=== PATIENT | male | born 1955 | race Caucasian/White ===

== ENCOUNTER 2017-05-25 21:43 | Emergency (ER) | payer OTHER ==
[~2017-05-25] VITALS: Ht 180.3 cm; Wt 84.0 kg
[2017-05-25 22:28] LABS: BASO % 0.4 % (0.0-1.0); EOS # 0.2 10^3/uL (0.0-0.50); EOS % 2.6 % (0.0-3.0); IMMATURE GRANULOCYTE % 0.3 % (0-0); LYMPH # 2.7 10^3/uL (1.5-4.5); LYMPH % 29.9 % (24.0-44.0); MEAN CORPUSCULAR HEMOGLOBIN 31.1 pg (27.0-33.0); MEAN CORPUSCULAR HGB CONC 34.1 g/dl (32.0-36.5); MEAN CORPUSCULAR VOLUME 91.3 fl (80.0-96.0); MONO # 0.8 10^3/uL (0.0-0.8); MONO % 8.9 % (0.0-5.0); NEUTROPHILS # 5.2 10^3/uL (1.8-7.7); NEUTROPHILS % 57.9 % (36.0-66.0); PLATELET COUNT, AUTOMATED 225 10^3/uL (150-450); RED CELL DISTRIBUTION WIDTH 13.4 % (11.5-14.5); WHITE BLOOD COUNT 8.9 10^3/uL (4.0-10.0)
[2017-05-25] MEDS ORDERED: NS 1,000 ML IV ONE (22:30)
[2017-05-25] MEDS ORDERED: ASPIRIN 325 MG TAB PO ONE (22:30)
[2017-05-25 22:31] LABS: INR 0.91
[2017-05-25 22:38] LABS: ANION GAP 11 MEQ/L (8-16); BLOOD UREA NITROGEN 10 MG/DL (7-18); CALCIUM LEVEL 8.4 MG/DL (8.5-10.1); CARBON DIOXIDE LEVEL 21 MEQ/L (21-32); CHLORIDE LEVEL 109 MEQ/L (98-107); CREATININE FOR GFR 0.71 MG/DL (0.70-1.30); GLOMERULAR FILTRATION RATE > 60.0 (>56); GLUCOSE, FASTING 183 MG/DL (70-105); POTASSIUM SERUM 4.1 MEQ/L (3.5-5.1); SODIUM LEVEL 141 MEQ/L (136-145)
[2017-05-26] MEDS ORDERED: METOPROLOL TART 25 MG TABLET PO ONE (02:00)
[2017-05-26 02:09] VITALS: BP 118/71
[2017-05-26 02:52] VITALS: BP 125/65
--- NOTE | 2017-05-26 07:08 | ECGEPIP ---
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
--- NOTE | 2017-05-26 07:09 | ECGEPIP ---
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
== END 2017-05-26 02:54 | disposition home or self-care (01) ==
LOC: M ED 21:43
DX: I48.2 Chronic atrial fibrillation (principal); F10.10 Alcohol abuse, uncomplicated; F17.200 Nicotine dependence, unspecified, uncomplicated; Z91.013 Allergy to seafood

== ENCOUNTER 2020-06-08 03:56 | Inpatient (IN) | payer OTHER ==
[~2020-06-08] VITALS: Ht 180.3 cm; Wt 82.5 kg
[2020-06-08] VITALS (16 sets, daily range): BP systolic 132–193; BP diastolic 65–90
[2020-06-08] MEDS ORDERED: ACET-683 PO (04:15)
[2020-06-08] MEDS ORDERED: VITMTA PO (04:35)
[2020-06-08] MEDS ORDERED: METF-839 PO (04:35)
[2020-06-08] MEDS ORDERED: IPRA0.00 NEB (04:35)
[2020-06-08] MEDS ORDERED: PROAAER10 INH (04:35)
[2020-06-08] MEDS ORDERED: PRED20TA PO (04:35)
[2020-06-08] MEDS ORDERED: ASPI-531 PO (04:35)
[2020-06-08] MEDS ORDERED: ATOR1TAB21 PO (04:35)
[2020-06-08] MEDS ORDERED: INCR1INH INH (04:35)
[2020-06-08] MEDS ORDERED: SYMB80INH INH (04:35)
[2020-06-08 04:45] LABS: BASO % 0.2 % (0.0-1.0); EOS # 0.1 10^3/uL (0.0-0.5); HEMATOCRIT 39.2 % (42.0-52.0); HEMOGLOBIN 12.5 g/dl (13.5-17.5); LYMPH # 2.6 10^3/uL (1.5-5.0); LYMPH % 19.2 % (24.0-44.0); MEAN CORPUSCULAR HEMOGLOBIN 28.6 pg (27.0-33.0); MEAN CORPUSCULAR HGB CONC 31.9 g/dl (32.0-36.5); MEAN CORPUSCULAR VOLUME 89.7 fl (80.0-96.0); MONO # 1.1 10^3/uL (0.0-0.8); NEUTROPHILS # 9.5 10^3/uL (1.5-8.5); NEUTROPHILS % 70.9 % (36.0-66.0); PLATELET COUNT, AUTOMATED 320 10^3/uL (150-450); RED BLOOD COUNT 4.37 10^6/uL (4.30-6.10); WHITE BLOOD COUNT 13.5 10^3/uL (4.0-10.0)
[2020-06-08] MEDS ORDERED: methylPREDNISolone 125MG 2ML VIAL IV ONE (04:45)
[2020-06-08 05:00] LABS: INR 0.96; PARTIAL THROMBOPLASTIN TIME 26.6 SECONDS (24.2-38.5)
[2020-06-08 05:20] LABS: BLOOD UREA NITROGEN 17 MG/DL (7-18); CALCIUM LEVEL 9.3 MG/DL (8.8-10.2); CARBON DIOXIDE LEVEL 26 MEQ/L (21-32); CHLORIDE LEVEL 104 MEQ/L (98-107); CK-MB VALUE MASS 3.2 NG/ML (<3.6); CPK CREATINE PHOSPHOKINASE 51 U/L (39-308); FREE T4 1.34 NG/DL (0.76-1.46); GLOMERULAR FILTRATION RATE > 60.0 (>49); GLUCOSE, FASTING 111 MG/DL (70-100); MAGNESIUM LEVEL 2.2 MG/DL (1.8-2.4); MB/CK RELATIVE INDEX 6.27 (< OR =4); NT-PRO BNP 327 PG/ML (<125); POTASSIUM SERUM 4.1 MEQ/L (3.5-5.1); SODIUM LEVEL 139 MEQ/L (136-145); TROPONIN I < 0.02 NG/ML (< 0.10)
[2020-06-08 05:25] LABS: RSV AMPLIFICATION NEGATIVE (NEGATIVE)
--- NOTE | 2020-06-08 05:44 | ECGEPIP ---
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
[2020-06-08] MEDS: COMBIVENT RESPIMAT 100-20MCG INHALER 4GM INH SCH ×3 (05:55→07:18)
--- NOTE | 2020-06-08 07:03 | REPVR ---
PROCEDURE INFORMATION: Exam: XR Chest, 1 View Exam date and time: 06/08/2020 6:00 AM Age: 64 years old Clinical indication: Chest pain; Type not specified TECHNIQUE: Imaging protocol: XR of the chest Views: 1 view. COMPARISON: CR CHEST 2 VIEW 04/20/2017 11:53 AM FINDINGS: Lungs: Extensive right-sided airspace disease and pleural effusion obscuring the right heart border and right hemidiaphragm. COPD and interstitial prominence. Heart/Mediastinum: No cardiomegaly. Bones/joints: Cervical spine fusion. Degenerative change. IMPRESSION: Extensive right-sided airspace disease and pleural effusion obscuring the right heart border and right hemidiaphragm. Electronically signed by: Sergey So On 06/08/2020 07:03:42 AM
[2020-06-08] MEDS ORDERED: ISOVUE-370 76% 100ML VIAL As Ordered ONE (07:30)
--- NOTE | 2020-06-08 08:10 | REPVR ---
PROCEDURE INFORMATION: Exam: CT Angiography Chest With Contrast Exam date and time: 06/08/2020 6:52 AM Age: 64 years old Clinical indication: Shortness of breath; Chest pain; Additional info: Chest pain, SOB TECHNIQUE: Imaging protocol: Computed tomographic angiography of the chest with intravenous contrast. 3D rendering (Not supervised by radiologist): MIP and/or 3D reconstructed images were created by the technologist. Radiation optimization: All CT scans at this facility use at least one of these dose optimization techniques: automated exposure control; mA and/or kV adjustment per patient size (includes targeted exams where dose is matched to clinical indication); or iterative reconstruction. Contrast material: ISOVUE 370; Contrast volume: 75 ml; Contrast route: INTRAVENOUS (IV); COMPARISON: CR PORTABLE CHEST X-RAY 06/08/2020 6:04 AM FINDINGS: The examination performed is mildly degraded by motion artifact. Pulmonary arteries: Multiple left-sided pulmonary emboli, most conspicuously visualized in the proximal left lower lobe pulmonary artery. Aorta: Normal caliber of the thoracic aorta. Lungs: COPD, interstitial prominence, chronic granulomatous disease, and parenchymal stranding. Asymmetric right-sided airspace disease, disproportionately lower lobe in distribution. Pleural space: Large right pleural effusion. Heart: No cardiomegaly or right ventricular strain at this time. Lymph nodes: Subcentimeter lymph nodes. Upper abdomen: Questionable wall thickening in the nondistended stomach. Diverticula. Bones/joints: Cervical spine fusion. Degenerative change. IMPRESSION: 1. Multiple left-sided pulmonary emboli, most conspicuously visualized in the proximal left lower lobe pulmonary artery. 2. COPD and asymmetric right-sided airspace disease, disproportionately lower lobe in distribution. 3. Large right pleural effusion. 4. Additional findings as described above. The aforementioned findings initiated a critical results communication pathway. An addendum will be issued at the time of clincian notification. Electronically signed by: Sergey So On 06/08/2020 08:10:34 AM
[2020-06-08] MEDS ORDERED: HEPARIN DRIP 25,000 UNITS in IV 1 EA IV SCH (08:20)
[2020-06-08] MEDS ORDERED: HEPARIN SOD (PORCINE) 5000UNITS/ML 1ML VIAL/SYRINGE IV ONE (08:30)
[2020-06-08] MEDS ORDERED: LISI-542 PO (08:33)
[2020-06-08] MEDS ORDERED: SYMB16INH INH (08:33)
[2020-06-08] MEDS ORDERED: PRED10TA2 PO (08:33)
[2020-06-08] MEDS ORDERED: KCL 20MEQ IN D5/NS 1000ML 1,000 ML IV SCH (08:59)
[2020-06-08] MEDS: SYMBICORT 160/4.5MCG INHALER 6GM INH SCH ×2 (09:00→19:42)
[2020-06-08] MEDS ORDERED: PERCOCET 5MG/325MG TAB PO PRN (09:00)
[2020-06-08] MEDS ORDERED: NORCO, ANEXSIA 5/325MG TABLET (HYDROcodone/ACETAMINOPHEN) PO PRN (09:00)
[2020-06-08] MEDS: DOCUSATE SODIUM 100MG CAPSULE PO SCH ×2 (09:00→21:25)
[2020-06-08] MEDS ORDERED: LEVALBUTEROL 1.25 MG/0.5 ML CONCENTRATE NEB NEB PRN (09:00)
[2020-06-08] MEDS: MOM 30ML SUSPENSION UDC PO SCH (09:00)
[2020-06-08] MEDS ORDERED: ACETAMINOPHEN TAB 650MG DOSE (2X325MG) PO PRN (09:00)
[2020-06-08] MEDS ORDERED: BISACODYL 10 MG SUPP PR PRN (09:00)
[2020-06-08] MEDS ORDERED: ONDANSETRON 4MG/2ML VIAL IV PRN (09:00)
[2020-06-08] MEDS ORDERED: IPRATROPIUM 0.5MG/ALBUTEROL 2.5MG INH SOL UD 3ML (DUONEB) NEB PRN (09:15)
[2020-06-08] MEDS ORDERED: DEXTROSE 50% 50 ML SYRINGE IV PRN (09:15)
[2020-06-08] MEDS ORDERED: GLUCAGON INJ 1MG VIAL SC PRN (09:15)
[2020-06-08] MEDS ORDERED: GLUCOSE 4GM CHEW TABLET PO PRN (09:15)
[2020-06-08] MEDS ORDERED: ALBUTEROL 90 MCG/ACT 8GM HFA INHALER INH PRN (09:15)
[2020-06-08] MEDS ORDERED: ACETAMINOPHEN TAB 650MG DOSE (2X325MG) PO SCH (09:15)
[2020-06-08 09:45] LABS: ALBUMIN 3.2 GM/DL (3.2-5.2); ALT/SGPT 32 U/L (12-78); BILIRUBIN,TOTAL 0.6 MG/DL (0.2-1.0); CHOLESTEROL LEVEL 186 MG/DL (< 200); LDH LACTATE DEHYDROGENASE 165 U/L (87-241); PHOSPHORUS LEVEL 3.6 MG/DL (2.5-4.9); TOTAL PROTEIN 6.9 GM/DL (6.4-8.2); TRIGLYCERIDES LEVEL 173 MG/DL (<150)
[2020-06-08] MEDS ORDERED: flumazeniL 0.5 MG/5 ML VIAL As Ordered ONE (10:15)
[2020-06-08] MEDS ORDERED: MIDAZOLAM INJ 2MG/2ML VIAL (J2250 PER 1MG) As Ordered ONE (10:15)
[2020-06-08] MEDS ORDERED: LIDOCAINE 1% MDV 20ML VIAL As Ordered ONE (10:16)
[2020-06-08 10:44] LABS: ABG BASE EXCESS 0.9 (-2.0-2.0); ABG HCO3 23.7 MEQ/L (22.0-26.0); ABG O2 SATURATION 92.3 % (95.0-99.0); ABG PARTIAL PRESSURE CO2 32.6 mmHg (35.0-45.0); ABG PARTIAL PRESSURE O2 60.4 mmHg (75.0-100.0); ABG STANDARD HCO3 25.1 MEQ/L (22.0-26.0); ABG TOTAL CO2 24.7 MEQ/L (23.0-31.0); ABG pH (ARTERIAL) 7.479 UNITS (7.350-7.450)
[2020-06-08] MEDS: HumaLOG INSULIN (NovoLOG) PER UNIT SC SCH ×3 (11:37→21:00)
[2020-06-08] MEDS: ASPIRIN 81 MG ENTERIC TAB PO SCH (11:57)
[2020-06-08] MEDS: lisinopriL 5 MG TAB PO SCH (11:58)
[2020-06-08] MEDS: MULTIVITAMINS/MINERALS THERAP 1 TAB PO SCH (11:58)
[2020-06-08] MEDS: ATORVASTATIN 20 MG TAB PO SCH (11:58)
[2020-06-08] MEDS: PANTOPRAZOLE 40MG TAB (PROTONIX) PO SCH (11:58)
--- NOTE | 2020-06-08 12:49 | HPEPDOC ---
General Date of Admission Jun 08, 2020 at 09:17 Date of Service: Jun 08, 2020 Attending Physician: DESTINEY LAUGHLIN DO Chief Complaint The patient is a 64-year-old male admitted with a reason for visit of Pleural Effusion,Rt,Pulmonary Embolism. Source: Patient, RN/MD History of Present Illness Mr. Ratliff is a 64 year old male with COPD and right lung nodule who is here for dyspnea 2/2 large right pleural effusion and multiple left sided pulmonary embol i. He tells me that about six weeks ago, he started to have dyspnea which progressively worsened. He saw his account manager sales representative last Monday and were planning to do a biopsy of his right lung nodule. Prior to doing this procedure, he wanted the patient's respiratory status to be better per patient report. Patient was on Budesonide/Formoterol, Umeclidinium, and a prednisone taper (40mg qD and taper by 10mg every 4 days starting on 06/01/2020. He will start 20mg qD tomorrow). His breathing did not improve and he came into the ED. While in the ED, he required 4L of NC to maintain saturation of 89. He was given solumedrol and duonebs. CTA demonstrated a large right pleural effusion and left pulmonary embolus. Dr. Bethea, CT surgery, was contacted. The plan is to start the heparin drip now. Then when ready for right chest tube to hold the heparin drip for the procedure. Otherwise, when I saw the patient, he was feeling dyspneic. He had a dry cough, but suspects it was from the NC. He reported right chest, neck, and side pain which is suspected to be from the pleural effusion. Patient will be admitted for acute hypoxic respiratory failure secondary to an acute large right pleural effusion and acute left pulmonary embolism Home Medications Scheduled Aspirin (Aspirin EC) 81 Mg Tablet.dr, 81 MG PO DAILY, (Reported) Atorvastatin Calcium (Atorvastatin Calcium) 20 Mg Tablet, 20 MG PO DAILY, (Reported) Budesonide/Formoterol (Symbicort 160-4.5 Mcg Inhaler) 6 Gm Hfa.aer.ad, 2 PUFF INH BID, (Reported) Lisinopril (Lisinopril) 5 Mg Tablet, 5 MG PO DAILY, (Reported) Metformin HCl (Metformin HCl) 500 Mg Tablet, 500 MG PO DAILY, (Reported) Multivitamins (Thera M Plus Tablet) 1 Each Tablet, 1 TAB PO DAILY, (Reported) Prednisone (Prednisone) 10 Mg Tablet, 30 MG PO DAILY, (Reported) TAPER DOSE STARTED 06/01/20 - 40MG DAILY x 4 DAYS, 30MG DAILY X 4 DAYS, 20MG DAILY X 4 DAYS, 10MG DAILY X 4 DAYS - DUE TO BEGIN 20MG ON 06/09/20 Umeclidinium [place] (Incruse Ellipta) 62.5 Mcg Blst.w.dev, 1 PUFF INH DAILY, (Reported) Scheduled PRN Acetaminophen (Acetaminophen) 500 Mg Tablet, 1,000 MG PO Q6H PRN for PAIN, (Reported) Albuterol Sulfate (Proair Hfa) 8.5 Gm Hfa.aer.ad, 2 PUFF INH Q6H PRN for SHORTNESS OF BREATH, (Reported) Ipratropium/Albuterol Sulfate (Iprat-Albut 0.5-3(2.5) mg/3 ml) 3 Ml Ampul.neb, 1 VIAL NEB QID PRN for SHORTNESS OF BREATH, (Reported) Allergies Coded Allergies: shellfish derived (Verified Allergy, Intermediate, hives, 06/08/20) Past Medical History Medical History 1. Diabetes mellitus type 2 2. COPD 3. Atrial fibrillation Surgical History 1. Neck surgery (cage) 2. Left shoulder surgery 3. Left carpal tunnel 4. Cataracts Family History Father: at 78 from [place] Mother: at 84 from brain aneurysm Social History * Smoker: former Smoker (Quit smoking 1.5 years ago. <1 PPD, Smoked for about 17 years) Alcohol: occationally (About 12 beers a week, last drink was 4 days ago) Drugs: denies A-FIB/CHADSVASC A-FIB History Current/History of A-Fib/PAF?: Yes Current PO Anticoag Therapy: No (On aspirin) Age/Risk Factor Scoring CHADSVASC: CHADSVASC Response (Comments) Value Age Risk Factor Age < 65 years old 0 Gender Risk Factor Male 0 Hx of CHF No 0 Hx of HTN No 0 Hx of Stroke/TIA/or VTE No 0 Hx of Diabetes Yes 1 Hx of Vascular Disease No 0 Total 1 Treatment Treatment ordered: Other (Heparin for PE) Other anticoagulant ordered: IV Heparin for PE Review of Systems Constitutional: Denies: Chills, Fever Eyes: Denies: Pain ENT: Denies: Sore Throat Skin: Denies: Rash Pulmonary: Reports: Dyspnea, Cough (dry) Cardiovascular: Reports: Chest Pain (right sided) Gastrointestinal: Reports: Constipation (Last BM yesterday); Denies: Nausea, Abdominal Pain Genitourinary: Denies: Dysuria Hematologic: Denies: Bruising Endocrine: Denies: Polydipsia, Polyphagia (eating less) Neurological: Denies: Weakness Physical Examination General Exam: Positive: Alert, Cooperative Eye Exam: Positive: EOMI; Negative: Sclera icteric ENT Exam: Positive: Tongue Midline Neck Exam: Positive: Supple Chest Exam: Positive: Other (Absent in the right lower lung, otherwise clear on the left lung) Heart Exam: Positive: Rate Normal, Regular Rhythm Abdomen Exam: Positive: Normal bowel sounds, Soft; Negative: Tenderness Extremity Exam: Negative: Edema Skin Exam: Positive: Nl turgor and temperature Neuro Exam: Positive: Cranial Nerves 3-12 NL Psych Exam: Positive: Mental status NL, Mood NL Vital Signs Vital Signs Date Time Temp Pulse Resp B/P (MAP) Pulse Ox O2 Delivery O2 Flow Rate FiO2 06/08/20 10:30 97.7 148/78 (101) 06/08/20 10:24 84 91 06/08/20 09:09 22 Nasal Cannula 4.0 Laboratory Data Labs 24H Laboratory Tests 2 06/08/20 04:28: Coronavirus (COVID-19)(PCR) NEGATIVE, Influenza Type A (RT-PCR) NEGATIVE, Influenza Type B (RT-PCR) NEGATIVE, Respiratory Syncytial Virus (PCR) NEGATIVE 06/08/20 04:29: Immature Granulocyte % (Auto) 0.7, Neutrophils (%) (Auto) 70.9H, Lymphocytes (%) (Auto) 19.2L, Monocytes (%) (Auto) 8.0H, Eosinophils (%) (Auto) 1.0, Basophils (%) (Auto) 0.2, Neutrophils # (Auto) 9.5H, Lymphocytes # (Auto) 2.6, Monocytes # (Auto) 1.1H, Eosinophils # (Auto) 0.1, Basophils # (Auto) 0.0, Nucleated Red B lood Cells % (auto) 0.0, Prothrombin Time 13.0, Prothromb Time International Ratio 0.96, Activated Partial Thromboplast Time 26.6, Anion Gap 9, Glomerular Filtration Rate > 60.0, Calcium Level 9.3, Phosphorus Level 3.6, Magnesium Level 2.2, Total Bilirubin 0.6, Aspartate Amino Transf (AST/SGOT) 9, Alanine Aminotransferase (ALT/SGPT) 32, Alkaline Phosphatase 76, Lactate Dehydrogenase 165, Total Creatine Kinase 51, Creatine Kinase MB 3.2, Creatine Kinase MB Relative Index 6.27H, Troponin I < 0.02, QU-Ign-E-Type Natriuretic Peptide 327H, Total Protein 6.9, Albumin 3.2, Albumin/Globulin Ratio 0.9, Triglycerides Level 173H, Cholesterol Level 186, Thyroid Stimulating Hormone (TSH) 2.700, Free Thyr oxine 1.34 06/08/20 10:23: Blood Gas Bicarbonate Standard 25.1, Arterial Blood pH 7.479H, Arterial Blood Partial Pressure CO2 32.6L, Arterial Blood Partial Pressure O2 60.4L, Arterial Blood Total CO2 24.7, Arterial Blood HCO3 23.7, Arterial Blood Base Excess 0.9, Arterial Blood Oxygen Saturation 92.3L CBC/BMP Laboratory Tests 06/08/20 04:29 Assessment/Plan Mr. Ratliff is a 64 year old male with COPD and right lung nodule who is here for dyspnea 2/2 large right pleural effusion and multiple left sided pulmonary emboli. Dr. Bethea, CT surgery has been contacted and consulted. We will treat the left sided pulmonary emboli with IV heparin drip as he will be having a procedure. Planning for right thoracentesis for large pleural effusion today. Plan / VTE VTE Prophylaxis Ordered?: Yes Plan Plan 1. Acute hypoxic respiratory failure -Requiring 4L of NC -Difficulty completing sentences -Secondary to large right pleural effusion and left pulmonary embolus 2. Large right pleural effusion -History of smoking with right lung nodule -CT surgery following, recommendations appreciated -Planing for thoracentesis today -Suspecting malignant related with history of smoking and right lung nodule 3. Multiple left-sided pulmonary emboli -Suspecting malignancy as the cause -IV heparin at this time due to planned procedure 4. COPD -Stable, no wheezing at this time -He was placed on a steroid taper on 06/01/2020. Start at 40mg qD and taper by 10mg every 4 days. Tomorrow, he will start on 20mg qD. -Continue to taper prednisone off -Continue inhalers and rescue inhaler 5. Right lung nodule -Followed by Dr. Walker outpatient 6. Diabetes mellitus -Hold metformin -Insulin sliding scale 7. Hypertension -Continue Lisinopril 8. Paroxysmal atrial fibrillation -[id number] score of 1 -He follows with cardiology outpatient. Patient reports that he did have discussion about anticoagulation and decided to do aspirin since he has a [id number] score of 1. He is aware that the risk of atrial fibrillation is an embolic stoke. -Not in atrial fibrillation at this time. He says he has been cardioverted out of atrial fibrillation 9. DVT ppx -On IV heparin per PE protocol DESTINEY LAUGHLIN DO Jun 08, 2020 11:56
[2020-06-08] MEDS ORDERED: LIDOCAINE 1% MDV 20ML VIAL SC ONE (13:15)
[2020-06-08] MEDS ORDERED: MIDAZOLAM INJ 2MG/2ML VIAL (J2250 PER 1MG) IV ONE ×3 (13:20→14:00)
[2020-06-08] MEDS: KETOROLAC 30 MG/ML 1ML VIAL IV SCH ×2 (13:40→21:25)
--- NOTE | 2020-06-08 14:00 | REP ---
INDICATION: s/p chest tube. COMPARISON: 06/08/2020, 6:05 a.m.. TECHNIQUE: Single frontal portable view of the chest is performed. FINDINGS: A right chest tube is noted inferiorly. The right pleural effusion has essentially resolved. Patchy parenchymal opacities are seen in the right lung base, improved and likely representing mild residual atelectasis/infiltrate. Left lung is unchanged in appearance. Heart appears to be upper limits of normal in size. IMPRESSION: Placement of right chest tube with previously noted right pleural effusion is centrally resolved. Mild residual right base atelectasis/infiltrate. No pneumothorax. <Electronically signed by Jhoan Reed > 06/08/20 [id number]
[2020-06-08] MEDS: PERCOCET 5MG/325MG TAB PO PRN ×2 (14:14→21:28)
[2020-06-08 14:18] LABS: PH BODY FLUID 7.599 UNITS (NOT ESTABLISHED); SOURCE, BODY FLUID pH PLEURAL
[2020-06-08 14:25] LABS: APPEARANCE, BODY FLUID HAZY (CLEAR); PLEURAL FL COLOR YELLOW (COLORLESS); SOURCE, BODY FLUID PLEURAL
[2020-06-08] MEDS ORDERED: SLF 3 ML SYR IV PRN (14:30)
[2020-06-08 14:58] LABS: AMYLASE, BODY FLUID 52 U/L (NOT ESTABLISHED); CHOLESTEROL, BODY FLUID 92 MG/DL (NOT ESTABLISHED); LDH, BODY FLUID 399 U/L (NOT ESTABLISHED); SOURCE, BODY FLUID ALBUMIN PLEURAL; SOURCE, BODY FLUID AMYLASE PLEURAL; SOURCE, BODY FLUID CHOL PLEURAL; SOURCE, BODY FLUID GLUCOSE PLEURAL; SOURCE, BODY FLUID LDH PLEURAL; SOURCE, BODY FLUID TOT PROTEIN PLEURAL; SOURCE, BODY FLUID TRIG PLEURAL; TOTAL PROTEIN, BODY FLUID 4.9 G/DL (NOT ESTABLISHED); TRIGLYCERIDE, BODY FLUID 46 MG/DL (NOT ESTABLISHED)
[2020-06-08] MEDS: LEVALBUTEROL 1.25 MG/0.5 ML CONCENTRATE NEB NEB SCH ×2 (15:39→19:42)
--- NOTE | 2020-06-08 16:02 | CR ---
CONSULTATION DATE: 06/08/2020 REASON FOR CONSULTATION: The patient is seen at the request of Dr. George in the emergency room from the hospital service for shortness of breath and a large pleural effusion. HISTORY OF PRESENT ILLNESS: The patient is a 64-year-old white male whose acute story starts yesterday when he was shoveling some snow and all of a sudden became short of breath, gasping for air with accompanying chest pain on the right side. He felt his heart racing. His story actually starts about four weeks ago when he noticed right-sided chest pain, which was dull and nagging, proceeding to a more intense type ache. He does state that he fell and thought that he had broken some ribs and therefore, attributed his pain to that. That was, however, about four months ago. He has also complained of increasing shortness of breath slowly coming on over the past four weeks with orthopnea. He denies cough or sputum production. There has been no hemoptysis. There is no fever, chills, or sweats. There are no night sweats. He has had a decrease in appetite and has lost about 20 pounds in the last four weeks. There is no actual dysphagia, however. He denies peripheral edema. He was put on oxygen about four weeks ago by his primary care physician, Dr. Beard. He was seen by Dr. Amaro of pulmonology on 06/01/2020, where he was noted to have a spiculated right upper lobe mass. PAST MEDICAL HISTORY: 1. Diabetes. 2. Hypertension. 3. COPD. 4. Remote history of atrial fibrillation not on anticoagulants. PAST SURGICAL HISTORY: 1. Neck surgery with a cage. 2. Cataract repair. TRAVEL HISTORY: He has traveled to [place] and all over the 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 EXPOSURES: He has a mixed breed dog with chickens and goats. He has had chickens for about four years. Occasionally he needs to clear the chicken coops. There is no exposure to tuberculosis that he knows of. 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 HABITS: He is now a reformed smoker having stopped in 2019. He used to, however, smoke one pack per day of [employer]. He drinks about 12 beers a week and denies illicit drugs. FAMILY HISTORY: Not pertinent to the acute situation. He does have multiple family members with diabetes and asthma. REVIEW OF SYSTEMS: Constitutional: See HPI. Without fever, chills, sweats, or night sweats. He does have a 20 pound weight loss. Eyes: Without diplopia, without amaurosis fugax, and without prior jaundice. Nose: Has had epistaxis occasionally with his oxygen. Mouth: Has upper and lower dentures. Respiratory: See HPI. Cardiac: See HPI. Denies prior myocardial infarction or intermittent claudication. Has the above history of atrial fibrillation about five years ago. GI: Without nausea, vomiting, diarrhea, constipation, melena, hematochezia, abdominal pain, or hematemesis. : Without dysuria, hematuria, or prior renal stones. Neurologic: Without paresthesias, paralysis, or prior seizures. Psychiatric: Without pathological anxieties, depressions, or psychosis. Endocrine: With diabetes. Without thyroid disease. Hematologic: Without prolonged bleeding times. PHYSICAL EXAMINATION: GENERAL: Well-developed and well-nourished white male in mild distress with shortness of breath and pain. VITAL SIGNS: Temperature 98.9, pulse 88 with a regular rate and rhythm in sinus rhythm. Respiratory rate of 24 without the use of accessory muscles. He was 91% saturated on 4 liters nasal cannula and his blood pressure is ranging between 135/66. HEENT: Eyes with pupils equal, round, reactive to light. Extraocular movements intact. Sclerae nonicteric. Head is normocephalic. Nose without deformity. Mouth shows the mucous membranes to be pink and moist. Lips and gums without lesions. There is no thrush. Dentures are in place. NECK: Supple. There is no jugular venous distention (JVD). No subcutaneous emphysema. Trachea is midline. There is no thyromegaly or lymphadenopathy. He has 2+ carotid upstrokes without bruits. LUNGS: Show markedly decreased breath sounds with a dull percussion note on the right side. He has E:A egophony on the right side. The left lung shows normal vesicular sounds. Percussion note is full the diaphragm on the left. CARDIAC: Without murmurs, clicks, gallops, or rubs. I cannot feel his PMI. S1 and S2 are normal. ABDOMEN: Soft and nontender. Bowel sounds are positive. There is no hepatomegaly. No CVA tenderness. EXTREMITIES: Show no pretibial edema. No calf tenderness. No differential swelling of the upper extremities. SKIN: Warm, dry, and perfused without cyanosis or mottling, including that of the nail beds and knees. NEUROLOGIC: Shows II through XII intact. Normal gross motor, gross sensation intact. Gait is not tested. PSYCHIATRIC: Shows him to be awake, alert, and oriented x3 with appropriate mood and affect and conversational. DIAGNOSTIC STUDIES: His white count is 13.5 with a hemoglobin and hematocrit of 12.5 and 39.2 respectively with a platelet count of 320,000. Differential shows 70% neutrophils, 19% lymphocytes, and 8% monocytes. There are no immature forms or toxic granulations. Chemistries show normal electrolytes with a BUN and creatinine of 17 and 0.8. Glucose is 11 with a calcium of 9.3. Magnesium is 2.2. Albumin is 3.2 with a normal AST and ALT of 9 and 32 respectively. Troponin is less than 0.02 and his TSH is 2.7. His PT/INR is 13.0 and 0.96 respectively with a PTT of 26.6 seconds. He is COVID negative. His chest x-ray shows an opacity in the right lower hemithorax consistent with fluid. This was done portably. His CT scan done under angiographic protocol confirms a large right pleural effusion. There also is a spiculated lung mass in the right upper lobe, which measures 3 x 1.5 cm. The remainder of the lung is compressed, but the mass is quite distinct from the compression. There are air bronchograms. Most significantly, however, he has multiple left-sided pulmonary emboli. It was seen in both the upper and lower lobes and scattered throughout the lower lobe. I do not see anything on the right; however, most of the arteries are compressed. There is a slight shift to the left in the mediastinum. There is no pericardial effusion. The liver looks to be normal with smooth edges. Adrenals have a normal configuration as does his pancreas. I see no other masses in his liver. I see no rib fractures new or old on the CT scan on the right side. Neither are there rib fractures on the left side new or old. IMPRESSION: 1. Pleural effusion of unknown origin possibly malignant. 2. Multiple pulmonary emboli. 3. Diabetes. 4. Hypertension. 5. Chronic obstructive pulmonary disease (COPD). PLAN AND DISCUSSION: It should also be noted I do not see mediastinal lymphadenopathy on the CT. His lung blackmon show extensive emphysematous changes. I will immediately drain him. He has already been started on anticoagulation of a heparin drip per my request. I will stop the heparin drip, then place a chest tube, and then restart the heparin drip. I suspect there is at least 2 to 2.5 liters in his chest. This will be sent for all the requisite studies to include cytologies, hematologies, bacteriologies, and chemistries. We will need to be aware of the possibility of ensuing post expansion pulmonary edema and he may get worse before he gets better. I have explained to him that he could even need intubating temporarily. According to Dr. Amaro's note he was due to undertake a PET scan, which has not yet been done.
[2020-06-08] MEDS ORDERED: HEPARIN SOD (PORCINE) 5000UNITS/ML 1ML VIAL/SYRINGE IV PRN (16:15)
--- NOTE | 2020-06-08 16:16 | RO ---
OPERATIVE NOTE DATE OF OPERATION: 06/08/2020 PREPROCEDURE DIAGNOSIS: Right pleural effusion. PREPROCEDURE DIAGNOSIS: Right pleural effusion. SURGEON: Ousmane Bethea M.D. PROCEDURE: Insertion of right lateral chest tube under moderate sedation. FINDINGS: Chest tube eluded over 3 liters of serous fluid. This was sent for the requisite studies of chemistries, cytologies, hematologies, and bacteriologies. DESCRIPTION OF PROCEDURE: Under satisfactory moderate sedation eventually achieved with 6 mg of Versed, the patient was prepped and draped in the usual sterile fashion. An incision was made in the mix axillary line in and around the sixth intercostal space. A tunnel was created in the chest without after infiltrating the skin subcutaneous tissue, muscles, and pleura with 1% Lidocaine. A #24 chest tube was placed without difficulty and secured to the chest wall with a #2 Tyvek suture. The patient tolerated the procedure well and a chest x-ray is pending. INCOMPLETE /verified/ml MTDD
[2020-06-08] MEDS: SLF 3 ML SYR IV SCH (21:26)
[2020-06-09] VITALS: BP 129/67
[2020-06-09] MEDS: LEVALBUTEROL 1.25 MG/0.5 ML CONCENTRATE NEB NEB SCH ×4 (02:01→20:00)
[2020-06-09] MEDS: KETOROLAC 30 MG/ML 1ML VIAL IV SCH ×4 (03:13→20:57)
[2020-06-09 04:00] VITALS: BP 134/73
[2020-06-09 04:58] LABS: BASO % 0.2 % (0.0-1.0); EOS % 0.1 % (0.0-3.0); HEMATOCRIT 40.7 % (42.0-52.0); HEMOGLOBIN 13.5 g/dl (13.5-17.5); LYMPH # 1.6 10^3/uL (1.5-5.0); LYMPH % 9.1 % (24.0-44.0); MEAN CORPUSCULAR HEMOGLOBIN 29.7 pg (27.0-33.0); MEAN CORPUSCULAR HGB CONC 33.2 g/dl (32.0-36.5); MEAN CORPUSCULAR VOLUME 89.5 fl (80.0-96.0); MONO # 1.4 10^3/uL (0.0-0.8); MONO % 7.5 % (0.0-5.0); NEUTROPHILS # 14.8 10^3/uL (1.5-8.5); NEUTROPHILS % 82.5 % (36.0-66.0); PLATELET COUNT, AUTOMATED 313 10^3/uL (150-450); RED BLOOD COUNT 4.55 10^6/uL (4.30-6.10); WHITE BLOOD COUNT 17.9 10^3/uL (4.0-10.0)
[2020-06-09 05:19] LABS: BLOOD UREA NITROGEN 17 MG/DL (7-18); CALCIUM LEVEL 8.7 MG/DL (8.8-10.2); CARBON DIOXIDE LEVEL 28 MEQ/L (21-32); CHLORIDE LEVEL 101 MEQ/L (98-107); CREATININE FOR GFR 0.78 MG/DL (0.70-1.30); GLOMERULAR FILTRATION RATE > 60.0 (>49); GLUCOSE, FASTING 148 MG/DL (70-100); POTASSIUM SERUM 4.5 MEQ/L (3.5-5.1); SODIUM LEVEL 137 MEQ/L (136-145)
[2020-06-09 05:37] LABS: ABG BASE EXCESS 1.1 (-2.0-2.0); ABG HCO3 24.7 MEQ/L (22.0-26.0); ABG O2 SATURATION 97.1 % (95.0-99.0); ABG PARTIAL PRESSURE CO2 36.3 mmHg (35.0-45.0); ABG STANDARD HCO3 25.4 MEQ/L (22.0-26.0); ABG TOTAL CO2 25.8 MEQ/L (23.0-31.0); ABG pH (ARTERIAL) 7.451 UNITS (7.350-7.450)
[2020-06-09] MEDS: SLF 3 ML SYR IV SCH ×3 (05:56→20:58)
--- NOTE | 2020-06-09 07:28 | ECHO ---
DATE OF PROCEDURE: 06/08/2020 Age: 64 Gender: Male REFERRING PHYSICIAN: John Arrington DO REASON FOR STUDY: Shortness of breath. 2D MEASUREMENTS: IVS 0.9 cm LV 5.5 cm LVPW 1.0 cm LA 3.7 cm Aorta 3.2 cm RV 4.2 IVC 1.1 cm DOPPLER MEASUREMENT Peak velocity across the aortic valve 1.1 msec Mitral E 0.82 Mitral A 0.7 with a ratio of 1.3 Maximum tricuspid valve velocity 3.2 msec 2D COMMENTS: 1. Technically limited study due to poor acoustic window. 2. Normal left ventricular size, wall thickness, and normal global left ventricular systolic function. The estimated left ventricular systolic ejection fraction is 55% to 60%. 3. Normal left atrium. The right atrium and the right ventricle appear to be mildly enlarged in limited views. 4. The atrial septum appeared to be normal without evidence of defect or shunt. 5. Normal aortic root. 6. Trace pericardial effusion noted, no evidence of cardiac tamponade. 7. The aortic valve, mitral valve, and tricuspid valve appear to be normal. The pulmonic valve and proximal pulmonary artery branches were not well visualized. 8. The inferior vena cava was normal in size, central venous pressure is most likely normal. DOPPLER: It detects trace mitral regurgitation and mild tricuspid regurgitation. The calculated pulmonary artery systolic pressure varies between 40 to 50 mmHg. Assessment of the left ventricular diastolic function appeared to be normal. IMPRESSION: 1. Low-normal global left ventricular systolic function. Assessment of the left ventricular diastolic function appeared to be normal. 2. Trace mitral regurgitation. 3. Mild tricuspid regurgitation with moderate pulmonary hypertension. In limited views, the right heart chambers appeared to be enlarged. Right ventricular free wall seems to be moving well. 4. Trace pericardial effusion, no evidence of cardiac tamponade. [facility]
--- NOTE | 2020-06-09 08:03 | REP ---
INDICATION: pleural effusion COMPARISON: 06/08/2020 TECHNIQUE: PA and lateral. FINDINGS: Right-sided chest tube is stable. Right basilar opacities suggesting airspace disease and small residual pleural effusion again identified and possibly increased from prior examination. The mediastinum and cardiac silhouette are stable and within normal limits. Underlying diffuse chronic COPD/emphysematous changes again noted. The skeletal structures are intact and normal. IMPRESSION: Right basilar opacities suggesting infiltrates and small residual pleural effusion possibly minimally increased. <Electronically signed by Ashok Mills > 06/09/20 0800
[2020-06-09] MEDS: SYMBICORT 160/4.5MCG INHALER 6GM INH SCH ×2 (08:17→21:00)
[2020-06-09] MEDS: predniSONE 10 MG TAB PO SCH (08:49)
[2020-06-09] MEDS: MULTIVITAMINS/MINERALS THERAP 1 TAB PO SCH (08:49)
[2020-06-09] MEDS: ASPIRIN 81 MG ENTERIC TAB PO SCH (08:49)
[2020-06-09] MEDS: MOM 30ML SUSPENSION UDC PO SCH (08:49)
[2020-06-09] MEDS: PANTOPRAZOLE 40MG TAB (PROTONIX) PO SCH (08:49)
[2020-06-09] MEDS: HumaLOG INSULIN (NovoLOG) PER UNIT SC SCH ×4 (08:49→20:57)
[2020-06-09] MEDS: lisinopriL 5 MG TAB PO SCH (08:50)
[2020-06-09] MEDS: ATORVASTATIN 20 MG TAB PO SCH (08:50)
[2020-06-09] MEDS: DOCUSATE SODIUM 100MG CAPSULE PO SCH ×2 (08:50→20:57)
[2020-06-09] MEDS ORDERED: predniSONE 10 MG TAB PO SCH (09:00)
[2020-06-09] MEDS: HEPARIN DRIP 25,000 UNITS in IV 1 EA IV SCH (10:05)
[2020-06-09] MEDS: PERCOCET 5MG/325MG TAB PO PRN (12:39)
--- NOTE | 2020-06-09 12:44 | IPNPDOC ---
Text Note Date of Service The patient was seen on 06/09/20. NOTE SUBJECTIVE: -No acute events overnight -s/p chest tube placement, remains on heparin gtt, on 4L NC throughout the night OBJECTIVE: General: NAD Eye: EOMI, anicteric ENT: MMM Neck: Supple Chest: Moving air well bilaterally with clear breath sounds and no crackles at this time. Heart: Rate Normal, Regular Rhythm Abdomen: Normal bowel sounds, soft, NTND Extremities: No LE edema, WWP Skin: Nl turgor and temperature Neuro: Cranial Nerves 3-12 NL, moving all extremities Psych: AOx3, normal affect Laboratory Data WBC 17.9 Hgb 13.5 platelets 313 Na 137 K 4.5 Cr 0.78 Assessment: 64 year old M with COPD and right lung nodule who presented with dyspnea and found to have large right pleural effusion and multiple left sided pulmonary emboli. s/p chest tube placement and drainage and also on a heparin gtt. Plan 1. Acute hypoxemic respiratory failure 2/2 PE and large R pleural effusion -Requiring 4L of NC -s/p pleural effusion drainage -On heparin gtt for left pulmonary embolus 2. Large right pleural effusion -History of smoking with right lung nodule -CT surgery following, s/p thoracentesis with chest tube placement -Suspecting malignancy related with history of smoking and right lung nodule, cytology sent 3. Multiple left-sided pulmonary emboli -Suspecting malignancy as the precipitant -heparin gtt at this time kami-procedure. To start eliquis tomorrow AM 4. COPD -Stable, no wheezing at this time -He was placed on a steroid taper on 06/01/2020. Start at 40mg qD and taper by 10mg every 4 days. This AM will start on 20mg qD. -Continue to taper prednisone off -Continue inhalers and rescue inhaler 5. Right lung nodule -Followed by Dr. Walker outpatient 6. Diabetes mellitus -Hold metformin -Insulin sliding scale 7. Hypertension -Continue Lisinopril 8. Paroxysmal atrial fibrillation -[id number] score of 1 -He follows with cardiology outpatient. Patient reports that he did have discussion about anticoagulation and decided to do aspirin since he has a [id number] score of 1. He is aware that the risk of atrial fibrillation is an embolic stoke. -Not in atrial fibrillation at this time. He says he has been cardioverted out of atrial fibrillation -currently anticoagulated for acute PEs 9. DVT ppx -On IV heparin per PE protocol VS,Fishbone, I+O VS, Fishbone, I+O Laboratory Tests 06/09/20 04:35 Vital Signs Date Time Temp Pulse Resp B/P (MAP) Pulse Ox O2 Delivery O2 Flow Rate FiO2 06/09/20 04:00 4.0 06/09/20 04:00 97.8 73 16 134/73 (93) 96 Nasal Cannula I&O- Last 24 Hours up to 6 AM 06/09/20 06:00 Intake Total 1100 ml Output Total 5045 ml Balance -3945 ml LORENA MOON MD Jun 09, 2020 09:02
[2020-06-09 14:26] VITALS: BP 109/57
--- NOTE | 2020-06-09 15:23 | IPN ---
PROGRESS NOTE DATE: 06/09/2020 Mr. Ratliff has done well overnight after draining over 3 liters of pleural fluid. He is sitting up comfortably and breathing well. His vital signs show a maximum temperature of 98.0 with a heart rate that ranges between 71-75 in a sinus rhythm, respiratory rate 16-20 without the use of accessory muscles who is 96%-97% saturated on 4 liters nasal cannula. His blood pressure is ranging from 129/67 to 134/73. His intake and output for the past 24 hours has been recorded as 860 in and 4150 out for a negative of nearly 400 mL. Most of that output was from the chest tube insertion. He has put out 900 mL in urine output. In the past 8 hours, he has put out 95 mL. His weight today is 80.6 kg compared to 84.8 kg yesterday. PHYSICAL EXAMINATION: He has coarse rhonchi and rales on the right side. He also has decreased breath sounds on the right side. Percussion note is full to the diaphragm, however. His left side shows normal vesicular sounds without wheezes, rhonchi, or rales. Percussion note is full to the diaphragm on the left. Cardiac exam is without murmurs, clicks, gallops, or rubs. I cannot feel his point of maximal impulse (PMI). S1 and S2 are normal. Abdomen is soft and nontender. Bowel sounds are positive. He is slightly distended, but he has had a bowel movement. There is no hepatomegaly. No costovertebral angle (CVA) tenderness. Extremities show no pretibial edema, no calf tenderness, no differential swelling of the upper extremities. Skin is warm, dry, and perfused without cyanosis or mottling, including that of the nailbeds and knees. Neck is supple. There is no jugular venous distention. No subcutaneous emphysema. Trachea is midline. Mouth shows his mucous membranes to be pink and moist. Lips and commissures without lesions. No thrush. Eyes show his pupils to be equal and reactive. Extraocular muscles intact. Sclerae anicteric. Neurologic shows II-XII intact. Normal gross motor, gross sensation intact. Gait is not tested. Psychiatric shows him to awake, alert, and oriented times three with appropriate mood and affect and conversational. His chest tube has developed an air leak. His white count today is 17.9 with a hemoglobin and hematocrit of 13.5 and 40.7, respectively, with a platelet count of 313. Differential shows 82% neutrophils, 9% lymphocytes, 7% monocytes. There are no immature forms or toxic granulations. Electrolytes are normal with a BUN and creatinine of 17 and 0.78, a glucose of 148, and a calcium of 8.7. Blood gases this morning show a pH of 7.45, pCO2 of 36, a pO2 of 86 on 2 liters nasal cannula with a base excess of 1.1. His PTT today is 68.9 seconds. His pleural fluid has been returned with a pH of 7.59 with a glucose of 138 and an LDH of 399 with a corresponding LDH of 165. Fluid protein is 4.9 with a corresponding serum protein of 6.9. All this is exudative. He has 1100 white cells, of which 96% are mononuclears and/or lymphocytes, and only 3% are PMNs. His chest x-ray today shows his lung fully expanded to the chest wall. There is some minor blunting of the costophrenic angle, and it looks as though he has post expansion pulmonary edema. I do not see the upper lobe mass per se effects, although there is a vague density near the midclavicular line in the upper hemithorax on the right side. Pathology has called me, and I will review the slides with them. 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 He will be sent out for all the requisite studies. Microbiology is negative for organisms. IMPRESSION: 1. Malignant pleural effusion. 2. Adenocarcinoma, probably with right upper lobe lesion. 3. Chronic obstructive pulmonary disease. 4. Remote history of atrial fibrillation. 5. Multiple pulmonary emboli, probable underlying hypercoagulable state secondary to metastatic disease. 6. Hypertension. 7. Diabetes. PLAN AND DISCUSSION: I have informed the patient of the diagnosis. We are at the very first steps in working this malignancy up. He will be sent off for all the appropriate genetic markers. He certainly has put out too much out of the chest tube to remove it at this point in time. He may need a PleurX catheter. I have contacted the hospitalist service, and they will contact oncology. He will need an outpatient PET scan. His most acute problem in addition to his pleural effusion is his pulmonary emboli, and he is currently anticoagulated with heparin. He will need to be transitioned to an oral anticoagulant. He is going to be in here for, I suspect, the next 4-7 days.
[2020-06-09 16:57] VITALS: BP 135/68
--- NOTE | 2020-06-09 18:08 | CR.PDOC ---
General Date of Consultation: Jun 09, 2020 Consultation REASON FOR CONSULTATION/CHIEF COMPLAINT: [malignat pleural effusion HISTORY OF PRESENT ILLNESS: This is a 64 year old man. He is a former smoker He had COPD and lung nodules. He was admitted with worsening shortness of breath. He had a a large pleural effusion. He also had a pulmonary embolism . He had placement of a right side chest tube, He is breathing better. pathology is reporting that he has malignant cells in the pleural fluid. ALLERGIES: Please see below. HOME MEDICATIONS: Please see below. PAST MEDICAL HISTORY: 1. [COPD 2. .Atrial fibrillation 3. diabetes PAST SURGICAL HISTORY: 1. [cataract surgery 2. [neck surgery FAMILY HISTORY: Father: Mother: Siblings: Children: Hereditary Diseases: Unexpected deaths due to medical reasons: SOCIAL HISTORY: Marital status and/or living arrangements: Children: Employment: Tobacco use:smoker on and off for about forty years ETOH: Illicit drug use: IV drug use: Other relevant social factors: REVIEW OF SYSTEMS: CONSTITUTIONAL: [shortness of breath better after chest tube ]. HEENT: [ vision problem right eye ]. CARDIOVASCULAR: [history atrial fibrillation . RESPIRATORY: [shortness of breath better after chest tube ]. GENITOURINARY: . MUSCULOSKELETAL: [denies ]. GASTROINTESTINAL: [constipation SKIN: . NEUROLOGICAL: . PSYCHIATRIC: . ENDOCRINE: [known diabetes HEMATOLOGIC/LYMPHATIC: . ALLERGIC/IMMUNOLOGIC: . PHYSICAL EXAMINATION: VITAL SIGNS: Please see below. GENERAL APPEARANCE: [awake and alert ]. HEENT: normal]. RESPIRATORY: bilateral breath sounds, chest tube right chest CARDIOVASCULAR: [regular rhythm at the time of my exam ]. ABDOMEN: soft . EXTREMITIES: [no pedal edema NEUROLOGICAL: . speech fluent , oriented to person place, cranial nerves grossly intact PSYCHIATRIC: .normal mood LABORATORY DATA: Please see below. ASSESSMENT/PLAN: 1. [ pulmonary embolism 2. malignant pleural effusion Plan : when stable he needs to follow up in the cancer center for systemic therapy, follow up on pathology . Vital Signs/I&O Vital Signs Date Time Temp Pulse Resp B/P (MAP) Pulse Ox O2 Delivery O2 Flow Rate FiO2 06/09/20 16:57 98.1 79 18 135/68 (90) 95 Nasal Cannula 4.0 I&O- Last 24 Hours up to 6 AM 06/09/20 05:59 Intake Total 980 ml Output Total 4550 ml Balance -3570 ml Laboratory Data Labs 24H Laboratory Tests 2 06/08/20 20:13: Bedside Glucose (Misc Panel) 214H 06/08/20 22:21: Activated Partial Thromboplast Time 92.7H 06/09/20 04:35: Immature Granulocyte % (Auto) 0.6, Neutrophils (%) (Auto) 82.5H, Lymphocytes (%) (Auto) 9.1L, Monocytes (%) (Auto) 7.5H, Eosinophils (%) (Auto) 0.1, Basophils (%) (Auto) 0.2, Neutrophils # (Auto) 14.8H, Lymphocytes # (Auto) 1.6, Monocytes # (Auto) 1.4H, Eosinophils # (Auto) 0.0, Basophils # (Auto) 0.0, Nucleated Red Blood Cells % (auto) 0.0, Anion Gap 8, Glomerular Filtration Rate > 60.0, Calcium Level 8.7L 06/09/20 05:01: Activated Partial Thromboplast Time 68.9H 06/09/20 05:28: Blood Gas Bicarbonate Standard 25.4, Arterial Blood pH 7.451H, Arterial Blood Partial Pressure CO2 36.3, Arterial Blood Partial Pressure O2 86.0, Arterial Blood Total CO2 25.8, Arterial Blood HCO3 24.7, Arterial Blood Base Excess 1.1, Arterial Blood Oxygen Saturation 97.1 06/09/20 07:58: Bedside Glucose (Misc Panel) 136H 06/09/20 12:35: Bedside Glucose (Misc Panel) 183H CBC/BMP Laboratory Tests 06/09/20 04:35 Microbiology Microbiology 06/08/20 Gram Stain - Final, Resulted 06/08/20 Anaerobic Culture, Resulted Pending 06/08/20 Body Fluid Culture, Received Pending Allergies Coded Allergies: shellfish derived (Verified Allergy, Intermediate, hives, 06/08/20) Home Medications Scheduled Aspirin (Aspirin EC) 81 Mg Tablet.dr, 81 MG PO DAILY, (Reported) Atorvastatin Calcium (Atorvastatin Calcium) 20 Mg Tablet, 20 MG PO DAILY, (Reported) Budesonide/Formoterol (Symbicort 160-4.5 Mcg Inhaler) 6 Gm Hfa.aer.ad, 2 PUFF INH BID, (Reported) Lisinopril (Lisinopril) 5 Mg Tablet, 5 MG PO DAILY, (Reported) Metformin HCl (Metformin HCl) 500 Mg Tablet, 500 MG PO DAILY, (Reported) Multivitamins (Thera M Plus Tablet) 1 Each Tablet, 1 TAB PO DAILY, (Reported) Prednisone (Prednisone) 10 Mg Tablet, 30 MG PO DAILY, (Reported) TAPER DOSE STARTED 06/01/20 - 40MG DAILY x 4 DAYS, 30MG DAILY X 4 DAYS, 20MG DAILY X 4 DAYS, 10MG DAILY X 4 DAYS - DUE TO BEGIN 20MG ON 06/09/20 Umeclidinium [place] (Incruse Ellipta) 62.5 Mcg Blst.w.dev, 1 PUFF INH DAILY, (Reported) Scheduled PRN Acetaminophen (Acetaminophen) 500 Mg Tablet, 1,000 MG PO Q6H PRN for PAIN, (Reported) Albuterol Sulfate (Proair Hfa) 8.5 Gm Hfa.aer.ad, 2 PUFF INH Q6H PRN for SHORTNESS OF BREATH, (Reported) Ipratropium/Albuterol Sulfate (Iprat-Albut 0.5-3(2.5) mg/3 ml) 3 Ml Ampul.neb, 1 VIAL NEB QID PRN for SHORTNESS OF BREATH, (Reported) SATURNINO IRIZARRY MD Jun 09, 2020 18:08
[2020-06-09 20:00] VITALS: BP 144/78
[2020-06-10] VITALS: BP 155/70
[2020-06-10] MEDS: LEVALBUTEROL 1.25 MG/0.5 ML CONCENTRATE NEB NEB SCH ×3 (02:00→19:42)
[2020-06-10] MEDS: KETOROLAC 30 MG/ML 1ML VIAL IV SCH ×4 (02:10→20:42)
[2020-06-10] MEDS: HEPARIN DRIP 25,000 UNITS in IV 1 EA IV SCH ×2 (03:46→20:48)
[2020-06-10 04:00] VITALS: BP 152/86
[2020-06-10] MEDS: SLF 3 ML SYR IV SCH ×3 (05:22→21:50)
[2020-06-10 05:53] LABS: BASO % 0.2 % (0.0-1.0); EOS # 0.1 10^3/uL (0.0-0.5); HEMATOCRIT 39.9 % (42.0-52.0); HEMOGLOBIN 12.6 g/dl (13.5-17.5); LYMPH # 1.9 10^3/uL (1.5-5.0); LYMPH % 14.7 % (24.0-44.0); MEAN CORPUSCULAR HEMOGLOBIN 28.3 pg (27.0-33.0); MEAN CORPUSCULAR HGB CONC 31.6 g/dl (32.0-36.5); MEAN CORPUSCULAR VOLUME 89.5 fl (80.0-96.0); NEUTROPHILS # 9.5 10^3/uL (1.5-8.5); NEUTROPHILS % 75.4 % (36.0-66.0); PLATELET COUNT, AUTOMATED 290 10^3/uL (150-450); RED BLOOD COUNT 4.46 10^6/uL (4.30-6.10); WHITE BLOOD COUNT 12.7 10^3/uL (4.0-10.0)
[2020-06-10 06:11] LABS: BLOOD UREA NITROGEN 16 MG/DL (7-18); CALCIUM LEVEL 8.4 MG/DL (8.8-10.2); CARBON DIOXIDE LEVEL 30 MEQ/L (21-32); CHLORIDE LEVEL 104 MEQ/L (98-107); CREATININE FOR GFR 0.77 MG/DL (0.70-1.30); GLOMERULAR FILTRATION RATE > 60.0 (>49); GLUCOSE, FASTING 125 MG/DL (70-100); POTASSIUM SERUM 4.4 MEQ/L (3.5-5.1); SODIUM LEVEL 139 MEQ/L (136-145)
[2020-06-10] MEDS ORDERED: APIXABAN 5 MG TAB (ELIQUIS) PO SCH (08:00)
--- NOTE | 2020-06-10 08:19 | REP ---
INDICATION: pleural effusion COMPARISON: 06/09/2020 TECHNIQUE: PA and lateral. FINDINGS: Right-sided chest tube in stable position. Moderate but increased subcutaneous emphysema noted along with right hydropneumothorax and right lower lobe airspace disease. The mediastinum and cardiac silhouette are normal/stable. Aerated lung blackmon demonstrate stable chronic interstitial changes. Skeletal structures appear intact. IMPRESSION: 1. Chest tube in stable position. 2. Right-sided subcutaneous emphysema and small to moderate right hydropneumothorax appears slightly increased from prior examination. 3. Right basilar airspace disease unchanged. <Electronically signed by Ashok Mills > 06/10/20 0824
[2020-06-10] MEDS: ATORVASTATIN 20 MG TAB PO SCH (08:51)
[2020-06-10] MEDS: PANTOPRAZOLE 40MG TAB (PROTONIX) PO SCH (08:51)
[2020-06-10] MEDS: HumaLOG INSULIN (NovoLOG) PER UNIT SC SCH ×4 (08:52→21:50)
[2020-06-10] MEDS: predniSONE 10 MG TAB PO SCH (08:53)
[2020-06-10] MEDS: lisinopriL 5 MG TAB PO SCH (08:54)
[2020-06-10] MEDS: ASPIRIN 81 MG ENTERIC TAB PO SCH (08:54)
[2020-06-10] MEDS: DOCUSATE SODIUM 100MG CAPSULE PO SCH ×2 (08:54→20:42)
[2020-06-10] MEDS: MOM 30ML SUSPENSION UDC PO SCH (09:00)
[2020-06-10] MEDS: MULTIVITAMINS/MINERALS THERAP 1 TAB PO SCH (09:00)
[2020-06-10] MEDS: SYMBICORT 160/4.5MCG INHALER 6GM INH SCH ×2 (09:33→19:42)
[2020-06-10 09:39] VITALS: BP 170/80
--- NOTE | 2020-06-10 11:21 | REP ---
INDICATION: underlying mass? COMPARISON: 06/08/2020 TECHNIQUE: Axial noncontrast images from the thoracic inlet to the upper abdomen with coronal and sagittal reformations. This CT examination was performed using the following dose reduction techniques: Automated exposure control, adjustment of mA and/or kv according to the patient's size, and use of iterative reconstruction technique. FINDINGS: A chest tube is identified extending along the posterior right hemithorax and there is a moderate residual pneumothorax of approximately 15% as well as moderate subcutaneous emphysema and mild right basilar areas of opacity suggesting residual atelectasis/small consolidations. Previously noted pleural effusion has resolved. The lung blackmon demonstrate advanced diffuse emphysematous disease along with scattered scarring. There appears to be a 3.2 cm spiculated mass along the posterior aspect of the right upper lobe. Mediastinum demonstrates few reactive lymph nodes measuring up to 9 mm short axis diameter. Atherosclerotic changes to the thoracic aorta and coronary arteries noted without aortic aneurysm or cardiomegaly. No pericardial effusion. Tracheobronchial tree is relatively patent. IMPRESSION: 1. Small/moderate residual right pneumothorax with minimal small presumed areas of atelectasis/consolidation primarily noted at the right base. Small scattered nodular densities in the right mid to lower lung zone cannot be excluded. Previous pleural effusion has resolved. 2. 3.2 cm spiculated mass along the posterior right upper lobe. 3. Underlying advanced COPD/emphysematous changes with scattered scarring. <Electronically signed by Ashok Mills > 06/10/20 1114
[2020-06-10 12:16] VITALS: BP 138/65
--- NOTE | 2020-06-10 13:22 | IPNPDOC ---
Text Note Date of Service The patient was seen on 06/10/20. NOTE SUBJECTIVE: -No acute events overnight -Now on 2L NC, clinically feels better -Pleural fluid cytology came back positive for adenoCA --> Dr. Bethea discussed it with the patient and will be repeating imaging now that the effusion has been drained and oncology was consulted (Dr. Santamaria) OBJECTIVE: General: NAD Eye: EOMI, anicteric ENT: MMM Neck: Supple Chest: Moving air well bilaterally scattered basilar crackles on R posterior field, L clear. Heart: Rate Normal, Regular Rhythm Abdomen: Normal bowel sounds, soft, NTND Extremities: No LE edema, WWP Skin: Nl turgor and temperature Neuro: Cranial Nerves 3-12 NL, moving all extremities Psych: AOx3, normal affect Laboratory Data WBC 12.7 Hgb 12.6 platelets 290 Na 139 K 4.4 Cr 0.77 Assessment: 64 year old M with COPD and right lung nodule who presented with dyspnea and found to have large right pleural effusion and multiple left sided pulmonary emboli s/p chest tube placement and drainage with clinical improvement with pleural fluid analysis showing newly identified adenocarcinoma. Plan 1. Acute hypoxemic respiratory failure 2/2 PE and large R pleural effusion 2/2 adenocarcinoma -Requiring 2L of NC -s/p pleural effusion drainage -On heparin gtt for left pulmonary embolus 2. Large right pleural effusion, malignant with cytology positive for adenocarcinoma -History of smoking with right lung nodule -CT surgery following, s/p thoracentesis with chest tube placement -Now confirmed to be most likely malignancy related with cytology positive for adenocarcinoma -CT surgery planning for repeat imaging now that the effusion is out of the way --> repeat CT chest show RUL mass -Oncology consulted for newly noted stage 4 adenocarcinoma given +pleural fluid 3. Multiple left-sided pulmonary emboli -Suspecting malignancy as the precipitant -Continue heparin gtt for now 4. COPD -Stable, no wheezing at this time -He was placed on a steroid taper on 06/01/2020. Start at 40mg qD and taper by 10mg every 4 days. Currently down to 20mg qD. -Continue to taper prednisone off -Continue inhalers and rescue inhaler 5. Right lung nodule with now confirmed adenocarcinoma by cytology -Followed by Dr. Walker outpatient -Oncology consulted 6. Diabetes mellitus -Holding metformin -Insulin sliding scale -FSBG AC/HS -hypoglycemia protocol 7. Hypertension -Continue Lisinopril 8. Paroxysmal atrial fibrillation -[id number] score of 1 -He follows with cardiology outpatient. Patient reports that he did have di scussion about anticoagulation and decided to do aspirin since he has a [id number] score of 1. He is aware that the risk of atrial fibrillation is an embolic stoke. -Not in atrial fibrillation at this time. He says he has been cardioverted out of atrial fibrillation -currently anticoagulated for acute PEs 9. DVT ppx -continue heparin gtt VS,Fishbone, I+O VS, Fishbone, I+O Laboratory Tests 06/10/20 05:28 Vital Signs Date Time Temp Pulse Resp B/P (MAP) Pulse Ox O2 Delivery O2 Flow Rate FiO2 06/10/20 04:00 2.0 06/10/20 04:00 97.6 64 18 152/86 (108) 97 Nasal Cannula I&O- Last 24 Hours up to 6 AM 06/10/20 06:00 Intake Total 1308 ml Output Total 1320 ml Balance -12 ml LORENA MOON MD Jun 10, 2020 07:35
[2020-06-10] MEDS ORDERED: HEPARIN SOD (PORCINE) 5000UNITS/ML 1ML VIAL/SYRINGE IV PRN ×2 (13:30→21:00)
--- NOTE | 2020-06-10 13:45 | IPN ---
PROGRESS NOTE DATE: 06/10/2020 Mr. Ratliff is doing fairly well. His understands his diagnosis. Pain at his chest tube site is being well controlled with oral analgesics. His vital signs show a maximum temperature of 97.9 with a heart rate that ranges between 64-71 in sinus rhythm, respiratory rate that is constant at 18 who is 96%-97% saturated on 2 liters nasal cannula, and blood pressure is ranging between 138/65 to 170/80. His weight today is 82 kg compared to 80.6 kg yesterday and 84 kg the day before. PHYSICAL EXAMINATION: He has equal breath sounds on either side. He has some scattered rhonchi, most of which clear with coughing. Percussion note is full to the diaphragm. I feel no subcutaneous emphysema over the anterior chest wall. Cardiac exam is without murmurs, clicks, gallops, or rubs. I cannot feel his point of maximal impulse (PMI). S1 and S2 are normal. Abdomen is soft and nontender. Bowel sounds are positive. There is no hepatomegaly. No costovertebral angle (CVA) tenderness. Extremities show no pretibial edema, no calf tenderness, no differential swelling of the upper extremities. Skin is warm, dry, and perfused without cyanosis or mottling, including that of the nailbeds and knee. Neck is supple. There is no jugular venous distention. No subcutaneous emphysema. Trachea is midline. Mouth shows the mucous membranes to be pink and moist. Lips and commissures without lesions. No thrush. Eyes show his pupils to be equal and reactive. Extraocular muscles intact. Sclerae anicteric. Neurologic shows II-XII intact. Normal gross motor, gross sensation intact. Gait is not tested. Psychiatric shows him to be awake, alert, and oriented times three with appropriate mood and affect and conversational. His white count today is down to 12.7 from 17.9 yesterday. His hemoglobin and hematocrit are 12.6 and 39.9, essentially no change from yesterday, with a platelet count of 290. Differential shows 35% neutrophils, 14% lymphocytes, 8% monocytes. There are no immature forms or toxic granulations. Electrolytes are normal with a BUN and creatinine of 16 and 0.77, a glucose of 125, and a calcium of 8.4. His chest x-ray today shows some subcutaneous emphysema around the chest tube insertion site. He still has an air leak from the chest tube. He has put out 235 mL from the chest tube. His chest x-ray today, as noted above, shows some subcutaneous emphysema. Otherwise, the lung is fully expanded to the chest wall. On the lateral view I see what I think is the lung mass centrally. It is difficult to tell on the PA view, but there is a big opacity looking more infiltrative in the right upper hemithorax. Because of the air leak I did obtain a CT scan. CT scan shows a definite right upper lobe mass, which measures 3.2 cm in its greatest dementia. There are multiple emphysematous changes and bullae, particularly in the upper lobes. The lung is from the chest wall inferiorly. IMPRESSION: 1. 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 2. Right upper lobe lesion, noted of the primary lesion. 3. Chronic obstructive pulmonary disease. 4. Remote history of atrial fibrillation. 5. Multiple pulmonary emboli, probably underlying hypercoagulable state from metastatic disease. 6. Hypertension. 7. Diabetes. PLAN AND DISCUSSION: Because of the air leak I may be forced to take him to the operating room to undertake a talc pleurodesis and bulla resection. I am going to give it a few more days to stop leaking on its own. I will increase the chest tube suction. He got one dose of Eliquis today. I have asked the hospitalist service to discontinue that and place him back on a heparin drip so that if I have to take him to the operating room I can easily control the anticoagulation. Pathology has been sent out for tumor markers. TTF-1 is positive. He has been seen by oncology and will followup as an outpatient at the cancer center.
[2020-06-10] MEDS ORDERED: HEPARIN DRIP 25,000 UNITS in IV 1 EA IV SCH (14:00)
[2020-06-10 18:09] VITALS: BP 118/62
[2020-06-10 20:00] VITALS: BP 137/71
[2020-06-10] MEDS: PERCOCET 5MG/325MG TAB PO PRN (21:45)
[2020-06-11] VITALS (7 sets, daily range): BP systolic 119–157; BP diastolic 59–74
[2020-06-11] MEDS: LEVALBUTEROL 1.25 MG/0.5 ML CONCENTRATE NEB NEB SCH ×4 (02:00→17:49)
[2020-06-11] MEDS: KETOROLAC 30 MG/ML 1ML VIAL IV SCH ×4 (02:09→20:30)
[2020-06-11] MEDS: SLF 3 ML SYR IV SCH ×3 (06:15→22:00)
[2020-06-11 07:23] LABS: BASO # 0.1 10^3/uL (0.0-0.2); BASO % 0.4 % (0.0-1.0); EOS # 0.3 10^3/uL (0.0-0.5); EOS % 2.3 % (0.0-3.0); HEMATOCRIT 38.3 % (42.0-52.0); HEMOGLOBIN 12.2 g/dl (13.5-17.5); LYMPH # 2.7 10^3/uL (1.5-5.0); LYMPH % 19.7 % (24.0-44.0); MEAN CORPUSCULAR HEMOGLOBIN 28.6 pg (27.0-33.0); MEAN CORPUSCULAR HGB CONC 31.9 g/dl (32.0-36.5); MEAN CORPUSCULAR VOLUME 89.7 fl (80.0-96.0); MONO # 1.1 10^3/uL (0.0-0.8); MONO % 7.7 % (0.0-5.0); NEUTROPHILS # 9.4 10^3/uL (1.5-8.5); NEUTROPHILS % 68.6 % (36.0-66.0); PLATELET COUNT, AUTOMATED 281 10^3/uL (150-450); RED BLOOD COUNT 4.27 10^6/uL (4.30-6.10); WHITE BLOOD COUNT 13.8 10^3/uL (4.0-10.0)
[2020-06-11 07:44] LABS: BLOOD UREA NITROGEN 15 MG/DL (7-18); CALCIUM LEVEL 8.2 MG/DL (8.8-10.2); CARBON DIOXIDE LEVEL 30 MEQ/L (21-32); CHLORIDE LEVEL 104 MEQ/L (98-107); CREATININE FOR GFR 0.69 MG/DL (0.70-1.30); GLOMERULAR FILTRATION RATE > 60.0 (>49); GLUCOSE, FASTING 136 MG/DL (70-100); SODIUM LEVEL 139 MEQ/L (136-145)
[2020-06-11] MEDS: SYMBICORT 160/4.5MCG INHALER 6GM INH SCH ×2 (07:54→17:49)
[2020-06-11] MEDS: MOM 30ML SUSPENSION UDC PO SCH (08:23)
[2020-06-11] MEDS: HumaLOG INSULIN (NovoLOG) PER UNIT SC SCH ×4 (08:23→20:51)
[2020-06-11] MEDS: ASPIRIN 81 MG ENTERIC TAB PO SCH (08:24)
[2020-06-11] MEDS: ATORVASTATIN 20 MG TAB PO SCH (08:24)
[2020-06-11] MEDS: MULTIVITAMINS/MINERALS THERAP 1 TAB PO SCH (08:24)
[2020-06-11] MEDS: predniSONE 10 MG TAB PO SCH (08:24)
[2020-06-11] MEDS: lisinopriL 5 MG TAB PO SCH (08:24)
[2020-06-11] MEDS: DOCUSATE SODIUM 100MG CAPSULE PO SCH ×2 (08:25→20:33)
[2020-06-11] MEDS: PANTOPRAZOLE 40MG TAB (PROTONIX) PO SCH (08:25)
--- NOTE | 2020-06-11 08:36 | REP ---
INDICATION: pleural effusion COMPARISON: 06/10/2020 TECHNIQUE: PA and lateral. FINDINGS: Right-sided chest tube in stable position. Right-sided subcutaneous emphysema and pleuroparenchymal changes including small residual pneumothorax and right basilar airspace disease appear relatively unchanged. Remainder of lung blackmon are stable. No new acute process identified. Mediastinum and cardiac silhouette are within normal limits and stable. Skeletal structures are intact. IMPRESSION: 1. No significant change to the right-sided pleuroparenchymal changes with chest tube in stable position. Continued small residual right apical pneumothorax noted. 2. No new acute process identified. <Electronically signed by Ashok Mills > 06/11/20 0899
--- NOTE | 2020-06-11 12:06 | IPNPDOC ---
Text Note Date of Service The patient was seen on 06/11/20. NOTE SUBJECTIVE: -No acute events overnight -Continues on 2L NCr OBJECTIVE: General: NAD Eye: EOMI, anicteric ENT: MMM Neck: Supple Chest: Moving air well throughout Heart: Rate Normal, Regular Rhythm Abdomen: Normal bowel sounds, soft, NTND Extremities: No LE edema, WWP Skin: Nl turgor and temperature Neuro: Cranial Nerves 3-12 NL, moving all extremities Psych: AOx3, normal affect Laboratory Data: Reviewed, stable. PTT was supratherapeutic this AM, nursing managing per protocol Assessment: 64 year old M with COPD and right lung nodule who presented with dyspnea and found to have large right pleural effusion and multiple left sided pulmonary emboli s/p chest tube placement and drainage with clinical improvement with pleural fluid analysis showing newly identified adenocarcinoma. Plan 1. Acute hypoxemic respiratory failure 2/2 PE and large R pleural effusion 2/2 adenocarcinoma -Requiring 2L of NC -s/p pleural effusion drainage -On heparin gtt for left pulmonary embolus -Has an air leak that is being monitored by Dr. Bethea with potential to return to the operating room for a talc pleurodesis and bulla resection 2. Large right pleural effusion, malignant with cytology positive for adenocarcinoma -History of smoking with right lung nodule -CT surgery following, s/p thoracentesis with chest tube placement -Now confirmed to be most likely malignancy related with cytology positive for adenocarcinoma -CT surgery planning for repeat imaging now that the effusion is out of the way --> repeat CT chest show RUL mass -Oncology consulted for newly noted stage 4 adenocarcinoma given +pleural fluid 3. Multiple left-sided pulmonary emboli -Suspecting malignancy as the precipitant -Continue heparin gtt for now 4. COPD -Stable, no wheezing at this time -He was placed on a steroid taper on 06/01/2020. Start at 40mg qD and taper by 10mg every 4 days. Currently down to 20mg qD. -Continue to taper prednisone off -Continue inhalers and rescue inhaler -Has air leak with c/f 5. Right lung nodule with now confirmed adenocarcinoma by cytology -Followed by Dr. Walker outpatient -Oncology consulted, to f/u path and establish outpatient for treatment 6. Diabetes mellitus -Holding metformin -Insulin sliding scale -FSBG AC/HS -hypoglycemia protocol 7. Hypertension -Continue Lisinopril 8. Paroxysmal atrial fibrillation -[id number] score of 1 -He follows with cardiology outpatient. Patient reports that he did have discussion about anticoagulation and decided to do aspirin since he has a [id number] score of 1. He is aware that the risk of atrial fibrillation is an embolic stoke. -Not in atrial fibrillation at this time. He says he has been cardioverted out of atrial fibrillation -currently anticoagulated for acute PEs 9. DVT ppx -continue heparin gtt VS,Fishbone, I+O VS, Fishbone, I+O Laboratory Tests 06/11/20 07:14 Vital Signs Date Time Temp Pulse Resp B/P (MAP) Pulse Ox O2 Delivery O2 Flow Rate FiO2 06/11/20 08:00 2.0 06/11/20 07:59 98.0 61 18 148/71 (96) 95 Nasal Cannula I&O- Last 24 Hours up to 6 AM 06/11/20 06:00 Intake Total 1030 ml Output Total 2166 ml Balance -1136 ml LORENA MOON MD Jun 11, 2020 09:17
--- NOTE | 2020-06-11 13:26 | IPNPDOC ---
Date Seen The patient was seen on 06/11/20. Progress Note SUBJECTIVE: Patient is a 64 year old man with malignant pleural effusion OBJECTIVE PHYSICAL EXAMINATION: VITAL SIGNS: Please see below. GENERAL: [awake alert ] HEENT: CARDIOVASCULAR: . RESPIRATORY: [bilateral breath sounds chest tube still in place ]. ABDOMINAL: EXTREMITIES: NEUROLOGICAL: PSYCHOLOGICAL: LABORATORY DATA, IMAGING STUDIES, MICROBIOLOGY: Please see below. Echocardiogram: . DVT prophylaxis ordered?: ASSESSMENT AND PLAN: This is a 64 year odl man with malignant pleural effusion PROBLEMS: 1. malignat pleural effusion DISPOSITION: follow up on final path report , lung markers follow up in the office after discharge VS, I&O, 24H, Fishbone Vital Signs/I&O Vital Signs Date Time Temp Pulse Resp B/P (MAP) Pulse Ox O2 Delivery O2 Flow Rate FiO2 06/11/20 12:00 97.1 72 18 119/59 (79) 96 Nasal Cannula 2.0 I&O- Last 24 Hours up to 6 AM 06/11/20 06:00 Intake Total 1030 ml Output Total 2166 ml Balance -1136 ml Laboratory Data 24H LABS Laboratory Tests 2 06/10/20 13:54: Activated Partial Thromboplast Time 29.7 06/10/20 18:03: Bedside Glucose (Misc Panel) 230H 06/10/20 19:18: Activated Partial Thromboplast Time 27.8 06/10/20 21:46: Bedside Glucose (Misc Panel) 263H 06/11/20 00:58: Activated Partial Thromboplast Time 62.6H 06/11/20 06:18: Bedside Glucose (Misc Panel) 173H 06/11/20 07:14: Activated Partial Thromboplast Time 170.9*H, Immature Granulocyte % (Auto) 1.3, Neutrophils (%) (Auto) 68.6H, Lymphocytes (%) (Auto) 19.7L, Monocytes (%) (Auto) 7.7H, Eosinophils (%) (Auto) 2.3, Basophils (%) (Auto) 0.4, Neutrophils # (Auto) 9.4H, Lymphocytes # (Auto) 2.7, Monocytes # (Auto) 1.1H, Eosinophils # (Auto) 0.3, Basophils # (Auto) 0.1, Nucleated Red Blood Cells % (auto) 0.0, Anion Gap 5L, Glomerular Filtration Rate > 60.0, Calcium Level 8.2L 12/24/20 12:17: Bedside Glucose (Misc Panel) 239H CBC/BMP Laboratory Tests 06/11/20 07:14 Microbiology Microbiology 06/08/20 Acid Fast Stain, Received Pending 06/08/20 Mycobacterial Culture, Received Pending 06/08/20 Fungal Smear, Received Pending 06/08/20 Fungal Culture, Received Pending 06/08/20 Gram Stain - Final, Complete 06/08/20 Anaerobic Culture - Final, Complete 06/08/20 Body Fluid Culture - Final, Complete SATURNINO IRIZARRY MD Jun 11, 2020 13:26
[2020-06-11] MEDS: HEPARIN DRIP 25,000 UNITS in IV 1 EA IV SCH (13:28)
[2020-06-11] MEDS: PERCOCET 5MG/325MG TAB PO PRN (20:34)
[2020-06-12] VITALS: BP 129/61
[2020-06-12] MEDS: KETOROLAC 30 MG/ML 1ML VIAL IV SCH ×4 (02:41→20:43)
[2020-06-12] MEDS: LEVALBUTEROL 1.25 MG/0.5 ML CONCENTRATE NEB NEB SCH ×4 (02:45→19:40)
[2020-06-12 04:00] VITALS: BP 152/73
[2020-06-12] MEDS: SLF 3 ML SYR IV SCH ×3 (06:00→22:00)
[2020-06-12 07:11] LABS: BASO # 0.1 10^3/uL (0.0-0.2); BASO % 0.5 % (0.0-1.0); EOS # 0.3 10^3/uL (0.0-0.5); EOS % 2.2 % (0.0-3.0); HEMATOCRIT 41.5 % (42.0-52.0); HEMOGLOBIN 12.9 g/dl (13.5-17.5); LYMPH # 3.1 10^3/uL (1.5-5.0); LYMPH % 21.5 % (24.0-44.0); MEAN CORPUSCULAR HEMOGLOBIN 28.7 pg (27.0-33.0); MEAN CORPUSCULAR HGB CONC 31.1 g/dl (32.0-36.5); MEAN CORPUSCULAR VOLUME 92.2 fl (80.0-96.0); NEUTROPHILS # 9.6 10^3/uL (1.5-8.5); PLATELET COUNT, AUTOMATED 303 10^3/uL (150-450); WHITE BLOOD COUNT 14.4 10^3/uL (4.0-10.0)
[2020-06-12 07:41] VITALS: BP 131/60
[2020-06-12 07:47] LABS: BLOOD UREA NITROGEN 17 MG/DL (7-18); CALCIUM LEVEL 8.9 MG/DL (8.8-10.2); CARBON DIOXIDE LEVEL 31 MEQ/L (21-32); CHLORIDE LEVEL 105 MEQ/L (98-107); CREATININE FOR GFR 0.83 MG/DL (0.70-1.30); GLOMERULAR FILTRATION RATE > 60.0 (>49); GLUCOSE, FASTING 132 MG/DL (70-100); POTASSIUM SERUM 4.1 MEQ/L (3.5-5.1); SODIUM LEVEL 141 MEQ/L (136-145)
[2020-06-12] MEDS: SYMBICORT 160/4.5MCG INHALER 6GM INH SCH ×2 (07:54→21:00)
[2020-06-12] MEDS: lisinopriL 5 MG TAB PO SCH (09:00)
[2020-06-12] MEDS: ASPIRIN 81 MG ENTERIC TAB PO SCH (09:00)
--- NOTE | 2020-06-12 09:20 | REP ---
INDICATION: pleural effusion COMPARISON: 06/11/2020 TECHNIQUE: PA and lateral. FINDINGS: Right chest tube in stable position. Right pneumothorax and pleuroparenchymal changes appear mildly improved. Left hemithorax is stable and without acute consolidation, effusion, or pneumothorax. Mediastinum and cardiac silhouette stable/normal. IMPRESSION: Right-sided pneumothorax and pleuroparenchymal changes appear mildly improved. <Electronically signed by Ashok Mills > 06/12/20 0941
[2020-06-12] MEDS: MOM 30ML SUSPENSION UDC PO SCH (09:28)
[2020-06-12] MEDS: HumaLOG INSULIN (NovoLOG) PER UNIT SC SCH ×4 (09:28→20:42)
[2020-06-12] MEDS: predniSONE 10 MG TAB PO SCH (09:29)
[2020-06-12] MEDS: DOCUSATE SODIUM 100MG CAPSULE PO SCH ×2 (09:30→20:43)
[2020-06-12] MEDS: ATORVASTATIN 20 MG TAB PO SCH (09:30)
[2020-06-12] MEDS: PANTOPRAZOLE 40MG TAB (PROTONIX) PO SCH (09:30)
[2020-06-12] MEDS: MULTIVITAMINS/MINERALS THERAP 1 TAB PO SCH (09:30)
[2020-06-12] MEDS: HEPARIN DRIP 25,000 UNITS in IV 1 EA IV SCH (09:31)
[2020-06-12] MEDS ORDERED: FUROSEMIDE 40MG/4ML VIAL (J1940) IV ONE (10:00)
--- NOTE | 2020-06-12 11:10 | IPNPDOC ---
Text Note Date of Service The patient was seen on 06/12/20. NOTE SUBJECTIVE: -No acute events overnight OBJECTIVE: General: NAD Eye: EOMI, anicteric ENT: MMM Neck: Supple Chest: Moving air well throughout, chest tube to suction Heart: Rate Normal, Regular Rhythm Abdomen: Normal bowel sounds, soft, NTND Extremities: No LE edema, WWP Skin: Nl turgor and temperature Neuro: Cranial Nerves 3-12 NL, moving all extremities Psych: AOx3, normal affect Laboratory Data: Reviewed, stable. WBC 14.4 Hgb 12.9 platelets 303 Na 141 K 4.1 Cr 0.83 Assessment: 64 year old M with COPD and right lung nodule who presented with dyspnea and found to have large right pleural effusion and multiple left sided pulmonary emboli s/p chest tube placement and drainage with clinical improvement with pleural fluid analysis showing newly identified adenocarcinoma. Plan 1. Acute hypoxemic respiratory failure 2/2 PE and large R pleural effusion 2/2 adenocarcinoma -Requiring 2L of NC -s/p pleural effusion drainage -On heparin gtt for left pulmonary embolus -Has an air leak that is being monitored by Dr. Bethea with potential to return to the operating room for a talc pleurodesis and bulla resection 2. Large right pleural effusion, malignant with cytology positive for adenocarcinoma -History of smoking with right lung nodule -CT surgery following, s/p thoracentesis with chest tube placement -Now confirmed to be most likely malignancy related with cytology positive for adenocarcinoma -CT surgery planning for repeat imaging now that the effusion is out of the way --> repeat CT chest show RUL mass -Oncology consulted for newly noted stage 4 adenocarcinoma given +pleural fluid, to follow in outpatient onc 3. Multiple left-sided pulmonary emboli -Suspecting malignancy as the precipitant -Continue heparin gtt for now given potential for more procedures with Dr. Bethea, with plan for eventual NoAC 4. COPD -Stable, no wheezing at this time -He was placed on a steroid taper on 06/01/2020. Start at 40mg qD and taper by 10mg every 4 days. Currently down to 20mg qD. -Continue to taper prednisone off -Continue inhalers and rescue inhaler 5. Right lung nodule with now confirmed adenocarcinoma by cytology -Followed by Dr. Walker outpatient -Oncology consulted, to f/u path and establish outpatient for treatment 6. Diabetes mellitus -Holding metformin -Insulin sliding scale -FSBG AC/HS -hypoglycemia protocol 7. Hypertension -Continue Lisinopril 8. Paroxysmal atrial fibrillation -[id number] score of 1 -He follows with cardiology outpatient. Patient reports that he did have discussion about anticoagulation and decided to do aspirin since he has a [id number] score of 1. He is aware that the risk of atrial fibrillation is an embolic stoke. -Not in atrial fibrillation at this time. He says he has been cardioverted out of atrial fibrillation -currently anticoagulated for acute PEs 9. DVT ppx -continue heparin gtt VS,Fishbone, I+O VS, Fishbone, I+O Laboratory Tests 06/12/20 06:59 Vital Signs Date Time Temp Pulse Resp B/P (MAP) Pulse Ox O2 Delivery O2 Flow Rate FiO2 06/12/20 07:41 98.2 72 18 131/60 (83) 96 Nasal Cannula 2.0 I&O- Last 24 Hours up to 6 AM 06/12/20 05:59 Intake Total 2277 ml Output Total 1056 ml Balance 1221 ml LORENA MOON MD Jun 12, 2020 09:01
[2020-06-12 11:40] VITALS: BP 115/68
[2020-06-12 15:45] VITALS: BP 129/61
[2020-06-12 20:00] VITALS: BP 128/60
[2020-06-12] MEDS: PERCOCET 5MG/325MG TAB PO PRN (20:44)
[2020-06-13] VITALS (7 sets, daily range): BP systolic 112–163; BP diastolic 53–88
[2020-06-13] MEDS: LEVALBUTEROL 1.25 MG/0.5 ML CONCENTRATE NEB NEB SCH ×4 (02:00→20:00)
[2020-06-13] MEDS: KETOROLAC 30 MG/ML 1ML VIAL IV SCH ×2 (02:39→09:10)
[2020-06-13] MEDS: HEPARIN DRIP 25,000 UNITS in IV 1 EA IV SCH (04:36)
[2020-06-13] MEDS: SLF 3 ML SYR IV SCH ×3 (06:04→20:36)
[2020-06-13 06:46] LABS: BASO # 0.1 10^3/uL (0.0-0.2); BASO % 0.4 % (0.0-1.0); EOS # 0.3 10^3/uL (0.0-0.5); EOS % 1.8 % (0.0-3.0); HEMATOCRIT 38.6 % (42.0-52.0); HEMOGLOBIN 12.4 g/dl (13.5-17.5); LYMPH # 3.1 10^3/uL (1.5-5.0); LYMPH % 19.1 % (24.0-44.0); MEAN CORPUSCULAR HEMOGLOBIN 29.5 pg (27.0-33.0); MEAN CORPUSCULAR HGB CONC 32.1 g/dl (32.0-36.5); MEAN CORPUSCULAR VOLUME 91.7 fl (80.0-96.0); MONO % 6.3 % (0.0-5.0); NEUTROPHILS # 11.6 10^3/uL (1.5-8.5); NEUTROPHILS % 70.5 % (36.0-66.0); PLATELET COUNT, AUTOMATED 261 10^3/uL (150-450); RED BLOOD COUNT 4.21 10^6/uL (4.30-6.10); WHITE BLOOD COUNT 16.4 10^3/uL (4.0-10.0)
[2020-06-13 06:59] LABS: BLOOD UREA NITROGEN 17 MG/DL (7-18); CALCIUM LEVEL 8.8 MG/DL (8.8-10.2); CARBON DIOXIDE LEVEL 31 MEQ/L (21-32); CHLORIDE LEVEL 101 MEQ/L (98-107); CREATININE FOR GFR 0.76 MG/DL (0.70-1.30); GLOMERULAR FILTRATION RATE > 60.0 (>49); GLUCOSE, FASTING 145 MG/DL (70-100); POTASSIUM SERUM 4.1 MEQ/L (3.5-5.1); SODIUM LEVEL 137 MEQ/L (136-145)
[2020-06-13] MEDS: SYMBICORT 160/4.5MCG INHALER 6GM INH SCH ×2 (08:21→20:37)
--- NOTE | 2020-06-13 08:22 | REP ---
INDICATION: pleural effusion COMPARISON: 06/12/2020 TECHNIQUE: PA and lateral. FINDINGS: Right-sided chest tube in stable position. Right pleuroparenchymal changes are relatively stable. A miniscule residual pneumothorax along with small amount of subcutaneous emphysema is again noted and essentially unchanged. Subtle bilateral perihilar and right lower lobe airspace disease cannot be excluded. Mediastinum and cardiac silhouette are stable and within normal limits. Skeletal structures are intact. IMPRESSION: 1. Right chest tube and associated pleuroparenchymal changes including miniscule pneumothorax again noted and relatively stable. 2. Subtle perihilar and basilar airspace disease cannot be excluded. <Electronically signed by Ashok Mills > 06/13/20 0818
[2020-06-13] MEDS: MULTIVITAMINS/MINERALS THERAP 1 TAB PO SCH (09:08)
[2020-06-13] MEDS: PANTOPRAZOLE 40MG TAB (PROTONIX) PO SCH (09:08)
[2020-06-13] MEDS: ATORVASTATIN 20 MG TAB PO SCH (09:09)
[2020-06-13] MEDS: DOCUSATE SODIUM 100MG CAPSULE PO SCH ×2 (09:09→20:36)
[2020-06-13] MEDS: MOM 30ML SUSPENSION UDC PO SCH (09:09)
[2020-06-13] MEDS: HumaLOG INSULIN (NovoLOG) PER UNIT SC SCH ×4 (09:11→20:30)
[2020-06-13] MEDS: predniSONE 10 MG TAB PO SCH (09:12)
[2020-06-13] MEDS: ASPIRIN 81 MG ENTERIC TAB PO SCH (09:34)
[2020-06-13] MEDS: lisinopriL 5 MG TAB PO SCH (09:34)
--- NOTE | 2020-06-13 09:35 | IPN ---
PROGRESS NOTE DATE: 06/12/2020 SUBJECTIVE: Mr. Ratliff is doing quite well today. There is no longer an air leak and he is putting less out the chest tube than he was. It is still not enough to remove it. OBJECTIVE: VITAL SIGNS: Show a T-max of 98.2, heart rate that ranges between 65 and 80 in a sinus rhythm, respiratory rate of 18-19 without the use of accessory muscle who is 96% to 97% saturated, and his blood pressure is ranging between 152/73 to 115/68. He is still on 2 liters nasal cannula. We will wean that today. INTAKE AND OUTPUT: Over the past 24 hours has been recorded as 360 in and 350 out. For near equality. He has put 150 mL out the chest tube. His weight is pending today. RESPIRATORY: He has equal breath sounds on either side. There are some coarse rhonchi on the right lower base. Percussion note is full to the diaphragm. CARDIAC: Without murmurs, clicks, gallops, or rubs. I cannot feel his PMI. S1 and S2 are normal. ABDOMEN: Soft and nontender. Bowel sounds are positive. There is no hepatomegaly. No costovertebral angle (CVA) tenderness. EXTREMITIES: Show no pretibial edema. No calf tenderness. No differential swelling of the upper extremities. SKIN: Warm, dry, and perfused without cyanosis or mottling, including that of the nail beds and knees. NECK: Supple. There is no jugular venous distention. No subcutaneous emphysema. Trachea is midline. MOUTH: Shows the mucous membranes to be pink and moist. Lips and gums without lesions and no thrush. EYES: Show his pupils equal and reactive. Extraocular movements are intact. Sclerae nonicteric. NEUROLOGIC: Shows II through XII intact. Normal gross motor, gross sensation intact. Gait is not tested. PSYCHIATRIC: Shows his to be awake, alert, and oriented x3 with appropriate mood and affect and conversational. LABORATORY DATA: His white count today is 14.4 essentially slightly increased from 13.8 yesterday. Hemoglobin and hematocrit are 12.9 and 31.5 increased from yesterday with a platelet count of 303,000 and stable. Differential shows 69% neutrophils, 21% lymphocytes, and 7% monocytes. There are no immature forms and toxic granulations. Chemistries today show normal electrolytes with a BUN and creatinine of 17 and 0.83, glucose of 132, and a calcium of 8.9. IMAGING: His chest x-ray today show his lungs fully expand to the chest wall. There is less subcutaneous emphysema at the chest tube insertion site. Chest tube is in good place. Latter film does not show any posterior infiltrates or opacities. IMPRESSION: 1. Metastatic adenocarcinoma stage IV of the pleura. 2. Right upper lobe lesion most likely the primary lesion. 3. Chronic obstructive pulmonary disease (COPD). 4. Remote history of atrial fibrillation. 5. Multiple pulmonary emboli; probably underlying hypercoagulable state from metastatic disease. 6. Hypertension. 7. Diabetes. PLAN AND DISCUSSION: I do note that his PTT his 79 seconds. I have asked that he be placed back on heparin just in case I had to take him to the operating room. Hopefully that will not happen. We can always discontinue the heparin if I decide to remove the chest tube and place him back on Xa inhibitor. Today, I will discontinue his chest tube suction. We will continue to follow his x-rays and I will also diurese him.
[2020-06-13] MEDS ORDERED: FUROSEMIDE 40MG/4ML VIAL (J1940) IV ONE (10:00)
--- NOTE | 2020-06-13 10:12 | IPN ---
PROGRESS NOTE DATE: 06/13/2020 SUBJECTIVE: Mr. Yepez air leak has now stopped x2 days and I will therefore remove his chest tube. He has put more out the chest tube than I would want; however, considering the size of his pleural effusion and the fact that he has underlying metastatic disease, I am very sure that the effusion is going to re-accumulate, and I will have to place a PleurX catheter when there is a target. OBJECTIVE: VITAL SIGNS: Show a T-max of 97.9 with a heart rate that ranges between 64-74 in sinus rhythm. Respiratory rate that is a constant 18 who is 91% to 96% saturated on 2 liters nasal cannula and his blood pressure is ranging between 152/86 to 163/88. INTAKE AND OUTPUT: Over the past 24 hours has been recorded as 1356 in and 1160 out. For a negativity of 304 mL. His chest tube has put out 310 mL and there is no air leak. Weight today is 83 kg compared to 82.6 kg yesterday. RESPIRATORY: He has equal breath sounds on either side. There are occasional rhonchi, which clear with coughing. Percussion notes are full to the diaphragm. CARDIAC: Without murmurs, clicks, gallops, or rubs. I cannot feel his PMI. S1 and S2 are normal. ABDOMEN: Soft and nontender. Bowel sounds are positive. There is no hepatomegaly. No CVA tenderness. EXTREMITIES: Show no pretibial edema. No calf tenderness. No differential swelling of the upper extremities. SKIN: Warm, dry, and perfused without cyanosis or mottling, including that of the nail beds and knees. NECK: Supple. There is no jugular venous distention. No subcutaneous emphysema. Trachea is midline. MOUTH: Shows the mucous membranes to be pink and moist. Lips and gums without lesions and no thrush. EYES: Show his pupils equal and reactive. Extraocular movements are intact. Sclerae nonicteric. NEUROLOGIC: Shows II through XII intact. Normal gross motor, gross sensation intact. Gait is not tested. PSYCHIATRIC: Shows him to be awake, alert, and oriented x3 with appropriate mood and affect and conversational. LABORATORY DATA: His white count if back up to 16.4 with a hemoglobin and hematocrit of 12.4 and 38.6 respectively. Differential shows 70% neutrophils, 19% lymphocytes, 6% monocytes. There are no immature forms and no toxic granulations. His platelet count is 261,000 and stable. Electrolytes are normal with a BUN and creatinine of 17 and 0.76 with a glucose of 145 and a calcium of 8.8. His PTT today is 79 seconds. IMAGING: His chest x-ray shows his lungs fully expand to the chest wall. There is some minor blunting of the right costophrenic angle. Chest tube is in good place. A vague opacity on the right side indicates his known right upper lobe lesion. IMPRESSION: 1. Metastatic adenocarcinoma stage IV to the pleura. 2. Right upper lobe lesion most likely the primary site. 3. Chronic obstructive pulmonary disease (COPD). 4. Remote history of atrial fibrillation. 5. Multiple pulmonary emboli probably underlying hypercoagulable state from metastatic disease. 6. Hypertension. 7. Diabetes. PLAN AND DISCUSSION: I will remove the chest tubes today. As noted above, I am very sure that the effusion will start to recur and at that point in time, I will put a PleurX catheter in him. I will see him back in the office in a week. I will discontinue the heparin and start him on Eliquis. I will also diurese him one more time today and wean his O2.
[2020-06-13] MEDS: APIXABAN 5 MG TAB (ELIQUIS) PO SCH ×2 (10:24→20:36)
[2020-06-13] MEDS: PERCOCET 5MG/325MG TAB PO PRN ×2 (10:28→16:44)
[2020-06-13] MEDS ORDERED: ELIQ5TAB PO (15:04)
--- NOTE | 2020-06-13 15:06 | IPNPDOC ---
Text Note Date of Service The patient was seen on 06/13/20. NOTE SUBJECTIVE: -No acute events overnight -chest tube out this morning and now on room air OBJECTIVE: General: NAD Eye: EOMI, anicteric ENT: MMM Neck: Supple Chest: Moving air well throughout Heart: Rate Normal, Regular Rhythm Abdomen: Normal bowel sounds, soft, NTND Extremities: No LE edema, WWP Skin: Nl turgor and temperature Neuro: Cranial Nerves 3-12 NL, moving all extremities Psych: AOx3, normal affect Laboratory Data: Reviewed, stable. CXR: lungs fully expanded, RUL consolidation from known mass, otherwise without noted effusions except basilar blunting Assessment: 64 year old M with COPD and right lung nodule who presented with dyspnea and found to have large right pleural effusion and multiple left sided pulmonary emboli s/p chest tube placement and drainage with clinical improvement with pleural fluid analysis showing newly identified adenocarcinoma. Plan 1. Acute hypoxemic respiratory failure 2/2 PE and large R pleural effusion 2/2 adenocarcinoma. Hypoxia has resolved at this time, now on room air. -now on room ait -s/p pleural effusion drainage -Switched from heparin gtt for left pulmonary embolus to eliquis this morning by Dr. Bethea -No air leak note by Dr. Bethea, so started on NoAC 2. Large right pleural effusion, malignant with cytology positive for adenocarcinoma -History of smoking with right lung nodule -CT surgery following, s/p thoracentesis with chest tube placement -Now confirmed to be most likely malignancy related with cytology positive for adenocarcinoma -CT surgery planning for repeat imaging now that the effusion is out of the way --> repeat CT chest show RUL mass -Oncology consulted for newly noted stage 4 adenocarcinoma given +pleural fluid, to follow in outpatient onc 3. Multiple left-sided pulmonary emboli -Suspecting malignancy as the precipitant -Was switchedr from heparin gtt to eliquis by Dr. Bethea this AM 4. COPD -Stable, no wheezing at this time -He was placed on a steroid taper on 06/01/2020. Start at 40mg qD and taper by 10mg every 4 days. Currently down to 20mg qD. -Continue to taper prednisone off -Continue inhalers and rescue inhaler 5. Right lung nodule with now confirmed adenocarcinoma by cytology -Followed by Dr. Walker outpatient -Oncology consulted, to f/u path and establish outpatient for treatment 6. Diabetes mellitus -Holding metformin -Insulin sliding scale -FSBG AC/HS -hypoglycemia protocol 7. Hypertension -Continue Lisinopril 8. Paroxysmal atrial fibrillation -[id number] score of 1 -He follows with cardiology outpatient. Patient reports that he did have discuss ion about anticoagulation and decided to do aspirin since he has a [id number] score of 1. He is aware that the risk of atrial fibrillation is an embolic stoke. -Not in atrial fibrillation at this time. He says he has been cardioverted out of atrial fibrillation -currently anticoagulated for acute PEs 9. DVT ppx: Eliquis 10 BID, day 1 of 7, with plan for 5mg BID thereafter VS,Fishbone, I+O VS, Fishbone, I+O Laboratory Tests 06/13/20 06:15 Vital Signs Date Time Temp Pulse Resp B/P (MAP) Pulse Ox O2 Delivery O2 Flow Rate FiO2 06/13/20 10:28 18 Room Air 06/13/20 09:34 163/88 06/13/20 08:00 97.9 67 96 2.0 I&O- Last 24 Hours up to 6 AM 06/13/20 06:00 Intake Total 996 ml Output Total 1910 ml Balance -914 ml LORENA MOON MD Jun 13, 2020 10:44
[2020-06-14] VITALS: BP 125/59
[2020-06-14] MEDS: LEVALBUTEROL 1.25 MG/0.5 ML CONCENTRATE NEB NEB SCH ×3 (02:00→13:27)
[2020-06-14 04:00] VITALS: BP 136/66
[2020-06-14 06:11] LABS: BASO # 0.1 10^3/uL (0.0-0.2); BASO % 0.4 % (0.0-1.0); EOS # 0.3 10^3/uL (0.0-0.5); EOS % 1.4 % (0.0-3.0); HEMATOCRIT 40.7 % (42.0-52.0); LYMPH # 2.5 10^3/uL (1.5-5.0); MEAN CORPUSCULAR HEMOGLOBIN 29.5 pg (27.0-33.0); MEAN CORPUSCULAR HGB CONC 31.9 g/dl (32.0-36.5); MEAN CORPUSCULAR VOLUME 92.5 fl (80.0-96.0); MONO # 1.1 10^3/uL (0.0-0.8); MONO % 5.8 % (0.0-5.0); NEUTROPHILS # 14.7 10^3/uL (1.5-8.5); PLATELET COUNT, AUTOMATED 293 10^3/uL (150-450); WHITE BLOOD COUNT 18.8 10^3/uL (4.0-10.0)
[2020-06-14] MEDS: SLF 3 ML SYR IV SCH (06:14)
[2020-06-14 06:36] LABS: BLOOD UREA NITROGEN 19 MG/DL (7-18); CALCIUM LEVEL 9.1 MG/DL (8.8-10.2); CARBON DIOXIDE LEVEL 31 MEQ/L (21-32); CHLORIDE LEVEL 102 MEQ/L (98-107); CREATININE FOR GFR 0.85 MG/DL (0.70-1.30); GLOMERULAR FILTRATION RATE > 60.0 (>49); GLUCOSE, FASTING 139 MG/DL (70-100); POTASSIUM SERUM 4.4 MEQ/L (3.5-5.1); SODIUM LEVEL 140 MEQ/L (136-145)
[2020-06-14] MEDS: SYMBICORT 160/4.5MCG INHALER 6GM INH SCH (07:41)
[2020-06-14 08:00] VITALS: BP 143/65
[2020-06-14] MEDS: MOM 30ML SUSPENSION UDC PO SCH (08:19)
[2020-06-14] MEDS: ASPIRIN 81 MG ENTERIC TAB PO SCH (08:20)
[2020-06-14] MEDS: APIXABAN 5 MG TAB (ELIQUIS) PO SCH (08:20)
[2020-06-14] MEDS: HumaLOG INSULIN (NovoLOG) PER UNIT SC SCH ×2 (08:20→12:48)
[2020-06-14 08:22] VITALS: BP 143/65
[2020-06-14] MEDS: predniSONE 10 MG TAB PO SCH (08:22)
[2020-06-14] MEDS: lisinopriL 5 MG TAB PO SCH (08:22)
[2020-06-14] MEDS: ATORVASTATIN 20 MG TAB PO SCH (08:23)
[2020-06-14] MEDS: DOCUSATE SODIUM 100MG CAPSULE PO SCH (08:23)
[2020-06-14] MEDS: MULTIVITAMINS/MINERALS THERAP 1 TAB PO SCH (08:23)
[2020-06-14] MEDS: PANTOPRAZOLE 40MG TAB (PROTONIX) PO SCH (08:23)
--- NOTE | 2020-06-14 09:51 | REP ---
INDICATION: pleural effusion COMPARISON: 06/13/2020 TECHNIQUE: PA and lateral. FINDINGS: The mediastinum and cardiac silhouette are stable and grossly within normal limits. Previous right chest tube has been removed. Right-sided pleuroparenchymal changes, small amount of subcutaneous emphysema, and miniscule residual pneumothorax again noted and essentially unchanged. Left hemithorax demonstrates chronic stable changes. Skeletal structures are intact. IMPRESSION: Right chest tube removed. Right-sided pleuroparenchymal changes without significant change from prior examination. <Electronically signed by Ashok Mills > 06/14/20 0919
[2020-06-14 12:00] VITALS: BP 131/63
[2020-06-14] MEDS ORDERED: BISACODYL 10 MG SUPP PR ONE (12:00)
[2020-06-14] MEDS ORDERED: DOK1CAP7 PO (12:10)
[2020-06-14] MEDS ORDERED: PANT40TA29 PO (12:10)
[2020-06-14] MEDS ORDERED: PERCOCET PO (12:16)
--- NOTE | 2020-06-14 12:49 | DS.PDOC ---
Discharge Summary General Date of Admission Jun 08, 2020 at 09:17 Date of Discharge 06/14/2020 Attending Physician: LORENA MOON MD Discharge Summary PROCEDURES PERFORMED DURING STAY: Chest tube placement and fluid drainage by Dr. Bethea ADMITTING DIAGNOSES: 1. SOB DISCHARGE DIAGNOSES: Hypoxemic respiratory failure Pulmonary embolism New diagnosis of stage 4 adenocarcinoma with noted RUL lung mass and adenocarcinoma in pleural fluid R sided pleural effusion Diabetes mellitus type 2 COPD without exacerbation, with ongoing prednisone taper that was continued while inpatient Chronic atrial fibrillation COMPLICATIONS/CHIEF COMPLAINT: Pleural Effusion,Rt,Pulmonary Embolism. HISTORY OF PRESENT ILLNESS: 64 year old man, former smoker, with a history of COPD and lung nodules who was admitted with worsening shortness of breath and found to have a large right ple ural effusion as well as left sided pulmonary embolism. Of note, the outpatient flight engineer instructor had been planning to do a biopsy of his right lung nodule. Prior to doing this procedure, he wanted the patient's respiratory status to be better per patient report. Patient was on Budesonide/Formoterol, Umeclidinium, and a prednisone taper (40mg qD and taper by 10mg every 4 days starting on 06/01/2020. He will start 20mg qD tomorrow). His breathing did not improve and he came into the ED. HOSPITAL COURSE: While in the ED, he required 4L of NC to maintain saturation of 89. He was given solumedrol and duonebs. CTA demonstrated a large right pleural effusion and left pulmonary embolus. Dr. Bethea, CT surgery, was consulted and he was started on a heparin drip. Dr. Bethea placed a R sided chest tube and sent off studies with improvement in his respiratory status. His pleural fluid cytology came back positive for adenocarcinoma. I consulted heme/onc given the diagnosis of stage for adenoCA of likely lung and they recommended follow up outpatient for path results and treatment plan. He also had a post drainage CT chest that revealed a RUL mass, the likely primary site. His hypoxemia resolved, chest tube was removed and is now being discharged home on eliquis with plan for PCP, thoracic surgery and onc follow up. DISCHARGE MEDICATIONS: Please see below. ALLERGIES: Please see below. PHYSICAL EXAMINATION ON DISCHARGE: VITAL SIGNS: Please see below. General: NAD Eye: EOMI, anicteric ENT: MMM Neck: Supple Chest: Moving air well throughout, on room air, clear. Heart: Rate Normal, Regular Rhythm Abdomen: Normal bowel sounds, soft, NTND Extremities: No LE edema, WWP Skin: Nl turgor and temperature Neuro: Cranial Nerves 3-12 NL, moving all extremities Psych: AOx3, normal affect LABORATORY DATA: Please see below. IMAGING: CTA chest: 1. Multiple left-sided pulmonary emboli, most conspicuously visualized in the proximal left lower lobe pulmonary artery. 2. COPD and asymmetric right-sided airspace disease, disproportionately lower lobe in distribution. 3. Large right pleural effusion. 4. Additional findings as described above. Admission CXR: Extensive right-sided airspace disease and pleural effusion obscuring the right heart border and right hemidiaphragm. Post drainage CT chest: 1. Small/moderate residual right pneumothorax with minimal small presumed areas of atelectasis/consolidation primarily noted at the right base. Small scattered nodular densities in the right mid to lower lung zone cannot be excluded. Previous pleural effusion has resolved. 2. 3.2 cm spiculated mass along the posterior right upper lobe. 3. Underlying advanced COPD/emphysematous changes with scattered scarring. Discharge CXR: Previous right chest tube has been removed. Right-sided pleuroparenchymal changes, small amount of subcutaneous emphysema, and miniscule residual pneumothorax again noted and essentially unchanged. Left hemithorax demonstrates chronic stable changes. Skeletal structures are intact. PROGNOSIS: Good, long term care administrator prognosis pending pathology and onc evaluation ACTIVITY: As tolerated DIET: consistent carb DISCHARGE PLAN: Home with PCP, onc and thoracic surgery follow up DISPOSITION: Home DISCHARGE INSTRUCTIONS: 1. Home with PCP, onc and thoracic surgery follow up ITEMS TO FOLLOWUP ON ON OUTPATIENT: 1. PEs, newly on eliquis 2. Metastatic adenocarcinoma DISCHARGE CONDITION: Stable. TIME SPENT ON DISCHARGE:47 minutes. Vital Signs/I&Os Vital Signs Date Time Temp Pulse Resp B/P (MAP) Pulse Ox O2 Delivery O2 Flow Rate FiO2 06/14/20 08:22 143/65 06/14/20 08:00 97.4 74 20 95 Room Air 06/13/20 15:43 I&O- Last 24 Hours up to 6 AM 06/14/20 06:00 Intake Total 640 ml Output Total 2150 ml Balance -1510 ml Laboratory Data Labs 24H Laboratory Tests 2 06/13/20 16:50: Bedside Glucose (Misc Panel) 286H 06/13/20 18:59: Bedside Glucose (Misc Panel) 216H 06/14/20 05:41: Immature Granulocyte % (Auto) 1.4, Neutrophils (%) (Auto) 78.0H, Lymphocytes (%) (Auto) 13.0L, Monocytes (%) (Auto) 5.8H, Eosinophils (%) (Auto) 1.4, Basophils (%) (Auto) 0.4, Neutrophils # (Auto) 14.7H, Lymphocytes # (Auto) 2.5, Monocytes # (Auto) 1.1H, Eosinophils # (Auto) 0.3, Basophils # (Auto) 0.1, Nucleated Red Blood Cells % (auto) 0.0, Anion Gap 7L, Glomerular Filtration Rate > 60.0, Calcium Level 9.1 06/14/20 07:43: Bedside Glucose (Misc Panel) 148H 06/14/20 11:58: Bedside Glucose (Misc Panel) 231H CBC/BMP Laboratory Tests 06/14/20 05:41 FSBS Laboratory Tests Test 06/13/20 16:50 06/13/20 18:59 06/14/20 07:43 06/14/20 11:58 Range/Units Bedside Glucose (Misc Panel) 286 216 148 231 80-115 MG/DL Microbiology Microbiology 06/08/20 Acid Fast Stain, Received Pending 06/08/20 Mycobacterial Culture, Received Pending 06/08/20 Fungal Smear, Received Pending 06/08/20 Fungal Culture, Received Pending 06/08/20 Gram Stain - Final, Complete 06/08/20 Anaerobic Culture - Final, Complete 06/08/20 Body Fluid Culture - Final, Complete Discharge Medications Scheduled Apixaban (Eliquis) 5 Mg Tablet, 5 MG PO BID 10mg (2 tabs) twice daily for 6 days, then 5mg (1 tab) twice daily thereafter. Aspirin (Aspirin EC) 81 Mg Tablet.dr, 81 MG PO DAILY, (Reported) Atorvastatin Calcium (Atorvastatin Calcium) 20 Mg Tablet, 20 MG PO DAILY, (Reported) Budesonide/Formoterol (Symbicort 160-4.5 Mcg Inhaler) 6 Gm Hfa.aer.ad, 2 PUFF INH BID, (Reported) Docusate Sodium (Dok) 100 Mg Capsule, 100 MG PO BID Lisinopril (Lisinopril) 5 Mg Tablet, 5 MG PO DAILY, (Reported) Metformin HCl (Metformin HCl) 500 Mg Tablet, 500 MG PO DAILY, (Reported) Multivitamins (Thera M Plus Tablet) 1 Each Tablet, 1 TAB PO DAILY, (Reported) Pantoprazole Sodium (Pantoprazole Sodium) 40 Mg Tablet.dr, 40 MG PO DAILY Prednisone (Prednisone) 10 Mg Tablet, 30 MG PO DAILY, (Reported) TAPER DOSE STARTED 06/01/20 - 40MG DAILY x 4 DAYS, 30MG DAILY X 4 DAYS, 20MG DAILY X 4 DAYS, 10MG DAILY X 4 DAYS - DUE TO BEGIN 20MG ON 06/09/20 Umeclidinium [place] (Incruse Ellipta) 62.5 Mcg Blst.w.dev, 1 PUFF INH DAILY, (Reported) Scheduled PRN Acetaminophen (Acetaminophen) 500 Mg Tablet, 1,000 MG PO Q6H PRN for PAIN, (Reported) Albuterol Sulfate (Proair Hfa) 8.5 Gm Hfa.aer.ad, 2 PUFF INH Q6H PRN for SHORTNESS OF BREATH, (Reported) Ipratropium/Albuterol Sulfate (Iprat-Albut 0.5-3(2.5) mg/3 ml) 3 Ml Ampul.neb, 1 VIAL NEB QID PRN for SHORTNESS OF BREATH, (Reported) Allergies Coded Allergies: shellfish derived (Verified Allergy, Intermediate, hives, 06/08/20) LORENA MOON MD Jun 14, 2020 12:49
--- NOTE | 2020-06-15 10:50 | IPN ---
PROGRESS NOTE DATE: 06/14/2020 SUBJECTIVE: Mr. Ratliff is breathing well today. His chest tube was removed yesterday, and his chest x-ray shows his lungs fully expanded. Chest wall with just the most minor blunting of the right costophrenic angle. PHYSICAL EXAMINATION: Vital signs: His vital signs show a T-max of 98.2 with a heart rate that ranges between 74 and 86 and a sinus rhythm, respiratory rate of 18-20 without the use of accessory muscles, and he is 91 to 97% saturated on room air, and his blood pressure is ranging between 143/65 to 125/59. His intake and output for the past 24 hours has been recorded as 640 in and 1950 out for a negativity of 1310 cc. His weight today is 82.5 kg compared to 83 kg yesterday. Lungs: On physical examination, he has equal breath sounds on either side. I hear no wheezes, rhonchi or rales today. Percussion notes are full to the diaphragm. Cardiac: Without murmurs, clicks, gallops, or rubs. I cannot feel his PMI. S1 and S2 are normal. Abdomen: Soft, nontender. Bowel sounds are positive. There is no hepatomegaly. No CVA tenderness. Extremities: No pretibial edema. No calf tenderness. No differential swelling of the upper extremities. Skin: Warm, dry, and perfused without cyanosis or mottling including that of the nail beds and knees. Neck: Supple. There is no jugular venous distention. No subcutaneous emphysema. Trachea is midline. Mouth: Shows the mucous membranes to be pink and moist. Lips and gums without lesions and no thrush. Eyes: Show the pupils equal and reactive. Extraocular movements are intact. Sclerae are nonicteric. Neurologic: Shows II through XII intact. Normal gross motor and normal gross sensation intact. Gait is not tested. Psychiatric: Shows him to be awake, alert, and oriented x3 with appropriate mood and affect and conversational. LABORATORY DATA: His white count today is 18.8 with a hemoglobin and hematocrit of 13.0 and 40.7. Platelet count is 293 and stable. Differential shows 78% neutrophils, 13% lymphocytes, 5% monocytes. There were no immature forms or toxic granulations. Chemistries today show normal electrolytes with a BUN and creatinine of 19 and 0.85, calcium 9.1, and a glucose of 139. His chest x-ray again shows the lungs fully expanded to the chest wall with the most minimal blunting of the right costophrenic angle. I see no infiltrates. IMPRESSION: 1. Malignant pleural effusion, adenocarcinoma stage 4 to the pleura. 2. Right upper lobe lesion most likely the primary site. 3. COPD. 4. Remote history of atrial fibrillation. 5. Multiple pulmonary emboli secondary to underlying hypercoagulable state from metastatic disease. 6. Hypertension. 7. Diabetes. PLAN AND DISCUSSION: He will come back to see me in one week with a follow up chest x-ray. He has been started on Eliquis for his pulmonary emboli. I removed his bandage, and his wound is nicely closed. He may take showers now and get the wound wet but not immersed. He is not complaining of much pain, and, therefore, I suggested Aleve over the counter for pain control.
== END 2020-06-14 14:50 | disposition home or self-care (01) | DRG 136 ==
LOC: M ED 03:56 → M ED INP 09:17 → ENRESERV 09:47 → M PCU 10:36
PROVIDERS: ADMIT Internal Medicine; ATTEND Internal Medicine
PROC: 0W9930Z Drainage of Right Pleural Cavity with Drainage Device, Percutaneous Approach (ICD-10-PCS; principal; 2020-06-08)
DX: C34.11 Malignant neoplasm of upper lobe, right bronchus or lung (principal); I26.99 Other pulmonary embolism without acute cor pulmonale; J96.01 Acute respiratory failure with hypoxia; J91.0 Malignant pleural effusion; I48.0 Paroxysmal atrial fibrillation; I48.20 Chronic atrial fibrillation, unspecified; J44.9 Chronic obstructive pulmonary disease, unspecified; E11.9 Type 2 diabetes mellitus without complications; Z87.891 Personal history of nicotine dependence; Z79.82 Long term (current) use of aspirin; Z79.899 Other long term (current) drug therapy; Z91.013 Allergy to seafood; I10 Essential (primary) hypertension

== ENCOUNTER → 2020-06-24 | Outpatient (CLI) | payer OTHER ==
[~2020-06-24] MED LIST: ACET-683 PO; ACET1TAB16 PO; ASPI-531 PO; ATOR1TAB21 PO; DECA4TAB PO; DOK1CAP7 PO; ELIQ5TAB PO; FOLI1TAB11 PO; GASTROGRAFIN SOLUTION 30ML (Q9963) As Ordered ONE; INCR1INH INH; IPRA0.00 NEB; ISOVUE-370 76% 100ML VIAL As Ordered ONE; LISI-542 PO; METF-839 PO; OLAN10TA2 PO; ONDA8TAB10 PO; ONDA8TAB8 PO; PANT40TA29 PO; PERCOCET PO; PRED10TA2 PO; PRED20TA PO; PROAAER10 INH; SYMB16INH INH; SYMB80INH INH; VITMTA PO
--- NOTE | 2020-06-24 17:27 | REP ---
INDICATION: LUNG CA, STAGING COMPARISON: CT chest 06/10/2020. TECHNIQUE: CT Scan of the abdomen was performed with intravenous administration of 100 cc of Isovue 370, and oral contrast. FINDINGS: Lung bases: Moderate amount of loculated pleural fluid is seen on the right. There is mild patchy parenchymal opacity in the inferior right lung. There is a noncalcified subcentimeter nodular density as well as a calcified granuloma in the right lung base. Liver: Normal Gallbladder: Unremarkable. Spleen: There are couple of calcified granulomas in the spleen. Adrenals: Normal. Pancreas: Normal. Kidneys: Normal. Small and large bowel: Unremarkable. Free fluid: None. Abdominal aorta: No aneurysm or dissection. Adenopathy: None. Osseous structures: There are degenerative changes of the spine without compression deformity. IMPRESSION: Moderate amount of loculated right pleural fluid, with mild patchy parenchymal opacity in the right lung base. Also seen in the right lung bases a calcified granuloma and a subcentimeter noncalcified nodular density. No mass or adenopathy in the abdomen. <Electronically signed by Jhoan Reed > 06/24/20 [id number]
== END ==
LOC: M RAD 15:33
PROVIDERS: ATTEND Internal Medicine Hematology & Oncology
DX: C34.90 Malignant neoplasm of unspecified part of unspecified bronchus or lung (principal)
CPT/HCPCS: 74177; Q9963; Q9967

== ENCOUNTER → 2020-06-29 | Outpatient (CLI) | payer OTHER ==
[~2020-06-29] MED LIST changes: +ALEV220T22 PO; +DOCU100C17 PO; -GASTROGRAFIN SOLUTION 30ML (Q9963) As Ordered ONE; +HYDR-3715 PO; -ISOVUE-370 76% 100ML VIAL As Ordered ONE; +LIDOCAINE 1% MDV 20ML VIAL As Ordered ONE; -LISI-542 PO; +LISI-898 PO; +MIDAZOLAM INJ 2MG/2ML VIAL (J2250 PER 1MG) As Ordered ONE; +NYST50SS PO; +ceFAZolin 1GM VIAL (J0690 PER 500MG) As Ordered ONE; +diphenhydrAMINE 50MG/ML VIAL (J1200) As Ordered ONE; +fentaNYL 100 MCG/2 ML INJECTION (J3010) As Ordered ONE
--- NOTE | 2020-06-29 09:32 | IRHP ---
[facility] IR Pre-Procedure H & P General Date of Service: Jun 29, 2020 Procedure: Same Day Surgery Interval History and Physical I have seen the patient and reviewed last H & P performed within 30 days. There is no significant interval change. History of Present Illness Chief Complaint The patient is a 64-year-old male admitted with a reason for visit of Malignant Pleural Effusion. PRE-PROCEDURE DIAGNOSIS:lung cancer HEART: normal rate. LUNGS: normal breathing at rest. ASA Classification ASA Classification: III-Severe systemic dis. Mallampati Score: II NPO: Yes Problems with prior sedation: No Obstructive Sleep Apnea: No Plan moderate sedation Allergies Coded Allergies: shellfish derived (Verified Allergy, Intermediate, hives, 06/08/20) Home Medications Scheduled Apixaban (Eliquis), 5 MG PO BID Aspirin (Aspirin EC), 81 MG PO DAILY, (Reported) Atorvastatin Calcium (Atorvastatin Calcium), 20 MG PO DAILY, (Reported) Budesonide/Formoterol (Symbicort 160-4.5 Mcg Inhaler), 2 PUFF INH BID, (Reported) Dexamethasone (Decadron), 4 MG PO BID Docusate Sodium (Dok), 100 MG PO BID Folic Acid (Folic Acid), 1 TAB PO DAILY Lisinopril (Lisinopril), 5 MG PO DAILY, (Reported) Metformin HCl (Metformin HCl), 500 MG PO DAILY, (Reported) Multivitamins (Thera M Plus Tablet), 1 TAB PO DAILY, (Reported) Ondansetron (Ondansetron Odt), 8 MG PO Q6H Pantoprazole Sodium (Pantoprazole Sodium), 40 MG PO DAILY Umeclidinium [place] (Incruse Ellipta), 1 PUFF INH DAILY, (Reported) Scheduled PRN Acetaminophen (Acetaminophen), 1,000 MG PO Q6H PRN for PAIN, (Reported) Acetaminophen with Codeine (Acetaminophen-Cod #3 Tablet), 1 TAB PO TIDP PRN for pain Albuterol Sulfate (Proair Hfa), 2 PUFF INH Q6H PRN for SHORTNESS OF BREATH, (Reported) Ipratropium/Albuterol Sulfate (Iprat-Albut 0.5-3(2.5) mg/3 ml), 1 VIAL NEB QID PRN for SHORTNESS OF BREATH, (Reported) Olanzapine (Olanzapine), 10 MG PO DAILY PRN for SEVERE NAUSEA Discontinued Medications Prednisone (Prednisone), 30 MG PO DAILY, (Reported) Discontinued Reason: Pt states not taking VS, I&O, 24H, Fishbone Vital Signs/I&O Vital Signs Date Time Temp Pulse Resp B/P (MAP) Pulse Ox O2 Delivery O2 Flow Rate FiO2 06/29/20 08:49 98.8 88 20 95 Room Air Laboratory Data 24H LABS Laboratory Tests 2 06/29/20 09:01: Bedside Glucose (Misc Panel) 146H YAZAN HERNANDEZ MD Jun 29, 2020 09:31
--- NOTE | 2020-06-29 11:44 | POST-OPPD ---
Postoperative Procedure Note Date Of Procedure: Jun 29, 2020 Time Of Procedure: 11:42 IR Ultrasound and fluoroscopy guided port placement. IR Ultrasound of the neck. IR Moderate sedation. Clinical indication: Lung cancer. Physician: Dr. Maurice. Procedure: The patient was advised of the benefits, risks, and alternatives of the procedure and informed consent was obtained. A time-out was performed with verification of the patient's name, MRN, site of procedure and type of procedure to be performed. The patient was positioned in the supine position on the angiographic table. The site was prepped and draped in the usual sterile fashion. Moderate sedation was performed by the physician including the presence of an independent trained RN who assisted and monitored the patient's level of consciousness and physiologic status. Following the administration of fentanyl and Versed , the physician spent 45 minutes of continuous face to face time with the patient. Ultrasound of the neck reveals a patent and compressible right internal jugular vein. A administrative coordinator radiograph reveals right pleural effusion and pleural thickening. The neck and anterior chest wall were anesthetized with lidocaine. The right internal jugular vein was accessed using a microintroducer needle under ultrasound guidance, via a lateral approach. An 018 wire was advanced into the superior vena cava, the needle was removed and a microsheath was placed. An Amplatz wire was then passed into the inferior vena cava. An incision at the internal jugular vein access site and anterior chest wall were made using a scalpel. An incision was made at the anterior chest wall. A small pocket was created using a combination of blunt and sharp dissection. A tunneling device was then used to pass the catheter from the pocket to the neck puncture site. An 8- [place] [employer] Smart power port was then positioned in the pocket. The catheter was then measured and cut. The introducer sheath was exchanged for a peel-away sheath. The catheter was passed through the peel-away sheath into the internal jugular vein and the peel-away sheath was removed. The port tip was positioned at the cavoatrial junction. The port was then accessed with a Hernandez needle. The port flushes and aspirates well. The puncture site in the neck was closed. The chest wall incision was then closed with 2-0 Vicryl and 4-0 Monocryl. Glue and Steri- Strips were applied. A sterile dressing was then applied. The patient tolerated the procedure well and was returned to the PRU in stable condition. Estimated blood loss: <5 ml. Complications: None. Conclusion: 1. Successful placement of an 8-[place] Ang[employer] Smart power port via the right internal jugular vein. The port is ready for immediate use. 2. Patient to follow up in IR clinic in 2 weeks. Thank you for this referral. YAZAN MAURICE MD Jun 29, 2020 11:44
[2020-06-29 12:15] VITALS: BP 132/71
== END ==
LOC: M IRPRO 08:36
PROVIDERS: ATTEND Radiology Diagnostic Radiology
DX: C34.90 Malignant neoplasm of unspecified part of unspecified bronchus or lung (principal); J91.0 Malignant pleural effusion; Z79.82 Long term (current) use of aspirin; Z79.899 Other long term (current) drug therapy; Z91.013 Allergy to seafood
CPT/HCPCS: 36561; 99152; 99153; C1769; C1788; C1894; J0690; J1200; J1642; J1644; J2250; J3010

== ENCOUNTER → 2020-07-02 | Outpatient (CLI) | payer OTHER ==
[~2020-07-02] MED LIST changes: -LIDOCAINE 1% MDV 20ML VIAL As Ordered ONE; +LISI-542 PO; -LISI-898 PO; -MIDAZOLAM INJ 2MG/2ML VIAL (J2250 PER 1MG) As Ordered ONE; -NYST50SS PO; -ceFAZolin 1GM VIAL (J0690 PER 500MG) As Ordered ONE; -diphenhydrAMINE 50MG/ML VIAL (J1200) As Ordered ONE; -fentaNYL 100 MCG/2 ML INJECTION (J3010) As Ordered ONE
--- NOTE | 2020-07-02 16:39 | REPPI ---
INDICATION: MALIGNANT PLEURAL EFFUSION, MALIGNANT NEOPLASM R UPPER LOBE COMPARISON: 06/22/2020 TECHNIQUE: PA and lateral. FINDINGS: Ovoid pleural-based opacity along the right lateral mid to lower chest wall consistent with effusion may be slightly increased from prior examination underlying opacities in the right lower lung zone are also slightly increased from prior examination and concerning for active disease. Chronic changes noted bilaterally and similar to prior examination. [id number] identified with tip in the SVC. Cardiac silhouette is grossly normal. IMPRESSION: Increasing moderate partially loculated right pleural effusion and right lower lobe opacity as compared with prior examination. <Electronically signed by Ashok Mills > 07/02/20 [id number]
== END ==
LOC: M PLAIMG 08:37
PROVIDERS: ATTEND Thoracic Surgery (Cardiothoracic Vascular Surgery)
DX: C34.11 Malignant neoplasm of upper lobe, right bronchus or lung (principal); J91.0 Malignant pleural effusion

== ENCOUNTER 2020-07-03 09:04 | Inpatient (IN) | payer OTHER ==
[2020-07-03] VITALS (15 sets, daily range): BP systolic 112–164; BP diastolic 62–89
[~2020-07-03] VITALS: Ht 180.3 cm; Wt 82.6 kg
[2020-07-03] MEDS: MOM 30ML SUSPENSION UDC PO SCH (09:00)
[~2020-07-03 09:04] MED LIST changes: -ALEV220T22 PO; -DOCU100C17 PO; -HYDR-3715 PO
--- OUTSIDE RECORDS SUMMARY | 2020-07-03 09:10 | CCD | Continuity of Care Document ---
Author Jamil Bermudez M.D. Organization Unknown Address [address] [place] [address] Phone [phone] Care Team Providers Care Wire Mesh Gate Assembler Name Role Phone Arelis Nelson M.D. AUTM [phone] AUTM Unavailable Problems Active Problems Provider Date Type 1 diabetes mellitus Ousmane Bethea M.D. Onset: 021 Social History Type Date Description Comments Sex Unknown Tobacco Use Start: Unknown End: Patient is a former smoker hx 10 cigarettes daily x 15 years; quit 2019 Smoking Status Reviewed: 06/22/20 Patient is a former smoker hx 10 cigarettes daily x 15 years; quit 2019 Allergies, Adverse Reactions, Alerts Active Allergies Reaction Severity Comments Date Shellfish-Derived Products 1 08/02/2019 Medications Active Medications SIG Qnty Indications Ordering Provide r Date Incruse Ellipta 62.5mcg/Inh Aeroso l 1 puff every day 30units Kike Amaro MD 06/01/2020 Symbicort 160-4.5mcg/Act Aerosol Inl 2 PFS PO bid Unknown Metformin HCL 500mg Tablets TK 1 T PO bid qd Unknown Atorvastatin Calcium 20mg Tablets TK 1 T qd Unknown Albuterol Sulfate HFA 108(90Base) mcg/Act Aerosol Inl 2 PFS PO qid prn Unknown 000 Lisinopril 5mg Tablets 1 by mouth every day Unknown Oxygen Device 2 L as needed managed through PCP Unknown Eliquis 5mg Tablets 1 tab by mouth twice a day Dr Bethea Pe Unknown Docusate Sodium 100mg Capsules 1 tab by mouth twice a day Unknown Pantoprazole Sodium 40mg Tablets D R 1 tab by mouth every day Unknown Acetaminophen 500mg Tablets 2 tab by mouth as needed Unknown Aspirin [address] 1 tab by mouth every day Unknown Multivitamin Adult Tablets 1 tab by mouth every day Unknown Prednisone 10mg Tablets taper with 2 days left Unknown History Medications Prednisone 10mg Tablets 40mg po qd x 4 days then 30mg qd x 4 days then 20mg qd x 4 days then 10mg qd x 4 days and stop 40tabs Kike Amaro MD 06/01/2020 - 020 Immunizations Description No Information Available Vital Signs Date Vital Result Comment 06/22/2020 10:27am BP Systolic 130 mmHg BP Diastolic 70 mmHg Heart Rate 86 /min O2 % BldC Oximetry 93 % Room Air Height 71 inches 5'11" Weight 182.00 lb BMI (Body Mass Index) 25.4 kg/m2 [place] Body Weight 172 lb Weight 82.555 kg BSA (Body Surface Area) 2.03 m2 06/01/2020 10:08am BP Systolic 130 mmHg BP Diastolic 78 mmHg Heart Rate 71 /min O2 % BldC Oximetry 85 % 88 ra Weight 195.00 lb Weight 88.452 kg Results Description No Information Available Procedures Date Code Description Status 06/01/2020 59099 Aerosol Or Vapor Inhalations Com pleted Medical Devices Description No Information Available Encounters Type Date Location Provider Dx Diagnosis Office Visit 06/01/2020 10:00a [facility]monary/Thoracic Lawrenc isaak Amaro MD R91.1 Solitary pulmonary nodule J43.9 Emphysema, unspecified J96.11 Chronic respiratory failure with hypoxia Z99.81 Dependence on supplemental o xygen Z87.891 Personal history of nicotine dependence Assessments Date Code Description Provider 06/01/2020 R91.1 Solitary pulmonary nodule Ria Amaro MD 06/01/2020 J43.9 Emphysema, unspecified Kike Amaro MD 06/01/2020 J96.11 Chronic respiratory failure with hypoxia Kike Amaro MD 06/01/2020 Z99.81 Dependence on supplemental oxyge n Kike Amaro MD 06/01/2020 Z87.891 Personal history of nicotine dep endence Kike Amaro MD Plan of Treatment Future Appointment(s):* 06/29/2020 9:15 am - Ousmane Bethea M.D. at [facility] Pulmonary/Thoracic Functional Status Description No Information Available Mental Status Description No Information Available Referrals Refer to Reason for Referral Status Appt Date Kike Amaro M.D. [id number] PET SCAN @[facility] Created [facility] [address] [place], [place] [id number] [phone]
--- OUTSIDE RECORDS SUMMARY | 2020-07-03 09:10 | CCD | Summary of Care ---
Author Author [facility] Address Unknown Phone Unavailable Care Team Providers Care Branch Assistant Name Role Phone Izzy Escobar MD PCP Encounter Details Care Team Description Date Type Department 06/08/2020 [facility] Anatomical Encounter Pathology at [place] [address] [place] [address] Allergies Comments Active Allergy Reactions Severity Noted Date Shellfish-Derived 07/25/2013 Products documented as of this encounter (statuses as of 06/17/2020) Medications End Date Status Medication Sig Dispensed Refills Start Date Active Cholecalciferol (VITAMIN Take by 0 D PO)Indications: mouth. Brachial neuritis or radiculitis NOS Active metoprolol (TOPROL-XL) 25 Take 25 mg by 0 MG 24 hr tablet mouth daily. Active aspirin 81 MG tablet Take 81 mg by 0 mouth daily. Active SYMBICORT 160-4.5 MCG/ACT 0 inhaler 5 Active atorvastatin (LIPITOR) 40 0 MG tablet 6 Active Misc. Devices (DURABLE Use as 1 each 0 MEDICAL EQUIPMENT SEE directed. 7 SIG) MISC Continuum Tens Unit Dx: pain Active metformin (GLUCOPHAGE-XR) take 2 0 2 750 MG 24 hr tablet tablets by 7 mouth once daily Active clotrimazole (MYCELEX) 10 0 MG elaine 7 Active doxycycline (VIBRAMYCIN) 0 100 MG capsule 7 Active predniSONE (DELTASONE) 20 0 MG tablet 7 documented as of this encounter (statuses as of 06/17/2020) Active Problems Problem Noted Date Left shoulder pain 06/09/2016 CTS (carpal tunnel syndrome) 06/13/2014 Shoulder weakness 04/09/2014 Shoulder impingement 02/04/2014 Arthritis of left shoulder region 02/04/2014 Brachial neuritis or radiculitis NOS 06/27/2013 Degeneration of cervical intervertebral disc 013 Cervicalgia 12/26/2012 documented as of this encounter (statuses as of 06/17/2020) Social History Date Tobacco Use Types Packs/Day Years Used Quit: 04/22/2013 Current Every Day Smoker 1 20 Smokeless Tobacco: Never Used Comments: quit 04/22/13 Drinks/Week oz/Week Comments Alcohol Use 12 Cans of beer 12.0 Yes Sex Assigned at Date Recorded Not on file documented as of this encounter Last Filed Vital Signs Not on filedocumented in this encounter Plan of Treatment Date/Time Name Type Priority Associated Diag noses 06/16/2020 9:02 AM EST Molecular Diagnostics, Pathology and Routine Anatomic Cytology 06/16/2020 9:03 AM EST [facility] Diagn[facility], Pathology and Routine Anatomic Cytology 06/16/2020 9:04 AM EST [facility], Pathology and Routine Anatomic Cytology 06/16/2020 9:05 AM EST [facility], Pathology and Routine Anatomic Cytology 06/16/2020 9:06 AM EST [facility] Diagnostics, Pathology and Routine Anatomic Cytology Order Schedule Name Type Priority Associated Diag noses Once for 1 Occurrences starting 06/08/20 20 until 06/08/2020 [facility], Pathology and Routine Anatomic Cytology Once for 1 Occurrences starting 06/08/20 20 until 06/08/2020 [facility], Pathology and Routine Anatomic Cytology Once for 1 Occurrences starting 06/08/20 20 until 06/08/2020 [facility], Pathology and Routine Anatomic Cytology Once for 1 Occurrences starting 06/08/20 20 until 06/08/2020 [facility], Pathology and Routine Anatomic Cytology Once for 1 Occurrences starting 06/08/20 20 until 06/08/2020 [facility], Pathology and Routine Anatomic Cytology Health Maintenance Due Date Last Done Comments Hepatitis C Screening (B. 1955 [id number]) MMR Vaccines (1 of 1 - 1958 Standard series) Varicella Vaccines (1 of 1956 2 - 2-dose childhood series) DTaP,Tdap,and Td Vaccines 1964 (1 - Tdap) HIV Screening 1970 Colon Cancer Screening 10 2007 yrs Zoster Vaccines (1 of 2) 2007 Influenza Vaccine 03/19/2020 05/17/2016, 03/24/2015 Pneumococcal Vaccine: 65+ 2022 Years (1 of 1 - PPSV23) HIB Vaccines Aged Out No longer eligible based on patient's age to complete this topic Hepatitis A Vaccines Aged Out No longer eligibl e based on patient's age to complete this topic Hepatitis B Vaccines Aged Out No longer eligibl e based on patient's age to complete this topic IPV Vaccines Aged Out No longer eligible based on patient's age to complete this topic Pneumococcal Vaccine: Aged Out No longer eligib le based on patient's age to Pediatrics (0 to 5 Years) complete this topic and At-Risk Patients (6 to 64 Years) documented as of this encounter Results Not on filedocumented in this encounter
--- OUTSIDE RECORDS SUMMARY | 2020-07-03 09:10 | CCD | Summary of Care ---
Author Author [facility] Address Unknown Phone Unavailable Care Team Providers Care Supervisor Assembling Name Role Phone Arelis Nelson MD PCP Encounter Details Care Team Description Date Type Department 06/11/2020 [facility] Anatomical Encounter Pathology at [place] [address] [place] [address] Allergies Comments Active Allergy Reactions Severity Noted Date Shellfish-Derived 07/25/2013 Products documented as of this encounter (statuses as of 06/12/2020) Medications End Date Status Medication Sig Dispensed [...] pain Active metformin (GLUCOPHAGE-XR) take 2 0 12/18 750 MG 24 hr tablet tablets by 7 mouth once daily Active clotrimazole (MYCELEX) 10 0 MG elaine 7 Active doxycycline (VIBRAMYCIN) 0 100 MG capsule 7 Active predniSONE (DELTASONE) 20 0 MG tablet 7 documented as of this encounter (statuses as of 06/12/2020) Active Problems Problem Noted Date Left shoulder pain 06/09/2016 CTS (carpal tunnel syndrome) 06/13/2014 Shoulder weakness 04/09/2014 Shoulder impingement 02/04/2014 Arthritis of left shoulder region 02/04/2014 Brachial neuritis or radiculitis NOS 06/27/2013 Degeneration of cervical intervertebral disc 013 Cervicalgia 12/26/2012 documented as of this encounter (statuses as of 06/12/2020) Social History Date Tobacco Use Types Packs/Day Years Used Quit: 04/22/2013 Current Every Day Smoker 1 20 Smokeless Tobacco: Never Used Comments: quit 04/22/13 Drinks/Week oz/Week Comments Alcohol Use 12 Cans of beer 12.0 Yes Sex Assigned at Date Recorded Not on file documented as of this encounter Last Filed Vital Signs Not on filedocumented in this encounter Plan of Treatment Health Maintenance Due Date Last Done Comments Hepatitis C Screening (B. 1955 [id number]) MMR Vaccines (1 of 1 - 1956 [...]
--- OUTSIDE RECORDS SUMMARY | 2020-07-03 09:10 | CCD | Continuity of Care Document ---
Author Jamil Bermudez M.D. Organization Unknown Address [address] [place] [address] Phone [phone] Care Team Providers Care Survey Technologist Name Role Phone Arelis Nelson M.D. AUTM [phone] AUTM Unavailable Problems Active Problems Provider Date Type 1 diabetes mellitus Ousmane Bethea M.D. Onset: 021 Social History Type Date Description Comments Sex Unknown Tobacco Use Start: Unknown End: Patient is a former smoker hx 10 cigarettes daily x 15 years; quit 2019 Smoking Status Reviewed: 07/02/20 Patient is a former smoker hx 10 cigarettes daily x 15 years; quit 2019 Allergies, Adverse Reactions, Alerts Active Allergies Reaction Severity Comments Date Shellfish-Derived Products 1 08/02/2019 Medications Active Medications SIG Qnty Indications Ordering Provide r Date Incruse Ellipta 62.5mcg/Inh Aeroso l 1 puff every day 30units Kike Amaro MD 06/01/2020 Symbicort 160-4.5mcg/Act Aerosol 2 puff twice a day 10.200gm Unknown Metformin HCL 500mg Tablets 1 tab by mouth twice a day Unknown Atorvastatin Calcium 20mg Tablets 1 tab by mouth every day Unknown Albuterol Sulfate HFA 108(90Base) mcg/Act Aerosol inhale two puffs by mouth four times a day as needed 17gm Unknown Lisinopril 5mg Tablets 1 by mouth every [...] 1 tab by mouth every day Unknown Albuterol Sulfate (2 .5mg/3ML) 0.083% Nebulizer 1 vial via nebulizer every 4 hours as needed Unknown History Medications Prednisone 10mg Tablets 40mg po qd x 4 days then 30mg qd x 4 days then 20mg qd x 4 days then 10mg qd x 4 days and stop 40tabs Kike Amaro MD 06/01/2020 - 020 Immunizations Description No Information Available Vital Signs Date Vital Result Comment 07/02/2020 9:40am BP Systolic 140 mmHg BP Diastolic 72 mmHg Heart Rate 90 /min O2 % BldC Oximetry 94 % Room Air Height 71 inches 5'11" Weight 190.00 lb BMI (Body Mass Index) 26.5 kg/m2 [place] Body Weight 172 lb Weight 86.184 kg BSA (Body Surface Area) 2.06 m2 06/22/2020 10:27am BP Systolic 130 mmHg BP Diastolic 70 mmHg Heart Rate 86 /min O2 % BldC Oximetry 93 % Room Air Height 71 inches 5'11" Weight 182.00 lb BMI (Body Mass Index) 25.4 kg/m2 [place] Body Weight 172 lb Weight 82.555 kg BSA (Body Surface Area) 2.03 m2 Results Description No Information Available Procedures Date Code Description Status 06/08/2020 79461 Insertion Of Indwelling Tunneled Pleural Catheter W/Cuff Completed 06/01/2020 08538 Inhaler Teaching Completed Medical Devices Description No Information Available Encounters Type Date Location Provider Dx Diagnosis Office Visit 06/22/2020 10:15a [facility] Zena Bethea M.D. 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/Th[facility]acic Zena Bethea M.D. 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Th[facility] Zena Bethea M.D. 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Th[facility] Zena Bethea M.D. 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Th[facility] Zena Bethea M.D. 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Th[facility] Zena Bethea M.D. J90 Pleural effusion, not elsewh ere classified I26.94 Mult subsegmental pulmon emb aj without acute cor pulmonale J44.9 Chronic obstructive pulmonar y disease, unspecified E11.9 Type 2 diabetes mellitus wit hout complications Office Visit 06/01/2020 10:00a 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 07/02/2020 C34.11 Neoplasm of bronchus of right up per lobe Ousmane Bethea M.D. 07/02/2020 I26.94 Pulmonary embolism Ousmane abbott M.D. 07/02/2020 E11.9 Type 2 diabetes mellitus Ousmane Bethea M.D. 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 06/22/2020 C34.11 Neoplasm of bronchus of right up per lobe Ousmane Bethea M.D. 06/22/2020 I26.94 Pulmonary embolism Ousmane abbott M.D. 06/22/2020 E11.9 Type 2 diabetes mellitus Ousmane Bethea M.D. 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 06/14/2020 C34.11 Malignant neoplasm of upper lobe , right bronchus or lung Ousmane Bethea M.D. 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 06/14/2020 J44.9 Chronic obstructive pulmonary di sease, unspecified Ousmane Bethea M.D. 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 06/13/2020 C34.11 Malignant neoplasm of upper lobe , right bronchus or lung Ousmane Bethea M.D. 06/13/2020 J44.9 Chronic obstructive pulmonary di sease, unspecified Ousmane Bethea M.D. 06/13/2020 I26.94 Multiple subsegmenta l pulmonary emboli without acute cor pulmonale Ousmane Bethea M.D. 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 06/12/2020 C34.11 Malignant neoplasm of upper lobe , right bronchus or lung Ousmane Bethea M.D. 06/12/2020 J44.9 Chronic obstructive pulmonary di sease, unspecified Ousmane Bethea M.D. 06/12/2020 I26.94 Multiple subsegmenta l pulmonary emboli without acute cor pulmonale Ousmane Bethea M.D. 06/10/2020 C34.11 Malignant neoplasm of upper lobe , right bronchus or lung Ousmane Bethea M.D. 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 06/10/2020 J44.9 Chronic obstructive pulmonary di sease, unspecified Ousmane Bethea M.D. 06/10/2020 I10 Essential (primary) hypertension Ousmane Bethea M.D. 06/09/2020 C34.11 Malignant neoplasm of upper lobe , right bronchus or lung Ousmane Bethea M.D. 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 06/09/2020 J44.9 Chronic obstructive pulmonary di sease, unspecified Ousmane Bethea M.D. 06/09/2020 I10 Essential (primary) hypertension Ousmane Bethea M.D. 06/08/2020 J90 Pleural effusion, not elsewhere classified Ousmane Bethea M.D. 06/08/2020 I26.94 Multiple subsegmenta l pulmonary emboli without acute cor pulmonale Ousmane Bethea M.D. 06/08/2020 J44.9 Chronic obstructive pulmonary di sease, unspecified Ousmane Bethea M.D. 06/08/2020 E11.9 Type 2 diabetes mellitus without complications Ousmane Bethea M.D. 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 Follow up in the office after procedure. 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 [id number] PET SCAN @[facility] Created [facility] [address] [place], [place] [address] [phone]
--- OUTSIDE RECORDS SUMMARY | 2020-07-03 09:11 | CCD ---
Author Author [facility] Organization [facility] Address [address] [place] [address] Phone Care Team Providers Care Sheet Turner Name Role Phone Vinita GONCALVES, Esha Ruvalcaba Unavailable [phone] Xu ANAESTHESIOLOGIST, Brandie Cabralisaak Unavailable [phone] Reason for Referral No Reason for Referral Recorded Problems Includes: Active, inactive, and resolved Problems All Visits Onset Date - Time Resolved Date - Time Provider Co ndition Status Alcohol Disorders 07/12/2018 - 12:00AM Esha Nelson MD Active Note: Unchanged Chronic Obstructive Pulmonary Disease 07/12/2018 - 12:00AM Esha Nelson MD Active Note: Unchanged Cough 07/12/2018 - 12:00AM Esha Nelson MD A ctive Note: Unchanged - OCCA COUGH Nosebleeds (Epistaxis) 07/12/2018 - 12:00AM Esha Nelson MD Active Note: Unchanged Heartburn Related To Certain Foods Tomatoes 07/12/2018 - 12:00AM Esha Nelson MD Active Note: Unchanged - SXS 1/ MO Impaired Fasting Glucose 07/12/2018 - 12:00AM Esha Nelson MD Active Note: Unchanged Hyperlipidemia 07/12/2018 - 12:00AM Esha Nelson MD Active Note: Unchanged Palpitations 07/12/2018 - 12:00AM Esha Nelson MD A ctive Note: Unchanged - LAST FELT A FIB 1 YR AGO . WENT TO [facility], 2 PILLS GIVEN. FINE 2 HRS LATER, SENT HOME. SAW CARDIO AFTER Plan of Treatment Pending Tests Order Diagnosis Results Due Ordering Provi kylah *Labs (Manual) *FASTING Mixed hyperlipidemia 07/26/18 Justus Nelson MD *Labs (Manual) LIPID Mixed hyperlipidemia 07/26/18 Justus Nelson MD *Labs (Manual) CK Mixed hyperlipidemia 11/08/18 Justus Nelson MD *Labs (Manual) LFT Mixed hyperlipidemia 11/08/18 Justus Nelson MD *Labs (Manual) LIPID Mixed hyperlipidemia 11/08/18 Justus Nelson MD *Labs (Manual) MICROALBUMIN HCC-Type 2 diabetes mellitus wit hout complications 02/07/19 Esha Nelson MD *Labs (Manual) LIPID Mixed hyperlipidemia 02/07/19 Justus Nelson MD *Labs (Manual) LFT Mixed hyperlipidemia 02/07/19 Justus Nelson MD *Labs (Manual) CK Mixed hyperlipidemia 02/07/19 Justus Nelson MD *Labs (Manual) BMP HCC-Type 2 diabetes mellitus without co mplications 02/07/19 Esha Nelson MD *Labs (Manual) TSH HCC-Type 2 diabetes mellitus without co mplications 07/09/19 Esha Nelson MD *Labs (Manual) MICROALBUMIN HCC-Type 2 diabetes mellitus wit hout complications 07/09/19 Esha Nelson MD *Labs (Manual) CK Mixed hyperlipidemia 07/09/19 Justus Nelson MD *Labs (Manual) LIPID Mixed hyperlipidemia 07/09/19 Justus Nelson MD *Labs (Manual) CBC Mixed hyperlipidemia 07/09/19 Justus Nelson MD *Labs (Manual) CMP Mixed hyperlipidemia 07/09/19 Justus Nelson MD *Labs (Manual) MICROALBUMIN HCC-Type 2 diabetes mellitus with other specified complicati 07/09/19 Esha Nelson MD *Labs (Manual) TESTOSTERONE Testicular hypofunction 07/09/19 Arminda Nelson MD *Labs (Manual) PSA Encounter for screening for monico gnant neoplasm of prostate 07/09/19 Esha Nelson MD *Labs (Manual) TESTOSTERONE Testicular hypofunction 08/21/19 Arminda Nelson MD *Labs (Manual) CK Mixed hyperlipidemia 08/21/19 Jutsus Nelson MD *Labs (Manual) LIPID Mixed hyperlipidemia 08/21/19 Justus Nelson MD *Labs (Manual) ALBUMIN Hypercalcemia 08/21/19 sEha branch MD *Labs (Manual) CMP Hypercalcemia 08/21/19 Esha branch MD *Labs (Manual) CK Mixed hyperlipidemia 05/06/20 Justus Nelson MD *Labs (Manual) LIPID Mixed hyperlipidemia 05/06/20 Justus Nelson MD *Labs (Manual) C REACTIVE PROTEIN Chest pain, unspecified 05/21/20 Esha Nelson MD *Labs (Manual) CBC W/ MANUAL DIFF Chest pain, unspecified 05/21/20 Esha Nelson MD *Labs (Manual) ESR Chest pain, unspecified 05/21/20 Arminda Nelson MD *Labs (Manual) TROPONIN Chest pain, unspecified 05/21/20 Arminda Nelson MD *Labs (Manual) proBNP Chest pain, unspecified 05/21/20 Arminda Nelson MD *Labs (Manual) PROCALCITONIN Chest pain, unspecified 05/21/20 Toi Nelson MD Future Appointments Date Time Location Provider EXTENDED VISIT 05/26/2020 9:30AM Family Medicine Willie ALBERT mulligan MD Findings Encounter Date Ordered follow-up visit STANDARD OV with Esha Nelson MD 05/07/2020 Ordered return to the clinic if condition worsens or n ew symptoms arise STANDARD OV with Esha Nelson MD 05/07/2020 Ordered follow-up visit HOSP I/P F/U with Esha Nelson MD 04/22/2020 Ordered follow-up visit STANDARD OV with Esha Nelson MD 01/24/2019 Ordered follow-up visit STANDARD OV with Esha Nelson MD 10/25/2018 Ordered follow-up visit 2 WKS ANNUAL PHYSICAL EXAM with Stevan Nelson MD 08/14/2018 Assessments Includes: Assessments for all patient encounters Findings Encounter Date Acute infective exacerbation of chronic obstructive ai rways disease STANDARD OV with Esha Nelson MD 05/07/2020 Atypical chest pain STANDARD OV with Esha Nelson MD 04/19 Nicotine dependence uncomplicated STANDARD OV with Esha Nelson MD 05/07/2020 Benign essential hypertension HOSP I/P F/U with Esha branch MD 04/22/2020 Chronic obstructive pulmonary disease HOSP I/P F/U with Jayant Nelson MD 04/22/2020 Fatigue HOSP I/P F/U with Esha Nelson MD 09/2019 Hyperlipidemia HOSP I/P F/U with Esha Nelson MD 09/2019 Lung mass HOSP I/P F/U with Esha Nelosn MD 09/2019 Type 2 diabetes mellitus in obese HOSP I/P F/U with Esha Nelson MD 04/22/2020 Vitreous floaters of right eye HOSP I/P F/U with Esha gilman MD 04/22/2020 Benign prostatic hypertrophy ANNUAL PHYSICAL EXAM with Justus Nelson MD 08/20/2019 Fatigue ANNUAL PHYSICAL EXAM with Esha mulligan MD 08/20/2019 Hyperlipidemia ANNUAL PHYSICAL EXAM with Esha mulligan MD 08/20/2019 Hypogonadism ANNUAL PHYSICAL EXAM with Esha mulligan MD 08/20/2019 Routine senior citizen history and physical (65-80 yrs ) with abnormal findin gs ANNUAL PHYSICAL EXAM with Esha Nelson MD 08/20/2019 Type 2 diabetes mellitus in nonobese ANNUAL PHYSICAL E XAM with Esha Nelson MD 08/20/2019 Cervicalgia STANDARD OV with Esha Nelson MD 07/20 Chronic obstructive pulmonary disease STANDARD OV with Justus Nelson MD 08/07/2019 Hypercalcemia STANDARD OV with Esha Nelson MD 07/20 Left olecranon bursitis STANDARD OV with Esha Nelson MD 08/07/2019 Psoriasis STANDARD OV with Esha Nelson MD 07/20 Secondary diabetes mellitus with peripheral neuropathy STANDARD OV with Esha Nelson MD 08/07/2019 Chronic obstructive pulmonary disease STANDARD OV with Justus Nelson MD 06/25/2019 Hyperlipidemia STANDARD OV with Esha Nelson MD 12/2019 Hypogonadism STANDARD OV with Esha Nelson MD 12/2019 Obesity STANDARD OV with Esha Nelson MD 12/2019 Type 2 diabetes mellitus 2 HRS PP 1 WK AGO [address] OV with Esha Nelson MD 06/25/2019 Type 2 diabetes mellitus with coma STANDARD OV with Esha Nelson MD 06/25/2019 Cervicalgia ON OFF. H/O SURGERY STANDARD OV with Esha Nelson MD 01/24/2019 Chronic obstructive pulmonary disease PROAIR USED QD TO BID , RELIEVES SX STANDARD OV with Esha Nelson MD 01/24/2019 Dermatitis USES STEROID W/ RELIEF ON OFF STANDARD OV with Toi Nelson MD 01/24/2019 Hyperlipidemia STANDARD OV with Esha Nelson MD 01/2019 Right carpal tunnel syndrome STANDARD OV with Esha mulligan MD 01/24/2019 Type 2 diabetes mellitus in nonobese STANDARD OV with Brittany Nelson MD 01/24/2019 Alcohol disorders STANDARD OV with Esha Nelson MD 02/2019 Chronic obstructive pulmonary disease STANDARD OV with Justus Nelson MD 10/25/2018 Hyperlipidemia STANDARD OV with Esha Nelson MD 02/2019 Nicotine related disorders STANDARD OV with Esha Nelson MD 10/25/2018 Type 2 diabetes mellitus STANDARD OV with Esha Nelson MD 10/25/2018 Chronic obstructive pulmonary disease EXTENDED VISIT with Yasmin Mera MD 09/18/2018 Chronic obstructive pulmonary disease BETTER ON SYMBI DOT STANDARD OV with Esha Nelson MD 08/29/2018 Dermatitis STANDARD OV with Esha Nelson MD 08/17 Overweight STANDARD OV with Esha Nelson MD 08/17 Right carpal tunnel syndrome STANDARD OV with Esha mulligan MD 08/29/2018 Chronic obstructive pulmonary disease ANNUAL PHYSICAL EXAM with Esha Nelson MD 08/14/2018 Eczema ANNUAL PHYSICAL EXAM with Esha mulligan MD 08/14/2018 Pruritus ANNUAL PHYSICAL EXAM with Esha mulligan MD 08/14/2018 Routine adult history and physical (18-64 yrs) with ab normal findings ANNUAL PHYSICAL EXAM with Esha Nelson MD 08/14/2018 Type 2 diabetes mellitus in obese ANNUAL PHYSICAL EXAM with Esha Nelson MD 08/14/2018 Visual impairment in the right eye ANNUAL PHYSICAL EXAM with Esha Nelson MD 08/14/2018 Alcohol disorders NEW PATIENT EVALUATION with Esha branch MD 07/12/2018 Benign essential hypertension NEW PATIENT EVALUATION with Arminda Nelson MD 07/12/2018 Chronic obstructive pulmonary disease NEW PATIENT EVAL UATION with Esha Nelson MD 07/12/2018 Hyperlipidemia NEW PATIENT EVALUATION with Esha branch MD 07/12/2018 Impaired fasting glucose NEW PATIENT EVALUATION with Esha Nelson MD 07/12/2018 Overweight NEW PATIENT EVALUATION with Esha branch MD 07/12/2018 Type 2 diabetes mellitus in nonobese NEW PATIENT EVALU ATION with Esha Nelson MD 07/12/2018 Instructions Instructions not supported for this document typeNo Instructions Recorded Medical Equipment - Implanted Devices Includes: Current and historical DevicesNo Medical Equipment Recorded Medications Includes: Current and historical Medications Current Medications (continue as prescribed) predniSONE 10 MG Oral Tablet 05/07/2020 - 05/19/2020 Provide r: Esha Nelson MD Diagnosis: HCC-Chronic obstruct marjorie pulmon disease w acute lower resp in 60 MG QD X 2 DAYS 40 MG QD X 2 DAYS 30 M G QD X 2 DAYS 20 MG QD X 2 DAYS 10 MG QD X 2 DAYS 5 MG QD X 2 DAYS Doxycycline Hyclate 100 MG Oral Capsule 05/06/2020 Provider: Esha Nelson MD Diagnosis: Cough 1 tab twice a day po Lisinopril 5 MG Oral Tablet 04/22/2020 - 05/22/2020 Provider : Esha Nelson MD Diagnosis: Essential (primary) hypertension 1 Every bedtime metFORMIN HCl 500 MG Oral Tablet 04/22/2020 - 05/22/2020 Pro vider: Esha Nelson MD Diagnosis: HCC-Type 2 diabetes mellitus without complications 1 tab twice a day FROM QD Atorvastatin Calcium 20 MG Oral Tablet 04/22/2020 - 05/22/20 20 Provider: Esha Nelson MD Diagnosis: Mixed hyperlipidemia 1 every day HAS 34 DAYS LEFT ProAir HFA 108 (90 Base) MCG/ACT Inhalation Aerosol So lution 04/22/2020 - 05/22/2020 Provider: Esha Nelson MD Diagnosis: HCC-Chronic obstruct marjorie pulmonary disease, unspecified 2 puffs,4 times a day as needed Symbicort 160-4.5 MCG/ACT Inhalation Aerosol 04/22/2020 - Provider: Esha Nelson MD Diagnosis: HCC-Chronic obstruct marjorie pulmonary disease, unspecified 2 PUFFS PO BID Aspirin 325MG Oral Tablet 08/14/2018 Provider: Diagnosis: Past Medications on file Lisinopril 5 MG Oral Tablet 11/20/2019 - 04/22/2020 Provider : Esha Nelson MD Diagnosis: Essential (primary) hypertension 1 Every bedtime Symbicort 160-4.5 MCG/ACT Inhalation Aerosol 11/20/2019 - Provider: Esha Nelson MD Diagnosis: HCC-Chronic obstruct marjorie pulmonary disease, unspecified 2 PUFFS PO BID ProAir HFA 108 (90 Base) MCG/ACT Inhalation Aerosol So lution 10/24/2019 - 04/22/2020 Provider: Esha Nelson MD Diagnosis: HCC-Chronic obstruct marjorie pulmonary disease, unspecified 2 puffs,4 times a day as needed Lisinopril 5 MG Oral Tablet 08/20/2019 - 11/20/2019 Provider : Esha Nelson MD Diagnosis: Essential (primary) hypertension 1 Every bedtime ProAir HFA 108 (90 Base) MCG/ACT Inhalation Aerosol So lution 08/20/2019 - 10/24/2019 Provider: Esha Nelson MD Diagnosis: HCC-Chronic obstruct marjorie pulmonary disease, unspecified 2 puffs,4 times a day as needed LAST USED 3 WKS AGO Symbicort 160-4.5 MCG/ACT Inhalation Aerosol 08/20/2019 - Provider: Esha Nelson MD Diagnosis: HCC-Chronic obstruct marjorie pulmonary disease, unspecified 2 PUFFS PO BID STOP BREO PER HIS REQUEST metFORMIN HCl 500 MG Oral Tablet 08/20/2019 - 04/22/2020 Pro vider: Esha Nelson MD Diagnosis: HCC-Type 2 diabetes mellitus without complications 1 tab twice a day FROM QD Atorvastatin Calcium 20 MG Oral Tablet 08/20/2019 - 04/22/20 20 Provider: Esha Nelson MD Diagnosis: Mixed hyperlipidemia 1 every day HAS 34 DAYS LEFT AndroGel 50 MG/5GM (1%) Transdermal 08/20/2019 - 11/18/2019 Provider: Esha Nelson MD Diagnosis: Testicular hypofunct ion APPLY TOPICALLY QAM Triamcinolone Acetonide 0.1% External Lotion 08/20/2019 - Provider: Esha Nelson MD Diagnosis: Dermatitis, unspecif ied APPLY TOPICALLY BID SPARINGLY TO ARMS NO >2 WEEKSUSED MOS AG O. HAS ENOUGH Lancets Ultra Fine Miscellaneous 08/20/2019 - 11/18/2019 Pro vider: Esha Nelson MD Diagnosis: HCC-Type 2 diabetes mellitus without complications to test 3 x weekly random give what insurance will cover IGlucose Test Strips In Vitro 08/20/2019 - 11/18/2019 Provid er: Esha Nelson MD Diagnosis: HCC-Type 2 diabetes mellitus without complications test random 3 x weekly please given what is needed for mete r and insurance Symbicort 160-4.5 MCG/ACT Inhalation Aerosol 06/25/2019 - Provider: Esha Nelson MD Diagnosis: HCC-Chronic obstruct marjorie pulmonary disease, unspecified 2 PUFFS PO BID STOP BREO PER HIS REQUEST Lancets Ultra Fine Miscellaneous 06/25/2019 - 08/20/2019 Pro vider: Esha Nelson MD Diagnosis: HCC-Type 2 diabetes mellitus without complications to test 3 x weekly random give what insurance will cover IGlucose Test Strips In Vitro 06/25/2019 - 08/20/2019 Provid er: Esha Nelson MD Diagnosis: HCC-Type 2 diabetes mellitus without complications test random 3 x weekly please given what is needed for mete r and insurance metFORMIN HCl 500 MG Oral Tablet 06/25/2019 - 08/20/2019 Pro vider: Esha Nelson MD Diagnosis: HCC-Type 2 diabetes mellitus without complications 1 tab twice a day FROM QD Atorvastatin Calcium 20 MG Oral Tablet 06/25/2019 - 08/20/19 20 Provider: Esha Nelson MD Diagnosis: Mixed hyperlipidemia 1 every day metFORMIN HCl 500 MG Oral Tablet 05/30/2019 - 06/25/2019 Pro vider: Esha Nelson MD Diagnosis: HCC-Type 2 diabetes mellitus without complications 1 tab twice a day FROM QD ProAir HFA 108 (90 Base)MCG/ACT Inhalation Aerosol Joy ution 01/24/2019 - 08/20/2019 Provider: Esha Nelson MD Diagnosis: HCC-Chronic obstruct marjorie pulmonary disease, unspecified 2 puffs,4 times a day as needed IGlucose Test Strips In Vitro 01/24/2019 - 06/25/2019 Provid er: Esha Nelson MD Diagnosis: HCC-Type 2 diabetes mellitus without complications test random 3 x weekly please given what is needed for mete r and insurance Lancets Ultra Fine Miscellaneous 01/24/2019 - 06/25/2019 Pro vider: Esha Nelson MD Diagnosis: HCC-Type 2 diabetes mellitus without complications to test 3 x weekly random give what insurance will cover Triamcinolone Acetonide 0.1% External Lotion 01/24/2019 - Provider: Esha Nelson MD Diagnosis: Dermatitis, unspecif ied APPLY TOPICALLY BID SPARINGLY TO ARMS NO >2 WEEKS metFORMIN HCl 500MG Oral Tablet 01/24/2019 - 05/30/2019 Prov ider: Esha Nelson MD Diagnosis: HCC-Type 2 diabetes mellitus without complications 1 tab twice a day FROM QD Atorvastatin Calcium 20MG Oral Tablet 01/24/2019 - 0 Provider: Esha Nelson MD Diagnosis: Mixed hyperlipidemia 1 every day Breo Ellipta 100-25MCG/INH Inhalation Aerosol Powder B reath Activated 01/24/2019 - 06/25/2019 Provider: Esha Nelson MD Diagnosis: HCC-Chronic obstruct marjorie pulmonary disease, unspecified 1 PUFF PO QD. STOP SYMBICORT ProAir HFA 108 (90 Base)MCG/ACT Inhalation Aerosol Joy ution 12/13/2018 - 01/24/2019 Provider: Esha Nelson MD Diagnosis: HCC-Chronic obstruct marjorie pulmonary disease, unspecified 2 puffs,4 times a day as needed Ramipril 2.5MG Oral Capsule 10/25/2018 - 01/24/2019 Provider : Esha Nelson MD Diagnosis: HCC-Type 2 diabetes mellitus with other specified complicati 1 every day ProAir HFA 108 (90 Base)MCG/ACT Inhalation Aerosol Joy ution 10/25/2018 - 12/13/2018 Provider: Esha Nelson MD Diagnosis: HCC-Chronic obstruct marjorie pulmonary disease, unspecified 2 puffs,4 times a day as needed metFORMIN HCl 500MG Oral Tablet 10/25/2018 - 01/24/2019 Prov ider: Esha Nelson MD Diagnosis: HCC-Type 2 diabetes mellitus without complications 1 every day HAS BEEN ON QD, NOT BID metFORMIN HCl 500MG Oral Tablet 10/25/2018 - 10/25/2018 Prov ider: Esha Nelson MD Diagnosis: HCC-Type 2 diabetes mellitus without complications 1 tab twice a day Atorvastatin Calcium 20MG Oral Tablet 10/25/2018 - 9 Provider: Esha Nelson MD Diagnosis: Mixed hyperlipidemia 1 every day Breo Ellipta 100-25MCG/INH Inhalation Aerosol Powder B reath Activated 10/25/2018 - 01/24/2019 Provider: Esha Nelson MD Diagnosis: HCC-Chronic obstruct marjorie pulmonary disease, unspecified 1 PUFF PO QD. STOP SYMBICORT Zithromax 250MG Oral Tablet 09/18/2018 - 10/25/2018 Provider : Kike Mera MD Diagnosis: HCC-Chronic obstruct marjorie pulmonary disease, unspecified 2 tabs day 1, then 1 tab days 2-5 Breo Ellipta 100-25MCG/INH Inhalation Aerosol Powder B reath Activated 08/29/2018 - 10/25/2018 Provider: Esha Nelson MD Diagnosis: HCC-Chronic obstruct marjorie pulmonary disease, unspecified 1 PUFF PO QD. STOP SYMBICORT metFORMIN HCl 500MG Oral Tablet 08/14/2018 - 10/25/2018 Prov ider: Esha Nelson MD Diagnosis: HCC-Type 2 diabetes mellitus without complications 500mg po two times per day freq. increased Symbicort 160-4.5MCG/ACT Inhalation Aerosol 08/14/2018 - Provider: Esha Nelson MD Diagnosis: HCC-Chronic obstruct marjorie pulmonary disease, unspecified 2 puffs two times a day Atorvastatin Calcium 20MG Oral Tablet 08/14/2018 - 9 Provider: Esha Nelson MD Diagnosis: Mixed hyperlipidemia 1 every day Lancets Ultra Fine Miscellaneous 08/14/2018 - 01/24/2019 Pro vider: Esha Nelson MD Diagnosis: HCC-Type 2 diabetes mellitus without complications to test 3 x weekly random give what insurance will cover Triamcinolone Acetonide 0.1% External Lotion 08/14/2018 - Provider: Esha Nelson MD Diagnosis: Dermatitis, unspecif ied APPLY TOPICALLY BID SPARINGLY TO ARMS NO >2 WEEKS Blood Glucose Monitor System w/Device Kit 08/14/2018 - 01/24 Provider: Esha Nelson MD Diagnosis: HCC-Type 2 diabetes mellitus without complications Take as directed give what insurance will cover iGlucose Test Strips In Vitro 08/14/2018 - 01/24/2019 Provid er: Esha Nelson MD Diagnosis: HCC-Type 2 diabetes mellitus without complications test random 3 x weekly please given what is needed for mete r and insurance MetFORMIN HCl 500MG Oral Tablet 07/18/2018 - 08/14/2018 Prov ider: Esha Nelson MD Diagnosis: HCC-Type 2 diabetes mellitus without complications 500mg po every day Januvia 50MG Oral Tablet 07/12/2018 - 07/18/2018 Provider: Esha Nelson MD Diagnosis: HCC-Type 2 diabetes mellitus without complications 1 Every morning Symbicort 160-4.5MCG/ACT Inhalation Aerosol 07/12/2018 - Provider: Esha Nelson MD Diagnosis: HCC-Chronic obstruct marjorie pulmonary disease, unspecified 2 puffs two times a day Atorvastatin Calcium 20MG Oral Tablet 07/12/2018 - 9 Provider: Diagnosis: Symbicort 80-4.5MCG/ACT Inhalation Aerosol 07/12/2018 - 06/20 Provider: Diagnosis: Medications Administered Includes: Administered Medications in patient's chartNo Administered Medications Recorded Vital Signs Includes: Vital Signs from 05/07/2019 through 05/07/2020 Vital Name 05/07/2020 08:08A 04/22/2020 10:08A 08/20/2019 08:17A 08/07/2019 01:54P 06/25/2019 11:06A Blood Pressure Sitting R 132/82 134/86 134/78 132/76 124/72 BP Cuff Size Regular Regular Large Regular Regular Pulse Rate-Sitting (bpm) 91 84 90 97 86 Respiration Rate (breaths/min) 24 24 24 24 24 Temp-Temporal 97.6 97.1 97.8 97.8 Height (in) 71 71 71 71 71 Weight (lb) 191 191 199 203 191 Body Mass Index (kg/m2) 26.6 26.6 27.8 28.3 2 6.6 Body Surface Area (m2) 2.07 2.07 2.10 2.12 2. 07 Oxygen Saturation (%) 95 94 97 97 98 Flow Rate (l/min) (None (Room Air)) (None (Room Air)) ( None (Room Air)) (None (Room Air)) FiO2 (%) 21 21 21 21 Temp-Oral (F) 97.8 Note: O2 with mask 84% with our mask went to 95% Results Includes: Results from 05/07/2019 through 05/07/2020 CPK [facility] Ordered by Esha Nelson MD on 04/30/[address] [place] [address], [id number] Collected: 04/30/2020 Reported: 04/30/2020 09:27 tel :[phone] CPK 59 U/L (30 - 170) None Note: Responsible Observer: (TAD) Reviewed by Esha Nelson MD on 2019; All test results are final unless otherwise noted. Reported Physicians [facility] Ordered by Esha Nelson MD on 04/30/[address] [place] [address], [id number] Collected: 04/30/2020 Reported: 04/30/2020 09:27 tel :[phone] Reported Physicians See Note None Note: Reported Physicians:Ordering: Esha De La Garza AAttending: VINITA, JOCELYNConsulting: VINITA, JOCELYNCopy To: Esha Nelson Reviewed by Esha Nelson MD on 2019; All test results are final unless otherwise noted. TSH HIGHLY SENSITIVE [facility] Ordered by Esha Nelson MD on 04/30/[address] [place] [address], [id number] Collected: 04/30/2020 Reported: 04/30/2020 09:31 tel :[phone] TSH 2.19 uIU/mL (0.47 - 5.01) None Note: Responsible Observer: (TAD) Reviewed by Esha Nelson MD on 2019; All test results are final unless otherwise noted. Reported Physicians [facility] Ordered by Esha Nelson MD on 04/30/[address] [place] [address], [id number] Collected: 04/30/2020 Reported: 04/30/2020 09:31 tel :[phone] Reported Physicians See Note None Note: Reported Physicians:Ordering: Beard e Esha AAttending: VINITA, JOCELYNConsulting: VINITA, JOCELYNCopy To: Esha Nelson Reviewed by Esha Nelson MD on 2019; All test results are final unless otherwise noted. URIC ACID [facility] Ordered by Esha Nelson MD on 04/30/[address] [place] [address], [id number] Collected: 04/30/2020 Reported: 04/30/2020 09:27 tel :[phone] URIC ACID 5.1 MG/DL (2.5 - 8.5) None Note: Responsible Observer: (TAD) Reviewed by Esha Nelson MD on 2019; All test results are final unless otherwise noted. Reported Physicians [facility] Ordered by Esha Nelson MD on 04/30/[address] [place] [address], [id number] Collected: 04/30/2020 Reported: 04/30/2020 09:27 tel :[phone] Reported Physicians See Note None Note: Reported Physicians:Ordering: Esha De La Garza AAttending: ESHA NELSONConsulting: ESHA NELSONCopninfa To: Esha Nelson Reviewed by Esha Nelson MD on 2019; All test results are final unless otherwise noted. CBC W AUTO DIFF [facility] Ordered by Esha Nelson MD on 04/12/2020 Collected: 04/12/2020 Reported: 04/12/2020 07:[address] [place] [address], [id number] MCV BldCo Auto 91.5 FemtoLiter_[SI_Volume_Units] (80-96) N (Normal) Note: Responsible Observer: MCV MCV 100 .0600 (B) RDW RBC Auto 13 percent (11-15) N (Normal) Note: Responsible Observer: RDW RDW 100 .0900 (B) Manual diff Bld Manual Diff Added None Note: Responsible Observer: CBC Manual D ifferential Added 100.1990 (B) PMV Bld 9.5 FemtoLiter_[SI_Volume_Units] (9.1-13.1) N (Normal) Note: Responsible Observer: MPV MPV 100 .1100 (B) Imm Granulocytes Bld Ql Auto See Note (0-2) N (Normal) Note: [id number] Ob sql server developer: IG% IG% 100.1375 (B) Hct VFr Bld Auto 44.4 percent (42-52) N (Normal) Note: Responsible Observer: HEMATOCRIT H EMATOCRIT 100.0500 (B) MCHC BldCo-mCnc 33.1 GramsPerDeciLiter_[Mass_Concentration_Units] (33-37) N (Normal) Note: Responsible Observer: MCHC MCHC 1 00.0800 (B) Imm Granulocytes # Bld Auto 0.1 Unit (0-0.1) None Note: Responsible Observer: IG# IG# 100 .1400 (B) Monocytes/leuk NFr Bld Auto 1.2 percent (4-12) L (Low) Note: Responsible Observer: MONO % MONO % 100.1225 (B) Hgb Bld-sCnc 14.7 GramsPerDeciLiter_[Mass_Concentration_Units] (13-18) N (Normal) Note: Responsible Observer: HGB HEMOGLOB IN 100.0400 (B) WBC # Bld Auto 14.6 ThousandsPerMicroLiter_[Number_Concentration_Units] (4.45-10 .71) H (High) Note: Responsible Observer: WBC WHITE BL OOD COUNT 100.0100 (E) Basophils # Bld Auto 0.0 Unit (0.0-0.2) N (Normal) Note: Responsible Observer: BASO # BASO# 100.1350 (B) Basophils/leuk NFr Bld Auto 0.1 percent (0.4-1.3) L (Low) Note: Responsible Observer: BASO % BASO % 100.1325 (B) Eosinophil # Bld Auto 0.0 Unit (0.0-0.5) N (Normal) Note: Responsible Observer: EOS # EOS# 100.1300 (D) Eosinophil/leuk NFr Bld Auto 0.0 percent (0-7) N (Normal) Note: Responsible Observer: EOS % EOS % 100.1275 (B) Lymphocytes # Bld Auto 0.6 Unit (0.6-4.6) N (Normal) Note: Responsible Observer: LYMPH # LYMP H# 100.1200 (B) Lymphocytes/leuk NFr Bld Auto 4.2 percent (14-46) L (Low) Note: Responsible Observer: LYMPH % LYMP H % 100.1175 (B) Monocytes # Bld Auto 0.2 Unit (0.2-1.2) N (Normal) Note: Responsible Observer: MONO # MONO# 100.1250 (C) Neutrophils # Bld Auto 13.8 Unit (1.7-7.6) H (High) Note: Responsible Observer: NEUT# NEUT# 100.1150 (B) Neutrophils/leuk NFr Bld Auto 94.0 percent (41-77) H (High) Note: @PERFORM SLIDE SCAN IF NOT AGREE M AN DIFF@DOCUMENT SLIDE SCAN COMMENTResponsible Observer: NEUT% NEUT% 100.1125 (B) Platelet # Bld Auto 235 ThousandsPerMicroLiter_[Number_Concentration_Units] (130-472 ) N (Normal) Note: Responsible Observer: PLATELET COU NT PLATELET COUNT 100.1000 (D) MCH RBC Qn Auto 30.3 PicoGram_[SI_Mass_Units] (27-31) N (Normal) Note: Responsible Observer: MCH MCH 100 .0700 (B) RBC # Bld Auto 4.85 MillionsPerMicroLiter_[Number_Concentration_Units] (4.3-6.1) N (Normal) Note: Responsible Observer: RBC Red Bloo d Count 100.0300 (B) NUCLEATED RED BLOOD CELL# 0 Unit None Note: Responsible Observer: NRBC# NUCLEA SABRINA RBC 100.1362 (A) NUCLEATED RED BLOOD CELL 0 percent None Note: Responsible Observer: NRBC% NRBC% 100.1360 (B) NOTES See Note None Note: @04/12/20 0729: MANUAL DIFF added. RFLXG = DIFF. Reviewed by Esha Nelson MD on 2019; All test results are final unless otherwise noted. [facility] Ordered by Esha Nelson MD on 04/12/2020 Collected: 04/12/2020 Reported: 04/12/2020 07:[address] [place] [address], [place], [address] ALT SerPl w P-5'-P-cCnc 30 enzyme_unit_per_liter (10-49) N (Normal) Note: Responsible Observer: SGPT/ALT SGP T/ALT 400.1750 (G) Calcium SerPl-mCnc 9.2 MilliGramsPerDeciLiter_[Mass_Concentration_Units] (8.5-10.1) N (Normal) Note: Responsible Observer: Calcium Calc ium 400.2500 (G) Bilirub SerPl-mCnc 0.5 MilliGramsPerDeciLiter_[Mass_Concentration_Units] (0.3-1.2) N (Normal) Note: Responsible Observer: T ABDIRAHMAN Total Bilirubin 400.2600 (G) CO2 SerPl-sCnc 25 MilliMolesPerLiter_[Substance_Concentration_Units] (20-31) N (Normal) Note: Responsible Observer: CO2 Carbon D ioxide 400.1400 (G) Chloride SerPl-sCnc 105 MilliMolesPerLiter_[Substance_Concentration_Units] (99-109) N (Normal) Note: Responsible Observer: Chloride Chl oride 400.1250 (G) Glucose SerPl-mCnc 212 MilliGramsPerDeciLiter_[Mass_Concentration_Units] (74-106) H (High) Note: Responsible Observer: Glucose Gluc ose 400.1500 (G) Potassium SerPl-sCnc 4.6 MilliMolesPerLiter_[Substance_Concentration_Units] (3.5-5.5) N (Normal) Note: Responsible Observer: K Potassium 400.1210 (G) Prot SerPl-mCnc 7.1 GramsPerDeciLiter_[Mass_Concentration_Units] (5.7-8.2) N (Normal) Note: Responsible Observer: TP Total Pro tein 400.2800 (G) Sodium SerPl-sCnc 138 MilliMolesPerLiter_[Substance_Concentration_Units] (132-146) N (Normal) Note: Responsible Observer: Sodium Sodiu m 400.1100 (G) AST SerPl w P-5'-P-cCnc 11 enzyme_unit_per_liter (0-33) N (Normal) Note: Responsible Observer: SGOT / AST S GOT / AST 400.1900 (G) BUN SerPl-mCnc 19 MilliGramsPerDeciLiter_[Mass_Concentration_Units] (9-23) N (Normal) Note: Responsible Observer: BUN Blood Ur ea Nitrogen 400.1000 (G) Anion Gap SerPl-sCnc 13 MilliMolesPerLiter_[Substance_Concentration_Units] (8-16) N (Normal) Note: Responsible Observer: ANION GAP AN ION GAP 400.1402 (E) Albumin SerPl BCP-mCnc 3.4 GramsPerDeciLiter_[Mass_Concentration_Units] (3.2-4.8) N (Normal) Note: Responsible Observer: Albumin Albu min 400.2700 (G) ALP SerPl-cCnc 58 enzyme_unit_per_liter (45-129) N (Normal) Note: Responsible Observer: ALP Alkaline Phosphatase 400.2000 (G) GFR/BSA.pred SerPlBld-ArVRat Greater Than 60 (ABOVE 60) None Note: Responsible Observer: GFR Glomerul ar Filt Rate Calc 400.1605 (D) Creatinine 1.1 MilliGramsPerDeciLiter_[Mass_Concentration_Units] (0.5-1.1) N (Normal) Note: Responsible Observer: Creatinine C reatinine 400.1600 (G) Reviewed by Esha Nelson MD on 2019; All test results are final unless otherwise noted. Reported Physicians [facility] Ordered by Esha Nelson MD on 04/12/2020 Collected: 04/12/2020 Reported: 04/12/2020 07:[address] [place] [address], [address] Reported Physicians See Note None Note: Reported Physicians:Ordering: Pradeep Ferraraending: John Danielsitting: Pete Daniels To: Pete Daniels To: Esha Nelson Reviewed by Esha Nelson MD on 2019; All test results are final unless otherwise noted. MANUAL DIFF [facility] Ordered by Esha Nelson MD on 04/12/2020 Collected: 04/12/2020 Reported: 04/12/2020 07:[address] [place] [address], [address] MANUAL DIFF See Note None Note: NOTES OTHER/NOT INTERPRETED Cells counted 100 Lymphocytes # Bld Manual 3 %Morphology Bld-Imp APPEARS NORMAL Neutrophils # Bld Manual 97 %Platelet # Bld Est APPEARS NORMAL @Are you sure? Please be sure this value is correct YES@04/12/20 0729: MANUAL DIFF added. RFLXG = DIFF.Responsible Observer: TOTAL CELLS TOTAL CELLS COUNTED 100.2105 (A) Reviewed by Esha Nelson MD on 2019; All test results are final unless otherwise noted. [facility] Ordered by Esha Nelson MD on 04/12/2020 Collected: 04/12/2020 Reported: 04/12/2020 07:53 [address] [place], [address] Troponin I SerPl-mCnc Less Than 0.015 (0.00-0.09) N (Normal) Note: Less than 0.09 NG/ML Negative 0.10 - 0.77 NG/ML High Risk0.78 NG/ML or Greater PositiveThe WHO defined the cutoff (definition for diagnosis of MD)for this method as 0.78 ng/ml.Responsible Observer: Troponin I Troponin I 600.1101 (G) Reviewed by Esha Nelson MD on 2019; All test results are final unless otherwise noted. [facility] Or[facility] by Esha [facility] MD on 04/12/2020 Collected: 04/12/2020 Reported: 04/12/2020 07:53 [address] [place], [address] Reported Physicians See Note None Note: Reported Physicians:Ordering: Pradeep Ferraraending: John Danielsitting: Ancelmo DanielsamCopninfa To: Shruthi DanielskramCopninfa To: Esha Nelson Reviewed by Esha Nelson MD on 2019; All test results are final unless otherwise noted. [facility] Or[facility] by Esha Nelson MD on 04/11/2020 Collected: 04/11/2020 Reported: 04/12/2020 00:34 [address] [place], [address] Troponin I SerPl-mCnc Less Than 0.015 (0.00-0.09) N (Normal) Note: Less than 0.09 NG/ML Negative 0.10 - 0.77 NG/ML High Risk0.78 NG/ML or Greater PositiveThe WHO defined the cutoff (definition for diagnosis of MD)for this method as 0.78 ng/ml.Responsible Observer: Troponin I Troponin I 600.1101 (G) NOTES See Note None Note: @ RYAN DATE was changed from 04/12 to 04/11/20@ by SHEEBA. Old specimen was [id number]. Reviewed by Esha Nelson MD on 2019; All test results are final unless otherwise noted. Reported Physicians [facility] Ordered by Esha Nelson MD on 04/11/2020 Collected: 04/11/2020 Reported: 04/12/2020 00:34 [address] [place], [address] Reported Physicians See Note None Note: Reported Physicians:Ordering: Pradeep Ferraraending: John Danielsitting: Pete Daniels To: Pete Daniels To: Esha Nelson Reviewed by Esha Nelson MD on 2019; All test results are final unless otherwise noted. 4hr repeat Lactic (no rfx) [facility] Ordered by Esha Nelson MD on 04/11/2020 Collected: 04/11/2020 Reported: 04/11/2020 22:42 [address] [place], [address] Lactate SerPl-mCnc 1.7 MilliMolesPerLiter_[Substance_Concentration_Units] (0.5-2.2) N (Normal) Note: A HIGH RESULT ON THIS 4HR LACTIC A PIPO WILL NOT REFLEXANOTHER - YOU MUST ORDER ONE IF YOU WANT IT REPEATEDResponsible Observer: 4HR LACTIC RPT 4HR LACTIC ACID 400.2840 (G) NOTES See Note None Note: @04/11/20 1840: 4hr Lactic Acid ad ded. RFLXG = RFX LACTIC. Reviewed by Esha Nelson MD on 2019; All test results are final unless otherwise noted. Reported Physicians [facility] Ordered by Esha Nelson MD on 04/11/2020 Collected: 04/11/2020 Reported: 04/11/2020 22:42 [address] [place], [address] Reported Physicians See Note None Note: Reported Physicians:Ordering: Kian ArguelloAttending: Shruthi DanielskrAzuldmitting: Honorio DanielsCopninfa To: Esha Nelson Reviewed by Esha Nelson MD on 2019; All test results are final unless otherwise noted. TOBAR COVID-19 [facility] Ordered by Esha Nelson MD on 04/11/2020 Collected: 04/11/2020 Reported: 04/11/2020 22:05 [address] [place], [address] TOABR COVID-19 SCHOOL See Note None Note: TOBAR COVID-19 IS AN ISOTHER MAL KRISTEN TECHNOLOGYNORMAL VALUE IS "SARS-COV-2 COVID 19 NOT DETECTED"False negative results may occur if a specimen is improperlycollected,transported or handled.False negative results may also occur if amplicationinhibitors are present in the specimen or if inadequatelevels of viruses are present in the specimen.As with any molecular test, if the virus mutates in [facility], Covid-19 may not be detected or may bedetected less predictably.ID NOW COVID-19 is intended for testing a swab directlywithout elution in viral transport media as dilution willresult in decreased detection of low positive samples thatare near the limit of detection of the test.SWAB SAMPLES ELUTED IN VTM ARE NOT APPROPRIATE FOR USE INTHIS TEST.NOSNo Organisms [id number] Organisms Detected Reviewed by Esha Nelson MD on 2019; All test results are final unless otherwise noted. Reported Physicians [facility] Ordered by Esha Nelson MD on 04/11/2020 Collected: 04/11/2020 Reported: 04/11/2020 22:05 [address] [place], [address] Reported Physicians See Note None Note: Reported Physicians:Ordering: Kian ArguelloAttending: Leia Danielsdmitting: Honorio DanielsCopninfa To: Esha Nelson Reviewed by Esha Nelson MD on 2019; All test results are final unless otherwise noted. UA W/ CULTURE IF ABNORMAL [facility] Ordered by Esha Nelson MD on 04/11/2020 Collected: 04/11/2020 Reported: 04/11/2020 20:08 [address] [place], [address] Urobilinogen Ur Ql See Note (0.2-1 EU/dl) None Note: 0.2 EU/dl0.2 EU/[id number] E U/dlResponsible Observer: UROBILINOGEN UROBILINOGEN 300.4500 (C) RBC # Ur Strip NEGATIVE (NEGATIVE) None Note: Responsible Observer: BLOOD BLOOD 300.4652 (C) Prot Ur Ql Strip See Note (NEGATIVE) None Note: [id number] EResponsible Observer: PROTEIN PROTEIN 300.3750 (C) Ketones Ur Ql Strip See Note (NEGATIVE) None Note: [id number] EResponsible Observer: KETONE KETONE 300.3900 (C) Bilirub Ur Ql Strip.auto See Note (NEGATIVE) None Note: [id number] EResponsible Observer: BILIRUBIN BILIRUBIN 300.4550 (C) Glucose Ur Strip.auto-mCnc NEGATIVE (NEGATIVE) None Note: Responsible Observer: GLUCOSE GLUC OSE 300.3850 (C) Appearance Ur See Note (CLEAR) None Note: CLEARCLEARLCLEARResponsible Observ er: APPEARANCE APPEARANCE 300.3400 (A) Color Ur See Note None Note: YELLOWYELLOWLYELLOWResponsible Obs erver: COLOR COLOR 300.3330 (A) Leukocyte esterase Ur Ql Strip See Note (NEGATIVE) None Note: [id number] EResponsible Observer: LEUKOCYTES LEUKOCYTES 300.3576 (C) Nitrite Ur Ql Strip See Note (NEGATIVE) None Note: [id number] EResponsible Observer: NITRITE NITRITE 300.3652 (B) pH Ur Strip 5.0 (5-8) None Note: Responsible Observer: PH PH 300.3 450 (C) Sp Gr Ur Refractometry 1.010 (1.005-1.030) None Note: Responsible Observer: SP GRAVITY U RINE SPECIFIC GRAVITY-MAN 300.3475 (C) URINE MICROSCOPIC? (CIF) NO None Note: Responsible Observer: UA URINE KEENAN ROSCOPIC PENDING 300.4665 (D) NOTES See Note None Note: Reason for ordering culture: Abnor mal findings UAMethod of Collection:: Voided Reviewed by Esha Nelson MD on 2019; All test results are final unless otherwise noted. Reported Physicians [facility] Ordered by Esha Nelson MD on 04/11/2020 Collected: 04/11/2020 Reported: 04/11/2020 20:[address] [place] [address], [address] Reported Physicians See Note None Note: Reported Physicians:Ordering: Kian ArguelloAttending: KassandraKian zapataCopy To: Esha Nelsno Reviewed by Esha Nelson MD on 2019; All test results are final unless otherwise noted. [facility] Ordered by Esha Nelson MD on 04/11/2020 Collected: 04/11/2020 Reported: 04/11/2020 18:[address] [place] [address], [address] Troponin I SerPl-mCnc Less Than 0.015 (0.00-0.09) N (Normal) Note: Less than 0.09 NG/ML Negative 0.10 - 0.77 NG/ML High Risk0.78 NG/ML or Greater PositiveThe WHO defined the cutoff (definition for diagnosis of MD)for this method as 0.78 ng/ml.Responsible Observer: Troponin I Troponin I 600.1101 (G) Reviewed by Esha Nelson MD on 2019; All test results are final unless otherwise noted. Rep[facility] Phys[facility] Ordered by Esha Nelson MD on 04/11/2020 Collected: 04/11/2020 Reported: 04/11/2020 18:[address] [place] [address], [address] Reported Physicians See Note None Note: Reported Physicians:Ordering: Kian ArguelloAttending: Kian CannonCopninfa To: Esha Nelson Reviewed by Esha Nelson MD on 2019; All test results are final unless otherwise noted. CBC W AUTO DIFF [facility] Ordered by Esha Nelson MD on 04/11/2020 Collected: 04/11/2020 Reported: 04/11/2020 18:[address] [place] [address], [address] MCV BldCo Auto 91.8 FemtoLiter_[SI_Volume_Units] (80-96) N (Normal) Note: Responsible Observer: MCV MCV 100 .0600 (B) RDW RBC Auto 12 percent (11-15) N (Normal) Note: Responsible Observer: RDW RDW 100 .0900 (B) Manual diff Bld NO None Note: Responsible Observer: CBC Manual D ifferential Added 100.1990 (B) PMV Bld 9.3 FemtoLiter_[SI_Volume_Units] (9.1-13.1) N (Normal) Note: Responsible Observer: MPV MPV 100 .1100 (B) Imm Granulocytes Bld Ql Auto See Note (0-2) N (Normal) Note: [id number] Ob sql server developer: IG% IG% 100.1375 (B) Hct VFr Bld Auto 46.2 percent (42-52) N (Normal) Note: Responsible Observer: HEMATOCRIT H EMATOCRIT 100.0500 (B) MCHC BldCo-mCnc 33.5 GramsPerDeciLiter_[Mass_Concentration_Units] (33-37) N (Normal) Note: Responsible Observer: MCHC MCHC 1 00.0800 (B) Imm Granulocytes # Bld Auto 0.0 Unit (0-0.1) None Note: Responsible Observer: IG# IG# 100 .1400 (B) Monocytes/leuk NFr Bld Auto 8.4 percent (4-12) N (Normal) Note: Responsible Observer: MONO % MONO % 100.1225 (B) Hgb Bld-sCnc 15.5 GramsPerDeciLiter_[Mass_Concentration_Units] (13-18) N (Normal) Note: Responsible Observer: HGB HEMOGLOB IN 100.0400 (B) WBC # Bld Auto 10.4 ThousandsPerMicroLiter_[Number_Concentration_Units] (4.45-10 .71) N (Normal) Note: Responsible Observer: WBC WHITE BL OOD COUNT 100.0100 (E) Basophils # Bld Auto 0.1 Unit (0.0-0.2) N (Normal) Note: Responsible Observer: BASO # BASO# 100.1350 (B) Basophils/leuk NFr Bld Auto 0.5 percent (0.4-1.3) N (Normal) Note: Responsible Observer: BASO % BASO % 100.1325 (B) Eosinophil # Bld Auto 0.1 Unit (0.0-0.5) N (Normal) Note: Responsible Observer: EOS # EOS# 100.1300 (D) Eosinophil/leuk NFr Bld Auto 1.2 percent (0-7) N (Normal) Note: Responsible Observer: EOS % EOS % 100.1275 (B) Lymphocytes # Bld Auto 2.2 Unit (0.6-4.6) N (Normal) Note: Responsible Observer: LYMPH # LYMP H# 100.1200 (B) Lymphocytes/leuk NFr Bld Auto 20.9 percent (14-46) N (Normal) Note: Responsible Observer: LYMPH % LYMP H % 100.1175 (B) Monocytes # Bld Auto 0.9 Unit (0.2-1.2) N (Normal) Note: Responsible Observer: MONO # MONO# 100.1250 (C) Neutrophils # Bld Auto 7.2 Unit (1.7-7.6) N (Normal) Note: Responsible Observer: NEUT# NEUT# 100.1150 (B) Neutrophils/leuk NFr Bld Auto 68.7 percent (41-77) N (Normal) Note: Responsible Observer: NEUT% NEUT% 100.1125 (B) Platelet # Bld Auto 243 ThousandsPerMicroLiter_[Number_Concentration_Units] (130-472 ) N (Normal) Note: Responsible Observer: PLATELET COU NT PLATELET COUNT 100.1000 (D) MCH RBC Qn Auto 30.8 PicoGram_[SI_Mass_Units] (27-31) N (Normal) Note: Responsible Observer: MCH MCH 100 .0700 (B) RBC # Bld Auto 5.03 MillionsPerMicroLiter_[Number_Concentration_Units] (4.3-6.1) N (Normal) Note: Responsible Observer: RBC Red Bloo d Count 100.0300 (B) NUCLEATED RED BLOOD CELL# 0 Unit None Note: Responsible Observer: NRBC# NUCLEA SABRINA RBC 100.1362 (A) NUCLEATED RED BLOOD CELL 0 percent None Note: Responsible Observer: NRBC% NRBC% 100.1360 (B) Reviewed by Esha Nelson MD on 2019; All test results are final unless otherwise noted. [facility] Ordered by Esha Nelson MD on 04/11/2020 Collected: 04/11/2020 Reported: 04/11/2020 18:[address] [place] [address], [address] ALT SerPl w P-5'-P-cCnc 33 enzyme_unit_per_liter (10-49) N (Normal) Note: Responsible Observer: SGPT/ALT SGP T/ALT 400.1750 (G) Calcium SerPl-mCnc 9.4 MilliGramsPerDeciLiter_[Mass_Concentration_Units] (8.5-10.1) N (Normal) Note: Responsible Observer: Calcium Calc ium 400.2500 (G) Bilirub SerPl-mCnc 0.8 MilliGramsPerDeciLiter_[Mass_Concentration_Units] (0.3-1.2) N (Normal) Note: Responsible Observer: T ABDIRAHMAN Total Bilirubin 400.2600 (G) CO2 SerPl-sCnc 26 MilliMolesPerLiter_[Substance_Concentration_Units] (20-31) N (Normal) Note: Responsible Observer: CO2 Carbon D ioxide 400.1400 (G) Chloride SerPl-sCnc 103 MilliMolesPerLiter_[Substance_Concentration_Units] (99-109) N (Normal) Note: Responsible Observer: Chloride Chl oride 400.1250 (G) Glucose SerPl-mCnc 150 MilliGramsPerDeciLiter_[Mass_Concentration_Units] (74-106) H (High) Note: Responsible Observer: Glucose Gluc ose 400.1500 (G) Potassium SerPl-sCnc 3.9 MilliMolesPerLiter_[Substance_Concentration_Units] (3.5-5.5) N (Normal) Note: Responsible Observer: K Potassium 400.1210 (G) Prot SerPl-mCnc 8.0 GramsPerDeciLiter_[Mass_Concentration_Units] (5.7-8.2) N (Normal) Note: Responsible Observer: TP Total Pro tein 400.2800 (G) Sodium SerPl-sCnc 138 MilliMolesPerLiter_[Substance_Concentration_Units] (132-146) N (Normal) Note: Responsible Observer: Sodium Sodiu m 400.1100 (G) AST SerPl w P-5'-P-cCnc 15 enzyme_unit_per_liter (0-33) N (Normal) Note: Responsible Observer: SGOT / AST S GOT / AST 400.1900 (G) BUN SerPl-mCnc 17 MilliGramsPerDeciLiter_[Mass_Concentration_Units] (9-23) N (Normal) Note: Responsible Observer: BUN Blood Ur ea Nitrogen 400.1000 (G) Anion Gap SerPl-sCnc 13 MilliMolesPerLiter_[Substance_Concentration_Units] (8-16) N (Normal) Note: Responsible Observer: ANION GAP AN ION GAP 400.1402 (E) Albumin SerPl BCP-mCnc 3.8 GramsPerDeciLiter_[Mass_Concentration_Units] (3.2-4.8) N (Normal) Note: Responsible Observer: Albumin Albu min 400.2700 (G) ALP SerPl-cCnc 60 enzyme_unit_per_liter (45-129) N (Normal) Note: Responsible Observer: ALP Alkaline Phosphatase 400.2000 (G) GFR/BSA.pred SerPlBld-ArVRat Greater Than 60 (ABOVE 60) None Note: Responsible Observer: GFR Glomerul ar Filt Rate Calc 400.1605 (D) Creatinine 1.0 MilliGramsPerDeciLiter_[Mass_Concentration_Units] (0.5-1.1) N (Normal) Note: Responsible Observer: Creatinine C reatinine 400.1600 (G) Reviewed by Esha Nelson MD on 2019; All test results are final unless otherwise noted. Reported Physicians [facility] Ordered by Esha Nelson MD on 04/11/2020 Collected: 04/11/2020 Reported: 04/11/2020 18:[address] [place] [address], [address] Reported Physicians See Note None Note: Reported Physicians:Ordering: Kian ArguelloAttending: Talita Cannon To: Esha Nelson Reviewed by Esha Nelson MD on 2019; All test results are final unless otherwise noted. SED RATE [facility] Ordered by Esha Nelson MD on 04/11/2020 Collected: 04/11/2020 Reported: 04/11/2020 23:[address] [place] [address], [address] ESR Bld Qn Westrgrn 13 (0-20) N (Normal) Note: @Reenter manual test result: 13@by Tori Child at 04/11/20 2328.Responsible Observer: SED RATE SED RATE 100.6400 (B) NOTES See Note None Note: Special Instructions: from the las t lab sample, otherwise, from the next Reviewed by Esha Nelson MD on 2019; All test results are final unless otherwise noted. Reported Physicians [facility] Ordered by Esha Nelson MD on 04/11/2020 Collected: 04/11/2020 Reported: 04/11/2020 23:[address] [place] [address], [address] Reported Physicians See Note None Note: Reported Physicians:Ordering: Pradeep Ferraraending: John Danielsitting: Pete Daniels To: Ancelmo DanielsamVlad To: Esha Nelson Reviewed by Esha Nelson MD on 2019; All test results are final unless otherwise noted. % CKMB Prof (CPK,CKMB & %Calc) [facility] Ordered by Esha Nelson MD on 04/11/2020 Collected: 04/11/2020 Reported: 04/11/2020 18:[address] [place] [address], [address] Chemistry studies 2.4 percent None Note: Responsible Observer: CK RELATIVE % CK RELATIVE % 600.0055 (A) CK SerPl-cCnc 158 enzyme_unit_per_liter (33-211) N (Normal) Note: Responsible Observer: CK Creatine Kinase 400.9115 (G) CK MB SerPl-cCnc 3.8 NanoGramsPerMilliLiter_[Mass_Concentration_Units] (0.0-5.0) N (Normal) Note: Responsible Observer: CKMB Creatin e Kinase MB 600.0050 (G) Reviewed by Esha Nelson MD on 2019; All test results are final unless otherwise noted. [facility] Ordered by Esha Nelson MD on 04/11/2020 Collected: 04/11/2020 Reported: 04/11/2020 18:[address] [place] [address], [address] Reported Physicians See Note None Note: Reported Physicians:Ordering: Kian ArguelloAttending: Talita Cannon To: Esha Nelson Reviewed by Esha Nelson MD on 2019; All test results are final unless otherwise noted. MAGNESIUM [facility] Ordered by Esha Nelson MD on 04/11/2020 Collected: 04/11/2020 Reported: 04/11/2020 18:24 [address] [place], [address] Magnesium SerPl-mCnc 2.3 MilliGramsPerDeciLiter_[Mass_Concentration_Units] (1.3-2.7) N (Normal) Note: Responsible Observer: Magnesium Ma gnesium 400.3300 (G) Reviewed by Esha Nelson MD on 2019; All test results are final unless otherwise noted. Reported Physicians [facility] Ordered by Esha Nelson MD on 04/11/2020 Collected: 04/11/2020 Reported: 04/11/2020 18:24 [address] [place], [address] Reported Physicians See Note None Note: Reported Physicians:Ordering: Kian ArguelloAttending: Talita Cannon To: Esha Nelson Reviewed by Esha Nelson MD on 2019; All test results are final unless otherwise noted. LAC [facility] Ordered by Esha Nelson MD on 04/11/2020 Collected: 04/11/2020 Reported: 04/11/2020 18:40 [address] [place], [address] Lactic w Rfx (if elevated) 2.1 MilliMolesPerLiter_[Substance_Concentration_Units] (0.5-2.2) N (Normal) Note: Called to RYAN @ 4505 by Tori Kenny. Results readback.Responsible Observer: Lactic Acid Lactic Acid 400.2831 (G) NOTES See Note None Note: Special Instructions: Lab may orde r repeat test if initial test elevatedPhysician If elevated, reflex second test in 4-6 hrs Reviewed by Esha Nelson MD on 2019; All test results are final unless otherwise noted. Blood Culture (Incl Anaerobic)-1 [facility] Ordered by Esha Nelson MD on 04/11/2020 Collected: 04/11/2020 Reported: 04/16/2020 17:57 [address] [place], [address] Bacteria Bld Cult See Note None Note: NG5DNo growth.[id number] GROWTH AFTE R 5 DAYS Reviewed by Esha Nelson MD on 2019; All test results are final unless otherwise noted. Blood Culture (Incl Anaerobic)-2 [facility] Ordered by Esha Nelson MD on 04/11/2020 Collected: 04/11/2020 Reported: 04/16/2020 17:57 [address] [place], [address] Bacteria Bld Cult See Note None Note: NG5DNo growth.[id number] GROWTH AFTE R 5 DAYS Reviewed by Esha Nelson MD on 2019; All test results are final unless otherwise noted. Reported Physicians [facility] Ordered by Esha Nelson MD on 04/11/2020 Collected: 04/11/2020 Reported: 04/16/2020 17:57 [address] [place], [address] Reported Physicians See Note None Note: Reported Physicians:Ordering: Ember Arguelloending: John Danielsitting: Pete Daniels To: Esha Nelson Reviewed by Esha Nelson MD on 2019; All test results are final unless otherwise noted. TESTOSTERONE TOTAL SERUM [facility] Ordered by Esha Nelson MD on 08/12/[address] [place] [address], [address] Collected: 08/12/2019 Reported: 08/13/2019 08:10 tel :[phone] Testosterone, Serum 137 ng/dL (264-916) L (Low) Note: Adult male reference interval is b ased on a population ofhealthy nonobese males (BMI <30) between 19 and 41 years old.rhea Rosen.al. JCEM 2017,102;1161- 1173. PMID: [id number].Responsible Observer: (rfl) Reviewed on 08/21/2019; All test result s are final unless otherwise noted. Reported Physicians [facility] Ordered by Esha Nelson MD on 08/12/[address] [place] [address], [id number] Collected: 08/12/2019 Reported: 08/13/2019 08:10 tel :[phone] Reported Physicians See Note None Note: Reported Physicians:Ordering: Esha De La Garza AAttending: ESHA NELSONConsulting: Alex NELSON To: Esha Nelson Reviewed on 08/21/2019; All test result s are final unless otherwise noted. CVE PANEL [facility] Ordered by Esha Nelson MD on 08/12/[address] [place] [address], [id number] Collected: 08/12/2019 Reported: 08/12/2019 13:01 tel :[phone] CHOLESTEROL 177 MG/DL (131 - 200) None Note: Responsible Observer: (BLD) CVE PANEL See Note None Note: LIPID PANELResponsible Observe r: (BLD) HDL 48 MG/DL (29 - 86) None Note: Responsible Observer: (BLD) LDL 91 mg/dL (65 - 175) None Note: Responsible Observer: (BLD) LDL/HDL 1.90 (1.00 - 3.55) None Note: CVE RISK CHOL/HD L LDL/HDLMEN: 1/2 AVERAGE 3.43 1.00 AVERAGE 4.97 3.55 2X AVERAGE 9.55 6.25 3X AVERAGE 23.99 7.99WOMEN: 1/2 AVERAGE 3.27 1.47 AVERAGE 4.44 3.22 2X AVERAGE 7.05 5.03 3X AVERAGE 11.04 6.14Responsible Observer: (BLD) RISK FACTOR 3.7 (3.4 - 4.9) None Note: Responsible Observer: (BLD) TRIGLYCERIDES 272 MG/DL (35 - 160) H (High) Note: Responsible Observer: (BLD) Reviewed by Esha Nelson MD on 2019; All test results are final unless otherwise noted. Reported Physicians [facility] Ordered by Esha Nelson MD on 08/12/[address] [place] [address], [address] Collected: 08/12/2019 Reported: 08/12/2019 13:01 tel :[phone] Reported Physicians See Note None Note: Reported Physicians:Ordering: Esha De La Garza AAttending: ESHA NELSONConsulting: JUSTUS NELSONYNCopy To: Esha Nelson Reviewed by Esha Nelson MD on 2019; All test results are final unless otherwise noted. PSA - DIAGNOSTIC [facility] Ordered by Esha Nelson MD on 08/12/[address] [place] [address], [address] Collected: 08/12/2019 Reported: 08/12/2019 12:41 tel :[phone] PSA 0.95 ng/mL (0.00 - 4.00) None Note: BLDoPSA INTERP RETATIONBLDx The PSA assay should not be used alone for a screening test or diagnosis for presence or absence of malignant disease. Predictions of disease recurrence should not be based solely on values obtained from serial patient serum values. The PSA result was determined by "[employer]", on the [employer] SINA 6000. Values obtained with different assay methods or kits cannot be used interchangeably.Responsible Observer: () Reviewed by Esha Nelson MD on 2019; All test results are final unless otherwise noted. Reported Physicians [facility] Ordered by Esha Nelson MD on 08/12/[address] [place] [address], [address] Collected: 08/12/2019 Reported: 08/12/2019 12:41 tel :[phone] Reported Physicians See Note None Note: Reported Physicians:Ordering: Esha De La Garza AAttending: ESHA NELSONConsulting: Alex NELSON To: Esha Nelson Reviewed by Esha Nelson MD on 2019; All test results are final unless otherwise noted. CPK [facility] Ordered by Esha Nelson MD on 08/12/[address] [place] [address], [address] Collected: 08/12/2019 Reported: 08/12/2019 12:03 tel :[phone] CPK 102 U/L (30 - 170) None Note: Responsible Observer: () Reviewed by Esha Nelson MD on 2019; All test results are final unless otherwise noted. Reported Physicians [facility] Ordered by Esha Nelson MD on 08/12/[address] [place] [address], [address] Collected: 08/12/2019 Reported: 08/12/2019 12:03 tel : Reported Physicians See Note None Note: Reported Physicians:Ordering: Esha De La Garza AAttending: ESHA NELSONConsulting: ESHA NELSONCopninfa To: Esha Nelson Reviewed by Esha Nelson MD on 2019; All test results are final unless otherwise noted. COMPREHENSIVE METABOLIC PANEL [facility] Ordered by Esha Nelson MD on 08/12/[address] [place] [address], [address] Collected: 08/12/2019 Reported: 08/12/2019 12:10 tel : A/G RATIO 1.7 (0.8 - 2.0) None Note: Responsible Observer: SUSAN) AFR AMER GFR >60 mL/min None Note: Male GFR Interprentation 20- 49 yrs >60 mL/min Normal 50-59 yrs >56 mL/min Normal 60-69 yrs >49 mL/min Normal 70-79yrs >42 mL/min Normal 80 and above >35 mL/min Normal Female GFR Interpretation 20-39 yrs >60 mL/min Normal 40-49 yrs >58 mL/min Normal 50-59 yrs >51 mL/min Normal 60-69 yrs >45 mL/min Normal 70-79 yrs >39 mL/min Normal 80 and above >32 mL/min NormalResponsible Observer: SUSAN) AGE 64 yrs None Note: Responsible Observer: SUSAN) ALBUMIN 4.3 G/DL (3.9 - 5.0) None Note: Responsible Observer: () ALKALINE PHOS 48 U/L (38 - 126) None Note: Responsible Observer: SUSAN) ANION GAP 12.0 mmol/L (8.0 - 16.0) None Note: Responsible Observer: SUSAN) BUN 15 MG/DL (7 - 21) None Note: Responsible Observer: SUSAN) BUN/CREAT 19 (8 - 27) None Note: Responsible Observer: SUSAN) CALCIUM 9.5 MG/DL (8.4 - 10.2) None Note: Responsible Observer: SUSAN) CHLORIDE 103 mEq/L (98 - 107) None Note: Responsible Observer: () CO2 24 MEQ/L (22 - 30) None Note: Responsible Observer: () COMPREHENSIVE METABOLIC PANEL See Note None Note: COMPREHENSIVE METABOLIC PANELR esponsible Observer: () CREATININE 0.8 MG/DL (0.7 - 1.5) None Note: Responsible Observer: () GLOBULIN 2.5 GM/DL (2.4 - 3.2) None Note: Responsible Observer: () GLUCOSE 184 MG/DL (65 - 110) H (High) Note: Responsible Observer: () NON-AA GFR >60 mL/min None Note: Responsible Observer: () POTASSIUM 4.7 mEq/L (3.6 - 5.0) None Note: Responsible Observer: () SGOT/AST 21 U/L (5 - 40) None Note: Responsible Observer: () SGPT/ALT 30 U/L (7 - 56) None Note: Responsible Observer: SUSAN) SODIUM 139 mEq/L (134 - 153) None Note: Responsible Observer: () TOTAL BILI <0.7 MG/DL (0.2 - 1.3) None Note: Responsible Observer: () TOTAL PROTEIN 6.8 G/DL (6.3 - 8.2) None Note: Responsible Observer: SUSAN) Reviewed by Esha Nelson MD on 2019; All test results are final unless otherwise noted. Reported Physicians [facility] Ordered by Esha Nelson MD on 08/12/[address] [place] [address], [address] Collected: 08/12/2019 Reported: 08/12/2019 12:11 tel : Reported Physicians See Note None Note: Reported Physicians:Ordering: Esha De La Garza AAttending: ESHA NELSONConsulting: Alex NELSON To: Esha Nelson Reviewed by Esha Nelson MD on 2019; All test results are final unless otherwise noted. MICROALBUMIN URINE [facility] Ordered by Esha Nelson MD on 08/12/[address] [place] [address], [address] Collected: 08/12/2019 Reported: 08/12/2019 12:10 tel : CREAT UR 137.6 MG/DL (0.0 - 30.0) H (High) Note: Responsible Observer: (BLD) MA/CREAT RATIO 2.76 MCG/MG (0.01 - 30.00) None Note: The [place] [employer] ion states that Microalbuminemia is present if the Microalbumin/Creatinine ratio exceeds 30 mcg/mg. The threshold for Clinical Albuminuria is reached at 300 mcg/mg. The classification of a patient should be based upon at least 2 or 3 abnormal results on specimens collected within a 3 to 6 month timeframe.Responsible Observer: (BLD) MICROALBUMIN <12.00 MG/L (0.00 - 0.00) H (High) Note: Responsible Observer: (BLD) Reviewed by Esha Nelson MD on 2019; All test results are final unless otherwise noted. Reported Physicians [facility] Ordered by Esha Nelson MD on 08/12/[address] [place] [address], [id number] Collected: 08/12/2019 Reported: 08/12/2019 12:10 tel : Reported Physicians See Note None Note: Reported Physicians:Ordering: Esha De La Garza AAttending: ESHA NELSONConsulting: ESHA NELSONCopninfa To: Esha Nelson Reviewed by Esha Nelsno MD on 2019; All test results are final unless otherwise noted. URINALYSIS [facility] Ordered by Esha Nelson MD on 07/07/[address] [place] [address], [address] Collected: 07/07/2019 Reported: 07/07/2019 15:53 tel : BILIRUBIN NEG (NORMAL: Negative) None Note: Responsible Observer: SUSAN) BLOOD NEG (NORMAL: Negative) None Note: Responsible Observer: SUSAN) CLARITY clear (NORMAL: Clear) None Note: Responsible Observer: SUSAN) COLOR yellow (NORMAL: Yellow) None Note: Responsible Observer: SUSAN) GLUCOSE NORM (NORMAL: Negative) None Note: Responsible Observer: SUSAN) KETONE NEG (NORMAL: Negative) None Note: Responsible Observer: () LEUK EST NEG (NORMAL: Negative) None Note: Responsible Observer: SUSAN) MICROSCOPIC Not Indicate None Note: Responsible Observer: SSUAN) NITRITE NEG (NORMAL: Negative) None Note: Responsible Observer: SUSAN) pH 5 (5 - 9) None Note: Responsible Observer: SUSAN) PROTEIN NEG (NORMAL: Negative) None Note: Responsible Observer: SUSAN) SPEC GRAVITY 1.030 (1.001 - 1.030) None Note: Responsible Observer: SUSAN) UROBILINOGEN NOR (less than 1.0 mg/dL) None Note: Responsible Observer: SUSAN) SOURCE R None Note: Responsible Observer: SUSAN) URINALYSIS See Note None Note: URINALYSISResponsible Observer : SUSAN) Reviewed by Esha Nelson MD on 2019; All test results are final unless otherwise noted. Reported Physicians [facility] Ordered by Esha Nelson MD on 07/07/[address] [place] [address], [address] Collected: 07/07/2019 Reported: 07/07/2019 15:54 tel : Reported Physicians See Note None Note: Reported Physicians:Ordering: Sandy UMANAending: Liyah PANIAGUAulting: Alex NELSON To: Azeb Young To: Trina PANIAGUA To: Esha Nelson Reviewed by Esha Nelson MD on 2019; All test results are final unless otherwise noted. CULTURE WOUND [facility] Ordered by Esha Nelson MD on 07/07/[address] [place] [address], [address] Collected: 07/07/2019 Reported: 07/12/2019 14:08 tel :[phone] CULTURE WOUND See Note None Note: .WOUND CULTURE_{ SPECIM EN SOURCE : Result: TEST PERFORMED AT [address] [address] CLIA# [id number] SEE SCANNED REPORT Responsible Observer: (DEBRA) Reviewed by Esha Nelson MD on 2019; All test results are final unless otherwise noted. Reported Physicians [facility] Ordered by Esha Nelson MD on 07/07/[address] [place] [address], [id number] Collected: 07/07/2019 Reported: 07/12/2019 14:08 tel :[phone] Reported Physicians See Note None Note: Reported Physicians:Ordering: Sandy UMANAending: Liyah PANIAGUAulting: Alex NELSON To: Azeb Young To: Trina PANIAGUA To: Esha Nelson Reviewed by Esha Nelson MD on 2019; All test results are final unless otherwise noted. GRAM STAIN [facility] Ordered by Esha Nelson MD on 07/07/[address] [place] [address], [address] Collected: 07/07/2019 Reported: 07/09/2019 13:14 tel :[phone] GRAM STAIN See Note None Note: GRAM STAIN: TEST PERFORMED AT [address] [id number] CLIA# [id number] SEE SCANNED REPORT COMMENT: Respo nsible Observer: () Reviewed by Esha Nelson MD on 2019; All test results are final unless otherwise noted. Reported Physicians [facility] Ordered by Esha Nelson MD on 07/07/[address] [place] [address], [address] Collected: 07/07/2019 Reported: 07/09/2019 13:14 tel :[phone] Reported Physicians See Note None Note: Reported Physicians:Ordering: Sandy UMANAending: Liyah PANIAGUAulting: Alex NELSON To: Azeb Young To: Trina PANIAGUA To: Esha Nelson Reviewed by Esha Nelson MD on 2019; All test results are final unless otherwise noted. CULTURE BLOOD [facility] Ordered by Esha Nelson MD on 07/07/[address] [place] [address], [address] Collected: 07/07/2019 Reported: 07/14/2019 03:41 tel :[phone] CULTURE BLOOD See Note None Note: _CULTURE BLOOD_ TEST P ERFORMED AT [address] [address] CLIA# [id number] SEE SCANNED REPORT{ PRELIMResponsible Observer: (GBT) Reviewed by Esha Nelson MD on 2019; All test results are final unless otherwise noted. Reported Physicians [facility] Ordered by Esha Nelson MD on 07/07/[address] [place] [address], [address] Collected: 07/07/2019 Reported: 07/14/2019 03:41 tel :[phone] Reported Physicians See Note None Note: Reported Physicians:Ordering: CHRISTIANE UMANADEAttending: VENERUS, BRYANConsulting: ESHA NELSONCopninfa To: Faustino YoungCopy To: VENERUS, BRYANCopy To: Esha Nelson Reviewed by Esha Nelson MD on 2019; All test results are final unless otherwise noted. CULTURE BLOOD [facility] Ordered by Esha Nelson MD on 07/07/[address] [place] [address], [facility] Collected: 07/07/2019 Reported: 07/14/2019 03:40 tel :[phone] CULTURE BLOOD See Note None Note: _CULTURE BLOOD_ TEST P ERFORMED AT [address] [address] CLIA# [id number] SEE SCANNED REPORT{ PRELIMResponsible Observer: (GBT) Reviewed by Esha Nelson MD on 2019; All test results are final unless otherwise noted. Reported Physicians [facility] Ordered by Esha Nelson MD on 07/07/[address] [place] [address], [address] Collected: 07/07/2019 Reported: 07/14/2019 03:41 tel :[phone] Reported Physicians See Note None Note: Reported Physicians:Ordering: CHRISTIANE UMANADEAttending: VENERUS, BRYANConsulting: ESHA NELSONCopninfa To: Faustino YoungCopninfa To: VENERUS, BRYANCopy To: Esha Nelson Reviewed by Esha Nelson MD on 2019; All test results are final unless otherwise noted. CRP (HIGH SENSITIVITY) [facility] Ordered by Esha Nelson MD on 07/07/[address] [place] [address], [address] Collected: 07/07/2019 Reported: 07/07/2019 14:40 tel :[phone] CRP-HS 1.00 MG/L (1.00 - 3.00) None Note: CDC/S HS-CRP CUT-OFF : RELATIVE RISK: <1.0 mg/L Low 1.0 - 3.0 mg/L Average >3.0 mg/L High Optimally, the average of HS-CRP results repeated two weeks apart should be used for risk assessment.Responsible Observer: () Reviewed by Esha Nelson MD on 2019; All test results are final unless otherwise noted. Reported Physicians [facility] Ordered by Esha Nelson MD on 07/07/[address] [place] [address], [address] Collected: 07/07/2019 Reported: 07/07/2019 14:40 tel : Reported Physicians See Note None Note: Reported Physicians:Ordering: Sandy UMANAending: Liyah PANIAGUAulting: ESHA NELSONCopninfa To: Azeb Young To: RACHEL PANIAGUAopy To: Esha Nelson Reviewed by Esha Nelson MD on 2019; All test results are final unless otherwise noted. COMPREHENSIVE METABOLIC PANEL [facility] Ordered by Esha Nelson MD on 07/07/[address] [place] [address], [address] Collected: 07/07/2019 Reported: 07/07/2019 14:42 tel : A/G RATIO 1.8 (0.8 - 2.0) None Note: Responsible Observer: () AFR AMER GFR >60 mL/min None Note: Male GFR Interprentation 20- 49 yrs >60 mL/min Normal 50-59 yrs >56 mL/min Normal 60-69 yrs >49 mL/min Normal 70-79yrs >42 mL/min Normal 80 and above >35 mL/min Normal Female GFR Interpretation 20-39 yrs >60 mL/min Normal 40-49 yrs >58 mL/min Normal 50-59 yrs >51 mL/min Normal 60-69 yrs >45 mL/min Normal 70-79 yrs >39 mL/min Normal 80 and above >32 mL/min NormalResponsible Observer: () AGE 63 yrs None Note: Responsible Observer: (MD) ALBUMIN 4.8 G/DL (3.9 - 5.0) None Note: Responsible Observer: (MD) ALKALINE PHOS 55 U/L (38 - 126) None Note: Responsible Observer: (MD) ANION GAP 15.0 mmol/L (8.0 - 16.0) None Note: Responsible Observer: (MD) BUN 15 MG/DL (7 - 21) None Note: Responsible Observer: (MD) BUN/CREAT 19 (8 - 27) None Note: Responsible Observer: (MD) CALCIUM 10.6 MG/DL (8.4 - 10.2) H (High) Note: Responsible Observer: (MD) CHLORIDE 102 mEq/L (98 - 107) None Note: Responsible Observer: (MD) CO2 24 MEQ/L (22 - 30) None Note: Responsible Observer: () COMPREHENSIVE METABOLIC PANEL See Note None Note: COMPREHENSIVE METABOLIC PANELR esponsible Observer: () CREATININE 0.8 MG/DL (0.7 - 1.5) None Note: Responsible Observer: () GLOBULIN 2.7 GM/DL (2.4 - 3.2) None Note: Responsible Observer: (MD) GLUCOSE 120 MG/DL (65 - 110) H (High) Note: Responsible Observer: () NON-AA GFR >60 mL/min None Note: Responsible Observer: () POTASSIUM 4.3 mEq/L (3.6 - 5.0) None Note: Responsible Observer: () SGOT/AST 26 U/L (5 - 40) None Note: Responsible Observer: () SGPT/ALT 45 U/L (7 - 56) None Note: Responsible Observer: () SODIUM 141 mEq/L (134 - 153) None Note: Responsible Observer: () TOTAL BILI 0.7 MG/DL (0.2 - 1.3) None Note: Responsible Observer: () TOTAL PROTEIN 7.5 G/DL (6.3 - 8.2) None Note: Responsible Observer: SUSAN) Reviewed by Esha Nelson MD on 2019; All test results are final unless otherwise noted. Reported Physicians [facility] Ordered by Esha Nelson MD on 07/07/[address] [place] [address], [address] Collected: 07/07/2019 Reported: 07/07/2019 14:42 tel :[phone] Reported Physicians See Note None Note: Reported Physicians:Ordering: CHRISTIANE UMANADEAttending: MACARIOS, BRYANConsulting: ESHA NELSONCopninfa To: Christiane YoungdeCopy To: VENERUS, BRYANCopy To: Esha Nelson Reviewed by Esha Nelson MD on 2019; All test results are final unless otherwise noted. TROPONIN T [facility] Ordered by Esha Nelson MD on 07/07/[address] [place] [address], [id number] Collected: 07/07/2019 Reported: 07/07/2019 14:40 tel :[phone] TROPONIN T 0.01 NG/ML (0.00 - 0.10) None Note: TROPONIN T0.1 ng/ml Recommended as the clinical threshold value forTroponin T.Responsible Observer: () Reviewed by Esha Nelson MD on 2019; All test results are final unless otherwise noted. Reported Physicians [facility] Ordered by Esha Nelson MD on 07/07/[address] [place] [address], [address] Collected: 07/07/2019 Reported: 07/07/2019 14:40 tel :[phone] Reported Physicians See Note None Note: Reported Physicians:Ordering: CHRISTIANE UMANADEAttending: VENEHANKS, BRYANConsulting: Alex NELSON To: Faustino YoungCopninfa To: SRAVANTHIRUS, BRYANCopy To: Esha Nelson Reviewed by Esha Nelson MD on 2019; All test results are final unless otherwise noted. CBC W/AUTOMATED DIFF [facility] Ordered by Esha Nelson MD on 07/07/[address] [place] [address], [address] Collected: 07/07/2019 Reported: 07/07/2019 14:41 tel :[phone] #BASO 0.04 10\\^3/uL (0.00 - 0.20) None Note: Responsible Observer: (MD) #EOS 0.18 10\\^3/uL (0.00 - 0.70) None Note: Responsible Observer: (MD) #IG 0.04 10\\^3/uL (0.00 - 0.10) None Note: Responsible Observer: (MD) #LYMPH 2.04 10\\^3/uL (0.60 - 3.40) None Note: Responsible Observer: (MD) #MONO 0.87 10\\^3/uL (0.00 - 0.90) None Note: Responsible Observer: (MD) #NEUT 8.34 10\\^3/uL (2.00 - 6.90) H (High) Note: Responsible Observer: (MD) #NRBC 0.00 10\\^3/uL (0.00 - 0.00) None Note: Responsible Observer: (MD) %IG 0.3 % (0.0 - 0.0) H (High) Note: Responsible Observer: (MD) %NRBC 0.0 % (0.0 - 0.0) None Note: Responsible Observer: (MD) BASO 0.3 % (0.0 - 2.0) None Note: Responsible Observer: (MD) CBC W/AUTOMATED DIFF See Note None Note: COMPLETE BLOOD COUNTResponsibl e Observer: (MD) EOS 1.6 % (0.0 - 7.0) None Note: Responsible Observer: (MD) HEMATOCRIT 47.4 % (41.0 - 51.0) None Note: Responsible Observer: (MD) HEMOGLOBIN 15.9 g/dL (14.0 - 16.0) None Note: Responsible Observer: (MD) LYMPH 17.7 % (25.0 - 40.0) L (Low) Note: Responsible Observer: (MD) MANUAL DIFF NOT INDICATED None Note: Responsible Observer: (MD) MCH 30.4 pg (27.0 - 34.0) None Note: Responsible Observer: (MD) MCHC 33.5 g/dL (31.0 - 36.0) None Note: Responsible Observer: (MD) MCV 90.6 fL (80.0 - 94.0) None Note: Responsible Observer: (MD) MONO 7.6 % (3.0 - 8.0) None Note: Responsible Observer: (MD) MPV 9.2 fL (7.4 - 10.4) None Note: Responsible Observer: () NEUT 72.5 % (37.0 - 80.0) None Note: Responsible Observer: () PLATELETS 217 10\\^3/uL (150 - 450) None Note: Responsible Observer: () RBC 5.23 10\\^6/uL (4.50 - 6.30) None Note: Responsible Observer: () RBC MORPH NOT INDICATED None Note: Responsible Observer: () RDW 12.8 % (11.5 - 14.8) None Note: Responsible Observer: () WBC 11.5 10\\^3/uL (4.2 - 11.0) H (High) Note: Responsible Observer: SUSAN) Reviewed by Esha Nelson MD on 2019; All test results are final unless otherwise noted. Reported Physicians [facility] Ordered by Esha Nelson MD on 07/07/[address] [place] [address], [id number] Collected: 07/07/2019 Reported: 07/07/2019 14:42 tel :[phone] Reported Physicians See Note None Note: Reported Physicians:Ordering: Sandy UMANAending: Liyah PANIAGUAulting: Alex NELSON To: Azeb Young To: Trina PANIAGUA To: Esha Nelson Reviewed by Esha Nelson MD on 2019; All test results are final unless otherwise noted. PT/PTT [facility] Ordered by Esha Nelson MD on 07/07/[address] [place] [address], [id number] Collected: 07/07/2019 Reported: 07/07/2019 14:40 tel : INR 0.92 (0.93 - 1.23) L (Low) Note: Responsible Observer: () PROTIME 12.5 SECONDS (11.0 - 15.5) None Note: Responsible Observer: () PTT 27.1 SECONDS (24.8 - 36.7) None Note: \\BLD o\\INR INTERPRETATION\\BLDx Therapeutic range for Coumadin and related oral anticoagulants. - International Normalized Ratio (INR): 2.0 - 3.0 for Venous Thrombosis, Pulmonary Embolus, Tissue heart valves, Acute MD Atrial Fibrillation, Valvular heart disease and recurrent Systemic Embolism. - International Normalized Ratio (INR): 2.5 - 3.5 for Mechanical Prosthetic valve. \\BLDo\\PTT INTERPRETATION\\BLDx Critical results for patients not on therapy: >50 seconds Critical results for patients on therapy: >119 seconds Therapeutic range for patients on therapy: 58 - 90 seconds Coag studies from line draws may not be accurate due to Heparin and other interferences.Responsible Observer: () Reviewed by Esha Nelson MD on 2019; All test results are final unless otherwise noted. Reported Physicians [facility] Ordered by Esha Nelson MD on 07/07/[address] [place] [address], [facility] Collected: 07/07/2019 Reported: 07/07/2019 14:40 tel : Reported Physicians See Note None Note: Reported Physicians:Ordering: Sandy UMANAending: Liyah PANIAGUAulting: Alex NELSON To: Azeb Young To: Trina PANIAGUA To: Esha Nelson Reviewed by Esha Nelson MD on 2019; All test results are final unless otherwise noted. LACTIC ACID (LACTATE) [facility] Ordered by Esha Nelson MD on 07/07/[address] [place] [address], [facility] Collected: 07/07/2019 Reported: 07/07/2019 14:39 tel :[phone] LACTIC ACID 3.0 MMOL/L (0.2 - 2.2) H (High) Note: Responsible Observer: () Reviewed by Esha Nelson MD on 2019; All test results are final unless otherwise noted. Reported Physicians [facility] Ordered by Esha Nelson MD on 07/07/[address] [place] [address], [id number] Collected: 07/07/2019 Reported: 07/07/2019 14:39 tel : Reported Physicians See Note None Note: Reported Physicians:Ordering: CHRISTIANE UMANADEAttending: VENERUS, BRYANConsulting: Alex NELSON To: Azeb Young To: RACHEL PANIAGUAopy To: Esha Nelson Reviewed by Esha Nelson MD on 2019; All test results are final unless otherwise noted. SEDIMENTATION RATE [facility] Ordered by Esha Nelson MD on 07/07/[address] [place] [address], [id number] Collected: 07/07/2019 Reported: 07/07/2019 16:00 tel :[phone] SED RATE 1 mm/hr (0 - 20) None Note: Responsible Observer: () SED RATE REENTER 1 None Note: Responsible Observer: () Reviewed by Esha Nelson MD on 2019; All test results are final unless otherwise noted. Reported Physicians [facility] Ordered by Esha Nelson MD on 07/07/[address] [place] [address], [address] Collected: 07/07/2019 Reported: 07/07/2019 16:00 tel :[phone] Reported Physicians See Note None Note: Reported Physicians:Ordering: FAUSTINO UMANAAttending: RACHEL PANIAGUAonsulting: Alex NELSON To: Azeb Young To: RACHEL PANIAGUAopy To: Esha Nelson Reviewed by Esha Nelson MD on 2019; All test results are final unless otherwise noted. GLUCOSE (POSTPRANDIAL) [facility] Ordered by Esha Nelson MD on [address] [place] [address], [id number] Collected: 06/25/2019 Reported: 06/25/2019 11:24 tel :[phone] Glucose 116 N (Normal) Reviewed by Esha Nelson MD on 2019; All test results are final unless otherwise noted. HbA1C [facility] Ordered by Esha Nelson MD on [address] [place] [address], [id number] Collected: 06/25/2019 Reported: 06/25/2019 11:24 tel :[phone] HbA1C 6.5 (<6.0) A (Abnormal) Reviewed by Esha Nelson MD on 2019; All test results are final unless otherwise noted. History of Present Illness History of Present Illness not supported for this document typeNo History of Present Illness Recorded Social History Description Last Updated Alcohol use 18 PACK BEER/WEEK 05/07/2020 No caffeine use 05/07/2020 Not a current smoker QUIT 1 MO AGO <1PACK/WEEK X 6 MO S. 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 NO LIQUOR 08/20/2019 Life circumstance event QUIT JOB ON OWN 01/2019. 65 % DISABLED 08/20/2019 Poor exercise habits SPLITS WOOD X 2 HRS ON OFF 08/2019 Severe visual impairment R EYE ISSUES W /O CHANGE. SUPPOSED TO BE REFERRED TO A "SPECIALIST" IN SEPTEMBER . HARD TO GET HERE TODAY D/T UNPLOWED ROADS 08/20/2019 No hard liquor consumption 01/24/2019 Not using drugs 01/24/2019 Not wishing to stop smoking 01/24/2019 No coffee consumption 10/25/2018 No cola consumption OCCA CHOCOLATE 10/25/2018 No tea consumption 10/25/[address] more than X HRS 08/14/2018 Able to lift more than UP TO 30 # 08/14/2018 Able to sit X HRS 08/14/2018 Able to stand X HRS 08/14/2018 Able to walk UP TO 2 MILES 08/14/2018 Activities of daily living 08/14/2018 No severe breathing difficulty 08/14/2018 No severe cardiovascular impairment 08/14/2018 No severe hearing impairment 08/14/2018 No severe speech impairment 08/14/2018 Physical disability but able to perform usual physical activities for age EXCEPT L SHOULDER LIMITATION 08/14/2018 Self-reliant in usual daily activities ABLE TO DO HOUSEWORK, LAUNDRY, COOK,BALANCES CHECK BOOK. SNOW PLOWS 08/14/2018 Using marijuana ONCE A MONTH 07/12/2018 Smoking Status Unknown Procedures and Surgical History Includes: Procedures from 05/07/2019 through 05/07/2020 Procedures Code Diagnosis Performing Provider Service Location Service Date ELECTROCARDIOGRAM, COMPLETE (EKG) 33652 Chest pain, un specified Esha Nelson MD 05/07/2020 FECAL BLOOD ASSAY TEST (waived laboratory) 59396 Encounter for screening for malignant neoplasm of colon Esha Nelson MD [facility], 08/20/2019 ELECTROCARDIOGRAM, COMPLETE (EKG) 75958 Essential (franchesca hoang) hypertension Esha Nelson MD [facility], 08/20/2019 HbA1c (Glycosolated) (waived laboratory) 83713 HCC-Type 2 diabetes mellitus without complications Esha Nelson MD [facility], 06/25/2019 CAPILLARY BLOOD DRAW 51304 HCC-Type 2 diabetes mellitu s without complications Esha Nelson MD [facility], 06/25/2019 GLUCOSE (waived laboratory) 81206 HCC-Type 2 d iabetes mellitus without complications Esha Nelson MD [facility], 0 Medical History Includes: Medical History in patient's chart Description Last Updated History of essential hypertension 05/07/2020 History of hyperlipidemia 05/07/2020 History of type 2 diabetes mellitus 05/07/2020 No diagnosis of history of coronary artery disease No history of condyloma acuminatum 10/25/2018 No history of HIV infection 10/25/2018 No history of prostatitis 10/25/2018 ATRIAL FIBRILLATION 1ST DX 20 YRS AGO. ELECTRICAL CARDIOVERSION 5X. MOST RECENT 4 YRS AGO. LAST YR HAD ATRIAL FIB W/C SPONT CONVERTED AT HOME ~NEVER BEEN ON COUMADIN ~WAS ON TAMBOCOR X 10 YRS 20 YRS AGO. CARDIO STOPPED IT OVEREXERTION WAS CAUSE ~NEVER HAD A HOLTER ~ECHO 2016 "GOOD" ~HOSP : CS SURGERY 4 YRS FOR DISC . INJURY AFTER PICKED CART AT WORK, SUCCESS ~L SHOULDER SURGERY ROTATOR CUFF REPAIR 4 YRS AGO, NOT SUCCESSFUL. L SHOULDER HIGHER THAN R "EASES THE PAIN ~CATARACT SURG IOL. R EYE 'FOGGY" LAST 2 WEEKS ~ ~ALLERGY SHELL FISH ~ ~ORTHO F/U Q 6 MOS ~USED TO GO TO PAIN CLINIC , LAST SEEN 1 YR AGO INEFFECTIVE 08/14/2018 Blood pressure was checked 07/12/2018 Blood pressure was normal 07/12/2018 Family History Includes: Family History in patient's chart Description Last Updated MA (D) 88 YO BRAIN ANEURYSM RUPTURE. ? T2DM, COPD ~FA (D) 72 YO PROSTATE CA, T2DM , HTN, LIPID ABN ~BRO (2) 66 YO ENA WELL ~61 YO DAT ATRIAL FIB ~SIS LEOBARDO 71 YO COPD ~SIS ISMA 70 YO ATRIAL FIB ~SIS POPEYE 69 YO WELL ~SIS MORIAH 60 YO WELL ~SIS JOSÉ 58 YO PHOTOSENSITIVITY ~DAUGHTER 25 YO MALI WELL 08/20/2019 Review of Systems Review of Systems not supported for this document typeNo Review of Systems Recorded Mental Status Mental Status not supported for this document type Description Oriented to time, place, and person No anxiety Functional Status Functional Status not supported for this document typeNo Functional Status Recorded Physical Exam Physical Exam not supported for this document typeNo Physical Exam Recorded Immunizations Includes: Immunizations in patient's chart Vaccine Dose # Date Site Reaction(s) Status Source Influenza,NOS 1 08/14/2018 Complete (Refus ed - Patient objection) [facility] PCV (Pneumovax 23) ages 2+ 1 08/07/2019 Complete (Refused - Patient objection) [facility] SHINGRIX 1 08/14/2018 Complete (Refused - Patient objection) [facility] Td 1 Complete (Reported) Patient Allergies Includes: Active, inactive, and resolved Allergies Substance Type Reaction Onset Date - Time Resolved Date - Ti me Status Shellfish Allergy Hives 07/12/2018 - 12:00AM Acti ve Encounters Includes: Encounters from 05/07/2019 through 05/07/2020 Encounter Provider Location Date Check-In Time Check-Out Time D iagnosis STANDARD OV Esha Nelson MD [facility] 020 8:07AM 04/22/2020 11:59PM Acute Infective Exacerbation of Chronic Obstructive Airways Disease, Nicotine Dependence Uncomplicated, Atypical Chest Pain HOSP I/P F/U Esha Nelson MD Family [facility] 09/2019 10:05AM 11:03AM Vitreous Floaters Right Eye, Chronic Obstructive Pulmonary Disease, Essential Hypertension Benign, Hyperlipidemia, Diabetes Mellitus Type 2 in Obese, Lung Mass, Fatigue RX UPDATE Esha Nelson MD [facility] 08/201908/20/2019 11:10AM 08/20/2019 11:59PM ANNUAL PHYSICAL EXAM Esha Nelson MD Family [facility] 08/20/2019 8:13AM 9:35AM Fatigue, Hypogonadis m, Hyperlipidemia, Benign Prostatic Hypertrophy, Diabetes Mellitus Type 2 in Nonobese, Routine History & Physical Senior Citizen with Abnormal Findings STANDARD OV Esha Neslon MD [facility], 020 1:54PM 3:09PM Cervicalgia, Chronic Obstructive Pulmona ry Disease, Hypercalcemia, Bursitis Olecranon Left, Psoriasis, Diabetes Mellitus Secondary with Peripheral Neuropathy STANDARD OV Esha Nelson MD [facility], 12/2019 10:55AM 11:58AM Chronic Obstructive Pulmonar y Disease, Hyperlipidemia, Diabetes Mellitus Type 2, Obesity, Diabetes Mellitus Type 2 with Coma, Hypogonadism Prescription Refill (Telephone, [phone] Esha Nelson MD 05/30/2019 02/04/2019 2:09PM 02/04/2019 11:59PM Insurance Includes: Active Insurance Policies Plan Name Member ID Group # Subscriber Relationship Effective Da veronika 1 - [facility] ESSENTIAL PLAN 2 [id number] Jamil Roman on Self Advance Directives Includes: Current Advance DirectivesNo Advance Directives Recorded Health Concerns Includes: Active Health ConcernsNo Active Health Concerns Recorded Goals Includes: Active GoalsNo Active Goals Recorded Interventions Includes: Interventions for active GoalsNo Interventions Recorded Evaluations & Outcomes Includes: Evaluations & Outcomes for active GoalsNo Outcomes Recorded
--- OUTSIDE RECORDS SUMMARY | 2020-07-03 09:12 | CCD | Continuity of Care Document ---
Author Author [facility] Organization [facility] Address [address] [place] [address] Phone Support Name Relationship Address Phone Hospital Lab, [facility] [address] [place] [address] Maura Nelson [facility] [place] [address] Kian Cannon [employer] [address] [place] [address] Honorio Daniels [employer] [address] [place] [address] Allergies, Adverse Reactions, Alerts Allergen Type Severity Reaction Last Updated Verified Status shellfish derived Allergy April 11, 2020 5:47pm Yes Active Medications Medication Status Dose Units Route Directions Qty Days Start Date End Date Instructions Metformin Active 500 MG PO Once Per Day April 11, 2020 9:16pm Atorvastatin Active 20 MG PO Once Per Day April 11, 2020 9:16pm Aspirin Active 81 MG PO Once Per Day April 11, 2020 9:16pm Albuterol Sulfate (Proair Hfa) 90 mcg/ac tuation HFA aerosol inhaler Active 2 PUFFS IH NEEDED April 11, 2020 9:16pm Sbtynupnqoxd-Etwehyng-Nbnaqv (Centrum Silver) Tablet Active 1 TAB PO Once Per Day April 11, 2020 9:16pm Budesonide-Formoterol (Symbicort) 160-4. 5 mcg/actuation HFA aerosol inhaler Active 2 PUFFS IH 2 Times Per Day April 11, 2020 9:16pm Problems No problem information available. Procedures Procedure Date Performed Status CT Head without contrast March 5:34pm completed Xray Chest 2 view PA/LAT March 5:34pm completed CTA Chest non-card W/ & or w/o Octob er 2019 8:44pm completed SARS-CoV-2 (PCR) Interpretation Octo rafael 2019 completed Blood Culture April 11, 2020 active Wound Culture July 07, 2019 completed Gram Stain July 07, 2019 completed Blood Culture July 07, 2019 completed Relevant Diagnostic Tests and/or Laboratory Data Laboratory Results Test Date/Time Result Interpretation Reference Range Result Comment Performing Site White Blood Count April 11, 2020 5:55p m 10.4 10e3/uL 4.45-10.71 [facility], [address] [place] [address] Red Blood Count April 11, 2020 5:55pm 5.03 10e6/uL 4.3-6.1 [facility], [address] [place] [address] 11052 Hemoglobin April 11, 2020 5:55pm 15.5 g/dL 13-18 [facility], [address] [place] [address]268 Hematocrit April 11, 2020 5:55pm 46.2 % 42-52 [facility], [address] [place] [address] 50729 Mean Corpuscular Volume March 5:55pm 91.8 fl 80-96 [facility], [address] [place] [address] 66707 Mean Corpuscular Hemoglobin April 11, 2020 5:55pm 30.8 pg 27-31 [facility], [address] [place] [address] 96465 Mean Corpuscular Hemoglobin Concent April 11, 2020 5:55pm 33.5 g/dl 33-37 [facility], [address] [place] [address] 28040 Red Cell Distribution Width April 11, 2020 5:55pm 12 % 11-15 [facility], [address] [place] [address] 08794 Platelet Count April 11, 2020 5:55pm 243 10e3/ul 130-472 [facility], [address] [place] [address] 55612 Mean Platelet Volume April 11 020 5:55pm 9.3 fl 9.1-13.1 [facility], [address] [place] [address] 96749 Neutrophils (%) (Auto) April 11, 2020 5:55pm 68.7 % 41-77 [facility], [address] [place] [address] 69675 Absolute Neutrophil October 24th, 20 20 5:55pm 7.2 # 1.7-7.6 [facility], [address] [place] [address] 69964 Lymphocytes (%) (Auto) April 11, 2020 5:55pm 20.9 % 14-46 [facility], [address] [place] [address] 43290 Lymphocytes # (Auto) April 11 5:55pm 2.2 # 0.6-4.6 [facility], [address] [place] [address] Monocytes (%) (Auto) April 11 5:55pm 8.4 % 4-12 [facility], [address] [place] [address] 46129 Monocytes # April 11, 2020 5:55pm 0.9 # 0.2-1.2 [facility], [address] [place] [address] 26858 Eosinophils (%) (Auto) April 11, 2020 5:55pm 1.2 % 0-7 [facility], [address] [place] [address] Absolute Eosinophils (CBC) March 202019 5:55pm 0.1 # 0.0-0.5 [facility], [address] [place] [address] 62281 Basophils (%) (Auto) April 11 5:55pm 0.5 % 0.4-1.3 [facility], [address] [place] [address] Absolute Basophils (CBC) March 5:55pm 0.1 # 0.0-0.2 [facility], [address] [place] [address] 14747 Immature Granulocyte % (Auto) Octobe r 2019 5:55pm 0.3 % 0-2 [facility], [address] [place] [address] Absolute Immature Granulocyte (auto April 11, 2020 5:55pm 0.0 # 0-0.1 [facility], [address] [place] [address] 96305 Add Manual Differential March 5:55pm No [facility], [address] [place] [address] Urine Color April 11, 2020 7:59pm Yellow [facility], [address] [place] [address] 62810 Urine Appearance April 11, 2020 7:59pm Clear CLEAR [facility], [address] [place], [place] [id number] Urine pH April 11, 2020 7:59pm 5.0 [facility], [address] [place] [address] 57923 Urine Specific Kunia April 11, 2020 7:59pm 1.010 [facility], [address] [place] [address] 58676 Urine Leukocyte Esterase March 7:59pm Negative NEGATIVE [facility], [address] [place] [address] 88814 Urine Nitrate April 11, 2020 7:59pm Negative NEGATIVE [facility], [address] [place] [address] 33348 Urine Protein April 11, 2020 7:59pm Negative NEGATIVE [facility], [address] [place] [address] 80561 Urine Glucose April 11, 2020 7:59pm Negative NEGATIVE [facility], [address] [place] [address] 97568 Urine Ketones April 11, 2020 7:59pm Negative NEGATIVE [facility], [address] [place] [address] 20617 Urine Urobilinogen April 11 0 7:59pm 0.2 eu/dl [facility], [address] [place] [address] 60662 Urine Bilirubin April 11, 2020 7:59pm Negative NEGATIVE [facility], [address] [place] [address] 56784 Urine Blood April 11, 2020 7:59pm Negative NEGATIVE [facility], [address] [place] [address] 58222 Add Urine Microanalysis March 7:59pm No [facility], [address] [place] [address] 83268 Blood Urea Nitrogen April 11 5:55pm 17 mg/dL 9- [facility], [address] [place] [address] 14059 Sodium Level April 11, 2020 5:55pm 138 mmol/L 132-146 [facility], [address] [place] [address] 50488 Potassium Level April 11, 2020 5:55pm 3.9 mmol/L 3.5-5.5 [facility], [address] [place] [address] 88320 Chloride Level April 11, 2020 5:55pm 103 mmol/l 99-109 [facility], [address] [place] [address] 64392 Carbon Dioxide Level April 11 5:55pm 26 mmol/l 20-31 [facility], [address] [place] [address] 52848 Anion Gap April 11, 2020 5:55pm 13 mmol/l 8-16 [facility], [address] [place] [address] 78363 Glucose Level April 11, 2020 5:55pm 150 mg/dL 74-106 [facility], [address] [place] [address] 22108 Creatinine April 11, 2020 5:55pm 1.0 mg/dL 0.5-1.1 [facility], [address] [place] [address] 38747 Glomerular Filtration Rate Calc Octo rafael 2019 5:55pm Greater than 60 ml/min ABOVE 60 [facility], [address] [place] [address] 87817 Alanine Aminotransferase (ALT/SGPT) April 11, 2020 5:55pm 33 U/L 10-49 [facility], [address] [place] [address] 86951 Aspartate Amino Transf (AST/SGOT) Oc tober 2019 5:55pm 15 U/L 0-33 [facility], [address] [place] [address] 17403 Alkaline Phosphatase April 11 020 5:55pm 60 U/L 45-129 [facility], [address] [place] [address] 18599 Calcium Level April 11, 2020 5:55pm 9.4 mg/dL 8.5-10.1 [facility], [address] [place] [address] 55401 Total Bilirubin April 11, 2020 5:55pm 0.8 mg/dL 0.3-1.2 [facility], [address] [place] [address] 05442 Albumin April 11, 2020 5:55pm 3.8 g/dL 3.2-4.8 [facility], [address] [place] [address] 61197 Serum Total Protein April 11 5:55pm 8.0 g/dL 5.7-8.2 [facility], [address] [place] [address] 04199 Lactic Acid Level April 11, 2020 10:10pm 1.7 mmol/L 0.5-2.2 A HIGH RESULT ON THIS 4HR LACTIC ACID WILL NOT REFLEX ANOTHER - YOU MUST ORDER ONE IF YOU WANT IT REPEATED [facility], [address] [place] [address] 34591 Magnesium Level April 11, 2020 5:55pm 2.3 mg/dL 1.3-2.7 [facility], [address] [place] [address] Creatine Kinase April 11, 2020 5:55pm 158 U/L 33-211 [facility], [address] [place] [address] Creatine Kinase MB April 11 0 5:55pm 3.8 ng/mL 0.0-5.0 [facility], [address] [place] [address] Creatine Kinase MB % April 11 020 5:55pm 2.4 % [facility], [address] [place] [address] Troponin I April 11, 2020 5:55pm Less than 0.015 ng/mL 0.00-0.09 Less than 0.09 NG/ML Negative0.10 - 0.77 NG/ML High Risk0.78 NG/ML or Greater Positive The WHO defined the cutoff (definition for diagnosis of MA)for this method as 0.78 ng/ml. [facility], [address] [place] [address] Cancelled Test July 07, 2019 4:17pm Anaerobic culture [facility], [address] [place] [address] Specimen Rejected July 07, 2019 4:17p m Wrong swab collected One or more of the tests that you ordered cannot be performed. Please recollect, reorder and resubmit. [facility], [address] [place] [address] Microbiology Results Procedure Source Result Collection Date/Time Result Date/Time Result Comment Performing Site Gram Stain Joint fluid July 07, 2019 3:17pm July 09, 2019 7:21am [facility], [address] [place] [address] Wound Culture Skin, Deep wound July 07, 2019 3:17pm July 122019 10:33am [facility], [address] [place] [address] Blood Culture Venous blood No growth. July 07, 2019 2:56pm July [id number] 10:38am [facility], [address] [place] [address] SARS-CoV-2 (PCR) Interpretation Naso pharyngeal No Organisms Detected April 11, 2020 9:30pm April 11, 2020 10:05pm [place] [id number] Health Concerns Health Concerns may be documented in an alternate section. Advance Directives Advance Directive Response Recorded Date/Time Advanced Directive No Oc tober 2019 5:52pm Does Patient have a DNR? Yes April 11, 2020 7:20pm Healthcare Proxy Yes Oct hardik 2019 7:20pm Living Will Yes April 11, 2020 7:20pm Chief Complaint and Reason for Visit Chief Complaint CHEST PAIN,COPD EXAC ERBATION Encounters Encounter Location(s) Ar rival/Admit Date Discharge/Depart Date Provider(s) Registered Referred [facility] July 07, 2019 4:17pm [facility] Admitted Inpatient [facility] April 11, 2020 9:58pm Honorio Daniels MD Assessments No Assessments Information Available Functional Status No Functional Status information available Goals Goals may be documented in an alternate section. Immunizations No Immunization Information Available Mental Status Observation Response Anand e Recorded Impairments No impairments or barriers April 11, 2020 5:32pm Medical Equipment No Medical Equipment Information available Insurance Providers Guarantor [employer] Address [address] [place] [address] Contact Info. Home Phone: Payer Policy Id Coverage Id Subscriber's Name Subscriber Id Effective Date Expiration Date [facility] [id number] [employer] [id number] Self Pay Self N/A Social History Smoking Status Status Date of Observation Current every day smoker March 5:52pm Observation Status Observation Response Anand e of Response Smoking Status Current every day smoker April 11, 2020 5:52pm Assigned Sex Male Vital Signs Vital Reading Result Ref erence Range Collection Date/Time Height 71 [in_i] April 11, 2020 5:52pm Weight 195.00 [lb_av] April 11, 2020 5:52pm Body Temperature 98.4 [degF] 97.6-99.5 April 11, 2020 10:32pm Heart Rate 89 /min 60-100 April 11, 2020 10:32pm Respiratory rate 16 /min 12-24 April 11, 2020 10:32pm Oxygen saturation by Pulse oximetry 96 % 95- 100 April 11, 2020 10:32pm BP Systolic 147 mm[Hg] April 11, 2020 10:32pm BP Diastolic 84 mm[Hg] April 11, 2020 10:32pm
--- OUTSIDE RECORDS SUMMARY | 2020-07-03 09:12 | CCD | Continuity of Care Document ---
Author Author [facility] Organization [facility] Address [address] [place] [address] Phone Support Name Relationship Address Phone Hospital Lab, [facility] [address] [place] [address] Maura Nelson [place] [address] Kian Cannon [facility] [address] [place] [address] Honorio Daniels [facility] [address] [place] [address] Allergies, Adverse Reactions, Alerts Allergen Type Severity Reaction Last Updated Verified Status shellfish derived Allergy April 11, 2020 11:14pm Yes Active Medications Medication Status Dose Units [...] PUFFS IH NEEDED April 11, 2020 9:16pm Kxavolkvoynu-Tgbernyg-Fudvir Active 1 TAB PO Once Per Day April 11, 2020 9 :16pm Budesonide-Formoterol (Symbicort) 160-4. 5 mcg/actuation HFA aerosol inhaler Active 2 PUFFS IH 2 Times Per Day April 11, 2020 9:16pm Azithromycin Active 500 MG PO Once Per Day 2 2 April 12, 2020 10:00am start at 9 pm on 04-12-20 to complete course of antibiotics Prednisone Active 40 MG PO Once Per Day April 12, 2020 10:01am 40 mg once daily, start at 9 am on 04-13 Ipratropium-Albuterol Active 3 ML NEB Q6H 180 April 12, 2020 10:02am Dextromethorphan-Guaifenesin Active 10 ML PO Q4H 237 April 12, 2020 10:03am Problems Active Problems Medical Problem Onset Date Status COPD (chronic obstructive pulmonary disease) Active Procedures Procedure Date Performed Status CT Head [...] Comment Performing Site White Blood Count April 12, 2020 6:40a m 14.6 10e3/uL 4.45-10.71 [facility], [address] [place] [address] 91177 Red Blood Count April 12, 2020 6:40am 4.85 10e6/uL 4.3-6.1 [facility], [address] [place] [address] 54760 Hemoglobin April 12, 2020 6:40am 14.7 g/dL 13-18 [facility], [address] [place] [address] 12821 Hematocrit April 12, 2020 6:40am 44.4 % 42-52 [facility], [address] [place] [address] 55543 Mean Corpuscular Volume March 6:40am 91.5 fl 80-96 [facility], [address] [place] [address] 31573 Mean Corpuscular Hemoglobin April 12, 2020 6:40am 30.3 pg 27-31 [facility], [address] [place] [address] 53543 Mean Corpuscular Hemoglobin Concent April 12, 2020 6:40am 33.1 g/dl 33-37 [facility], [address] [place] [address] 85230 Red Cell Distribution Width April 12, 2020 6:40am 13 % 11-15 [facility], [address] [place] [address] 49335 Platelet Count April 12, 2020 6:40am 235 10e3/ul 130-472 [facility], [address] [place] [address] 75300 Mean Platelet Volume April 12 6:40am 9.5 fl 9.1-13.1 [facility], [address] [place] [address] 41108 Neutrophils (%) (Auto) April 12, 2020 6:40am 94.0 % 41-77 [facility], [address] [place], [place] [phone] Absolute Neutrophil April 12 6:40am 13.8 # 1.7-7.6 [facility], [address] [place] [address] Lymphocytes (%) (Auto) April 12, 2020 6:40am 4.2 % 14-46 [facility], [address] [place] [address] Lymphocytes # (Auto) April 12 6:40am 0.6 # 0.6-4.6 [facility], [address] [place] [address] 75448 Monocytes (%) (Auto) April 12 6:40am 1.2 % 4-12 [facility], [address] [place] [address] 01788 Monocytes # April 12, 2020 6:40am 0.2 # 0.2-1.2 [facility], [address] [place] [address] 20528 Eosinophils (%) (Auto) April 12, 2020 6:40am 0.0 % 0-7 [facility], [address] [place] [address] Absolute Eosinophils (CBC) March 202019 6:40am 0.0 # 0.0-0.5 [facility], [address] [place], [place] [phone] Basophils (%) (Auto) April 12 6:40am 0.1 % 0.4-1.3 [facility], [address] [place] [address] 68035 Absolute Basophils (CBC) March 6:40am 0.0 # 0.0-0.2 [facility], [address] [place] [address] Immature Granulocyte % (Auto) Octobe r 2019 6:40am 0.5 % 0-2 [facility], [address] [place] [address] Absolute Immature Granulocyte (auto April 12, 2020 6:40am 0.1 # 0-0.1 [facility], [address] [place] [address] 47257 Add Manual Differential March 6:40am Manual diff added [facility], [address] [place] [address] 33730 Differential Total Cells Counted Oct hardik2019 6:40am 100 [facility], [address] [place] [address] 99349 Neutrophils (Manual) April 12 6:40am 97 % 41-77 [facility], [address] [place] [address] 83757 Lymphocytes (Manual) April 12 020 6:40am 3 % 14-46 [facility], [address] [place] [address] 79298 Platelet Estimate April 12, 2020 6:40a m Appears normal NORMAL [facility], [address] [place] [address] 98261 RBC Morphology 2 April 12, 2020 6:40am Appears normal NORMAL [facility], [address] [place] [address] 68537 Sedimentation Rate, [place] Octob 2019 5:55pm 13 mm/hr 0-20 [facility], [address] [place] [address] 81636 Urine Color April 11, 2020 7:59pm Yellow [facility], [address] [place] [address] 29749 Urine Appearance April 11, 2020 7:59pm Clear CLEAR [facility], [address] [place] [address] 89671 Urine pH April 11, 2020 7:59pm 5.0 [facility], [address] [place] [address] 36743 Urine Specific [place] April 11, 2020 7:59pm 1.010 [facility], [address] [place] [address] 40922 Urine Leukocyte Esterase March 7:59pm Negative NEGATIVE [facility], [address] [place] [address] 97328 Urine Nitrate April 11, 2020 7:59pm Negative NEGATIVE [facility], [address] [place] [address] 48518 Urine Protein April 11, 2020 7:59pm Negative NEGATIVE [facility], [address] [place] [address] 01231 Urine Glucose April 11, 2020 7:59pm Negative NEGATIVE [facility], [address] [place] [address] 06050 Urine Ketones April 11, 2020 7:59pm Negative NEGATIVE [facility], [address] [place] [address] 07908 Urine Urobilinogen April 11 0 7:59pm 0.2 eu/dl [facility], [address] [place] [address] 13885 Urine Bilirubin April 11, 2020 7:59pm Negative NEGATIVE [facility], [address] [place] [address] 21017 Urine Blood April 11, 2020 7:59pm Negative NEGATIVE [facility], [address] [place] [address] 43862 Add Urine Microanalysis March 7:59pm No [facility], [address] [place] [address] 97873 Blood Urea Nitrogen April 12 6:40am 19 mg/dL 9-23 [facility], [address] [place] [address] 42073 Sodium Level April 12, 2020 6:40am 138 mmol/L 132-146 [facility], [address] [place] [address] 87598 Potassium Level April 12, 2020 6:40am 4.6 mmol/L 3.5-5.5 [facility], [address] [place] [address] 78576 Chloride Level April 12, 2020 6:40am 105 mmol/l 99-109 [facility], [address] [place] [address] 44540 Carbon Dioxide Level April 12 020 6:40am 25 mmol/l 20-31 [facility], [address] [place] [address] 81628 Anion Gap April 12, 2020 6:40am 13 mmol/l 8-16 [facility], [address] [place] [address] 79453 Glucose Level April 12, 2020 6:40am 212 mg/dL 74-106 [facility], [address] [place] [address] 60050 Bedside Glucose April 12, 2020 7:19am 197 70-110 TOBAR PCX (POC GLUCOSE) Creatinine April 12, 2020 6:40am 1.1 mg/dL 0.5-1.1 [facility], [address] [place] [address] 82616 Glomerular Filtration Rate Calc Octo 2019 6:40am Greater than 60 ml/min ABOVE 60 [facility], [address] [place] [address] 07831 Alanine Aminotransferase (ALT/SGPT) April 12, 2020 6:40am 30 U/L 10-49 [facility], [address] [place] [address] 54275 Aspartate Amino Transf (AST/SGOT) Oc tober 2019 6:40am 11 U/L 0-33 [facility], [address] [place] [address] 59094 Alkaline Phosphatase April 12 6:40am 58 U/L 45-129 [facility], [address] [place] [address] 77840 Calcium Level April 12, 2020 6:40am 9.2 mg/dL 8.5-10.1 [facility], [address] [place] [address] 08787 Total Bilirubin April 12, 2020 6:40am 0.5 mg/dL 0.3-1.2 [facility], [address] [place] [address] 74475 Albumin April 12, 2020 6:40am 3.4 g/dL 3.2-4.8 [facility], [address] [place] [address] 40895 Serum Total Protein April 12 6:40am 7.1 g/dL 5.7-8.2 [facility], [address] [place] [address] 73275 Lactic Acid Level April 11, 2020 10:10pm 1.7 mmol/L 0.5-2.2 A HIGH RESULT ON THIS 4HR LACTIC ACID WILL NOT REFLEX ANOTHER - YOU MUST ORDER ONE IF YOU WANT IT REPEATED [facility], [address] [place] [address] 98235 Magnesium Level April 11, 2020 5:55pm 2.3 mg/dL 1.3-2.7 [facility], [address] [place] [address] 05603 Creatine Kinase April 11, 2020 5:55pm 158 U/L 33-211 [facility], [address] [place] [address] 84333 Creatine Kinase MB April 11 0 5:55pm 3.8 ng/mL 0.0-5.0 [facility], [address] [place] [address] 91549 Creatine Kinase MB % April 11 5:55pm 2.4 % [facility], [address] [place] [address] 74464 Troponin I April 12, 2020 6:40am Less than 0.015 ng/mL 0.00-0.09 Less than 0.09 NG/ML Negative0.10 - 0.77 NG/ML High Risk0.78 NG/ML or Greater Positive The WHO defined the cutoff (definition for diagnosis of [place])for this method as 0.78 ng/ml. [facility], [address] [place] [address] 68791 Cancelled Test July 07, 2019 4:17pm Anaerobic culture [facility], [address] [place] [address] 15882 Specimen Rejected July 07, 2019 4:17p m Wrong swab collected One or more of the tests that you ordered cannot be performed. Please recollect, reorder and resubmit. [facility], [address] [place] [address] 72662 Microbiology Results Procedure Source Result Collection Date/Time Result Date/Time Result Comment Performing Site Gram Stain Joint fluid July 07, 2019 3:17pm July 09, 2019 7:21am [facility], [address] [place] [address] 65794 Wound Culture Skin, Deep wound July 07, 2019 3:17pm July 122019 10:33am [facility], [address] [place] [address] 81114 Blood Culture Venous blood No growth. July 07, 2019 2:56pm July 132019 10:38am [facility], [address] [place] [address] 86286 SARS-CoV-2 (PCR) Interpretation Naso pharyngeal No Organisms Detected April 11, 2020 9:30pm April 11, 2020 10:05pm [facility], [address] [place] [address] 66269 Health Concerns Health Concerns may be documented in an alternate section. Advance Directives Advance Directive Response Recorded Date/Time Advanced Directive No Oc tob2019 11:17pm Does Patient have a DNR? No April 11, 2020 11:17pm Healthcare Proxy Yes Oct hardik 2019 11:17pm Health Care Proxy Name Cherelle Reis April 11, 2020 11:17pm Health Care Proxy Phone Number [phone] April 11, 2020 11:17pm Living Will Yes April 11, 2020 7:20pm Chief Complaint and Reason for Visit Chief Complaint CHEST PAIN,COPD EXAC ERBATION Encounters Encounter Location(s) Ar rival/Admit Date Discharge/Depart Date Provider(s) Registered Referred [facility] July 07, 2019 4:17pm [facility] Discharged Inpatient [facility] April 11, 2020 9:58pm April 122019 11:42am Honorio Daniels MD Assessments No Assessments Information Available Functional Status Observation Response Anand e Recorded Functional Status Complete [place] April 11, 2020 11:17pm Goals Goals may be documented in an alternate section. Immunizations No Immunization Information Available Mental Status Observation Response Anand e Recorded Impairments No impairments or barriers April 11, 2020 5:32pm Medical Equipment No Medical Equipment Information available Insurance Providers Guarantor TOLU PINK Address [address], [place] [address] Contact Info. Home Phone: Payer Policy Id Coverage Id Subscriber's Name Subscriber Id Effective Date Expiration Date [facility] [id number] TOLU PINK [id number] Self Pay Self N/A Plan of Treatment Future Tests Future scheduled test information is unavailable Pending Tests Pending diagnostic test information is unavailable Future Visits Future appointment information is unavailable Referrals to Other Providers Reason for Referral Referral Start Date Provider Provider Conta ct Information Provider Address We will call you on Monday with a follow up appointment. Arelis Nelson Work Phone: [facility] [place] [phone] Future Procedures Future procedure information is unavailable Future Medications Future medication information is unavailable Patient Instructions Chest Pain (DC) COPD (Chronic Obstructive Pulmonary Disease) (DC) Social History Smoking Status Status Date of Observation Current some day smoker March 9:42am Observation Status Observation Response Anand e of Response Smoking Status Current some day smoker April 12, 2020 9:42am Assigned Sex Male Vital Signs Vital Reading Result Ref erence Range Collection Date/Time Height 71 [in_i] April 12, 2020 9:42am Weight 195.00 [lb_av] April 12, 2020 9:42am Body Temperature 98.2 [degF] 97.6-99.5 April 12, 2020 8:00am Heart Rate 78 /min 60-100 April 12, 2020 8:00am Respiratory rate 16 /min 12-24 April 12, 2020 8:00am Oxygen saturation by Pulse oximetry 95 % 95- 100 April 12, 2020 8:00am BP Systolic 129 mm[Hg] April 12, 2020 8:00am BP Diastolic 70 mm[Hg] April 12, 2020 8:00am BMI (Body Mass Index) 27.1 kg/m2 April 12, 2020 9:42am
--- OUTSIDE RECORDS SUMMARY | 2020-07-03 09:14 | CCD ---
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 Name Role Phone Susan Talamantes MD Unavailable Unavailable Vinita, Susan Balbuena MD Unavailable Unavailable Vinita, Susan Balbuena MD Unavailable Unavailable [place]a, Susan Balbuena MD Unavailable Unavailable [place]a, Susan Balbuena MD Unavailable Unavailable [place]a, Susan Balbuena MD Unavailable Unavailable [place]a, Susan Balbuena MD Unavailable Unavailable [place]a, Susan Balbuena MD Unavailable Unavailable [place]a, Susan Balbuena MD Unavailable Unavailable [place]a, Susan Balbuena MD Unavailable Unavailable Vinita, Susan Balbuena MD Unavailable Unavailable [place]inita, Susan Balbuena MD Unavailable Unavailable Vinita, Susan Balbuena MD Unavailable Unavailable Vinita, Susan Balbuena MD Unavailable Unavailable Vinita, Susan Balbuena MD Unavailable Unavailable Vinita, Susan Balbuena MD Unavailable Unavailable Vinita, Susan Balbuena MD Unavailable Unavailable [place]a, Susan Balbuena MD Unavailable Unavailable [place]a, Susan Balbuena MD Unavailable Unavailable [place]a, Susan Balbuena MD Unavailable Unavailable [place]a, Susan Balbuena MD Unavailable Unavailable [place]a, Susan Balbuena MD Unavailable Unavailable [place]a, Susan Balbuena MD Unavailable Unavailable [place]a, Susan Balbuena MD Unavailable Unavailable [place]a, Susan Balbuena MD Unavailable Unavailable [place]a, Susan Balbuena MD Unavailable Unavailable [place], Susan Balbuena MD Unavailable Unavailable [place], Susan Balbuena MD Unavailable Unavailable [place]a, Susan Balbuena MD Unavailable Unavailable [place]a, Susan Balbuena MD Unavailable Unavailable [place]a, Susan Balbuena MD Unavailable Unavailable [place]a, Susan Blabuena MD Unavailable Unavailable [place], Susan Balbuena MD Unavailable Unavailable [place], Susan Balbuena MD Unavailable Unavailable [place], Susan Balbuena MD Unavailable Unavailable [place], Susan Balbuena MD Unavailable Unavailable [place], Susan Balbuena MD Unavailable Unavailable [place], Susan Balbuena MD Unavailable Unavailable [place], Susan Balbuena MD Unavailable Unavailable [place], Susan Balbuena MD Unavailable Unavailable [place]a, Susan Balbuena MD Unavailable Unavailable [place]inita, Susan Balbuena MD Unavailable Unavailable Vinita, Susan Balbuena MD Unavailable Unavailable [place]a, Susan Balbuena MD Unavailable Unavailable [place]inita, Susan Balbuena MD Unavailable Unavailable [place]a, Susan Balbuena MD Unavailable Unavailable [place]a, Susan Balbuena MD Unavailable Unavailable [place]a, Susan Balbuena MD Unavailable Unavailable [place]a, Susan Balbuena MD Unavailable Unavailable [place]a, Susan Balbuena MD Unavailable Unavailable [place]a, Susan Balbuena MD Unavailable Unavailable [place]a, Susan Balbuena MD Unavailable Unavailable [place]a, Susan Balbuena MD Unavailable Unavailable [place]a, Susan Balbuena MD Unavailable Unavailable [place]a, Susan Balbuena MD Unavailable Unavailable [place]inita, Susan Balbuena MD Unavailable Unavailable [place]inita, Susan Balbuena MD Unavailable Unavailable [place]inita, Susan Balbuena MD Unavailable Unavailable [place]a, Susan Balbuena MD Unavailable Unavailable Vinita, Susan Balbuena MD Unavailable Unavailable Vinita, Susan Balbuena MD Unavailable Unavailable Vinita, Susan Balbuena MD Unavailable Unavailable [place]a, Susan Balbuena MD Unavailable Unavailable [place]inita, Susan Balbuena MD Unavailable Unavailable [place]a, Susan Balbuena MD Unavailable Unavailable [place]inita, Susan Balbuena MD Unavailable Unavailable [place]a, Susan Balbuena MD Unavailable Unavailable [place]a, Susan Balbuena MD Unavailable Unavailable [place]inita, Susan Balbuena MD Unavailable Unavailable Vinita, Susan Balbuena MD Unavailable Unavailable [place]inita, Susan Balbuena MD Unavailable Unavailable [place]a, Susan Balbuena MD Unavailable Unavailable Susan Talamantes MD Unavailable Unavailable Susan Talamantes MD Unavailable Unavailable Susan Talamantes MD Unavailable Unavailable Susan Talamantes MD Unavailable Unavailable [place], John Romeo MD Unavailable Unavailable [place], John Romeo MD Unavailable Unavailable [place], John Romeo MD Unavailable Unavailable [place], John Romeo MD Unavailable Unavailable [place], John Lizett GONCALVES Unavailable Unavailable [place], John Lizett [place] Unavailable Unavailable [place], John Romeo MD Unavailable Unavailable [place], John Romeo MD Unavailable Unavailable [place], John Lizett [place] Unavailable Unavailable [place], John Lizett [place] Unavailable Unavailable [place], John Lizett [place] Unavailable Unavailable [place], John Lizett [place] Unavailable Unavailable [place], John Romeo MD Unavailable Unavailable [place], John Lizett [place] Unavailable Unavailable [place], John Lizett [place] Unavailable Unavailable [place], John Lizett [place] Unavailable Unavailable [place], John Lizett [place] Unavailable Unavailable [place], John Lizett [place] Unavailable Unavailable [place], John Lizett [place] Unavailable Unavailable [place], John Lizett [place] Unavailable Unavailable [place], John Lizett [place] Unavailable Unavailable [place], John Lizett [place] Unavailable Unavailable [place], John Lizett [place] Unavailable Unavailable [place], John Lizett [place] Unavailable Unavailable [place], John Lizett [place] Unavailable Unavailable [place], John Lizett [place] Unavailable Unavailable [place], John Lizett [place] Unavailable Unavailable [place], John Lizett [place] Unavailable Unavailable [place], John Lizett [place] Unavailable Unavailable [place], John Lizett [place] Unavailable Unavailable [place], John Lizett [place] Unavailable Unavailable [place], John Lizett [place] Unavailable Unavailable [place], John Lizett [place] Unavailable Unavailable [place], John Lizett [place] Unavailable Unavailable [place], John Lizett [place] Unavailable Unavailable [place], John Lizett [place] Unavailable Unavailable [place], John Romeo MD Unavailable Unavailable [place], John Romeo MD Unavailable Unavailable SleJulio wood MD Unavailable Unavailable SlezkaToniojcristiana [place] Unavailable Unavailable SlezkaToniojtech Unavailable Unavailable SleheatherkaJulio MD Unavailable Unavailable SlezkaJulio MD Unavailable Unavailable SlezkaToniojtech Unavailable Unavailable SlezkaToniojtech Unavailable Unavailable SlezkaToniojtech Unavailable Unavailable Slezka Vojtech MD Unavailable Unavailable SlezkaToniojtech Unavailable Unavailable SlezkaToniojtech Unavailable Unavailable SlezkaToniojtech Unavailable Unavailable Slezka Vojtech Unavailable Unavailable Slezka Vojtech Unavailable Unavailable Slezka Vojtech Unavailable Unavailable Slezka, Vojtech Unavailable Unavailable Slezka Vojtech Unavailable Unavailable Slezka Vojtech Unavailable Unavailable Slezka Julio G[place] Unavailable Unavailable Slezka Vojtech MD Unavailable Unavailable Julio Reyes MD Unavailable Unavailable Julio Reyes MD Unavailable Unavailable Julio Reyes MD Unavailable Unavailable Julio Reyes MD Unavailable Unavailable Julio Reyes MD Unavailable Unavailable Julio Reyes MD Unavailable Unavailable Julio Reyes MD Unavailable Unavailable Julio Reyes MD Unavailable Unavailable Julio Reyes MD Unavailable Unavailable Julio Reyes MD Unavailable Unavailable Julio Reyes MD Unavailable Unavailable Julio Reyes MD Unavailable Unavailable Julio Reyes MD Unavailable Unavailable Julio Reyes MD Unavailable Unavailable Julio Reyes MD Unavailable Unavailable Julio Reyes MD Unavailable Unavailable Julio Reyes MD Unavailable Unavailable Julio Reyes MD Unavailable Unavailable Julio Reyes MD Unavailable Unavailable Julio Reyes MD Unavailable Unavailable Julio Reyes MD Unavailable Unavailable Julio Reyes MD Unavailable Unavailable Julio Reyes MD Unavailable Unavailable Julio Reyes MD Unavailable Unavailable Julio Reyes MD Unavailable Unavailable Julio Reyes MD Unavailable Unavailable Julio Reyes MD Unavailable Unavailable Julio Reyes MD Unavailable Unavailable Julio Reyes MD Unavailable Unavailable Julio Reyes MD Unavailable Unavailable Julio Reyes MD Unavailable Unavailable Julio Reyes MD Unavailable Unavailable Julio Reyes MD Unavailable Unavailable Julio Reyes MD Unavailable Unavailable Julio Reyes MD Unavailable Unavailable Julio Reyes MD Unavailable Unavailable Julio Reyes MD Unavailable Unavailable Bethany Felix MD Unavailable Unavailable Bethany Felix MD Unavailable Unavailable Bethany Felix MD Unavailable Unavailable Bethany Felix MD Unavailable Unavailable Bethany Felix MD Unavailable Unavailable Bethany Felix MD Unavailable Unavailable Kian Cannon MD Unavailable Unavailable Susan Talamantes MD Unavailable Unavailable Susan Talamantes MD Unavailable Unavailable Susan Talamantes MD Unavailable Unavailable Susan Talamantes MD Unavailable Unavailable Susan Talamantes MD Unavailable Unavailable [place]a, Susan Balbuena MD Unavailable Unavailable [place], Susan Balbuena MD Unavailable Unavailable [place], Susan Balbuena MD Unavailable Unavailable [place], Susan Balbuena MD Unavailable Unavailable [place], Susan Balbuena MD Unavailable Unavailable [place]a, Susan Balbuena MD Unavailable Unavailable [place], Susan Balbuena MD Unavailable Unavailable [place], Susan Balbuena MD Unavailable Unavailable [place], Susan Balbuena MD Unavailable Unavailable [place], Susan Balbuena MD Unavailable Unavailable [place]a, Susan Balbuena MD Unavailable Unavailable [place], Susan Balbuena MD Unavailable Unavailable [place]a, Susan Balbuena MD Unavailable Unavailable [place]a, Susan Balbuena MD Unavailable Unavailable [place], Susan Balbuena MD Unavailable Unavailable [place], Susan Balbuena MD Unavailable Unavailable [place], Susan Balbuena MD Unavailable Unavailable Vinita, Susan Balbuena MD Unavailable Unavailable [place]a, Susan Balbuena MD Unavailable Unavailable [place]a, Susan Balbuena MD Unavailable Unavailable Vinita, Susan Balbuena MD Unavailable Unavailable Vinita, Susan Balbuena MD Unavailable Unavailable Vinita, Susan Balbuena MD Unavailable Unavailable Vinita, Susan Balbuena MD Unavailable Unavailable Vinita, Susan Balbuena MD Unavailable Unavailable Vinita, Susan Balbuena MD Unavailable Unavailable Vinita, Susan Balbuena MD Unavailable Unavailable Vinita, Susan Balbuena MD Unavailable Unavailable Vinita, Susan Balbuena MD Unavailable Unavailable Vinita, Susan Balbuena MD Unavailable Unavailable Vinita, Susan Balbuena MD Unavailable Unavailable Vinita, Susan Balbuena MD Unavailable Unavailable Vinita, Susan Balbuena MD Unavailable Unavailable Vinita, Susan Balbuena MD Unavailable Unavailable Vinita, Susan Balbuena MD Unavailable Unavailable V[place]a, Susan Balbuena MD Unavailable Unavailable [place]inita, Susan Balbuena MD Unavailable Unavailable [place]a, Susan Balbuena MD Unavailable Unavailable [place]a, Susan Balbuena MD Unavailable Unavailable [place]a, Susan Balbuena MD Unavailable Unavailable [place]a, Susan Balbuena MD Unavailable Unavailable [place]a, Susan Balbuena MD Unavailable Unavailable [place]a, Susan Balbuena MD Unavailable Unavailable [place]inita, Susan Balbuena MD Unavailable Unavailable Vinita, Susan Balbuena MD Unavailable Unavailable Vinita, Susan Balbuena MD Unavailable Unavailable Vinita, Susan Balbuena MD Unavailable Unavailable Vinita, Susan Balbuena MD Unavailable Unavailable Vinita, Susan Balbuena MD Unavailable Unavailable Vinita, Susan Balbuena MD Unavailable Unavailable Vinita, Susan Balbuena MD Unavailable Unavailable Vinita, Susan Balbuena MD Unavailable Unavailable Vinita, Susan Balbuena MD Unavailable Unavailable Vinita, Susan Balbuena MD Unavailable Unavailable Vinita, Susan Balbuena MD Unavailable Unavailable Vinita, Susan Balbuena MD Unavailable Unavailable Vinita, Susan Balbuena MD Unavailable Unavailable Vinita, Susan Balbuena MD Unavailable Unavailable Vinita, Susan Balbuena MD Unavailable Unavailable Vinita, Susan Balbuena MD Unavailable Unavailable Vinita, Susan Balbuena MD Unavailable Unavailable Vinita, Susan Balbunea MD Unavailable Unavailable Vinita, Susan Balbuena MD Unavailable Unavailable Vinita, Susan Balbuena MD Unavailable Unavailable Vinita, Susan Balbuena MD Unavailable Unavailable V[place]a, Susan Balbuena MD Unavailable Unavailable [place]a, Susan Balbuena MD Unavailable Unavailable [place]a, Susan Balbuena MD Unavailable Unavailable [place]a, Susan Balbuena MD Unavailable Unavailable Vinita, uSsan Balbuena MD Unavailable Unavailable Vinita, Susan Balbuena MD Unavailable Unavailable HONORIO DE SOUZA MD Unavailable Unavailable HONORIO DE SOUZA MD Unavailable Unavailable HONORIO DE SOUZA MD Unavailable Unavailable HONORIO DE SOUZA MD Unavailable Unavailable HONORIO DE SOUZA MD Unavailable Unavailable HONORIO DE SOUZA MD Unavailable Unavailable HONORIO DE SOUZA MD Unavailable Unavailable Isaisa Amaro MD Unavailable Unavailable Isaias Amaro MD Unavailable Unavailable Isaias Amaro MD Unavailable Unavailable Isaias Amaro MD Unavailable Unavailable Isaias Amaro MD Unavailable Unavailable Isaias Amaro MD Unavailable Unavailable Isaias Amaro MD Unavailable Unavailable Isaias Amaro MD Unavailable Unavailable Isaias Amaro MD Unavailable Unavailable Isaias Amaro MD Unavailable Unavailable Isaias Amaro MD Unavailable Unavailable Isaias Amaro MD Unavailable Unavailable Isaias Amaro MD Unavailable Unavailable Isaias Amaro MD Unavailable Unavailable Isaias Amaro MD Unavailable Unavailable Isaias Amaro MD Unavailable Unavailable Isaias Amaro MD Unavailable Unavailable Isaias Amaro MD Unavailable Unavailable Isaias Amaro MD Unavailable Unavailable Isaias Amaro MD Unavailable Unavailable Isaias Amaro MD Unavailable Unavailable Isaias Amaro MD Unavailable Unavailable Isaias Amaro MD Unavailable Unavailable Isaias Amaro MD Unavailable Unavailable Isaias Amaro MD Unavailable Unavailable Isaias Amaro MD Unavailable Unavailable Isaias Amaro MD Unavailable Unavailable Isaias Amaro MD Unavailable Unavailable Isaias Amaro MD Unavailable Unavailable Isaias Amaro MD Unavailable Unavailable Isaias Amaro MD Unavailable Unavailable Isaias Amaro MD Unavailable Unavailable Isaias Amaro MD Unavailable Unavailable Amaro, Isaias Stokes MD Unavailable Unavailable Amaro, Isaias Stokes MD Unavailable Unavailable Amaro, Isaias Stokes MD Unavailable Unavailable Amaro, Isaias Stokes MD Unavailable Unavailable Amaro, Isaias Stokes MD Unavailable Unavailable Amaro, Isaias Stokes MD Unavailable Unavailable Amaro, Isaias Stokes MD Unavailable Unavailable Amaro, Isaias Stokes MD Unavailable Unavailable Amaro, Isaias Stokes MD Unavailable Unavailable Amaro, Isaias Stokes MD Unavailable Unavailable Amaro, Isaias Stokes MD Unavailable Unavailable Amaro, Isaias Stokes MD Unavailable Unavailable Amaro, Isaias Stokes MD Unavailable Unavailable Amaro, Isaias Stokes MD Unavailable Unavailable Amaro, Isaias Stokes MD Unavailable Unavailable Amaro, Isaias Stokes MD Unavailable Unavailable Amaro, Isaias Stokes MD Unavailable Unavailable VENERUS, Toi MEDEIROS MD Unavailable Unavailable VENERUS, Toi MEDEIROS MD Unavailable Unavailable VENERUS, Toi MEDEIROS MD Unavailable Unavailable VENERUS, Toi MEDEIROS MD Unavailable Unavailable VENERUS, Toi MEDEIROS MD Unavailable Unavailable VENERUS, Toi MEDEIROS MD Unavailable Unavailable VENERUS, Toi MEDEIROS MD Unavailable Unavailable VENERUS, Toi MEDEIROS MD Unavailable Unavailable VENERUS, Toi MEDEIROS MD Unavailable Unavailable Vinita, Susan Balbuena MD Unavailable Unavailable [place]a, Susan Balbuena MD Unavailable Unavailable [place]a, Susan Balbuena MD Unavailable Unavailable [place]a, Susan Balbuena MD Unavailable Unavailable [place]a, Susan Balbuena MD Unavailable Unavailable [place]a, Susan Balbuena MD Unavailable Unavailable [place]a, Susan Balbuena MD Unavailable Unavailable [place]a, Susan Balbuena MD Unavailable Unavailable Vinita, Susan Blabuena MD Unavailable Unavailable [place]a, Susan Balbuena MD Unavailable Unavailable [place]a, Susan Balbuena MD Unavailable Unavailable Vinita, Susan Balbuena MD Unavailable Unavailable [place], Susan Balbuena MD Unavailable Unavailable Vinita, Susan Balbeuna MD Unavailable Unavailable [place]inita, Susan Balbuena MD Unavailable Unavailable [place]a, Susan Balbuena MD Unavailable Unavailable Vinita, Susan Balbuena MD Unavailable Unavailable Vinita, Susan Balbuena MD Unavailable Unavailable Vinita, Susan Balbuena MD Unavailable Unavailable Vinita, Susan Balbuena MD Unavailable Unavailable Vinita, Susan Balbuena MD Unavailable Unavailable Vinita, Susan Balbuena MD Unavailable Unavailable Vinita, Susan Balbuena MD Unavailable Unavailable [place]inita, Susan Balbuena MD Unavailable Unavailable [place]a, Susan Balbuena MD Unavailable Unavailable [place]a, Susan Balbuena MD Unavailable Unavailable [place]a, Susan Balbuena MD Unavailable Unavailable Vinita, Susan Balbuena MD Unavailable Unavailable Vinita, Susan Balbuena MD Unavailable Unavailable V[place]a, Susan Balbuena MD Unavailable Unavailable Vinita, Susan Balbuena MD Unavailable Unavailable [place]a, Susan Balbuena MD Unavailable Unavailable V[place]a, Susan Balbuena MD Unavailable Unavailable [place]a, Susan Balbuena MD Unavailable Unavailable [place]a, Susan Balbuena MD Unavailable Unavailable [place]inita, Susan Balbuena MD Unavailable Unavailable [place]inita, Susan Balbuena MD Unavailable Unavailable [place]inita, Susan Balbuena MD Unavailable Unavailable [place]a, Susan Balbuena MD Unavailable Unavailable [place]a, Susan Balbuena MD Unavailable Unavailable [place]inita, Susan Balbuena MD Unavailable Unavailable Vinita, Susan Balbuena MD Unavailable Unavailable V[place]a, Susan Balbuena MD Unavailable Unavailable [place]a, Susan Balbuena MD Unavailable Unavailable [place]a, Susan Balbuena MD Unavailable Unavailable [place]a, Susan Balbuena MD Unavailable Unavailable [place]a, Susan Balbuena MD Unavailable Unavailable [place], Susan Balbuena MD Unavailable Unavailable Vinita, Susna Balbuena MD Unavailable Unavailable [place]a, Susan Balbuena MD Unavailable Unavailable [place], Susan Balbuena MD Unavailable Unavailable [place]a, Susan Balbuena MD Unavailable Unavailable [place], Susan Balbuena MD Unavailable Unavailable [place], Susan Balbuena MD Unavailable Unavailable Vinita, Susan Balbuena MD Unavailable Unavailable [place]a, Susan Balbuena MD Unavailable Unavailable V[place]a, Susan Balbuena MD Unavailable Unavailable V[place]a, Susan Balbuena MD Unavailable Unavailable V[place]a, Susan Balbuena MD Unavailable Unavailable [place]a, Susan Balbuena MD Unavailable Unavailable Vinita, Susan Balbuena MD Unavailable Unavailable [place]a, Susan Balbuena MD Unavailable Unavailable [place]a, Susan Balbuena MD Unavailable Unavailable [place]a, Susan Balbuena MD Unavailable Unavailable [place]a, Susan Balbuena MD Unavailable Unavailable [place]a, Susan Balbuena MD Unavailable Unavailable [place]a, Susan Balbuena MD Unavailable Unavailable V[place]a, Susan Balbuena MD Unavailable Unavailable [place]a, Susan Balbuena MD Unavailable Unavailable [place]a, Susan Balbuena MD Unavailable Unavailable [place]a, Susan Balbuena MD Unavailable Unavailable [place]a, Susan Balbuena MD Unavailable Unavailable Vinita, Susan Balbuena MD Unavailable Unavailable Vinita, Susan Balbuena MD Unavailable Unavailable [place], Susan Balbuena MD Unavailable Unavailable [place]a, Susan Balbuena MD Unavailable Unavailable Re-disclosure Warning The records that you are about to access may contain information from federally-assisted alcohol or drug abuse programs. If such information is present, then the following federally mandated warning applies: This information has been disclosed to you from records protected by federal confidentiality rules (42 CFR part 2). The federal rules prohibit you from making any further disclosure of this information unless further disclosure is expressly permitted by the written consent of the person to whom it pertains or as otherwise permitted by 42 CFR part 2. A general authorization for the release of medical or other information is NOT sufficient for this purpose. The Federal rules restrict any use of the information to criminally investigate or prosecute any alcohol or drug abuse patient.The records that you are about to access may contain highly sensitive health information, the redisclosure of which is protected by Article 27-F of the [facility] Public Health law. If you continue you may have access to information: Regarding HIV / AIDS; Provided by facilities licensed or operated by the [facility] Office of Mental Health; or Provided by the [facility] Office for People With Developmental Disabilities. If such information is present, then the following [facility] mandated warning applies: This information has been disclosed to you from confidential records which are protected by state law. State law prohibits you from making any further disclosure of this information without the specific written consent of the person to whom it pertains, or as otherwise permitted by law. Any unauthorized further disclosure in violation of state law may result in a fine or skilled nursing sentence or both. A general authorization for the release of medical or other information is NOT sufficient authorization for further disc losure. Allergies and Adverse Reactions Type Description Substance Reaction Status Data Source(s ) Food allergy shellfish derived shellfish derived [facility] Family History Family Member Name Family Member Gender Family Member Status Date o f Status Description Data Source(s) Unknown Male Problem [facility] ([facility]) Unknown Male Problem [facility] ([facility]) Encounters Encounter Providers Location Date Indications Data Source(s ) Outpatient Attender: Lizett Nixon/[place] 06/22/2020 09:15:00 AM EST [facility] ([facility] Outpatient Attender: Lizett Nixon/[place] 06/14/2020 12:23:00 AM EST [facility] ([facility]) Outpatient Attender: Lizett Ortiz/[place] 06/13/2020 12:23:00 AM EST [facility] ([facility]) Outpatient Attender: Lizett Nixon/[place] 06/12/2020 12:23:00 AM EST [facility] ([facility]) Outpatient Referrer: Bethany Felix MD 06/11/2020 09:36:00 AM EST Pleural effusion, not elsewhere classified [facility] Pleural effusion, not elsewhere classifi ed Outpatient Attender: Lizett Nixon/[place] 06/10/2020 12:23:00 AM EST [facility] ([facility]) Outpatient Attender: Lizett Nixon/[place] 06/09/2020 12:23:00 AM EST [facility] ([facility]) Outpatient Attender: Lizett Nixon/[place] 06/08/2020 12:23:00 AM EST [facility] ([facility] Outpatient Admitter: Bethany Felix MDReferrer: Bethany Felix MD 06/08/2020 12:00:00 AM EST Secondary malignant neoplasm of unspecified site [facility] Secondary malignant neoplasm of unspecif ied site Outpatient Attender: Kike Nixon/[place]/[facility] 06/01/2020 09:00:00 AM EST [facility] ([facility]) Outpatient Attender: Julio Reyes MDReferrer: [email or web address] [email or web address] 05/28/2020 12:00:00 AM EST - 05/28/2020 10:45:33 AM EST [facility] Outpatient<td ID="encounterTypeDescripti [email or web address]">STANDARD OV</td><td>Esha Talamantes MD</td><td>Family Medicine [facility]</td><td>05/20/2020</td><td>8:34AM</td><td>05/07/2020 11:59PM</td><td><content ID="encounterDiagnosisID0-0">Working Diagnosis of Abdominal Pain</content>, <content ID="encounterDiagnosisID0-1">Working Diagnosis of Abdominal Pain in the [place] (Epigastric)</content>, <content ID="encounterDiagnosisID0-2">Chest Pain</content>, <content ID="encounterDiagnosisID0-3">Hypoxia</content></td> Attender: Esha Talamantes MD [facility] 05/20/2020 08:34:00 AM EST - 05/07/2020 11:59:00 PM EST HypoxiaChest PainWorking Diagnosis of Ab dominal Pain in the [place] (Epigastric)Working Diagnosis of Abdominal Pain ELIZABETH ([facility]) Hypoxia Chest Pain Working Diagnosis of Abdominal Pain in t he [place] (Epigastric) Working Diagnosis of Abdominal Pain Outpatient Attender: Esha Talamantes MDConsultant: Esha branch MD 05/07/2020 09:30:00 AM EST - 05/07/2020 10:30:00 AM [facility] Outpatient<td ID="encounterTypeDescripti onID1">STANDARD OV</td><td>Esha Talamantes MD</td><td>[facility]</td><td>05/07/2020</td><td>8:07AM</td><td>9:08AM</td><td><content ID="encounterDiagnosisID1-0">Acute Infective Exacerbation of Chronic Obstructive Airways Disease</content>, <content ID="encounterDiagnosisID1-1">Nicotine Dependence Uncomplicated</content>, <content ID="encounterDiagnosisID1- 2">Atypical Chest Pain</content></td> Attender: Esha Talamantes MD [facility] 05/07/2020 08:07:00 AM EST - 05/07/2020 09:08:00 AM ES T Atypical Chest PainNicotine Dependence UncomplicatedAcute Infective Exacerbation of Chronic Obstructive Airways DiseaseAtypical Chest PainNicotine Dependence UncomplicatedAcute Infective Exacerbation of Chronic Obstructive Airways Disease Atypical Chest PainNicotine Dependence UncomplicatedAcute Infective Exacerbation of Chronic Obstructive Airways Disease MODE ([facility]) Atypical Chest Pain Nicotine Dependence Uncomplicated Acute Infective Exacerbation of Chronic Obstructive Airways Disease Atypical Chest Pain Nicotine Dependence Uncomplicated Acute Infective Exacerbation of Chronic Obstructive Airways Disease Atypical Chest Pain Nicotine Dependence Uncomplicated Acute Infective Exacerbation of Chronic Obstructive Airways Disease Outpatient Attender: Esha Talamantes MDConsultant: Esha branch MD 04/30/2020 08:24:00 AM EST - 04/30/2020 09:24:00 AM EST [facility] Outpatient<td ID="encounterTypeDescripti onID2">HOSP I/P F/U</td><td>Esha Talamantes MD</td><td>[facility],</td><td>04/22/2020</td><td>10:05AM</td><td>11:03AM</td><td><content ID="encounterDiagnosisID2-0">Vitreous Floaters Right Eye</content>, <content ID="encounterDiagnosisID2-1">Chronic Obstructive Pulmonary Disease</content>, <content ID="encounterDiagnosisID2-2">Essential Hypertension Benign</content>, <content ID="encounterDiagnosisID2-3">Hyperlipidemia</content>, <content ID="encounterDiagnosisID2-4">Diabetes Mellitus Type 2 in Obese</content>, <content ID="encounterDiagnosisID2-5">Lung Mass</content>, <content ID="encounterDiagnosisID2-6">Fatigue</content></td> Attender: Esha Talamantes MD [facility], 04/22/2020 10:05:00 AM EST - 04/22/2020 11:03:00 AM EST FatigueLung MassDiabetes Mellitus Type 2 in ObeseEssential Hypertension BenignVitreous Floaters Right EyeFatigueLung MassDiabetes Mellitus Type 2 in ObeseEssential Hypertension BenignVitreous Floaters Right EyeFatigueLung Mass Diabetes Mellitus Type 2 in ObeseEssential Hypertension BenignVitreous Floaters Right EyeFatigueLung MassDiabetes Mellitus Type 2 in ObeseEssential Hypertension BenignVitreous Floaters Right EyeHyperlipidemiaChronic Obstructive Pulmonary DiseaseHyperlipidemiaChronic Obstructive Pulmonary DiseaseHyperlipidemiaChronic Obstructive Pulmonary DiseaseHyperlipidemiaChronic Obstructive Pulmonary Disease MODE ([facility]) Fatigue Lung Mass Diabetes Mellitus Type 2 in Obese Essential Hypertension Benign Vitreous Floaters Right Eye Fatigue Lung Mass Diabetes Mellitus Type 2 in Obese Essential Hypertension Benign Vitreous Floaters Right Eye Fatigue Lung Mass Diabetes Mellitus Type 2 in Obese Essential Hypertension Benign Vitreous Floaters Right Eye Fatigue Lung Mass Diabetes Mellitus Type 2 in Obese Essential Hypertension Benign Vitreous Floaters Right Eye Hyperlipidemia Chronic Obstructive Pulmonary Disease Hyperlipidemia Chronic Obstructive Pulmonary Disease Hyperlipidemia Chronic Obstructive Pulmonary Disease Hyperlipidemia Chronic Obstructive Pulmonary Disease Inpatient Attender: HONORIO Castorena nder: Kian Cannon MDAdmitter: HONORIO DE SOUZA MD 04/11/2020 09:58:00 PM EDT - 04/12/2020 11:42:00 AM EDT CHEST PAIN,COPD EXACERBATION [facility] CHEST PAIN,COPD EXACERBATION Patient discharged. Outpatient<td ID="encounterTypeDescripti onID3">RX UPDATE</td><td>Esha Talamantes MD</td><td>[facility]</td><td>11/20/2019</td><td>08/20/2019 11:10AM</td><td>08/20/2019 11:59PM</td><td></td> Attender: Esha Talamantes MD [facility] 08/20/2019 11:10:00 AM EST - 08/20/2019 11:59:00 PM [facility] ([facility]) Outpatient<td ID="encounterTypeDescripti onID4">ANNUAL PHYSICAL EXAM</td><td>Esha Talamantes MD</td><td>[facility]</td><td>08/20/2019</td><td>8:13AM</td><td>9:35AM</td><td><content ID="encounterDiagnosisID4-0">Fatigue</content>, <content ID="encounterDiagnosisID4-1">Hypogonadism</content>, <content ID="encounterDiagnosisID4-2">Hyperlipidemia</content>, <content ID="encounterDiagnosisID4-3">Benign Prostatic Hypertrophy</content>, <content ID="encounterDiagnosisID4-4">Diabetes Mellitus Type 2 in Nonobese</content>, <content ID="encounterDiagnosisID4-5">Routine History & Physical Senior Citizen with Abnormal Findings</content></td> Attender: Esha Talamantes MD [facility], 08/20/2019 08:13:00 AM EST - 08/20/2019 09:35:00 AM ES T Routine History & Physical Senior Citizen with Abnormal FindingsDiabetes Mellitus Type 2 in NonobeseBenign Prostatic HypertrophyHypogonadismFatigueRoutine History & Physical Senior Citizen with Abnormal FindingsDiabetes Mellitus Type 2 in NonobeseBenign Prostatic HypertrophyHypogonadismFatigueRoutine History & Physical Senior Citizen with Abnormal FindingsDiabetes Mellitus Type 2 in NonobeseBenign Prostatic HypertrophyHypogonadismFatigueRoutine History & Physical Senior Citizen with Abnormal FindingsDiabetes Mellitus Type 2 in NonobeseBenign Prostatic HypertrophyHypogonadismFatigueRoutine History & Physical Senior Citizen with Abnormal FindingsDiabetes Mellitus Type 2 in NonobeseBenign Prostatic HypertrophyHypogonadismFatigueRoutine History & Physical Senior Citizen with Abnormal FindingsDiabetes Mellitus Type 2 in NonobeseBenign Prostatic HypertrophyHypogonadismFatigue HyperlipidemiaHyperlipidemiaHyperlipidemiaHyperlipidemiaHyperlipidemiaHyperlipid noe JOHNSON ([facility]) Routine History & Physical Senior Citize n with Abnormal Findings Diabetes Mellitus Type 2 in Nonobese Benign Prostatic Hypertrophy Hypogonadism Fatigue Routine History & Physical Senior Citize n with Abnormal Findings Diabetes Mellitus Type 2 in Nonobese Benign Prostatic Hypertrophy Hypogonadism Fatigue Routine History & Physical Senior Citize n with Abnormal Findings Diabetes Mellitus Type 2 in Nonobese Benign Prostatic Hypertrophy Hypogonadism Fatigue Routine History & Physical Senior Citize n with Abnormal Findings Diabetes Mellitus Type 2 in Nonobese Benign Prostatic Hypertrophy Hypogonadism Fatigue Routine History & Physical Senior Citize n with Abnormal Findings Diabetes Mellitus Type 2 in Nonobese Benign Prostatic Hypertrophy Hypogonadism Fatigue Routine History & Physical Senior Citize n with Abnormal Findings Diabetes Mellitus Type 2 in Nonobese Benign Prostatic Hypertrophy Hypogonadism Fatigue Hyperlipidemia Hyperlipidemia Hyperlipidemia Hyperlipidemia Hyperlipidemia Hyperlipidemia Outpatient Attender: Esha Talamantes MDConsultant: Esha branch MD 08/12/2019 07:43:00 AM EST - 08/12/2019 08:43:00 AM [facility] Outpatient<td ID="encounterTypeDescripti onID5">STANDARD OV</td><td>Esha Talamantes MD</td><td>[facility]</td><td>08/07/2019</td><td>1:54PM</td><td>3:09PM</td><td><content ID="encounterDiagnosisID5-0">Cervicalgia</content>, <content ID="encounterDiagnosisID5-1">Chronic Obstructive Pulmonary Disease</content>, <content ID="encounterDiagnosisID5-2">Hypercalcemia</content>, <content ID="encounterDiagnosisID5-3">Bursitis Olecranon Left</content>, <content ID="encounterDiagnosisID5-4">Psoriasis</content>, <content ID="encounterDiagnosisID5-5">Diabetes Mellitus Secondary with Peripheral Neuropathy</content></td> Attender: Esha Talamantes MD [facility] 08/07/2019 01:54:00 PM EST - 08/07/2019 03:09:00 PM ES T Diabetes Mellitus Secondary with Peripheral NeuropathyPsoriasisBursitis Olecranon LeftHypercalcemiaCervicalgiaDiabetes Mellitus Secondary with Peripheral NeuropathyPsoriasisBursitis Olecranon LeftHypercalcemiaCervicalgiaDiabetes Mellitus Secondary with Peripheral NeuropathyPsoriasisBursitis Olecranon LeftHypercalcemiaCervicalgiaDiabetes Mellitus Secondary with Peripheral NeuropathyPsoriasisBursitis Olecranon LeftHypercalcemiaCervicalgiaDiabetes Mellitus Secondary with Peripheral NeuropathyPsoriasisBursitis Olecranon LeftHypercalcemiaCervicalgiaDiabetes Mellitus Secondary with Peripheral NeuropathyPsoriasisBursitis Olecranon LeftHypercalcemiaCervicalgiaPsoriasis Bursitis Olecranon LeftHypercalcemiaCervicalgiaDiabetes Mellitus Secondary with Peripheral NeuropathyPsoriasisBursitis Olecranon LeftHypercalcemiaCervicalgiaChronic Obstructive Pulmonary DiseaseChronic Obstructive Pulmonary DiseaseChronic Obstructive Pulmonary DiseaseChronic Obstructive Pulmonary DiseaseChronic Obstructive Pulmonary DiseaseChronic Obstructive Pulmonary DiseaseChronic Obstructive Pulmonary DiseaseChronic Obstructive Pulmonary Disease MODE ([facility]) Diabetes Mellitus Secondary with Periphe ral Neuropathy Psoriasis Bursitis Olecranon Left Hypercalcemia Cervicalgia Diabetes Mellitus Secondary with Periphe ral Neuropathy Psoriasis Bursitis Olecranon Left Hypercalcemia Cervicalgia Diabetes Mellitus Secondary with Periphe ral Neuropathy Psoriasis Bursitis Olecranon Left Hypercalcemia Cervicalgia Diabetes Mellitus Secondary with Periphe ral Neuropathy Psoriasis Bursitis Olecranon Left Hypercalcemia Cervicalgia Diabetes Mellitus Secondary with Periphe ral Neuropathy Psoriasis Bursitis Olecranon Left Hypercalcemia Cervicalgia Diabetes Mellitus Secondary with Periphe ral Neuropathy Psoriasis Bursitis Olecranon Left Hypercalcemia Cervicalgia Psoriasis Bursitis Olecranon Left Hypercalcemia Cervicalgia Diabetes Mellitus Secondary with Periphe ral Neuropathy Psoriasis Bursitis Olecranon Left Hypercalcemia Cervicalgia Chronic Obstructive Pulmonary Disease Chronic Obstructive Pulmonary Disease Chronic Obstructive Pulmonary Disease Chronic Obstructive Pulmonary Disease Chronic Obstructive Pulmonary Disease Chronic Obstructive Pulmonary Disease Chronic Obstructive Pulmonary Disease Chronic Obstructive Pulmonary Disease Outpatient 07/07/2019 03:17:00 PM [facility] Emergency Attender: MALA PANIAGUA MDConsultant: Esha branch MD 07/07/2019 01:18:00 PM [facility] - 07/07/2019 03:37:00 PM [facility] Patient discharged. Outpatient<td ID="encounterTypeDescripti onID6">STANDARD OV</td><td>Esha Talamantes MD</td><td>[facility],</td><td>06/25/2019</td><td>10:55AM</td><td>11:58AM</td><td><content ID="encounterDiagnosisID6-0">Chronic Obstructive Pulmonary Disease</content>, <content ID="encounterDiagnosisID6-1">Hyperlipidemia</content>, <content ID="encounterDiagnosisID6-2">Diabetes Mellitus Type 2</content>, <content ID="encounterDiagnosisID6-3">Obesity</content>, <content ID="encounterDiagnosisID6-4">Diabetes Mellitus Type 2 with Coma</content>, <content ID="encounterDiagnosisID6-5">Hypogonadism</content></td> Attender: Esha Talamantes MD [facility], 06/25/2019 10:55:00 AM EST - 06/25/2019 11:58:00 AM EST HypogonadismDiabetes Mellitus Type 2 wit h ComaObesityDiabetes Mellitus Type 2HypogonadismDiabetes Mellitus Type 2 with ComaObesityDiabetes Mellitus Type 2HypogonadismDiabetes Mellitus Type 2 with Com aObesityDiabetes Mellitus Type 2HypogonadismDiabetes Mellitus Type 2 with ComaObesityDiabetes Mellitus Type 2HypogonadismDiabetes Mellitus Type 2 with ComaObesityDiabetes Mellitus Type 2HypogonadismDiabetes Mellitus Type 2 with ComaObesityDiabetes Mellitus Type 2HypogonadismDiabetes Mellitus Type 2 with ComaObesityDiabetes Mellitus Type 2HypogonadismDiabetes Mellitus Type 2 with ComaObesityDiabetes Mellitus Type 2HypogonadismDiabetes Mellitus Type 2 with ComaObesityDiabetes Mellitus Type 2HyperlipidemiaChronic Obstructive Pulmonary DiseaseHyperlipidemiaChronic Obstructive Pulmonary DiseaseHyperlipidemiaChronic Obstructive Pulmonary DiseaseHyperlipidemiaChronic Obstructive Pulmonary DiseaseHyperlipidemiaChronic Obstructive Pulmonary DiseaseHyperlipidemiaChronic Obstructive Pulmonary DiseaseHyperlipidemiaChronic Obstructive Pulmonary DiseaseHyperlipidemiaChronic Obstructive Pulmonary DiseaseHyperlipidemiaChronic Obstructive Pulmonary Disease MODE ([facility]) Hypogonadism Diabetes Mellitus Type 2 with Coma Obesity Diabetes Mellitus Type 2 Hypogonadism Diabetes Mellitus Type 2 with Coma Obesity Diabetes Mellitus Type 2 Hypogonadism Diabetes Mellitus Type 2 with Coma Obesity Diabetes Mellitus Type 2 Hypogonadism Diabetes Mellitus Type 2 with Coma Obesity Diabetes Mellitus Type 2 Hypogonadism Diabetes Mellitus Type 2 with Coma Obesity Diabetes Mellitus Type 2 Hypogonadism Diabetes Mellitus Type 2 with Coma Obesity Diabetes Mellitus Type 2 Hypogonadism Diabetes Mellitus Type 2 with Coma Obesity Diabetes Mellitus Type 2 Hypogonadism Diabetes Mellitus Type 2 with Coma Obesity Diabetes Mellitus Type 2 Hypogonadism Diabetes Mellitus Type 2 with Coma Obesity Diabetes Mellitus Type 2 Hyperlipidemia Chronic Obstructive Pulmonary Disease Hyperlipidemia Chronic Obstructive Pulmonary Disease Hyperlipidemia Chronic Obstructive Pulmonary Disease Hyperlipidemia Chronic Obstructive Pulmonary Disease Hyperlipidemia Chronic Obstructive Pulmonary Disease Hyperlipidemia Chronic Obstructive Pulmonary Disease Hyperlipidemia Chronic Obstructive Pulmonary Disease Hyperlipidemia Chronic Obstructive Pulmonary Disease Hyperlipidemia Chronic Obstructive Pulmonary Disease Outpatient<td ID="encounterTypeDescripti onID7">Prescription Refill (Telephone, [id number]</td><td>Esha Talamantes MD</td><td></td><td>05/30/2019</td><td>02/04/2019 2:09PM</td><td>02/04/2019 11:59PM</td><td></td> Attender: Esha Talamantes MD 05/30/2019 02:09:00 PM EST - 02/04/2019 11:59:00 PM EDT ELIZABETH ([facility]) Functional Status Immunizations Vaccine Date Status Description Data Source(s) pneumococcal polysaccharide PPV23 08/07/2019 03:08:00 PM EST com pleted PCV (Pneumovax 23) ages 2+ 1 08/07/2019 Complete (Ref used - Patient objection) [facility] ([facility]) Medications Medication Brand Name Start Date Product Form Dose Route Admi nistrative Instructions Pharmacy Instructions Status Indications Reaction Description Data Source(s) 5 mg 06/14/2020 12:00:00 AM EST tablet 72 TAKE TWO TABLETS BY MOUTH TWICE A DAY FOR 6 DAYS THEN 1 TWICE A DAY THEREAFTER TAKE TWO TABLETS BY MOUTH TWICE A DAY FOR 6 DAYS THEN 1 TWICE A DAY THEREAFTER SOLD: 06/14/2020 [facility] pantoprazole 40 MG Delayed Release Oral Tablet PANTOPRAZOLE SODIUM 06/14/2020 12:00:00 AM EST tablet,delayed release (DR/EC) 30 T CARY ONE TABLET BY MOUTH EVERY DAY TAKE ONE TABLET BY MOUTH EVERY DAY SOLD: 06/14/2020 [facility] 100 mg 06/14/2020 12:00:00 AM EST capsule 60 TAKE ONE CAPSULE BY MOUTH TWICE A DAY TAKE ONE CAPSULE BY MOUTH TWICE A DAY SOLD: 06/14/2020 [facility] 7 ACTUAT umeclidinium 0.0625 MG/ACTUAT Dry Powder Inha ler [Incruse] Incruse Ellipta 06/01/2020 12:00:00 AM EST RESPIRATORY active [facility] ([facility], ) Prednisone 10 MG Oral Tablet Prednisone 06/01/2020 12:00:00 AM EST ORAL completed [facility] ([facility], ) Metformin hydrochloride 500 MG Oral Tablet metFORMIN ( GLUCOPHAGE) 500 MG tablet metFORMIN (GLUCOPHAGE) 500 MG tablet 05/20/2020 12:00:00 AM EST 1 { tbl} Oral active Take 1 tablet by mouth 2 (two) times a day [facility] Lancets Ultra Fine Miscellaneous Lancets Ultra Fine Miscella neous 05/20/2020 12:00:00 AM EST active Lancets Ultra Fine ELIZABETH ([facility]) IGlucose Test Strips In Vitro IGlucose Test Strips In Vitro 05/20/2020 12:00:00 AM EST active IGlucose Test Str ips MODE ([facility]) Albuterol 0.833 MG/ML / Ipratropium Brom delmer 0.167 MG/ML Inhalant Solution ipratropium-albuterol (DUO-NEB) 0.5-2.5 mg/mL nebulizer ipratropium-albuterol (DUO-NEB) 0.5-2.5 mg/mL nebulizer 05/20/2020 12:00:00 AM EST active INHALE 1 VIAL VIA NEB QID PRN [facility] Triamcinolone Acetonide 1 MG/ML Topical Lotion Triamcinolone Acetonide 0.1% External Lotion Triamcinolone Acetonide 0.1% External Lotion 0 12:00:00 AM EST active triamcinolone ac etonide 1 MG/ML Topical Lotion MODE ([facility]) atorvastatin 20 MG Oral Tablet Atorvastatin Calcium 20 MG Oral Tablet Atorvastatin Calcium 20 MG Oral Tablet 05/20/2020 12:00:00 AM EST 1 active [facility]vastatin 20 MG [facility] Metformin hydrochloride 500 MG Oral Tablet metFORMIN H Cl 500 MG Oral Tablet metFORMIN HCl 500 MG Oral Tablet 05/20/2020 12:00:00 AM EST active metformin hydrochloride 500 MG Oral Tablet MODE ([facility]) 60 ACTUAT Budesonide 0.16 MG/ACTUAT / fo rmoterol fumarate 0.0045 MG/ACTUAT Metered Dose Inhaler [Symbicort] Symbicort 160-4.5 MCG/ACT Inhalation Aerosol Symbicort 160-4.5 MCG/ACT Inhalation Aerosol 05/20/2020 12:00:00 AM EST active 60 ACTUAT budeso nide 0.16 MG/ACTUAT / formoterol fumarate 0.0045 MG/ACTUAT Metered Dose Inhaler [Symbicort] [facility]) 200 ACTUAT Albuterol 0.09 MG/ACTUAT Mete red Dose Inhaler [ProAir] ProAir HFA 108 (90 Base) MCG/ACT Inhalation Aerosol Solution ProAir HFA 108 (90 Base) MCG/ACT Inhalation Aerosol Solution 05/20/2020 12:00:00 AM EST 18 active [id number] 200 ACTUAT albuterol 0.09 MG/ACTUAT Metered Dose Inhaler [ProAir] [facility]) Lisinopril 5 MG Oral Tablet Lisinopril 5 MG Oral Tablet 07/2019 12:00:00 AM EST active lisinopril 5 MG O ral Tablet MODE ([facility]) Lisinopril 5 MG Oral Tablet lisinopril (PRINIVIL,ZESTR IL) 5 MG tablet lisinopril (PRINIVIL,ZESTRIL) 5 MG tablet 05/19/2020 12:00:00 AM EST 1 {tbl} O ral active Take 1 tablet by mouth daily [facility] Lisinopril 5 MG Oral Tablet Lisinopril 5 MG Oral Tablet 04/20 12:00:00 AM EST aborted lisinopril 5 MG Oral Tablet MODE ([facility]) Prednisone 10 MG Oral Tablet predniSONE 10 MG Oral Tab let predniSONE 10 MG Oral Tablet 05/07/2020 12:00:00 AM EST aborted prednisone 10 MG Oral Tablet [facility]) doxycycline hyclate 100 MG Oral Capsule Doxycycline Hy clate 100 MG Oral Capsule Doxycycline Hyclate 100 MG Oral Capsule 05/06/2020 12:00:00 AM EST active doxycycline hyclate 100 MG Oral Capsule [facility]) 60 ACTUAT Budesonide 0.16 MG/ACTUAT / fo rmoterol fumarate 0.0045 MG/ACTUAT Metered Dose Inhaler [Symbicort] Symbicort 160-4.5 MCG/ACT Inhalation Aerosol Symbicort 160-4.5 MCG/ACT Inhalation Aerosol 04/22/2020 12:00:00 AM EST aborted 60 ACTUAT budeso nide 0.16 MG/ACTUAT / formoterol fumarate 0.0045 MG/ACTUAT Metered Dose Inhaler [Symbicort] MODE ([facility]) 200 ACTUAT Albuterol 0.09 MG/ACTUAT Mete red Dose Inhaler [ProAir] ProAir HFA 108 (90 Base) MCG/ACT Inhalation Aerosol Solution ProAir HFA 108 (90 Base) MCG/ACT Inhalation Aerosol Solution 04/22/2020 12:00:00 AM EST 18 aborted [id number] 200 ACTUAT albuterol 0.09 MG/ACTUAT Metered Dose Inhaler [ProAir] MODE ([facility]) Metformin hydrochloride 500 MG Oral Tablet metFORMIN H Cl 500 MG Oral Tablet metFORMIN HCl 500 MG Oral Tablet 04/22/2020 12:00:00 AM EST aborted metformin hydrochloride 500 MG Oral Tablet MODE ([facility]) atorvastatin 20 MG Oral Tablet Atorvastatin Calcium 20 MG Oral Tablet Atorvastatin Calcium 20 MG Oral Tablet 04/22/2020 12:00:00 AM EST 1 aborted atorvastatin 20 MG Oral Tablet [facility]) Lisinopril 5 MG Oral Tablet Lisinopril 5 MG Oral Tablet 09/2019 12:00:00 AM EST 1 aborted lisinopril 5 MG Oral Tablet [facility]) Dextromethorphan Hydrobromide 2 MG/ML / Guaifenesin 20 MG/ML Oral Solution Dextromethorphan-Guaifenesin Dextromethorphan-Guaifenesin 04/12/2020 10:03:10 AM EDT 10 ML active [facility] Albuterol 0.833 MG/ML / Ipratropium Brom delmer 0.167 MG/ML Inhalant Solution Ipratropium-Albuterol Ipratropium-Albuterol 04/12/2020 10:02:36 AM EDT 3 ML active [facility] Prednisone 20 MG Oral Tablet Prednisone 04/12/2020 10:01:33 AM EDT 40 MG active [facility] Azithromycin 500 MG Oral Tablet Azithromycin 04/12/2020 10:00:43 AM EDT [address] [facility] atorvastatin 20 MG Oral Tablet Atorvastatin Atorvastatin 04/11/2020 09:16:15 PM EDT 20 MG active [facility] Fwflvltctptr-Xfeeetep-Ehhwwm (Centrum Silver) Tablet 04/11/2020 09:16:15 PM EDT 1 TAB active [facility] atorvastatin 20 MG Oral Tablet Atorvastatin Atorvastatin 04/11/2020 09:16:15 PM EDT 20 MG active [facility] Metformin hydrochloride 500 MG Oral Tablet Metformin 04/11 09:16:15 PM EDT 500 MG active [facility] Aspirin 04/11/2020 09:16:15 PM EDT 81 MG active [facility] Aspirin 04/11/2020 09:16:15 PM EDT 81 MG active [facility] 120 ACTUAT Budesonide 0.16 MG/ACTUAT / f ormoterol fumarate 0.0045 MG/ACTUAT Metered Dose Inhaler Budesonide-Formoterol (Symbicort) 160-4.5 mcg/actuation HFA aerosol inhaler Budesonide-Formoterol (Symbicort) 160-4. 5 mcg/actuation HFA aerosol inhaler 04/11/2020 09:16:15 PM EDT 2 PUFFS activ e [facility] Metformin hydrochloride 500 MG Oral Tablet Metformin 04/11 09:16:15 PM EDT 500 MG active [facility] 120 ACTUAT Budesonide 0.16 MG/ACTUAT / f ormoterol fumarate 0.0045 MG/ACTUAT Metered Dose Inhaler Budesonide-Formoterol (Symbicort) 160-4.5 mcg/actuation HFA aerosol inhaler Budesonide-Formoterol (Symbicort) 160-4. 5 mcg/actuation HFA aerosol inhaler 04/11/2020 09:16:15 PM EDT 2 PUFFS activ e [facility] Albuterol Sulfate (Proair Hfa) 90 mcg/actuation HFA aerosol inhaler 04/11/2020 09:16:15 PM EDT 2 PUFFS active [facility] Nadvbtmtlbuw-Qeyixbbw-Nccsmu 04/11/2020 09:16:15 PM EDT 1 T AB active [facility] Albuterol Sulfate (Proair Hfa) 90 mcg/actuation HFA aerosol inhaler 04/11/2020 09:16:15 PM EDT 2 PUFFS active [facility] 60 ACTUAT Budesonide 0.16 MG/ACTUAT / fo rmoterol fumarate 0.0045 MG/ACTUAT Metered Dose Inhaler [Symbicort] Symbicort 160-4.5 MCG/ACT Inhalation Aerosol Symbicort 160-4.5 MCG/ACT Inhalation Aerosol 11/20/2019 12:00:00 AM EDT aborted 60 ACTUAT budeso nide 0.16 MG/ACTUAT / formoterol fumarate 0.0045 MG/ACTUAT Metered Dose Inhaler [Symbicort] MODE ([facility]) Lisinopril 5 MG Oral Tablet Lisinopril 5 MG Oral Tablet 08/2019 12:00:00 AM EDT 1 aborted lisinopril 5 MG Oral Tablet [facility]) 200 ACTUAT Albuterol 0.09 MG/ACTUAT Mete red Dose Inhaler [ProAir] ProAir HFA 108 (90 Base) MCG/ACT Inhalation Aerosol Solution ProAir HFA 108 (90 Base) MCG/ACT Inhalation Aerosol Solution 10/24/2019 12:00:00 AM EDT 18 aborted [id number] 200 ACTUAT albuterol 0.09 MG/ACTUAT Metered Dose Inhaler [ProAir] MODE ([facility]) Lisinopril 5 MG Oral Tablet Lisinopril 5 MG Oral Tablet 08/2019 12:00:00 AM EST 1 aborted lisinopril 5 MG Oral Tablet MODE ([facility]) Triamcinolone Acetonide 1 MG/ML Topical Lotion Triamcinolone Acetonide 0.1% External Lotion Triamcinolone Acetonide 0.1% External Lotion 0 12:00:00 AM EST aborted triamcinolone a cetonide 1 MG/ML Topical Lotion [facility]) 200 ACTUAT Albuterol 0.09 MG/ACTUAT Mete red Dose Inhaler [ProAir] ProAir HFA 108 (90 Base) MCG/ACT Inhalation Aerosol Solution ProAir HFA 108 (90 Base) MCG/ACT Inhalation Aerosol Solution 08/20/2019 12:00:00 AM EST 18 aborted [id number] 200 ACTUAT albuterol 0.09 MG/ACTUAT Metered Dose Inhaler [ProAir] MODE ([facility]) 5000 MG Testosterone 0.01 MG/MG Topical Gel [Androgel] AndroGel 50 MG/5GM (1%) Transdermal AndroGel 50 MG/5GM (1%) Transdermal 08/20/2019 12:00:00 AM EST aborted 5000 MG testosterone 0.01 MG/MG Topical Gel [Androgel] MODE ([facility]) IGlucose Test Strips In Vitro IGlucose Test Strips In Vitro 08/20/2019 12:00:00 AM EST aborted IGlucose Test [facility] ([facility]) atorvastatin 20 MG Oral Tablet Atorvastatin Calcium 20 MG Oral Tablet Atorvastatin Calcium 20 MG Oral Tablet 08/20/2019 12:00:00 AM EST 1 aborted atorvastatin 20 MG Oral Tablet [facility]) 60 ACTUAT Budesonide 0.16 MG/ACTUAT / fo rmoterol fumarate 0.0045 MG/ACTUAT Metered Dose Inhaler [Symbicort] Symbicort 160-4.5 MCG/ACT Inhalation Aerosol Symbicort 160-4.5 MCG/ACT Inhalation Aerosol 08/20/2019 12:00:00 AM EST aborted 60 ACTUAT budeso nide 0.16 MG/ACTUAT / formoterol fumarate 0.0045 MG/ACTUAT Metered Dose Inhaler [Symbicort] MODE ([facility]) Lancets Ultra Fine Miscellaneous Lancets Ultra Fine Miscella neous 08/20/2019 12:00:00 AM EST aborted Lancets Ultra Fine MODE ([facility]) Metformin hydrochloride 500 MG Oral Tablet metFORMIN H Cl 500 MG Oral Tablet metFORMIN HCl 500 MG Oral Tablet 08/20/2019 12:00:00 AM EST aborted metformin hydrochloride 500 MG Oral Tablet MODE ([facility]) Lancets Ultra Fine Miscellaneous Lancets Ultra Fine Miscella neous 06/25/2019 12:00:00 AM EST aborted Lancets Ultra Fine MODE ([facility]) IGlucose Test Strips In Vitro IGlucose Test Strips In Vitro 06/25/2019 12:00:00 AM EST aborted IGlucose Test St [facility] MODE ([facility]) Metformin hydrochloride 500 MG Oral Tablet metFORMIN H Cl 500 MG Oral Tablet metFORMIN HCl 500 MG Oral Tablet 06/25/2019 12:00:00 AM EST aborted metformin hydrochloride 500 MG Oral Tablet MODE ([facility]) atorvastatin 20 MG Oral Tablet Atorvastatin Calcium 20 MG Oral Tablet Atorvastatin Calcium 20 MG Oral Tablet 06/25/2019 12:00:00 AM EST 1 aborted atorvastatin 20 MG Oral Tablet [facility] ([facility]) 60 ACTUAT Budesonide 0.16 MG/ACTUAT / fo rmoterol fumarate 0.0045 MG/ACTUAT Metered Dose Inhaler [Symbicort] Symbicort 160-4.5 MCG/ACT Inhalation Aerosol Symbicort 160-4.5 MCG/ACT Inhalation Aerosol 06/25/2019 12:00:00 AM EST aborted 60 ACTUAT budeso nide 0.16 MG/ACTUAT / formoterol fumarate 0.0045 MG/ACTUAT Metered Dose Inhaler [Symbicort] MODE ([facility]) Metformin hydrochloride 500 MG Oral Tablet metFORMIN H Cl 500 MG Oral Tablet metFORMIN HCl 500 MG Oral Tablet 05/30/2019 12:00:00 AM EST aborted metformin hydrochloride 500 MG Oral Tablet MODE ([facility]) 200 ACTUAT Albuterol 0.09 MG/ACTUAT Mete red Dose Inhaler [ProAir] ProAir HFA 108 (90 Base)MCG/ACT Inhalation Aerosol Solution ProAir HFA 108 (90 Base)MCG/ACT Inhalation Aerosol Solution 01/24/2019 12:00:00 AM EDT 18 aborted [id number] 200 ACTUAT albuterol 0.09 MG/ACTUAT Metered Dose Inhaler [ProAir] MODE ([facility]) Metformin hydrochloride 500 MG Oral Tablet metFORMIN H Cl 500MG Oral Tablet metFORMIN HCl 500MG Oral Tablet 01/24/2019 12:00:00 AM EDT aborted metformin hydrochloride 500 MG Oral Tablet MODE ([facility]) IGlucose Test Strips In Vitro IGlucose Test Strips In Vitro 01/24/2019 12:00:00 AM EDT aborted IGlucose Test [facility] MODE ([facility]) Triamcinolone Acetonide 1 MG/ML Topical Lotion Triamcinolone Acetonide 0.1% External Lotion Triamcinolone Acetonide 0.1% External Lotion 9 12:00:00 AM EDT aborted triamcinolone a cetonide 1 MG/ML Topical Lotion MODE ([facility]) Lancets Ultra Fine Miscellaneous Lancets Ultra Fine Miscella neous 01/24/2019 12:00:00 AM EDT aborted Lancets Ultra Fine MODE ([facility]) 30 ACTUAT fluticasone furoate 0.1 MG/ACT UAT / vilanterol 0.025 MG/ACTUAT Dry Powder Inhaler [Breo] Breo Ellipta 100-25MCG/INH Inhalation Aerosol Powder Breath Activated Breo Ellipta 100-25MCG/INH Inhalation Ae rosol Powder Breath Activated 01/24/2019 12:00:00 AM EDT aborted 30 ACTUAT fluticasone furoate 0.1 MG/ACTUAT / vilanterol 0.025 MG/ACTUAT Dry Powder Inhaler [Breo] MODE ([facility]) atorvastatin 20 MG Oral Tablet Atorvastatin Calcium 20 MG Oral Tablet Atorvastatin Calcium 20MG Oral Tablet 01/24/2019 12:00:00 AM EDT 1 aborted atorvastatin 20 MG Oral Tablet [facility] ([facility]) pantoprazole 40 MG Delayed Release Oral Tablet pantoprazole (PROTONIX) 40 MG tablet pantoprazole (PROTONIX) 40 MG tablet 04/16/2016 12:00:00 AM EDT aborted [facility] atorvastatin 40 MG Oral Tablet atorvastatin (LIPITOR) 40 MG tablet atorvastatin (LIPITOR) 40 MG tablet 10/10/2014 12:00:00 AM EDT aborted [facility] 200 ACTUAT Levalbuterol 0.045 MG/ACTUAT Metered Dose Inhaler [Xopenex] XOPENEX HFA 45 MCG/ACT inhaler XOPENEX HFA 45 MCG/ACT inhaler 04/23/2014 12:00:00 AM EST aborted [facility] ALBUTEROL IN aborted prn [facility] Nitroglycerin 0.4 MG Sublingual Tablet n itroglycerin (NITROSTAT) 0.4 MG SL tablet nitroglycerin (NITROSTAT) 0.4 MG SL tablet aborted sl prn cp-take up to 3 tabs 5 minutes apart to resolve cp [facility] DAILY DIONNE (THERAGRAN) per tablet 59026-777-71 Oral aborted Take by mouth [facility] Cholecalciferol 2000 UNT Oral Capsule Ch olecalciferol (VITAMIN D3) 2000 UNITS capsule Cholecalciferol (VITAMIN D3) 2000 UNITS capsule Oral aborted Take by mouth [facility] 24 HR metoprolol succinate 25 MG Extende d Release Oral Tablet metoprolol (TOPROL-XL) 25 MG 24 hr tablet metoprolol (TOPROL-XL) 25 MG 24 hr tablet 25 mg Oral aborted Take 25 mg by mouth [facility] Aspirin 325 MG Oral Tablet aspirin 325 MG tablet aspirin 325 MG tab let 81 mg Oral aborted Take 81 mg by mouth [facility] Insurance Providers Payer name Policy type / Coverage type Policy ID Covered constitution party ID Covered constitution party's relationship to nino Policy Nino Plan Information CELESTINO [id number] SP [id number] CELESTINO [id number] SP [id number] [place] [id number] O [id number] CELESTINO EXCHANGE U [id number] Self [id number] [facility] W [id number] Empl [id number] CELESTINO MEDICAID [id number] Emperatriz 7 [id number] CELE[employer]INO MEDICAID [id number] [place] [facility] [place] Other 0 Self 0 [place] [facility] [place] Other 0 Self 0 [place]ARE [place] -[place] [id number] 18 [id number] [place] Other 0 Self 0 [place] Other 0 Self 0 [place] Other 0 Self 0 [place] [facility] [place] Other 0 Self 0 [place] Other 0 Self 0 [place] Other 0 Self 0 [place] [facility] [place] Other 0 Self 0 [place] [id number] 18 [id number] [place] [facility] [place] Other 0 Self 0 [place] Other 0 Self 0 [place] [facility] [place] Other 0 Self 0 [place] Other 0 Self 0 [place] Other [place] Self 0 [facility] [facility] [place] Other 0 Self 0 [place] Other 0 Self 0 [place] U [id number] Self [id number] [facility] [id number] Empl [id number] [facility] [id number] Empl [id number] [place] Workers Compensation [id number] Self [id number] 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 [id number] Self [id number] 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 Self [place] Workers Compensation Self [place]LE[place] MEDICAID [id number] Emperatriz 7 [id number] MEDICAID [id number] Emperatriz [id number] POMCO [id number] Emperatriz [id number] [place] Commercial Self STATE INS FUND W [id number] Empl [id number] [place] O [id number] S [id number] STATE INSURANCE FUND O [id number] S [id number] STATE INSURANCE FUND O [id number] S [id number] [employer] [id number] SP [id number] POMCO [id number] SP [id number] Problems, Conditions, and Diagnoses Code Display Name Description Problem Type Effective Dates Data Source(s) 83425987 Type 1 diabetes mellitus Type 1 diabetes mellitus Prob rose 06/21/2020 12:00:00 AM EST [facility] ([facility], ) R06.02 Shortness of breath Shortness of breath [id number] 07/29/2019 12:00:00 AM EST [facility] R91.8 Mass of upper lobe of right lung Mass of upper l obe of right lung [id number] 05/28/2020 12:00:00 AM EST [facility] J90 Pleural effusion, not elsewhere classifi ed Pleural effusion, not elsewhere classified Diagnosis 06/11/2020 09:36:00 AM EST [facility] C79.9 Secondary malignant neoplasm of unspecif ied site Secondary malignant neoplasm of unspecified site Diagnosis 06/08/2020 08:48:00 AM EST [facility] I48.0 Paroxysmal atrial fibrillation Paroxysmal atrial fibri llation Diagnosis 05/28/2020 08:55:00 AM EST [facility] R06.02 Shortness of breath Shortness of breath Diagnosis 1 07/29/2019 08:55:00 AM [facility] R91.8 Other nonspecific abnormal finding of maira ng field Other nonspecific abnormal finding of maira Diagnosis 05/28/2020 08:55:00 AM [facility] R07.9 Chest pain, unspecified Chest pain, unspecified Diagno sis 05/28/2020 08:55:00 AM [facility] R079 Chest pain, unspecified Chest pain, unspecified Diagno sis 05/07/2020 09:30:00 AM [facility] I10 Essential (primary) hypertension Essential (primary) h ypertension Diagnosis 04/30/2020 08:24:00 AM [facility] E782 Mixed hyperlipidemia Mixed hyperlipidemia Diagnosis 04/30/2020 08:24:00 AM [facility] R5383 Other fatigue Other fatigue Diagnosis 04/30/2020 08:24:00 AM [facility] Z125 Encounter for screening for malignant ne oplasm of prostate Encounter for screening for malignant neoplasm of prostate Diagnosis 0 07:43:00 AM [facility] E291 Testicular hypofunction Testicular hypofunction Diagno sis 08/12/2019 07:43:00 AM [facility] E8352 Hypercalcemia Hypercalcemia Diagnosis 08/12/2019 07:43:00 AM [facility] [id number] Personal history of nicotine dependence Personal history of nicotine dependence Diagnosis 07/07/2019 01:18:00 PM [facility] Z7984 client liaison (current) use of oral hypoglyc emic drugs residential (current) use of oral hypoglycemic drugs Diagnosis 07/07/2019 01:18:00 PM [facility] Z7982 client liaison (current) use of aspirin residential (cu rrent) use of aspirin Diagnosis 07/07/2019 01:18:00 PM [facility] J449 Chronic obstructive pulmonary disease, u nspecified Chronic obstructive pulmonary disease, unspecified Diagnosis 07/07/2019 01:18:[address] [facility] E119 Type 2 diabetes mellitus without complic ations Type 2 diabetes mellitus without complications Diagnosis 07/07/2019 01:18:00 PM [facility] M7022 Olecranon bursitis, left elbow Olecranon bursitis, lef t elbow Diagnosis 07/07/2019 01:18:00 PM [facility] R2232 Localized swelling, mass and lump, left upper limb Localized swelling, mass and lump, left upper limb Diagnosis 07/07/2019 01:18:[address] [facility] Y9389 Activity, other specified Activity, other specified Di agnosis 07/07/2019 01:18:00 PM [facility] Surgeries/Procedures Procedure Description Date Indications Data Source(s) INSERTION INDWELLING TUNNELED PLEURAL CATHETER 020 12:00:00 AM EST [facility] ([facility], ) DEMO&/EVAL OF PT UTILIZ AERSL GEN/NEB/INHLR/IPPB 06/01 12:00:00 AM EST [facility] ([facility], ) ECG ROUTINE ECG W/LEAST 12 LDS W/I&R POCT AMB EKG Routine 05/28/2020 9:15 AM EST Chest pain, unspecified type 05/28/2020 02:15:00 PM EST [place] pain, unspecified type [facility] Chest pain, unspecified type ELECTROCARDIOGRAM, COMPLETE (EKG) ELECTROCARDIOGRAM, COMPLET E (EKG) 05/07/2020 12:00:00 AM EST [facility]) ELECTROCARDIOGRAM, COMPLETE (EKG) ELECTROCARDIOGRAM, COMPLET E (EKG) 05/07/2020 12:00:00 AM EST MODE ([facility]) Computed tomography angiography of thorax (procedure) 04/11/2020 08:44:00 PM EDT [facility] Computed tomography angiography of thorax (procedure) 04/11/2020 08:44:00 PM EDT [facility] l Plain chest X-ray (procedure) 04/11/2020 05:34:00 PM E DT [facility] CT Head without contrast 04/11/2020 05:34:00 PM EDT [facility] Plain chest X-ray (procedure) 04/11/2020 05:34:00 PM E DT [facility] CT Head without contrast 04/11/2020 05:34:00 PM EDT [facility] Blood Culture 04/11/2020 12:00:00 AM EDT [facility] SARS-CoV-2 (PCR) Interpretation 04/11/2020 12:00:00 AM EDT [facility] Blood Culture 04/11/2020 12:00:00 AM EDT [facility] SARS-CoV-2 (PCR) Interpretation 04/11/2020 12:00:00 AM EDT [facility] ELECTROCARDIOGRAM, COMPLETE (EKG) ELECTROCARDIOGRAM, COMPLET E (EKG) 08/20/2019 12:00:[address] [facility]) FECAL BLOOD ASSAY TEST (waived laboratory) FECAL BLOOD ASSAY TEST (waived laboratory) 08/20/2019 12:00:00 AM [facility]) O2 SATURATION> 88% /OLI>55 O2 SATURATION> 88% /OLI>55 2019 12:00:[address] [facility]) FECAL BLOOD ASSAY TEST FECAL BLOOD ASSAY TEST 08/20/2019 12:00:[address] [facility]) ELECTROCARDIOGRAM, COMPLETE (EKG) ELECTROCARDIOGRAM, COMPLET E (EKG) 08/20/2019 12:00:[address] [facility]) O2 SATURATION> 88% /OLI>55 O2 SATURATION> 88% /OLI>55 2019 12:00:[address] [facility]) Blood culture for bacteria, including anaerobic screen (proc edure) 07/07/2019 12:00:00 AM [facility] l Gram stain microscopy (procedure) 07/07/2019 12:00:00 AM [facility] Aerobic microbial culture (procedure) 07/07/2019 12:00 :00 AM [facility] Blood culture for bacteria, including anaerobic screen (proc edure) 07/07/2019 12:00:00 AM [facility] l Gram stain microscopy (procedure) 07/07/2019 12:00:00 AM [facility] Aerobic microbial culture (procedure) 07/07/2019 12:00 :00 AM [facility] HbA1c (Glycosolated) (waived laboratory) HbA1c (Glycos olated) (waived laboratory) 06/25/2019 12:00:00 AM [facility] ([facility]) CAPILLARY BLOOD DRAW CAPILLARY BLOOD DRAW 06/25/2019 12:00:00 AM [facility] ([facility]) GLUCOSE (waived laboratory) GLUCOSE (waived laboratory) 12/2019 12:00:00 AM [facility] ([facility]) O2 SATURATION> 88% /OLI>55 O2 SATURATION> 88% /OLI>55 2019 12:00:00 AM [facility] ([facility]) Results ID Date Data Source [id number] 06/22/2020 12:00:00 AM [facility] ology Imaging Lizett Cooley MD Patient Name: TOLU [id number] Date of : 1955[place] [address] Date of Exam: 06/22/2020#: Fax: [phone] EXAM: CHEST (2 VIEW) X-RAYCLINICAL INFORMATION: Followup pleural effusion.Two views.Comparison, multiples, the latest 06/14/2020.There is a right lower lobe opacity which has increased from the priorexam. The lung blackmon are otherwise unchanged. The cardiomediastinalsilhouette is unchanged. The osseous structures are unchanged.IMPRESSION:Increased right lower lobe opacity suspicious for a right pleural effusionwhich has increased in size and appears to at least in part be loculated.If clinically relevant, consider followup with chest CT.TIBURCIO Payne/Tanja you for referring TOLU RATLIFF to our office. Electronically Signed - JOANIE SNOWDEN DO 06/22/20 13:14 Name Value Range Interpretation Code Description Data Shelly rce(s) Supporting Document(s) ID Date Data Source [id number] 06/08/2020 04:28:00 AM EST [facility] Name Value Range Interpretation Code Description Data Shelly rce(s) Supporting Document(s) SARS coronavirus 2 RNA [Presence] in Res piratory specimen by KRISTEN with probe detection [facility] This lab was ordered by [facility] a nd reported by [facility]. ID Date Data Source [id number] 06/26/2020 06:36:00 PM [facility] Anatomic Molecular Pathology ReportName: TOLU RATLIFFMRMary: [id number] Number: [id number] Date: 06/08/2020 00:00Received Date: 06/16/2020 09:03Physician(s): BETHANY FELIX MD HAGHIR, SHAHANDEH F,MDCopy To:LIZETT COOLEY,[facility]ITALpecimen(s) ReceivedA: Pleural fluid, Formalin Block [id number] received from [facility] [place] [facility] in [place], [place], ROS1 by FISHDiagnosisTEST:ROS1 gene rearrangements by FISH (Fluorescence in situ Hybridization).RESULT:Percent tumor cells with ROS1 gene rearrangement (break-apart and/or 5'deletion) is 2%.ISCN - nuc buster (5'ROS1,3'ROS 1)x2~4(5'ROS1 con 3'ROS1x2~4)[49/50] INTERPRETATION: NEGATIVE FOR ROS1 GENE REARRANGEMENT.15% is used as a cut-off value: d15% is positive for ROS1 generearrangements while c15% is negative. ROS1 gene rearrangements, includingbreak-apart and/or 5' deletion, can be identified in 1-2% of non- smallcell lung cancer, and are associated with better response to treatmentwith crizotinib. candido/marcy Electronically Signed By Jhoan Miranda M.D. Attending Pathologist 06/26/2020 18:36:59Reported at [address] [place] [address]. Gross DescriptionMETHODOLOGY:Interphase FISH is performed on paraffin embedded NSCLC utilizing thecombined Vaughn Molecular LSI ROS1(Eliza) and ROS1(Tel) ROS1 Probes: 1)3'-ROS1(Eliza), 557 kb, labeled with SpectrumGreen, and 2) 5'- ROS1(Tel),317kb, labeled with SpectrumOrange. Tumor cells with no RAS5cmivdhminufqmc have 2 yellow signals (fused orange and green signal).Tumor cells with ROS1 rearrangement have orange and green signal(break apart) and/or deleted orange signal (5' deletion). Hybridization iscarried out as per the stated protocol with no significant background orrandom probe hybridization detected. A total of 50 -100 interphase tumornuclei are examined m anually by one or two scorers, depending on initialevaluation. d15% of tumor cells with ROS1 gene rearrangement is calledpositive.This test was developed and its performance characteristics weredetermined by the [facility],and it has been authorized for clinical use by [facility]. The test has not been cleared or approved by the U.S. Food andDrug Administration. The analyte specific reagents used in this assay donot require FDA approval. REFERENCES: 1. SHANTELL Juarez, Daisy AT, Theparadise RIVAS et al. Identifying and Targeting [id number] Fusions in NonSmall Cell Lung Cancer. Clin Cancer Res 2012; 18(17);11183055.2. Iqbal, Severo AT. Novel Targets in Non-Small Cell Lung Cancer:ROS-1 and RET fusions. The Oncologist. 2013;18:865-875.This report may include one or more immunohistochemical stain results thatuse analyte specific reagents. All positive and negative controls havebeen reviewed by the attending pathologist and are satisfactory. The testswere developed and their performance characteristics determined by [facility] Pathology department. They have not been cleared or approved by the USFood and Drug Administration. The FDA has determine d that such clearanceor approval is not necessary. Name Value Range Interpretation Code Description Data Shelly rce(s) Supporting Document(s) ID Date Data Source [id number] 06/25/2020 12:10:00 PM [facility] Anatomic Molecular Pathology ReportName: TOLU RATLIFFMRN: [id number] Number: [id number] Date: 06/08/2020 00:00Received Date: 06/16/2020 09:06Physician(s): BETHANY FELIX MD HAGHIR, SHAHANDEH F,MDCopy To:LIZETT COOLEY,EVANGELINAKINGSBROOK JEWISH MEDICAL CENTERpecimen(s) ReceivedA: Pleural fluid, Formalin Block [id number] received from [facility] [place] [facility] in [place] BRAF Mutation AnalysisDiagnosisTESTS:BRAF V600E mutation (1799 T>A) at exon 15 by real time PCR.RESULTS:Wild type probe (yellow gain): Ct value and end-point fluorescence are27.31 and 0.884 respectively.Mutant probe (green gain): Ct value and end-point fluorescence are 45.00and 0.105 respectively.(Mutant probe EPF cut-off value: 0.196)INTERPRETATION:NEGATIVE FOR BRAF V600E MUTATION.BRAF V600E (1799 T>A) mutation at exon 15 is a genetic alterationidentified in a variety of neoplasm and present in approximately 3% oflung adenocarcinoma. BRAF V600E in lung adenocarcinoma might be associatedwith decreased sensitivity to EGFR inhibitor such as gefitinib, andincreased response to BRAF inhibitor such as vemurafenib. The test resultis considered positive if the Ct value (mutant probe) is less than 45 andthe EPF is higher than cut-off value. If the percentage of mutant DNA isless than 10% in a background of wild-type DNA, the mutation may not bedetected by this assay. This result is an adjunct to other clinical andpathologic information for appropriate patient management.marcy/candidoElectronically Signed By Jhoan Miranda M.D. Attending Pathologist 06/25/2020 12:10:33Reported at [address] [place] [id number]. Gross DescriptionMETHODOLOGY:BRAF V600E(1799 T>A) mutation at exon 15 is detected by real time PCRusing allele-specific TaqMan probes and performed on paraffin embeddedtissues. The tumor area is identified by the pathologist and is manuallymicrodissected. The mutant probe was labeled with a FAM-fluorophore whilethe wild-type probe with a KVNG-fluorophore. The amount of fluorescentemissions rendered by specific probe hybridization was associated theamounts of PCR products, and analyzed by [employer] Q real timeinstrument. The analytical sensitivity (or minimum percentage of mutantDNA needed) is approximately 10% given sufficient DNA input. Test development and its performance characteristics were determined bythe [facility], and has beenauthorized for clinical use by [facility]. Thetest has not been cleared or approved by the U.S. Food and DrugAdministration. The analyte specific reagents used in this assay do notrequire FDA approval. REFERENCES: 1. Dolores S, Deandre Cortés, et al. Detection of BRAF Q279Mcvuunoon in colorectal cancer-comparison of automatic sequencing and realtime chemistry methodology. J Mol Diagn. 2006; 8:981761.2. Raul L, Chica REINA, Nayeli N, et al. BRAF mutation analysis in fineneedle aspiration (FNA) cytology of the thyroid. Diagn Mol Pa thol.2006;15:803058.3. Brenda PK, Glen ME, Lelo M, et al. Clinical characteristics ofpatients with lung adenocarcinomas harboring BRAF mutations. J Clin Oncol.2011;29:6939-0036.This report may include one or more immunohistochemical stain results thatuse analyte specific reagents. All positive and negative controls havebeen reviewed by the attending pathologist and are satisfactory. The testswere developed and their performance characteristics determined by [facility] Pathology department. They have not been cleared or approved by the USFood and Drug Administration. The FDA has determined that such clearanceor approval is not necessary. Name Value Range Interpretation Code Description Data Shelly rce(s) Supporting Document(s) ID Date Data Source [id number] 06/25/2020 09:32:00 [facility] Anatomic Molecular Pathology ReportName: TOLU RATLIFFN: [id number] Number: [id number] Date: 06/08/2020 00:00Received Date: 06/16/2020 09:04Physician(s): BETHANY FELIX MD HAGHIR, SHAHANDEH F,MDCopy To:LIZETT COOLEYMOHANSIC STATE HOSPITALpecimen(s) ReceivedA: Pleural fluid, Formalin Block [id number] received from [facility] [place] [facility] in [place] EGFRDiagnosisTEST: EGFR gene mutations (exon 19 deletions, L858R, G719A, T790M, S768I,exon 20 insertions, L861Q) by therascreene RGQ real-time PCR RESULTS: An EGFR mutation is not detected.INTERPRETATION: NEGATIVE FOR EGFR GENE MUTATION.This test is FDA approved and intended to be used to select patients withnon-small cell lung cancer for whom EGFR tyrosine kinase inhibitor (TKI),such as afatinib, is indicated. Presence of exon 19 deletions, exon [id number] or L861Q, exon 18 G719A or exon 20 S768I mutation is associated witha better response to TKI therapy. TKI therapeutic resistance of T790M andexon 20 insertions have been reported, and safety and efficacy of TKItherapy on these mutations have not been established. The results areadjuncts to other clinical and pathologic information available forevaluating the therapeutic response. Tumors that contain less than 20%mutation may not be detected in some mutation types by this assay. marcy/kgElectronically Signed By Jhoan Miranda M.D. Attending Pathologist 06/25/2020 09:32:10Reported at [address] [place] [address]. Gross DescriptionMETHODOLOGY:The therascreen EGFR RGQ PCR Kit ([employer], [place], [place]) is a real-timequalitative PCR assay used on the [employer] instrument for thedetection of seven types of mutations at EGFR oncogene. The kit requiresDNA extracted from formalin-fixed paraffin-embedded (FFPE) tissue ofnon-small cell lung cancer. The tumor area is identified by the attendingpathologist and manually microdissected. The assay uses Scorpionse andARMSe (Allele Refractory Mutation System) technologies, and isFDA-approved for clinical patient care. Allele-specific amplification isachieved by ARMS which exploits the ability of Taq DNA polymerase todistinguish between a matched and a mismatched base at the 3' end of a PCRprimer. Detection of amplification is performed using Scorpions, which arebifunctional molecules containing a PCR primer covalently linked to aprobe.REFERENCES:1. Aby Parsons, Deyanira Bello, Peg Lopez. et al. EGFR-targeted therapyfor non-small cell lung cancer: focus on EGFR oncogenic mutation. Int. J. Med. Sci. 2013; 10: 320. 2. Sasha Odom, et al. First-line gefitinib in patients withadvanced non-small cell lung cancer harboring somatic EGFR mutations. J.Clin.Oncol. 2008;15: 2442.3. Aleks SV, Shima RICHARDSON, Toño J et al. Epidermal growth factor receptormutations in lung cancer. Nature Review/Cancer. 2007;5099-4283.This report may include one or more immunohistochemical stain results thatuse analyte specific reagents. All positive and negative controls havebeen reviewed by the attending pathologist and are satisfactory. The testswere developed and their performance characteristics determined by [facility] Pathology department. They have not been cleared or approved by the USFood and Drug Administration. The FDA has determined that such clearanceor approval is not necessary. Name Value Range Interpretation Code Description Data Shelly rce(s) Supporting Document(s) ID Date Data Source [id number] 06/25/2020 09:18:00 AM [facility] Anatomic Molecular Pathology ReportName: HANNA RATLIFF: [id number] Number: [id number] Date: 06/08/2020 00:00Received Date: 06/16/2020 09:05Physician(s): BETHANY FELIX MD HAGHIR, SHAHANDEH F,[facility] To:LIZETT COOLEY,[facility]) ReceivedA: Pleural fluid, Formalin Block [id number] received from [facility] [place] [facility] in [place], [place] KRAS Mutation AnalysisDiagnosisTEST:KRAS gene mutations by therascreene RGQ real-time PCR (polymerase chainreaction).RESULTS:No KRAS mutations were detected.INTERPRETATION: NEGATIVE FOR KRAS GENE MUTATION.KRAS gene mutations at codon 12 or 13 of exon 2 may be associated withresistance to therapies with anti-EGFR monoclonal antibody, tyrosinekinase inhibitors or other related agents in patients with colon or lungcancer. The seven mutations (G12S, G12R, G12C, G12D, G12A, G12V, G13D)detected by this assay account for >97% of all reported KRAS mutations. The results are adjuncts to other clinical and pathologic information forevaluating the therapeutic response.kg/jajElectronically Signed By Jhoan Miranda M.D. Attending Pathologist 06/25/2020 09:18:25Reported at [address] [place] [address]. Gross DescriptionMETHODOLOGY:The therascreen KRAS RGQ PCR Kit is a real-time qualitative PCR assay usedon the [employer] instrument for the detection of seven somaticmutations in the human KRAS oncogene, using DNA extracted fromformalin-fixed paraffin-embedded (FFPE) colorectal cancer (CRC) tissue.The tumor area is identified by the pathologist and is manuallymicrodissected. The assay uses Scorpionse and ARMSe (Allele RefractoryMutation System) technologies, and is FDA-approved for clinical patientcare. Allele-specific amplification is achieved by ARMS which exploits theability of Taq DNA polymerase to distinguish between a matched and amismatched base at the 3' end of a PCR primer. Detection of amplificationis performed using Scorpions, bifunctional molecules containing a PCRprimer covalently linked to a probe.REFERENCES:1. TERRI Morejon, Terri JM, Somepeter MR, et al. [place] Societyof Clinical Oncology provisional clinical opinion: testing for KRAS genemutations in patients with metastatic colorectal carcinoma to predictresponse to anti-epidermal growth factor receptor monoclonal antibodytherapy. J Clin Oncol 27:6136-8606, 2009. 2. Magdalena S , Peg Javed , GALINA Mace, et al.Biomarkers predicting clinical outcome of epidermal growth factor receptortargeted therapy in metastatic colorectal cancer. J Natl Cancer Waly084:53655954, 2009.This report may include one or more immunohistochemical stain results thatuse analyte specific reagents. All positive and negative controls havebeen reviewed by the attending pathologist and are satisfactory. The testswere developed and their performance characteristics determined by [facility] Pathology department. They have not been cleared or approved by the USFood and Drug Administration. The FDA has determined that such clearanceor approval is not necessary. Name Value Range Interpretation Code Description Data Shelly rce(s) Supporting Document(s) ID Date Data Source [id number] 06/25/2020 09:10:00 AM [facility] Anatomic Molecular Pathology ReportName: ELSIE RATLIFFN: [id number] Number: [id number] Date: 06/08/2020 00:00Received Date: 06/16/2020 09:01Physician(s): BETHANY FELIX MD HAGHIR, SHAHANDEH F,MDCopy To:LIZETT COOLEY,[facility]pecimen(s) ReceivedA: Pleural fluid, Formalin Block [id number] received from [facility] [place] [facility] in [place], [place], ALK by FISHDiagnosisTEST:ALK gene rearrangements by FISH (Fluorescence in situ Hybridization).RESULT:Percent tumor cells with ALK gene rearrangement (break-apart and/or 5'deletion) is 6%.ISCN - nuc buster (5'ALK,3'ALK)x2~5(5'ALK con 3'ALKx2~5)[47/50] INTERPRETATION: NEGATIVE FOR ALK GENE REARRANGEMENT. 15% is used as a cut-off value: d15% is positive for ALK generearrangement while c15% is negative. ALK gene rearrangements, includingbreak apart and/or 5' deletion, can be identified in 3-7% of non- smallcell lung cancer, and are associated with better response to treatmentwith crizotinib. kg/jajElectronically Signed By Jhoan Miranda M.D. Attending Pathologist 06/25/2020 09:10:47Reported at [address] [place] [id number]. Gross DescriptionMETHODOLOGY:Interphase FISH is performed on paraffin embedded NSCLC utilizing theDJZ Molecular ALK Break Apart FISH Probe Kit. This is a combination,direct label, dual color detection system utilizing 2 probes: 1) 3'- ALK,300 kb, labeled with SpectrumOrange, and 2) 5'-ALK, 442 kb, labeled withSpectrumGreen. Tumor cells with no ALK rearrangements have 2 yellowsignals (fused orange and green signal). Tumor with ALK rearrangement haveseparated orange and green signal (break apart) and/or deleted greensignal (5' deletion). Hybridization is carried out as per the statedprotocol with no significant background or random probe hybridizationdetected. A total of 50 -100 interphase tumor nuclei are examined manuallyby one or two scorers, depending on initial evaluation. d15% of tumorcells with ALK gene rearrangement is called positive.This FISH Probe Kit was approved by FDA for this application and has beenvalidated in the special procedure laboratory of Department of Pathology,[facility]. This report may include one or more immunohistochemical stain results thatuse analyte specific reagents. All positive and negative controls havebeen reviewed by the attending pathologist and are satisfactory. The testswere developed and their performance characte ristics determined by [facility] Pathology department. They have not been cleared or approved by the USFood and Drug Administration. The FDA has determined that such clearanceor approval is not necessary. Name Value Range Interpretation Code Description Data Shelly rce(s) Supporting Document(s) ID Date Data Source [id number] 05/07/2020 09:36:00 AM [facility] ([facility]) Name Value Range Interpretation Code Description Data Shelly rce(s) Supporting Document(s) Reported Physicians See Note Reported Physici ans MODE ([facility]) Note: Reported Physicians:Ordering: Esha De La Garza AAttending: ESHA TALAMANTESConsulting: Alex TALAMANTES To: Esha Talamantes ID Date Data Source [id number] 05/07/2020 09:36:00 AM [facility] ([facility]) Name Value Range Interpretation Code Description Data Shelly rce(s) Supporting Document(s) Procalcitonin [Mass/volume] in Serum or Plasma by Immunoassay 0.04 ng/mL Procalcitonin [facility]) Note: A procalcitonin (PCT) level above 2.0 ng/mL on the firstday of ICU admission is associated with a high risk forprogression to severe sepsis and/or septic shock.A PCT level below 0.5 ng/mL on the first day of ICUadmission is associated with a low risk for progressionto severe sepsis and/or septic shock.Note: Concentrations <0.5 ng/mL do not exclude aninfection, on account of localized infections (withoutsystemic signs) which can be associated with such lowconcentrations, or a systemic infection in its initialstages (<6 hours).Furthermore, increased procalcitonin can occur withoutinfection. PCT concentrations between 0.5 and 2.0 ng/mLshould be interpreted taking into account the patient'shistory. It is recommended to retest PCT within 6-24 hoursif any concentrations <2 ng/mL are obtained.Responsible Observer: (rfl) ID Date Data Source [id number] 05/07/2020 09:36:00 AM [facility] ([facility]) Name Value Range Interpretation Code Description Data Shelly rce(s) Supporting Document(s) Reported Physicians See Note Reported [facility] ([facility]) Note: Reported Physicians:Ordering: Beard e, Esha AAttending: VINITA, JOCELYNConsulting: VINITA, JOCELYNCopy To: Vinita, Esha ID Date Data Source [id number] 05/07/2020 09:36:00 AM EST [facility] ([facility]) Name Value Range Interpretation Code Description Data Shelly rce(s) Supporting Document(s) SED RATE 18 mm/hr SED RATE MODE ([facility]) Note: Responsible Observer: (CM) SED RATE REENTER 18 SED RATE REENTER [facility] ([facility]) Note: Responsible Observer: (CM) ID Date Data Source [id number] 05/07/2020 09:36:00 AM EST MODE ([facility]) Name Value Range Interpretation Code Description Data Shelly rce(s) Supporting Document(s) Reported Physicians See Note Reported [facility] ([facility]) Note: Reported Physicians:Ordering: Beard e, Esha AAttending: VINITA, JOCELYNConsulting: VINITA, JOCELYNCopy To: Vinita, Esha ID Date Data Source [id number] 05/07/2020 09:36:00 AM [facility] ([facility]) Name Value Range Interpretation Code Description Data Shelly rce(s) Supporting Document(s) CRP-HS 8.40 MG/L Above high normal CRP-HS [facility] ([facility]) Note: CDC/S HS-CRP CUT-OFF : RELATIVE RISK: <1.0 mg/L Low 1.0 - 3.0 mg/L Average >3.0 mg/L High Optimally, the average of HS-CRP results repeated two weeks apart should be used for risk assessment.Responsible Observer: () ID Date Data Source [id number] 05/07/2020 09:36:00 AM EST [facility] ([facility]) Name Value Range Interpretation Code Description Data Shelly rce(s) Supporting Document(s) Reported Physicians See Note Reported [facility]) Note: Reported Physicians:Ordering: Beard e, Esha AAttending: VINITA, JOCELYNConsulting: VINITA, JOCELYNCopy To: Vinita, Esha ID Date Data Source [id number] 05/07/2020 09:36:00 AM EST [facility] ([facility]) Name Value Range Interpretation Code Description Data Shelly rce(s) Supporting Document(s) BNP 211 PG/ML Above high normal BNP MODE ([facility]) Note: Responsible Observer: () ID Date Data Source [id number] 05/07/2020 09:36:00 AM EST [facility] ([facility]) Name Value Range Interpretation Code Description Data Shelly rce(s) Supporting Document(s) Reported Physicians See Note Reported [facility] ([facility]) Note: Reported Physicians:Ordering: Beard e, Esha AAttending: VINITA, JOCELYNConsulting: VINITA, JOCELYNCopy To: Vinita, Esha ID Date Data Source [id number] 05/07/2020 09:36:00 AM EST [facility] ([facility]) Name Value Range Interpretation Code Description Data Shelly rce(s) Supporting Document(s) TROPONIN T <0.01 NG/ML TROPONIN T MODE ([facility]) Note: TROPONIN T0.1 ng/ml Recommended as the clinical threshold value forTroponin T.Responsible Observer: () ID Date Data Source [id number] 05/07/2020 09:36:00 AM EST [facility] ([facility]) Name Value Range Interpretation Code Description Data Shelly rce(s) Supporting Document(s) Reported Physicians See Note Reported Physici ans [facility] ([facility]) Note: Reported Physicians:Ordering: Esha De La Garza AAttending: ESHA TALAMANTESConsulting: Alex TALAMANTES To: Esha Talamantes ID Date Data Source [id number] 05/07/2020 09:36:00 AM EST [facility] ([facility]) Name Value Range Interpretation Code Description Data Shelly rce(s) Supporting Document(s) #BASO 0.05 10\\^3/uL #BASO [facility] ([facility]) Note: Responsible Observer: (MD) #EOS 0.38 10\\^3/uL #EOS [facility] ([facility]) Note: Responsible Observer: () #IG 0.03 10\\^3/uL #IG [facility] ([facility]) Note: Responsible Observer: () #LYMPH 1.37 10\\^3/uL #LYMPH [facility] ([facility]) Note: Responsible Observer: () #MONO 0.85 10\\^3/uL #MONO [facility] ([facility]) Note: Responsible Observer: () #NEUT 6.85 10\\^3/uL #NEUT [facility] ([facility]) Note: Responsible Observer: () #NRBC 0.00 10\\^3/uL #NRBC [facility] ([facility]) Note: Responsible Observer: (MD) %EOS 5 % %EOS [facility] ([facility]) Note: Responsible Observer: (CLD) %IG 0.3 % Above high normal %IG [facility] ([facility]) Note: Responsible Observer: (MD) %LYMPH 13 % Below low normal %LYMPH [facility] ([facility]) Note: Responsible Observer: (CLD) %MONO 7 % %MONO [facility] ([facility]) Note: Responsible Observer: (CLD) %NRBC 0.0 % %NRBC [facility] ([facility]) Note: Responsible Observer: (MD) BAND 0 % BAND [facility] ([facility]) Note: Responsible Observer: (CLD) BASO 0.5 % BASO [facility] ([facility]) Note: Responsible Observer: () Blasts [#] in Body fluid by Manual count 0 % BLASTS [facility] ([facility]) Note: Responsible Observer: (CLD) CBC W/MANUAL DIFF See Note CBC W/MANUAL DIFF [facility] ([facility]) Note: CO RRECTED REPORT COMPLETE BLOOD COUNTResponsible Observer: (CLD) EOS 4.0 % EOS [facility] ([facility]) Note: Responsible Observer: () Hematocrit [Pure volume fraction] of Blood by Automated count 41.4 % HEMATOCRIT MODE ([facility]) Note: Responsible Observer: () Hemoglobin [Mass/volume] in Mixed venous blood by Oximetry 14.0 g/d L HEMOGLOBIN [facility] ([facility]) Note: Responsible Observer: () LYMPH 14.4 % Below low normal LYMPH [facility] ([facility]) Note: Responsible Observer: () MANUAL DIFF SEE BELOW MANUAL DIFF [facility] ([facility]) Note: Responsible Observer: (CLD) MCH 30.2 pg MCH [facility] ([facility]) Note: Responsible Observer: () MCHC 33.8 g/dL MCHC [facility] ([facility]) Note: Responsible Observer: () MCV 89.2 fL MCV [facility] ([facility]) Note: Responsible Observer: () MONO 8.9 % Above high normal MONO [facility] ([facility]) Note: Responsible Observer: () MPV 8.6 fL MPV [facility] ([facility]) Note: Responsible Observer: () NEUT 71.9 % NEUT [facility] ([facility]) Note: Responsible Observer: () Platelets [#/area] in Blood by Microscopy high power field 300 10\\^ 3/uL PLATELETS [facility] ([facility]) Note: Responsible Observer: () RBC 4.64 10\\^6/uL RBC MODE ([facility]) Note: Responsible Observer: () RBC MORPH NOT INDICATED RBC MORPH MODE ([facility]) Note: FOLLOWING RE SULTS REPORTED IN ERROR MANUAL DIFF NOTINDICATED <-- *Previously reported in error 05/07/20.0948.MD . . .M{ CORRECTResponsible Observer: () RDW 12.2 % RDW MODE ([facility]) Note: Responsible Observer: () SEGS 75 % SEGS MODE ([facility]) Note: Responsible Observer: (MOISES) WBC 9.5 10\\^3/uL WBC MODE ([facility]) Note: Responsible Observer: () ID Date Data Source [id number] 05/12/2020 06:51:00 AM EST [facility] Name Value Range Interpretation Code Description Data Shelly rce(s) Supporting Document(s) Procalcitonin [Mass/volume] in Serum or Plasma 0.04 ng/mL 0.00-0.08 [facility] A procalcitonin (PCT) level above 2.0 ng /mL on the firstday of ICU admission is associated with a high risk forprogression to severe sepsis and/or septic shock.A PCT level below 0.5 ng/mL on the first day of ICUadmission is associated with a low risk for progressionto severe sepsis and/or septic shock.Note: Concentrations <0.5 ng/mL do not exclude aninfection, on account of localized infections (withoutsystemic signs) which can be associated with such lowconcentrations, or a systemic infection in its initialstages (<6 hours).Furthermore, increased procalcitonin can occur withoutinfection. PCT concentrations between 0.5 and 2.0 ng/mLshould be interpreted taking into account the patient'shistory. It is recommended to retest PCT within 6-24 hoursif any concentrations <2 ng/mL are obtained. ID Date Data Source [id number] 05/07/2020 10:37:00 AM [facility] Name Value Range Interpretation Code Description Data Shelly rce(s) Supporting Document(s) BNP 211 PG/ML 0 - 125 H [facility] Hospit [facility] ID Date Data Source [id number] 05/07/2020 10:37:00 AM [facility] Name Value Range Interpretation Code Description Data Shelly rce(s) Supporting Document(s) C reactive protein [Mass/volume] in Serum or Plasma by High sensitivity method 8.40 MG/L 1.00 - 3.00 H [facility] CDC/S HS-CRP CUT-OFF: RELATIVE RISK: <1.0 mg/L Low 1.0 - 3.0 mg/L Average >3.0 mg/L High Optimally, the average of HS-CRP results repeated two weeks apart should be used for risk assessment. ID Date Data Source [id number] 05/07/2020 10:27:00 AM [facility] Name Value Range Interpretation Code Description Data Shelly rce(s) Supporting Document(s) CBC W/MANUAL DIFF [facility] CORRECTE D REPORT COMPLETE BLOOD COUNT Leukocytes [#/volume] in Blood by Automated count 9.5 10^3/uL 4.2 - 1 1.0 [facility] Erythrocytes [#/volume] in Blood by Automated count 4.64 10^6/uL 4. 50 - 6.30 [facility] Hemoglobin [Mass/volume] in Blood 14.0 g/dL 14.0 - 16.0 [facility] Hematocrit [Volume Fraction] of Blood by Automated count 41.4 % 4 1.0 - 51.0 [facility] Erythrocyte mean corpuscular volume [Entitic volume] by Auto mated count 89.2 fL 80.0 - 94.0 [facility] Erythrocyte mean corpuscular hemoglobin [Entitic mass] by Automated count 30.2 pg 27.0 - 34.0 [facility] Erythrocyte mean corpuscular hemoglobin concentration [Mass/volume] by Automated count 33.8 g/dL 31.0 - 36.0 [facility] Erythrocyte distribution width [Ratio] by Automated count 12.2 % 11.5 - 14.8 [facility] Platelets [#/volume] in Blood by Automated count 300 10^3/uL 150 - 45 0 [facility] Platelet mean volume [Entitic volume] in Blood by Automated count 8.6 fL 7.4 - 10.4 [facility] Neutrophils/100 leukocytes in Blood by Automated count 71.9 % 37. 0 - 80.0 [facility] Lymphocytes/100 leukocytes in Blood by Manual count 14.4 % 25.0 - 40.0 L [facility] Monocytes/100 leukocytes in Blood by Automated count 8.9 % 3.0 - 8.0 H [facility] Eosinophils/100 leukocytes in Blood by Automated count 4.0 % 0.0 - 7.0 [facility] Basophils/100 leukocytes in Blood by Automated count 0.5 % 0.0 - 2.0 [facility] %IG 0.3 % 0.0 - 0.0 [facility]osp al %NRBC 0.0 % 0.0 - 0.0 [facility] al Neutrophils [#/volume] in Blood by Automated count 6.85 10^3/uL 2.00 - 6.90 [facility] Lymphocytes [#/volume] in Blood by Automated count 1.37 10^3/uL 0.60 - 3.40 [facility] Monocytes [#/volume] in Blood by Automated count 0.85 10^3/uL 0.00 - 0.90 [facility] Eosinophils [#/volume] in Blood by Automated count 0.38 10^3/uL 0.00 - 0.70 [facility] Basophils [#/volume] in Blood by Automated count 0.05 10^3/uL 0.00 - 0.20 [facility] #IG 0.03 10^3/uL 0.00 - 0.10 [facility] #NRBC 0.00 10^3/uL 0.00 - 0.00 [facility] MANUAL DIFF SEE BELOW [facility] Segmented neutrophils/100 leukocytes in Blood by Manual count 75 % 37 - 80 [facility] Hospital BAND 0 % 0 - 5 [facility] %LYMPH 13 % 25 - 40 L [facility] %MONO 7 % 3 - 8 [facility] %EOS 5 % 0 - 7 [facility] Blasts/100 leukocytes in Blood by Manual count 0 % [facility] RBC MORPH NOT INDICATED [facility] FOLLOWING RESULTS REPORTED IN ERROR MANUAL DIFF { CORRECT ID Date Data Source [id number] 05/07/2020 10:26:00 AM [facility] Name Value Range Interpretation Code Description Data Shelly rce(s) Supporting Document(s) TROPONIN T <0.01 NG/ML 0.00 - 0.10 [facility] ospital TROPONIN T0.1 ng/ml Recommended as the c linical threshold value forTroponin T. ID Date Data Source [id number] 05/07/2020 10:06:00 AM [facility] Name Value Range Interpretation Code Description Data Shelly rce(s) Supporting Document(s) Erythrocyte sedimentation rate by Westergren method 18 mm/hr 0 - 20 [facility] SED RATE REENTER 18 [facility] ID Date Data Source [id number] 04/30/2020 08:37:00 AM EST MODE ([facility]) Name Value Range Interpretation Code Description Data Shelly rce(s) Supporting Document(s) Reported Physicians See Note Reported Physici ans MODE ([facility]) Note: Reported Physicians:Ordering: Esha De La Garza AAttending: ESHA TALAMANTESConsulting: Alex TALAMANTES To: Esha Talamantes ID Date Data Source [id number] 04/30/2020 08:37:00 AM EST MODE ([facility]) Name Value Range Interpretation Code Description Data Shelly rce(s) Supporting Document(s) CPK 59 U/L CPK MODE ([facility]) Note: Responsible Observer: (TAD) ID Date Data Source [id number] 04/30/2020 08:37:00 AM EST MODE ([facility]) Name Value Range Interpretation Code Description Data Shelly rce(s) Supporting Document(s) Reported Physicians See Note Reported Physici ans MODE ([facility]) Note: Reported Physicians:Ordering: Esha De La Garza AAttending: ESHA TALAMANTESConsulting: JUSTUS TALAMANTESYNCopy To: Esha Talamantes ID Date Data Source [id number] 04/30/2020 08:37:00 AM EST MODE ([facility]) Name Value Range Interpretation Code Description Data Shelly rce(s) Supporting Document(s) Cholesterol [Moles/volume] in Pericardial fluid 162 MG/DL CHOLESTEROL MODE ([facility]) Note: Responsible Observer: (TAD) CVE PANEL See Note CVE PANEL MODE ([facility]) Note: LIPID PANELResponsible Observe r: (TAD) HDL 40 MG/DL HDL MODE ([facility]) Note: Responsible Observer: (TAD) Cholesterol in LDL [Mass/volume] in Serum or Plasma by Direct as say 91 mg/dL LDL MODE ([facility]) Note: Responsible Observer: (TAD) LDL/HDL 2.28 LDL/HDL MODE ([facility]) Note: CVE RISK CHOL/HD L LDL/HDLMEN: 1/2 AVERAGE 3.43 1.00 AVERAGE 4.97 3.55 2X AVERAGE 9.55 6.25 3X AVERAGE 23.99 7.99WOMEN: 1/2 AVERAGE 3.27 1.47 AVERAGE 4.44 3.22 2X AVERAGE 7.05 5.03 3X AVERAGE 11.04 6.14Responsible Observer: (TAD) RISK FACTOR 4.1 RISK FACTOR MODE ([facility]) Note: Responsible Observer: (TAD) TRIGLYCERIDES 198 MG/DL Above high normal [facility] Note: Responsible Observer: (TAD) ID Date Data Source [id number] 04/30/2020 08:37:00 AM EST MODE ([facility]) Name Value Range Interpretation Code Description Data Shelly rce(s) Supporting Document(s) Reported Physicians See Note Reported Physici ans MODE ([facility]) Note: Reported Physicians:Ordering: Beard e, Esha AAttending: VINITA, JOCELYNConsulting: VINITA, JOCELYNCopy To: Vinita, Esha ID Date Data Source [id number] 04/30/2020 08:37:00 AM EST MODE ([facility]) Name Value Range Interpretation Code Description Data Shelly rce(s) Supporting Document(s) URIC ACID 5.1 MG/DL URIC ACID MODE ([facility]) Note: Responsible Observer: (TAD) ID Date Data Source [id number] 04/30/2020 08:37:00 AM EST MODE ([facility] Name Value Range Interpretation Code Description Data Shelly rce(s) Supporting Document(s) Reported Physicians See Note [facility] Note: Reported Physicians:Ordering: Beard e, Esha AAttending: VINITA, JOCELYNConsulting: VINITA, JOCELYNCopy To: Vinita, Esha ID Date Data Source [id number] 04/30/2020 08:37:00 AM EST MODE ([facility]) Name Value Range Interpretation Code Description Data Shelly rce(s) Supporting Document(s) TSH 2.19 uIU/mL TSH MODE ([facility]) Note: Responsible Observer: (TAD) ID Date Data Source [id number] 04/30/2020 09:31:00 AM [facility] Name Value Range Interpretation Code Description Data Shelly rce(s) Supporting Document(s) Thyrotropin [Units/volume] in Serum or Plasma by Detec tion limit <= 0.05 mIU/L 2.19 uIU/mL 0.47 - 5.01 [facility] ID Date Data Source [id number] 04/30/2020 09:27:00 AM [facility] Name Value Range Interpretation Code Description Data Shelly rce(s) Supporting Document(s) Urate [Mass/volume] in Serum or Plasma 5.1 MG/DL 2.5 - 8.5 [facility] ID Date Data Source [id number] 04/30/2020 09:27:00 AM [facility] Name Value Range Interpretation Code Description Data Shelly rce(s) Supporting Document(s) Creatine kinase [Enzymatic activity/volume] in Serum or Plasma 5 9 U/L 30 - 170 [facility] ID Date Data Source [id number] 04/30/2020 09:27:00 AM [facility] Name Value Range Interpretation Code Description Data Shelly rce(s) Supporting Document(s) [facility] Cholesterol [Mass/volume] in Serum or Plasma 162 MG/DL 131 - 200 [facility] Deprecated Triglyceride [Mass/volume] in Serum or Plasma 198 MG/DL 3 5 - 160 H [facility] HDL 40 MG/DL 29 - 86 [facility] Cholesterol in LDL [Mass/volume] in Serum or Plasma by Direc t assay 91 mg/dL 65 - 175 [facility] Cholesterol.total/Cholesterol in HDL [Mass Ratio] in Serum o r Plasma 4.1 3.4 - 4.9 [facility] LDL/HDL 2.28 1.00 - 3.55 [facility] ital CVE RISK CHOL/HDL LDL/HDLMEN: 1/2 AVERAGE 3.43 1.00 AVERAGE 4.97 3.55 2X AVERAGE 9.55 6.25 3X AVERAGE 23.99 7.99WOMEN: 1/2 AVERAGE 3.27 1.47 AVERAGE 4.44 3.22 2X AVERAGE 7.05 5.03 3X AVERAGE 11.04 6.14 ID Date Data Source [id number] 04/12/2020 09:42:00 AM EDT [facility] Name: TOLU RATLIFF : 1955 Age: 64 MR#: [id number] Admit Date: 04/11/20 Provider: Honorio De oSuza MD Room #: 295 Consulting Provider: Dictation Date: 04/12/20 Discharge Summary Discharge Summary Problem List (1) COPD (chronic obstructive pulmonary disease): Status: Acute Code(s): J44.9 - Chronic obstructive pulmonary disease, unspecified Admit Info/Diagnoses/Course Date of service:: 04/12/20 Admission Information: Patient, TOLU RATLIFF, a 64 year old M, admitted on 04/11/20 21:58 by Honorio De Souza MD for CHEST PAIN,COPD EXACERBATION Family MD Talamantes,Esha Lorenzo M.D. Discharge Date: 04/12/20 Most Recent Lab Results: 04/12/20 06:40 04/12/20 06:40 Laboratory Results Last 24 hours 04/11/20 17:55: Magnesium 2.3 04/11/20 17:55: WBC 10.4, RBC 5.03, Hgb 15.5, Hct 46.2, MCV 91.8, MCH 30.8, MCHC 33.5, RDW 12, Plt Count 243, MPV 9.3, Immature Gran % (Auto) 0.3, Neut % (Auto) 68.7, Lymph % (Auto) 20.9, [place] % (Auto) 8.4, Eos % (Auto) 1.2, Baso % (Auto) 0.5, Lymph # (Auto) 2.2, Abs Immat Gran (auto) 0.0, Add Manual Diff No, Absolute Neutrophils 7.2, Monocytes # 0.9, Absolute Eosinophils 0.1, Absolute Basophils 0.1 04/11/20 17:55: Sodium 138, Potassium 3.9, Chloride 103, Carbon Dioxide 26, Anion Gap 13, BUN 17, Creatinine 1.0, GFR Calculation Greater than 60, Glucose 150 H, Calcium 9.4, Total Bilirubin 0.8, AST 15, ALT 33, Alkaline Phosphatase 60, Troponin I Less than 0.015, Serum Total Protein 8.0, Albumin 3.8 04/11/20 17:55: Lactic Acid 2.1 04/11/20 17:55: Creatine Kinase 158, CK-MB (CK-2) 3.8, CK-MB (CK-2) % 2.4 04/11/20 17:55: ESR Westergren 13 04/11/20 19:59: Urine Color Yellow, Urine Juan A earance Clear, Urine pH 5.0, Ur Specific [place] 1.010,Urine Protein Negative, Urine Ketones Negative, Urine Blood Negative, Urine Nitrate Negative, Urine Bilirubin Negative, Urine Urobilinogen 0.2 eu/dl, Ur Leukocyte Esterase Negative, Add Ur Microanalysis No, Urine Glucose Negative 04/11/20 22:10: Lactic Acid 1.7 04/11/20 22:10: Troponin I Less than 0.015 04/11/20 23:13: POC Glucose 199 H 04/12/20 06:40: WBC 14.6 H, RBC 4.85, Hgb 14.7, Hct 44.4, MCV 91.5, MCH 30.3, MCHC 33.1, RDW 13, PltCount 235, MPV 9.5, Immature Gran % (Auto) 0.5, Neut % (Auto) 94.0 H, Lymph % (Auto) 4.2 L, [place] % (Auto) 1.2 L, Eos % (Auto) 0.0, Baso % (Auto) 0.1 L, Lymph # (Auto) 0.6, Abs Immat Gran (auto) 0.1, Add Manual Diff Manual diff added, Total Counted 100, Neutrophils (Manual) 97 H, Absolute Neutrophils 13.8 H, Lymphocytes (Manual) 3 L, Monocytes # 0.2, Absolute Eosinophils 0.0, Absolute Basophils 0.0, Platelet Estimate Appears normal, RBC Morphology Appears normal 04/12/20 06:40: Sodium 138, Potassium 4.6, Chloride 105, Carbon Dioxide 25, Anion Gap 13, BUN 19, Creatinine 1.1, GFR Calculation Greater than 60, Glucose 212 H, Calcium 9.2, Total Bilirubin 0.5, AST11, ALT 30, Alkaline Phosphatase 58, Troponin I Less than 0.015, Serum Total Protein 7.1, Albumin 3.4 04/12/20 07:19: POC Glucose 197 H Microbiology 04/11/20 21:30 Nasopharyngeal SARS-CoV-2 (PCR) Interpretation - Final No Organisms Detected Hospital Course: 64 y/o M initially came to ER c/o shortness of breath, cough, whitish sputum, rightsided chest pain brought on by coughing. Repeat troponin- negative, EKG- NSR. CT chest- no acute pathology. Chest pain resolved after 30 mg iv Toradol. Pt was started on iv steroids, duonebs and PO Azithromycin. Over the course of treatment pt's clinical condition improved and his shortness of breath resolved. Pt was seen and examined at bedside on day of discharge. Pt stated that he is feeling fine and did not have any complaint. Pt was informed about abnormal CT chest finding and was instructed to f/u with PMD for shoe repairman referral. Pt was clinically and vitally stable at the time of discharge. Exam Condition Vital Signs - Most Recent: Last Vital Signs Temp 98.7 F 04/12/20 04:00 Pulse 88 04/12/20 07:47 Resp 18 04/12/20 07:47 BP 133/73 04/12/20 04:00 Pulse Ox 97 04/12/20 07:47 Ht Wt BMI Current Height 5 ft 11 in Current Weight 195 lb Body Mass Index (BMI) 27.1 Body Mass Index (BMI) Overweight Classification General: positive Alert, positive Oriented x3, positive Cooperative and positive No acute distress HEENT: Mucous membr. moist/pink Neck: Supple Lungs: Other (b/l decreased breath sounds, no rhonchi/wheezing ) Cardiovascular: Regular rate, Normal S1 and Normal S2 Abdomen: Normal bowel sounds and Soft Extremities: No edema Skin: Skin warm and dry, Mucus membranes moist Neurological: Normal speech and Strength at 5/5 X4 ext Psych/Mental Status: Mood NL Medications Home Medications albuterol sulfate [ProAir HFA] 2 puff INHALATION PRN PRN 04/11/20 [History] aspirin 81 mg PO DAILY 04/11/20 [History] atorvastatin 20 mg PO DAILY 04/11/20 [History] budesonide-formoterol [Symbicort] 2 puff INHALATION BID 04/11/20 [History] metformin 500 mg PO DAILY 04/11/20 [History] zejjtesorday-fzbuewgl-gpjdhq 1 tab PO DAILY 04/11/20 [History] azithromycin 500 mg PO DAILY 2 Days #2 tab 04/12/20 [Rx] dextromethorphan-guaifenesin 10 ml PO Q4H PRN #237 ml 04/12/20 [Rx] ipratropium-albuterol 3 ml NEB Q6H PRN #180 ml 04/12/20 [Rx] prednisone 40 mg PO DAILY #8 tab 04/12/20 [Rx] Quality Measures Tobacco Use Smoking Status: Current some day smoker Smoking Cessation Education: Smoking cessation plan of care discussed and agreed upon BMI Screening: Current Height: 5 ft 11 in Current Weight: 195 lb Body Mass Index (BMI): 27.1 Influenza Immunization Hx/Date of Influenza Vaccination (from nursing Hx): No Diabetes Care Measures Glucose/POC Glucose: POC Glucose last 48 hrs 04/11/20 04/12/20 23:13 07:19 POC Glucose 199 H 197 H Glucose last 48 hrs 04/11/20 04/12/20 17:55 06:40 Glucose 150 H 212 H Discharge Plan Admission/Discharge Dx Primary DC Diagnosis: Resolved episode of COPD exacerbation Condition Condition: Good Discharge Detail Disposition: Home, Self-Care Med Rec New Prescriptions: New azithromycin 500 mg tablet 500 mg PO DAILY 2 Days Qty: 2 RF: 0 prednisone 20 mg tablet 40 mg PO DAILY Qty: 8 RF: 0 ipratropium-albuterol 0.5 mg-3 mg(2.5 mg base)/3 mL Solution For Nebulization 3 ml NEB Q6H PRN (Reason: Shortness Of Breath/Wheezing) Qty: 180 RF: 0 dextromethorphan-guaifenesin 10-100 mg/5 mL Syrup 10 ml PO Q4H PRN (Reason: Cough) Qty: 237 RF: 0 Continued metformin 500 mg tablet 500 mg PO DAILY RF: 0 atorvastatin 20 mg tablet 20 mg PO DAILY RF: 0 aspirin 81 mg Tablet 81 mg PO DAILY RF: 0 albuterol sulfate [ProAir HFA] 90 mcg/actuation HFA aerosol inhaler 2 puff INHALATION PRN PRN (Reason: Shortness Of Breath) RF: 0 fqujmooesywc-tbaabula-pqklki Tablet 1 tab PO DAILY RF: 0 budesonide-formoterol [Symbicort] 160-4.5 mcg/actuation HFA aerosol inhaler 2 puff INHALATION BID RF: 0 Medications Medication reconciliation performed by provider at discharge: Yes Follow Up Care/Instructions Diet/Activity/Wound Care..: f/u with PMD for pulmonary referral for Abnormal CT chest finding- 40 x 23 mm irregular shaped mass versus scarring within the right upper lobe, 6.3 mm nodule within the right lower lobe, small right pleural effusion. f/u with PMD for Cardiology referral for continuation of care for AFib and episode of chest pain *Discharge Patient* Discharge Orders: Discharge Order (Routine); Ordered 04/12/20 Ordered By: Honorio De Souza Dictated by: <Electronically signed by Honorio De Souza MD> Honorio De Souza MD 04/12/20 1008 Honorio De Souza MD SIGNATURE DA Report Cosigners: D: ASHERYVI 04/12/20941 T: ASHERYVI 04/12/20941 CC: Name Value Range Interpretation Code Description Data Shelly rce(s) Supporting Document(s) ID Date Data Source [id number] 04/12/2020 07:40:00 AM EDT [facility] @04/12/20 07: MANUAL DIFF added. RFLXG = DIFF. @04/12/20728: MANUAL DIFF added. RFLXG = DIFF. Name Value Range Interpretation Code Description Data Shelly rce(s) Supporting Document(s) Leukocytes [#/volume] in Blood by Automated count 14.6 10*3/uL 4.45-10.71 Above high normal [facility] Erythrocytes [#/volume] in Blood by Automated count 4.85 10*6/uL 4.3- 6.1 N [facility] Hemoglobin [Moles/volume] in Blood 14.7 g/dL 13-18 N [facility] Hematocrit [Volume Fraction] of Blood by Automated count 44.4 % 4 2-52 N [facility] Erythrocyte mean corpuscular volume [Ent itic volume] in Cord blood by Automated count 91.5 fL 80-96 N [facility] ital Erythrocyte mean corpuscular hemoglobin [Entitic mass] by Automated count 30.3 pg 27-31 [facility] E[facility]throcyte mean corpuscular hemoglobin concentration [Mass/volume] in Cord blood 33.1 g/dL 33-37 N [facility] ital Erythrocyte distribution width [Entitic volume] by Automated count 13 % 11-15 N [facility] Platelets [#/volume] in Blood by Automated count 235 10*3/uL 130-472 N [facility] Platelet mean volume [Entitic volume] in Blood 9.5 fL 9.1-13.1 N [facility] Neutrophils/100 leukocytes in Blood by Automated count 94.0 % 41-77 Above high normal [facility] @PERFORM SLIDE SCAN IF NOT AGREE MAN DIF F@DOCUMENT SLIDE SCAN COMMENT Neutrophils [#/volume] in Blood by Automated count 13.8 U 1.7-7.6 Above high normal [facility] Lymphocytes/100 leukocytes in Blood by Automated count 4.2 % 14-46 Below low normal [facility] Lymphocytes [#/volume] in Blood by Automated count 0.6 U 0.6-4.6 N [facility] Monocytes/100 leukocytes in Blood by Automated count 1.2 % 4-12 Below low normal [facility] Monocytes [#/volume] in Blood by Automated count 0.2 U 0.2-1.2 N [facility] Eosinophils/100 leukocytes in Blood by Automated count 0.0 % 0-7 N [facility] Eosinophils [#/volume] in Blood by Automated count 0.0 U 0.0-0.5 N [facility] Basophils/100 leukocytes in Blood by Automated count 0.1 % 0.4-1.3 Below low normal [facility] Basophils [#/volume] in Blood by Automated count 0.0 U 0.0-0.2 N [facility] NUCLEATED RED BLOOD CELL 0 % [facility] NUCLEATED RED BLOOD CELL# 0 U [facility] Immature granulocytes [Presence] in Blood by Automated count 0-2 N [facility] Immature granulocytes [#/volume] in Blood by Automated count 0.1 U 0-0.1 N [facility] Manual Differential panel - Blood Manual Diff Added [facility] ID Date Data Source [id number] 04/12/2020 07:53:00 AM EDT [facility] @04/12/20 0729: MANUAL DIFF added. RFLXG = DIFF. @04/12/20 0729: MANUAL DIFF added. RFLXG = DIFF. Name Value Range Interpretation Code Description Data Sehlly rce(s) Supporting Document(s) Urea nitrogen [Mass/volume] in Serum or Plasma 19 mg/dL 9-23 N [facility] Sodium [Moles/volume] in Serum or Plasma 138 mmol/L 132-146 N [facility] Potassium [Moles/volume] in Serum or Plasma 4.6 mmol/L 3.5-5.5 N [facility] Chloride [Moles/volume] in Serum or Plasma 105 mmol/L 99-109 N [facility] Carbon dioxide, total [Moles/volume] in Serum or Plasma 25 mmol/L 20 -31 N [facility] Anion gap in Serum or Plasma 13 mmol/L 8-[address] [facility] Glucose [Mass/volume] in Serum or Plasma 212 mg/dL 74-106 Above high normal [facility] Creatinine 1.1 mg/dL 0.5-1.1 [facility] Glomerular filtration rate/1.73 sq M.pre dicted [Volume Rate/Area] in Serum or Plasma Greater Than 60 ABOVE 60 [facility] Alanine aminotransferase [Enzymatic acti vity/volume] in Serum or Plasma by With P-5'-P 30 U/L 10-49 N [facility] ital Aspartate aminotransferase [Enzymatic ac tivity/volume] in Serum or Plasma by With P-5'-P 11 U/L 0-33 N [facility] pital Alkaline phosphatase [Enzymatic activity/volume] in Serum or Plasma 58 U/L 45-129 N [facility] Calcium [Mass/volume] in Serum or Plasma 9.2 mg/dL 8.5-10.1 [facility] Bilirubin.total [Mass/volume] in Serum or Plasma 0.5 mg/dL 0.3-1.2 [facility] Albumin [Mass/volume] in Serum or Plasma by Bromocresol purple (BCP) dye binding method 3.4 g/dL 3.2-4.8 [facility] ital Protein [Mass/volume] in Serum or Plasma 7.1 g/dL 5.7-8.2 [facility] ID Date Data Source [id number] 04/12/2020 07:40:00 AM EDT [facility] @04/12/20 07: MANUAL DIFF added. RFLXG = DIFF. @04/12/20 0729: MANUAL DIFF added. RFLXG = DIFF. Name Value Range Interpretation Code Description Data Shelly rce(s) Supporting Document(s) Cells counted [#] 100 [facility] Neutrophils [#/volume] in Blood by Manual count 97 % 41-77 Above high normal [facility] @Are you sure? Please be sure this value is correct YES Lymphocytes [#/volume] in Blood by Manual count 3 % 14-46 Below low normal [facility] Platelets [#/volume] in Blood by Estimate APPEARS NORMAL NORMAL [facility] Morphology [Interpretation] in Blood Narrative APPEARS NORMAL NORMAL [facility] ID Date Data Source [id number] 04/12/2020 07:53:00 AM EDT [facility] @04/12/20 07: MANUAL DIFF added. RFLXG = DIFF. @04/12/20728: MANUAL DIFF added. RFLXG = DIFF. Name Value Range Interpretation Code Description Data Shelly rce(s) Supporting Document(s) Troponin I.cardiac [Mass/volume] in Serum or Plasma Less Than 0.015 0.00-0.09 N [facility] Less than 0.09 NG/ML Negative0.10 - 0.77 NG/ML High Risk0.78 NG/ML or Greater PositiveThe WHO defined the cutoff (definition for diagnosis of [place])for this method as 0.78 ng/ml. ID Date Data Source [id number] 04/12/2020 06:40:00 AM [facility] Name Value Range Interpretation Code Description Data Shelly rce(s) Supporting Document(s) Reported Physicians See Note Reported Physici ans MODE ([facility]) Note: Reported Physicians:Ordering: Pradeep Ferraraending: John De Souzaitting: Honorio De SouzaCopninfa To: Ancelmo De SouzaamCopninfa To: Esha Talamantes ID Date Data Source [id number] 04/12/2020 06:40:00 AM [facility]) Name Value Range Interpretation Code Description Data Shelly rce(s) Supporting Document(s) Troponin I.cardiac [Mass/volume] in Serum or Plasma Less Than 0.015 Normal Troponin I [facility] ([facility]) Note: Less than 0.09 NG/ML Negative 0.10 - 0.77 NG/ML High Risk0.78 NG/ML or Greater PositiveThe WHO defined the cutoff (definition for diagnosis of [place])for this method as 0.78 ng/ml.Responsible Observer: Troponin I Troponin I 600.1101 (G) ID Date Data Source [id number] 04/12/2020 06:40:00 AM [facility] ([facility]) Name Value Range Interpretation Code Description Data Shelly rce(s) Supporting Document(s) MANUAL DIFF See Note MANUAL DIFF ELIZABETH ([facility]) Note: NOTES OTHER/NOT INTERPRETED Cells counted 100 Lymphocytes # Bld Manual 3 %Morphology Bld-Imp APPEARS NORMAL Neutrophils # Bld Manual 97 %Platelet # Bld Est APPEARS NORMAL @Are you sure? Please be sure this value is correct YES@04/12/20 0729: MANUAL DIFF added. RFLXG = DIFF.Responsible Observer: TOTAL CELLS TOTAL CELLS COUNTED 100.2105 (A) ID Date Data Source [id number] 04/12[facility]2020 06:40[facility] Name Value Range Interpretation Code Description Data Shelly rce(s) Supporting Document(s) Reported Physicians See Note Reported Physici ans MODE ([facility]) Note: Reported Physicians:Ordering: Pradeep Ferraraending: John De Souzaitting: Pete De Souza To: Ancelmo De SouzaamVlad To: Esha Talamantes ID Date Data Source [id number] 04/12/2020 06:40:00 AM Judy MODE ([facility]) Name Value Range Interpretation Code Description Data Shelly rce(s) Supporting Document(s) Alanine aminotransferase [Enzymatic acti vity/volume] in Serum or Plasma by With P-5'-P 30 enzyme_unit_per_liter Normal ALT SerPl w P-5' -P-cCnc MODE ([facility]) Note: Responsible Observer: SGPT/ALT SGP T/ALT 400.1750 (G) Calcium [Mass/volume] in Serum or Plasma 9.2 MilliGramsPerDeciLiter_[Mass_Concentration_Units] Normal Calcium [facility] ([facility]) Note: Responsible Observer: Calcium Calc ium 400.2500 (G) Bilirubin.total [Mass/volume] in Serum or Plasma 0.5 MilliGramsPerDeciLiter_[Mass_Concentration_Units] Normal Bilirub [facility] ([facility]) Note: Responsible Observer: T ABDIRAHMAN Total Bilirubin 400.2600 (G) Carbon dioxide, total [Moles/volume] in Serum or Plasm a 25 MilliMolesPerLiter_[Substance_Concentration_Units] Normal CO2 [facility] ([facility]) Note: Responsible Observer: CO2 Carbon D ioxide 400.1400 (G) Chloride [Moles/volume] in Serum or Plasma 105 MilliMolesPerLiter_[Substance_Concentration_Units] Normal Chloride [facility] ([facility]) Note: Responsible Observer: Chloride Chl oride 400.1250 (G) Glucose [Mass/volume] in Serum or Plasma 212 MilliGramsPerDeciLiter_[Mass_Concentration_Units] Above high normal Glucose [facility] ([facility]) Note: Responsible Observer: Glucose Gluc ose 400.1500 (G) Potassium [Moles/volume] in Serum or Plasma 4.6 MilliMolesPerLiter_[Substance_Concentration_Units] Normal Potassium [facility] ([facility]) Note: Responsible Observer: K Potassium 400.1210 (G) Protein [Mass/volume] in Serum or Plasma 7.1 GramsPerDeciLiter_[Mass_Concentration_Units] Normal Pro t [facility] ([facility]) Note: Responsible Observer: TP Total Pro tein 400.2800 (G) Sodium [Moles/volume] in Serum or Plasma 138 MilliMolesPerLiter_[Substance_Concentration_Units] Normal Sodium [facility] ([facility]) Note: Responsible Observer: Sodium Sodiu m 400.1100 (G) Aspartate aminotransferase [Enzymatic ac tivity/volume] in Serum or Plasma by With P-5'-P 11 enzyme_unit_per_liter Normal AST [facility] P-5' -[facility] ([facility]) Note: Responsible Observer: SGOT / AST S GOT / AST 400.1900 (G) Urea nitrogen [Mass/volume] in Serum or Plasma 19 MilliGramsPerDeciLiter_[Mass_Concentration_Units] Normal BUN [facility] ([facility]) Note: Responsible Observer: BUN Blood Ur ea Nitrogen 400.1000 (G) Anion gap in Serum or Plasma 13 MilliMolesPerLiter_[Substance_Concentration_Units] Normal Anion Gap SerPl-sCnc MODE ([facility]) Note: Responsible Observer: ANION GAP AN ION GAP 400.1402 (E) Albumin [Mass/volume] in Serum or Plasma by Bromocresol purple (BCP) dye binding method 3.4 GramsPerDeciLiter_[Mass_Concentration_Units] Normal Albumin [facility] BCP-mCnc MODE ([facility]) Note: Responsible Observer: Albumin [place] 400.2700 (G) Alkaline phosphatase [Enzymatic activity/volume] in Se rum or Plasma 58 enzyme_unit_per_liter Normal ALP [facility] ( [facility]) Note: Responsible Observer: ALP Alkaline Phosphatase 400.2000 (G) Glomerular filtration rate/1.73 sq M.pre dicted [Volume Rate/Area] in Serum or Plasma Greater Than 60 GFR/BSA.pred SerPlBld-ArV Rat MODE ([facility]) Note: Responsible Observer: GFR Glomerul ar Filt Rate Calc 400.1605 (D) Creatinine [Moles/volume] in Vitreous fluid 1.1 MilliGramsPerDeciLiter_[Mass_Concentration_Units] Normal Creatinine MODE ([facility]) Note: Responsible Observer: Creatinine C reatinine 400.1600 (G) ID Date Data Source [id number] 04/12/2020 06:40:00 AM EDT MODE ([facility]) Name Value Range Interpretation Code Description Data Shelly rce(s) Supporting Document(s) Erythrocyte mean corpuscular volume [Ent itic volume] in Cord blood by Automated count 91.5 FemtoLiter_[SI_Volume_Units] Normal MCV Bld Co Auto MODE ([facility]) Note: Responsible Observer: MCV MCV 100 .0600 (B) Erythrocyte distribution width [Entitic volume] by Automated cou nt 13 percent Normal RDW RBC Auto MODE ([facility]) Note: Responsible Observer: RDW RDW 100 .0900 (B) Manual Differential panel - Blood Manual Diff Added Manual diff Bld MODE ([facility]) Note: Responsible Observer: CBC Manual D ifferential Added 100.1990 (B) Platelet mean volume [Entitic volume] in Blood 9.5 FemtoLite r_[SI_Volume_Units] Normal PMV d ELIZABETH ([facility]) Note: Responsible Observer: MPV MPV 100 .1100 (B) Immature granulocytes [Presence] in Blood by Automated count See No te Normal Imm Granulocytes Bld Ql Auto ELIZABETH ([facility]) Note: [id number] Ob sql server developer: IG% IG% 100.1375 (B) Hematocrit [Volume Fraction] of Blood by Automated count 44.4 perce nt Normal Hct VFr Bld Auto ELIZABETH ([facility]) Note: Responsible Observer: HEMATOCRIT H EMATOCRIT 100.0500 (B) Erythrocyte mean corpuscular hemoglobin concentration [Mass/volume] in Cord blood 33.1 GramsPerDeciLiter_[Mass_Concentration_Units] Normal MCHC BldCo-mCnc MODE ([facility]) Note: Responsible Observer: MCHC MCHC 1 00.0800 (B) Immature granulocytes [#/volume] in Blood by Automated count 0.1 Un it Imm Granulocytes # d Auto MODE ([facility]) Note: Responsible Observer: IG# IG# 100 .1400 (B) Monocytes/100 leukocytes in Blood by Automated count 1.2 percent Below low normal Monocytes/leuk NFr Bld Auto ELIZABETH ([facility]) Note: Responsible Observer: MONO % MONO % 100.1225 (B) Hemoglobin [Moles/volume] in Blood 14.7 GramsPerDeciLiter_[Mass_Concentration_Units] Normal Hgb Bld-sCnc MODE ([facility]) Note: Responsible Observer: HGB HEMOGLOB IN 100.0400 (B) Leukocytes [#/volume] in Blood by Automated count 14.6 ThousandsPerMicroLiter_[Number_Concentration_Units] Above hi gh normal WBC # d Auto ELIZABETH ([facility]) Note: Responsible Observer: WBC WHITE BL OOD COUNT 100.0100 (E) Basophils [#/volume] in Blood by Automated count 0.0 Unit Normal Basophils # d Auto ELIZABETH ([facility]) Note: Responsible Observer: BASO # BASO# 100.1350 (B) Basophils/100 leukocytes in Blood by Automated count 0.1 percent Below low normal Basophils/leuk NFr Bld Auto ELIZABETH ([facility]) Note: Responsible Observer: BASO % BASO % 100.1325 (B) Eosinophils [#/volume] in Blood by Automated count 0.0 Unit Normal Eosinophil # Bld Auto ELIZABETH ([facility]) Note: Responsible Observer: EOS # EOS# 100.1300 (D) Eosinophils/100 leukocytes in Blood by Automated count 0.0 percent Normal Eosinophil/leuk NFr Bld Auto ELIZABETH ([facility]) Note: Responsible Observer: EOS % EOS % 100.1275 (B) Lymphocytes [#/volume] in Blood by Automated count 0.6 Unit Normal Lymphocytes # Bld Auto ELIZABETH ([facility]) Note: Responsible Observer: LYMPH # LYMP H# 100.1200 (B) Lymphocytes/100 leukocytes in Blood by Automated count 4.2 perce nt Below low normal Lymphocytes/leuk NFr Bld Auto ELIZABETH ([facility]) Note: Responsible Observer: LYMPH % LYMP H % 100.1175 (B) Monocytes [#/volume] in Blood by Automated count 0.2 Unit Normal Monocytes # Bld Auto ELIZABETH ([facility]) Note: Responsible Observer: MONO # MONO# 100.1250 (C) Neutrophils [#/volume] in Blood by Automated count 13.8 Unit Above high normal Neutrophils # Bld Auto ELIZABETH ([facility] ) Note: Responsible Observer: NEUT# NEUT# 100.1150 (B) Neutrophils/100 leukocytes in Blood by Automated count 94.0 perc ent Above high normal Neutrophils/leuk NFr Bld Auto ELIZABETH ([facility]) Note: @PERFORM SLIDE SCAN IF NOT AGREE M AN DIFF@DOCUMENT SLIDE SCAN COMMENTResponsible Observer: NEUT% NEUT% 100.1125 (B) Platelets [#/volume] in Blood by Automated count 235 ThousandsPerMicroLiter_[Number_Concentration_Units] Normal Platelet # Bld Auto ELIZABETH ([facility]) Note: Responsible Observer: PLATELET COU NT PLATELET COUNT 100.1000 (D) Erythrocyte mean corpuscular hemoglobin [Entitic mass] by Automated count 30.3 PicoGram_[SI_Mass_Units] Normal MCH RBC Qn Auto JEMIMAWA Y ([facility]) Note: Responsible Observer: MCH MCH 100 .0700 (B) Erythrocytes [#/volume] in Blood by Automated count 4. 85 MillionsPerMicroLiter_[Number_Concentration_Units] Normal RBC # Bld Auto ELIZABETH ([facility]) Note: Responsible Observer: RBC Red Bloo d Count 100.0300 (B) NUCLEATED RED BLOOD CELL# 0 Unit NUCLEATED RED BLOOD CELL# ELIZABETH ([facility]) Note: Responsible Observer: NRBC# NUCLEA SABRINA RBC 100.1362 (A) NUCLEATED RED BLOOD CELL 0 percent NUCLEATED R ED BLOOD CELL ELIZABETH ([facility]) Note: Responsible Observer: NRBC% NRBC% 100.1360 (B) Notes [TIMP] See Note NOTES ELIZABETH ([facility]) Note: @04/12/20 0729: MANUAL DIFF added. RFLXG = DIFF. ID Date Data Source [id number] 04/12/2020 12:34:00 AM [facility] @ RYAN DATE was changed from 04/12/20 to 04/11/20@ by SHEEBA. Old specimen was [id number]. Name Value Range Interpretation Code Description Data Shelly rce(s) Supporting Document(s) Troponin I.cardiac [Mass/volume] in Serum or Plasma Less Than 0.015 0.00-0.09 [facility] Less than 0.09 NG/ML Negative0.10 - 0.77 NG/ML High Risk0.78 NG/ML or Greater PositiveThe WHO defined the cutoff (definition for diagnosis of MN)for this method as 0.78 ng/ml. ID Date Data Source [id number] 04/11/2020 10:42:00 PM [facility] @04/11/20 1840: 4hr Lactic Acid added. R FLXG = RFX LACTIC. Name Value Range Interpretation Code Description Data Shelly rce(s) Supporting Document(s) Lactate [Mass/volume] in Serum or Plasma 1.7 mmol/L 0.5-2.2 [facility] A HIGH RESULT ON THIS 4HR LACTIC ACID WI LL NOT REFLEXANOTHER - YOU MUST ORDER ONE IF YOU WANT IT REPEATED ID Date Data Source [id number] 04/11/2020 10:10:00 PM EDT MODE ([facility]) Name Value Range Interpretation Code Description Data Shelly rce(s) Supporting Document(s) Reported Physicians See Note Reported Teri karoline MODE ([facility]) Note: Reported Physicians:Ordering: Kian ArguelloAttending: Jeremiah, VikramAdmitting: Jeremiah, VikramCopy To: Esha Talamantes ID Date Data Source [id number] 04/11/2020 10:10:00 PM EDT MODE ([facility]) Name Value Range Interpretation Code Description Data Shelly rce(s) Supporting Document(s) Lactate [Mass/volume] in Serum or Plasma 1.7 MilliMolesPerLiter_[Substance_Concentration_Units] Normal Lactate [facility]) Note: A HIGH RESULT ON THIS 4HR LACTIC A PIPO WILL NOT REFLEXANOTHER - YOU MUST ORDER ONE IF YOU WANT IT REPEATEDResponsible Observer: 4HR LACTIC RPT 4HR LACTIC ACID 400.2840 (G) Notes [TIMP] See Note NOTES MODE ([facility]) Note: @04/11/20 1840: 4hr Lactic Acid ad ded. RFLXG = RFX LACTIC. ID Date Data Source [id number] 04/11/2020 10:10:00 PM EDT MODE ([facility]) Name Value Range Interpretation Code Description Data Shelly rce(s) Supporting Document(s) Reported Physicians See Note Reported [facility] ([facility]) Note: Reported Physicians:Ordering: Marly Ferrarattending: Jeremiah, VikramAdmitting: Jeremiah, VikramCopy To: Jeremiah VikramCopy To: Esha Talamantes ID Date Data Source [id number] 04/11/2020 10:10:00 PM EDT MODE ([facility]) Name Value Range Interpretation Code Description Data Shelly rce(s) Supporting Document(s) Troponin I.cardiac [Mass/volume] in Serum or Plasma Less Than 0.015 Normal Troponin I [facility] ([facility]) Note: Less than 0.09 NG/ML Negative 0.10 - 0.77 NG/ML High Risk0.78 NG/ML or Greater PositiveThe WHO defined the cutoff (definition for diagnosis of MN)for this method as 0.78 ng/ml.Responsible Observer: Troponin I Troponin I 600.1101 (G) Notes [TIMP] See Note NOTES ELIZABETH ([facility]) Note: @ RYAN DATE was changed from 04/12 to 04/11/20@ by SHEEBA. Old specimen was [id number]. ID Date Data Source [id number] 04/11/2020 10:05:00 PM EDT [facility] VAUGHN COVID-19 IS AN ISOTHERMAL NA A TECHNOLOGYNORMAL VALUE IS "SARS-COV-2 COVID 19 NOT DETECTED"False negative results may occur if a specimen is improperlycollected,transported or handled.False negative results may also occur if amplicationinhibitors are present in the specimen or if inadequatelevels of viruses are present in the specimen.As with any molecular test, if the virus mutates in [facility], Covid-19 may not be detected or may bedetected less predictably.ID NOW COVID-19 is intended for testing a swab directlywithout elution in viral transport media as dilution willresult in decreased detection of low positive samples thatare near the limit of detection of the test.SWAB SAMPLES ELUTED IN VTM ARE NOT APPROPRIATE FOR USE INTHIS TEST.No Organisms Detected Name Value Range Interpretation Code Description Data Shelly rce(s) Supporting Document(s) ID Date Data Source [id number] 04/11/2020 09:30:00 PM EDT MODE ([facility]) Name Value Range Interpretation Code Description Data Shelly rce(s) Supporting Document(s) Reported Physicians See Note Reported Physici karoline JOHNSON ([facility]) Note: Reported Physicians:Ordering: Kian ArguelloAttending: John De Souzaitting: Pete De Souza To: Esha Talamantes ID Date Data Source [id number] 04/11/2020 09:30:00 PM EDT MODE ([facility]) Name Value Range Interpretation Code Description Data Shelly rce(s) Supporting Document(s) VAUGHN COVID-19 SCHOOL See Note VAUGHN COVID- 19 S[employer]OL MODE ([facility]) Note: VAUGHN COVID-19 IS AN ISOTHER MAL KRISTEN TECHNOLOGYNORMAL VALUE IS "SARS-COV-2 COVID 19 NOT DETECTED"False negative results may occur if a specimen is improperlycollected,transported or handled.False negative results may also occur if amplicationinhibitors are present in the specimen or if inadequatelevels of viruses are present in the specimen.As with any molecular test, if the virus mutates in [facility] region, Covid-19 may not be detected or may bedetected less predictably.ID NOW COVID-19 is intended for testing a swab directlywithout elution in viral transport media as dilution willresult in decreased detection of low positive samples thatare near the limit of detection of the test.SWAB SAMPLES ELUTED IN VTM ARE NOT APPROPRIATE FOR USE INTHIS TEST.NOSNo Organisms [id number] Organisms Detected ID Date Data Source [id number] 04/11/2020 09:17:00 PM EDT [facility] Name: TOLU RATLIFF : 1955 Age: 64 MR#: [id number] Admit Date: 04/11/20 Provider: Leonardo Alonso Room #: 295 Consulting Provider: Dictation Date: 04/11/20 History Physical HPI Date of service Date of service:: 04/11/20 History of Present Illness Nurse screening for coronavirus: Recent Travel outside the country (where) Has patient experienced No coronavirus symptoms Emergency Room stated complaint: Chest pain Primary (Admitting) Diagnosis: COPD exacerbation Source of information: Patient Place Event/Injury Occurred: Reports home HPI Free Text/Narrative:: Pleasant 64-year-old white male was history of diabetes mellitus, hypertension, COPD, hypercholesterolemia, atrial fibrillation, tobacco abuse, reports having right-sided chest pain that started yesterday around noon, the pain radiates to the back, intermittent, graded as 7-9/10, the pain is nonexertional, associated with shortness of breath. The pain improvedin the ER by the respiratory treatment and Solu-Medrol. (The patient also had a complaint of floaters of his right eye that began 2-3 days ago) The patient denies fever, headache, lightheadedness, palpitation, nausea, vomiting, sweating, abdominal pain, diarrhea, constipation, dysuria, increasing frequency or urgency of urination. The patient reported that he was diagnosed with atrial fibrillation since he was 30 years old and [facility]ology in [place]. He reported being replaced before on anticoagulation and that he is in sinus rhythm for more than 7 years now and he is not on any anticoagulation except aspirin and does not take any medicine like beta-jojo or others to regulate her heart rate. The work-up in the ER reveals hypoxia oxygen saturation 93% the drops to 88% with ambulation on roomair, and tachycardia, no fever. Labs including troponin are all unremarkable except for glucose 150. Lactic acid is on the upper normal level 2.1. No leukocytosis. Urinalysis is normal. The patient complained of right eye vision disturbance CT scan of the head was done which came back negative for any acute findings IMPRESSION: No acute intracranial abnormalities. No evidence of intracranial bleed or stroke. Chronic white matter changes likely reflecting small vessel disease. CTA to rule out PE was done and is negative for PE IMPRESSION: 1. There is no evidence for pulmonary embolism in the main or segmental pulmonary arteries. 2. There is a 40 x 23 mm irregular shaped mass versus scarring within the right upper lobe. A follow-up FDG PET/CT may be helpful. 3. There is significant emphysematous changes seen throughout the lungs 4. There is a small right pleural effusion 5. There is a 6.3 mm nodule within the right lower lobe Chest x-ray: Impression: Areas of pulmonary fibrosis in a patient with COPD. Calcified granuloma in the right. Prior cervicothoracic f ixation surgery. No definite acute abnormality. EKG: Normal sinus rhythm. Past History: Medical: Atrial fibrillation COPD (chronic obstructive pulmonary disease) High cholesterol DM Surgical: Cataract extraction with lense insertion, cervical spine surgery Social History: Smokes cigarettes daily (reports one pack per week), drinks alcohol almost daily (one to 3 drinks daily, reports drinking 18 drinks per week), Smokes Marijuana occasionally, denies other illicit drug use. Family History: Father due to MN at age 7979 year old, he had HTN also. Mother: at age 89-year-old due to ruptured brain vascular aneurysm. She had history of emphysema. One sister has history of A. fib. CODE STATUS: full code Allergies/Home Meds Allergies Allergy/AdvReac Type Severity Reaction Status Date / Time shellfish derived Allergy Verified 04/11/20 23:14 Home Medications Medication Instructions Recorded Confirmed Last Taken Type albuterol sulfate [ProAir HFA] 2 puff INHALATION PRN PRN 04/11/20 04/11/20 04/11/20 15:00 History aspirin 81 mg PO DAILY 04/11/20 04/11/20 04/11/20 History atorvastatin 20 mg PO DAILY 04/11/20 04/11/20 04/11/20 History budesonide- formoterol [Symbicort] 2 puff INHALATION BID 04/11/20 04/11/20 04/11/20 History metformin 500 mg PO DAILY 04/11/20 04/11/20 04/11/20 History qnpbyuiejcix-aeqltgak-yovgwx 1 tab PO DAILY 04/11/20 04/11/20 04/11/20 History [Centrum Silver] PFSH Medical History Atrial fibrillation COPD (chronic obstructive pulmonary disease) High cholesterol Pre-diabetes Surgical History Hx of cataract surgery Hx of spinal surgery Social History Does the Patient have a Healthcare Proxy: Yes Does Patient have a DNR?: No Does Patient have a Living Will?: Yes Hx Recent Travel (where): No Smoking Status: Current some day smoker Sickle cell Sickle Cell Screening:: Not indicated ROS Const All systems reviewed are unremarkable except as noted in HPI and below Details: All 10 points of ROS are reviewed, they are all negative except what is reported in the HPI. Vital Signs and I O Vitals and I O: Vital Signs last 12 hours Temp Pulse Resp BP Pulse Ox 04/11/20 19:30 94 16 95 04/11/20 19:20 91 16 91 L 04/11/20 19:00 91 18 99 04/11/20 18:50 89 18 94 L 04/11/20 18:15 18 95 04/11/20 18:05 94 18 94 L 04/11/20 17:32 97.3 F L 100 22 176/93 95 Intake Output Last 24 Hours 04/09/20 04/10/2020 23:59 23:59 23:59 Current Weight 195 lb Height,Weight BMI: Ht Wt BMI Current Height 5 ft 11 in Current Weight 195 lb Results Results: 04/11/20 17:55 04/11/20 17:55 Laboratory Results Last 24 hours 04/11/20 17:55: Magnesium 2.3 04/11/20 17:55: WBC 10.4, RBC 5.03, Hgb 15.5, Hct 46.2, MCV 91.8, MCH 30.8, MCHC 33.5, RDW 12, Plt Count 243, MPV 9.3, Immature Gran % (Auto) 0.3, Neut % (Auto) 68.7, Lymph % (Auto) 20.9, [place] % (Auto) 8.4, Eos % (Auto) 1.2, Baso % (Auto) 0.5, Lymph # (Auto) 2.2, Abs Immat Gran (auto) 0.0, Add Manual Diff No, Absolute Neutrophils 7.2, Monocytes # 0.9, Absolute Eosinophils 0.1, Absolute Basophils 0.1 04/11/20 17:55: Sodium 138, Potassium 3.9, Chloride 103, Carbon Dioxide 26, Anion Gap 13, BUN 17, Creatinine 1.0, GFR Calculation Greater than 60, Glucose 150 H, Calcium 9.4, Total Bilirubin 0.8, AST 15, ALT 33, Alkaline Phosphatase 60, Troponin I Less than 0.015, Serum Total Protein 8.0, Albumin 3.8 04/11/20 17:55: Lactic Acid 2.1 04/11/20 17:55: Creatine Kinase 158, CK-MB (CK-2) 3.8, CK-MB (CK-2) % 2.4 04/11/20 19:59: Urine Color Yellow, Urine Appearance Clear, Urine pH 5.0, Ur Specific [place] 1.010,Urine Protein Negative, Urine Ketones Negative, Urine Blood Negative, Urine Nitrate Negative, Urine Bilirubin Negative, Urine Urobilinogen 0.2 eu/dl, Ur Leukocyte Esterase Negative, Add Ur Microanalysis No, Urine Glucose Negative Exam Const Other: General: Well- nourished, well developed patient Head: Atraumatic, normocephalic, normal inspection Eye: PERRL, EOMI, Absent scleral icterus and conjunctival injection. ENT: Normal inspection, mucous membranes moist. Neck: Normal inspection, full ROM, supple. Absent tenderness and meningismus. Respiratory: Normal respiratory effort. Normal lung sounds bilaterally, absent rhonchi or wheezes. Cardiovascular: regular rate and regular rhythm. GI/Abdominal: Inspection: normal to inspection. Auscultation: normal bowel sounds in all quadrants. Palpation: soft, no guardin g, no hepatosplenomegaly, no masses, no rigidity or tenderness. Extremities exam: normal inspection, full ROM without tenderness, capillary refill brisk, no pedal edema. Neurological: Alert, oriented X3, no neurological deficits. Moves all the 4 extremities, normal speech. Back exam: full ROM, Absent R and L CVA tenderness Psychiatric Exam: Normal affect and normal mood. Skin: warm, dry and intact Assessment/Plan A P Free Text/Narrative :: Impression: COPD exacerbation Chest pain Hypercholesterolemia Diabetes mellitus History of A. fib History of cataract and status post lens insertion 40 times a 23 mm irregularly-shaped mass versus scarring within the right lung upper lobe. 6.3 mm nodule within the right lung lower lobe Right eye floaters Plan: Solu- Medrol, DuoNeb, azithromycin, respiratory consult, oxygen. Hold Metformin for 48 hours as the patient had CT chest with contrast. Continue aspirin from home medications. Accu-Cheks and short acting insulin AC at bedtime for his diabetes Continue atorvastatin for his hypercholesterolemia from his home meds. The patient will need outpatient follow-up FDG PET/CT would be helpful for follow-up of his right lung mass that showed on the CT and the right lung nodule too. The patient needs to follow up with [facility] as regard to his DM that might affect his retina. GI stress peptic ulcer prophylaxis: Pepcid DVT prophylaxis: Anticoagulation will be indicated for prolonged admission. I counseled TOLU Anil HAWKKASHIA on the dangers of tobacco use for at least 3 minutes. Then TOLU was advised to quit tobacco use altogether. I reviewed the various strategies to maximize success with TOLU. These include removing cigarettes and smoking materials from the environment. I also reviewed stress management and support of family/friends. I advised the TOLU of the various healthrisks of smoking as well as its financial impact. I also counseled the patient about alcohol that he should not exceed 2 drinks within any 24 hours, as it can raise his blood cholesterol, disturb his blood sugar and cause other problems on the long run either to the heart or liver. Time spent [address] De oSuza Care plan: Plan of care discussed with patient and or family, Patient encouraged to ask questions about plan and Patient agrees with plan of care Dictated by: <Electronically signed by Leonardo AVINA> Leonardo AVINA 04/12/20 0643 Leonardo Alonso SIGNATURE DA Report Cosigners: <<Signature on File>> Honorio De Souza MD 04/12/20712 <Electronically signed by Honorio De Souza MD> Honorio De Souza MD 04/12/20712 D: ALBIB 04/11/202116 T: ALBIB 04/11/202116 CC: Name Value Range Interpretation Code Description Data Shelly rce(s) Supporting Document(s) ID Date Data Source [id number] 04/11/2020 08:56:00 PM EDT [facility] [address] [place] [address] [phone] NAME SEX PT STATUS ACCOUNT NUMBER TOLU RATLIFF [facility] ER [id number] ORDERING PHYSICIAN LOCATION MEDICAL RECORD NO. Scott Mei MD ER [id number] ATTENDING PHYSICIAN DATE OF DATE OF EXAM/TIME Esha Talamantes MD 1955 04/11/202043 TYPE / EXAM CTA Chest non-card W/ or w/o REASON FOR EXAM R sided chest pain Clinical History/Indication for Exam: R sided chest pain CT ANGIOGRAPHY CHEST WITHOUT AND WITH INTRAVENOUS CONTRAST INDICATION: Right sided chest pain TECHNIQUE: Axial computed tomographic angiography images of the chest without and with intravenous contrast. This CT exam was performed using one or more of the following dose reduction techniques: automated exposure control, adjustment of the mA and/or kV according to patient size, and/or use of iterative reconstruction technique. MIP reconstructed images were created and reviewed. COMPARISON: Chest x-ray dated 04/11/2020 FINDINGS: Pulmonary art eries: There is no evidence for pulmonary embolism in the main or segmental pulmonary arteries. Aorta: No acute findings. No thoracic aortic aneurysm. Lungs: There is a 40 x 23 mm irregular shaped mass versus scarring within the right upper lobe. A follow-up FDG PET/CT may be helpful. There is significant emphysematous changes seen throughout the lungs There is a 6.3 mm nodule within the right lower lobe Pleural space: There is a small right pleural effusion No pneumothorax. Heart: Unremarkable. No cardiomegaly. No significant pericardial effusion. No evidence of RV dysfunction. Bones/joints: No acute fracture. No dislocation. Soft tissues: Unremarkable. Lymph nodes: Unremarkable. No enlarged lymph nodes. IMPRESSION: 1. There is no evidence for pulmonary embolism in the main or segmental pulmonary arteries. 2. There is a 40 x 23 mm irregular shaped mass versus scarring within the right upper lobe. A follow-up FDG PET/ CT may be helpful. 3. There is significant emphysematous changes seen throughout the lungs 4. There is a small right pleural effusion 5. There is a 6.3 mm nodule within the right lower lobe Automatic exposure control was used as a dose lowering technique. Radiation Dose: CTDI is 34.98 mGy. DLP is 407 mGy-cm. Contrast Type: isovue 370. Contrast Volume: 75cc REPORT SIGNATURE ON FILE 04/11/2020 (20:56 Eastern Time ) Signed by: Rohit Kay M.D. Reported By Rohit Kay MD on 04/11/202055 Signed By Rohit Kay MD on 04/11/202055 Date Time CC: Esha Talamantes M.D.; Rohit Kay MD Techn: SHOLA Trans Dt/Tm: Trans by: DT Prt Dt/Tm: [id number]: Total DLP = 407.00 mGy-cm 9156-7246: Total Radiation Dose = 2.4013 mSv Lifetime Dose: 4.5186 mSv Name Value Range Interpretation Code Description Data Shelly rce(s) Supporting Document(s) ID Date Data Source [id number] 04/11/2020 08:08:00 PM EDT [facility] Reason for ordering culture: Abnormal fi ndings UAMethod of Collection:: Voided Name Value Range Interpretation Code Description Data Shelly rce(s) Supporting Document(s) Color of Urine [facility] Appearance of Urine CLEAR [facility] pH of Urine by Test strip 5.0 5-8 [facility] Specific gravity of Urine by Refractometry 1.010 1.005-1.030 [facility] Leukocyte esterase [Presence] in Urine by Test strip NEGAT ELVIA [facility] Nitrite [Presence] in Urine by Test strip NEGATIVE [facility] Protein [Presence] in Urine by Test strip NEGATIVE [facility] Glucose [Mass/volume] in Urine by Automated test strip NEGATIVE NEG ATIVE [facility] Ketones [Presence] in Urine by Test strip NEGATIVE [facility] Urobilinogen [Presence] in Urine 0.2-1 EU/dl [facility] Bilirubin.total [Presence] in Urine by Automated test strip NEGATIVE [facility] Erythrocytes [#/volume] in Urine by Test strip NEGATIVE NEGATIVE [facility] URINE MICROSCOPIC? (CIF) NO [facility] ID Date Data Source [id number] 04/11/2020 07:59:00 PM EDT MODE ([facility]) Name Value Range Interpretation Code Description Data Shelly rce(s) Supporting Document(s) Reported Physicians See Note Reported Physici ans MODE ([facility]) Note: Reported Physicians:Ordering: Kian ArguelloAttending: Talita Cannon To: Esha Talamantes ID Date Data Source [id number] 04/11/2020 07:59:00 PM EDT MODE ([facility]) Name Value Range Interpretation Code Description Data Shelly rce(s) Supporting Document(s) Urobilinogen [Presence] in Urine See Note Uro bilinogen Ur Ql MODE ([facility]) Note: 0.2 EU/dl0.2 [id number] E U/dlResponsible Observer: UROBILINOGEN UROBILINOGEN 300.4500 (C) Erythrocytes [#/volume] in Urine by Test strip NEGATIVE RBC # Ur Strip MODE ([facility]) Note: Responsible Observer: BLOOD BLOOD 300.4652 (C) Protein [Presence] in Urine by Test strip See Note Prot Ur Ql Strip ELIZABETH ([facility]) Note: [id number] EResponsible Observer: PROTEIN PROTEIN 300.3750 (C) Ketones [Presence] in Urine by Test strip See Note Ketones Ur Ql Strip ELIZABETH ([facility]) Note: [id number] EResponsible Observer: KETONE KETONE 300.3900 (C) Bilirubin.total [Presence] in Urine by Automated test strip See Not e Bilirub Ur Ql Strip.auto ELIZABETH ([facility]) Note: [id number] EResponsible Observer: BILIRUBIN BILIRUBIN 300.4550 (C) Glucose [Mass/volume] in Urine by Automated test strip NEGATIVE Glucose Ur Strip.auto-mCnc MODE ([facility]) Note: Responsible Observer: GLUCOSE GLUC OSE 300.3850 (C) Appearance of Urine See Note [facility] Note: CLEARCLEARLCLEARResponsible Observ er: APPEARANCE APPEARANCE 300.3400 (A) Color of Urine See Note Color Ur ELIZABETH ([facility] [place]) Note: YELLOWYELLOWLYELLOWResponsible Obs erver: COLOR COLOR 300.3330 (A) Leukocyte esterase [Presence] in Urine by Test strip See Note Leukocyte esterase Ur Ql Strip ELIZABETH ([facility]) Note: [id number] EResponsible Observer: LEUKOCYTES LEUKOCYTES 300.3576 (C) Nitrite [Presence] in Urine by Test strip See Note Nitrite Ur Ql Strip ELIZABETH ([facility]) Note: [id number] EResponsible Observer: NITRITE NITRITE 300.3652 (B) pH of Urine by Test strip 5.0 pH Ur Stri p MODE ([facility]) Note: Responsible Observer: PH PH 300.3 450 (C) Specific gravity of Urine by Refractometry 1.010 Sp Gr Ur Refractometry MODE ([facility]) Note: Responsible Observer: SP GRAVITY U RINE SPECIFIC GRAVITY-MAN 300.3475 (C) URINE MICROSCOPIC? (CIF) NO URINE MICRO SCOPIC? (CIF) ELIZABETH ([facility]) Note: Responsible Observer: UA URINE KEENAN ROSCOPIC PENDING 300.4665 (D) Notes [TIMP] See Note NOTES ELIZABETH ([facility]) Note: Reason for ordering culture: Abnor mal findings UAMethod of Collection:: Voided ID Date Data Source [id number] 04/11/2020 07:16:00 PM EDT [facility] [address] [place] [address] [phone] NAME SEX PT STATUS ACCOUNT NUMBER Tolu Ratliff AMEYA ER [id number] ORDERING PHYSICIAN LOCATION MEDICAL RECORD NO. Kian Cannon MD ER [id number] ATTENDING PHYSICIAN DATE OF DATE OF EXAM/TIME 1955 04/11/201733 TYPE / EXAM CT Head without contrast REASON FOR EXAM right eye vision disturbance Clinical History/Indication for Exam: right eye vision disturbance CT HEAD WITHOUT INTRAVENOUS CONTRAST INDICATION: right eye vision disturbance TECHNIQUE: Axial computed tomography images of the head/brain without in travenous contrast. Sagittal and coronal reformatted images were created and reviewed. This CT exam was performed using one or more of the following dose reduction techniques: automated exposure control, adjustment of the mA and/or kV according to patient size, and/or use of iterative reconstruction technique. COMPARISON: No relevant prior studies available. FINDINGS: Brain: Appropriate cerebral volume for age. Multifocal periventricular and subcortical white matter hypodensities are seen predominantly in the frontal lobes. No evidence of stroke. No hemorrhage. No significant white matter disease. No edema. Ventricles: No evidence of hydrocephalus. Age- appropriate appearance of the ventricles. Bones/joints: Unremarkable. No acute fracture. Soft tissues: Unremarkable. Sinuses: Unremarkable as visualized. No acute sinusitis. Mastoid air cells: Unremarkable as visualized. No mastoid effusion. Orbits: Unremarkable as visualized. IMPRESSION: No acute intracranial abnormalities. No evidence of intracranial bleed or stroke. Chronic white matter changes likely reflecting small vessel disease. Automatic exposure control was used as a dose lowering technique. Radiation Dose: CTDI is 38.2 mGy. DLP is 683 mGy-cm. REPORT SIGNATURE ON FILE 04/11/2020 (19:16 Eastern Time ) Signed by: Caleb Calderon M.D. Reported By Caleb Calderon MD on 04/11/201915 Signed By Caleb Calderon MD on 04/11/201915 Date Time CC: Caleb Calderon MD; Esha Talamantes M.D. Techn: EBEBR Trans Dt/Tm: Trans by: DT Prt Dt/Tm: 6476-2202: Total DLP = 683.00 mGy-cm 2255-0931: Total Radiation Dose = 2.1173 mSv Lifetime Dose: 2.1173 mSv Name Value Range Interpretation Code Description Data Shelyl rce(s) Supporting Document(s) ID Date Data Source [id number] 04/11/2020 06:34:00 PM EDT [facility] [address] [place] [address] [phone] NAME SEX PT STATUS ACCOUNT NUMBER Tolu Ratliff [facility] ER [id number] ORDERING PHYSICIAN LOCATION MEDICAL RECORD NO. Kian Cannon MD ER [id number] ATTENDING PHYSICIAN DATE OF DATE OF EXAM/TIME 1955 04/11/20 / 1733 TYPE / EXAM Xray Chest 2 view PA/LAT REASON FOR EXAM cough Clinical History/Indication for Exam: cough Frontal chest. History of cough. The heart is normal in size. Some parenchymal scarring changes are noted in the peripheral lungs. A calcified granuloma is noted laterally at the right base. No effusions are seen. Patient has undergone fixation surgery in the lower C-spine. Impression: Areas of pulmonary fibrosis in a patient with COPD. Calcified granuloma in the right. Prior cervicothoracic fixation surgery. No definite acute abnormality. REPORT SIGNATURE ON FILE 04/11/2020 (18:34 Eastern Time ) Signed by: Clarence Parker M.D. Reported By Zena Parker MD on 04/11/201833 Signed By Clarence Parker MD on 04/11/201833 Date Time CC: Esha Talamantes M.D.; Clarence Parker MD Techn: EBEBR Trans Dt/Tm: Trans by: DT Prt Dt/Tm: 2758-0546: Total DLP = 0.00 mGy-cm Fluoroscopy Time (in secs): Name Value Range Interpretation Code Description Data Shelly rce(s) Supporting Document(s) ID Date Data Source [id number] 04/11/2020 06:40:00 PM [facility] Special Instructions: Lab may order repe at test if initial test elevatedPhysician If elevated, reflex second test in 4-6 hrs Name Value Range Interpretation Code Description Data Shelly rce(s) Supporting Document(s) Lactic w Rfx (if elevated) 2.1 mmol/L 0.5-2.2 N [facility] Called to RYAN @ 1835 by Carlos Child. Results readback. ID Date Data Source [id number] 04/16/2020 05:57:00 PM [facility] Special Instructions: Lab may order repe at test if initial test elevatedPhysician If elevated, reflex second test in 4-6 hrs Name Value Range Interpretation Code Description Data Shelly rce(s) Supporting Document(s) Bacteria identified in Blood by Culture [facility] NO GROWTH AFTER 5 DAYS ID Date Data Source [id number] 04/11/2020 11:28:00 PM [facility] Special Instructions: from the last lab sample, otherwise, from the next Name Value Range Interpretation Code Description Data Shelly rce(s) Supporting Document(s) Erythrocyte sedimentation rate by Westergren method 13 mm/hr 0-20 N [facility] @Reenter manual test result: 13@by Tori Schultz at 04/11/20 2328. ID Date Data Source [id number] 04/11/2020 06:00:00 PM [facility] Name Value Range Interpretation Code Description Data Shelly rce(s) Supporting Document(s) Leukocytes [#/volume] in Blood by Automated count 10.4 10*3/uL 4.45-1 0.71 N [facility] Erythrocytes [#/volume] in Blood by Automated count 5.03 10*6/uL 4.3- 6.1 N [facility] Hemoglobin [Moles/volume] in Blood 15.5 g/dL 13-18 N [facility] Hematocrit [Volume Fraction] of Blood by Automated count 46.2 % 4 2-52 N [facility] Erythrocyte mean corpuscular volume [Ent itic volume] in Cord blood by Automated count 91.8 fL 80-96 N [facility] ital Erythrocyte mean corpuscular hemoglobin [Entitic mass] by Automated count 30.8 pg 27-31 N [facility] l Erythrocyte mean corpuscular hemoglobin concentration [Mass/volume] in Cord blood 33.5 g/dL 33-[address] [facility] Erythrocyte distribution width [Entitic volume] by Automated count 12 % 11-15 N [facility] Platelets [#/volume] in Blood by Automated count 243 10*3/uL 130-472 N [facility] Platelet mean volume [Entitic volume] in Blood 9.3 fL 9.1-13.1 N [facility] Neutrophils/100 leukocytes in Blood by Automated count 68.7 % 41- 77 N [facility] Neutrophils [#/volume] in Blood by Automated count 7.2 U 1.7-7.6 N [facility] Lymphocytes/100 leukocytes in Blood by Automated count 20.9 % 14- 46 N [facility] Lymphocytes [#/volume] in Blood by Automated count 2.2 U 0.6-4.6 N [facility] Monocytes/100 leukocytes in Blood by Automated count 8.4 % 4-12 N [facility] Monocytes [#/volume] in Blood by Automated count 0.9 U 0.2-1.2 N [facility] Eosinophils/100 leukocytes in Blood by Automated count 1.2 % 0-7 N [facility] Eosinophils [#/volume] in Blood by Automated count 0.1 U 0.0-0.5 N [facility] Basophils/100 leukocytes in Blood by Automated count 0.5 % 0.4-1 .3 N [facility] Basophils [#/volume] in Blood by Automated count 0.1 U 0.0-0.2 N [facility] NUCLEATED RED BLOOD CELL 0 % [facility] NUCLEATED RED BLOOD CELL# 0 U [facility] Immature granulocytes [Presence] in Blood by Automated count 0-2 N [facility] Immature granulocytes [#/volume] in Blood by Automated count 0.0 U 0-0.1 N [facility] Manual Differential panel - Blood NO [facility] ID Date Data Source [id number] 04/11/2020 06:25:00 PM EDT [facility] Name Value Range Interpretation Code Description Data Shelly rce(s) Supporting Document(s) Urea nitrogen [Mass/volume] in Serum or Plasma 17 mg/dL 9-23 N [facility] Sodium [Moles/volume] in Serum or Plasma 138 mmol/L 132-146 [facility] Potassium [Moles/volume] in Serum or Plasma 3.9 mmol/L 3.5-5.5 [facility] Chloride [Moles/volume] in Serum or Plasma 103 mmol/L 99-109 [facility] Carbon dioxide, total [Moles/volume] in Serum or Plasma 26 mmol/L 20 -31 N [facility] Anion gap in Serum or Plasma 13 mmol/L 8-16 [facility] Glucose [Mass/volume] in Serum or Plasma 150 mg/dL 74-106 Above high normal [facility] Creatinine 1.0 mg/dL 0.5-1.1 [facility] Glomerular filtration rate/1.73 sq M.pre dicted [Volume Rate/Area] in Serum or Plasma Greater Than 60 ABOVE 60 [facility] Alanine aminotransferase [Enzymatic acti vity/volume] in Serum or Plasma by With P-5'-P 33 U/L 10-49 N [facility] ital Aspartate aminotransferase [Enzymatic ac tivity/volume] in Serum or Plasma by With P-5'-P 15 U/L 0-33 N [facility] pital Alkaline phosphatase [Enzymatic activity/volume] in Serum or Plasma 60 U/L 45-129 N [facility] Calcium [Mass/volume] in Serum or Plasma 9.4 mg/dL 8.5-10.1 [facility] Bilirubin.total [Mass/volume] in Serum or Plasma 0.8 mg/dL 0.3-1.2 N [facility] Albumin [Mass/volume] in Serum or Plasma by Bromocresol purple (BCP) dye binding method 3.8 g/dL 3.2-4.8 N [facility] ital Protein [Mass/volume] in Serum or Plasma 8.0 g/dL 5.7-8.2 N [facility] ID Date Data Source [id number] 04/11/2020 06:25:00 PM EDT [facility] Name Value Range Interpretation Code Description Data Shelly rce(s) Supporting Document(s) Troponin I.cardiac [Mass/volume] in Serum or Plasma Less Than 0.015 0.00-0.09 N [facility] Less than 0.09 NG/ML Negative0.10 - 0.77 NG/ML High Risk0.78 NG/ML or Greater PositiveThe WHO defined the cutoff (definition for diagnosis of [place])for this method as 0.78 ng/ml. ID Date Data Source [id number] 04/11/2020 06:24:00 PM EDT [facility] Name Value Range Interpretation Code Description Data Shelly rce(s) Supporting Document(s) Magnesium [Mass/volume] in Serum or Plasma 2.3 mg/dL 1.3-2.7 N [facility] ID Date Data Source [id number] 04/11/2020 06:23:00 PM EDT [facility] Name Value Range Interpretation Code Description Data Shelly rce(s) Supporting Document(s) Creatine kinase [Enzymatic activity/volume] in Serum or Plasma 158 U/L 33-211 N [facility] Creatine kinase.MB [Enzymatic activity/volume] in Serum or P lasma 3.8 ng/mL 0.0-5.0 N [facility] Chemistry studies (set) 2.4 % [facility] ID Date Data Source [id number] 04/11/2020 05:55:00 PM [facility] ([facility]) Name Value Range Interpretation Code Description Data Shelly rce(s) Supporting Document(s) Reported Physicians See Note Reported Physici ans MODE ([facility]) Note: Reported Physicians:Ordering: Kian ArguelloAttending: John De Souzaitting: Pete De Souza To: Esha Talamantes ID Date Data Source [id number] 04/11/2020 05:55:00 PM EDT MODE ([facility]) Name Value Range Interpretation Code Description Data Shelly rce(s) Supporting Document(s) Bacteria identified in Blood by Culture See Note Bacteria Bld Cult MODE ([facility]) Note: NG5DNo growth.[id number] GROWTH AFTE R 5 DAYS ID Date Data Source [id number] 04/11/2020 05:55:00 PM EDT MODE ([facility]) Name Value Range Interpretation Code Description Data Shelly rce(s) Supporting Document(s) Bacteria identified in Blood by Culture See Note Bacteria Bld Cult MODE ([facility]) Note: NG5DNo growth.[id number] GROWTH AFTE R 5 DAYS ID Date Data Source [id number] 04/11/2020 05:55:00 PM EDT MODE ([facility]) Name Value Range Interpretation Code Description Data Shelly rce(s) Supporting Document(s) Lactic w Rfx (if elevated) 2.1 MilliMolesPerLiter_[Substance_Concentration_Units] Normal Lactic w Rfx (if elevated) MODE ([facility]) Note: Called to RYAN @ 8295 by Tori Kenny. Results readback.Responsible Observer: Lactic Acid Lactic Acid 400.2831 (G) Notes [TIMP] See Note NOTES MODE ([facility]) Note: Special Instructions: Lab may orde r repeat test if initial test elevatedPhysician If elevated, reflex second test in 4-6 hrs ID Date Data Source [id number] 04/11/2020 05:55:00 PM EDT MODE ([facility]) Name Value Range Interpretation Code Description Data Shelly rce(s) Supporting Document(s) Reported Physicians See Note Reported Physici ans MODE ([facility]) Note: Reported Physicians:Ordering: Kian ArguelloAttending: Talita Cannon To: Esha Talamantes ID Date Data Source [id number] 04/11/2020 05:55:00 PM EDT MODE ([facility]) Name Value Range Interpretation Code Description Data Shelly rce(s) Supporting Document(s) Alanine aminotransferase [Enzymatic acti vity/volume] in Serum or Plasma by With P-5'-P 33 enzyme_unit_per_liter Normal ALT [facility]' [facility] ([facility]) Note: Responsible Observer: SGPT/ALT SGP T/ALT 400.1750 (G) Calcium [Mass/volume] in Serum or Plasma 9.4 MilliGramsPerDeciLiter_[Mass_Concentration_Units] Normal Calcium [facility] ([facility]) Note: Responsible Observer: Calcium Calc ium 400.2500 (G) Bilirubin.total [Mass/volume] in Serum or Plasma 0.8 MilliGramsPerDeciLiter_[Mass_Concentration_Units] Normal Bilirub [facility] ([facility]) Note: Responsible Observer: T ABDIRAHMAN Total Bilirubin 400.2600 (G) Carbon dioxide, total [Moles/volume] in Serum or Plasm a 26 MilliMolesPerLiter_[Substance_Concentration_Units] Normal CO2 [facility] ([facility]) Note: Responsible Observer: CO2 Carbon D ioxide 400.1400 (G) Chloride [Moles/volume] in Serum or Plasma 103 MilliMolesPerLiter_[Substance_Concentration_Units] Normal Chloride [facility] ([facility]) Note: Responsible Observer: Chloride Chl oride 400.1250 (G) Glucose [Mass/volume] in Serum or Plasma 150 MilliGramsPerDeciLiter_[Mass_Concentration_Units] Above high normal Glucose [facility] ([facility]) Note: Responsible Observer: Glucose Gluc ose 400.1500 (G) Potassium [Moles/volume] in Serum or Plasma 3.9 MilliMolesPerLiter_[Substance_Concentration_Units] Normal Potassium [facility] ([facility]) Note: Responsible Observer: K Potassium 400.1210 (G) Protein [Mass/volume] in Serum or Plasma 8.0 GramsPerDeciLiter_[Mass_Concentration_Units] Normal Pro t [facility] ([facility]) Note: Responsible Observer: TP Total Pro tein 400.2800 (G) Sodium [Moles/volume] in Serum or Plasma 138 MilliMolesPerLiter_[Substance_Concentration_Units] Normal Sodium [facility] ([facility]) Note: Responsible Observer: Sodium Sodiu m 400.1100 (G) Aspartate aminotransferase [Enzymatic ac tivity/volume] in Serum or Plasma by With P-5'-P 15 enzyme_unit_per_liter Normal AST SerP w P-5' -[facility] ([facility]) Note: Responsible Observer: SGOT / AST S GOT / AST 400.1900 (G) Urea nitrogen [Mass/volume] in Serum or Plasma 17 MilliGramsPerDeciLiter_[Mass_Concentration_Units] Normal BUN [facility] ([facility]) Note: Responsible Observer: BUN Blood Ur ea Nitrogen 400.1000 (G) Anion gap in Serum or Plasma 13 MilliMolesPerLiter_[Substance_Concentration_Units] Normal Anion Gap [facility] ([facility]) Note: Responsible Observer: ANION GAP AN ION GAP 400.1402 (E) Albumin [Mass/volume] in Serum or Plasma by Bromocresol purple (BCP) dye binding method 3.8 GramsPerDeciLiter_[Mass_Concentration_Units] Normal Albumin [facility] ([facility]) Note: Responsible Observer: Albumin [place] 400.2700 (G) Alkaline phosphatase [Enzymatic activity/volume] in Se rum or Plasma 60 enzyme_unit_per_liter Normal ALP [facility] ( [facility]) Note: Responsible Observer: ALP Alkaline Phosphatase 400.2000 (G) Glomerular filtration rate/1.73 sq M.pre dicted [Volume Rate/Area] in Serum or Plasma Greater Than 60 [facility]BSA.pred [facility] Note: Responsible Observer: GFR Glomerul ar Filt Rate Calc 400.1605 (D) Creatinine [Moles/volume] in Vitreous fluid 1.0 MilliGramsPerDeciLiter_[Mass_Concentration_Units] Normal Creatinine MODE ([facility]) Note: Responsible Observer: Creatinine C reatinine 400.1600 (G) ID Date Data Source [id number] 04/11/2020 05:55:00 PM EDT ELIZABETH ([facility]) Name Value Range Interpretation Code Description Data Shelly rce(s) Supporting Document(s) Erythrocyte mean corpuscular volume [Ent itic volume] in Cord blood by Automated count 91.8 FemtoLiter_[SI_Volume_Units] Normal MCV Bld Co Auto MODE ([facility]) Note: Responsible Observer: MCV MCV 100 .0600 (B) Erythrocyte distribution width [Entitic volume] by Automated cou nt 12 percent Normal RDW RBC Auto MODE ([facility]) Note: Responsible Observer: RDW RDW 100 .0900 (B) Manual Differential panel - Blood NO Ma nual diff Bld MODE ([facility]) Note: Responsible Observer: CBC Manual D ifferential Added 100.1990 (B) Platelet mean volume [Entitic volume] in Blood 9.3 FemtoLite r_[SI_Volume_Units] Normal PMV Bld ELIZABETH ([facility]) Note: Responsible Observer: MPV MPV 100 .1100 (B) Immature granulocytes [Presence] in Blood by Automated count See No te Normal Imm Granulocytes Bld Ql Auto MODE ([facility]) Note: [id number] Ob sql server developer: IG% IG% 100.1375 (B) Hematocrit [Volume Fraction] of Blood by Automated count 46.2 perce nt Normal Hct VFr Bld Auto MODE ([facility]) Note: Responsible Observer: HEMATOCRIT H EMATOCRIT 100.0500 (B) Erythrocyte mean corpuscular hemoglobin concentration [Mass/volume] in Cord blood 33.5 GramsPerDeciLiter_[Mass_Concentration_Units] Normal MCHC BldCo-mCnc MODE ([facility]) Note: Responsible Observer: MCHC MCHC 1 00.0800 (B) Immature granulocytes [#/volume] in Blood by Automated count 0.0 Un it Imm Granulocytes # Bld Auto ELIZABETH ([facility]) Note: Responsible Observer: IG# IG# 100 .1400 (B) Monocytes/100 leukocytes in Blood by Automated count 8.4 percent Normal Monocytes/leuk NFr Bld Auto ELIZABETH ([facility]) Note: Responsible Observer: MONO % MONO % 100.1225 (B) Hemoglobin [Moles/volume] in Blood 15.5 GramsPerDeciLiter_[Mass_Concentration_Units] Normal Hgb Bld-sCnc ELIZABETH ([facility]) Note: Responsible Observer: HGB HEMOGLOB IN 100.0400 (B) Leukocytes [#/volume] in Blood by Automated count 10.4 ThousandsPerMicroLiter_[Number_Concentration_Units] Normal WBC # Bld Auto ELIZABETH ([facility]) Note: Responsible Observer: WBC WHITE BL OOD COUNT 100.0100 (E) Basophils [#/volume] in Blood by Automated count 0.1 Unit Normal Basophils # Bld Auto ELIZABETH ([facility]) Note: Responsible Observer: BASO # BASO# 100.1350 (B) Basophils/100 leukocytes in Blood by Automated count 0.5 percent Normal Basophils/leuk NFr Bld Auto ELIZABETH ([facility]) Note: Responsible Observer: BASO % BASO % 100.1325 (B) Eosinophils [#/volume] in Blood by Automated count 0.1 Unit Normal Eosinophil # Bld Auto ELIZABETH ([facility]) Note: Responsible Observer: EOS # EOS# 100.1300 (D) Eosinophils/100 leukocytes in Blood by Automated count 1.2 percent Normal Eosinophil/leuk NFr Bld Auto ELIZABETH ([facility]) Note: Responsible Observer: EOS % EOS % 100.1275 (B) Lymphocytes [#/volume] in Blood by Automated count 2.2 Unit Normal Lymphocytes # Bld Auto ELIZABETH ([facility]) Note: Responsible Observer: LYMPH # LYMP H# 100.1200 (B) Lymphocytes/100 leukocytes in Blood by Automated count 20.9 percent Normal Lymphocytes/leuk NFr Bld Auto ELIZABETH ([facility]) Note: Responsible Observer: LYMPH % LYMP H % 100.1175 (B) Monocytes [#/volume] in Blood by Automated count 0.9 Unit Normal Monocytes # Bld Auto ELIZABETH ([facility]) Note: Responsible Observer: MONO # MONO# 100.1250 (C) Neutrophils [#/volume] in Blood by Automated count 7.2 Unit Normal Neutrophils # Bld Auto ELIZABETH ([facility]) Note: Responsible Observer: NEUT# NEUT# 100.1150 (B) Neutrophils/100 leukocytes in Blood by Automated count 68.7 percent Normal Neutrophils/leuk NFr Bld Auto MODE ([facility]) Note: Responsible Observer: NEUT% NEUT% 100.1125 (B) Platelets [#/volume] in Blood by Automated count 243 ThousandsPerMicroLiter_[Number_Concentration_Units] Normal Platelet # Bld Auto ELIZABETH ([facility]) Note: Responsible Observer: PLATELET COU NT PLATELET COUNT 100.1000 (D) Erythrocyte mean corpuscular hemoglobin [Entitic mass] by Automated count 30.8 PicoGram_[SI_Mass_Units] Normal MCH RBC Qn Auto LEBURNWA Y ([facility]) Note: Responsible Observer: MCH MCH 100 .0700 (B) Erythrocytes [#/volume] in Blood by Automated count 5. 03 MillionsPerMicroLiter_[Number_Concentration_Units] Normal RBC # Bld Auto MODE ([facility]) Note: Responsible Observer: RBC Red Bloo d Count 100.0300 (B) NUCLEATED RED BLOOD CELL# 0 Unit NUCLEATED RED BLOOD CELL# ELIZABETH ([facility]) Note: Responsible Observer: NRBC# NUCLEA SABRINA RBC 100.1362 (A) NUCLEATED RED BLOOD CELL 0 percent NUCLEATED R ED BLOOD CELL MODE ([facility]) Note: Responsible Observer: NRBC% NRBC% 100.1360 (B) ID Date Data Source [id number] 04/11/2020 05:55:00 PM EDT MODE ([facility]) Name Value Range Interpretation Code Description Data Shelly rce(s) Supporting Document(s) Reported Physicians See Note Reported Physici ans MODE ([facility]) Note: Reported Physicians:Ordering: Kian ArguelloAttending: Talita Cannon To: Esha Talamantes ID Date Data Source [id number] 04/11/2020 05:55:00 PM EDT MODE ([facility]) Name Value Range Interpretation Code Description Data Shelly rce(s) Supporting Document(s) Magnesium [Mass/volume] in Serum or Plasma 2.3 MilliGramsPerDeciLiter_[Mass_Concentration_Units] Normal Magnesium SerPl-nc MODE ([facility]) Note: Responsible Observer: Magnesium Ma gnesium 400.3300 (G) ID Date Data Source [id number] 04/11/2020 05:55:00 PM EDT MODE ([facility]) Name Value Range Interpretation Code Description Data Shelly rce(s) Supporting Document(s) Reported Physicians See Note Reported Physici ans MODE ([facility]) Note: Reported Physicians:Ordering: Marly Ferrarattending: John De Souzaitting: Pete De Souza To: Pete De Souza To: Esha Talamantes ID Date Data Source [id number] 04/11/2020 05:55:00 PM EDT MODE ([facility]) Name Value Range Interpretation Code Description Data Shelly rce(s) Supporting Document(s) Erythrocyte sedimentation rate by Westergren method 13 Normal ESR Bld Qn [facility] ([facility]) Note: @Reenter manual test result: 13@by Tori Child at 04/11/20 2328.Responsible Observer: SED RATE SED RATE 100.6400 (B) Notes [TIMP] See Note NOTES MODE ([facility]) Note: Special Instructions: from the las t lab sample, otherwise, from the next ID Date Data Source [id number] 04/11/2020 05:55:00 PM EDT MODE ([facility]) Name Value Range Interpretation Code Description Data Shelly rce(s) Supporting Document(s) Reported Physicians See Note Reported [facility] ([facility]) Note: Reported Physicians:Ordering: Kian ArguelloAttending: Talita Cannon To: Esha Talamantes ID Date Data Source [id number] 04/11/2020 05:55:00 PM EDT MODE ([facility]) Name Value Range Interpretation Code Description Data Shelly rce(s) Supporting Document(s) Chemistry studies (set) 2.4 percent [facility] Note: Responsible Observer: CK RELATIVE % CK RELATIVE % 600.0055 (A) Creatine kinase [Enzymatic activity/volume] in Serum o r Plasma 158 enzyme_unit_per_liter Normal CK [facility] ( [facility]) Note: Responsible Observer: CK Creatine Kinase 400.9115 (G) Creatine kinase.MB [Enzymatic activity/volume] in Seru m or Plasma 3.8 NanoGramsPerMilliLiter_[Mass_Concentration_Units] Normal CK MB [facility]) Note: Responsible Observer: CKMB Creatin e Kinase MB 600.0050 (G) ID Date Data Source [id number] 04/11/2020 05:55:00 PM [facility] ([facility]) Name Value Range Interpretation Code Description Data Shelly rce(s) Supporting Document(s) Reported Physicians See Note [facility]: Reported Physicians:Ordering: Ember Arguelloending: Talita Cannon To: Esha Talamantes ID Date Data Source [id number] 04/11/2020 05:55:00 PM [facility] ([facility]) Name Value Range Interpretation Code Description Data Shelly rce(s) Supporting Document(s) Troponin I.cardiac [Mass/volume] in Serum or Plasma Less Than 0.015 Normal Troponin I [facility]) Note: Less than 0.09 NG/ML Negative 0.10 - 0.77 NG/ML High Risk0.78 NG/ML or Greater PositiveThe WHO defined the cutoff (definition for diagnosis of [place])for this method as 0.78 ng/ml.Responsible Observer: Troponin I Troponin I 600.1101 (G) ID Date Data Source [id number] 04/11/2020 05:40:00 PM EDT [facility] ED Physician Documentation NAME: TOLU RATLIFF : 1955 AGE: 64 MR#: [id number] SERVICE DATE: 04/11/[address]: Kian Cannon MD PRIMARY CARE DR: Esha Talamantes M.D. ROOM#: [id number] [facility] (Adult, General) <Kian Cannon MD - Last Filed: 04/11/20 18:47> General Chief Complaint: Chest pain Stated Complaint: CHEST HIP PAIN Resident [facility], travel outisde home, exposure to hot tubs:: No Time Seen by Provider: 04/11/20 17:32 Source: patient Exam Limitations: no limitations History of Present Illness Narrative: increasing shortness of breathe and "chest tightness" over thepast week; patient also reports seeing floatera or "squigglies" in his right eye; denies fever, chills or increased cough; denies palpitations, but has a history of artial fibrillation; patient has COPD, but is still smoking History of Present Illness Timing/Duration: [address] Injury/Event Occurred (if applicable): home Past Medical History Past Medical History: Nursing Past Medical History Has Been Reviewed Allergies/Home Meds Allergies Allergy/AdvReac Type Severity Reaction Status Date / Time shellfish derived Allergy Verified 04/11/20 17:47 PMH (from Triage) <Kian Cannon MD - Last Filed: 04/11/20 18:47> Patient Medical History PMH Reviewed/Updated as Needed: Yes PMH/PSH from Triage: Medical History (Updated 04/11/20 @ 17:48 by Zulma Fuentes RN) Atrial fibrillation (Medical) I48.91 COPD (chronic obstructive pulmonary disease) (Medical) J44.9 High cholesterol (Medical) E78.00 Pre-diabetes (Medical) R73.03 Hx Recent Travel Nurse screening for coronavirus: Recent Travel outside the No country (where) Has patient experienced No coronavirus symptoms <Scott Mei MD - Last Filed: 04/11/20 21:10> Patient Medical History PMH/PSH from Triage: Medical History (Updated 04/11/20 @ 17:48 by Zulma Fuentes RN) Atrial fibrillation (Medical) I48.91 COPD (chronic obstructive pulmonary disease) (Medical) J44.9 High cholesterol (Medical) E78.00 Pre-diabetes (Medical) R73.03 Hx Recent Travel Nurse screening for coronavirus: Recent Travel outside the No country (where) Has patient experienced No coronavirus symptoms PFSH <Kian Cannon MD - Last Filed: 10/24/20 18:47> Medical History (Updated 04/11/20 @ 17:48 by Zulma Fuentes RN) Atrial fibrillation COPD (chronic obstructive pulmonary disease) High cholesterol Pre-diabetes Social History Does the Patient have a Healthcare Proxy: Yes Does Patient have a DNR?: Yes Does Patient have a Living Will?: Yes Smoking Status: Current every day smoker ROS <Kian Cannon MD - Last Filed: 04/11/20 18:47> Review of Systems Constitutional: Denies fever, chills, weakness and malaise Eyes: Reports vision change (floating "squigglies" in the right eye) ENT: Denies mouth pain, nasal congestion, post nasal drip, throat pain, throat swelling and constantthroat clearing Respiratory: Reports SOB w/exertion rest; Denies cough Cardiovascular: Reports chest pain (chest "tightness" with deep breathing); Denies palpitations Gastrointestinal: Reports No Symptoms/Complaints Genitourinary-Male: Denies dysuria, frequency and urgency Musculoskeletal: Denies neck pain, arm pain, back pain and hand pain Skin/Breasts: Denies rash, hives and pruritus Neurologic: Denies weakness and headache Physical Exam <Kian Cannon MD - Last Filed: 04/11/20 18:47> General Limitations: no limitations General appearance: alert and in no apparent distress Head Head exam: Present atraumatic, normocephalic and normal inspection Eye Eye exam: Present normal apperance and EOMI ENT ENT exam: Present normal exam, normal orophraynx and mucous membranes moist Neck Neck exam: Present normal inspection, full ROM and supple Respiratory Respiratory exam: Present decreased breath sounds and other (pulse oximeter 93% drops to 88% with ambulation); Absent wheezes and rhonchi Cardiovascular Cardiovascular Exam: Present regular rate and normal rhythm GI/Abdominal GI/Abdominal exam: Present soft; Absent tenderness Extremities Exam Extremities exam: Present normal inspection and full ROM; Absent tenderness Back Exam Back exam: Present normal inspection and full ROM; Absent tenderness Neurological Exam Neurological exam: Present alert, oriented X3, normal gait and other (speech normal) Skin Skin exam: Present warm, dry, intact and normal color Vital S igns Vital Signs: Vital Signs 04/11/20 17:32 04/11/20 18:05 04/11/20 18:15 Temperature 97.3 F L Pulse Rate 100 94 Respiratory Rate 22 18 18 Blood Pressure 176/93 O2 Sat by Pulse Oximetry 95 94 L 95 04/11/20 18:50 04/11/20 19:00 04/11/20 19:20 Temperature Pulse Rate 89 91 91 Respiratory Rate 18 18 16 Blood Pressure O2 Sat by Pulse Oximetry 94 L 99 91 L 04/11/20 19:30 Temperature Pulse Rate 94 Respiratory Rate 16 Blood Pressure O2 Sat by Pulse Oximetry 95 <Scott Mei MD - Last Filed: 04/11/20 21:10> Vital Signs Vital Signs: Vital Signs 04/11/20 17:32 04/11/20 18:05 04/11/20 18:15 Temperature 97.3 F L Pulse Rate 100 94 Respiratory Rate 22 18 18 Blood Pressure 176/93 O2 Sat by Pulse Oximetry 95 94 L 95 04/11/20 18:50 04/11/20 19:00 04/11/20 19:20 Temperature Pulse Rate 89 91 91 Respiratory Rate 18 18 16 Blood Pressure O2 Sat by Pulse Oximetry 94 L 99 91 L 04/11/20 19:30 Temperature Pulse Rate 94 Respiratory Rate 16 Blood Pressure O2 Sat by Pulse Oximetry 95 MDM (comprehensive) <Kian Cannon MD - Last Filed: 04/11/20 18:47> Lab Data Labs: 04/11/20 17:55 04/11/20 17:55 Laboratory Results Last 24 hours 04/11/20 17:55: Magnesium 2.3 04/11/20 17:55: WBC 10.4, RBC 5.03, Hgb 15.5, Hct 46.2, MCV 91.8, MCH 30.8, MCHC 33.5, RDW 12, Plt Count 243, MPV 9.3, Immature Gran % (Auto) 0.3, Neut % (Auto) 68.7, Lymph % (Auto) 20.9, [place] % (Auto) 8.4, Eos % (Auto) 1.2, Baso % (Auto) 0.5, Lymph # (Auto) 2.2, Abs Immat Gran (auto) 0.0, Add Manual Diff No, Absolute Neutrophils 7.2, Monocytes # 0.9, Absolute Eosinophils 0.1, Absolute Basophils 0.1 04/11/20 17:55: Sodium 138, Potassium 3.9, Chloride 103, Carbon Dioxide 26, Anion Gap 13, BUN 17, Creatinine 1.0, GFR Calculation Greater than 60, Glucose 150 H, Calcium 9.4, Total Bilirubin 0.8, AST 15, ALT 33, Alkaline Phosphatase 60, Troponin I Less than 0.015, Serum Total Protein 8.0, Albumin 3.8 04/11/20 1 7:55: Lactic Acid 2.1 04/11/20 17:55: Creatine Kinase 158, CK-MB (CK-2) 3.8, CK-MB (CK-2) % 2.4 04/11/20 19:59: Urine Color Yellow, Urine Appearance Clear, Urine pH 5.0, Ur Specific [place] 1.010,Urine Protein Negative, Urine Ketones Negative, Urine Blood Negative, Urine Nitrate Negative, Urine Bilirubin Negative, Urine Urobilinogen 0.2 eu/dl, Ur Leukocyte Esterase Negative, Add Ur Microanalysis No, Urine Glucose Negative EKG Data EKG shows normal: sinus rhythm Rate: normal EKG Data Interpretation: no acute changes Radiology Data Radiology impressions: CXR: Impression: Areas of pulmonary fibrosis in a patient with COPD. Calcified granuloma in the right. Prior cervicothoracic fixation surgery. No definite acute abnormality. <Scott Mei MD - Last Filed: 04/11/20 21:10> Lab Data Labs: 04/11/20 17:55 04/11/20 17:55 Laboratory Results Last 24 hours 04/11/20 17:55: Magnesium 2.3 04/11/20 17:55: WBC 10.4, RBC 5.03, Hgb 15.5, Hct 46.2, MCV 91.8, MCH 30.8, MCHC 33.5, RDW 12, Plt Count 243, MPV 9.3, Immature Gran % (Auto) 0.3, Neut % (Auto) 68.7, Lymph % (Auto) 20.9, [place] % (Auto) 8.4, Eos % (Auto) 1.2, Baso % (Auto) 0.5, Lymph # (Auto) 2.2, Abs Immat Gran (auto) 0.0, Add Manual Diff No, Absolute Neutrophils 7.2, Monocytes # 0.9, Absolute Eosinophils 0.1, Absolute Basophils 0.1 04/11/20 17:55: Sodium 138, Potassium 3.9, Chloride 103, Carbon Dioxide 26, Anion Gap 13, BUN 17, Creatinine 1.0, GFR Calculation Greater than 60, Glucose 150 H, Calcium 9.4, Total Bilirubin 0.8, AST 15, ALT 33, Alkaline Phosphatase 60, Troponin I Less than 0.015, Serum Total Protein 8.0, Albumin 3.8 04/11/20 1 7:55: Lactic Acid 2.1 04/11/20 17:55: Creatine Kinase 158, CK-MB (CK-2) 3.8, CK-MB (CK-2) % 2.4 04/11/20 19:59: Urine Color Yellow, Urine Appearance Clear, Urine pH 5.0, Ur Specific [place] 1.010,Urine Protein Negative, Urine Ketones Negative, Urine Blood Negative, Urine Nitrate Negative, Urine Bilirubin Negative, Urine Urobilinogen 0.2 eu/dl, Ur Leukocyte Esterase Negative, Add Ur Microanalysis No, Urine Glucose Negative Radiology Data Radiology results: report reviewed Medical Decision Making Free Text/Narative:: Follow-up for this patient with emphysema and R sided chest pain. Low O2 saturation noted after treatment with Duonebs x 3 and Steroids. CTA shows emphysema and R lung scarring but no PE. The patient will be admitted to the medical service for treatment. <Scott Mei MD - Last Filed: 04/11/20 21:10> Plan Plan: Admit to Medical Service Plan of care: Plan of care discussed with patient and or family, Patient encouraged to ask questionsabout plan and Patient agrees with plan of care Discharge Plan Admission/Discharge Dx Primary (Admit) Diagnosis: COPD Exacerbation ED Provider: Kian Cannon ED Status: Sign up Time Seen by Provider: 04/11/20 17:32 Triaged At: 04/11/20 17:32 Condition Condition: Stable Discharge Detail Disposition: Admit to Critical Access [facility] Medications Medication reconciliation performed by provider at discharge: Yes *Discharge Patient* Discharge Orders: Provider hand off (NOW); Ordered 04/11/20 Ordered By: Scott Mei Report Signers: <Electronically signed by Kian Cannon MD> Kian Cannon MD 04/12/20 0742 Kian Cannon MD SIGNATURE DA Report Cosigners: <Electronically signed by Scott Mei MD> Scott Mei MD 04/11/202109 D: TASIA 04/11/201739 T: TASIA 04/11/201739 CC: Esha Talamantes M.D. Name Value Range Interpretation Code Description Data Shelly rce(s) Supporting Document(s) ID Date Data Source [id number] 04/11/2020 12:00:00 AM EDT [facility] Name Value Range Interpretation Code Description Data Shelly rce(s) Supporting Document(s) SARS-CoV2 Rapid PCR [facility] This lab was ordered by [facility] - and reported by [facility]. ID Date Data Source [id number] 08/12/2019 07:48:00 AM EST ELIZABETH ([facility]) Name Value Range Interpretation Code Description Data Shelly rce(s) Supporting Document(s) Reported Physicians See Note Reported Physici ans MODE ([facility]) Note: Reported Physicians:Ordering: Beard e, Esha AAttending: VINITA, JOCELYNConsulting: VINITA, JOCELYNCopy To: Vinita Esha ID Date Data Source [id number] 08/12/2019 07:48:00 AM EST ELIZABETH ([facility]) Name Value Range Interpretation Code Description Data Shelly rce(s) Supporting Document(s) CPK 102 U/L CPK ELIZABETH ([facility]) Note: Responsible Observer: () ID Date Data Source [id number] 08/12/2019 07:48:00 AM EST ELIZABETH ([facility]) Name Value Range Interpretation Code Description Data Shelly rce(s) Supporting Document(s) Reported Physicians See Note Reported Physici ans ELIZABETH ([facility]) Note: Reported Physicians:Ordering: Beard e, Esha AAttending: VINITA, JOCELYNConsulting: VINITA, JOCELYNCopy To: Vinita, Esha ID Date Data Source [id number] 08/12/2019 07:48:00 AM EST ELIZABETH ([facility]) Name Value Range Interpretation Code Description Data Shelly rce(s) Supporting Document(s) A/G RATIO 1.7 A/G RATIO MODE ([facility]) Note: Responsible Observer: () AFR AMER GFR >60 mL/min AFR AMER GFR MODE ([facility]) Note: Male GFR Interprentation 20- 49 yrs >60 mL/min Normal 50-59 yrs >56 mL/min Normal 60-69 yrs >49 mL/min Normal 70- 79yrs >42 mL/min Normal 80 and above >35 mL/min Normal Female GFR Interpretation 20-39 yrs >60 mL/min Normal 40-49 yrs >58 mL/min Normal 50-59 yrs >51 mL/min Normal 60-69 yrs >45 mL/min Normal 70-79 yrs >39 mL/min Normal 80 and above >32 mL/min NormalResponsible Observer: () 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 64 yrs AGE MODE ([facility]) Note: Responsible Observer: () Albumin [Mass/volume] in Blood by Bromocresol purple ( BCP) dye binding method 4.3 G/DL ALBUMIN MODE ([facility]) Note: Responsible Observer: () ALKALINE PHOS 48 U/L ALKALINE PHOS MODE ([facility]) Note: Responsible Observer: () Anion gap in Body fluid 12.0 mmol/L ANION GAP MODE ([facility]) Note: Responsible Observer: () BUN 15 MG/DL BUN MODE ([facility]) Note: Responsible Observer: () BUN/CREAT 19 BUN/CREAT MODE ([facility]) Note: Responsible Observer: () Calcium [Moles/volume] in Urine collected for unspecified durati on 9.5 MG/DL CALCIUM MODE ([facility]) Note: Responsible Observer: () Chloride [Moles/volume] in Serum, Plasma or Blood 103 mEq/L CHLORIDE MODE ([facility]) Note: Responsible Observer: () CO2 24 MEQ/L CO2 MODE ([facility]) Note: Responsible Observer: () COMPREHENSIVE METABOLIC PANEL See Note COMPRE HENSIVE METABOLIC PANEL MODE ([facility]) Note: COMPREHENSIVE METABOLIC PANELR esponsible Observer: () Creatinine [Moles/volume] in Vitreous fluid 0.8 MG/DL CREATININE MODE ([facility]) Note: Responsible Observer: () Globulin [Mass/time] in 24 hour Urine 2.5 GM/DL GLOBULIN MODE ([facility]) Note: Responsible Observer: () Glucose [Mass/volume] in Urine collected for unspecified duratio n 184 MG/DL Above high normal GLUCOSE MODE ([facility]) Note: Responsible Observer: () NON-AA GFR >60 mL/min NON-AA GFR MODE ([facility]) Note: Responsible Observer: () Potassium [Mass/volume] in Blood 4.7 mEq/L POT ASSIUM MODE ([facility]) Note: Responsible Observer: () SGOT/AST 21 U/L SGOT/AST MODE ([facility]) Note: Responsible Observer: () SGPT/ALT 30 U/L SGPT/ALT MODE ([facility]) Note: Responsible Observer: () Sodium [Moles/volume] in Serum, Plasma or Blood 139 mEq/L SODIUM MODE ([facility]) Note: Responsible Observer: () TOTAL BILI <0.7 MG/DL TOTAL BILI MODE ([facility]) Note: Responsible Observer: () TOTAL PROTEIN 6.8 G/DL TOTAL PROTEIN MODE ([facility]) Note: Responsible Observer: () ID Date Data Source [id number] 08/12/2019 07:48:00 AM EST ELIZABETH ([facility]) Name Value Range Interpretation Code Description Data Shelly rce(s) Supporting Document(s) Reported Physicians See Note Reported Physici ans MODE ([facility]) Note: Reported Physicians:Ordering: Esha De La Garza AAttending: ESHA TALAMANTESConsulting: Alex TALAMANTES To: Esha Talamantes ID Date Data Source [id number] 08/12/2019 07:48:00 AM EST [employer] ([facility]) Name Value Range Interpretation Code Description Data Shelly rce(s) Supporting Document(s) CREAT UR 137.6 MG/DL Above high normal CREAT UR KIARA HAWKINS ([facility]) Note: Responsible Observer: (BLD) MA/CREAT RATIO 2.76 MCG/MG MA/CREAT RATIO JEMIMA TEJADA ([facility]) Note: The [place] [employer] ion states that Microalbuminemia is present if the Microalbumin/Creatinine ratio exceeds 30 mcg/mg. The threshold for Clinical Albuminuria is reached at 300 mcg/mg. The classification of a patient should be based upon at least 2 or 3 abnormal results on specimens collected within a 3 to 6 month timeframe.Responsible Observer: (BLD) MICROALBUMIN <12.00 MG/L Above high normal MICROALBUMIN GR DARELL ([facility]) Note: Responsible Observer: (BLD) ID Date Data Source [id number] 08/12/2019 07:48:00 AM EST MODE ([facility]) Name Value Range Interpretation Code Description Data Shelly rce(s) Supporting Document(s) Reported Physicians See Note Reported [place] ONOFREWAY ([facility]) Note: Reported Physicians:Ordering: Esha De La Garza AAttending: ESHA TALAMANTESConsulting: ESHA TALAMANTESCopninfa To: Esha Talamantes ID Date Data Source [id number] 08/12/2019 07:48:00 AM EST ELIZABETH ([facility]) Name Value Range Interpretation Code Description Data Shelly rce(s) Supporting Document(s) PSA 0.95 ng/mL PSA ELIZABETH ([facility]) Note: BLDoPSA INTERP RETATIONBLDx The PSA assay [...] kits cannot be used interchangeably.Responsible Observer: () ID Date Data Source [id number] 08/12/2019 07:48:00 AM EST ELIZABETH ([facility]) Name Value Range Interpretation Code Description Data Shelly rce(s) Supporting Document(s) Reported Physicians See Note Reported Teri karoline MODE ([facility]) Note: Reported Physicians:Ordering: Chirag mulligan Esha AAttending: JUSTUS TALAMANTESYNConsulting: JUSTUS TALAMANTESYNCopy To: Esha Talamantes ID Date Data Source [id number] 08/12/2019 07:48:00 AM [facility] ([facility]) Name Value Range Interpretation Code Description Data Shelly rce(s) Supporting Document(s) Cholesterol [Moles/volume] in Pericardial fluid 177 MG/DL CHOLESTEROL MODE ([facility]) Note: Responsible Observer: (BLD) CVE PANEL See Note CVE PANEL MODE ([facility]) Note: LIPID PANELResponsible Observe r: (BLD) HDL 48 MG/DL HDL MODE ([facility]) Note: Responsible Observer: (BLD) Cholesterol in LDL [Mass/volume] in Serum or Plasma by Direct as say 91 mg/dL LDL MODE ([facility]) Note: Responsible Observer: (BLD) LDL/HDL 1.90 LDL/HDL MODE ([facility]) Note: CVE RISK CHOL/HD L LDL/HDLMEN: 1/2 AVERAGE 3.43 1.00 AVERAGE 4.97 3.55 2X AVERAGE 9.55 6.25 3X AVERAGE 23.99 7.99WOMEN: 1/2 AVERAGE 3.27 1.47 AVERAGE 4.44 3.22 2X AVERAGE 7.05 5.03 3X AVERAGE 11.04 6.14Responsible Observer: (BLD) RISK FACTOR 3.7 RISK FACTOR MODE ([facility]) Note: Responsible Observer: (BLD) TRIGLYCERIDES 272 MG/DL Above high normal [facility] Note: Responsible Observer: (BLD) ID Date Data Source [id number] 08/12/2019 07:48:00 AM EST MODE ([facility]) Name Value Range Interpretation Code Description Data Shelly rce(s) Supporting Document(s) Reported Physicians See Note Reported Physici ans MODE ([facility]) Note: Reported Physicians:Ordering: Beard e, Esha AAttending: JUSTUS TALAMANTESYNConsulting: Alex TALAMANTES To: Esha Talamantes ID Date Data Source [id number] 08/12/2019 07:48:00 AM ALENA JOHNSON ([facility]) Name Value Range Interpretation Code Description Data Shelly rce(s) Supporting Document(s) Testosterone, Serum 137 ng/dL Below low normal Testostero ne, Serum MODE ([facility]) Note: Adult male reference interval is b ased on a population ofhealthy nonobese males (BMI <30) between 19 and 39 years old.Silas, et.al. JCEM 2017,102;1161- 1173. PMID: [id number].Responsible Observer: (rfl) ID Date Data Source [id number] 08/13/2019 08:10:00 AM [facility] Name Value Range Interpretation Code Description Data Shelly rce(s) Supporting Document(s) Testosterone [Mass/volume] in Serum or Plasma 137 ng/dL 264-916 L [facility] Adult male reference interval is based o n a population ofhealthy nonobese males (BMI <30) between 19 and 39 years old.Travison, et.al. JCEM 2017,102;7776-7726. PMID: [id number]. ID Date Data Source [id number] 08/12/2019 01:01:00 PM [facility] Name Value Range Interpretation Code Description Data Shelly rce(s) Supporting Document(s) CVE PANEL [facility] al LIPID PANEL Cholesterol [Mass/volume] in Serum or Plasma 177 MG/DL 131 - 200 [facility] Deprecated Triglyceride [Mass/volume] in Serum or Plasma 272 MG/DL 3 5 - 160 [facility] HDL 48 MG/DL 29 - 86 [facility] Ch[facility] in LDL/Cholesterol in HDL [Mass Ratio] in Serum or Plasma 91 mg/dL 65 - 175 [facility] Cholesterol.total/Cholesterol in HDL [Mass Ratio] in Serum o r Plasma 3.7 3.4 - 4.9 [facility] LDL/HDL 1.90 1.00 - 3.55 [facility] ital CVE RISK CHOL/HDL LDL/HDLMEN: 1/2 AVERAGE 3.43 1.00 AVERAGE 4.97 3.55 2X AVERAGE 9.55 6.25 3X AVERAGE 23.99 7.99WOMEN: 1/2 AVERAGE 3.27 1.47 AVERAGE 4.44 3.22 2X AVERAGE 7.05 5.03 3X AVERAGE 11.04 6.14 ID Date Data Source [id number] 08/12/2019 12:41:00 PM [facility] Name Value Range Interpretation Code Description Data Shelly rce(s) Supporting Document(s) Prostate specific Ag [Mass/volume] in Serum or Plasma 0.95 ng/mL 0.00 - 4.00 [facility] \\BLDo\\PSA INTERPRETA TION\\BLDx\\ The PSA assay should not be used alone for a screening test or diagnosis for presence or absence of malignant disease. Predictions of disease recurrence should not be based solely on values obtained from serial patient serum values. The PSA result was determined by "[employer]", on the [employer] SINA 6000. Values obtained with different assay methods or kits cannot be used interchangeably. ID Date Data Source [id number] 08/12/2019 12:10:00 PM [facility] Name Value Range Interpretation Code Description Data Shelly rce(s) Supporting Document(s) COMPREHENSIVE METABOLIC PANEL [facility] COMPREHENSIVE METABOLIC PANEL Sodium [Moles/volume] in Serum or Plasma 139 mEq/L 134 - 153 [facility] Potassium [Moles/volume] in Serum or Plasma 4.7 mEq/L 3.6 - 5.0 [facility] Chloride [Moles/volume] in Serum or Plasma 103 mEq/L 98 - 107 [facility] Carbon dioxide, total [Moles/volume] in Serum or Plasma 24 MEQ/L 22 - 30 [facility] Glucose [Mass/volume] in Serum or Plasma 184 MG/DL 65 - 110 [facility] BUN 15 MG/DL 7 - 21 [facility] Creatinine [Mass/volume] in Serum or Plasma 0.8 MG/DL 0.7 - 1.5 [facility] BUN/CREAT 19 8 - 27 [facility] Protein [Mass/volume] in Serum or Plasma 6.8 G/DL 6.3 - 8.2 [facility] Albumin [Mass/volume] in Serum or Plasma 4.3 G/DL 3.9 - 5.0 [facility] Globulin [Mass/volume] in Serum by calculation 2.5 GM/DL 2.4 - 3.2 [facility] A/G RATIO 1.7 0.8 - 2.0 [facility] Calcium [Mass/volume] in Serum or Plasma 9.5 MG/DL 8.4 - 10.2 [facility] Bilirubin.total [Mass/volume] in Serum or Plasma <0.7 MG/DL 0.2 - 1.3 [facility] Alkaline phosphatase [Enzymatic activity/volume] in Serum or Plasma 48 U/L 38 - 126 [facility] Aspartate aminotransferase [Enzymatic activity/volume] in Serum or Plasma 21 U/L 5 - 40 [facility] Alanine aminotransferase [Enzymatic activity/volume] in Seru m or Plasma 30 U/L 7 - 56 [facility] Anion gap 3 in Serum or Plasma 12.0 mmol/L 8.0 - 16.0 [facility] AGE 64 yrs [facility] al NON-AA GFR >60 mL/min [facility] ital AFR AMER GFR >60 mL/min [facility] Ho spital Male GFR In terprentation 20-49 yrs >60 mL/min Normal 50-59 yrs >56 mL/min Normal 60-69 yrs >49 mL/min Normal 70-79yrs >42 mL/min Normal 80 and above >35 mL/min Normal Female GFR Interpretation 20-39 yrs >60 mL/min Normal 40-49 yrs >58 mL/min Normal 50-59 yrs >51 mL/min Normal 60-69 yrs >45 mL/min Normal 70-79 yrs >39 mL/min Normal 80 and above >32 mL/min Normal ID Date Data Source [id number] 08/12/2019 12:10:00 PM EST [facility] Name Value Range Interpretation Code Description Data Shelly rce(s) Supporting Document(s) CREAT UR 137.6 MG/DL 0.0 - 30.0 H [facility] MICROALBUMIN <12.00 MG/L 0.00 - 0.00 H [facility] MA/CREAT RATIO 2.76 MCG/MG 0.01 - 30.00 [facility] [employer] st ates that Microalbuminemia is present if the Microalbumin/Creatinine ratio exceeds 30 mcg/mg. The threshold for Clinical Albuminuria is reached at 300 mcg/mg. The classification of a patient should be based upon at least 2 or 3 abnormal results on specimens collected within a 3 to 6 month timeframe. ID Date Data Source [id number] 08/12/2019 12:03:00 PM [facility] Name Value Range Interpretation Code Description Data Shelly rce(s) Supporting Document(s) Creatine kinase [Enzymatic activity/volume] in Serum or Plasma 1 02 U/L 30 - 170 [facility] ID Date Data Source [id number] 07/09/2019 08:53:00 AM [facility] [address] [place] [address] PHONE: [phone] FAX: [phone] Name ..............: APRYL Ma Acct Number ...........................: [id number] ROOM. ............: TR-1A MR Number ............................: [id number] Stay type.........: E/R Discharge Date...............:07/07/19 Admit Date .....: 07/07/19 Admit Phys .............................: SIVA TOPETE Date of ..: 1955 Family Phys ...........................: VINITA HOOPER Phone..............: [phone] Age.................................:63 Film# ...............:[id number] Sex.................................:M Unsigned transcriptions are preliminary reports and do not represent a medical or legal document EKAnil [id number] COMPLETE:07/08/19 07:30 SAVAGE [id number] Please See Scanned Results. Name Value Range Interpretation Code Description Data Shelly rce(s) Supporting Document(s) ID Date Data Source [id number] 07/08/2019 09:58:00 AM EST [facility] [address] [place] [address] PHONE: [phone] FAX: [phone] Name .................. : APRYL Ma Acct Number.................. : [id number] ROOM. ................. : [facility] MR Number ................... : [id number] Stay type ............. : E/R Discharge Date......... ... : 07/07/19 Admit Date ......... : 07/07/19 Admit Phys .................... : SIVA TOPETE Date of ....... : 1955 Family Phys ................... : VINITA HOOPER Phone .................. : [phone] Age ................................ : 63 Film# .................. .:[id number] Sex ................................. : M Unsigned transcriptions are preliminary reports and do not represent a medical or legal document CT CERV SPINE W/O BASIL [id number] COMPLETE:07/07/19 13:35 67519 Reason(s): Pain CT STUDY OF THE CERVICAL SPINE WITHOUT CONTRAST: HISTORY: Pain. FINDINGS: The cervical lordotic curvature is preserved. Vertebral body heights are well maintained and uniform in appearance. Multilevel facet joint arthropathy is noted. Post surgical changes of anterior cervical fusion are noted at the C6-7 level. The spinal canal is grossly ample. The neural foramina are grossly patent bilaterally. C1 and the odointoid processes are intact. No acute findings are seen within the paraspinal soft tissues. No acute findings are seen within the upper chest. IMPRESSION: 1. Po stoperative changes of anterior cervical fusion noted at the C6-7 level without convincing hardware loosening or displacement. 2. Multilevel facet joint arthropathy. While performing the above CT examination, radiation dose reduction was accomplished utilizing automated exposure control, adjusting of the mA and kV based on the patient's body size and/or the use of imperative reconstructive techniques. CT dose: 239 mGycm Electronically Reviewed and Signed By Sea Moreno MD , 07/08/19 09:58, RND Transcribe Initials: DZ , Transcribe Date: 07/07/19 17:01, Dictation Date: Copy for: GEORGES YEN via fax Copy for: VINITA BALBUENA via fax Page 1 of 2 [place] [address] PHONE: [phone] FAX: [phone] Name .................. : APRYL Ma Acct Number.................. : [id number] ROOM. ................. : TR-1A MR Number ................... : [id number] Stay type ............. : E/R Discharge D ate......... ... : 07/07/19 Admit Date ......... : 07/07/19 Admit Phys .................... : SIVA TOPETE Date of ....... : 1955 Family Phys ................... : VINITA HOOPER Phone .................. : [phone] Age ................................ : 63 Film# .................. .:[id number] Sex ................................. : M Unsigned transcriptions are preliminary reports and do not represent a medical or legal document CT CERV SPINE W/O CONTRAS [id number] COMPLETE:07/07/19 13:35 79690 Reason(s): Pain Copy for: EMERGENCY DEPT via modem Copy for: 710 MED REC DISCHARGED Page 2 of 2 Name Value Range Interpretation Code Description Data Shelly rce(s) Supporting Document(s) ID Date Data Source [id number] 07/08/2019 09:54:00 AM EST [facility] [address] [place] [address] PHONE: [phone] FAX: [phone] Name .................. : APRYL Ma Acct Number.................. : [id number] ROOM. ................. : TR-1A MR Number ................... : [id number] Stay type ............. : E/R Discharge Date......... ... : 07/07/19 Admit Date ......... : 07/07/19 Admit Phys .................... : SIVA TOPETE Date of ....... : 1955 Family Phys ................... : VINITA HOOPER Phone .................. : [phone] Age ................................ : 63 Film# .................. .:[id number] Sex ................................. : M Unsigned transcriptions are preliminary reports and do not represent a medical or legal [place] [id number] COMPLETE:07/07/19 13:37 54216 Reason(s): Pain LEFT ELBOW SERIES: FINDINGS: No acute fracture or dislocation is present. The joint spaces are well preserved. No acute findings are seen within the overlying soft tissues. No elbow joint effusion is present. No radial head fractures are specifically identified. The coronoid process appears intact, although mild bony spurring is present. IMPRESSION: No acute fracture or dislocation. Electronically Reviewed and Signed By Sea Moreno MD , 07/08/19 09:55, RND Transcribe Initials: JEROD , Transcribe Date: 07/07/19 17:04, Dictation Date: Copy for: GEORGES YEN via fax Copy for: VINITA BALBUENA via fax Copy for: EMERGENCY DEPT via modem Copy for: 710 MED REC DISCHARGED Page 1 of 1 Name Value Range Interpretation Code Description Data Shelly rce(s) Supporting Document(s) ID Date Data Source [id number] 07/08/2019 09:54:00 AM EST [facility] [address] [place] [address] PHONE: [phone] FAX: [phone] Name .................. : APRYL Ma Acct Number.................. : [id number] ROOM. ................. : [facility] MR Number ................... : [id number] Stay type ............. : E/R Discharge Date......... ... : 07/07/19 Admit Date ......... : 07/07/19 Admit Phys .................... : SIVA TOPETE Date of ....... : 1955 Family Phys ................... : VINITA HUNTCE Phone .................. : [phone] Age ................................ : 63 Film# .................. .:[id number] Sex ................................. : M Unsigned transcriptions are preliminary reports and do not represent a medical or legal document CHEST 2 VIEWS [id number] COMPLETE:07/07/19 13:35 00166 Reason(s): Congestion CHEST X-RAY: 2-VIEWS HISTORY: Congestion FINDINGS: The heart is within normal limits in size. No air space disease, consolidation or pleural effusion is present. A few subcentimeter densities are noted compatible with small granulomas. Post surgical changes of anterior cervical fusion are noted. No acute findings are seen within the upper abdomen. No acute bony abnormalities are convincingly detected. Pulmonary interstitial markings are accentuated bilaterally. IMPRESSION: 1. COPD 2. Subcentimeter densities compatible with calcified granulomas. 3. Mild to moderate fibrotic changes. Electronically Reviewed and Signed By Sea Moreno MD , 07/08/19 09:54, RNKathy Transcribe Initials: JEROD , Transcribe Date: 07/07/19 16:27, Dictation Date: Copy for: GEORGES YEN via fax Copy for: VINITA BALBUENA via fax Copy for: EMERGENCY DEPT via modem Copy for: Jeremy MED REC DISCHARGED Page 1 of 1 Name Value Range Interpretation Code Description Data Shelly rce(s) Supporting Document(s) ID Date Data Source [id number] 07/07/2019 01:18:00 PM EST [facility] 1 OrderSheet [facility] Emergency Department [address] [place] [address] Phone #: ext- [phone] 07/07/2019 13:01 Patient: TOLU RATLIFF Sex: M : 1955 Age: 63yWEIGHT:88.4 kg (S) HEIGHT:71 inches (S) BMI:27.2ALLERGIES: Shellfish-derived ProductsCHIEF COMPLAINT: pain, swelling, altered sensation, pain, swelling, altered sensation, Lt, shoulders, in:, Lt,elbowsDIAGNOSIS: BursitisLAB ORDERSOrder Description Priority Entered Acknowledged InitialedCBC w Diff STAT 13:35 07/07/2019 13:46 Edna AVINA;CMP STAT 13:35 07/07/2019 13:46 Edna AVINA;Blood Culture STAT 13:35 07/07/2019 13:46 [id number] X2 (Sched Faustino Paris RN13:35 07/07/2019) PA;Blood Culture STAT 13:35 07/07/2019 13:46 Lcriza63c X2 (Sched Faustino sparrow RN13:45 07/07/2019) PA;Lactic Acid STAT 13:35 07/07/2019 13:46 Edna Paris RN PA;PT/PTT STAT 13:35 07/07/2019 13:46 Edna Paris RN PA;Urinalysis (Clean STAT 13:35 07/07/2019 15:25 DorisCatch) Faustino Paris RN PA;Sed. Rate STAT 13:35 07/07/2019 13:46 Edna Paris RN PA;CRP STAT 13:35 07/07/2019 13:46 Edna Paris RN PA;Troponin-T STAT 13:35 07/07/2019 13:46 Edna Paris RN PA; 2 OrderSheet [facility] Emergency Department [address] [place] [address] Phone #: ext- [phone] 07/07/2019 13:01 Patient: TOLU RATLIFF Sex: M : 1955 Age: 63yCulture, Wound STAT 15:29 07/07/2019 15:30 Edna(Arm) Faustino Paris RN PA; NOTES: left elbowCulture, Anaerobic STAT 15:29 07/07/2019 15:30 Edna(Left Elbow Bursa) Faustino Paris RN PA;Gram Stain STAT 15:29 07/07/2019 15:30 Edna Paris RN PA;DIAGNOSTIC STUDY ORDERSOrder Description Priority Entered Acknowledged InitialedChest 2 View STAT 13:35 07/07/2019 13:46 Edna(Oxygen?(No)) Faustino Paris RN PA; Reason for Study: CongestionCT Spine Cervical STAT 13:35 07/07/2019 13:46 DorisW/O Cont Faustino Paris RN(Oxygen?(No)) PA; Reason for Study: Pain, Upper Extremity PainElbow Complete STAT 13:37 07/07/2019 13:46 DorisLeft (Oxygen?(No)) Faustino Paris RN PA; Reason for Study: PainMEDICATION/IV/DRIP/FLUID ORDERSOrder Description Priority Entered Acknowledged InitialedpredniSONE PO 60 13:35 07/07/2019 13:51 Jesusita Paris RN PA;Toradol IM 30 mg 13:35 07/07/2019 13:52 Edna Paris RN PA;GENERAL ORDERSOrder Description Priority Entered Acknowledged Init ialedEKG 13:35 07/07/2019 13:46 Edna Paris RN PA;Taryn Wrap 15:29 07/07/2019 15:30 Edna Paris RN PA; 3 OrderSheet [facility] Emergency Department [address] [place] [address] Phone #: ext- [phone] 07/07/2019 13:01 Patient: TOLU RATLIFF Sex: M : 1955 Age: 63y[Electronically signed by Edna Paris RN (15:38 07/07/2019)][Electronically signed by Faustino Young (17:59 07/07/2019)][Electronically locked by Edna Paris RN (15:38 07/07/2019)] Name Value Range Interpretation Code Description Data Shelly rce(s) Supporting Document(s) ID Date Data Source [id number] 07/07/2019 01:18:00 PM EST [facility] 1 Medication Reconciliation Report [facility] Emergency Department [address] [place] [address] Phone #: ext- [phone] 07/07/2019 13:01 [id number] Sex: M : 1955 Age: 63yWeight: 88.4 kgHeight/Length: 71 in.BMI: 27.2ALLERGIES: Shellfish-derived ProductsThe patient's Home Medications are listed below:CONTINUE TAKING THE FOLLOWING MEDICATIONS: Aspirin Oral (81 mg) 1 tablet, daily Atorvastatin Calcium Oral (20 mg) 1 tablet, daily metFORMIN HCl Oral (500 mg) 1 tablet, daily Multi Vitamin Daily Oral 1 tablet, daily ProAir HFA Inhalation (108 (90 Base) mcg/act) 2 puffs, prn Serevent Diskus Inhalation 2 puffs, dailyThe source(s) of the original Home Medication information:Not obtained.The following Medications were given to the patient in the Emergency Department:Prednisone [PO] PO 60 mg, administered: 07/07/2019 1:50: 00 PMToradol [IM] IM 30 mg, administered: 07/07/2019 1:50:00 PMThe following Medications were prescribed to the patient:Medrol (Chucky) 4 mg tablets in a dose pack Take 1 tablet as directed for 6 days -- start tomorrow AM.Dispense 1 pack. Refills: 0. Substitution permitted.Pharmacy - [id number] - [address] [place], [place] [id number]. .Bactrim DS 800 mg-160 mg tablet Take 1 tablet twice a day for 10 days -- Dispense 20 tablet. Refills: 2 Medication Reconciliation Report [facility] Emergency Department [address] [place] [address] Phone #: ext- [phone] 07/07/2019 13:01 Patient: TOLU RATLIFF Sex: M : 1955 Age: 63y0. Substitution permitted.[id number] [address] [place], [place] [id number]. . -- FABRICE Pena Name Value Range Interpretation Code Description Data Shelly rce(s) Supporting Document(s) ID Date Data Source [id number] 07/07/2019 01:18:00 PM [facility] 1 Medication Administration Record [facility] Emergency Department [address] [place] [address] Phone #: [phone] 07/07/2019 13:01 Patient: TOLU RATLIFF Sex: M : 1955 Age: 63yWeight: 88.4 kgHeight/Length: 71 inBMI: 27.2ALLERGIES: Shellfish-derived Products Date/Time Medication Administered Medication OrderedGiven PREDNISONE [PO] predniSONE PO 60 mg13:50 07/07/2019 Dose: 60 mg Tablets Chet Paris RNGiven TORADOL [IM] (KETOROLAC Toradol IM 30 mg13:50 07/07/2019 TROMETHAMINE)Edna Paris RN Dose: 30 mg IM Name Value Range Interpretation Code Description Data Shelly rce(s) Supporting Document(s) ID Date Data Source [id number] 07/07/2019 01:18:00 PM [facility] 1 General Instructions [facility] Emergency Department [address] [place] [address] Phone #: ext- [phone] 07/07/2019 13:01 Patient: TOLU RATLIFF Sex: M : 1955 Age: 63yTraumatic left olecranon bursitis.INSTRUCTIONSWear elastic wrap (Taryn wrap) as directed for two weeks until better.Your Current Medications: Your current home medications have been reviewed.CONTINUE TAKING THE FOLLOWING MEDICATIONS:Aspirin Oral : Tablet Chewable 81 mg, 1 tablet daily.Atorvastatin Calcium Oral : Tablet 20 mg, 1 tablet daily.metFORMIN HCl Oral : Tablet 500 mg, 1 tablet daily.Multi Vitamin Daily Oral : 1 tablet daily.ProAir HFA Inhalation : Aerosol Solution 108 (90 Base) mcg/act, 2 puffs, prn.Serevent Diskus Inhalation : 2 puffs daily.Prescription Medications:Medrol (Chucky) 4 mg tablets in a dose pack Take 1 tablet as directed for 6 days -- start tomorrow AM.Dispense 1 pack. Refills: 0. Substitution permitted.[id number] [address], [place] [id number]. FaxNumber: [phone].Bactrim DS 800 mg-160 mg tablet Take 1 tablet twice a day for 10 days -- Dispense 20 tablet. Refills:0. Substitution permitted.[id number] [address] [place], [place] [id number]. .Follow-up:Follow up with your doctor Monday. Call for an appointment. Reason for referral: evaluation, treatment andreferral to Orthopedics for left elbow burisitis if no improvement.. Summary of care provided to patient.Understanding of the discharge instructions verbalized by patient. ADDITIONAL INFORMATIONBursitis 2 General Instructions [facility] Emergency Department [address] [place] [address] Phone #: [phone] ext- [phone] 07/07/2019 13:01 Patient: TOLU RATLIFF Sex: M : 1955 Age: 63yYou have bursitis. This is an inflammation of the bursa. These are small, fluid-filled sacs that surroundthe larger joints of the body. The bursa help the muscles and tendons move smoothly over the joints.Bursitis often happens in the shoulder. But it can also affect the elbows, hips, pelvis, knees, toes, andheels. Bursitis can be caused by injury, overuse of the joint, or infection of the bursa. Symptomsinclude pain and tenderness over a joint. Symptoms get worse with movement.Bursitis is treated with an anti-inflammatory medicine and by resting the joint. More severe casesrequire injection of medicine directly into the bursa. In the case of infection, surgery and antibioticsmay be needed.Home care Rest the painful joint and protect it from movement. This will allow the inflammation to heal faster. Apply an ice pack over the injured area for no more than 15 to 20 minutes. Do this every 3 to 6 hours for the first 24 to 48 hours. Keep using ice packs 3 to 4 times a day until the pain and swelling improves. To make an ice pack, put ice cubes in a sealed plastic bag. Wrap the bag in a clean, thin towel or cloth. Never put ice or an ice pack directly on the skin. As the ice melts, be careful to not to get the wrap or splint wet. You may take ocek-cro-dcbzlar pain medicine to treat pain and inflammation, unless another medicine was prescribed. Anti-inflammatory pain medicines may be more effective. Talk with your provider before using these medicines if you have chronic liver or kidney disease, or ever had a stomach ulcer or gastrointestinal bleeding. As your symptoms improve, slowly begin to move the joint. Don't overuse the joint. This may cause the symptoms to flare up again. 3 General Instructions [facility] Emergency Department [address] [place] [address] Phone #: ext- [phone] 07/07/2019 13:01 Patient: TOLU RATLIFF Sex: M : 1955 Age: 63yWhen to seek medical adviceCall your healthcare provider right away if any of these occur: Redness or warmth over the painful area Increasing pain or swelling at the joint Fever of 100.4F (38C) or above lasting for 24 to 48 hours, or as advised Chills 8962-7382 [employer]. [address] [place] [address]. All rights reserved. This information is not intended as asubstitute for professional medical care. Always follow your healthcare professional's instructions.TARYN WrapMinor muscle or joint injuries are often treated with an elastic bandage. The bandage providessupport and compression to the injured area. An elastic bandage is a stretchy, rolled bandage. Elasticbandages range in width from 2 to 6 inches. They can be used for a variety of injuries. The bandagesare often called TARYN bandages, after the most common brand name.If used correctly, elastic bandages help control swelling and ease pain. An elastic bandage is also agood reminder not to overuse the injured area. However, elastic bandages do not provide a lot ofsupport and will not prevent reinjury.Home care To apply an elastic bandage: 4 General Instructions [facility] Emergency Department [address] [place] [address] Phone #: ext- [phone] 07/07/2019 13:01 Patient: TOLU RATLIFF Sex: M : 1955 Age: 63y Check the skin before wrapping the injury. It sh ould be clean, dry, and free of drainage. Start wrapping below the injury and work your way toward the body. For an ankle sprain, start wrapping around the foot and work up toward the calf. This will help control swelling. Overlap the edges of the bandage so it stays snuggly in place. Wrap the bandage firmly, but not too tightly. A tight bandage can increase swelling on either end of the bandage. Make sure the bandage is wrinkle free. Leave fingers and toes exposed. Secure ends of the bandage (even self- sticking ones) with clips or tape. Check often to be sure there is good circulation, especially in the fingers and toes. Loosen the bandage if there is local swelling, numbness, tingling, discomfort, coldness, or discoloration (skin pale or bluish in color). Rewrap the bandage as needed during the day. Reroll the bandage as you unwind it.Continue using the elastic bandage until the pain and swelling are gone or as your healthcareprovider advises.If you have been told to ice the area, the ice can be secured in place with the elastic bandage. Wrapthe ice pack with a thin towel to protect the skin. Don't put ice or an ice pack directly on the skin. Icethe area for no more than 20 minutes at a time.Follow-up careFollow up with your healthcare provider, or as advised.When to seek medical adviceCall your healthcare provider for any of the following: Pain and swelling that doesn't get better or gets worse Trouble moving injured area Skin discoloration, numbness, or tingling that doesn't go away after bandage is removed [id number] [employer]. [address] [place] [address], [place] [address]. All rights reserved. This information is not intended as asubstitute for professional medical care. Always follow your healthcare professional's instructions. You have been given the following additional information: Bursitis TARYN Wrap 5 General Instructions [facility] Emergency Department [address] [place] [address] Phone #: ext- [phone] 07/07/2019 13:01 Patient: TOLU RATLIFF Sex: M : 1955 Age: 63y(Electronically signed by FABRICE Pena 07/07/2019 17:59) Name Value Range Interpretation Code Description Data Shelly rce(s) Supporting Document(s) ID Date Data Source [id number] 07/07/2019 01:18:00 PM EST [facility] 1 Clinical Report - Nurses [facility] Emergency Department [address] [place] [address] Phone #: ext- [phone] 07/07/2019 13:01 Patient: TOLU RATLIFF Sex: M : 1955 Age: 63yTRIAGEArrived by private vehicle. Historian: patient.Triage time: 13:02 07/07/2019. Acuity: LEVEL 4.Chief Complaint: LEFT UPPER EXTREMITY PAIN, NUMBNESS and TINGLING. Location of symptoms-left shoulder, left arm, left elbow, left forearm and left wrist.13:02 07/07/19. Alert. No acute distress.No injury occurred. This occurred (07/05 Left elbow swelling, drained 6 ml clear orange fluid from elbow07/05). It is described as radiating to the left upper extremity, shoulder, upper arm, elbow, forearm andwrist.QUICK SEPSIS RELATED ORGAN FAILURE ASSESSMENT SCORE: 0.SEPSIS SCREEN: NEGATIVE. Negative (no infection suspected/documented). --13:12 07/07/19 DHEERAJ Diop13:02 07/07/19. BP: 159/91. MAP: 113. HR: 83. RR: 16. O2 saturation: 95%. Temp: 97.8 F. Pain levelnow: 5/10. Describes the quality as aching and burning. It has been intermittent. Pain level at maximum:5/10. It is described as radiating to the left shoulder, left arm, left elbow, left forearm and left hand. It isworsened by exertion and movement. --13:12 07/07/19 Edna Paris RN.Weight: 88.4 kg stated. Height/Length: 71 inches Per Patient. BMI: 27.2. --13:02 07/07/19 DHEERAJ Diop.MedicationsAtorvastatin Calcium Oral (Tablet 20 mg) 1 tablet, daily. --13:05 07/07/19 Edna Paris RN metFORMIN HCl Oral (Tablet 500 mg) 1 tablet, daily. --13:05 07/07/19 Edna Paris RN Aspirin Oral (Tablet Chewable 81 mg) 1 tablet, daily. --13:05 07/07/19 Edna aPris RN Multi Vitamin Daily Oral 1 tablet, daily. --13:06 07/07/19 Edna Paris RN ProAir HFA Inhalation (Aerosol Solution 108 (90 Base) mcg/act) 2 puffs, as needed. --13:06 07/07/19Edna Paris RN Serevent Diskus Inhalation 2 puffs, daily. --14:51 07/07/19 Edna Paris RN.AllergiesShellfish-derived Products.(angioedema, hives) --13:07 07/07/19 Edna Paris RN.PROBLEMS:COPD - Chronic Obstructive Pulmonary Disease. --13:08 07/07/19 Edna Paris RN.ADDITIONAL SURGERIES: 2 Clinical Report - Nurses [facility] Emergency Department [address] [place] [address] Phone #: ext- [phone] 07/07/2019 13:01 Patient: TOLU RATLIFF Sex: M : 1955 Age: 63y Back Surgery. Shoulder Surgery (Left). --13:08 07/07/19 Edna Paris RN. History 13:02 07/07/19. PAST MEDICAL HX: Tetanus status: up-to-date. Immunizations: up-to-date. SOCIAL HX: Former smoker, end date 06/19/2019. Alcohol use; consumes 12-pack of beer a week. The patient was offered HIV testing but declined and hepatitis C testing but declined. The patient has not traveled outside the [place] Infectious disease exposure: No infectious disease exposure. Patient is not a known carrier of tuberculosis, hepatitis, HIV, MRSA or VRE. Patient is not a known carrier of CRE. SELF HARM ASSESSMENT: Self harm assessment was performed. The patient answered "no" to the question(s) "Do you have thoughts of harming or killing yourself?" and "Do you have a plan for harming or killing yourself?". ABUSE ASSESSMENT: Abuse assessment. The patient had positive responses to the question(s) "Do you feel safe in your home?" (yes). No report of abuse. NUTRITIONAL RISK ASSESSMENT: The nutritional risk assessment revealed no deficiencies. FUNCTIONAL ASSESSMENT: Functional assessment: no impairments noted. LEARNING NEEDS ASSESSMENT: The learning needs assessment revealed no barriers. FALL RISK ASSESSMENT: Fall risk assessment completed. No risk factors identified. SKIN INTEGRITY ASSESSMENT: Skin integrity risk assessment completed. No skin integrity risk identified. --13:12 07/07/19 Edna Paris RN.PHYSICAL ELSUPQHXHL76:12 07/07/19. Ambulatory to room.GENERAL / NEURO / PSYCH: Oriented X 4. Alert. Appears in no acute distress. The patient has newonset of intermittent numbness of the left hand with tingling.EXTREMITIES: Skin tenderness is present on the extremities. Upper extremity edema. left elbow.Neuro-vascular status intact to the extremity. Left shoulder. Left arm. Left elbow: tenderness andswelling of the area of the posterior elbow. Left forearm. Left wrist.SKIN: Skin intact. Skin is warm and dry. --13:14 07/07/19 Edna Paris RN.NURSING PROGRESS NOTES13:14 07/07/19. Patient identifiers checked. Call light placed in reach. Side rails up. Bed placed inlowest position. Brakes of bed on. Patient ready for evaluation- ED physician and PA notified. --13:141 Edna Paris RN 3 Clinical Report - Nurses [facility] Emergency Department [address] [place] [address] Phone #: [phone]- [phone] 07/07/2019 13:01 Patient: TOLU RATLIFF Sex: M : 1955 Age: 63y 13:50 07/07/2019 Prednisone PO Tablets 60 mg given. Allergies verified and confirmed 5 rights. Information reviewed with patient including reason for taking this medication, signs of allergic reaction and precautions. Verbalizes understanding. --13:51 07/07/19 Edna Paris RN 13:50 07/07/2019 Toradol (Ketorolac Tromethamine) IM 30 mg given. Given in the right deltoid. Allergies verified and confirmed 5 rights. Information reviewed with patient including reason for taking this medication, signs of allergic reaction and precautions. Verbalizes understanding. --13:52 07/07/19 Edan Paris RN 14:20 07/07/2019 Toradol IM Response: no adverse reaction pain is improving. Symptoms have improved the patient feels better. --15:25 07/07/19 Edna Paris RN 14:23 07/07/19. Patient transported to radiology and CT by wheelchair with air analysis technician. --14:38 07/07/19 Edna Paris RN 14:38 07/07/19. Patient returned from radiology and CT by wheelchair with air analysis technician. --14:38 07/07/19 Edna Paris RN 14:50 07/07/2019 Prednisone PO Response: no adverse reaction pain is improving. Symptoms have improved the patient feels better. --15:26 07/07/19 Edna Paris RN 15:17 07/07/19. ( Aspiration left elbow by Faustino AVINA, Cobtained and sent to lab, 3 ml sero-sanguineous fluid aspirated, sent to lab. Dressing, 2x2, Coban by FABRICE). --15:30 07/07/19 Edna Paris RN.DISPOSITION / DISCHARGE 15:35 07/07/19. BP: 157/85. HR: 78. RR: 17. O2 saturation: 97%. Temp: 97.5 F. Pain level now 4/10. --15:35 07/07/19 [place] molder feeder, Chema, Tech1 15:37 07/07/19. Condition at departure: improved and stable. No learning barriers present. Discharge instructions provided and reviewed with the patient. Reviewed medication(s) side effects, precautions, dosing and course information. Prescription(s) sent electronically to pharmacy (Medrol, Bactrim DS). Patient verbalized understanding. Written instructions provided in Turkish. The patient was discharged home. He left ambulatory and via private vehicle. Patient driving. --15:38 07/07/19 Edna Paris RN.Locked/Released at 07/07/2019 15:38 by Edna Paris RN Name Value Range Interpretation Code Description Data Shelly rce(s) Supporting Document(s) ID Date Data Source [id number] 07/07/2019 01:18:00 PM EST [facility] 1 Clinical Report - Physicians/Mid Levels [facility] Emergency Department [address] [place] [address] Phone #: ext- [phone] 07/07/2019 13:01 [id number] Sex[facility] M : 1955 Age: 63y Time Seen: 13:25 07/07/2019. Arrived- By private vehicle. Historian- patient.HISTORY OF PRESENT ILLNESS Chief Complaint: UPPER EXTREMITY PAIN, SWELLING and ALTERED SENSATION and ; PAIN, SWELLING and ALTERED SENSATION IN THE LEFT SHOULDER and LEFT ELBOW. This started 2 days ago and is still present (Left elbow swelling, pt drained 6 ml clear orange fluid from elbow 07/05 with insulin needle and syringe at home.). Severity is described as being mild. It has become recently worse. The quality is noted to be aching, "pain" and similar to prior episodes. Symptoms located in the area of the left shoulder, left arm, left elbow, left forearm and left wrist. No chest pain, difficulty breathing, sensory loss, motor loss or repetitive hand use at work. He has had swelling, but not had redness. Patient notes the possibility of an injury. Similar symptoms previously. Recent medical care: Not recently seen/assessed.REVIEW OF SYSTEMSNo fever, chills, eye discomfort, headache or depression. No sore throat, cough, skin rash, enlargedlymph nodes or neck pain. No abdominal pain, nausea, vomiting, diarrhea or black stools. No difficultywith urination, urinary frequency, hematuria or bloody stools.PAST HISTORYDiabetes mellitus. Has had intervertebral disc disease and neck injury. Problems: COPD - Chronic Obstructive Pulmonary Disease. Additional Surgeries: Back Surgery. Shoulder Surgery. Medications: ProAir HFA Inhalation (Aerosol Solution 108 (90 Base) mcg/act) 2 puffs, as needed. Multi Vitamin Daily Oral 1 tablet, daily. Aspirin Oral (Tablet Chewable 81 mg) 1 tablet, daily. metFORMIN HCl Oral (Tablet 500 mg) 1 tablet, daily. Atorvastatin Calcium Oral (Tablet 20 mg) 1 tablet, daily. Allergies: Shellfish-derived Products.(angioedema, hives). 2 Clinical Report - Physicians/Mid Levels [facility] Emergency Department [address] [place] [address] Phone #: ext- [phone] 07/07/2019 13:01 Patient: TOLU RATLIFF Sex: M : 1955 Age: 63ySOCIAL HISTORYFormer smoker. Alcohol use; consumes 12-pack of beer a week. No drug use.PHYSICAL EXAMVital Signs: 07/07/2019 13:02 BP: 159/91. MAP: 113. HR: 83. RR: 16. O2 saturation: 95%. Temp: 97.8 F.Pain level now: 5/10. Have been reviewed as abnormal. Hypertensive. Oxygen saturation normal.Appearance: Alert. Oriented X3. No acute distress.Eyes: Pupils equal, round and reactive to light. Eyes normal inspection.ENT: Ears normal. Nose normal. Pharynx normal.Neck: Pain in the neck upon movement.CVS: Normal heart rate and rhythm. Heart sounds normal.Respiratory: No respiratory distress. Breath sounds normal.Abdomen: Nontender.Back: Normal inspection. No tenderness. Mild vertebral tenderness over the mid and lower cervicalspine. Mildly limited ROM in the back- in the cervical spine: decreased flexion, extension, right lateralbending, left lateral bending and rotation to the right and left. ROM normal.Skin: Skin intact. Skin warm and dry. Normal skin color. Normal skin turgor.Extremities: Left elbow: mild tenderness located in the area of the olecranon. Limited ROM secondary topain. Small joint effusion present. Neurovascular intact distally. No mild swelling. Extremities otherwisenegative.Neuro: Oriented X 3.LABS, X-RAYS, AND EKGChest X-ray: No acute disease. (sub cm granulomas o/w nad). Interpretation time: 15:24 07/07/2019.Lt Elbow X-ray: No fracture. Normal alignment. No bony lesion, air in the soft tissue or foreign body.Soft tissues normal. Joint spaces normal. Views: AP, lateral and oblique. The X-rays were interpretedby the radiologist and contemporaneously by me. Interpretation time: 15:25 07/07/2019.CT C-Spine: No acute findings. Degenerative joint disease. (s/p Fusion o/w nad). The study wasinterpreted by the radiologist and contemporaneously by me. Interpretation time: 15:25 07/07/2019.Laboratory Tests: Laboratory tests have been ordered, with results reviewed and considered in themedical decision making process. CBC w Diff: (RYAN: 07/07/2019 14:01) ( MsgRcvd 07/07/2019 14:42) Final results Test Result Flag Units (Reference) CBC W/AUTOMATED DIFF COMPLETE BLOOD COUNT WBC 11.5 H 10/uL (4.2 - 11.0) RBC 5.23 10/uL (4.50 - 6.30) HEMOGLOBIN 15.9 g/dL (14.0 - 16.0) HEMATOCRIT 47.4 % (41.0 - 51.0) MCV 90.6 fL (80.0 - 94.0) MCH 30.4 pg (27.0 - 34.0) MCHC 33.5 g/dL (31.0 - 36.0) RDW 12.8 % (11.5 - 14.8) PLATELETS 217 10/uL (150 - 450) MPV 9.2 fL (7.4 - 10.4) NEUT 72.5 % (37.0 - 80.0) LYMPH 17.7 L % (25.0 - 40.0) MONO 7.6 % (3.0 - 8.0) EOS 1.6 % (0.0 - 7.0) BASO 0.3 % (0.0 - 2.0) 3 Clinical Report - Physicians/Mid Levels [facility] Emergency Department [address] [place] [address] Phone #: ext- [phone] 07/07/2019 13:01 Patient: TOLU RATLIFF Sex: M : 1955 Age: 63y %IG 0.3 H % (0.0 - 0.0) %NRBC 0.0 % (0.0 - 0.0) #NEUT 8.34 H 10/uL (2.00 - 6.90) #LYMPH 2.04 10/uL (0.60 - 3.40) #MONO 0.87 10/uL (0.00 - 0.90) #EOS 0.18 10/uL (0.00 - 0.70) #BASO 0.04 10/uL (0.00 - 0.20) #IG 0.04 10/uL (0.00 - 0.10) #NRBC 0.00 10/uL (0.00 - 0.00) MANUAL DIFF NOT INDICATED RBC MORPH NOT INDICATEDCMP: (RYAN: 07/07/2019 14:01) ( MsgRcvd 07/07/2019 14:42) Final results Test Result Flag Units (Reference) COMPREHENSIVE METABOLIC PANEL COMPREHENSIVE METABOLIC PANEL SODIUM 141 mEq/L (134 - 153) POTASSIUM 4.3 mEq/L (3.6 - 5.0) CHLORIDE 102 mEq/L (98 - 107) CO2 24 MEQ/L (22 - 30) GLUCOSE 120 H MG/DL (65 - 110) BUN 15 MG/DL (7 - 21) CREATININE 0.8 MG/DL (0.7 - 1.5) BUN/CREAT 19 (8 - 27) TOTAL PROTEIN 7.5 G/DL (6.3 - 8.2) ALBUMIN 4.8 G/DL (3.9 - 5.0) GLOBULIN 2.7 GM/DL (2.4 - 3.2) A/G RATIO 1.8 (0.8 - 2.0) CALCIUM 10.6 H MG/DL (8.4 - 10.2) TOTAL BILI 0.7 MG/DL (0.2 - 1.3) ALKALINE PHOS 55 U/L (38 - 126) SGOT/AST 26 U/L (5 - 40) SGPT/ALT 45 U/L (7 - 56) ANION GAP 15.0 mmol/L (8.0 - 16.0) AGE 63 yrs NON-AA GFR >60 mL/min AFR AMER GFR >60 mL/min Male GFR Interprentation 20-49 yrs >60 mL/min Xocyjj68-34 yrs >56 mL/min Normal 60-69 yrs >49 mL/min Normal 70-79yrs>42 mL/min Normal 80 and above >35 mL/min Normal Female GFRInterpretation 20-39 yrs >60 mL/min Normal 40-49 yrs >58 mL/minNormal 50-59 yrs >51 mL/min Normal 60-69 yrs >45 mL/min Wsiwss24-93 yrs >39 mL/min Normal 80 and above >32 mL/min NormalLactic Acid: (RYAN: 07/07/2019 14:01) ( MsgRcvd 07/07/2019 14:39) Final results Test Result Flag Units (Reference) LACTIC ACID 3.0 H MMOL/L (0.2 - 2.2)PT/PTT: (RYAN: 07/07/2019 14:01) ( MsgRcvd 07/07/2019 14:40) Final results Test Result Flag Units (Reference) PROTIME 12.5 SECONDS (11.0 - 15.5) INR 0.92 L (0.93 - 1.23) PTT 27.1 SECONDS (24.8 - 36.7) \\BLDo\\INR INTERPRETATION\\BLDx\\ Therapeutic range for Coumadin andrelated oral anticoagulants. -International Normalized Ratio (INR): 2.0 - 3.0 for VenousThrombosis, Pulmonary Embolus, Tissue heart valves, Acute MN Atrial Fibrillation, Valvular heart diseaseand recurrent Systemic Embolism. -International Normalized Ratio (INR): 2.5 - 3.5 forMechanical Prosthetic valve. \\BLDo\\PTT INTERPRETATION\\BLDx\\Critical results for patients not on therapy: >50 seconds Critical results for patients on therapy:>119 seconds Therapeutic range for patients on therapy: 58 - 90 seconds Coag studies fromline draws may not be accurate due to Heparin and other interferences.CRP: (RYAN: 07/07/2019 14:01) ( MsgRcvd 07/07/2019 14:40) Final results 4 Clinical Report - Physicians/Mid Levels [facility] Emergency Department [address] [place] [address] Phone #: ext- [phone] 07/07/2019 13:01 Patient: TOLU RATLIFF Sex: M : 1955 Age: 63y Test Result Flag Units (Reference) CRP-HS 1.00 MG/L (1.00 - 3.00) CDC/S HS-CRP CUT-OFF: RELATIVE RISK: <1.0 mg/L Low 1.0 - 3.0 mg/L Average >3.0 mg/L High Optimally, the average of HS-CRP results repeated two weeks apart should be used for risk assessment. Troponin-T: (RYAN: 07/07/2019 14:01) ( MsgRcvd 07/07/2019 14:41) Final results Test Result Flag Units (Reference) TROPONIN T 0.01 NG/ML (0.00 - 0.10) TROPONIN T0.1 ng/ml Recommended as the clinical threshold value Guadalupe Mancini.PROGRESS AND PROCEDURESArthrocentesis: Time: 15:26 07/07/2019. Left elbow. Discussed the procedure's benefits, risks andpossible complications including infection, bleeding and allergic reaction. Explained alternatives to theprocedure. Consent obtained. Prep done with chlorhexidine. Sterile technique used. Landmarksidentified and posterior approach taken. Joint aspirated using 18g nee dle. Less than 5 mL of bloody fluidobtained. Fluid sent for culture and sensitivity, gram stain, CBC and crystal analysis. Applied bandageand compression. No complications. Course of Care: 15:Jul 07 2019. Evaluation after observation. (Discussed Ortho follow up and pt is agreeable with dx and tx plan.). Patient counseled in person regarding the patient's stable condition, test results, diagnosis and need for follow-up. Patient agrees with plan of care. 15:Jul 07 2019. Disposition: Discharged home in good and improved condition (15:Jul 07 2019).CLINICAL IMPRESSION Traumatic left olecr anon bursitis.INSTRUCTIONS Wear elastic wrap (Taryn wrap) as directed for two weeks until better. Your Current Medications: Your current home medications have been reviewed. CONTINUE TAKING THE FOLLOWING MEDICATIONS: Aspirin Oral : Tablet Chewable 81 mg, 1 tablet daily. Atorvastatin Calcium Oral : Tablet 20 mg, 1 tablet daily. metFORMIN HCl Oral : Tablet 500 mg, 1 tablet daily. Multi Vitamin Daily Oral : 1 tablet daily. ProAir HFA Inhalation : Aerosol Solution 108 (90 Base) mcg/act, 2 puffs, prn. 5 Clinical Report - Physicians/Mid Levels [facility] Emergency Department [address] [place] [address] Phone #: ext- [phone] 07/07/2019 13:01 Patient: TOLU RATLIFF Sex: M : 1955 Age: 63y Serevent Diskus Inhalation : 2 puffs daily. Prescription Medications: Medrol (Chucky) 4 mg tablets in a dose pack Take 1 tablet as directed for 6 days -- start tomorrow AM. Dispense 1 pack. Refills: 0. Substitution permitted. [id number] [id number]. . Bactrim DS 800 mg-160 mg tablet Take 1 tablet twice a day for 10 days -- Dispense 20 tablet. Refills: 0. Substitution permitted. Pharmacy - [id number] - [address], [place] [id number]. FaxNumber: . Follow-up: Follow up with your doctor Monday. Call for an appointment. Reason for referral: evaluation, treatment and referral to Orthopedics for left elbow burisitis if no improvement.. Summary of care provided to patient. Understanding of the discharge instructions verbalized by patient.(Electronically signed by FABRIEC Pena 07/07/2019 17:59) Name Value Range Interpretation Code Description Data Shelly rce(s) Supporting Document(s) ID Date Data Source [id number] 07/07/2019 03:30:00 PM [facility] ([facility]) Name Value Range Interpretation Code Description Data Shelly rce(s) Supporting Document(s) Reported Physicians See Note Reported Physici ans MODE ([facility]) Note: Reported Physicians:Ordering: Sandy UMANAending: Liyah PANIAGUAulting: Alex TALAMANTES To: Azeb Young To: RACHEL PANIAGUAopy To: VinitaEsha ID Date Data Source [id number] 07/07/2019 03:30:00 PM EST [facility] ([facility]) Name Value Range Interpretation Code Description Data Shelly rce(s) Supporting Document(s) Bilirubin [Presence] in Peritoneal fluid NEG BILIRUBIN [facility] ([facility]) Note: Responsible Observer: () Blood [Presence] in Urine by Visual NEG BLOOD [facility] ([facility]) Note: Responsible Observer: () Clarity of Pleural fluid from Fetus clear CLARITY [facility] ([facility]) Note: Responsible Observer: () Color of Exudate from wound yellow COLOR [facility] ([facility]) Note: Responsible Observer: () Glucose [Mass/volume] in Urine collected for unspecified duration N ORM GLUCOSE [facility] ([facility]) Note: Responsible Observer: () KETONE NEG KETONE [facility] ([facility]) Note: Responsible Observer: () LEUK EST NEG LEUK EST [facility] ([facility]) Note: Responsible Observer: () MICROSCOPIC Not Indicate MICROSCOPIC [facility] ([facility]) Note: Responsible Observer: () Nitrite [Presence] in Urine by Test strip NEG NITRITE [facility] ([facility]) Note: Responsible Observer: () pH of Vaginal fluid by Test strip 5 pH [facility] ([facility]) Note: Responsible Observer: () Protein [Mass/volume] in Saliva (oral fluid) NEG PROTEIN [facility] ([facility]) Note: Responsible Observer: () SPEC GRAVITY 1.030 SPEC GRAVITY [facility] ([facility]) Note: Responsible Observer: () Urobilinogen [Presence] in Urine by Automated test strip NOR UROBILINOGEN [facility] ([facility]) Note: Responsible Observer: () SOURCE R SOURCE [facility] ([facility]) Note: Responsible Observer: () URINALYSIS See Note URINALYSIS [facility] ([facility]) Note: URINALYSISResponsible Observer : () ID Date Data Source [id number] 07/07/2019 03:53:00 PM [facility] Name Value Range Interpretation Code Description Data Shelly rce(s) Supporting Document(s) URINALYSIS [facility] yellow NORMAL: Yellow [facility] CLARITY clear NORMAL: Clear [facility] Specific gravity of Urine by Test strip 1.030 1.001 - 1.030 [facility] pH 5 5 - 9 [facility] Glucose [Mass/volume] in Urine by Test strip NORM NORMAL: Negat [facility] Bilirubin.total [Presence] in Urine by Test strip NEG NORMAL: Negative [facility] Ketones [Presence] in Urine by Test strip NEG NORMAL: Negative [facility] Protein [Mass/volume] in Urine by Test strip NEG NORMAL: Negat [facility] Nitrite [Presence] in Urine by Test strip NEG NORMAL: Negative [facility] BLOOD NEG NORMAL: Negative [facility] Leukocyte esterase [Presence] in Urine by Test strip NEG JOSE L: Negative [facility] Urobilinogen [Mass/volume] in Urine by Test strip NOR less madeleine n 1.0 mg/dL [facility] MICROSCOPIC Not Indicate [facility] ID Date Data Source [id number] 07/08/2019 09:43:00 AM [facility] CELIA @ [facility] NOTIFIED 07/08/19 @ 0900 RMMLE FT ELBOW BURSADoes the specimen need to be recollected?: YREASON REJECTED:: WRONG SWAB COLLECTEDTEST(S) ORDERED:: ANAEROBIC CULTURE LEFT ELBOW BURSA LEFT ELBOW BURSA Name Value Range Interpretation Code Description Data Shelly rce(s) Supporting Document(s) Laboratory ANAEROBIC CULTURE [facility] Laboratory studies (set) WRONG SWAB COLLECTED [facility] One or more of the tests that youordered cannot be performed.Please recollect, reorder and resubmit. ID Date Data Source [id number] 07/09/2019 07:21:00 AM [facility] CELIA @ [facility] NOTIFIED 07/08/19 @ 0900 RMMLE FT ELBOW BURSADoes the specimen need to be recollected?: YREASON REJECTED:: WRONG SWAB COLLECTEDTEST(S) ORDERED:: ANAEROBIC CULTURE LEFT ELBOW [facility]URSA LEFT ELBOW [facility]URSA Name Value Range Interpretation Code Description Data Shelly rce(s) Supporting Document(s) Gram stain result No organisms seen [facility] ID Date Data Source [id number] 07/12/2019 10:33:00 AM [facility] CELIA @ [facility] NOTIFIED 07/08/19 @ 0900 RMMLE FT ELBOW BURSADoes the specimen need to be recollected?: YREASON REJECTED:: WRONG SWAB COLLECTEDTEST(S) ORDERED:: ANAEROBIC CULTURE LEFT ELBOW BURSA LEFT ELBOW BURSA Name Value Range Interpretation Code Description Data Shelly rce(s) Supporting Document(s) Bacteria identified in Wound by Aerobe culture [facility] Culture results No growth at 4 days [facility] ID Date Data Source [id number] 07/07/2019 03:17:00 PM [facility] ([facility]) Name Value Range Interpretation Code Description Data Shelly rce(s) Supporting Document(s) Reported Physicians See Note Reported Terii karoline JOHNSON ([facility]) Note: Reported Physicians:Ordering: Sandy UMANAending: Liyah PANIAGUAulting: Alex TALAMANTES To: Azeb Young To: Trina PANIAGUA To: Esha Talamantes ID Date Data Source [id number] 07/07/2019 03:17:00 PM [facility] ([facility]) Name Value Range Interpretation Code Description Data Shelly rce(s) Supporting Document(s) GRAM STAIN See Note GRAM STAIN ELIZABETH ([facility]) Note: GRAM STAIN: TEST PERFORMED AT [facility] [address] [place] [address] CLIA# [id number] SEE SCANNED REPORT COMMENT: Respo nsible Observer: () ID Date Data Source [id number] 07/07/2019 03:17:00 PM EST ELIZABETH ([facility]) Name Value Range Interpretation Code Description Data Shelly rce(s) Supporting Document(s) Reported Physicians See Note Reported Physici ans MODE ([facility]) Note: Reported Physicians:Ordering: Sandy UMANAending: Liyah PANIAGUAulting: Alex TALAMANTES To: Azeb Young To: Trina PANIAGUA To: Esha Talamantes ID Date Data Source [id number] 07/07/2019 03:17:00 PM [facility] ([facility]) Name Value Range Interpretation Code Description Data Shelly rce(s) Supporting Document(s) CULTURE WOUND See Note CULTURE WOUND ELIZABETH ([facility]) Note: .WOUND CULTURE_{ SPECIM EN SOURCE : Result: TEST PERFORMED AT [address] [address] CLIA# [id number] SEE SCANNED REPORT Responsible Observer: (DW) ID Date Data Source [id number] 07/12/2019 02:08:00 PM EST [facility] Name Value Range Interpretation Code Description Data Shelly rce(s) Supporting Document(s) CULTURE WOUND [facility] spital .WOUND CULTURE_{ SPECIMEN SHELLY RCE : Result: TEST PERFORMED AT [address] [address] CLIA# [id number] SEE SCANNED REPORT ID Date Data Source [id number] 07/09/2019 01:14:00 PM [facility] Name Value Range Interpretation Code Description Data Shelly rce(s) Supporting Document(s) GRAM STAIN [facility] GRAM STAIN: TEST PERFORMED AT [address] [id number] BARRIE# [id number] SEE SCANNED REPORT COMMENT: ID Date Data Source [id number] 07/13/2019 10:38:00 AM [facility] [id number] Name Value Range Interpretation Code Description Data Shelly rce(s) Supporting Document(s) Bacteria identified in Blood by Culture [facility] NO GROWTH AFTER 5 DAYS ID Date Data Source [id number] 07/07/2019 02:56:00 PM [facility] ([facility]) Name Value Range Interpretation Code Description Data Shelly rce(s) Supporting Document(s) Reported Physicians See Note Reported Physici ans MODE ([facility]) Note: Reported Physicians:Ordering: Sandy UMANAending: Liyah PANIAGUAulting: Alex TALAMANTES To: Azeb Young To: Trina PANIAGUA To: Esha Talamantes ID Date Data Source [id number] 07/07/2019 02:56:00 PM [facility] ([facility]) Name Value Range Interpretation Code Description Data Shelly rce(s) Supporting Document(s) CULTURE BLOOD See Note CULTURE BLOOD MODE ([facility]) Note: _CULTURE BLOOD_ TEST P ERFORMED AT [address] [address] CLIA# [id number] SEE SCANNED REPORT{ PRELIMResponsible Observer: (GBT) ID Date Data Source [id number] 07/14/2019 03:41:00 AM [facility] Name Value Range Interpretation Code Description Data Shelly rce(s) Supporting Document(s) CULTURE BLOOD [facility] _CULTURE BLOOD_ TEST PERFORM ED AT [address] [address] CLIA# [id number] SEE SCANNED REPORT{ PRELIM ID Date Data Source [id number] 07/07/2019 02:01:00 PM EST ELIZABETH ([facility]) Name Value Range Interpretation Code Description Data Shelly rce(s) Supporting Document(s) Reported Physicians See Note Reported Physici ans MODE ([facility]) Note: Reported Physicians:Ordering: FAUSTINO UMANAAttending: VENERUS, BRYANConsulting: VINITA, JOCELYNCopy To: Faustino YoungCopninfa To: VENERUS, BRYANCopy To: V[place]a, Esha ID Date Data Source [id number] 07/07/2019 02:01:00 PM EST ELIZABETH ([facility]) Name Value Range Interpretation Code Description Data Shelly rce(s) Supporting Document(s) SED RATE 1 mm/hr SED RATE ELIZABETH ([facility]) Note: Responsible Observer: () SED RATE REENTER 1 SED RATE REENTER [facility] ([facility]) Note: Responsible Observer: () ID Date Data Source [id number] 07/07/2019 02:01:00 PM EST ELIZABETH ([facility]) Name Value Range Interpretation Code Description Data Shelly rce(s) Supporting Document(s) Reported Physicians See Note Reported Physici ans ELIZABETH ([facility]) Note: Reported Physicians:Ordering: CHRISTIANE UMANADEAttending: VENERUS, BRYANConsulting: VINITA, JOCELYNCopy To: Swatsworth, WadeCopy To: VENERUS, BRYANCopy To: Vinita, Esha ID Date Data Source [id number] 07/07/2019 02:01:00 PM EST MODE ([facility]) Name Value Range Interpretation Code Description Data Shelly rce(s) Supporting Document(s) LACTIC ACID 3.0 MMOL/L Above high normal LACTIC ACID [facility] ([facility]) Note: Responsible Observer: () ID Date Data Source [id number] 07/07/2019 02:01:00 PM EST ELIZABETH ([facility]) Name Value Range Interpretation Code Description Data Shelly rce(s) Supporting Document(s) Reported Physicians See Note Reported Physici ans MODE ([facility]) Note: Reported Physicians:Ordering: Sandy UMANAending: RACHEL PANIAGUAonsulting: Alex TALAMANTES To: Azeb Young To: Trina PANIAGUA To: Esha Talamantes ID Date Data Source [id number] 07/07/2019 02:01:00 PM EST MODE ([facility]) Name Value Range Interpretation Code Description Data [facility] rce(s) Supporting Document(s) INR in Blood by Coagulation assay 0.92 Below low nor mal INR MODE ([facility]) Note: Responsible Observer: () PROTIME 12.5 SECONDS PROTIME MODE ([facility]) Note: Responsible Observer: () PTT 27.1 SECONDS PTT MODE ([facility]) Note: \\BLD o\\INR INTERPRETATION\\BLDx Therapeutic range for Coumadin and related oral anticoagulants. - International Normalized Ratio (INR): 2.0 - 3.0 for Venous Thrombosis, Pulmonary Embolus, Tissue heart valves, Acute MN Atrial Fibrillation, Valvular heart disease and recurrent Systemic Embolism. - International Normalized Ratio (INR): 2.5 - 3.5 for Mechanical Prosthetic valve. \\BLDo\\PTT INTERPRETATION\\BLDx Critical results for patients not on therapy: >50 seconds Critical results for patients on therapy: >119 seconds Therapeutic range for patients on therapy: 58 - 90 seconds Coag gal dies from line draws may not be accurate due to Heparin and other interferences.Responsible Observer: () ID Date Data Source [id number] 07/07/2019 02:01:00 PM EST ELIZABETH ([facility]) Name Value Range Interpretation Code Description Data Shelly rce(s) Supporting Document(s) Reported Physicians See Note Reported Physici ans ELIZABETH ([facility]) Note: Reported Physicians:Ordering: Sandy UMANAending: VENERUS, BRYANConsulting: VINITA, JOCELYNCopy To: Azeb Young To: VENERUS, BRYANCopy To: Vinita, Esha ID Date Data Source [id number] 07/07/2019 02:01:00 PM EST ELIZABETH ([facility]) Name Value Range Interpretation Code Description Data Shelly rce(s) Supporting Document(s) #BASO 0.04 10\\^3/uL #BASO ELIZABETH ([facility]) Note: Responsible Observer: () #EOS 0.18 10\\^3/uL #EOS ELIZABETH ([facility]) Note: Responsible Observer: () #IG 0.04 10\\^3/uL #IG ELIZABETH ([facility]) Note: Responsible Observer: () #LYMPH 2.04 10\\^3/uL #LYMPH ELIZABETH ([facility]) Note: Responsible Observer: () #MONO 0.87 10\\^3/uL #MONO ELIZABETH ([facility]) Note: Responsible Observer: () #NEUT 8.34 10\\^3/uL Above high normal #NEUT [place]REE NWAY ([facility]) Note: Responsible Observer: () #NRBC 0.00 10\\^3/uL #NRBC ELIZABETH ([facility]) Note: Responsible Observer: () %NRBC 0.0 % %NRBC ELIZABETH ([facility]) Note: Responsible Observer: () %IG 0.3 % Above high normal %IG ELIZABETH ([facility]) Note: Responsible Observer: () CBC W/AUTOMATED DIFF See Note CBC W/AUTOMATED DIFF ELIZABETH ([facility]) Note: COMPLETE BLOOD COUNTResponsibl e Observer: () BASO 0.3 % BASO ELIZABETH ([facility]) Note: Responsible Observer: () EOS 1.6 % EOS ELIZABETH ([facility]) Note: Responsible Observer: () Hematocrit [Pure volume fraction] of Blood by Automated count 47.4 % HEMATOCRIT MODE ([facility]) Note: Responsible Observer: () LYMPH 17.7 % Below low normal LYMPH MODE ([facility]) Note: Responsible Observer: () Hemoglobin [Mass/volume] in Mixed venous blood by Oximetry 15.9 g/d L HEMOGLOBIN ELIZABETH ([facility]) Note: Responsible Observer: () MANUAL DIFF NOT INDICATED MANUAL DIFF MODE ([facility]) Note: Responsible Observer: () MCH 30.4 pg MCH MODE ([facility]) Note: Responsible Observer: SUSAN) MCHC 33.5 g/dL MCHC MODE ([facility]) Note: Responsible Observer: () MCV 90.6 fL MCV MODE ([facility]) Note: Responsible Observer: () MONO 7.6 % MONO MODE ([facility]) Note: Responsible Observer: () NEUT 72.5 % NEUT MODE ([facility]) Note: Responsible Observer: () MPV 9.2 fL MPV MODE ([facility]) Note: Responsible Observer: () Platelets [#/area] in Blood by Microscopy high power field 217 10\\^ 3/uL PLATELETS MODE ([facility]) Note: Responsible Observer: () RBC 5.23 10\\^6/uL RBC MODE ([facility]) Note: Responsible Observer: () RBC MORPH NOT INDICATED RBC MORPH ELIZABETH ([facility]) Note: Responsible Observer: () RDW 12.8 % RDW MODE ([facility]) Note: Responsible Observer: () WBC 11.5 10\\^3/uL Above high normal WBC GREE [facility] ([facility]) Note: Responsible Observer: SUSAN) ID Date Data Source [id number] 07/07/2019 02:01:00 PM EST ELIZABETH ([facility]) Name Value Range Interpretation Code Description Data Shelly rce(s) Supporting Document(s) Reported Physicians See Note Reported [facility] ans MODE ([facility]) Note: Reported Physicians:Ordering: CHRISTIANE UMANADEAttending: VENERUS, BRYANConsulting: VINITA, JOCELYNCopy To: BetoworthChristianedeCopy To: VENERUS, BRYANCopy To: Vinita, Esha ID Date Data Source [id number] 07/07/2019 02:01:00 PM EST ELIZABETH ([facility]) Name Value Range Interpretation Code Description Data Shelly rce(s) Supporting Document(s) TROPONIN T 0.01 NG/ML TROPONIN T MODE ([facility]) Note: TROPONIN T0.1 ng/ml Recommended as the clinical threshold value forTroponin T.Responsible Observer: () ID Date Data Source [id number] 07/07/2019 02:01:00 PM EST ELIZABETH ([facility]) Name Value Range Interpretation Code Description Data Shelly rce(s) Supporting Document(s) Reported Physicians See Note Reported Physic ans MODE ([facility]) Note: Reported Physicians:Ordering: FAUSTINO UMANAAttending: VENERUS, BRYANConsulting: VINITA, JOCELYNCopy To: Christiane YoungdeCopy To: VENERUS, BRYANCopy To: Vinita Esha ID Date Data Source [id number] 07/07/2019 02:01:00 PM EST ELIZABETH ([facility]) Name Value Range Interpretation Code Description Data Shelly rce(s) Supporting Document(s) A/G RATIO 1.8 A/G RATIO MODE ([facility]) Note: Responsible Observer: () AFR AMER GFR >60 mL/min AFR AMER GFR MODE ([facility]) Note: Male GFR Interprentation 20- 49 yrs >60 mL/min Normal 50-59 yrs >56 mL/min Normal 60-69 yrs >49 mL/min Normal 70- 79yrs >42 mL/min Normal 80 and above >35 mL/min Normal Female GFR Interpretation 20-39 yrs >60 mL/min Normal 40-49 yrs >58 mL/min Normal 50-59 yrs >51 mL/min Normal 60-69 yrs >45 mL/min Normal 70-79 yrs >39 mL/min Normal 80 and above >32 mL/min NormalResponsible Observer: () 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 63 yrs AGE MODE ([facility]) Note: Responsible Observer: () Albumin [Mass/volume] in Blood by Bromocresol purple ( BCP) dye binding method 4.8 G/DL ALBUMIN MODE ([facility]) Note: Responsible Observer: () ALKALINE PHOS 55 U/L ALKALINE PHOS MODE ([facility]) Note: Responsible Observer: () BUN 15 MG/DL BUN MODE ([facility]) Note: Responsible Observer: () Anion gap in Body fluid 15.0 mmol/L ANION GAP MODE ([facility]) Note: Responsible Observer: () BUN/CREAT 19 BUN/CREAT MODE ([facility]) Note: Responsible Observer: () Calcium [Moles/volume] in Urine collected for unspecified durati on 10.6 MG/DL Above high normal CALCIUM MODE ([facility]) Note: Responsible Observer: () Chloride [Moles/volume] in Serum, Plasma or Blood 102 mEq/L CHLORIDE MODE ([facility]) Note: Responsible Observer: () CO2 24 MEQ/L CO2 MODE ([facility]) Note: Responsible Observer: () COMPREHENSIVE METABOLIC PANEL See Note COMPRE HENSIVE METABOLIC PANEL MODE ([facility]) Note: COMPREHENSIVE METABOLIC PANELR esponsible Observer: () Creatinine [Moles/volume] in Vitreous fluid 0.8 MG/DL CREATININE MODE ([facility]) Note: Responsible Observer: () Globulin [Mass/time] in 24 hour Urine 2.7 GM/DL GLOBULIN MODE ([facility]) Note: Responsible Observer: () Glucose [Mass/volume] in Urine collected for unspecified duratio n 120 MG/DL Above high normal GLUCOSE MODE ([facility]) Note: Responsible Observer: () NON-AA GFR >60 mL/min NON-AA GFR MODE ([facility]) Note: Responsible Observer: () Potassium [Mass/volume] in Blood 4.3 mEq/L POT ASSIUM MODE ([facility]) Note: Responsible Observer: () SGOT/AST 26 U/L SGOT/AST MODE ([facility]) Note: Responsible Observer: () Sodium [Moles/volume] in Serum, Plasma or Blood 141 mEq/L SODIUM MODE ([facility]) Note: Responsible Observer: () SGPT/ALT 45 U/L SGPT/ALT MODE ([facility]) Note: Responsible Observer: () TOTAL BILI 0.7 MG/DL TOTAL BILI ELIZABETH ([facility]) Note: Responsible Observer: () TOTAL PROTEIN 7.5 G/DL TOTAL PROTEIN MODE ([facility]) Note: Responsible Observer: () ID Date Data Source [id number] 07/07/2019 02:01:00 PM EST MODE ([facility]) Name Value Range Interpretation Code Description Data Shelly rce(s) Supporting Document(s) Reported Physicians See Note Reported Physici ans MODE ([facility]) Note: Reported Physicians:Ordering: Sandy UMANAending: RACHEL PANIAGUAonsulting: Alex TALAMANTES To: Azeb Young To: YUSEF PANIAGUAANCopy To: Esha Talamantes ID Date Data Source [id number] 07/07/2019 02:01:00 PM EST MODE ([facility]) Name Value Range Interpretation Code Description Data Shelly rce(s) Supporting Document(s) CRP-HS 1.00 MG/L CRP-HS MODE ([facility]) Note: CDC/S HS-CRP CUT-OFF : RELATIVE RISK: <1.0 mg/L Low 1.0 - 3.0 mg/L Average >3.0 mg/L High Optimally, the average of HS-CRP results repeated two weeks apart should be used for risk assessment.Responsible Observer: () ID Date Data Source [id number] 07/07/2019 02:01:00 PM [facility] ([facility]) Name Value Range Interpretation Code Description Data Shelly rce(s) Supporting Document(s) Reported Physicians See Note Reported Physici ans MODE ([facility]) Note: Reported Physicians:Ordering: FAUSTINO UMANAAttending: VENERUS, BRYANConsulting: VINITA, JOCELYNCopy To: Faustino YoungCopninfa To: MACARIOS BRYANCopy To: Vinita Esha ID Date Data Source [id number] 07/07/2019 02:01:00 PM [facility] ([facility]) Name Value Range Interpretation Code Description Data Shelly rce(s) Supporting Document(s) CULTURE BLOOD See Note CULTURE BLOOD MODE ([facility]) Note: _CULTURE BLOOD_ [place] [address] CLIA# [id number] SEE SCANNED REPORT{ PRELIMResponsible Observer: (GBT) ID Date Data Source [id number] 07/14/2019 03:40:00 AM [facility] Value Range Interpretation Code Description Data Shelly rce(s) Supporting Document(s) CULTURE BLOOD [facility] _CULTURE BLOOD_ [place] [address] CLIA# [id number] SEE SCANNED REPORT{ PRELIM ID Date Data Source [id number] 07/07/2019 04:00:00 PM [facility] Name Value Range Interpretation Code Description Data Shelly rce(s) Supporting Document(s) Erythrocyte sedimentation rate by Westergren method 1 mm/hr 0 - 20 [facility] SED RATE REENTER 1 [facility] ID Date Data Source [id number] 07/07/2019 02:42:00 PM [facility] Name Value Range Interpretation Code Description Data Shelly rce(s) Supporting Document(s) COMPREHENSIVE METABOLIC PANEL [facility] COMPREHENSIVE METABOLIC PANEL Sodium [Moles/volume] in Serum or Plasma 141 mEq/L 134 - 153 [facility] Potassium [Moles/volume] in Serum or Plasma 4.3 mEq/L 3.6 - 5.0 [facility] Chloride [Moles/volume] in Serum or Plasma 102 mEq/L 98 - 107 [facility] Carbon dioxide, total [Moles/volume] in Serum or Plasma 24 MEQ/L 22 - 30 [facility] Glucose [Mass/volume] in Serum or Plasma 120 MG/DL 65 - 110 H [facility] BUN 15 MG/DL 7 - 21 [facility] al Creatinine [Mass/volume] in Serum or Plasma 0.8 MG/DL 0.7 - 1.5 [facility] BUN/CREAT 19 8 - 27 [facility] Protein [Mass/volume] in Serum or Plasma 7.5 G/DL 6.3 - 8.2 [facility] Albumin [Mass/volume] in Serum or Plasma 4.8 G/DL 3.9 - 5.0 [facility] Globulin [Mass/volume] in Serum by calculation 2.7 GM/DL 2.4 - 3.2 [facility] A/G RATIO 1.8 0.8 - 2.0 [facility] Calcium [Mass/volume] in Serum or Plasma 10.6 MG/DL 8.4 - 10.2 H [facility] Bilirubin.total [Mass/volume] in Serum or Plasma 0.7 MG/DL 0.2 - 1.3 [facility] Alkaline phosphatase [Enzymatic activity/volume] in Serum or Plasma 55 U/L 38 - 126 [facility] Aspartate aminotransferase [Enzymatic activity/volume] in Serum or Plasma 26 U/L 5 - 40 [facility] Alanine aminotransferase [Enzymatic activity/volume] in Seru m or Plasma 45 U/L 7 - 56 [facility] Anion gap 3 in Serum or Plasma 15.0 mmol/L 8.0 - 16.0 [facility] AGE 63 yrs [facility] al NON-AA GFR >60 mL/min [facility] ital AFR AMER GFR >60 mL/min [facility] Male GFR In terprentation 20-49 yrs >60 mL/min Normal 50-59 yrs >56 mL/min Normal 60-69 yrs >49 mL/min Normal 70-79yrs >42 mL/min Normal 80 and above >35 mL/min Normal Female GFR Interpretation 20-39 yrs >60 mL/min Normal 40-49 yrs >58 mL/min Normal 50-59 yrs >51 mL/min Normal 60-69 yrs >45 mL/min Normal 70-79 yrs >39 mL/min Normal 80 and above >32 mL/min Normal ID Date Data Source [id number] 07/07/2019 02:41:00 PM EST [facility] Name Value Range Interpretation Code Description Data Shelly rce(s) Supporting Document(s) CBC W/AUTOMATED DIFF [facility] COMPLETE BLOOD COUNT Leukocytes [#/volume] in Blood by Automated count 11.5 10^3/uL 4.2 - 11.0 H [facility] Erythrocytes [#/volume] in Blood by Automated count 5.23 10^6/uL 4. 50 - 6.30 [facility] Hemoglobin [Mass/volume] in Blood 15.9 g/dL 14.0 - 16.0 [facility] Hematocrit [Volume Fraction] of Blood by Automated count 47.4 % 4 1.0 - 51.0 [facility] Erythrocyte mean corpuscular volume [Entitic volume] by Auto mated count 90.6 fL 80.0 - 94.0 [facility] Erythrocyte mean corpuscular hemoglobin [Entitic mass] by Automated count 30.4 pg 27.0 - 34.0 [facility] Erythrocyte mean corpuscular hemoglobin concentration [Mass/volume] by Automated count 33.5 g/dL 31.0 - 36.0 [facility] Erythrocyte distribution width [Ratio] by Automated count 12.8 % 11.5 - 14.8 [facility] Platelets [#/volume] in Blood by Automated count 217 10^3/uL 150 - 45 0 [facility] Platelet mean volume [Entitic volume] in Blood by Automated count 9.2 fL 7.4 - 10.4 [facility] Neutrophils/100 leukocytes in Blood by Automated count 72.5 % 37. 0 - 80.0 [facility] Lymphocytes/100 leukocytes in Blood by Manual count 17.7 % 25.0 - 40.0 L [facility] Monocytes/100 leukocytes in Blood by Automated count 7.6 % 3.0 - 8.0 [facility] Eosinophils/100 leukocytes in Blood by Automated count 1.6 % 0.0 - 7.0 [facility] Basophils/100 leukocytes in Blood by Automated count 0.3 % 0.0 - 2.0 [facility] %IG 0.3 % 0.0 - 0.0 H [facility] al %NRBC 0.0 % 0.0 - 0.0 [facility] al Neutrophils [#/volume] in Blood by Automated count 8.34 10^3/uL 2.00 - 6.90 H [facility] Lymphocytes [#/volume] in Blood by Automated count 2.04 10^3/uL 0.60 - 3.40 [facility] Monocytes [#/volume] in Blood by Automated count 0.87 10^3/uL 0.00 - 0.90 [facility] Eosinophils [#/volume] in Blood by Automated count 0.18 10^3/uL 0.00 - 0.70 [facility] Basophils [#/volume] in Blood by Automated count 0.04 10^3/uL 0.00 - 0.20 [facility] #IG 0.04 10^3/uL 0.00 - 0.10 [facility] #NRBC 0.00 10^3/uL 0.00 - 0.00 [facility] MANUAL DIFF NOT INDICATED [facility] RBC MORPH NOT INDICATED [facility] spital ID Date Data Source [id number] 07/07/2019 02:40:00 PM [facility] Name Value Range Interpretation Code Description Data Shelly rce(s) Supporting Document(s) TROPONIN T 0.01 NG/ML 0.00 - 0.10 [facility] spital TROPONIN T0.1 ng/ml Recommended as the c linical threshold value forTroponin T. ID Date Data Source [id number] 07/07/2019 02:40:00 PM [facility] Name Value Range Interpretation Code Description Data Shelly rce(s) Supporting Document(s) C reactive protein [Mass/volume] in Serum or Plasma by High sensitivity method 1.00 MG/L 1.00 - 3.00 [facility] HS-CRP CUT-OFF: RELATIVE RISK: <1.0 mg/L Low 1.0 - 3.0 mg/L Average >3.0 mg/L High Optimally, the average of HS-CRP results repeated two weeks apart should be used for risk assessment. ID Date Data Source [id number] 07/07/2019 02:40:00 PM [facility] Name Value Range Interpretation Code Description Data Shelly rce(s) Supporting Document(s) Prothrombin time (PT) 12.5 SECONDS 11.0 - 15.5 [facility] INR in Platelet poor plasma by Coagulation assay 0.92 0.93 - 1. 23 L [facility] aPTT in Blood by Coagulation assay 27.1 SECONDS 24.8 - 36.7 [facility] \\BLDo\\INR INTERPRETATION\\BLDx\\ Therapeutic range for Coumadin and related oral anticoagulants. - International Normalized Ratio (INR): 2.0 - 3.0 for Venous Thrombosis, Pulmonary Embolus, Tissue heart valves, Acute [place] Atrial Fibrillation, Valvular heart disease and recurrent Systemic Embolism. - International Normalized Ratio (INR): 2.5 - 3.5 for Mechanical Prosthetic valve. \\BLDo\\PTT INTERPRETATION\\BLDx\\ Critical results for patients not on therapy: >50 seconds Critical results for patients on therapy: >119 seconds Therapeutic range for patients on therapy: 58 - 90 seconds Coag gal dies from line draws may not be accurate due to Heparin and other interferences. ID Date Data Source [id number] 07/07/2019 02:39:00 PM [facility] Name Value Range Interpretation Code Description Data Shelly rce(s) Supporting Document(s) Lactate [Moles/volume] in Serum or Plasma 3.0 MMOL/L 0.2 - 2.2 H [facility] ID Date Data Source [id number] 06/25/2019 12:00:00 AM EST MODE ([facility]) Name Value Range Interpretation Code Description Data Shelly rce(s) Supporting Document(s) Hemoglobin A1c/Hemoglobin.total in Blood 6.5 Abnormal (applies to non-numeric results) HbA1C MODE ([facility]) ID Date Data Source [id number] 06/25/2019 12:00:00 AM EST ELIZABETH ([facility]) Name Value Range Interpretation Code Description Data Shelly rce(s) Supporting Document(s) Glucose [Mass/volume] in Urine collected for unspecified duration 1 16 Normal Glucose ELIZABETH ([facility]) Procedure Social History Code Duration Value Status Description Data Source(s ) Smoking 07/02/2020 12:00:00 AM EST Patient is a former smoker completed Patient is a former smoker DALILA ([facility], ) Alcohol intake 05/28/2020 12:00:00 AM EST Yes completed [facility] Cigarette pack-years 05/28/2020 12:00:00 AM EST UNK completed [facility] Cigarettes smoked current (pack per day) - Reported 05/28/20 12:00:00 AM EST UNK completed [facility] Smoking 05/28/2020 12:00:00 AM EST Former smoker completed Former smoker [facility] 04/12/2020 09:42:24 AM EDT Current some day smoker com pleted Current some day smoker [facility] Smoking 04/12/2020 09:42:00 AM EDT Current some day smoker com pleted Current some day smoker [facility] 04/11/2020 05:52:00 PM EDT Current every day smoker co mpleted Current every day smoker [facility] Smoking 04/11/2020 05:52:00 PM EDT Current every day smoker co mpleted Current every day smoker [facility] 05/19/2019 12:00:00 AM EST Cigarette Smoker completed Cig arette Smoker [facility] 05/19/2019 12:00:00 AM EST Current smoker completed Curre nt smoker [facility] Vital Signs ID Date Data Source UNK Name Value Range Interpretation Code Description Data Source(s) Body surface area Derived from formula 2.06 m2 2.06 m2 DALILA ([facility], ) Body weight 86.184 kg 86.184 kg DALILA ([facility], ) [place] body weight 172 [lb_av] 172 [lb_av] MEDEN T ([facility], ) Body mass index (BMI) [Ratio] 26.5 kg/m2 26.5 k g/m2 [facility] ([facility]) Body weight 190.00 [lb_av] 190.00 [lb_av] [facility] Body height 71 [in_i] 71 [in_i] [facility] ([facility]) 5'11" Oxygen saturation in Arterial blood by Pulse oximetry 94 % 94 % [facility] ([facility]) Room Air Heart rate 90 /min 90 /min [facility] ([facility]) Diastolic blood pressure 72 mm[Hg] 72 mm[Hg] [facility] ([facility]) Systolic blood pressure 140 mm[Hg] 140 mm[Hg] [facility] ([facility]) Body surface area Derived from formula 2.03 m2 2.03 m2 [facility] ([facility]) Body weight 82.555 kg 82.555 kg [facility] ([facility]) [place] body weight 172 [lb_av] 172 [lb_av] [facility] Body mass index (BMI) [Ratio] 25.4 kg/m2 25.4 k g/m2 [facility] ([facility]) Body weight 182.00 [lb_av] 182.00 [lb_av] [facility] Body height 71 [in_i] 71 [in_i] [facility] ([facility]) 5'11" Oxygen saturation in Arterial blood by Pulse oximetry 93 % 93 % [facility] ([facility]) Room Air Heart rate 86 /min 86 /min [facility] ([facility]) Diastolic blood pressure 70 mm[Hg] 70 mm[Hg] [facility] ([facility]) Systolic blood pressure 130 mm[Hg] 130 mm[Hg] [facility] ([facility]) Body weight 88.452 kg 88.452 kg [facility] ([facility]) Body weight 195.00 [lb_av] 195.00 [lb_av] [facility] Oxygen saturation in Arterial blood by Pulse oximetry 85 % 85 % [facility] ([facility], ) 88 ra Heart rate 71 /min 71 /min [facility] ([facility], ) Diastolic blood pressure 78 mm[Hg] 78 mm[Hg] [facility] ([facility], ) Systolic blood pressure 130 mm[Hg] 130 mm[Hg] [facility] Oxygen saturation in Arterial blood by Pulse oximetry 92 % 92 % [facility] Body mass index (BMI) [Ratio] 26.36 kg/m2 26.36 kg/m2 [facility] Body weight 85.73 kg 85.73 kg [facility] Body height 180.3 cm 180.3 cm [facility] Heart rate 96 /min 96 /min [facility] Diastolic blood pressure 94 mm[Hg] 94 mm[Hg] [facility] Systolic blood pressure 162 mm[Hg] 162 mm[Hg] [facility] Inhaled oxygen concentration 21 % 21 % MODE ([facility]) Inhaled oxygen flow rate 0 L/min 0 L/min MODE ([facility]) Oxygen saturation in Arterial blood by Pulse oximetry 92 % 92 % MODE ([facility]) Body surface area Derived from formula 2.06 m2 2.06 m2 MODE ([facility]) Body mass index (BMI) [Ratio] 26.5 kg/m2 26.5 k g/m2 MODE ([facility]) Body weight 190 [lb_av] 190 [lb_av] MODE ([facility]) Body height 71 [in_i] 71 [in_i] MODE ([facility]) Body temperature 97.9 [degF] 97.9 [degF] [facility] ([facility]) Respiratory rate 24 /min 24 /min MODE ([facility]) Heart rate 68 /min 68 /min [facility] Diastolic blood pressure 68 mm[Hg] 68 mm[Hg] MODE ([facility]) Systolic blood pressure 128 mm[Hg] 128 mm[Hg] [facility] ([facility]) Inhaled oxygen concentration 21 % 21 % MODE ([facility]) O2 with mask 84% without mask went to 95% Inhaled oxygen flow rate 0 L/min 0 L/min MODE ([facility]) O2 with mask 84% without mask went to 95% Oxygen saturation in Arterial blood by Pulse oximetry 84 % 84 % MODE ([facility]) O2 with mask 84% without mask went to 95% Body surface area Derived from formula 2.07 m2 2.07 m2 MODE ([facility]) O2 with mask 84% without mask went to 95% Body mass index (BMI) [Ratio] 26.6 kg/m2 26.6 k g/m2 MODE ([facility]) O2 with mask 84% without mask went to 95% Body weight 191 [lb_av] 191 [lb_av] MODE ([facility]) O2 with mask 84% without mask went to 95% Body height 71 [in_i] 71 [in_i] MODE ([facility]) O2 with mask 84% without mask went to 95% Body temperature 97.6 [degF] 97.6 [degF] [facility] ([facility]) O2 with mask 84% without mask went to 95% Respiratory rate 24 /min 24 /min MODE ([facility]) O2 with mask 84% without mask went to 95% Heart rate 91 /min 91 /min MODE ([facility]) O2 with mask 84% without mask went to 95% Diastolic blood pressure 82 mm[Hg] 82 mm[Hg] MODE ([facility]) O2 with mask 84% without mask went to 95% Systolic blood pressure 132 mm[Hg] 132 mm[Hg] [facility] ([facility]) O2 with mask 84% without mask went to 95% Inhaled oxygen concentration 21 % 21 % MODE ([facility]) Inhaled oxygen flow rate 0 L/min 0 L/min MODE ([facility]) Oxygen saturation in Arterial blood by Pulse oximetry 94 % 94 % MODE ([facility]) Body surface area Derived from formula 2.07 m2 2.07 m2 MODE ([facility]) Body mass index (BMI) [Ratio] 26.6 kg/m2 26.6 k g/m2 MODE ([facility]) Body weight 191 [lb_av] 191 [lb_av] MODE ([facility]) Body height 71 [in_i] 71 [in_i] MODE ([facility]) Body temperature 97.1 [degF] 97.1 [degF] [facility] ([facility]) Respiratory rate 24 /min 24 /min MODE ([facility]) Heart rate 84 /min 84 /min MODE ([facility]) Diastolic blood pressure 86 mm[Hg] 86 mm[Hg] MODE ([facility]) Systolic blood pressure 134 mm[Hg] 134 mm[Hg] [facility] ([facility]) Inhaled oxygen concentration 21 % 21 % MODE ([facility]) Inhaled oxygen flow rate 0 L/min 0 L/min MODE ([facility]) Oxygen saturation in Arterial blood by Pulse oximetry 97 % 97 % MODE ([facility]) Body surface area Derived from formula 2.10 m2 2.10 m2 MODE ([facility]) Body mass index (BMI) [Ratio] 27.8 kg/m2 27.8 k g/m2 MODE ([facility]) Body weight 199 [lb_av] 199 [lb_av] MODE ([facility]) Body height 71 [in_i] 71 [in_i] MODE ([facility]) Body temperature 97.8 [degF] 97.8 [degF] [facility] ([facility]) Respiratory rate 24 /min 24 /min MODE ([facility]) Heart rate 90 /min 90 /min MODE ([facility]) Diastolic blood pressure 78 mm[Hg] 78 mm[Hg] MODE ([facility]) Systolic blood pressure 134 mm[Hg] 134 mm[Hg] [facility] ([facility]) Inhaled oxygen concentration 21 % 21 % MODE ([facility]) Inhaled oxygen flow rate 0 L/min 0 L/min MODE ([facility]) Oxygen saturation in Arterial blood by Pulse oximetry 97 % 97 % MODE ([facility]) Body surface area Derived from formula 2.12 m2 2.12 m2 MODE ([facility]) Body mass index (BMI) [Ratio] 28.3 kg/m2 28.3 k g/m2 MODE ([facility]) Body weight 203 [lb_av] 203 [lb_av] MODE ([facility]) Body height 71 [in_i] 71 [in_i] MODE ([facility]) Body temperature 97.8 [degF] 97.8 [degF] [facility] ([facility]) Respiratory rate 24 /min 24 /min MODE ([facility]) Heart rate 97 /min 97 /min MODE ([facility]) Diastolic blood pressure 76 mm[Hg] 76 mm[Hg] MODE ([facility]) Systolic blood pressure 132 mm[Hg] 132 mm[Hg] [facility]) Inhaled oxygen concentration 21 % 21 % MODE ([facility]) Inhaled oxygen flow rate 0 L/min 0 L/min MODE ([facility]) Oxygen saturation in Arterial blood by Pulse oximetry 98 % 98 % MODE ([facility]) Body surface area Derived from formula 2.07 m2 2.07 m2 MODE ([facility]) Body mass index (BMI) [Ratio] 26.6 kg/m2 26.6 k g/m2 MODE ([facility]) Body weight 191 [lb_av] 191 [lb_av] MODE ([facility]) Body height 71 [in_i] 71 [in_i] MODE ([facility]) Body temperature 97.8 [degF] 97.8 [degF] [facility] ([facility]) Respiratory rate 24 /min 24 /min MODE ([facility]) Heart rate 86 /min 86 /min MODE ([facility]) Diastolic blood pressure 72 mm[Hg] 72 mm[Hg] MODE ([facility]) Systolic blood pressure 124 mm[Hg] 124 mm[Hg] [facility]) Patient Treatment Plan of Care Planned Activity Planned Date Details Description Data Source (s) Albuterol 0.833 MG/ML / Ipratropium [place] 0.167 MG/M L Inhalant Solution 05/20/2020 12:00:00 AM [facility] Metformin hydrochloride 500 MG Oral Tablet 05/20/2020 12:00:00 AM E [facility] Metformin hydrochloride 500 MG Oral Tablet 05/20/2020 12:00:00 AM E [facility]) atorvastatin 20 MG Oral Tablet 05/20/2020 12:00:[address] [facility]) 60 ACTUAT Budesonide 0.16 MG/ACTUAT / fo rmoterol fumarate 0.0045 MG/ACTUAT Metered Dose Inhaler [Symbicort] 05/20/2020 12:00:[address] [facility]) 200 ACTUAT Albuterol 0.09 MG/ACTUAT Metered Dose Inhal er [ProAir] 05/20/2020 12:00:00 AM [facility] ([facility]) Lisinopril 5 MG Oral Tablet 05/20/2020 12:00:[address] [facility]) Triamcinolone Acetonide 1 MG/ML Topical Lotion 05/20/2020 12:00:[address] [facility]) Lancets Ultra Fine Miscellaneous 05/20/2020 12:00:[address] [facility]) IGlucose Test Strips In Vitro 05/20/2020 12:00:[address] [facility]) Lisinopril 5 MG Oral Tablet 05/19/2020 12:00:00 AM [facility] Lisinopril 5 MG Oral Tablet 05/17/2020 12:00:[address] [facility]) Prednisone 10 MG Oral Tablet 05/07/2020 12:00:[address] [facility]) doxycycline hyclate 100 MG Oral Capsule 05/06/2020 12:00:[address] [facility]) 60 ACTUAT Budesonide 0.16 MG/ACTUAT / fo rmoterol fumarate 0.0045 MG/ACTUAT Metered Dose Inhaler [Symbicort] 04/22/2020 12:00:[address] [facility]) atorvastatin 20 MG Oral Tablet 04/22/2020 12:00:[address] [facility]) Metformin hydrochloride 500 MG Oral Tablet 04/22/2020 12:00:00 AM E [facility] ([facility]) Lisinopril 5 MG Oral Tablet 04/22/2020 12:00:[address] [facility]) 200 ACTUAT Albuterol 0.09 MG/ACTUAT Metered Dose Inhal er [ProAir] 04/22/2020 12:00:00 AM [facility]) 60 ACTUAT Budesonide 0.16 MG/ACTUAT / fo rmoterol fumarate 0.0045 MG/ACTUAT Metered Dose Inhaler [Symbicort] [facility] MG Oral Tablet 11/20/2019 12:00:00 AM [facility]) 200 ACTUAT Albuterol 0.09 MG/ACTUAT Metered Dose Inhal er [ProAir] 10/24/2019 12:00:00 AM [facility] ([facility]) atorvastatin 20 MG Oral Tablet 08/20/2019 12:00:[address] [facility]) IGlucose Test Strips In Vitro 08/20/2019 12:00:[address] [facility]) Lancets Ultra Fine Miscellaneous 08/20/2019 12:00:00 AM [facility] ([facility]) Metformin hydrochloride 500 MG Oral Tablet 08/20/2019 12:00:00 AM E [facility] ([facility]) 60 ACTUAT Budesonide 0.16 MG/ACTUAT / fo rmoterol fumarate 0.0045 MG/ACTUAT Metered Dose Inhaler [Symbicort] 08/20/2019 12:00:[address] [facility]) 200 ACTUAT Albuterol 0.09 MG/ACTUAT Metered Dose Inhal er [ProAir] 08/20/2019 12:00:00 AM [facility] ([facility]) Triamcinolone Acetonide 1 MG/ML Topical Lotion 08/20/2019 12:00:[address] [facility]) Lisinopril 5 MG Oral Tablet 08/20/2019 12:00:[address] [facility]) 5000 MG Testosterone 0.01 MG/MG Topical Gel [Androgel] 08/20/2019 12:00:00 AM [facility]) atorvastatin 20 MG Oral Tablet 06/25/2019 12:00:[address] [facility]) Metformin hydrochloride 500 MG Oral Tablet 06/25/2019 12:00:[address] [facility] ([facility]) IGlucose Test Strips In Vitro 06/25/2019 12:00:[address] [facility]) Lancets Ultra Fine Miscellaneous 06/25/2019 12:00:[address] [facility]) 60 ACTUAT Budesonide 0.16 MG/ACTUAT / fo rmoterol fumarate 0.0045 MG/ACTUAT Metered Dose Inhaler [Symbicort] 06/25/2019 12:00:[address] [facility]) Metformin hydrochloride 500 MG Oral Tablet 05/30/2019 12:00:[address] [facility] ([facility]) IGlucose Test Strips In Vitro 01/24/2019 12:00:00 AM [facility]) Lancets Ultra Fine Miscellaneous 01/24/2019 12:00:00 AM [facility] ([facility]) Triamcinolone Acetonide 1 MG/ML Topical Lotion 01/24/2019 12:00:00 AM [facility] ([facility]) Metformin hydrochloride 500 MG Oral Tablet 01/24/2019 12:00:00 AM E DT ELIZABETH ([facility]) atorvastatin 20 MG Oral Tablet 01/24/2019 12:00:00 AM EDT ELIZABETH ([facility]) 30 ACTUAT fluticasone furoate 0.1 MG/ACT UAT / vilanterol 0.025 MG/ACTUAT Dry Powder Inhaler [Breo] 01/24/2019 12:00:00 AM EDT ELIZABETH ([facility]) 200 ACTUAT Albuterol 0.09 MG/ACTUAT Metered Dose Inhal er [ProAir] 01/24/2019 12:00:00 AM EDT ELIZABETH ([facility]) pantoprazole 40 MG Delayed Release Oral Tablet 04/16/2016 12:00:00 AM EDT [facility] atorvastatin 40 MG Oral Tablet 10/10/2014 12:00:00 AM EDT [facility] 200 ACTUAT Levalbuterol 0.045 MG/ACTUAT Metered Dose I nhaler [Xopenex] 04/23/2014 12:00:00 AM EST [facility] Cholecalciferol 2000 UNT Oral Capsule [facility] Nitroglycerin 0.4 MG Sublingual Tablet [facility] DAILY DIONNE (THERAGRAN) per tablet [facility] ALBUTEROL IN [facility] 24 HR metoprolol succinate 25 MG Extended Release Oral Tablet [facility] Aspirin 325 MG Oral Tablet [facility]
[2020-07-03 10:05] LABS: BASO # 0.1 10^3/uL (0.0-0.2); BASO % 0.6 % (0.0-1.0); EOS # 0.3 10^3/uL (0.0-0.5); EOS % 3.8 % (0.0-3.0); HEMATOCRIT 38.6 % (42.0-52.0); HEMOGLOBIN 12.4 g/dl (13.5-17.5); LYMPH # 1.4 10^3/uL (1.5-5.0); LYMPH % 14.9 % (24.0-44.0); MEAN CORPUSCULAR HEMOGLOBIN 28.8 pg (27.0-33.0); MEAN CORPUSCULAR HGB CONC 32.1 g/dl (32.0-36.5); MEAN CORPUSCULAR VOLUME 89.6 fl (80.0-96.0); MONO # 0.8 10^3/uL (0.0-0.8); MONO % 9.3 % (0.0-5.0); NEUTROPHILS # 6.4 10^3/uL (1.5-8.5); PLATELET COUNT, AUTOMATED 274 10^3/uL (150-450); RED BLOOD COUNT 4.31 10^6/uL (4.30-6.10); WHITE BLOOD COUNT 9.1 10^3/uL (4.0-10.0)
[2020-07-03] MEDS ORDERED: ALEV220T22 PO (10:09)
[2020-07-03] MEDS ORDERED: ELIQ5TAB PO (10:09)
[2020-07-03] MEDS ORDERED: DOCU100C17 PO (10:09)
[2020-07-03] MEDS ORDERED: PANT40TA29 PO (10:09)
[2020-07-03] MEDS ORDERED: ONDANSETRON 4 MG TAB PO PRN (10:15)
[2020-07-03] MEDS ORDERED: OLANZapine 10 MG TAB PO PRN (10:15)
[2020-07-03] MEDS ORDERED: ACETAMINOPH W/CODEINE #3 TAB UD PO PRN (10:15)
[2020-07-03] MEDS ORDERED: ALBUTEROL SULFATE 2.5 MG/0.5 ML INH NEB SOLN NEB PRN (10:15)
[2020-07-03] MEDS ORDERED: ACETAMINOPHEN TAB 650MG DOSE (2X325MG) PO PRN (10:15)
[2020-07-03] MEDS ORDERED: IPRATROPIUM 0.5MG/ALBUTEROL 2.5MG INH SOL UD 3ML (DUONEB) NEB PRN (10:15)
[2020-07-03 10:16] LABS: INR 1.23; PROTHROMBIN TIME 15.8 SECONDS (12.5-14.3)
--- OUTSIDE RECORDS SUMMARY | 2020-07-03 10:21 | CCD ---
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 Care Treater Name Role Phone Susan Talamantes MD Unavailable [...] Vinita, Susan Balbuena MD Unavailable Unavailable Vinita, C Esha MD Unavailable Unavailable Susan Talamantes MD Unavailable [...] Unavailable Lake, John Lizett GONCALVES Unavailable Unavailable SleTonio woodjcristiana GONCALVES Unavailable Unavailable SleheatherkaToniojtech Unavailable Unavailable SlezkaToniojtech Unavailable Unavailable SleheatherkaJulio MD Unavailable Unavailable SlezkaToniojtech Unavailable Unavailable SlezkaToniojtech Unavailable Unavailable Slezka Vojtech Unavailable Unavailable SlezkaToniojtech Unavailable Unavailable Slezka Vojtech MD Unavailable Unavailable Slezka Vojtech Unavailable Unavailable SlezkaToniojtech Unavailable Unavailable Slezka Vojtech Unavailable Unavailable Slezka Vojtech Unavailable Unavailable Slezka Vojtech MD Unavailable Unavailable Slezka Vojtech MD Unavailable Unavailable Slezka, Vojtech MD Unavailable Unavailable Slezka, Vojtech Unavailable Unavailable Slezka Vojtech Unavailable Unavailable Slezka Vojtech MD Unavailable Unavailable Slezka Vojtech MD Unavailable Unavailable [...] Unavailable Bethany Felix MD Unavailable Unavailable Bethany eFlix MD Unavailable Unavailable Bethany Felix MD Unavailable [...] Unavailable Vinita, Susan Balbuena MD Unavailable Unavailable Viinta, Susan Balbuena MD Unavailable Unavailable Vinita, Susan [...] Unavailable HONORIO DE SOUZA MD Unavailable Unavailable Isaias Amaro MD Unavailable [...] Unavailable Amaro, Isaias Stokes MD Unavailable Unavailable AmaroIsaias MD Unavailable Unavailable Amaro, Isaias Stokes MD [...] Unavailable Vinita, Susan Balbuena MD Unavailable Unavailable Vintia, Susan Balbuena MD Unavailable Unavailable Vinita, Susan [...] is protected by Article 27-F of the [facility] Public Health law. If you continue you may have access to information: Regarding HIV / AIDS; Provided by facilities licensed or operated by the [facility] Office of Mental Health; or Provided by the [facility] Office for People With Developmental Disabilities. If such information is present, then the following [facility] mandated warning applies: This information has [...] law may result in a fine or prison sentence or both. A general authorization for the release of medical or other information is NOT sufficient authorization for further disc losure. Allergies and Adverse Reactions Type Description Substance Reaction Status Data Source(s ) Food allergy shellfish derived shellfish derived [facility] Family History Family Member Name Family Member Gender Family Member Status Date o f Status Description Data Source(s) Unknown Male Problem [facility] ([facility]) Unknown Male Problem [facility] ([facility]) Encounters Encounter Providers Location Date Indications Data Source(s ) Outpatient Attender: Lizett Nixon/[place]ho[place]/Re indl 06/22/2020 09:15:00 AM EST [facility] ([facility] Outpatient Attender: Lizett Nixon/[place]/Re indl 06/14/2020 12:23:00 AM EST [facility] ([facility] Outpatient Attender: Lizett Ortiz/[place]/Re indl 06/13/2020 12:23:00 AM EST [facility] ([facility] Outpatient Attender: Lizett Nixon/[place]/Re indl 06/12/2020 12:23:00 AM EST [facility] ([facility] Outpatient Referrer: Bethany Felix MD 06/11/2020 09:36:00 AM EST Pleural effusion, not elsewhere classified [facility] Pleural effusion, not elsewhere classifi ed Outpatient Attender: Lizett Nixon/[place]hoa/Re indl 06/10/2020 12:23:00 AM EST [facility] ([facility] Outpatient Attender: Lizett Nixon/[place]/Re indl 06/09/2020 12:23:00 AM EST [facility] ([facility] Outpatient Attender: Lizett Nixon/[place]ho[place]/Re indl 06/08/2020 12:23:00 AM EST [facility] ([facility] Outpatient Admitter: Bethany Felix MDReferrer: Bethany Felix MD 06/08/2020 12:00:00 AM EST Secondary malignant neoplasm of unspecified site [facility] Secondary malignant neoplasm of unspecif ied site Outpatient Attender: Kike Nixon/[place]hoa/R eindl 06/01/2020 09:00:00 AM EST [facility] ([facility] Outpatient Attender: Julio Reyes MDReferrer: Stevan SCHULZ.PAULINO-[email or web address].PAULINO 05/28/2020 12:00:00 AM EST - 05/28/2020 10:45:33 AM EST [facility] Outpatient<td ID="encounterTypeDescripti onID0">STANDARD OV</td><td>Esha Talamantes MD</td><td>Family Medicine [facility]</td><td>05/20/2020</td><td>8:34AM</td><td>05/07/2020 11:59PM</td><td><content ID="encounterDiagnosisID0-0">Working Diagnosis of Abdominal Pain</content>, <content ID="encounterDiagnosisID0-1">Working Diagnosis of Abdominal Pain in the Central Upper Belly (Epigastric)</content>, <content ID="encounterDiagnosisID0-2">Chest Pain</content>, <content ID="encounterDiagnosisID0-3">Hypoxia</content></td> Attender: Esha Talamantes MD [facility] 05/20/2020 08:34:00 AM EST - 05/07/2020 11:59:[address] [facility] HypoxiaChest PainWorking Diagnosis of Ab dominal Pain in the Central Upper Belly (Epigastric)Working Diagnosis of Abdominal Pain [facility] ([facility]) Hypoxia Chest Pain Working Diagnosis of Abdominal Pain in t he Central Upper Belly (Epigastric) Working Diagnosis of Abdominal Pain Outpatient Attender: Esha Talamantes MDConsultant: Esha branch MD 05/07/2020 09:30:00 AM EST - 05/07/2020 10:30:00 AM [facility] Outpatient<td ID="encounterTypeDescripti onID1">STANDARD OV</td><td>Esha Talamantes MD</td><td>[facility]</td><td>05/07/2020</td><td>8:07AM</td><td>9:08AM</td><td><content ID="encounterDiagnosisID1-0">Acute Infective Exacerbation of Chronic Obstructive Airways Disease</content>, <content ID="encounterDiagnosisID1-1">Nicotine Dependence Uncomplicated</content>, <content ID="encounterDiagnosisID1- 2">Atypical Chest Pain</content></td> Attender: Esha Talamantes MD [facility] 05/07/2020 08:07:00 AM EST - 05/07/2020 09:08:00 AM ES T Atypical Chest PainNicotine Dependence UncomplicatedAcute Infective Exacerbation of Chronic Obstructive Airways DiseaseAtypical Chest PainNicotine Dependence UncomplicatedAcute Infective Exacerbation of Chronic Obstructive Airways Disease Atypical Chest PainNicotine Dependence UncomplicatedAcute Infective Exacerbation of Chronic Obstructive Airways Disease [place] ([facility]) Atypical Chest Pain Nicotine Dependence Uncomplicated Acute Infective Exacerbation of Chronic Obstructive Airways Disease Atypical Chest Pain Nicotine Dependence Uncomplicated Acute Infective Exacerbation of Chronic Obstructive Airways Disease Atypical Chest Pain Nicotine Dependence Uncomplicated Acute Infective Exacerbation of Chronic Obstructive Airways Disease Outpatient Attender: Esha Talamantes MDConsultant: Esha branch MD 04/30/2020 08:24:00 AM EST - 04/30/2020 09:24:00 AM EST [facility] Outpatient<td ID="encounterTypeDescripti onID2">HOSP I/P F/U</td><td>Esha Talamatnes MD</td><td>[facility]</td><td>04/22/2020</td><td>10:05AM</td><td>11:03AM</td><td><content ID="encounterDiagnosisID2-0">Vitreous Floaters Right Eye</content>, <content ID="encounterDiagnosisID2-1">Chronic Obstructive Pulmonary Disease</content>, <content ID="encounterDiagnosisID2-2">Essential Hypertension Benign</content>, <content ID="encounterDiagnosisID2-3">Hyperlipidemia</content>, <content ID="encounterDiagnosisID2-4">Diabetes Mellitus Type 2 in Obese</content>, <content ID="encounterDiagnosisID2-5">Lung Mass</content>, <content ID="encounterDiagnosisID2-6">Fatigue</content></td> Attender: Esha Talamantes MD [facility], 04/22/2020 10:05:00 AM EST - 04/22/2020 11:03:00 [...] DiseaseHyperlipidemiaChronic Obstructive Pulmonary DiseaseHyperlipidemiaChronic Obstructive Pulmonary Disease [place] ([facility]) Fatigue Lung Mass Diabetes Mellitus Type 2 [...] 04/12/2020 11:42:00 AM EDT CHEST PAIN,COPD EXACERBATION [facility] CHEST PAIN,COPD EXACERBATION Patient discharged. Outpatient<td ID="encounterTypeDescripti onID3">RX UPDATE</td><td>Esha Talamantes MD</td><td>[facility]</td><td>11/20/2019</td><td>08/20/2019 11:10AM</td><td>08/20/2019 11:59PM</td><td></td> Attender: Esha Talamantes MD [facility] 08/20/2019 11:10:00 AM EST - 08/20/2019 11:59:00 PM [facility] ([facility]) Outpatient<td ID="encounterTypeDescripti onID4">ANNUAL PHYSICAL EXAM</td><td>Esha Talamantes MD</td><td>[facility]</td><td>08/20/2019</td><td>8:13AM</td><td>9:35AM</td><td><content ID="encounterDiagnosisID4-0">Fatigue</content>, <content ID="encounterDiagnosisID4-1">Hypogonadism</content>, <content ID="encounterDiagnosisID4-2">Hyperlipidemia</content>, <content ID="encounterDiagnosisID4-3">Benign Prostatic Hypertrophy</content>, <content ID="encounterDiagnosisID4-4">Diabetes Mellitus Type 2 in Nonobese</content>, <content ID="encounterDiagnosisID4-5">Routine History & Physical Senior Citizen with Abnormal Findings</content></td> Attender: Esha Talamantes MD [facility] [place], 08/20/2019 08:13:00 AM EST - 08/20/2019 09:35:00 [...] in NonobeseBenign Prostatic HypertrophyHypogonadismFatigue HyperlipidemiaHyperlipidemiaHyperlipidemiaHyperlipidemiaHyperlipidemiaHyperlipid noe [facility] ([facility]) Routine History & Physical Senior Citize n [...] 07:43:00 AM EST - 08/12/2019 08:43:00 AM [facility] Outpatient<td ID="encounterTypeDescripti onID5">STANDARD OV</td><td>Esha Talamantes MD</td><td>[facility]</td><td>08/07/2019</td><td>1:54PM</td><td>3:09PM</td><td><content ID="encounterDiagnosisID5-0">Cervicalgia</content>, <content ID="encounterDiagnosisID5-1">Chronic Obstructive Pulmonary Disease</content>, <content ID="encounterDiagnosisID5-2">Hypercalcemia</content>, <content ID="encounterDiagnosisID5-3">Bursitis Olecranon Left</content>, <content ID="encounterDiagnosisID5-4">Psoriasis</content>, <content ID="encounterDiagnosisID5-5">Diabetes Mellitus Secondary with Peripheral Neuropathy</content></td> Attender: Esha Talamantes MD [facility] 08/07/2019 01:54:00 PM EST - 08/07/2019 03:09:00 [...] DiseaseChronic Obstructive Pulmonary DiseaseChronic Obstructive Pulmonary Disease [place] ([facility]) Diabetes Mellitus Secondary with Periphe ral Neuropathy [...] Obstructive Pulmonary Disease Outpatient 07/07/2019 03:17:00 PM [facility] Emergency Attender: MALA PANIAGUA MDConsultant: Esha branch MD 07/07/2019 01:18:00 PM EST - 07/07/2019 03:37:00 PM [facility] Patient discharged. Outpatient<td ID="encounterTypeDescripti onID6">STANDARD OV</td><td>Esha Talamantes MD</td><td>[facility],</td><td>06/25/2019</td><td>10:55AM</td><td>11:58AM</td><td><content ID="encounterDiagnosisID6-0">Chronic Obstructive Pulmonary Disease</content>, <content ID="encounterDiagnosisID6-1">Hyperlipidemia</content>, <content ID="encounterDiagnosisID6-2">Diabetes Mellitus Type 2</content>, <content ID="encounterDiagnosisID6-3">Obesity</content>, <content ID="encounterDiagnosisID6-4">Diabetes Mellitus Type 2 with Coma</content>, <content ID="encounterDiagnosisID6-5">Hypogonadism</content></td> Attender: Esha Talamantes MD [facility], 06/25/2019 10:55:00 AM EST - 06/25/2019 11:58:00 [...] DiseaseHyperlipidemiaChronic Obstructive Pulmonary DiseaseHyperlipidemiaChronic Obstructive Pulmonary Disease [place] ([facility]) Hypogonadism Diabetes Mellitus Type 2 with Coma [...] Pulmonary Disease Outpatient<td ID="encounterTypeDescripti onID7">Prescription Refill (Telephone, [phone]</td><td>Esha Talamantes MD</td><td></td><td>05/30/2019</td><td>02/04/2019 2:09PM</td><td>02/04/2019 11:59PM</td><td></td> Attender: Esha Talamantes MD 05/30/2019 02:09:00 PM EST - 02/04/2019 11:59:00 PM EDT [facility] ([facility]) Functional Status Immunizations Vaccine Date Status Description Data Source(s) pneumococcal polysaccharide PPV23 08/07/2019 03:08:00 PM EST com pleted PCV (Pneumovax 23) ages 2+ 1 08/07/2019 Complete (Ref used - Patient objection) [facility] ([facility]) Medications Medication Brand Name Start Date [...] 1 TWICE A DAY THEREAFTER SOLD: 06/14/2020 [facility] pantoprazole 40 MG Delayed Release Oral Tablet PANTOPRAZOLE SODIUM 06/14/2020 12:00:00 AM EST tablet,delayed release (DR/EC) 30 T CARY ONE TABLET BY MOUTH EVERY DAY TAKE ONE TABLET BY MOUTH EVERY DAY SOLD: 06/14/2020 [facility] 100 mg 06/14/2020 12:00:00 AM EST capsule 60 TAKE ONE CAPSULE BY MOUTH TWICE A DAY TAKE ONE CAPSULE BY MOUTH TWICE A DAY SOLD: 06/14/2020 [facility] 7 ACTUAT umeclidinium 0.0625 MG/ACTUAT Dry Powder Inha ler [Incruse] Incruse Ellipta 06/01/2020 12:00:00 AM EST RESPIRATORY active [facility] ([facility], ) Prednisone 10 MG Oral Tablet Prednisone 06/01/2020 12:00:00 AM EST ORAL completed [facility] ([facility], ) Metformin hydrochloride 500 MG Oral Tablet metFORMIN ( GLUCOPHAGE) 500 MG tablet metFORMIN (GLUCOPHAGE) 500 MG tablet 05/20/2020 12:00:00 AM EST 1 { tbl} Oral active Take 1 tablet by mouth 2 (two) times a day [facility] Lancets Ultra Fine Miscellaneous Lancets Ultra Fine Miscella neous 05/20/2020 12:00:00 AM EST active Lancets Ultra Fine [facility] ([facility]) IGlucose Test Strips In Vitro IGlucose Test Strips In Vitro 05/20/2020 12:00:00 AM EST active IGlucose Test Str ips [facility] ([facility]) Albuterol 0.833 MG/ML / Ipratropium Brom delmer 0.167 MG/ML Inhalant Solution ipratropium-albuterol (DUO-NEB) 0.5-2.5 mg/mL nebulizer ipratropium-albuterol (DUO-NEB) 0.5-2.5 mg/mL nebulizer 05/20/2020 12:00:00 AM EST active INHALE 1 VIAL VIA NEB QID PRN [facility] Triamcinolone Acetonide 1 MG/ML Topical Lotion Triamcinolone Acetonide 0.1% External Lotion Triamcinolone Acetonide 0.1% External Lotion 0 12:00:00 AM EST active triamcinolone ac etonide 1 MG/ML Topical Lotion [facility] ([facility]) atorvastatin 20 MG Oral Tablet Atorvastatin Calcium 20 MG Oral Tablet Atorvastatin Calcium 20 MG Oral Tablet 05/20/2020 12:00:00 AM EST 1 active [facility]vastatin 20 MG [facility] Metformin hydrochloride 500 MG Oral Tablet metFORMIN H Cl 500 MG Oral Tablet metFORMIN HCl 500 MG Oral Tablet 05/20/2020 12:00:00 AM EST active metformin hydrochloride 500 MG Oral Tablet [facility] ([facility]) 60 ACTUAT Budesonide 0.16 MG/ACTUAT / fo rmoterol fumarate 0.0045 MG/ACTUAT Metered Dose Inhaler [Symbicort] Symbicort 160-4.5 MCG/ACT Inhalation Aerosol Symbicort 160-4.5 MCG/ACT Inhalation Aerosol 05/20/2020 12:00:00 AM EST active 60 ACTUAT budeso nide 0.16 MG/ACTUAT / formoterol fumarate 0.0045 MG/ACTUAT Metered Dose Inhaler [Symbicort] [facility]) 200 ACTUAT Albuterol 0.09 MG/ACTUAT Mete red Dose Inhaler [ProAir] ProAir HFA 108 (90 Base) MCG/ACT Inhalation Aerosol Solution ProAir HFA 108 (90 Base) MCG/ACT Inhalation Aerosol Solution 05/20/2020 12:00:00 AM EST 18 active [id number] 200 ACTUAT albuterol 0.09 MG/ACTUAT Metered Dose Inhaler [ProAir] [facility]) Lisinopril 5 MG Oral Tablet Lisinopril 5 MG Oral Tablet 07/2019 12:00:00 AM EST active lisinopril 5 MG O ral Tablet [facility] ([facility]) Lisinopril 5 MG Oral Tablet lisinopril (PRINIVIL,ZESTR IL) 5 MG tablet lisinopril (PRINIVIL,ZESTRIL) 5 MG tablet 05/19/2020 12:00:00 AM EST 1 {tbl} O ral active Take 1 tablet by mouth daily [facility] Lisinopril 5 MG Oral Tablet Lisinopril 5 MG Oral Tablet 04/20 12:00:00 AM EST aborted lisinopril 5 MG Oral Tablet [facility] ([facility]) Prednisone 10 MG Oral Tablet predniSONE 10 MG Oral Tab let predniSONE 10 MG Oral Tablet 05/07/2020 12:00:00 AM EST aborted prednisone 10 MG Oral Tablet [facility]) doxycycline hyclate 100 MG Oral Capsule Doxycycline Hy clate 100 MG Oral Capsule Doxycycline Hyclate 100 MG Oral Capsule 05/06/2020 12:00:00 AM EST active doxycycline hyclate 100 MG Oral Capsule [facility]) 60 ACTUAT Budesonide 0.16 MG/ACTUAT / fo rmoterol fumarate 0.0045 MG/ACTUAT Metered Dose Inhaler [Symbicort] Symbicort 160-4.5 MCG/ACT Inhalation Aerosol Symbicort 160-4.5 MCG/ACT Inhalation Aerosol 04/22/2020 12:00:00 AM EST aborted 60 ACTUAT budeso nide 0.16 MG/ACTUAT / formoterol fumarate 0.0045 MG/ACTUAT Metered Dose Inhaler [Symbicort] [facility] ([facility]) 200 ACTUAT Albuterol 0.09 MG/ACTUAT Mete red Dose Inhaler [ProAir] ProAir HFA 108 (90 Base) MCG/ACT Inhalation Aerosol Solution ProAir HFA 108 (90 Base) MCG/ACT Inhalation Aerosol Solution 04/22/2020 12:00:00 AM EST 18 aborted [id number] 200 ACTUAT albuterol 0.09 MG/ACTUAT Metered Dose Inhaler [ProAir] [facility] ([facility]) Metformin hydrochloride 500 MG Oral Tablet metFORMIN H Cl 500 MG Oral Tablet metFORMIN HCl 500 MG Oral Tablet 04/22/2020 12:00:00 AM EST aborted metformin hydrochloride 500 MG Oral Tablet [facility] ([facility]) atorvastatin 20 MG Oral Tablet Atorvastatin Calcium 20 MG Oral Tablet Atorvastatin Calcium 20 MG Oral Tablet 04/22/2020 12:00:00 AM EST 1 aborted atorvastatin 20 MG Oral Tablet [facility]) Lisinopril 5 MG Oral Tablet Lisinopril 5 MG Oral Tablet 09/2019 12:00:00 AM EST 1 aborted lisinopril 5 MG Oral Tablet [facility]) Dextromethorphan Hydrobromide 2 MG/ML / Guaifenesin 20 MG/ML Oral Solution Dextromethorphan-Guaifenesin Dextromethorphan-Guaifenesin 04/12/2020 10:03:10 AM EDT 10 ML active [facility] Albuterol 0.833 MG/ML / Ipratropium Brom delmer 0.167 MG/ML Inhalant Solution Ipratropium-Albuterol Ipratropium-Albuterol 04/12/2020 10:02:36 AM EDT 3 ML active [facility] Prednisone 20 MG Oral Tablet Prednisone 04/12/2020 10:01:33 AM EDT 40 MG active [facility] Azithromycin 500 MG Oral Tablet Azithromycin 04/12/2020 10:00:43 AM EDT 500 MG active [facility] atorvastatin 20 MG Oral Tablet Atorvastatin Atorvastatin 04/11/2020 09:16:15 PM EDT 20 MG active [facility] Zbhzmsxuaezh-Vhqluaow-Uvjons (Centrum Silver) Tablet 04/11/2020 09:16:15 PM EDT 1 TAB active [facility] atorvastatin 20 MG Oral Tablet Atorvastatin Atorvastatin 04/11/2020 09:16:15 PM EDT 20 MG active [facility] Metformin hydrochloride 500 MG Oral Tablet Metformin 04/11 09:16:15 PM EDT 500 MG active [facility] Aspirin 04/11/2020 09:16:15 PM EDT 81 MG active [facility] Aspirin 04/11/2020 09:16:15 PM EDT 81 MG active [facility] 120 ACTUAT Budesonide 0.16 MG/ACTUAT / f ormoterol fumarate 0.0045 MG/ACTUAT Metered Dose Inhaler Budesonide-Formoterol (Symbicort) 160-4.5 mcg/actuation HFA aerosol inhaler Budesonide-Formoterol (Symbicort) 160-4. 5 mcg/actuation HFA aerosol inhaler 04/11/2020 09:16:15 PM EDT 2 PUFFS activ e [facility] Metformin hydrochloride 500 MG Oral Tablet Metformin 04/11 09:16:15 PM EDT 500 MG active [facility] 120 ACTUAT Budesonide 0.16 MG/ACTUAT / f ormoterol fumarate 0.0045 MG/ACTUAT Metered Dose Inhaler Budesonide-Formoterol (Symbicort) 160-4.5 mcg/actuation HFA aerosol inhaler Budesonide-Formoterol (Symbicort) 160-4. 5 mcg/actuation HFA aerosol inhaler 04/11/2020 09:16:15 PM EDT 2 PUFFS activ e [facility] Albuterol Sulfate (Proair Hfa) 90 mcg/actuation HFA aerosol inhaler 04/11/2020 09:16:15 PM EDT 2 PUFFS active [facility] Cosprnaqkglx-Ekjmqnlb-Iylndz 04/11/2020 09:16:15 PM EDT 1 T AB active [facility] Albuterol Sulfate (Proair Hfa) 90 mcg/actuation HFA aerosol inhaler 04/11/2020 09:16:15 PM EDT 2 PUFFS active [facility] 60 ACTUAT Budesonide 0.16 MG/ACTUAT / fo rmoterol fumarate 0.0045 MG/ACTUAT Metered Dose Inhaler [Symbicort] Symbicort 160-4.5 MCG/ACT Inhalation Aerosol Symbicort 160-4.5 MCG/ACT Inhalation Aerosol 11/20/2019 12:00:00 AM EDT aborted 60 ACTUAT budeso nide 0.16 MG/ACTUAT / formoterol fumarate 0.0045 MG/ACTUAT Metered Dose Inhaler [Symbicort] [facility] ([facility]) Lisinopril 5 MG Oral Tablet Lisinopril 5 MG Oral Tablet 08/2019 12:00:00 AM EDT 1 aborted lisinopril 5 MG Oral Tablet [facility] ([facility]) 200 ACTUAT Albuterol 0.09 MG/ACTUAT Mete red Dose Inhaler [ProAir] ProAir HFA 108 (90 Base) MCG/ACT Inhalation Aerosol Solution ProAir HFA 108 (90 Base) MCG/ACT Inhalation Aerosol Solution 10/24/2019 12:00:00 AM EDT 18 aborted [id number] 200 ACTUAT albuterol 0.09 MG/ACTUAT Metered Dose Inhaler [ProAir] [facility] ([facility]) Lisinopril 5 MG Oral Tablet Lisinopril 5 MG Oral Tablet 08/2019 12:00:00 AM EST 1 aborted lisinopril 5 MG Oral Tablet [facility] ([facility]) Triamcinolone Acetonide 1 MG/ML Topical Lotion Triamcinolone Acetonide 0.1% External Lotion Triamcinolone Acetonide 0.1% External Lotion 0 12:00:00 AM EST aborted triamcinolone a cetonide 1 MG/ML Topical Lotion [facility]) 200 ACTUAT Albuterol 0.09 MG/ACTUAT Mete red Dose Inhaler [ProAir] ProAir HFA 108 (90 Base) MCG/ACT Inhalation Aerosol Solution ProAir HFA 108 (90 Base) MCG/ACT Inhalation Aerosol Solution 08/20/2019 12:00:00 AM EST 18 aborted [id number] 200 ACTUAT albuterol 0.09 MG/ACTUAT Metered Dose Inhaler [ProAir] [facility]) 5000 MG Testosterone 0.01 MG/MG Topical Gel [Androgel] AndroGel 50 MG/5GM (1%) Transdermal AndroGel 50 MG/5GM (1%) Transdermal 08/20/2019 12:00:00 AM EST aborted 5000 MG testosterone 0.01 MG/MG Topical Gel [Androgel] [facility]) IGlucose Test Strips In Vitro IGlucose Test Strips In Vitro 08/20/2019 12:00:00 AM EST aborted IGlucose Test [facility] ([facility]) atorvastatin 20 MG Oral Tablet Atorvastatin Calcium 20 MG Oral Tablet Atorvastatin Calcium 20 MG Oral Tablet 08/20/2019 12:00:00 AM EST 1 aborted atorvastatin 20 MG Oral Tablet [facility]) 60 ACTUAT Budesonide 0.16 MG/ACTUAT / fo rmoterol fumarate 0.0045 MG/ACTUAT Metered Dose Inhaler [Symbicort] Symbicort 160-4.5 MCG/ACT Inhalation Aerosol Symbicort 160-4.5 MCG/ACT Inhalation Aerosol 08/20/2019 12:00:00 AM EST aborted 60 ACTUAT budeso nide 0.16 MG/ACTUAT / formoterol fumarate 0.0045 MG/ACTUAT Metered Dose Inhaler [Symbicort] [facility]) Lancets Ultra Fine Miscellaneous Lancets Ultra Fine Miscella neous 08/20/2019 12:00:00 AM EST aborted Lancets Ultra Fine [facility] ([facility]) Metformin hydrochloride 500 MG Oral Tablet metFORMIN H Cl 500 MG Oral Tablet metFORMIN HCl 500 MG Oral Tablet 08/20/2019 12:00:00 AM EST aborted metformin hydrochloride 500 MG Oral Tablet [facility] ([facility]) Lancets Ultra Fine Miscellaneous Lancets Ultra Fine Miscella neous 06/25/2019 12:00:00 AM EST aborted Lancets Ultra Fine [facility] ([facility]) IGlucose Test Strips In Vitro IGlucose Test Strips In Vitro 06/25/2019 12:00:00 AM EST aborted IGlucose Test St rips [facility] ([facility]) Metformin hydrochloride 500 MG Oral Tablet metFORMIN H Cl 500 MG Oral Tablet metFORMIN HCl 500 MG Oral Tablet 06/25/2019 12:00:00 AM EST aborted metformin hydrochloride 500 MG Oral Tablet [facility] ([facility]) atorvastatin 20 MG Oral Tablet Atorvastatin Calcium 20 MG Oral Tablet Atorvastatin Calcium 20 MG Oral Tablet 06/25/2019 12:00:00 AM EST 1 aborted atorvastatin 20 MG Oral Tablet [facility]) 60 ACTUAT Budesonide 0.16 MG/ACTUAT / fo rmoterol fumarate 0.0045 MG/ACTUAT Metered Dose Inhaler [Symbicort] Symbicort 160-4.5 MCG/ACT Inhalation Aerosol Symbicort 160-4.5 MCG/ACT Inhalation Aerosol 06/25/2019 12:00:00 AM EST aborted 60 ACTUAT budeso nide 0.16 MG/ACTUAT / formoterol fumarate 0.0045 MG/ACTUAT Metered Dose Inhaler [Symbicort] [facility]) Metformin hydrochloride 500 MG Oral Tablet metFORMIN H Cl 500 MG Oral Tablet metFORMIN HCl 500 MG Oral Tablet 05/30/2019 12:00:00 AM EST aborted metformin hydrochloride 500 MG Oral Tablet [facility] ([facility]) 200 ACTUAT Albuterol 0.09 MG/ACTUAT Mete red Dose Inhaler [ProAir] ProAir HFA 108 (90 Base)MCG/ACT Inhalation Aerosol Solution ProAir HFA 108 (90 Base)MCG/ACT Inhalation Aerosol Solution 01/24/2019 12:00:00 AM EDT 18 aborted [id number] 200 ACTUAT albuterol 0.09 MG/ACTUAT Metered Dose Inhaler [ProAir] [facility]) Metformin hydrochloride 500 MG Oral Tablet metFORMIN H Cl 500MG Oral Tablet metFORMIN HCl 500MG Oral Tablet 01/24/2019 12:00:00 AM EDT aborted metformin hydrochloride 500 MG Oral Tablet [facility] ([facility]) IGlucose Test Strips In Vitro IGlucose Test Strips In Vitro 01/24/2019 12:00:00 AM EDT aborted IGlucose Test St rips [facility] ([facility]) Triamcinolone Acetonide 1 MG/ML Topical Lotion Triamcinolone Acetonide 0.1% External Lotion Triamcinolone Acetonide 0.1% External Lotion 12:00:00 AM EDT aborted triamcinolone a cetonide 1 MG/ML Topical Lotion [facility] ([facility]) Lancets Ultra Fine Miscellaneous Lancets Ultra Fine Miscella neous 01/24/2019 12:00:00 AM EDT aborted Lancets Ultra Fine [facility] ([facility]) 30 ACTUAT fluticasone furoate 0.1 MG/ACT UAT / vilanterol 0.025 MG/ACTUAT Dry Powder Inhaler [Breo] Breo Ellipta 100-25MCG/INH Inhalation Aerosol Powder Breath Activated Breo Ellipta 100-25MCG/INH Inhalation Ae rosol Powder Breath Activated 01/24/2019 12:00:00 AM EDT aborted 30 ACTUAT fluticasone furoate 0.1 MG/ACTUAT / vilanterol 0.025 MG/ACTUAT Dry Powder Inhaler [Breo] [facility] ([facility]) atorvastatin 20 MG Oral Tablet Atorvastatin Calcium 20 MG Oral Tablet Atorvastatin Calcium 20MG Oral Tablet 01/24/2019 12:00:00 AM EDT 1 aborted atorvastatin 20 MG Oral Tablet [facility] ([facility]) pantoprazole 40 MG Delayed Release Oral Tablet pantoprazole (PROTONIX) 40 MG tablet pantoprazole (PROTONIX) 40 MG tablet 04/16/2016 12:00:00 AM EDT aborted [facility] atorvastatin 40 MG Oral Tablet atorvastatin (LIPITOR) 40 MG tablet atorvastatin (LIPITOR) 40 MG tablet 10/10/2014 12:00:00 AM EDT aborted [facility] 200 ACTUAT Levalbuterol 0.045 MG/ACTUAT Metered Dose Inhaler [Xopenex] XOPENEX HFA 45 MCG/ACT inhaler XOPENEX HFA 45 MCG/ACT inhaler 04/23/2014 12:00:00 AM EST aborted [facility] ALBUTEROL IN aborted prn [facility] Nitroglycerin 0.4 MG Sublingual Tablet n itroglycerin (NITROSTAT) 0.4 MG SL tablet nitroglycerin (NITROSTAT) 0.4 MG SL tablet aborted sl prn cp-take up to 3 tabs 5 minutes apart to resolve cp [facility] DAILY DIONNE (THERAGRAN) per tablet 01968-688-72 Oral aborted Take by mouth [facility] Cholecalciferol 2000 UNT Oral Capsule Ch olecalciferol (VITAMIN D3) 2000 UNITS capsule Cholecalciferol (VITAMIN D3) 2000 UNITS capsule Oral aborted Take by mouth [facility] 24 HR metoprolol succinate 25 MG Extende d Release Oral Tablet metoprolol (TOPROL-XL) 25 MG 24 hr tablet metoprolol (TOPROL-XL) 25 MG 24 hr tablet 25 mg Oral aborted Take 25 mg by mouth [facility] Aspirin 325 MG Oral Tablet aspirin 325 MG tablet aspirin 325 MG tab let 81 mg Oral aborted Take 81 mg by mouth [facility] Insurance Providers Payer name Policy type / Coverage type Policy ID Covered libertarian ID Covered libertarian's relationship to nino Policy Nino Plan Information CELESTINO [id number] SP [id number] CELESTINO [id number] SP [id number] [place] [id number] O 74 [id number] CELESTINO EXCHANGE U [id number] Self [id number] [facility] W [id number] Empl [id number] [place] MEDICAID [id number] Emperatriz 7 [id number] [place] MEDICAID [id number] [place] Other 0 Self 0 [place] Other 0 Self 0 [place] - [id number] 18 [id number] [place] Other 0 Self 0 [place] Other 0 Self 0 [place] Other 0 Self 0 [place] Other 0 Self 0 [place] Other 0 Self 0 [place] 0 Self 0 [place] Other 0 Self 0 [place] [id number] 18 [id number] [place] Other 0 Self 0 [place] Other 0 Self 0 [place] Other 0 Self 0 [place] Other 0 Self 0 [place] Other 0 Self 0 [place] Other 0 Self 0 [place] Other 0 Self 0 POM[place] U [id number] Self [id number] STATE INS FUND [facility] [id number] Empl [id number] STATE INS FUND [facility] [id number] Empl [id number] [place] Insurance Fund Workers Compensation [id number] Self [id number] [place] [id number] Self [id number] [place] Self [place] Insurance [place] Workers Compensation Self [place] MEDICAID [id number] Emperatriz 7 [id number] MEDICAID [id number] Emperatriz [id number] POMCO [id number] Emperatriz [id number] [place] Commercial Self STATE INS FUND W [id number] Empl [id number] [place] O [id number] S [id number] STATE INSURANCE FUND O [id number] S [id number] STATE INSURANCE FUND O [id number] S [id number] [place] [employer] [id number] SP [id number] POMCO [id number] SP [id number] Problems, Conditions, and Diagnoses Code Display Name Description Problem Type Effective Dates Data Source(s) 33218284 Type 1 diabetes mellitus Type 1 diabetes mellitus Prob rose 06/21/2020 12:00:00 AM EST [facility] ([facility] ) R06.02 Shortness of breath Shortness of breath [id number] 1 07/29/2019 12:00:00 AM EST [facility] R91.8 Mass of upper lobe of right lung Mass of upper l obe of right lung [id number] 05/28/2020 12:00:00 AM EST [facility] J90 Pleural effusion, not elsewhere classifi ed Pleural effusion, not elsewhere classified Diagnosis 06/11/2020 09:36:00 AM EST [facility] C79.9 Secondary malignant neoplasm of unspecif ied site Secondary malignant neoplasm of unspecified site Diagnosis 06/08/2020 08:48:[address] [facility] I48.0 Paroxysmal atrial fibrillation Paroxysmal atrial fibri llation Diagnosis 05/28/2020 08:55:[address] [facility] R06.02 Shortness of breath Shortness of breath Diagnosis 1 07/29/2019 08:55:[address] [facility] R91.8 Other nonspecific abnormal finding of maira ng field Other nonspecific abnormal finding of maira Diagnosis 05/28/2020 08:55:00 AM [facility] R07.9 Chest pain, unspecified Chest pain, unspecified Diagno sis 05/28/2020 08:55:[address] [facility] R079 Chest pain, unspecified Chest pain, unspecified Diagno sis 05/07/2020 09:30:00 AM [facility] I10 Essential (primary) hypertension Essential (primary) h ypertension Diagnosis 04/30/2020 08:24:00 AM [facility] E782 Mixed hyperlipidemia Mixed hyperlipidemia Diagnosis 04/30/2020 08:24:00 AM [facility] R5383 Other fatigue Other fatigue Diagnosis 04/30/2020 08:24:00 AM [facility] Z125 Encounter for screening for malignant ne oplasm of prostate Encounter for screening for malignant neoplasm of prostate Diagnosis 0 07:43:00 AM [facility] E291 Testicular hypofunction Testicular hypofunction Diagno sis 08/12/2019 07:43:00 AM [facility] E8352 Hypercalcemia Hypercalcemia Diagnosis 08/12/2019 07:43:00 AM [facility] [id number] Personal history of nicotine dependence Personal history of nicotine dependence Diagnosis 07/07/2019 01:18:00 PM [facility] 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 Diagnosis 07/07/2019 01:18:00 PM [facility] Z7982 jail (current) use of aspirin 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 Diagnosis 07/07/2019 01:18:00 PM [facility] J449 Chronic obstructive pulmonary disease, u nspecified Chronic obstructive pulmonary disease, unspecified Diagnosis 07/07/2019 01:18:00 PM [facility] E119 Type 2 diabetes mellitus without complic ations Type 2 diabetes mellitus without complications Diagnosis 07/07/2019 01:18:00 PM [facility] M7022 Olecranon bursitis, left elbow Olecranon bursitis, lef t elbow Diagnosis 07/07/2019 01:18:00 PM [facility] R2232 Localized swelling, mass and lump, left upper limb Localized swelling, mass and lump, left upper limb Diagnosis 07/07/2019 01:18:00 PM [facility] Y9389 Activity, other specified Activity, other specified Di agnosis 07/07/2019 01:18:00 PM [facility] Surgeries/Procedures Procedure Description Date Indications Data Source(s) INSERTION INDWELLING TUNNELED PLEURAL CATHETER 020 12:00:00 AM EST [facility] ([facility], ) DEMO&/EVAL OF PT UTILIZ AERSL GEN/NEB/INHLR/IPPB 06/01 12:00:00 AM EST [facility] ([facility], ) ECG ROUTINE ECG W/LEAST 12 LDS W/I&R POCT AMB EKG Routine 05/28/2020 9:15 AM EST Chest pain, unspecified type 05/28/2020 02:15:00 PM EST [place] pain, unspecified type [facility] Chest pain, unspecified type ELECTROCARDIOGRAM, COMPLETE (EKG) ELECTROCARDIOGRAM, COMPLET E (EKG) 05/07/2020 12:00:00 AM EST [facility]) ELECTROCARDIOGRAM, COMPLETE (EKG) ELECTROCARDIOGRAM, COMPLET E (EKG) 05/07/2020 12:00:00 AM EST [facility] ([facility]) Computed tomography angiography of thorax (procedure) 04/11/2020 08:44:[address] [facility] Computed tomography angiography of thorax (procedure) 04/11/2020 08:44:00 PM EDT [facility] l Plain chest X-ray (procedure) 04/11/2020 05:34:00 PM E DT [facility] CT Head without contrast 04/11/2020 05:34:00 PM EDT [facility] Plain chest X-ray (procedure) 04/11/2020 05:34:00 PM E DT [facility] CT Head without contrast 04/11/2020 05:34:00 PM EDT [facility] Blood Culture 04/11/2020 12:00:00 AM EDT [facility] SARS-CoV-2 (PCR) Interpretation 04/11/2020 12:00:00 AM EDT [facility] Blood Culture 04/11/2020 12:00:00 AM EDT [facility] SARS-CoV-2 (PCR) Interpretation 04/11/2020 12:00:00 AM EDT [facility] ELECTROCARDIOGRAM, COMPLETE (EKG) ELECTROCARDIOGRAM, COMPLET E (EKG) 08/20/2019 12:00:00 AM [facility]) FECAL BLOOD ASSAY TEST (waived laboratory) FECAL BLOOD ASSAY TEST (waived laboratory) 08/20/2019 12:00:00 AM [facility]) O2 SATURATION> 88% /OLI>55 O2 SATURATION> 88% /OLI>55 2019 12:00:00 AM [facility]) FECAL BLOOD ASSAY TEST FECAL BLOOD ASSAY TEST 08/20/2019 12:00:00 A M [facility]) ELECTROCARDIOGRAM, COMPLETE (EKG) ELECTROCARDIOGRAM, COMPLET E (EKG) 08/20/2019 12:00:00 AM [facility]) O2 SATURATION> 88% /OLI>55 O2 SATURATION> 88% /OLI>55 2019 12:00:00 AM [facility]) Blood culture for bacteria, including anaerobic screen (proc edure) 07/07/2019 12:00:00 AM [facility] l Gram stain microscopy (procedure) 07/07/2019 12:00:00 AM [facility] Aerobic microbial culture (procedure) 07/07/2019 12:00 :00 AM [facility] Blood culture for bacteria, including anaerobic screen (proc edure) 07/07/2019 12:00:00 AM [facility] l Gram stain microscopy (procedure) 07/07/2019 12:00:00 AM [facility] Aerobic microbial culture (procedure) 07/07/2019 12:00 :00 AM [facility] HbA1c (Glycosolated) (waived laboratory) HbA1c (Glycos olated) (waived laboratory) 06/25/2019 12:00:00 AM [facility] ([facility]) CAPILLARY BLOOD DRAW CAPILLARY BLOOD DRAW 06/25/2019 12:00:00 AM [facility] ([facility]) GLUCOSE (waived laboratory) GLUCOSE (waived laboratory) 12/2019 12:00:00 AM [facility] ([facility]) O2 SATURATION> 88% /OLI>55 O2 SATURATION> 88% /OLI>55 2019 12:00:00 AM [facility] ([facility]) Results ID Date Data Source [id number] 06/22/2020 12:00:00 AM [facility] ology Imaging Lizett Cooley MD Patient Name: TOLU [id number] Date of : 1955[place] [address] Date of Exam: 06/22/2020#: Fax: [phone] EXAM: [...] rce(s) Supporting Document(s) ID Date Data Source [id number] 06/08/2020 04:28:00 AM EST [facility] Name Value Range Interpretation Code Description Data Shelly rce(s) Supporting Document(s) SARS coronavirus 2 RNA [Presence] in Res piratory specimen by KRISTEN with probe detection [facility] This lab was ordered by [facility] a nd reported by [facility]. ID Date Data Source [id number] 06/26/2020 06:36:00 PM [facility] Anatomic Molecular Pathology ReportName: TOLU RATLIFFMRMary: [id number] Number: [id number] Date: 06/08/2020 00:00Received Date: 06/16/2020 09:03Physician(s): BETHANY FELIX MD HAGHIR, SHAHANDEH F,MDCopy To:LIZETT COOLEY,[facility]imen(s) ReceivedA: Pleural fluid, Formalin Block [id number] A2 received from [facility] in [place], [place], ROS1 by FISHDiagnosisTEST:ROS1 gene rearrangements by [...] treatmentwith crizotinib. candido/marcy Electronically Signed By Jhoan Zaccarini, M.D. Attending Pathologist 06/26/2020 18:36:59Reported at [address] [place] [id number]. Gross DescriptionMETHODOLOGY:Interphase FISH is performed on paraffin embedded NSCLC utilizing thecombined Vaughn Molecular LSI ROS1(Eliza) and ROS1(Tel) ROS1 Probes: 1)3'-ROS1(Eliza), 557 kb, labeled with SpectrumGreen, and 2) 5'- ROS1(Tel),317kb, labeled with SpectrumOrange. Tumor cells with no YCH1jikhbcnjpwglld have 2 yellow signals (fused orange and [...] and its performance characteristics weredetermined by the [facility],and it has been authorized for clinical use by [facility]. The test has not been cleared or approved by the U.S. Food andDrug Administration. The analyte specific reagents used in this assay donot require FDA approval. REFERENCES: 1. SHANTELL Juarez, Daisy AT, Theparadise RIVAS et al. Identifying and Targeting XGJ7Zfqm Fusions in NonSmall Cell Lung Cancer. Clin Cancer Res 2012; 18(17);21187301.2. Iqbal, Severo AT. Novel Targets in Non-Small Cell Lung Cancer:ROS-1 and RET fusions. The Oncologist. 2013;18:865-875.This report may include one or more immunohistochemical stain results thatuse analyte specific reagents. All positive and negative controls havebeen reviewed by the attending pathologist and are satisfactory. The testswere developed and their performance characteristics determined by [facility] Pathology department. They have not been cleared or approved by the USFood and Drug Administration. The FDA has determine d that such clearanceor approval is not necessary. Name Value Range Interpretation Code Description Data Shelly rce(s) Supporting Document(s) ID Date Data Source [id number] 06/25/2020 12:10:00 PM [facility] Anatomic Molecular Pathology ReportName: TOLU RATLIFFMRN: [id number] Number: [id number] Date: 06/08/2020 00:00Received Date: 06/16/2020 09:06Physician(s): BETHANY FEILX,BETHANY GRULLON,MDCopy To:LIZETT COOLEY,[facility]ITALpecimen(s) ReceivedA: Pleural fluid, Formalin Block [id number] A2 received from [facility] in [place], [place] BRAF Mutation AnalysisDiagnosisTESTS:BRAF V600E mutation (1799 [...] Miranda M.D. Attending Pathologist 06/25/2020 12:10:33Reported at [address] [place] [id number]. Gross DescriptionMETHODOLOGY:BRAF V600E(1799 T>A) mutation at exon [...] theamounts of PCR products, and analyzed by WhoWantsMeGene Q real timeinstrument. The analytical sensitivity (or minimum percentage of mutantDNA needed) is approximately 10% given sufficient DNA input. Test development and its performance characteristics were determined bythe [facility], and has beenauthorized for clinical use by [facility]. Thetest has not been cleared or approved by the U.S. Food and DrugAdministration. The analyte specific reagents used in this assay do notrequire FDA approval. REFERENCES: 1. Dolores S, Deandre Cortés, et al. Detection of BRAF G462Rpinufnlj in colorectal cancer-comparison of automatic sequencing and realtime chemistry methodology. J Mol Diagn. 2006; 8:442045.2. Raul L, Chica REINA, Nayeli N, et al. BRAF mutation analysis in fineneedle aspiration (FNA) cytology of the thyroid. Diagn Mol Pa thol.2006;15:597298.3. Brenda PK, Glen ME, Lelo M, et al. Clinical characteristics ofpatients with lung adenocarcinomas harboring BRAF mutations. J Clin Oncol.2011;29:1649-0122.This report may include one or more immunohistochemical stain results thatuse analyte specific reagents. All positive and negative controls havebeen reviewed by the attending pathologist and are satisfactory. The testswere developed and their performance characteristics determined by [facility] Pathology department. They have not been cleared or approved by the USFood and Drug Administration. The FDA has determined that such clearanceor approval is not necessary. Name Value Range Interpretation Code Description Data Shelly rce(s) Supporting Document(s) ID Date Data Source [id number] 06/25/2020 09:32:00 [facility] Anatomic Molecular Pathology ReportName: TOLU RATLIFFNICK: [id number] Number: [id number] Date: 06/08/2020 00:00Received Date: 06/16/2020 09:04Physician(s): BETHANY FELIX MD HAGHIR, SHAHANDEH F,[facility] [place], [place] To:LIZETT COOLEY,[facility]ITALpecimen(s) ReceivedA: Pleural fluid, Formalin Block [id number] A2 received from [facility] in [place], [place] EGFRDiagnosisTEST: EGFR gene mutations (exon 19 [...] indicated. Presence of exon 19 deletions, exon 37T063Z or L861Q, exon 18 G719A or exon [...] Miranda M.D. Attending Pathologist 06/25/2020 09:32:10Reported at [address] [place] [id number]. Gross DescriptionMETHODOLOGY:The therascreen EGFR RGQ PCR Kit ([employer], [place], [place]) is a real-timequalitative PCR assay used on the SunEdison instrument for thedetection of seven types of [...] J. Med. Sci. 2013; 10: 320. 2. Deisy Odom., et al. First-line gefitinib in patients withadvanced non-small cell lung cancer harboring somatic EGFR mutations. J.Clin.Oncol. 2008;15: 2442.3. Aleks SV, Shima RICHARDSON, Toño J et al. Epidermal growth factor receptormutations in lung cancer. Nature Review/Cancer. 2007;8422-4489.This report may include one or more immunohistochemical stain results thatuse analyte specific reagents. All positive and negative controls havebeen reviewed by the attending pathologist and are satisfactory. The testswere developed and their performance characteristics determined by [facility] Pathology department. They have not been cleared or approved by the USFood and Drug Administration. The FDA has determined that such clearanceor approval is not necessary. Name Value Range Interpretation Code Description Data Shelly rce(s) Supporting Document(s) ID Date Data Source [id number] 06/25/2020 09:18:00 AM [facility] Anatomic Molecular Pathology ReportName: TOLU RATLIFFNICK: [id number] Number: [id number] Date: 06/08/2020 00:00Received Date: 06/16/2020 09:05Physician(s): BETHANY FELIX MD HAGHIR, SHAHANDEH F,[facility] [place], [place] To:LIZETT COOLEY,[facility]ITALpecimen(s) ReceivedA: Pleural fluid, Formalin Block [id number] [id number] received from [facility] in [place], [place] KRAS Mutation AnalysisDiagnosisTEST:KRAS gene mutations by [...] Miranda M.D. Attending Pathologist 06/25/2020 09:18:25Reported at [address] [place] [id number]. Gross DescriptionMETHODOLOGY:The therascreen KRAS RGQ PCR Kit is a real-time qualitative PCR assay usedon the Soteira instrument for the detection of seven somaticmutations [...] Morejon, Terri JM, Somepeter MR, et al. [place] Societyof Clinical Oncology provisional clinical opinion: testing for KRAS genemutations in patients with metastatic colorectal carcinoma to predictresponse to anti-epidermal growth factor receptor monoclonal antibodytherapy. J Clin Oncol 27:6730-9061, 2009. 2. Robbie Nichols , Peg Javed , GALINA Mace, et al.Biomarkers predicting clinical outcome of epidermal growth factor receptortargeted therapy in metastatic colorectal cancer. J Natl Cancer Elqk317:67986684, 2009.This report may include one or more immunohistochemical stain results thatuse analyte specific reagents. All positive and negative controls havebeen reviewed by the attending pathologist and are satisfactory. The testswere developed and their performance characteristics determined by [facility] Pathology department. They have not been cleared or approved by the USFood and Drug Administration. The FDA has determined that such clearanceor approval is not necessary. Name Value Range Interpretation Code Description Data Shelly rce(s) Supporting Document(s) ID Date Data Source [id number] 06/25/2020 09:10:00 AM EST [facility] Anatomic Molecular Pathology ReportName: TOLU RATLIFFMRN: [id number] Number: [id number] Date: 06/08/2020 00:00Received Date: 06/16/2020 09:01Physician(s): BETHANY FELIX MD HAGHIR, SHAHANDEH F,MDCopy To:LIZETT COOLEY,[facility]ITALpecimen(s) ReceivedA: Pleural fluid, Formalin Block [id number] A2 received from [facility] in [place], [place], ALK by FISHDiagnosisTEST:ALK gene rearrangements by [...] Miranda M.D. Attending Pathologist 06/25/2020 09:10:47Reported at [address] [place] [id number]. Gross DescriptionMETHODOLOGY:Interphase FISH is performed on paraffin embedded NSCLC utilizing theXactium Molecular ALK Break Apart FISH Probe Kit. [...] the special procedure laboratory of Department of Pathology,[facility]. This report may include one or more immunohistochemical stain results thatuse analyte specific reagents. All positive and negative controls havebeen reviewed by the attending pathologist and are satisfactory. The testswere developed and their performance characte ristics determined by [facility] Pathology department. They have not been cleared or approved by the USFood and Drug Administration. The FDA has determined that such clearanceor approval is not necessary. Name Value Range Interpretation Code Description Data Shelly rce(s) Supporting Document(s) ID Date Data Source [id number] 05/07/2020 09:36:00 AM [facility] ([facility]) Name Value Range Interpretation Code Description Data Shelly rce(s) Supporting Document(s) Reported Physicians See Note Reported Physici ans [facility] ([facility]) Note: Reported Physicians:Ordering: Esha De La Garza AAttending: ESHA TALAMANTESConsulting: Alex TALAMANTES To: Esha Talamantes ID Date Data Source [id number] 05/07/2020 09:36:00 AM [facility] ([facility]) Name Value Range Interpretation Code Description Data Shelly rce(s) Supporting Document(s) Procalcitonin [Mass/volume] in Serum or Plasma by Immunoassay 0.04 ng/mL Procalcitonin [facility] ([facility]) Note: A procalcitonin (PCT) level above 2.0 [...] obtained.Responsible Observer: (rfl) ID Date Data Source [id number] 05/07/2020 09:36:00 AM EST [facility] ([facility]) Name Value Range Interpretation Code Description Data Shelly rce(s) Supporting Document(s) Reported Physicians See Note Reported [facility] ([facility]) Note: Reported Physicians:Ordering: Beard e, Esha AAttending: VINITA, JOCELYNConsulting: VINITA, JOCELYNCopy To: Vinita, Esha ID Date Data Source [id number] 05/07/2020 09:36:00 AM [facility] ([facility]) Name Value Range Interpretation Code Description Data Shelly rce(s) Supporting Document(s) SED RATE 18 mm/hr SED RATE [facility] ([facility]) Note: Responsible Observer: (CM) SED RATE REENTER 18 SED RATE REENTER [facility] ([facility]) Note: Responsible Observer: (CM) ID Date Data Source [id number] 05/07/2020 09:36:00 AM EST [facility] ([facility]) Name Value Range Interpretation Code Description Data Shelly rce(s) Supporting Document(s) Reported Physicians See Note Reported [facility] ([facility]) Note: Reported Physicians:Ordering: Beard e, Esha AAttending: VINITA, JOCELYNConsulting: VINITA, JOCELYNCopy To: Vinita, Esha ID Date Data Source [id number] 05/07/2020 09:36:00 AM [facility] ([facility]) Name Value Range Interpretation Code Description Data Shelly rce(s) Supporting Document(s) CRP-HS 8.40 MG/L Above high normal CRP-HS [facility] ([facility]) Note: CDC/S HS-CRP CUT-OFF : RELATIVE RISK: <1.0 mg/L Low 1.0 - 3.0 mg/L Average >3.0 mg/L High Optimally, the average of HS-CRP results repeated two weeks apart should be used for risk assessment.Responsible Observer: () ID Date Data Source [id number] 05/07/2020 09:36:00 AM EST [facility] ([facility]) Name Value Range Interpretation Code Description Data Shelly rce(s) Supporting Document(s) Reported Physicians See Note Reported [facility] ([facility]) Note: Reported Physicians:Ordering: Beard e, Esha AAttending: VINITA, JOCELYNConsulting: VINITA, JOCELYNCopy To: Vinita, Esha ID Date Data Source [id number] 05/07/2020 09:36:00 AM EST [facility] ([facility]) Name Value Range Interpretation Code Description Data Shelly rce(s) Supporting Document(s) BNP 211 PG/ML Above high normal BNP [facility] ([facility]) Note: Responsible Observer: () ID Date Data Source [id number] 05/07/2020 09:36:00 AM EST [facility] ([facility]) Name Value Range Interpretation Code Description Data Shelly rce(s) Supporting Document(s) Reported Physicians See Note Reported [facility] ([facility]) Note: Reported Physicians:Ordering: Beard e, Esha AAttending: VINITA, JOCELYNConsulting: VINITA, JOCELYNCopy To: Vinita, Esha ID Date Data Source [id number] 05/07/2020 09:36:00 AM EST [facility] ([facility]) Name Value Range Interpretation Code Description Data Shelly rce(s) Supporting Document(s) TROPONIN T <0.01 NG/ML TROPONIN T [facility] ([facility]) Note: TROPONIN T0.1 ng/ml Recommended as the clinical threshold value forTroponin T.Responsible Observer: () ID Date Data Source [id number] 05/07/2020 09:36:00 AM EST [facility] ([facility]) Name Value Range Interpretation Code Description Data Shelly rce(s) Supporting Document(s) Reported Physicians See Note Reported [facility] ans [facility] ([facility]) Note: Reported Physicians:Ordering: Esha De La Garza AAttending: ESHA TALAMANTESConsulting: Alex TALAMANTES To: Esha Talamantes ID Date Data Source [id number] 05/07/2020 09:36:00 AM EST [facility] ([facility]) Name Value Range Interpretation Code Description Data Shelly rce(s) Supporting Document(s) #BASO 0.05 10\\^3/uL #BASO [facility] ([facility]) Note: Responsible Observer: () #EOS 0.38 10\\^3/uL #EOS [facility] ([facility]) Note: Responsible Observer: () #IG 0.03 10\\^3/uL #IG [facility] ([facility]) Note: Responsible Observer: () #LYMPH 1.37 10\\^3/uL #LYMPH [facility] ([facility]) Note: Responsible Observer: () #MONO 0.85 10\\^3/uL #MONO [facility] ([facility]) Note: Responsible Observer: () #NEUT 6.85 10\\^3/uL #NEUT [facility] ([facility]) Note: Responsible Observer: () #NRBC 0.00 10\\^3/uL #NRBC [facility] ([facility]) Note: Responsible Observer: (MD) %EOS 5 % %EOS [facility] ([facility]) Note: Responsible Observer: (CLD) %IG 0.3 % Above high normal %IG [facility] ([facility]) Note: Responsible Observer: (MD) %LYMPH 13 % Below low normal %LYMPH [facility] ([facility]) Note: Responsible Observer: (CLD) %MONO 7 % %MONO [facility] ([facility] [place] Note: Responsible Observer: (CLD) %NRBC 0.0 % %NRBC [facility] Note: Responsible Observer: () BAND 0 % BAND [facility] ([facility]) Note: Responsible Observer: (CLD) BASO 0.5 % BASO [facility] ([facility]) Note: Responsible Observer: () Blasts [#] in Body fluid by Manual count 0 % BLASTS [facility] ([facility]) Note: Responsible Observer: (CLD) CBC W/MANUAL DIFF See Note CBC W/MANUAL DIFF [facility] ([facility]) Note: CO RRECTED REPORT COMPLETE BLOOD COUNTResponsible Observer: (CLD) EOS 4.0 % EOS [facility] ([facility]) Note: Responsible Observer: () Hematocrit [Pure volume fraction] of Blood by Automated count 41.4 % HEMATOCRIT [facility] ([facility]) Note: Responsible Observer: () Hemoglobin [Mass/volume] in Mixed venous blood by Oximetry 14.0 g/d L HEMOGLOBIN [facility] ([facility]) Note: Responsible Observer: () LYMPH 14.4 % Below low normal LYMPH [facility] ([facility]) Note: Responsible Observer: () MANUAL DIFF SEE BELOW MANUAL DIFF [facility] ([facility]) Note: Responsible Observer: (CLD) MCH 30.2 pg MCH [facility] ([facility]) Note: Responsible Observer: () MCHC 33.8 g/dL MCHC [facility] ([facility]) Note: Responsible Observer: () MCV 89.2 fL MCV [facility] ([facility]) Note: Responsible Observer: () MONO 8.9 % Above high normal MONO [facility] ([facility]) Note: Responsible Observer: () MPV 8.6 fL MPV [facility] ([facility]) Note: Responsible Observer: () NEUT 71.9 % NEUT [facility] ([facility]) Note: Responsible Observer: () Platelets [#/area] in Blood by Microscopy high power field 300 10\\^ 3/uL PLATELETS [facility] ([facility]) Note: Responsible Observer: () RBC 4.64 10\\^6/uL RBC [facility] ([facility]) Note: Responsible Observer: () RBC MORPH NOT INDICATED RBC MORPH [facility] ([facility]) Note: FOLLOWING RE SULTS REPORTED IN ERROR MANUAL DIFF NOTINDICATED <-- *Previously reported in error 05/07/20.0948.MD . . .M{ CORRECTResponsible Observer: () RDW 12.2 % RDW [facility] ([facility]) Note: Responsible Observer: () SEGS 75 % SEGS [facility] ([facility]) Note: Responsible Observer: (MOISES) WBC 9.5 10\\^3/uL WBC [facility] ([facility]) Note: Responsible Observer: () ID Date Data Source [id number] 05/12/2020 06:51:00 AM EST [facility] Name Value Range Interpretation Code Description Data Shelly rce(s) Supporting Document(s) Procalcitonin [Mass/volume] in Serum or Plasma 0.04 ng/mL 0.00-0.08 [facility] A procalcitonin (PCT) level above 2.0 [...] ng/mL are obtained. ID Date Data Source [id number] 05/07/2020 10:37:00 AM [facility] Name Value Range Interpretation Code Description Data Shelly rce(s) Supporting Document(s) BNP 211 PG/ML 0 - 125 H [facility] ID Date Data Source [id number] 05/07/2020 10:37:00 AM [facility] Name Value Range Interpretation Code Description Data Shelly rce(s) Supporting Document(s) C reactive protein [Mass/volume] in Serum or Plasma by High sensitivity method 8.40 MG/L 1.00 - 3.00 H [facility] CDC/S HS-CRP CUT-OFF: RELATIVE RISK: <1.0 mg/L Low 1.0 - 3.0 mg/L Average >3.0 mg/L High Optimally, the average of HS-CRP results repeated two weeks apart should be used for risk assessment. ID Date Data Source [id number] 05/07/2020 10:27:00 AM [facility] Name Value Range Interpretation Code Description Data Shelly rce(s) Supporting Document(s) CBC W/MANUAL DIFF [facility] Hospital CORRECTE D REPORT COMPLETE BLOOD COUNT Leukocytes [#/volume] in Blood by Automated count 9.5 10^3/uL 4.2 - 1 1.0 [facility] Erythrocytes [#/volume] in Blood by Automated count 4.64 10^6/uL 4. 50 - 6.30 [facility] Hemoglobin [Mass/volume] in Blood 14.0 g/dL 14.0 - 16.0 [facility] Hematocrit [Volume Fraction] of Blood by Automated count 41.4 % 4 1.0 - 51.0 [facility] Erythrocyte mean corpuscular volume [Entitic volume] by Auto mated count 89.2 fL 80.0 - 94.0 [facility] Erythrocyte mean corpuscular hemoglobin [Entitic mass] by Automated count 30.2 pg 27.0 - 34.0 [facility] Erythrocyte mean corpuscular hemoglobin concentration [Mass/volume] by Automated count 33.8 g/dL 31.0 - 36.0 [facility] Erythrocyte distribution width [Ratio] by Automated count 12.2 % 11.5 - 14.8 [facility] Platelets [#/volume] in Blood by Automated count 300 10^3/uL 150 - 45 0 [facility] Platelet mean volume [Entitic volume] in Blood by Automated count 8.6 fL 7.4 - 10.4 [facility] Neutrophils/100 leukocytes in Blood by Automated count 71.9 % 37. 0 - 80.0 [facility] Lymphocytes/100 leukocytes in Blood by Manual count 14.4 % 25.0 - 40.0 L [facility] Monocytes/100 leukocytes in Blood by Automated count 8.9 % 3.0 - 8.0 H [facility] Eosinophils/100 leukocytes in Blood by Automated count 4.0 % 0.0 - 7.0 [facility] Basophils/100 leukocytes in Blood by Automated count 0.5 % 0.0 - 2.0 [facility] %IG 0.3 % 0.0 - 0.[address] [facility] al %NRBC 0.0 % 0.0 - 0.0 [facility] al Neutrophils [#/volume] in Blood by Automated count 6.85 10^3/uL 2.00 - 6.90 [facility] Lymphocytes [#/volume] in Blood by Automated count 1.37 10^3/uL 0.60 - 3.40 [facility] Monocytes [#/volume] in Blood by Automated count 0.85 10^3/uL 0.00 - 0.90 [facility] Eosinophils [#/volume] in Blood by Automated count 0.38 10^3/uL 0.00 - 0.70 [facility] Basophils [#/volume] in Blood by Automated count 0.05 10^3/uL 0.00 - 0.20 [facility] #IG 0.03 10^3/uL 0.00 - 0.10 [facility] #NRBC 0.00 10^3/uL 0.00 - 0.00 [facility] ospital MANUAL DIFF SEE BELOW [facility] ital Segmented neutrophils/100 leukocytes in Blood by Manual count 75 % 37 - 80 [facility] BAND 0 % 0 - 5 [facility] %LYMPH 13 % 25 - 40 L [facility] %MONO 7 % 3 - 8 [facility] %EOS 5 % 0 - 7 [facility] Blasts/100 leukocytes in Blood by Manual count 0 % [facility] RBC MORPH NOT INDICATED [facility] spital FOLLOWING RESULTS REPORTED IN ERROR MANUAL DIFF { CORRECT ID Date Data Source [id number] 05/07/2020 10:26:00 AM [facility] Name Value Range Interpretation Code Description Data Shelly rce(s) Supporting Document(s) TROPONIN T <0.01 NG/ML 0.00 - 0.10 [facility] ospital TROPONIN T0.1 ng/ml Recommended as the c linical threshold value forTroponin T. ID Date Data Source [id number] 05/07/2020 10:06:00 AM [facility] Name Value Range Interpretation Code Description Data Shelly rce(s) Supporting Document(s) Erythrocyte sedimentation rate by Westergren method 18 mm/hr 0 - 20 [facility] SED RATE REENTER 18 [facility] ID Date Data Source [id number] 04/30/2020 08:37:00 AM EST [facility] ([facility]) Name Value Range Interpretation Code Description Data Shelly rce(s) Supporting Document(s) Reported Physicians See Note Reported Physici ans [facility] ([facility]) Note: Reported Physicians:Ordering: Esha De La Garza AAttending: ESHA TALAMANTESConsulting: Alex TALAMANTES To: Esha Talamantes ID Date Data Source [id number] 04/30/2020 08:37:00 AM EST [facility] ([facility]) Name Value Range Interpretation Code Description Data Shelly rce(s) Supporting Document(s) CPK 59 U/L CPK [facility] ([facility]) Note: Responsible Observer: (TAD) ID Date Data Source [id number] 04/30/2020 08:37:00 AM [facility] ([facility]) Name Value Range Interpretation Code Description Data Shelly rce(s) Supporting Document(s) Reported Physicians See Note Reported Physici ans [facility] ([facility]) Note: Reported Physicians:Ordering: Esha De La Garza AAttending: ESHA TALAMANTESConsulting: JUSTUS TALAMANTESYNCopninfa To: Esha Talamantes ID Date Data Source [id number] 04/30/2020 08:37:00 AM [facility] ([facility]) Name Value Range Interpretation Code Description Data Shelly rce(s) Supporting Document(s) Cholesterol [Moles/volume] in Pericardial fluid 162 MG/DL CHOLESTEROL [facility] ([facility]) Note: Responsible Observer: (TAD) CVE PANEL See Note CVE PANEL [facility] ([facility]) Note: LIPID PANELResponsible Observe r: (TAD) HDL 40 MG/DL HDL [facility] ([facility]) Note: Responsible Observer: (TAD) Cholesterol in LDL [Mass/volume] in Serum or Plasma by Direct as say 91 mg/dL LDL [facility] ([facility]) Note: Responsible Observer: (TAD) LDL/HDL 2.28 LDL/HDL [facility] ([facility]) Note: CVE RISK CHOL/HD L LDL/HDLMEN: 1/2 AVERAGE 3.43 1.00 AVERAGE 4.97 3.55 2X AVERAGE 9.55 6.25 3X AVERAGE 23.99 7.99WOMEN: 1/2 AVERAGE 3.27 1.47 AVERAGE 4.44 3.22 2X AVERAGE 7.05 5.03 3X AVERAGE 11.04 6.14Responsible Observer: (TAD) RISK FACTOR 4.1 RISK FACTOR [facility] ([facility]) Note: Responsible Observer: (TAD) TRIGLYCERIDES 198 MG/DL Above high normal [facility] Note: Responsible Observer: (TAD) ID Date Data Source [id number] 04/30/2020 08:37:00 AM EST [facility] ([facility] Name Value Range Interpretation Code Description Data Shelly rce(s) Supporting Document(s) Reported Physicians See Note Reported Physici ans [facility] ([facility]) Note: Reported Physicians:Ordering: Beard e, Esha AAttending: VINITA, JOCELYNConsulting: VINITA, JOCELYNCopy To: Vinita, Esha ID Date Data Source [id number] 04/30/2020 08:37:00 AM EST [facility] ([facility]) Name Value Range Interpretation Code Description Data Shelly rce(s) Supporting Document(s) URIC ACID 5.1 MG/DL URIC ACID [facility] ([facility]) Note: Responsible Observer: (JULIO) ID Date Data Source [id number] 04/30/2020 08:37:00 AM EST [facility] ([facility] Name Value Range Interpretation Code Description Data Shelly rce(s) Supporting Document(s) Reported Physicians See Note Reported [facility] ([facility]) Note: Reported Physicians:Ordering: Beard e, Esha AAttending: VINITA, JOCELYNConsulting: VINITA, JOCELYNCopy To: Vinita, Esha ID Date Data Source [id number] 04/30/2020 08:37:00 AM EST [facility] ([facility]) Name Value Range Interpretation Code Description Data Shelly rce(s) Supporting Document(s) TSH 2.19 uIU/mL TSH [facility] ([facility]) Note: Responsible Observer: (TAD) ID Date Data Source [id number] 04/30/2020 09:31:00 AM [facility] Name Value Range Interpretation Code Description Data Shelly rce(s) Supporting Document(s) Thyrotropin [Units/volume] in Serum or Plasma by Detec tion limit <= 0.05 mIU/L 2.19 uIU/mL 0.47 - 5.01 [facility] ID Date Data Source [id number] 04/30/2020 09:27:00 AM [facility] Name Value Range Interpretation Code Description Data Shelly rce(s) Supporting Document(s) Urate [Mass/volume] in Serum or Plasma 5.1 MG/DL 2.5 - 8.5 [facility] ID Date Data Source [id number] 04/30/2020 09:27:00 AM [facility] Name Value Range Interpretation Code Description Data Shelly rce(s) Supporting Document(s) Creatine kinase [Enzymatic activity/volume] in Serum or Plasma 5 9 U/L 30 - 170 [facility] ID Date Data Source [id number] 04/30/2020 09:27:00 AM [facility] Name Value Range Interpretation Code Description Data Shelly rce(s) Supporting Document(s) [facility] Cholesterol [Mass/volume] in Serum or Plasma 162 MG/DL 131 - 200 [facility] Deprecated Triglyceride [Mass/volume] in Serum or Plasma 198 MG/DL 3 5 - 160 H [facility] HDL 40 MG/DL 29 - 86 [facility] Cholesterol in LDL [Mass/volume] in Serum or Plasma by Direc t assay 91 mg/dL 65 - 175 [facility] Cholesterol.total/Cholesterol in HDL [Mass Ratio] in Serum o r Plasma 4.1 3.4 - 4.9 [facility] LDL/HDL 2.28 1.00 - 3.55 [facility] CVE RISK CHOL/HDL LDL/HDLMEN: 1/2 AVERAGE 3.43 1.00 AVERAGE 4.97 3.55 2X AVERAGE 9.55 6.25 3X AVERAGE 23.99 7.99WOMEN: 1/2 AVERAGE 3.27 1.47 AVERAGE 4.44 3.22 2X AVERAGE 7.05 5.03 3X AVERAGE 11.04 6.14 ID Date Data Source [id number] 04/12/2020 09:42:00 AM EDT [facility] Name: TOLU RATLIFF : 1955 Age: 64 MR#: [id number] Admit Date: 04/11/20 Provider: Honorio De Souza MD Room #: 295 Consulting Provider: Dictation [...] % (Auto) 68.7, Lymph % (Auto) 20.9, [place]entry % (Auto) 8.4, Eos % (Auto) 1.2, [...] earance Clear, Urine pH 5.0, Ur Specific [place] 1.010,Urine Protein Negative, Urine Ketones Negative, Urine [...] 94.0 H, Lymph % (Auto) 4.2 L, [place]entry % (Auto) 1.2 L, Eos % (Auto) [...] was instructed to f/u with PMD for 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 Pt was clinically and vitally stable [...] metformin 500 mg PO DAILY 04/11/20 [History] grrjxmlxskem-pnegcsry-njxgum 1 tab PO DAILY 04/11/20 [History] azithromycin [...] PRN (Reason: Shortness Of Breath) RF: 0 [id number]-[id number] Tablet 1 tab PO DAILY RF: 0 [...] rce(s) Supporting Document(s) ID Date Data Source [id number] 04/12/2020 07:40:00 AM EDT [facility] @04/12/20 0729: MANUAL DIFF added. RFLXG = DIFF. @04/12/20728: MANUAL DIFF added. RFLXG = DIFF. Name Value Range Interpretation Code Description Data Shelly rce(s) Supporting Document(s) Leukocytes [#/volume] in Blood by Automated count 14.6 10*3/uL 4.45-10.71 Above high normal [facility] Erythrocytes [#/volume] in Blood by Automated count 4.85 10*6/uL 4.3- 6.1 N [facility] Hemoglobin [Moles/volume] in Blood 14.7 g/dL 13-18 N [facility] Hematocrit [Volume Fraction] of Blood by Automated count 44.4 % 4 2-52 N [facility] Erythrocyte mean corpuscular volume [Ent itic volume] in Cord blood by Automated count 91.5 fL 80-96 N [facility] ital Erythrocyte mean corpuscular hemoglobin [Entitic mass] by Automated count 30.3 pg 27-31 [facility] Erythrocyte mean corpuscular hemoglobin concentration [Mass/volume] in Cord blood 33.1 g/dL 33-37 N [facility] ital Erythrocyte distribution width [Entitic volume] by Automated count 13 % 11-15 N [facility] Platelets [#/volume] in Blood by Automated count 235 10*3/uL 130-472 N [facility] Platelet mean volume [Entitic volume] in Blood 9.5 fL 9.1-13.1 N [facility] Neutrophils/100 leukocytes in Blood by Automated count 94.0 % 41-77 Above high normal [facility] @PERFORM SLIDE SCAN IF NOT AGREE MAN DIF F@DOCUMENT SLIDE SCAN COMMENT Neutrophils [#/volume] in Blood by Automated count 13.8 U 1.7-7.6 Above high normal [facility] Lymphocytes/100 leukocytes in Blood by Automated count 4.2 % 14-46 Below low normal [facility] Lymphocytes [#/volume] in Blood by Automated count 0.6 U 0.6-4.6 N [facility] Monocytes/100 leukocytes in Blood by Automated count 1.2 % 4-12 Below low normal [facility] Monocytes [#/volume] in Blood by Automated count 0.2 U 0.2-1.2 N [facility] Eosinophils/100 leukocytes in Blood by Automated count 0.0 % 0-7 N [facility] Eosinophils [#/volume] in Blood by Automated count 0.0 U 0.0-0.5 N [facility] Basophils/100 leukocytes in Blood by Automated count 0.1 % 0.4-1.3 Below low normal [facility] Basophils [#/volume] in Blood by Automated count 0.0 U 0.0-0.2 N [facility] NUCLEATED RED BLOOD CELL 0 % [facility] NUCLEATED RED BLOOD CELL# 0 U [facility] Immature granulocytes [Presence] in Blood by Automated count 0-2 N [facility] Immature granulocytes [#/volume] in Blood by Automated count 0.1 U 0-0.1 N [facility] Manual Differential panel - Blood Manual Diff Added [facility] ID Date Data Source [id number] 04/12/2020 07:53:00 AM EDT [facility] @04/12/20 0729: MANUAL DIFF added. RFLXG = DIFF. @04/12/20 07: MANUAL DIFF added. RFLXG = DIFF. Name Value Range Interpretation Code Description Data Shelly rce(s) Supporting Document(s) Urea nitrogen [Mass/volume] in Serum or Plasma 19 mg/dL 9-23 N [facility] Sodium [Moles/volume] in Serum or Plasma 138 mmol/L 132-146 N [facility] Potassium [Moles/volume] in Serum or Plasma 4.6 mmol/L 3.5-5.5 N [facility] Chloride [Moles/volume] in Serum or Plasma 105 mmol/L 99-109 N [facility] Carbon dioxide, total [Moles/volume] in Serum or Plasma 25 mmol/L 20 -31 N [facility] Anion gap in Serum or Plasma 13 mmol/L 8-16 N [facility] Glucose [Mass/volume] in Serum or Plasma 212 mg/dL 74-106 Above high normal [facility] Creatinine 1.1 mg/dL 0.5-1.1 [facility] Glomerular filtration rate/1.73 sq M.pre dicted [Volume Rate/Area] in Serum or Plasma Greater Than 60 ABOVE 60 [facility] Alanine aminotransferase [Enzymatic acti vity/volume] in Serum or Plasma by With P-5'-P 30 U/L 10-49 N [facility] ital Aspartate aminotransferase [Enzymatic ac tivity/volume] in Serum or Plasma by With P-5'-P 11 U/L 0-33 N [facility] pital Alkaline phosphatase [Enzymatic activity/volume] in Serum or Plasma 58 U/L 45-129 N [facility] Calcium [Mass/volume] in Serum or Plasma 9.2 mg/dL 8.5-10.1 [facility] Bilirubin.total [Mass/volume] in Serum or Plasma 0.5 mg/dL 0.3-1.2 [facility] Albumin [Mass/volume] in Serum or Plasma by Bromocresol purple (BCP) dye binding method 3.4 g/dL 3.2-4.8 [facility] ital Protein [Mass/volume] in Serum or Plasma 7.1 g/dL 5.7-8.2 [facility] ID Date Data Source [id number] 04/12/2020 07:40:00 AM EDT [facility] @04/12/20728: MANUAL DIFF added. RFLXG = DIFF. @04/12/20 07: MANUAL DIFF added. RFLXG = DIFF. Name Value Range Interpretation Code Description Data Shelly rce(s) Supporting Document(s) Cells counted [#] 100 [facility] Neutrophils [#/volume] in Blood by Manual count 97 % 41-77 Above high normal [facility] @Are you sure? Please be sure this value is correct YES Lymphocytes [#/volume] in Blood by Manual count 3 % 14-46 Below low normal [facility] Platelets [#/volume] in Blood by Estimate APPEARS NORMAL NORMAL [facility] Morphology [Interpretation] in Blood Narrative APPEARS NORMAL NORMAL [facility] ID Date Data Source [id number] 04/12/2020 07:53:00 AM EDT [facility] @04/12/20 07: MANUAL DIFF added. RFLXG = DIFF. @04/12/20728: MANUAL DIFF added. RFLXG = DIFF. Name Value Range Interpretation Code Description Data Shelly rce(s) Supporting Document(s) Troponin I.cardiac [Mass/volume] in Serum or Plasma Less Than 0.015 0.00-0.09 N [facility] Less than 0.09 NG/ML Negative0.10 - 0.77 NG/ML High Risk0.78 NG/ML or Greater PositiveThe WHO defined the cutoff (definition for diagnosis of MO)for this method as 0.78 ng/ml. ID Date Data Source [id number] 04/12/2020 06:40:00 AM [facility] Name Value Range Interpretation Code Description Data Shelly rce(s) Supporting Document(s) Reported Physicians See Note Reported Physici karoline [facility] ([facility]) Note: Reported Physicians:Ordering: Pradeep Ferraraending: John De Souzaitting: Honorio De SouzaCopninfa To: Ancelmo De SouzaamCopninfa To: Esha Talamantes ID Date Data Source [id number] 04/12/2020 06:40:00 AM [facility] Name Value Range Interpretation Code Description Data Shelly rce(s) Supporting Document(s) Troponin I.cardiac [Mass/volume] in Serum or Plasma Less Than 0.015 Normal Troponin I [facility] ([facility]) Note: Less than 0.09 NG/ML Negative 0.10 - 0.77 NG/ML High Risk0.78 NG/ML or Greater PositiveThe WHO defined the cutoff (definition for diagnosis of MO)for this method as 0.78 ng/ml.Responsible Observer: Troponin I Troponin I 600.1101 (G) ID Date Data Source [id number] 04/12/2020 06:40:00 AM [facility] ([facility]) Name Value Range Interpretation Code Description Data Shelly rce(s) Supporting Document(s) MANUAL DIFF See Note MANUAL DIFF [facility] ([facility]) Note: NOTES OTHER/NOT INTERPRETED Cells counted 100 Lymphocytes # Bld Manual 3 %Morphology Bld-Imp APPEARS NORMAL Neutrophils # Bld Manual 97 %Platelet # Bld Est APPEARS NORMAL @Are you sure? Please be sure this value is correct YES@04/12/20 0729: MANUAL DIFF added. RFLXG = DIFF.Responsible Observer: TOTAL CELLS TOTAL CELLS COUNTED 100.2105 (A) ID Date Data Source [id number] 04/12/2020 06:40:00 AM EDT [facility] ([facility]) Name Value Range Interpretation Code Description Data Shelly rce(s) Supporting Document(s) Reported Physicians See Note Reported Physici ans [facility] ([facility]) Note: Reported Physicians:Ordering: Pradeep Ferraraending: John De Souzaitting: Pete De Souza To: Pete De Souza To: Esha Talamantes ID Date Data Source [id number] 04/12/2020 06:40:00 AM EDT [facility] ([facility]) Name Value Range Interpretation Code Description Data Shelly rce(s) Supporting Document(s) Alanine aminotransferase [Enzymatic acti vity/volume] in Serum or Plasma by With P-5'-P 30 enzyme_unit_per_liter Normal ALT SerPl w P-5' -P-cCnc [facility] ([facility]) Note: Responsible Observer: SGPT/ALT SGP T/ALT 400.1750 (G) Calcium [Mass/volume] in Serum or Plasma 9.2 MilliGramsPerDeciLiter_[Mass_Concentration_Units] Normal Calcium [facility] ([facility]) Note: Responsible Observer: Calcium Calc ium 400.2500 (G) Bilirubin.total [Mass/volume] in Serum or Plasma 0.5 MilliGramsPerDeciLiter_[Mass_Concentration_Units] Normal Bilirub [facility] ([facility]) Note: Responsible Observer: T ABDIRAHMAN Total Bilirubin 400.2600 (G) Carbon dioxide, total [Moles/volume] in Serum or Plasm a 25 MilliMolesPerLiter_[Substance_Concentration_Units] Normal CO2 [facility] ([facility]) Note: Responsible Observer: CO2 Carbon D ioxide 400.1400 (G) Chloride [Moles/volume] in Serum or Plasma 105 MilliMolesPerLiter_[Substance_Concentration_Units] Normal Chloride [facility] ([facility]) Note: Responsible Observer: Chloride Chl oride 400.1250 (G) Glucose [Mass/volume] in Serum or Plasma 212 MilliGramsPerDeciLiter_[Mass_Concentration_Units] Above high normal Glucose [facility] ([facility]) Note: Responsible Observer: Glucose Gluc ose 400.1500 (G) Potassium [Moles/volume] in Serum or Plasma 4.6 MilliMolesPerLiter_[Substance_Concentration_Units] Normal Potassium [facility] ([facility]) Note: Responsible Observer: K Potassium 400.1210 (G) Protein [Mass/volume] in Serum or Plasma 7.1 GramsPerDeciLiter_[Mass_Concentration_Units] Normal Pro t [facility] ([facility]) Note: Responsible Observer: TP Total Pro tein 400.2800 (G) Sodium [Moles/volume] in Serum or Plasma 138 MilliMolesPerLiter_[Substance_Concentration_Units] Normal Sodium [facility] ([facility]) Note: Responsible Observer: Sodium Sodiu m 400.1100 (G) Aspartate aminotransferase [Enzymatic ac tivity/volume] in Serum or Plasma by With P-5'-P 11 enzyme_unit_per_liter Normal [facility] ([facility]) Note: Responsible Observer: SGOT / AST S GOT / AST 400.1900 (G) Urea nitrogen [Mass/volume] in Serum or Plasma 19 MilliGramsPerDeciLiter_[Mass_Concentration_Units] Normal BUN [facility] ([facility]) Note: Responsible Observer: BUN Blood Ur ea Nitrogen 400.1000 (G) Anion gap in Serum or Plasma 13 MilliMolesPerLiter_[Substance_Concentration_Units] Normal Anion Gap SerPl-sCnc [facility] ([facility]) Note: Responsible Observer: ANION GAP AN ION GAP 400.1402 (E) Albumin [Mass/volume] in Serum or Plasma by Bromocresol purple (BCP) dye binding method 3.4 GramsPerDeciLiter_[Mass_Concentration_Units] Normal Albumin SerP BCP-mCnc [facility] ([facility]) Note: Responsible Observer: Albumin Albu min 400.2700 (G) Alkaline phosphatase [Enzymatic activity/volume] in Se rum or Plasma 58 enzyme_unit_per_liter Normal ALP [facility] ( [facility]) Note: Responsible Observer: ALP Alkaline Phosphatase 400.2000 (G) Glomerular filtration rate/1.73 sq M.pre dicted [Volume Rate/Area] in Serum or Plasma Greater Than 60 GFR/BSA.pred SerPlBld-ArV Rat [facility] ([facility]) Note: Responsible Observer: GFR Glomerul ar Filt Rate Calc 400.1605 (D) Creatinine [Moles/volume] in Vitreous fluid 1.1 MilliGramsPerDeciLiter_[Mass_Concentration_Units] Normal Creatinine [facility] ([facility]) Note: Responsible Observer: Creatinine C reatinine 400.1600 (G) ID Date Data Source [id number] 04/12/2020 06:40:00 AM EDT [facility] ([facility]) Name Value Range Interpretation Code Description Data Shelly rce(s) Supporting Document(s) Erythrocyte mean corpuscular volume [Ent itic volume] in Cord blood by Automated count 91.5 FemtoLiter_[SI_Volume_Units] Normal MCV Bld Co Auto [facility] ([facility]) Note: Responsible Observer: MCV MCV 100 .0600 (B) Erythrocyte distribution width [Entitic volume] by Automated cou nt 13 percent Normal RDW RBC Auto [facility] ([facility]) Note: Responsible Observer: RDW RDW 100 .0900 (B) Manual Differential panel - Blood Manual Diff Added Manual diff Bld [facility] ([facility]) Note: Responsible Observer: CBC Manual D ifferential Added 100.1990 (B) Platelet mean volume [Entitic volume] in Blood 9.5 FemtoLite r_[SI_Volume_Units] Normal PMV d [facility] ([facility]) Note: Responsible Observer: MPV MPV 100 .1100 (B) Immature granulocytes [Presence] in Blood by Automated count See No te Normal Imm Granulocytes Bld Ql Auto [facility] ([facility]) Note: [id number] Ob sports book server: IG% IG% 100.1375 (B) Hematocrit [Volume Fraction] of Blood by Automated count 44.4 perce nt Normal Hct VFr d Auto [facility] ([facility]) Note: Responsible Observer: HEMATOCRIT H EMATOCRIT 100.0500 (B) Erythrocyte mean corpuscular hemoglobin concentration [Mass/volume] in Cord blood 33.1 GramsPerDeciLiter_[Mass_Concentration_Units] Normal MCHC BldCo-mCnc [facility] ([facility]) Note: Responsible Observer: MCHC MCHC 1 00.0800 (B) Immature granulocytes [#/volume] in Blood by Automated count 0.1 Un it Imm Granulocytes # d Auto [facility] ([facility]) Note: Responsible Observer: IG# IG# 100 .1400 (B) Monocytes/100 leukocytes in Blood by Automated count 1.2 percent Below low normal Monocytes/leuk NFr d Auto [facility] ([facility]) Note: Responsible Observer: MONO % MONO % 100.1225 (B) Hemoglobin [Moles/volume] in Blood 14.7 GramsPerDeciLiter_[Mass_Concentration_Units] Normal Hgb Bld-sCnc [facility] ([facility]) Note: Responsible Observer: HGB HEMOGLOB IN 100.0400 (B) Leukocytes [#/volume] in Blood by Automated count 14.6 ThousandsPerMicroLiter_[Number_Concentration_Units] Above hi gh normal WBC # d Auto [facility] ([facility]) Note: Responsible Observer: WBC WHITE BL OOD COUNT 100.0100 (E) Basophils [#/volume] in Blood by Automated count 0.0 Unit Normal Basophils # d Auto [facility] ([facility]) Note: Responsible Observer: BASO # BASO# 100.1350 (B) Basophils/100 leukocytes in Blood by Automated count 0.1 percent Below low normal Basophils/leuk NFr Bld Auto [facility] ([facility]) Note: Responsible Observer: BASO % BASO % 100.1325 (B) Eosinophils [#/volume] in Blood by Automated count 0.0 Unit Normal Eosinophil # Bld Auto [facility] ([facility]) Note: Responsible Observer: EOS # EOS# 100.1300 (D) Eosinophils/100 leukocytes in Blood by Automated count 0.0 percent Normal Eosinophil/leuk NFr Bld Auto [facility] ([facility]) Note: Responsible Observer: EOS % EOS % 100.1275 (B) Lymphocytes [#/volume] in Blood by Automated count 0.6 Unit Normal Lymphocytes # Bld Auto [facility] ([facility]) Note: Responsible Observer: LYMPH # LYMP H# 100.1200 (B) Lymphocytes/100 leukocytes in Blood by Automated count 4.2 perce nt Below low normal Lymphocytes/leuk NFr Bld Auto [facility] ([facility]) Note: Responsible Observer: LYMPH % LYMP H % 100.1175 (B) Monocytes [#/volume] in Blood by Automated count 0.2 Unit Normal Monocytes # Bld Auto [facility] ([facility]) Note: Responsible Observer: MONO # MONO# 100.1250 (C) Neutrophils [#/volume] in Blood by Automated count 13.8 Unit Above high normal Neutrophils # Bld Auto [facility] ([facility] ) Note: Responsible Observer: NEUT# NEUT# 100.1150 (B) Neutrophils/100 leukocytes in Blood by Automated count 94.0 perc ent Above high normal Neutrophils/leuk NFr Bld Auto [facility] ([facility]) Note: @PERFORM SLIDE SCAN IF NOT AGREE M AN DIFF@DOCUMENT SLIDE SCAN COMMENTResponsible Observer: NEUT% NEUT% 100.1125 (B) Platelets [#/volume] in Blood by Automated count 235 ThousandsPerMicroLiter_[Number_Concentration_Units] Normal Platelet # Bld Auto [facility] ([facility]) Note: Responsible Observer: PLATELET COU NT PLATELET COUNT 100.1000 (D) Erythrocyte mean corpuscular hemoglobin [Entitic mass] by Automated count 30.3 PicoGram_[SI_Mass_Units] Normal MCH RBC Qn Auto [facility] ([facility]) Note: Responsible Observer: MCH MCH 100 .0700 (B) Erythrocytes [#/volume] in Blood by Automated count 4. 85 MillionsPerMicroLiter_[Number_Concentration_Units] Normal RBC # Bld Auto [facility] ([facility]) Note: Responsible Observer: RBC Red Bloo d Count 100.0300 (B) NUCLEATED RED BLOOD CELL# 0 Unit NUCLEATED RED BLOOD CELL# [facility] ([facility]) Note: Responsible Observer: NRBC# NUCLEA SABRINA RBC 100.1362 (A) NUCLEATED RED BLOOD CELL 0 percent NUCLEATED R ED BLOOD CELL [facility] ([facility]) Note: Responsible Observer: NRBC% NRBC% 100.1360 (B) Notes [TIMP] See Note NOTES [facility] ([facility]) Note: @04/12/20 0729: MANUAL DIFF added. RFLXG = DIFF. ID Date Data Source [id number] 04/12/2020 12:34:00 AM [facility] @ [facility] DATE was changed from 04/12/20 to 04/11/20@ by SHEEBA. Old specimen was [id number]. Name Value Range Interpretation Code Description Data Shelly rce(s) Supporting Document(s) Troponin I.cardiac [Mass/volume] in Serum or Plasma Less Than 0.015 0.00-0.09 [facility] Less than 0.09 NG/ML Negative0.10 - 0.77 NG/ML High Risk0.78 NG/ML or Greater PositiveThe WHO defined the cutoff (definition for diagnosis of MO)for this method as 0.78 ng/ml. ID Date Data Source [id number] 04/11/2020 10:42:00 PM [facility] @04/11/20 1840: 4hr Lactic Acid added. R FLXG = RFX LACTIC. Name Value Range Interpretation Code Description Data Shelly rce(s) Supporting Document(s) Lactate [Mass/volume] in Serum or Plasma 1.7 mmol/L 0.5-2.2 [facility] A HIGH RESULT ON THIS 4HR LACTIC ACID WI LL NOT REFLEXANOTHER - YOU MUST ORDER ONE IF YOU WANT IT REPEATED ID Date Data Source [id number] 04/11/2020 10:10:00 PM EDT [facility] ([facility]) Name Value Range Interpretation Code Description Data Shelly rce(s) Supporting Document(s) Reported Physicians See Note Reported Israel ramey [facility] ([facility]) Note: Reported Physicians:Ordering: Kian ArguelloAttending: Jeremiah, VikramAdmitting: Jeremiah, VikramCopy To: Esha Talamantes ID Date Data Source [id number] 04/11/2020 10:10:00 PM EDT [facility] ([facility]) Name Value Range Interpretation Code Description Data Shelly rce(s) Supporting Document(s) Lactate [Mass/volume] in Serum or Plasma 1.7 MilliMolesPerLiter_[Substance_Concentration_Units] Normal Lactate [facility]) Note: A HIGH RESULT ON THIS 4HR LACTIC A PIPO WILL NOT REFLEXANOTHER - YOU MUST ORDER ONE IF YOU WANT IT REPEATEDResponsible Observer: 4HR LACTIC RPT 4HR LACTIC ACID 400.2840 (G) Notes [TIMP] See Note NOTES [facility] ([facility]) Note: @04/11/20 1840: 4hr Lactic Acid ad ded. RFLXG = RFX LACTIC. ID Date Data Source [id number] 04/11/2020 10:10:00 PM EDT [facility] ([facility]) Name Value Range Interpretation Code Description Data Shelly rce(s) Supporting Document(s) Reported Physicians See Note Reported Teri karoline [facility] ([facility]) Note: Reported Physicians:Ordering: Marly Ferrarattending: Jeremiah, VikramAdmitting: Jeremiah, VikramCopy To: Jeremiah, VikramCopy To: Esha Talamantes ID Date Data Source [id number] 04/11/2020 10:10:00 PM EDT [facility] ([facility]) Name Value Range Interpretation Code Description Data Shelly rce(s) Supporting Document(s) Troponin I.cardiac [Mass/volume] in Serum or Plasma Less Than 0.015 Normal Troponin I [facility]) Note: Less than 0.09 NG/ML Negative 0.10 - 0.77 NG/ML High Risk0.78 NG/ML or Greater PositiveThe WHO defined the cutoff (definition for diagnosis of MO)for this method as 0.78 ng/ml.Responsible Observer: Troponin I Troponin I 600.1101 (G) Notes [TIMP] See Note NOTES [facility] ([facility]) Note: @ [facility] DATE was changed from 04/12 to 04/11/20@ by SHEEBA. Old specimen was [id number]. ID Date Data Source [id number] 04/11/2020 10:05:00 PM EDT [facility] VAUGHN COVID-19 IS AN ISOTHERMAL NA A TECHNOLOGYNORMAL VALUE IS "SARS-COV-2 COVID 19 NOT DETECTED"False negative results may occur if a specimen is improperlycollected,transported or handled.False negative results may also occur if amplicationinhibitors are present in the specimen or if inadequatelevels of viruses are present in the specimen.As with any molecular test, if the virus mutates in [facility], Covid-19 may not be detected or may [...] rce(s) Supporting Document(s) ID Date Data Source [id number] 04/11/2020 09:30:00 PM EDT [facility] ([facility]) Name Value Range Interpretation Code Description Data Shelly rce(s) Supporting Document(s) Reported Physicians See Note Reported Physici ans [facility] ([facility]) Note: Reported Physicians:Ordering: Kian ArguelloAttending: John De Souzaitting: Pete De Souza To: Esha Talamantes ID Date Data Source [id number] 04/11/2020 09:30:00 PM EDT [facility] ([facility]) Name Value Range Interpretation Code Description Data Shelly rce(s) Supporting Document(s) VAUGHN COVID-19 SCHOOL See Note VAUGHN COVID- 19 SCHOOL [facility] ([facility]) Note: VAUGHN COVID-19 IS AN ISOTHER MAL KRISTEN TECHNOLOGYNORMAL VALUE IS "SARS-COV-2 COVID 19 NOT DETECTED"False negative results may occur if a specimen is improperlycollected,transported or handled.False negative results may also occur if amplicationinhibitors are present in the specimen or if inadequatelevels of viruses are present in the specimen.As with any molecular test, if the virus mutates in [facility], Covid-19 may not be detected or may bedetected less predictably.ID NOW COVID-19 is intended for testing a swab directlywithout elution in viral transport media as dilution willresult in decreased detection of low positive samples thatare near the limit of detection of the test.SWAB SAMPLES ELUTED IN VTM ARE NOT APPROPRIATE FOR USE INTHIS TEST.NOSNo Organisms [id number] Organisms Detected ID Date Data Source [id number] 04/11/2020 09:17:00 PM EDT [facility] Name: TOLU RATLIFF : 1955 Age: 64 MR#: [id number] Admit Date: 04/11/20 Provider: Leonardo Alonso Room [...] 30 years old and [facility] in [place]. He reported being replaced before on anticoagulation [...] drug use. Family History: Father due to MO at age 7979 year old, he had [...] mg PO DAILY 04/11/20 04/11/20 04/11/20 History mwyhvuaygdtd-cftebojh-rjwtpq 1 tab PO DAILY 04/11/20 04/11/20 04/11/20 [...] 95 Intake Output Last 24 Hours 04/09/20 04/10/20 04/11/20 23:59 23:59 23:59 Current Weight 195 lb [...] % (Auto) 68.7, Lymph % (Auto) 20.9, [place] % (Auto) 8.4, Eos % (Auto) 1.2, [...] Appearance Clear, Urine pH 5.0, Ur Specific [place] 1.010,Urine Protein Negative, Urine Ketones Negative, Urine [...] The patient needs to follow up with team lead as regard to his DM that might affect his retina. GI stress peptic ulcer prophylaxis: Pepcid DVT prophylaxis: Anticoagulation will be indicated for prolonged admission. I counseled TOLU Anil RATLIFF on the dangers of tobacco use for [...] spent [address] De Souza Care plan: Plan of care discussed with [...] rce(s) Supporting Document(s) ID Date Data Source [id number] 04/11/2020 08:56:00 PM EDT [facility] [address] [place] [address] [phone] NAME SEX PT STATUS ACCOUNT NUMBER TOLU RATLIFF [facility] ER [id number] ORDERING PHYSICIAN LOCATION MEDICAL RECORD NO. Scott Mei MD ER [id number] ATTENDING PHYSICIAN DATE OF DATE OF EXAM/TIME [...] Trans Dt/Tm: Trans by: DT Prt Dt/Tm: 8179-2310: Total DLP = 407.00 mGy-cm 3012-1375: Total Radiation Dose = 2.4013 mSv Lifetime Dose: 4.5186 mSv Name Value Range Interpretation Code Description Data Shelly rce(s) Supporting Document(s) ID Date Data Source [id number] 04/11/2020 08:08:00 PM EDT [facility] Reason for ordering culture: Abnormal fi ndings UAMethod of Collection:: Voided Name Value Range Interpretation Code Description Data Shelly rce(s) Supporting Document(s) Color of Urine [facility] Appearance of Urine CLEAR [facility] pH of Urine by Test strip 5.0 5-8 [facility] Specific gravity of Urine by Refractometry 1.010 1.005-1.030 [facility] Leukocyte esterase [Presence] in Urine by Test strip NEGAT ELVIA [facility] Nitrite [Presence] in Urine by Test strip NEGATIVE [facility] Protein [Presence] in Urine by Test strip NEGATIVE [facility] Glucose [Mass/volume] in Urine by Automated test strip NEGATIVE NEG ATIVE [facility] Ketones [Presence] in Urine by Test strip NEGATIVE [facility] Urobilinogen [Presence] in Urine 0.2-1 EU/dl [facility] Bilirubin.total [Presence] in Urine by Automated test strip NEGATIVE [facility] Erythrocytes [#/volume] in Urine by Test strip NEGATIVE NEGATIVE [facility] URINE MICROSCOPIC? (CIF) NO [facility] ID Date Data Source [id number] 04/11/2020 07:59:00 PM EDT [facility] ([facility]) Name Value Range Interpretation Code Description Data Shelly rce(s) Supporting Document(s) Reported Physicians See Note Reported Physici ans [facility] ([facility]) Note: Reported Physicians:Ordering: Ember Arguelloending: Talita Cannon To: Esha Talamantes ID Date Data Source [id number] 04/11/2020 07:59:00 PM EDT [facility] ([facility]) Name Value Range Interpretation Code Description Data Shelly rce(s) Supporting Document(s) Urobilinogen [Presence] in Urine See Note Uro bilinogen Ur Ql [facility] ([facility]) Note: 0.2 EU/dl0.2 [id number] E U/dlResponsible Observer: UROBILINOGEN UROBILINOGEN 300.4500 (C) Erythrocytes [#/volume] in Urine by Test strip NEGATIVE RBC # Ur Strip [facility] ([facility]) Note: Responsible Observer: BLOOD BLOOD 300.4652 (C) Protein [Presence] in Urine by Test strip See Note Prot Ur Ql Strip [facility] ([facility]) Note: [id number] EResponsible Observer: PROTEIN PROTEIN 300.3750 (C) Ketones [Presence] in Urine by Test strip See Note Ketones Ur Ql Strip [facility] ([facility]) Note: [id number] EResponsible Observer: KETONE KETONE 300.3900 (C) Bilirubin.total [Presence] in Urine by Automated test strip See Not e Bilirub Ur Ql Strip.auto [facility] ([facility]) Note: [id number] EResponsible Observer: BILIRUBIN BILIRUBIN 300.4550 (C) Glucose [Mass/volume] in Urine by Automated test strip NEGATIVE Glucose Ur Strip.auto-mCnc [facility] ([facility]) Note: Responsible Observer: GLUCOSE GLUC OSE 300.3850 (C) Appearance of Urine See Note [facility] Note: CLEARCLEARLCLEARResponsible Observ er: APPEARANCE APPEARANCE 300.3400 (A) Color of Urine See Note Color Ur [facility] ([facility]) Note: YELLOWYELLOWLYELLOWResponsible Obs erver: COLOR COLOR 300.3330 (A) Leukocyte esterase [Presence] in Urine by Test strip See Note Leukocyte esterase Ur Ql Strip [facility] ([facility]) Note: [id number] EResponsible Observer: LEUKOCYTES LEUKOCYTES 300.3576 (C) Nitrite [Presence] in Urine by Test strip See Note Nitrite Ur Ql Strip [facility] ([facility]) Note: [id number] EResponsible Observer: NITRITE NITRITE 300.3652 (B) pH of Urine by Test strip 5.0 pH Ur Stri p [facility] ([facility]) Note: Responsible Observer: PH PH 300.3 450 (C) Specific gravity of Urine by Refractometry 1.010 Sp Gr Ur Refractometry [facility] ([facility]) Note: Responsible Observer: SP GRAVITY U RINE SPECIFIC GRAVITY-MAN 300.3475 (C) URINE MICROSCOPIC? (CIF) NO URINE MICRO SCOPIC? (CIF) [facility] ([facility]) Note: Responsible Observer: UA URINE KEENAN ROSCOPIC PENDING 300.4665 (D) Notes [TIMP] See Note NOTES [facility] ([facility]) Note: Reason for ordering culture: Abnor mal findings UAMethod of Collection:: Voided ID Date Data Source [id number] 04/11/2020 07:16:00 PM EDT [facility] [address] [place] [address] [phone] NAME SEX PT STATUS ACCOUNT NUMBER Tolu Ratliff PRE ER [id number] ORDERING PHYSICIAN LOCATION MEDICAL RECORD NO. Kian Cannon MD ER [id number] ATTENDING PHYSICIAN DATE OF DATE OF EXAM/TIME [...] Trans Dt/Tm: Trans by: DT Prt Dt/Tm: 6287-3482: Total DLP = 683.00 mGy-cm 8075-6435: Total Radiation Dose = 2.1173 mSv Lifetime Dose: 2.1173 mSv Name Value Range Interpretation Code Description Data Shelly rce(s) Supporting Document(s) ID Date Data Source [id number] 04/11/2020 06:34:00 PM EDT [facility] [address] [place] [address] [phone] NAME SEX PT STATUS ACCOUNT NUMBER Tolu Ratliff [facility] ER [id number] ORDERING PHYSICIAN LOCATION MEDICAL RECORD NO. Kian Cannon MD ER [id number] ATTENDING PHYSICIAN DATE OF DATE OF EXAM/TIME [...] Trans Dt/Tm: Trans by: DT Prt Dt/Tm: [id number]: Total DLP = 0.00 mGy-cm Fluoroscopy Time (in secs): Name Value Range Interpretation Code Description Data Shelly rce(s) Supporting Document(s) ID Date Data Source [id number] 04/11/2020 06:40:00 PM [facility] Special Instructions: Lab may order repe at test if initial test elevatedPhysician If elevated, reflex second test in 4-6 hrs Name Value Range Interpretation Code Description Data Shelly rce(s) Supporting Document(s) Lactic w Rfx (if elevated) 2.1 mmol/L 0.5-2.2 N [facility] Called to RYAN @ 1835 by Carlos Child. Results readback. ID Date Data Source [id number] 04/16/2020 05:57:00 PM [facility] Special Instructions: Lab may order repe at test if initial test elevatedPhysician If elevated, reflex second test in 4-6 hrs Name Value Range Interpretation Code Description Data Shelly rce(s) Supporting Document(s) Bacteria identified in Blood by Culture [facility] NO GROWTH AFTER 5 DAYS ID Date Data Source [id number] 04/11/2020 11:28:00 PM [facility] Special Instructions: from the last lab sample, otherwise, from the next Name Value Range Interpretation Code Description Data Shelly rce(s) Supporting Document(s) Erythrocyte sedimentation rate by Westergren method 13 mm/hr 0-20 N [facility] @[facility] manual test result: 13@by Tori Schultz at 04/11/20 2328. ID Date Data Source [id number] 04/11/2020 06:00:00 PM [facility] Name Value Range Interpretation Code Description Data Shelly rce(s) Supporting Document(s) Leukocytes [#/volume] in Blood by Automated count 10.4 10*3/uL 4.45-1 0.71 N [facility] Erythrocytes [#/volume] in Blood by Automated count 5.03 10*6/uL 4.3- 6.1 N [facility] Hemoglobin [Moles/volume] in Blood 15.5 g/dL 13-18 N [facility] Hematocrit [Volume Fraction] of Blood by Automated count 46.2 % 4 2-52 N [facility] Erythrocyte mean corpuscular volume [Ent itic volume] in Cord blood by Automated count 91.8 fL 80-96 N [facility] ital Erythrocyte mean corpuscular hemoglobin [Entitic mass] by Automated count 30.8 pg 27-31 N [facility] l Erythrocyte mean corpuscular hemoglobin concentration [Mass/volume] in Cord blood 33.5 g/dL 33-37 N [facility] Erythrocyte distribution width [Entitic volume] by Automated count 12 % 11-15 N [facility] Platelets [#/volume] in Blood by Automated count 243 10*3/uL 130-472 N [facility] Platelet mean volume [Entitic volume] in Blood 9.3 fL 9.1-13.1 N [facility] Neutrophils/100 leukocytes in Blood by Automated count 68.7 % 41- 77 N [facility] Neutrophils [#/volume] in Blood by Automated count 7.2 U 1.7-7.6 N [facility] Lymphocytes/100 leukocytes in Blood by Automated count 20.9 % 14- 46 N [facility] Lymphocytes [#/volume] in Blood by Automated count 2.2 U 0.6-4.6 N [facility] Monocytes/100 leukocytes in Blood by Automated count 8.4 % 4-12 N [facility] Monocytes [#/volume] in Blood by Automated count 0.9 U 0.2-1.2 N [facility] Eosinophils/100 leukocytes in Blood by Automated count 1.2 % 0-7 N [facility] Eosinophils [#/volume] in Blood by Automated count 0.1 U 0.0-0.5 N [facility] Basophils/100 leukocytes in Blood by Automated count 0.5 % 0.4-1 .3 N [facility] Basophils [#/volume] in Blood by Automated count 0.1 U 0.0-0.2 N [facility] NUCLEATED RED BLOOD CELL 0 % [facility] NUCLEATED RED BLOOD CELL# 0 U [facility] Immature granulocytes [Presence] in Blood by Automated count 0-2 N [facility] Immature granulocytes [#/volume] in Blood by Automated count 0.0 U 0-0.1 N [facility] Manual Differential panel - Blood NO [facility] ID Date Data Source [id number] 04/11/2020 06:25:00 PM EDT [facility] Name Value Range Interpretation Code Description Data Shelly rce(s) Supporting Document(s) Urea nitrogen [Mass/volume] in Serum or Plasma 17 mg/dL 9-23 N [facility] Sodium [Moles/volume] in Serum or Plasma 138 mmol/L 132-146 N [facility] Potassium [Moles/volume] in Serum or Plasma 3.9 mmol/L 3.5-5.5 [facility] Chloride [Moles/volume] in Serum or Plasma 103 mmol/L 99-109 [facility] Carbon dioxide, total [Moles/volume] in Serum or Plasma 26 mmol/L 20 -31 N [facility] Anion gap in Serum or Plasma 13 mmol/L 8-16 [facility] Glucose [Mass/volume] in Serum or Plasma 150 mg/dL 74-106 Above high normal [facility] Creatinine 1.0 mg/dL 0.5-1.1 [facility] Glomerular filtration rate/1.73 sq M.pre dicted [Volume Rate/Area] in Serum or Plasma Greater Than 60 ABOVE 60 [facility] Alanine aminotransferase [Enzymatic acti vity/volume] in Serum or Plasma by With P-5'-P 33 U/L 10-49 N [facility] ital Aspartate aminotransferase [Enzymatic ac tivity/volume] in Serum or Plasma by With P-5'-P 15 U/L 0-33 N [facility] pital Alkaline phosphatase [Enzymatic activity/volume] in Serum or Plasma 60 U/L 45-129 N [facility] Calcium [Mass/volume] in Serum or Plasma 9.4 mg/dL 8.5-10.1 [facility] Bilirubin.total [Mass/volume] in Serum or Plasma 0.8 mg/dL 0.3-1.2 N [facility] Albumin [Mass/volume] in Serum or Plasma by Bromocresol purple (BCP) dye binding method 3.8 g/dL 3.2-4.8 N [facility] ital Protein [Mass/volume] in Serum or Plasma 8.0 g/dL 5.7-8.2 N [facility] ID Date Data Source [id number] 04/11/2020 06:25:00 PM EDT [facility] Name Value Range Interpretation Code Description Data Shelly rce(s) Supporting Document(s) Troponin I.cardiac [Mass/volume] in Serum or Plasma Less Than 0.015 0.00-0.09 N [facility] Less than 0.09 NG/ML Negative0.10 - 0.77 NG/ML High Risk0.78 NG/ML or Greater PositiveThe WHO defined the cutoff (definition for diagnosis of MO)for this method as 0.78 ng/ml. ID Date Data Source [id number] 04/11/2020 06:24:00 PM EDT [facility] Name Value Range Interpretation Code Description Data Shelly rce(s) Supporting Document(s) Magnesium [Mass/volume] in Serum or Plasma 2.3 mg/dL 1.3-2.7 N [facility] ID Date Data Source [id number] 04/11/2020 06:23:00 PM EDT [facility] Name Value Range Interpretation Code Description Data Shelly rce(s) Supporting Document(s) Creatine kinase [Enzymatic activity/volume] in Serum or Plasma 158 U/L 33-211 N [facility] Creatine kinase.MB [Enzymatic activity/volume] in Serum or P lasma 3.8 ng/mL 0.0-5.0 N [facility] Chemistry studies (set) 2.4 % [facility] ID Date Data Source [id number] 04/11/2020 05:55:[address] [facility] ([facility]) Name Value Range Interpretation Code Description Data Shelly rce(s) Supporting Document(s) Reported Physicians See Note Reported Physici karoline [facility] ([facility]) Note: Reported Physicians:Ordering: Kian ArguelloAttending: John De Souzaitting: Pete De Souza To: Esha Talamantes ID Date Data Source [id number] 04/11/2020 05:55:00 PM EDT [facility] ([facility]) Name Value Range Interpretation Code Description Data Shelly rce(s) Supporting Document(s) Bacteria identified in Blood by Culture See Note Bacteria Bld Cult [facility] ([facility]) Note: NG5DNo growth.[id number] GROWTH AFTE R 5 DAYS ID Date Data Source [id number] 04/11/2020 05:55:00 PM EDT [facility] ([facility]) Name Value Range Interpretation Code Description Data Shelly rce(s) Supporting Document(s) Bacteria identified in Blood by Culture See Note Bacteria Bld Cult [facility] ([facility]) Note: NG5DNo growth.[id number] GROWTH AFTE R 5 DAYS ID Date Data Source [id number] 04/11/2020 05:55:00 PM EDT [facility] ([facility]) Name Value Range Interpretation Code Description Data Shelly rce(s) Supporting Document(s) Lactic w Rfx (if elevated) 2.1 MilliMolesPerLiter_[Substance_Concentration_Units] Normal Lactic w Rfx (if elevated) [facility] ([facility]) Note: Called to RYAN @ 1845 by Tori Kenny. Results readback.Responsible Observer: Lactic Acid Lactic Acid 400.2831 (G) Notes [TIMP] See Note NOTES [facility] ([facility]) Note: Special Instructions: Lab may orde r repeat test if initial test elevatedPhysician If elevated, reflex second test in 4-6 hrs ID Date Data Source [id number] 04/11/2020 05:55:00 PM EDT [facility] ([facility]) Name Value Range Interpretation Code Description Data Shelly rce(s) Supporting Document(s) Reported Physicians See Note Reported Physici ans [facility] ([facility]) Note: Reported Physicians:Ordering: Kian ArguelloAttending: Talita Cannon To: Esha Talamantes ID Date Data Source [id number] 04/11/2020 05:55:00 PM EDT [facility] ([facility]) Name Value Range Interpretation Code Description Data Shelly rce(s) Supporting Document(s) Alanine aminotransferase [Enzymatic acti vity/volume] in Serum or Plasma by With P-5'-P 33 enzyme_unit_per_liter Normal ALT SerPl w P-5' -[facility] ([facility]) Note: Responsible Observer: SGPT/ALT SGP T/ALT 400.1750 (G) Calcium [Mass/volume] in Serum or Plasma 9.4 MilliGramsPerDeciLiter_[Mass_Concentration_Units] Normal Calcium [facility] ([facility]) Note: Responsible Observer: Calcium Calc ium 400.2500 (G) Bilirubin.total [Mass/volume] in Serum or Plasma 0.8 MilliGramsPerDeciLiter_[Mass_Concentration_Units] Normal Bilirub [facility] ([facility]) Note: Responsible Observer: T ABDIRAHMAN Total Bilirubin 400.2600 (G) Carbon dioxide, total [Moles/volume] in Serum or Plasm a 26 MilliMolesPerLiter_[Substance_Concentration_Units] Normal CO2 [facility] ([facility]) Note: Responsible Observer: CO2 Carbon D ioxide 400.1400 (G) Chloride [Moles/volume] in Serum or Plasma 103 MilliMolesPerLiter_[Substance_Concentration_Units] Normal Chloride [facility] ([facility]) Note: Responsible Observer: Chloride Chl oride 400.1250 (G) Glucose [Mass/volume] in Serum or Plasma 150 MilliGramsPerDeciLiter_[Mass_Concentration_Units] Above high normal Glucose [facility] ([facility]) Note: Responsible Observer: Glucose Gluc ose 400.1500 (G) Potassium [Moles/volume] in Serum or Plasma 3.9 MilliMolesPerLiter_[Substance_Concentration_Units] Normal Potassium [facility] ([facility]) Note: Responsible Observer: K Potassium 400.1210 (G) Protein [Mass/volume] in Serum or Plasma 8.0 GramsPerDeciLiter_[Mass_Concentration_Units] Normal Pro t [facility] ([facility]) Note: Responsible Observer: TP Total Pro tein 400.2800 (G) Sodium [Moles/volume] in Serum or Plasma 138 MilliMolesPerLiter_[Substance_Concentration_Units] Normal Sodium [facility] ([facility]) Note: Responsible Observer: Sodium Sodiu m 400.1100 (G) Aspartate aminotransferase [Enzymatic ac tivity/volume] in Serum or Plasma by With P-5'-P 15 enzyme_unit_per_liter Normal AST SerPl w P-5' -[facility] ([facility]) Note: Responsible Observer: SGOT / AST S GOT / AST 400.1900 (G) Urea nitrogen [Mass/volume] in Serum or Plasma 17 MilliGramsPerDeciLiter_[Mass_Concentration_Units] Normal BUN [facility] ([facility]) Note: Responsible Observer: BUN Blood Ur ea Nitrogen 400.1000 (G) Anion gap in Serum or Plasma 13 MilliMolesPerLiter_[Substance_Concentration_Units] Normal Anion Gap [facility] ([facility]) Note: Responsible Observer: ANION GAP AN ION GAP 400.1402 (E) Albumin [Mass/volume] in Serum or Plasma by Bromocresol purple (BCP) dye binding method 3.8 GramsPerDeciLiter_[Mass_Concentration_Units] Normal Albumin [facility] ([facility]) Note: Responsible Observer: Albumin [place] 400.2700 (G) Alkaline phosphatase [Enzymatic activity/volume] in Se rum or Plasma 60 enzyme_unit_per_liter Normal ALP [facility] ( [facility]) Note: Responsible Observer: ALP Alkaline Phosphatase 400.2000 (G) Glomerular filtration rate/1.73 sq M.pre dicted [Volume Rate/Area] in Serum or Plasma Greater Than 60 [facility]) Note: Responsible Observer: GFR Glomerul ar Filt Rate Calc 400.1605 (D) Creatinine [Moles/volume] in Vitreous fluid 1.0 MilliGramsPerDeciLiter_[Mass_Concentration_Units] Normal Creatinine [facility] ([facility]) Note: Responsible Observer: Creatinine C reatinine 400.1600 (G) ID Date Data Source [id number] 04/11/2020 05:55:00 PM EDT [facility] ([facility]) Name Value Range Interpretation Code Description Data Shelly rce(s) Supporting Document(s) Erythrocyte mean corpuscular volume [Ent itic volume] in Cord blood by Automated count 91.8 FemtoLiter_[SI_Volume_Units] Normal MCV Bld Co Auto [facility] ([facility]) Note: Responsible Observer: MCV MCV 100 .0600 (B) Erythrocyte distribution width [Entitic volume] by Automated cou nt 12 percent Normal RDW RBC Auto [facility] ([facility]) Note: Responsible Observer: RDW RDW 100 .0900 (B) Manual Differential panel - Blood NO Ma nual diff Bld [facility] ([facility]) Note: Responsible Observer: CBC Manual D ifferential Added 100.1990 (B) Platelet mean volume [Entitic volume] in Blood 9.3 FemtoLite r_[SI_Volume_Units] Normal PMV Bld [facility] ([facility]) Note: Responsible Observer: MPV MPV 100 .1100 (B) Immature granulocytes [Presence] in Blood by Automated count See No te Normal Imm Granulocytes Bld Ql Auto [facility] ([facility]) Note: [id number] Ob sports book server: IG% IG% 100.1375 (B) Hematocrit [Volume Fraction] of Blood by Automated count 46.2 perce nt Normal Hct VFr Bld Auto [facility] ([facility]) Note: Responsible Observer: HEMATOCRIT H EMATOCRIT 100.0500 (B) Erythrocyte mean corpuscular hemoglobin concentration [Mass/volume] in Cord blood 33.5 GramsPerDeciLiter_[Mass_Concentration_Units] Normal MCHC BldCo-mCnc [facility] ([facility]) Note: Responsible Observer: MCHC MCHC 1 00.0800 (B) Immature granulocytes [#/volume] in Blood by Automated count 0.0 Un it Imm Granulocytes # Bld Auto [facility] ([facility]) Note: Responsible Observer: IG# IG# 100 .1400 (B) Monocytes/100 leukocytes in Blood by Automated count 8.4 percent Normal Monocytes/leuk NFr Bld Auto [facility] ([facility]) Note: Responsible Observer: MONO % MONO % 100.1225 (B) Hemoglobin [Moles/volume] in Blood 15.5 GramsPerDeciLiter_[Mass_Concentration_Units] Normal Hgb Bld-sCnc [facility] ([facility]) Note: Responsible Observer: HGB HEMOGLOB IN 100.0400 (B) Leukocytes [#/volume] in Blood by Automated count 10.4 ThousandsPerMicroLiter_[Number_Concentration_Units] Normal WBC # Bld Auto [facility] ([facility]) Note: Responsible Observer: WBC WHITE BL OOD COUNT 100.0100 (E) Basophils [#/volume] in Blood by Automated count 0.1 Unit Normal Basophils # Bld Auto [facility] ([facility]) Note: Responsible Observer: BASO # BASO# 100.1350 (B) Basophils/100 leukocytes in Blood by Automated count 0.5 percent Normal Basophils/leuk NFr Bld Auto [facility] ([facility]) Note: Responsible Observer: BASO % BASO % 100.1325 (B) Eosinophils [#/volume] in Blood by Automated count 0.1 Unit Normal Eosinophil # Bld Auto [facility] ([facility]) Note: Responsible Observer: EOS # EOS# 100.1300 (D) Eosinophils/100 leukocytes in Blood by Automated count 1.2 percent Normal Eosinophil/leuk NFr Bld Auto [facility] ([facility]) Note: Responsible Observer: EOS % EOS % 100.1275 (B) Lymphocytes [#/volume] in Blood by Automated count 2.2 Unit Normal Lymphocytes # Bld Auto [facility] ([facility]) Note: Responsible Observer: LYMPH # LYMP H# 100.1200 (B) Lymphocytes/100 leukocytes in Blood by Automated count 20.9 percent Normal Lymphocytes/leuk NFr Bld Auto [facility] ([facility]) Note: Responsible Observer: LYMPH % LYMP H % 100.1175 (B) Monocytes [#/volume] in Blood by Automated count 0.9 Unit Normal Monocytes # Bld Auto [facility] ([facility]) Note: Responsible Observer: MONO # MONO# 100.1250 (C) Neutrophils [#/volume] in Blood by Automated count 7.2 Unit Normal Neutrophils # Bld Auto [facility] ([facility]) Note: Responsible Observer: NEUT# NEUT# 100.1150 (B) Neutrophils/100 leukocytes in Blood by Automated count 68.7 percent Normal Neutrophils/leuk NFr Bld Auto [facility] ([facility]) Note: Responsible Observer: NEUT% NEUT% 100.1125 (B) Platelets [#/volume] in Blood by Automated count 243 ThousandsPerMicroLiter_[Number_Concentration_Units] Normal Platelet # Bld Auto [facility] ([facility]) Note: Responsible Observer: PLATELET COU NT PLATELET COUNT 100.1000 (D) Erythrocyte mean corpuscular hemoglobin [Entitic mass] by Automated count 30.8 PicoGram_[SI_Mass_Units] Normal MCH RBC Qn Auto [facility] ([facility]) Note: Responsible Observer: MCH MCH 100 .0700 (B) Erythrocytes [#/volume] in Blood by Automated count 5. 03 MillionsPerMicroLiter_[Number_Concentration_Units] Normal RBC # Bld Auto [facility] ([facility]) Note: Responsible Observer: RBC Red Bloo d Count 100.0300 (B) NUCLEATED RED BLOOD CELL# 0 Unit NUCLEATED RED BLOOD CELL# [facility] ([facility]) Note: Responsible Observer: NRBC# NUCLEA SABRINA RBC 100.1362 (A) NUCLEATED RED BLOOD CELL 0 percent NUCLEATED R ED BLOOD CELL [facility] ([facility]) Note: Responsible Observer: NRBC% NRBC% 100.1360 (B) ID Date Data Source [id number] 04/11/2020 05:55:00 PM EDT [facility] ([facility]) Name Value Range Interpretation Code Description Data Shelly rce(s) Supporting Document(s) Reported Physicians See Note Reported Physici ans [facility] ([facility]) Note: Reported Physicians:Ordering: Kian ArguelloAttending: Talita Cannon To: Esha Talamantes ID Date Data Source [id number] 04/11/2020 05:55:00 PM EDT [facility] ([facility]) Name Value Range Interpretation Code Description Data Shelly rce(s) Supporting Document(s) Magnesium [Mass/volume] in Serum or Plasma 2.3 MilliGramsPerDeciLiter_[Mass_Concentration_Units] Normal Magnesium SerPl-mCnc [facility] ([facility]) Note: Responsible Observer: Magnesium Ma gnesium 400.3300 (G) ID Date Data Source [id number] 04/11/2020 05:55:00 PM EDT [facility] ([facility]) Name Value Range Interpretation Code Description Data Shelly rce(s) Supporting Document(s) Reported Physicians See Note Reported Physici ans [facility] ([facility]) Note: Reported Physicians:Ordering: Marly Ferrarattending: John De Souzaitting: Pete De Souza To: Pete De Souza To: Esha Talamantes ID Date Data Source [id number] 04/11/2020 05:55:00 PM EDT [facility] ([facility]) Name Value Range Interpretation Code Description Data Shelly rce(s) Supporting Document(s) Erythrocyte sedimentation rate by Westergren method 13 Normal ESR Bld Qn [facility] ([facility]) Note: @Reenter manual test result: 13@by Tori Child at 04/11/20 2328.Responsible Observer: SED RATE SED RATE 100.6400 (B) Notes [TIMP] See Note NOTES [facility] ([facility]) Note: Special Instructions: from the las t lab sample, otherwise, from the next ID Date Data Source [id number] 04/11/2020 05:55:00 PM EDT [facility] ([facility]) Name Value Range Interpretation Code Description Data Shelly rce(s) Supporting Document(s) Reported Physicians See Note Reported [facility] ([facility]) Note: Reported Physicians:Ordering: Kian ArguelloAttending: Talita Cannon To: Esha Talamantes ID Date Data Source [id number] 04/11/2020 05:55:00 PM EDT [facility] ([facility]) Name Value Range Interpretation Code Description Data Shelly rce(s) Supporting Document(s) Chemistry studies (set) 2.4 percent [facility]: Responsible Observer: CK RELATIVE % CK RELATIVE % 600.0055 (A) Creatine kinase [Enzymatic activity/volume] in Serum o r Plasma 158 enzyme_unit_per_liter Normal CK [facility]) Note: Responsible Observer: CK Creatine Kinase 400.9115 (G) Creatine kinase.MB [Enzymatic activity/volume] in Seru m or Plasma 3.8 NanoGramsPerMilliLiter_[Mass_Concentration_Units] Normal CK MB [facility]) Note: Responsible Observer: CKMB Creatin e Kinase MB 600.0050 (G) ID Date Data Source [id number] 04/11/2020 05:55:[address] [facility] ([facility]) Name Value Range Interpretation Code Description Data Shelly rce(s) Supporting Document(s) Reported Physicians See Note Reported [facility]ici [facility]) Note: Reported Physicians:Ordering: Ember Arguelloending: Talita Cannon To: Esha Talamantes ID Date Data Source [id number] 04/11/2020 05:55:00 PM EDT [facility] ([facility]) Name Value Range Interpretation Code Description Data Shelly rce(s) Supporting Document(s) Troponin I.cardiac [Mass/volume] in Serum or Plasma Less Than 0.015 Normal Troponin I [facility]) Note: Less than 0.09 NG/ML Negative 0.10 - 0.77 NG/ML High Risk0.78 NG/ML or Greater PositiveThe WHO defined the cutoff (definition for diagnosis of MO)for this method as 0.78 ng/ml.Responsible Observer: Troponin I Troponin I 600.1101 (G) ID Date Data Source [id number] 04/11/2020 05:40:00 PM EDT [facility] ED Physician Documentation NAME: TOLU RATLIFF : 1955 AGE: 64 MR#: [id number] SERVICE DATE: 04/11/[address]: Kian Cannon MD PRIMARY CARE DR: Vinita,Esha Aznar M.D. ROOM#: 295 HPI (Adult, General) <Kian Cannon MD - Last Filed: 04/11/20 18:47> General Chief Complaint: Chest pain Stated Complaint: CHEST HIP PAIN Resident [facility], travel outisde home, exposure to hot [...] PFSH <Kian Cannon MD - Last Filed: 04/11/20 18:47> Medical History (Updated 04/11/20 @ 17:48 [...] % (Auto) 68.7, Lymph % (Auto) 20.9, [place] % (Auto) 8.4, Eos % (Auto) 1.2, [...] Appearance Clear, Urine pH 5.0, Ur Specific [place] 1.010,Urine Protein Negative, Urine Ketones Negative, Urine [...] % (Auto) 68.7, Lymph % (Auto) 20.9, [place] % (Auto) 8.4, Eos % (Auto) 1.2, [...] Appearance Clear, Urine pH 5.0, Ur Specific [place] 1.010,Urine Protein Negative, Urine Ketones Negative, Urine [...] Discharge Detail Disposition: Admit to [facility] Medications Medication reconciliation performed by provider at [...] rce(s) Supporting Document(s) ID Date Data Source [id number] 04/11/2020 12:00:00 AM EDT [facility] Name Value Range Interpretation Code Description Data Shelly rce(s) Supporting Document(s) SARS-CoV2 Rapid PCR [facility] This lab was ordered by [facility] pitct - ER and reported by [facility] Hospital. ID Date Data Source [id number] 08/12/2019 07:48:00 AM EST [facility] ([facility]) Name Value Range Interpretation Code Description Data Shelly rce(s) Supporting Document(s) Reported Physicians See Note Reported Physici ans [facility] ([facility]) Note: Reported Physicians:Ordering: Beard e, Esha AAttending: VINITA, JOCELYNConsulting: VINITA, JOCELYNCopy To: Vinita Esha ID Date Data Source [id number] 08/12/2019 07:48:00 AM EST [facility] ([facility]) Name Value Range Interpretation Code Description Data Shelly rce(s) Supporting Document(s) CPK 102 U/L CPK [facility] ([facility]) Note: Responsible Observer: () ID Date Data Source [id number] 08/12/2019 07:48:00 AM EST [facility] ([facility]) Name Value Range Interpretation Code Description Data Shelly rce(s) Supporting Document(s) Reported Physicians See Note Reported Physici ans [facility] ([facility]) Note: Reported Physicians:Ordering: Beard e, Esha AAttending: VINITA, JOCELYNConsulting: VINITA, JOCELYNCopy To: Vinita, Esha ID Date Data Source [id number] 08/12/2019 07:48:00 AM EST [facility] ([facility]) Name Value Range Interpretation Code Description Data Shelly rce(s) Supporting Document(s) A/G RATIO 1.7 A/G RATIO [facility] ([facility]) Note: Responsible Observer: () AFR AMER GFR >60 mL/min AFR AMER GFR [facility] ([facility]) Note: Male GFR Interprentation 20- 49 yrs [...] () 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 64 yrs AGE [facility] ([facility]) Note: Responsible Observer: () Albumin [Mass/volume] in Blood by Bromocresol purple ( BCP) dye binding method 4.3 G/DL ALBUMIN [facility] ([facility]) Note: Responsible Observer: () ALKALINE PHOS 48 U/L ALKALINE PHOS [facility] ([facility]) Note: Responsible Observer: () Anion gap in Body fluid 12.0 mmol/L ANION GAP [facility] ([facility]) Note: Responsible Observer: () BUN 15 MG/DL BUN [facility] ([facility]) Note: Responsible Observer: () BUN/CREAT 19 BUN/CREAT [facility] ([facility]) Note: Responsible Observer: () Calcium [Moles/volume] in Urine collected for unspecified durati on 9.5 MG/DL CALCIUM [facility] ([facility]) Note: Responsible Observer: () Chloride [Moles/volume] in Serum, Plasma or Blood 103 mEq/L CHLORIDE [facility] ([facility]) Note: Responsible Observer: () CO2 24 MEQ/L CO2 [facility] ([facility]) Note: Responsible Observer: () COMPREHENSIVE METABOLIC PANEL See Note COMPRE HENSIVE METABOLIC PANEL [facility] ([facility]) Note: COMPREHENSIVE METABOLIC PANELR esponsible Observer: () Creatinine [Moles/volume] in Vitreous fluid 0.8 MG/DL CREATININE [facility] ([facility]) Note: Responsible Observer: () Globulin [Mass/time] in 24 hour Urine 2.5 GM/DL GLOBULIN [facility] ([facility]) Note: Responsible Observer: () Glucose [Mass/volume] in Urine collected for unspecified duratio n 184 MG/DL Above high normal GLUCOSE [facility] ([facility]) Note: Responsible Observer: () NON-AA GFR >60 mL/min NON-AA GFR [facility] ([facility]) Note: Responsible Observer: () Potassium [Mass/volume] in Blood 4.7 mEq/L POT ASSIUM [facility] ([facility]) Note: Responsible Observer: () SGOT/AST 21 U/L SGOT/AST [facility] ([facility]) Note: Responsible Observer: () SGPT/ALT 30 U/L SGPT/ALT [facility] ([facility]) Note: Responsible Observer: () Sodium [Moles/volume] in Serum, Plasma or Blood 139 mEq/L SODIUM [facility] ([facility]) Note: Responsible Observer: () TOTAL BILI <0.7 MG/DL TOTAL BILI [facility] ([facility]) Note: Responsible Observer: () TOTAL PROTEIN 6.8 G/DL TOTAL PROTEIN [facility] ([facility]) Note: Responsible Observer: () ID Date Data Source [id number] 08/12/2019 07:48:00 AM EST [facility] ([facility]) Name Value Range Interpretation Code Description Data Shelly rce(s) Supporting Document(s) Reported Physicians See Note Reported Physici ans [place] ([facility]) Note: Reported Physicians:Ordering: Esha De La Garza AAttending: ESHA TALAMANTESConsulting: Alex TALAMANTES To: Esha Talamantes ID Date Data Source [id number] 08/12/2019 07:48:00 AM EST [facility] ([facility]) Name Value Range Interpretation Code Description Data Shelly rce(s) Supporting Document(s) CREAT UR 137.6 MG/DL Above high normal CREAT UR KIARA HAWKINS ([facility]) Note: Responsible Observer: (BLD) MA/CREAT RATIO 2.76 MCG/MG MA/CREAT RATIO JEMIMA TEJADA ([facility]) Note: The [place] [employer] ion states that Microalbuminemia is present if the Microalbumin/Creatinine ratio exceeds 30 mcg/mg. The threshold for Clinical Albuminuria is reached at 300 mcg/mg. The classification of a patient should be based upon at least 2 or 3 abnormal results on specimens collected within a 3 to 6 month timeframe.Responsible Observer: (BLD) MICROALBUMIN <12.00 MG/L Above high normal MICROALBUMIN GR [facility] ([facility]) Note: Responsible Observer: (BLD) ID Date Data Source [id number] 08/12/2019 07:48:00 AM EST [facility] ([facility]) Name Value Range Interpretation Code Description Data Shelly rce(s) Supporting Document(s) Reported Physicians See Note Reported Israel ONOFREWAY ([facility]) Note: Reported Physicians:Ordering: Esha De La Garza AAttending: ESHA TALAMANTESConsulting: ESHA TALAMANTESCopninfa To: Esha Talamantes ID Date Data Source [id number] 08/12/2019 07:48:00 AM EST [facility] ([facility]) Name Value Range Interpretation Code Description Data Shelly rce(s) Supporting Document(s) PSA 0.95 ng/mL PSA [facility] ([facility]) Note: BLDoPSA INTERP RETATIONBLDx The PSA assay [...] interchangeably.Responsible Observer: () ID Date Data Source [id number] 08/12/2019 07:48:00 AM EST [facility] ([facility]) Name Value Range Interpretation Code Description Data Shelly rce(s) Supporting Document(s) Reported Physicians See Note Reported Israel JOHNSON ([facility]) Note: Reported Physicians:Ordering: Beard e, Esha AAttending: VINITA, JOCELYNConsulting: VINITA, JOCELYNCopy To: Esha Talamantes ID Date Data Source [id number] 08/12/2019 07:48:00 AM [facility] Name Value Range Interpretation Code Description Data Shelly rce(s) Supporting Document(s) Cholesterol [Moles/volume] in Pericardial fluid 177 MG/DL CHOLESTEROL [facility] ([facility]) Note: Responsible Observer: (BLD) CVE PANEL See Note CVE PANEL [facility] ([facility]) Note: LIPID PANELResponsible Observe r: (BLD) HDL 48 MG/DL HDL [facility] ([facility]) Note: Responsible Observer: (BLD) Cholesterol in LDL [Mass/volume] in Serum or Plasma by Direct as say 91 mg/dL LDL [facility] ([facility]) Note: Responsible Observer: (BLD) LDL/HDL 1.90 LDL/HDL [facility] ([facility]) Note: CVE RISK CHOL/HD L LDL/HDLMEN: 1/2 AVERAGE 3.43 1.00 AVERAGE 4.97 3.55 2X AVERAGE 9.55 6.25 3X AVERAGE 23.99 7.99WOMEN: 1/2 AVERAGE 3.27 1.47 AVERAGE 4.44 3.22 2X AVERAGE 7.05 5.03 3X AVERAGE 11.04 6.14Responsible Observer: (BLD) RISK FACTOR 3.7 RISK FACTOR [facility] ([facility]) Note: Responsible Observer: (BLD) TRIGLYCERIDES 272 MG/DL Above high normal [facility] Note: Responsible Observer: (BLD) ID Date Data Source [id number] 08/12/2019 07:48:00 AM [facility] Name Value Range Interpretation Code Description Data Shelly rce(s) Supporting Document(s) Reported Physicians See Note Reported Physici ans [facility] ([facility]) Note: Reported Physicians:Ordering: Beard e, Esha AAttending: VINITA JOCELYNConsulting: Alex TALAMANTES To: Esha Talamantes ID Date Data Source [id number] 08/12/2019 07:48:00 AM EST [facility] ([facility]) Name Value Range Interpretation Code Description Data Shelly rce(s) Supporting Document(s) Testosterone, Serum 137 ng/dL Below low normal Testostero ne, Serum [facility] ([facility]) Note: Adult male reference interval is b ased on a population ofhealthy nonobese males (BMI <30) between 19 and 39 years old.Silas, et.al. JCEM 2017,102;1161- 1173. PMID: [id number].Responsible Observer: (rfl) ID Date Data Source [id number] 08/13/2019 08:10:00 AM EST [facility] Name Value Range Interpretation Code Description Data Shelly rce(s) Supporting Document(s) Testosterone [Mass/volume] in Serum or Plasma 137 ng/dL 264-916 L [facility] Adult male reference interval is based o n a population ofhealthy nonobese males (BMI <30) between 19 and 39 years old.Travison, et.al. JCEM 2017,102;9857-0493. PMID: [id number]. ID Date Data Source [id number] 08/12/2019 01:01:00 PM EST [facility] Name Value Range Interpretation Code Description Data Shelly rce(s) Supporting Document(s) CVE PANEL [facility] LIPID PANEL Cholesterol [Mass/volume] in Serum or Plasma 177 MG/DL 131 - 200 [facility] Deprecated Triglyceride [Mass/volume] in Serum or Plasma 272 MG/DL 3 5 - 160 H [facility] HDL 48 MG/DL 29 - 86 [facility] Ch[facility] in LDL/Cholesterol in HDL [Mass Ratio] in Serum or Plasma 91 mg/dL 65 - 175 [facility] Cholesterol.total/Cholesterol in HDL [Mass Ratio] in Serum o r Plasma 3.7 3.4 - 4.9 [facility] LDL/HDL 1.90 1.00 - 3.55 [facility] ital CVE RISK CHOL/HDL LDL/HDLMEN: 1/2 AVERAGE 3.43 1.00 AVERAGE 4.97 3.55 2X AVERAGE 9.55 6.25 3X AVERAGE 23.99 7.99WOMEN: 1/2 AVERAGE 3.27 1.47 AVERAGE 4.44 3.22 2X AVERAGE 7.05 5.03 3X AVERAGE 11.04 6.14 ID Date Data Source [id number] 08/12/2019 12:41:00 PM [facility] Name Value Range Interpretation Code Description Data Shelly rce(s) Supporting Document(s) Prostate specific Ag [Mass/volume] in Serum or Plasma 0.95 ng/mL 0.00 - 4.00 [facility] \\BLDo\\PSA INTERPRETA TION\\BLDx\\ The PSA assay should not be used alone for a screening test or diagnosis for presence or absence of malignant disease. Predictions of disease recurrence should not be based solely on values obtained from serial patient serum values. The PSA result was determined by "[employer]", on the [employer] SINA 6000. Values obtained with different assay methods or kits cannot be used interchangeably. ID Date Data Source [id number] 08/12/2019 12:10:00 PM [facility] Name Value Range Interpretation Code Description Data Shelly rce(s) Supporting Document(s) COMPREHENSIVE METABOLIC PANEL [facility] COMPREHENSIVE METABOLIC PANEL Sodium [Moles/volume] in Serum or Plasma 139 mEq/L 134 - 153 [facility] Potassium [Moles/volume] in Serum or Plasma 4.7 mEq/L 3.6 - 5.0 [facility] Chloride [Moles/volume] in Serum or Plasma 103 mEq/L 98 - 107 [facility] Carbon dioxide, total [Moles/volume] in Serum or Plasma 24 MEQ/L 22 - 30 [facility] Glucose [Mass/volume] in Serum or Plasma 184 MG/DL 65 - 110 H [facility] BUN 15 MG/DL 7 - 21 [facility] Creatinine [Mass/volume] in Serum or Plasma 0.8 MG/DL 0.7 - 1.5 [facility] BUN/CREAT 19 8 - 27 [facility] Protein [Mass/volume] in Serum or Plasma 6.8 G/DL 6.3 - 8.2 [facility] Albumin [Mass/volume] in Serum or Plasma 4.3 G/DL 3.9 - 5.0 [facility] Globulin [Mass/volume] in Serum by calculation 2.5 GM/DL 2.4 - 3.2 [facility] A/G RATIO 1.7 0.8 - 2.0 [facility] Calcium [Mass/volume] in Serum or Plasma 9.5 MG/DL 8.4 - 10.2 [facility] Bilirubin.total [Mass/volume] in Serum or Plasma <0.7 MG/DL 0.2 - 1.3 [facility] Alkaline phosphatase [Enzymatic activity/volume] in Serum or Plasma 48 U/L 38 - 126 [facility] Aspartate aminotransferase [Enzymatic activity/volume] in Serum or Plasma 21 U/L 5 - 40 [facility] Alanine aminotransferase [Enzymatic activity/volume] in Seru m or Plasma 30 U/L 7 - 56 [facility] Anion gap 3 in Serum or Plasma 12.0 mmol/L 8.0 - 16.0 [facility] AGE [address] [facility] NON-AA GFR >60 mL/min [facility] AFR AMER GFR >60 mL/min [facility] Male GFR In terprentation 20-49 [...] >32 mL/min Normal ID Date Data Source [id number] 08/12/2019 12:10:00 PM EST [facility] Name Value Range Interpretation Code Description Data Shelly rce(s) Supporting Document(s) CREAT UR 137.6 MG/DL 0.0 - 30.0 H [facility] MICROALBUMIN <12.00 MG/L 0.00 - 0.00 H [facility] MA/CREAT RATIO 2.76 MCG/MG 0.01 - 30.00 [facility] The [place] st ates that Microalbuminemia is present if the Microalbumin/Creatinine ratio exceeds 30 mcg/mg. The threshold for Clinical Albuminuria is reached at 300 mcg/mg. The classification of a patient should be based upon at least 2 or 3 abnormal results on specimens collected within a 3 to 6 month timeframe. ID Date Data Source [id number] 08/12/2019 12:03:00 PM [facility] Name Value Range Interpretation Code Description Data Shelly rce(s) Supporting Document(s) Creatine kinase [Enzymatic activity/volume] in Serum or Plasma 1 02 U/L 30 - 170 [facility] ID Date Data Source [id number] 07/09/2019 08:53:00 AM [facility] [address] [place] [address] PHONE: [phone] FAX: [phone] Name ..............: APRYL Ma Acct Number ...........................: [id number] ROOM. ............: TR1A MR Number ............................: [id number] Stay type.........: E/R Discharge Date...............:07/07/19 Admit Date .....: 07/07/19 Admit Phys .............................: SIVA TOPETE Date of ..: 1955 Family Phys ...........................: VINITA HOOPER Phone..............: [phone] Age.................................:63 Film# ...............:[id number] Sex.................................:M Unsigned transcriptions are preliminary reports and do not represent a medical or legal document MARQUES [id number] COMPLETE:07/08/19 07:30 SAVAGE [id number] Please See Scanned Results. Name Value Range Interpretation Code Description Data Shelly rce(s) Supporting Document(s) ID Date Data Source [id number] 07/08/2019 09:58:00 AM EST [facility] [address] [place] [address] PHONE: [phone] FAX: [phone] Name .................. : APRYL Ma Acct Number.................. : [id number] ROOM. ................. : [facility] MR Number ................... : [id number] Stay type ............. : E/R Discharge Date......... ... : 07/07/19 Admit Date ......... : 07/07/19 Admit Phys .................... : SIVA TOPETE Date of ....... : 1955 Family Phys ................... : VINITA HOOPER Phone .................. : [phone] Age ................................ : 63 Film# .................. .:[id number] Sex ................................. : M Unsigned transcriptions are preliminary reports and do not represent a medical or legal document CT CERV SPINE W/O BASIL [id number] COMPLETE:07/07/19 13:35 08935 Reason(s): Pain CT STUDY OF THE CERVICAL [...] [place] via fax Page 1 of 2 [place] [address] PHONE: [phone] FAX: [phone] Name .................. : APRYL Ma Acct Number.................. : [id number] ROOM. ................. : TR-1A MR Number ................... : [id number] Stay type ............. : E/R Discharge D ate......... ... : 07/07/19 Admit Date ......... : 07/07/19 Admit Phys .................... : SIVA TOPETE Date of ....... : 1955 Family Phys ................... : VINITA HOOPER Phone .................. : [phone] Age ................................ : 63 Film# .................. .:[id number] Sex ................................. : M Unsigned transcriptions are preliminary reports and do not represent a medical or legal document CT CERV SPINE W/O CONTRAS [id number] COMPLETE:07/07/19 13:35 78032 Reason(s): Pain Copy for: EMERGENCY DEPT via modem Copy for: 710 MED REC DISCHARGED Page 2 of 2 Name Value Range Interpretation Code Description Data Shelly rce(s) Supporting Document(s) ID Date Data Source [id number] 07/08/2019 09:54:00 [place] [address] PHONE: [phone] FAX: [phone] Name .................. : APRYL Ma Acct Number.................. : [id number] ROOM. ................. : TR-1A MR Number ................... : [id number] Stay type ............. : E/R Discharge Date......... ... : 07/07/19 Admit Date ......... : 07/07/19 Admit Phys .................... : SIVA EFREM Date of ....... : 1955 Family Phys ................... : VINITA HOOPER Phone .................. : [phone] Age ................................ : 63 Film# .................. .:[id number] Sex ................................. : M Unsigned transcriptions are preliminary reports and do not represent a medical or legal document [place] [id number] COMPLETE:07/07/19 13:37 03542 Reason(s): Pain LEFT ELBOW SERIES: FINDINGS: No [...] rce(s) Supporting Document(s) ID Date Data Source [id number] 07/08/2019 09:54:00 AM EST [facility] [address] [place] [address] PHONE: [phone] FAX: [phone] Name .................. : APRYL Ma Acct Number.................. : [id number] ROOM. ................. : [facility] MR Number ................... : [id number] Stay type ............. : E/R Discharge Date......... ... : 07/07/19 Admit Date ......... : 07/07/19 Admit Phys .................... : SIVA TOPETE Date of ....... : 1955 Family Phys ................... : VINITA RUFUS Phone .................. : [phone] Age ................................ : 63 Film# .................. .:[id number] Sex ................................. : M Unsigned transcriptions are preliminary reports and do not represent a medical or legal document CHEST 2 VIEWS [id number] COMPLETE:07/07/19 13:35 84914 Reason(s): Congestion CHEST X-RAY: 2-VIEWS HISTORY: Congestion [...] rce(s) Supporting Document(s) ID Date Data Source [id number] 07/07/2019 01:18:00 PM EST [facility] 1 OrderSheet [facility] Emergency Department [address] [place] [address] Phone #: ext- [phone] 07/07/2019 13:01 Patient: TOLU RATLIFF Sex: M : 1955 Age: 63yWEIGHT:88.4 kg (S) HEIGHT:71 inches (S) BMI:27.2ALLERGIES: Shellfish-derived ProductsCHIEF COMPLAINT: pain, swelling, altered sensation, pain, swelling, altered sensation, Lt, shoulders, in:, Lt,elbowsDIAGNOSIS: BursitisLAB ORDERSOrder Description Priority Entered Acknowledged InitialedCBC w Diff STAT 13:35 07/07/2019 13:46 Edna AVINA;CMP STAT 13:35 07/07/2019 13:46 Edna AVINA;Blood Culture STAT 13:35 07/07/2019 13:46 [id number] X2 (Sched Faustino Paris RN13:35 07/07/2019) PA;Blood Culture STAT 13:35 07/07/2019 13:46 [id number] X2 (Sched Faustino sparrow RN13:45 07/07/2019) PA;Lactic Acid STAT 13:35 07/07/2019 13:46 Edna Paris RN PA;PT/PTT STAT 13:35 07/07/2019 13:46 Edna Parsi RN PA;Urinalysis (Clean STAT 13:35 07/07/2019 15:25 DorisCatch) Faustino Paris RN PA;Sed. Rate STAT 13:35 07/07/2019 13:46 Edna Paris RN PA;CRP STAT 13:35 07/07/2019 13:46 Edna Paris RN PA;Troponin-T STAT 13:35 07/07/2019 13:46 Edna Paris RN PA; 2 OrderSheet [facility] Emergency Department [address] [place] [address] Phone #: ext- [phone] 07/07/2019 13:01 Patient: [...] IM 30 mg 13:35 07/07/2019 13:52 Edna AVINA;GENERAL ORDERSOrder Description Priority Entered Acknowledged Init ialedEKG 13:35 07/07/2019 13:46 Edna Paris RN PA;Taryn Wrap 15:29 07/07/2019 15:30 Edna Paris RN PA; 3 OrderSheet [facility] Emergency Department [address] [place] [address] Phone #: ext- [phone] 07/07/2019 13:01 Patient: TOLU RATLIFF Sex: M : 1955 Age: 63y[Electronically signed by Edna Paris RN (15:38 07/07/2019)][Electronically signed by Faustino Young (17:59 07/07/2019)][Electronically locked by Edna Paris RN (15:38 07/07/2019)] Name Value Range Interpretation Code Description Data Shelly rce(s) Supporting Document(s) ID Date Data Source [id number] 07/07/2019 01:18:00 PM EST [facility] 1 Medication Reconciliation Report [facility] Emergency Department [address] [place] [address] Phone #: ext- [phone] 07/07/2019 13:01 [id number] Sex: M : 1955 Age: 63yWeight: 88.4 [...] 1 pack. Refills: 0. Substitution permitted.Pharmacy - [id number] - [address] [place], [place] [id number]. .Bactrim DS 800 mg-160 mg tablet Take 1 tablet twice a day for 10 days -- Dispense 20 tablet. Refills: 2 Medication Reconciliation Report [facility] Emergency Department [address] [place] [address] Phone #: ext- [phone] 07/07/2019 13:01 Patient: TOLU RATLIFF Sex: M : 1955 Age: 63y0. Substitution permitted.Pharmacy - [id number] - [address] [place], [place] [id number]. . -- FABRICE Pena Name Value Range Interpretation Code Description Data Shelly rce(s) Supporting Document(s) ID Date Data Source [id number] 07/07/2019 01:18:00 PM [facility] 1 Medication Administration Record [facility] Emergency Department [address] [place] [address] Phone #: cua- [phone] 07/07/2019 13:01 Patient: TOLU RATLIFF Sex: M [...] rce(s) Supporting Document(s) ID Date Data Source [id number] 07/07/2019 01:18:00 PM [facility] 1 General Instructions [facility] Emergency Department [address] [place] [address] Phone #: ext- [phone] 07/07/2019 13:01 Patient: [...] tomorrow AM.Dispense 1 pack. Refills: 0. Substitution permitted.[id number] [id number] FaxNumber: [phone].Bactrim DS 800 mg-160 mg tablet Take 1 tablet twice a day for 10 days -- Dispense 20 tablet. Refills:0. Substitution permitted.[id number] [address] [place], [place] [id number]. .Follow-up:Follow up with your doctor Monday. Call for an appointment. Reason for referral: evaluation, treatment andreferral to Orthopedics for left elbow burisitis if no improvement.. Summary of care provided to patient.Understanding of the discharge instructions verbalized by patient. ADDITIONAL INFORMATIONBursitis 2 General Instructions [facility] Emergency Department [address] [place] [address] Phone #: [phone] ext- [phone] 07/07/2019 13:01 Patient: TOLU RATLIFF Sex: M [...] wrap or splint wet. You may take [id number] pain medicine to treat pain and inflammation, [...] to flare up again. 3 General Instructions [facility] Emergency Department [address] [place] [address] Phone #: ext- [phone] 07/07/2019 13:01 Patient: TOLU RATLIFF Sex: M : 1955 Age: 63yWhen to seek medical adviceCall your healthcare provider right away if any of these occur: Redness or warmth over the painful area Increasing pain or swelling at the joint Fever of 100.4F (38C) or above lasting for 24 to 48 hours, or as advised Chills [phone] [employer]. [address] [place] [address]. All rights reserved. This information is not [...] apply an elastic bandage: 4 General Instructions [facility] Emergency Department [address] [place] [address] Phone #: ext- [phone] 07/07/2019 13:01 Patient: [...] doesn't go away after bandage is removed [phone] [employer]. [address] [place] [address], [place] [address]. All rights reserved. This information is not intended as asubstitute for professional medical care. Always follow your healthcare professional's instructions. You have been given the following additional information: Bursitis TARYN Wrap 5 General Instructions [facility] Emergency Department [address] [place] [address] Phone #: ext- [id number] 07/07/2019 13:01 Patient: TOLU RATLIFF Sex: M : 1955 Age: 63y(Electronically signed by FABRICE Pena 07/07/2019 17:59) Name Value Range Interpretation Code Description Data Shelly rce(s) Supporting Document(s) ID Date Data Source [id number] 07/07/2019 01:18:00 PM EST [facility] 1 Clinical Report - Nurses [facility] Emergency Department [address] [place] [address] Phone #: ext- [phone] 07/07/2019 13:01 Patient: [...] tablet, daily. --13:05 07/07/19 Edna Paris RN Multi Vitamin Daily Oral 1 tablet, [...] RN.ADDITIONAL SURGERIES: 2 Clinical Report - Nurses [facility] Emergency Department [address] [place] [address] Phone #: ext- [phone] 07/07/2019 13:01 Patient: [...] risk identified. --13:12 07/07/19 Edna Paris RN.PHYSICAL [id number] 07/07/19. Ambulatory to room.GENERAL / NEURO / [...] Paris RN 3 Clinical Report - Nurses [facility] Emergency Department [address] [place] [address] Phone #: [phone] wrc- [phone] 07/07/2019 13:01 Patient: TOLU RATLIFF Sex: M [...] reaction and precautions. Verbalizes understanding. --13:52 07/07/19 Edna Paris RN 14:20 07/07/2019 Toradol IM Response: no adverse reaction pain is improving. Symptoms have improved the patient feels better. --15:25 07/07/19 Edna Paris RN 14:23 07/07/19. Patient transported to radiology and CT by wheelchair with civil drafting technician. --14:38 07/07/19 Edna Paris RN 14:38 07/07/19. Patient returned from radiology and CT by wheelchair with civil drafting technician. --14:38 07/07/19 Edna Paris RN 14:50 [...] F. Pain level now 4/10. --15:35 07/07/19 [place] product manufacturing professional, [place], Tech1 15:37 07/07/19. Condition at departure: improved and stable. No learning barriers present. Discharge instructions provided and reviewed with the patient. Reviewed medication(s) side effects, precautions, dosing and course information. Prescription(s) sent electronically to pharmacy (Medrol, Bactrim DS). Patient verbalized understanding. Written instructions provided in Peruvian. The patient was discharged home. He left ambulatory and via private vehicle. Patient driving. --15:38 07/07/19 Edna Paris RN.Locked/Released at 07/07/2019 15:38 by Edna Paris RN Name Value Range Interpretation Code Description Data Shelly rce(s) Supporting Document(s) ID Date Data Source [id number] 07/07/2019 01:18:00 PM EST [facility] 1 Clinical Report - Physicians/Mid Levels [facility] Emergency Department [address] [place] [address] Phone #: ext- [phone] 07/07/2019 13:01 [id number] Sex[facility] M : 1955 Age: 63y Time Seen: 13:25 07/07/2019. Arrived- By private vehicle. Historian- patient.HISTORY OF PRESENT ILLNESS Chief Complaint: UPPER EXTREMITY PAIN, SWELLING and ALTERED SENSATION and ; PAIN, SWELLING and ALTERED SENSATION IN THE LEFT SHOULDER and LEFT ELBOW. This started 2 days ago and is still present (Left elbow swelling, pt drained 6 ml clear orange fluid from elbow 1/17 with insulin needle and syringe at home.). [...] hives). 2 Clinical Report - Physicians/Mid Levels [facility] Emergency Department [address] [place] [address] Phone #: ext- [phone] 07/07/2019 13:01 Patient: [...] 2.0) 3 Clinical Report - Physicians/Mid Levels [facility] Emergency Department [address] [place] [address] Phone #: ext- [phone] 07/07/2019 13:01 Patient: [...] Male GFR Interprentation 20-49 yrs >60 mL/min Tlgqza21-07 yrs >56 mL/min Normal 60-69 yrs >49 mL/min Normal 70-79yrs>42 mL/min Normal 80 and above >35 mL/min Normal Female GFRInterpretation 20-39 yrs >60 mL/min Normal 40-49 yrs >58 mL/minNormal 50-59 yrs >51 mL/min Normal 60-69 yrs >45 mL/min Hdnsly20-02 yrs >39 mL/min Normal 80 and above [...] VenousThrombosis, Pulmonary Embolus, Tissue heart valves, Acute MO Atrial Fibrillation, Valvular heart diseaseand recurrent Systemic [...] results 4 Clinical Report - Physicians/Mid Levels [facility] Emergency Department [address] [place] [address] Phone #: ext- [phone] 07/07/2019 13:01 Patient: [...] prn. 5 Clinical Report - Physicians/Mid Levels [facility] Emergency Department [address] [place] [address] Phone #: ext- [phone] 07/07/2019 13:01 Patient: TOLU RATLIFF Sex: M : 1955 Age: 63y Serevent Diskus Inhalation : 2 puffs daily. Prescription Medications: Medrol (Chucky) 4 mg tablets in a dose pack Take 1 tablet as directed for 6 days -- start tomorrow AM. Dispense 1 pack. Refills: 0. Substitution permitted. Pharmacy - [id number] [address] [place], [place] [id number]. . Bactrim DS 800 mg-160 mg tablet Take 1 tablet twice a day for 10 days -- Dispense 20 tablet. Refills: 0. Substitution permitted. Pharmacy - [facility] #[id number] [address] [place], [place] [id number]. FaxNumber: . Follow-up: Follow up with your doctor Monday. Call for an appointment. Reason for referral: evaluation, treatment and referral to Orthopedics for left elbow burisitis if no improvement.. Summary of care provided to patient. Understanding of the discharge instructions verbalized by patient.(Electronically signed by FABRICE Pena 07/07/2019 17:59) Name Value Range Interpretation Code Description Data Shelly rce(s) Supporting Document(s) ID Date Data Source [id number] 07/07/2019 03:30:00 PM EST [facility] ([facility]) Name Value Range Interpretation Code Description Data Shelly rce(s) Supporting Document(s) Reported Physicians See Note Reported Physici ans [facility] ([facility]) Note: Reported Physicians:Ordering: Sandy UMANAending: Liyah PANIAGUAulting: Alex TALAMANTES To: Azeb Young To: Trina PANIAGUA To: Esha Talamantes ID Date Data Source [id number] 07/07/2019 03:30:00 PM EST [facility] ([facility]) Name Value Range Interpretation Code Description Data Shelly rce(s) Supporting Document(s) Bilirubin [Presence] in Peritoneal fluid NEG BILIRUBIN [facility] ([facility]) Note: Responsible Observer: () Blood [Presence] in Urine by Visual NEG BLOOD [facility] ([facility]) Note: Responsible Observer: () Clarity of Pleural fluid from Fetus clear CLARITY [facility] ([facility]) Note: Responsible Observer: () Color of Exudate from wound yellow COLOR [facility] ([facility]) Note: Responsible Observer: () Glucose [Mass/volume] in Urine collected for unspecified duration N ORM GLUCOSE [facility] ([facility]) Note: Responsible Observer: () KETONE NEG KETONE [facility] ([facility]) Note: Responsible Observer: () LEUK EST NEG LEUK EST [facility] ([facility]) Note: Responsible Observer: () MICROSCOPIC Not Indicate MICROSCOPIC [facility] ([facility]) Note: Responsible Observer: () Nitrite [Presence] in Urine by Test strip NEG NITRITE [facility] ([facility]) Note: Responsible Observer: () pH of Vaginal fluid by Test strip 5 pH [facility] ([facility]) Note: Responsible Observer: () Protein [Mass/volume] in Saliva (oral fluid) NEG PROTEIN [facility] ([facility]) Note: Responsible Observer: () SPEC GRAVITY 1.030 SPEC GRAVITY [facility] ([facility]) Note: Responsible Observer: () Urobilinogen [Presence] in Urine by Automated test strip NOR UROBILINOGEN [facility] ([facility]) Note: Responsible Observer: () SOURCE R SOURCE [facility] ([facility]) Note: Responsible Observer: () URINALYSIS See Note URINALYSIS [facility] ([facility]) Note: URINALYSISResponsible Observer : () ID Date Data Source [id number] 07/07/2019 03:53:00 PM [facility] Name Value Range Interpretation Code Description Data Shelly rce(s) Supporting Document(s) URINALYSIS [facility] yellow NORMAL: Yellow [facility] CLARITY clear NORMAL: Clear [facility] Specific gravity of Urine by Test strip 1.030 1.001 - 1.030 [facility] pH 5 5 - 9 [facility] Glucose [Mass/volume] in Urine by Test strip NORM NORMAL: Negat [facility] Bilirubin.total [Presence] in Urine by Test strip NEG NORMAL: Negative [facility] Ketones [Presence] in Urine by Test strip NEG NORMAL: Negative [facility] Protein [Mass/volume] in Urine by Test strip NEG NORMAL: Negat [facility] Nitrite [Presence] in Urine by Test strip NEG NORMAL: Negative [facility] BLOOD NEG NORMAL: Negative [facility] Leukocyte esterase [Presence] in Urine by Test strip NEG JOSE L: Negative [facility] Urobilinogen [Mass/volume] in Urine by Test strip NOR less madeleine n 1.0 mg/dL [facility] MICROSCOPIC Not Indicate [facility] ID Date Data Source [id number] 07/08/2019 09:43:00 AM [facility]ELIA @ [facility] NOTIFIED 07/08/19 @ 0900 RMMLE FT ELBOW BURSADoes the specimen need to be recollected?: YREASON REJECTED:: WRONG SWAB COLLECTEDTEST(S) ORDERED:: ANAEROBIC CULTURE LEFT ELBOW BURSA LEFT ELBOW [facility] Name Value Range Interpretation Code Description Data Shelly rce(s) Supporting Document(s) Laboratory ANAEROBIC CULTURE [facility] Laboratory studies (set) WRONG SWAB COLLECTED [facility] One or more of the tests that youordered cannot be performed.Please recollect, reorder and resubmit. ID Date Data Source [id number] 07/09/2019 07:21:00 AM [facility]EL[facility] @ [facility] NOTIFIED 07/08/19 @ 0900 RMMLE FT ELBOW BURSADoes the specimen need to be recollected?: YREASON REJECTED:: WRONG SWAB COLLECTEDTEST(S) ORDERED:: ANAEROBIC CULTURE LEFT ELBOW BURSA LEFT ELBOW [facility] Name Value Range Interpretation Code Description Data Shelly rce(s) Supporting Document(s) Gram stain result No organisms seen [facility] ID Date Data Source [id number] 07/12/2019 10:33:00 AM [facility] @ [facility] NOTIFIED 07/08/19 @ 0900 RMMLE FT ELBOW BURSADoes the specimen need to be recollected?: YREASON REJECTED:: WRONG SWAB COLLECTEDTEST(S) ORDERED:: ANAEROBIC CULTURE LEFT ELBOW BURSA LEFT ELBOW [facility] Name Value Range Interpretation Code Description Data Shelly rce(s) Supporting Document(s) Bacteria identified in Wound by Aerobe culture [facility] Culture results No growth at 4 days [facility] ID Date Data Source [id number] 07/07/2019 03:17:00 PM [facility] Name Value Range Interpretation Code Description Data Shelly rce(s) Supporting Document(s) Reported Physicians See Note Reported Terii karoline JOHNSON ([facility]) Note: Reported Physicians:Ordering: Sandy UMANAending: Liyah PANIAGUAulting: Alex TALAMANTES To: Azeb Young To: Trina PANIAGUA To: Esha Talamantes ID Date Data Source [id number] 07/07/2019 03:17:00 PM ALE[facility] JOHNS[facility] ([facility]) Name Value Range Interpretation Code Description Data Shelly rce(s) Supporting Document(s) GRAM STAIN See Note GRAM STAIN [facility] ([facility]) Note: GRAM STAIN: TEST PERFORMED AT [facility] [address] [place] [address] CLIA# [id number] SEE SCANNED REPORT COMMENT: Respo nsible Observer: () ID Date Data Source [id number] 07/07/2019 03:17:00 PM EST [facility] ([facility]) Name Value Range Interpretation Code Description Data Shelly rce(s) Supporting Document(s) Reported Physicians See Note Reported Physici ans [facility] ([facility]) Note: Reported Physicians:Ordering: Sandy UMANAending: Liyah PANIAGUAulting: Alex TALAMANTES To: Azeb Young To: Trina PANIAGUA To: Esha Talamantes ID Date Data Source [id number] 07/07/2019 03:17:00 PM [facility] Name Value Range Interpretation Code Description Data Shelly rce(s) Supporting Document(s) CULTURE WOUND See Note CULTURE WOUND [facility] ([facility]) Note: .WOUND CULTURE_{ SPECIM EN SOURCE : Result: [place] [address] CLIA# [id number] SEE SCANNED REPORT Responsible Observer: (DW) ID Date Data Source [id number] 07/12/2019 02:08:00 PM EST [facility] Name Value Range Interpretation Code Description Data Shelly rce(s) Supporting Document(s) CULTURE WOUND [facility] spital .WOUND CULTURE_{ SPECIMEN SHELLY RCE : Result: TEST PERFORMED AT [address] [address] CLIA# [id number] SEE SCANNED REPORT ID Date Data Source [id number] 07/09/2019 01:14:00 PM EST [facility] Name Value Range Interpretation Code Description Data Shelly rce(s) Supporting Document(s) GRAM STAIN [facility] juan GRAM STAIN: TEST PERFORMED AT [address] [address] CLIA# [id number] SEE SCANNED REPORT COMMENT: ID Date Data Source [id number] 07/13/2019 10:38:00 AM EST [facility] [address] Name Value Range Interpretation Code Description Data Shelly rce(s) Supporting Document(s) Bacteria identified in Blood by Culture [facility] NO GROWTH AFTER 5 DAYS ID Date Data Source [id number] 07/07/2019 02:56:00 PM EST [facility] ([facility]) Name Value Range Interpretation Code Description Data Shelly rce(s) Supporting Document(s) Reported Physicians See Note Reported Physici ans [facility] ([facility]) Note: Reported Physicians:Ordering: Sandy UMANAending: Liyah PANIAGUAulting: Alex TALAMANTES To: Azeb Young To: Trina PANIAGAU To: Esha Talamantes ID Date Data Source [id number] 07/07/2019 02:56:00 PM [facility] Name Value Range Interpretation Code Description Data Shelly rce(s) Supporting Document(s) CULTURE BLOOD See Note CULTURE BLOOD [facility] ([facility]) Note: _CULTURE BLOOD_ TEST P ERFORMED AT [address] [address] CLIA# [id number] SEE SCANNED REPORT{ PRELIMResponsible Observer: (GBT) ID Date Data Source [id number] 07/14/2019 03:41:00 AM EST [facility] Name Value Range Interpretation Code Description Data Shelly rce(s) Supporting Document(s) CULTURE BLOOD [facility] spital _CULTURE BLOOD_ TEST PERFORM ED AT [address] [address] CLIA# [id number] SEE SCANNED REPORT{ PRELIM ID Date Data Source [id number] 07/07/2019 02:01:00 PM EST [facility] ([facility]) Name Value Range Interpretation Code Description Data Shelly rce(s) Supporting Document(s) Reported Physicians See Note Reported Physici ans [facility] ([facility]) Note: Reported Physicians:Ordering: FAUSTINO UMANAAttending: VENERUS, BRYANConsulting: VINITA, JOCELYNCopy To: Christiane YoungdeCopy To: VENERUS, BRYANCopy To: Vinita, Esha ID Date Data Source [id number] 07/07/2019 02:01:00 PM EST [facility] ([facility]) Name Value Range Interpretation Code Description Data Shelly rce(s) Supporting Document(s) SED RATE 1 mm/hr SED RATE [facility] ([facility]) Note: Responsible Observer: () SED RATE REENTER 1 SED RATE REENTER [facility] ([facility]) Note: Responsible Observer: () ID Date Data Source [id number] 07/07/2019 02:01:00 PM EST [facility] ([facility]) Name Value Range Interpretation Code Description Data Shelly rce(s) Supporting Document(s) Reported Physicians See Note Reported Physici ans [facility] ([facility]) Note: Reported Physicians:Ordering: CHRISTIANE UMANADEAttending: VENERUS, BRYANConsulting: VINITA, JOCELYNCopy To: Swatsworth, WadeCopy To: VENERUS, BRYANCopy To: Vinita, Esha ID Date Data Source [id number] 07/07/2019 02:01:00 PM EST [facility] ([facility]) Name Value Range Interpretation Code Description Data Shelly rce(s) Supporting Document(s) LACTIC ACID 3.0 MMOL/L Above high normal LACTIC ACID [facility] ([facility]) Note: Responsible Observer: () ID Date Data Source [id number] 07/07/2019 02:01:00 PM EST [facility] ([facility]) Name Value Range Interpretation Code Description Data Shelly rce(s) Supporting Document(s) Reported Physicians See Note Reported Physici ans [facility] ([facility]) Note: Reported Physicians:Ordering: Sandy UMANAending: RACHEL PANIAGUAonsulting: Alex TALAMANTES To: Azeb Young To: Trina PANIAGUA To: Esha Talamantes ID Date Data Source [id number] 07/07/2019 02:01:00 PM EST [facility] ([facility]) Name Value Range Interpretation Code Description Data Shelly rce(s) Supporting Document(s) INR in Blood by Coagulation assay 0.92 Below low nor mal INR [facility] ([facility]) Note: Responsible Observer: () PROTIME 12.5 SECONDS PROTIME [facility] ([facility]) Note: Responsible Observer: () PTT 27.1 SECONDS PTT [facility] ([facility]) Note: \\BLD o\\INR INTERPRETATION\\BLDx Therapeutic range for Coumadin and related oral anticoagulants. - International Normalized Ratio (INR): 2.0 - 3.0 for Venous Thrombosis, Pulmonary Embolus, Tissue heart valves, Acute [place] Atrial Fibrillation, Valvular heart disease and recurrent [...] interferences.Responsible Observer: () ID Date Data Source [id number] 07/07/2019 02:01:00 PM EST [facility] ([facility]) Name Value Range Interpretation Code Description Data Shelly rce(s) Supporting Document(s) Reported Physicians See Note Reported Physici ans [facility] ([facility]) Note: Reported Physicians:Ordering: Sandy UMANAending: VENERUS, BRYANConsulting: VINITA, JOCELYNCopy To: Azeb Young To: VENERUS, BRYANCopy To: Vinita Esha ID Date Data Source [id number] 07/07/2019 02:01:00 PM EST [facility] ([facility]) Name Value Range Interpretation Code Description Data Shelly rce(s) Supporting Document(s) #BASO 0.04 10\\^3/uL #BASO [facility] ([facility]) Note: Responsible Observer: () #EOS 0.18 10\\^3/uL #EOS [facility] ([facility]) Note: Responsible Observer: () #IG 0.04 10\\^3/uL #IG [facility] ([facility]) Note: Responsible Observer: () #LYMPH 2.04 10\\^3/uL #LYMPH [facility] ([facility]) Note: Responsible Observer: () #MONO 0.87 10\\^3/uL #MONO [facility] ([facility]) Note: Responsible Observer: () #NEUT 8.34 10\\^3/uL Above high normal #NEUT [place] ([facility]) Note: Responsible Observer: () #NRBC 0.00 10\\^3/uL #NRBC [facility] ([facility]) Note: Responsible Observer: () %NRBC 0.0 % %NRBC [facility] ([facility]) Note: Responsible Observer: () %IG 0.3 % Above high normal %IG [facility] ([facility]) Note: Responsible Observer: () CBC W/AUTOMATED DIFF See Note CBC W/AUTOMATED DIFF [facility] ([facility]) Note: COMPLETE BLOOD COUNTResponsibl e Observer: () BASO 0.3 % BASO [facility] ([facility]) Note: Responsible Observer: () EOS 1.6 % EOS [facility] ([facility]) Note: Responsible Observer: () Hematocrit [Pure volume fraction] of Blood by Automated count 47.4 % HEMATOCRIT [facility] ([facility]) Note: Responsible Observer: () LYMPH 17.7 % Below low normal LYMPH [facility] ([facility]) Note: Responsible Observer: () Hemoglobin [Mass/volume] in Mixed venous blood by Oximetry 15.9 g/d L HEMOGLOBIN [facility] ([facility]) Note: Responsible Observer: () MANUAL DIFF NOT INDICATED MANUAL DIFF [facility] ([facility]) Note: Responsible Observer: () MCH 30.4 pg MCH [facility] ([facility]) Note: Responsible Observer: SUSAN) MCHC 33.5 g/dL MCHC [facility] ([facility]) Note: Responsible Observer: () MCV 90.6 fL MCV [facility] ([facility]) Note: Responsible Observer: () MONO 7.6 % MONO [facility] ([facility]) Note: Responsible Observer: () NEUT 72.5 % NEUT [facility] ([facility]) Note: Responsible Observer: () MPV 9.2 fL MPV [facility] ([facility]) Note: Responsible Observer: () Platelets [#/area] in Blood by Microscopy high power field 217 10\\^ 3/uL PLATELETS [facility] ([facility]) Note: Responsible Observer: SUSAN) RBC 5.23 10\\^6/uL RBC [facility] ([facility]) Note: Responsible Observer: () RBC MORPH NOT INDICATED RBC MORPH [facility] ([facility]) Note: Responsible Observer: SUSAN) RDW 12.8 % RDW [facility] ([facility]) Note: Responsible Observer: () WBC 11.5 10\\^3/uL Above high normal WBC GREE [facility] ([facility]) Note: Responsible Observer: SUSAN) ID Date Data Source [id number] 07/07/2019 02:01:00 PM EST [facility] ([facility]) Name Value Range Interpretation Code Description Data Shelly rce(s) Supporting Document(s) Reported Physicians See Note Reported [facility] ans [facility] ([facility]) Note: Reported Physicians:Ordering: CHRISTIANE UMANADEAttending: VENERUS, BRYANConsulting: VINITA, JOCELYNCopy To: Olga LidiaatsworthChristianedeCopy To: VENERUS, BRYANCopy To: Vinita, Esha ID Date Data Source [id number] 07/07/2019 02:01:00 PM EST [facility] ([facility]) Name Value Range Interpretation Code Description Data Shelly rce(s) Supporting Document(s) TROPONIN T 0.01 NG/ML TROPONIN T [facility] ([facility]) Note: TROPONIN T0.1 ng/ml Recommended as the clinical threshold value forTroponin T.Responsible Observer: () ID Date Data Source [id number] 07/07/2019 02:01:00 PM EST [facility] ([facility]) Name Value Range Interpretation Code Description Data Shelly rce(s) Supporting Document(s) Reported Physicians See Note Reported [facility] ans [facility] ([facility]) Note: Reported Physicians:Ordering: FAUSTINO UMANAAttending: VENERUS, BRYANConsulting: VINITA, JOCELYNCopy To: Christiane YoungdeCopy To: VENERUS, BRYANCopy To: Vinita Esha ID Date Data Source [id number] 07/07/2019 02:01:00 PM EST [facility] ([facility]) Name Value Range Interpretation Code Description Data Shelly rce(s) Supporting Document(s) A/G RATIO 1.8 A/G RATIO [facility] ([facility]) Note: Responsible Observer: () AFR AMER GFR >60 mL/min AFR AMER GFR [facility] ([facility]) Note: Male GFR Interprentation 20- 49 yrs [...] () 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 63 yrs AGE [facility] ([facility]) Note: Responsible Observer: () Albumin [Mass/volume] in Blood by Bromocresol purple ( BCP) dye binding method 4.8 G/DL ALBUMIN [facility] ([facility]) Note: Responsible Observer: () ALKALINE PHOS 55 U/L ALKALINE PHOS [facility] ([facility]) Note: Responsible Observer: () BUN 15 MG/DL BUN [facility] ([facility]) Note: Responsible Observer: () Anion gap in Body fluid 15.0 mmol/L ANION GAP [facility] ([facility]) Note: Responsible Observer: () BUN/CREAT 19 BUN/CREAT [facility] ([facility]) Note: Responsible Observer: () Calcium [Moles/volume] in Urine collected for unspecified durati on 10.6 MG/DL Above high normal CALCIUM [facility] ([facility]) Note: Responsible Observer: () Chloride [Moles/volume] in Serum, Plasma or Blood 102 mEq/L CHLORIDE [facility] ([facility]) Note: Responsible Observer: () CO2 24 MEQ/L CO2 [facility] ([facility]) Note: Responsible Observer: () COMPREHENSIVE METABOLIC PANEL See Note COMPRE HENSIVE METABOLIC PANEL [facility] ([facility]) Note: COMPREHENSIVE METABOLIC PANELR esponsible Observer: () Creatinine [Moles/volume] in Vitreous fluid 0.8 MG/DL CREATININE [facility] ([facility]) Note: Responsible Observer: () Globulin [Mass/time] in 24 hour Urine 2.7 GM/DL GLOBULIN [facility] ([facility]) Note: Responsible Observer: () Glucose [Mass/volume] in Urine collected for unspecified duratio n 120 MG/DL Above high normal GLUCOSE [facility] ([facility]) Note: Responsible Observer: () NON-AA GFR >60 mL/min NON-AA GFR [facility] ([facility]) Note: Responsible Observer: () Potassium [Mass/volume] in Blood 4.3 mEq/L POT ASSIUM [facility] ([facility]) Note: Responsible Observer: () SGOT/AST 26 U/L SGOT/AST ELIZABETH ([facility]) Note: Responsible Observer: () Sodium [Moles/volume] in Serum, Plasma or Blood 141 mEq/L SODIUM [facility] ([facility]) Note: Responsible Observer: () SGPT/ALT 45 U/L SGPT/ALT [facility] ([facility]) Note: Responsible Observer: () TOTAL BILI 0.7 MG/DL TOTAL BILI [facility]ABETH ([facility]) Note: Responsible Observer: () TOTAL PROTEIN 7.5 G/DL TOTAL PROTEIN [facility]ETH ([facility]) Note: Responsible Observer: () ID Date Data Source [id number] 07/07/2019 02:01:00 PM EST ELIZABETH ([facility]) Name Value Range Interpretation Code Description Data Shelly rce(s) Supporting Document(s) Reported Physicians See Note Reported Physici ans [facility] ([facility]) Note: Reported Physicians:Ordering: Sandy UMANAending: Liyah PANIAGUAulting: Alex TALAMANTES To: Azeb Young To: YUSEF PANIAGUAANCopy To: Esha Talamantes ID Date Data Source [id number] 07/07/2019 02:01:00 PM EST ELIZ[facility] ([facility]) Name Value Range Interpretation Code Description Data Shelly rce(s) Supporting Document(s) CRP-HS 1.00 MG/L CRP-HS [facility] ([facility]) Note: CDC/S HS-CRP CUT-OFF : RELATIVE RISK: <1.0 mg/L Low 1.0 - 3.0 mg/L Average >3.0 mg/L High Optimally, the average of HS-CRP results repeated two weeks apart should be used for risk assessment.Responsible Observer: () ID Date Data Source [id number] 07/07/2019 02:01:00 PM [facility] ([facility]) Name Value Range Interpretation Code Description Data Shelly rce(s) Supporting Document(s) Reported Physicians See Note Reported Physici ans [facility] ([facility]) Note: Reported Physicians:Ordering: FAUSTINO UMANAAttending: VENERUS, BRYANConsulting: VINITA, JOCELYNCopy To: Faustino YoungCopninfa To: VENERUS, BRYANCopy To: Arminda Talamantescelyn ID Date Data Source [id number] 07/07/2019 02:01:00 PM [facility] ([facility]) Name Value Range Interpretation Code Description Data Shelly rce(s) Supporting Document(s) CULTURE BLOOD See Note CULTURE BLOOD [facility] ([facility]) Note: _CULTURE BLOOD_ [place] [address] CLIA# [id number] SEE SCANNED REPORT{ PRELIMResponsible Observer: (GBT) ID Date Data Source [id number] 07/14/2019 03:40:[address] [facility] Value Range Interpretation Code Description Data Shelly rce(s) Supporting Document(s) CULTURE BLOOD [facility] spital _CULTURE BLOOD_ [place] [address] CLIA# [id number] SEE SCANNED REPORT{ PRELIM ID Date Data Source [id number] 07/07/2019 04:00:00 PM [facility] Name Value Range Interpretation Code Description Data Shelly rce(s) Supporting Document(s) Erythrocyte sedimentation rate by Westergren method 1 mm/hr 0 - 20 [facility] SED RATE REENTER 1 [facility] ID Date Data Source [id number] 07/07/2019 02:42:00 PM [facility] Name Value Range Interpretation Code Description Data Shelly rce(s) Supporting Document(s) COMPREHENSIVE METABOLIC PANEL [facility] COMPREHENSIVE METABOLIC PANEL Sodium [Moles/volume] in Serum or Plasma 141 mEq/L 134 - 153 [facility] Potassium [Moles/volume] in Serum or Plasma 4.3 mEq/L 3.6 - 5.0 [facility] Chloride [Moles/volume] in Serum or Plasma 102 mEq/L 98 - 107 [facility] Carbon dioxide, total [Moles/volume] in Serum or Plasma 24 MEQ/L 22 - 30 [facility] Glucose [Mass/volume] in Serum or Plasma 120 MG/DL 65 - 110 H [facility] BUN 15 MG/DL 7 - 21 [facility] Creatinine [Mass/volume] in Serum or Plasma 0.8 MG/DL 0.7 - 1.5 [facility] BUN/CREAT 19 8 - 27 [facility] Protein [Mass/volume] in Serum or Plasma 7.5 G/DL 6.3 - 8.2 [facility] Albumin [Mass/volume] in Serum or Plasma 4.8 G/DL 3.9 - 5.0 [facility] Globulin [Mass/volume] in Serum by calculation 2.7 GM/DL 2.4 - 3.2 [facility] A/G RATIO 1.8 0.8 - 2.0 [facility] Calcium [Mass/volume] in Serum or Plasma 10.6 MG/DL 8.4 - 10.2 H [facility] Bilirubin.total [Mass/volume] in Serum or Plasma 0.7 MG/DL 0.2 - 1.3 [facility] Alkaline phosphatase [Enzymatic activity/volume] in Serum or Plasma 55 U/L 38 - 126 [facility] Aspartate aminotransferase [Enzymatic activity/volume] in Serum or Plasma 26 U/L 5 - 40 [facility] Alanine aminotransferase [Enzymatic activity/volume] in Seru m or Plasma 45 U/L 7 - 56 [facility] Anion gap 3 in Serum or Plasma 15.0 mmol/L 8.0 - 16.0 [facility] AGE [address] [facility] al NON-AA GFR >60 mL/min [facility] ital AFR AMER GFR >60 mL/min [facility] sp[facility] Male GFR In terprentation 20-49 [...] >32 mL/min Normal ID Date Data Source [id number] 07/07/2019 02:41:00 PM EST [facility] Name Value Range Interpretation Code Description Data Shelly rce(s) Supporting Document(s) CBC W/AUTOMATED DIFF [facility] COMPLETE BLOOD COUNT Leukocytes [#/volume] in Blood by Automated count 11.5 10^3/uL 4.2 - 11.0 H [facility] Erythrocytes [#/volume] in Blood by Automated count 5.23 10^6/uL 4. 50 - 6.30 [facility] Hemoglobin [Mass/volume] in Blood 15.9 g/dL 14.0 - 16.0 [facility] Hematocrit [Volume Fraction] of Blood by Automated count 47.4 % 4 1.0 - 51.0 [facility] Erythrocyte mean corpuscular volume [Entitic volume] by Auto mated count 90.6 fL 80.0 - 94.0 [facility] Erythrocyte mean corpuscular hemoglobin [Entitic mass] by Automated count 30.4 pg 27.0 - 34.0 [facility] Erythrocyte mean corpuscular hemoglobin concentration [Mass/volume] by Automated count 33.5 g/dL 31.0 - 36.0 [facility] Erythrocyte distribution width [Ratio] by Automated count 12.8 % 11.5 - 14.8 [facility] Platelets [#/volume] in Blood by Automated count 217 10^3/uL 150 - 45 0 [facility] Platelet mean volume [Entitic volume] in Blood by Automated count 9.2 fL 7.4 - 10.4 [facility] Neutrophils/100 leukocytes in Blood by Automated count 72.5 % 37. 0 - 80.0 [facility] Lymphocytes/100 leukocytes in Blood by Manual count 17.7 % 25.0 - 40.0 L [facility] Monocytes/100 leukocytes in Blood by Automated count 7.6 % 3.0 - 8.0 [facility] Eosinophils/100 leukocytes in Blood by Automated count 1.6 % 0.0 - 7.0 [facility] Basophils/100 leukocytes in Blood by Automated count 0.3 % 0.0 - 2.0 [facility] %IG 0.3 % 0.0 - 0.0 H [facility] al %NRBC 0.0 % 0.0 - 0.0 [facility] al Neutrophils [#/volume] in Blood by Automated count 8.34 10^3/uL 2.00 - 6.90 H [facility] Lymphocytes [#/volume] in Blood by Automated count 2.04 10^3/uL 0.60 - 3.40 [facility] Monocytes [#/volume] in Blood by Automated count 0.87 10^3/uL 0.00 - 0.90 [facility] Eosinophils [#/volume] in Blood by Automated count 0.18 10^3/uL 0.00 - 0.70 [facility] Basophils [#/volume] in Blood by Automated count 0.04 10^3/uL 0.00 - 0.20 [facility] #IG 0.04 10^3/uL 0.00 - 0.10 [facility] #NRBC 0.00 10^3/uL 0.00 - 0.00 [facility] MANUAL DIFF NOT INDICATED [facility] RBC MORPH NOT INDICATED [facility] spital ID Date Data Source [id number] 07/07/2019 02:40:00 PM EST [facility] Name Value Range Interpretation Code Description Data Shelly rce(s) Supporting Document(s) TROPONIN T 0.01 NG/ML 0.00 - 0.10 [facility] spital TROPONIN T0.1 ng/ml Recommended as the c linical threshold value forTroponin T. ID Date Data Source [id number] 07/07/2019 02:40:00 PM EST [facility] Name Value Range Interpretation Code Description Data Shelly rce(s) Supporting Document(s) C reactive protein [Mass/volume] in Serum or Plasma by High sensitivity method 1.00 MG/L 1.00 - 3.00 [facility] HS-CRP CUT-OFF: RELATIVE RISK: <1.0 mg/L Low 1.0 - 3.0 mg/L Average >3.0 mg/L High Optimally, the average of HS-CRP results repeated two weeks apart should be used for risk assessment. ID Date Data Source [id number] 07/07/2019 02:40:00 PM [facility] Name Value Range Interpretation Code Description Data Shelly rce(s) Supporting Document(s) Prothrombin time (PT) 12.5 SECONDS 11.0 - 15.[address] [facility] INR in Platelet poor plasma by Coagulation assay 0.92 0.93 - 1. 23 L [facility] aPTT in Blood by Coagulation assay 27.1 SECONDS 24.8 - 36.7 [facility] \\BLDo\\INR INTERPRETATION\\BLDx\\ Therapeutic range for Coumadin and related oral anticoagulants. - International Normalized Ratio (INR): 2.0 - 3.0 for Venous Thrombosis, Pulmonary Embolus, Tissue heart valves, Acute [place] Atrial Fibrillation, Valvular heart disease and recurrent [...] and other interferences. ID Date Data Source [id number] 07/07/2019 02:39:00 PM [facility] Name Value Range Interpretation Code Description Data Shelly rce(s) Supporting Document(s) Lactate [Moles/volume] in Serum or Plasma 3.0 MMOL/L 0.2 - 2.2 H [facility] ID Date Data Source [id number] 06/25/2019 12:00:00 AM EST [facility] ([facility]) Name Value Range Interpretation Code Description Data Shelly rce(s) Supporting Document(s) Hemoglobin A1c/Hemoglobin.total in Blood 6.5 Abnormal (applies to non-numeric results) HbA1C [facility] ([facility]) ID Date Data Source [id number] 06/25/2019 12:00:00 AM EST ELIZABETH ([facility]) Name Value Range Interpretation Code Description Data Shelly rce(s) Supporting Document(s) Glucose [Mass/volume] in Urine collected for unspecified duration 1 16 Normal Glucose ELIZABETH ([facility]) Procedure Social History Code Duration Value Status Description Data Source(s ) Smoking 07/02/2020 12:00:00 AM EST Patient is a former smoker completed Patient is a former smoker [facility] ([facility], ) Alcohol intake 05/28/2020 12:00:00 AM EST Yes completed [facility] Cigarette pack-years 05/28/2020 12:00:00 AM EST UNK completed [facility] Cigarettes smoked current (pack per day) - Reported 05/28/20 12:00:00 AM EST UNK completed [facility] Smoking 05/28/2020 12:00:00 AM EST Former smoker completed Former smoker [facility] 04/12/2020 09:42:24 AM EDT Current some day smoker com pleted Current some day smoker [facility] Smoking 04/12/2020 09:42:00 AM EDT Current some day smoker com pleted Current some day smoker [facility] 04/11/2020 05:52:00 PM EDT Current every day smoker co mpleted Current every day smoker [facility] Smoking 04/11/2020 05:52:00 PM EDT Current every day smoker co mpleted Current every day smoker [facility] 05/19/2019 12:00:00 AM EST Cigarette Smoker completed Cig arette Smoker [facility] 05/19/2019 12:00:00 AM EST Current smoker completed Curre nt smoker [facility] Vital Signs ID Date Data Source UNK Name Value Range Interpretation Code Description Data Source(s) Body surface area Derived from formula 2.06 m2 2.06 m2 [facility] ([facility], ) Body weight 86.184 kg 86.184 kg DALILA ([facility], ) Alexander body weight 172 [lb_av] 172 [lb_av] [facility] ([facility], ) Body mass index (BMI) [Ratio] 26.5 kg/m2 26.5 k g/m2 [facility] ([facility]) Body weight 190.00 [lb_av] 190.00 [lb_av] [facility] ([facility]) Body height 71 [in_i] 71 [in_i] [facility] ([facility]) 5'11" Oxygen saturation in Arterial blood by Pulse oximetry 94 % 94 % [facility] ([facility]) Room Air Heart rate 90 /min 90 /min [facility] ([facility]) Diastolic blood pressure 72 mm[Hg] 72 mm[Hg] [facility] ([facility]) Systolic blood pressure 140 mm[Hg] 140 mm[Hg] [facility] ([facility]) Body surface area Derived from formula 2.03 m2 2.03 m2 [facility] ([facility]) Body weight 82.555 kg 82.555 kg [facility] ([facility]) Alexander body weight 172 [lb_av] 172 [lb_av] [facility] Body mass index (BMI) [Ratio] 25.4 kg/m2 25.4 k g/m2 [facility] ([facility]) Body weight 182.00 [lb_av] 182.00 [lb_av] [facility] Body height 71 [in_i] 71 [in_i] [facility] ([facility]) 5'11" Oxygen saturation in Arterial blood by Pulse oximetry 93 % 93 % [facility] ([facility]) Room Air Heart rate 86 /min 86 /min [facility] ([facility]) Diastolic blood pressure 70 mm[Hg] 70 mm[Hg] [facility] ([facility]) Systolic blood pressure 130 mm[Hg] 130 mm[Hg] [facility] ([facility]) Body weight 88.452 kg 88.452 kg [facility] ([facility]) Body weight 195.00 [lb_av] 195.00 [lb_av] [facility] Oxygen saturation in Arterial blood by Pulse oximetry 85 % 85 % [facility] ([facility], ) 88 ra Heart rate 71 /min 71 /min [facility] ([facility], ) Diastolic blood pressure 78 mm[Hg] 78 mm[Hg] [facility] Systolic blood pressure 130 mm[Hg] 130 mm[Hg] [facility] Oxygen saturation in Arterial blood by Pulse oximetry 92 % 92 % [facility] Body mass index (BMI) [Ratio] 26.36 kg/m2 26.36 kg/m2 [facility] Body weight 85.73 kg 85.73 kg [facility] Body height 180.3 cm 180.3 cm [facility] Heart rate 96 /min 96 /min [facility] Diastolic blood pressure 94 mm[Hg] 94 mm[Hg] [facility] Systolic blood pressure 162 mm[Hg] 162 mm[Hg] [facility] Inhaled oxygen concentration 21 % 21 % [facility] ([facility]) Inhaled oxygen flow rate 0 L/min 0 L/min [facility] ([facility]) Oxygen saturation in Arterial blood by Pulse oximetry 92 % 92 % [facility] ([facility]) Body surface area Derived from formula 2.06 m2 2.06 m2 [facility] ([facility]) Body mass index (BMI) [Ratio] 26.5 kg/m2 26.5 k g/m2 [facility] ([facility]) Body weight 190 [lb_av] 190 [lb_av] [facility] ( [facility] Body height 71 [in_i] 71 [in_i] [facility] Body temperature 97.9 [degF] 97.9 [degF] [facility] ([facility]) Respiratory rate 24 /min 24 /min [facility] ([facility]) Heart rate 68 /min 68 /min [facility] Diastolic blood pressure 68 mm[Hg] 68 mm[Hg] [facility] ([facility]) Systolic blood pressure 128 mm[Hg] 128 mm[Hg] [facility] ([facility]) Inhaled oxygen concentration 21 % 21 % [facility] ([facility]) O2 with mask 84% without mask went to 95% Inhaled oxygen flow rate 0 L/min 0 L/min [facility] ([facility]) O2 with mask 84% without mask went to 95% Oxygen saturation in Arterial blood by Pulse oximetry 84 % 84 % [facility] ([facility]) O2 with mask 84% without mask went to 95% Body surface area Derived from formula 2.07 m2 2.07 m2 [facility] ([facility]) O2 with mask 84% without mask went to 95% Body mass index (BMI) [Ratio] 26.6 kg/m2 26.6 k g/m2 [facility] ([facility]) O2 with mask 84% without mask went to 95% Body weight 191 [lb_av] 191 [lb_av] [facility] ([facility]) O2 with mask 84% without mask went to 95% Body height 71 [in_i] 71 [in_i] [facility] ([facility]) O2 with mask 84% without mask went to 95% Body temperature 97.6 [degF] 97.6 [degF] [facility] ([facility]) O2 with mask 84% without mask went to 95% Respiratory rate 24 /min 24 /min [facility] ([facility]) O2 with mask 84% without mask went to 95% Heart rate 91 /min 91 /min [facility] ([facility]) O2 with mask 84% without mask went to 95% Diastolic blood pressure 82 mm[Hg] 82 mm[Hg] [facility] ([facility]) O2 with mask 84% without mask went to 95% Systolic blood pressure 132 mm[Hg] 132 mm[Hg] [facility] ([facility]) O2 with mask 84% without mask went to 95% Inhaled oxygen concentration 21 % 21 % [facility] ([facility]) Inhaled oxygen flow rate 0 L/min 0 L/min [facility] ([facility]) Oxygen saturation in Arterial blood by Pulse oximetry 94 % 94 % [facility] ([facility]) Body surface area Derived from formula 2.07 m2 2.07 m2 [facility] ([facility]) Body mass index (BMI) [Ratio] 26.6 kg/m2 26.6 k g/m2 [facility] ([facility]) Body weight 191 [lb_av] 191 [lb_av] [facility] ([facility]) Body height 71 [in_i] 71 [in_i] [facility] ([facility]) Body temperature 97.1 [degF] 97.1 [degF] [facility] ([facility]) Respiratory rate 24 /min 24 /min [facility] ([facility]) Heart rate 84 /min 84 /min [facility] ([facility]) Diastolic blood pressure 86 mm[Hg] 86 mm[Hg] [facility] ([facility]) Systolic blood pressure 134 mm[Hg] 134 mm[Hg] [facility] ([facility]) Inhaled oxygen concentration 21 % 21 % [facility] ([facility]) Inhaled oxygen flow rate 0 L/min 0 L/min [facility] ([facility]) Oxygen saturation in Arterial blood by Pulse oximetry 97 % 97 % [facility] ([facility]) Body surface area Derived from formula 2.10 m2 2.10 m2 [facility] ([facility]) Body mass index (BMI) [Ratio] 27.8 kg/m2 27.8 k g/m2 [facility] ([facility]) Body weight 199 [lb_av] 199 [lb_av] [facility] ([facility]) Body height 71 [in_i] 71 [in_i] [facility] ([facility]) Body temperature 97.8 [degF] 97.8 [degF] [facility] ([facility]) Respiratory rate 24 /min 24 /min [facility] ([facility]) Heart rate 90 /min 90 /min [facility] ([facility]) Diastolic blood pressure 78 mm[Hg] 78 mm[Hg] [facility] ([facility]) Systolic blood pressure 134 mm[Hg] 134 mm[Hg] [facility] Inhaled oxygen concentration 21 % 21 % [facility] ([facility]) Inhaled oxygen flow rate 0 L/min 0 L/min [facility] ([facility]) Oxygen saturation in Arterial blood by Pulse oximetry 97 % 97 % [facility] ([facility]) Body surface area Derived from formula 2.12 m2 2.12 m2 [facility] ([facility]) Body mass index (BMI) [Ratio] 28.3 kg/m2 28.3 k g/m2 [facility] ([facility]) Body weight 203 [lb_av] 203 [lb_av] [facility] ([facility]) Body height 71 [in_i] 71 [in_i] [facility] ([facility]) Body temperature 97.8 [degF] 97.8 [degF] [facility] ([facility]) Respiratory rate 24 /min 24 /min [facility] ([facility]) Heart rate 97 /min 97 /min [facility] ([facility]) Diastolic blood pressure 76 mm[Hg] 76 mm[Hg] [facility] ([facility]) Systolic blood pressure 132 mm[Hg] 132 mm[Hg] [facility]) Inhaled oxygen concentration 21 % 21 % [facility] ([facility]) Inhaled oxygen flow rate 0 L/min 0 L/min [facility] ([facility]) Oxygen saturation in Arterial blood by Pulse oximetry 98 % 98 % [facility] ([facility]) Body surface area Derived from formula 2.07 m2 2.07 m2 [facility] ([facility]) Body mass index (BMI) [Ratio] 26.6 kg/m2 26.6 k g/m2 [facility] ([facility]) Body weight 191 [lb_av] 191 [lb_av] [facility] ([facility]) Body height 71 [in_i] 71 [in_i] [facility] ([facility]) Body temperature 97.8 [degF] 97.8 [degF] [facility] ([facility]) Respiratory rate 24 /min 24 /min [facility] ([facility]) Heart rate 86 /min 86 /min [facility] ([facility]) Diastolic blood pressure 72 mm[Hg] 72 mm[Hg] [facility] ([facility]) Systolic blood pressure 124 mm[Hg] 124 mm[Hg] [facility] Patient Treatment Plan of Care Planned Activity Planned Date Details Description Data Source (s) Albuterol 0.833 MG/ML / Ipratropium [place] 0.167 MG/M L Inhalant Solution 05/20/2020 12:00:[address] [facility] Metformin hydrochloride 500 MG Oral Tablet 05/20/2020 12:00:00 AM E [facility] Metformin hydrochloride 500 MG Oral Tablet 05/20/2020 12:00:00 AM E [facility]) atorvastatin 20 MG Oral Tablet 05/20/2020 12:00:00 AM [facility]) 60 ACTUAT Budesonide 0.16 MG/ACTUAT / fo rmoterol fumarate 0.0045 MG/ACTUAT Metered Dose Inhaler [Symbicort] 05/20/2020 12:00:00 AM [facility]) 200 ACTUAT Albuterol 0.09 MG/ACTUAT Metered Dose Inhal er [ProAir] 05/20/2020 12:00:00 AM [facility] ([facility]) Lisinopril 5 MG Oral Tablet 05/20/2020 12:00:00 AM [facility]) Triamcinolone Acetonide 1 MG/ML Topical Lotion 05/20/2020 12:00:00 AM [facility]) Lancets Ultra Fine Miscellaneous 05/20/2020 12:00:00 AM [facility]) IGlucose Test Strips In Vitro 05/20/2020 12:00:00 AM [facility]) Lisinopril 5 MG Oral Tablet 05/19/2020 12:00:[address] [facility] Lisinopril 5 MG Oral Tablet 05/17/2020 12:00:00 AM [facility]) Prednisone 10 MG Oral Tablet 05/07/2020 12:00:00 AM [facility]) doxycycline hyclate 100 MG Oral Capsule 05/06/2020 12:00:00 AM [facility]) 60 ACTUAT Budesonide 0.16 MG/ACTUAT / fo rmoterol fumarate 0.0045 MG/ACTUAT Metered Dose Inhaler [Symbicort] 04/22/2020 12:00:00 AM [facility]) atorvastatin 20 MG Oral Tablet 04/22/2020 12:00:00 AM [facility]) Metformin hydrochloride 500 MG Oral Tablet 04/22/2020 12:00:00 AM E [facility] ([facility]) Lisinopril 5 MG Oral Tablet 04/22/2020 12:00:00 AM [facility]) 200 ACTUAT Albuterol 0.09 MG/ACTUAT Metered Dose Inhal er [ProAir] 04/22/2020 12:00:00 AM [facility]) 60 ACTUAT Budesonide 0.16 MG/ACTUAT / fo rmoterol fumarate 0.0045 MG/ACTUAT Metered Dose Inhaler [Symbicort] [facility] 5 MG Oral Tablet 11/20/2019 12:00:00 AM [facility]) 200 ACTUAT Albuterol 0.09 MG/ACTUAT Metered Dose Inhal er [ProAir] 10/24/2019 12:00:[address] [facility] ([facility]) atorvastatin 20 MG Oral Tablet 08/20/2019 12:00:00 AM [facility]) IGlucose Test Strips In Vitro 08/20/2019 12:00:00 AM [facility]) Lancets Ultra Fine Miscellaneous 08/20/2019 12:00:00 AM [facility] Metformin hydrochloride 500 MG Oral Tablet 08/20/2019 12:00:00 AM E [facility] ([facility]) 60 ACTUAT Budesonide 0.16 MG/ACTUAT / fo rmoterol fumarate 0.0045 MG/ACTUAT Metered Dose Inhaler [Symbicort] 08/20/2019 12:00:00 AM [facility]) 200 ACTUAT Albuterol 0.09 MG/ACTUAT Metered Dose Inhal er [ProAir] 08/20/2019 12:00:00 AM [facility]) Triamcinolone Acetonide 1 MG/ML Topical Lotion 08/20/2019 12:00:00 AM EST [facility] ([facility]) Lisinopril 5 MG Oral Tablet 08/20/2019 12:00:00 AM [facility]) 5000 MG Testosterone 0.01 MG/MG Topical Gel [Androgel] 08/20/2019 12:00:00 AM [facility]) atorvastatin 20 MG Oral Tablet 06/25/2019 12:00:00 AM [facility]) Metformin hydrochloride 500 MG Oral Tablet 06/25/2019 12:00:[address] [facility] ([facility]) IGlucose Test Strips In Vitro 06/25/2019 12:00:00 AM [facility]) Lancets Ultra Fine Miscellaneous 06/25/2019 12:00:00 AM [facility]) 60 ACTUAT Budesonide 0.16 MG/ACTUAT / fo rmoterol fumarate 0.0045 MG/ACTUAT Metered Dose Inhaler [Symbicort] 06/25/2019 12:00:00 AM [facility]) Metformin hydrochloride 500 MG Oral Tablet 05/30/2019 12:00:[address] [facility] ([facility]) IGlucose Test Strips In Vitro 01/24/2019 12:00:00 AM [facility]) Lancets Ultra Fine Miscellaneous 01/24/2019 12:00:[address] [facility] ([facility]) Triamcinolone Acetonide 1 MG/ML Topical Lotion 01/24/2019 12:00:[address] [facility] ([facility]) Metformin hydrochloride 500 MG Oral Tablet 01/24/2019 12:00:00 AM E [facility] ([facility]) atorvastatin 20 MG Oral Tablet 01/24/2019 12:00:00 AM EDT [facility] ([facility]) 30 ACTUAT fluticasone furoate 0.1 MG/ACT UAT / vilanterol 0.025 MG/ACTUAT Dry Powder Inhaler [Breo] 01/24/2019 12:00:00 AM EDT [facility] ([facility]) 200 ACTUAT Albuterol 0.09 MG/ACTUAT Metered Dose Inhal er [ProAir] 01/24/2019 12:00:00 AM EDT [facility] ([facility]) pantoprazole 40 MG Delayed Release Oral Tablet 04/16/2016 12:00:00 AM EDT [facility] atorvastatin 40 MG Oral Tablet 10/10/2014 12:00:00 AM EDT [facility] 200 ACTUAT Levalbuterol 0.045 MG/ACTUAT Metered Dose I nhaler [Xopenex] 04/23/2014 12:00:00 AM EST [facility] Cholecalciferol 2000 UNT Oral Capsule [facility] Nitroglycerin 0.4 MG Sublingual Tablet [facility] DAILY DIONNE (THERAGRAN) per tablet [facility] ALBUTEROL IN [facility] 24 HR metoprolol succinate 25 MG Extended Release Oral Tablet [facility] Aspirin 325 MG Oral Tablet [facility]
[2020-07-03] MEDS: lisinopriL 20 MG TAB PO ONE ×2 (10:30→16:12)
[2020-07-03] MEDS: amLODIPine 10 MG TAB PO ONE ×2 (10:30→16:12)
--- OUTSIDE RECORDS SUMMARY | 2020-07-03 10:30 | CCD ---
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 Care Varnish Melter Helper Name Role Phone Susan Talamantes MD Unavailable [...] Lizett GONCALVES Unavailable Unavailable Lake, John Lizett GONCLAVES Unavailable Unavailable [place], John Lizett GONCALVES Unavailable [...] Unavailable Unavailable Bethany Felix MD Unavailable Unavailable Bethayn Felix MD Unavailable Unavailable Bethany Felix MD [...] [place], Susan Balbuena MD Unavailable Unavailable [place], Suasn Balbuena MD Unavailable Unavailable [place], Susan Balbuena [...] is protected by Article 27-F of the [facility] Public Health law. If you continue you may have access to information: Regarding HIV / AIDS; Provided by facilities licensed or operated by the [facility] Office of Mental Health; or Provided by the [facility] Office for People With Developmental Disabilities. If such information is present, then the following [facility] mandated warning applies: This information has [...] law may result in a fine or alf sentence or both. A general authorization for the release of medical or other information is NOT sufficient authorization for further disc losure. Allergies and Adverse Reactions Type Description Substance Reaction Status Data Source(s ) Food allergy shellfish derived shellfish derived [facility] Family History Family Member Name Family Member Gender Family Member Status Date o f Status Description Data Source(s) Unknown Male Problem [facility] ([facility]) Unknown Male Problem [facility] ([facility]) Encounters Encounter Providers Location Date Indications Data Source(s ) Outpatient Attender: Lizett Nixon/[place]ho[place]/Re indl 06/22/2020 09:15:00 AM EST [facility] ([facility] Outpatient Attender: Lizett Nixon/[place]ho[place]/Re indl 06/14/2020 12:23:00 AM EST [facility] ([facility] Outpatient Attender: Lizett Ortiz/[place]ho[place]/Re indl 06/13/2020 12:23:00 AM EST [facility] ([facility]) Outpatient Attender: Lizett Nixon/[place]hoa/Re indl 06/12/2020 12:23:00 AM EST [facility] ([facility]) Outpatient Referrer: Bethany Felix MD 06/11/2020 09:36:00 AM EST Pleural effusion, not elsewhere classified [facility] Pleural effusion, not elsewhere classifi ed Outpatient Attender: Lizett Nixon/[place]hoa/Re indl 06/10/2020 12:23:00 AM EST [facility] ([facility] Outpatient Attender: Lizett Nixon/[place]ho[place]/Re indl 06/09/2020 12:23:00 AM EST [facility] ([facility]) Outpatient Attender: Lizett Nixon/[place]hoa/Re indl 06/08/2020 12:23:00 AM EST [facility] ([facility]) Outpatient Admitter: Bethany Felix MDReferrer: Bethany Felix MD 06/08/2020 12:00:00 AM EST Secondary malignant neoplasm of unspecified site [facility] Secondary malignant neoplasm of unspecif ied site Outpatient Attender: Kike Nixon/[place]hoa/R eindl 06/01/2020 09:00:00 AM EST [facility] ([facility]) Outpatient Attender: Julio Reyes MDReferrer: Stevan [email or web address]-[email or web address] 05/28/2020 12:00:00 AM EST - 05/28/2020 10:45:33 AM EST [facility] Outpatient<td ID="encounterTypeDescripti onID0">STANDARD OV</td><td>Esha Talamantes MD</td><td>Family [facility]</td><td>05/20/2020</td><td>8:34AM</td><td>05/07/2020 11:59PM</td><td><content ID="encounterDiagnosisID0-0">Working Diagnosis of Abdominal Pain</content>, <content ID="encounterDiagnosisID0-1">Working Diagnosis of Abdominal Pain in the Central Upper Belly (Epigastric)</content>, <content ID="encounterDiagnosisID0-2">Chest Pain</content>, <content ID="encounterDiagnosisID0-3">Hypoxia</content></td> Attender: Esha Talamantes MD [facility] 05/20/2020 08:34:00 AM EST - 05/07/2020 11:59:00 PM [facility] HypoxiaChest PainWorking Diagnosis of Ab dominal Pain in the Central Upper Belly (Epigastric)Working Diagnosis of Abdominal Pain [facility] ([facility]) Hypoxia Chest Pain Working Diagnosis of Abdominal Pain in t he Central Upper [place]ly (Epigastric) Working Diagnosis of Abdominal Pain Outpatient Attender: Esha Talamantes MDConsultant: Esha branch MD 05/07/2020 09:30:00 AM EST - 05/07/2020 10:30:00 AM [facility] Outpatient<td ID="encounterTypeDescripti onID1">STANDARD OV</td><td>Esha Talamantes MD</td><td>[facility]</td><td>05/07/2020</td><td>8:07AM</td><td>9:08AM</td><td><content ID="encounterDiagnosisID1-0">Acute Infective Exacerbation of Chronic Obstructive Airways Disease</content>, <content ID="encounterDiagnosisID1-1">Nicotine Dependence Uncomplicated</content>, <content ID="encounterDiagnosisID1- 2">Atypical Chest Pain</content></td> Attender: Esha Talamantes MD [facility] 05/07/2020 08:07:00 AM EST - 05/07/2020 09:08:00 AM ES T Atypical Chest PainNicotine Dependence UncomplicatedAcute Infective Exacerbation of Chronic Obstructive Airways DiseaseAtypical Chest PainNicotine Dependence UncomplicatedAcute Infective Exacerbation of Chronic Obstructive Airways Disease Atypical Chest PainNicotine Dependence UncomplicatedAcute Infective Exacerbation of Chronic Obstructive Airways Disease [place] ([facility]) Atypical Chest Pain Nicotine Dependence Uncomplicated Acute Infective Exacerbation of Chronic Obstructive Airways Disease Atypical Chest Pain Nicotine Dependence Uncomplicated Acute Infective Exacerbation of Chronic Obstructive Airways Disease Atypical Chest Pain Nicotine Dependence Uncomplicated Acute Infective Exacerbation of Chronic Obstructive Airways Disease Outpatient Attender: Esha Talamantes MDConsultant: Esha branch MD 04/30/2020 08:24:00 AM EST - 04/30/2020 09:24:00 AM EST [facility] Outpatient<td ID="encounterTypeDescripti onID2">HOSP I/P F/U</td><td>Esha Talamantes MD</td><td>[facility]</td><td>04/22/2020</td><td>10:05AM</td><td>11:03AM</td><td><content ID="encounterDiagnosisID2-0">Vitreous Floaters Right Eye</content>, <content ID="encounterDiagnosisID2-1">Chronic Obstructive Pulmonary Disease</content>, <content ID="encounterDiagnosisID2-2">Essential Hypertension Benign</content>, <content ID="encounterDiagnosisID2-3">Hyperlipidemia</content>, <content ID="encounterDiagnosisID2-4">Diabetes Mellitus Type 2 in Obese</content>, <content ID="encounterDiagnosisID2-5">Lung Mass</content>, <content ID="encounterDiagnosisID2-6">Fatigue</content></td> Attender: Esha Talamantes MD [facility], 04/22/2020 10:05:00 AM EST - 04/22/2020 11:03:00 [...] DiseaseHyperlipidemiaChronic Obstructive Pulmonary DiseaseHyperlipidemiaChronic Obstructive Pulmonary Disease [place] ([facility]) Fatigue Lung Mass Diabetes Mellitus Type 2 [...] 04/12/2020 11:42:00 AM EDT CHEST PAIN,COPD EXACERBATION [facility] CHEST PAIN,COPD EXACERBATION Patient discharged. Outpatient<td ID="encounterTypeDescripti onID3">RX UPDATE</td><td>Esha Talamantes MD</td><td>[facility]</td><td>11/20/2019</td><td>08/20/2019 11:10AM</td><td>08/20/2019 11:59PM</td><td></td> Attender: Esha Talamantes MD [facility] 08/20/2019 11:10:00 AM EST - 08/20/2019 11:59:00 PM [facility] ([facility]) Outpatient<td ID="encounterTypeDescripti onID4">ANNUAL PHYSICAL EXAM</td><td>Esha Talamantes MD</td><td>[facility]</td><td>08/20/2019</td><td>8:13AM</td><td>9:35AM</td><td><content ID="encounterDiagnosisID4-0">Fatigue</content>, <content ID="encounterDiagnosisID4-1">Hypogonadism</content>, <content ID="encounterDiagnosisID4-2">Hyperlipidemia</content>, <content ID="encounterDiagnosisID4-3">Benign Prostatic Hypertrophy</content>, <content ID="encounterDiagnosisID4-4">Diabetes Mellitus Type 2 in Nonobese</content>, <content ID="encounterDiagnosisID4-5">Routine History & Physical Senior Citizen with Abnormal Findings</content></td> Attender: Esha Talamantes MD [facility], 08/20/2019 08:13:00 AM EST - 08/20/2019 09:35:00 [...] in NonobeseBenign Prostatic HypertrophyHypogonadismFatigue HyperlipidemiaHyperlipidemiaHyperlipidemiaHyperlipidemiaHyperlipidemiaHyperlipid noe [facility] ([facility]) Routine History & Physical Senior Citize n [...] 07:43:00 AM EST - 08/12/2019 08:43:00 AM [facility] Outpatient<td ID="encounterTypeDescripti onID5">STANDARD OV</td><td>Esha Talamantes MD</td><td>[facility]</td><td>08/07/2019</td><td>1:54PM</td><td>3:09PM</td><td><content ID="encounterDiagnosisID5-0">Cervicalgia</content>, <content ID="encounterDiagnosisID5-1">Chronic Obstructive Pulmonary Disease</content>, <content ID="encounterDiagnosisID5-2">Hypercalcemia</content>, <content ID="encounterDiagnosisID5-3">Bursitis Olecranon Left</content>, <content ID="encounterDiagnosisID5-4">Psoriasis</content>, <content ID="encounterDiagnosisID5-5">Diabetes Mellitus Secondary with Peripheral Neuropathy</content></td> Attender: Esha Talamantes MD [facility] 08/07/2019 01:54:00 PM EST - 08/07/2019 03:09:00 [...] DiseaseChronic Obstructive Pulmonary DiseaseChronic Obstructive Pulmonary Disease [place] ([facility]) Diabetes Mellitus Secondary with Periphe ral Neuropathy [...] Obstructive Pulmonary Disease Outpatient 07/07/2019 03:17:00 PM [facility] Emergency Attender: MALA PANIAGUA MDConsultant: Esha branch MD 07/07/2019 01:18:00 PM EST - 07/07/2019 03:37:00 PM [facility] Patient discharged. Outpatient<td ID="encounterTypeDescripti onID6">STANDARD OV</td><td>Esha Talamantes MD</td><td>[facility],</td><td>06/25/2019</td><td>10:55AM</td><td>11:58AM</td><td><content ID="encounterDiagnosisID6-0">Chronic Obstructive Pulmonary Disease</content>, <content ID="encounterDiagnosisID6-1">Hyperlipidemia</content>, <content ID="encounterDiagnosisID6-2">Diabetes Mellitus Type 2</content>, <content ID="encounterDiagnosisID6-3">Obesity</content>, <content ID="encounterDiagnosisID6-4">Diabetes Mellitus Type 2 with Coma</content>, <content ID="encounterDiagnosisID6-5">Hypogonadism</content></td> Attender: Esha Talamantes MD [facility], 06/25/2019 10:55:00 AM EST - 06/25/2019 11:58:00 [...] DiseaseHyperlipidemiaChronic Obstructive Pulmonary DiseaseHyperlipidemiaChronic Obstructive Pulmonary Disease [place] ([facility]) Hypogonadism Diabetes Mellitus Type 2 with Coma [...] Pulmonary Disease Outpatient<td ID="encounterTypeDescripti onID7">Prescription Refill (Telephone, [phone]</td><td>Esha Talamantes MD</td><td></td><td>05/30/2019</td><td>02/04/2019 2:09PM</td><td>02/04/2019 11:59PM</td><td></td> Attender: Esha Talamantes MD 05/30/2019 02:09:00 PM EST - 02/04/2019 11:59:00 PM EDT [facility] ([facility]) Functional Status Immunizations Vaccine Date Status Description Data Source(s) pneumococcal polysaccharide PPV23 08/07/2019 03:08:00 PM EST com pleted PCV (Pneumovax 23) ages 2+ 1 08/07/2019 Complete (Ref used - Patient objection) [facility] ([facility]) Medications Medication Brand Name Start Date Product [...] 1 TWICE A DAY THEREAFTER SOLD: 06/14/2020 [facility] pantoprazole 40 MG Delayed Release Oral Tablet PANTOPRAZOLE SODIUM 06/14/2020 12:00:00 AM EST tablet,delayed release (DR/EC) 30 T CARY ONE TABLET BY MOUTH EVERY DAY TAKE ONE TABLET BY MOUTH EVERY DAY SOLD: 06/14/2020 [facility] 100 mg 06/14/2020 12:00:00 AM EST capsule 60 TAKE ONE CAPSULE BY MOUTH TWICE A DAY TAKE ONE CAPSULE BY MOUTH TWICE A DAY SOLD: 06/14/2020 [facility] 7 ACTUAT umeclidinium 0.0625 MG/ACTUAT Dry Powder Inha ler [Incruse] Incruse Ellipta 06/01/2020 12:00:00 AM EST RESPIRATORY active [facility] ([facility], ) Prednisone 10 MG Oral Tablet Prednisone 06/01/2020 12:00:00 AM EST ORAL completed [facility] ([facility], ) Metformin hydrochloride 500 MG Oral Tablet metFORMIN ( GLUCOPHAGE) 500 MG tablet metFORMIN (GLUCOPHAGE) 500 MG tablet 05/20/2020 12:00:00 AM EST 1 { tbl} Oral active Take 1 tablet by mouth 2 (two) times a day [facility] Lancets Ultra Fine Miscellaneous Lancets Ultra Fine Miscella neous 05/20/2020 12:00:00 AM EST active Lancets Ultra Fine [facility] ([facility]) IGlucose Test Strips In Vitro IGlucose Test Strips In Vitro 05/20/2020 12:00:00 AM EST active IGlucose Test Str ips [place] ([facility]) Albuterol 0.833 MG/ML / Ipratropium Brom delmer 0.167 MG/ML Inhalant Solution ipratropium-albuterol (DUO-NEB) 0.5-2.5 mg/mL nebulizer ipratropium-albuterol (DUO-NEB) 0.5-2.5 mg/mL nebulizer 05/20/2020 12:00:00 AM EST active INHALE 1 VIAL VIA NEB QID PRN [facility] Triamcinolone Acetonide 1 MG/ML Topical Lotion Triamcinolone Acetonide 0.1% External Lotion Triamcinolone Acetonide 0.1% External Lotion 0 12:00:00 AM EST active triamcinolone ac etonide 1 MG/ML Topical Lotion [place] ([facility]) atorvastatin 20 MG Oral Tablet Atorvastatin Calcium 20 MG Oral Tablet Atorvastatin Calcium 20 MG Oral Tablet 05/20/2020 12:00:00 AM EST 1 active [facility]vastatin 20 MG [facility]t [facility] Metformin hydrochloride 500 MG Oral Tablet metFORMIN H Cl 500 MG Oral Tablet metFORMIN HCl 500 MG Oral Tablet 05/20/2020 12:00:00 AM EST active metformin hydrochloride 500 MG Oral Tablet [place] ([facility]) 60 ACTUAT Budesonide 0.16 MG/ACTUAT / fo rmoterol fumarate 0.0045 MG/ACTUAT Metered Dose Inhaler [Symbicort] Symbicort 160-4.5 MCG/ACT Inhalation Aerosol Symbicort 160-4.5 MCG/ACT Inhalation Aerosol 05/20/2020 12:00:00 AM EST active 60 ACTUAT budeso nide 0.16 MG/ACTUAT / formoterol fumarate 0.0045 MG/ACTUAT Metered Dose Inhaler [Symbicort] [facility]) 200 ACTUAT Albuterol 0.09 MG/ACTUAT Mete red Dose Inhaler [ProAir] ProAir HFA 108 (90 Base) MCG/ACT Inhalation Aerosol Solution ProAir HFA 108 (90 Base) MCG/ACT Inhalation Aerosol Solution 05/20/2020 12:00:00 AM EST 18 active [id number] 200 ACTUAT albuterol 0.09 MG/ACTUAT Metered Dose Inhaler [ProAir] [facility]) Lisinopril 5 MG Oral Tablet Lisinopril 5 MG Oral Tablet 07/2019 12:00:00 AM EST active lisinopril 5 MG O ral Tablet [place] ([facility]) Lisinopril 5 MG Oral Tablet lisinopril (PRINIVIL,ZESTR IL) 5 MG tablet lisinopril (PRINIVIL,ZESTRIL) 5 MG tablet 05/19/2020 12:00:00 AM EST 1 {tbl} O ral active Take 1 tablet by mouth daily [facility] Lisinopril 5 MG Oral Tablet Lisinopril 5 MG Oral Tablet 04/20 12:00:00 AM EST aborted lisinopril 5 MG Oral Tablet [place] ([facility]) Prednisone 10 MG Oral Tablet predniSONE 10 MG Oral Tab let predniSONE 10 MG Oral Tablet 05/07/2020 12:00:00 AM EST aborted prednisone 10 MG Oral Tablet [facility]) doxycycline hyclate 100 MG Oral Capsule Doxycycline Hy clate 100 MG Oral Capsule Doxycycline Hyclate 100 MG Oral Capsule 05/06/2020 12:00:00 AM EST active doxycycline hyclate 100 MG Oral Capsule [facility]) 60 ACTUAT Budesonide 0.16 MG/ACTUAT / fo rmoterol fumarate 0.0045 MG/ACTUAT Metered Dose Inhaler [Symbicort] Symbicort 160-4.5 MCG/ACT Inhalation Aerosol Symbicort 160-4.5 MCG/ACT Inhalation Aerosol 04/22/2020 12:00:00 AM EST aborted 60 ACTUAT budeso nide 0.16 MG/ACTUAT / formoterol fumarate 0.0045 MG/ACTUAT Metered Dose Inhaler [Symbicort] [place] ([facility]) 200 ACTUAT Albuterol 0.09 MG/ACTUAT Mete red Dose Inhaler [ProAir] ProAir HFA 108 (90 Base) MCG/ACT Inhalation Aerosol Solution ProAir HFA 108 (90 Base) MCG/ACT Inhalation Aerosol Solution 04/22/2020 12:00:00 AM EST 18 aborted [id number] 200 ACTUAT albuterol 0.09 MG/ACTUAT Metered Dose Inhaler [ProAir] [place] ([facility]) Metformin hydrochloride 500 MG Oral Tablet metFORMIN H Cl 500 MG Oral Tablet metFORMIN HCl 500 MG Oral Tablet 04/22/2020 12:00:00 AM EST aborted metformin hydrochloride 500 MG Oral Tablet [place] ([facility]) atorvastatin 20 MG Oral Tablet Atorvastatin Calcium 20 MG Oral Tablet Atorvastatin Calcium 20 MG Oral Tablet 04/22/2020 12:00:00 AM EST 1 aborted atorvastatin 20 MG Oral Tablet [facility]) Lisinopril 5 MG Oral Tablet Lisinopril 5 MG Oral Tablet 09/2019 12:00:00 AM EST 1 aborted lisinopril 5 MG Oral Tablet [facility]) Dextromethorphan Hydrobromide 2 MG/ML / Guaifenesin 20 MG/ML Oral Solution Dextromethorphan-Guaifenesin Dextromethorphan-Guaifenesin 04/12/2020 10:03:10 AM EDT 10 ML active [facility] Albuterol 0.833 MG/ML / Ipratropium Brom delmer 0.167 MG/ML Inhalant Solution Ipratropium-Albuterol Ipratropium-Albuterol 04/12/2020 10:02:36 AM EDT 3 ML active [facility] Prednisone 20 MG Oral Tablet Prednisone 04/12/2020 10:01:33 AM EDT 40 MG active [facility] Azithromycin 500 MG Oral Tablet Azithromycin 04/12/2020 10:00:43 AM EDT 500 MG active [facility] atorvastatin 20 MG Oral Tablet Atorvastatin Atorvastatin 04/11/2020 09:16:15 PM EDT 20 MG active [facility] Xepbyrejkkvr-Nqsmjdcj-Dzkfxr (Centrum Silver) Tablet 04/11/2020 09:16:15 PM EDT 1 TAB active [facility] atorvastatin 20 MG Oral Tablet Atorvastatin Atorvastatin 04/11/2020 09:16:15 PM EDT 20 MG active [facility] Metformin hydrochloride 500 MG Oral Tablet Metformin 04/11 09:16:15 PM EDT 500 MG active [facility] Aspirin 04/11/2020 09:16:15 PM EDT 81 MG active [facility] Aspirin 04/11/2020 09:16:15 PM EDT 81 MG active [facility] 120 ACTUAT Budesonide 0.16 MG/ACTUAT / f ormoterol fumarate 0.0045 MG/ACTUAT Metered Dose Inhaler Budesonide-Formoterol (Symbicort) 160-4.5 mcg/actuation HFA aerosol inhaler Budesonide-Formoterol (Symbicort) 160-4. 5 mcg/actuation HFA aerosol inhaler 04/11/2020 09:16:15 PM EDT 2 PUFFS activ e [facility] Metformin hydrochloride 500 MG Oral Tablet Metformin 04/11 09:16:15 PM EDT 500 MG active [facility] 120 ACTUAT Budesonide 0.16 MG/ACTUAT / f ormoterol fumarate 0.0045 MG/ACTUAT Metered Dose Inhaler Budesonide-Formoterol (Symbicort) 160-4.5 mcg/actuation HFA aerosol inhaler Budesonide-Formoterol (Symbicort) 160-4. 5 mcg/actuation HFA aerosol inhaler 04/11/2020 09:16:15 PM EDT 2 PUFFS activ e [facility] Albuterol Sulfate (Proair Hfa) 90 mcg/actuation HFA aerosol inhaler 04/11/2020 09:16:15 PM EDT 2 PUFFS active [facility] Lipsyevjzmey-Spmizwil-Iohigp 04/11/2020 09:16:15 PM EDT 1 T AB active [facility] Albuterol Sulfate (Proair Hfa) 90 mcg/actuation HFA aerosol inhaler 04/11/2020 09:16:15 PM EDT 2 PUFFS active [facility] 60 ACTUAT Budesonide 0.16 MG/ACTUAT / fo rmoterol fumarate 0.0045 MG/ACTUAT Metered Dose Inhaler [Symbicort] Symbicort 160-4.5 MCG/ACT Inhalation Aerosol Symbicort 160-4.5 MCG/ACT Inhalation Aerosol 11/20/2019 12:00:00 AM EDT aborted 60 ACTUAT budeso nide 0.16 MG/ACTUAT / formoterol fumarate 0.0045 MG/ACTUAT Metered Dose Inhaler [Symbicort] [place] ([facility]) Lisinopril 5 MG Oral Tablet Lisinopril 5 MG Oral Tablet 08/2019 12:00:00 AM EDT 1 aborted lisinopril 5 MG Oral Tablet [place] ([facility]) 200 ACTUAT Albuterol 0.09 MG/ACTUAT Mete red Dose Inhaler [ProAir] ProAir HFA 108 (90 Base) MCG/ACT Inhalation Aerosol Solution ProAir HFA 108 (90 Base) MCG/ACT Inhalation Aerosol Solution 10/24/2019 12:00:00 AM EDT 18 aborted [id number] 200 ACTUAT albuterol 0.09 MG/ACTUAT Metered Dose Inhaler [ProAir] [place] ([facility]) Lisinopril 5 MG Oral Tablet Lisinopril 5 MG Oral Tablet 08/2019 12:00:00 AM EST 1 aborted lisinopril 5 MG Oral Tablet [place] ([facility]) Triamcinolone Acetonide 1 MG/ML Topical Lotion Triamcinolone Acetonide 0.1% External Lotion Triamcinolone Acetonide 0.1% External Lotion 0 12:00:00 AM EST aborted triamcinolone a cetonide 1 MG/ML Topical Lotion [facility]) 200 ACTUAT Albuterol 0.09 MG/ACTUAT Mete red Dose Inhaler [ProAir] ProAir HFA 108 (90 Base) MCG/ACT Inhalation Aerosol Solution ProAir HFA 108 (90 Base) MCG/ACT Inhalation Aerosol Solution 08/20/2019 12:00:00 AM EST 18 aborted [id number] 200 ACTUAT albuterol 0.09 MG/ACTUAT Metered Dose Inhaler [ProAir] [facility]) 5000 MG Testosterone 0.01 MG/MG Topical Gel [Androgel] AndroGel 50 MG/5GM (1%) Transdermal AndroGel 50 MG/5GM (1%) Transdermal 08/20/2019 12:00:00 AM EST aborted 5000 MG testosterone 0.01 MG/MG Topical Gel [Androgel] [facility]) IGlucose Test Strips In Vitro IGlucose Test Strips In Vitro 08/20/2019 12:00:00 AM EST aborted IGlucose Test [facility] ([facility]) atorvastatin 20 MG Oral Tablet Atorvastatin Calcium 20 MG Oral Tablet Atorvastatin Calcium 20 MG Oral Tablet 08/20/2019 12:00:00 AM EST 1 aborted atorvastatin 20 MG Oral Tablet [facility]) 60 ACTUAT Budesonide 0.16 MG/ACTUAT / fo rmoterol fumarate 0.0045 MG/ACTUAT Metered Dose Inhaler [Symbicort] Symbicort 160-4.5 MCG/ACT Inhalation Aerosol Symbicort 160-4.5 MCG/ACT Inhalation Aerosol 08/20/2019 12:00:00 AM EST aborted 60 ACTUAT budeso nide 0.16 MG/ACTUAT / formoterol fumarate 0.0045 MG/ACTUAT Metered Dose Inhaler [Symbicort] [facility]) Lancets Ultra Fine Miscellaneous Lancets Ultra Fine Miscella neous 08/20/2019 12:00:00 AM EST aborted Lancets Ultra Fine [place] ([facility]) Metformin hydrochloride 500 MG Oral Tablet metFORMIN H Cl 500 MG Oral Tablet metFORMIN HCl 500 MG Oral Tablet 08/20/2019 12:00:00 AM EST aborted metformin hydrochloride 500 MG Oral Tablet [place] ([facility]) Lancets Ultra Fine Miscellaneous Lancets Ultra Fine Miscella neous 06/25/2019 12:00:00 AM EST aborted Lancets Ultra Fine [place] ([facility]) IGlucose Test Strips In Vitro IGlucose Test Strips In Vitro 06/25/2019 12:00:00 AM EST aborted IGlucose Test St rips [place] ([facility]) Metformin hydrochloride 500 MG Oral Tablet metFORMIN H Cl 500 MG Oral Tablet metFORMIN HCl 500 MG Oral Tablet 06/25/2019 12:00:00 AM EST aborted metformin hydrochloride 500 MG Oral Tablet [place] ([facility]) atorvastatin 20 MG Oral Tablet Atorvastatin Calcium 20 MG Oral Tablet Atorvastatin Calcium 20 MG Oral Tablet 06/25/2019 12:00:00 AM EST 1 aborted atorvastatin 20 MG Oral Tablet [facility]) 60 ACTUAT Budesonide 0.16 MG/ACTUAT / fo rmoterol fumarate 0.0045 MG/ACTUAT Metered Dose Inhaler [Symbicort] Symbicort 160-4.5 MCG/ACT Inhalation Aerosol Symbicort 160-4.5 MCG/ACT Inhalation Aerosol 06/25/2019 12:00:00 AM EST aborted 60 ACTUAT budeso nide 0.16 MG/ACTUAT / formoterol fumarate 0.0045 MG/ACTUAT Metered Dose Inhaler [Symbicort] [facility]) Metformin hydrochloride 500 MG Oral Tablet metFORMIN H Cl 500 MG Oral Tablet metFORMIN HCl 500 MG Oral Tablet 05/30/2019 12:00:00 AM EST aborted metformin hydrochloride 500 MG Oral Tablet [place] ([facility]) 200 ACTUAT Albuterol 0.09 MG/ACTUAT Mete red Dose Inhaler [ProAir] ProAir HFA 108 (90 Base)MCG/ACT Inhalation Aerosol Solution ProAir HFA 108 (90 Base)MCG/ACT Inhalation Aerosol Solution 01/24/2019 12:00:00 AM EDT 18 aborted [id number] 200 ACTUAT albuterol 0.09 MG/ACTUAT Metered Dose Inhaler [ProAir] [facility] [facility] Metformin hydrochloride 500 MG Oral Tablet metFORMIN H Cl 500MG Oral Tablet metFORMIN HCl 500MG Oral Tablet 01/24/2019 12:00:00 AM EDT aborted metformin hydrochloride 500 MG Oral Tablet [place] ([facility]) IGlucose Test Strips In Vitro IGlucose Test Strips In Vitro 01/24/2019 12:00:00 AM EDT aborted IGlucose Test St rips [place] ([facility]) Triamcinolone Acetonide 1 MG/ML Topical Lotion Triamcinolone Acetonide 0.1% External Lotion Triamcinolone Acetonide 0.1% External Lotion 12:00:00 AM EDT aborted triamcinolone a cetonide 1 MG/ML Topical Lotion [place] ([facility]) Lancets Ultra Fine Miscellaneous Lancets Ultra Fine Miscella neous 01/24/2019 12:00:00 AM EDT aborted Lancets Ultra Fine [facility] ([facility]) 30 ACTUAT fluticasone furoate 0.1 MG/ACT UAT / vilanterol 0.025 MG/ACTUAT Dry Powder Inhaler [Breo] Breo Ellipta 100-25MCG/INH Inhalation Aerosol Powder Breath Activated Breo Ellipta 100-25MCG/INH Inhalation Ae rosol Powder Breath Activated 01/24/2019 12:00:00 AM EDT aborted 30 ACTUAT fluticasone furoate 0.1 MG/ACTUAT / vilanterol 0.025 MG/ACTUAT Dry Powder Inhaler [Breo] [place] ([facility]) atorvastatin 20 MG Oral Tablet Atorvastatin Calcium 20 MG Oral Tablet Atorvastatin Calcium 20MG Oral Tablet 01/24/2019 12:00:00 AM EDT 1 aborted atorvastatin 20 MG Oral Tablet [facility] ([facility]) pantoprazole 40 MG Delayed Release Oral Tablet pantoprazole (PROTONIX) 40 MG tablet pantoprazole (PROTONIX) 40 MG tablet 04/16/2016 12:00:00 AM EDT aborted [facility] atorvastatin 40 MG Oral Tablet atorvastatin (LIPITOR) 40 MG tablet atorvastatin (LIPITOR) 40 MG tablet 10/10/2014 12:00:00 AM EDT aborted [facility] 200 ACTUAT Levalbuterol 0.045 MG/ACTUAT Metered Dose Inhaler [Xopenex] XOPENEX HFA 45 MCG/ACT inhaler XOPENEX HFA 45 MCG/ACT inhaler 04/23/2014 12:00:00 AM EST aborted [facility] ALBUTEROL IN aborted prn [facility] Nitroglycerin 0.4 MG Sublingual Tablet n itroglycerin (NITROSTAT) 0.4 MG SL tablet nitroglycerin (NITROSTAT) 0.4 MG SL tablet aborted sl prn cp-take up to 3 tabs 5 minutes apart to resolve cp [facility] DAILY DIONNE (THERAGRAN) per tablet 29492-606-09 Oral aborted Take by mouth [facility] Cholecalciferol 2000 UNT Oral Capsule Ch olecalciferol (VITAMIN D3) 2000 UNITS capsule Cholecalciferol (VITAMIN D3) 2000 UNITS capsule Oral aborted Take by mouth [facility] 24 HR metoprolol succinate 25 MG Extende d Release Oral Tablet metoprolol (TOPROL-XL) 25 MG 24 hr tablet metoprolol (TOPROL-XL) 25 MG 24 hr tablet 25 mg Oral aborted Take 25 mg by mouth [facility] Aspirin 325 MG Oral Tablet aspirin 325 MG tablet aspirin 325 MG tab let 81 mg Oral aborted Take 81 mg by mouth [facility] Insurance Providers Payer name Policy type / Coverage type Policy ID Covered green party ID Covered green party's relationship to nino Policy Nino Plan Information CELESTINO [id number] SP [id number] CELESTINO [id number] SP [id number] [place] [id number] O [id number] CELE[place]INO EXCHANGE U [id number] Self [id number] [facility] W [id number] Empl [id number] CELESTINO MEDICAID [id number] Emperatriz 7 [id number] CELESTINO MEDICAID [id number] [place] Other 0 Self 0 [place] Other 0 Self 0 [place] - [id number] 18 [id number] [place] Other 0 Self 0 [place] Other 0 Self 0 [place] Other 0 Self 0 [place] Other 0 Self 0 [place] Other 0 Self 0 [place] Other 0 Self 0 [place] Other 0 Self 0 [place] [id number] [place] Other 0 Self 0 [place] Other 0 Self 0 [place] Other 0 Self 0 [place] Other 0 Self 0 [place] Other 0 Self 0 [place] Other 0 Self 0 [place] Other 0 Self 0 [place] U [id number] Self [id number] STATE INS FUND [facility] [id number] Empl [id number] STATE INS FUND [facility] [id number] Empl [id number] [place] Compensation [id number] Self [id number] [employer] [id number] Self [id number] [place] [employer] Self [place] Workers Compensation Self CELESTINO MEDICAID [id number] Emperatriz 7 [id number] MEDICAID [id number] Emperatriz [id number] POMCO [id number] Emperatriz [id number] [place] Commercial Self STATE INS FUND W [id number] Empl [id number] [place] O [id number] S [id number] STATE INSURANCE FUND O [id number] S [id number] STATE INSURANCE FUND O [id number] S [id number] [employer] [id number] SP [id number] POMCO [id number] SP [id number] Problems, Conditions, and Diagnoses Code Display Name Description Problem Type Effective Dates Data Source(s) 13015695 Type 1 diabetes mellitus Type 1 diabetes mellitus Prob rose 06/21/2020 12:00:00 AM EST [facility] ([facility] ) R06.02 Shortness of breath Shortness of breath [id number] 1 07/29/2019 12:00:00 AM EST [facility] R91.8 Mass of upper lobe of right lung Mass of upper l obe of right lung [id number] 05/28/2020 12:00:00 AM EST [facility] J90 Pleural effusion, not elsewhere classifi ed Pleural effusion, not elsewhere classified Diagnosis 06/11/2020 09:36:00 AM EST [facility] C79.9 Secondary malignant neoplasm of unspecif ied site Secondary malignant neoplasm of unspecified site Diagnosis 06/08/2020 08:48:00 AM EST [facility] I48.0 Paroxysmal atrial fibrillation Paroxysmal atrial fibri llation Diagnosis 05/28/2020 08:55:00 AM [facility] R06.02 Shortness of breath Shortness of breath Diagnosis 1 07/29/2019 08:55:00 AM [facility] R91.8 Other nonspecific abnormal finding of maira ng field Other nonspecific abnormal finding of maira Diagnosis 05/28/2020 08:55:00 AM [facility] R07.9 Chest pain, unspecified Chest pain, unspecified Diagno sis 05/28/2020 08:55:00 AM [facility] R079 Chest pain, unspecified Chest pain, unspecified Diagno sis 05/07/2020 09:30:00 AM [facility] I10 Essential (primary) hypertension Essential (primary) h ypertension Diagnosis 04/30/2020 08:24:00 AM [facility] E782 Mixed hyperlipidemia Mixed hyperlipidemia Diagnosis 04/30/2020 08:24:00 AM [facility] R5383 Other fatigue Other fatigue Diagnosis 04/30/2020 08:24:00 AM [facility] Z125 Encounter for screening for malignant ne oplasm of prostate Encounter for screening for malignant neoplasm of prostate Diagnosis 0 07:43:00 AM [facility] E291 Testicular hypofunction Testicular hypofunction Diagno sis 08/12/2019 07:43:00 AM [facility] E8352 Hypercalcemia Hypercalcemia Diagnosis 08/12/2019 07:43:00 AM [facility] R15420 Personal history of nicotine dependence Personal history of nicotine dependence Diagnosis 07/07/2019 01:18:00 PM [facility] Z7984 custodial (current) use of oral hypoglyc emic drugs rn pacu (current) use of oral hypoglycemic drugs Diagnosis 07/07/2019 01:18:00 PM [facility] Z7982 custodial (current) use of aspirin rn pacu (cu rrent) use of aspirin Diagnosis 07/07/2019 01:18:00 PM [facility] J449 Chronic obstructive pulmonary disease, u nspecified Chronic obstructive pulmonary disease, unspecified Diagnosis 07/07/2019 01:18:00 PM [facility] E119 Type 2 diabetes mellitus without complic ations Type 2 diabetes mellitus without complications Diagnosis 07/07/2019 01:18:00 PM [facility] M7022 Olecranon bursitis, left elbow Olecranon bursitis, lef t elbow Diagnosis 07/07/2019 01:18:00 PM [facility] R2232 Localized swelling, mass and lump, left upper limb Localized swelling, mass and lump, left upper limb Diagnosis 07/07/2019 01:18:00 PM [facility] Y9389 Activity, other specified Activity, other specified Di agnosis 07/07/2019 01:18:00 PM [facility] Surgeries/Procedures Procedure Description Date Indications Data Source(s) INSERTION INDWELLING TUNNELED PLEURAL CATHETER 020 12:00:00 AM EST [facility] ([facility], ) DEMO&/EVAL OF PT UTILIZ AERSL GEN/NEB/INHLR/IPPB 06/01 12:00:00 AM EST [facility] ([facility], ) ECG ROUTINE ECG W/LEAST 12 LDS W/I&R POCT AMB EKG Routine 05/28/2020 9:15 AM EST Chest pain, unspecified type 05/28/2020 02:15:00 PM EST [place] [facility] pain, unspecified type [facility] Chest pain, unspecified type ELECTROCARDIOGRAM, COMPLETE (EKG) ELECTROCARDIOGRAM, COMPLET E (EKG) 05/07/2020 12:00:00 AM EST [facility]) ELECTROCARDIOGRAM, COMPLETE (EKG) ELECTROCARDIOGRAM, COMPLET E (EKG) 05/07/2020 12:00:00 AM EST [place] ([facility]) Computed tomography angiography of thorax (procedure) 04/11/2020 08:44:00 PM EDT [facility] Computed tomography angiography of thorax (procedure) 04/11/2020 08:44:00 PM EDT [facility] l Plain chest X-ray (procedure) 04/11/2020 05:34:00 PM E DT [facility] CT Head without contrast 04/11/2020 05:34:00 PM EDT [facility] Plain chest X-ray (procedure) 04/11/2020 05:34:00 PM E DT [facility] CT Head without contrast 04/11/2020 05:34:00 PM EDT [facility] Blood Culture 04/11/2020 12:00:00 AM EDT [facility] SARS-CoV-2 (PCR) Interpretation 04/11/2020 12:00:00 AM EDT [facility] Blood Culture 04/11/2020 12:00:00 AM EDT [facility] SARS-CoV-2 (PCR) Interpretation 04/11/2020 12:00:00 AM EDT [facility] ELECTROCARDIOGRAM, COMPLETE (EKG) ELECTROCARDIOGRAM, COMPLET E (EKG) 08/20/2019 12:00:00 AM [facility]) FECAL BLOOD ASSAY TEST (waived laboratory) FECAL BLOOD ASSAY TEST (waived laboratory) 08/20/2019 12:00:00 AM [facility]) O2 SATURATION> 88% /OLI>55 O2 SATURATION> 88% /OLI>55 2019 12:00:00 AM [facility]) FECAL BLOOD ASSAY TEST FECAL BLOOD ASSAY TEST 08/20/2019 12:00:00 A M [facility]) ELECTROCARDIOGRAM, COMPLETE (EKG) ELECTROCARDIOGRAM, COMPLET E (EKG) 08/20/2019 12:00:00 AM [facility]) O2 SATURATION> 88% /OLI>55 O2 SATURATION> 88% /OLI>55 2019 12:00:00 AM [facility]) Blood culture for bacteria, including anaerobic screen (proc edure) 07/07/2019 12:00:00 AM [facility] l Gram stain microscopy (procedure) 07/07/2019 12:00:00 AM [facility] Aerobic microbial culture (procedure) 07/07/2019 12:00 :00 AM [facility] Blood culture for bacteria, including anaerobic screen (proc edure) 07/07/2019 12:00:00 AM [facility] l Gram stain microscopy (procedure) 07/07/2019 12:00:00 AM [facility] Aerobic microbial culture (procedure) 07/07/2019 12:00 :00 AM [facility] HbA1c (Glycosolated) (waived laboratory) HbA1c (Glycos olated) (waived laboratory) 06/25/2019 12:00:00 AM [facility] ([facility]) CAPILLARY BLOOD DRAW CAPILLARY BLOOD DRAW 06/25/2019 12:00:00 AM [facility] ([facility]) GLUCOSE (waived laboratory) GLUCOSE (waived laboratory) 12/2019 12:00:00 AM [facility] ([facility]) O2 SATURATION> 88% /OLI>55 O2 SATURATION> 88% /OLI>55 2019 12:00:00 AM [facility] ([facility]) Results ID Date Data Source [id number] 06/22/2020 12:00:00 AM [facility] ology Imaging Lizett Cooley MD Patient Name: TOLU [id number] Date of : 1955[place] [address] Date of Exam: 06/22/2020#: Fax: [phone] EXAM: [...] rce(s) Supporting Document(s) ID Date Data Source [id number] 06/08/2020 04:28:00 AM EST [facility] Name Value Range Interpretation Code Description Data Shelly rce(s) Supporting Document(s) SARS coronavirus 2 RNA [Presence] in Res piratory specimen by KRISTEN with probe detection [facility] This lab was ordered by [facility] a nd reported by [facility]. ID Date Data Source [id number] 06/26/2020 06:36:00 PM [facility] Anatomic Molecular Pathology ReportName: TOLU RATLIFFMRMary: [id number] Number: [id number] Date: 06/08/2020 00:00Received Date: 06/16/2020 09:03Physician(s): BETHANY FELIX MD HAGHIR, SHAHANDEH F,MDCopy To:LIZETT COOLEY,[facility]ANEpecimen(s) ReceivedA: Pleural fluid, Formalin Block [id number] A2 received from [facility] in [place], [place], ROS1 by FISHDiagnosisTEST:ROS1 gene rearrangements by [...] Zaccarini, M.D. Attending Pathologist 06/26/2020 18:36:59Reported at [address] [place] [address]. Gross DescriptionMETHODOLOGY:Interphase FISH is performed on paraffin embedded NSCLC utilizing thecombined Vaughn Molecular LSI ROS1(Eliza) and ROS1(Tel) ROS1 Probes: 1)3'-ROS1(Eliza), 557 kb, labeled with SpectrumGreen, and 2) 5'- ROS1(Tel),317kb, labeled with SpectrumOrange. Tumor cells with no EMK0hxdvmoydsgakat have 2 yellow signals (fused orange and [...] and its performance characteristics weredetermined by the [facility],and it has been authorized for clinical use by [facility]. The test has not been cleared or approved by the U.S. Food andDrug Administration. The analyte specific reagents used in this assay donot require FDA approval. REFERENCES: 1. SHANTELL Juarez, Daisy AT, Theparadise RIVAS et al. Identifying and Targeting VZV4Mpct Fusions in NonSmall Cell Lung Cancer. Clin Cancer Res 2012; 18(17);53623038.2. Iqbal, Severo AT. Novel Targets in Non-Small Cell Lung Cancer:ROS-1 and RET fusions. The Oncologist. 2013;18:865-875.This report may include one or more immunohistochemical stain results thatuse analyte specific reagents. All positive and negative controls havebeen reviewed by the attending pathologist and are satisfactory. The testswere developed and their performance characteristics determined by [facility] Pathology department. They have not been cleared or approved by the USFood and Drug Administration. The FDA has determine d that such clearanceor approval is not necessary. Name Value Range Interpretation Code Description Data Shelly rce(s) Supporting Document(s) ID Date Data Source [id number] 06/25/2020 12:10:00 PM [facility] Anatomic Molecular Pathology ReportName: TOLU RATLIFFMRN: [id number] Number: [id number] Date: 06/08/2020 00:00Received Date: 06/16/2020 09:06Physician(s): BETHANY FELIX,BETHANY GRULLON,MDCopy To:LIZETT COOLEY,[facility] INSANEpecimen(s) ReceivedA: Pleural fluid, Formalin Block [id number] A2 received from [facility] in [place], [place] BRAF Mutation AnalysisDiagnosisTESTS:BRAF V600E mutation (1799 [...] Miranda M.D. Attending Pathologist 06/25/2020 12:10:33Reported at [address] [place] [address]. Gross DescriptionMETHODOLOGY:BRAF V600E(1799 T>A) mutation at exon [...] theamounts of PCR products, and analyzed by WebsandGene Q real timeinstrument. The analytical sensitivity (or minimum percentage of mutantDNA needed) is approximately 10% given sufficient DNA input. Test development and its performance characteristics were determined bythe [facility], and has beenauthorized for clinical use by [facility]. Thetest has not been cleared or approved by the U.S. Food and DrugAdministration. The analyte specific reagents used in this assay do notrequire FDA approval. REFERENCES: 1. Dolores S, Deandre Cortés, et al. Detection of BRAF Q901Qhrkldahf in colorectal cancer-comparison of automatic sequencing and realtime chemistry methodology. J Mol Diagn. 2006; 8:254990.2. Raul L, Chica REINA, Nayeli N, et al. BRAF mutation analysis in fineneedle aspiration (FNA) cytology of the thyroid. Diagn Mol Pa thol.2006;15:588754.3. Brenda PK, Glen ME, Lelo M, et al. Clinical characteristics ofpatients with lung adenocarcinomas harboring BRAF mutations. J Clin Oncol.2011;29:3171-7885.This report may include one or more immunohistochemical stain results thatuse analyte specific reagents. All positive and negative controls havebeen reviewed by the attending pathologist and are satisfactory. The testswere developed and their performance characteristics determined by [facility] Pathology department. They have not been cleared or approved by the USFood and Drug Administration. The FDA has determined that such clearanceor approval is not necessary. Name Value Range Interpretation Code Description Data Shelly rce(s) Supporting Document(s) ID Date Data Source [id number] 06/25/2020 09:32:00 [facility] Anatomic Molecular Pathology ReportName: TOLU RATLIFFNICK: [id number] Number: [id number] Date: 06/08/2020 00:00Received Date: 06/16/2020 09:04Physician(s): BETHANY FELIX MD HAGHIR, SHAHANDEH F,[facility] NORMANopy To:LIZETT COOLEY,[facility]ANEpecimen(s) ReceivedA: Pleural fluid, Formalin Block [id number] A2 received from [facility] in [place], [place] EGFRDiagnosisTEST: EGFR gene mutations (exon 19 [...] indicated. Presence of exon 19 deletions, exon 58S415R or L861Q, exon 18 G719A or exon [...] Miranda M.D. Attending Pathologist 06/25/2020 09:32:10Reported at [address] [place] [address]. Gross DescriptionMETHODOLOGY:The therascreen EGFR RGQ PCR Kit ([employer], [place], [place]) is a real-timequalitative PCR assay used on the Unbabel instrument for thedetection of seven types of [...] factor receptormutations in lung cancer. Nature Review/Cancer. 2007;9803-3935.This report may include one or more immunohistochemical stain results thatuse analyte specific reagents. All positive and negative controls havebeen reviewed by the attending pathologist and are satisfactory. The testswere developed and their performance characteristics determined by [facility] Pathology department. They have not been cleared or approved by the USFood and Drug Administration. The FDA has determined that such clearanceor approval is not necessary. Name Value Range Interpretation Code Description Data Shelly rce(s) Supporting Document(s) ID Date Data Source [id number] 06/25/2020 09:18:00 AM [facility] Anatomic Molecular Pathology ReportName: TOLU RATLIFFNICK: [id number] Number: [id number] Date: 06/08/2020 00:00Received Date: 06/16/2020 09:05Physician(s): BETHANY FELIX MD HAGHIR, SHAHANDEH F,[facility]opy To:LIZETT COOLEY,[facility]ANEpecimen(s) ReceivedA: Pleural fluid, Formalin Block [id number] A2 received from [facility] in [place], [place] KRAS Mutation AnalysisDiagnosisTEST:KRAS gene mutations by [...] Miranda M.D. Attending Pathologist 06/25/2020 09:18:25Reported at [address] [place] [address]. Gross DescriptionMETHODOLOGY:The therascreen KRAS RGQ PCR Kit is a real-time qualitative PCR assay usedon the Cardiosonic instrument for the detection of seven somaticmutations [...] Morejon, Terri JM, Somepeter MR, et al. [place] Societyof Clinical Oncology provisional clinical opinion: testing for KRAS genemutations in patients with metastatic colorectal carcinoma to predictresponse to anti-epidermal growth factor receptor monoclonal antibodytherapy. J Clin Oncol 27:4282-6552, 2009. 2. Robbie Nichols , Peg Javed , GALINA Mace, et al.Biomarkers predicting clinical outcome of epidermal growth factor receptortargeted therapy in metastatic colorectal cancer. J Natl Cancer Clqd543:24459430, 2009.This report may include one or more immunohistochemical stain results thatuse analyte specific reagents. All positive and negative controls havebeen reviewed by the attending pathologist and are satisfactory. The testswere developed and their performance characteristics determined by [facility] Pathology department. They have not been cleared or approved by the USFood and Drug Administration. The FDA has determined that such clearanceor approval is not necessary. Name Value Range Interpretation Code Description Data Shelly rce(s) Supporting Document(s) ID Date Data Source [id number] 06/25/2020 09:10:00 AM EST [facility] Anatomic Molecular Pathology ReportName: TOLU RATLIFFMRN: [id number] Number: [id number] Date: 06/08/2020 00:00Received Date: 06/16/2020 09:01Physician(s): BETHANY FELIX MD HAGHIR, SHAHANDEH F,MDCopy To:LIZETT COOLEY,[facility]ANEpecimen(s) ReceivedA: Pleural fluid, Formalin Block [id number] received from [facility] in [place], [place], ALK by FISHDiagnosisTEST:ALK gene rearrangements by [...] Miranda M.D. Attending Pathologist 06/25/2020 09:10:47Reported at [address] [place] [address]. Gross DescriptionMETHODOLOGY:Interphase FISH is performed on paraffin embedded NSCLC utilizing theActuatedMedical Molecular ALK Break Apart FISH Probe Kit. [...] the special procedure laboratory of Department of Pathology,[facility]. This report may include one or more immunohistochemical stain results thatuse analyte specific reagents. All positive and negative controls havebeen reviewed by the attending pathologist and are satisfactory. The testswere developed and their performance characte ristics determined by [facility] Pathology department. They have not been cleared or approved by the USFood and Drug Administration. The FDA has determined that such clearanceor approval is not necessary. Name Value Range Interpretation Code Description Data Shelly rce(s) Supporting Document(s) ID Date Data Source [id number] 05/07/2020 09:36:00 AM [facility] ([facility]) Name Value Range Interpretation Code Description Data Shelly rce(s) Supporting Document(s) Reported Physicians See Note Reported Physici ans [place] ([facility]) Note: Reported Physicians:Ordering: Esha De La Garza AAttending: ESHA TALAMANTESConsulting: Alex TALAMANTES To: Esha Talamantes ID Date Data Source [id number] 05/07/2020 09:36:00 AM [facility] ([facility]) Name Value Range Interpretation Code Description Data Shelly rce(s) Supporting Document(s) Procalcitonin [Mass/volume] in Serum or Plasma by Immunoassay 0.04 ng/mL Procalcitonin [place] ([facility]) Note: A procalcitonin (PCT) level above 2.0 [...] obtained.Responsible Observer: (rfl) ID Date Data Source [id number] 05/07/2020 09:36:00 AM EST [facility] ([facility]) Name Value Range Interpretation Code Description Data Shelly rce(s) Supporting Document(s) Reported Physicians See Note Reported [facility] ([facility]) Note: Reported Physicians:Ordering: Beard e, Esha AAttending: VINITA, JOCELYNConsulting: VINITA, JOCELYNCopy To: Vinita, Esha ID Date Data Source [id number] 05/07/2020 09:36:00 AM [facility] ([facility]) Name Value Range Interpretation Code Description Data Shelly rce(s) Supporting Document(s) SED RATE 18 mm/hr SED RATE [place] ([facility]) Note: Responsible Observer: (CM) SED RATE REENTER 18 SED RATE REENTER [facility] ([facility]) Note: Responsible Observer: (CM) ID Date Data Source [id number] 05/07/2020 09:36:00 AM EST [place] ([facility]) Name Value Range Interpretation Code Description Data Shelly rce(s) Supporting Document(s) Reported Physicians See Note Reported [facility] ([facility]) Note: Reported Physicians:Ordering: Beard e, Esha AAttending: VINITA, JOCELYNConsulting: VINITA, JOCELYNCopy To: Vinita, Esha ID Date Data Source [id number] 05/07/2020 09:36:00 AM [facility] ([facility]) Name Value Range Interpretation Code Description Data Shelly rce(s) Supporting Document(s) CRP-HS 8.40 MG/L Above high normal CRP-HS [facility] ([facility]) Note: CDC/S HS-CRP CUT-OFF : RELATIVE RISK: <1.0 mg/L Low 1.0 - 3.0 mg/L Average >3.0 mg/L High Optimally, the average of HS-CRP results repeated two weeks apart should be used for risk assessment.Responsible Observer: () ID Date Data Source [id number] 05/07/2020 09:36:00 AM EST [facility] ([facility]) Name Value Range Interpretation Code Description Data Shlely rce(s) Supporting Document(s) Reported Physicians See Note Reported [facility] ([facility]) Note: Reported Physicians:Ordering: Beard e, Esha AAttending: VINITA, JOCELYNConsulting: VINITA, JOCELYNCopy To: Vinita, Esha ID Date Data Source [id number] 05/07/2020 09:36:00 AM EST [facility] ([facility]) Name Value Range Interpretation Code Description Data Shelly rce(s) Supporting Document(s) BNP 211 PG/ML Above high normal BNP [place] ([facility]) Note: Responsible Observer: () ID Date Data Source [id number] 05/07/2020 09:36:00 AM EST [facility] ([facility]) Name Value Range Interpretation Code Description Data Shelly rce(s) Supporting Document(s) Reported Physicians See Note Reported [facility] ([facility]) Note: Reported Physicians:Ordering: Beard e, Esha AAttending: VINITA, JOCELYNConsulting: VINITA, JOCELYNCopy To: Vinita, Esha ID Date Data Source [id number] 05/07/2020 09:36:00 AM EST [facility] ([facility]) Name Value Range Interpretation Code Description Data Shelly rce(s) Supporting Document(s) TROPONIN T <0.01 NG/ML TROPONIN T [place] ([facility]) Note: TROPONIN T0.1 ng/ml Recommended as the clinical threshold value forTroponin T.Responsible Observer: () ID Date Data Source [id number] 05/07/2020 09:36:00 AM EST [facility] ([facility]) Name Value Range Interpretation Code Description Data Shelly rce(s) Supporting Document(s) Reported Physicians See Note Reported [facility] ans [facility] ([facility]) Note: Reported Physicians:Ordering: Esha De La Garza AAttending: ESHA TALAMANTESConsulting: Alex TALAMANTES To: Esha Talamantes ID Date Data Source [id number] 05/07/2020 09:36:00 AM EST [facility] ([facility]) Name Value Range Interpretation Code Description Data Shelly rce(s) Supporting Document(s) #BASO 0.05 10\\^3/uL #BASO [facility] ([facility]) Note: Responsible Observer: () #EOS 0.38 10\\^3/uL #EOS [facility] ([facility]) Note: Responsible Observer: () #IG 0.03 10\\^3/uL #IG [facility] ([facility]) Note: Responsible Observer: () #LYMPH 1.37 10\\^3/uL #LYMPH [facility] ([facility]) Note: Responsible Observer: () #MONO 0.85 10\\^3/uL #MONO [facility] ([facility]) Note: Responsible Observer: () #NEUT 6.85 10\\^3/uL #NEUT [facility] ([facility]) Note: Responsible Observer: () #NRBC 0.00 10\\^3/uL #NRBC [facility] ([facility]) Note: Responsible Observer: (MD) %EOS 5 % %EOS [facility] ([facility]) Note: Responsible Observer: (CLD) %IG 0.3 % Above high normal %IG [facility] ([facility]) Note: Responsible Observer: (MD) %LYMPH 13 % Below low normal %LYMPH [facility] ([facility]) Note: Responsible Observer: (CLD) %MONO 7 % %MONO [facility] ([facility]) Note: Responsible Observer: (CLD) %NRBC 0.0 % %NRBC [facility] Note: Responsible Observer: () BAND 0 % BAND [facility] ([facility]) Note: Responsible Observer: (CLD) BASO 0.5 % BASO [facility] ([facility]) Note: Responsible Observer: () Blasts [#] in Body fluid by Manual count 0 % BLASTS [facility] ([facility]) Note: Responsible Observer: (CLD) CBC W/MANUAL DIFF See Note CBC W/MANUAL DIFF [facility] ([facility]) Note: CO RRECTED REPORT COMPLETE BLOOD COUNTResponsible Observer: (CLD) EOS 4.0 % EOS [facility] ([facility]) Note: Responsible Observer: () Hematocrit [Pure volume fraction] of Blood by Automated count 41.4 % HEMATOCRIT [place] ([facility]) Note: Responsible Observer: () Hemoglobin [Mass/volume] in Mixed venous blood by Oximetry 14.0 g/d L HEMOGLOBIN [facility] ([facility]) Note: Responsible Observer: () LYMPH 14.4 % Below low normal LYMPH [facility] ([facility]) Note: Responsible Observer: () MANUAL DIFF SEE BELOW MANUAL DIFF [facility] ([facility]) Note: Responsible Observer: (CLD) MCH 30.2 pg MCH [facility] ([facility]) Note: Responsible Observer: () MCHC 33.8 g/dL MCHC [facility] ([facility]) Note: Responsible Observer: () MCV 89.2 fL MCV [facility] ([facility]) Note: Responsible Observer: () MONO 8.9 % Above high normal MONO [facility] ([facility]) Note: Responsible Observer: () MPV 8.6 fL MPV [facility] ([facility]) Note: Responsible Observer: () NEUT 71.9 % NEUT [facility] ([facility]) Note: Responsible Observer: () Platelets [#/area] in Blood by Microscopy high power field 300 10\\^ 3/uL PLATELETS [facility] ([facility]) Note: Responsible Observer: () RBC 4.64 10\\^6/uL RBC [place] ([facility]) Note: Responsible Observer: () RBC MORPH NOT INDICATED RBC MORPH [place] ([facility]) Note: FOLLOWING RE SULTS REPORTED IN ERROR MANUAL DIFF NOTINDICATED <-- *Previously reported in error 05/07/20.0948.MD . . .M{ CORRECTResponsible Observer: () RDW 12.2 % RDW [place] ([facility]) Note: Responsible Observer: () SEGS 75 % SEGS [place] ([facility]) Note: Responsible Observer: (MOISES) WBC 9.5 10\\^3/uL WBC [place] ([facility]) Note: Responsible Observer: () ID Date Data Source [id number] 05/12/2020 06:51:00 AM EST [facility] Name Value Range Interpretation Code Description Data Shelly rce(s) Supporting Document(s) Procalcitonin [Mass/volume] in Serum or Plasma 0.04 ng/mL 0.00-0.08 [facility] A procalcitonin (PCT) level above 2.0 ng [...] ng/mL are obtained. ID Date Data Source [id number] 05/07/2020 10:37:00 AM [facility] Name Value Range Interpretation Code Description Data Shelly rce(s) Supporting Document(s) BNP 211 PG/ML 0 - 125 H [facility] Hospit al ID Date Data Source [id number] 05/07/2020 10:37:00 AM [facility] Name Value Range Interpretation Code Description Data Shelly rce(s) Supporting Document(s) C reactive protein [Mass/volume] in Serum or Plasma by High sensitivity method 8.40 MG/L 1.00 - 3.00 H [facility] CDC/S HS-CRP CUT-OFF: RELATIVE RISK: <1.0 mg/L Low 1.0 - 3.0 mg/L Average >3.0 mg/L High Optimally, the average of HS-CRP results repeated two weeks apart should be used for risk assessment. ID Date Data Source [id number] 05/07/2020 10:27:00 AM [facility] Name Value Range Interpretation Code Description Data Shelly rce(s) Supporting Document(s) CBC W/MANUAL DIFF [facility] CORRECTE D REPORT COMPLETE BLOOD COUNT Leukocytes [#/volume] in Blood by Automated count 9.5 10^3/uL 4.2 - 1 1.0 [facility] Erythrocytes [#/volume] in Blood by Automated count 4.64 10^6/uL 4. 50 - 6.30 [facility] Hemoglobin [Mass/volume] in Blood 14.0 g/dL 14.0 - 16.0 [facility] Hematocrit [Volume Fraction] of Blood by Automated count 41.4 % 4 1.0 - 51.0 [facility] Erythrocyte mean corpuscular volume [Entitic volume] by Auto mated count 89.2 fL 80.0 - 94.0 [facility] Erythrocyte mean corpuscular hemoglobin [Entitic mass] by Automated count 30.2 pg 27.0 - 34.0 [facility] Erythrocyte mean corpuscular hemoglobin concentration [Mass/volume] by Automated count 33.8 g/dL 31.0 - 36.0 [facility] Erythrocyte distribution width [Ratio] by Automated count 12.2 % 11.5 - 14.8 [facility] Platelets [#/volume] in Blood by Automated count 300 10^3/uL 150 - 45 0 [facility] Platelet mean volume [Entitic volume] in Blood by Automated count 8.6 fL 7.4 - 10.4 [facility] Neutrophils/100 leukocytes in Blood by Automated count 71.9 % 37. 0 - 80.0 [facility] Lymphocytes/100 leukocytes in Blood by Manual count 14.4 % 25.0 - 40.0 L [facility] Monocytes/100 leukocytes in Blood by Automated count 8.9 % 3.0 - 8.0 H [facility] Eosinophils/100 leukocytes in Blood by Automated count 4.0 % 0.0 - 7.0 [facility] Basophils/100 leukocytes in Blood by Automated count 0.5 % 0.0 - 2.0 [facility] %IG 0.3 % 0.0 - 0.0 H [facility] al %NRBC 0.0 % 0.0 - 0.0 [facility] Neutrophils [#/volume] in Blood by Automated count 6.85 10^3/uL 2.00 - 6.90 [facility] Lymphocytes [#/volume] in Blood by Automated count 1.37 10^3/uL 0.60 - 3.40 [facility] Monocytes [#/volume] in Blood by Automated count 0.85 10^3/uL 0.00 - 0.90 [facility] Eosinophils [#/volume] in Blood by Automated count 0.38 10^3/uL 0.00 - 0.70 [facility] Basophils [#/volume] in Blood by Automated count 0.05 10^3/uL 0.00 - 0.20 [facility] #IG 0.03 10^3/uL 0.00 - 0.10 [facility] H ospital #NRBC 0.00 10^3/uL 0.00 - 0.00 [facility] ospital MANUAL DIFF SEE BELOW [facility] ital Segmented neutrophils/100 leukocytes in Blood by Manual count 75 % 37 - 80 [facility] Hospital BAND 0 % 0 - 5 [facility] %LYMPH 13 % 25 - 40 L [facility] %MONO 7 % 3 - 8 [facility] %EOS 5 % 0 - 7 [facility] Blasts/100 leukocytes in Blood by Manual count 0 % [facility] RBC MORPH NOT INDICATED [facility] Ho spital FOLLOWING RESULTS REPORTED IN ERROR MANUAL DIFF { CORRECT ID Date Data Source [id number] 05/07/2020 10:26:00 AM [facility] Name Value Range Interpretation Code Description Data Shelly rce(s) Supporting Document(s) TROPONIN T <0.01 NG/ML 0.00 - 0.10 [facility] ospital TROPONIN T0.1 ng/ml Recommended as the c linical threshold value forTroponin T. ID Date Data Source [id number] 05/07/2020 10:06:00 AM [facility] Name Value Range Interpretation Code Description Data Shelyl rce(s) Supporting Document(s) Erythrocyte sedimentation rate by Westergren method 18 mm/hr 0 - 20 [facility] SED RATE REENTER 18 [facility] ID Date Data Source [id number] 04/30/2020 08:37:00 AM EST [place] ([facility]) Name Value Range Interpretation Code Description Data Shelly rce(s) Supporting Document(s) Reported Physicians See Note Reported Physici ans [place] ([facility]) Note: Reported Physicians:Ordering: Esha De La Garza AAttending: ESHA TALAMANTESConsulting: Alex TALAMANTES To: Esha Talamantes ID Date Data Source [id number] 04/30/2020 08:37:00 AM EST [facility] ([facility]) Name Value Range Interpretation Code Description Data Shelly rce(s) Supporting Document(s) CPK 59 U/L CPK [place] ([facility]) Note: Responsible Observer: (TAD) ID Date Data Source [id number] 04/30/2020 08:37:00 AM [facility] ([facility]) Name Value Range Interpretation Code Description Data Shelly rce(s) Supporting Document(s) Reported Physicians See Note Reported Physici ans [place] ([facility]) Note: Reported Physicians:Ordering: Esha De La Garza AAttending: ESHA TALAMANTESConsulting: JUSTUS TALAMANTESYNCopninfa To: Esha Talamantes ID Date Data Source [id number] 04/30/2020 08:37:00 AM [facility] ([facility]) Name Value Range Interpretation Code Description Data Shelly rce(s) Supporting Document(s) Cholesterol [Moles/volume] in Pericardial fluid 162 MG/DL CHOLESTEROL [place] ([facility]) Note: Responsible Observer: (TAD) CVE PANEL See Note CVE PANEL [place] ([facility]) Note: LIPID PANELResponsible Observe r: (TAD) HDL 40 MG/DL HDL [place] ([facility]) Note: Responsible Observer: (TAD) Cholesterol in LDL [Mass/volume] in Serum or Plasma by Direct as say 91 mg/dL LDL [place] ([facility]) Note: Responsible Observer: (TAD) LDL/HDL 2.28 LDL/HDL [place] ([facility]) Note: CVE RISK CHOL/HD L LDL/HDLMEN: 1/2 AVERAGE 3.43 1.00 AVERAGE 4.97 3.55 2X AVERAGE 9.55 6.25 3X AVERAGE 23.99 7.99WOMEN: 1/2 AVERAGE 3.27 1.47 AVERAGE 4.44 3.22 2X AVERAGE 7.05 5.03 3X AVERAGE 11.04 6.14Responsible Observer: (TAD) RISK FACTOR 4.1 RISK FACTOR [place] ([facility]) Note: Responsible Observer: (TAD) TRIGLYCERIDES 198 MG/DL Above high normal [facility] Note: Responsible Observer: (TAD) ID Date Data Source [id number] 04/30/2020 08:37:00 AM EST [place] ([facility] Name Value Range Interpretation Code Description Data Shelly rce(s) Supporting Document(s) Reported Physicians See Note Reported Physici ans [place] ([facility]) Note: Reported Physicians:Ordering: Beard e, Esha AAttending: VIINTA, JOCELYNConsulting: VINITA, JOCELYNCopy To: Vinita, Esha ID Date Data Source [id number] 04/30/2020 08:37:00 AM EST [place] ([facility]) Name Value Range Interpretation Code Description Data Shelly rce(s) Supporting Document(s) URIC ACID 5.1 MG/DL URIC ACID [place] ([facility]) Note: Responsible Observer: (JULIO) ID Date Data Source [id number] 04/30/2020 08:37:00 AM EST [place] ([facility] Name Value Range Interpretation Code Description Data Shelly rce(s) Supporting Document(s) Reported Physicians See Note Reported [facility] ([facility]) Note: Reported Physicians:Ordering: Beard e, Esha AAttending: VINITA, JOCELYNConsulting: VINITA, JOCELYNCopy To: Vinita, Esha ID Date Data Source [id number] 04/30/2020 08:37:00 AM EST [place] ([facility]) Name Value Range Interpretation Code Description Data Shelly rce(s) Supporting Document(s) TSH 2.19 uIU/mL TSH [place] ([facility]) Note: Responsible Observer: (TAD) ID Date Data Source [id number] 04/30/2020 09:31:00 AM [facility] Name Value Range Interpretation Code Description Data Shelly rce(s) Supporting Document(s) Thyrotropin [Units/volume] in Serum or Plasma by Detec tion limit <= 0.05 mIU/L 2.19 uIU/mL 0.47 - 5.01 [facility] ID Date Data Source [id number] 04/30/2020 09:27:00 AM [facility] Name Value Range Interpretation Code Description Data Shelly rce(s) Supporting Document(s) Urate [Mass/volume] in Serum or Plasma 5.1 MG/DL 2.5 - 8.5 [facility] ID Date Data Source [id number] 04/30/2020 09:27:00 AM [facility] Name Value Range Interpretation Code Description Data Shelly rce(s) Supporting Document(s) Creatine kinase [Enzymatic activity/volume] in Serum or Plasma 5 9 U/L 30 - 170 [facility] ID Date Data Source [id number] 04/30/2020 09:27:00 AM [facility] Name Value Range Interpretation Code Description Data Shelly rce(s) Supporting Document(s) [facility] Cholesterol [Mass/volume] in Serum or Plasma 162 MG/DL 131 - 200 [facility] Deprecated Triglyceride [Mass/volume] in Serum or Plasma 198 MG/DL 3 5 - 160 H [facility] HDL 40 MG/DL 29 - 86 [facility] Cholesterol in LDL [Mass/volume] in Serum or Plasma by Direc t assay 91 mg/dL 65 - 175 [facility] Cholesterol.total/Cholesterol in HDL [Mass Ratio] in Serum o r Plasma 4.1 3.4 - 4.9 [facility] LDL/HDL 2.28 1.00 - 3.55 [facility] ital CVE RISK CHOL/HDL LDL/HDLMEN: 1/2 AVERAGE 3.43 1.00 AVERAGE 4.97 3.55 2X AVERAGE 9.55 6.25 3X AVERAGE 23.99 7.99WOMEN: 1/2 AVERAGE 3.27 1.47 AVERAGE 4.44 3.22 2X AVERAGE 7.05 5.03 3X AVERAGE 11.04 6.14 ID Date Data Source [id number] 04/12/2020 09:42:00 AM EDT [facility] Name: TOLU RATLIFF : 1955 Age: 64 MR#: [id number] Admit Date: 04/11/20 Provider: Honorio De Souza [...] % (Auto) 68.7, Lymph % (Auto) 20.9, [place] % (Auto) 8.4, Eos % (Auto) 1.2, [...] earance Clear, Urine pH 5.0, Ur Specific [place] 1.010,Urine Protein Negative, Urine Ketones Negative, Urine [...] 94.0 H, Lymph % (Auto) 4.2 L, [place] % (Auto) 1.2 L, Eos % (Auto) [...] was instructed to f/u with 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 Pt was clinically and vitally stable [...] metformin 500 mg PO DAILY 04/11/20 [History] dmfhedqrqdnm-xjpvhjup-thwxwy 1 tab PO DAILY 04/11/20 [History] azithromycin [...] PRN (Reason: Shortness Of Breath) RF: 0 tcdebeqhqgly-xdfggyzz-dnyyiq Tablet 1 tab PO DAILY RF: 0 [...] rce(s) Supporting Document(s) ID Date Data Source [id number] 04/12/2020 07:40:00 AM EDT [facility] @04/12/20 0729: MANUAL DIFF added. RFLXG = DIFF. @04/12/20728: MANUAL DIFF added. RFLXG = DIFF. Name Value Range Interpretation Code Description Data Shelly rce(s) Supporting Document(s) Leukocytes [#/volume] in Blood by Automated count 14.6 10*3/uL 4.45-10.71 Above high normal [facility] Erythrocytes [#/volume] in Blood by Automated count 4.85 10*6/uL 4.3- 6.1 N [facility] Hemoglobin [Moles/volume] in Blood 14.7 g/dL 13-18 N [facility] Hematocrit [Volume Fraction] of Blood by Automated count 44.4 % 4 2-52 N [facility] Erythrocyte mean corpuscular volume [Ent itic volume] in Cord blood by Automated count 91.5 fL 80-96 N [facility] ital Erythrocyte mean corpuscular hemoglobin [Entitic mass] by Automated count 30.3 pg 27-31 [facility] Erythrocyte mean corpuscular hemoglobin concentration [Mass/volume] in Cord blood 33.1 g/dL 33-37 N [facility] ital Erythrocyte distribution width [Entitic volume] by Automated count 13 % 11-15 N [facility] Platelets [#/volume] in Blood by Automated count 235 10*3/uL 130-472 N [facility] Platelet mean volume [Entitic volume] in Blood 9.5 fL 9.1-13.1 N [facility] Neutrophils/100 leukocytes in Blood by Automated count 94.0 % 41-77 Above high normal [facility] @PERFORM SLIDE SCAN IF NOT AGREE MAN DIF F@DOCUMENT SLIDE SCAN COMMENT Neutrophils [#/volume] in Blood by Automated count 13.8 U 1.7-7.6 Above high normal [facility] Lymphocytes/100 leukocytes in Blood by Automated count 4.2 % 14-46 Below low normal [facility] Lymphocytes [#/volume] in Blood by Automated count 0.6 U 0.6-4.6 N [facility] Monocytes/100 leukocytes in Blood by Automated count 1.2 % 4-12 Below low normal [facility] Monocytes [#/volume] in Blood by Automated count 0.2 U 0.2-1.2 N [facility] Eosinophils/100 leukocytes in Blood by Automated count 0.0 % 0-7 N [facility] Eosinophils [#/volume] in Blood by Automated count 0.0 U 0.0-0.5 N [facility] Basophils/100 leukocytes in Blood by Automated count 0.1 % 0.4-1.3 Below low normal [facility] Basophils [#/volume] in Blood by Automated count 0.0 U 0.0-0.2 N [facility] NUCLEATED RED BLOOD CELL 0 % [facility] NUCLEATED RED BLOOD CELL# 0 U [facility] Immature granulocytes [Presence] in Blood by Automated count 0-2 N [facility] Immature granulocytes [#/volume] in Blood by Automated count 0.1 U 0-0.1 N [facility] Manual Differential panel - Blood Manual Diff Added [facility] ID Date Data Source [id number] 04/12/2020 07:53:00 AM EDT [facility] @04/12/20 0729: MANUAL DIFF added. RFLXG = DIFF. @04/12/20 07: MANUAL DIFF added. RFLXG = DIFF. Name Value Range Interpretation Code Description Data Shelly rce(s) Supporting Document(s) Urea nitrogen [Mass/volume] in Serum or Plasma 19 mg/dL 9-23 N [facility] Sodium [Moles/volume] in Serum or Plasma 138 mmol/L 132-146 N [facility] Potassium [Moles/volume] in Serum or Plasma 4.6 mmol/L 3.5-5.5 N [facility] Chloride [Moles/volume] in Serum or Plasma 105 mmol/L 99-109 N [facility] Carbon dioxide, total [Moles/volume] in Serum or Plasma 25 mmol/L 20 -31 N [facility] Anion gap in Serum or Plasma 13 mmol/L 8-16 N [facility] Glucose [Mass/volume] in Serum or Plasma 212 mg/dL 74-106 Above high normal [facility] Creatinine 1.1 mg/dL 0.5-1.1 [facility] Glomerular filtration rate/1.73 sq M.pre dicted [Volume Rate/Area] in Serum or Plasma Greater Than 60 ABOVE 60 [facility] Alanine aminotransferase [Enzymatic acti vity/volume] in Serum or Plasma by With P-5'-P 30 U/L 10-49 N [facility] ital Aspartate aminotransferase [Enzymatic ac tivity/volume] in Serum or Plasma by With P-5'-P 11 U/L 0-33 N [facility] pital Alkaline phosphatase [Enzymatic activity/volume] in Serum or Plasma 58 U/L 45-129 N [facility] Calcium [Mass/volume] in Serum or Plasma 9.2 mg/dL 8.5-10.1 [facility] Bilirubin.total [Mass/volume] in Serum or Plasma 0.5 mg/dL 0.3-1.2 [facility] Albumin [Mass/volume] in Serum or Plasma by Bromocresol purple (BCP) dye binding method 3.4 g/dL 3.2-4.8 [facility] ital Protein [Mass/volume] in Serum or Plasma 7.1 g/dL 5.7-8.2 [facility] ID Date Data Source [id number] 04/12/2020 07:40:00 AM EDT [facility] @04/12/20728: MANUAL DIFF added. RFLXG = DIFF. @04/12/20 07: MANUAL DIFF added. RFLXG = DIFF. Name Value Range Interpretation Code Description Data Shelly rce(s) Supporting Document(s) Cells counted [#] 100 [facility] Neutrophils [#/volume] in Blood by Manual count 97 % 41-77 Above high normal [facility] @Are you sure? Please be sure this value is correct YES Lymphocytes [#/volume] in Blood by Manual count 3 % 14-46 Below low normal [facility] Platelets [#/volume] in Blood by Estimate APPEARS NORMAL NORMAL [facility] Morphology [Interpretation] in Blood Narrative APPEARS NORMAL NORMAL [facility] ID Date Data Source [id number] 04/12/2020 07:53:00 AM EDT [facility] @04/12/20 07: MANUAL DIFF added. RFLXG = DIFF. @04/12/20728: MANUAL DIFF added. RFLXG = DIFF. Name Value Range Interpretation Code Description Data Shelly rce(s) Supporting Document(s) Troponin I.cardiac [Mass/volume] in Serum or Plasma Less Than 0.015 0.00-0.09 N [facility] Less than 0.09 NG/ML Negative0.10 - 0.77 NG/ML High Risk0.78 NG/ML or Greater PositiveThe WHO defined the cutoff (definition for diagnosis of [place])for this method as 0.78 ng/ml. ID Date Data Source [id number] 04/12/2020 06:40:00 AM [facility] Name Value Range Interpretation Code Description Data Shelly rce(s) Supporting Document(s) Reported Physicians See Note Reported Physici karoline [place] ([facility]) Note: Reported Physicians:Ordering: Pradeep Ferraraending: John De Souzaitting: Honorio De SouzaCopninfa To: Ancelmo De SouzaamCopninfa To: Esha Talamantes ID Date Data Source [id number] 04/12/2020 06:40:00 AM [facility] Name Value Range Interpretation Code Description Data Shelly rce(s) Supporting Document(s) Troponin I.cardiac [Mass/volume] in Serum or Plasma Less Than 0.015 Normal Troponin I [facility] ([facility]) Note: Less than 0.09 NG/ML Negative 0.10 - 0.77 NG/ML High Risk0.78 NG/ML or Greater PositiveThe WHO defined the cutoff (definition for diagnosis of [place])for this method as 0.78 ng/ml.Responsible Observer: Troponin I Troponin I 600.1101 (G) ID Date Data Source [id number] 04/12/2020 06:40:00 AM [facility] ([facility]) Name Value Range Interpretation Code Description Data Shelly rce(s) Supporting Document(s) MANUAL DIFF See Note MANUAL DIFF [facility] ([facility]) Note: NOTES OTHER/NOT INTERPRETED Cells counted 100 Lymphocytes # Bld Manual 3 %Morphology Bld-Imp APPEARS NORMAL Neutrophils # Bld Manual 97 %Platelet # Bld Est APPEARS NORMAL @Are you sure? Please be sure this value is correct YES@04/12/20 0729: MANUAL DIFF added. RFLXG = DIFF.Responsible Observer: TOTAL CELLS TOTAL CELLS COUNTED 100.2105 (A) ID Date Data Source [id number] 04/12/2020 06:40:00 AM EDT [place] ([facility]) Name Value Range Interpretation Code Description Data Shelly rce(s) Supporting Document(s) Reported Physicians See Note Reported Physici ans [place] ([facility]) Note: Reported Physicians:Ordering: Pradeep Ferraraending: John De Souzaitting: Pete De Souza To: Pete De Souza To: Esha Talamantes ID Date Data Source [id number] 04/12/2020 06:40:00 AM EDT [place] ([facility]) Name Value Range Interpretation Code Description Data Shelly rce(s) Supporting Document(s) Alanine aminotransferase [Enzymatic acti vity/volume] in Serum or Plasma by With P-5'-P 30 enzyme_unit_per_liter Normal ALT SerPl w P-5' -P-cCnc [place] ([facility]) Note: Responsible Observer: SGPT/ALT SGP T/ALT 400.1750 (G) Calcium [Mass/volume] in Serum or Plasma 9.2 MilliGramsPerDeciLiter_[Mass_Concentration_Units] Normal Calcium [facility] ([facility]) Note: Responsible Observer: Calcium Calc ium 400.2500 (G) Bilirubin.total [Mass/volume] in Serum or Plasma 0.5 MilliGramsPerDeciLiter_[Mass_Concentration_Units] Normal Bilirub [facility] ([facility]) Note: Responsible Observer: T ABDIRAHMAN Total Bilirubin 400.2600 (G) Carbon dioxide, total [Moles/volume] in Serum or Plasm a 25 MilliMolesPerLiter_[Substance_Concentration_Units] Normal CO2 [facility] ([facility]) Note: Responsible Observer: CO2 Carbon D ioxide 400.1400 (G) Chloride [Moles/volume] in Serum or Plasma 105 MilliMolesPerLiter_[Substance_Concentration_Units] Normal Chloride [facility] ([facility]) Note: Responsible Observer: Chloride Chl oride 400.1250 (G) Glucose [Mass/volume] in Serum or Plasma 212 MilliGramsPerDeciLiter_[Mass_Concentration_Units] Above high normal Glucose [facility] ([facility]) Note: Responsible Observer: Glucose Gluc ose 400.1500 (G) Potassium [Moles/volume] in Serum or Plasma 4.6 MilliMolesPerLiter_[Substance_Concentration_Units] Normal Potassium [facility] ([facility]) Note: Responsible Observer: K Potassium 400.1210 (G) Protein [Mass/volume] in Serum or Plasma 7.1 GramsPerDeciLiter_[Mass_Concentration_Units] Normal Pro t [facility] ([facility]) Note: Responsible Observer: TP Total Pro tein 400.2800 (G) Sodium [Moles/volume] in Serum or Plasma 138 MilliMolesPerLiter_[Substance_Concentration_Units] Normal Sodium [facility] ([facility]) Note: Responsible Observer: Sodium Sodiu m 400.1100 (G) Aspartate aminotransferase [Enzymatic ac tivity/volume] in Serum or Plasma by With P-5'-P 11 enzyme_unit_per_liter Normal AST [facility] -[facility] ([facility]) Note: Responsible Observer: SGOT / AST S GOT / AST 400.1900 (G) Urea nitrogen [Mass/volume] in Serum or Plasma 19 MilliGramsPerDeciLiter_[Mass_Concentration_Units] Normal BUN [facility] ([facility]) Note: Responsible Observer: BUN Blood Ur ea Nitrogen 400.1000 (G) Anion gap in Serum or Plasma 13 MilliMolesPerLiter_[Substance_Concentration_Units] Normal Anion Gap SerPl-sCnc [place] ([facility]) Note: Responsible Observer: ANION GAP AN ION GAP 400.1402 (E) Albumin [Mass/volume] in Serum or Plasma by Bromocresol purple (BCP) dye binding method 3.4 GramsPerDeciLiter_[Mass_Concentration_Units] Normal Albumin SerP BCP-mCnc [place] ([facility]) Note: Responsible Observer: Albumin [place] min 400.2700 (G) Alkaline phosphatase [Enzymatic activity/volume] in Se rum or Plasma 58 enzyme_unit_per_liter Normal ALP [facility] [place] ( [facility]) Note: Responsible Observer: ALP Alkaline Phosphatase 400.2000 (G) Glomerular filtration rate/1.73 sq M.pre dicted [Volume Rate/Area] in Serum or Plasma Greater Than 60 GFR/BSA.pred SerPlBld-ArV Rat [place] ([facility]) Note: Responsible Observer: GFR Glomerul ar Filt Rate Calc 400.1605 (D) Creatinine [Moles/volume] in Vitreous fluid 1.1 MilliGramsPerDeciLiter_[Mass_Concentration_Units] Normal Creatinine [place] ([facility]) Note: Responsible Observer: Creatinine C reatinine 400.1600 (G) ID Date Data Source [id number] 04/12/2020 06:40:00 AM EDT [place] ([facility]) Name Value Range Interpretation Code Description Data Shelly rce(s) Supporting Document(s) Erythrocyte mean corpuscular volume [Ent itic volume] in Cord blood by Automated count 91.5 FemtoLiter_[SI_Volume_Units] Normal MCV Bld Co Auto [place] ([facility]) Note: Responsible Observer: MCV MCV 100 .0600 (B) Erythrocyte distribution width [Entitic volume] by Automated cou nt 13 percent Normal RDW RBC Auto [place] ([facility]) Note: Responsible Observer: RDW RDW 100 .0900 (B) Manual Differential panel - Blood Manual Diff Added Manual diff Bld [place] ([facility]) Note: Responsible Observer: CBC Manual D ifferential Added 100.1990 (B) Platelet mean volume [Entitic volume] in Blood 9.5 FemtoLite r_[SI_Volume_Units] Normal PMV d [facility] ([facility]) Note: Responsible Observer: MPV MPV 100 .1100 (B) Immature granulocytes [Presence] in Blood by Automated count See No te Normal Imm Granulocytes Bld Ql Auto [facility] ([facility]) Note: [id number] Ob marine 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: IG% IG% 100.1375 (B) Hematocrit [Volume Fraction] of Blood by Automated count 44.4 perce nt Normal Hct VFr d Auto [facility] ([facility]) Note: Responsible Observer: HEMATOCRIT H EMATOCRIT 100.0500 (B) Erythrocyte mean corpuscular hemoglobin concentration [Mass/volume] in Cord blood 33.1 GramsPerDeciLiter_[Mass_Concentration_Units] Normal MCHC BldCo-mCnc [place] ([facility]) Note: Responsible Observer: MCHC MCHC 1 00.0800 (B) Immature granulocytes [#/volume] in Blood by Automated count 0.1 Un it Imm Granulocytes # d Auto [place] ([facility]) Note: Responsible Observer: IG# IG# 100 .1400 (B) Monocytes/100 leukocytes in Blood by Automated count 1.2 percent Below low normal Monocytes/leuk NFr d Auto [place] ([facility]) Note: Responsible Observer: MONO % MONO % 100.1225 (B) Hemoglobin [Moles/volume] in Blood 14.7 GramsPerDeciLiter_[Mass_Concentration_Units] Normal Hgb Bld-sCnc [place] ([facility]) Note: Responsible Observer: HGB HEMOGLOB IN 100.0400 (B) Leukocytes [#/volume] in Blood by Automated count 14.6 ThousandsPerMicroLiter_[Number_Concentration_Units] Above hi gh normal WBC # d Auto [place] ([facility]) Note: Responsible Observer: WBC WHITE BL OOD COUNT 100.0100 (E) Basophils [#/volume] in Blood by Automated count 0.0 Unit Normal Basophils # d Auto [place] ([facility]) Note: Responsible Observer: BASO # BASO# 100.1350 (B) Basophils/100 leukocytes in Blood by Automated count 0.1 percent Below low normal Basophils/leuk NFr Bld Auto [facility] ([facility]) Note: Responsible Observer: BASO % BASO % 100.1325 (B) Eosinophils [#/volume] in Blood by Automated count 0.0 Unit Normal Eosinophil # Bld Auto [facility] ([facility]) Note: Responsible Observer: EOS # EOS# 100.1300 (D) Eosinophils/100 leukocytes in Blood by Automated count 0.0 percent Normal Eosinophil/leuk NFr Bld Auto [facility] ([facility]) Note: Responsible Observer: EOS % EOS % 100.1275 (B) Lymphocytes [#/volume] in Blood by Automated count 0.6 Unit Normal Lymphocytes # Bld Auto [facility] ([facility]) Note: Responsible Observer: LYMPH # LYMP H# 100.1200 (B) Lymphocytes/100 leukocytes in Blood by Automated count 4.2 perce nt Below low normal Lymphocytes/leuk NFr Bld Auto [facility] ([facility]) Note: Responsible Observer: LYMPH % LYMP H % 100.1175 (B) Monocytes [#/volume] in Blood by Automated count 0.2 Unit Normal Monocytes # Bld Auto [facility] ([facility]) Note: Responsible Observer: MONO # MONO# 100.1250 (C) Neutrophils [#/volume] in Blood by Automated count 13.8 Unit Above high normal Neutrophils # Bld Auto [facility] ([facility] ) Note: Responsible Observer: NEUT# NEUT# 100.1150 (B) Neutrophils/100 leukocytes in Blood by Automated count 94.0 perc ent Above high normal Neutrophils/leuk NFr Bld Auto [facility] ([facility]) Note: @PERFORM SLIDE SCAN IF NOT AGREE M AN DIFF@DOCUMENT SLIDE SCAN COMMENTResponsible Observer: NEUT% NEUT% 100.1125 (B) Platelets [#/volume] in Blood by Automated count 235 ThousandsPerMicroLiter_[Number_Concentration_Units] Normal Platelet # Bld Auto [facility] ([facility]) Note: Responsible Observer: PLATELET COU NT PLATELET COUNT 100.1000 (D) Erythrocyte mean corpuscular hemoglobin [Entitic mass] by Automated count 30.3 PicoGram_[SI_Mass_Units] Normal MCH RBC Qn Auto [facility] Y ([facility]) Note: Responsible Observer: MCH MCH 100 .0700 (B) Erythrocytes [#/volume] in Blood by Automated count 4. 85 MillionsPerMicroLiter_[Number_Concentration_Units] Normal RBC # Bld Auto [facility] ([facility]) Note: Responsible Observer: RBC Red Bloo d Count 100.0300 (B) NUCLEATED RED BLOOD CELL# 0 Unit NUCLEATED RED BLOOD CELL# [facility] ([facility]) Note: Responsible Observer: NRBC# NUCLEA SABRINA RBC 100.1362 (A) NUCLEATED RED BLOOD CELL 0 percent NUCLEATED R ED BLOOD CELL [facility] ([facility]) Note: Responsible Observer: NRBC% NRBC% 100.1360 (B) Notes [TIMP] See Note NOTES [facility] ([facility]) Note: @04/12/20 0729: MANUAL DIFF added. RFLXG = DIFF. ID Date Data Source [id number] 04/12/2020 12:34:00 AM [facility] @ [place] DATE was changed from 04/12/20 to 04/11/20@ by SHEEBA. Old specimen was [id number]. Name Value Range Interpretation Code Description Data Shelly rce(s) Supporting Document(s) Troponin I.cardiac [Mass/volume] in Serum or Plasma Less Than 0.015 0.00-0.09 [facility] Less than 0.09 NG/ML Negative0.10 - 0.77 NG/ML High Risk0.78 NG/ML or Greater PositiveThe WHO defined the cutoff (definition for diagnosis of [place])for this method as 0.78 ng/ml. ID Date Data Source [id number] 04/11/2020 10:42:00 PM [facility] @04/11/20 1840: 4hr Lactic Acid added. R FLXG = RFX LACTIC. Name Value Range Interpretation Code Description Data Shelly rce(s) Supporting Document(s) Lactate [Mass/volume] in Serum or Plasma 1.7 mmol/L 0.5-2.2 [facility] A HIGH RESULT ON THIS 4HR LACTIC ACID WI LL NOT REFLEXANOTHER - YOU MUST ORDER ONE IF YOU WANT IT REPEATED ID Date Data Source [id number] 04/11/2020 10:10:00 PM EDT [place] ([facility]) Name Value Range Interpretation Code Description Data Shelly rce(s) Supporting Document(s) Reported Physicians See Note Reported Israel ramey [place] ([facility]) Note: Reported Physicians:Ordering: Kian ArguelloAttending: Jeremiah, VikramAdmitting: Jeremiah, VikramCopy To: Esha Talamantes ID Date Data Source [id number] 04/11/2020 10:10:00 PM EDT [place] ([facility]) Name Value Range Interpretation Code Description Data Shelly rce(s) Supporting Document(s) Lactate [Mass/volume] in Serum or Plasma 1.7 MilliMolesPerLiter_[Substance_Concentration_Units] Normal Lactate [place]) Note: A HIGH RESULT ON THIS 4HR LACTIC A PIPO WILL NOT REFLEXANOTHER - YOU MUST ORDER ONE IF YOU WANT IT REPEATEDResponsible Observer: 4HR LACTIC RPT 4HR LACTIC ACID 400.2840 (G) Notes [TIMP] See Note NOTES [facility] ([facility]) Note: @04/11/20 1840: 4hr Lactic Acid ad ded. RFLXG = RFX LACTIC. ID Date Data Source [id number] 04/11/2020 10:10:00 PM EDT [place] ([facility]) Name Value Range Interpretation Code Description Data Shelly rce(s) Supporting Document(s) Reported Physicians See Note Reported Teri karoline [place] ([facility]) Note: Reported Physicians:Ordering: Marly Ferrarattending: Jeremiah, VikramAdmitting: Jeremiah, VikramCopy To: Jeremiah, VikramCopy To: Esha Talamantes ID Date Data Source [id number] 04/11/2020 10:10:00 PM EDT [place] ([facility]) Name Value Range Interpretation Code Description Data Shelly rce(s) Supporting Document(s) Troponin I.cardiac [Mass/volume] in Serum or Plasma Less Than 0.015 Normal Troponin I [place]) Note: Less than 0.09 NG/ML Negative 0.10 - 0.77 NG/ML High Risk0.78 NG/ML or Greater PositiveThe WHO defined the cutoff (definition for diagnosis of [place])for this method as 0.78 ng/ml.Responsible Observer: Troponin I Troponin I 600.1101 (G) Notes [TIMP] See Note NOTES [facility] ([facility]) Note: @ [place] DATE was changed from 04/12 to 04/11/20@ by SHEEBA. Old specimen was [id number]. ID Date Data Source [id number] 04/11/2020 10:05:00 PM EDT [facility] VAUGHN COVID-19 IS AN ISOTHERMAL NA A TECHNOLOGYNORMAL VALUE IS "SARS-COV-2 COVID 19 NOT DETECTED"False negative results may occur if a specimen is improperlycollected,transported or handled.False negative results may also occur if amplicationinhibitors are present in the specimen or if inadequatelevels of viruses are present in the specimen.As with any molecular test, if the virus mutates in [facility], Covid-19 may not be detected or [...] rce(s) Supporting Document(s) ID Date Data Source [id number] 04/11/2020 09:30:00 PM EDT [place] ([facility]) Name Value Range Interpretation Code Description Data Shelly rce(s) Supporting Document(s) Reported Physicians See Note Reported Physici ans [place] ([facility]) Note: Reported Physicians:Ordering: Kian ArguelloAttending: John De Sozuaitting: Pete De Souza To: Esha Talamantes ID Date Data Source [id number] 04/11/2020 09:30:00 PM EDT [place] ([facility]) Name Value Range Interpretation Code Description Data Shelly rce(s) Supporting Document(s) VAUGHN COVID-19 SCHOOL See Note VAUGHN COVID- 19 SCHOOL [place] ([facility]) Note: VAUGHN COVID-19 IS AN ISOTHER MAL KRISTEN TECHNOLOGYNORMAL VALUE IS "SARS-COV-2 COVID 19 NOT DETECTED"False negative results may occur if a specimen is improperlycollected,transported or handled.False negative results may also occur if amplicationinhibitors are present in the specimen or if inadequatelevels of viruses are present in the specimen.As with any molecular test, if the virus mutates in [facility], Covid-19 may not be detected or may bedetected less predictably.ID NOW COVID-19 is intended for testing a swab directlywithout elution in viral transport media as dilution willresult in decreased detection of low positive samples thatare near the limit of detection of the test.SWAB SAMPLES ELUTED IN VTM ARE NOT APPROPRIATE FOR USE INTHIS TEST.NOSNo Organisms [id number] Organisms Detected ID Date Data Source [id number] 04/11/2020 09:17:00 PM EDT [facility] Name: TOLU RATLIFF : 1955 Age: 64 MR#: [id number] Admit Date: 04/11/20 Provider: Leonardo Alonso Room [...] 30 years old and [facility] in [place]. He reported being replaced before on anticoagulation [...] drug use. Family History: Father due to [place] at age 7979 year old, he had [...] mg PO DAILY 04/11/20 04/11/20 04/11/20 History uhpeggkvzimx-palgoync-[id number] 1 tab PO DAILY 04/11/20 04/11/20 04/11/20 [...] % (Auto) 68.7, Lymph % (Auto) 20.9, [place] % (Auto) 8.4, Eos % (Auto) 1.2, [...] Appearance Clear, Urine pH 5.0, Ur Specific [place] 1.010,Urine Protein Negative, Urine Ketones Negative, Urine [...] The patient needs to follow up with [employer] as regard to his DM that might [...] rce(s) Supporting Document(s) ID Date Data Source [id number] 04/11/2020 08:56:00 PM EDT [facility] [address] [place] [address] [phone] NAME SEX PT STATUS ACCOUNT NUMBER TOLU RATLIFF [facility] ER [id number] ORDERING PHYSICIAN LOCATION MEDICAL RECORD NO. Scott Mei MD ER [id number] ATTENDING PHYSICIAN DATE OF DATE OF EXAM/TIME [...] Trans Dt/Tm: Trans by: DT Prt Dt/Tm: 8575-8417: Total DLP = 407.00 mGy-cm 2716-3386: Total Radiation Dose = 2.4013 mSv Lifetime Dose: 4.5186 mSv Name Value Range Interpretation Code Description Data Shelly rce(s) Supporting Document(s) ID Date Data Source [id number] 04/11/2020 08:08:00 PM EDT [facility] Reason for ordering culture: Abnormal fi ndings UAMethod of Collection:: Voided Name Value Range Interpretation Code Description Data Shelly rce(s) Supporting Document(s) Color of Urine [facility] Appearance of Urine CLEAR [facility] pH of Urine by Test strip 5.0 5-8 [facility] Specific gravity of Urine by Refractometry 1.010 1.005-1.030 [facility] Leukocyte esterase [Presence] in Urine by Test strip NEGAT ELVIA [facility] Nitrite [Presence] in Urine by Test strip NEGATIVE [facility] Protein [Presence] in Urine by Test strip NEGATIVE [facility] Glucose [Mass/volume] in Urine by Automated test strip NEGATIVE NEG ATIVE [facility] Ketones [Presence] in Urine by Test strip NEGATIVE [facility] Urobilinogen [Presence] in Urine 0.2-1 EU/dl [facility] Bilirubin.total [Presence] in Urine by Automated test strip NEGATIVE [facility] Erythrocytes [#/volume] in Urine by Test strip NEGATIVE NEGATIVE [facility] URINE MICROSCOPIC? (CIF) NO [facility] ID Date Data Source [id number] 04/11/2020 07:59:00 PM EDT [place] ([facility]) Name Value Range Interpretation Code Description Data Shelly rce(s) Supporting Document(s) Reported Physicians See Note Reported Physici ans [place] ([facility]) Note: Reported Physicians:Ordering: Ember Arguelloending: Talita Cannon To: Esha Talamantes ID Date Data Source [id number] 04/11/2020 07:59:00 PM EDT [place] ([facility]) Name Value Range Interpretation Code Description Data Shelly rce(s) Supporting Document(s) Urobilinogen [Presence] in Urine See Note Uro bilinogen Ur Ql [place] ([facility]) Note: 0.2 EU/dl0.2 [id number] E U/dlResponsible Observer: UROBILINOGEN UROBILINOGEN 300.4500 (C) Erythrocytes [#/volume] in Urine by Test strip NEGATIVE RBC # Ur Strip [place] ([facility]) Note: Responsible Observer: BLOOD BLOOD 300.4652 (C) Protein [Presence] in Urine by Test strip See Note Prot Ur Ql Strip [facility] ([facility]) Note: [id number] EResponsible Observer: PROTEIN PROTEIN 300.3750 (C) Ketones [Presence] in Urine by Test strip See Note Ketones Ur Ql Strip [facility] ([facility]) Note: [id number] EResponsible Observer: KETONE KETONE 300.3900 (C) Bilirubin.total [Presence] in Urine by Automated test strip See Not e Bilirub Ur Ql Strip.auto [facility] ([facility]) Note: [id number] EResponsible Observer: BILIRUBIN BILIRUBIN 300.4550 (C) Glucose [Mass/volume] in Urine by Automated test strip NEGATIVE Glucose Ur Strip.auto-mCnc [place] ([facility]) Note: Responsible Observer: GLUCOSE GLUC OSE 300.3850 (C) Appearance of Urine See Note [facility] Note: CLEARCLEARLCLEARResponsible Observ er: APPEARANCE APPEARANCE 300.3400 (A) Color of Urine See Note Color Ur [facility] ([facility]) Note: YELLOWYELLOWLYELLOWResponsible Obs erver: COLOR COLOR 300.3330 (A) Leukocyte esterase [Presence] in Urine by Test strip See Note Leukocyte esterase Ur Ql Strip [place] ([facility]) Note: [id number] EResponsible Observer: LEUKOCYTES LEUKOCYTES 300.3576 (C) Nitrite [Presence] in Urine by Test strip See Note Nitrite Ur Ql Strip [facility] ([facility]) Note: [id number] EResponsible Observer: NITRITE NITRITE 300.3652 (B) pH of Urine by Test strip 5.0 pH Ur Stri p [place] ([facility]) Note: Responsible Observer: PH PH 300.3 450 (C) Specific gravity of Urine by Refractometry 1.010 Sp Gr Ur Refractometry [place] ([facility]) Note: Responsible Observer: SP GRAVITY U RINE SPECIFIC GRAVITY-MAN 300.3475 (C) URINE MICROSCOPIC? (CIF) NO URINE MICRO SCOPIC? (CIF) [facility] ([facility]) Note: Responsible Observer: UA URINE KEENAN ROSCOPIC PENDING 300.4665 (D) Notes [TIMP] See Note NOTES [facility] ([facility]) Note: Reason for ordering culture: Abnor mal findings UAMethod of Collection:: Voided ID Date Data Source [id number] 04/11/2020 07:16:00 PM EDT [facility] [address] [place] [address] [phone] NAME SEX PT STATUS ACCOUNT NUMBER Tolu Ratliff PRE ER [id number] ORDERING PHYSICIAN LOCATION MEDICAL RECORD NO. Kian Cannon MD ER [id number] ATTENDING PHYSICIAN DATE OF DATE OF EXAM/TIME [...] Trans Dt/Tm: Trans by: DT Prt Dt/Tm: 6296-4784: Total DLP = 683.00 mGy-cm 2059-9497: Total Radiation Dose = 2.1173 mSv Lifetime Dose: 2.1173 mSv Name Value Range Interpretation Code Description Data Shelly rce(s) Supporting Document(s) ID Date Data Source [id number] 04/11/2020 06:34:00 PM EDT [facility] [address] [place] [address] [phone] NAME SEX PT STATUS ACCOUNT NUMBER Tolu Ratliff [facility] ER [id number] ORDERING PHYSICIAN LOCATION MEDICAL RECORD NO. Kian Cannon MD ER [id number] ATTENDING PHYSICIAN DATE OF DATE OF EXAM/TIME [...] Trans Dt/Tm: Trans by: DT Prt Dt/Tm: 1518-5543: Total DLP = 0.00 mGy-cm Fluoroscopy Time (in secs): Name Value Range Interpretation Code Description Data Shelly rce(s) Supporting Document(s) ID Date Data Source [id number] 04/11/2020 06:40:00 PM [facility] Special Instructions: Lab may order repe at test if initial test elevatedPhysician If elevated, reflex second test in 4-6 hrs Name Value Range Interpretation Code Description Data Shelly rce(s) Supporting Document(s) Lactic w Rfx (if elevated) 2.1 mmol/L 0.5-2.[address] [facility] Called to RYAN @ 1835 by Carlos Child. Results readback. ID Date Data Source [id number] 04/16/2020 05:57:00 PM [facility] Special Instructions: Lab may order repe at test if initial test elevatedPhysician If elevated, reflex second test in 4-6 hrs Name Value Range Interpretation Code Description Data Shelly rce(s) Supporting Document(s) Bacteria identified in Blood by Culture [facility] NO GROWTH AFTER 5 DAYS ID Date Data Source [id number] 04/11/2020 11:28:00 PM [facility] Special Instructions: from the last lab sample, otherwise, from the next Name Value Range Interpretation Code Description Data Shelly rce(s) Supporting Document(s) Erythrocyte sedimentation rate by Westergren method 13 mm/hr 0-20 N [facility] @[facility] manual test result: 13@by Tori Schultz at 04/11/20 2328. ID Date Data Source [id number] 04/11/2020 06:00:00 PM [facility] Name Value Range Interpretation Code Description Data Shelly rce(s) Supporting Document(s) Leukocytes [#/volume] in Blood by Automated count 10.4 10*3/uL 4.45-1 0.71 N [facility] Erythrocytes [#/volume] in Blood by Automated count 5.03 10*6/uL 4.3- 6.1 N [facility] Hemoglobin [Moles/volume] in Blood 15.5 g/dL 13-18 N [facility] Hematocrit [Volume Fraction] of Blood by Automated count 46.2 % 4 2-52 N [facility] Erythrocyte mean corpuscular volume [Ent itic volume] in Cord blood by Automated count 91.8 fL 80-96 N [facility] ital Erythrocyte mean corpuscular hemoglobin [Entitic mass] by Automated count 30.8 pg 27-31 N [facility] l Erythrocyte mean corpuscular hemoglobin concentration [Mass/volume] in Cord blood 33.5 g/dL 33-37 N [facility] Erythrocyte distribution width [Entitic volume] by Automated count 12 % 11-15 N [facility] Platelets [#/volume] in Blood by Automated count 243 10*3/uL 130-472 N [facility] Platelet mean volume [Entitic volume] in Blood 9.3 fL 9.1-13.1 N [facility] Neutrophils/100 leukocytes in Blood by Automated count 68.7 % 41- 77 N [facility] Neutrophils [#/volume] in Blood by Automated count 7.2 U 1.7-7.6 N [facility] Lymphocytes/100 leukocytes in Blood by Automated count 20.9 % 14- 46 N [facility] Lymphocytes [#/volume] in Blood by Automated count 2.2 U 0.6-4.6 N [facility] Monocytes/100 leukocytes in Blood by Automated count 8.4 % 4-12 N [facility] Monocytes [#/volume] in Blood by Automated count 0.9 U 0.2-1.2 N [facility] Eosinophils/100 leukocytes in Blood by Automated count 1.2 % 0-7 N [facility] Eosinophils [#/volume] in Blood by Automated count 0.1 U 0.0-0.5 N [facility] Basophils/100 leukocytes in Blood by Automated count 0.5 % 0.4-1 .3 N [facility] Basophils [#/volume] in Blood by Automated count 0.1 U 0.0-0.2 N [facility] NUCLEATED RED BLOOD CELL 0 % [facility] NUCLEATED RED BLOOD CELL# 0 U [facility] Immature granulocytes [Presence] in Blood by Automated count 0-2 N [facility] Immature granulocytes [#/volume] in Blood by Automated count 0.0 U 0-0.1 N [facility] Manual Differential panel - Blood NO [facility] ID Date Data Source [id number] 04/11/2020 06:25:00 PM EDT [facility] Name Value Range Interpretation Code Description Data Shelly rce(s) Supporting Document(s) Urea nitrogen [Mass/volume] in Serum or Plasma 17 mg/dL 9-23 N [facility] Sodium [Moles/volume] in Serum or Plasma 138 mmol/L 132-146 N [facility] Potassium [Moles/volume] in Serum or Plasma 3.9 mmol/L 3.5-5.5 [facility] Chloride [Moles/volume] in Serum or Plasma 103 mmol/L 99-109 [facility] Carbon dioxide, total [Moles/volume] in Serum or Plasma 26 mmol/L 20 -31 N [facility] Anion gap in Serum or Plasma 13 mmol/L 8-16 [facility] Glucose [Mass/volume] in Serum or Plasma 150 mg/dL 74-106 Above high normal [facility] Creatinine 1.0 mg/dL 0.5-1.1 [facility] Glomerular filtration rate/1.73 sq M.pre dicted [Volume Rate/Area] in Serum or Plasma Greater Than 60 ABOVE 60 [facility] Alanine aminotransferase [Enzymatic acti vity/volume] in Serum or Plasma by With P-5'-P 33 U/L 10-49 N [facility] ital Aspartate aminotransferase [Enzymatic ac tivity/volume] in Serum or Plasma by With P-5'-P 15 U/L 0-33 N [facility] pital Alkaline phosphatase [Enzymatic activity/volume] in Serum or Plasma 60 U/L 45-129 N [facility] Calcium [Mass/volume] in Serum or Plasma 9.4 mg/dL 8.5-10.1 [facility] Bilirubin.total [Mass/volume] in Serum or Plasma 0.8 mg/dL 0.3-1.2 N [facility] Albumin [Mass/volume] in Serum or Plasma by Bromocresol purple (BCP) dye binding method 3.8 g/dL 3.2-4.8 N [facility] ital Protein [Mass/volume] in Serum or Plasma 8.0 g/dL 5.7-8.2 N [facility] ID Date Data Source [id number] 04/11/2020 06:25:00 PM EDT [facility] Name Value Range Interpretation Code Description Data Shelly rce(s) Supporting Document(s) Troponin I.cardiac [Mass/volume] in Serum or Plasma Less Than 0.015 0.00-0.09 N [facility] Less than 0.09 NG/ML Negative0.10 - 0.77 NG/ML High Risk0.78 NG/ML or Greater PositiveThe WHO defined the cutoff (definition for diagnosis of [place])for this method as 0.78 ng/ml. ID Date Data Source [id number] 04/11/2020 06:24:00 PM EDT [facility] Name Value Range Interpretation Code Description Data Shelly rce(s) Supporting Document(s) Magnesium [Mass/volume] in Serum or Plasma 2.3 mg/dL 1.3-2.7 N [facility] ID Date Data Source [id number] 04/11/2020 06:23:00 PM EDT [facility] Name Value Range Interpretation Code Description Data Shelly rce(s) Supporting Document(s) Creatine kinase [Enzymatic activity/volume] in Serum or Plasma 158 U/L 33-211 N [facility] Creatine kinase.MB [Enzymatic activity/volume] in Serum or P lasma 3.8 ng/mL 0.0-5.0 N [facility] Chemistry studies (set) 2.4 % [facility] ID Date Data Source [id number] 04/11/2020 05:55:00 PM [facility] ([facility]) Name Value Range Interpretation Code Description Data Shelly rce(s) Supporting Document(s) Reported Physicians See Note Reported Physici karoline [place] ([facility]) Note: Reported Physicians:Ordering: Kian ArguelloAttending: John De Souzaitting: Pete De Souza To: Esha Talamantes ID Date Data Source [id number] 04/11/2020 05:55:00 PM EDT [place] ([facility]) Name Value Range Interpretation Code Description Data Shelly rce(s) Supporting Document(s) Bacteria identified in Blood by Culture See Note Bacteria Bld Cult [place] ([facility]) Note: NG5DNo growth.[id number] GROWTH AFTE R 5 DAYS ID Date Data Source [id number] 04/11/2020 05:55:00 PM EDT [place] ([facility]) Name Value Range Interpretation Code Description Data Shelly rce(s) Supporting Document(s) Bacteria identified in Blood by Culture See Note Bacteria Bld Cult [place] ([facility]) Note: NG5DNo growth.[id number] GROWTH AFTE R 5 DAYS ID Date Data Source [id number] 04/11/2020 05:55:00 PM EDT [place] ([facility]) Name Value Range Interpretation Code Description Data Shelly rce(s) Supporting Document(s) Lactic w Rfx (if elevated) 2.1 MilliMolesPerLiter_[Substance_Concentration_Units] Normal Lactic w Rfx (if elevated) [place] ([facility]) Note: Called to RYAN @ 5365 by Tori Kenny. Results readback.Responsible Observer: Lactic Acid Lactic Acid 400.2831 (G) Notes [TIMP] See Note NOTES [place] ([facility]) Note: Special Instructions: Lab may orde r repeat test if initial test elevatedPhysician If elevated, reflex second test in 4-6 hrs ID Date Data Source [id number] 04/11/2020 05:55:00 PM EDT [place] ([facility]) Name Value Range Interpretation Code Description Data Shelly rce(s) Supporting Document(s) Reported Physicians See Note Reported Physici ans [place] ([facility]) Note: Reported Physicians:Ordering: Kian ArguelloAttending: Talita Cannon To: Esha Talamantes ID Date Data Source [id number] 04/11/2020 05:55:00 PM EDT [place] ([facility]) Name Value Range Interpretation Code Description Data Shelly rce(s) Supporting Document(s) Alanine aminotransferase [Enzymatic acti vity/volume] in Serum or Plasma by With P-5'-P 33 enzyme_unit_per_liter Normal ALT SerPl w P-5' -P-[facility] ([facility]) Note: Responsible Observer: SGPT/ALT SGP T/ALT 400.1750 (G) Calcium [Mass/volume] in Serum or Plasma 9.4 MilliGramsPerDeciLiter_[Mass_Concentration_Units] Normal Calcium [facility] ([facility]) Note: Responsible Observer: Calcium Calc ium 400.2500 (G) Bilirubin.total [Mass/volume] in Serum or Plasma 0.8 MilliGramsPerDeciLiter_[Mass_Concentration_Units] Normal Bilirub [facility] ([facility]) Note: Responsible Observer: T ABDIRAHMAN Total Bilirubin 400.2600 (G) Carbon dioxide, total [Moles/volume] in Serum or Plasm a 26 MilliMolesPerLiter_[Substance_Concentration_Units] Normal CO2 [facility] ([facility]) Note: Responsible Observer: CO2 Carbon D ioxide 400.1400 (G) Chloride [Moles/volume] in Serum or Plasma 103 MilliMolesPerLiter_[Substance_Concentration_Units] Normal Chloride [facility] ([facility]) Note: Responsible Observer: Chloride Chl oride 400.1250 (G) Glucose [Mass/volume] in Serum or Plasma 150 MilliGramsPerDeciLiter_[Mass_Concentration_Units] Above high normal Glucose [facility] ([facility]) Note: Responsible Observer: Glucose Gluc ose 400.1500 (G) Potassium [Moles/volume] in Serum or Plasma 3.9 MilliMolesPerLiter_[Substance_Concentration_Units] Normal Potassium [facility] ([facility]) Note: Responsible Observer: K Potassium 400.1210 (G) Protein [Mass/volume] in Serum or Plasma 8.0 GramsPerDeciLiter_[Mass_Concentration_Units] Normal Pro t [facility] ([facility]) Note: Responsible Observer: TP Total Pro tein 400.2800 (G) Sodium [Moles/volume] in Serum or Plasma 138 MilliMolesPerLiter_[Substance_Concentration_Units] Normal Sodium [facility] ([facility]) Note: Responsible Observer: Sodium Sodiu m 400.1100 (G) Aspartate aminotransferase [Enzymatic ac tivity/volume] in Serum or Plasma by With P-5'-P 15 enzyme_unit_per_liter Normal AST SerPl w P-5' -P-[facility] ([facility]) Note: Responsible Observer: SGOT / AST S GOT / AST 400.1900 (G) Urea nitrogen [Mass/volume] in Serum or Plasma 17 MilliGramsPerDeciLiter_[Mass_Concentration_Units] Normal BUN [facility] ([facility]) Note: Responsible Observer: BUN Blood Ur ea Nitrogen 400.1000 (G) Anion gap in Serum or Plasma 13 MilliMolesPerLiter_[Substance_Concentration_Units] Normal Anion Gap [facility] ([facility]) Note: Responsible Observer: ANION GAP AN ION GAP 400.1402 (E) Albumin [Mass/volume] in Serum or Plasma by Bromocresol purple (BCP) dye binding method 3.8 GramsPerDeciLiter_[Mass_Concentration_Units] Normal Albumin [facility] ([facility]) Note: Responsible Observer: Albumin [place] 400.2700 (G) Alkaline phosphatase [Enzymatic activity/volume] in Se rum or Plasma 60 enzyme_unit_per_liter Normal ALP [facility] ( [facility]) Note: Responsible Observer: ALP Alkaline Phosphatase 400.2000 (G) Glomerular filtration rate/1.73 sq M.pre dicted [Volume Rate/Area] in Serum or Plasma Greater Than 60 G[facility]BSA.[facility] [place] ([facility]) Note: Responsible Observer: GFR Glomerul ar Filt Rate Calc 400.1605 (D) Creatinine [Moles/volume] in Vitreous fluid 1.0 MilliGramsPerDeciLiter_[Mass_Concentration_Units] Normal Creatinine [place] ([facility]) Note: Responsible Observer: Creatinine C reatinine 400.1600 (G) ID Date Data Source [id number] 04/11/2020 05:55:00 PM EDT [facility] ([facility]) Name Value Range Interpretation Code Description Data Shelly rce(s) Supporting Document(s) Erythrocyte mean corpuscular volume [Ent itic volume] in Cord blood by Automated count 91.8 FemtoLiter_[SI_Volume_Units] Normal MCV Bld Co Auto [facility] ([facility]) Note: Responsible Observer: MCV MCV 100 .0600 (B) Erythrocyte distribution width [Entitic volume] by Automated cou nt 12 percent Normal RDW RBC Auto [place] ([facility]) Note: Responsible Observer: RDW RDW 100 .0900 (B) Manual Differential panel - Blood NO Ma nual diff Bld [place] ([facility]) Note: Responsible Observer: CBC Manual D ifferential Added 100.1990 (B) Platelet mean volume [Entitic volume] in Blood 9.3 FemtoLite r_[SI_Volume_Units] Normal PMV Bld [facility] ([facility]) Note: Responsible Observer: MPV MPV 100 .1100 (B) Immature granulocytes [Presence] in Blood by Automated count See No te Normal Imm Granulocytes Bld Ql Auto [place] ([facility]) Note: 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: IG% IG% 100.1375 (B) Hematocrit [Volume Fraction] of Blood by Automated count 46.2 perce nt Normal Hct VFr Bld Auto [place] ([facility]) Note: Responsible Observer: HEMATOCRIT H EMATOCRIT 100.0500 (B) Erythrocyte mean corpuscular hemoglobin concentration [Mass/volume] in Cord blood 33.5 GramsPerDeciLiter_[Mass_Concentration_Units] Normal MCHC BldCo-mCnc [place] ([facility]) Note: Responsible Observer: MCHC MCHC 1 00.0800 (B) Immature granulocytes [#/volume] in Blood by Automated count 0.0 Un it Imm Granulocytes # Bld Auto [facility] ([facility]) Note: Responsible Observer: IG# IG# 100 .1400 (B) Monocytes/100 leukocytes in Blood by Automated count 8.4 percent Normal Monocytes/leuk NFr Bld Auto [facility] ([facility]) Note: Responsible Observer: MONO % MONO % 100.1225 (B) Hemoglobin [Moles/volume] in Blood 15.5 GramsPerDeciLiter_[Mass_Concentration_Units] Normal Hgb Bld-sCnc [facility] ([facility]) Note: Responsible Observer: HGB HEMOGLOB IN 100.0400 (B) Leukocytes [#/volume] in Blood by Automated count 10.4 ThousandsPerMicroLiter_[Number_Concentration_Units] Normal WBC # Bld Auto [facility] ([facility]) Note: Responsible Observer: WBC WHITE BL OOD COUNT 100.0100 (E) Basophils [#/volume] in Blood by Automated count 0.1 Unit Normal Basophils # Bld Auto [facility] ([facility]) Note: Responsible Observer: BASO # BASO# 100.1350 (B) Basophils/100 leukocytes in Blood by Automated count 0.5 percent Normal Basophils/leuk NFr Bld Auto [facility] ([facility]) Note: Responsible Observer: BASO % BASO % 100.1325 (B) Eosinophils [#/volume] in Blood by Automated count 0.1 Unit Normal Eosinophil # Bld Auto [facility] ([facility]) Note: Responsible Observer: EOS # EOS# 100.1300 (D) Eosinophils/100 leukocytes in Blood by Automated count 1.2 percent Normal Eosinophil/leuk NFr Bld Auto [facility] ([facility]) Note: Responsible Observer: EOS % EOS % 100.1275 (B) Lymphocytes [#/volume] in Blood by Automated count 2.2 Unit Normal Lymphocytes # Bld Auto [facility] ([facility]) Note: Responsible Observer: LYMPH # LYMP H# 100.1200 (B) Lymphocytes/100 leukocytes in Blood by Automated count 20.9 percent Normal Lymphocytes/leuk NFr Bld Auto [facility] ([facility]) Note: Responsible Observer: LYMPH % LYMP H % 100.1175 (B) Monocytes [#/volume] in Blood by Automated count 0.9 Unit Normal Monocytes # Bld Auto [facility] ([facility]) Note: Responsible Observer: MONO # MONO# 100.1250 (C) Neutrophils [#/volume] in Blood by Automated count 7.2 Unit Normal Neutrophils # Bld Auto [facility] ([facility]) Note: Responsible Observer: NEUT# NEUT# 100.1150 (B) Neutrophils/100 leukocytes in Blood by Automated count 68.7 percent Normal Neutrophils/leuk NFr Bld Auto [facility] ([facility]) Note: Responsible Observer: NEUT% NEUT% 100.1125 (B) Platelets [#/volume] in Blood by Automated count 243 ThousandsPerMicroLiter_[Number_Concentration_Units] Normal Platelet # Bld Auto [facility] ([facility]) Note: Responsible Observer: PLATELET COU NT PLATELET COUNT 100.1000 (D) Erythrocyte mean corpuscular hemoglobin [Entitic mass] by Automated count 30.8 PicoGram_[SI_Mass_Units] Normal MCH RBC Qn Auto [place] ([facility]) Note: Responsible Observer: MCH MCH 100 .0700 (B) Erythrocytes [#/volume] in Blood by Automated count 5. 03 MillionsPerMicroLiter_[Number_Concentration_Units] Normal RBC # Bld Auto [facility] ([facility]) Note: Responsible Observer: RBC Red Bloo d Count 100.0300 (B) NUCLEATED RED BLOOD CELL# 0 Unit NUCLEATED RED BLOOD CELL# [facility] ([facility]) Note: Responsible Observer: NRBC# NUCLEA SABRINA RBC 100.1362 (A) NUCLEATED RED BLOOD CELL 0 percent NUCLEATED R ED BLOOD CELL [place] ([facility]) Note: Responsible Observer: NRBC% NRBC% 100.1360 (B) ID Date Data Source [id number] 04/11/2020 05:55:00 PM EDT [place] ([facility]) Name Value Range Interpretation Code Description Data Shelly rce(s) Supporting Document(s) Reported Physicians See Note Reported Physici ans [place] ([facility]) Note: Reported Physicians:Ordering: Kian ArguelloAttending: Talita Cannon To: Esha Talamantes ID Date Data Source [id number] 04/11/2020 05:55:00 PM EDT [place] ([facility]) Name Value Range Interpretation Code Description Data Shelly rce(s) Supporting Document(s) Magnesium [Mass/volume] in Serum or Plasma 2.3 MilliGramsPerDeciLiter_[Mass_Concentration_Units] Normal Magnesium SerPl-mCnc [place] ([facility]) Note: Responsible Observer: Magnesium Ma gnesium 400.3300 (G) ID Date Data Source [id number] 04/11/2020 05:55:00 PM EDT [place] ([facility]) Name Value Range Interpretation Code Description Data Shelly rce(s) Supporting Document(s) Reported Physicians See Note Reported Physici ans [place] ([facility]) Note: Reported Physicians:Ordering: Marly Ferrarattending: John De Souzaitting: Pete De Souza To: Pete De Souza To: Esha Talamantes ID Date Data Source [id number] 04/11/2020 05:55:00 PM EDT [place] ([facility]) Name Value Range Interpretation Code Description Data Shelly rce(s) Supporting Document(s) Erythrocyte sedimentation rate by Westergren method 13 Normal ESR Bld Qn [facility] ([facility]) Note: @Reenter manual test result: 13@by Tori Child at 04/11/20 2328.Responsible Observer: SED RATE SED RATE 100.6400 (B) Notes [TIMP] See Note NOTES [place] ([facility]) Note: Special Instructions: from the las t lab sample, otherwise, from the next ID Date Data Source [id number] 04/11/2020 05:55:00 PM EDT [place] ([facility]) Name Value Range Interpretation Code Description Data Shelly rce(s) Supporting Document(s) Reported Physicians See Note Reported [facility] ([facility]) Note: Reported Physicians:Ordering: Kian ArguelloAttending: Talita Cannon To: Esha Talamantes ID Date Data Source [id number] 04/11/2020 05:55:00 PM EDT [place] ([facility]) Name Value Range Interpretation Code Description Data Shelly rce(s) Supporting Document(s) Chemistry studies (set) 2.4 percent Chemistry s [facility] Note: Responsible Observer: CK RELATIVE % CK RELATIVE % 600.0055 (A) Creatine kinase [Enzymatic activity/volume] in Serum o r Plasma 158 enzyme_unit_per_liter Normal CK [facility]) Note: Responsible Observer: CK Creatine Kinase 400.9115 (G) Creatine kinase.MB [Enzymatic activity/volume] in Seru m or Plasma 3.8 NanoGramsPerMilliLiter_[Mass_Concentration_Units] Normal CK MB [facility]) Note: Responsible Observer: CKMB Creatin e Kinase MB 600.0050 (G) ID Date Data Source [id number] 04/11/2020 05:55:00 PM [facility] ([facility]) Name Value Range Interpretation Code Description Data Shelly rce(s) Supporting Document(s) Reported Physicians See Note Reported Physici [facility]) Note: Reported Physicians:Ordering: Ember Arguelloending: Talita Cannon To: Esha Talamantes ID Date Data Source [id number] 04/11/2020 05:55:00 PM EDT [place] ([facility]) Name Value Range Interpretation Code Description Data Shelly rce(s) Supporting Document(s) Troponin I.cardiac [Mass/volume] in Serum or Plasma Less Than 0.015 Normal Troponin I [place]) Note: Less than 0.09 NG/ML Negative 0.10 - 0.77 NG/ML High Risk0.78 NG/ML or Greater PositiveThe WHO defined the cutoff (definition for diagnosis of [place])for this method as 0.78 ng/ml.Responsible Observer: Troponin I Troponin I 600.1101 (G) ID Date Data Source [id number] 04/11/2020 05:40:00 PM EDT [facility] ED Physician Documentation NAME: TOLU RATLIFF : 1955 AGE: 64 MR#: [id number] SERVICE DATE: 04/11/[address]: Kian Cannon MD PRIMARY CARE DR: Vinita,Esha Aznar M.D. ROOM#: 295 HPI (Adult, General) <Kian Cannon MD - Last Filed: 04/11/20 18:47> General Chief Complaint: Chest pain Stated Complaint: CHEST HIP PAIN Resident [facility], travel outisde home, exposure to hot [...] % (Auto) 68.7, Lymph % (Auto) 20.9, [place] % (Auto) 8.4, Eos % (Auto) 1.2, [...] Appearance Clear, Urine pH 5.0, Ur Specific [place] 1.010,Urine Protein Negative, Urine Ketones Negative, Urine [...] fixation surgery. No definite acute abnormality. <Scott Mie MD - Last Filed: 04/11/20 21:10> Lab Data Labs: 04/11/20 17:55 04/11/20 17:55 Laboratory Results Last 24 hours 04/11/20 17:55: Magnesium 2.3 04/11/20 17:55: WBC 10.4, RBC 5.03, Hgb 15.5, Hct 46.2, MCV 91.8, MCH 30.8, MCHC 33.5, RDW 12, Plt Count 243, MPV 9.3, Immature Gran % (Auto) 0.3, Neut % (Auto) 68.7, Lymph % (Auto) 20.9, [place] % (Auto) 8.4, Eos % (Auto) 1.2, [...] Appearance Clear, Urine pH 5.0, Ur Specific [place] 1.010,Urine Protein Negative, Urine Ketones Negative, Urine [...] rce(s) Supporting Document(s) ID Date Data Source [id number] 04/11/2020 12:00:00 AM EDT [facility] Name Value Range Interpretation Code Description Data Shelly rce(s) Supporting Document(s) SARS-CoV2 Rapid PCR [facility] This lab was ordered by [facility] pitwv - ER and reported by [facility]. ID Date Data Source [id number] 08/12/2019 07:48:00 AM EST ELIZABETH ([facility]) Name Value Range Interpretation Code Description Data Shelly rce(s) Supporting Document(s) Reported Physicians See Note Reported Physici ans [place] ([facility]) Note: Reported Physicians:Ordering: Beard e, Esha AAttending: VINITA, JOCELYNConsulting: VINITA, JOCELYNCopy To: Vinita Esha ID Date Data Source [id number] 08/12/2019 07:48:00 AM EST ELIZABETH ([facility]) Name Value Range Interpretation Code Description Data Shelly rce(s) Supporting Document(s) CPK 102 U/L CPK ELIZABETH ([facility]) Note: Responsible Observer: () ID Date Data Source [id number] 08/12/2019 07:48:00 AM EST ELIZABETH ([facility]) Name Value Range Interpretation Code Description Data Shelly rce(s) Supporting Document(s) Reported Physicians See Note Reported Physici ans [place] ([facility]) Note: Reported Physicians:Ordering: Beard e, Esha AAttending: VINITA, JOCELYNConsulting: VINITA, JOCELYNCopy To: Vinita, Esha ID Date Data Source [id number] 08/12/2019 07:48:00 AM EST [facility]IZABETH ([facility]) Name Value Range Interpretation Code Description Data Shelly rce(s) Supporting Document(s) A/G RATIO 1.7 A/G RATIO [place] ([facility]) Note: Responsible Observer: () AFR AMER GFR >60 mL/min AFR AMER GFR [place] ([facility]) Note: Male GFR Interprentation 20- 49 yrs [...] () 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 64 yrs AGE [place] ([facility]) Note: Responsible Observer: () Albumin [Mass/volume] in Blood by Bromocresol purple ( BCP) dye binding method 4.3 G/DL ALBUMIN [place] ([facility]) Note: Responsible Observer: () ALKALINE PHOS 48 U/L ALKALINE PHOS [place] ([facility]) Note: Responsible Observer: () Anion gap in Body fluid 12.0 mmol/L ANION GAP [place] ([facility]) Note: Responsible Observer: () BUN 15 MG/DL BUN [place] ([facility]) Note: Responsible Observer: () BUN/CREAT 19 BUN/CREAT [place] ([facility]) Note: Responsible Observer: () Calcium [Moles/volume] in Urine collected for unspecified durati on 9.5 MG/DL CALCIUM [place] ([facility]) Note: Responsible Observer: () Chloride [Moles/volume] in Serum, Plasma or Blood 103 mEq/L CHLORIDE [place] ([facility]) Note: Responsible Observer: () CO2 24 MEQ/L CO2 [place] ([facility]) Note: Responsible Observer: () COMPREHENSIVE METABOLIC PANEL See Note COMPRE HENSIVE METABOLIC PANEL [place] ([facility]) Note: COMPREHENSIVE METABOLIC PANELR esponsible Observer: () Creatinine [Moles/volume] in Vitreous fluid 0.8 MG/DL CREATININE [place] ([facility]) Note: Responsible Observer: () Globulin [Mass/time] in 24 hour Urine 2.5 GM/DL GLOBULIN [place] ([facility]) Note: Responsible Observer: () Glucose [Mass/volume] in Urine collected for unspecified duratio n 184 MG/DL Above high normal GLUCOSE [place] ([facility]) Note: Responsible Observer: () NON-AA GFR >60 mL/min NON-AA GFR [place] ([facility]) Note: Responsible Observer: () Potassium [Mass/volume] in Blood 4.7 mEq/L POT ASSIUM [place] ([facility]) Note: Responsible Observer: () SGOT/AST 21 U/L SGOT/AST [place] ([facility]) Note: Responsible Observer: () SGPT/ALT 30 U/L SGPT/ALT [place] ([facility]) Note: Responsible Observer: () Sodium [Moles/volume] in Serum, Plasma or Blood 139 mEq/L SODIUM [place] ([facility]) Note: Responsible Observer: () TOTAL BILI <0.7 MG/DL TOTAL BILI [place] ([facility]) Note: Responsible Observer: () TOTAL PROTEIN 6.8 G/DL TOTAL PROTEIN [place] ([facility]) Note: Responsible Observer: () ID Date Data Source [id number] 08/12/2019 07:48:00 AM EST ELIZABETH ([facility]) Name Value Range Interpretation Code Description Data Shelly rce(s) Supporting Document(s) Reported Physicians See Note Reported Physici ans [place] ([facility]) Note: Reported Physicians:Ordering: Esha De La Garza AAttending: ESHA TALAMANTESConsulting: Alex TALAMANTES To: Esha Talamantes ID Date Data Source [id number] 08/12/2019 07:48:00 AM EST [employer] ([facility]) Name Value Range Interpretation Code Description Data Shelly rce(s) Supporting Document(s) CREAT UR 137.6 MG/DL Above high normal CREAT UR KIARA HAWKINS ([facility]) Note: Responsible Observer: (BLD) MA/CREAT RATIO 2.76 MCG/MG MA/CREAT RATIO JEMIMA TEJADA ([facility]) Note: The [employer] ion states that Microalbuminemia is present if the Microalbumin/Creatinine ratio exceeds 30 mcg/mg. The threshold for Clinical Albuminuria is reached at 300 mcg/mg. The classification of a patient should be based upon at least 2 or 3 abnormal results on specimens collected within a 3 to 6 month timeframe.Responsible Observer: (BLD) MICROALBUMIN <12.00 MG/L Above high normal MICROALBUMIN GR DARELL ([facility]) Note: Responsible Observer: (BLD) ID Date Data Source [id number] 08/12/2019 07:48:00 AM EST [place] ([facility]) Name Value Range Interpretation Code Description Data Shelly rce(s) Supporting Document(s) Reported Physicians See Note Reported Israel ONOFREWAY ([facility]) Note: Reported Physicians:Ordering: Esha De La Garza AAttending: ESHA TALAMANTESConsulting: ESHA TALAMANTESCopninfa To: Esha Talamantes ID Date Data Source [id number] 08/12/2019 07:48:00 AM EST [place] ([facility]) Name Value Range Interpretation Code Description Data Shelly rce(s) Supporting Document(s) PSA 0.95 ng/mL PSA [place] ([facility]) Note: BLDoPSA INTERP RETATIONBLDx The PSA [...] interchangeably.Responsible Observer: () ID Date Data Source [id number] 08/12/2019 07:48:00 AM EST [place] ([facility]) Name Value Range Interpretation Code Description Data Shelly rce(s) Supporting Document(s) Reported Physicians See Note Reported Israel JOHNSON ([facility]) Note: Reported Physicians:Ordering: Beard e, Esha AAttending: VINITA, JOCELYNConsulting: VINITA, JOCELYNCopy To: Esha Talamantes ID Date Data Source [id number] 08/12/2019 07:48:00 AM [facility] ([facility]) Name Value Range Interpretation Code Description Data Shelly rce(s) Supporting Document(s) Cholesterol [Moles/volume] in Pericardial fluid 177 MG/DL CHOLESTEROL [place] ([facility]) Note: Responsible Observer: (BLD) CVE PANEL See Note CVE PANEL [place] ([facility]) Note: LIPID PANELResponsible Observe r: (BLD) HDL 48 MG/DL HDL [place] ([facility]) Note: Responsible Observer: (BLD) Cholesterol in LDL [Mass/volume] in Serum or Plasma by Direct as say 91 mg/dL LDL [place] ([facility]) Note: Responsible Observer: (BLD) LDL/HDL 1.90 LDL/HDL [place] ([facility]) Note: CVE RISK CHOL/HD L LDL/HDLMEN: 1/2 AVERAGE 3.43 1.00 AVERAGE 4.97 3.55 2X AVERAGE 9.55 6.25 3X AVERAGE 23.99 7.99WOMEN: 1/2 AVERAGE 3.27 1.47 AVERAGE 4.44 3.22 2X AVERAGE 7.05 5.03 3X AVERAGE 11.04 6.14Responsible Observer: (BLD) RISK FACTOR 3.7 RISK FACTOR [place] ([facility]) Note: Responsible Observer: (BLD) TRIGLYCERIDES 272 MG/DL Above high normal [facility] Note: Responsible Observer: (BLD) ID Date Data Source [id number] 08/12/2019 07:48:00 AM [facility] ([facility]) Name Value Range Interpretation Code Description Data Shelly rce(s) Supporting Document(s) Reported Physicians See Note Reported Physici ans [place] ([facility]) Note: Reported Physicians:Ordering: Beard e, Esha AAttending: VINITA JOCELYNConsulting: Alex TALAMANTES To: Esha Talamantes ID Date Data Source [id number] 08/12/2019 07:48:00 AM EST [facility]IZABETH ([facility]) Name Value Range Interpretation Code Description Data Shelly rce(s) Supporting Document(s) Testosterone, Serum 137 ng/dL Below low normal Testostero ne, Serum [place] ([facility]) Note: Adult male reference interval is b ased on a population ofhealthy nonobese males (BMI <30) between 19 and 39 years old.Silas, et.al. JCEM 2017,102;1161- 1173. PMID: [id number].Responsible Observer: (rfl) ID Date Data Source [id number] 08/13/2019 08:10:00 AM EST [facility] Name Value Range Interpretation Code Description Data Shelly rce(s) Supporting Document(s) Testosterone [Mass/volume] in Serum or Plasma 137 ng/dL 264-916 L [facility] Adult male reference interval is based o n a population ofhealthy nonobese males (BMI <30) between 19 and 39 years old.Travison, et.al. JCEM 2017,102;7128-5486. PMID: [id number]. ID Date Data Source [id number] 08/12/2019 01:01:00 PM EST [facility] Name Value Range Interpretation Code Description Data Shelly rce(s) Supporting Document(s) CVE PANEL [facility] LIPID PANEL Cholesterol [Mass/volume] in Serum or Plasma 177 MG/DL 131 - 200 [facility] Deprecated Triglyceride [Mass/volume] in Serum or Plasma 272 MG/DL 3 5 - 160 H [facility] HDL 48 MG/DL 29 - 86 [facility] Ch[facility] in LDL/Cholesterol in HDL [Mass Ratio] in Serum or Plasma 91 mg/dL 65 - 175 [facility] Cholesterol.total/Cholesterol in HDL [Mass Ratio] in Serum o r Plasma 3.7 3.4 - 4.9 [facility] LDL/HDL 1.90 1.00 - 3.55 [facility] ital CVE RISK CHOL/HDL LDL/HDLMEN: 1/2 AVERAGE 3.43 1.00 AVERAGE 4.97 3.55 2X AVERAGE 9.55 6.25 3X AVERAGE 23.99 7.99WOMEN: 1/2 AVERAGE 3.27 1.47 AVERAGE 4.44 3.22 2X AVERAGE 7.05 5.03 3X AVERAGE 11.04 6.14 ID Date Data Source [id number] 08/12/2019 12:41:00 PM [facility] Name Value Range Interpretation Code Description Data Shelly rce(s) Supporting Document(s) Prostate specific Ag [Mass/volume] in Serum or Plasma 0.95 ng/mL 0.00 - 4.00 [facility] \\BLDo\\PSA INTERPRETA TION\\BLDx\\ The PSA assay should not be used alone for a screening test or diagnosis for presence or absence of malignant disease. Predictions of disease recurrence should not be based solely on values obtained from serial patient serum values. The PSA result was determined by "[employer]", on the [employer] SINA 6000. Values obtained with different assay methods or kits cannot be used interchangeably. ID Date Data Source [id number] 08/12/2019 12:10:00 PM [facility] Name Value Range Interpretation Code Description Data Shelly rce(s) Supporting Document(s) COMPREHENSIVE METABOLIC PANEL [facility] COMPREHENSIVE METABOLIC PANEL Sodium [Moles/volume] in Serum or Plasma 139 mEq/L 134 - 153 [facility] Potassium [Moles/volume] in Serum or Plasma 4.7 mEq/L 3.6 - 5.0 [facility] Chloride [Moles/volume] in Serum or Plasma 103 mEq/L 98 - 107 [facility] Carbon dioxide, total [Moles/volume] in Serum or Plasma 24 MEQ/L 22 - 30 [facility] Glucose [Mass/volume] in Serum or Plasma 184 MG/DL 65 - 110 H [facility] BUN 15 MG/DL 7 - 21 [facility] Creatinine [Mass/volume] in Serum or Plasma 0.8 MG/DL 0.7 - 1.5 [facility] BUN/CREAT 19 8 - 27 [facility] Protein [Mass/volume] in Serum or Plasma 6.8 G/DL 6.3 - 8.2 [facility] Albumin [Mass/volume] in Serum or Plasma 4.3 G/DL 3.9 - 5.0 [facility] Globulin [Mass/volume] in Serum by calculation 2.5 GM/DL 2.4 - 3.2 [facility] A/G RATIO 1.7 0.8 - 2.0 [facility] Calcium [Mass/volume] in Serum or Plasma 9.5 MG/DL 8.4 - 10.2 [facility] Bilirubin.total [Mass/volume] in Serum or Plasma <0.7 MG/DL 0.2 - 1.3 [facility] Alkaline phosphatase [Enzymatic activity/volume] in Serum or Plasma 48 U/L 38 - 126 [facility] Aspartate aminotransferase [Enzymatic activity/volume] in Serum or Plasma 21 U/L 5 - 40 [facility] Alanine aminotransferase [Enzymatic activity/volume] in Seru m or Plasma 30 U/L 7 - 56 [facility] Anion gap 3 in Serum or Plasma 12.0 mmol/L 8.0 - 16.0 [facility] AGE 64 yrs [facility] NON-AA GFR >60 mL/min [facility] ital AFR AMER GFR >60 mL/min [facility] Male GFR In terprentation [...] >32 mL/min Normal ID Date Data Source [id number] 08/12/2019 12:10:00 PM EST [facility] Name Value Range Interpretation Code Description Data Shelly rce(s) Supporting Document(s) CREAT UR 137.6 MG/DL 0.0 - 30.0 H [facility] MICROALBUMIN <12.00 MG/L 0.00 - 0.00 H [facility] MA/CREAT RATIO 2.76 MCG/MG 0.01 - 30.00 [facility] The [employer] st ates that Microalbuminemia is present if the Microalbumin/Creatinine ratio exceeds 30 mcg/mg. The threshold for Clinical Albuminuria is reached at 300 mcg/mg. The classification of a patient should be based upon at least 2 or 3 abnormal results on specimens collected within a 3 to 6 month timeframe. ID Date Data Source [id number] 08/12/2019 12:03:00 PM [facility] Name Value Range Interpretation Code Description Data Shelly rce(s) Supporting Document(s) Creatine kinase [Enzymatic activity/volume] in Serum or Plasma 1 02 U/L 30 - 170 [facility] ID Date Data Source [id number] 07/09/2019 08:53:00 AM [facility] [address] [place] [address] PHONE: [phone] FAX: [phone] Name ..............: APRYL Ma Acct Number ...........................: [id number] ROOM. ............: TR1A MR Number ............................: [id number] Stay type.........: E/R Discharge Date...............:07/07/19 Admit Date .....: 07/07/19 Admit Phys .............................: SIVA TOPETE Date of ..: 1955 Family Phys ...........................: VINITA HOOPER Phone..............: [phone] Age.................................:63 Film# ...............:[id number] Sex.................................:M Unsigned transcriptions are preliminary reports and do not represent a medical or legal document MARQUES [id number] COMPLETE:07/08/19 07:30 SAVAGE [id number] Please See Scanned Results. Name Value Range Interpretation Code Description Data Shlely rce(s) Supporting Document(s) ID Date Data Source [id number] 07/08/2019 09:58:00 AM EST [facility] [address] [place] [address] PHONE: [phone] FAX: [phone] Name .................. : APRYL Ma Acct Number.................. : [id number] ROOM. ................. : [facility] MR Number ................... : [id number] Stay type ............. : E/R Discharge Date......... ... : 07/07/19 Admit Date ......... : 07/07/19 Admit Phys .................... : SIVA TOPETE Date of ....... : 1955 Family Phys ................... : VINITA HOOPER Phone .................. : [phone] Age ................................ : 63 Film# .................. .:[id number] Sex ................................. : M Unsigned transcriptions are preliminary reports and do not represent a medical or legal document CT CERV SPINE W/O BASIL [id number] COMPLETE:07/07/19 13:35 [id number] Reason(s): Pain CT STUDY OF THE CERVICAL [...] [place] via fax [address] [place] [address] PHONE: [phone] FAX: [phone] Name .................. : APRYL Ma Acct Number.................. : [id number] ROOM. ................. : TR-1A MR Number ................... : [id number] Stay type ............. : E/R Discharge D ate......... ... : 07/07/19 Admit Date ......... : 07/07/19 Admit Phys .................... : SIVA TOPETE Date of ....... : 1955 Family Phys ................... : VINITA HOOPER Phone .................. : [phone] Age ................................ : 63 Film# .................. .:[id number] Sex ................................. : M Unsigned transcriptions are preliminary reports and do not represent a medical or legal document CT CERV SPINE W/O CONTRAS [id number] COMPLETE:07/07/19 13:35 [id number] Reason(s): Pain Copy for: EMERGENCY DEPT via modem Copy for: 710 MED REC DISCHARGED Page 2 of 2 Name Value Range Interpretation Code Description Data Shelly rce(s) Supporting Document(s) ID Date Data Source [id number] 07/08/2019 09:54:00 [place] [address] PHONE: [phone] FAX: [phone] Name .................. : APRYL Ma Acct Number.................. : [id number] ROOM. ................. : TR-1A MR Number ................... : [id number] Stay type ............. : E/R Discharge Date......... ... : 07/07/19 Admit Date ......... : 07/07/19 Admit Phys .................... : SIVA EFREM Date of ....... : 1955 Family Phys ................... : VINITA HOOPER Phone .................. : [phone] Age ................................ : 63 Film# .................. .:[id number] Sex ................................. : M Unsigned transcriptions are preliminary reports and do not represent a medical or legal document [place] [id number] COMPLETE:07/07/19 13:37 [id number] Reason(s): Pain LEFT ELBOW SERIES: FINDINGS: No [...] rce(s) Supporting Document(s) ID Date Data Source [id number] 07/08/2019 09:54:00 AM EST [facility] [address] [address] PHONE: [phone] FAX: [phone] Name .................. : APRYL Ma Acct Number.................. : [id number] ROOM. ................. : [facility] MR Number ................... : [id number] Stay type ............. : E/R Discharge Date......... ... : 07/07/19 Admit Date ......... : 07/07/19 Admit Phys .................... : SIVA TOPETE Date of ....... : 1955 Family Phys ................... : VINITA RUFUS Phone .................. : [phone] Age ................................ : 63 Film# .................. .:[id number] Sex ................................. : M Unsigned transcriptions are preliminary reports and do not represent a medical or legal document CHEST 2 VIEWS [id number] COMPLETE:07/07/19 13:35 [id number] Reason(s): Congestion CHEST X-RAY: 2-VIEWS HISTORY: Congestion [...] rce(s) Supporting Document(s) ID Date Data Source [id number] 07/07/2019 01:18:00 PM EST [facility] 1 OrderSheet [facility] Emergency Department [address] [place] [address] Phone #: ext- [phone] 07/07/2019 13:01 Patient: TOLU RATLIFF Sex: M : 1955 Age: 63yWEIGHT:88.4 kg (S) HEIGHT:71 inches (S) BMI:27.2ALLERGIES: Shellfish-derived ProductsCHIEF COMPLAINT: pain, swelling, altered sensation, pain, swelling, altered sensation, Lt, shoulders, in:, Lt,elbowsDIAGNOSIS: BursitisLAB ORDERSOrder Description Priority Entered Acknowledged InitialedCBC w Diff STAT 13:35 07/07/2019 13:46 Edna AVINA;CMP STAT 13:35 07/07/2019 13:46 Edna AVINA;Blood Culture STAT 13:35 07/07/2019 13:46 [id number] X2 (Sched Faustino Paris RN13:35 07/07/2019) PA;Blood Culture STAT 13:35 07/07/2019 13:46 [id number] X2 (Sched Faustino sparrow RN13:45 07/07/2019) PA;Lactic Acid STAT 13:35 07/07/2019 13:46 Edna Paris RN PA;PT/PTT STAT 13:35 07/07/2019 13:46 Edna Paris RN PA;Urinalysis (Clean STAT 13:35 07/07/2019 15:25 DorisCatch) Faustino Paris RN PA;Sed. Rate STAT 13:35 07/07/2019 13:46 Edna Paris RN PA;CRP STAT 13:35 07/07/2019 13:46 Edna Paris RN PA;Troponin-T STAT 13:35 07/07/2019 13:46 Edna Paris RN PA; 2 OrderSheet [facility] Emergency Department [address] [place] [address] Phone #: ext- [phone] 07/07/2019 13:01 Patient: [...] 15:30 Edna Paris RN PA; 3 OrderSheet [facility] Emergency Department [address] [place] [address] Phone #: ext- [phone] 07/07/2019 13:01 Patient: TOLU RATLIFF Sex: M : 1955 Age: 63y[Electronically signed by Edna Paris RN (15:38 07/07/2019)][Electronically signed by Faustino Young (17:59 07/07/2019)][Electronically locked by Edna Paris RN (15:38 07/07/2019)] Name Value Range Interpretation Code Description Data Shelly rce(s) Supporting Document(s) ID Date Data Source [id number] 07/07/2019 01:18:00 PM EST [facility] 1 Medication Reconciliation Report [facility] Emergency Department [address] [place] [address] Phone #: ext- [phone] 07/07/2019 13:01 [id number] Sex: M : 1955 Age: 63yWeight: 88.4 [...] 1 pack. Refills: 0. Substitution permitted.Pharmacy - [id number] - [address], [place] [id number]. .Bactrim DS 800 mg-160 mg tablet Take 1 tablet twice a day for 10 days -- Dispense 20 tablet. Refills: 2 Medication Reconciliation Report [facility] Emergency Department [address] [place] [address] Phone #: ext- [phone] 07/07/2019 13:01 Patient: TOLU RATLIFF Sex: M : 1955 Age: 63y0. Substitution permitted.[id number] [address], [place] [id number]. . -- FABRICE Pena Name Value Range Interpretation Code Description Data Shelly rce(s) Supporting Document(s) ID Date Data Source [id number] 07/07/2019 01:18:00 PM [facility] 1 Medication Administration Record [facility] Emergency Department [address] [place] [address] Phone #: ptr- [phone] 07/07/2019 13:01 Patient: TOLU RATLIFF Sex: M [...] rce(s) Supporting Document(s) ID Date Data Source [id number] 07/07/2019 01:18:00 PM [facility] 1 General Instructions [facility] Emergency Department [address] [place] [address] Phone #: ext- [phone] 07/07/2019 13:01 Patient: [...] tomorrow AM.Dispense 1 pack. Refills: 0. Substitution permitted.[id number] [phone]. FaxNumber: .Bactrim DS 800 mg-160 mg tablet Take 1 tablet twice a day for 10 days -- Dispense 20 tablet. Refills:0. Substitution permitted.[facility] #[id number] - [address] [place], [place] [phone]. .Follow-up:Follow up with your doctor Monday. Call for an appointment. Reason for referral: evaluation, treatment andreferral to Orthopedics for left elbow burisitis if no improvement.. Summary of care provided to patient.Understanding of the discharge instructions verbalized by patient. ADDITIONAL INFORMATIONBursitis 2 General Instructions [facility] Emergency Department [address] [place] [address] Phone #: ext- [phone] 07/07/2019 13:01 Patient: TOLU RATLIFF Sex: M [...] wrap or splint wet. You may take cvfj-pfa-jnxqhqk pain medicine to treat pain and inflammation, [...] to flare up again. 3 General Instructions [facility] Emergency Department [address] [place] [address] Phone #: ext- [phone] 07/07/2019 13:01 Patient: TOLU RATLIFF Sex: M : 1955 Age: 63yWhen to seek medical adviceCall your healthcare provider right away if any of these occur: Redness or warmth over the painful area Increasing pain or swelling at the joint Fever of 100.4F (38C) or above lasting for 24 to 48 hours, or as advised Chills [id number] [employer]. [address] [place] [address]. All rights reserved. This information is not [...] apply an elastic bandage: 4 General Instructions [facility] Emergency Department [address] [place] [address] Phone #: ext- [phone] 07/07/2019 13:01 Patient: [...] doesn't go away after bandage is removed [phone] [employer]. [address] [place] [address], [place] [address]. All rights reserved. This information is not intended as asubstitute for professional medical care. Always follow your healthcare professional's instructions. You have been given the following additional information: Bursitis TARYN Wrap 5 General Instructions [facility] Emergency Department [address] [place] [address] Phone #: ext- [phone] 07/07/2019 13:01 Patient: TOLU RATLIFF Sex: M : 1955 Age: 63y(Electronically signed by FABRICE Pena 07/07/2019 17:59) Name Value Range Interpretation Code Description Data Shelly rce(s) Supporting Document(s) ID Date Data Source [id number] 07/07/2019 01:18:00 PM EST [facility] 1 Clinical Report - Nurses [facility] Emergency Department [address] [place] [address] Phone #: ext- [phone] 07/07/2019 13:01 Patient: [...] RN.ADDITIONAL SURGERIES: 2 Clinical Report - Nurses [facility] Emergency Department [address] [place] [address] Phone #: ext- [phone] 07/07/2019 13:01 Patient: [...] risk identified. --13:12 07/07/19 Edna Paris RN.PHYSICAL [id number] 07/07/19. Ambulatory to room.GENERAL / NEURO / [...] Paris RN 3 Clinical Report - Nurses [facility] Emergency Department [address] [place] [address] Phone #: wox- [phone] 07/07/2019 13:01 Patient: TOLU RATLIFF Sex: M [...] to radiology and CT by wheelchair with radiology equipment servicer. --14:38 07/07/19 Edna Paris RN 14:38 07/07/19. Patient returned from radiology and CT by wheelchair with radiology equipment servicer. --14:38 07/07/19 Edna Paris RN 14:50 07/07/2019 [...] F. Pain level now 4/10. --15:35 07/07/19 Union conference planning manager, Chema, Tech1 15:37 07/07/19. Condition at departure: improved and stable. No learning barriers present. Discharge instructions provided and reviewed with the patient. Reviewed medication(s) side effects, precautions, dosing and course information. Prescription(s) sent electronically to pharmacy (Medrol, Bactrim DS). Patient verbalized understanding. Written instructions provided in Colombian. The patient was discharged home. He left ambulatory and via private vehicle. Patient driving. --15:38 07/07/19 Edna Paris RN.Locked/Released at 07/07/2019 15:38 by Edna Paris RN Name Value Range Interpretation Code Description Data Shelly rce(s) Supporting Document(s) ID Date Data Source [id number] 07/07/2019 01:18:00 PM EST [facility] 1 Clinical Report - Physicians/Mid Levels [facility] Emergency Department [address] [place] [address] Phone #: ext- [phone] 07/07/2019 13:01 [id number] Sex: M : 1955 Age: 63y Time [...] hives). 2 Clinical Report - Physicians/Mid Levels [facility] Emergency Department [address] [place] [address] Phone #: ext- [phone] 07/07/2019 13:01 Patient: [...] 2.0) 3 Clinical Report - Physicians/Mid Levels [facility] Emergency Department [address] [place] [address] Phone #: ext- [phone] 07/07/2019 13:01 Patient: [...] DIFF NOT INDICATED RBC MORPH NOT INDICATEDCMP: (RAYN: 07/07/2019 14:01) ( MsgRcvd 07/07/2019 14:42) Final [...] Male GFR Interprentation 20-49 yrs >60 mL/min [id number] yrs >56 mL/min Normal 60-69 yrs >49 mL/min Normal 70-79yrs>42 mL/min Normal 80 and above >35 mL/min Normal Female GFRInterpretation 20-39 yrs >60 mL/min Normal 40-49 yrs >58 mL/minNormal 50-59 yrs >51 mL/min Normal 60-69 yrs >45 mL/min Bmmfly19-87 yrs >39 mL/min Normal 80 and above [...] VenousThrombosis, Pulmonary Embolus, Tissue heart valves, Acute [place] Atrial Fibrillation, Valvular heart diseaseand recurrent Systemic [...] results 4 Clinical Report - Physicians/Mid Levels [facility] Emergency Department [address] [place] [address] Phone #: ext- [phone] 07/07/2019 13:01 Patient: [...] prn. 5 Clinical Report - Physicians/Mid Levels [facility] Emergency Department [address] [place] [address] Phone #: ext- [phone] 07/07/2019 13:01 Patient: TOLU RATLIFF Sex: M : 1955 Age: 63y Serevent Diskus Inhalation : 2 puffs daily. Prescription Medications: Medrol (Chucky) 4 mg tablets in a dose pack Take 1 tablet as directed for 6 days -- start tomorrow AM. Dispense 1 pack. Refills: 0. Substitution permitted. Pharmacy - [facility] [id number] [address] [place], [place] [phone]. . Bactrim DS 800 mg-160 mg tablet Take 1 tablet twice a day for 10 days -- Dispense 20 tablet. Refills: 0. Substitution permitted. Pharmacy - [facility] #[id number] [facility] [address] [place], [place] [phone]. FaxNumber: [phone]. Follow-up: Follow up with your doctor Monday. Call for an appointment. Reason for referral: evaluation, treatment and referral to Orthopedics for left elbow burisitis if no improvement.. Summary of care provided to patient. Understanding of the discharge instructions verbalized by patient.(Electronically signed by FABRICE Pena 07/07/2019 17:59) Name Value Range Interpretation Code Description Data Shelly rce(s) Supporting Document(s) ID Date Data Source [id number] 07/07/2019 03:30:00 PM EST [place] ([facility]) Name Value Range Interpretation Code Description Data Shelly rce(s) Supporting Document(s) Reported Physicians See Note Reported Physici ans [place] ([facility]) Note: Reported Physicians:Ordering: Sandy UMANAending: Liyah PANIAGUAulting: Alex TALAMANTES To: Azeb Young To: Trina PANIAGUA To: Esha Talamantes ID Date Data Source [id number] 07/07/2019 03:30:00 PM EST [facility] ([facility]) Name Value Range Interpretation Code Description Data Shelly rce(s) Supporting Document(s) Bilirubin [Presence] in Peritoneal fluid NEG BILIRUBIN [facility] ([facility]) Note: Responsible Observer: () Blood [Presence] in Urine by Visual NEG BLOOD [facility] ([facility]) Note: Responsible Observer: () Clarity of Pleural fluid from Fetus clear CLARITY [facility] ([facility]) Note: Responsible Observer: () Color of Exudate from wound yellow COLOR [facility] ([facility]) Note: Responsible Observer: () Glucose [Mass/volume] in Urine collected for unspecified duration N ORM GLUCOSE [facility] ([facility]) Note: Responsible Observer: () KETONE NEG KETONE [facility] ([facility]) Note: Responsible Observer: () LEUK EST NEG LEUK EST [facility] ([facility]) Note: Responsible Observer: () MICROSCOPIC Not Indicate MICROSCOPIC [facility] ([facility]) Note: Responsible Observer: () Nitrite [Presence] in Urine by Test strip NEG NITRITE [facility] ([facility]) Note: Responsible Observer: () pH of Vaginal fluid by Test strip 5 pH [facility] ([facility]) Note: Responsible Observer: () Protein [Mass/volume] in Saliva (oral fluid) NEG PROTEIN [facility] ([facility]) Note: Responsible Observer: () SPEC GRAVITY 1.030 SPEC GRAVITY [facility] ([facility]) Note: Responsible Observer: () Urobilinogen [Presence] in Urine by Automated test strip NOR UROBILINOGEN [facility] ([facility]) Note: Responsible Observer: () SOURCE R SOURCE [facility] ([facility]) Note: Responsible Observer: () URINALYSIS See Note URINALYSIS [facility] ([facility]) Note: URINALYSISResponsible Observer : () ID Date Data Source [id number] 07/07/2019 03:53:00 PM [facility] Name Value Range Interpretation Code Description Data Shelly rce(s) Supporting Document(s) URINALYSIS [facility] juan [facility] yellow NORMAL: Yellow [facility] CLARITY clear NORMAL: Clear [facility] sp[facility] Specific gravity of Urine by Test strip 1.030 1.001 - 1.030 [facility] pH 5 5 - 9 [facility] Glucose [Mass/volume] in Urine by Test strip NORM NORMAL: Negat [facility] Bilirubin.total [Presence] in Urine by Test strip NEG NORMAL: Negative [facility] Ketones [Presence] in Urine by Test strip NEG NORMAL: Negative [facility] Protein [Mass/volume] in Urine by Test strip NEG NORMAL: Negat [facility] Nitrite [Presence] in Urine by Test strip NEG NORMAL: Negative [facility] BLOOD NEG NORMAL: Negative [facility] Leukocyte esterase [Presence] in Urine by Test strip NEG JOSE L: Negative [facility] Urobilinogen [Mass/volume] in Urine by Test strip NOR less madeleine n 1.0 mg/dL [facility] MICROSCOPIC Not Indicate [facility] ID Date Data Source [id number] 07/08/2019 09:43:00 AM [facility] CELIA @ [facility] NOTIFIED 07/08/19 @ 0900 RMMLE FT ELBOW BURSADoes the specimen need to be recollected?: YREASON REJECTED:: WRONG SWAB COLLECTEDTEST(S) ORDERED:: ANAEROBIC CULTURE LEFT ELBOW BURSA LEFT ELBOW BURSA Name Value Range Interpretation Code Description Data Shelly rce(s) Supporting Document(s) Laboratory ANAEROBIC CULTURE [facility] Laboratory studies (set) WRONG SWAB COLLECTED [facility] One or more of the tests that youordered cannot be performed.Please recollect, reorder and resubmit. ID Date Data Source [id number] 07/09/2019 07:21:00 AM [facility] CELIA @ [facility] NOTIFIED 07/08/19 @ 0900 RMMLE FT ELBOW BURSADoes the specimen need to be recollected?: YREASON REJECTED:: WRONG SWAB COLLECTEDTEST(S) ORDERED:: ANAEROBIC CULTURE LEFT ELBOW BURSA LEFT ELBOW [facility] Name Value Range Interpretation Code Description Data Shelly rce(s) Supporting Document(s) Gram stain result No organisms seen [facility] ID Date Data Source [id number] 07/12/2019 10:33:00 AM [facility] CELIA @ [facility] NOTIFIED 07/08/19 @ 0900 RMMLE FT ELBOW BURSADoes the specimen need to be recollected?: YREASON REJECTED:: WRONG SWAB COLLECTEDTEST(S) ORDERED:: ANAEROBIC CULTURE LEFT ELBOW BURSA LEFT ELBOW [facility]URSA Name Value Range Interpretation Code Description Data Shelly rce(s) Supporting Document(s) Bacteria identified in Wound by Aerobe culture [facility] Culture results No growth at 4 days [facility] ID Date Data Source [id number] 07/07/2019 03:17:00 PM [facility] Name Value Range Interpretation Code Description Data Shelly rce(s) Supporting Document(s) Reported Physicians See Note Reported Terii karoline JOHNSON ([facility]) Note: Reported Physicians:Ordering: Sandy UMANAending: Liyah PANIAGUAulting: Alex TALAMANTES To: Azeb Young To: Trina PANIAGUA To: Esha Talamantes ID Date Data Source [id number] 07/07/2019 03:17:00 PM ALENA JOHNSON ([facility]) Name Value Range Interpretation Code Description Data Shelly rce(s) Supporting Document(s) GRAM STAIN See Note GRAM STAIN [facility] ([facility]) Note: GRAM STAIN: TEST PERFORMED AT [facility] [address] [place] [address] CLIA# [id number] SEE SCANNED REPORT COMMENT: Respo nsible Observer: () ID Date Data Source [id number] 07/07/2019 03:17:00 PM EST [place] ([facility]) Name Value Range Interpretation Code Description Data Shelly rce(s) Supporting Document(s) Reported Physicians See Note Reported Physici ans [place] ([facility]) Note: Reported Physicians:Ordering: Sandy UMANAending: Liyah PANIAGUAulting: Alex TALAMANTES To: Azeb Young To: Trina PANIAGUA To: Esha Talamantes ID Date Data Source [id number] 07/07/2019 03:17:00 PM [facility] ([facility]) Name Value Range Interpretation Code Description Data Shelly rce(s) Supporting Document(s) CULTURE WOUND See Note CULTURE WOUND [facility] ([facility]) Note: .WOUND CULTURE_{ SPECIM EN SOURCE : Result: TEST [place]FORMED [place] [address] CLIA# [id number] SEE SCANNED REPORT Responsible Observer: (DW) ID Date Data Source [id number] 07/12/2019 02:08:00 PM EST [facility] Name Value Range Interpretation Code Description Data Shelly rce(s) Supporting Document(s) CULTURE WOUND [facility] spital .WOUND CULTURE_{ SPECIMEN SHELLY RCE : Result: TEST PERFORMED AT [address] [address] CLIA# [id number] SEE SCANNED REPORT ID Date Data Source [id number] 07/09/2019 01:14:00 PM EST [facility] Name Value Range Interpretation Code Description Data Shelly rce(s) Supporting Document(s) GRAM STAIN [facility]osp juan GRAM STAIN: TEST PERFORMED AT [address] [address] CLIA# [id number] SEE SCANNED REPORT COMMENT: ID Date Data Source [id number] 07/13/2019 10:38:00 AM EST [facility] [address] Name Value Range Interpretation Code Description Data Shelly rce(s) Supporting Document(s) Bacteria identified in Blood by Culture [facility] NO GROWTH AFTER 5 DAYS ID Date Data Source [id number] 07/07/2019 02:56:00 PM EST [place] ([facility]) Name Value Range Interpretation Code Description Data Shelly rce(s) Supporting Document(s) Reported Physicians See Note Reported Physici ans [place] ([facility]) Note: Reported Physicians:Ordering: Sandy UMANAending: Liyah PANIAGUAulting: Alex TALAMANTES To: Azeb Young To: Trina PANIAGUA To: Esha Talamantes ID Date Data Source [id number] 07/07/2019 02:56:00 PM [facility] ([facility]) Name Value Range Interpretation Code Description Data Shelly rce(s) Supporting Document(s) CULTURE BLOOD See Note CULTURE BLOOD [facility] ([facility]) Note: _CULTURE BLOOD_ TEST P ERFORMED AT [address] [address] CLIA# [id number] SEE SCANNED REPORT{ PRELIMResponsible Observer: (GBT) ID Date Data Source [id number] 07/14/2019 03:41:00 AM EST [facility] Name Value Range Interpretation Code Description Data Shelly rce(s) Supporting Document(s) CULTURE BLOOD [facility] Ho spital _CULTURE BLOOD_ TEST PERFORM ED AT [address] [address] CLIA# [id number] SEE SCANNED REPORT{ PRELIM ID Date Data Source [id number] 07/07/2019 02:01:00 PM EST [place] ([facility]) Name Value Range Interpretation Code Description Data Shelly rce(s) Supporting Document(s) Reported Physicians See Note Reported Physici ans [place] ([facility]) Note: Reported Physicians:Ordering: FAUSTINO UMANAAttending: VENERUS, BRYANConsulting: VINITA, JOCELYNCopy To: Christiane YoungdeCopy To: VENERUS, BRYANCopy To: Vinita, Esha ID Date Data Source [id number] 07/07/2019 02:01:00 PM EST [facility] ([facility]) Name Value Range Interpretation Code Description Data Shelly rce(s) Supporting Document(s) SED RATE 1 mm/hr SED RATE [facility] ([facility]) Note: Responsible Observer: () SED RATE REENTER 1 SED RATE REENTER [facility] ([facility]) Note: Responsible Observer: () ID Date Data Source [id number] 07/07/2019 02:01:00 PM EST [facility] ([facility]) Name Value Range Interpretation Code Description Data Shelly rce(s) Supporting Document(s) Reported Physicians See Note Reported Physici ans [place] ([facility]) Note: Reported Physicians:Ordering: CHRISTIANE UMANADEAttending: VENERUS, BRYANConsulting: VINITA, JOCELYNCopy To: Swatsworth, WadeCopy To: VENERUS, BRYANCopy To: Vinita, Esha ID Date Data Source [id number] 07/07/2019 02:01:00 PM EST [place] ([facility]) Name Value Range Interpretation Code Description Data Shelly rce(s) Supporting Document(s) LACTIC ACID 3.0 MMOL/L Above high normal LACTIC ACID [facility] ([facility]) Note: Responsible Observer: () ID Date Data Source [id number] 07/07/2019 02:01:00 PM EST [place] ([facility]) Name Value Range Interpretation Code Description Data Shelly rce(s) Supporting Document(s) Reported Physicians See Note Reported Physici ans [place] ([facility]) Note: Reported Physicians:Ordering: Sandy UMANAending: RACHEL PANIAGUAonsulting: Alex TALAMANTES To: Azeb Young To: Trina PANIAGUA To: Esha Talamantes ID Date Data Source [id number] 07/07/2019 02:01:00 PM EST [place] ([facility]) Name Value Range Interpretation Code Description Data Shelly rce(s) Supporting Document(s) INR in Blood by Coagulation assay 0.92 Below low nor mal INR [place] ([facility]) Note: Responsible Observer: () PROTIME 12.5 SECONDS PROTIME [place] ([facility]) Note: Responsible Observer: () PTT 27.1 SECONDS PTT [place] ([facility]) Note: \\BLD o\\INR INTERPRETATION\\BLDx Therapeutic range for Coumadin and related oral anticoagulants. - International Normalized Ratio (INR): 2.0 - 3.0 for Venous Thrombosis, Pulmonary Embolus, Tissue heart valves, Acute [place] Atrial Fibrillation, Valvular heart disease and recurrent [...] interferences.Responsible Observer: () ID Date Data Source [id number] 07/07/2019 02:01:00 PM EST [facility] ([facility]) Name Value Range Interpretation Code Description Data Shelly rce(s) Supporting Document(s) Reported Physicians See Note Reported Physici ans [facility] ([facility]) Note: Reported Physicians:Ordering: Sandy UMANAending: VENERUS, BRYANConsulting: VINITA, JOCELYNCopy To: Azeb Young To: VENERUS, BRYANCopy To: Vinita Esha ID Date Data Source [id number] 07/07/2019 02:01:00 PM EST [facility] ([facility]) Name Value Range Interpretation Code Description Data Shelly rce(s) Supporting Document(s) #BASO 0.04 10\\^3/uL #BASO [facility] ([facility]) Note: Responsible Observer: () #EOS 0.18 10\\^3/uL #EOS [facility] ([facility]) Note: Responsible Observer: () #IG 0.04 10\\^3/uL #IG [facility] ([facility]) Note: Responsible Observer: () #LYMPH 2.04 10\\^3/uL #LYMPH [facility] ([facility]) Note: Responsible Observer: () #MONO 0.87 10\\^3/uL #MONO [facility] ([facility]) Note: Responsible Observer: () #NEUT 8.34 10\\^3/uL Above high normal #NEUT [place] ([facility]) Note: Responsible Observer: () #NRBC 0.00 10\\^3/uL #NRBC [facility] ([facility]) Note: Responsible Observer: () %NRBC 0.0 % %NRBC [facility] ([facility]) Note: Responsible Observer: () %IG 0.3 % Above high normal %IG [facility] ([facility]) Note: Responsible Observer: () CBC W/AUTOMATED DIFF See Note CBC W/AUTOMATED DIFF [facility] ([facility]) Note: COMPLETE BLOOD COUNTResponsibl e Observer: () BASO 0.3 % BASO [facility] ([facility]) Note: Responsible Observer: () EOS 1.6 % EOS [facility] ([facility]) Note: Responsible Observer: () Hematocrit [Pure volume fraction] of Blood by Automated count 47.4 % HEMATOCRIT [place] ([facility]) Note: Responsible Observer: () LYMPH 17.7 % Below low normal LYMPH [place] ([facility]) Note: Responsible Observer: () Hemoglobin [Mass/volume] in Mixed venous blood by Oximetry 15.9 g/d L HEMOGLOBIN [place] ([facility]) Note: Responsible Observer: () MANUAL DIFF NOT INDICATED MANUAL DIFF [place] ([facility]) Note: Responsible Observer: () MCH 30.4 pg MCH [place] ([facility]) Note: Responsible Observer: SUSAN) MCHC 33.5 g/dL MCHC [place] ([facility]) Note: Responsible Observer: () MCV 90.6 fL MCV [place] ([facility]) Note: Responsible Observer: () MONO 7.6 % MONO [place] ([facility]) Note: Responsible Observer: () NEUT 72.5 % NEUT [place] ([facility]) Note: Responsible Observer: () MPV 9.2 fL MPV [place] ([facility]) Note: Responsible Observer: () Platelets [#/area] in Blood by Microscopy high power field 217 10\\^ 3/uL PLATELETS [place] ([facility]) Note: Responsible Observer: SUSAN) RBC 5.23 10\\^6/uL RBC [place] ([facility]) Note: Responsible Observer: () RBC MORPH NOT INDICATED RBC MORPH [place] ([facility]) Note: Responsible Observer: SUSAN) RDW 12.8 % RDW [place] ([facility]) Note: Responsible Observer: () WBC 11.5 10\\^3/uL Above high normal WBC GREE [facility] ([facility]) Note: Responsible Observer: SUSAN) ID Date Data Source [id number] 07/07/2019 02:01:00 PM EST [facility] ([facility]) Name Value Range Interpretation Code Description Data Shelly rce(s) Supporting Document(s) Reported Physicians See Note Reported [facility] ans [place] ([facility]) Note: Reported Physicians:Ordering: CHRISTIANE UMANADEAttending: VENERUS, BRYANConsulting: VINITA, JOCELYNCopy To: Olga LidiaatsworthChristianedeCopy To: VENERUS, BRYANCopy To: Vinita, Esha ID Date Data Source [id number] 07/07/2019 02:01:00 PM EST [facility] ([facility]) Name Value Range Interpretation Code Description Data Shelly rce(s) Supporting Document(s) TROPONIN T 0.01 NG/ML TROPONIN T [place] ([facility]) Note: TROPONIN T0.1 ng/ml Recommended as the clinical threshold value forTroponin T.Responsible Observer: () ID Date Data Source [id number] 07/07/2019 02:01:00 PM EST ELIZABETH ([facility]) Name Value Range Interpretation Code Description Data Shelly rce(s) Supporting Document(s) Reported Physicians See Note Reported [facility] ans [place] ([facility]) Note: Reported Physicians:Ordering: FAUSTINO UMANAAttending: VENERUS, BRYANConsulting: VINITA, JOCELYNCopy To: Christiane YoungdeCopy To: VENERUS, BRYANCopy To: Vinita Esha ID Date Data Source [id number] 07/07/2019 02:01:00 PM EST ELIZABETH ([facility]) Name Value Range Interpretation Code Description Data Shelly rce(s) Supporting Document(s) A/G RATIO 1.8 A/G RATIO [place] ([facility]) Note: Responsible Observer: () AFR AMER GFR >60 mL/min AFR AMER GFR [place] ([facility]) Note: Male GFR Interprentation 20- 49 yrs [...] 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 63 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 AGE ELIZABETH ([facility]) Note: Responsible Observer: () Albumin [Mass/volume] in Blood by Bromocresol purple ( BCP) dye binding method 4.8 G/DL ALBUMIN [place] ([facility]) Note: Responsible Observer: () ALKALINE PHOS 55 U/L ALKALINE PHOS ELIZABETH ([facility]) Note: Responsible Observer: () BUN 15 MG/DL BUN [place] ([facility]) Note: Responsible Observer: () Anion gap in Body fluid 15.0 mmol/L ANION GAP [place] ([facility]) Note: Responsible Observer: () BUN/CREAT 19 BUN/CREAT [place] ([facility]) Note: Responsible Observer: () Calcium [Moles/volume] in Urine collected for unspecified durati on 10.6 MG/DL Above high normal CALCIUM [place] ([facility]) Note: Responsible Observer: () Chloride [Moles/volume] in Serum, Plasma or Blood 102 mEq/L CHLORIDE [place] ([facility]) Note: Responsible Observer: () CO2 24 MEQ/L CO2 [place] ([facility]) Note: Responsible Observer: () COMPREHENSIVE METABOLIC PANEL See Note COMPRE HENSIVE METABOLIC PANEL [place] ([facility]) Note: COMPREHENSIVE METABOLIC PANELR esponsible Observer: () Creatinine [Moles/volume] in Vitreous fluid 0.8 MG/DL CREATININE [place] ([facility]) Note: Responsible Observer: () Globulin [Mass/time] in 24 hour Urine 2.7 GM/DL GLOBULIN [place] ([facility]) Note: Responsible Observer: () Glucose [Mass/volume] in Urine collected for unspecified duratio n 120 MG/DL Above high normal GLUCOSE ELIZABETH ([facility]) Note: Responsible Observer: () NON-AA GFR >60 mL/min NON-AA GFR [place] ([facility]) Note: Responsible Observer: () Potassium [Mass/volume] in Blood 4.3 mEq/L POT ASSIUM ELIZABETH ([facility]) Note: Responsible Observer: () SGOT/AST 26 U/L SGOT/AST ELIZABETH ([facility]) Note: Responsible Observer: () Sodium [Moles/volume] in Serum, Plasma or Blood 141 mEq/L SODIUM ELIZABETH ([facility]) Note: Responsible Observer: () SGPT/ALT 45 U/L SGPT/ALT ELIZABETH ([facility]) Note: Responsible Observer: () TOTAL BILI 0.7 MG/DL TOTAL BILI ELIZABETH ([facility]) Note: Responsible Observer: () TOTAL PROTEIN 7.5 G/DL TOTAL PROTEIN ELIZABETH ([facility]) Note: Responsible Observer: () ID Date Data Source [id number] 07/07/2019 02:01:00 PM EST ELIZABETH ([facility]) Name Value Range Interpretation Code Description Data Shelly rce(s) Supporting Document(s) Reported Physicians See Note Reported Physici ans [place] ([facility]) Note: Reported Physicians:Ordering: Sandy UMANAending: Liyah PANIAGUAulting: Alex TALAMANTES To: Azeb Young To: YUSEF PANIAGUAANCopy To: Esha Talamantes ID Date Data Source [id number] 07/07/2019 02:01:00 PM EST ELIZABETH ([facility]) Name Value Range Interpretation Code Description Data Shelly rce(s) Supporting Document(s) CRP-HS 1.00 MG/L CRP-HS [place] ([facility]) Note: CDC/S HS-CRP CUT-OFF : RELATIVE RISK: <1.0 mg/L Low 1.0 - 3.0 mg/L Average >3.0 mg/L High Optimally, the average of HS-CRP results repeated two weeks apart should be used for risk assessment.Responsible Observer: () ID Date Data Source [id number] 07/07/2019 02:01:00 PM [facility] ([facility]) Name Value Range Interpretation Code Description Data Shelly rce(s) Supporting Document(s) Reported Physicians See Note Reported Physici ans [place] ([facility]) Note: Reported Physicians:Ordering: FAUSTINO UMANAAttending: VENERUS, BRYANConsulting: VINITA, JOCELYNCopy To: Faustino YoungCopninfa To: VENERUS, BRYANCopy To: Arminda Talamantescelyn ID Date Data Source [id number] 07/07/2019 02:01:00 PM [facility] ([facility]) Name Value Range Interpretation Code Description Data Shelly rce(s) Supporting Document(s) CULTURE BLOOD See Note CULTURE BLOOD [place] ([facility]) Note: _CULTURE BLOOD_ TEST [place] [address] CLIA# [id number] SEE SCANNED REPORT{ PRELIMResponsible Observer: (GBT) ID Date Data Source [id number] 07/14/2019 03:40:00 AM [facility] Value Range Interpretation Code Description Data Shelly rce(s) Supporting Document(s) CULTURE BLOOD [facility] Ho spital _CULTURE BLOOD_ TEST [place]FORM [place] [address] CLIA# [id number] SEE SCANNED REPORT{ PRELIM ID Date Data Source [id number] 07/07/2019 04:00:00 PM [facility] Name Value Range Interpretation Code Description Data Shelly rce(s) Supporting Document(s) Erythrocyte sedimentation rate by Westergren method 1 mm/hr 0 - 20 [facility] SED RATE REENTER 1 [facility] ID Date Data Source [id number] 07/07/2019 02:42:00 PM [facility] Name Value Range Interpretation Code Description Data Shelly rce(s) Supporting Document(s) COMPREHENSIVE METABOLIC PANEL [facility] COMPREHENSIVE METABOLIC PANEL Sodium [Moles/volume] in Serum or Plasma 141 mEq/L 134 - 153 [facility] Potassium [Moles/volume] in Serum or Plasma 4.3 mEq/L 3.6 - 5.0 [facility] Chloride [Moles/volume] in Serum or Plasma 102 mEq/L 98 - 107 [facility] Carbon dioxide, total [Moles/volume] in Serum or Plasma 24 MEQ/L 22 - 30 [facility] Glucose [Mass/volume] in Serum or Plasma 120 MG/DL 65 - 110 H [facility] BUN 15 MG/DL 7 - 21 [facility] Creatinine [Mass/volume] in Serum or Plasma 0.8 MG/DL 0.7 - 1.5 [facility] BUN/CREAT 19 8 - 27 [facility] Protein [Mass/volume] in Serum or Plasma 7.5 G/DL 6.3 - 8.2 [facility] Albumin [Mass/volume] in Serum or Plasma 4.8 G/DL 3.9 - 5.0 [facility] Globulin [Mass/volume] in Serum by calculation 2.7 GM/DL 2.4 - 3.2 [facility] A/G RATIO 1.8 0.8 - 2.0 [facility] Calcium [Mass/volume] in Serum or Plasma 10.6 MG/DL 8.4 - 10.2 H [facility] Bilirubin.total [Mass/volume] in Serum or Plasma 0.7 MG/DL 0.2 - 1.3 [facility] Alkaline phosphatase [Enzymatic activity/volume] in Serum or Plasma 55 U/L 38 - 126 [facility] Aspartate aminotransferase [Enzymatic activity/volume] in Serum or Plasma 26 U/L 5 - 40 [facility] Alanine aminotransferase [Enzymatic activity/volume] in Seru m or Plasma 45 U/L 7 - 56 [facility] Anion gap 3 in Serum or Plasma 15.0 mmol/L 8.0 - 16.0 [facility] AGE 63 yrs [facility] al NON-AA GFR >60 mL/min [facility] ital AFR AMER GFR >60 mL/min [facility] spital Male GFR In terprentation [...] >32 mL/min Normal ID Date Data Source [id number] 07/07/2019 02:41:00 PM EST [facility] Name Value Range Interpretation Code Description Data Shelly rce(s) Supporting Document(s) CBC W/AUTOMATED DIFF [facility] COMPLETE BLOOD COUNT Leukocytes [#/volume] in Blood by Automated count 11.5 10^3/uL 4.2 - 11.0 H [facility] Erythrocytes [#/volume] in Blood by Automated count 5.23 10^6/uL 4. 50 - 6.30 [facility] Hemoglobin [Mass/volume] in Blood 15.9 g/dL 14.0 - 16.0 [facility] Hematocrit [Volume Fraction] of Blood by Automated count 47.4 % 4 1.0 - 51.0 [facility] Erythrocyte mean corpuscular volume [Entitic volume] by Auto mated count 90.6 fL 80.0 - 94.0 [facility] Erythrocyte mean corpuscular hemoglobin [Entitic mass] by Automated count 30.4 pg 27.0 - 34.0 [facility] Erythrocyte mean corpuscular hemoglobin concentration [Mass/volume] by Automated count 33.5 g/dL 31.0 - 36.0 [facility] Erythrocyte distribution width [Ratio] by Automated count 12.8 % 11.5 - 14.8 [facility] Platelets [#/volume] in Blood by Automated count 217 10^3/uL 150 - 45 0 [facility] Platelet mean volume [Entitic volume] in Blood by Automated count 9.2 fL 7.4 - 10.4 [facility] Neutrophils/100 leukocytes in Blood by Automated count 72.5 % 37. 0 - 80.0 [facility] Lymphocytes/100 leukocytes in Blood by Manual count 17.7 % 25.0 - 40.0 L [facility] Monocytes/100 leukocytes in Blood by Automated count 7.6 % 3.0 - 8.0 [facility] Eosinophils/100 leukocytes in Blood by Automated count 1.6 % 0.0 - 7.0 [facility] Basophils/100 leukocytes in Blood by Automated count 0.3 % 0.0 - 2.0 [facility] %IG 0.3 % 0.0 - 0.0 H [facility] Hospit al %NRBC 0.0 % 0.0 - 0.0 [facility] al Neutrophils [#/volume] in Blood by Automated count 8.34 10^3/uL 2.00 - 6.90 H [facility] Lymphocytes [#/volume] in Blood by Automated count 2.04 10^3/uL 0.60 - 3.40 [facility] Monocytes [#/volume] in Blood by Automated count 0.87 10^3/uL 0.00 - 0.90 [facility] Eosinophils [#/volume] in Blood by Automated count 0.18 10^3/uL 0.00 - 0.70 [facility] Basophils [#/volume] in Blood by Automated count 0.04 10^3/uL 0.00 - 0.20 [facility] #IG 0.04 10^3/uL 0.00 - 0.10 [facility] H ospital #NRBC 0.00 10^3/uL 0.00 - 0.00 [facility] H ospital MANUAL DIFF NOT INDICATED [facility] RBC MORPH NOT INDICATED [facility] spital ID Date Data Source [id number] 07/07/2019 02:40:00 PM EST [facility] Name Value Range Interpretation Code Description Data Shelly rce(s) Supporting Document(s) TROPONIN T 0.01 NG/ML 0.00 - 0.10 [facility] spital TROPONIN T0.1 ng/ml Recommended as the c linical threshold value forTroponin T. ID Date Data Source [id number] 07/07/2019 02:40:00 PM EST [facility] Name Value Range Interpretation Code Description Data Shelly rce(s) Supporting Document(s) C reactive protein [Mass/volume] in Serum or Plasma by High sensitivity method 1.00 MG/L 1.00 - 3.00 [facility] HS-CRP CUT-OFF: RELATIVE RISK: <1.0 mg/L Low 1.0 - 3.0 mg/L Average >3.0 mg/L High Optimally, the average of HS-CRP results repeated two weeks apart should be used for risk assessment. ID Date Data Source [id number] 07/07/2019 02:40:00 PM [facility] Name Value Range Interpretation Code Description Data Shelly rce(s) Supporting Document(s) Prothrombin time (PT) 12.5 SECONDS 11.0 - 15.5 [facility] INR in Platelet poor plasma by Coagulation assay 0.92 0.93 - 1. 23 L [facility] aPTT in Blood by Coagulation assay 27.1 SECONDS 24.8 - 36.7 [facility] \\BLDo\\INR INTERPRETATION\\BLDx\\ Therapeutic range for Coumadin and related oral anticoagulants. - International Normalized Ratio (INR): 2.0 - 3.0 for Venous Thrombosis, Pulmonary Embolus, Tissue heart valves, Acute [place] Atrial Fibrillation, Valvular heart disease and recurrent [...] and other interferences. ID Date Data Source [id number] 07/07/2019 02:39:00 PM [facility] Name Value Range Interpretation Code Description Data Shelly rce(s) Supporting Document(s) Lactate [Moles/volume] in Serum or Plasma 3.0 MMOL/L 0.2 - 2.2 H [facility] ID Date Data Source [id number] 06/25/2019 12:00:00 AM EST [place] ([facility]) Name Value Range Interpretation Code Description Data Shelly rce(s) Supporting Document(s) Hemoglobin A1c/Hemoglobin.total in Blood 6.5 Abnormal (applies to non-numeric results) HbA1C [place] ([facility]) ID Date Data Source [id number] 06/25/2019 12:00:00 AM EST ELIZABETH ([facility]) Name Value Range Interpretation Code Description Data Shelly rce(s) Supporting Document(s) Glucose [Mass/volume] in Urine collected for unspecified duration 1 16 Normal Glucose ELIZABETH ([facility]) Procedure Social History Code Duration Value Status Description Data Source(s ) Smoking 07/02/2020 12:00:00 AM EST Patient is a former smoker completed Patient is a former smoker [facility]VIV ([facility], ) Alcohol intake 05/28/2020 12:00:00 AM EST Yes completed [facility] Cigarette pack-years 05/28/2020 12:00:00 AM EST UNK completed [facility] Cigarettes smoked current (pack per day) - Reported 05/28/20 12:00:00 AM EST UNK completed [facility] Smoking 05/28/2020 12:00:00 AM EST Former smoker completed Former smoker [facility] 04/12/2020 09:42:24 AM EDT Current some day smoker com pleted Current some day smoker [facility] Smoking 04/12/2020 09:42:00 AM EDT Current some day smoker com pleted Current some day smoker [facility] 04/11/2020 05:52:00 PM EDT Current every day smoker co mpleted Current every day smoker [facility] Smoking 04/11/2020 05:52:00 PM EDT Current every day smoker co mpleted Current every day smoker [facility] 05/19/2019 12:00:00 AM EST Cigarette Smoker completed Cig arette Smoker [facility] 05/19/2019 12:00:00 AM EST Current smoker completed Curre nt smoker [facility] Vital Signs ID Date Data Source UNK Name Value Range Interpretation Code Description Data Source(s) Body surface area Derived from formula 2.06 m2 2.06 m2 MEDVIV ([facility], ) Body weight 86.184 kg 86.184 kg DALILA ([facility], ) [place] body weight 172 [lb_av] 172 [lb_av] MEDEN T ([facility], ) Body mass index (BMI) [Ratio] 26.5 kg/m2 26.5 k g/m2 [facility] ([facility]) Body weight 190.00 [lb_av] 190.00 [lb_av] MEDEN T ([facility]) Body height 71 [in_i] 71 [in_i] [facility] ([facility]) 5'11" Oxygen saturation in Arterial blood by Pulse oximetry 94 % 94 % [facility] ([facility]) Room Air Heart rate 90 /min 90 /min [facility] ([facility]) Diastolic blood pressure 72 mm[Hg] 72 mm[Hg] [facility] ([facility]) Systolic blood pressure 140 mm[Hg] 140 mm[Hg] [facility] ([facility]) Body surface area Derived from formula 2.03 m2 2.03 m2 [facility] ([facility]) Body weight 82.555 kg 82.555 kg [facility] ([facility]) [place] body weight 172 [lb_av] 172 [lb_av] [facility] Body mass index (BMI) [Ratio] 25.4 kg/m2 25.4 k g/m2 [facility] ([facility]) Body weight 182.00 [lb_av] 182.00 [lb_av] [facility] Body height 71 [in_i] 71 [in_i] [facility] ([facility]) 5'11" Oxygen saturation in Arterial blood by Pulse oximetry 93 % 93 % [facility] ([facility]) Room Air Heart rate 86 /min 86 /min [facility] ([facility]) Diastolic blood pressure 70 mm[Hg] 70 mm[Hg] [facility] ([facility]) Systolic blood pressure 130 mm[Hg] 130 mm[Hg] [facility] ([facility]) Body weight 88.452 kg 88.452 kg [facility] ([facility]) Body weight 195.00 [lb_av] 195.00 [lb_av] [facility] Oxygen saturation in Arterial blood by Pulse oximetry 85 % 85 % [facility] ([facility], ) 88 ra Heart rate 71 /min 71 /min [facility] ([facility], ) Diastolic blood pressure 78 mm[Hg] 78 mm[Hg] [facility] Systolic blood pressure 130 mm[Hg] 130 mm[Hg] [facility] Oxygen saturation in Arterial blood by Pulse oximetry 92 % 92 % [facility] Body mass index (BMI) [Ratio] 26.36 kg/m2 26.36 kg/m2 [facility] Body weight 85.73 kg 85.73 kg [facility] Body height 180.3 cm 180.3 cm [facility] Heart rate 96 /min 96 /min [facility] Diastolic blood pressure 94 mm[Hg] 94 mm[Hg] [facility] Systolic blood pressure 162 mm[Hg] 162 mm[Hg] [facility] Inhaled oxygen concentration 21 % 21 % [place] ([facility]) Inhaled oxygen flow rate 0 L/min 0 L/min [place] ([facility]) Oxygen saturation in Arterial blood by Pulse oximetry 92 % 92 % [place] ([facility]) Body surface area Derived from formula 2.06 m2 2.06 m2 [place] ([facility]) Body mass index (BMI) [Ratio] 26.5 kg/m2 26.5 k g/m2 [place] ([facility]) Body weight 190 [lb_av] 190 [lb_av] [facility] ( [facility]) Body height 71 [in_i] 71 [in_i] [place] ([facility]) Body temperature 97.9 [degF] 97.9 [degF] [facility] ([facility]) Respiratory rate 24 /min 24 /min [place] ([facility]) Heart rate 68 /min 68 /min [facility] Diastolic blood pressure 68 mm[Hg] 68 mm[Hg] [place] ([facility]) Systolic blood pressure 128 mm[Hg] 128 mm[Hg] [facility] ([facility]) Inhaled oxygen concentration 21 % 21 % [place] ([facility]) O2 with mask 84% without mask went to 95% Inhaled oxygen flow rate 0 L/min 0 L/min [place] ([facility]) O2 with mask 84% without mask went to 95% Oxygen saturation in Arterial blood by Pulse oximetry 84 % 84 % [place] ([facility]) O2 with mask 84% without mask went to 95% Body surface area Derived from formula 2.07 m2 2.07 m2 [place] ([facility]) O2 with mask 84% without mask went to 95% Body mass index (BMI) [Ratio] 26.6 kg/m2 26.6 k g/m2 [place] ([facility]) O2 with mask 84% without mask went to 95% Body weight 191 [lb_av] 191 [lb_av] [place] ([facility]) O2 with mask 84% without mask went to 95% Body height 71 [in_i] 71 [in_i] [place] ([facility]) O2 with mask 84% without mask went to 95% Body temperature 97.6 [degF] 97.6 [degF] [facility] ([facility]) O2 with mask 84% without mask went to 95% Respiratory rate 24 /min 24 /min [place] ([facility]) O2 with mask 84% without mask went to 95% Heart rate 91 /min 91 /min [place] ([facility]) O2 with mask 84% without mask went to 95% Diastolic blood pressure 82 mm[Hg] 82 mm[Hg] [place] ([facility]) O2 with mask 84% without mask went to 95% Systolic blood pressure 132 mm[Hg] 132 mm[Hg] [facility] ([facility]) O2 with mask 84% without mask went to 95% Inhaled oxygen concentration 21 % 21 % [place] ([facility]) Inhaled oxygen flow rate 0 L/min 0 L/min [place] ([facility]) Oxygen saturation in Arterial blood by Pulse oximetry 94 % 94 % [place] ([facility]) Body surface area Derived from formula 2.07 m2 2.07 m2 [place] ([facility]) Body mass index (BMI) [Ratio] 26.6 kg/m2 26.6 k g/m2 [place] ([facility]) Body weight 191 [lb_av] 191 [lb_av] [place] ([facility]) Body height 71 [in_i] 71 [in_i] [place] ([facility]) Body temperature 97.1 [degF] 97.1 [degF] [facility] [facility] ([facility]) Respiratory rate 24 /min 24 /min [place] ([facility]) Heart rate 84 /min 84 /min [place] ([facility]) Diastolic blood pressure 86 mm[Hg] 86 mm[Hg] [place] ([facility]) Systolic blood pressure 134 mm[Hg] 134 mm[Hg] [facility] ([facility]) Inhaled oxygen concentration 21 % 21 % [place] ([facility]) Inhaled oxygen flow rate 0 L/min 0 L/min [place] ([facility]) Oxygen saturation in Arterial blood by Pulse oximetry 97 % 97 % [place] ([facility]) Body surface area Derived from formula 2.10 m2 2.10 m2 [place] ([facility]) Body mass index (BMI) [Ratio] 27.8 kg/m2 27.8 k g/m2 [place] ([facility]) Body weight 199 [lb_av] 199 [lb_av] [place] ([facility]) Body height 71 [in_i] 71 [in_i] [place] ([facility]) Body temperature 97.8 [degF] 97.8 [degF] [facility] [facility] ([facility]) Respiratory rate 24 /min 24 /min [place] ([facility]) Heart rate 90 /min 90 /min [place] ([facility]) Diastolic blood pressure 78 mm[Hg] 78 mm[Hg] [place] ([facility]) Systolic blood pressure 134 mm[Hg] 134 mm[Hg] [facility] Inhaled oxygen concentration 21 % 21 % [place] ([facility]) Inhaled oxygen flow rate 0 L/min 0 L/min [place] ([facility]) Oxygen saturation in Arterial blood by Pulse oximetry 97 % 97 % [place] ([facility]) Body surface area Derived from formula 2.12 m2 2.12 m2 [place] ([facility]) Body mass index (BMI) [Ratio] 28.3 kg/m2 28.3 k g/m2 [place] ([facility]) Body weight 203 [lb_av] 203 [lb_av] [place] ([facility]) Body height 71 [in_i] 71 [in_i] [place] ([facility]) Body temperature 97.8 [degF] 97.8 [degF] [facility] A[facility] ([facility]) Respiratory rate 24 /min 24 /min [place] ([facility]) Heart rate 97 /min 97 /min [place] ([facility]) Diastolic blood pressure 76 mm[Hg] 76 mm[Hg] [place] ([facility]) Systolic blood pressure 132 mm[Hg] 132 mm[Hg] G [facility]) Inhaled oxygen concentration 21 % 21 % [place] ([facility]) Inhaled oxygen flow rate 0 L/min 0 L/min [place] ([facility]) Oxygen saturation in Arterial blood by Pulse oximetry 98 % 98 % [place] ([facility]) Body surface area Derived from formula 2.07 m2 2.07 m2 [place] ([facility]) Body mass index (BMI) [Ratio] 26.6 kg/m2 26.6 k g/m2 [place] ([facility]) Body weight 191 [lb_av] 191 [lb_av] [place] ([facility]) Body height 71 [in_i] 71 [in_i] [place] ([facility]) Body temperature 97.8 [degF] 97.8 [degF] [place] AY ([facility]) Respiratory rate 24 /min 24 /min [place] ([facility]) Heart rate 86 /min 86 /min [place] ([facility]) Diastolic blood pressure 72 mm[Hg] 72 mm[Hg] [place] ([facility]) Systolic blood pressure 124 mm[Hg] 124 mm[Hg] [facility] Patient Treatment Plan of Care Planned Activity Planned Date Details Description Data Source (s) Albuterol 0.833 MG/ML / Ipratropium [place] 0.167 MG/M L Inhalant Solution 05/20/2020 12:00:00 AM [facility] Metformin hydrochloride 500 MG Oral Tablet 05/20/2020 12:00:00 AM E [facility] Metformin hydrochloride 500 MG Oral Tablet 05/20/2020 12:00:00 AM E [facility]) atorvastatin 20 MG Oral Tablet 05/20/2020 12:00:00 AM [facility]) 60 ACTUAT Budesonide 0.16 MG/ACTUAT / fo rmoterol fumarate 0.0045 MG/ACTUAT Metered Dose Inhaler [Symbicort] 05/20/2020 12:00:00 AM [facility]) 200 ACTUAT Albuterol 0.09 MG/ACTUAT Metered Dose Inhal er [ProAir] 05/20/2020 12:00:00 AM [facility]) Lisinopril 5 MG Oral Tablet 05/20/2020 12:00:00 AM [facility]) Triamcinolone Acetonide 1 MG/ML Topical Lotion 05/20/2020 12:00:00 AM [facility]) Lancets Ultra Fine Miscellaneous 05/20/2020 12:00:00 AM [facility]) IGlucose Test Strips In Vitro 05/20/2020 12:00:00 AM [facility]) Lisinopril 5 MG Oral Tablet 05/19/2020 12:00:00 AM [facility] Lisinopril 5 MG Oral Tablet 05/17/2020 12:00:00 AM [facility]) Prednisone 10 MG Oral Tablet 05/07/2020 12:00:00 AM [facility]) doxycycline hyclate 100 MG Oral Capsule 05/06/2020 12:00:00 AM [facility]) 60 ACTUAT Budesonide 0.16 MG/ACTUAT / fo rmoterol fumarate 0.0045 MG/ACTUAT Metered Dose Inhaler [Symbicort] 04/22/2020 12:00:00 AM [facility]) atorvastatin 20 MG Oral Tablet 04/22/2020 12:00:00 AM [facility]) Metformin hydrochloride 500 MG Oral Tablet 04/22/2020 12:00:00 AM E [facility] ([facility]) Lisinopril 5 MG Oral Tablet 04/22/2020 12:00:00 AM [facility]) 200 ACTUAT Albuterol 0.09 MG/ACTUAT Metered Dose Inhal er [ProAir] 04/22/2020 12:00:00 AM [facility]) 60 ACTUAT Budesonide 0.16 MG/ACTUAT / fo rmoterol fumarate 0.0045 MG/ACTUAT Metered Dose Inhaler [Symbicort] [facility]/20[facility] 5 MG Oral Tablet 11/20/2019 12:00:00 AM [facility]) 200 ACTUAT Albuterol 0.09 MG/ACTUAT Metered Dose Inhal er [ProAir] 10/24/2019 12:00:00 AM [facility] ([facility]) atorvastatin 20 MG Oral Tablet 08/20/2019 12:00:00 AM [facility]) IGlucose Test Strips In Vitro 08/20/2019 12:00:00 AM [facility]) Lancets Ultra Fine Miscellaneous 08/20/2019 12:00:00 AM [facility] ([facility]) Metformin hydrochloride 500 MG Oral Tablet 08/20/2019 12:00:00 AM E [facility] ([facility]) 60 ACTUAT Budesonide 0.16 MG/ACTUAT / fo rmoterol fumarate 0.0045 MG/ACTUAT Metered Dose Inhaler [Symbicort] 08/20/2019 12:00:00 AM [facility]) 200 ACTUAT Albuterol 0.09 MG/ACTUAT Metered Dose Inhal er [ProAir] 08/20/2019 12:00:00 AM [facility] ([facility]) Triamcinolone Acetonide 1 MG/ML Topical Lotion 08/20/2019 12:00:00 AM EST [place] ([facility]) Lisinopril 5 MG Oral Tablet 08/20/2019 12:00:00 AM [facility]) 5000 MG Testosterone 0.01 MG/MG Topical Gel [Androgel] 08/20/2019 12:00:00 AM [facility]) atorvastatin 20 MG Oral Tablet 06/25/2019 12:00:00 AM [facility]) Metformin hydrochloride 500 MG Oral Tablet 06/25/2019 12:00:[address] [place] ([facility]) IGlucose Test Strips In Vitro 06/25/2019 12:00:00 AM [facility]) Lancets Ultra Fine Miscellaneous 06/25/2019 12:00:00 AM [facility]) 60 ACTUAT Budesonide 0.16 MG/ACTUAT / fo rmoterol fumarate 0.0045 MG/ACTUAT Metered Dose Inhaler [Symbicort] 06/25/2019 12:00:00 AM [facility]) Metformin hydrochloride 500 MG Oral Tablet 05/30/2019 12:00:[address] [place] ([facility]) IGlucose Test Strips In Vitro 01/24/2019 12:00:00 AM [facility]) Lancets Ultra Fine Miscellaneous 01/24/2019 12:00:00 AM [facility] ([facility]) Triamcinolone Acetonide 1 MG/ML Topical Lotion 01/24/2019 12:00:00 AM [facility] ([facility]) Metformin hydrochloride 500 MG Oral Tablet 01/24/2019 12:00:00 AM E [facility] ([facility]) atorvastatin 20 MG Oral Tablet 01/24/2019 12:00:00 AM EDT [facility] ([facility]) 30 ACTUAT fluticasone furoate 0.1 MG/ACT UAT / vilanterol 0.025 MG/ACTUAT Dry Powder Inhaler [Breo] 01/24/2019 12:00:00 AM EDT [facility] ([facility]) 200 ACTUAT Albuterol 0.09 MG/ACTUAT Metered Dose Inhal er [ProAir] 01/24/2019 12:00:00 AM EDT [facility] ([facility]) pantoprazole 40 MG Delayed Release Oral Tablet 04/16/2016 12:00:00 AM EDT [facility] atorvastatin 40 MG Oral Tablet 10/10/2014 12:00:00 AM EDT [facility] 200 ACTUAT Levalbuterol 0.045 MG/ACTUAT Metered Dose I nhaler [Xopenex] 04/23/2014 12:00:00 AM EST [facility] Cholecalciferol 2000 UNT Oral Capsule [facility] Nitroglycerin 0.4 MG Sublingual Tablet [facility] DAILY DIONNE (THERAGRAN) per tablet [facility] ALBUTEROL IN [facility] 24 HR metoprolol succinate 25 MG Extended Release Oral Tablet [facility] Aspirin 325 MG Oral Tablet [facility]
[2020-07-03 10:34] LABS: ALBUMIN 3.4 GM/DL (3.2-5.2); ALT/SGPT 30 U/L (12-78); BILIRUBIN,TOTAL 0.6 MG/DL (0.2-1.0); BLOOD UREA NITROGEN 13 MG/DL (7-18); CALCIUM LEVEL 9.2 MG/DL (8.8-10.2); CARBON DIOXIDE LEVEL 26 MEQ/L (21-32); CHLORIDE LEVEL 106 MEQ/L (98-107); CREATININE FOR GFR 0.86 MG/DL (0.70-1.30); GLOMERULAR FILTRATION RATE > 60.0 (>49); GLUCOSE, FASTING 129 MG/DL (70-100); POTASSIUM SERUM 4.4 MEQ/L (3.5-5.1); SODIUM LEVEL 139 MEQ/L (136-145); TOTAL PROTEIN 6.6 GM/DL (6.4-8.2)
[2020-07-03] MEDS ORDERED: flumazeniL 0.5 MG/5 ML VIAL As Ordered ONE (10:44)
[2020-07-03] MEDS ORDERED: LIDOCAINE 1% MDV 20ML VIAL As Ordered ONE ×2 (10:45→10:51)
[2020-07-03] MEDS ORDERED: MIDAZOLAM INJ 2MG/2ML VIAL (J2250 PER 1MG) As Ordered ONE (10:45)
--- NOTE | 2020-07-03 10:56 | HPEPDOC ---
General Date of Admission Jul 03, 2020 at 10:11 Date of Service: Jul 03, 2020 Chief Complaint The patient is a 64-year-old male admitted with a reason for visit of Pleural Effusion Right. Source: Patient Exam Limitations: No limitations Timing/Duration: Week(s) Severity: Moderate Associated Symptoms: Shortness of breath History of Present Illness Patient is 64 years old male with past history of a right lung metastatic adenocarcinoma with recurrent pleural effusion, paroxysmal atrial fibrillation, history of pulmonary embolism, COPD, hypertension presented to the hospital with increased shortness of breath. Of note patient was admitted by the end of May 2020 4H right pleural effusion and left-sided pulmonary embolism. Patient received treatment with anticoagulation and chest tube placement. Patient was found to have right upper lung mass and he was diagnosed with right lung metastatic adenocarcinoma. Dr. Cope his oncologist. In ER patient was found to have no leukocytosis, patient afebrile. Chest x-ray on 07/02/20 showed Increasing moderate partially loculated right pleural effusion and right lower lobe opacity as compared with prior examination. Dr. Bethea was contacted by ER physician, he will place chest tube. Home Medications Scheduled Apixaban (Eliquis) 5 Mg Tablet, 5 MG PO BID, (Reported) Aspirin (Aspirin EC) 81 Mg Tablet., 81 MG PO DAILY, (Reported) Atorvastatin Calcium (Atorvastatin Calcium) 20 Mg Tablet, 20 MG PO DAILY, (Rep orted) Budesonide/Formoterol (Symbicort 160-4.5 Mcg Inhaler) 6 Gm Hfa.aer.ad, 2 PUFF INH BID, (Reported) Dexamethasone (Decadron) 4 Mg Tablet, 4 MG PO BID day before chemotherapy day of chemotherapy day after chemotherapy for six cycles Docusate Sodium (Docusate Sodium) 100 Mg Capsule, 100 MG PO BID, (Reported) Folic Acid (Folic Acid) 1 Mg Tablet, 1 TAB PO DAILY Lisinopril (Lisinopril) 5 Mg Tablet, 5 MG PO DAILY, (Reported) Metformin HCl (Metformin HCl) 500 Mg Tablet, 500 MG PO DAILY, (Reported) Multivitamins (Thera M Plus Tablet) 1 Each Tablet, 1 TAB PO DAILY, (Reported) Pantoprazole Sodium (Pantoprazole Sodium) 40 Mg Tablet., 40 MG PO DAILY, (Reported) Umeclidinium [place] (Incruse Ellipta) 62.5 Mcg Blst.w.dev, 1 PUFF INH DAILY, (Reported) Scheduled PRN Acetaminophen (Acetaminophen) 500 Mg Tablet, 1,000 MG PO Q6H PRN for PAIN, (Reported) Acetaminophen with Codeine (Acetaminophen-Cod #3 Tablet) 1 Each Tablet, 1 TAB PO TIDP PRN for pain prn cancer pain Albuterol Sulfate (Proair Hfa) 8.5 Gm Hfa.aer.ad, 2 PUFF INH Q6H PRN for SHORTNESS OF BREATH, (Reported) Ipratropium/Albuterol Sulfate (Iprat-Albut 0.5-3(2.5) mg/3 ml) 3 Ml Ampul.neb, 1 VIAL NEB QID PRN for SHORTNESS OF BREATH, (Reported) Naproxen Sodium (Aleve) 220 Mg Tablet, 440 MG PO ONCE PRN for PAIN, (Reported) Olanzapine (Olanzapine) 10 Mg Tablet, 10 MG PO DAILY PRN for SEVERE NAUSEA Ondansetron HCl (Ondansetron HCl) 8 Mg Tablet, 8 MG PO Q6H PRN for NAUSEA OR VOMITING Allergies Coded Allergies: shellfish derived (Verified Allergy, Intermediate, hives, 06/08/20) Past Medical History Medical History diabetes COPD Atrial Fibrillation hypertension DVT pulmonary embolism Right lung metastatic adenocarcinoma Surgical History neck surgery left shoulder surgery left carpal tunnel surgery cataracts Family History father CAD mother brain aneurysm Social History * Smoker: former Smoker Alcohol: occationally Drugs: denies A-FIB/CHADSVASC A-FIB History Current/History of A-Fib/PAF?: Yes Current PO Anticoag Therapy: Yes Review of Systems Constitutional: Denies: Chills, Fever Eyes: Denies: Pain Skin: Denies: Rash Pulmonary: Reports: Dyspnea Cardiovascular: Denies: Chest Pain, Palpitations Gastrointestinal: Denies: Nausea, Vomiting Genitourinary: Denies: Dysuria, Frequency Hematologic: Denies: Bruising Endocrine: Denies: Polydipsia, Polyphagia Musculoskeletal: Denies: Neck Pain Neurological: Denies: Weakness Psych: Reports: Mood Normal Physical Examination General Exam: Positive: Alert, Cooperative Eye Exam: Positive: PERRLA ENT Exam: Positive: Atraumatic Neck Exam: Positive: Supple Chest Exam: Positive: Diminished Heart Exam: Positive: Regular Rhythm Telemetry: Positive: Sinus Abdomen Exam: Positive: Normal bowel sounds Extremity Exam: Negative: Clubbing, Cyanosis Skin Exam: Positive: Nl turgor and temperature Neuro Exam: Positive: Normal Gait, Strength at 5/5 X4 ext Psych Exam: Positive: Mental status NL Vital Signs Vital Signs Date Time Temp Pulse Resp B/P (MAP) Pulse Ox O2 Delivery O2 Flow Rate FiO2 07/03/20 09:21 97.6 82 20 145/78 (100) 97 Room Air Laboratory Data Labs 24H Laboratory Tests 2 07/03/20 09:52: Immature Granulocyte % (Auto) 0.4, Neutrophils (%) (Auto) 71.0H, Lymphocytes (%) (Auto) 14.9L, Monocytes (%) (Auto) 9.3H, Eosinophils (%) (Auto) 3.8H, Basophils (%) (Auto) 0.6, Neutrophils # (Auto) 6.4, Lymphocytes # (Auto) 1.4L, Monocytes # (Auto) 0.8, Eosinophils # (Auto) 0.3, Basophils # (Auto) 0.1, Nucleated Red Blood Cells % (auto) 0.0, Prothrombin Time 15.8H, Prothromb Time International Ratio 1.23 CBC/BMP Laboratory Tests 07/03/20 09:52 Microbiology Microbiology 07/03/20 Respiratory Virus Panel (PCR) ([facility]), Received Pending Assessment/Plan Patient is 64 years old male with past history of a right lung metastatic adenocarcinoma with recurrent pleural effusion, paroxysmal atrial fibrillation, history of pulmonary embolism, COPD, hypertension presented to the hospital with increased shortness of breath. Of note patient was admitted by the end of May 2020 4H right pleural effusion and left-sided pulmonary embolism. Patient received treatment with anticoagulation and chest tube placement. Patient was found to have right upper lung mass and he was diagnosed with right lung metastatic adenocarcinoma. Dr. Cope his oncologist. In ER patient was found to have no leukocytosis, patient afebrile. Chest x-ray on 07/02/20 showed Increasing moderate partially loculated right pleural effusion and right lower lobe opacity as compared with prior examination. Dr. Bethea was contacted by ER physician, he will place chest tube. Problems (1) Pleural effusion, right Status: Acute Problem Text: Secondary to metastatic adenocarcinoma of the right lung Dr. Bethea will place chest tube CT chest I will hold anticoagulation for now (2) Chronic atrial fibrillation Status: Chronic Problem Text: Heart rate under control I will hold anticoagulation for now due to possible Pleurx catheter placement (3) Pulmonary embolism Status: Acute Problem Text: See above (4) Metastatic lung carcinoma Status: Chronic Problem Text: Follow-up with oncologist in the outpatient settings Plan / VTE VTE Prophylaxis Ordered?: Yes LON GUERRERO DO Jul 03, 2020 10:56
--- NOTE | 2020-07-03 11:04 | REP ---
INDICATION: pleural effusion. COMPARISON: 06/10/2020. TECHNIQUE: CT chest performed without the use of intravenous contrast. Sagittal and coronal reconstruction images are performed. FINDINGS: Lungs: The spiculated mass in the right upper lobe appears essentially unchanged in size. A small nodule more inferiorly in the right upper lobe also a subcentimeter nodule in the right lower lobe are unchanged. There is a calcified granuloma in the right lower lobe. There are fibro atelectatic changes in the right lower lobe. Diffuse emphysematous and fibrotic changes are seen in the left lung. Mediastinum: No gross adenopathy. Shelli: No gross adenopathy. Axilla: No gross adenopathy. Pleura: Moderate to large amount of partially loculated pleural fluid is seen on the right, posteriorly located superiorly, extending into the fissures, and located both medially and laterally in the inferior right hemithorax. There is no left pleural effusion. Heart: Not enlarged. Thoracic aorta: No aneurysm. Upper abdominal structures: There is a small hiatal hernia. There are calcified granulomas in the spleen. Visualized osseous structures: There are degenerative changes of the spine without compression deformity. IMPRESSION: Moderate to large amount of partially loculated right pleural fluid. No significant change spiculated mass right upper lobe. Two small nodules are seen more inferiorly. <Electronically signed by Jhoan Reed > 07/03/20 1100
[2020-07-03] MEDS ORDERED: MIDAZOLAM INJ 2MG/2ML VIAL (J2250 PER 1MG) IV ONE ×2 (12:00)
[2020-07-03] MEDS ORDERED: LIDOCAINE 1% MDV 20ML VIAL SC ONE ×2 (12:00)
[2020-07-03] MEDS ORDERED: ceFAZolin SOD 2 GM in IV 1 EA IV ONE (12:00)
[2020-07-03] MEDS ORDERED: ceFAZolin 2 GM/D5W 50 ML IV BAG (J0690 PER 500MG) As Ordered ONE (12:18)
[2020-07-03] MEDS ORDERED: BISACODYL 10 MG SUPP PR PRN (12:45)
[2020-07-03] MEDS ORDERED: PERCOCET 5MG/325MG TAB PO PRN ×2 (12:45)
[2020-07-03] MEDS ORDERED: LEVALBUTEROL 1.25 MG/0.5 ML CONCENTRATE NEB NEB PRN (12:45)
--- NOTE | 2020-07-03 13:01 | REP ---
INDICATION: post procedure. COMPARISON: 07/02/2020 TECHNIQUE: Portable FINDINGS: The technique utilized in obtaining the radiograph has magnified the cardiac silhouette and accentuated the interstitial markings. A right-sided thoracotomy tube has been placed since the last exam. The right mid and lower lung field opacity which is at least in part pleural based and seen on the prior examination has decreased significantly in size and density. There are no new abnormal opacities. The lung blackmon are otherwise unchanged. The tip of the MediPort device is unchanged. There is mild cardiomegaly accentuated by technique. There is no change in the osseous structures. IMPRESSION: Improvement and other findings as described above. <Electronically signed by Bright Perez > 07/03/20 1257
[2020-07-03 13:08] LABS: LDH LACTATE DEHYDROGENASE 195 U/L (87-241)
[2020-07-03] MEDS: KCL 20MEQ IN D5/NS 1000ML 1,000 ML IV SCH (13:22)
--- NOTE | 2020-07-03 13:23 | RO ---
OPERATIVE NOTE DATE OF OPERATION: 07/03/2020 PREOPERATIVE DIAGNOSES: Recurrent pleural effusion, metastatic adenocarcinoma. POSTOPERATIVE DIAGNOSES: Recurrent pleural effusion, metastatic adenocarcinoma. PROCEDURE: Insertion of right PleurX catheter. SURGEON: Dr. Bethea FINDINGS: There was 1000 mL of serosanguineous fluid removed. There was still more in the chest; however, I left if for teaching purposes for tomorrow when we teach him how to use the bottles. DESCRIPTION OF PROCEDURE: Under satisfactory moderate sedation achieved with 4 mg of Versed, patient was prepped and draped in the usual sterile fashion. Entry and exit incisions were marked and infiltrated with 1% lidocaine. The chest incision was infiltrated to the pleural space. Two incisions were made, and a tunnel was created with hemostats. A tunnel was then created with the tunneling device and the PleurX catheter pulled through from anterior to posterior. The pleural space was found with an exploring needle, a wire was placed, and the tract was dilated with a peel-away introducer. PleurX catheter was then placed and properly positioned. The catheter was secured to the abdominal wall with a 3-0 silk suture, and skin was closed with running 4-0 Monocryl subcuticular suture. Patient tolerated the procedure well, and a chest x-ray is pending.
[2020-07-03 13:30] LABS: PH BODY FLUID 7.482 UNITS (NOT ESTABLISHED); SOURCE, BODY FLUID pH PLEURAL
[2020-07-03] MEDS: KETOROLAC 30 MG/ML 1ML VIAL IV SCH ×2 (13:32→18:43)
[2020-07-03 13:39] LABS: SOURCE, BODY FLUID PLEURAL
[2020-07-03 13:40] LABS: APPEARANCE, BODY FLUID CLOUDY (CLEAR); PLEURAL FL COLOR ORANGE (COLORLESS)
[2020-07-03] MEDS: LEVALBUTEROL 1.25 MG/0.5 ML CONCENTRATE NEB NEB SCH ×2 (13:43→20:00)
[2020-07-03 13:51] LABS: AMYLASE, BODY FLUID 40 U/L (NOT ESTABLISHED); CHOLESTEROL, BODY FLUID 70 MG/DL (NOT ESTABLISHED); LDH, BODY FLUID 181 U/L (NOT ESTABLISHED); SOURCE, BODY FLUID AMYLASE PLEURAL; SOURCE, BODY FLUID CHOL PLEURAL; SOURCE, BODY FLUID GLUCOSE PLEURAL; SOURCE, BODY FLUID LDH PLEURAL; SOURCE, BODY FLUID TRIG PLEURAL; TRIGLYCERIDE, BODY FLUID 28 MG/DL (NOT ESTABLISHED)
[2020-07-03 13:57] LABS: SOURCE, BODY FLUID ALBUMIN PLEURAL; SOURCE, BODY FLUID TOT PROTEIN PLEURAL; TOTAL PROTEIN, BODY FLUID 3.9 G/DL (NOT ESTABLISHED)
[2020-07-03] MEDS: NORCO, ANEXSIA 5/325MG TABLET (HYDROcodone/ACETAMINOPHEN) PO PRN ×2 (16:12→20:28)
--- NOTE | 2020-07-03 18:09 | ECGEPIP ---
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
[2020-07-03] MEDS: DOCUSATE SODIUM 100MG CAPSULE PO SCH (20:27)
[2020-07-03] MEDS: SYMBICORT 160/4.5MCG INHALER 6GM INH SCH (20:56)
[2020-07-04] VITALS: BP 124/72
[2020-07-04] MEDS: KCL 20MEQ IN D5/NS 1000ML 1,000 ML IV SCH ×2 (01:14→15:40)
[2020-07-04] MEDS: KETOROLAC 30 MG/ML 1ML VIAL IV SCH ×3 (01:14→13:00)
[2020-07-04] MEDS: LEVALBUTEROL 1.25 MG/0.5 ML CONCENTRATE NEB NEB SCH ×3 (01:49→13:09)
[2020-07-04 04:00] VITALS: BP 120/65
[2020-07-04 05:48] LABS: HEMATOCRIT 36.2 % (42.0-52.0); HEMOGLOBIN 11.6 g/dl (13.5-17.5); MEAN CORPUSCULAR VOLUME 90.5 fl (80.0-96.0); PLATELET COUNT, AUTOMATED 219 10^3/uL (150-450)
[2020-07-04 06:22] LABS: ALBUMIN 2.7 GM/DL (3.2-5.2); ALT/SGPT 25 U/L (12-78); BILIRUBIN,TOTAL 0.4 MG/DL (0.2-1.0); BLOOD UREA NITROGEN 10 MG/DL (7-18); CALCIUM LEVEL 8.4 MG/DL (8.8-10.2); CARBON DIOXIDE LEVEL 26 MEQ/L (21-32); CHLORIDE LEVEL 107 MEQ/L (98-107); CREATININE FOR GFR 0.77 MG/DL (0.70-1.30); GLOMERULAR FILTRATION RATE > 60.0 (>49); GLUCOSE, FASTING 173 MG/DL (70-100); MAGNESIUM LEVEL 1.9 MG/DL (1.8-2.4); POTASSIUM SERUM 4.7 MEQ/L (3.5-5.1); SODIUM LEVEL 139 MEQ/L (136-145); TOTAL PROTEIN 6.1 GM/DL (6.4-8.2)
[2020-07-04] MEDS: DOCUSATE SODIUM 100MG CAPSULE PO SCH (07:48)
[2020-07-04 07:49] VITALS: BP 133/68
[2020-07-04] MEDS: MOM 30ML SUSPENSION UDC PO SCH (07:50)
[2020-07-04 08:00] VITALS: BP 133/68
[2020-07-04] MEDS ORDERED: amLODIPine 10 MG TAB PO SCH (09:00)
[2020-07-04] MEDS ORDERED: ENOXAPARIN 40MG/0.4ML SYRINGE (J1650 PER 10MG) SC SCH (09:00)
[2020-07-04] MEDS ORDERED: ASPIRIN 81 MG ENTERIC TAB PO SCH (09:00)
[2020-07-04] MEDS ORDERED: PANTOPRAZOLE 40MG TAB (PROTONIX) PO SCH (09:00)
[2020-07-04] MEDS ORDERED: ATORVASTATIN 20 MG TAB PO SCH (09:00)
[2020-07-04] MEDS ORDERED: lisinopriL 5 MG TAB PO SCH (09:00)
--- NOTE | 2020-07-04 09:15 | REP ---
INDICATION: status of pleural effusion. COMPARISON: 07/03/2020. TECHNIQUE: CT chest performed without the use of intravenous contrast. Sagittal and coronal reconstruction images are performed. FINDINGS: There has been placement of right chest tube. The previously noted moderate to large right pleural effusion has essentially resolved. A tiny amount of residual pleural fluid remains posteriorly. There is a small right pneumothorax. There is improved aeration of the right lung. There are minor bibasilar atelectatic changes inferiorly. Chronic emphysematous and fibrotic changes are again noted bilaterally. Spiculated mass in the right upper lobe in 2 subcentimeter right lung nodules are again noted more inferiorly. Calcified granulomas seen in the right lower lobe peripherally. The right MediPort catheter with tip in the superior vena cava. Tiny amount of right pericardial fluid/thickening is again noted. No significantly enlarged lymph nodes are seen. The heart is normal in size. IMPRESSION: Interval insertion of right chest tube with almost complete resolution of the right pleural effusion. Only a tiny amount of residual pleural fluid is seen posteriorly. There is a small right pneumothorax. There is improved aeration of the right lung. <Electronically signed by Jhoan Reed > 07/04/20 0911
--- NOTE | 2020-07-04 09:36 | REP ---
INDICATION: pleural effusion COMPARISON: 07/03/2020. TECHNIQUE: PA/Lateral FINDINGS: The recently noted moderate to large right effusion has essentially resolved with a tiny amount of right pleural fluid remaining. There is a small right pneumothorax. There is a right chest tube in place. There is improved aeration of the right lung. There appear to be minor fibro atelectatic changes in each lung base. The heart is normal in size. The mediastinal silhouette is unremarkable. Right MediPort catheter is again noted. IMPRESSION: Right chest tube in place. Tiny amount of residual right pleural fluid. Very small right pneumothorax. <Electronically signed by Jhoan Reed > 07/04/20 0952
[2020-07-04] MEDS: SYMBICORT 160/4.5MCG INHALER 6GM INH SCH (10:03)
[2020-07-04] MEDS ORDERED: MORPHINE 2 MG/ML 1ML VIAL (J2270) IV PRN (10:15)
[2020-07-04] MEDS: NORCO, ANEXSIA 5/325MG TABLET (HYDROcodone/ACETAMINOPHEN) PO PRN ×2 (10:24→16:22)
[2020-07-04] MEDS ORDERED: HYDR-3715 PO (11:43)
[2020-07-04 12:00] VITALS: BP 111/64
--- NOTE | 2020-07-04 12:27 | IPN ---
PROGRESS NOTE DATE: 07/04/2020 Mr. Ratliff had another 950 mL drained from his PleurX catheter today. He is feeling fairly well, though he has some pain after his drainage. He is breathing better today. His vital signs show a maximum temperature of 97.4 with a heart rate that ranges between 72-82 in a sinus rhythm, respiratory rate that is constant at 18, who is 88%-95% saturated on room air, and whose blood pressure is ranging between 120/65 to 133/68. His intake and output for the past 24 hours has been recorded as 420 in and 1800 out, for a negativity of 1380 mL. He weighs 82.6 kg today compared to 84.2 kg yesterday. PHYSICAL EXAMINATION: He has equal breath sounds on either side. Percussion note is full to the diaphragm. Cardiac exam is without murmurs, clicks, gallops, or rubs. I cannot feel his point of maximal impulse (PMI). S1 and S2 are normal. Abdomen is soft and nontender. Bowel sounds are positive. There is no hepatomegaly. No costovertebral angle (CVA) tenderness. Extremities show no pretibial edema, no calf tenderness, no differential swelling of the upper extremities. Skin is warm, dry, and perfused without cyanosis or mottling, including that of the nailbeds and knees. Neck is supple. There is no jugular venous distention. No subcutaneous emphysema. Trachea is midline. Mouth shows the mucous membranes to be pink and moist. Lips and commissures without lesions. No thrush. Eyes show his pupils to be equal and reactive. Extraocular motion intact. Sclerae anicteric. Neurologic shows II-XII intact. Normal gross motor, gross sensation intact. Gait is not tested. Psychiatric shows him to be awake, alert, and oriented times three with appropriate mood and affect and conversational. His white count today is 8.0 with a hemoglobin and hematocrit of 11.6 and 36.2 and a platelet count of 219. Chemistries showed normal electrolytes with a BUN and creatinine of 10 and 0.77, a glucose of 177, and a calcium of 8.4. Albumin is 2.7. His chest x-ray today shows his lungs fully expanded to the chest wall except for a small bit of entrapment in the lower hemithorax on the right side. I did get a CT on his chest today. It confirms the small amount of lung entrapment. PleurX catheter is in good place. There is a pulmonary mass in the upper lobe, which is spiculated. IMPRESSION: 1. Recurrent malignant pleural effusion. 2. Shortness of breath. 3. Postoperative day #1 status post placement of PleurX catheter. 4. Adenocarcinoma. 5. Paroxysmal atrial fibrillation, now in sinus rhythm. 6. History of pulmonary embolism. 7. Chronic obstructive pulmonary disease (COPD). 8. Hypertension. PLAN AND DISCUSSION: From my perspective he can go home today. I will write him a prescription for hydrocodone/acetaminophen for when he drains himself. He will return to see me in 1 week with a chest x-ray. He will drain himself every other day or when he is symptomatic. I have filled out the paperwork for his bottles.
--- NOTE | 2020-07-04 15:53 | DS.PDOC ---
Discharge Summary General Date of Admission Jul 03, 2020 at 10:11 Date of Discharge 07/04/20 Discharge Summary PROCEDURES PERFORMED DURING STAY: [None]. ADMITTING DIAGNOSES: Pleural effusion, right Chronic atrial fibrillation Pulmonary embolism Metastatic lung carcinoma DISCHARGE DIAGNOSES: Pleural effusion, right Chronic atrial fibrillation Pulmonary embolism Metastatic lung carcinoma COMPLICATIONS/CHIEF COMPLAINT: Pleural Effusion Right. HISTORY OF PRESENT ILLNESS: Patient is 64 years old male with past history of a right lung metastatic adenocarcinoma with recurrent pleural effusion, paroxysmal atrial fibrillation, history of pulmonary embolism, COPD, hypertension presented to the hospital with increased shortness of breath. Of note patient was admitted by the end of May 2020 4H right pleural effusion and left-sided pulmonary embolism. Patient received treatment with anticoagulation and chest tube placement. Patient was found to have right upper lung mass and he was diagnosed with right lung metastatic adenocarcinoma. Dr. Cope his oncologist. In ER patient was found to have no leukocytosis, patient afebrile. Chest x-ray on 07/02/20 showed Increasing moderate partially loculated right pleural effusion and right lower lobe opacity as compared with prior examination. Dr. Bethea was contacted by ER physician, he will place chest tube. HOSPITAL COURSE: Pleurx catheter was placed For self drainage DISCHARGE MEDICATIONS: Please see below. ALLERGIES: Please see below. PHYSICAL EXAMINATION ON DISCHARGE: VITAL SIGNS: Please see below. Physical Examination General Exam: Positive: Alert, Cooperative Eye Exam: Positive: PERRLA ENT Exam: Positive: Atraumatic Neck Exam: Positive: Supple Chest Exam: Positive: Diminished Heart Exam: Positive: Regular Rhythm Telemetry: Positive: Sinus Abdomen Exam: Positive: Normal bowel sounds Extremity Exam: Negative: Clubbing, Cyanosis Skin Exam: Positive: Nl turgor and temperature Neuro Exam: Positive: Normal Gait, Strength at 5/5 X4 ext Psych Exam: Positive: Mental status NL LABORATORY DATA: Please see below. IMAGING: [facility] NAME: TOLU PINK DATE OF : 1955 AGE: 64 SEX: M REPORT #: [id number] ROOM: [facility] TECHNOLOGIST: [id number] DOCTOR: Ousmane Bethea M.D. Ordered for Date&Time: 07/04/20 0900 cc: [~ rep ct ivnm] Service Date&Time: 07/04/20 0846 This report is in Signed status. If this report is in a DRAFT status it has not yet been reviewed by the radiologist for accuracy. Thank you for having your radiology procedures performed at [facility] RADIOLOGY REPORT Date&Time printed: [~ rep prt dt last] [~ rep prt tm last] Page [address] of [address] [address] RADIOLOGY REPORT This report is in Signed status. If this report is in a DRAFT status it has not yet been reviewed by the radiologist for accuracy. Thank you for having your radiology procedures performed at [facility] RADIOLOGY REPORT Date&Time printed: [~ rep prt dt last] [~ rep prt tm last] Page 1 of 1 COMPARISON: 07/03/2020. TECHNIQUE: CT chest performed without the use of intravenous contrast. Sagittal and coronal reconstruction images are performed. FINDINGS: There has been placement of right chest tube. The previously noted moderate to large right pleural effusion has essentially resolved. A tiny amount of residual pleural fluid remains posteriorly. There is a small right pneumothorax. There is improved aeration of the right lung. There are minor bibasilar atelectatic changes inferiorly. Chronic emphysematous and fibrotic changes are again noted bilaterally. Spiculated mass in the right upper lobe in 2 subcentimeter right lung nodules are again noted more inferiorly. Calcified granulomas seen in the right lower lobe peripherally. The right MediPort catheter with tip in the superior vena cava. Tiny amount of right pericardial fluid/thickening is again noted. No significantly enlarged lymph nodes are seen. The heart is normal in size. IMPRESSION: Interval insertion of right chest tube with almost complete resolution of the right pleural effusion. Only a tiny amount of residual pleural fluid is seen posteriorly. There is a small right pneumothorax. There is improved aeration of the right lung. <Electronically signed by Jhoan Reed > 07/04/20910 DD: Jhoan Reed MD, MD 07/04/20903 DT: JONNIE 07/04/20910 DS: SAUNDRA 07/04/2090307/04/20903 [~ rep ct labl] PROGNOSIS: Guarded ACTIVITY: [As tolerated]. DIET: Cardiac DISCHARGE INSTRUCTIONS: He will drain himself every other day or when he is symptomatic ITEMS TO FOLLOWUP ON ON OUTPATIENT: Follow-up with oncologist in 3-5 days DISCHARGE CONDITION: [Stable]. TIME SPENT ON DISCHARGE: Greater than 20minutes. Vital Signs/I&Os Vital Signs Date Time Temp Pulse Resp B/P (MAP) Pulse Ox O2 Delivery O2 Flow Rate FiO2 07/04/20 12:00 97.9 106 20 111/64 (80) 91 Room Air 07/03/20 16:00 1.0 I&O- Last 24 Hours up to 6 AM 07/04/20 06:00 Intake Total 1570 ml Output Total 1800 ml Balance -230 ml Laboratory Data Labs 24H Laboratory Tests 2 07/04/20 05:20: Nucleated Red Blood Cells % (auto) 0.0, Anion Gap 6L, Glomerular Filtration Rate > 60.0, Calcium Level 8.4L, Magnesium Level 1.9, Total Bilirubin 0.4, Aspartate Amino Transf (AST/SGOT) 12, Alanine Aminotransferase (ALT/SGPT) 25, Alkaline Phosphatase 65, Total Protein 6.1L, Albumin 2.7#L, Albumin/Globulin Ratio 0.8 CBC/BMP Laboratory Tests 07/04/20 05:20 Microbiology Microbiology 07/03/20 Acid Fast Stain, Received Pending 07/03/20 Mycobacterial Culture, Received Pending 07/03/20 Fungal Smear, Received Pending 07/03/20 Fungal Culture, Received Pending 07/03/20 Gram Stain - Final, Resulted 07/03/20 Anaerobic Culture, Resulted Pending 07/03/20 Body Fluid Culture, Received Pending 07/03/20 Respiratory Virus Panel (PCR) (KEENAN) - Final, Complete Discharge Medications Scheduled Apixaban (Eliquis) 5 Mg Tablet, 5 MG PO BID, (Reported) Aspirin (Aspirin EC) 81 Mg Tablet.dr, 81 MG PO DAILY, (Reported) Atorvastatin Calcium (Atorvastatin Calcium) 20 Mg Tablet, 20 MG PO DAILY, (Reported) Budesonide/Formoterol (Symbicort 160-4.5 Mcg Inhaler) 6 Gm Hfa.aer.ad, 2 PUFF INH BID, (Reported) Dexamethasone (Decadron) 4 Mg Tablet, 4 MG PO BID day before chemotherapy day of chemotherapy day after chemotherapy for six cycles Docusate Sodium (Docusate Sodium) 100 Mg Capsule, 100 MG PO BID, (Reported) Folic Acid (Folic Acid) 1 Mg Tablet, 1 TAB PO DAILY Lisinopril (Lisinopril) 5 Mg Tablet, 5 MG PO DAILY, (Reported) Metformin HCl (Metformin HCl) 500 Mg Tablet, 500 MG PO DAILY, (Reported) Multivitamins (Thera M Plus Tablet) 1 Each Tablet, 1 TAB PO DAILY, (Reported) Pantoprazole Sodium (Pantoprazole Sodium) 40 Mg Tablet.dr, 40 MG PO DAILY, (Re ported) Umeclidinium [place] (Incruse Ellipta) 62.5 Mcg Blst.w.dev, 1 PUFF INH DAILY, (Reported) Scheduled PRN Acetaminophen (Acetaminophen) 500 Mg Tablet, 1,000 MG PO Q6H PRN for PAIN, (Reported) Acetaminophen with Codeine (Acetaminophen-Cod #3 Tablet) 1 Each Tablet, 1 TAB PO TIDP PRN for pain prn cancer pain Albuterol Sulfate (Proair Hfa) 8.5 Gm Hfa.aer.ad, 2 PUFF INH Q6H PRN for SHORTNESS OF BREATH, (Reported) Hydrocodone/Acetaminophen (Hydrocodone-Acetamin 5-325 mg) 1 Each Tablet, 1 TAB PO Q6H PRN for MILD PAIN (PS 1-4) Ipratropium/Albuterol Sulfate (Iprat-Albut 0.5-3(2.5) mg/3 ml) 3 Ml Ampul.neb, 1 VIAL NEB QID PRN for SHORTNESS OF BREATH, (Reported) Naproxen Sodium (Aleve) 220 Mg Tablet, 440 MG PO ONCE PRN for PAIN, (Reported) Olanzapine (Olanzapine) 10 Mg Tablet, 10 MG PO DAILY PRN for SEVERE NAUSEA Ondansetron HCl (Ondansetron HCl) 8 Mg Tablet, 8 MG PO Q6H PRN for NAUSEA OR VOMITING Allergies Coded Allergies: shellfish derived (Verified Allergy, Intermediate, hives, 06/08/20) LON GUERRERO DO Jul 04, 2020 15:53
== END 2020-07-04 16:44 | disposition home or self-care (01) | DRG 136 ==
LOC: M ED 09:04 → M ED INP 10:11 → M PCU 11:58
PROVIDERS: ADMIT Internal Medicine; ATTEND Internal Medicine
PROC: 0W9930Z Drainage of Right Pleural Cavity with Drainage Device, Percutaneous Approach (ICD-10-PCS; principal; 2020-07-03)
DX: C34.11 Malignant neoplasm of upper lobe, right bronchus or lung (principal); J91.0 Malignant pleural effusion; I48.20 Chronic atrial fibrillation, unspecified; I48.0 Paroxysmal atrial fibrillation; J44.9 Chronic obstructive pulmonary disease, unspecified; E11.9 Type 2 diabetes mellitus without complications; I10 Essential (primary) hypertension; Z86.711 Personal history of pulmonary embolism; Z79.82 Long term (current) use of aspirin; Z79.899 Other long term (current) drug therapy; Z91.013 Allergy to seafood

== ENCOUNTER → 2020-07-14 | Outpatient (POV) | payer OTHER ==
[~2020-07-14] MED LIST changes: +ALEV220T22 PO; +DOCU100C17 PO; +HYDR-3715 PO; -LISI-542 PO; +LISI-898 PO; +NYST50SS PO
--- NOTE | 2020-07-16 10:11 | IRPN ---
[facility] IR Progress Note IR Progress Note DATE: Jul 14, 2020 Patient agreed to this telephone follow-up. Video conference was performed. I spent 5 minutes talking to the patient. FOLLOW-UP: Status post port placement. Patient states he is doing well. Denies fevers, chills, pain or discharge at site. ON EXAMINATION: Video conference: the port site appears to be healing well. No swelling or discharge. Steri-Strips remain. IMPRESSION: Doing well status post port placement. No further follow-up scheduled unless initiated by patient and/or referring provider. Thank you for this referral Allergies Coded Allergies: shellfish derived (Verified Allergy, Intermediate, hives, 07/15/20) YAZAN HERNANDEZ MD Jul 16, 2020 10:11
== END ==
LOC: M TMIRPOV 08:42
PROVIDERS: ATTEND Radiology Diagnostic Radiology
DX: Z45.2 Encounter for adjustment and management of vascular access device (principal)

== ENCOUNTER 2020-07-15 08:10 | Emergency (ER) | payer OTHER ==
[~2020-07-15] VITALS: Ht 180.3 cm; Wt 84.0 kg
[~2020-07-15 08:10] MED LIST changes: -NYST50SS PO
--- OUTSIDE RECORDS SUMMARY | 2020-07-15 08:23 | CCD ---
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 Care Herb Doctor Name Role Phone Susan Talamantes MD Unavailable [...] Unavailable Lake, John Lizett GONCALVES Unavailable Unavailable SleJulio wood MD Unavailable Unavailable SlezkaToniojtech Unavailable Unavailable SlezkaToniojtech Unavailable Unavailable SleheatherkaJulio MD Unavailable Unavailable SlezkaToniojtech Unavailable Unavailable SlezkaToniojtech Unavailable Unavailable SlezkaToniojtech Unavailable Unavailable SlezkaToniojtech Unavailable Unavailable Slezka Vojtech MD Unavailable Unavailable Slezka Vojtech Unavailable Unavailable SlezkaToniojtech Unavailable Unavailable Slezka Vojtech Unavailable Unavailable Slezka Vojtech Unavailable Unavailable Slezka Vojtech Unavailable Unavailable Slezka Vojtech Unavailable Unavailable Slezka Vojtech MD Unavailable Unavailable Slezka Vojtech Unavailable Unavailable Slezka Vojtech Unavailable Unavailable Slezka Voannika GONCALVES Unavailable Unavailable Slezka Vojtech MD Unavailable [...] Unavailable Amaro, Isaias Stokes MD Unavailable Unavailable Amrao, Isaias Stokes MD Unavailable Unavailable Amaro, Isaias [...] Susan Balbuena MD Unavailable Unavailable [place], Susan Babluena MD Unavailable Unavailable [place], Susan Balbuena MD [...] is protected by Article 27-F of the [facility] Public Health law. If you continue you may have access to information: Regarding HIV / AIDS; Provided by facilities licensed or operated by the [facility] Office of Mental Health; or Provided by the [facility] Office for People With Developmental Disabilities. If such information is present, then the following [facility] mandated warning applies: This information has [...] law may result in a fine or custodial sentence or both. A general authorization for the release of medical or other information is NOT sufficient authorization for further disc losure. Allergies and Adverse Reactions Type Description Substance Reaction Status Data Source(s ) Food allergy shellfish derived shellfish derived [facility] Family History Family Member Name Family Member Gender Family Member Status Date o f Status Description Data Source(s) Unknown Male Problem [facility] ([facility]) Unknown Male Problem [facility] ([facility]) Encounters Encounter Providers Location Date Indications Data Source(s ) Outpatient Attender: Lizett Nixon/Marina/Khoa/Re indl 06/22/2020 09:15:00 AM EST [facility] ([facility] Outpatient Attender: Lizett Nixon/Chantel/Re indl 06/14/2020 12:23:00 AM EST [facility] ([facility] Outpatient Attender: Lizett Nixon/Ionia/Khoa/Re indl 06/13/2020 12:23:00 AM EST [facility] ([facility] Outpatient Attender: Lizett Nixon/[place]/Khoa/Re indl 06/12/2020 12:23:00 AM EST [facility] ([facility]) Outpatient Referrer: Bethany Felix MD 06/11/2020 09:36:00 AM EST Pleural effusion, not elsewhere classified [facility] Pleural effusion, not elsewhere classifi ed Outpatient Attender: Lizett Nixon/[place]/Khoa/Re indl 06/10/2020 12:23:00 AM EST [facility] ([facility] Outpatient Attender: Lizett Nixon/[place]/Khoa/Re indl 06/09/2020 12:23:00 AM EST [facility] ([facility] Outpatient Attender: Lizett Nixon/[place]/Khoa/Re indl 06/08/2020 12:23:00 AM EST [facility] ([facility] Outpatient Admitter: Bethany Felix MDReferrer: Bethany Felix MD 06/08/2020 12:00:00 AM EST Secondary malignant neoplasm of unspecified site [facility] Secondary malignant neoplasm of unspecif ied site Outpatient Attender: Kike Nixon/[place]/Khoa/R eindl 06/01/2020 09:00:00 AM EST [facility] ([facility] Outpatient Attender: Julio Reyes MDReferrer: Stevan Talamantes MD [email or web address] 05/28/2020 12:00:00 AM EST - 05/28/2020 10:45:33 AM EST [facility] Outpatient<td ID="encounterTypeDescripti onID0">STANDARD OV</td><td>Esha Talamantes MD</td><td>[facility]</td><td>05/20/2020</td><td>8:34AM</td><td>05/07/2020 11:59PM</td><td><content ID="encounterDiagnosisID0-0">Working Diagnosis of Abdominal Pain</content>, <content ID="encounterDiagnosisID0-1">Working Diagnosis of Abdominal Pain in the Central Upper Belly (Epigastric)</content>, <content ID="encounterDiagnosisID0-2">Chest Pain</content>, <content ID="encounterDiagnosisID0-3">Hypoxia</content></td> Attender: Esha Talamantes MD [facility], 05/20/2020 08:34:00 AM EST - 05/07/2020 11:59:00 PM EST HypoxiaChest PainWorking Diagnosis of Ab dominal Pain in the Central Upper Belly (Epigastric)Working Diagnosis of Abdominal Pain [place] ([facility]) Hypoxia Chest Pain Working Diagnosis of Abdominal Pain in t he Central Upper [place]ly (Epigastric) Working Diagnosis of Abdominal Pain Outpatient Attender: Esha Talamantes MDConsultant: Esha branch MD 05/07/2020 09:30:00 AM EST - 05/07/2020 10:30:00 AM EST [facility] Outpatient<td ID="encounterTypeDescripti onID1">STANDARD OV</td><td>Esha Talamantes MD</td><td>[facility]</td><td>05/07/2020</td><td>8:07AM</td><td>9:08AM</td><td><content ID="encounterDiagnosisID1-0">Acute Infective Exacerbation of Chronic Obstructive Airways Disease</content>, <content ID="encounterDiagnosisID1-1">Nicotine Dependence Uncomplicated</content>, <content ID="encounterDiagnosisID1- 2">Atypical Chest Pain</content></td> Attender: Esha Talamantes MD [facility], 05/07/2020 08:07:00 AM EST - 05/07/2020 09:08:00 AM ES T Atypical Chest PainNicotine Dependence UncomplicatedAcute Infective Exacerbation of Chronic Obstructive Airways DiseaseAtypical Chest PainNicotine Dependence UncomplicatedAcute Infective Exacerbation of Chronic Obstructive Airways Disease Atypical Chest PainNicotine Dependence UncomplicatedAcute Infective Exacerbation of Chronic Obstructive Airways Disease [place] ([facility]) Atypical Chest Pain Nicotine Dependence Uncomplicated Acute Infective Exacerbation of Chronic Obstructive Airways Disease Atypical Chest Pain Nicotine Dependence Uncomplicated Acute Infective Exacerbation of Chronic Obstructive Airways Disease Atypical Chest Pain Nicotine Dependence Uncomplicated Acute Infective Exacerbation of Chronic Obstructive Airways Disease Outpatient Attender: Esha Talamantes MDConsultant: Esha branch MD 04/30/2020 08:24:00 AM EST - 04/30/2020 09:24:00 AM EST [facility] Outpatient<td ID="encounterTypeDescripti onID2">HOSP I/P F/U</td><td>Esha Talamantes MD</td><td>[facility],</td><td>04/22/2020</td><td>10:05AM</td><td>11:03AM</td><td><content ID="encounterDiagnosisID2-0">Vitreous Floaters Right Eye</content>, <content ID="encounterDiagnosisID2-1">Chronic Obstructive Pulmonary Disease</content>, <content ID="encounterDiagnosisID2-2">Essential Hypertension Benign</content>, <content ID="encounterDiagnosisID2-3">Hyperlipidemia</content>, <content ID="encounterDiagnosisID2-4">Diabetes Mellitus Type 2 in Obese</content>, <content ID="encounterDiagnosisID2-5">Lung Mass</content>, <content ID="encounterDiagnosisID2-6">Fatigue</content></td> Attender: Esha Talamantes MD [facility], 04/22/2020 10:05:00 AM EST - [...] DiseaseHyperlipidemiaChronic Obstructive Pulmonary DiseaseHyperlipidemiaChronic Obstructive Pulmonary Disease [place] ([facility]) Fatigue Lung Mass Diabetes Mellitus Type 2 [...] 04/12/2020 11:42:00 AM EDT CHEST PAIN,COPD EXACERBATION [facility] CHEST PAIN,COPD EXACERBATION Patient discharged. Outpatient<td ID="encounterTypeDescripti onID3">RX UPDATE</td><td>Esha Talamantes MD</td><td>[facility]</td><td>11/20/2019</td><td>08/20/2019 11:10AM</td><td>08/20/2019 11:59PM</td><td></td> Attender: Esha Talamantes MD [facility] 08/20/2019 11:10:00 AM EST - 08/20/2019 11:59:00 PM [facility] ([facility]) Outpatient<td ID="encounterTypeDescripti onID4">ANNUAL PHYSICAL EXAM</td><td>Esha Talamantes MD</td><td>[facility]</td><td>08/20/2019</td><td>8:13AM</td><td>9:35AM</td><td><content ID="encounterDiagnosisID4-0">Fatigue</content>, <content ID="encounterDiagnosisID4-1">Hypogonadism</content>, <content ID="encounterDiagnosisID4-2">Hyperlipidemia</content>, <content ID="encounterDiagnosisID4-3">Benign Prostatic Hypertrophy</content>, <content ID="encounterDiagnosisID4-4">Diabetes Mellitus Type 2 in Nonobese</content>, <content ID="encounterDiagnosisID4-5">Routine History & Physical Senior Citizen with Abnormal Findings</content></td> Attender: Esha Talamantes MD [facility], 08/20/2019 08:13:00 AM EST - 08/20/2019 09:35:00 [...] in NonobeseBenign Prostatic HypertrophyHypogonadismFatigue HyperlipidemiaHyperlipidemiaHyperlipidemiaHyperlipidemiaHyperlipidemiaHyperlipid noe [place] ([facility]) Routine History & Physical Senior Citize n [...] 07:43:00 AM EST - 08/12/2019 08:43:00 AM [facility] Outpatient<td ID="encounterTypeDescripti onID5">STANDARD OV</td><td>Esha Talamantes MD</td><td>[facility],</td><td>08/07/2019</td><td>1:54PM</td><td>3:09PM</td><td><content ID="encounterDiagnosisID5-0">Cervicalgia</content>, <content ID="encounterDiagnosisID5-1">Chronic Obstructive Pulmonary Disease</content>, <content ID="encounterDiagnosisID5-2">Hypercalcemia</content>, <content ID="encounterDiagnosisID5-3">Bursitis Olecranon Left</content>, <content ID="encounterDiagnosisID5-4">Psoriasis</content>, <content ID="encounterDiagnosisID5-5">Diabetes Mellitus Secondary with Peripheral Neuropathy</content></td> Attender: Esha Talamantes MD [facility] 08/07/2019 01:54:00 PM EST - 08/07/2019 03:09:00 [...] DiseaseChronic Obstructive Pulmonary DiseaseChronic Obstructive Pulmonary Disease [place] ([facility]) Diabetes Mellitus Secondary with Periphe ral Neuropathy [...] Obstructive Pulmonary Disease Outpatient 07/07/2019 03:17:00 PM [facility] Emergency Attender: MALA PANIAGUA MDConsultant: Ehsa branch MD 07/07/2019 01:18:00 PM [facility] - 07/07/2019 03:37:00 PM [facility] Patient discharged. Outpatient<td ID="encounterTypeDescripti onID6">STANDARD OV</td><td>Esha Talamantes MD</td><td>[facility],</td><td>06/25/2019</td><td>10:55AM</td><td>11:58AM</td><td><content ID="encounterDiagnosisID6-0">Chronic Obstructive Pulmonary Disease</content>, <content ID="encounterDiagnosisID6-1">Hyperlipidemia</content>, <content ID="encounterDiagnosisID6-2">Diabetes Mellitus Type 2</content>, <content ID="encounterDiagnosisID6-3">Obesity</content>, <content ID="encounterDiagnosisID6-4">Diabetes Mellitus Type 2 with Coma</content>, <content ID="encounterDiagnosisID6-5">Hypogonadism</content></td> Attender: Esha Talamantes MD [facility], 06/25/2019 10:55:00 AM EST - [...] DiseaseHyperlipidemiaChronic Obstructive Pulmonary DiseaseHyperlipidemiaChronic Obstructive Pulmonary Disease [place] ([facility]) Hypogonadism Diabetes Mellitus Type 2 with Coma [...] Pulmonary Disease Outpatient<td ID="encounterTypeDescripti onID7">Prescription Refill (Telephone, [phone]</td><td>Esha Talamantes MD</td><td></td><td>05/30/2019</td><td>02/04/2019 2:09PM</td><td>02/04/2019 11:59PM</td><td></td> Attender: Esha Talamantes MD 05/30/2019 02:09:00 PM EST - 02/04/2019 11:59:00 PM EDT [place] ([facility]) Functional Status Immunizations Vaccine Date Status Description Data Source(s) pneumococcal polysaccharide PPV23 08/07/2019 03:08:00 PM EST com pleted PCV (Pneumovax 23) ages 2+ 1 08/07/2019 Complete (Ref used - Patient objection) [facility] ([facility]) Medications Medication Brand Name Start Date Product [...] 1 TWICE A DAY THEREAFTER SOLD: 06/14/2020 [employer] pantoprazole 40 MG Delayed Release Oral Tablet PANTOPRAZOLE SODIUM 06/14/2020 12:00:00 AM EST tablet,delayed release (DR/EC) 30 T CARY ONE TABLET BY MOUTH EVERY DAY TAKE ONE TABLET BY MOUTH EVERY DAY SOLD: 06/14/2020 [facility] 100 mg 06/14/2020 12:00:00 AM EST capsule 60 TAKE ONE CAPSULE BY MOUTH TWICE A DAY TAKE ONE CAPSULE BY MOUTH TWICE A DAY SOLD: 06/14/2020 [facility] 7 ACTUAT umeclidinium 0.0625 MG/ACTUAT Dry Powder Inha ler [Incruse] Incruse Ellipta 06/01/2020 12:00:00 AM EST RESPIRATORY active [facility] ([facility], ) Prednisone 10 MG Oral Tablet Prednisone 06/01/2020 12:00:00 AM EST ORAL completed [facility] ([facility], ) Metformin hydrochloride 500 MG Oral Tablet metFORMIN ( GLUCOPHAGE) 500 MG tablet metFORMIN (GLUCOPHAGE) 500 MG tablet 05/20/2020 12:00:00 AM EST 1 { tbl} Oral active Take 1 tablet by mouth 2 (two) times a day [facility] Lancets Ultra Fine Miscellaneous Lancets Ultra Fine Miscella neous 05/20/2020 12:00:00 AM EST active Lancets Ultra Fine [place] ([facility]) IGlucose Test Strips In Vitro IGlucose Test Strips In Vitro 05/20/2020 12:00:00 AM EST active IGlucose Test Str ips [place] ([facility]) Albuterol 0.833 MG/ML / Ipratropium Brom delmer 0.167 MG/ML Inhalant Solution ipratropium-albuterol (DUO-NEB) 0.5-2.5 mg/mL nebulizer ipratropium-albuterol (DUO-NEB) 0.5-2.5 mg/mL nebulizer 05/20/2020 12:00:00 AM EST active INHALE 1 VIAL VIA NEB QID PRN [facility] Triamcinolone Acetonide 1 MG/ML Topical Lotion Triamcinolone Acetonide 0.1% External Lotion Triamcinolone Acetonide 0.1% External Lotion 0 12:00:00 AM EST active triamcinolone ac etonide 1 MG/ML Topical Lotion [place] ([facility]) atorvastatin 20 MG Oral Tablet Atorvastatin Calcium 20 MG Oral Tablet Atorvastatin Calcium 20 MG Oral Tablet 05/20/2020 12:00:00 AM EST 1 active [facility]atin [facility] MG [facility] Metformin hydrochloride 500 MG Oral Tablet metFORMIN H Cl 500 MG Oral Tablet metFORMIN HCl 500 MG Oral Tablet 05/20/2020 12:00:00 AM EST active metformin hydrochloride 500 MG Oral Tablet [place] ([facility]) 60 ACTUAT Budesonide 0.16 MG/ACTUAT / fo rmoterol fumarate 0.0045 MG/ACTUAT Metered Dose Inhaler [Symbicort] Symbicort 160-4.5 MCG/ACT Inhalation Aerosol Symbicort 160-4.5 MCG/ACT Inhalation Aerosol 05/20/2020 12:00:00 AM EST active 60 ACTUAT budeso nide 0.16 MG/ACTUAT / formoterol fumarate 0.0045 MG/ACTUAT Metered Dose Inhaler [Symbicort] [facility]) 200 ACTUAT Albuterol 0.09 MG/ACTUAT Mete red Dose Inhaler [ProAir] ProAir HFA 108 (90 Base) MCG/ACT Inhalation Aerosol Solution ProAir HFA 108 (90 Base) MCG/ACT Inhalation Aerosol Solution 05/20/2020 12:00:00 AM EST 18 active [id number] 200 ACTUAT albuterol 0.09 MG/ACTUAT Metered Dose Inhaler [ProAir] [place] ([facility]) Lisinopril 5 MG Oral Tablet Lisinopril 5 MG Oral Tablet 07/2019 12:00:00 AM EST active lisinopril 5 MG O ral Tablet [place] ([facility]) Lisinopril 5 MG Oral Tablet lisinopril (PRINIVIL,ZESTR IL) 5 MG tablet lisinopril (PRINIVIL,ZESTRIL) 5 MG tablet 05/19/2020 12:00:00 AM EST 1 {tbl} O ral active Take 1 tablet by mouth daily [facility] Lisinopril 5 MG Oral Tablet Lisinopril 5 MG Oral Tablet 04/20 12:00:00 AM EST aborted lisinopril 5 MG Oral Tablet [place] ([facility]) Prednisone 10 MG Oral Tablet predniSONE 10 MG Oral Tab let predniSONE 10 MG Oral Tablet 05/07/2020 12:00:00 AM EST aborted prednisone 10 MG Oral Tablet [facility]) doxycycline hyclate 100 MG Oral Capsule Doxycycline Hy clate 100 MG Oral Capsule Doxycycline Hyclate 100 MG Oral Capsule 05/06/2020 12:00:00 AM EST active doxycycline hyclate 100 MG Oral Capsule [facility]) 60 ACTUAT Budesonide 0.16 MG/ACTUAT / fo rmoterol fumarate 0.0045 MG/ACTUAT Metered Dose Inhaler [Symbicort] Symbicort 160-4.5 MCG/ACT Inhalation Aerosol Symbicort 160-4.5 MCG/ACT Inhalation Aerosol 04/22/2020 12:00:00 AM EST aborted 60 ACTUAT budeso nide 0.16 MG/ACTUAT / formoterol fumarate 0.0045 MG/ACTUAT Metered Dose Inhaler [Symbicort] [facility]) 200 ACTUAT Albuterol 0.09 MG/ACTUAT Mete red Dose Inhaler [ProAir] ProAir HFA 108 (90 Base) MCG/ACT Inhalation Aerosol Solution ProAir HFA 108 (90 Base) MCG/ACT Inhalation Aerosol Solution 04/22/2020 12:00:00 AM EST 18 aborted [id number] 200 ACTUAT albuterol 0.09 MG/ACTUAT Metered Dose Inhaler [ProAir] [facility]) Metformin hydrochloride 500 MG Oral Tablet metFORMIN H Cl 500 MG Oral Tablet metFORMIN HCl 500 MG Oral Tablet 04/22/2020 12:00:00 AM EST aborted metformin hydrochloride 500 MG Oral Tablet [place] ([facility]) atorvastatin 20 MG Oral Tablet Atorvastatin Calcium 20 MG Oral Tablet Atorvastatin Calcium 20 MG Oral Tablet 04/22/2020 12:00:00 AM EST 1 aborted atorvastatin 20 MG Oral Tablet [facility]) Lisinopril 5 MG Oral Tablet Lisinopril 5 MG Oral Tablet 09/2019 12:00:00 AM EST 1 aborted lisinopril 5 MG Oral Tablet [facility]) Dextromethorphan Hydrobromide 2 MG/ML / Guaifenesin 20 MG/ML Oral Solution Dextromethorphan-Guaifenesin Dextromethorphan-Guaifenesin 04/12/2020 10:03:10 AM EDT 10 ML active [facility] Albuterol 0.833 MG/ML / Ipratropium Brom delmer 0.167 MG/ML Inhalant Solution Ipratropium-Albuterol Ipratropium-Albuterol 04/12/2020 10:02:36 AM EDT 3 ML active [facility] Prednisone 20 MG Oral Tablet Prednisone 04/12/2020 10:01:33 AM EDT 40 MG active [facility] Azithromycin 500 MG Oral Tablet Azithromycin 04/12/2020 10:00:43 AM EDT 500 MG active [facility] atorvastatin 20 MG Oral Tablet Atorvastatin Atorvastatin 04/11/2020 09:16:15 PM EDT 20 MG active [facility] Bealcdmygmaf-Qhzjadzs-Zsgayx (Centrum Silver) Tablet 04/11/2020 09:16:15 PM EDT 1 TAB active [facility] atorvastatin 20 MG Oral Tablet Atorvastatin Atorvastatin 04/11/2020 09:16:15 PM EDT 20 MG active [facility] Metformin hydrochloride 500 MG Oral Tablet Metformin 04/11 09:16:15 PM EDT 500 MG active [facility] Aspirin 04/11/2020 09:16:15 PM EDT 81 MG active [facility] Aspirin 04/11/2020 09:16:15 PM EDT 81 MG active [facility] 120 ACTUAT Budesonide 0.16 MG/ACTUAT / f ormoterol fumarate 0.0045 MG/ACTUAT Metered Dose Inhaler Budesonide-Formoterol (Symbicort) 160-4.5 mcg/actuation HFA aerosol inhaler Budesonide-Formoterol (Symbicort) 160-4. 5 mcg/actuation HFA aerosol inhaler 04/11/2020 09:16:15 PM EDT 2 PUFFS activ e [facility] Metformin hydrochloride 500 MG Oral Tablet Metformin 04/11 09:16:15 PM EDT 500 MG active [facility] 120 ACTUAT Budesonide 0.16 MG/ACTUAT / f ormoterol fumarate 0.0045 MG/ACTUAT Metered Dose Inhaler Budesonide-Formoterol (Symbicort) 160-4.5 mcg/actuation HFA aerosol inhaler Budesonide-Formoterol (Symbicort) 160-4. 5 mcg/actuation HFA aerosol inhaler 04/11/2020 09:16:15 PM EDT 2 PUFFS activ e [facility] Albuterol Sulfate (Proair Hfa) 90 mcg/actuation HFA aerosol inhaler 04/11/2020 09:16:15 PM EDT 2 PUFFS active [facility] Wbfplxahgmhz-Eyjfwnmm-Tcjzhn 04/11/2020 09:16:15 PM EDT 1 T AB active [facility] Albuterol Sulfate (Proair Hfa) 90 mcg/actuation HFA aerosol inhaler 04/11/2020 09:16:15 PM EDT 2 PUFFS active [facility] 60 ACTUAT Budesonide 0.16 MG/ACTUAT / fo rmoterol fumarate 0.0045 MG/ACTUAT Metered Dose Inhaler [Symbicort] Symbicort 160-4.5 MCG/ACT Inhalation Aerosol Symbicort 160-4.5 MCG/ACT Inhalation Aerosol 11/20/2019 12:00:00 AM EDT aborted 60 ACTUAT budeso nide 0.16 MG/ACTUAT / formoterol fumarate 0.0045 MG/ACTUAT Metered Dose Inhaler [Symbicort] [place] ([facility]) Lisinopril 5 MG Oral Tablet Lisinopril 5 MG Oral Tablet 08/2019 12:00:00 AM EDT 1 aborted lisinopril 5 MG Oral Tablet [place] ([facility]) 200 ACTUAT Albuterol 0.09 MG/ACTUAT Mete red Dose Inhaler [ProAir] ProAir HFA 108 (90 Base) MCG/ACT Inhalation Aerosol Solution ProAir HFA 108 (90 Base) MCG/ACT Inhalation Aerosol Solution 10/24/2019 12:00:00 AM EDT 18 aborted [id number] 200 ACTUAT albuterol 0.09 MG/ACTUAT Metered Dose Inhaler [ProAir] [place] ([facility]) Lisinopril 5 MG Oral Tablet Lisinopril 5 MG Oral Tablet 08/2019 12:00:00 AM EST 1 aborted lisinopril 5 MG Oral Tablet [place] ([facility]) Triamcinolone Acetonide 1 MG/ML Topical Lotion Triamcinolone Acetonide 0.1% External Lotion Triamcinolone Acetonide 0.1% External Lotion 0 12:00:00 AM EST aborted triamcinolone a cetonide 1 MG/ML Topical Lotion [place] ([facility]) 200 ACTUAT Albuterol 0.09 MG/ACTUAT Mete red Dose Inhaler [ProAir] ProAir HFA 108 (90 Base) MCG/ACT Inhalation Aerosol Solution ProAir HFA 108 (90 Base) MCG/ACT Inhalation Aerosol Solution 08/20/2019 12:00:00 AM EST 18 aborted [id number] 200 ACTUAT albuterol 0.09 MG/ACTUAT Metered Dose Inhaler [ProAir] [place] ([facility]) 5000 MG Testosterone 0.01 MG/MG Topical Gel [Androgel] AndroGel 50 MG/5GM (1%) Transdermal AndroGel 50 MG/5GM (1%) Transdermal 08/20/2019 12:00:00 AM EST aborted 5000 MG testosterone 0.01 MG/MG Topical Gel [Androgel] [place] ([facility]) IGlucose Test Strips In Vitro IGlucose Test Strips In Vitro 08/20/2019 12:00:00 AM EST aborted IGlucose Test St rips [place] ([facility]) atorvastatin 20 MG Oral Tablet Atorvastatin Calcium 20 MG Oral Tablet Atorvastatin Calcium 20 MG Oral Tablet 08/20/2019 12:00:00 AM EST 1 aborted atorvastatin 20 MG Oral Tablet [facility]) 60 ACTUAT Budesonide 0.16 MG/ACTUAT / fo rmoterol fumarate 0.0045 MG/ACTUAT Metered Dose Inhaler [Symbicort] Symbicort 160-4.5 MCG/ACT Inhalation Aerosol Symbicort 160-4.5 MCG/ACT Inhalation Aerosol 08/20/2019 12:00:00 AM EST aborted 60 ACTUAT budeso nide 0.16 MG/ACTUAT / formoterol fumarate 0.0045 MG/ACTUAT Metered Dose Inhaler [Symbicort] [place] ([facility]) Lancets Ultra Fine Miscellaneous Lancets Ultra Fine Miscella neous 08/20/2019 12:00:00 AM EST aborted Lancets Ultra Fine [place] ([facility]) Metformin hydrochloride 500 MG Oral Tablet metFORMIN H Cl 500 MG Oral Tablet metFORMIN HCl 500 MG Oral Tablet 08/20/2019 12:00:00 AM EST aborted metformin hydrochloride 500 MG Oral Tablet [place] ([facility]) Lancets Ultra Fine Miscellaneous Lancets Ultra Fine Miscella neous 06/25/2019 12:00:00 AM EST aborted Lancets Ultra Fine [place] ([facility]) IGlucose Test Strips In Vitro IGlucose Test Strips In Vitro 06/25/2019 12:00:00 AM EST aborted IGlucose Test St rips [place] ([facility]) Metformin hydrochloride 500 MG Oral Tablet metFORMIN H Cl 500 MG Oral Tablet metFORMIN HCl 500 MG Oral Tablet 06/25/2019 12:00:00 AM EST aborted metformin hydrochloride 500 MG Oral Tablet [place] ([facility]) atorvastatin 20 MG Oral Tablet Atorvastatin Calcium 20 MG Oral Tablet Atorvastatin Calcium 20 MG Oral Tablet 06/25/2019 12:00:00 AM EST 1 aborted atorvastatin 20 MG Oral Tablet [facility] ([facility]) 60 ACTUAT Budesonide 0.16 MG/ACTUAT / fo rmoterol fumarate 0.0045 MG/ACTUAT Metered Dose Inhaler [Symbicort] Symbicort 160-4.5 MCG/ACT Inhalation Aerosol Symbicort 160-4.5 MCG/ACT Inhalation Aerosol 06/25/2019 12:00:00 AM EST aborted 60 ACTUAT budeso nide 0.16 MG/ACTUAT / formoterol fumarate 0.0045 MG/ACTUAT Metered Dose Inhaler [Symbicort] [place] ([facility]) Metformin hydrochloride 500 MG Oral Tablet metFORMIN H Cl 500 MG Oral Tablet metFORMIN HCl 500 MG Oral Tablet 05/30/2019 12:00:00 AM EST aborted metformin hydrochloride 500 MG Oral Tablet [place] ([facility]) 200 ACTUAT Albuterol 0.09 MG/ACTUAT Mete red Dose Inhaler [ProAir] ProAir HFA 108 (90 Base)MCG/ACT Inhalation Aerosol Solution ProAir HFA 108 (90 Base)MCG/ACT Inhalation Aerosol Solution 01/24/2019 12:00:00 AM EDT 18 aborted [id number] 200 ACTUAT albuterol 0.09 MG/ACTUAT Metered Dose Inhaler [ProAir] [place] ([facility]) Metformin hydrochloride 500 MG Oral Tablet metFORMIN H Cl 500MG Oral Tablet metFORMIN HCl 500MG Oral Tablet 01/24/2019 12:00:00 AM EDT aborted metformin hydrochloride 500 MG Oral Tablet [place] ([facility]) IGlucose Test Strips In Vitro IGlucose Test Strips In Vitro 01/24/2019 12:00:00 AM EDT [facility] Triamcinolone Acetonide 1 MG/ML Topical Lotion Triamcinolone Acetonide 0.1% External Lotion Triamcinolone Acetonide 0.1% External Lotion 9 12:00:00 AM EDT aborted triamcinolone a cetonide 1 MG/ML Topical Lotion [place] ([facility]) Lancets Ultra Fine Miscellaneous Lancets Ultra Fine Miscella neous 01/24/2019 12:00:00 AM EDT aborted Lancets Ultra Fine [place] ([facility]) 30 ACTUAT fluticasone furoate 0.1 MG/ACT UAT / vilanterol 0.025 MG/ACTUAT Dry Powder Inhaler [Breo] Breo Ellipta 100-25MCG/INH Inhalation Aerosol Powder Breath Activated Breo Ellipta 100-25MCG/INH Inhalation Ae rosol Powder Breath Activated 01/24/2019 12:00:00 AM EDT aborted 30 ACTUAT fluticasone furoate 0.1 MG/ACTUAT / vilanterol 0.025 MG/ACTUAT Dry Powder Inhaler [Breo] [place] ([facility]) atorvastatin 20 MG Oral Tablet Atorvastatin Calcium 20 MG Oral Tablet Atorvastatin Calcium 20MG Oral Tablet 01/24/2019 12:00:00 AM EDT 1 aborted atorvastatin 20 MG Oral Tablet [facility] ([facility]) pantoprazole 40 MG Delayed Release Oral Tablet pantoprazole (PROTONIX) 40 MG tablet pantoprazole (PROTONIX) 40 MG tablet 04/16/2016 12:00:00 AM EDT aborted [facility] atorvastatin 40 MG Oral Tablet atorvastatin (LIPITOR) 40 MG tablet atorvastatin (LIPITOR) 40 MG tablet 10/10/2014 12:00:00 AM EDT aborted [facility] 200 ACTUAT Levalbuterol 0.045 MG/ACTUAT Metered Dose Inhaler [Xopenex] XOPENEX HFA 45 MCG/ACT inhaler XOPENEX HFA 45 MCG/ACT inhaler 04/23/2014 12:00:00 AM EST aborted [facility] ALBUTEROL IN aborted prn [facility] Nitroglycerin 0.4 MG Sublingual Tablet n itroglycerin (NITROSTAT) 0.4 MG SL tablet nitroglycerin (NITROSTAT) 0.4 MG SL tablet aborted sl prn cp-take up to 3 tabs 5 minutes apart to resolve cp [facility] DAILY DIONNE (THERAGRAN) per tablet 21296-320-85 Oral aborted Take by mouth [facility] Cholecalciferol 2000 UNT Oral Capsule Ch olecalciferol (VITAMIN D3) 2000 UNITS capsule Cholecalciferol (VITAMIN D3) 2000 UNITS capsule Oral aborted Take by mouth [facility] 24 HR metoprolol succinate 25 MG Extende d Release Oral Tablet metoprolol (TOPROL-XL) 25 MG 24 hr tablet metoprolol (TOPROL-XL) 25 MG 24 hr tablet 25 mg Oral aborted Take 25 mg by mouth [facility] Aspirin 325 MG Oral Tablet aspirin 325 MG tablet aspirin 325 MG tab let 81 mg Oral aborted Take 81 mg by mouth [facility] Insurance Providers Payer name Policy type / Coverage type Policy ID Covered democrat ID Covered democrat's relationship to nino Policy Nino Plan Information CELESTINO [id number] SP [id number] CELESTINO [id number] SP [id number] CELESTINO CARE ID O [id number] O 74 [id number] CELESTINO EXCHANGE U [id number] Self [id number] [facility] W [id number] Empl [id number] CELESTINO MEDICAID [id number] Emperatriz 7 [id number] CELESTINO MEDICAID [id number] [place] Care [place] Other 0 Self 0 [place] Other 0 Self 0 CELESTINO CARE [place] - [id number] 18 [id number] [place] Other 0 Self 0 [place] Other 0 Self 0 [place] Other 0 Self 0 [place] Other 0 Self 0 [place] Other 0 Self 0 [place] Other 0 Self 0 [place] Other 0 Self 0 [place] [id number] [place] Other 0 Self 0 [place] Other 0 Self 0 [place] Other 0 Self 0 [place] Other 0 Self 0 [place] Other 0 Self 0 [place] Other 0 Self 0 [place] Other 0 Self 0 [place] [id number] Self [id number] STATE INS FUND [facility] [id number] Empl [id number] STATE INS FUND W [id number] Empl [id number] ID State Insurance Fund Workers Compensation [id number] Self [id number] 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 [id number] Self [id number] [place] Commercial Self ID State Insurance Fund Workers Compensation Self CELESTINO MEDICAID [id number] Emperatriz 7 [id number] MEDICAID [id number] Emperatriz [id number] P[place] [id number] Emperatriz [id number] [place] Commercial Self STATE INS FUND W [id number] Empl [id number] [place] O [id number] S [id number] STATE INSURANCE FUND O [id number] S [id number] STATE INSURANCE FUND O [id number] S [id number] [employer] [id number] SP [id number] POMCO [id number] SP [id number] Problems, Conditions, and Diagnoses Code Display Name Description Problem Type Effective Dates Data Source(s) 79364561 Type 1 diabetes mellitus Type 1 diabetes mellitus Prob rose 06/21/2020 12:00:00 AM EST [place] ([facility] ) R06.02 Shortness of breath Shortness of breath [id number] 1 07/29/2019 12:00:00 AM EST [facility] R91.8 Mass of upper lobe of right lung Mass of upper l obe of right lung [id number] 05/28/2020 12:00:00 AM EST [facility] J90 Pleural effusion, not elsewhere classifi ed Pleural effusion, not elsewhere classified Diagnosis 06/11/2020 09:36:00 AM EST [facility] C79.9 Secondary malignant neoplasm of unspecif ied site Secondary malignant neoplasm of unspecified site Diagnosis 06/08/2020 08:48:00 AM [facility] I48.0 Paroxysmal atrial fibrillation Paroxysmal atrial fibri llation Diagnosis 05/28/2020 08:55:00 AM EST [facility] R06.02 Shortness of breath Shortness of breath Diagnosis 1 07/29/2019 08:55:00 AM [facility] R91.8 Other nonspecific abnormal finding of maira ng field Other nonspecific abnormal finding of maira Diagnosis 05/28/2020 08:55:[address] [facility] R07.9 Chest pain, unspecified Chest pain, unspecified Diagno sis 05/28/2020 08:55:00 AM [facility] R079 Chest pain, unspecified Chest pain, unspecified Diagno sis 05/07/2020 09:30:00 AM [facility] I10 Essential (primary) hypertension Essential (primary) h ypertension Diagnosis 04/30/2020 08:24:00 AM [facility] E782 Mixed hyperlipidemia Mixed hyperlipidemia Diagnosis 04/30/2020 08:24:00 AM [facility] R5383 Other fatigue Other fatigue Diagnosis 04/30/2020 08:24:00 AM [facility] Z125 Encounter for screening for malignant ne oplasm of prostate Encounter for screening for malignant neoplasm of prostate Diagnosis 0 07:43:00 AM [facility] E291 Testicular hypofunction Testicular hypofunction Diagno sis 08/12/2019 07:43:00 AM [facility] E8352 Hypercalcemia Hypercalcemia Diagnosis 08/12/2019 07:43:00 AM [facility] E60650 Personal history of nicotine dependence Personal history of nicotine dependence Diagnosis 07/07/2019 01:18:00 PM [facility] 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 (current) use of oral hypoglycemic drugs Diagnosis 07/07/2019 01:18:00 PM [facility] Z7982 care home (current) use of aspirin care home (cu rrent) use of aspirin Diagnosis 07/07/2019 01:18:00 PM [facility] J449 Chronic obstructive pulmonary disease, u nspecified Chronic obstructive pulmonary disease, unspecified Diagnosis 07/07/2019 01:18:00 PM [facility] E119 Type 2 diabetes mellitus without complic ations Type 2 diabetes mellitus without complications Diagnosis 07/07/2019 01:18:00 PM [facility] M7022 Olecranon bursitis, left elbow Olecranon bursitis, lef t elbow Diagnosis 07/07/2019 01:18:00 PM [facility] R2232 Localized swelling, mass and lump, left upper limb Localized swelling, mass and lump, left upper limb Diagnosis 07/07/2019 01:18:00 PM [facility] Y9389 Activity, other specified Activity, other specified Di agnosis 07/07/2019 01:18:00 PM [facility] Surgeries/Procedures Procedure Description Date Indications Data Source(s) INSERTION INDWELLING TUNNELED PLEURAL CATHETER 020 12:00:00 AM EST [place] ([facility], ) DEMO&/EVAL OF PT UTILIZ AERSL GEN/NEB/INHLR/IPPB 06/01 12:00:00 AM EST [facility] ([facility], ) ECG ROUTINE ECG W/LEAST 12 LDS W/I&R POCT AMB EKG Routine 05/28/2020 9:15 AM EST Chest pain, unspecified type 05/28/2020 02:15:00 PM EST [place] pain, unspecified type [facility] Chest pain, unspecified type ELECTROCARDIOGRAM, COMPLETE (EKG) ELECTROCARDIOGRAM, COMPLET E (EKG) 05/07/2020 12:00:00 AM EST [place] ([facility]) ELECTROCARDIOGRAM, COMPLETE (EKG) ELECTROCARDIOGRAM, COMPLET E (EKG) 05/07/2020 12:00:00 AM EST [place] ([facility]) Computed tomography angiography of thorax (procedure) 04/11/2020 08:44:00 PM EDT [facility] l Computed tomography angiography of thorax (procedure) 04/11/2020 08:44:00 PM EDT [facility] l Plain chest X-ray (procedure) 04/11/2020 05:34:00 PM E DT [facility] CT Head without contrast 04/11/2020 05:34:00 PM EDT [facility] Plain chest X-ray (procedure) 04/11/2020 05:34:00 PM E DT [facility] CT Head without contrast 04/11/2020 05:34:00 PM EDT [facility] Blood Culture 04/11/2020 12:00:00 AM [facility] SARS-CoV-2 (PCR) Interpretation 04/11/2020 12:00:00 AM [facility] Blood Culture 04/11/2020 12:00:00 AM [facility] SARS-CoV-2 (PCR) Interpretation 04/11/2020 12:00:00 AM [facility] ELECTROCARDIOGRAM, COMPLETE (EKG) ELECTROCARDIOGRAM, COMPLET E (EKG) 08/20/2019 12:00:00 AM [facility]) FECAL BLOOD ASSAY TEST (waived laboratory) FECAL BLOOD ASSAY TEST (waived laboratory) 08/20/2019 12:00:00 AM [facility]) O2 SATURATION> 88% /OLI>55 O2 SATURATION> 88% /OLI>55 2019 12:00:00 AM [facility]) FECAL BLOOD ASSAY TEST FECAL BLOOD ASSAY TEST 08/20/2019 12:00:00 A M [facility]) ELECTROCARDIOGRAM, COMPLETE (EKG) ELECTROCARDIOGRAM, COMPLET E (EKG) 08/20/2019 12:00:00 AM [facility]) O2 SATURATION> 88% /OLI>55 O2 SATURATION> 88% /OLI>55 2019 12:00:00 AM [facility]) Blood culture for bacteria, including anaerobic screen (proc edure) 07/07/2019 12:00:00 AM [facility] l Gram stain microscopy (procedure) 07/07/2019 12:00:00 AM [facility] Aerobic microbial culture (procedure) 07/07/2019 12:00 :00 AM [facility] Blood culture for bacteria, including anaerobic screen (proc edure) 07/07/2019 12:00:00 AM [facility] l Gram stain microscopy (procedure) 07/07/2019 12:00:00 AM [facility] Aerobic microbial culture (procedure) 07/07/2019 12:00 :00 AM EST [facility] HbA1c (Glycosolated) (waived laboratory) HbA1c (Glycos olated) (waived laboratory) 06/25/2019 12:00:00 AM [facility] ([facility]) CAPILLARY BLOOD DRAW CAPILLARY BLOOD DRAW 06/25/2019 12:00:00 AM [facility] ([facility]) GLUCOSE (waived laboratory) GLUCOSE (waived laboratory) 12/2019 12:00:00 AM [facility] ([facility]) O2 SATURATION> 88% /OLI>55 O2 SATURATION> 88% /OLI>55 2019 12:00:00 AM [facility] ([facility]) Results ID Date Data Source [id number] 07/03/2020 09:52:00 AM EST [facility] Name Value Range Interpretation Code Description Data Shelly rce(s) Supporting Document(s) SARS-CoV-2 (COVID 19) NEGATIVE - SARS-CoV-2 (COVID19) [facility] This lab was ordered by [facility] a nd reported by [facility]. ID Date Data Source [id number] 06/22/2020 12:00:00 AM EST [facility] Lizett Cooley MD Patient Name: TOLU [id number] Date of : 1955[place] [address] Date of Exam: 06/22/2020#: Fax: [phone] EXAM: [...] rce(s) Supporting Document(s) ID Date Data Source [id number] 06/08/2020 04:28:00 AM EST [facility] Name Value Range Interpretation Code Description Data Shelly rce(s) Supporting Document(s) SARS coronavirus 2 RNA [Presence] in Res piratory specimen by KRISTEN with probe detection [facility] This lab was ordered by [facility] a nd reported by Health System. ID Date Data Source [id number] 06/26/2020 06:36:00 PM [facility] Anatomic Molecular Pathology ReportName: TOLU RATLIFFMRScar: [id number] Number: [id number] Date: 06/08/2020 00:00Received Date: 06/16/2020 09:03Physician(s): BETHANY FELIX MD HAGHIR, SHAHANDEH F,MDCopy To:LIZETT COOLEY,[facility]) ReceivedA: Pleural fluid, Formalin Block [id number] A2 received from [facility] in [place], [place], ROS1 by FISHDiagnosisTEST:ROS1 gene rearrangements by [...] associated with better response to treatmentwith crizotinib. kg/lauraj Electronically Signed By Jhoan Miranda M.D. Attending Pathologist 06/26/2020 18:36:59Reported at [address] [place] [address]. Gross DescriptionMETHODOLOGY:Interphase FISH is performed on paraffin embedded NSCLC utilizing thecombined Babyoye Molecular LSI ROS1(Eliza) and ROS1(Tel) ROS1 Probes: 1)3'-ROS1(Eliza), 557 kb, labeled with SpectrumGreen, and 2) 5'- ROS1(Tel),317kb, labeled with SpectrumOrange. Tumor cells with no TNQ1dadenwmgusvqqo have 2 yellow signals (fused orange and [...] and its performance characteristics weredetermined by the [facility],and it has been authorized for clinical use by [facility]. The test has not been cleared or approved by the U.S. Food andDrug Administration. The analyte specific reagents used in this assay donot require FDA approval. REFERENCES: 1. SHANTELL Juarez, Daisy AT, Theparadise MF et al. Identifying and Targeting NBG1Wpes Fusions in NonSmall Cell Lung Cancer. Clin Cancer Res 2012; 18(17);31006624.2. Iqbal, Severo AT. Novel Targets in Non-Small Cell Lung Cancer:ROS-1 and RET fusions. The Oncologist. 2013;18:865-875.This report may include one or more immunohistochemical stain results thatuse analyte specific reagents. All positive and negative controls havebeen reviewed by the attending pathologist and are satisfactory. The testswere developed and their performance characteristics determined by [facility] Pathology department. They have not been cleared or approved by the USFood and Drug Administration. The FDA has determine d that such clearanceor approval is not necessary. Name Value Range Interpretation Code Description Data Shelly rce(s) Supporting Document(s) ID Date Data Source [id number] 06/25/2020 12:10:00 PM [facility] Anatomic Molecular Pathology ReportName: TOLU RATLIFFMRN: [id number] Number: [id number] Date: 06/08/2020 00:00Received Date: 06/16/2020 09:06Physician(s): BETHANY FELIX MD HAGHIR, SHAHANDEH F,MDCopy To:LIZETT COOLEY,[facility]s) ReceivedA: Pleural fluid, Formalin Block [id number] A2 received from [facility] in [place], [place] BRAF Mutation AnalysisDiagnosisTESTS:BRAF V600E mutation (1799 [...] Miranda M.D. Attending Pathologist 06/25/2020 12:10:33Reported at [address] [place] [address]. Gross DescriptionMETHODOLOGY:BRAF V600E(1799 T>A) mutation at exon [...] theamounts of PCR products, and analyzed by QuantumSphere Q real timeinstrument. The analytical sensitivity (or minimum percentage of mutantDNA needed) is approximately 10% given sufficient DNA input. Test development and its performance characteristics were determined bythe [facility], and has beenauthorized for clinical use by [facility]. Thetest has not been cleared or approved by the U.S. Food and DrugAdministration. The analyte specific reagents used in this assay do notrequire FDA approval. REFERENCES: 1. Dolores S, Milana , Deandre C, et al. Detection of BRAF U278Hctltjnix in colorectal cancer-comparison of automatic sequencing and realtime chemistry methodology. J Mol Diagn. 2006; 8:320194.2. Raul L, Chica REINA, Nayeli N, et al. BRAF mutation analysis in fineneedle aspiration (FNA) cytology of the thyroid. Diagn Mol Pa thol.2006;15:471748.3. Brenda PK, Glen ME, Lelo M, et al. Clinical characteristics ofpatients with lung adenocarcinomas harboring BRAF mutations. J Clin Oncol.2011;29:7429-0884.This report may include one or more immunohistochemical stain results thatuse analyte specific reagents. All positive and negative controls havebeen reviewed by the attending pathologist and are satisfactory. The testswere developed and their performance characteristics determined by [facility] Pathology department. They have not been cleared or approved by the USFood and Drug Administration. The FDA has determined that such clearanceor approval is not necessary. Name Value Range Interpretation Code Description Data Shelly rce(s) Supporting Document(s) ID Date Data Source [id number] 06/25/2020 09:32:00 AM EST [facility] Anatomic Molecular Pathology ReportName: TOLU RATLIFFMRN: [id number] Number: [id number] Date: 06/08/2020 00:00Received Date: 06/16/2020 09:04Physician(s): BETHANY FELIX MD HAGHIR, SHAHANDEH F,MDCopy To:LIZETT COOLEY,[facility]) ReceivedA: Pleural fluid, Formalin Block [id number] A2 received from [facility] in [place], [place] EGFRDiagnosisTEST: EGFR gene mutations (exon 19 [...] indicated. Presence of exon 19 deletions, exon 89G540H or L861Q, exon 18 G719A or exon [...] in some mutation types by this assay. marcy/candidoElectronically Signed By Jhoan Miranda M.D. Attending Pathologist 06/25/2020 09:32:10Reported at [address] [place] [id number]. Gross DescriptionMETHODOLOGY:The therascreen EGFR RGQ PCR Kit ([employer], [place], [place]) is a real-timequalitative PCR assay used on the [employer] MDx instrument for thedetection of seven types of mutations at EGFR oncogene. The kit requiresDNA extracted from formalin-fixed paraffin-embedded (FFPE) tissue ofnon-small cell lung cancer. The tumor area is identified by the attendingpathologist and manually microdissected. The assay uses Scorpionse andARMSe (Allele Refractory Mutation System) technologies, and [facility] SpringsDA-approved for clinical patient care. Allele-specific amplification isachieved by ARMS which exploits the ability of Taq DNA polymerase todistinguish between a matched and a mismatched base at the 3' end of a PCRprimer. Detection of amplification is performed using Scorpions, which arebifunctional molecules containing a PCR primer covalently linked to aprobe.REFERENCES:1. Peg Parsons., Deyanira Bello, Peg Lopez. et al. EGFR-targeted therapyfor non-small cell lung cancer: focus on EGFR oncogenic mutation. Int. J. Med. Sci. 2013; 10: 320. 2. Deisy Odom., et al. First-line gefitinib in patients withadvanced non-small cell lung cancer harboring somatic EGFR mutations. J.Clin.Oncol. 2008;15: 2442.3. Aleks SV, Shima RICHARDSON, Toño J et al. Epidermal growth factor receptormutations in lung cancer. Nature Review/Cancer. 2007;9824-0787.This report may include one or more immunohistochemical stain results thatuse analyte specific reagents. All positive and negative controls havebeen reviewed by the attending pathologist and are satisfactory. The testswere developed and their performance characteristics determined by [facility] Pathology department. They have not been cleared or approved by the USFood and Drug Administration. The FDA has determined that such clearanceor approval is not necessary. Name Value Range Interpretation Code Description Data Shelly rce(s) Supporting Document(s) ID Date Data Source [id number] 06/25/2020 09:18:00 AM [facility] Anatomic Molecular Pathology ReportName: TOLU RATLIFFNICK: [id number] Number: [id number] Date: 06/08/2020 00:00Received Date: 06/16/2020 09:05Physician(s): BETHANY FELIX MD HAGHIR, SHAHANDEH F,MDCopy To:LIZETT COOLEY,[facility]imen[facility]s) ReceivedA: Pleural fluid, Formalin Block [id number] received from [facility] in [place], [place] KRAS Mutation AnalysisDiagnosisTEST:KRAS gene mutations by [...] Miranda M.D. Attending Pathologist 06/25/2020 09:18:25Reported at [address] [place] [id number]. Gross DescriptionMETHODOLOGY:The therascreen KRAS RGQ PCR Kit is a real-time qualitative PCR assay usedon the KakaMobi instrument for the detection of seven somaticmutations [...] to a probe.REFERENCES:1. TERRI Morejon, Terri JM, Fahad MR, et al. [place] Societyof Clinical Oncology provisional clinical opinion: testing for KRAS genemutations in patients with metastatic colorectal carcinoma to predictresponse to anti-epidermal growth factor receptor monoclonal antibodytherapy. J Clin Oncol 27:2459-1849, 2009. 2. Robbie Nichols , Peg Javed , GALINA Mace, et al.Biomarkers predicting clinical outcome of epidermal growth factor receptortargeted therapy in metastatic colorectal cancer. J Natl Cancer Vfsk268:01018337, 2009.This report may include one or more immunohistochemical stain results thatuse analyte specific reagents. All positive and negative controls havebeen reviewed by the attending pathologist and are satisfactory. The testswere developed and their performance characteristics determined by [facility] Pathology department. They have not been cleared or approved by the USFood and Drug Administration. The FDA has determined that such clearanceor approval is not necessary. Name Value Range Interpretation Code Description Data Shelly rce(s) Supporting Document(s) ID Date Data Source [id number] 06/25/2020 09:10:00 AM [facility] Anatomic Molecular Pathology ReportName: TOLU RATLIFFMRN: [id number] Number: [id number] Date: 06/08/2020 00:00Received Date: 06/16/2020 09:01Physician(s): BETHANY FELIX MD HAGHIR, SHAHANDEH F,MDCopy To:LIZETT COOLEY,[facility]) ReceivedA: Pleural fluid, Formalin Block [id number] received from [facility] in [place], [place], ALK by FISHDiagnosisTEST:ALK gene rearrangements by [...] Miranda M.D. Attending Pathologist 06/25/2020 09:10:47Reported at [address] [place] [address]. Gross DescriptionMETHODOLOGY:Interphase FISH is performed on paraffin embedded NSCLC utilizing theBabyoye Molecular ALK Break Apart FISH Probe Kit. [...] the special procedure laboratory of Department of Pathology,[facility]. This report may include one or more immunohistochemical stain results thatuse analyte specific reagents. All positive and negative controls havebeen reviewed by the attending pathologist and are satisfactory. The testswere developed and their performance characte ristics determined by [facility] Pathology department. They have not been cleared or approved by the USFood and Drug Administration. The FDA has determined that such clearanceor approval is not necessary. Name Value Range Interpretation Code Description Data Shelly rce(s) Supporting Document(s) ID Date Data Source [id number] 05/07/2020 09:36:00 AM [facility] ([facility]) Name Value Range Interpretation Code Description Data Shelyl rce(s) Supporting Document(s) Reported Physicians See Note Reported Physici ans [place] ([facility]) Note: Reported Physicians:Ordering: Esha De La Garza AAttending: ESHA TALAMANTESConsulting: Alex TALAMANTES To: Esha Talamantes ID Date Data Source [id number] 05/07/2020 09:36:00 AM [facility] [place] ([facility]) Name Value Range Interpretation Code Description Data Shelly rce(s) Supporting Document(s) Procalcitonin [Mass/volume] in Serum or Plasma by Immunoassay 0.04 ng/mL Procalcitonin [place] ([facility]) Note: A procalcitonin (PCT) level above 2.0 [...] obtained.Responsible Observer: (rfl) ID Date Data Source [id number] 05/07/2020 09:36:00 AM [facility] ([facility]) Name Value Range Interpretation Code Description Data Shelly rce(s) Supporting Document(s) Reported Physicians See Note Reported Physic ans [place] ([facility]) Note: Reported Physicians:Ordering: Beard e, Esha AAttending: VINITA, JOCELYNConsulting: VINITA, JOCELYNCopy To: Vinita, Esha ID Date Data Source [id number] 05/07/2020 09:36:00 AM [facility] ([facility]) Name Value Range Interpretation Code Description Data Shelly rce(s) Supporting Document(s) SED RATE 18 mm/hr SED RATE [place] ([facility]) Note: Responsible Observer: (CM) SED RATE REENTER 18 SED RATE REENTER [facility] ([facility]) Note: Responsible Observer: (CM) ID Date Data Source [id number] 05/07/2020 09:36:00 AM [facility] ([facility]) Name Value Range Interpretation Code Description Data Shelly rce(s) Supporting Document(s) Reported Physicians See Note Reported [facility] ([facility]) Note: Reported Physicians:Ordering: Beard e, Esha AAttending: VINITA, JOCELYNConsulting: VINITA, JOCELYNCopy To: Vinita, Esha ID Date Data Source [id number] 05/07/2020 09:36:00 AM EST [place] ([facility]) Name Value Range Interpretation Code Description Data Shelly rce(s) Supporting Document(s) CRP-HS 8.40 MG/L Above high normal CRP-HS [facility] ([facility]) Note: [facility]/S HS-CRP CUT-OFF : RELATIVE RISK: <1.0 mg/L Low 1.0 - 3.0 mg/L Average >3.0 mg/L High Optimally, the average of HS-CRP results repeated two weeks apart should be used for risk assessment.Responsible Observer: () ID Date Data Source [id number] 05/07/2020 09:36:00 AM EST [place] ([facility]) Name Value Range Interpretation Code Description Data Shelly rce(s) Supporting Document(s) Reported Physicians See Note Reported Physic ans [place] ([facility]) Note: Reported Physicians:Ordering: Beard e Esha AAttending: VINITA, JOCELYNConsulting: VINITA, JOCELYNCopy To: Esha Talamantes ID Date Data Source [id number] 05/07/2020 09:36:00 AM EST [place] ([facility]) Name Value Range Interpretation Code Description Data Shelly rce(s) Supporting Document(s) BNP 211 PG/ML Above high normal BNP [place] ([facility]) Note: Responsible Observer: () ID Date Data Source [id number] 05/07/2020 09:36:00 AM EST [place] ([facility]) Name Value Range Interpretation Code Description Data Shelly rce(s) Supporting Document(s) Reported Physicians See Note Reported Physici ans [place] ([facility]) Note: Reported Physicians:Ordering: Beard e, Esha AAttending: VINITA, JOCELYNConsulting: VINITA, JOCELYNCopy To: Vinita Esha ID Date Data Source [id number] 05/07/2020 09:36:00 AM EST [place] ([facility]) Name Value Range Interpretation Code Description Data Shelly rce(s) Supporting Document(s) TROPONIN T <0.01 NG/ML TROPONIN T [place] ([facility]) Note: TROPONIN T0.1 ng/ml Recommended as the clinical threshold value forTroponin T.Responsible Observer: () ID Date Data Source [id number] 05/07/2020 09:36:00 AM EST [place] ([facility]) Name Value Range Interpretation Code Description Data Shelly rce(s) Supporting Document(s) Reported Physicians See Note Reported Physici ans [place] ([facility]) Note: Reported Physicians:Ordering: Arminda De La Garzacelyn AAttending: VINITA JOCELYNConsulting: VINITA JOCELYNCopy To: Justus Talamantesyn ID Date Data Source [id number] 05/07/2020 09:36:00 AM EST [place] ([facility]) Name Value Range Interpretation Code Description Data Shelly rce(s) Supporting Document(s) #BASO 0.05 10\\^3/uL #BASO [place] ([facility]) Note: Responsible Observer: () #EOS 0.38 10\\^3/uL #EOS [place] ([facility]) Note: Responsible Observer: () #IG 0.03 10\\^3/uL #IG [place] ([facility]) Note: Responsible Observer: () #LYMPH 1.37 10\\^3/uL #LYMPH [place] ([facility]) Note: Responsible Observer: () #MONO 0.85 10\\^3/uL #MONO [place] ([facility]) Note: Responsible Observer: () #NEUT 6.85 10\\^3/uL #NEUT [place] ([facility]) Note: Responsible Observer: () #NRBC 0.00 10\\^3/uL #NRBC [place] ([facility]) Note: Responsible Observer: () %EOS 5 % %EOS [place] ([facility]) Note: Responsible Observer: (MOISES) %IG 0.3 % Above high normal %IG [place] ([facility]) Note: Responsible Observer: () %LYMPH 13 % Below low normal %LYMPH [place] ([facility]) Note: Responsible Observer: (CLD) %MONO 7 % %MONO [place] ([facility]) Note: Responsible Observer: (CLD) %NRBC 0.0 % %NRBC [place] ([facility]) Note: Responsible Observer: () BAND 0 % BAND [place] ([facility]) Note: Responsible Observer: (CLD) BASO 0.5 % BASO [place] ([facility]) Note: Responsible Observer: () Blasts [#] in Body fluid by Manual count 0 % BLASTS [place] ([facility]) Note: Responsible Observer: (CLD) CBC W/MANUAL DIFF See Note CBC W/MANUAL DIFF [place] ([facility]) Note: CO RRECTED REPORT COMPLETE BLOOD COUNTResponsible Observer: (CLD) EOS 4.0 % EOS [place] ([facility]) Note: Responsible Observer: () Hematocrit [Pure volume fraction] of Blood by Automated count 41.4 % HEMATOCRIT [place] ([facility]) Note: Responsible Observer: () Hemoglobin [Mass/volume] in Mixed venous blood by Oximetry 14.0 g/d L HEMOGLOBIN [place] ([facility]) Note: Responsible Observer: () LYMPH 14.4 % Below low normal LYMPH [place] ([facility]) Note: Responsible Observer: () MANUAL DIFF SEE BELOW MANUAL DIFF [place] ([facility]) Note: Responsible Observer: (CLD) MCH 30.2 pg MCH [place] ([facility]) Note: Responsible Observer: () MCHC 33.8 g/dL MCHC [place] ([facility]) Note: Responsible Observer: () MCV 89.2 fL MCV [place] ([facility]) Note: Responsible Observer: () MONO 8.9 % Above high normal MONO [place] ([facility]) Note: Responsible Observer: () MPV 8.6 fL MPV [place] ([facility]) Note: Responsible Observer: () NEUT 71.9 % NEUT [place] ([facility]) Note: Responsible Observer: () Platelets [#/area] in Blood by Microscopy high power field 300 10\\^ 3/uL PLATELETS [place] ([facility]) Note: Responsible Observer: () RBC 4.64 10\\^6/uL RBC [place] ([facility]) Note: Responsible Observer: () RBC MORPH NOT INDICATED RBC MORPH [place] ([facility]) Note: FOLLOWING RE SULTS REPORTED IN ERROR MANUAL DIFF NOTINDICATED <-- *Previously reported in error 05/07/20.0948.MD . . .M{ CORRECTResponsible Observer: () RDW 12.2 % RDW [place] ([facility]) Note: Responsible Observer: () SEGS 75 % SEGS [place] ([facility]) Note: Responsible Observer: (MOISES) WBC 9.5 10\\^3/uL WBC [place] ([facility]) Note: Responsible Observer: () ID Date Data Source [id number] 05/12/2020 06:51:00 AM [facility] Name Value Range Interpretation Code Description Data Shelly rce(s) Supporting Document(s) Procalcitonin [Mass/volume] in Serum or Plasma 0.04 ng/mL 0.00-0.08 [facility] A procalcitonin (PCT) level above 2.0 [...] ng/mL are obtained. ID Date Data Source [id number] 05/07/2020 10:37:00 AM [facility] Name Value Range Interpretation Code Description Data Shelly rce(s) Supporting Document(s) BNP 211 PG/ML 0 - 125 H [facility] ID Date Data Source [id number] 05/07/2020 10:37:00 AM [facility] Value Range Interpretation Code Description Data Shelly rce(s) Supporting Document(s) C reactive protein [Mass/volume] in Serum or Plasma by High sensitivity method 8.40 MG/L 1.00 - 3.00 H [facility] CDC/S HS-CRP CUT-OFF: RELATIVE RISK: <1.0 mg/L Low 1.0 - 3.0 mg/L Average >3.0 mg/L High Optimally, the average of HS-CRP results repeated two weeks apart should be used for risk assessment. ID Date Data Source [id number] 05/07/2020 10:27:00 AM [facility] Name Value Range Interpretation Code Description Data Shelly rce(s) Supporting Document(s) CBC W/MANUAL DIFF [facility] CORRECTE D REPORT COMPLETE BLOOD COUNT Leukocytes [#/volume] in Blood by Automated count 9.5 10^3/uL 4.2 - 1 1.0 [facility] Erythrocytes [#/volume] in Blood by Automated count 4.64 10^6/uL 4. 50 - 6.30 [facility] Hemoglobin [Mass/volume] in Blood 14.0 g/dL 14.0 - 16.0 [facility] Hematocrit [Volume Fraction] of Blood by Automated count 41.4 % 4 1.0 - 51.0 [facility] Erythrocyte mean corpuscular volume [Entitic volume] by Auto mated count 89.2 fL 80.0 - 94.0 [facility] Erythrocyte mean corpuscular hemoglobin [Entitic mass] by Automated count 30.2 pg 27.0 - 34.0 [facility] Erythrocyte mean corpuscular hemoglobin concentration [Mass/volume] by Automated count 33.8 g/dL 31.0 - 36.0 [facility] Erythrocyte distribution width [Ratio] by Automated count 12.2 % 11.5 - 14.8 [facility] Platelets [#/volume] in Blood by Automated count 300 10^3/uL 150 - 45 0 [facility] Platelet mean volume [Entitic volume] in Blood by Automated count 8.6 fL 7.4 - 10.4 [facility] Neutrophils/100 leukocytes in Blood by Automated count 71.9 % 37. 0 - 80.0 [facility] Lymphocytes/100 leukocytes in Blood by Manual count 14.4 % 25.0 - 40.0 L [facility] Monocytes/100 leukocytes in Blood by Automated count 8.9 % 3.0 - 8.0 H [facility] Eosinophils/100 leukocytes in Blood by Automated count 4.0 % 0.0 - 7.0 [facility] Basophils/100 leukocytes in Blood by Automated count 0.5 % 0.0 - 2.0 [facility] %IG 0.3 % 0.0 - 0.0 [facility] %NRBC 0.0 % 0.0 - 0.0 [facility] al Neutrophils [#/volume] in Blood by Automated count 6.85 10^3/uL 2.00 - 6.90 [facility] Lymphocytes [#/volume] in Blood by Automated count 1.37 10^3/uL 0.60 - 3.40 [facility] Monocytes [#/volume] in Blood by Automated count 0.85 10^3/uL 0.00 - 0.90 [facility] Eosinophils [#/volume] in Blood by Automated count 0.38 10^3/uL 0.00 - 0.70 [facility] Basophils [#/volume] in Blood by Automated count 0.05 10^3/uL 0.00 - 0.20 [facility] #IG 0.03 10^3/uL 0.00 - 0.10 [facility] #NRBC 0.00 10^3/uL 0.00 - 0.00 [facility] MANUAL DIFF SEE BELOW [facility] Segmented neutrophils/100 leukocytes in Blood by Manual count 75 % 37 - 80 [facility] BAND 0 % 0 - 5 [facility] %LYMPH 13 % 25 - 40 L [facility] %MONO 7 % 3 - 8 [facility] %EOS 5 % 0 - 7 [facility] Blasts/100 leukocytes in Blood by Manual count 0 % [facility] RBC MORPH NOT INDICATED [facility] FOLLOWING RESULTS REPORTED IN ERROR MANUAL DIFF { CORRECT ID Date Data Source [id number] 05/07/2020 10:26:00 AM [facility] Name Value Range Interpretation Code Description Data Shelly rce(s) Supporting Document(s) TROPONIN T <0.01 NG/ML 0.00 - 0.10 [facility] ospital TROPONIN T0.1 ng/ml Recommended as the c linical threshold value forTroponin T. ID Date Data Source [id number] 05/07/2020 10:06:00 AM [facility] Name Value Range Interpretation Code Description Data Shelly rce(s) Supporting Document(s) Erythrocyte sedimentation rate by Westergren method 18 mm/hr 0 - 20 [facility] SED RATE REENTER 18 [facility] ID Date Data Source [id number] 04/30/2020 08:37:00 AM [facility] ([facility] Name Value Range Interpretation Code Description Data Shelly rce(s) Supporting Document(s) Reported Physicians See Note Reported Physici ans [place] ([facility]) Note: Reported Physicians:Ordering: Beard e, Esha AAttending: VINITA, JOCELYNConsulting: VINITA, JOCELYNCopy To: [place]inita, Esha ID Date Data Source [id number] 04/30/2020 08:37:00 AM EST [place] ([facility]) Name Value Range Interpretation Code Description Data Shelly rce(s) Supporting Document(s) CPK 59 U/L CPK [place] ([facility]) Note: Responsible Observer: (TAD) ID Date Data Source [id number] 04/30/2020 08:37:00 AM EST [place] ([facility]) Name Value Range Interpretation Code Description Data Shelly rce(s) Supporting Document(s) Reported Physicians See Note Reported Physici ans [place] ([facility]) Note: Reported Physicians:Ordering: Beard e, Esha AAttending: VINITA, JOCELYNConsulting: VINITA, JOCELYNCopy To: Ivnita, Esha ID Date Data Source [id number] 04/30/2020 08:37:00 AM EST [place] ([facility]) Name Value Range Interpretation Code Description Data Shelly rce(s) Supporting Document(s) Cholesterol [Moles/volume] in Pericardial fluid 162 MG/DL CHOLESTEROL [place] ([facility]) Note: Responsible Observer: (TAD) CVE PANEL See Note CVE PANEL [place] ([facility]) Note: LIPID PANELResponsible Observe r: (TAD) HDL 40 MG/DL HDL [place] ([facility]) Note: Responsible Observer: (TAD) Cholesterol in LDL [Mass/volume] in Serum or Plasma by Direct as say 91 mg/dL LDL [place] ([facility]) Note: Responsible Observer: (TAD) LDL/HDL 2.28 LDL/HDL [place] ([facility]) Note: CVE RISK CHOL/HD L LDL/HDLMEN: 1/2 AVERAGE 3.43 1.00 AVERAGE 4.97 3.55 2X AVERAGE 9.55 6.25 3X AVERAGE 23.99 7.99WOMEN: 1/2 AVERAGE 3.27 1.47 AVERAGE 4.44 3.22 2X AVERAGE 7.05 5.03 3X AVERAGE 11.04 6.14Responsible Observer: (TAD) RISK FACTOR 4.1 RISK FACTOR [place] ([facility]) Note: Responsible Observer: (TAD) TRIGLYCERIDES 198 MG/DL Above high normal [facility] Note: Responsible Observer: (TAD) ID Date Data Source [id number] 04/30/2020 08:37:00 AM EST [place] ([facility]) Name Value Range Interpretation Code Description Data Shelly rce(s) Supporting Document(s) Reported Physicians See Note Reported Physici ans [place] ([facility]) Note: Reported Physicians:Ordering: Beard e, Esha AAttending: VINITA, JOCELYNConsulting: VINITA, JOCELYNCopy To: Vinita Esha ID Date Data Source [id number] 04/30/2020 08:37:00 AM EST [place] ([facility]) Name Value Range Interpretation Code Description Data Shelly rce(s) Supporting Document(s) URIC ACID 5.1 MG/DL URIC ACID [place] ([facility]) Note: Responsible Observer: (TAD) ID Date Data Source [id number] 04/30/2020 08:37:00 AM EST [place] ([facility]) Name Value Range Interpretation Code Description Data Shelly rce(s) Supporting Document(s) [facility] Note: Reported Physicians:Ordering: Beard e, Esha AAttending: VINITA, JOCELYNConsulting: VINITA, JOCELYNCopy To: Vinita, Esha ID Date Data Source [id number] 04/30/2020 08:37:00 AM EST [place] ([facility]) Name Value Range Interpretation Code Description Data Shelly rce(s) Supporting Document(s) TSH 2.19 uIU/mL TSH [place] ([facility]) Note: Responsible Observer: (TAD) ID Date Data Source [id number] 04/30/2020 09:31:00 AM [facility] Name Value Range Interpretation Code Description Data Shelly rce(s) Supporting Document(s) Thyrotropin [Units/volume] in Serum or Plasma by Detec tion limit <= 0.05 mIU/L 2.19 uIU/mL 0.47 - 5.01 [facility] ID Date Data Source [id number] 04/30/2020 09:27:00 AM [facility] Name Value Range Interpretation Code Description Data Shelly rce(s) Supporting Document(s) Urate [Mass/volume] in Serum or Plasma 5.1 MG/DL 2.5 - 8.5 [facility] ID Date Data Source [id number] 04/30/2020 09:27:00 AM [facility] Name Value Range Interpretation Code Description Data Shelly rce(s) Supporting Document(s) Creatine kinase [Enzymatic activity/volume] in Serum or Plasma 5 9 U/L 30 - 170 [facility] ID Date Data Source [id number] 04/30/2020 09:27:00 AM [facility] Name Value Range Interpretation Code Description Data Shelly rce(s) Supporting Document(s) [facility] Cholesterol [Mass/volume] in Serum or Plasma 162 MG/DL 131 - 200 [facility] Deprecated Triglyceride [Mass/volume] in Serum or Plasma 198 MG/DL 3 5 - 160 H [facility] HDL 40 MG/DL 29 - 86 [facility] Cholesterol in LDL [Mass/volume] in Serum or Plasma by Direc t assay 91 mg/dL 65 - 175 [facility] Cholesterol.total/Cholesterol in HDL [Mass Ratio] in Serum o r Plasma 4.1 3.4 - 4.9 [facility] LDL/HDL 2.28 1.00 - 3.55 [facility] ital CVE RISK CHOL/HDL LDL/HDLMEN: 1/2 AVERAGE 3.43 1.00 AVERAGE 4.97 3.55 2X AVERAGE 9.55 6.25 3X AVERAGE 23.99 7.99WOMEN: 1/2 AVERAGE 3.27 1.47 AVERAGE 4.44 3.22 2X AVERAGE 7.05 5.03 3X AVERAGE 11.04 6.14 ID Date Data Source [id number] 04/12/2020 09:42:00 AM EDT [facility] Name: TOLU RATLIFF : 1955 Age: 64 MR#: [id number] Admit Date: 04/11/20 Provider: Honorio De Souza [...] % (Auto) 68.7, Lymph % (Auto) 20.9, Treasure % (Auto) 8.4, Eos % (Auto) 1.2, [...] earance Clear, Urine pH 5.0, Ur Specific [place] 1.010,Urine Protein Negative, Urine Ketones Negative, Urine [...] 94.0 H, Lymph % (Auto) 4.2 L, [place] % (Auto) 1.2 L, Eos % (Auto) [...] was instructed to f/u with PMD for attending urologist referral. Pt was clinically and vitally stable [...] metformin 500 mg PO DAILY 04/11/20 [History] bjrlehyfgoxi-zgzbsein-agdrjf 1 tab PO DAILY 04/11/20 [History] azithromycin [...] PRN (Reason: Shortness Of Breath) RF: 0 [id number]-edlisqxc-xmhmjz Tablet 1 tab PO DAILY RF: 0 [...] Souza MD SIGNATURE DA Report Cosigners: D: YASMINE 04/12/20941 T: YASMINE 04/12/20941 CC: Name Value Range Interpretation Code Description Data Shelly rce(s) Supporting Document(s) ID Date Data Source [id number] 04/12/2020 07:40:00 AM EDT [facility] @04/12/20 0729: MANUAL DIFF added. RFLXG = DIFF. @04/12/20 0729: MANUAL DIFF added. RFLXG = DIFF. Name Value Range Interpretation Code Description Data Shelly rce(s) Supporting Document(s) Leukocytes [#/volume] in Blood by Automated count 14.6 10*3/uL 4.45-10.71 Above high normal [facility] Erythrocytes [#/volume] in Blood by Automated count 4.85 10*6/uL 4.3- 6.1 N [facility] Hemoglobin [Moles/volume] in Blood 14.7 g/dL 13-18 N [facility] Hematocrit [Volume Fraction] of Blood by Automated count 44.4 % 4 2-52 N [facility] Erythrocyte mean corpuscular volume [Ent itic volume] in Cord blood by Automated count 91.5 fL 80-96 N [facility] ital Erythrocyte mean corpuscular hemoglobin [Entitic mass] by Automated count 30.3 pg 27-31 [facility] Erythrocyte mean corpuscular hemoglobin concentration [Mass/volume] in Cord blood 33.1 g/dL 33-37 N [facility] ital Erythrocyte distribution width [Entitic volume] by Automated count 13 % 11-15 N [facility] Platelets [#/volume] in Blood by Automated count 235 10*3/uL 130-472 N [facility] Platelet mean volume [Entitic volume] in Blood 9.5 fL 9.1-13.1 N [facility] Neutrophils/100 leukocytes in Blood by Automated count 94.0 % 41-77 Above high normal [facility] @PERFORM SLIDE SCAN IF NOT AGREE MAN DIF F@DOCUMENT SLIDE SCAN COMMENT Neutrophils [#/volume] in Blood by Automated count 13.8 U 1.7-7.6 Above high normal [facility] Lymphocytes/100 leukocytes in Blood by Automated count 4.2 % 14-46 Below low normal [facility] Lymphocytes [#/volume] in Blood by Automated count 0.6 U 0.6-4.6 N [facility] Monocytes/100 leukocytes in Blood by Automated count 1.2 % 4-12 Below low normal [facility] Monocytes [#/volume] in Blood by Automated count 0.2 U 0.2-1.2 N [facility] Eosinophils/100 leukocytes in Blood by Automated count 0.0 % 0-7 N [facility] Eosinophils [#/volume] in Blood by Automated count 0.0 U 0.0-0.5 N [facility] Basophils/100 leukocytes in Blood by Automated count 0.1 % 0.4-1.3 Below low normal [facility] Basophils [#/volume] in Blood by Automated count 0.0 U 0.0-0.2 N [facility] NUCLEATED RED BLOOD CELL 0 % [facility] NUCLEATED RED BLOOD CELL# 0 U [facility] Immature granulocytes [Presence] in Blood by Automated count 0-2 N [facility] Immature granulocytes [#/volume] in Blood by Automated count 0.1 U 0-0.1 N [facility] Manual Differential panel - Blood Manual Diff Added [facility] ID Date Data Source [id number] 04/12/2020 07:53:00 AM EDT [facility] @04/12/20728: MANUAL DIFF added. RFLXG = DIFF. @04/12/20728: MANUAL DIFF added. RFLXG = DIFF. Name Value Range Interpretation Code Description Data Shelly rce(s) Supporting Document(s) Urea nitrogen [Mass/volume] in Serum or Plasma 19 mg/dL 9-23 N [facility] Sodium [Moles/volume] in Serum or Plasma 138 mmol/L 132-146 N [facility] Potassium [Moles/volume] in Serum or Plasma 4.6 mmol/L 3.5-5.5 [facility] Chloride [Moles/volume] in Serum or Plasma 105 mmol/L 99-109 [facility] Carbon dioxide, total [Moles/volume] in Serum or Plasma 25 mmol/L 20 -31 N [facility] Anion gap in Serum or Plasma 13 mmol/L 8-16 [facility] Glucose [Mass/volume] in Serum or Plasma 212 mg/dL 74-106 Above high normal [facility] Creatinine 1.1 mg/dL 0.5-1.1 [facility] Glomerular filtration rate/1.73 sq M.pre dicted [Volume Rate/Area] in Serum or Plasma Greater Than 60 ABOVE 60 [facility] Alanine aminotransferase [Enzymatic acti vity/volume] in Serum or Plasma by With P-5'-P 30 U/L 10-49 [facility] ital Aspartate aminotransferase [Enzymatic ac tivity/volume] in Serum or Plasma by With P-5'-P 11 U/L 0-33 [facility] Alkaline phosphatase [Enzymatic activity/volume] in Serum or Plasma 58 U/L 45-129 [facility] Calcium [Mass/volume] in Serum or Plasma 9.2 mg/dL 8.5-10.1 [facility] Bilirubin.total [Mass/volume] in Serum or Plasma 0.5 mg/dL 0.3-1.2 [facility] Albumin [Mass/volume] in Serum or Plasma by Bromocresol purple (BCP) dye binding method 3.4 g/dL 3.2-4.8 [facility] ital Protein [Mass/volume] in Serum or Plasma 7.1 g/dL 5.7-8.2 [facility] ID Date Data Source [id number] 04/12/2020 07:40:00 AM EDT [facility] @04/12/20 0729: MANUAL DIFF added. RFLXG = DIFF. @04/12/20728: MANUAL DIFF added. RFLXG = DIFF. Name Value Range Interpretation Code Description Data Shelly rce(s) Supporting Document(s) Cells counted [#] 100 [facility] Neutrophils [#/volume] in Blood by Manual count 97 % 41-77 Above high normal [facility] @Are you sure? Please be sure this value is correct YES Lymphocytes [#/volume] in Blood by Manual count 3 % 14-46 Below low normal [facility] Platelets [#/volume] in Blood by Estimate APPEARS NORMAL NORMAL [facility] Morphology [Interpretation] in Blood Narrative APPEARS NORMAL NORMAL [facility] ID Date Data Source [id number] 04/12/2020 07:53:00 AM EDT [facility] @04/12/20728: MANUAL DIFF added. RFLXG = DIFF. @04/12/20728: MANUAL DIFF added. RFLXG = DIFF. Name Value Range Interpretation Code Description Data Shelly rce(s) Supporting Document(s) Troponin I.cardiac [Mass/volume] in Serum or Plasma Less Than 0.015 0.00-0.09 N [facility] Less than 0.09 NG/ML Negative0.10 - 0.77 NG/ML High Risk0.78 NG/ML or Greater PositiveThe WHO defined the cutoff (definition for diagnosis of RI)for this method as 0.78 ng/ml. ID Date Data Source [id number] 04/12/2020 06:40:00 AM [facility]) Name Value Range Interpretation Code Description Data Shelly rce(s) Supporting Document(s) Reported Physicians See Note Reported Physici ans [place] ([facility]) Note: Reported Physicians:Ordering: Pradeep Ferraraending: John De Souzaitting: Shruthi De SouzakramCopninfa To: Shruthi De SouzakramCopy To: Esha Talamantes ID Date Data Source [id number] 04/12/2020 06:40:00 AM [facility] ([facility]) Name Value Range Interpretation Code Description Data Shelly rce(s) Supporting Document(s) Troponin I.cardiac [Mass/volume] in Serum or Plasma Less Than 0.015 Normal [facility] ([facility]) Note: Less than 0.09 NG/ML Negative 0.10 - 0.77 NG/ML High Risk0.78 NG/ML or Greater PositiveThe WHO defined the cutoff (definition for diagnosis of RI)for this method as 0.78 ng/ml.Responsible Observer: Troponin I Troponin I 600.1101 (G) ID Date Data Source [id number] 04/12/2020 06:40:00 AM EDT [place] ([facility]) Name Value Range Interpretation Code Description Data Shelly rce(s) Supporting Document(s) MANUAL DIFF See Note MANUAL DIFF [facility] ([facility]) Note: NOTES OTHER/NOT INTERPRETED Cells counted 100 Lymphocytes # Bld Manual 3 %Morphology Bld-Imp APPEARS NORMAL Neutrophils # Bld Manual 97 %Platelet # Bld Est APPEARS NORMAL @Are you sure? Please be sure this value is correct YES@04/12/20 0729: MANUAL DIFF added. RFLXG = DIFF.Responsible Observer: TOTAL CELLS TOTAL CELLS COUNTED 100.2105 (A) ID Date Data Source [id number] 04/12/2020 06:40:00 AM EDT [place] ([facility]) Name Value Range Interpretation Code Description Data Shelly rce(s) Supporting Document(s) Reported Physicians See Note Reported Physici ans [place] ([facility]) Note: Reported Physicians:Ordering: Pradeep Ferraraending: John De Souzaitting: Pete De Souza To: Shruthi De SouzakramCopninfa To: Esha Talamantes ID Date Data Source [id number] 04/12/2020 06:40:00 AM EDT [place] ([facility]) Name Value Range Interpretation Code Description Data Shelly rce(s) Supporting Document(s) Alanine aminotransferase [Enzymatic acti vity/volume] in Serum or Plasma by With P-5'-P 30 enzyme_unit_per_liter Normal ALT SerPl w P-5' -P-cCnc [place] ([facility]) Note: Responsible Observer: SGPT/ALT SGP T/ALT 400.1750 (G) Calcium [Mass/volume] in Serum or Plasma 9.2 MilliGramsPerDeciLiter_[Mass_Concentration_Units] Normal Calcium [employer] ([facility]) Note: Responsible Observer: Calcium Calc ium 400.2500 (G) Bilirubin.total [Mass/volume] in Serum or Plasma 0.5 MilliGramsPerDeciLiter_[Mass_Concentration_Units] Normal Bilirub [employer] ([facility]) Note: Responsible Observer: T ABDIRAHMAN Total Bilirubin 400.2600 (G) Carbon dioxide, total [Moles/volume] in Serum or Plasm a 25 MilliMolesPerLiter_[Substance_Concentration_Units] Normal CO2 [facility] ([facility]) Note: Responsible Observer: CO2 Carbon D ioxide 400.1400 (G) Chloride [Moles/volume] in Serum or Plasma 105 MilliMolesPerLiter_[Substance_Concentration_Units] Normal Chloride [facility] ([facility]) Note: Responsible Observer: Chloride Chl oride 400.1250 (G) Glucose [Mass/volume] in Serum or Plasma 212 MilliGramsPerDeciLiter_[Mass_Concentration_Units] Above high normal Glucose [employer] ([facility]) Note: Responsible Observer: Glucose Gluc ose 400.1500 (G) Potassium [Moles/volume] in Serum or Plasma 4.6 MilliMolesPerLiter_[Substance_Concentration_Units] Normal Potassium [facility] ([facility]) Note: Responsible Observer: K Potassium 400.1210 (G) Protein [Mass/volume] in Serum or Plasma 7.1 GramsPerDeciLiter_[Mass_Concentration_Units] Normal Pro t [employer] ([facility]) Note: Responsible Observer: TP Total Pro tein 400.2800 (G) Sodium [Moles/volume] in Serum or Plasma 138 MilliMolesPerLiter_[Substance_Concentration_Units] Normal Sodium [facility] ([facility]) Note: Responsible Observer: Sodium Sodiu m 400.1100 (G) Aspartate aminotransferase [Enzymatic ac tivity/volume] in Serum or Plasma by With P-5'-P 11 enzyme_unit_per_liter Normal AST SerPl [facility]' [facility] [place] ([facility]) Note: Responsible Observer: SGOT / AST S GOT / AST 400.1900 (G) Urea nitrogen [Mass/volume] in Serum or Plasma 19 MilliGramsPerDeciLiter_[Mass_Concentration_Units] Normal BUN [facility] ([facility]) Note: Responsible Observer: BUN Blood Ur ea Nitrogen 400.1000 (G) Anion gap in Serum or Plasma 13 MilliMolesPerLiter_[Substance_Concentration_Units] Normal Anion Gap [facility] [place] ([facility]) Note: Responsible Observer: ANION GAP AN ION GAP 400.1402 (E) Albumin [Mass/volume] in Serum or Plasma by Bromocresol purple (BCP) dye binding method 3.4 GramsPerDeciLiter_[Mass_Concentration_Units] Normal Albumin [facility] ([facility]) Note: Responsible Observer: Albumin [place] 400.2700 (G) Alkaline phosphatase [Enzymatic activity/volume] in Se rum or Plasma 58 enzyme_unit_per_liter Normal ALP [facility] ( [facility]) Note: Responsible Observer: ALP Alkaline Phosphatase 400.2000 (G) Glomerular filtration rate/1.73 sq M.pre dicted [Volume Rate/Area] in Serum or Plasma Greater Than 60 GFR/BSA.pred SerPlBld-ArV Rat [place] ([facility]) Note: Responsible Observer: GFR Glomerul ar Filt Rate Calc 400.1605 (D) Creatinine [Moles/volume] in Vitreous fluid 1.1 MilliGramsPerDeciLiter_[Mass_Concentration_Units] Normal Creatinine [place] ([facility]) Note: Responsible Observer: Creatinine C reatinine 400.1600 (G) ID Date Data Source [id number] 04/12/2020 06:40:00 AM EDT [place] ([facility]) Name Value Range Interpretation Code Description Data Shelly rce(s) Supporting Document(s) Erythrocyte mean corpuscular volume [Ent itic volume] in Cord blood by Automated count 91.5 FemtoLiter_[SI_Volume_Units] Normal MCV Bld Co Auto [place] ([facility]) Note: Responsible Observer: MCV MCV 100 .0600 (B) Erythrocyte distribution width [Entitic volume] by Automated cou nt 13 percent Normal RDW RBC Auto [place] ([facility]) Note: Responsible Observer: RDW RDW 100 .0900 (B) Manual Differential panel - Blood Manual Diff Added Manual diff Bld [place] ([facility]) Note: Responsible Observer: CBC Manual D ifferential Added 100.1990 (B) Platelet mean volume [Entitic volume] in Blood 9.5 FemtoLite r_[SI_Volume_Units] Normal PMV Bld [place] ([facility]) Note: Responsible Observer: MPV MPV 100 .1100 (B) Immature granulocytes [Presence] in Blood by Automated count See No te Normal Imm Granulocytes Bld Ql Auto [place] ([facility]) Note: [id number] Ob 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% IG% 100.1375 (B) Hematocrit [Volume Fraction] of Blood by Automated count 44.4 perce nt Normal Hct VFr Bld Auto [place] ([facility]) Note: Responsible Observer: HEMATOCRIT H EMATOCRIT 100.0500 (B) Erythrocyte mean corpuscular hemoglobin concentration [Mass/volume] in Cord blood 33.1 GramsPerDeciLiter_[Mass_Concentration_Units] Normal MCHC BldCo-nc [place] ([facility]) Note: Responsible Observer: MCHC MCHC 1 00.0800 (B) Immature granulocytes [#/volume] in Blood by Automated count 0.1 Un it Imm Granulocytes # Bld Auto [place] ([facility]) Note: Responsible Observer: IG# IG# 100 .1400 (B) Monocytes/100 leukocytes in Blood by Automated count 1.2 percent Below low normal Monocytes/leuk NFr Bld Auto [place] ([facility]) Note: Responsible Observer: MONO % MONO % 100.1225 (B) Hemoglobin [Moles/volume] in Blood 14.7 GramsPerDeciLiter_[Mass_Concentration_Units] Normal Hgb Bld-sCnc [place] ([facility]) Note: Responsible Observer: HGB HEMOGLOB IN 100.0400 (B) Leukocytes [#/volume] in Blood by Automated count 14.6 ThousandsPerMicroLiter_[Number_Concentration_Units] Above hi gh normal WBC # Bld Auto [place] ([facility]) Note: Responsible Observer: WBC WHITE BL OOD COUNT 100.0100 (E) Basophils [#/volume] in Blood by Automated count 0.0 Unit Normal Basophils # Bld Auto [place] ([facility]) Note: Responsible Observer: BASO # BASO# 100.1350 (B) Basophils/100 leukocytes in Blood by Automated count 0.1 percent Below low normal Basophils/leuk NFr Bld Auto [place] ([facility]) Note: Responsible Observer: BASO % BASO % 100.1325 (B) Eosinophils [#/volume] in Blood by Automated count 0.0 Unit Normal Eosinophil # Bld Auto [place] ([facility]) Note: Responsible Observer: EOS # EOS# 100.1300 (D) Eosinophils/100 leukocytes in Blood by Automated count 0.0 percent Normal Eosinophil/leuk NFr Bld Auto [place] ([facility]) Note: Responsible Observer: EOS % EOS % 100.1275 (B) Lymphocytes [#/volume] in Blood by Automated count 0.6 Unit Normal Lymphocytes # Bld Auto [place] ([facility]) Note: Responsible Observer: LYMPH # LYMP H# 100.1200 (B) Lymphocytes/100 leukocytes in Blood by Automated count 4.2 perce nt Below low normal Lymphocytes/leuk NFr Bld Auto [place] ([facility]) Note: Responsible Observer: LYMPH % LYMP H % 100.1175 (B) Monocytes [#/volume] in Blood by Automated count 0.2 Unit Normal Monocytes # Bld Auto [place] ([facility]) Note: Responsible Observer: MONO # MONO# 100.1250 (C) Neutrophils [#/volume] in Blood by Automated count 13.8 Unit Above high normal Neutrophils # Bld Auto [facility] ([facility] ) Note: Responsible Observer: NEUT# NEUT# 100.1150 (B) Neutrophils/100 leukocytes in Blood by Automated count 94.0 perc ent Above high normal Neutrophils/leuk NFr Bld Auto [place] ([facility]) Note: @PERFORM SLIDE SCAN IF NOT AGREE M AN DIFF@DOCUMENT SLIDE SCAN COMMENTResponsible Observer: NEUT% NEUT% 100.1125 (B) Platelets [#/volume] in Blood by Automated count 235 ThousandsPerMicroLiter_[Number_Concentration_Units] Normal Platelet # Bld Auto [facility] ([facility]) Note: Responsible Observer: PLATELET COU NT PLATELET COUNT 100.1000 (D) Erythrocyte mean corpuscular hemoglobin [Entitic mass] by Automated count 30.3 PicoGram_[SI_Mass_Units] Normal MCH RBC Qn Auto [place] ([facility]) Note: Responsible Observer: MCH MCH 100 .0700 (B) Erythrocytes [#/volume] in Blood by Automated count 4. 85 MillionsPerMicroLiter_[Number_Concentration_Units] Normal RBC # Bld Auto [facility] ([facility]) Note: Responsible Observer: RBC Red Bloo d Count 100.0300 (B) NUCLEATED RED BLOOD CELL# 0 Unit NUCLEATED RED BLOOD CELL# [facility] ([facility]) Note: Responsible Observer: NRBC# NUCLEA SABRINA RBC 100.1362 (A) NUCLEATED RED BLOOD CELL 0 percent NUCLEATED R ED BLOOD CELL [facility] ([facility]) Note: Responsible Observer: NRBC% NRBC% 100.1360 (B) Notes [TIMP] See Note NOTES [place] ([facility]) Note: @04/12/20 0729: MANUAL DIFF added. RFLXG = DIFF. ID Date Data Source [id number] 04/12/2020 12:34:00 AM EDT [facility] @ RYAN DATE was changed from 04/12/20 to 04/11/20@ nereida ALY. Old specimen was [id number]. Name Value Range Interpretation Code Description Data Shelly rce(s) Supporting Document(s) Troponin I.cardiac [Mass/volume] in Serum or Plasma Less Than 0.015 0.00-0.09 [facility] Less than 0.09 NG/ML Negative0.10 - 0.77 NG/ML High Risk0.78 NG/ML or Greater PositiveThe WHO defined the cutoff (definition for diagnosis of RI)for this method as 0.78 ng/ml. ID Date Data Source [id number] 04/11/2020 10:42:00 PM EDT [facility] @04/11/20 1840: 4hr Lactic Acid added. R FLXG = RFX LACTIC. Name Value Range Interpretation Code Description Data Shelly rce(s) Supporting Document(s) Lactate [Mass/volume] in Serum or Plasma 1.7 mmol/L 0.5-2.2 N [facility] A HIGH RESULT ON THIS 4HR LACTIC ACID WI LL NOT REFLEXANOTHER - YOU MUST ORDER ONE IF YOU WANT IT REPEATED ID Date Data Source [id number] 04/11/2020 10:10:00 PM EDT [place] ([facility]) Name Value Range Interpretation Code Description Data Shelly rce(s) Supporting Document(s) Reported Physicians See Note Reported [facility]OH[facility] ([facility]) Note: Reported Physicians:Ordering: Kian ArguelloAttending: Shruthi De SouzakramAdmitting: Jeremiah, VikramCopy To: Esha Talamantes ID Date Data Source [id number] 04/11/2020 10:10:00 PM EDT [place] ([facility]) Name Value Range Interpretation Code Description Data Shelly rce(s) Supporting Document(s) Lactate [Mass/volume] in Serum or Plasma 1.7 MilliMolesPerLiter_[Substance_Concentration_Units] Normal [facility] ([facility]) Note: A HIGH RESULT ON THIS 4HR LACTIC A PIPO WILL NOT REFLEXANOTHER - YOU MUST ORDER ONE IF YOU WANT IT REPEATEDResponsible Observer: 4HR LACTIC RPT 4HR LACTIC ACID 400.2840 (G) Notes [TIMP] See Note [facility] ([facility]) Note: @04/11/20 1840: 4hr Lactic Acid ad ded. RFLXG = RFX LACTIC. ID Date Data Source [id number] 04/11/2020 10:10:00 PM EDT [place] ([facility]) Name Value Range Interpretation Code Description Data Shelly rce(s) Supporting Document(s) Reported Physicians See Note Reported Israel ramey [place] ([facility]) Note: Reported Physicians:Ordering: Marly Ferrarattending: Jeremiah, VikramAdmitting: Jeremiah, VikramCopy To: Jeremiah, VikramCopy To: Esha Talamantes ID Date Data Source [id number] 04/11/2020 10:10:00 PM EDT [place] ([facility]) Name Value Range Interpretation Code Description Data Shelly rce(s) Supporting Document(s) Troponin I.cardiac [Mass/volume] in Serum or Plasma Less Than 0.015 Normal Troponin I [employer] ([facility]) Note: Less than 0.09 NG/ML Negative 0.10 - 0.77 NG/ML High Risk0.78 NG/ML or Greater PositiveThe WHO defined the cutoff (definition for diagnosis of RI)for this method as 0.78 ng/ml.Responsible Observer: Troponin I Troponin I 600.1101 (G) Notes [TIMP] See Note NOTES [facility] ([facility]) Note: @ RYAN DATE was changed from 04/12 to 04/11/20@ by SHEEBA. Old specimen was [id number]. ID Date Data Source [id number] 04/11/2020 10:05:00 PM EDT [facility] Wattage COVID-19 IS AN ISOTHERMAL NA A TECHNOLOGYNORMAL VALUE IS "SARS-COV-2 COVID 19 NOT DETECTED"False negative results may occur if a specimen is improperlycollected,transported or handled.False negative results may also occur if amplicationinhibitors are present in the specimen or if inadequatelevels of viruses are present in the specimen.As with any molecular test, if the virus mutates in [facility] region, Covid-19 may not be [...] rce(s) Supporting Document(s) ID Date Data Source [id number] 04/11/2020 09:30:00 PM EDT [place] ([facility]) Name Value Range Interpretation Code Description Data Shelly rce(s) Supporting Document(s) Reported Physicians See Note Reported Physici ans [place] ([facility]) Note: Reported Physicians:Ordering: Ember Arguelloending: John De Souzaitting: Pete De Souza To: Esah Talamantes ID Date Data Source [id number] 04/11/2020 09:30:00 PM EDT [place] ([facility]) Name Value Range Interpretation Code Description Data Shelly rce(s) Supporting Document(s) TOBAR COVID-19 SCHOOL See Note TOBAR COVID- 19 S[employer]OL [place] ([facility]) Note: TOBAR COVID-19 IS AN ISOTHER MAL KRISTEN TECHNOLOGYNORMAL VALUE IS "SARS-COV-2 COVID 19 NOT DETECTED"False negative results may occur if a specimen is improperlycollected,transported or handled.False negative results may also occur if amplicationinhibitors are present in the specimen or if inadequatelevels of viruses are present in the specimen.As with any molecular test, if the virus mutates in [facility] region, Covid-19 may not be detected or may bedetected less predictably.ID NOW COVID-19 is intended for testing a swab directlywithout elution in viral transport media as dilution willresult in decreased detection of low positive samples thatare near the limit of detection of the test.SWAB SAMPLES ELUTED IN VTM ARE NOT APPROPRIATE FOR USE INTHIS TEST.NOSNo Organisms [id number] Organisms Detected ID Date Data Source [id number] 04/11/2020 09:17:00 PM EDT [facility] Name: TOLU RATLIFF : 1955 Age: 64 MR#: [id number] Admit Date: 04/11/20 Provider: Leonardo Alonso Room [...] 30 years old and [facility] in [place]. He reported being replaced before on anticoagulation [...] drug use. Family History: Father due to RI at age 7979 year old, he had [...] mg PO DAILY 04/11/20 04/11/20 04/11/20 History kksodzgppued-elfdyegb-[id number] 1 tab PO DAILY 04/11/20 04/11/20 04/11/20 [...] % (Auto) 68.7, Lymph % (Auto) 20.9, Treasure % (Auto) 8.4, Eos % (Auto) 1.2, [...] Appearance Clear, Urine pH 5.0, Ur Specific [place] 1.010,Urine Protein Negative, Urine Ketones Negative, Urine [...] The patient needs to follow up with music grapher as regard to his DM that might affect his retina. GI stress peptic ulcer prophylaxis: Pepcid DVT prophylaxis: Anticoagulation will be indicated for prolonged admission. I counseled TOLU RATLIFF on the dangers of tobacco use [...] MD> Honorio De Souza MD 04/12/20712 D: EZEQUIEL 04/11/202116 T: EZEQUIEL 04/11/202116 CC: Name Value Range Interpretation Code Description Data Shelly rce(s) Supporting Document(s) ID Date Data Source [id number] 04/11/2020 08:56:00 PM EDT [facility] [address] [place] [address] [phone] NAME SEX PT STATUS ACCOUNT NUMBER TOLU RATLIFF [facility] ER [id number] ORDERING PHYSICIAN LOCATION MEDICAL RECORD NO. Scott Mei MD ER [id number] ATTENDING PHYSICIAN DATE OF DATE OF EXAM/TIME [...] Esha Talamantes M.D.; Rohit Kay MD Techn: SNYDU Trans Dt/Tm: Trans by: DT Prt Dt/Tm: [id number]: Total DLP = 407.00 mGy-cm [id number]: Total Radiation Dose = 2.4013 mSv Lifetime Dose: 4.5186 mSv Name Value Range Interpretation Code Description Data Shelly rce(s) Supporting Document(s) ID Date Data Source [id number] 04/11/2020 08:08:00 PM EDT [facility] Reason for ordering culture: Abnormal fi ndings UAMethod of Collection:: Voided Name Value Range Interpretation Code Description Data Shelly rce(s) Supporting Document(s) Color of Urine [facility] Appearance of Urine CLEAR [facility] pH of Urine by Test strip 5.0 5-8 [facility] Specific gravity of Urine by Refractometry 1.010 1.005-1.030 [facility] Leukocyte esterase [Presence] in Urine by Test strip NEGAT ELVIA [facility] Nitrite [Presence] in Urine by Test strip NEGATIVE [facility] Protein [Presence] in Urine by Test strip NEGATIVE [facility] Glucose [Mass/volume] in Urine by Automated test strip NEGATIVE NEG ATIVE [facility] Ketones [Presence] in Urine by Test strip NEGATIVE [facility] Urobilinogen [Presence] in Urine 0.2-1 EU/dl [facility] Bilirubin.total [Presence] in Urine by Automated test strip NEGATIVE [facility] Erythrocytes [#/volume] in Urine by Test strip NEGATIVE NEGATIVE [facility] URINE MICROSCOPIC? (CIF) NO [facility] ID Date Data Source [id number] 04/11/2020 07:59:00 PM EDT [place] ([facility]) Name Value Range Interpretation Code Description Data Shelly rce(s) Supporting Document(s) Reported Physicians See Note Reported Physici ans [place] ([facility]) Note: Reported Physicians:Ordering: Kian ArguelloAttending: Talita Cannon To: Esha Talamantes ID Date Data Source [id number] 04/11/2020 07:59:00 PM EDT [place] ([facility]) Name Value Range Interpretation Code Description Data Shelly rce(s) Supporting Document(s) Urobilinogen [Presence] in Urine See Note Uro bilinogen Ur Ql [facility] ([facility]) Note: 0.2 EU/dl0.2 [id number] E U/dlResponsible Observer: UROBILINOGEN UROBILINOGEN 300.4500 (C) Erythrocytes [#/volume] in Urine by Test strip NEGATIVE RBC # Ur Strip [place] ([facility]) Note: Responsible Observer: BLOOD BLOOD 300.4652 (C) Protein [Presence] in Urine by Test strip See Note Prot Ur Ql Strip [place] ([facility]) Note: [id number] EResponsible Observer: PROTEIN PROTEIN 300.3750 (C) Ketones [Presence] in Urine by Test strip See Note Ketones Ur Ql Strip [place] ([facility]) Note: [id number] EResponsible Observer: KETONE KETONE 300.3900 (C) Bilirubin.total [Presence] in Urine by Automated test strip See Not e Bilirub Ur Ql Strip.auto [place] ([facility]) Note: [id number] EResponsible Observer: BILIRUBIN BILIRUBIN 300.4550 (C) Glucose [Mass/volume] in Urine by Automated test strip NEGATIVE Glucose Ur Strip.auto-mCnc [place] ([facility]) Note: Responsible Observer: GLUCOSE GLUC OSE 300.3850 (C) Appearance of Urine See Note [facility] Note: CLEARCLEARLCLEARResponsible Observ er: APPEARANCE APPEARANCE 300.3400 (A) Color of Urine See Note Color Ur [facility] ([facility] Note: YELLOWYELLOWLYELLOWResponsible Obs erver: COLOR COLOR 300.3330 (A) Leukocyte esterase [Presence] in Urine by Test strip See Note Leukocyte esterase Ur Ql Strip [facility] ([facility]) Note: [id number] EResponsible Observer: LEUKOCYTES LEUKOCYTES 300.3576 (C) Nitrite [Presence] in Urine by Test strip See Note Nitrite Ur Ql Strip [facility] ([facility]) Note: [id number] EResponsible Observer: NITRITE NITRITE 300.3652 (B) pH of Urine by Test strip 5.0 pH Ur Stri p [place] ([facility]) Note: Responsible Observer: PH PH 300.3 450 (C) Specific gravity of Urine by Refractometry 1.010 Sp Gr Ur Refractometry [place] ([facility]) Note: Responsible Observer: SP GRAVITY U RINE SPECIFIC GRAVITY-MAN 300.3475 (C) URINE MICROSCOPIC? (CIF) NO URINE MICRO SCOPIC? (CIF) [place] ([facility]) Note: Responsible Observer: UA URINE KEENAN ROSCOPIC PENDING 300.4665 (D) Notes [TIMP] See Note NOTES [place] ([facility]) Note: Reason for ordering culture: Abnor mal findings UAMethod of Collection:: Voided ID Date Data Source [id number] 04/11/2020 07:16:00 PM EDT [facility] [address] [place] [address] [phone] NAME SEX PT STATUS ACCOUNT NUMBER Tolu Ratliff AMEYA ER [id number] ORDERING PHYSICIAN LOCATION MEDICAL RECORD NO. Kian Cannon MD ER [id number] ATTENDING PHYSICIAN DATE OF DATE OF EXAM/TIME [...] Trans Dt/Tm: Trans by: DT Prt Dt/Tm: 6914-0574: Total DLP = 683.00 mGy-cm 1709-1214: Total Radiation Dose = 2.1173 mSv Lifetime Dose: 2.1173 mSv Name Value Range Interpretation Code Description Data Shelly rce(s) Supporting Document(s) ID Date Data Source [id number] 04/11/2020 06:34:00 PM EDT [facility] [address] [address] [phone] NAME SEX PT STATUS ACCOUNT NUMBER Tolu Ratliff ER [id number] ORDERING PHYSICIAN LOCATION MEDICAL RECORD NO. Kian Cannon MD ER [id number] ATTENDING PHYSICIAN DATE OF DATE OF EXAM/TIME 1955 04/11/201733 TYPE / EXAM Xray Chest 2 view [...] Trans Dt/Tm: Trans by: DT Prt Dt/Tm: 3752-5114: Total DLP = 0.00 mGy-cm Fluoroscopy Time (in secs): Name Value Range Interpretation Code Description Data Shelly rce(s) Supporting Document(s) ID Date Data Source [id number] [facility] may order repe at test if initial test elevatedPhysician If elevated, reflex second test in 4-6 hrs Name Value Range Interpretation Code Description Data Shelly rce(s) Supporting Document(s) Lactic w Rfx (if elevated) 2.1 mmol/L 0.5-2.2 N [facility] Called to RYAN @ 1835 by DanyellTo eber. Results readback. ID Date Data Source [id number] 04/16/2020 05:57:00 PM EDT [facility] Special Instructions: Lab may order repe at test if initial test elevatedPhysician If elevated, reflex second test in 4-6 hrs Name Value Range Interpretation Code Description Data Shelly rce(s) Supporting Document(s) Bacteria identified in Blood by Culture [facility] NO GROWTH AFTER 5 DAYS ID Date Data Source [id number] 04/11/2020 11:28:00 PM [facility] Special Instructions: from the last lab sample, otherwise, from the next Name Value Range Interpretation Code Description Data Shelly rce(s) Supporting Document(s) Erythrocyte sedimentation rate by Westergren method 13 mm/hr 0-20 N [facility] @Reenter manual test result: 13@by Tori Schultz at 04/11/20 2328. ID Date Data Source [id number] 04/11/2020 06:00:00 PM EDT [facility] Name Value Range Interpretation Code Description Data Shelly rce(s) Supporting Document(s) Leukocytes [#/volume] in Blood by Automated count 10.4 10*3/uL 4.45-1 0.71 N [facility] Erythrocytes [#/volume] in Blood by Automated count 5.03 10*6/uL 4.3- 6.1 N [facility] Hemoglobin [Moles/volume] in Blood 15.5 g/dL 13-18 N [facility] Hematocrit [Volume Fraction] of Blood by Automated count 46.2 % 4 2-52 N [facility] Erythrocyte mean corpuscular volume [Ent itic volume] in Cord blood by Automated count 91.8 fL 80-96 N [facility] ital Erythrocyte mean corpuscular hemoglobin [Entitic mass] by Automated count 30.8 pg 27-31 N [facility] l Erythrocyte mean corpuscular hemoglobin concentration [Mass/volume] in Cord blood 33.5 g/dL 33-37 N [facility] ital Erythrocyte distribution width [Entitic volume] by Automated count 12 % 11-15 N [facility] Platelets [#/volume] in Blood by Automated count 243 10*3/uL 130-472 N [facility] Platelet mean volume [Entitic volume] in Blood 9.3 fL 9.1-13.1 N [facility] Neutrophils/100 leukocytes in Blood by Automated count 68.7 % 41- 77 N [facility] Neutrophils [#/volume] in Blood by Automated count 7.2 U 1.7-7.6 N [facility] Lymphocytes/100 leukocytes in Blood by Automated count 20.9 % 14- 46 N [facility] Lymphocytes [#/volume] in Blood by Automated count 2.2 U 0.6-4.6 N [facility] Monocytes/100 leukocytes in Blood by Automated count 8.4 % 4-12 N [facility] Monocytes [#/volume] in Blood by Automated count 0.9 U 0.2-1.2 N [facility] Eosinophils/100 leukocytes in Blood by Automated count 1.2 % 0-7 N [facility] Eosinophils [#/volume] in Blood by Automated count 0.1 U 0.0-0.5 N [facility] Basophils/100 leukocytes in Blood by Automated count 0.5 % 0.4-1 .3 N [facility] Basophils [#/volume] in Blood by Automated count 0.1 U 0.0-0.2 N [facility] NUCLEATED RED BLOOD CELL 0 % [facility] NUCLEATED RED BLOOD CELL# 0 U [facility] Immature granulocytes [Presence] in Blood by Automated count 0-2 N [facility] Immature granulocytes [#/volume] in Blood by Automated count 0.0 U 0-0.1 N [facility] Manual Differential panel - Blood NO [facility] ID Date Data Source [id number] 04/11/2020 06:25:00 PM EDT [facility] Name Value Range Interpretation Code Description Data Shelly rce(s) Supporting Document(s) Urea nitrogen [Mass/volume] in Serum or Plasma 17 mg/dL 9-23 N [facility] Sodium [Moles/volume] in Serum or Plasma 138 mmol/L 132-146 [facility] Potassium [Moles/volume] in Serum or Plasma 3.9 mmol/L 3.5-5.5 [facility] Chloride [Moles/volume] in Serum or Plasma 103 mmol/L 99-109 [facility] Carbon dioxide, total [Moles/volume] in Serum or Plasma 26 mmol/L 20 -31 N [facility] Anion gap in Serum or Plasma 13 mmol/L 8-16 N [facility] Glucose [Mass/volume] in Serum or Plasma 150 mg/dL 74-106 Above high normal [facility] Creatinine 1.0 mg/dL 0.5-1.1 [facility] Glomerular filtration rate/1.73 sq M.pre dicted [Volume Rate/Area] in Serum or Plasma Greater Than 60 ABOVE 60 [facility] Alanine aminotransferase [Enzymatic acti vity/volume] in Serum or Plasma by With P-5'-P 33 U/L 10-49 N [facility] ital Aspartate aminotransferase [Enzymatic ac tivity/volume] in Serum or Plasma by With P-5'-P 15 U/L 0-33 N [facility] Alkaline phosphatase [Enzymatic activity/volume] in Serum or Plasma 60 U/L 45-129 N [facility] Calcium [Mass/volume] in Serum or Plasma 9.4 mg/dL 8.5-10.1 N [facility] Bilirubin.total [Mass/volume] in Serum or Plasma 0.8 mg/dL 0.3-1.2 N [facility] Albumin [Mass/volume] in Serum or Plasma by Bromocresol purple (BCP) dye binding method 3.8 g/dL 3.2-4.8 N [facility] ital Protein [Mass/volume] in Serum or Plasma 8.0 g/dL 5.7-8.2 N [facility] ID Date Data Source [id number] 04/11/2020 06:25:00 PM EDT [facility] Name Value Range Interpretation Code Description Data Shelly rce(s) Supporting Document(s) Troponin I.cardiac [Mass/volume] in Serum or Plasma Less Than 0.015 0.00-0.09 [facility] Less than 0.09 NG/ML Negative0.10 - 0.77 NG/ML High Risk0.78 NG/ML or Greater PositiveThe WHO defined the cutoff (definition for diagnosis of RI)for this method as 0.78 ng/ml. ID Date Data Source [id number] 04/11/2020 06:24:00 PM [facility] Name Value Range Interpretation Code Description Data Shelly rce(s) Supporting Document(s) Magnesium [Mass/volume] in Serum or Plasma 2.3 mg/dL 1.3-2.7 N [facility] ID Date Data Source [id number] 04/11/2020 06:23:00 PM T [facility] Name Value Range Interpretation Code Description Data Shelly rce(s) Supporting Document(s) Creatine kinase [Enzymatic activity/volume] in Serum or Plasma 158 U/L 33-211 N [facility] Creatine kinase.MB [Enzymatic activity/volume] in Serum or P lasma 3.8 ng/mL 0.0-5.0 N [facility] Chemistry studies (set) 2.4 % [facility] ID Date Data Source [id number] 04/11/2020 05:55:00 PM EDT [place] ([facility]) Name Value Range Interpretation Code Description Data Shelly rce(s) Supporting Document(s) Reported Physicians See Note Reported Physici ans [place] ([facility]) Note: Reported Physicians:Ordering: Ember Arguelloending: Jeremiah, VikramAdmitting: Jeremiah, VikramCopy To: Esha Talamantes ID Date Data Source [id number] 04/11/2020 05:55:00 PM EDT [place] ([facility]) Name Value Range Interpretation Code Description Data Shelly rce(s) Supporting Document(s) Bacteria identified in Blood by Culture See Note Bacteria Bld Cult [place] ([facility]) Note: [id number] growth.[id number] GROWTH AFTE R 5 DAYS ID Date Data Source [id number] 04/11/2020 05:55:00 PM EDT [facility]) Name Value Range Interpretation Code Description Data Shelly rce(s) Supporting Document(s) Bacteria identified in Blood by Culture See Note Bacteria Bld Cult [place] ([facility]) Note: NG5DNo growth.[id number] GROWTH AFTE R 5 DAYS ID Date Data Source [id number] 04/11/2020 05:55:00 PM EDT [place] ([facility]) Name Value Range Interpretation Code Description Data Shelly rce(s) Supporting Document(s) Lactic w Rfx (if elevated) 2.1 MilliMolesPerLiter_[Substance_Concentration_Units] Normal Lactic w Rfx (if elevated) [facility]) Note: Called to RYAN @ 2215 by Tori Kenny. Results readback.Responsible Observer: Lactic Acid Lactic Acid 400.2831 (G) Notes [TIMP] See Note NOTES [place] ([facility]) Note: Special Instructions: Lab may orde r repeat test if initial test elevatedPhysician If elevated, reflex second test in 4-6 hrs ID Date Data Source [id number] 04/11/2020 05:55:00 PM EDT [place] ([facility]) Name Value Range Interpretation Code Description Data Shelly rce(s) Supporting Document(s) Reported Physicians See Note Reported Physici ans [place] ([facility]) Note: Reported Physicians:Ordering: Ember Arguelloending: Talita Cannon To: Esha Talamantes ID Date Data Source [id number] 04/11/2020 05:55:00 PM EDT [place] ([facility]) Name Value Range Interpretation Code Description Data Shelly rce(s) Supporting Document(s) Alanine aminotransferase [Enzymatic acti vity/volume] in Serum or Plasma by With P-5'-P 33 enzyme_unit_per_liter Normal ALT SerPl w P-5' -P-cCnc [place] ([facility]) Note: Responsible Observer: SGPT/ALT SGP T/ALT 400.1750 (G) Calcium [Mass/volume] in Serum or Plasma 9.4 MilliGramsPerDeciLiter_[Mass_Concentration_Units] Normal Calcium [employer] ([facility]) Note: Responsible Observer: Calcium Calc ium 400.2500 (G) Bilirubin.total [Mass/volume] in Serum or Plasma 0.8 MilliGramsPerDeciLiter_[Mass_Concentration_Units] Normal Bilirub [employer] ([facility]) Note: Responsible Observer: T ABDIRAHMAN Total Bilirubin 400.2600 (G) Carbon dioxide, total [Moles/volume] in Serum or Plasm a 26 MilliMolesPerLiter_[Substance_Concentration_Units] Normal CO2 [facility] ([facility]) Note: Responsible Observer: CO2 Carbon D ioxide 400.1400 (G) Chloride [Moles/volume] in Serum or Plasma 103 MilliMolesPerLiter_[Substance_Concentration_Units] Normal Chloride [facility] ([facility]) Note: Responsible Observer: Chloride Chl oride 400.1250 (G) Glucose [Mass/volume] in Serum or Plasma 150 MilliGramsPerDeciLiter_[Mass_Concentration_Units] Above high normal Glucose [employer] ([facility]) Note: Responsible Observer: Glucose Gluc ose 400.1500 (G) Potassium [Moles/volume] in Serum or Plasma 3.9 MilliMolesPerLiter_[Substance_Concentration_Units] Normal Potassium [facility] ([facility]) Note: Responsible Observer: K Potassium 400.1210 (G) Protein [Mass/volume] in Serum or Plasma 8.0 GramsPerDeciLiter_[Mass_Concentration_Units] Normal Pro t [employer] ([facility]) Note: Responsible Observer: TP Total Pro tein 400.2800 (G) Sodium [Moles/volume] in Serum or Plasma 138 MilliMolesPerLiter_[Substance_Concentration_Units] Normal Sodium [facility] ([facility]) Note: Responsible Observer: Sodium Sodiu m 400.1100 (G) Aspartate aminotransferase [Enzymatic ac tivity/volume] in Serum or Plasma by With P-5'-P 15 enzyme_unit_per_liter Normal AST SerPl w P-5' -P-[facility] ([facility]) Note: Responsible Observer: SGOT / AST S GOT / AST 400.1900 (G) Urea nitrogen [Mass/volume] in Serum or Plasma 17 MilliGramsPerDeciLiter_[Mass_Concentration_Units] Normal BUN [employer] ([facility]) Note: Responsible Observer: BUN Blood Ur ea Nitrogen 400.1000 (G) Anion gap in Serum or Plasma 13 MilliMolesPerLiter_[Substance_Concentration_Units] Normal Anion Gap [facility] ([facility]) Note: Responsible Observer: ANION GAP AN ION GAP 400.1402 (E) Albumin [Mass/volume] in Serum or Plasma by Bromocresol purple (BCP) dye binding method 3.8 GramsPerDeciLiter_[Mass_Concentration_Units] Normal Albumin [facility] ([facility]) Note: Responsible Observer: Albumin [place] 400.2700 (G) Alkaline phosphatase [Enzymatic activity/volume] in Se rum or Plasma 60 enzyme_unit_per_liter Normal ALP [facility] ( [facility]) Note: Responsible Observer: ALP Alkaline Phosphatase 400.2000 (G) Glomerular filtration rate/1.73 sq M.pre dicted [Volume Rate/Area] in Serum or Plasma Greater Than 60 GFR/BSA.pred SerPlBld-ArV Rat [place] ([facility]) Note: Responsible Observer: GFR Glomerul ar Filt Rate Calc 400.1605 (D) Creatinine [Moles/volume] in Vitreous fluid 1.0 MilliGramsPerDeciLiter_[Mass_Concentration_Units] Normal Creatinine [place] ([facility]) Note: Responsible Observer: Creatinine C reatinine 400.1600 (G) ID Date Data Source [id number] 04/11/2020 05:55:00 PM EDT [place] ([facility]) Name Value Range Interpretation Code Description Data Shelly rce(s) Supporting Document(s) Erythrocyte mean corpuscular volume [Ent itic volume] in Cord blood by Automated count 91.8 FemtoLiter_[SI_Volume_Units] Normal MCV Bld Co Auto [place] ([facility]) Note: Responsible Observer: MCV MCV 100 .0600 (B) Erythrocyte distribution width [Entitic volume] by Automated cou nt 12 percent Normal RDW RBC Auto [place] ([facility]) Note: Responsible Observer: RDW RDW 100 .0900 (B) Manual Differential panel - Blood NO Ma nual diff Bld [place] ([facility]) Note: Responsible Observer: CBC Manual D ifferential Added 100.1990 (B) Platelet mean volume [Entitic volume] in Blood 9.3 FemtoLite r_[SI_Volume_Units] Normal PMV Bld [place] ([facility]) Note: Responsible Observer: MPV MPV 100 .1100 (B) Immature granulocytes [Presence] in Blood by Automated count See No te Normal Imm Granulocytes Bld Ql Auto [place] ([facility]) Note: [id number] Ob 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% IG% 100.1375 (B) Hematocrit [Volume Fraction] of Blood by Automated count 46.2 perce nt Normal Hct VFr Bld Auto [place] ([facility]) Note: Responsible Observer: HEMATOCRIT H EMATOCRIT 100.0500 (B) Erythrocyte mean corpuscular hemoglobin concentration [Mass/volume] in Cord blood 33.5 GramsPerDeciLiter_[Mass_Concentration_Units] Normal MCHC BldCo-mCnc [place] ([facility]) Note: Responsible Observer: MCHC MCHC 1 00.0800 (B) Immature granulocytes [#/volume] in Blood by Automated count 0.0 Un it Imm Granulocytes # Bld Auto [place] ([facility]) Note: Responsible Observer: IG# IG# 100 .1400 (B) Monocytes/100 leukocytes in Blood by Automated count 8.4 percent Normal Monocytes/leuk NFr Bld Auto [place] ([facility]) Note: Responsible Observer: MONO % MONO % 100.1225 (B) Hemoglobin [Moles/volume] in Blood 15.5 GramsPerDeciLiter_[Mass_Concentration_Units] Normal Hgb Bld-sCnc [place] ([facility]) Note: Responsible Observer: HGB HEMOGLOB IN 100.0400 (B) Leukocytes [#/volume] in Blood by Automated count 10.4 ThousandsPerMicroLiter_[Number_Concentration_Units] Normal WBC # Bld Auto [place] ([facility]) Note: Responsible Observer: WBC WHITE BL OOD COUNT 100.0100 (E) Basophils [#/volume] in Blood by Automated count 0.1 Unit Normal Basophils # Bld Auto [place] ([facility]) Note: Responsible Observer: BASO # BASO# 100.1350 (B) Basophils/100 leukocytes in Blood by Automated count 0.5 percent Normal Basophils/leuk NFr Bld Auto [place] ([facility]) Note: Responsible Observer: BASO % BASO % 100.1325 (B) Eosinophils [#/volume] in Blood by Automated count 0.1 Unit Normal Eosinophil # Bld Auto [place] ([facility]) Note: Responsible Observer: EOS # EOS# 100.1300 (D) Eosinophils/100 leukocytes in Blood by Automated count 1.2 percent Normal Eosinophil/leuk NFr Bld Auto [place] ([facility]) Note: Responsible Observer: EOS % EOS % 100.1275 (B) Lymphocytes [#/volume] in Blood by Automated count 2.2 Unit Normal Lymphocytes # Bld Auto [place] ([facility]) Note: Responsible Observer: LYMPH # LYMP H# 100.1200 (B) Lymphocytes/100 leukocytes in Blood by Automated count 20.9 percent Normal Lymphocytes/leuk NFr Bld Auto [place] ([facility]) Note: Responsible Observer: LYMPH % LYMP H % 100.1175 (B) Monocytes [#/volume] in Blood by Automated count 0.9 Unit Normal Monocytes # Bld Auto [place] ([facility]) Note: Responsible Observer: MONO # MONO# 100.1250 (C) Neutrophils [#/volume] in Blood by Automated count 7.2 Unit Normal Neutrophils # Bld Auto [place] ([facility]) Note: Responsible Observer: NEUT# NEUT# 100.1150 (B) Neutrophils/100 leukocytes in Blood by Automated count 68.7 percent Normal Neutrophils/leuk NFr Bld Auto [place] ([facility]) Note: Responsible Observer: NEUT% NEUT% 100.1125 (B) Platelets [#/volume] in Blood by Automated count 243 ThousandsPerMicroLiter_[Number_Concentration_Units] Normal Platelet # Bld Auto [place] ([facility]) Note: Responsible Observer: PLATELET COU NT PLATELET COUNT 100.1000 (D) Erythrocyte mean corpuscular hemoglobin [Entitic mass] by Automated count 30.8 PicoGram_[SI_Mass_Units] Normal MCH RBC Qn Auto [place] ([facility]) Note: Responsible Observer: MCH MCH 100 .0700 (B) Erythrocytes [#/volume] in Blood by Automated count 5. 03 MillionsPerMicroLiter_[Number_Concentration_Units] Normal RBC # Bld Auto [place] ([facility]) Note: Responsible Observer: RBC Red Bloo d Count 100.0300 (B) NUCLEATED RED BLOOD CELL# 0 Unit NUCLEATED RED BLOOD CELL# [place] ([facility]) Note: Responsible Observer: NRBC# NUCLEA SABRINA RBC 100.1362 (A) NUCLEATED RED BLOOD CELL 0 percent NUCLEATED R ED BLOOD CELL [place] ([facility]) Note: Responsible Observer: NRBC% NRBC% 100.1360 (B) ID Date Data Source [id number] 04/11/2020 05:55:00 PM EDT [place] ([facility]) Name Value Range Interpretation Code Description Data Shelly rce(s) Supporting Document(s) Reported Physicians See Note Reported Physici ans [place] ([facility]) Note: Reported Physicians:Ordering: Kian ArguelloAttending: Talita Cannon To: Esha Talamantes ID Date Data Source [id number] 04/11/2020 05:55:00 PM EDT [place] ([facility]) Name Value Range Interpretation Code Description Data Shelly rce(s) Supporting Document(s) Magnesium [Mass/volume] in Serum or Plasma 2.3 MilliGramsPerDeciLiter_[Mass_Concentration_Units] Normal [facility] [place] ([facility]) Note: Responsible Observer: Magnesium Ma gnesium 400.3300 (G) ID Date Data Source [id number] 04/11/2020 05:55:00 PM EDT [place] ([facility]) Name Value Range Interpretation Code Description Data Shelly rce(s) Supporting Document(s) Reported Physicians See Note Reported Physici ans [place] ([facility]) Note: Reported Physicians:Ordering: Marly Ferrarattending: Leia De Souzadmitting: Honorio De SouzaCopy To: Shruthi De SouzakramCopninfa To: Esha Talamantes ID Date Data Source [id number] 04/11/2020 05:55:00 PM EDT [place] ([facility]) Name Value Range Interpretation Code Description Data Shelly rce(s) Supporting Document(s) Erythrocyte sedimentation rate by Westergren method 13 Normal [facility] [place] ([facility]) Note: @Reenter manual test result: 13@by Tori Child at 04/11/20 2328.Responsible Observer: SED RATE SED RATE 100.6400 (B) Notes [TIMP] See Note NOTES [place] ([facility]) Note: Special Instructions: from the las t lab sample, otherwise, from the next ID Date Data Source [id number] 04/11/2020 05:55:00 PM EDT [place] ([facility]) Name Value Range Interpretation Code Description Data Shelly rce(s) Supporting Document(s) Reported Physicians See Note [facility] Note: Reported Physicians:Ordering: Kian ArguelloAttending: Talita Cannon To: Esha Talamantes ID Date Data Source [id number] 04/11/2020 05:55:00 PM [facility] ([facility]) Name Value Range Interpretation Code Description Data Shelly rce(s) Supporting Document(s) Chemistry studies (set) 2.4 percent Chemistry s [facility]) Note: Responsible Observer: CK RELATIVE % CK RELATIVE % 600.0055 (A) Creatine kinase [Enzymatic activity/volume] in Serum o r Plasma 158 enzyme_unit_per_liter Normal CK [facility]) Note: Responsible Observer: CK Creatine Kinase 400.9115 (G) Creatine kinase.MB [Enzymatic activity/volume] in Seru m or Plasma 3.8 NanoGramsPerMilliLiter_[Mass_Concentration_Units] Normal CK MB [facility]) Note: Responsible Observer: CKMB Creatin e Kinase MB 600.0050 (G) ID Date Data Source [id number] 04/11/2020 05:55:00 PM [facility] ([facility]) Name Value Range Interpretation Code Description Data Shelly rce(s) Supporting Document(s) Reported Physicians See Note Reported Physici [facility] ([facility]) Note: Reported Physicians:Ordering: Kian ArguelloAttending: Talita Cannon To: Esha Talamantes ID Date Data Source [id number] 04/11/2020 05:55:00 PM [facility] ([facility]) Name Value Range Interpretation Code Description Data Shelly rce(s) Supporting Document(s) Troponin I.cardiac [Mass/volume] in Serum or Plasma Less Than 0.015 Normal Troponin I [facility]) Note: Less than 0.09 NG/ML Negative 0.10 - 0.77 NG/ML High Risk0.78 NG/ML or Greater PositiveThe WHO defined the cutoff (definition for diagnosis of RI)for this method as 0.78 ng/ml.Responsible Observer: Troponin I Troponin I 600.1101 (G) ID Date Data Source [id number] 04/11/2020 05:40:00 PM EDT [facility] ED Physician Documentation NAME: TOLU RATLIFF : 1955 AGE: 64 MR#: [id number] SERVICE DATE: 04/11/[address]: Kian Cannon MD PRIMARY CARE DR: Esha Talamantes M.D. ROOM#: 295 HPI (Adult, General) <Kian Cannon MD - Last Filed: 04/11/20 18:47> General Chief Complaint: Chest pain Stated Complaint: CHEST HIP PAIN Resident LT, travel outisde home, exposure to hot tubs:: [...] Smoking Status: Current every day smoker ROS <iKan Cannon MD - Last Filed: 04/11/20 18:47> [...] % (Auto) 68.7, Lymph % (Auto) 20.9, Treasure % (Auto) 8.4, Eos % (Auto) 1.2, [...] Appearance Clear, Urine pH 5.0, Ur Specific Garfield 1.010,Urine Protein Negative, Urine Ketones Negative, Urine [...] % (Auto) 68.7, Lymph % (Auto) 20.9, Treasure % (Auto) 8.4, Eos % (Auto) 1.2, [...] Appearance Clear, Urine pH 5.0, Ur Specific Garfield 1.010,Urine Protein Negative, Urine Ketones Negative, Urine [...] Mei MD> Scott Mei MD 04/11/202109 D: [facility] 04/11/201739 T: [facility] 04/11/201739 CC: Esha Talamantes M.D. Name Value Range Interpretation Code Description Data Shelly rce(s) Supporting Document(s) ID Date Data Source [id number] 04/11/2020 12:00:00 AM EDT [facility] Name Value Range Interpretation Code Description Data Shelly rce(s) Supporting Document(s) SARS-CoV2 Rapid PCR [facility] This lab was ordered by [facility] and reported by [facility]. ID Date Data Source [id number] 08/12/2019 07:48:00 AM EST [place] ([facility]) Name Value Range Interpretation Code Description Data Shelly rce(s) Supporting Document(s) Reported Physicians See Note Reported Physici ans [place] ([facility]) Note: Reported Physicians:Ordering: Esha De La Garza AAttending: ESHA TALAMANTESConsulting: Alex TALAMANTES To: Esha Talamantes ID Date Data Source [id number] 08/12/2019 07:48:00 AM EST [place] ([facility]) Name Value Range Interpretation Code Description Data Shelly rce(s) Supporting Document(s) CPK 102 U/L CPK [place] ([facility]) Note: Responsible Observer: () ID Date Data Source [id number] 08/12/2019 07:48:00 AM EST [place] ([facility]) Name Value Range Interpretation Code Description Data Shelly rce(s) Supporting Document(s) Reported Physicians See Note Reported Physici ans [place] ([facility]) Note: Reported Physicians:Ordering: Esha De La Garza AAttending: ESHA TALAMANTESConsulting: Alex TALAMANTES To: Esha Talamantes ID Date Data Source [id number] 08/12/2019 07:48:00 AM EST [place] ([facility]) Name Value Range Interpretation Code Description Data Shelly rce(s) Supporting Document(s) A/G RATIO 1.7 A/G RATIO [place] ([facility]) Note: Responsible Observer: () AFR AMER GFR >60 mL/min AFR AMER GFR [place] ([facility]) Note: Male GFR Interprentation 20- 49 [...] () 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 64 yrs AGE [place] ([facility]) Note: Responsible Observer: () Albumin [Mass/volume] in Blood by Bromocresol purple ( BCP) dye binding method 4.3 G/DL ALBUMIN [place] ([facility]) Note: Responsible Observer: () ALKALINE PHOS 48 U/L ALKALINE PHOS [place] ([facility]) Note: Responsible Observer: () Anion gap in Body fluid 12.0 mmol/L ANION GAP [place] ([facility]) Note: Responsible Observer: () BUN 15 MG/DL BUN [place] ([facility]) Note: Responsible Observer: () BUN/CREAT 19 BUN/CREAT [place] ([facility]) Note: Responsible Observer: () Calcium [Moles/volume] in Urine collected for unspecified durati on 9.5 MG/DL CALCIUM [place] ([facility]) Note: Responsible Observer: () Chloride [Moles/volume] in Serum, Plasma or Blood 103 mEq/L CHLORIDE [place] ([facility]) Note: Responsible Observer: () CO2 24 MEQ/L CO2 [place] ([facility]) Note: Responsible Observer: () COMPREHENSIVE METABOLIC PANEL See Note COMPRE HENSIVE METABOLIC PANEL [place] ([facility]) Note: COMPREHENSIVE METABOLIC PANELR esponsible Observer: () Creatinine [Moles/volume] in Vitreous fluid 0.8 MG/DL CREATININE [place] ([facility]) Note: Responsible Observer: () Globulin [Mass/time] in 24 hour Urine 2.5 GM/DL GLOBULIN [place] ([facility]) Note: Responsible Observer: () Glucose [Mass/volume] in Urine collected for unspecified duratio n 184 MG/DL Above high normal GLUCOSE [place] ([facility]) Note: Responsible Observer: () NON-AA GFR >60 mL/min NON-AA GFR [place] ([facility]) Note: Responsible Observer: () Potassium [Mass/volume] in Blood 4.7 mEq/L POT ASSIUM [place] ([facility]) Note: Responsible Observer: () SGOT/AST 21 U/L SGOT/AST [place] ([facility]) Note: Responsible Observer: () SGPT/ALT 30 U/L SGPT/ALT [place] ([facility]) Note: Responsible Observer: () Sodium [Moles/volume] in Serum, Plasma or Blood 139 mEq/L SODIUM [place] ([facility]) Note: Responsible Observer: () TOTAL BILI <0.7 MG/DL TOTAL BILI [place] ([facility]) Note: Responsible Observer: () TOTAL PROTEIN 6.8 G/DL TOTAL PROTEIN [place] ([facility]) Note: Responsible Observer: () ID Date Data Source [id number] 08/12/2019 07:48:00 AM EST [place] ([facility]) Name Value Range Interpretation Code Description Data Shelly rce(s) Supporting Document(s) Reported Physicians See Note Reported Physici ans [place] ([facility]) Note: Reported Physicians:Ordering: Chirag mulligan Esha AAttending: VINITA, JOCELYNConsulting: VINITA, JOCELYNCopy To: Arminda Talamantescelyn ID Date Data Source [id number] 08/12/2019 07:48:00 AM EST [place] ([facility]) Name Value Range Interpretation Code Description Data Shelly rce(s) Supporting Document(s) CREAT UR 137.6 MG/DL Above high normal CREAT UR [place] ([facility]) Note: Responsible Observer: (BLD) MA/CREAT RATIO 2.76 MCG/MG MA/CREAT RATIO JEMIMA TEJADA ([facility]) Note: The [place] [employer] ion states that Microalbuminemia is present if the Microalbumin/Creatinine ratio exceeds 30 mcg/mg. The threshold for Clinical Albuminuria is reached at 300 mcg/mg. The classification of a patient should be based upon at least 2 or 3 abnormal results on specimens collected within a 3 to 6 month timeframe.Responsible Observer: (BLD) MICROALBUMIN <12.00 MG/L Above high normal MICROALBUMIN [facility] Note: Responsible Observer: (BLD) ID Date Data Source [id number] 08/12/2019 07:48:00 AM [facility] ([facility]) Name Value Range Interpretation Code Description Data [facility] rce(s) Supporting Document(s) Reported Physicians See Note Reported [facility] ([facility]) Note: Reported Physicians:Ordering: Chirag mulligan Esha AAttending: ARMINDA TALAMANTESCELYNConsulting: VINITA JOCELYNCopy To: Esha Talamantes ID Date Data Source [id number] 08/12/2019 07:48:00 AM EST [place] ([facility]) Name Value Range Interpretation Code Description Data Shelly rce(s) Supporting Document(s) PSA 0.95 ng/mL PSA [place] ([facility]) Note: BLDoPSA INTERP RETATIONBLDx The PSA assay [...] interchangeably.Responsible Observer: () ID Date Data Source [id number] 08/12/2019 07:48:00 AM [facility] ([facility]) Name Value Range Interpretation Code Description Data Shelly rce(s) Supporting Document(s) Reported Physicians See Note Reported Physici ans [place] ([facility]) Note: Reported Physicians:Ordering: Esha De La Garza AAttending: ESHA TALAMANTESConsulting: ESHA TALAMANTESCopy To: Esha Talamantes ID Date Data Source [id number] 08/12/2019 07:48:00 AM [facility] ([facility]) Name Value Range Interpretation Code Description Data Shelly rce(s) Supporting Document(s) Cholesterol [Moles/volume] in Pericardial fluid 177 MG/DL CHOLESTEROL [facility]) Note: Responsible Observer: (BLD) CVE PANEL See Note CVE PANEL [place] ([facility]) Note: LIPID PANELResponsible Observe r: (BLD) HDL 48 MG/DL HDL [place] ([facility]) Note: Responsible Observer: (BLD) Cholesterol in LDL [Mass/volume] in Serum or Plasma by Direct as say 91 mg/dL LDL [facility]) Note: Responsible Observer: (BLD) LDL/HDL 1.90 LDL/HDL [place] ([facility]) Note: CVE RISK CHOL/HD L LDL/HDLMEN: 1/2 AVERAGE 3.43 1.00 AVERAGE 4.97 3.55 2X AVERAGE 9.55 6.25 3X AVERAGE 23.99 7.99WOMEN: 1/2 AVERAGE 3.27 1.47 AVERAGE 4.44 3.22 2X AVERAGE 7.05 5.03 3X AVERAGE 11.04 6.14Responsible Observer: (BLD) RISK FACTOR 3.7 RISK FACTOR [place] ([facility]) Note: Responsible Observer: (BLD) TRIGLYCERIDES 272 MG/DL Above high normal TR[facility]LYCERIDES [facility] Note: Responsible Observer: (BLD) ID Date Data Source [id number] 08/12/2019 07:48:00 AM [facility] ([facility]) Name Value Range Interpretation Code Description Data Shelly rce(s) Supporting Document(s) Reported Physicians See Note Reported Physici ans [place] ([facility]) Note: Reported Physicians:Ordering: Beard e Esha AAttending: VINITA, JOCELYNConsulting: VINITA, JOCELYNCopy To: Vinita Esha ID Date Data Source [id number] 08/12/2019 07:48:00 AM [facility] ([facility]) Name Value Range Interpretation Code Description Data Shelly rce(s) Supporting Document(s) Testosterone, Serum 137 ng/dL Below low normal Testostero ne, Serum [place] ([facility]) Note: Adult male reference interval is b ased on a population ofhealthy nonobese males (BMI <30) between 19 and 39 years old.Travison, et.al. JCEM 2017,102;1161- 1173. PMID: [id number].Responsible Observer: (rfl) ID Date Data Source [id number] 08/13/2019 08:10:00 AM [facility] Name Value Range Interpretation Code Description Data Shelly rce(s) Supporting Document(s) Testosterone [Mass/volume] in Serum or Plasma 137 ng/dL 264-916 L [facility] Adult male reference interval is based o n a population ofhealthy nonobese males (BMI <30) between 19 and 39 years old.Travison, et.al. JCEM 2017,102;5009-7351. PMID: [id number]. ID Date Data Source [id number] 08/12/2019 01:01:00 PM [facility] Name Value Range Interpretation Code Description Data Shelly rce(s) Supporting Document(s) [facility] Cholesterol [Mass/volume] in Serum or Plasma 177 MG/DL 131 - 200 [facility] Deprecated Triglyceride [Mass/volume] in Serum or Plasma 272 MG/DL 3 5 - 160 H [facility] HDL 48 MG/DL 29 - 86 [facility] Cholesterol in LDL/Cholesterol in HDL [Mass Ratio] in Serum or Plasma 91 mg/dL 65 - 175 [facility] Cholesterol.total/Cholesterol in HDL [Mass Ratio] in Serum o r Plasma 3.7 3.4 - 4.9 [facility] LDL/HDL 1.90 1.00 - 3.55 [facility] ital CVE RISK CHOL/HDL LDL/HDLMEN: 1/2 AVERAGE 3.43 1.00 AVERAGE 4.97 3.55 2X AVERAGE 9.55 6.25 3X AVERAGE 23.99 7.99WOMEN: 1/2 AVERAGE 3.27 1.47 AVERAGE 4.44 3.22 2X AVERAGE 7.05 5.03 3X AVERAGE 11.04 6.14 ID Date Data Source [id number] 08/12/2019 12:41:00 PM [facility] Name Value Range Interpretation Code Description Data Shelly rce(s) Supporting Document(s) Prostate specific Ag [Mass/volume] in Serum or Plasma 0.95 ng/mL 0.00 - 4.00 [facility] \\BLDo\\PSA INTERPRETA TION\\BLDx\\ The PSA assay [...] be used interchangeably. ID Date Data Source [id number] 08/12/2019 12:10:00 PM [facility] Name Value Range Interpretation Code Description Data Shelly rce(s) Supporting Document(s) COMPREHENSIVE METABOLIC PANEL [facility] COMPREHENSIVE METABOLIC PANEL Sodium [Moles/volume] in Serum or Plasma 139 mEq/L 134 - 153 [facility] Potassium [Moles/volume] in Serum or Plasma 4.7 mEq/L 3.6 - 5.0 [facility] Chloride [Moles/volume] in Serum or Plasma 103 mEq/L 98 - 107 [facility] Carbon dioxide, total [Moles/volume] in Serum or Plasma 24 MEQ/L 22 - 30 [facility] Glucose [Mass/volume] in Serum or Plasma 184 MG/DL 65 - 110 H [facility] BUN 15 MG/DL 7 - 21 [facility] al Creatinine [Mass/volume] in Serum or Plasma 0.8 MG/DL 0.7 - 1.5 [facility] BUN/CREAT 19 8 - 27 [facility] al Protein [Mass/volume] in Serum or Plasma 6.8 G/DL 6.3 - 8.2 [facility] Albumin [Mass/volume] in Serum or Plasma 4.3 G/DL 3.9 - 5.0 [facility] Globulin [Mass/volume] in Serum by calculation 2.5 GM/DL 2.4 - 3.2 [facility] A/G RATIO 1.7 0.8 - 2.0 [facility] Calcium [Mass/volume] in Serum or Plasma 9.5 MG/DL 8.4 - 10.2 [facility] Bilirubin.total [Mass/volume] in Serum or Plasma <0.7 MG/DL 0.2 - 1.3 [facility] Alkaline phosphatase [Enzymatic activity/volume] in Serum or Plasma 48 U/L 38 - 126 [facility] Aspartate aminotransferase [Enzymatic activity/volume] in Serum or Plasma 21 U/L 5 - 40 [facility] Alanine aminotransferase [Enzymatic activity/volume] in Seru m or Plasma 30 U/L 7 - 56 [facility] Anion gap 3 in Serum or Plasma 12.0 mmol/L 8.0 - 16.0 [facility] AGE 64 yrs [facility] al NON-AA GFR >60 mL/min [facility] ital AFR AMER GFR >60 mL/min [facility] Male GFR In terprentation [...] >32 mL/min Normal ID Date Data Source [id number] 08/12/2019 12:10:00 PM [facility] Name Value Range Interpretation Code Description Data Shelly rce(s) Supporting Document(s) CREAT UR 137.6 MG/DL 0.0 - 30.0 H [facility] MICROALBUMIN <12.00 MG/L 0.00 - 0.00 H [facility] MA/CREAT RATIO 2.76 MCG/MG 0.01 - 30.00 [facility] The [place] [employer] st ates that Microalbuminemia is present if the Microalbumin/Creatinine ratio exceeds 30 mcg/mg. The threshold for Clinical Albuminuria is reached at 300 mcg/mg. The classification of a patient should be based upon at least 2 or 3 abnormal results on specimens collected within a 3 to 6 month timeframe. ID Date Data Source [id number] 08/12/2019 12:03:00 PM [facility] Name Value Range Interpretation Code Description Data [facility] rce(s) Supporting Document(s) Creatine kinase [Enzymatic activity/volume] in Serum or Plasma 1 02 U/L 30 - 170 [facility] ID Date Data Source [id number] 07/09/2019 08:53:[address] [facility] [address] [place] [address] PHONE: [phone] FAX: [phone] Name ..............: APRYL Ma Acct Number ...........................: [id number] ROOM. ............: TR-1A Number ............................: [id number] Stay type.........: E/R Discharge Date...............:07/07/19 Admit Date .....: 07/07/19 Admit Phys .............................: SIVA TOPETE Date of ..: 1955 Family Phys ...........................: VINITA HUNTCE Phone..............: [phone] Age.................................:63 Film# ...............:[id number] Sex.................................:M Unsigned transcriptions are preliminary reports and do not represent a medical or legal document EKG [id number] COMPLETE:07/08/19 07:30 SAVAGE [id number] Please See Scanned Results. Name Value Range Interpretation Code Description Data Shelly rce(s) Supporting Document(s) ID Date Data Source [id number] 07/08/2019 09:58:00 [place] [address] PHONE: [phone] FAX: [phone] Name .................. : APRYL Ma Acct Number.................. : [id number] ROOM. ................. : TR-1A MR Number ................... : [id number] Stay type ............. : E/R Discharge Date......... ... : 07/07/19 Admit Date ......... : 07/07/19 Admit Phys .................... : SIVA TOPETE Date of ....... : 1955 Family Phys ................... : VINITA RUFUS Phone .................. : [phone] Age ................................ : 63 Film# .................. .:[id number] Sex ................................. : M Unsigned transcriptions are preliminary reports and do not represent a medical or legal document CT CERV SPINE W/O CONTRAS [id number] COMPLETE:07/07/19 13:35 [id number] Reason(s): Pain CT STUDY OF THE CERVICAL [...] MD , 07/08/19 09:58, RND Transcribe Initials: JEROD , Transcribe Date: 07/07/19 17:01, Dictation Date: Copy for: HANNAH YEN via fax Copy for: VINITA BALBUENA via fax Page 1 of [address] [place] [address] PHONE: [phone] FAX: [phone] Name .................. : APRYL Ma Acct Number.................. : [id number] ROOM. ................. : TR-1A MR Number ................... : [id number] Stay type ............. : E/R Discharge D ate......... ... : 07/07/19 Admit Date ......... : 07/07/19 Admit Phys .................... : SIVA TOPETE Date of ....... : 1955 Family Phys ................... : VINITA HOOPER Phone .................. : [phone] Age ................................ : 63 Film# .................. .:[id number] Sex ................................. : M Unsigned transcriptions are preliminary reports and do not represent a medical or legal document CT CERV SPINE W/O CONTRAS [id number] COMPLETE:07/07/19 13:35 [id number] Reason(s): Pain Copy for: EMERGENCY DEPT via modem Copy for: 710 MED REC DISCHARGED Page 2 of 2 Name Value Range Interpretation Code Description Data Shelly rce(s) Supporting Document(s) ID Date Data Source [id number] 07/08/2019 09:54:00 AM EST [facility] [address] [place] [address] PHONE: [phone] FAX: [phone] Name .................. : APRYL Ma Acct Number.................. : [id number] ROOM. ................. : [facility] MR Number ................... : [id number] Stay type ............. : E/R Discharge Date......... ... : 07/07/19 Admit Date ......... : 07/07/19 Admit Phys .................... : SIVA TOPETE Date of ....... : 1955 Family Phys ................... : Shaser Phone .................. : [phone] Age ................................ : 63 Film# .................. .:[id number] Sex ................................. : M Unsigned transcriptions are preliminary reports and do not represent a medical or legal document ELBOW COMPLETE [id number] COMPLETE:07/07/19 13:37 [id number] Reason(s): Pain LEFT ELBOW SERIES: FINDINGS: No [...] MD , 07/08/19 09:55, RND Transcribe Initials: DZ , Transcribe Date: 07/07/19 17:04, Dictation Date: Copy for: HANNAH YEN via fax Copy for: VINITA BALBUENA via fax Copy for: EMERGENCY DEPT via modem Copy for: 710 MED REC DISCHARGED Page 1 of 1 Name Value Range Interpretation Code Description Data Shelly rce(s) Supporting Document(s) ID Date Data Source [id number] 07/08/2019 09:54:00 AM EST [facility] [address] [place] [address] PHONE: [phone] FAX: [phone] Name .................. : APRYL Ma Acct Number.................. : [id number] ROOM. ................. : [address] Number ................... : [id number] Stay type ............. : E/R Discharge Date......... ... : 07/07/19 Admit Date ......... : 07/07/19 Admit Phys .................... : SIVA TOPETE Date of ....... : 1955 Family Phys ................... : VINITA HOOPER Phone .................. : [phone] Age ................................ : 63 Film# .................. .:[id number] Sex ................................. : M Unsigned transcriptions are preliminary reports and do not represent a medical or legal document CHEST 2 VIEWS [id number] COMPLETE:07/07/19 13:35 88255 Reason(s): Congestion CHEST X-RAY: 2-VIEWS HISTORY: Congestion [...] By Sea Moreno MD , 07/08/19 09:54, RND Transcribe Initials: DZ , Transcribe Date: 07/07/19 16:27, Dictation Date: Copy for: HANNAH YEN via fax Copy for: VINITA BALBUENA via fax Copy for: EMERGENCY DEPT via modem Copy for: 710 MED REC DISCHARGED Page 1 of 1 Name Value Range Interpretation Code Description Data Shelly rce(s) Supporting Document(s) ID Date Data Source [id number] 07/07/2019 01:18:00 PM EST [facility] 1 OrderSheet [facility] Emergency Department [address] [place] [address] Phone #: [phone] 07/07/2019 13:01 Patient: TOLU RATLIFF Sex: M : 1955 Age: 63yWEIGHT:88.4 kg (S) HEIGHT:71 inches (S) BMI:27.2ALLERGIES: Shellfish-derived ProductsCHIEF COMPLAINT: pain, swelling, altered sensation, pain, swelling, altered sensation, Lt, shoulders, in:, Lt,elbowsDIAGNOSIS: BursitisLAB ORDERSOrder Description Priority Entered Acknowledged InitialedCBC w Diff STAT 13:35 07/07/2019 13:46 Edna Paris RN PA;CMP STAT 13:35 07/07/2019 13:46 Edna Paris RN PA;Blood Culture STAT 13:35 07/07/2019 13:46 [id number] X2 (Sched Faustino Paris RN13:35 07/07/2019) PA;Blood Culture STAT 13:35 07/07/2019 13:46 [id number] X2 (Sched Faustino sparrow RN13:45 07/07/2019) PA;Lactic Acid STAT 13:35 07/07/2019 13:46 Edna Paris RN PA;PT/PTT STAT 13:35 07/07/2019 13:46 Edna Paris RN PA;Urinalysis (Clean STAT 13:35 07/07/2019 15:25 TimboisCjose carlos Paris RN PA;Sed. Rate STAT 13:35 07/07/2019 13:46 Edna Paris RN PA;CRP STAT 13:35 07/07/2019 13:46 Edna Paris RN PA;Troponin-T STAT 13:35 07/07/2019 13:46 Edna Paris RN PA; 2 OrderSheet [facility] Emergency Department [address] [place] [address] Phone #: ext- [phone] 07/07/2019 13:01 Patient: [...] Acknowledged InitialedpredniSONE PO 60 13:35 07/07/2019 13:51 Bernardag Faustino Paris RN PA;Toradol IM 30 mg 13:35 07/07/2019 13:52 Edna Paris RN PA;GENERAL ORDERSOrder Description Priority Entered Acknowledged Init ialedEKG 13:35 07/07/2019 13:46 Edna Paris RN PA;Taryn Wrap 15:29 07/07/2019 15:30 Edna Paris RN PA; 3 OrderSheet [facility] Emergency Department [address] [place] [address] Phone #: ext- [phone] 07/07/2019 13:01 Patient: TOLU RATLIFF Sex: M : 1955 Age: 63y[Electronically signed by Edna Paris RN (15:38 07/07/2019)][Electronically signed by Faustino Young (17:59 07/07/2019)][Electronically locked by Edna Paris RN (15:38 07/07/2019)] Name Value Range Interpretation Code Description Data Shelly rce(s) Supporting Document(s) ID Date Data Source [id number] 07/07/2019 01:18:00 PM EST [facility] 1 Medication Reconciliation Report [facility] Emergency Department [address] [place] [address] Phone #: ext- [phone] 07/07/2019 13:01 Patient: TOLU RATLIFF Sex: M [...] 1 pack. Refills: 0. Substitution permitted.Pharmacy - [facility] #[id number] - [address] [place], [place] [phone]. .Bactrim DS 800 mg-160 mg tablet Take 1 tablet twice a day for 10 days -- Dispense 20 tablet. Refills: 2 Medication Reconciliation Report [facility] Emergency Department [address] [place] [address] Phone #: ext- [phone] 07/07/2019 13:01 Patient: TOLU RATLIFF Sex: M : 1955 Age: 63y0. [id number] [address] [place], [place] [phone]. . -- FABRICE Pena Name Value Range Interpretation Code Description Data Shelly rce(s) Supporting Document(s) ID Date Data Source [id number] 07/07/2019 01:18:00 PM EST [facility] 1 Medication Administration Record [facility] Emergency Department [address] [place] [address] Phone #: mon- [phone] 07/07/2019 13:01 Patient: TOLU RATLIFF Sex: M : 1955 Age: 63yWeight: 88.4 kgHeight/Length: 71 inBMI: 27.2ALLERGIES: Shellfish-derived Products Date/Time Medication Administered Medication OrderedGiven PREDNISONE [PO] predniSONE PO 60 mg13:50 07/07/2019 Dose: 60 mg Tablets Chet Paris RNGimayda TORADOL [IM] (KETOROLAC Toradol IM 30 mg13:50 07/07/2019 TROMETHAMINE)Edna Paris RN Dose: 30 mg IM Name Value Range Interpretation Code Description Data Shelly rce(s) Supporting Document(s) ID Date Data Source [id number] 07/07/2019 01:18:00 PM EST [facility] 1 General Instructions [facility] Emergency Department [address] [place] [address] Phone #: ext- [phone] 07/07/2019 13:01 Patient: [...] tomorrow AM.Dispense 1 pack. Refills: 0. Substitution permitted.[id number] [phone] FaxNumber: [phone].Bactrim DS 800 mg-160 mg tablet Take 1 tablet twice a day for 10 days -- Dispense 20 tablet. Refills:0. Substitution permitted.[id number] [address] [place], [place] [phone]. .Follow-up:Follow up with your doctor Monday. Call for an appointment. Reason for referral: evaluation, treatment andreferral to Orthopedics for left elbow burisitis if no improvement.. Summary of care provided to patient.Understanding of the discharge instructions verbalized by patient. ADDITIONAL INFORMATIONBursitis 2 General Instructions [facility] Emergency Department [address] [place] [address] Phone #: [phone] htg- [phone] 07/07/2019 13:01 Patient: TOLU RATLIFF Sex: M [...] wrap or splint wet. You may take ordv-yiu-xhimxnm pain medicine to treat pain and inflammation, [...] to flare up again. 3 General Instructions [facility] Emergency Department [address] [place] [address] Phone #: ext- [phone] 07/07/2019 13:01 Patient: TOLU RATLIFF Sex: M : 1955 Age: 63yWhen to seek medical adviceCall your healthcare provider right away if any of these occur: Redness or warmth over the painful area Increasing pain or swelling at the joint Fever of 100.4F (38C) or above lasting for 24 to 48 hours, or as advised Chills [phone] [employer]. [address] [place] [address]. All rights reserved. This information is not [...] apply an elastic bandage: 4 General Instructions [facility] Emergency Department [address] [place], [place] [id number] Phone #: ext- [phone] 07/07/2019 13:01 Patient: [...] doesn't go away after bandage is removed [phone] [employer]. [address] [place] [address]. All rights reserved. This information is not intended as asubstitute for professional medical care. Always follow your healthcare professional's instructions. You have been given the following additional information: Bursitis TARYN Wrap 5 General Instructions [facility] Emergency Department [address] [place] [address] Phone #: ext- [phone] 07/07/2019 13:01 Patient: TOLU RATLIFF Sex: M : 1955 Age: 63y(Electronically signed by FABRICE Pena 07/07/2019 17:59) Name Value Range Interpretation Code Description Data Shelly rce(s) Supporting Document(s) ID Date Data Source [id number] 07/07/2019 01:18:00 PM EST [facility] 1 Clinical Report - Nurses [facility] Emergency Department [address] [place] [address] Phone #: ext- [phone] 07/07/2019 13:01 Patient: TOLU RATLIFF Sex: M [...] RN.ADDITIONAL SURGERIES: 2 Clinical Report - Nurses [facility] Emergency Department [address] [place] [address] Phone #: ext- [phone] 07/07/2019 13:01 [id number] Sex: M : 1955 Age: 63y Back [...] risk identified. --13:12 07/07/19 Edna Paris RN.PHYSICAL TBHPVKEWJR61:12 07/07/19. Ambulatory to room.GENERAL / NEURO / [...] Paris RN 3 Clinical Report - Nurses [facility] Emergency Department [address] [place] [address] Phone #: [phone] ohw- [phone] 07/07/2019 13:01 Patient: TOLU RATLIFF Sex: M [...] to radiology and CT by wheelchair with appliance technician. --14:38 07/07/19 Edna Paris RN 14:38 07/07/19. Patient returned from radiology and CT by wheelchair with appliance technician. --14:38 07/07/19 Edna Paris RN 14:50 [...] F. Pain level now 4/10. --15:35 07/07/19 Chama wine cellar worker, Chema, ER Tech1 15:37 07/07/19. Condition at departure: improved and stable. No learning barriers present. Discharge instructions provided and reviewed with the patient. Reviewed medication(s) side effects, precautions, dosing and course information. Prescription(s) sent electronically to pharmacy (Medrol, Bactrim DS). Patient verbalized understanding. Written instructions provided in [place]. The patient was discharged home. He left ambulatory and via private vehicle. Patient driving. --15:38 07/07/19 Edna Paris RN.Locked/Released at 07/07/2019 15:38 by Edna Paris RN Name Value Range Interpretation Code Description Data Shelly rce(s) Supporting Document(s) ID Date Data Source [id number] 07/07/2019 01:18:00 PM [facility] 1 Clinical Report - Physicians/Mid Levels [facility] Emergency Department [address] [place] [address] Phone #: ext- [phone] 07/07/2019 13:01 Patient: TOLU RATLIFF Sex: M : 1955 Age: 63y Time [...] hives). 2 Clinical Report - Physicians/Mid Levels [facility] Department [address] [place] [address] Phone #: ext- [phone] 07/07/2019 13:01 Patient: TOLU RATLIFF [facility]#: [id number] Sex: M : 1955 Age: 63ySOCIAL HISTORYFormer smoker. Alcohol use; consumes 12-pack of beer a week. No drug use.PHYSICAL EXAMVital Signs: 07/07/2019 13:02 BP: 159/91. MAP: 113. HR: 83. RR: 16. O2 saturation: 95%. Temp: 97.8 F.Pain level now: 10. Have been reviewed as abnormal. Hypertensive. Oxygen [...] radiologist and contemporaneously by me. Interpretation time: 15:07/07/2019.CT C-Spine: No acute findings. Degenerative joint disease. (s/p Fusion o/w nad). The study wasinterpreted by the radiologist and contemporaneously by me. Interpretation time: 15:07/07/2019.Laboratory Tests: Laboratory tests have been ordered, with [...] 2.0) 3 Clinical Report - Physicians/Mid Levels [facility] Department [address] [place] [address] Phone #: ext- [phone] 07/07/2019 13:01 Patient: [...] Male GFR Interprentation 20-49 yrs >60 mL/min Dibqsj89-72 yrs >56 mL/min Normal 60-69 yrs >49 mL/min Normal 70-79yrs>42 mL/min Normal 80 and above >35 mL/min Normal Female GFRInterpretation 20-39 yrs >60 mL/min Normal 40-49 yrs >58 mL/minNormal 50-59 yrs >51 mL/min Normal 60-69 yrs >45 mL/min [place]16-91 yrs >39 mL/min Normal 80 and above >32 mL/min NormalLactic Acid: (RYAN: 07/07/2019 14:01) ( [facility] 07[facility]07[facility] 14:39) Final results Test Result Flag Units (Reference) LACTIC ACID 3.0 H MMOL/L (0.2 - 2.2)PT/PTT: (RYAN: 07/07/2019 14:01) ( [facility] 07/07/2019 14:40) Final results Test Result Flag Units (Reference) PROTIME 12.5 SECONDS (11.0 - 15.5) INR 0.92 L (0.93 - 1.23) PTT 27.1 SECONDS (24.8 - 36.7) \\BLDo\\INR INTERPRETATION\\BLDx\\ Therapeutic range for Coumadin andrelated oral anticoagulants. -International Normalized Ratio (INR): 2.0 - 3.0 for VenousThrombosis, Pulmonary Embolus, Tissue heart valves, Acute RI Atrial Fibrillation, Valvular heart diseaseand recurrent Systemic Embolism. -International Normalized Ratio (INR): 2.5 - 3.5 forMechanical Prosthetic valve. \\BLDo\\PTT INTERPRETATION\\BLDx\\Critical results for patients not on therapy: >50 seconds Critical results for patients on therapy:>119 seconds Therapeutic range for patients on therapy: 58 - 90 seconds Coag studies fromline draws may not be accurate due to Heparin and other interferences.CRP: (RYAN: 07/07/2019 14:01) ( [facility] 07/07/2019 14:40) Final results 4 Clinical Report - Physicians/Mid Levels [facility] Department [address] [place] [address] Phone #: ext- [phone] 07/07/2019 13:01 Patient: [facility]OLU RATLIFF [id number] Sex: M : 1955 Age: 63y Test [...] threshold value Guadalupe Mancini.PROGRESS AND PROCEDURESArthrocentesis: Time: 15:07/07/2019. Left elbow. Discussed the procedure's benefits, risks [...] Discharged home in good and improved condition (:Jul 07 2019).CLINICAL IMPRESSION Traumatic left olecr anon [...] prn. 5 Clinical Report - Physicians/Mid Levels [facility] Emergency Department [address] [place] [address] Phone #: ext- [phone] 07/07/2019 13:01 Patient: TOLU RATLIFF Sex: M : 1955 Age: 63y Serevent Diskus Inhalation : 2 puffs daily. Prescription Medications: Medrol (Chucky) 4 mg tablets in a dose pack Take 1 tablet as directed for 6 days -- start tomorrow AM. Dispense 1 pack. Refills: 0. Substitution permitted. Pharmacy - [facility] #[id number] [phone]. . Bactrim DS 800 mg-160 mg tablet Take 1 tablet twice a day for 10 days -- Dispense 20 tablet. Refills: 0. Substitution permitted. Pharmacy - [facility] #[id number] - [address] [place], [place] [phone]. FaxNumber: . Follow-up: Follow up with your [...] rce(s) Supporting Document(s) ID Date Data Source [id number] 07/07/2019 03:30:00 PM EST [facility] ([facility]) Name Value Range Interpretation Code Description Data Shelly rce(s) Supporting Document(s) Reported Physicians See Note Reported Physici ans [facility] ([facility]) Note: Reported Physicians:Ordering: Sandy UMANAending: SIVA, YUSEFANConsulting: JUSTUS TALAMANTESYNCopy To: Azeb Young To: SIVA BRYANCopy To: Esha Talamantes ID Date Data Source [id number] 07/07/2019 03:30:00 PM EST [facility] ([facility]) Name Value Range Interpretation Code Description Data Shelly rce(s) Supporting Document(s) Bilirubin [Presence] in Peritoneal fluid NEG BILIRUBIN [facility] ([facility]) Note: Responsible Observer: () Blood [Presence] in Urine by Visual NEG BLOOD [facility] ([facility]) Note: Responsible Observer: () Clarity of Pleural fluid from Fetus clear CLARITY [facility] ([facility]) Note: Responsible Observer: () Color of Exudate from wound yellow COLOR [facility] ([facility]) Note: Responsible Observer: () Glucose [Mass/volume] in Urine collected for unspecified duration N ORM GLUCOSE [facility] ([facility]) Note: Responsible Observer: () KETONE NEG KETONE [facility] ([facility]) Note: Responsible Observer: () LEUK EST NEG LEUK EST [facility] ([facility]) Note: Responsible Observer: () MICROSCOPIC Not Indicate MICROSCOPIC [facility] ([facility]) Note: Responsible Observer: () Nitrite [Presence] in Urine by Test strip NEG NITRITE [facility] ([facility]) Note: Responsible Observer: () pH of Vaginal fluid by Test strip 5 pH [facility] ([facility]) Note: Responsible Observer: () Protein [Mass/volume] in Saliva (oral fluid) NEG PROTEIN [facility] ([facility]) Note: Responsible Observer: () SPEC GRAVITY 1.030 SPEC GRAVITY [facility] ([facility]) Note: Responsible Observer: () Urobilinogen [Presence] in Urine by Automated test strip NOR UROBILINOGEN [place] ([facility]) Note: Responsible Observer: () SOURCE R SOURCE [facility] ([facility]) Note: Responsible Observer: () URINALYSIS See Note URINALYSIS [facility] ([facility]) Note: URINALYSISResponsible Observer : () ID Date Data Source [id number] 07/07/2019 03:53:00 PM EST [facility] Name Value Range Interpretation Code Description Data Shelly rce(s) Supporting Document(s) URINALYSIS [facility] URINALYSIS SOURCE R [facility] COLOR yellow NORMAL: Yellow [facility] CLARITY clear NORMAL: Clear [facility] Specific gravity of Urine by Test strip 1.030 1.001 - 1.030 [facility] pH 5 5 - 9 [facility] Glucose [Mass/volume] in Urine by Test strip NORM NORMAL: Negat [facility] Bilirubin.total [Presence] in Urine by Test strip NEG NORMAL: Negative [facility] Ketones [Presence] in Urine by Test strip NEG NORMAL: Negative [facility] Protein [Mass/volume] in Urine by Test strip NEG NORMAL: Negat [facility] Nitrite [Presence] in Urine by Test strip NEG NORMAL: Negative [facility] BLOOD NEG NORMAL: Negative [facility] Leukocyte esterase [Presence] in Urine by Test strip NEG JOSE L: Negative [facility] Urobilinogen [Mass/volume] in Urine by Test strip NOR less madeleine n 1.0 mg/dL [facility] MICROSCOPIC Not Indicate [facility] ID Date Data Source [id number] 07/08/2019 09:43:00 AM [facility] CELIA @ [facility] NOTIFIED 07/08/19 @ 0900 RMMLE FT ELBOW BURSADoes the specimen need to be recollected?: YREASON REJECTED:: WRONG SWAB COLLECTEDTEST(S) ORDERED:: ANAEROBIC CULTURE LEFT ELBOW BURSA LEFT ELBOW BURSA Name Value Range Interpretation Code Description Data Shelly rce(s) Supporting Document(s) Laboratory ANAEROBIC CULTURE [facility] Laboratory studies (set) WRONG SWAB COLLECTED [facility] One or more of the tests that youordered cannot be performed.Please recollect, reorder and resubmit. ID Date Data Source [id number] 07/09/2019 07:21:00 AM [facility] CELIA @ [facility] NOTIFIED 07/08/19 @ 0900 RMMLE FT ELBOW BURSADoes the specimen need to be recollected?: YREASON REJECTED:: WRONG SWAB COLLECTEDTEST(S) ORDERED:: ANAEROBIC CULTURE LEFT ELBOW BURSA LEFT ELBOW BURSA Name Value Range Interpretation Code Description Data Shelly rce(s) Supporting Document(s) Gram stain result No organisms seen [facility] ID Date Data Source [id number] 07/12/2019 10:33:00 AM [facility] CELIA @ [facility] NOTIFIED 07/08/19 @ 0900 RMMLE FT ELBOW BURSADoes the specimen need to be recollected?: YREASON REJECTED:: WRONG SWAB COLLECTEDTEST(S) ORDERED:: ANAEROBIC CULTURE LEFT ELBOW BURSA LEFT ELBOW BURSA Name Value Range Interpretation Code Description Data Shelly rce(s) Supporting Document(s) Bacteria identified in Wound by Aerobe culture LEFT ELBOW [facility] Culture results No growth at 4 days [facility] ID Date Data Source [id number] 07/07/2019 03:17:00 PM EST [facility] ([facility]) Name Value Range Interpretation Code Description Data Shelly rce(s) Supporting Document(s) Reported Physicians See Note Reported Physici ans [facility] ([facility]) Note: Reported Physicians:Ordering: Sandy UMANAending: Liyah PANIAGUAulting: Alex TALAMANTES To: Azeb Young To: RACHEL PANIAGUAopy To: Esha Talamantes ID Date Data Source [id number] 07/07/2019 03:17:00 PM ALENA [facility]OHNS[facility] ([facility]) Name Value Range Interpretation Code Description Data Shelly rce(s) Supporting Document(s) GRAM STAIN See Note GRAM STAIN [facility] ([facility]) Note: GRAM STAIN: [place] [address] CLIA# [id number] SEE SCANNED REPORT COMMENT: Respo nsible Observer: () ID Date Data Source [id number] 07/07/2019 03:17:00 PM [facility] ([facility]) Name Value Range Interpretation Code Description Data Shelly rce(s) Supporting Document(s) Reported Physicians See Note Reported Physici ans [place] ([facility]) Note: Reported Physicians:Ordering: Sandy UMANAending: Liyah PANIAGUAulting: Alex TALAMANTES To: Azeb Young To: Trina PANIAGUA To: Esha Talamnates ID Date Data Source [id number] 07/07/2019 03:17:00 PM [facility] ([facility]) Name Value Range Interpretation Code Description Data Shelly rce(s) Supporting Document(s) CULTURE WOUND See Note CULTURE WOUND [facility] ([facility]) Note: .WOUND CULTURE_{ SPECIM EN SOURCE : Result: TEST PERFORMED AT [address] [place] [address] CLIA# [id number] SEE SCANNED REPORT Responsible Observer: (DW) ID Date Data Source [id number] 07/12/2019 02:08:00 PM [facility] Name Value Range Interpretation Code Description Data Shelly rce(s) Supporting Document(s) CULTURE WOUND [facility] spital .WOUND CULTURE_{ SPECIMEN SHELLY RCE : Result: TEST PERFORMED AT [address], [place] [id number] CLIA# [id number] SEE SCANNED REPORT ID Date Data Source [id number] 07/09/2019 01:14:00 PM EST [facility] Name Value Range Interpretation Code Description Data Shelly rce(s) Supporting Document(s) GRAM STAIN [facility] GRAM STAIN: TEST PERFORMED AT [facility] [address] [place] [address] CLIA# [id number] SEE SCANNED REPORT COMMENT: ID Date Data Source [id number] 07/13/2019 10:38:00 AM EST [facility] [address] Name Value Range Interpretation Code Description Data Shelly rce(s) Supporting Document(s) Bacteria identified in Blood by Culture [facility] NO GROWTH AFTER 5 DAYS ID Date Data Source [id number] 07/07/2019 02:56:00 PM ALENA [facility]OHNS[facility] ([facility]) Name Value Range Interpretation Code Description Data Shelly rce(s) Supporting Document(s) Reported Physicians See Note Reported Physici karoline JOHNSON ([facility]) Note: Reported Physicians:Ordering: Sandy UMANAending: Liyah PANIAGUAulting: Alex TALAMANTES To: Dara Youngy To: SRAVANTHIRUS, BRYANCopy To: Esha Talamantes ID Date Data Source [id number] 07/07/2019 02:56:00 PM EST [facility] ([facility]) Name Value Range Interpretation Code Description Data Shelly rce(s) Supporting Document(s) CULTURE BLOOD See Note CULTURE BLOOD [place] ([facility]) Note: _CULTURE BLOOD_ TEST P ERFORMED AT [address] [address] CLIA# [id number] SEE SCANNED REPORT{ PRELIMResponsible Observer: (GBT) ID Date Data Source [id number] 07/14/2019 03:41:00 AM [facility] Name Value Range Interpretation Code Description Data Shelly rce(s) Supporting Document(s) CULTURE BLOOD [facility] spital _CULTURE BLOOD_ TEST PERFORM ED AT [address] [address] CLIA# [id number] SEE SCANNED REPORT{ PRELIM ID Date Data Source [id number] 07/07/2019 02:01:00 PM EST [place] ([facility]) Name Value Range Interpretation Code Description Data Shelly rce(s) Supporting Document(s) Reported Physicians See Note Reported Physici ans [place] ([facility]) Note: Reported Physicians:Ordering: FAUSTINO UMNAAAttending: VENERUS, BRYANConsulting: ESHA TALAMANTESCopninfa To: Azeb Young To: VENERUS, BRYANCopy To: Esha Talamantes ID Date Data Source [id number] 07/07/2019 02:01:00 PM EST [place] ([facility]) Name Value Range Interpretation Code Description Data Shelly rce(s) Supporting Document(s) SED RATE 1 mm/hr SED RATE [facility] ([facility]) Note: Responsible Observer: () SED RATE REENTER 1 SED RATE [facility] ([facility]) Note: Responsible Observer: () ID Date Data Source [id number] 07/07/2019 02:01:00 PM EST [facility] ([facility]) Name Value Range Interpretation Code Description Data [facility] rce(s) Supporting Document(s) Reported Physicians See Note Reported Physic ans [place] ([facility]) Note: Reported Physicians:Ordering: CHRISTIANE UMANADEAttending: VENERUS, BRYANConsulting: VINITA, JOCELYNCopy To: SwatsworthChristianedeCopy To: VENERUS, BRYANCopy To: Vinita Esha ID Date Data Source [id number] 07/07/2019 02:01:00 PM EST [facility] ([facility]) Name Value Range Interpretation Code Description Data [facility] rce(s) Supporting Document(s) LACTIC ACID 3.0 MMOL/L Above high normal LACTIC ACID [facility] ([facility]) Note: Responsible Observer: SUSAN) ID Date Data Source [id number] 07/07/2019 02:01:00 PM EST [facility] ([facility]) Name Value Range Interpretation Code Description Data [facility] rce(s) Supporting Document(s) Reported Physicians See Note Reported [facility] ans [place] ([facility]) Note: Reported Physicians:Ordering: CHRISTIANE UMANADEAttending: VENERUS, BRYANConsulting: VINITA, JOCELYNCopy To: Christiane YoungdeCopy To: VENERUS, BRYANCopy To: Arminda Talamantescelyn ID Date Data Source [id number] 07/07/2019 02:01:00 PM EST [facility] ([facility]) Name Value Range Interpretation Code Description Data [facility] rce(s) Supporting Document(s) INR in Blood by Coagulation assay 0.92 Below low nor mal INR [place] ([facility]) Note: Responsible Observer: () PROTIME 12.5 SECONDS PROTIME [place] ([facility]) Note: Responsible Observer: () PTT 27.1 SECONDS PTT [place] ([facility]) Note: \\BLD o\\INR INTERPRETATION\\BLDx Therapeutic range for Coumadin and related oral anticoagulants. - International Normalized Ratio (INR): 2.0 - 3.0 for Venous Thrombosis, Pulmonary Embolus, Tissue heart valves, Acute RI Atrial Fibrillation, Valvular heart disease and recurrent [...] interferences.Responsible Observer: () ID Date Data Source [id number] 07/07/2019 02:01:00 PM EST [place] ([facility]) Name Value Range Interpretation Code Description Data Shelly rce(s) Supporting Document(s) Reported Physicians See Note Reported Physici ans [place] ([facility]) Note: Reported Physicians:Ordering: Sandy UMANAending: RACHEL PANIAGUAonsulting: JUSTUS TALAMANTESYNCopninfa To: Azeb Young To: YUSEF PANIAGUAANCopy To: Esha Talamantes ID Date Data Source [id number] 07/07/2019 02:01:00 PM EST [place] ([facility]) Name Value Range Interpretation Code Description Data Shelly rce(s) Supporting Document(s) #BASO 0.04 10\\^3/uL #BASO [place] ([facility]) Note: Responsible Observer: () #EOS 0.18 10\\^3/uL #EOS [place] ([facility]) Note: Responsible Observer: () #IG 0.04 10\\^3/uL #IG [place] ([facility]) Note: Responsible Observer: () #LYMPH 2.04 10\\^3/uL #LYMPH [place] ([facility]) Note: Responsible Observer: () #MONO 0.87 10\\^3/uL #MONO [place] ([facility]) Note: Responsible Observer: () #NEUT 8.34 10\\^3/uL Above high normal #NEUT [place] ([facility]) Note: Responsible Observer: () #NRBC 0.00 10\\^3/uL #NRBC [place] ([facility]) Note: Responsible Observer: () %NRBC 0.0 % %NRBC [place] ([facility]) Note: Responsible Observer: () %IG 0.3 % Above high normal %IG [place] ([facility]) Note: Responsible Observer: () CBC W/AUTOMATED DIFF See Note CBC W/AUTOMATED DIFF [place] ([facility]) Note: COMPLETE BLOOD COUNTResponsibl e Observer: () BASO 0.3 % BASO [place] ([facility]) Note: Responsible Observer: () EOS 1.6 % EOS [place] ([facility]) Note: Responsible Observer: () Hematocrit [Pure volume fraction] of Blood by Automated count 47.4 % HEMATOCRIT [place] ([facility]) Note: Responsible Observer: () LYMPH 17.7 % Below low normal LYMPH [place] ([facility]) Note: Responsible Observer: () Hemoglobin [Mass/volume] in Mixed venous blood by Oximetry 15.9 g/d L HEMOGLOBIN [place] ([facility]) Note: Responsible Observer: () MANUAL DIFF NOT INDICATED MANUAL DIFF [place] ([facility]) Note: Responsible Observer: () MCH 30.4 pg MCH [place] ([facility]) Note: Responsible Observer: () MCHC 33.5 g/dL MCHC [place] ([facility]) Note: Responsible Observer: () MCV 90.6 fL MCV [place] ([facility]) Note: Responsible Observer: SUSAN) MONO 7.6 % MONO [place] ([facility]) Note: Responsible Observer: () NEUT 72.5 % NEUT [place] ([facility]) Note: Responsible Observer: () MPV 9.2 fL MPV [place] ([facility]) Note: Responsible Observer: () Platelets [#/area] in Blood by Microscopy high power field 217 10\\^ 3/uL PLATELETS [place] ([facility]) Note: Responsible Observer: SUSAN) RBC 5.23 10\\^6/uL RBC [place] ([facility]) Note: Responsible Observer: () RBC MORPH NOT INDICATED RBC MORPH [place] ([facility]) Note: Responsible Observer: () RDW 12.8 % RDW [place] ([facility]) Note: Responsible Observer: () WBC 11.5 10\\^3/uL Above high normal WBC [place] ([facility]) Note: Responsible Observer: () ID Date Data Source [id number] 07/07/2019 02:01:00 PM EST [place] ([facility]) Name Value Range Interpretation Code Description Data Shelly rce(s) Supporting Document(s) Reported Physicians See Note Reported Physic ans [place] ([facility]) Note: Reported Physicians:Ordering: CHRISTIANE UMANADEAttending: VENERUS, BRYANConsulting: VINITA, JOCELYNCopy To: Christiane YoungdeCopy To: VENERUS, BRYANCopy To: VinitaArmindaEsha ID Date Data Source [id number] 07/07/2019 02:01:00 PM EST [place] ([facility]) Name Value Range Interpretation Code Description Data Shelly rce(s) Supporting Document(s) TROPONIN T 0.01 NG/ML TROPONIN T [place] ([facility]) Note: TROPONIN T0.1 ng/ml Recommended as the clinical threshold value forTroponin T.Responsible Observer: SUSAN) ID Date Data Source [id number] 07/07/2019 02:01:00 PM EST [place] ([facility]) Name Value Range Interpretation Code Description Data Shelly rce(s) Supporting Document(s) Reported Physicians See Note Reported Physic ans [place] ([facility]) Note: Reported Physicians:Ordering: FAUSTINO UMANAAttending: VENERUS, BRYANConsulting: VINITA, JOCELYNCopy To: Hannah WadeCopy To: VENERUS, BRYANCopy To: Vinita, Esha ID Date Data Source [id number] 07/07/2019 02:01:00 PM EST [place] ([facility]) Name Value Range Interpretation Code Description Data Shelly rce(s) Supporting Document(s) A/G RATIO 1.8 A/G RATIO [place] ([facility]) Note: Responsible Observer: () AFR AMER GFR >60 mL/min AFR AMER GFR [place] ([facility]) Note: Male GFR Interprentation 20- 49 [...] 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 63 yrs AGE [place] ([facility]) Note: Responsible Observer: () Albumin [Mass/volume] in Blood by Bromocresol purple ( BCP) dye binding method 4.8 G/DL ALBUMIN [place] ([facility]) Note: Responsible Observer: () ALKALINE PHOS 55 U/L ALKALINE PHOS [place] ([facility]) Note: Responsible Observer: () BUN 15 MG/DL BUN [place] ([facility]) Note: Responsible Observer: () Anion gap in Body fluid 15.0 mmol/L ANION GAP [place] ([facility]) Note: Responsible Observer: () BUN/CREAT 19 BUN/CREAT [place] ([facility]) Note: Responsible Observer: () Calcium [Moles/volume] in Urine collected for unspecified durati on 10.6 MG/DL Above high normal CALCIUM [place] ([facility]) Note: Responsible Observer: () Chloride [Moles/volume] in Serum, Plasma or Blood 102 mEq/L CHLORIDE [place] ([facility]) Note: Responsible Observer: () CO2 24 MEQ/L CO2 [place] ([facility]) Note: Responsible Observer: () COMPREHENSIVE METABOLIC PANEL See Note COMPRE HENSIVE METABOLIC PANEL [place] ([facility]) Note: COMPREHENSIVE METABOLIC PANELR esponsible Observer: () Creatinine [Moles/volume] in Vitreous fluid 0.8 MG/DL CREATININE [place] ([facility]) Note: Responsible Observer: () Globulin [Mass/time] in 24 hour Urine 2.7 GM/DL GLOBULIN [place] ([facility]) Note: Responsible Observer: () Glucose [Mass/volume] in Urine collected for unspecified duratio n 120 MG/DL Above high normal GLUCOSE [place] ([facility]) Note: Responsible Observer: () NON-AA GFR >60 mL/min NON-AA GFR [place] ([facility]) Note: Responsible Observer: () Potassium [Mass/volume] in Blood 4.3 mEq/L POT ASSIUM [place] ([facility]) Note: Responsible Observer: () SGOT/AST 26 U/L SGOT/AST [place] ([facility]) Note: Responsible Observer: () Sodium [Moles/volume] in Serum, Plasma or Blood 141 mEq/L SODIUM [place] ([facility]) Note: Responsible Observer: () SGPT/ALT 45 U/L SGPT/ALT [place] ([facility]) Note: Responsible Observer: () TOTAL BILI 0.7 MG/DL TOTAL BILI [place] ([facility]) Note: Responsible Observer: () TOTAL PROTEIN 7.5 G/DL TOTAL PROTEIN [place] ([facility]) Note: Responsible Observer: () ID Date Data Source [id number] 07/07/2019 02:01:00 PM EST [place] ([facility]) Name Value Range Interpretation Code Description Data Shelly rce(s) Supporting Document(s) Reported Physicians See Note Reported Physici ans [place] ([facility]) Note: Reported Physicians:Ordering: Sandy UMANAending: Liyah PANIAGUAulting: Alex TALAMANTES To: Azeb Young To: RACHEL PANIAGUAopy To: Esha Talamantes ID Date Data Source [id number] 07/07/2019 02:01:00 PM EST [place] ([facility]) Name Value Range Interpretation Code Description Data Shelly rce(s) Supporting Document(s) CRP-HS 1.00 MG/L CRP-HS [place] ([facility]) Note: [facility]/S HS-CRP CUT-OFF : RELATIVE RISK: <1.0 mg/L Low 1.0 - 3.0 mg/L Average >3.0 mg/L High Optimally, the average of HS-CRP results repeated two weeks apart should be used for risk assessment.Responsible Observer: () ID Date Data Source [id number] 07/07/2019 02:01:00 PM [facility] ([facility]) Name Value Range Interpretation Code Description Data Shelly rce(s) Supporting Document(s) Reported Physicians See Note Reported Physici ans [place] ([facility]) Note: Reported Physicians:Ordering: Sandy UMANAending: RACHEL PANIAGUAonsulting: JUSTUS TALAMANTESYNCopninfa To: Azeb Young To: YUSEF PANIAGUAANCopy To: Esha Talamantes ID Date Data Source [id number] 07/07/2019 02:01:00 PM [facility] ([facility]) Name Value Range Interpretation Code Description Data Shelly rce(s) Supporting Document(s) CULTURE BLOOD See Note CULTURE BLOOD [place] ([facility]) Note: _CULTURE BLOOD_ TEST P ERFORMED AT [address] [address] CLIA# [id number] SEE SCANNED REPORT{ PRELIMResponsible Observer: (GBT) ID Date Data Source [id number] 07/14/2019 03:40:00 AM [facility] Name Value Range Interpretation Code Description Data Shelly rce(s) Supporting Document(s) CULTURE BLOOD [facility] spital _CULTURE BLOOD_ TEST PERFORM ED AT [address] [address] CLIA# [id number] SEE SCANNED REPORT{ PRELIM ID Date Data Source [id number] 07/07/2019 04:00:00 PM [facility] Name Value Range Interpretation Code Description Data Shelly rce(s) Supporting Document(s) Erythrocyte sedimentation rate by Westergren method 1 mm/hr 0 - 20 [facility] SED RATE REENTER 1 [facility] ID Date Data Source [id number] 07/07/2019 02:42:00 PM EST [facility] Name Value Range Interpretation Code Description Data Shelly rce(s) Supporting Document(s) COMPREHENSIVE METABOLIC PANEL [facility] COMPREHENSIVE METABOLIC PANEL Sodium [Moles/volume] in Serum or Plasma 141 mEq/L 134 - 153 [facility] Potassium [Moles/volume] in Serum or Plasma 4.3 mEq/L 3.6 - 5.0 [facility] Chloride [Moles/volume] in Serum or Plasma 102 mEq/L 98 - 107 [facility] Carbon dioxide, total [Moles/volume] in Serum or Plasma 24 MEQ/L 22 - 30 [facility] Glucose [Mass/volume] in Serum or Plasma 120 MG/DL 65 - 110 H [facility] BUN 15 MG/DL 7 - [facility] Creat[facility] [Mass/volume] in Serum or Plasma 0.8 MG/DL 0.7 - 1.5 [facility] BUN/CREAT 19 8 - 27 [facility] al Protein [Mass/volume] in Serum or Plasma 7.5 G/DL 6.3 - 8.2 [facility] Albumin [Mass/volume] in Serum or Plasma 4.8 G/DL 3.9 - 5.0 [facility] Globulin [Mass/volume] in Serum by calculation 2.7 GM/DL 2.4 - 3.2 [facility] A/G RATIO 1.8 0.8 - 2.0 [facility] Calcium [Mass/volume] in Serum or Plasma 10.6 MG/DL 8.4 - 10.2 H [facility] Bilirubin.total [Mass/volume] in Serum or Plasma 0.7 MG/DL 0.2 - 1.3 [facility] Alkaline phosphatase [Enzymatic activity/volume] in Serum or Plasma 55 U/L 38 - 126 [facility] Aspartate aminotransferase [Enzymatic activity/volume] in Serum or Plasma 26 U/L 5 - 40 [facility] Alanine aminotransferase [Enzymatic activity/volume] in Seru m or Plasma 45 U/L 7 - 56 [facility] Anion gap 3 in Serum or Plasma 15.0 mmol/L 8.0 - 16.0 [facility] AGE 63 yrs [facility] NON-AA GFR >60 mL/min [facility] AFR AMER GFR >60 mL/min [facility] Male GFR In terprentation [...] >32 mL/min Normal ID Date Data Source [id number] 07/07/2019 02:41:00 PM EST [facility] Name Value Range Interpretation Code Description Data Shelly rce(s) Supporting Document(s) CBC W/AUTOMATED DIFF [facility] COMPLETE BLOOD COUNT Leukocytes [#/volume] in Blood by Automated count 11.5 10^3/uL 4.2 - 11.0 H [facility] Erythrocytes [#/volume] in Blood by Automated count 5.23 10^6/uL 4. 50 - 6.30 [facility] Hemoglobin [Mass/volume] in Blood 15.9 g/dL 14.0 - 16.0 [facility] Hematocrit [Volume Fraction] of Blood by Automated count 47.4 % 4 1.0 - 51.0 [facility] Erythrocyte mean corpuscular volume [Entitic volume] by Auto mated count 90.6 fL 80.0 - 94.0 [facility] Erythrocyte mean corpuscular hemoglobin [Entitic mass] by Automated count 30.4 pg 27.0 - 34.0 [facility] Erythrocyte mean corpuscular hemoglobin concentration [Mass/volume] by Automated count 33.5 g/dL 31.0 - 36.0 [facility] Erythrocyte distribution width [Ratio] by Automated count 12.8 % 11.5 - 14.8 [facility] Platelets [#/volume] in Blood by Automated count 217 10^3/uL 150 - 45 0 [facility] Platelet mean volume [Entitic volume] in Blood by Automated count 9.2 fL 7.4 - 10.4 [facility] Neutrophils/100 leukocytes in Blood by Automated count 72.5 % 37. 0 - 80.0 [facility] Lymphocytes/100 leukocytes in Blood by Manual count 17.7 % 25.0 - 40.0 L [facility] Monocytes/100 leukocytes in Blood by Automated count 7.6 % 3.0 - 8.0 [facility] Eosinophils/100 leukocytes in Blood by Automated count 1.6 % 0.0 - 7.0 [facility] Basophils/100 leukocytes in Blood by Automated count 0.3 % 0.0 - 2.0 [facility] %IG 0.3 % 0.0 - 0.0 H [facility] %NRBC 0.0 % 0.0 - 0.0 [facility] al Neutrophils [#/volume] in Blood by Automated count 8.34 10^3/uL 2.00 - 6.90 H [facility] Lymphocytes [#/volume] in Blood by Automated count 2.04 10^3/uL 0.60 - 3.40 [facility] Monocytes [#/volume] in Blood by Automated count 0.87 10^3/uL 0.00 - 0.90 [facility] Eosinophils [#/volume] in Blood by Automated count 0.18 10^3/uL 0.00 - 0.70 [facility] Basophils [#/volume] in Blood by Automated count 0.04 10^3/uL 0.00 - 0.20 [facility] #IG 0.04 10^3/uL 0.00 - 0.10 [facility] ospital #NRBC 0.00 10^3/uL 0.00 - 0.00 [facility]sp[facility] MANUAL DIFF NOT INDICATED [facility] RBC MORPH NOT INDICATED [facility] spital ID Date Data Source [id number] 07/07/2019 02:40:00 PM EST [facility] Name Value Range Interpretation Code Description Data Shelly rce(s) Supporting Document(s) TROPONIN T 0.01 NG/ML 0.00 - 0.10 [facility] spital TROPONIN T0.1 ng/ml Recommended as the c linical threshold value forTroponin T. ID Date Data Source [id number] 07/07/2019 02:40:00 PM [facility] Name Value Range Interpretation Code Description Data [facility] rce(s) Supporting Document(s) C reactive protein [Mass/volume] in Serum or Plasma by High sensitivity method 1.00 MG/L 1.00 - 3.00 [facility] HS-CRP CUT-OFF: RELATIVE RISK: <1.0 mg/L Low 1.0 - 3.0 mg/L Average >3.0 mg/L High Optimally, the average of HS-CRP results repeated two weeks apart should be used for risk assessment. ID Date Data Source [id number] 07/07/2019 02:40:00 PM [facility] Name Value Range Interpretation Code Description Data Shelly rce(s) Supporting Document(s) Prothrombin time (PT) 12.5 SECONDS 11.0 - 15.5 [facility] INR in Platelet poor plasma by Coagulation assay 0.92 0.93 - 1. 23 L [facility] aPTT in Blood by Coagulation assay 27.1 SECONDS 24.8 - 36.7 [facility] \\BLDo\\INR INTERPRETATION\\BLDx\\ Therapeutic range for Coumadin and related oral anticoagulants. - International Normalized Ratio (INR): 2.0 - 3.0 for Venous Thrombosis, Pulmonary Embolus, Tissue heart valves, Acute RI Atrial Fibrillation, Valvular heart disease and recurrent [...] and other interferences. ID Date Data Source [id number] 07/07/2019 02:39:00 PM [facility] Name Value Range Interpretation Code Description Data Shelly rce(s) Supporting Document(s) Lactate [Moles/volume] in Serum or Plasma 3.0 MMOL/L 0.2 - 2.2 H [facility] ID Date Data Source [id number] 06/25/2019 12:00:00 AM EST [place] ([facility]) Name Value Range Interpretation Code Description Data Shelly rce(s) Supporting Document(s) Hemoglobin A1c/Hemoglobin.total in Blood 6.5 Abnormal (applies to non-numeric results) HbA1C [place] ([facility]) ID Date Data Source [id number] 06/25/2019 12:00:00 AM EST [place] ([facility]) Name Value Range Interpretation Code Description Data Shelly rce(s) Supporting Document(s) Glucose [Mass/volume] in Urine collected for unspecified duration 1 16 Normal Glucose [place] ([facility]) Procedure Social History Code Duration Value Status Description Data Source(s ) Smoking 07/02/2020 12:00:00 AM EST Patient is a former smoker completed Patient is a former smoker [place] ([facility], ) Alcohol intake 05/28/2020 12:00:00 AM EST Yes completed [facility] Cigarette pack-years 05/28/2020 12:00:00 AM EST UNK completed [facility] Cigarettes smoked current (pack per day) - Reported 05/28/20 12:00:00 AM EST UNK completed [facility] Smoking 05/28/2020 12:00:00 AM EST Former smoker completed Former smoker [facility] 04/12/2020 09:42:24 AM EDT Current some day smoker com pleted Current some day smoker [facility] Smoking 04/12/2020 09:42:00 AM EDT Current some day smoker com pleted Current some day smoker [facility] 04/11/2020 05:52:00 PM EDT Current every day smoker co mpleted Current every day smoker [facility] Smoking 04/11/2020 05:52:00 PM EDT Current every day smoker co mpleted Current every day smoker [facility] 05/19/2019 12:00:00 AM EST Cigarette Smoker completed Cig arette Smoker [facility] 05/19/2019 12:00:00 AM EST Current smoker completed Curre nt smoker [facility] Vital Signs ID Date Data Source UNK Name Value Range Interpretation Code Description Data Source(s) Body surface area Derived from formula 2.06 m2 2.06 m2 [facility] ([facility]) Body weight 86.184 kg 86.184 kg [facility] [place] body weight 172 [lb_av] 172 [lb_av] [place] ([facility]) Body mass index (BMI) [Ratio] 26.5 kg/m2 26.5 k g/m2 [facility] ([facility]) Body weight 190.00 [lb_av] 190.00 [lb_av] [place] ([facility]) Body height 71 [in_i] 71 [in_i] [facility] ([facility] 5'11" Oxygen saturation in Arterial blood by Pulse oximetry 94 % 94 % [facility] ([facility]) Room Air Heart rate 90 /min 90 /min [facility] ([facility]) Diastolic blood pressure 72 mm[Hg] 72 mm[Hg] [facility] ([facility]) Systolic blood pressure 140 mm[Hg] 140 mm[Hg] [facility] Body surface area Derived from formula 2.03 m2 2.03 m2 [facility] ([facility]) Body weight 82.555 kg 82.555 kg [facility] [place] body weight 172 [lb_av] 172 [lb_av] [place] ([facility]) Body mass index (BMI) [Ratio] 25.4 kg/m2 25.4 k g/m2 [facility] ([facility]) Body weight 182.00 [lb_av] 182.00 [lb_av] [place] ([facility]) Body height 71 [in_i] 71 [in_i] [facility] ([facility] 5'11" Oxygen saturation in Arterial blood by Pulse oximetry 93 % 93 % [facility] ([facility]) Room Air Heart rate 86 /min 86 /min [facility] ([facility]) Diastolic blood pressure 70 mm[Hg] 70 mm[Hg] [facility] ([facility] ) Systolic blood pressure 130 mm[Hg] 130 mm[Hg] M [facility] ([facility]) Body weight 88.452 kg 88.452 kg [facility] Body weight 195.00 [lb_av] 195.00 [lb_av] [place] ([facility]) Oxygen saturation in Arterial blood by Pulse oximetry 85 % 85 % [facility] ([facility]) 88 ra Heart rate 71 /min 71 /min [facility] ([facility]) Diastolic blood pressure 78 mm[Hg] 78 mm[Hg] [facility] ([facility]) Systolic blood pressure 130 mm[Hg] 130 mm[Hg] [facility] ([facility]) Oxygen saturation in Arterial blood by Pulse oximetry 92 % 92 % [facility] Body mass index (BMI) [Ratio] 26.36 kg/m2 26.36 kg/m2 [facility] Body weight 85.73 kg 85.73 kg [facility] Body height 180.3 cm 180.3 cm [facility] Heart rate 96 /min 96 /min [facility] Diastolic blood pressure 94 mm[Hg] 94 mm[Hg] [facility] Systolic blood pressure 162 mm[Hg] 162 mm[Hg] [facility] Inhaled oxygen concentration 21 % 21 % [place] ([facility]) Inhaled oxygen flow rate 0 L/min 0 L/min [place] ([facility]) Oxygen saturation in Arterial blood by Pulse oximetry 92 % 92 % [place] ([facility]) Body surface area Derived from formula 2.06 m2 2.06 m2 [place] ([facility]) Body mass index (BMI) [Ratio] 26.5 kg/m2 26.5 k g/m2 [place] ([facility]) Body weight 190 [lb_av] 190 [lb_av] [place] ([facility]) Body height 71 [in_i] 71 [in_i] [place] ([facility]) Body temperature 97.9 [degF] 97.9 [degF] [facility] ([facility]) Respiratory rate 24 /min 24 /min [place] ([facility]) Heart rate 68 /min 68 /min [place] ([facility]) Diastolic blood pressure 68 mm[Hg] 68 mm[Hg] [place] ([facility]) Systolic blood pressure 128 mm[Hg] 128 mm[Hg] [facility] ([facility]) Inhaled oxygen concentration 21 % 21 % [place] ([facility]) O2 with mask 84% without mask went to 95% Inhaled oxygen flow rate 0 L/min 0 L/min [place] ([facility]) O2 with mask 84% without mask went to 95% Oxygen saturation in Arterial blood by Pulse oximetry 84 % 84 % [place] ([facility]) O2 with mask 84% without mask went to 95% Body surface area Derived from formula 2.07 m2 2.07 m2 [place] ([facility]) O2 with mask 84% without mask went to 95% Body mass index (BMI) [Ratio] 26.6 kg/m2 26.6 k g/m2 [place] ([facility]) O2 with mask 84% without mask went to 95% Body weight 191 [lb_av] 191 [lb_av] [place] ([facility]) O2 with mask 84% without mask went to 95% Body height 71 [in_i] 71 [in_i] [place] ([facility]) O2 with mask 84% without mask went to 95% Body temperature 97.6 [degF] 97.6 [degF] [facility] ([facility]) O2 with mask 84% without mask went to 95% Respiratory rate 24 /min 24 /min [place] ([facility]) O2 with mask 84% without mask went to 95% Heart rate 91 /min 91 /min [place] ([facility]) O2 with mask 84% without mask went to 95% Diastolic blood pressure 82 mm[Hg] 82 mm[Hg] [place] ([facility]) O2 with mask 84% without mask went to 95% Systolic blood pressure 132 mm[Hg] 132 mm[Hg] G [facility] ([facility]) O2 with mask 84% without mask went to 95% Inhaled oxygen concentration 21 % 21 % [place] ([facility]) Inhaled oxygen flow rate 0 L/min 0 L/min [place] ([facility]) Oxygen saturation in Arterial blood by Pulse oximetry 94 % 94 % [place] ([facility]) Body surface area Derived from formula 2.07 m2 2.07 m2 [place] ([facility]) Body mass index (BMI) [Ratio] 26.6 kg/m2 26.6 k g/m2 [place] ([facility]) Body weight 191 [lb_av] 191 [lb_av] [place] ([facility]) Body height 71 [in_i] 71 [in_i] [place] ([facility]) Body temperature 97.1 [degF] 97.1 [degF] [place] ([facility]) Respiratory rate 24 /min 24 /min [place] ([facility]) Heart rate 84 /min 84 /min [place] ([facility]) Diastolic blood pressure 86 mm[Hg] 86 mm[Hg] [place] ([facility]) Systolic blood pressure 134 mm[Hg] 134 mm[Hg] G [facility] ([facility]) Inhaled oxygen concentration 21 % 21 % [place] ([facility]) Inhaled oxygen flow rate 0 L/min 0 L/min [place] ([facility]) Oxygen saturation in Arterial blood by Pulse oximetry 97 % 97 % [place] ([facility]) Body surface area Derived from formula 2.10 m2 2.10 m2 [place] ([facility]) Body mass index (BMI) [Ratio] 27.8 kg/m2 27.8 k g/m2 [place] ([facility]) Body weight 199 [lb_av] 199 [lb_av] [place] ([facility]) Body height 71 [in_i] 71 [in_i] [place] ([facility]) Body temperature 97.8 [degF] 97.8 [degF] [place] ([facility]) Respiratory rate 24 /min 24 /min [place] ([facility]) Heart rate 90 /min 90 /min [place] ([facility]) Diastolic blood pressure 78 mm[Hg] 78 mm[Hg] [place] ([facility]) Systolic blood pressure 134 mm[Hg] 134 mm[Hg] G [facility] ([facility]) Inhaled oxygen concentration 21 % 21 % [place] ([facility]) Inhaled oxygen flow rate 0 L/min 0 L/min [place] ([facility]) Oxygen saturation in Arterial blood by Pulse oximetry 97 % 97 % [place] ([facility]) Body surface area Derived from formula 2.12 m2 2.12 m2 [place] ([facility]) Body mass index (BMI) [Ratio] 28.3 kg/m2 28.3 k g/m2 [place] ([facility]) Body weight 203 [lb_av] 203 [lb_av] [place] ([facility]) Body height 71 [in_i] 71 [in_i] [place] ([facility]) Body temperature 97.8 [degF] 97.8 [degF] [place] ([facility]) Respiratory rate 24 /min 24 /min [place] ([facility]) Heart rate 97 /min 97 /min [place] ([facility]) Diastolic blood pressure 76 mm[Hg] 76 mm[Hg] [place] ([facility]) Systolic blood pressure 132 mm[Hg] 132 mm[Hg] G [facility] ([facility]) Inhaled oxygen concentration 21 % 21 % [place] ([facility]) Inhaled oxygen flow rate 0 L/min 0 L/min [place] ([facility]) Oxygen saturation in Arterial blood by Pulse oximetry 98 % 98 % [place] ([facility]) Body surface area Derived from formula 2.07 m2 2.07 m2 [place] ([facility]) Body mass index (BMI) [Ratio] 26.6 kg/m2 26.6 k g/m2 [place] ([facility]) Body weight 191 [lb_av] 191 [lb_av] [place] ([facility]) Body height 71 [in_i] 71 [in_i] [place] ([facility]) Body temperature 97.8 [degF] 97.8 [degF] [facility] ([facility]) Respiratory rate 24 /min 24 /min [place] ([facility]) Heart rate 86 /min 86 /min [place] ([facility]) Diastolic blood pressure 72 mm[Hg] 72 mm[Hg] [place] ([facility]) Systolic blood pressure 124 mm[Hg] 124 mm[Hg] [facility] Patient Treatment Plan of Care Planned Activity Planned Date Details Description Data Source (s) Albuterol 0.833 MG/ML / Ipratropium [place] 0.167 MG/M L Inhalant Solution 05/20/2020 12:00:00 AM [facility] Metformin hydrochloride 500 MG Oral Tablet 05/20/2020 12:00:00 AM E [facility] Metformin hydrochloride 500 MG Oral Tablet 05/20/2020 12:00:00 AM E [facility]) atorvastatin 20 MG Oral Tablet 05/20/2020 12:00:00 AM [facility]) 60 ACTUAT Budesonide 0.16 MG/ACTUAT / fo rmoterol fumarate 0.0045 MG/ACTUAT Metered Dose Inhaler [Symbicort] 05/20/2020 12:00:00 AM [facility] ([facility]) 200 ACTUAT Albuterol 0.09 MG/ACTUAT Metered Dose Inhal er [ProAir] 05/20/2020 12:00:00 AM [facility] ([facility]) Lisinopril 5 MG Oral Tablet 05/20/2020 12:00:00 AM [facility]) Triamcinolone Acetonide 1 MG/ML Topical Lotion 05/20/2020 12:00:00 AM [facility]) Lancets Ultra Fine Miscellaneous 05/20/2020 12:00:00 AM [facility]) IGlucose Test Strips In Vitro 05/20/2020 12:00:00 AM EST [place] ([facility]) Lisinopril 5 MG Oral Tablet 05/19/2020 12:00:00 AM EST [facility] Lisinopril 5 MG Oral Tablet 05/17/2020 12:00:00 AM EST [place] ([facility]) Prednisone 10 MG Oral Tablet 05/07/2020 12:00:00 AM EST [place] ([facility]) doxycycline hyclate 100 MG Oral Capsule 05/06/2020 12:00:00 AM EST [place] ([facility]) 60 ACTUAT Budesonide 0.16 MG/ACTUAT / fo rmoterol fumarate 0.0045 MG/ACTUAT Metered Dose Inhaler [Symbicort] 04/22/2020 12:00:00 AM EST [facility]) atorvastatin 20 MG Oral Tablet 04/22/2020 12:00:00 AM EST [facility]) Metformin hydrochloride 500 MG Oral Tablet 04/22/2020 12:00:[address] [place] ([facility]) Lisinopril 5 MG Oral Tablet 04/22/2020 12:00:00 AM EST [facility]) 200 ACTUAT Albuterol 0.09 MG/ACTUAT Metered Dose Inhal er [ProAir] 04/22/2020 12:00:00 AM EST [place] ([facility]) 60 ACTUAT Budesonide 0.16 MG/ACTUAT / fo rmoterol fumarate 0.0045 MG/ACTUAT Metered Dose Inhaler [Symbicort] 11/20/2019 12:00:00 AM EDT [place] ([facility]) Lisinopril 5 MG Oral Tablet [facility] Al[facility]erol 0.09 MG/ACTUAT Metered Dose Inhal er [ProAir] 10/24[facility]2019 [facility] atorvastatin 20 MG Oral Tablet 08/20/2019 12:00:00 AM EST [facility]) IGlucose Test Strips In Vitro 08/20/2019 12:00:00 AM [facility] ([facility]) Lancets Ultra Fine Miscellaneous 08/20/2019 12:00:00 AM [facility] ([facility]) Metformin hydrochloride 500 MG Oral Tablet 08/20/2019 12:00:[address] [place] ([facility]) 60 ACTUAT Budesonide 0.16 MG/ACTUAT / fo rmoterol fumarate 0.0045 MG/ACTUAT Metered Dose Inhaler [Symbicort] 08/20/2019 12:00:00 AM [facility]) 200 ACTUAT Albuterol 0.09 MG/ACTUAT Metered Dose Inhal er [ProAir] 08/20/2019 12:00:00 AM [facility]) Triamcinolone Acetonide 1 MG/ML Topical Lotion 08/20/2019 12:00:00 AM [facility]) Lisinopril 5 MG Oral Tablet 08/20/2019 12:00:00 AM [facility]) 5000 MG Testosterone 0.01 MG/MG Topical Gel [Androgel] 08/20/2019 12:00:00 AM [facility]) atorvastatin 20 MG Oral Tablet 06/25/2019 12:00:00 AM [facility]) Metformin hydrochloride 500 MG Oral Tablet 06/25/2019 12:00:00 AM E [facility] ([facility]) IGlucose Test Strips In Vitro 06/25/2019 12:00:00 AM [facility]) Lancets Ultra Fine Miscellaneous 06/25/2019 12:00:00 AM [facility] ([facility]) 60 ACTUAT Budesonide 0.16 MG/ACTUAT / fo rmoterol fumarate 0.0045 MG/ACTUAT Metered Dose Inhaler [Symbicort] 06/25/2019 12:00:00 AM [facility]) Metformin hydrochloride 500 MG Oral Tablet 05/30/2019 12:00:[address] [place] ([facility]) IGlucose Test Strips In Vitro 01/24/2019 12:00:00 AM EDT [place] ([facility]) Lancets Ultra Fine Miscellaneous 01/24/2019 12:00:00 AM EDT [place] ([facility]) Triamcinolone Acetonide 1 MG/ML Topical Lotion 01/24/2019 12:00:00 AM EDT [place] ([facility]) Metformin hydrochloride 500 MG Oral Tablet 01/24/2019 12:00:00 AM E DT [place] ([facility]) atorvastatin 20 MG Oral Tablet 01/24/2019 12:00:00 AM EDT [place] ([facility]) 30 ACTUAT fluticasone furoate 0.1 MG/ACT UAT / vilanterol 0.025 MG/ACTUAT Dry Powder Inhaler [Breo] 01/24/2019 12:00:00 AM EDT [place] ([facility]) 200 ACTUAT Albuterol 0.09 MG/ACTUAT Metered Dose Inhal er [ProAir] 01/24/2019 12:00:00 AM EDT [place] ([facility]) pantoprazole 40 MG Delayed Release Oral Tablet 04/16/2016 12:00:00 AM EDT [facility] atorvastatin 40 MG Oral Tablet 10/10/2014 12:00:00 AM EDT [facility] 200 ACTUAT Levalbuterol 0.045 MG/ACTUAT Metered Dose I nhaler [Xopenex] 04/23/2014 12:00:00 AM EST [facility] Cholecalciferol 2000 UNT Oral Capsule [facility] Nitroglycerin 0.4 MG Sublingual Tablet [facility] DAILY DIONNE (THERAGRAN) per tablet [facility] ALBUTEROL IN [facility] 24 HR metoprolol succinate 25 MG Extended Release Oral Tablet [facility] Aspirin 325 MG Oral Tablet [facility]
[2020-07-15] MEDS ORDERED: LIDOCAINE VISCOUS 2% SOLN 15ML UDC PO ONE (10:00)
[2020-07-15] MEDS ORDERED: NYSTATIN 500,000 U/5 ML SUSP UDC PO ONE (10:00)
--- OUTSIDE RECORDS SUMMARY | 2020-07-15 10:14 | CCD ---
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 Care Warehouse Director Name Role Phone Susan Talamantes MD Unavailable [...] John Lizett GONCALVES Unavailable Unavailable Lake, John iLzett GONCALVES Unavailable Unavailable Lake, John Lizett GONCALVES [...] Unavailable Vinita, Susan Balbuena MD Unavailable Unavailable Ivnita, Susan Balbuena MD Unavailable Unavailable [place], Susan [...] Unavailable Unavailable Isaias Amaro MD Unavailable Unavailable AmaroIsaias MD Unavailable Unavailable [...] MD Unavailable Unavailable AmaroIsaias MD Unavailable Unavailable VENERUS, Toi MEDEIROS MD [...] is protected by Article 27-F of the [facility] Public Health law. If you continue you may have access to information: Regarding HIV / AIDS; Provided by facilities licensed or operated by the [facility] Office of Mental Health; or Provided by the [facility] Office for People With Developmental Disabilities. If such information is present, then the following [facility] mandated warning applies: This information has [...] law may result in a fine or shelter sentence or both. A general authorization for the release of medical or other information is NOT sufficient authorization for further disc losure. Allergies and Adverse Reactions Type Description Substance Reaction Status Data Source(s ) Food allergy shellfish derived shellfish derived [facility] Family History Family Member Name Family Member Gender Family Member Status Date o f Status Description Data Source(s) Unknown Male Problem [facility] ([facility]) Unknown Male Problem [facility] ([facility]) Encounters Encounter Providers Location Date Indications Data Source(s ) Outpatient Attender: Lizett Nixon/[place]hoa/Re indl 06/22/2020 09:15:00 AM EST [facility] ([facility] Outpatient Attender: Lizett Nixon/[place]/Re indl 06/14/2020 12:23:00 AM EST [facility] ([facility] Outpatient Attender: Lizett Nixon/[place]hoa/Re indl 06/13/2020 12:23:00 AM EST [facility] ([facility] Outpatient Attender: Lizett Nixon/[place]hoa/Re indl 06/12/2020 12:23:00 AM EST [facility] ([facility] Outpatient Referrer: Bethany Felix MD 06/11/2020 09:36:00 AM EST Pleural effusion, not elsewhere classified [facility] Pleural effusion, not elsewhere classifi ed Outpatient Attender: Lizett Nixon/[place]hoa/Re indl 06/10/2020 12:23:00 AM EST [facility] ([facility] Outpatient Attender: Lizett Nixon/[place]hoa/Re indl 06/09/2020 12:23:00 AM EST [facility] ([facility] Outpatient Attender: Lizett Nixon/[place]hoa/Re indl 06/08/2020 12:23:00 AM EST [facility] ([facility] Outpatient Admitter: Bethany Felix MDReferrer: Bethany Felix MD 06/08/2020 12:00:00 AM EST Secondary malignant neoplasm of unspecified site [facility] Secondary malignant neoplasm of unspecif ied site Outpatient Attender: Kike Nixon/[place]/Khoa/R eindl 06/01/2020 09:00:00 AM EST [facility] ([facility] Outpatient Attender: Julio Reyes MDReferrer: Stevan Talamantes MD [email or web address] 05/28/2020 12:00:00 AM EST - 05/28/2020 10:45:33 AM EST [facility] Outpatient<td ID="encounterTypeDescripti onID0">STANDARD OV</td><td>Esha Talamantes MD</td><td>[facility]</td><td>05/20/2020</td><td>8:34AM</td><td>05/07/2020 11:59PM</td><td><content ID="encounterDiagnosisID0-0">Working Diagnosis of Abdominal Pain</content>, <content ID="encounterDiagnosisID0-1">Working Diagnosis of Abdominal Pain in the Central Upper Belly (Epigastric)</content>, <content ID="encounterDiagnosisID0-2">Chest Pain</content>, <content ID="encounterDiagnosisID0-3">Hypoxia</content></td> Attender: Esha Talamantes MD [facility], 05/20/2020 08:34:00 AM EST - 05/07/2020 11:59:00 PM EST HypoxiaChest PainWorking Diagnosis of Ab dominal Pain in the Central Upper Belly (Epigastric)Working Diagnosis of Abdominal Pain [facility] ([facility]) Hypoxia Chest Pain Working Diagnosis of Abdominal Pain in t he Central Upper Belly (Epigastric) Working Diagnosis of Abdominal Pain Outpatient Attender: Esha Talamantes MDConsultant: Esha branch MD 05/07/2020 09:30:00 AM EST - 05/07/2020 10:30:00 AM EST [facility] Outpatient<td ID="encounterTypeDescripti onID1">STANDARD OV</td><td>Esha Talamantes MD</td><td>[facility]</td><td>05/07/2020</td><td>8:07AM</td><td>9:08AM</td><td><content ID="encounterDiagnosisID1-0">Acute Infective Exacerbation of Chronic Obstructive Airways Disease</content>, <content ID="encounterDiagnosisID1-1">Nicotine Dependence Uncomplicated</content>, <content ID="encounterDiagnosisID1- 2">Atypical Chest Pain</content></td> Attender: Esha Talamantes MD [facility], 05/07/2020 08:07:00 AM EST - 05/07/2020 09:08:00 AM ES T Atypical Chest PainNicotine Dependence UncomplicatedAcute Infective Exacerbation of Chronic Obstructive Airways DiseaseAtypical Chest PainNicotine Dependence UncomplicatedAcute Infective Exacerbation of Chronic Obstructive Airways Disease Atypical Chest PainNicotine Dependence UncomplicatedAcute Infective Exacerbation of Chronic Obstructive Airways Disease [facility] ([facility]) Atypical Chest Pain Nicotine Dependence Uncomplicated Acute Infective Exacerbation of Chronic Obstructive Airways Disease Atypical Chest Pain Nicotine Dependence Uncomplicated Acute Infective Exacerbation of Chronic Obstructive Airways Disease Atypical Chest Pain Nicotine Dependence Uncomplicated Acute Infective Exacerbation of Chronic Obstructive Airways Disease Outpatient Attender: Esha Talamantes MDConsultant: Esha branch MD 04/30/2020 08:24:00 AM EST - 04/30/2020 09:24:00 AM EST [facility] Outpatient<td ID="encounterTypeDescripti onID2">HOSP I/P F/U</td><td>Esha Talamantes MD</td><td>[facility],</td><td>04/22/2020</td><td>10:05AM</td><td>11:03AM</td><td><content ID="encounterDiagnosisID2-0">Vitreous Floaters Right Eye</content>, <content ID="encounterDiagnosisID2-1">Chronic Obstructive Pulmonary Disease</content>, <content ID="encounterDiagnosisID2-2">Essential Hypertension Benign</content>, <content ID="encounterDiagnosisID2-3">Hyperlipidemia</content>, <content ID="encounterDiagnosisID2-4">Diabetes Mellitus Type 2 in Obese</content>, <content ID="encounterDiagnosisID2-5">Lung Mass</content>, <content ID="encounterDiagnosisID2-6">Fatigue</content></td> Attender: Esha Talamantes MD [facility], 04/22/2020 10:05:00 AM EST - 04/22/2020 11:03:00 [...] DiseaseHyperlipidemiaChronic Obstructive Pulmonary DiseaseHyperlipidemiaChronic Obstructive Pulmonary Disease [facility] ([facility]) Fatigue Lung Mass Diabetes Mellitus Type 2 [...] 04/12/2020 11:42:00 AM EDT CHEST PAIN,COPD EXACERBATION [facility] CHEST PAIN,COPD EXACERBATION Patient discharged. Outpatient<td ID="encounterTypeDescripti onID3">RX UPDATE</td><td>Esha Talamantes MD</td><td>[facility]</td><td>11/20/2019</td><td>08/20/2019 11:10AM</td><td>08/20/2019 11:59PM</td><td></td> Attender: Esha Talamantes MD [facility] 08/20/2019 11:10:00 AM EST - 08/20/2019 11:59:00 PM [facility]) Outpatient<td ID="encounterTypeDescripti onID4">ANNUAL PHYSICAL EXAM</td><td>Esha Talamantes MD</td><td>[facility]</td><td>08/20/2019</td><td>8:13AM</td><td>9:35AM</td><td><content ID="encounterDiagnosisID4-0">Fatigue</content>, <content ID="encounterDiagnosisID4-1">Hypogonadism</content>, <content ID="encounterDiagnosisID4-2">Hyperlipidemia</content>, <content ID="encounterDiagnosisID4-3">Benign Prostatic Hypertrophy</content>, <content ID="encounterDiagnosisID4-4">Diabetes Mellitus Type 2 in Nonobese</content>, <content ID="encounterDiagnosisID4-5">Routine History & Physical Senior Citizen with Abnormal Findings</content></td> Attender: Esha Talamantes MD [facility], 08/20/2019 08:13:00 AM EST - 08/20/2019 09:35:00 [...] in NonobeseBenign Prostatic HypertrophyHypogonadismFatigue HyperlipidemiaHyperlipidemiaHyperlipidemiaHyperlipidemiaHyperlipidemiaHyperlipid noe [facility] ([facility]) Routine History & Physical Senior Citize n [...] 07:43:00 AM EST - 08/12/2019 08:43:00 AM [facility] Outpatient<td ID="encounterTypeDescripti onID5">STANDARD OV</td><td>Esha Talamantes MD</td><td>[facility],</td><td>08/07/2019</td><td>1:54PM</td><td>3:09PM</td><td><content ID="encounterDiagnosisID5-0">Cervicalgia</content>, <content ID="encounterDiagnosisID5-1">Chronic Obstructive Pulmonary Disease</content>, <content ID="encounterDiagnosisID5-2">Hypercalcemia</content>, <content ID="encounterDiagnosisID5-3">Bursitis Olecranon Left</content>, <content ID="encounterDiagnosisID5-4">Psoriasis</content>, <content ID="encounterDiagnosisID5-5">Diabetes Mellitus Secondary with Peripheral Neuropathy</content></td> Attender: Esha Talamantes MD [facility] 08/07/2019 01:54:00 PM EST - 08/07/2019 [...] DiseaseChronic Obstructive Pulmonary DiseaseChronic Obstructive Pulmonary Disease [facility] ([facility]) Diabetes Mellitus Secondary with Periphe ral Neuropathy [...] Obstructive Pulmonary Disease Outpatient 07/07/2019 03:17:00 PM [facility] Emergency Attender: MALA PANIAGUA MDConsultant: Esha branch MD 07/07/2019 01:18:00 PM [facility] - 07/07/2019 03:37:00 PM [facility] Patient discharged. Outpatient<td ID="encounterTypeDescripti onID6">STANDARD OV</td><td>Esha Talamantes MD</td><td>[facility],</td><td>06/25/2019</td><td>10:55AM</td><td>11:58AM</td><td><content ID="encounterDiagnosisID6-0">Chronic Obstructive Pulmonary Disease</content>, <content ID="encounterDiagnosisID6-1">Hyperlipidemia</content>, <content ID="encounterDiagnosisID6-2">Diabetes Mellitus Type 2</content>, <content ID="encounterDiagnosisID6-3">Obesity</content>, <content ID="encounterDiagnosisID6-4">Diabetes Mellitus Type 2 with Coma</content>, <content ID="encounterDiagnosisID6-5">Hypogonadism</content></td> Attender: Esha Talamantes MD [facility], 06/25/2019 10:55:00 AM EST - 06/25/2019 11:58:00 [...] DiseaseHyperlipidemiaChronic Obstructive Pulmonary DiseaseHyperlipidemiaChronic Obstructive Pulmonary Disease [facility] ([facility]) Hypogonadism Diabetes Mellitus Type 2 with Coma [...] Pulmonary Disease Outpatient<td ID="encounterTypeDescripti onID7">Prescription Refill (Telephone, [phone]</td><td>Esha Talamantes MD</td><td></td><td>05/30/2019</td><td>02/04/2019 2:09PM</td><td>02/04/2019 11:59PM</td><td></td> Attender: Esha Talamantes MD 05/30/2019 02:09:00 PM EST - 02/04/2019 11:59:00 PM EDT [facility] ([facility]) Functional Status Immunizations Vaccine Date Status Description Data Source(s) pneumococcal polysaccharide PPV23 08/07/2019 03:08:00 PM EST com pleted PCV (Pneumovax 23) ages 2+ 1 08/07/2019 Complete (Ref used - Patient objection) [facility] ([facility]) Medications Medication Brand Name Start Date Product [...] 1 TWICE A DAY THEREAFTER SOLD: 06/14/2020 [facility] pantoprazole 40 MG Delayed Release Oral Tablet PANTOPRAZOLE SODIUM 06/14/2020 12:00:00 AM EST tablet,delayed release (DR/EC) 30 T CARY ONE TABLET BY MOUTH EVERY DAY TAKE ONE TABLET BY MOUTH EVERY DAY SOLD: 06/14/2020 [facility] 100 mg 06/14/2020 12:00:00 AM EST capsule 60 TAKE ONE CAPSULE BY MOUTH TWICE A DAY TAKE ONE CAPSULE BY MOUTH TWICE A DAY SOLD: 06/14/2020 [facility] 7 ACTUAT umeclidinium 0.0625 MG/ACTUAT Dry Powder Inha ler [Incruse] Incruse Ellipta 06/01/2020 12:00:00 AM EST RESPIRATORY active [facility] ([facility], ) Prednisone 10 MG Oral Tablet Prednisone 06/01/2020 12:00:00 AM EST ORAL completed [facility] ([facility], ) Metformin hydrochloride 500 MG Oral Tablet metFORMIN ( GLUCOPHAGE) 500 MG tablet metFORMIN (GLUCOPHAGE) 500 MG tablet 05/20/2020 12:00:00 AM EST 1 { tbl} Oral active Take 1 tablet by mouth 2 (two) times a day [facility] Lancets Ultra Fine Miscellaneous Lancets Ultra Fine Miscella neous 05/20/2020 12:00:00 AM EST active Lancets Ultra Fine [facility] ([facility]) IGlucose Test Strips In Vitro IGlucose Test Strips In Vitro 05/20/2020 12:00:00 AM EST active IGlucose Test Str ips [facility] ([facility]) Albuterol 0.833 MG/ML / Ipratropium Brom delmer 0.167 MG/ML Inhalant Solution ipratropium-albuterol (DUO-NEB) 0.5-2.5 mg/mL nebulizer ipratropium-albuterol (DUO-NEB) 0.5-2.5 mg/mL nebulizer 05/20/2020 12:00:00 AM EST active INHALE 1 VIAL VIA NEB QID PRN [facility] Triamcinolone Acetonide 1 MG/ML Topical Lotion Triamcinolone Acetonide 0.1% External Lotion Triamcinolone Acetonide 0.1% External Lotion 0 12:00:00 AM EST active triamcinolone ac etonide 1 MG/ML Topical Lotion [facility] ([facility]) atorvastatin 20 MG Oral Tablet Atorvastatin Calcium 20 MG Oral Tablet Atorvastatin Calcium 20 MG Oral Tablet 05/20/2020 12:00:00 AM EST 1 active at[facility]vastatin 20 MG [facility] Metformin hydrochloride 500 MG Oral Tablet metFORMIN H Cl 500 MG Oral Tablet metFORMIN HCl 500 MG Oral Tablet 05/20/2020 12:00:00 AM EST active metformin hydrochloride 500 MG Oral Tablet [facility] ([facility]) 60 ACTUAT Budesonide 0.16 MG/ACTUAT / [...] Solution 05/20/2020 12:00:00 AM EST 18 active [id number] 200 ACTUAT albuterol 0.09 MG/ACTUAT Metered Dose Inhaler [ProAir] [facility] ([facility]) Lisinopril 5 MG Oral Tablet Lisinopril 5 MG Oral Tablet 07/2019 12:00:00 AM EST active lisinopril 5 MG O ral Tablet [facility] ([facility]) Lisinopril 5 MG Oral Tablet lisinopril (PRINIVIL,ZESTR IL) 5 MG tablet lisinopril (PRINIVIL,ZESTRIL) 5 MG tablet 05/19/2020 12:00:00 AM EST 1 {tbl} O ral active Take 1 tablet by mouth daily [facility] Lisinopril 5 MG Oral Tablet Lisinopril 5 MG Oral Tablet 04/20 12:00:00 AM EST aborted lisinopril 5 MG Oral Tablet [facility] ([facility]) Prednisone 10 MG Oral Tablet predniSONE 10 [...] Solution 04/22/2020 12:00:00 AM EST 18 aborted [id number] 200 ACTUAT albuterol 0.09 MG/ACTUAT Metered Dose Inhaler [ProAir] [facility]) Metformin hydrochloride 500 MG Oral Tablet metFORMIN H Cl 500 MG Oral Tablet metFORMIN HCl 500 MG Oral Tablet 04/22/2020 12:00:00 AM EST aborted metformin hydrochloride 500 MG Oral Tablet [facility] ([facility]) atorvastatin 20 MG Oral Tablet Atorvastatin Calcium 20 MG Oral Tablet Atorvastatin Calcium 20 MG Oral Tablet 04/22/2020 12:00:00 AM EST 1 aborted atorvastatin 20 MG Oral Tablet [facility]) Lisinopril 5 MG Oral Tablet Lisinopril 5 MG Oral Tablet 09/2019 12:00:00 AM EST 1 aborted lisinopril 5 MG Oral Tablet [facility]) Dextromethorphan Hydrobromide 2 MG/ML / Guaifenesin 20 MG/ML Oral Solution Dextromethorphan-Guaifenesin Dextromethorphan-Guaifenesin 04/12/2020 10:03:10 AM EDT 10 ML active [facility] Albuterol 0.833 MG/ML / Ipratropium Brom delmer 0.167 MG/ML Inhalant Solution Ipratropium-Albuterol Ipratropium-Albuterol 04/12/2020 10:02:36 AM EDT 3 ML active [facility] Prednisone 20 MG Oral Tablet Prednisone 04/12/2020 10:01:33 AM EDT [address] [facility] Azithromycin 500 MG Oral Tablet Azithromycin 04/12/2020 10:00:43 AM EDT 500 MG active [facility] atorvastatin 20 MG Oral Tablet Atorvastatin Atorvastatin 04/11/2020 09:16:15 PM EDT 20 MG active [facility] Aetlnwfmyize-Gfvdwivo-Goadxp (Centrum Silver) Tablet 04/11/2020 09:16:15 PM EDT 1 TAB active [facility] atorvastatin 20 MG Oral Tablet Atorvastatin Atorvastatin 04/11/2020 09:16:15 PM EDT 20 MG active [facility] Metformin hydrochloride 500 MG Oral Tablet Metformin 04/11 09:16:15 PM EDT 500 MG active [facility] Aspirin 04/11/2020 09:16:15 PM EDT 81 MG active [facility] Aspirin 04/11/2020 09:16:15 PM EDT 81 MG active [facility] 120 ACTUAT Budesonide 0.16 MG/ACTUAT / f ormoterol fumarate 0.0045 MG/ACTUAT Metered Dose Inhaler Budesonide-Formoterol (Symbicort) 160-4.5 mcg/actuation HFA aerosol inhaler Budesonide-Formoterol (Symbicort) 160-4. 5 mcg/actuation HFA aerosol inhaler 04/11/2020 09:16:15 PM EDT 2 PUFFS activ e [facility] Metformin hydrochloride 500 MG Oral Tablet Metformin 04/11 09:16:15 PM EDT 500 MG active [facility] 120 ACTUAT Budesonide 0.16 MG/ACTUAT / f ormoterol fumarate 0.0045 MG/ACTUAT Metered Dose Inhaler Budesonide-Formoterol (Symbicort) 160-4.5 mcg/actuation HFA aerosol inhaler Budesonide-Formoterol (Symbicort) 160-4. 5 mcg/actuation HFA aerosol inhaler 04/11/2020 09:16:15 PM EDT 2 PUFFS activ [facility] Albuterol Sulfate (Proair Hfa) 90 mcg/actuation HFA aerosol inhaler 04/11/2020 09:16:15 PM EDT 2 PUFFS active [facility] Sirkilybahlm-Urxbrgdr-Nownmd 04/11/2020 09:16:15 PM EDT 1 T AB active [facility] Albuterol Sulfate (Proair Hfa) 90 mcg/actuation HFA aerosol inhaler 04/11/2020 09:16:15 PM EDT 2 PUFFS active [facility] 60 ACTUAT Budesonide 0.16 MG/ACTUAT / fo rmoterol fumarate 0.0045 MG/ACTUAT Metered Dose Inhaler [Symbicort] Symbicort 160-4.5 MCG/ACT Inhalation Aerosol Symbicort 160-4.5 MCG/ACT Inhalation Aerosol 11/20/2019 12:00:00 AM EDT aborted 60 ACTUAT budeso nide 0.16 MG/ACTUAT / formoterol fumarate 0.0045 MG/ACTUAT Metered Dose Inhaler [Symbicort] [facility] ([facility]) Lisinopril 5 MG Oral Tablet Lisinopril 5 MG Oral Tablet 08/2019 12:00:00 AM EDT 1 aborted lisinopril 5 MG Oral Tablet [facility] ([facility]) 200 ACTUAT Albuterol 0.09 MG/ACTUAT Mete red Dose Inhaler [ProAir] ProAir HFA 108 (90 Base) MCG/ACT Inhalation Aerosol Solution ProAir HFA 108 (90 Base) MCG/ACT Inhalation Aerosol Solution 10/24/2019 12:00:00 AM EDT 18 aborted [id number] 200 ACTUAT albuterol 0.09 MG/ACTUAT Metered Dose Inhaler [ProAir] [facility] ([facility]) Lisinopril 5 MG Oral Tablet Lisinopril 5 MG Oral Tablet 08/2019 12:00:00 AM EST 1 aborted lisinopril 5 MG Oral Tablet [facility] ([facility]) Triamcinolone Acetonide 1 MG/ML Topical Lotion Triamcinolone Acetonide 0.1% External Lotion Triamcinolone Acetonide 0.1% External Lotion 0 12:00:00 AM EST aborted triamcinolone a cetonide 1 MG/ML Topical Lotion [facility] ([facility]) 200 ACTUAT Albuterol 0.09 MG/ACTUAT Mete red Dose Inhaler [ProAir] ProAir HFA 108 (90 Base) MCG/ACT Inhalation Aerosol Solution ProAir HFA 108 (90 Base) MCG/ACT Inhalation Aerosol Solution 08/20/2019 12:00:00 AM EST 18 aborted [id number] 200 ACTUAT albuterol 0.09 MG/ACTUAT Metered Dose Inhaler [ProAir] [facility] ([facility]) 5000 MG Testosterone 0.01 MG/MG Topical Gel [Androgel] AndroGel 50 MG/5GM (1%) Transdermal AndroGel 50 MG/5GM (1%) Transdermal 08/20/2019 12:00:00 AM EST aborted 5000 MG testosterone 0.01 MG/MG Topical Gel [Androgel] [facility] ([facility]) IGlucose Test Strips In Vitro IGlucose Test Strips In Vitro 08/20/2019 12:00:00 AM EST aborted IGlucose Test St rips [facility] ([facility]) atorvastatin 20 MG Oral Tablet Atorvastatin Calcium 20 MG Oral Tablet Atorvastatin Calcium 20 MG Oral Tablet 08/20/2019 12:00:00 AM EST 1 aborted atorvastatin 20 MG Oral Tablet [facility]) 60 ACTUAT Budesonide 0.16 MG/ACTUAT / fo rmoterol fumarate 0.0045 MG/ACTUAT Metered Dose Inhaler [Symbicort] Symbicort 160-4.5 MCG/ACT Inhalation Aerosol Symbicort 160-4.5 MCG/ACT Inhalation Aerosol 08/20/2019 12:00:00 AM EST aborted 60 ACTUAT budeso nide 0.16 MG/ACTUAT / formoterol fumarate 0.0045 MG/ACTUAT Metered Dose Inhaler [Symbicort] [facility] ([facility]) Lancets Ultra Fine Miscellaneous Lancets Ultra Fine Miscella neous 08/20/2019 12:00:00 AM EST aborted Lancets Ultra Fine [facility] ([facility]) Metformin hydrochloride 500 MG Oral Tablet metFORMIN H Cl 500 MG Oral Tablet metFORMIN HCl 500 MG Oral Tablet 08/20/2019 12:00:00 AM EST aborted metformin hydrochloride 500 MG Oral Tablet [facility] ([facility]) Lancets Ultra Fine Miscellaneous Lancets Ultra Fine Miscella neous 06/25/2019 12:00:00 AM EST aborted Lancets Ultra Fine [facility] ([facility]) IGlucose Test Strips In Vitro IGlucose Test Strips In Vitro 06/25/2019 12:00:00 AM EST aborted IGlucose Test St rips [facility] ([facility]) Metformin hydrochloride 500 MG Oral Tablet metFORMIN H Cl 500 MG Oral Tablet metFORMIN HCl 500 MG Oral Tablet 06/25/2019 12:00:00 AM EST aborted metformin hydrochloride 500 MG Oral Tablet [facility] ([facility]) atorvastatin 20 MG Oral Tablet Atorvastatin Calcium 20 MG Oral Tablet Atorvastatin Calcium 20 MG Oral Tablet 06/25/2019 12:00:00 AM EST 1 aborted atorvastatin 20 MG Oral Tablet [facility] ([facility]) 60 ACTUAT Budesonide 0.16 MG/ACTUAT / fo rmoterol fumarate 0.0045 MG/ACTUAT Metered Dose Inhaler [Symbicort] Symbicort 160-4.5 MCG/ACT Inhalation Aerosol Symbicort 160-4.5 MCG/ACT Inhalation Aerosol 06/25/2019 12:00:00 AM EST aborted 60 ACTUAT budeso nide 0.16 MG/ACTUAT / formoterol fumarate 0.0045 MG/ACTUAT Metered Dose Inhaler [Symbicort] [facility] ([facility]) Metformin hydrochloride 500 MG Oral Tablet metFORMIN H Cl 500 MG Oral Tablet metFORMIN HCl 500 MG Oral Tablet 05/30/2019 12:00:00 AM EST aborted metformin hydrochloride 500 MG Oral Tablet [facility] ([facility]) 200 ACTUAT Albuterol 0.09 MG/ACTUAT Mete red Dose Inhaler [ProAir] ProAir HFA 108 (90 Base)MCG/ACT Inhalation Aerosol Solution ProAir HFA 108 (90 Base)MCG/ACT Inhalation Aerosol Solution 01/24/2019 12:00:00 AM EDT 18 aborted [id number] 200 ACTUAT albuterol 0.09 MG/ACTUAT Metered Dose Inhaler [ProAir] [facility] ([facility]) Metformin hydrochloride 500 MG Oral Tablet metFORMIN H Cl 500MG Oral Tablet metFORMIN HCl 500MG Oral Tablet 01/24/2019 12:00:00 AM EDT aborted metformin hydrochloride 500 MG Oral Tablet [facility] ([facility]) IGlucose Test Strips In Vitro IGlucose Test Strips In Vitro 01/24/2019 12:00:00 AM EDT aborted IGlucose Test St rips [facility] ([facility]) Triamcinolone Acetonide 1 MG/ML Topical Lotion Triamcinolone Acetonide 0.1% External Lotion Triamcinolone Acetonide 0.1% External Lotion 9 12:00:00 AM EDT aborted triamcinolone a cetonide 1 MG/ML Topical Lotion [facility] ([facility]) Lancets Ultra Fine Miscellaneous Lancets Ultra Fine Miscella neous 01/24/2019 12:00:00 AM EDT aborted Lancets Ultra Fine [facility] ([facility]) 30 ACTUAT fluticasone furoate 0.1 MG/ACT UAT / vilanterol 0.025 MG/ACTUAT Dry Powder Inhaler [Breo] Breo Ellipta 100-25MCG/INH Inhalation Aerosol Powder Breath Activated Breo Ellipta 100-25MCG/INH Inhalation Ae rosol Powder Breath Activated 01/24/2019 12:00:00 AM EDT aborted 30 ACTUAT fluticasone furoate 0.1 MG/ACTUAT / vilanterol 0.025 MG/ACTUAT Dry Powder Inhaler [Breo] [facility] ([facility]) atorvastatin 20 MG Oral Tablet Atorvastatin Calcium 20 MG Oral Tablet Atorvastatin Calcium 20MG Oral Tablet 01/24/2019 12:00:00 AM EDT 1 aborted atorvastatin 20 MG Oral Tablet [facility] ([facility]) pantoprazole 40 MG Delayed Release Oral Tablet pantoprazole (PROTONIX) 40 MG tablet pantoprazole (PROTONIX) 40 MG tablet 04/16/2016 12:00:00 AM EDT aborted [facility] atorvastatin 40 MG Oral Tablet atorvastatin (LIPITOR) 40 MG tablet atorvastatin (LIPITOR) 40 MG tablet 10/10/2014 12:00:00 AM EDT aborted [facility] 200 ACTUAT Levalbuterol 0.045 MG/ACTUAT Metered Dose Inhaler [Xopenex] XOPENEX HFA 45 MCG/ACT inhaler XOPENEX HFA 45 MCG/ACT inhaler 04/23/2014 12:00:00 AM EST aborted [facility] ALBUTEROL IN aborted prn [facility] Nitroglycerin 0.4 MG Sublingual Tablet n itroglycerin (NITROSTAT) 0.4 MG SL tablet nitroglycerin (NITROSTAT) 0.4 MG SL tablet aborted sl prn cp-take up to 3 tabs 5 minutes apart to resolve cp [facility] DAILY DIONNE (THERAGRAN) per tablet 58994-586-19 Oral aborted Take by mouth [facility] Cholecalciferol 2000 UNT Oral Capsule Ch olecalciferol (VITAMIN D3) 2000 UNITS capsule Cholecalciferol (VITAMIN D3) 2000 UNITS capsule Oral aborted Take by mouth [facility] 24 HR metoprolol succinate 25 MG Extende d Release Oral Tablet metoprolol (TOPROL-XL) 25 MG 24 hr tablet metoprolol (TOPROL-XL) 25 MG 24 hr tablet 25 mg Oral aborted Take 25 mg by mouth [facility] Aspirin 325 MG Oral Tablet aspirin 325 MG tablet aspirin 325 MG tab let 81 mg Oral aborted Take 81 mg by mouth [facility] Insurance Providers Payer name Policy type / Coverage type Policy ID Covered constitution party ID Covered constitution party's relationship to nino Policy Nino Plan Information CELESTINO [id number] SP [id number] CELESTINO EXCHANGE [id number] Self [id number] [facility] [id number] [facility] [id number] CELESTINO [id number] SP [id number] [place] CARE [place] [id number] O [id number] CELESTINO MEDICAID [id number] Emperatriz 7 [id number] CELESTINO MEDICAID [id number] [facility] [place] Other 0 Self 0 [facility] [place] Other 0 Self 0 [place] CARE [place] - [id number] 18 [id number] [place] Other 0 Self 0 [facility] [place] Other 0 Self 0 [facility] [place] Other 0 Self 0 [place] Other 0 Self 0 [facility] [place] Other 0 Self 0 [place] Other 0 Self 0 [place] Other 0 Self 0 [place] [id number] 18 [id number] [facility] [place] Other 0 Self 0 [place] Other 0 Self 0 [facility] [place] Other 0 Self 0 [facility] [place] Other 0 Self 0 [facility] [place] Other 0 Self 0 [facility] [place] Other 0 Self 0 [place] Other 0 Self 0 [place] U [id number] Self [id number] STATE INS FUND W [id number] Empl [id number] STATE INS FUND W [id number] Empl [id number] [place] State Insurance Fund Workers Compensation [id number] Self [id number] 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 [id number] Self [id number] [facility] Commercial Self [place] State Insurance Fund Workers Compensation Self CELESTINO MEDICAID [id number] Emperatriz 7 [id number] MEDICAID [id number] Emperatriz [id number] POMCO [id number] Emperatriz [id number] [place] Commercial Self STATE INS FUND W [id number] Empl [id number] [place] O [id number] S [id number] STATE INSURANCE FUND O [id number] S [id number] STATE INSURANCE FUND O [id number] S [id number] [employer] [id number] SP [id number] POMCO [id number] SP [id number] Problems, Conditions, and Diagnoses Code Display Name Description Problem Type Effective Dates Data Source(s) 20815810 Type 1 diabetes mellitus Type 1 diabetes mellitus Prob rose 06/21/2020 12:00:00 AM EST [facility] ([facility], ) R06.02 Shortness of breath Shortness of breath [id number] 1 07/29/2019 12:00:00 AM EST [facility] R91.8 Mass of upper lobe of right lung Mass of upper l obe of right lung [id number] 05/28/2020 12:00:00 AM EST [facility] J90 Pleural effusion, not elsewhere classifi ed Pleural effusion, not elsewhere classified Diagnosis 06/11/2020 09:36:00 AM EST [facility] C79.9 Secondary malignant neoplasm of unspecif ied site Secondary malignant neoplasm of unspecified site Diagnosis 06/08/2020 08:48:00 AM [facility] I48.0 Paroxysmal atrial fibrillation Paroxysmal atrial fibri llation Diagnosis 05/28/2020 08:55:00 AM EST [facility] R06.02 Shortness of breath Shortness of breath Diagnosis 1 07/29/2019 08:55:00 AM EST [facility] R91.8 Other nonspecific abnormal finding of maira ng field Other nonspecific abnormal finding of maira Diagnosis 05/28/2020 08:55:00 AM EST [facility] R07.9 Chest pain, unspecified Chest pain, unspecified Diagno sis 05/28/2020 08:55:00 AM [facility] R079 Chest pain, unspecified Chest pain, unspecified Diagno sis 05/07/2020 09:30:00 AM [facility] I10 Essential (primary) hypertension Essential (primary) h ypertension Diagnosis 04/30/2020 08:24:00 AM [facility] E782 Mixed hyperlipidemia Mixed hyperlipidemia Diagnosis 04/30/2020 08:24:00 AM [facility] R5383 Other fatigue Other fatigue Diagnosis 04/30/2020 08:24:00 AM [facility] Z125 Encounter for screening for malignant ne oplasm of prostate Encounter for screening for malignant neoplasm of prostate Diagnosis 0 07:43:00 AM [facility] E291 Testicular hypofunction Testicular hypofunction Diagno sis 08/12/2019 07:43:00 AM [facility] E8352 Hypercalcemia Hypercalcemia Diagnosis 08/12/2019 07:43:00 AM [facility] [id number] Personal history of nicotine dependence Personal history of nicotine dependence Diagnosis 07/07/2019 01:18:00 PM [facility] 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) use of oral hypoglycemic drugs Diagnosis 07/07/2019 01:18:00 PM [facility] Z7982 custodial (current) use of aspirin custodial (cu rrent) use of aspirin Diagnosis 07/07/2019 01:18:00 PM [facility] J449 Chronic obstructive pulmonary disease, u nspecified Chronic obstructive pulmonary disease, unspecified Diagnosis 07/07/2019 01:18:00 PM [facility] E119 Type 2 diabetes mellitus without complic ations Type 2 diabetes mellitus without complications Diagnosis 07/07/2019 01:18:00 PM [facility] M7022 Olecranon bursitis, left elbow Olecranon bursitis, lef t elbow Diagnosis 07/07/2019 01:18:00 PM [facility] R2232 Localized swelling, mass and lump, left upper limb Localized swelling, mass and lump, left upper limb Diagnosis 07/07/2019 01:18:00 PM [facility] Y9389 Activity, other specified Activity, other specified Di agnosis 07/07/2019 01:18:00 PM [facility] Surgeries/Procedures Procedure Description Date Indications Data Source(s) INSERTION INDWELLING TUNNELED PLEURAL CATHETER 020 12:00:00 AM EST MED[facility] ([facility], ) DEMO&/EVAL OF PT UTILIZ AERSL GEN/NEB/INHLR/IPPB 06/01 12:00:00 AM EST [facility] ([facility], ) ECG ROUTINE ECG W/LEAST 12 LDS W/I&R POCT AMB EKG Routine 05/28/2020 9:15 AM EST Chest pain, unspecified type 05/28/2020 02:15:00 PM EST [place] pain, unspecified type [facility] Chest pain, unspecified type ELECTROCARDIOGRAM, COMPLETE (EKG) ELECTROCARDIOGRAM, COMPLET E (EKG) 05/07/2020 12:00:00 AM EST [facility] ([facility]) ELECTROCARDIOGRAM, COMPLETE (EKG) ELECTROCARDIOGRAM, COMPLET E (EKG) 05/07/2020 12:00:00 AM EST [facility] ([facility]) Computed tomography angiography of thorax (procedure) 04/11/2020 08:44:00 PM EDT [facility] Computed tomography angiography of thorax (procedure) 04/11/2020 08:44:00 PM EDT [facility] l Plain chest X-ray (procedure) 04/11/2020 05:34:00 PM E DT [facility] CT Head without contrast 04/11/2020 05:34:00 PM EDT [facility] Plain chest X-ray (procedure) 04/11/2020 05:34:00 PM E DT [facility] CT Head without contrast 04/11/2020 05:34:00 PM EDT [facility] Blood Culture 04/11/2020 12:00:00 AM [facility] SARS-CoV-2 (PCR) Interpretation 04/11/2020 12:00:00 AM [facility] Blood Culture 04/11/2020 12:00:00 AM [facility] SARS-CoV-2 (PCR) Interpretation 04/11/2020 12:00:00 AM [facility] ELECTROCARDIOGRAM, COMPLETE (EKG) ELECTROCARDIOGRAM, COMPLET E (EKG) 08/20/2019 12:00:00 AM [facility]) FECAL BLOOD ASSAY TEST (waived laboratory) FECAL BLOOD ASSAY TEST (waived laboratory) 08/20/2019 12:00:00 AM [facility]) O2 SATURATION> 88% /OLI>55 O2 SATURATION> 88% /OLI>55 2019 12:00:00 AM [facility]) FECAL BLOOD ASSAY TEST FECAL BLOOD ASSAY TEST 08/20/2019 12:00:00 A M [facility]) ELECTROCARDIOGRAM, COMPLETE (EKG) ELECTROCARDIOGRAM, COMPLET E (EKG) 08/20/2019 12:00:00 AM [facility]) O2 SATURATION> 88% /OLI>55 O2 SATURATION> 88% /OLI>55 2019 12:00:00 AM [facility]) Blood culture for bacteria, including anaerobic screen (proc edure) 07/07/2019 12:00:00 AM [facility] Gram stain microscopy (procedure) 07/07/2019 12:00:00 AM [facility] Aerobic microbial culture (procedure) 07/07/2019 12:00 :00 AM [facility] Blood culture for bacteria, including anaerobic screen (proc edure) 07/07/2019 12:00:00 AM [facility] Gram stain microscopy (procedure) 07/07/2019 12:00:00 AM [facility] Aerobic microbial culture (procedure) 07/07/2019 12:00 :00 AM [facility] HbA1c (Glycosolated) (waived laboratory) HbA1c (Glycos olated) (waived laboratory) 06/25/2019 12:00:00 AM [facility] ([facility]) CAPILLARY BLOOD DRAW CAPILLARY BLOOD DRAW 06/25/2019 12:00:00 AM [facility] ([facility]) GLUCOSE (waived laboratory) GLUCOSE (waived laboratory) 12/2019 12:00:00 AM [facility] ([facility]) O2 SATURATION> 88% /OLI>55 O2 SATURATION> 88% /OLI>55 2019 12:00:00 AM [facility] ([facility]) Results ID Date Data Source [id number] 07/03/2020 09:52:00 AM EST [facility] Name Value Range Interpretation Code Description Data Shelly rce(s) Supporting Document(s) SARS-CoV-2 (COVID 19) NEGATIVE - SARS-CoV-2 (COVID19) [facility] This lab was ordered by [facility] a nd reported by [facility]. ID Date Data Source [id number] 06/22/2020 12:00:00 AM EST [facility] Lizett Cooley MD Patient Name: TOLU [id number] Date of : 1955[place] [address] Date of Exam: 06/22/2020#: Fax: [phone] EXAM: [...] rce(s) Supporting Document(s) ID Date Data Source [id number] 06/08/2020 04:28:00 AM EST [facility] Name Value Range Interpretation Code Description Data Shelly rce(s) Supporting Document(s) SARS coronavirus 2 RNA [Presence] in Res piratory specimen by KRISTEN with probe detection [facility] This lab was ordered by [facility] a nd reported by [facility]. ID Date Data Source [id number] 06/26/2020 06:36:00 PM [facility] Anatomic Molecular Pathology ReportName: TOLU RATLIFFMRScar: [id number] Number: [id number] Date: 06/08/2020 00:00Received Date: 06/16/2020 09:03Physician(s): BETHANY FELIX MD HAGHIR, SHAHANDEH F,MDCopy To:LIZETT COOLEY,[facility]) ReceivedA: Pleural fluid, Formalin Block [id number] A2 received from [facility] in [place], [place], ROS1 by FISHDiagnosisTEST:ROS1 gene rearrangements by [...] Miranda M.D. Attending Pathologist 06/26/2020 18:36:59Reported at [address] [place] [address]. Gross DescriptionMETHODOLOGY:Interphase FISH is performed on paraffin embedded NSCLC utilizing thecombined Night Node Software Molecular LSI ROS1(Eliza) and ROS1(Tel) ROS1 Probes: 1)3'-ROS1(Eliza), 557 kb, labeled with SpectrumGreen, and 2) 5'- ROS1(Tel),317kb, labeled with SpectrumOrange. Tumor cells with no VYP1jyaxjezbmfmauy have 2 yellow signals (fused orange and [...] and its performance characteristics weredetermined by the [facility],and it has been authorized for clinical use by [facility]. The test has not been cleared or approved by the U.S. Food andDrug Administration. The analyte specific reagents used in this assay donot require FDA approval. REFERENCES: 1. SHANTELL Juarez, Daisy AT, Theparadise MF et al. Identifying and Targeting ZQS0Oiwq Fusions in NonSmall Cell Lung Cancer. Clin Cancer Res 2012; 18(17);92596475.2. Iqbal, Severo AT. Novel Targets in Non-Small Cell Lung Cancer:ROS-1 and RET fusions. The Oncologist. 2013;18:865-875.This report may include one or more immunohistochemical stain results thatuse analyte specific reagents. All positive and negative controls havebeen reviewed by the attending pathologist and are satisfactory. The testswere developed and their performance characteristics determined by [facility] Pathology department. They have not been cleared or approved by the USFood and Drug Administration. The FDA has determine d that such clearanceor approval is not necessary. Name Value Range Interpretation Code Description Data Shelly rce(s) Supporting Document(s) ID Date Data Source [id number] 06/25/2020 12:10:00 PM [facility] Anatomic Molecular Pathology ReportName: TOLU RATLIFFMRN: [id number] Number: [id number] Date: 06/08/2020 00:00Received Date: 06/16/2020 09:06Physician(s): BETHANY FELIX MD HAGHIR, SHAHANDEH F,MDCopy To:LIZETT COOLEY,[facility]imen[facility]s) ReceivedA: Pleural fluid, Formalin Block [id number] A2 received from [facility] in [place], [place] BRAF Mutation AnalysisDiagnosisTESTS:BRAF V600E mutation (1799 [...] Miranda M.D. Attending Pathologist 06/25/2020 12:10:33Reported at [address] [place] [id number]. Gross DescriptionMETHODOLOGY:BRAF V600E(1799 T>A) mutation at exon [...] theamounts of PCR products, and analyzed by Adometry By GoogleGene Q real timeinstrument. The analytical sensitivity (or minimum percentage of mutantDNA needed) is approximately 10% given sufficient DNA input. Test development and its performance characteristics were determined bythe [facility], and has beenauthorized for clinical use by [facility]. Thetest has not been cleared or approved by the U.S. Food and DrugAdministration. The analyte specific reagents used in this assay do notrequire FDA approval. REFERENCES: 1. Dolores S, Milana , Deandre C, et al. Detection of BRAF S911Kbwwhgudp in colorectal cancer-comparison of automatic sequencing and realtime chemistry methodology. J Mol Diagn. 2006; 8:720329.2. Raul L, Chica REINA, Nayeli N, et al. BRAF mutation analysis in fineneedle aspiration (FNA) cytology of the thyroid. Diagn Mol Pa thol.2006;15:486047.3. Brenda PK, Glen ME, Lelo M, et al. Clinical characteristics ofpatients with lung adenocarcinomas harboring BRAF mutations. J Clin Oncol.2011;29:0807-8300.This report may include one or more immunohistochemical stain results thatuse analyte specific reagents. All positive and negative controls havebeen reviewed by the attending pathologist and are satisfactory. The testswere developed and their performance characteristics determined by [facility] Pathology department. They have not been cleared or approved by the USFood and Drug Administration. The FDA has determined that such clearanceor approval is not necessary. Name Value Range Interpretation Code Description Data Shelly rce(s) Supporting Document(s) ID Date Data Source [id number] 06/25/2020 09:32:00 AM EST [facility] Anatomic Molecular Pathology ReportName: TOLU RATLIFFMRN: [id number] Number: [id number] Date: 06/08/2020 00:00Received Date: 06/16/2020 09:04Physician(s): BETHANY FELIX MD HAGHIR, SHAHANDEH F,MDCopy To:LIZETT COOLEY,[facility]imen[facility]s) ReceivedA: Pleural fluid, Formalin Block [id number] A2 received from [facility] in [place], [place] EGFRDiagnosisTEST: EGFR gene mutations (exon 19 [...] indicated. Presence of exon 19 deletions, exon 95B802C or L861Q, exon 18 G719A or exon [...] Miranda M.D. Attending Pathologist 06/25/2020 09:32:10Reported at [address] [place] [address]. Gross DescriptionMETHODOLOGY:The therascreen EGFR RGQ PCR Kit ([employer], [place], [place]) is a real-timequalitative PCR assay used on the Internet college internation S.L. MDx instrument for thedetection of seven types of mutations at EGFR oncogene. The kit requiresDNA extracted from formalin-fixed paraffin-embedded (FFPE) tissue ofnon-small cell lung cancer. The tumor area is identified by the attendingpathologist and manually microdissected. The assay uses Scorpionse andARMSe (Allele Refractory Mutation System) technologies, and [facility] HospitalDA-approved for clinical patient care. Allele-specific amplification isachieved [...] factor receptormutations in lung cancer. Nature Review/Cancer. 2007;4880-9450.This report may include one or more immunohistochemical stain results thatuse analyte specific reagents. All positive and negative controls havebeen reviewed by the attending pathologist and are satisfactory. The testswere developed and their performance characteristics determined by [facility] Pathology department. They have not been cleared or approved by the USFood and Drug Administration. The FDA has determined that such clearanceor approval is not necessary. Name Value Range Interpretation Code Description Data Shelly rce(s) Supporting Document(s) ID Date Data Source [id number] 06/25/2020 09:18:00 AM [facility] Anatomic Molecular Pathology ReportName: TOLU RATLIFFNICK: [id number] Number: [id number] Date: 06/08/2020 00:00Received Date: 06/16/2020 09:05Physician(s): BETHANY FELIX MD HAGHIR, SHAHANDEH F,[facility] To:LIZETT COOLEY,[facility]imen[facility]s) ReceivedA: Pleural fluid, Formalin Block [id number] received from [facility] in [place] KRAS Mutation AnalysisDiagnosisTEST:KRAS gene mutations by [...] Miranda M.D. Attending Pathologist 06/25/2020 09:18:25Reported at [address] [place] [address]. Gross DescriptionMETHODOLOGY:The therascreen KRAS RGQ PCR Kit is a real-time qualitative PCR assay usedon the [place] [employer] instrument for the detection of seven somaticmutations [...] Morejon, Terri JM, Fahad MR, et al. [place] Societyof Clinical Oncology provisional clinical opinion: testing for KRAS genemutations in patients with metastatic colorectal carcinoma to predictresponse to anti-epidermal growth factor receptor monoclonal antibodytherapy. J Clin Oncol 27:8186-4271, 2009. 2. Magdalena S , Peg Javed , GALINA Mace, et al.Biomarkers predicting clinical outcome of epidermal growth factor receptortargeted therapy in metastatic colorectal cancer. J Natl Cancer Bqag547:98715992, 2009.This report may include one or more immunohistochemical stain results thatuse analyte specific reagents. All positive and negative controls havebeen reviewed by the attending pathologist and are satisfactory. The testswere developed and their performance characteristics determined by [facility] Pathology department. They have not been cleared or approved by the USFood and Drug Administration. The FDA has determined that such clearanceor approval is not necessary. Name Value Range Interpretation Code Description Data Shelly rce(s) Supporting Document(s) ID Date Data Source [id number] 06/25/2020 09:10:00 AM [facility] Anatomic Molecular Pathology ReportName: TOLU RATLIFFMRScar: [id number] Number: [id number] Date: 06/08/2020 00:00Received Date: 06/16/2020 09:01Physician(s): BETHANY FELXI MD HAGHIR, SHAHANDEH F,MDCopy To:LIZETT COOLEY,[facility]imen[facility]s) ReceivedA: Pleural fluid, Formalin Block [id number] received from [facility] in [place], [place], ALK by FISHDiagnosisTEST:ALK gene rearrangements by [...] M.D. Attending Pathologist 06/25/2020 09:10:47Reported at [address] [place] [address]. Gross DescriptionMETHODOLOGY:Interphase FISH is performed on paraffin embedded NSCLC utilizing theNight Node Software Molecular ALK Break Apart FISH Probe Kit. [...] the special procedure laboratory of Department of Pathology,[facility]. This report may include one or more immunohistochemical stain results thatuse analyte specific reagents. All positive and negative controls havebeen reviewed by the attending pathologist and are satisfactory. The testswere developed and their performance characte ristics determined by [facility] Pathology department. They have not been cleared or approved by the USFood and Drug Administration. The FDA has determined that such clearanceor approval is not necessary. Name Value Range Interpretation Code Description Data Shelly rce(s) Supporting Document(s) ID Date Data Source [id number] 05/07/2020 09:36:00 AM [employer] ([facility]) Name Value Range Interpretation Code Description Data Shelly rce(s) Supporting Document(s) Reported Physicians See Note Reported Physici ans ELIZABETH ([facility]) Note: Reported Physicians:Ordering: Esha De La Garza AAttending: ESHA TALAMANTESConsulting: Alex TALAMANTES To: Esha Talamantes ID Date Data Source [id number] 05/07/2020 09:36:00 AM [employer] ([facility]) Name Value Range Interpretation Code Description Data Shelly rce(s) Supporting Document(s) Procalcitonin [Mass/volume] in Serum or Plasma by Immunoassay 0.04 ng/mL Procalcitonin [facility] ([facility]) Note: A procalcitonin (PCT) level above [...] obtained.Responsible Observer: (rfl) ID Date Data Source [id number] 05/07/2020 09:36:00 AM [facility] ([facility]) Name Value Range Interpretation Code Description Data Shelly rce(s) Supporting Document(s) Reported Physicians See Note Reported Physic ans [facility] ([facility]) Note: Reported Physicians:Ordering: Beard e, Esha AAttending: VINITA, JOCELYNConsulting: VINITA, JOCELYNCopy To: Vinita, Esha ID Date Data Source [id number] 05/07/2020 09:36:00 AM [facility] ([facility]) Name Value Range Interpretation Code Description Data Shelly rce(s) Supporting Document(s) SED RATE 18 mm/hr SED RATE [facility] ([facility]) Note: Responsible Observer: (CM) SED RATE REENTER 18 SED RATE REENTER [facility] ([facility]) Note: Responsible Observer: (CM) ID Date Data Source [id number] 05/07/2020 09:36:00 AM [facility] ([facility]) Name Value Range Interpretation Code Description Data Shelly rce(s) Supporting Document(s) Reported Physicians See Note Reported [facility] ([facility]) Note: Reported Physicians:Ordering: Beard e, Esha AAttending: VINITA, JOCELYNConsulting: VINITA, JOCELYNCopy To: Vinita, Seha ID Date Data Source [id number] 05/07/2020 09:36:00 AM EST [facility] ([facility]) Name Value Range Interpretation Code Description Data Shelly rce(s) Supporting Document(s) CRP-HS 8.40 MG/L Above high normal CRP-HS [facility] ([facility]) Note: [facility] HS-CRP CUT-OFF : RELATIVE RISK: <1.0 mg/L Low 1.0 - 3.0 mg/L Average >3.0 mg/L High Optimally, the average of HS-CRP results repeated two weeks apart should be used for risk assessment.Responsible Observer: () ID Date Data Source [id number] 05/07/2020 09:36:00 AM EST ELIZABETH ([facility]) Name Value Range Interpretation Code Description Data Shelly rce(s) Supporting Document(s) Reported Physicians See Note Reported Physic ans BAYARD ([facility]) Note: Reported Physicians:Ordering: Chirag mulligan Esha AAttending: VINITA, JOCELYNConsulting: VINITA, JOCELYNCopy To: Esha Talamantes ID Date Data Source [id number] 05/07/2020 09:36:00 AM EST ELIZABETH ([facility]) Name Value Range Interpretation Code Description Data Shelly rce(s) Supporting Document(s) BNP 211 PG/ML Above high normal BNP [place]ARD ([facility]) Note: Responsible Observer: () ID Date Data Source [id number] 05/07/2020 09:36:00 AM EST ELIZABETH ([facility]) Name Value Range Interpretation Code Description Data Shelly rce(s) Supporting Document(s) Reported Physicians See Note Reported Physici ans [place]AYARD ([facility]) Note: Reported Physicians:Ordering: Beard e, Esha AAttending: VINITA, JOCELYNConsulting: VINITA, JOCELYNCopy To: Vinita Esha ID Date Data Source [id number] 05/07/2020 09:36:00 AM EST ELIZABETH ([facility]) Name Value Range Interpretation Code Description Data Shelly rce(s) Supporting Document(s) TROPONIN T <0.01 NG/ML TROPONIN T ELIZABETH ([facility]) Note: TROPONIN T0.1 ng/ml Recommended as the clinical threshold value forTroponin T.Responsible Observer: () ID Date Data Source [id number] 05/07/2020 09:36:00 AM EST ELIZABETH ([facility]) Name Value Range Interpretation Code Description Data Shelly rce(s) Supporting Document(s) Reported Physicians See Note Reported Physici ans ELIZABETH ([facility]) Note: Reported Physicians:Ordering: Esha De La Garza AAttending: VINITA JOCELYNConsulting: VINITA JOCELYNCopy To: Esha Talamantes ID Date Data Source [id number] 05/07/2020 09:36:00 AM EST ELIZABETH ([facility]) Name Value Range Interpretation Code Description Data Shelly rce(s) Supporting Document(s) #BASO 0.05 10\\^3/uL #BASO ELIZABETH ([facility]) Note: Responsible Observer: () #EOS 0.38 10\\^3/uL #EOS ELIZABETH ([facility]) Note: Responsible Observer: () #IG 0.03 10\\^3/uL #IG ELIZABETH ([facility]) Note: Responsible Observer: () #LYMPH 1.37 10\\^3/uL #LYMPH ELIZABETH ([facility]) Note: Responsible Observer: () #MONO 0.85 10\\^3/uL #MONO ELIZABETH ([facility]) Note: Responsible Observer: () #NEUT 6.85 10\\^3/uL #NEUT ELIZABETH ([facility]) Note: Responsible Observer: () #NRBC 0.00 10\\^3/uL #NRBC ELIZABETH ([facility]) Note: Responsible Observer: () %EOS 5 % %EOS ELIZABETH ([facility]) Note: Responsible Observer: (MOISES) %IG 0.3 % Above high normal %IG ELIZABETH ([facility]) Note: Responsible Observer: () %LYMPH 13 % Below low normal %LYMPH ELIZABETH ([facility]) Note: Responsible Observer: (CLD) %MONO 7 % %MONO ELIZABETH ([facility]) Note: Responsible Observer: (CLD) %NRBC 0.0 % %NRBC ELIZABETH ([facility]) Note: Responsible Observer: (MD) BAND 0 % BAND ELIZABETH ([facility]) Note: Responsible Observer: (CLD) BASO 0.5 % BASO ELIZABETH ([facility]) Note: Responsible Observer: () Blasts [#] in Body fluid by Manual count 0 % BLASTS ELIZABETH ([facility]) Note: Responsible Observer: (CLD) CBC W/MANUAL DIFF See Note CBC W/MANUAL DIFF ELIZABETH ([facility]) Note: CO RRECTED REPORT COMPLETE BLOOD COUNTResponsible Observer: (CLD) EOS 4.0 % EOS ELIZABETH ([facility]) Note: Responsible Observer: () Hematocrit [Pure volume fraction] of Blood by Automated count 41.4 % HEMATOCRIT ELIZABETH ([facility]) Note: Responsible Observer: () Hemoglobin [Mass/volume] in Mixed venous blood by Oximetry 14.0 g/d L HEMOGLOBIN ELIZABETH ([facility]) Note: Responsible Observer: () LYMPH 14.4 % Below low normal LYMPH ELIZABETH ([facility]) Note: Responsible Observer: () MANUAL DIFF SEE BELOW MANUAL DIFF ELIZABETH ([facility]) Note: Responsible Observer: (CLD) MCH 30.2 pg MCH ELIZABETH ([facility]) Note: Responsible Observer: (MD) MCHC 33.8 g/dL MCHC ELIZABETH ([facility]) Note: Responsible Observer: () MCV 89.2 fL MCV ELIZABETH ([facility]) Note: Responsible Observer: () MONO 8.9 % Above high normal MONO ELIZABETH ([facility]) Note: Responsible Observer: () MPV 8.6 fL MPV ELIZABETH ([facility]) Note: Responsible Observer: () NEUT 71.9 % NEUT [place] ([facility]) Note: Responsible Observer: () Platelets [#/area] in Blood by Microscopy high power field 300 10\\^ 3/uL PLATELETS ELIZABETH ([facility]) Note: Responsible Observer: () RBC 4.64 10\\^6/uL RBC ELIZABETH ([facility]) Note: Responsible Observer: () RBC MORPH NOT INDICATED RBC MORPH ELIZABETH ([facility]) Note: FOLLOWING RE SULTS REPORTED IN ERROR MANUAL DIFF NOTINDICATED <-- *Previously reported in error 05/07/20.0948.MD . . .M{ CORRECTResponsible Observer: () RDW 12.2 % RDW ELIZABETH ([facility]) Note: Responsible Observer: () SEGS 75 % SEGS [place] ([facility]) Note: Responsible Observer: (MOISES) WBC 9.5 10\\^3/uL WBC [place]AYARD ([facility]) Note: Responsible Observer: () ID Date Data Source [id number] 05/12/2020 06:51:00 AM [facility] Name Value Range Interpretation Code Description Data Shelly rce(s) Supporting Document(s) Procalcitonin [Mass/volume] in Serum or Plasma 0.04 ng/mL 0.00-0.08 [facility] A procalcitonin (PCT) level above 2.0 [...] ng/mL are obtained. ID Date Data Source [id number] 05/07/2020 10:37:00 AM [facility] Name Value Range Interpretation Code Description Data Shelly rce(s) Supporting Document(s) BNP 211 PG/ML 0 - 125 H [facility] ID Date Data Source [id number] 05/07/2020 10:37:00 AM [facility] Value Range Interpretation Code Description Data Shelly rce(s) Supporting Document(s) C reactive protein [Mass/volume] in Serum or Plasma by High sensitivity method 8.40 MG/L 1.00 - 3.00 H [facility] CDC/S HS-CRP CUT-OFF: RELATIVE RISK: <1.0 mg/L Low 1.0 - 3.0 mg/L Average >3.0 mg/L High Optimally, the average of HS-CRP results repeated two weeks apart should be used for risk assessment. ID Date Data Source [id number] 05/07/2020 10:27:00 AM [facility] Name Value Range Interpretation Code Description Data Shelly rce(s) Supporting Document(s) CBC W/MANUAL DIFF [facility] CORRECTE D REPORT COMPLETE BLOOD COUNT Leukocytes [#/volume] in Blood by Automated count 9.5 10^3/uL 4.2 - 1 1.0 [facility] Erythrocytes [#/volume] in Blood by Automated count 4.64 10^6/uL 4. 50 - 6.30 [facility] Hemoglobin [Mass/volume] in Blood 14.0 g/dL 14.0 - 16.0 [facility] Hematocrit [Volume Fraction] of Blood by Automated count 41.4 % 4 1.0 - 51.0 [facility] Erythrocyte mean corpuscular volume [Entitic volume] by Auto mated count 89.2 fL 80.0 - 94.0 [facility] Erythrocyte mean corpuscular hemoglobin [Entitic mass] by Automated count 30.2 pg 27.0 - 34.0 [facility] Erythrocyte mean corpuscular hemoglobin concentration [Mass/volume] by Automated count 33.8 g/dL 31.0 - 36.0 [facility] Erythrocyte distribution width [Ratio] by Automated count 12.2 % 11.5 - 14.8 [facility] Platelets [#/volume] in Blood by Automated count 300 10^3/uL 150 - 45 0 [facility] Platelet mean volume [Entitic volume] in Blood by Automated count 8.6 fL 7.4 - 10.4 [facility] Neutrophils/100 leukocytes in Blood by Automated count 71.9 % 37. 0 - 80.0 [facility] Lymphocytes/100 leukocytes in Blood by Manual count 14.4 % 25.0 - 40.0 L [facility] Monocytes/100 leukocytes in Blood by Automated count 8.9 % 3.0 - 8.0 H [facility] Eosinophils/100 leukocytes in Blood by Automated count 4.0 % 0.0 - 7.0 [facility] Basophils/100 leukocytes in Blood by Automated count 0.5 % 0.0 - 2.0 [facility] %IG 0.3 % 0.0 - 0.[address] %NRBC 0.0 % 0.0 - 0.0 [facility] al Neutrophils [#/volume] in Blood by Automated count 6.85 10^3/uL 2.00 - 6.90 [facility] Lymphocytes [#/volume] in Blood by Automated count 1.37 10^3/uL 0.60 - 3.40 [facility] Monocytes [#/volume] in Blood by Automated count 0.85 10^3/uL 0.00 - 0.90 [facility] Eosinophils [#/volume] in Blood by Automated count 0.38 10^3/uL 0.00 - 0.70 [facility] Basophils [#/volume] in Blood by Automated count 0.05 10^3/uL 0.00 - 0.20 [facility] #IG 0.03 10^3/uL 0.00 - 0.10 [facility] #NRBC 0.00 10^3/uL 0.00 - 0.00 [facility] MANUAL DIFF SEE BELOW [facility] ital Segmented neutrophils/100 leukocytes in Blood by Manual count 75 % 37 - 80 [facility] BAND 0 % 0 - 5 [facility] %LYMPH 13 % 25 - 40 L [facility] %MONO 7 % 3 - 8 [facility] %EOS 5 % 0 - [facility] Blasts/100 leukocytes in Blood by Manual count 0 % [facility] RBC MORPH NOT INDICATED [facility] FOLLOWING RESULTS REPORTED IN ERROR MANUAL DIFF { CORRECT ID Date Data Source [id number] 05/07/2020 10:26:00 AM [facility] Name Value Range Interpretation Code Description Data Shelly rce(s) Supporting Document(s) TROPONIN T <0.01 NG/ML 0.00 - 0.10 [facility] ospital TROPONIN T0.1 ng/ml Recommended as the c linical threshold value forTroponin T. ID Date Data Source [id number] 05/07/2020 10:06:00 AM [facility] Name Value Range Interpretation Code Description Data Shelly rce(s) Supporting Document(s) Erythrocyte sedimentation rate by Westergren method 18 mm/hr 0 - 20 [facility] SED RATE REENTER 18 [facility] ID Date Data Source [id number] 04/30/2020 08:37:00 AM [facility] ([facility] Name Value Range Interpretation Code Description Data Shelly rce(s) Supporting Document(s) Reported Physicians See Note Reported Physici ans ELIZABETH ([facility]) Note: Reported Physicians:Ordering: Beard e, Esha AAttending: IVNITA, JOCELYNConsulting: VINITA, JOCELYNCopy To: Vinita, Esha ID Date Data Source [id number] 04/30/2020 08:37:00 AM EST BAYARD ([facility]) Name Value Range Interpretation Code Description Data Shelly rce(s) Supporting Document(s) CPK 59 U/L CPK [place] ([facility]) Note: Responsible Observer: (TAD) ID Date Data Source [id number] 04/30/2020 08:37:00 AM EST [place] ([facility]) Name Value Range Interpretation Code Description Data Shelly rce(s) Supporting Document(s) Reported Physicians See Note Reported Physici ans [place]AYARD ([facility]) Note: Reported Physicians:Ordering: Beard e, Esha AAttending: VINITA, JOCELYNConsulting: VINITA, JOCELYNCopy To: Vinita, Esha ID Date Data Source [id number] 04/30/2020 08:37:00 AM EST B[place]ARD ([facility]) Name Value Range Interpretation Code Description Data Shelly rce(s) Supporting Document(s) Cholesterol [Moles/volume] in Pericardial fluid 162 MG/DL CHOLESTEROL [place] ([facility]) Note: Responsible Observer: (TAD) CVE PANEL See Note CVE PANEL [place] ([facility]) Note: LIPID PANELResponsible Observe r: (TAD) HDL 40 MG/DL HDL [place] ([facility]) Note: Responsible Observer: (TAD) Cholesterol in LDL [Mass/volume] in Serum or Plasma by Direct as say 91 mg/dL LDL [place] ([facility]) Note: Responsible Observer: (TAD) LDL/HDL 2.28 LDL/HDL [place] ([facility]) Note: CVE RISK CHOL/HD L LDL/HDLMEN: 1/2 AVERAGE 3.43 1.00 AVERAGE 4.97 3.55 2X AVERAGE 9.55 6.25 3X AVERAGE 23.99 7.99WOMEN: 1/2 AVERAGE 3.27 1.47 AVERAGE 4.44 3.22 2X AVERAGE 7.05 5.03 3X AVERAGE 11.04 6.14Responsible Observer: (TAD) RISK FACTOR 4.1 RISK FACTOR [place] ([facility]) Note: Responsible Observer: (TAD) TRIGLYCERIDES 198 MG/DL Above high normal [facility] Note: Responsible Observer: (TAD) ID Date Data Source [id number] 04/30/2020 08:37:00 AM EST [place] ([facility]) Name Value Range Interpretation Code Description Data Shelly rce(s) Supporting Document(s) Reported Physicians See Note Reported Physici ans [place]ARD ([facility]) Note: Reported Physicians:Ordering: Beard e, Esha AAttending: VINITA, JOCELYNConsulting: VINITA, JOCELYNCopy To: Vinita Esha ID Date Data Source [id number] 04/30/2020 08:37:00 AM EST [place] ([facility]) Name Value Range Interpretation Code Description Data Shelly rce(s) Supporting Document(s) URIC ACID 5.1 MG/DL URIC ACID [place] ([facility]) Note: Responsible Observer: (TAD) ID Date Data Source [id number] 04/30/2020 08:37:00 AM EST [place] ([facility]) Name Value Range Interpretation Code Description Data Shelly rce(s) Supporting Document(s) Reported Physicians See Note Reported [facility] ([facility]) Note: Reported Physicians:Ordering: Beard e, Esha AAttending: VINITA, JOCELYNConsulting: VINITA, JOCELYNCopy To: Vinita, Esha ID Date Data Source [id number] 04/30/2020 08:37:00 AM EST [place] ([facility]) Name Value Range Interpretation Code Description Data Shelly rce(s) Supporting Document(s) TSH 2.19 uIU/mL TSH [place] ([facility]) Note: Responsible Observer: (TAD) ID Date Data Source [id number] 04/30/2020 09:31:00 AM [facility] Name Value Range Interpretation Code Description Data Shelly rce(s) Supporting Document(s) Thyrotropin [Units/volume] in Serum or Plasma by Detec tion limit <= 0.05 mIU/L 2.19 uIU/mL 0.47 - 5.01 [facility] ID Date Data Source [id number] 04/30/2020 09:27:00 AM [facility] Name Value Range Interpretation Code Description Data Shelly rce(s) Supporting Document(s) Urate [Mass/volume] in Serum or Plasma 5.1 MG/DL 2.5 - 8.5 [facility] ID Date Data Source [id number] 04/30/2020 09:27:00 AM EST [facility] Name Value Range Interpretation Code Description Data Shelly rce(s) Supporting Document(s) Creatine kinase [Enzymatic activity/volume] in Serum or Plasma 5 9 U/L 30 - 170 [facility] ID Date Data Source [id number] 04/30/2020 09:27:00 AM [facility] Name Value Range Interpretation Code Description Data Shelly rce(s) Supporting Document(s) [facility] L[facility] Cholesterol [Mass/volume] in Serum or Plasma 162 MG/DL 131 - 200 [facility] Deprecated Triglyceride [Mass/volume] in Serum or Plasma 198 MG/DL 3 5 - 160 H [facility] HDL 40 MG/DL 29 - 86 [facility] Cholesterol in LDL [Mass/volume] in Serum or Plasma by Direc t assay 91 mg/dL 65 - 175 [facility] Cholesterol.total/Cholesterol in HDL [Mass Ratio] in Serum o r Plasma 4.1 3.4 - 4.9 [facility] LDL/HDL 2.28 1.00 - 3.55 [facility] ital CVE RISK CHOL/HDL LDL/HDLMEN: 1/2 AVERAGE 3.43 1.00 AVERAGE 4.97 3.55 2X AVERAGE 9.55 6.25 3X AVERAGE 23.99 7.99WOMEN: 1/2 AVERAGE 3.27 1.47 AVERAGE 4.44 3.22 2X AVERAGE 7.05 5.03 3X AVERAGE 11.04 6.14 ID Date Data Source [id number] 04/12/2020 09:42:00 AM EDT [facility] Name: TOLU RATLIFF : 1955 Age: 64 MR#: [id number] Admit Date: 04/11/20 Provider: Honorio De Souza [...] % (Auto) 68.7, Lymph % (Auto) 20.9, [place] % (Auto) 8.4, Eos % (Auto) 1.2, [...] earance Clear, Urine pH 5.0, Ur Specific [place] 1.010,Urine Protein Negative, Urine Ketones Negative, Urine [...] 94.0 H, Lymph % (Auto) 4.2 L, [place] % (Auto) 1.2 L, Eos % (Auto) [...] was 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 Pt was clinically and vitally [...] metformin 500 mg PO DAILY 04/11/20 [History] pxbmqhhqervn-ahcfcbtd-oxgfey 1 tab PO DAILY 04/11/20 [History] azithromycin [...] PRN (Reason: Shortness Of Breath) RF: 0 rxhqptcjubbr-nxmaalii-ozsmxk Tablet 1 tab PO DAILY RF: 0 [...] rce(s) Supporting Document(s) ID Date Data Source [id number] 04/12/2020 07:40:00 AM EDT [facility] @04/12/20 0729: MANUAL DIFF added. RFLXG = DIFF. @04/12/20 0729: MANUAL DIFF added. RFLXG = DIFF. Name Value Range Interpretation Code Description Data Shelly rce(s) Supporting Document(s) Leukocytes [#/volume] in Blood by Automated count 14.6 10*3/uL 4.45-10.71 Above high normal [facility] Erythrocytes [#/volume] in Blood by Automated count 4.85 10*6/uL 4.3- 6.1 N [facility] Hemoglobin [Moles/volume] in Blood 14.7 g/dL 13-18 N [facility] Hematocrit [Volume Fraction] of Blood by Automated count 44.4 % 4 2-52 N [facility] Erythrocyte mean corpuscular volume [Ent itic volume] in Cord blood by Automated count 91.5 fL 80-96 N [facility] ital Erythrocyte mean corpuscular hemoglobin [Entitic mass] by Automated count 30.3 pg 27-31 [facility] Erythrocyte mean corpuscular hemoglobin concentration [Mass/volume] in Cord blood 33.1 g/dL 33-37 N [facility] ital Erythrocyte distribution width [Entitic volume] by Automated count 13 % 11-15 N [facility] Platelets [#/volume] in Blood by Automated count 235 10*3/uL 130-472 N [facility] Platelet mean volume [Entitic volume] in Blood 9.5 fL 9.1-13.1 N [facility] Neutrophils/100 leukocytes in Blood by Automated count 94.0 % 41-77 Above high normal [facility] @PERFORM SLIDE SCAN IF NOT AGREE MAN DIF F@DOCUMENT SLIDE SCAN COMMENT Neutrophils [#/volume] in Blood by Automated count 13.8 U 1.7-7.6 Above high normal [facility] Lymphocytes/100 leukocytes in Blood by Automated count 4.2 % 14-46 Below low normal [facility] Lymphocytes [#/volume] in Blood by Automated count 0.6 U 0.6-4.6 N [facility] Monocytes/100 leukocytes in Blood by Automated count 1.2 % 4-12 Below low normal [facility] Monocytes [#/volume] in Blood by Automated count 0.2 U 0.2-1.2 N [facility] Eosinophils/100 leukocytes in Blood by Automated count 0.0 % 0-7 N [facility] Eosinophils [#/volume] in Blood by Automated count 0.0 U 0.0-0.5 N [facility] Basophils/100 leukocytes in Blood by Automated count 0.1 % 0.4-1.3 Below low normal [facility] Basophils [#/volume] in Blood by Automated count 0.0 U 0.0-0.2 N [facility] NUCLEATED RED BLOOD CELL 0 % [facility] NUCLEATED RED BLOOD CELL# 0 U [facility] Immature granulocytes [Presence] in Blood by Automated count 0-2 N [facility] Immature granulocytes [#/volume] in Blood by Automated count 0.1 U 0-0.1 N [facility] Manual Differential panel - Blood Manual Diff Added [facility] ID Date Data Source [id number] 04/12/2020 07:53:00 AM EDT [facility] @04/12/20728: MANUAL DIFF added. RFLXG = DIFF. @04/12/20728: MANUAL DIFF added. RFLXG = DIFF. Name Value Range Interpretation Code Description Data Shelly rce(s) Supporting Document(s) Urea nitrogen [Mass/volume] in Serum or Plasma 19 mg/dL 9-23 N [facility] Sodium [Moles/volume] in Serum or Plasma 138 mmol/L 132-146 N [facility] Potassium [Moles/volume] in Serum or Plasma 4.6 mmol/L 3.5-5.5 [facility] Chloride [Moles/volume] in Serum or Plasma 105 mmol/L 99-109 [facility] Carbon dioxide, total [Moles/volume] in Serum or Plasma 25 mmol/L 20 -31 N [facility] Anion gap in Serum or Plasma 13 mmol/L 8-16 [facility] Glucose [Mass/volume] in Serum or Plasma 212 mg/dL 74-106 Above high normal [facility] Creatinine 1.1 mg/dL 0.5-1.1 [facility] Glomerular filtration rate/1.73 sq M.pre dicted [Volume Rate/Area] in Serum or Plasma Greater Than 60 ABOVE 60 [facility] Alanine aminotransferase [Enzymatic acti vity/volume] in Serum or Plasma by With P-5'-P 30 U/L 10-49 [facility] ital Aspartate aminotransferase [Enzymatic ac tivity/volume] in Serum or Plasma by With P-5'-P 11 U/L 0-33 N [facility] pital Alkaline phosphatase [Enzymatic activity/volume] in Serum or Plasma 58 U/L 45-129 [facility] Calcium [Mass/volume] in Serum or Plasma 9.2 mg/dL 8.5-10.1 [facility] Bilirubin.total [Mass/volume] in Serum or Plasma 0.5 mg/dL 0.3-1.2 [facility] Albumin [Mass/volume] in Serum or Plasma by Bromocresol purple (BCP) dye binding method 3.4 g/dL 3.2-4.8 [facility] ital Protein [Mass/volume] in Serum or Plasma 7.1 g/dL 5.7-8.2 [facility] ID Date Data Source [id number] 04/12/2020 07:40:00 AM EDT [facility] @04/12/20728: MANUAL DIFF added. RFLXG = DIFF. @04/12/20728: MANUAL DIFF added. RFLXG = DIFF. Name Value Range Interpretation Code Description Data Shelly rce(s) Supporting Document(s) Cells counted [#] 100 [facility] Neutrophils [#/volume] in Blood by Manual count 97 % 41-77 Above high normal [facility] @Are you sure? Please be sure this value is correct YES Lymphocytes [#/volume] in Blood by Manual count 3 % 14-46 Below low normal [facility] Platelets [#/volume] in Blood by Estimate APPEARS NORMAL NORMAL [facility] Morphology [Interpretation] in Blood Narrative APPEARS NORMAL NORMAL [facility] ID Date Data Source [id number] 04/12/2020 07:53:00 AM EDT [facility] @04/12/20728: MANUAL DIFF added. RFLXG = DIFF. @04/12/20728: MANUAL DIFF added. RFLXG = DIFF. Name Value Range Interpretation Code Description Data Shelly rce(s) Supporting Document(s) Troponin I.cardiac [Mass/volume] in Serum or Plasma Less Than 0.015 0.00-0.09 N [facility] Less than 0.09 NG/ML Negative0.10 - 0.77 NG/ML High Risk0.78 NG/ML or Greater PositiveThe WHO defined the cutoff (definition for diagnosis of NH)for this method as 0.78 ng/ml. ID Date Data Source [id number] 04/12/2020 06:40:00 AM [facility]) Name Value Range Interpretation Code Description Data Shelly rce(s) Supporting Document(s) Reported Physicians See Note Reported Physici karoline [facility]ARD ([facility]) Note: Reported Physicians:Ordering: Pradeep Ferraraending: John De Souzaitting: Honorio De SouzaCopninfa To: Shruthi De SouzakramCopy To: Esha Talamantes ID Date Data Source [id number] 04/12/2020 06:40:[address] [facility] ([facility]) Name Value Range Interpretation Code Description Data Shelly rce(s) Supporting Document(s) Troponin I.cardiac [Mass/volume] in Serum or Plasma Less Than 0.015 Normal [facility] [facility]) Note: Less than 0.09 NG/ML Negative 0.10 - 0.77 NG/ML High Risk0.78 NG/ML or Greater PositiveThe WHO defined the cutoff (definition for diagnosis of NH)for this method as 0.78 ng/ml.Responsible Observer: Troponin I Troponin I 600.1101 (G) ID Date Data Source [id number] 04/12/2020 06:40:00 AM EDT ELIZABETH ([facility]) Name Value Range Interpretation Code Description Data Shelly rce(s) Supporting Document(s) MANUAL DIFF See Note MANUAL DIFF ELIZABETH ([facility]) Note: NOTES OTHER/NOT INTERPRETED Cells counted 100 Lymphocytes # Bld Manual 3 %Morphology Bld-Imp APPEARS NORMAL Neutrophils # Bld Manual 97 %Platelet # Bld Est APPEARS NORMAL @Are you sure? Please be sure this value is correct YES@04/12/20 0729: MANUAL DIFF added. RFLXG = DIFF.Responsible Observer: TOTAL CELLS TOTAL CELLS COUNTED 100.2105 (A) ID Date Data Source [id number] 04/12/2020 06:40:00 AM EDT ELIZABETH ([facility]) Name Value Range Interpretation Code Description Data Shelly rce(s) Supporting Document(s) Reported Physicians See Note Reported Physici ans ELIZABETH ([facility]) Note: Reported Physicians:Ordering: Pradeep Ferraraending: John De Souzaitting: Honorio De SouzaCopninfa To: Shruthi De SouzakramCopninfa To: Esha Talamantes ID Date Data Source [id number] 04/12/2020 06:40:00 AM EDT ELIZABETH ([facility]) Name Value Range Interpretation Code Description Data Shelly rce(s) Supporting Document(s) Alanine aminotransferase [Enzymatic acti vity/volume] in Serum or Plasma by With P-5'-P 30 enzyme_unit_per_liter Normal ALT SerPl w P-5' -P-cCnc ELIZABETH ([facility]) Note: Responsible Observer: SGPT/ALT SGP T/ALT 400.1750 (G) Calcium [Mass/volume] in Serum or Plasma 9.2 MilliGramsPerDeciLiter_[Mass_Concentration_Units] Normal Calcium [facility] ([facility]) Note: Responsible Observer: Calcium Calc ium 400.2500 (G) Bilirubin.total [Mass/volume] in Serum or Plasma 0.5 MilliGramsPerDeciLiter_[Mass_Concentration_Units] Normal Bilirub [facility] ([facility]) Note: Responsible Observer: T ABDIRAHMAN Total Bilirubin 400.2600 (G) Carbon dioxide, total [Moles/volume] in Serum or Plasm a 25 MilliMolesPerLiter_[Substance_Concentration_Units] Normal CO2 [facility] ([facility]) Note: Responsible Observer: CO2 Carbon D ioxide 400.1400 (G) Chloride [Moles/volume] in Serum or Plasma 105 MilliMolesPerLiter_[Substance_Concentration_Units] Normal Chloride [facility] ([facility]) Note: Responsible Observer: Chloride Chl oride 400.1250 (G) Glucose [Mass/volume] in Serum or Plasma 212 MilliGramsPerDeciLiter_[Mass_Concentration_Units] Above high normal Glucose [facility] ([facility]) Note: Responsible Observer: Glucose Gluc ose 400.1500 (G) Potassium [Moles/volume] in Serum or Plasma 4.6 MilliMolesPerLiter_[Substance_Concentration_Units] Normal Potassium [facility] ([facility]) Note: Responsible Observer: K Potassium 400.1210 (G) Protein [Mass/volume] in Serum or Plasma 7.1 GramsPerDeciLiter_[Mass_Concentration_Units] Normal Pro t [facility] ([facility]) Note: Responsible Observer: TP Total Pro tein 400.2800 (G) Sodium [Moles/volume] in Serum or Plasma 138 MilliMolesPerLiter_[Substance_Concentration_Units] Normal Sodium [facility] ([facility]) Note: Responsible Observer: Sodium Sodiu m 400.1100 (G) Aspartate aminotransferase [Enzymatic ac tivity/volume] in Serum or Plasma by With P-5'-P 11 enzyme_unit_per_liter Normal AST SerPl w P-[facility]' [facility] [place] ([facility]) Note: Responsible Observer: SGOT / AST S GOT / AST 400.1900 (G) Urea nitrogen [Mass/volume] in Serum or Plasma 19 MilliGramsPerDeciLiter_[Mass_Concentration_Units] Normal BUN [facility] ([facility]) Note: Responsible Observer: BUN Blood Ur ea Nitrogen 400.1000 (G) Anion gap in Serum or Plasma 13 MilliMolesPerLiter_[Substance_Concentration_Units] Normal Anion Gap [facility] [place] ([facility]) Note: Responsible Observer: ANION GAP AN ION GAP 400.1402 (E) Albumin [Mass/volume] in Serum or Plasma by Bromocresol purple (BCP) dye binding method 3.4 GramsPerDeciLiter_[Mass_Concentration_Units] Normal Albumin [facility] ([facility]) Note: Responsible Observer: Albumin [place] min 400.2700 (G) Alkaline phosphatase [Enzymatic activity/volume] in Se rum or Plasma 58 enzyme_unit_per_liter Normal ALP [facility] ( [facility]) Note: Responsible Observer: ALP Alkaline Phosphatase 400.2000 (G) Glomerular filtration rate/1.73 sq M.pre dicted [Volume Rate/Area] in Serum or Plasma Greater Than 60 GFR/BSA.pred SerPlBld-ArV Rat [place] ([facility]) Note: Responsible Observer: GFR Glomerul ar Filt Rate Calc 400.1605 (D) Creatinine [Moles/volume] in Vitreous fluid 1.1 MilliGramsPerDeciLiter_[Mass_Concentration_Units] Normal Creatinine [place] ([facility]) Note: Responsible Observer: Creatinine C reatinine 400.1600 (G) ID Date Data Source [id number] 04/12/2020 06:40:00 AM EDT [place] ([facility]) Name Value Range Interpretation Code Description Data Shelly rce(s) Supporting Document(s) Erythrocyte mean corpuscular volume [Ent itic volume] in Cord blood by Automated count 91.5 FemtoLiter_[SI_Volume_Units] Normal MCV Bld Co Auto [place] ([facility]) Note: Responsible Observer: MCV MCV 100 .0600 (B) Erythrocyte distribution width [Entitic volume] by Automated cou nt 13 percent Normal RDW RBC Auto [place] ([facility]) Note: Responsible Observer: RDW RDW 100 .0900 (B) Manual Differential panel - Blood Manual Diff Added Manual diff Bld [place] ([facility]) Note: Responsible Observer: CBC Manual D ifferential Added 100.1990 (B) Platelet mean volume [Entitic volume] in Blood 9.5 FemtoLite r_[SI_Volume_Units] Normal PMV Bld ELIZABETH ([facility]) Note: Responsible Observer: MPV MPV 100 .1100 (B) Immature granulocytes [Presence] in Blood by Automated count See No te Normal Imm Granulocytes Bld Ql Auto ELIZABETH ([facility]) Note: [id number] Ob fast food server: IG% IG% 100.1375 (B) Hematocrit [Volume Fraction] of Blood by Automated count 44.4 perce nt Normal Hct VFr Bld Auto ELIZABETH ([facility]) Note: Responsible Observer: HEMATOCRIT H EMATOCRIT 100.0500 (B) Erythrocyte mean corpuscular hemoglobin concentration [Mass/volume] in Cord blood 33.1 GramsPerDeciLiter_[Mass_Concentration_Units] Normal MCHC BldCo-nc [place] ([facility]) Note: Responsible Observer: MCHC MCHC 1 00.0800 (B) Immature granulocytes [#/volume] in Blood by Automated count 0.1 Un it Imm Granulocytes # Bld Auto ELIZABETH ([facility]) Note: Responsible Observer: IG# IG# 100 .1400 (B) Monocytes/100 leukocytes in Blood by Automated count 1.2 percent Below low normal Monocytes/leuk NFr Bld Auto [facility]ABETH ([facility]) Note: Responsible Observer: MONO % MONO % 100.1225 (B) Hemoglobin [Moles/volume] in Blood 14.7 GramsPerDeciLiter_[Mass_Concentration_Units] Normal Hgb Bld-sCnc ELIZABETH ([facility]) Note: Responsible Observer: HGB HEMOGLOB IN 100.0400 (B) Leukocytes [#/volume] in Blood by Automated count 14.6 ThousandsPerMicroLiter_[Number_Concentration_Units] Above hi gh normal WBC # Bld Auto ELIZABETH ([facility]) Note: Responsible Observer: WBC WHITE BL OOD COUNT 100.0100 (E) Basophils [#/volume] in Blood by Automated count 0.0 Unit Normal Basophils # Bld Auto ELIZABETH ([facility]) Note: Responsible Observer: BASO # BASO# 100.1350 (B) Basophils/100 leukocytes in Blood by Automated count 0.1 percent Below low normal Basophils/leuk NFr Bld Auto EL[facility]ABETH ([facility]) Note: Responsible Observer: BASO % BASO % 100.1325 (B) Eosinophils [#/volume] in Blood by Automated count 0.0 Unit Normal Eosinophil # Bld Auto ELIZABETH ([facility]) Note: Responsible Observer: EOS # EOS# 100.1300 (D) Eosinophils/100 leukocytes in Blood by Automated count 0.0 percent Normal Eosinophil/leuk NFr Bld Auto ELIZABETH ([facility]) Note: Responsible Observer: EOS % EOS % 100.1275 (B) Lymphocytes [#/volume] in Blood by Automated count 0.6 Unit Normal Lymphocytes # Bld Auto ELIZABETH ([facility]) Note: Responsible Observer: LYMPH # LYMP H# 100.1200 (B) Lymphocytes/100 leukocytes in Blood by Automated count 4.2 perce nt Below low normal Lymphocytes/leuk NFr Bld Auto ELIZABETH ([facility]) Note: Responsible Observer: LYMPH % LYMP H % 100.1175 (B) Monocytes [#/volume] in Blood by Automated count 0.2 Unit Normal Monocytes # Bld Auto ELIZABETH ([facility]) Note: Responsible Observer: MONO # MONO# 100.1250 (C) Neutrophils [#/volume] in Blood by Automated count 13.8 Unit Above high normal Neutrophils # Bld Auto ELIZABETH ([facility] ) Note: Responsible Observer: NEUT# NEUT# 100.1150 (B) Neutrophils/100 leukocytes in Blood by Automated count 94.0 perc ent Above high normal Neutrophils/leuk NFr Bld Auto ELIZABETH ([facility]) Note: @PERFORM SLIDE SCAN IF NOT AGREE M AN DIFF@DOCUMENT SLIDE SCAN COMMENTResponsible Observer: NEUT% NEUT% 100.1125 (B) Platelets [#/volume] in Blood by Automated count 235 ThousandsPerMicroLiter_[Number_Concentration_Units] Normal Platelet # Bld Auto ELIZABETH ([facility]) Note: Responsible Observer: PLATELET COU NT PLATELET COUNT 100.1000 (D) Erythrocyte mean corpuscular hemoglobin [Entitic mass] by Automated count 30.3 PicoGram_[SI_Mass_Units] Normal MCH RBC Qn Auto [place] ([facility]) Note: Responsible Observer: MCH MCH 100 .0700 (B) Erythrocytes [#/volume] in Blood by Automated count 4. 85 MillionsPerMicroLiter_[Number_Concentration_Units] Normal RBC # Bld Auto ELIZABETH ([facility]) Note: Responsible Observer: RBC Red Bloo d Count 100.0300 (B) NUCLEATED RED BLOOD CELL# 0 Unit NUCLEATED RED BLOOD CELL# ELIZABETH ([facility]) Note: Responsible Observer: NRBC# NUCLEA SABRINA RBC 100.1362 (A) NUCLEATED RED BLOOD CELL 0 percent NUCLEATED R ED BLOOD CELL ELIZABETH ([facility]) Note: Responsible Observer: NRBC% NRBC% 100.1360 (B) Notes [TIMP] See Note NOTES ELIZABETH ([facility]) Note: @04/12/20 0729: MANUAL DIFF added. RFLXG = DIFF. ID Date Data Source [id number] 04/12/2020 12:34:00 AM EDT [facility] @ RYAN DATE was changed from 04/12/20 to 04/11/20@ nereida ALY. Old specimen was [id number]. Name Value Range Interpretation Code Description Data Shelly rce(s) Supporting Document(s) Troponin I.cardiac [Mass/volume] in Serum or Plasma Less Than 0.015 0.00-0.09 [facility] Less than 0.09 NG/ML Negative0.10 - 0.77 NG/ML High Risk0.78 NG/ML or Greater PositiveThe WHO defined the cutoff (definition for diagnosis of NH)for this method as 0.78 ng/ml. ID Date Data Source [id number] [facility] 1840: 4hr Lactic Acid added. R FLXG = RFX LACTIC. Name Value Range Interpretation Code Description Data Shelly rce(s) Supporting Document(s) Lactate [Mass/volume] in Serum or Plasma 1.7 mmol/L 0.5-2.2 N [facility] A HIGH RESULT ON THIS 4HR LACTIC ACID WI LL NOT REFLEXANOTHER - YOU MUST ORDER ONE IF YOU WANT IT REPEATED ID Date Data Source [id number] 04/11/2020 10:10:00 PM EDT [place] ([facility]) Name Value Range Interpretation Code Description Data Shelly rce(s) Supporting Document(s) Reported Physicians See Note Reported Israel ONOFREWAY ([facility]) Note: Reported Physicians:Ordering: Kian ArguelloAttending: Jeremiah, VikramAdmitting: Jeremiah, VikramCopy To: Esha Talamantes ID Date Data Source [id number] 04/11/2020 10:10:00 PM EDT [place] ([facility]) Name Value Range Interpretation Code Description Data Shelly rce(s) Supporting Document(s) Lactate [Mass/volume] in Serum or Plasma 1.7 MilliMolesPerLiter_[Substance_Concentration_Units] Normal [facility]) Note: A HIGH RESULT ON THIS 4HR LACTIC A PIPO WILL NOT REFLEXANOTHER - YOU MUST ORDER ONE IF YOU WANT IT REPEATEDResponsible Observer: 4HR LACTIC RPT 4HR LACTIC ACID 400.2840 (G) Notes [TIMP] See Note MISTY JOHNSON ([facility]) Note: @04/11/20 1840: 4hr Lactic Acid ad ded. RFLXG = RFX LACTIC. ID Date Data Source [id number] 04/11/2020 10:10:00 PM EDT [place] ([facility]) Name Value Range Interpretation Code Description Data Shelly rce(s) Supporting Document(s) Reported Physicians See Note Reported Israel ramey [place] ([facility]) Note: Reported Physicians:Ordering: Marly Ferrarattending: Jeremiah, VikramAdmitting: Jeremiah, VikramCopy To: Jeremiah, VikramCopy To: Esha Talamantes ID Date Data Source [id number] 04/11/2020 10:10:00 PM EDT [place] ([facility]) Name Value Range Interpretation Code Description Data Shelly rce(s) Supporting Document(s) Troponin I.cardiac [Mass/volume] in Serum or Plasma Less Than 0.015 Normal Troponin I [facility] ([facility]) Note: Less than 0.09 NG/ML Negative 0.10 - 0.77 NG/ML High Risk0.78 NG/ML or Greater PositiveThe WHO defined the cutoff (definition for diagnosis of NH)for this method as 0.78 ng/ml.Responsible Observer: Troponin I Troponin I 600.1101 (G) Notes [TIMP] See Note NOTES ELIZABETH ([facility]) Note: @ RYAN DATE was changed from 04/12 to 04/11/20@ by SHEEBA. Old specimen was [id number]. ID Date Data Source [id number] 04/11/2020 10:05:00 PM EDT [facility] [place] COVID-19 IS AN ISOTHERMAL NA A TECHNOLOGYNORMAL VALUE IS "SARS-COV-2 COVID 19 NOT DETECTED"False negative results may occur if a specimen is improperlycollected,transported or handled.False negative results may also occur if amplicationinhibitors are present in the specimen or if inadequatelevels of viruses are present in the specimen.As with any molecular test, if the virus mutates in [facility] [place], Covid-19 may not be detected [...] rce(s) Supporting Document(s) ID Date Data Source [id number] 04/11/2020 09:30:00 PM EDT [place] ([facility]) Name Value Range Interpretation Code Description Data Shelly rce(s) Supporting Document(s) Reported Physicians See Note Reported Physici ans [place] ([facility]) Note: Reported Physicians:Ordering: Ember Arguelloending: John De Souzaitting: Pete De Souza To: Esha Talamantes ID Date Data Source [id number] 04/11/2020 09:30:00 PM EDT [place] ([facility]) Name Value Range Interpretation Code Description Data Shelly rce(s) Supporting Document(s) TOBAR COVID-19 SCHOOL See Note TOBAR COVID- 19 SCHOOL [place] ([facility]) Note: TOBAR COVID-19 IS AN ISOTHER MAL KRISTEN TECHNOLOGYNORMAL VALUE IS "SARS-COV-2 COVID 19 NOT DETECTED"False negative results may occur if a specimen is improperlycollected,transported or handled.False negative results may also occur if amplicationinhibitors are present in the specimen or if inadequatelevels of viruses are present in the specimen.As with any molecular test, if the virus mutates in [facility] [place], Covid-19 may not be detected or may bedetected less predictably.ID NOW COVID-19 is intended for testing a swab directlywithout elution in viral transport media as dilution willresult in decreased detection of low positive samples thatare near the limit of detection of the test.SWAB SAMPLES ELUTED IN VTM ARE NOT APPROPRIATE FOR USE INTHIS TEST.NOSNo Organisms [id number] Organisms Detected ID Date Data Source [id number] 04/11/2020 09:17:00 PM EDT [facility] Name: TOLU RATLIFF : 1955 Age: 64 MR#: [id number] Admit Date: 04/11/20 Provider: Leonardo Alonso Room [...] 30 years old and [facility] in [place]. He reported being replaced before on anticoagulation [...] drug use. Family History: Father due to NH at age 7979 year old, he had [...] mg PO DAILY 04/11/20 04/11/20 04/11/20 History shakrxznxwvc-fvjuiets-uwypla 1 tab PO DAILY 04/11/20 04/11/20 04/11/20 [...] % (Auto) 68.7, Lymph % (Auto) 20.9, [place] % (Auto) 8.4, Eos % (Auto) 1.2, [...] Appearance Clear, Urine pH 5.0, Ur Specific [place] 1.010,Urine Protein Negative, Urine Ketones Negative, Urine [...] The patient needs to follow up with numberer and wirer as regard to his DM that might [...] Souza MD 04/12/20712 D: ALBIB 04/11/202116 T: EZEQUIEL 04/11/202116 CC: Name Value Range Interpretation Code Description Data Shelly rce(s) Supporting Document(s) ID Date Data Source [id number] 04/11/2020 08:56:00 PM EDT [facility] [address] [place] [address] [phone] NAME SEX PT STATUS ACCOUNT NUMBER TOLU RATLIFF [facility] ER [id number] ORDERING PHYSICIAN LOCATION MEDICAL RECORD NO. Scott Mei MD ER [id number] ATTENDING PHYSICIAN DATE OF DATE OF EXAM/TIME [...] Rohit Kay MD on 04/11/202055 Signed By Rhoit Kay MD on 04/11/202055 Date Time CC: Esha Talamantes M.D.; Rohit Kay MD Techn: SNYDU Trans Dt/Tm: Trans by: DT Prt Dt/Tm: [id number]: Total DLP = 407.00 mGy-cm 0024-7919: Total Radiation Dose = 2.4013 mSv Lifetime Dose: 4.5186 mSv Name Value Range Interpretation Code Description Data Shelly rce(s) Supporting Document(s) ID Date Data Source [id number] 04/11/2020 08:08:00 PM EDT [facility] Reason for ordering culture: Abnormal fi ndings UAMethod of Collection:: Voided Name Value Range Interpretation Code Description Data Shelly rce(s) Supporting Document(s) Color of Urine [facility] Appearance of Urine CLEAR [facility] pH of Urine by Test strip 5.0 5-8 [facility] Specific gravity of Urine by Refractometry 1.010 1.005-1.030 [facility] Leukocyte esterase [Presence] in Urine by Test strip NEGAT ELVIA [facility] Nitrite [Presence] in Urine by Test strip NEGATIVE [facility] Protein [Presence] in Urine by Test strip NEGATIVE [facility] Glucose [Mass/volume] in Urine by Automated test strip NEGATIVE NEG ATIVE [facility] Ketones [Presence] in Urine by Test strip NEGATIVE [facility] Urobilinogen [Presence] in Urine 0.2-1 EU/dl [facility] Bilirubin.total [Presence] in Urine by Automated test strip NEGATIVE [facility] Erythrocytes [#/volume] in Urine by Test strip NEGATIVE NEGATIVE [facility] URINE MICROSCOPIC? (CIF) NO [facility] ID Date Data Source [id number] 04/11/2020 07:59:00 PM EDT [place] ([facility]) Name Value Range Interpretation Code Description Data Shelly rce(s) Supporting Document(s) Reported Physicians See Note Reported Physici ans [place] ([facility]) Note: Reported Physicians:Ordering: Kian ArguelloAttending: Talita Cannon To: Esha Talamantes ID Date Data Source [id number] 04/11/2020 07:59:00 PM EDT [place] ([facility]) Name Value Range Interpretation Code Description Data Shelly rce(s) Supporting Document(s) Urobilinogen [Presence] in Urine See Note Uro bilinogen Ur Ql LEIZABETH ([facility]) Note: 0.2 EU/dl0.2 EU/[id number] E U/dlResponsible Observer: UROBILINOGEN UROBILINOGEN 300.4500 (C) Erythrocytes [#/volume] in Urine by Test strip NEGATIVE RBC # Ur Strip ELIZABETH ([facility]) Note: Responsible Observer: BLOOD BLOOD 300.4652 (C) Protein [Presence] in Urine by Test strip See Note Prot Ur Ql Strip [facility]IZABETH ([facility]) Note: [id number] EResponsible Observer: PROTEIN PROTEIN 300.3750 (C) Ketones [Presence] in Urine by Test strip See Note Ketones Ur Ql Strip [facility]IZ[facility]ETH ([facility]) Note: [id number] EResponsible Observer: KETONE KETONE 300.3900 (C) Bilirubin.total [Presence] in Urine by Automated test strip See Not e Bilirub Ur Ql Strip.auto [facility]IZABETH ([facility]) Note: [id number] EResponsible Observer: BILIRUBIN BILIRUBIN 300.4550 (C) Glucose [Mass/volume] in Urine by Automated test strip NEGATIVE Glucose Ur Strip.auto-mCnc [place] ([facility]) Note: Responsible Observer: GLUCOSE GLUC OSE 300.3850 (C) Appearance of Urine See Note Appearance [facility] Note: CLEARCLEARLCLEARResponsible Observ er: APPEARANCE APPEARANCE 300.3400 (A) Color of Urine See Note Color Ur [facility]IZABETH ([facility]) Note: YELLOWYELLOWLYELLOWResponsible Obs erver: COLOR COLOR 300.3330 (A) Leukocyte esterase [Presence] in Urine by Test strip See Note Leukocyte esterase Ur Ql Strip [facility]IZABETH ([facility]) Note: [id number] EResponsible Observer: LEUKOCYTES LEUKOCYTES 300.3576 (C) Nitrite [Presence] in Urine by Test strip See Note Nitrite Ur Ql Strip [facility]IZ[facility]ETH ([facility]) Note: [id number] EResponsible Observer: NITRITE NITRITE 300.3652 (B) pH of Urine by Test strip 5.0 pH Ur Stri p [place] ([facility]) Note: Responsible Observer: PH PH 300.3 450 (C) Specific gravity of Urine by Refractometry 1.010 Sp Gr Ur Refractometry [place] ([facility]) Note: Responsible Observer: SP GRAVITY U RINE SPECIFIC GRAVITY-MAN 300.3475 (C) URINE MICROSCOPIC? (CIF) NO URINE MICRO SCOPIC? (CIF) [place] ([facility]) Note: Responsible Observer: UA URINE KEENAN ROSCOPIC PENDING 300.4665 (D) Notes [TIMP] See Note NOTES [place] ([facility]) Note: Reason for ordering culture: Abnor mal findings UAMethod of Collection:: Voided ID Date Data Source [id number] 04/11/2020 07:16:00 PM EDT [facility] [address], [place] [id number] [phone] NAME SEX PT STATUS ACCOUNT NUMBER Tolu Ratliff AMEYA ER [id number] ORDERING PHYSICIAN LOCATION MEDICAL RECORD NO. Kian Cannon MD ER [id number] ATTENDING PHYSICIAN DATE OF DATE OF EXAM/TIME [...] Trans Dt/Tm: Trans by: DT Prt Dt/Tm: [id number]: Total DLP = 683.00 mGy-cm 3842-6720: Total Radiation Dose = 2.1173 mSv Lifetime Dose: 2.1173 mSv Name Value Range Interpretation Code Description Data Shelly rce(s) Supporting Document(s) ID Date Data Source [id number] 04/11/2020 06:34:00 PM EDT [facility] [address] [place] [address] [phone] NAME SEX PT STATUS ACCOUNT NUMBER Tolu Ratliff ER [id number] ORDERING PHYSICIAN LOCATION MEDICAL RECORD NO. Kian Cannon MD ER [id number] ATTENDING PHYSICIAN DATE OF DATE OF EXAM/TIME [...] Trans Dt/Tm: Trans by: DT Prt Dt/Tm: 7885-1772: Total DLP = 0.00 mGy-cm Fluoroscopy Time (in secs): Name Value Range Interpretation Code Description Data Shelly rce(s) Supporting Document(s) ID Date Data Source [id number] 04/11/2020 06:40[facility]: Lab may order repe at test if initial test elevatedPhysician If elevated, reflex second test in 4-6 hrs Name Value Range Interpretation Code Description Data Shelly rce(s) Supporting Document(s) Lactic w Rfx (if elevated) 2.1 mmol/L 0.5-2.2 [facility] Called to RYAN @ 1835 by DanyellTo eber. Results readback. ID Date Data Source [id number] 04/16/2020 05:57:00 PM EDT [facility] Special Instructions: Lab may order repe at test if initial test elevatedPhysician If elevated, reflex second test in 4-6 hrs Name Value Range Interpretation Code Description Data Shelly rce(s) Supporting Document(s) Bacteria identified in Blood by Culture [facility] NO GROWTH AFTER 5 DAYS ID Date Data Source [id number] 04/11/2020 11:28:00 PM [facility] Special Instructions: from the last lab sample, otherwise, from the next Name Value Range Interpretation Code Description Data Shelly rce(s) Supporting Document(s) Erythrocyte sedimentation rate by Westergren method 13 mm/hr 0-20 N [facility] @Reenter manual test result: 13@by Tori Schultz at 04/11/20 2328. ID Date Data Source [id number] 04/11/2020 06:00:00 PM EDT [facility] Name Value Range Interpretation Code Description Data Shelly rce(s) Supporting Document(s) Leukocytes [#/volume] in Blood by Automated count 10.4 10*3/uL 4.45-1 0.71 N [facility] Erythrocytes [#/volume] in Blood by Automated count 5.03 10*6/uL 4.3- 6.1 N [facility] Hemoglobin [Moles/volume] in Blood 15.5 g/dL 13-18 N [facility] Hematocrit [Volume Fraction] of Blood by Automated count 46.2 % 4 2-52 N [facility] Erythrocyte mean corpuscular volume [Ent itic volume] in Cord blood by Automated count 91.8 fL 80-96 N [facility] ital Erythrocyte mean corpuscular hemoglobin [Entitic mass] by Automated count 30.8 pg 27-31 N [facility] l Erythrocyte mean corpuscular hemoglobin concentration [Mass/volume] in Cord blood 33.5 g/dL 33-37 N [facility] ital Erythrocyte distribution width [Entitic volume] by Automated count 12 % 11-15 N [facility] Platelets [#/volume] in Blood by Automated count 243 10*3/uL 130-472 N [facility] Platelet mean volume [Entitic volume] in Blood 9.3 fL 9.1-13.1 N [facility] Neutrophils/100 leukocytes in Blood by Automated count 68.7 % 41- 77 N [facility] Neutrophils [#/volume] in Blood by Automated count 7.2 U 1.7-7.6 N [facility] Lymphocytes/100 leukocytes in Blood by Automated count 20.9 % 14- 46 N [facility] Lymphocytes [#/volume] in Blood by Automated count 2.2 U 0.6-4.6 N [facility] Monocytes/100 leukocytes in Blood by Automated count 8.4 % 4-12 N [facility] Monocytes [#/volume] in Blood by Automated count 0.9 U 0.2-1.2 N [facility] Eosinophils/100 leukocytes in Blood by Automated count 1.2 % 0-7 N [facility] Eosinophils [#/volume] in Blood by Automated count 0.1 U 0.0-0.5 N [facility] Basophils/100 leukocytes in Blood by Automated count 0.5 % 0.4-1 .3 N [facility] Basophils [#/volume] in Blood by Automated count 0.1 U 0.0-0.2 N [facility] NUCLEATED RED BLOOD CELL 0 % [facility] NUCLEATED RED BLOOD CELL# 0 U [facility] Immature granulocytes [Presence] in Blood by Automated count 0-2 N [facility] Immature granulocytes [#/volume] in Blood by Automated count 0.0 U 0-0.1 N [facility] Manual Differential panel - Blood NO [facility] ID Date Data Source [id number] 04/11/2020 06:25:00 PM EDT [facility] Name Value Range Interpretation Code Description Data Shelly rce(s) Supporting Document(s) Urea nitrogen [Mass/volume] in Serum or Plasma 17 mg/dL 9-23 N [facility] Sodium [Moles/volume] in Serum or Plasma 138 mmol/L 132-146 [facility] Potassium [Moles/volume] in Serum or Plasma 3.9 mmol/L 3.5-5.5 [facility] Chloride [Moles/volume] in Serum or Plasma 103 mmol/L 99-109 [facility] Carbon dioxide, total [Moles/volume] in Serum or Plasma 26 mmol/L 20 -31 N [facility] Anion gap in Serum or Plasma 13 mmol/L 8-16 N [facility] Glucose [Mass/volume] in Serum or Plasma 150 mg/dL 74-106 Above high normal [facility] Creatinine 1.0 mg/dL 0.5-1.1 [facility] Glomerular filtration rate/1.73 sq M.pre dicted [Volume Rate/Area] in Serum or Plasma Greater Than 60 ABOVE 60 [facility] Alanine aminotransferase [Enzymatic acti vity/volume] in Serum or Plasma by With P-5'-P 33 U/L 10-49 N [facility] ital Aspartate aminotransferase [Enzymatic ac tivity/volume] in Serum or Plasma by With P-5'-P 15 U/L 0-33 N [facility] pital Alkaline phosphatase [Enzymatic activity/volume] in Serum or Plasma 60 U/L 45-129 N [facility] Calcium [Mass/volume] in Serum or Plasma 9.4 mg/dL 8.5-10.1 N [facility] Bilirubin.total [Mass/volume] in Serum or Plasma 0.8 mg/dL 0.3-1.2 N [facility] Albumin [Mass/volume] in Serum or Plasma by Bromocresol purple (BCP) dye binding method 3.8 g/dL 3.2-4.8 N [facility] ital Protein [Mass/volume] in Serum or Plasma 8.0 g/dL 5.7-8.2 N [facility] ID Date Data Source [id number] 04/11/2020 06:25:00 PM EDT [facility] Name Value Range Interpretation Code Description Data Shelly rce(s) Supporting Document(s) Troponin I.cardiac [Mass/volume] in Serum or Plasma Less Than 0.015 0.00-0.09 [facility] Less than 0.09 NG/ML Negative0.10 - 0.77 NG/ML High Risk0.78 NG/ML or Greater PositiveThe WHO defined the cutoff (definition for diagnosis of NH)for this method as 0.78 ng/ml. ID Date Data Source [id number] 04/11/2020 06:24:00 PM T [facility] Name Value Range Interpretation Code Description Data Shelly rce(s) Supporting Document(s) Magnesium [Mass/volume] in Serum or Plasma 2.3 mg/dL 1.3-2.7 N [facility] ID Date Data Source [id number] 04/11/2020 06:23:00 PM EDT [facility] Name Value Range Interpretation Code Description Data Shelly rce(s) Supporting Document(s) Creatine kinase [Enzymatic activity/volume] in Serum or Plasma 158 U/L 33-211 N [facility] Creatine kinase.MB [Enzymatic activity/volume] in Serum or P lasma 3.8 ng/mL 0.0-5.0 N [facility] Chemistry studies (set) 2.4 % [facility] ID Date Data Source [id number] 04/11/2020 05:55:00 PM EDT [facility] ([facility]) Name Value Range Interpretation Code Description Data Shelly rce(s) Supporting Document(s) Reported Physicians See Note Reported Physici ans [facility] ([facility]) Note: Reported Physicians:Ordering: Kian ArguelloAttending: Jeremiah, VikramAdmitting: Jeremiah, VikramCopy To: Esha Talamantes ID Date Data Source [id number] 04/11/2020 05:55:00 PM EDT [facility] ([facility]) Name Value Range Interpretation Code Description Data Shelly rce(s) Supporting Document(s) Bacteria identified in Blood by Culture See Note Bacteria Bld Cult [facility] ([facility]) Note: NG5DNo growth.[id number] GROWTH AFTE R 5 DAYS ID Date Data Source [id number] 04/11/2020 05:55:00 PM EDT [facility]) Name Value Range Interpretation Code Description Data Shelly rce(s) Supporting Document(s) Bacteria identified in Blood by Culture See Note Bacteria Bld Cult [facility] ([facility]) Note: NG5DNo growth.[id number] GROWTH AFTE R 5 DAYS ID Date Data Source [id number] 04/11/2020 05:55:00 PM EDT [facility] ([facility]) Name Value Range Interpretation Code Description Data Shelly rce(s) Supporting Document(s) Lactic w Rfx (if elevated) 2.1 MilliMolesPerLiter_[Substance_Concentration_Units] Normal Lactic w Rfx (if elevated) [facility]) Note: Called to RYAN @ 6265 by Tori Kenny. Results readback.Responsible Observer: Lactic Acid Lactic Acid 400.2831 (G) Notes [TIMP] See Note NOTES [facility] ([facility]) Note: Special Instructions: Lab may orde r repeat test if initial test elevatedPhysician If elevated, reflex second test in 4-6 hrs ID Date Data Source [id number] 04/11/2020 05:55:00 PM EDT [facility] ([facility]) Name Value Range Interpretation Code Description Data Shelly rce(s) Supporting Document(s) Reported Physicians See Note Reported Physici ans [facility] ([facility]) Note: Reported Physicians:Ordering: Ember Arguelloending: Talita Cannon To: Esha Talamantes ID Date Data Source [id number] 04/11/2020 05:55:00 PM EDT [facility] ([facility]) Name Value Range Interpretation Code Description Data Shelly rce(s) Supporting Document(s) Alanine aminotransferase [Enzymatic acti vity/volume] in Serum or Plasma by With P-5'-P 33 enzyme_unit_per_liter Normal ALT SerPl w P-5' -P-cCnc [facility] ([facility]) Note: Responsible Observer: SGPT/ALT SGP T/ALT 400.1750 (G) Calcium [Mass/volume] in Serum or Plasma 9.4 MilliGramsPerDeciLiter_[Mass_Concentration_Units] Normal Calcium [facility] ([facility]) Note: Responsible Observer: Calcium Calc ium 400.2500 (G) Bilirubin.total [Mass/volume] in Serum or Plasma 0.8 MilliGramsPerDeciLiter_[Mass_Concentration_Units] Normal Bilirub [facility] ([facility]) Note: Responsible Observer: T ABDIRAHMAN Total Bilirubin 400.2600 (G) Carbon dioxide, total [Moles/volume] in Serum or Plasm a 26 MilliMolesPerLiter_[Substance_Concentration_Units] Normal CO2 [facility] ([facility]) Note: Responsible Observer: CO2 Carbon D ioxide 400.1400 (G) Chloride [Moles/volume] in Serum or Plasma 103 MilliMolesPerLiter_[Substance_Concentration_Units] Normal Chloride [facility] ([facility]) Note: Responsible Observer: Chloride Chl oride 400.1250 (G) Glucose [Mass/volume] in Serum or Plasma 150 MilliGramsPerDeciLiter_[Mass_Concentration_Units] Above high normal Glucose [facility] ([facility]) Note: Responsible Observer: Glucose Gluc ose 400.1500 (G) Potassium [Moles/volume] in Serum or Plasma 3.9 MilliMolesPerLiter_[Substance_Concentration_Units] Normal Potassium [facility] ([facility]) Note: Responsible Observer: K Potassium 400.1210 (G) Protein [Mass/volume] in Serum or Plasma 8.0 GramsPerDeciLiter_[Mass_Concentration_Units] Normal Pro t [facility] ([facility]) Note: Responsible Observer: TP Total Pro tein 400.2800 (G) Sodium [Moles/volume] in Serum or Plasma 138 MilliMolesPerLiter_[Substance_Concentration_Units] Normal Sodium [facility] ([facility]) Note: Responsible Observer: Sodium Sodiu m 400.1100 (G) Aspartate aminotransferase [Enzymatic ac tivity/volume] in Serum or Plasma by With P-5'-P 15 enzyme_unit_per_liter Normal AST SerPl w P-5' -P-[facility] ([facility]) Note: Responsible Observer: SGOT / AST S GOT / AST 400.1900 (G) Urea nitrogen [Mass/volume] in Serum or Plasma 17 MilliGramsPerDeciLiter_[Mass_Concentration_Units] Normal BUN [facility] ([facility]) Note: Responsible Observer: BUN Blood Ur ea Nitrogen 400.1000 (G) Anion gap in Serum or Plasma 13 MilliMolesPerLiter_[Substance_Concentration_Units] Normal Anion Gap [facility] ([facility]) Note: Responsible Observer: ANION GAP AN ION GAP 400.1402 (E) Albumin [Mass/volume] in Serum or Plasma by Bromocresol purple (BCP) dye binding method 3.8 GramsPerDeciLiter_[Mass_Concentration_Units] Normal Albumin [facility] ([facility]) Note: Responsible Observer: Albumin [place] min 400.2700 (G) Alkaline phosphatase [Enzymatic activity/volume] in Se rum or Plasma 60 enzyme_unit_per_liter Normal ALP [facility] ( [facility]) Note: Responsible Observer: ALP Alkaline Phosphatase 400.2000 (G) Glomerular filtration rate/1.73 sq M.pre dicted [Volume Rate/Area] in Serum or Plasma Greater Than 60 GFR/BSA.pred SerPlBld-ArV Rat [facility] ([facility]) Note: Responsible Observer: GFR Glomerul ar Filt Rate Calc 400.1605 (D) Creatinine [Moles/volume] in Vitreous fluid 1.0 MilliGramsPerDeciLiter_[Mass_Concentration_Units] Normal Creatinine [facility] ([facility]) Note: Responsible Observer: Creatinine C reatinine 400.1600 (G) ID Date Data Source [id number] 04/11/2020 05:55:00 PM EDT [facility] ([facility]) Name Value Range Interpretation Code Description Data Shelly rce(s) Supporting Document(s) Erythrocyte mean corpuscular volume [Ent itic volume] in Cord blood by Automated count 91.8 FemtoLiter_[SI_Volume_Units] Normal MCV Bld Co Auto [facility] ([facility]) Note: Responsible Observer: MCV MCV 100 .0600 (B) Erythrocyte distribution width [Entitic volume] by Automated cou nt 12 percent Normal RDW RBC Auto [facility] ([facility]) Note: Responsible Observer: RDW RDW 100 .0900 (B) Manual Differential panel - Blood NO Ma nual diff Bld [facility] ([facility]) Note: Responsible Observer: CBC Manual D ifferential Added 100.1990 (B) Platelet mean volume [Entitic volume] in Blood 9.3 FemtoLite r_[SI_Volume_Units] Normal PMV Bld [facility] ([facility]) Note: Responsible Observer: MPV MPV 100 .1100 (B) Immature granulocytes [Presence] in Blood by Automated count See No te Normal Imm Granulocytes Bld Ql Auto [facility] ([facility]) Note: [id number] Ob fast food server: IG% IG% 100.1375 (B) Hematocrit [Volume Fraction] of Blood by Automated count 46.2 perce nt Normal Hct VFr Bld Auto [facility] ([facility]) Note: Responsible Observer: HEMATOCRIT H EMATOCRIT 100.0500 (B) Erythrocyte mean corpuscular hemoglobin concentration [Mass/volume] in Cord blood 33.5 GramsPerDeciLiter_[Mass_Concentration_Units] Normal MCHC BldCo-mCnc [facility] ([facility]) Note: Responsible Observer: MCHC MCHC 1 00.0800 (B) Immature granulocytes [#/volume] in Blood by Automated count 0.0 Un it Imm Granulocytes # Bld Auto [facility] ([facility]) Note: Responsible Observer: IG# IG# 100 .1400 (B) Monocytes/100 leukocytes in Blood by Automated count 8.4 percent Normal Monocytes/leuk NFr Bld Auto [facility] ([facility]) Note: Responsible Observer: MONO % MONO % 100.1225 (B) Hemoglobin [Moles/volume] in Blood 15.5 GramsPerDeciLiter_[Mass_Concentration_Units] Normal Hgb Bld-sCnc [facility] ([facility]) Note: Responsible Observer: HGB HEMOGLOB IN 100.0400 (B) Leukocytes [#/volume] in Blood by Automated count 10.4 ThousandsPerMicroLiter_[Number_Concentration_Units] Normal WBC # Bld Auto [facility] ([facility]) Note: Responsible Observer: WBC WHITE BL OOD COUNT 100.0100 (E) Basophils [#/volume] in Blood by Automated count 0.1 Unit Normal Basophils # Bld Auto [facility] ([facility]) Note: Responsible Observer: BASO # BASO# 100.1350 (B) Basophils/100 leukocytes in Blood by Automated count 0.5 percent Normal Basophils/leuk NFr Bld Auto [facility] ([facility]) Note: Responsible Observer: BASO % BASO % 100.1325 (B) Eosinophils [#/volume] in Blood by Automated count 0.1 Unit Normal Eosinophil # Bld Auto [facility] ([facility]) Note: Responsible Observer: EOS # EOS# 100.1300 (D) Eosinophils/100 leukocytes in Blood by Automated count 1.2 percent Normal Eosinophil/leuk NFr Bld Auto [facility] ([facility]) Note: Responsible Observer: EOS % EOS % 100.1275 (B) Lymphocytes [#/volume] in Blood by Automated count 2.2 Unit Normal Lymphocytes # Bld Auto [facility] ([facility]) Note: Responsible Observer: LYMPH # LYMP H# 100.1200 (B) Lymphocytes/100 leukocytes in Blood by Automated count 20.9 percent Normal Lymphocytes/leuk NFr Bld Auto [facility] ([facility]) Note: Responsible Observer: LYMPH % LYMP H % 100.1175 (B) Monocytes [#/volume] in Blood by Automated count 0.9 Unit Normal Monocytes # Bld Auto [facility] ([facility]) Note: Responsible Observer: MONO # MONO# 100.1250 (C) Neutrophils [#/volume] in Blood by Automated count 7.2 Unit Normal Neutrophils # Bld Auto [facility] ([facility]) Note: Responsible Observer: NEUT# NEUT# 100.1150 (B) Neutrophils/100 leukocytes in Blood by Automated count 68.7 percent Normal Neutrophils/leuk NFr d Auto [facility] ([facility]) Note: Responsible Observer: NEUT% NEUT% 100.1125 (B) Platelets [#/volume] in Blood by Automated count 243 ThousandsPerMicroLiter_[Number_Concentration_Units] Normal Platelet # Bld Auto [facility] ([facility]) Note: Responsible Observer: PLATELET COU NT PLATELET COUNT 100.1000 (D) Erythrocyte mean corpuscular hemoglobin [Entitic mass] by Automated count 30.8 PicoGram_[SI_Mass_Units] Normal MCH RBC Qn Auto [place] ([facility]) Note: Responsible Observer: MCH MCH 100 .0700 (B) Erythrocytes [#/volume] in Blood by Automated count 5. 03 MillionsPerMicroLiter_[Number_Concentration_Units] Normal RBC # Bld Auto [facility] ([facility]) Note: Responsible Observer: RBC Red Bloo d Count 100.0300 (B) NUCLEATED RED BLOOD CELL# 0 Unit NUCLEATED RED BLOOD CELL# [facility] ([facility]) Note: Responsible Observer: NRBC# NUCLEA SABRINA RBC 100.1362 (A) NUCLEATED RED BLOOD CELL 0 percent NUCLEATED R ED BLOOD CELL [facility] ([facility]) Note: Responsible Observer: NRBC% NRBC% 100.1360 (B) ID Date Data Source [id number] 04/11/2020 05:55:00 PM EDT [facility] ([facility]) Name Value Range Interpretation Code Description Data Shelly rce(s) Supporting Document(s) Reported Physicians See Note Reported Physici ans [facility] ([facility]) Note: Reported Physicians:Ordering: Kian ArguelloAttending: Talita Cannon To: Esha Talamantes ID Date Data Source [id number] 04/11/2020 05:55:00 PM EDT [facility] ([facility]) Name Value Range Interpretation Code Description Data Shelly rce(s) Supporting Document(s) Magnesium [Mass/volume] in Serum or Plasma 2.3 MilliGramsPerDeciLiter_[Mass_Concentration_Units] Normal Magnesium [facility] ([facility]) Note: Responsible Observer: Magnesium Ma gnesium 400.3300 (G) ID Date Data Source [id number] 04/11/2020 05:55:00 PM EDT [facility] ([facility]) Name Value Range Interpretation Code Description Data Shelly rce(s) Supporting Document(s) Reported Physicians See Note Reported Physici ans [facility] ([facility]) Note: Reported Physicians:Ordering: Marly Ferrarattending: Leia De Souzadmitting: Pete De Souza To: Ancelmo De SouzaamCopninfa To: Esha Talamantes ID Date Data Source [id number] 04/11/2020 05:55:00 PM EDT [facility] ([facility]) Name Value Range Interpretation Code Description Data Shelly rce(s) Supporting Document(s) Erythrocyte sedimentation rate by Westergren method 13 Normal [facility]) Note: @Reenter manual test result: 13@by Tori Child at 04/11/20 2328.Responsible Observer: SED RATE SED RATE 100.6400 (B) Notes [TIMP] See Note NOTES [facility] ([facility]) Note: Special Instructions: from the las t lab sample, otherwise, from the next ID Date Data Source [id number] 04/11/2020 05:55:00 PM EDT [facility] ([facility]) Name Value Range Interpretation Code Description Data Shelly rce(s) Supporting Document(s) Reported Physicians See Note [facility] Note: Reported Physicians:Ordering: Kian ArguelloAttending: Talita Cannon To: Esha Talamantes ID Date Data Source [id number] 04/11/2020 05:55:[address] [facility] ([facility]) Name Value Range Interpretation Code Description Data Shelly rce(s) Supporting Document(s) Chemistry studies (set) 2.4 percent Chemistry s [facility]) Note: Responsible Observer: CK RELATIVE % CK RELATIVE % 600.0055 (A) Creatine kinase [Enzymatic activity/volume] in Serum o r Plasma 158 enzyme_unit_per_liter Normal CK [facility]) Note: Responsible Observer: CK Creatine Kinase 400.9115 (G) Creatine kinase.MB [Enzymatic activity/volume] in Seru m or Plasma 3.8 NanoGramsPerMilliLiter_[Mass_Concentration_Units] Normal CK MB [facility]) Note: Responsible Observer: CKMB Creatin e Kinase MB 600.0050 (G) ID Date Data Source [id number] 04/11/2020 05:55:[address] [facility] ([facility]) Name Value Range Interpretation Code Description Data Shelly rce(s) Supporting Document(s) Reported Physicians See Note [facility] ([facility]) Note: Reported Physicians:Ordering: Kian ArguelloAttending: Talita Cannon To: Esha Talamantes ID Date Data Source [id number] 04/11/2020 05:55:[address] [facility] ([facility]) Name Value Range Interpretation Code Description Data Shelly rce(s) Supporting Document(s) Troponin I.cardiac [Mass/volume] in Serum or Plasma Less Than 0.015 Normal Troponin I [facility]) Note: Less than 0.09 NG/ML Negative 0.10 - 0.77 NG/ML High Risk0.78 NG/ML or Greater PositiveThe WHO defined the cutoff (definition for diagnosis of NH)for this method as 0.78 ng/ml.Responsible Observer: Troponin I Troponin I 600.1101 (G) ID Date Data Source [id number] 04/11/2020 05:40:00 PM EDT [facility] ED Physician Documentation NAME: TOLU RATLIFF : 1955 AGE: 64 MR#: [id number] SERVICE DATE: 04/11/[address]: Kian Cannon [...] History (Updated 04/11/20 @ 17:48 by Zulma Fuentes, DHEERAJ) Atrial fibrillation (Medical) I48.91 COPD (chronic obstructive pulmonary disease) (Medical) J44.9 High cholesterol (Medical) E78.00 Pre-diabetes (Medical) R73.03 Hx Recent Travel Nurse screening for coronavirus: Recent Travel outside the No country (where) Has patient experienced No coronavirus symptoms <Scott Mei MD - Last Filed: 04/11/20 21:10> Patient Medical History PMH/PSH from Triage: Medical History (Updated 10/24/20 @ 17:48 by Zulma Fuentes RN) Atrial [...] % (Auto) 68.7, Lymph % (Auto) 20.9, [place] % (Auto) 8.4, Eos % (Auto) 1.2, [...] Appearance Clear, Urine pH 5.0, Ur Specific [place] 1.010,Urine Protein Negative, Urine Ketones Negative, Urine [...] % (Auto) 68.7, Lymph % (Auto) 20.9, [place] % (Auto) 8.4, Eos % (Auto) 1.2, [...] Appearance Clear, Urine pH 5.0, Ur Specific [place] 1.010,Urine Protein Negative, Urine Ketones Negative, Urine [...] Mei MD> Scott Mei MD 04/11/202109 D: [facility] 04/11/201739 T: [facility] 04/11/201739 CC: Esha Talamantes M.D. Name Value Range Interpretation Code Description Data Shelly rce(s) Supporting Document(s) ID Date Data Source [id number] 04/11/2020 12:00:00 AM EDT [facility] Name Value Range Interpretation Code Description Data Shelly rce(s) Supporting Document(s) SARS-CoV2 Rapid PCR [facility] This lab was ordered by [facility] ER and reported by [facility]. ID Date Data Source [id number] 08/12/2019 07:48:00 AM EST [facility] ([facility]) Name Value Range Interpretation Code Description Data Shelly rce(s) Supporting Document(s) Reported Physicians See Note Reported Physici ans [facility] ([facility]) Note: Reported Physicians:Ordering: Esha De La Garza AAttending: ESHA TALAMANTESConsulting: Alex TALAMANTES To: Esha Talamantes ID Date Data Source [id number] 08/12/2019 07:48:00 AM EST [facility] ([facility]) Name Value Range Interpretation Code Description Data Shelly rce(s) Supporting Document(s) CPK 102 U/L CPK [facility] ([facility]) Note: Responsible Observer: () ID Date Data Source [id number] 08/12/2019 07:48:00 AM EST [facility] ([facility]) Name Value Range Interpretation Code Description Data Shelly rce(s) Supporting Document(s) Reported Physicians See Note Reported Physici ans [facility] ([facility]) Note: Reported Physicians:Ordering: Esha De La Garza AAttending: ESHA TALAMANTESConsulting: Alex TALAMANTES To: Esha Talamantes ID Date Data Source [id number] 08/12/2019 07:48:00 AM EST [place] ([facility]) Name Value Range Interpretation Code Description Data Shelly rce(s) Supporting Document(s) A/G RATIO 1.7 A/G RATIO [place] ([facility]) Note: Responsible Observer: () AFR AMER GFR >60 mL/min AFR AMER GFR [place] ([facility]) Note: Male GFR Interprentation 20- 49 yrs [...] () 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 64 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 AGE [place] ([facility]) Note: Responsible Observer: () Albumin [Mass/volume] in Blood by Bromocresol purple ( BCP) dye binding method 4.3 G/DL ALBUMIN [place] ([facility]) Note: Responsible Observer: () ALKALINE PHOS 48 U/L ALKALINE PHOS [place] ([facility]) Note: Responsible Observer: () Anion gap in Body fluid 12.0 mmol/L ANION GAP [place] ([facility]) Note: Responsible Observer: () BUN 15 MG/DL BUN [place] ([facility]) Note: Responsible Observer: () BUN/CREAT 19 BUN/CREAT [place] ([facility]) Note: Responsible Observer: () Calcium [Moles/volume] in Urine collected for unspecified durati on 9.5 MG/DL CALCIUM [place] ([facility]) Note: Responsible Observer: () Chloride [Moles/volume] in Serum, Plasma or Blood 103 mEq/L CHLORIDE [place] ([facility]) Note: Responsible Observer: () CO2 24 MEQ/L CO2 [place] ([facility]) Note: Responsible Observer: () COMPREHENSIVE METABOLIC PANEL See Note COMPRE HENSIVE METABOLIC PANEL [place] ([facility]) Note: COMPREHENSIVE METABOLIC PANELR esponsible Observer: () Creatinine [Moles/volume] in Vitreous fluid 0.8 MG/DL CREATININE [place] ([facility]) Note: Responsible Observer: () Globulin [Mass/time] in 24 hour Urine 2.5 GM/DL GLOBULIN [place] ([facility]) Note: Responsible Observer: () Glucose [Mass/volume] in Urine collected for unspecified duratio n 184 MG/DL Above high normal GLUCOSE [place] ([facility]) Note: Responsible Observer: () NON-AA GFR >60 mL/min NON-AA GFR [place] ([facility]) Note: Responsible Observer: () Potassium [Mass/volume] in Blood 4.7 mEq/L POT ASSIUM [place] ([facility]) Note: Responsible Observer: () SGOT/AST 21 U/L SGOT/AST [place] ([facility]) Note: Responsible Observer: () SGPT/ALT 30 U/L SGPT/ALT [place] ([facility]) Note: Responsible Observer: () Sodium [Moles/volume] in Serum, Plasma or Blood 139 mEq/L SODIUM [place] ([facility]) Note: Responsible Observer: () TOTAL BILI <0.7 MG/DL TOTAL BILI [place] ([facility]) Note: Responsible Observer: () TOTAL PROTEIN 6.8 G/DL TOTAL PROTEIN [place] ([facility]) Note: Responsible Observer: () ID Date Data Source [id number] 08/12/2019 07:48:00 AM EST [place] ([facility]) Name Value Range Interpretation Code Description Data Shelly rce(s) Supporting Document(s) Reported Physicians See Note Reported Physici ans [place] ([facility]) Note: Reported Physicians:Ordering: Arminda De La Garzacelyn AAttending: VINITA JOCELYNConsulting: VINITA, JOCELYNCopy To: Esha Talamantes ID Date Data Source [id number] 08/12/2019 07:48:00 AM EST [place] ([facility]) Name Value Range Interpretation Code Description Data Shelly rce(s) Supporting Document(s) CREAT UR 137.6 MG/DL Above high normal CREAT UR KIARA ROSS ([facility]) Note: Responsible Observer: (BLD) MA/CREAT RATIO 2.76 MCG/MG MA/CREAT RATIO JEMIMA TEJADA ([facility]) Note: The [place] [employer] ion states that Microalbuminemia is present if the Microalbumin/Creatinine ratio exceeds 30 mcg/mg. The threshold for Clinical Albuminuria is reached at 300 mcg/mg. The classification of a patient should be based upon at least 2 or 3 abnormal results on specimens collected within a 3 to 6 month timeframe.Responsible Observer: (BLD) MICROALBUMIN <12.00 MG/L Above high normal MICROALBUMIN GR DARELL ([facility]) Note: Responsible Observer: (BLD) ID Date Data Source [id number] 08/12/2019 07:48:00 AM [facility] ([facility]) Name Value Range Interpretation Code Description Data Shelly rce(s) Supporting Document(s) Reported Physicians See Note Reported Physici karoline [place] ([facility]) Note: Reported Physicians:Ordering: Arminda De La Garzacelyn AAttending: ARMINDA TALAMANTESCELYNConsulting: ARMINDA TALAMANTESCELYNCopy To: Esha Talamantes ID Date Data Source [id number] 08/12/2019 07:48:00 AM EST [place] ([facility]) Name Value Range Interpretation Code Description Data Shelly rce(s) Supporting Document(s) PSA 0.95 ng/mL PSA [place] ([facility]) Note: BLDoPSA INTERP RETATIONBLDx The PSA assay [...] interchangeably.Responsible Observer: () ID Date Data Source [id number] 08/12/2019 07:48:00 AM [facility] ([facility]) Name Value Range Interpretation Code Description Data Shelly rce(s) Supporting Document(s) Reported Physicians See Note Reported Physici ans [place] ([facility]) Note: Reported Physicians:Ordering: Esha De La Garza AAttending: ESHA TALAMANTESConsulting: JUSTUS TALAMANTESYNCopy To: Esha Talamantes ID Date Data Source [id number] 08/12/2019 07:48:00 AM [facility] ([facility]) Name Value Range Interpretation Code Description Data Shelly rce(s) Supporting Document(s) Cholesterol [Moles/volume] in Pericardial fluid 177 MG/DL CHOLESTEROL [facility]) Note: Responsible Observer: (BLD) CVE PANEL See Note CVE PANEL [place] ([facility]) Note: LIPID PANELResponsible Observe r: (BLD) HDL 48 MG/DL HDL [place] ([facility]) Note: Responsible Observer: (BLD) Cholesterol in LDL [Mass/volume] in Serum or Plasma by Direct as say 91 mg/dL LDL [facility]) Note: Responsible Observer: (BLD) LDL/HDL 1.90 LDL/HDL [place] ([facility]) Note: CVE RISK CHOL/HD L LDL/HDLMEN: 1/2 AVERAGE 3.43 1.00 AVERAGE 4.97 3.55 2X AVERAGE 9.55 6.25 3X AVERAGE 23.99 7.99WOMEN: 1/2 AVERAGE 3.27 1.47 AVERAGE 4.44 3.22 2X AVERAGE 7.05 5.03 3X AVERAGE 11.04 6.14Responsible Observer: (BLD) RISK FACTOR 3.7 RISK FACTOR [place] ([facility]) Note: Responsible Observer: (BLD) TRIGLYCERIDES 272 MG/DL Above high normal [facility]CERIDES [facility] Note: Responsible Observer: (BLD) ID Date Data Source [id number] 08/12/2019 07:48:00 AM [facility] ([facility]) Name Value Range Interpretation Code Description Data Shelly rce(s) Supporting Document(s) Reported Physicians See Note Reported Physici ans [place] ([facility]) Note: Reported Physicians:Ordering: Beard e Esha AAttending: VINITA, JOCELYNConsulting: VINITA, JOCELYNCopy To: Vinita Esha ID Date Data Source [id number] 08/12/2019 07:48:00 AM [facility] ([facility]) Name Value Range Interpretation Code Description Data Shelly rce(s) Supporting Document(s) Testosterone, Serum 137 ng/dL Below low normal Testostero ne, Serum [place] ([facility]) Note: Adult male reference interval is b ased on a population ofhealthy nonobese males (BMI <30) between 19 and 39 years old.Silas, et.al. JCEM 2017,102;1161- 1173. PMID: 66748001.Responsible Observer: (rfl) ID Date Data Source [id number] 08/13/2019 08:10:00 AM [facility] Name Value Range Interpretation Code Description Data Shelly rce(s) Supporting Document(s) Testosterone [Mass/volume] in Serum or Plasma 137 ng/dL 264-916 L [facility] Adult male reference interval is based o n a population ofhealthy nonobese males (BMI <30) between 19 and 39 years old.Travison, et.al. JCEM 2017,102;7443-6656. PMID: 86084339. ID Date Data Source [id number] 08/12/2019 01:01:00 PM [facility] Name Value Range Interpretation Code Description Data Shelly rce(s) Supporting Document(s) [facility] Cholesterol [Mass/volume] in Serum or Plasma 177 MG/DL 131 - 200 [facility] Deprecated Triglyceride [Mass/volume] in Serum or Plasma 272 MG/DL 3 5 - 160 H [facility] HDL 48 MG/DL 29 - 86 [facility] Cholesterol in LDL/Cholesterol in HDL [Mass Ratio] in Serum or Plasma 91 mg/dL 65 - 175 [facility] Cholesterol.total/Cholesterol in HDL [Mass Ratio] in Serum o r Plasma 3.7 3.4 - 4.9 [facility] LDL/HDL 1.90 1.00 - 3.55 [facility] CVE RISK CHOL/HDL LDL/HDLMEN: 1/2 AVERAGE 3.43 1.00 AVERAGE 4.97 3.55 2X AVERAGE 9.55 6.25 3X AVERAGE 23.99 7.99WOMEN: 1/2 AVERAGE 3.27 1.47 AVERAGE 4.44 3.22 2X AVERAGE 7.05 5.03 3X AVERAGE 11.04 6.14 ID Date Data Source [id number] 08/12/2019 12:41:00 PM [facility] Name Value Range Interpretation Code Description Data Shelly rce(s) Supporting Document(s) Prostate specific Ag [Mass/volume] in Serum or Plasma 0.95 ng/mL 0.00 - 4.00 [facility] \\BLDo\\PSA INTERPRETA TION\\BLDx\\ The PSA assay [...] be used interchangeably. ID Date Data Source [id number] 08/12/2019 12:10:00 PM [facility] Name Value Range Interpretation Code Description Data Shelly rce(s) Supporting Document(s) COMPREHENSIVE METABOLIC PANEL [facility] COMPREHENSIVE METABOLIC PANEL Sodium [Moles/volume] in Serum or Plasma 139 mEq/L 134 - 153 [facility] Potassium [Moles/volume] in Serum or Plasma 4.7 mEq/L 3.6 - 5.0 [facility] Chloride [Moles/volume] in Serum or Plasma 103 mEq/L 98 - 107 [facility] Carbon dioxide, total [Moles/volume] in Serum or Plasma 24 MEQ/L 22 - 30 [facility] Glucose [Mass/volume] in Serum or Plasma 184 MG/DL 65 - 110 H [facility] BUN 15 MG/DL 7 - 21 [facility] Creatinine [Mass/volume] in Serum or Plasma 0.8 MG/DL 0.7 - 1.5 [facility] BUN/CREAT 19 8 - 27 [facility] Protein [Mass/volume] in Serum or Plasma 6.8 G/DL 6.3 - 8.2 [facility] Albumin [Mass/volume] in Serum or Plasma 4.3 G/DL 3.9 - 5.0 [facility] Globulin [Mass/volume] in Serum by calculation 2.5 GM/DL 2.4 - 3.2 [facility] A/G RATIO 1.7 0.8 - 2.0 [facility] Calcium [Mass/volume] in Serum or Plasma 9.5 MG/DL 8.4 - 10.2 [facility] Bilirubin.total [Mass/volume] in Serum or Plasma <0.7 MG/DL 0.2 - 1.3 [facility] Alkaline phosphatase [Enzymatic activity/volume] in Serum or Plasma 48 U/L 38 - 126 [facility] Aspartate aminotransferase [Enzymatic activity/volume] in Serum or Plasma 21 U/L 5 - 40 [facility] Alanine aminotransferase [Enzymatic activity/volume] in Seru m or Plasma 30 U/L 7 - 56 [facility] Anion gap 3 in Serum or Plasma 12.0 mmol/L 8.0 - 16.0 [facility] AGE 64 yrs [facility] NON-AA GFR >60 mL/min [facility] AFR AMER GFR >60 mL/min [facility] Male GFR In terprentation [...] >32 mL/min Normal ID Date Data Source [id number] 08/12/2019 12:10:00 PM [facility] Name Value Range Interpretation Code Description Data Shelly rce(s) Supporting Document(s) CREAT UR 137.6 MG/DL 0.0 - 30.0 H [facility] MICROALBUMIN <12.00 MG/L 0.00 - 0.00 H [facility] MA/CREAT RATIO 2.76 MCG/MG 0.01 - 30.00 [facility] The [place] [employer] st ates that Microalbuminemia is present if the Microalbumin/Creatinine ratio exceeds 30 mcg/mg. The threshold for Clinical Albuminuria is reached at 300 mcg/mg. The classification of a patient should be based upon at least 2 or 3 abnormal results on specimens collected within a 3 to 6 month timeframe. ID Date Data Source [id number] 08/12/2019 12:03:00 PM [facility] Name Value Range Interpretation Code Description Data Shelly rce(s) Supporting Document(s) Creatine kinase [Enzymatic activity/volume] in Serum or Plasma 1 02 U/L 30 - 170 [facility] ID Date Data Source [id number] 07/09/2019 08:53:00 AM [facility] [address] [place] [address] PHONE: [phone] FAX: [phone] Name ..............: APRYL Ma Acct Number ...........................: [id number] ROOM. ............: TR-1A Number ............................: [id number] Stay type.........: E/R Discharge Date...............:07/07/19 Admit Date .....: 07/07/19 Admit Phys .............................: SIVA TOPETE Date of ..: 1955 Family Phys ...........................: VINITA RUFUS Phone..............: [phone] Age.................................:63 Film# ...............:[id number] Sex.................................:M Unsigned transcriptions are preliminary reports and do not represent a medical or legal document EKG [id number] COMPLETE:07/08/19 07:30 SAVAGE [id number] Please See Scanned Results. Name Value Range Interpretation Code Description Data Shelly rce(s) Supporting Document(s) ID Date Data Source [id number] 07/08/2019 09:58:00 [place] [address] PHONE: [phone] FAX: [phone] Name .................. : APRYL Ma Acct Number.................. : [id number] ROOM. ................. : TR-1A MR Number ................... : [id number] Stay type ............. : E/R Discharge Date......... ... : 07/07/19 Admit Date ......... : 07/07/19 Admit Phys .................... : SIVA TOPETE Date of ....... : 1955 Family Phys ................... : VINITA RUFUS Phone .................. : [phone] Age ................................ : 63 Film# .................. .:[id number] Sex ................................. : M Unsigned transcriptions are preliminary reports and do not represent a medical or legal document CT CERV SPINE W/O CONTRAS [id number] COMPLETE:07/07/19 13:35 45343 Reason(s): Pain CT STUDY OF THE CERVICAL [...] [place] via fax Page [address] 2 [place] [address] PHONE: [phone] FAX: [phone] Name .................. : APRYL Ma Acct Number.................. : [id number] ROOM. ................. : TR-1A MR Number ................... : [id number] Stay type ............. : E/R Discharge D ate......... ... : 07/07/19 Admit Date ......... : 07/07/19 Admit Phys .................... : SIVA TOPETE Date of ....... : 1955 Family Phys ................... : VINITA HOOPER Phone .................. : [phone] Age ................................ : 63 Film# .................. .:[id number] Sex ................................. : M Unsigned transcriptions are preliminary reports and do not represent a medical or legal document CT CERV SPINE W/O CONTRAS [id number] COMPLETE:07/07/19 13:35 75914 Reason(s): Pain Copy for: EMERGENCY DEPT via modem Copy for: 710 MED REC DISCHARGED Page 2 of 2 Name Value Range Interpretation Code Description Data Shelly rce(s) Supporting Document(s) ID Date Data Source [id number] 07/08/2019 09:54:00 AM EST [facility] [address] [place] [address] PHONE: [phone] FAX: [phone] Name .................. : APRYL Ma Acct Number.................. : [id number] ROOM. ................. : [facility] MR Number ................... : [id number] Stay type ............. : E/R Discharge Date......... ... : 07/07/19 Admit Date ......... : 07/07/19 Admit Phys .................... : SIVA TOPETE Date of ....... : 1955 Family Phys ................... : ZIRX Phone .................. : [phone] Age ................................ : 63 Film# .................. .:[id number] Sex ................................. : M Unsigned transcriptions are preliminary reports and do not represent a medical or legal document ELBOW COMPLETE [id number] COMPLETE:07/07/19 13:37 23709 Reason(s): Pain LEFT ELBOW SERIES: FINDINGS: No [...] rce(s) Supporting Document(s) ID Date Data Source [id number] 07/08/2019 09:54:00 AM EST [facility] [address] [place] [address] PHONE: [phone] FAX: [phone] Name .................. : APRYL Ma Acct Number.................. : [id number] ROOM. ................. : TR1A MR Number ................... : [id number] Stay type ............. : E/R Discharge Date......... ... : 07/07/19 Admit Date ......... : 07/07/19 Admit Phys .................... : SIVA TOPETE Date of ....... : 1955 Family Phys ................... : VINITA HOOPER Phone .................. : [phone] Age ................................ : 63 Film# .................. .:[id number] Sex ................................. : M Unsigned transcriptions are preliminary reports and do not represent a medical or legal document CHEST 2 VIEWS [id number] COMPLETE:07/07/19 13:35 80238 Reason(s): Congestion CHEST X-RAY: 2-VIEWS HISTORY: Congestion [...] rce(s) Supporting Document(s) ID Date Data Source [id number] 07/07/2019 01:18:00 PM EST [facility] 1 OrderSheet [facility] Emergency Department [address] [place] [address] Phone #: ext- [phone] 07/07/2019 13:01 Patient: TOLU RATLIFF Sex: M : 1955 Age: 63yWEIGHT:88.4 kg (S) HEIGHT:71 inches (S) BMI:27.2ALLERGIES: Shellfish-derived ProductsCHIEF COMPLAINT: pain, swelling, altered sensation, pain, swelling, altered sensation, Lt, shoulders, in:, Lt,elbowsDIAGNOSIS: BursitisLAB ORDERSOrder Description Priority Entered Acknowledged InitialedCBC w Diff STAT 13:35 07/07/2019 13:46 Edna Paris RN PA;CMP STAT 13:35 07/07/2019 13:46 Edna Paris RN PA;Blood Culture STAT 13:35 07/07/2019 13:46 Odctns26x X2 (Sched Faustino Paris RN13:35 07/07/2019) PA;Blood Culture STAT 13:35 07/07/2019 13:46 Dramng10c X2 (Sched Faustino sparrow RN13:45 07/07/2019) PA;Lactic Acid STAT 13:35 07/07/2019 13:46 Edna Paris RN PA;PT/PTT STAT 13:35 07/07/2019 13:46 Edna Paris RN PA;Urinalysis (Clean STAT 13:35 07/07/2019 15:25 TimboisCjose carlos Paris RN PA;Sed. Rate STAT 13:35 07/07/2019 13:46 Edna Paris RN PA;CRP STAT 13:35 07/07/2019 13:46 Edna Paris RN PA;Troponin-T STAT 13:35 07/07/2019 13:46 Edna Paris RN PA; 2 OrderSheet [facility] Emergency Department [address] [place] [address] Phone #: ext- [phone] 07/07/2019 13:01 Patient: [...] 15:30 Edna Paris RN PA; 3 OrderSheet [facility] Emergency Department [address] [place] [address] Phone #: ext- [phone] 07/07/2019 13:01 Patient: TOLU RATLIFF Sex: M : 1955 Age: 63y[Electronically signed by Edna Paris RN (15:38 07/07/2019)][Electronically signed by Faustino Young (17:59 07/07/2019)][Electronically locked by Edna Paris RN (15:38 07/07/2019)] Name Value Range Interpretation Code Description Data Shelly rce(s) Supporting Document(s) ID Date Data Source [id number] 07/07/2019 01:18:00 PM EST [facility] 1 Medication Reconciliation Report [facility] Emergency Department [address] [place] [address] Phone #: ext- [phone] 07/07/2019 13:01 Patient: TOLU RATLIFF Sex: M [...] 1 pack. Refills: 0. Substitution permitted.Pharmacy - [id number] - [address] [place], [place] [id number]. .Bactrim DS 800 mg-160 mg tablet Take 1 tablet twice a day for 10 days -- Dispense 20 tablet. Refills: 2 Medication Reconciliation Report [facility] Emergency Department [address] [place] [address] Phone #: ext- [phone] 07/07/2019 13:01 Patient: TOLU RATLIFF Sex: M : 1955 Age: 63y0. Substitution permitted.Pharmacy - [id number] - [address] [place], [place] [id number]. . -- FABRICE Pena Name Value Range Interpretation Code Description Data Shelly rce(s) Supporting Document(s) ID Date Data Source [id number] 07/07/2019 01:18:00 PM EST [facility] 1 Medication Administration Record [facility] Emergency Department [address] [place] [address] Phone #: [phone] igc- [phone] 07/07/2019 13:01 Patient: TOLU RATLIFF Sex: M [...] rce(s) Supporting Document(s) ID Date Data Source [id number] 07/07/2019 01:18:00 PM EST [facility] 1 General Instructions [facility] Emergency Department [address] [place] [address] Phone #: ext- [phone] 07/07/2019 13:01 Patient: [...] tomorrow AM.Dispense 1 pack. Refills: 0. Substitution permitted.[id number] [phone]. FaxNumber: .Bactrim DS 800 mg-160 mg tablet Take 1 tablet twice a day for 10 days -- Dispense 20 tablet. Refills:0. Substitution permitted.[id number] - [address] [place], [place] [phone]. .Follow-up:Follow up with your doctor Monday. Call for an appointment. Reason for referral: evaluation, treatment andreferral to Orthopedics for left elbow burisitis if no improvement.. Summary of care provided to patient.Understanding of the discharge instructions verbalized by patient. ADDITIONAL INFORMATIONBursitis 2 General Instructions [facility] Emergency Department [address] [place] [address] Phone #: [phone]- [phone] 07/07/2019 13:01 Patient: TOLU RATLIFF Sex: M [...] wrap or splint wet. You may take jeoh-jwa-sakfqli pain medicine to treat pain and inflammation, [...] to flare up again. 3 General Instructions [facility] Emergency Department [address] [place] [address] Phone #: ext- [phone] 07/07/2019 13:01 Patient: TOLU RATLIFF Sex: M : 1955 Age: 63yWhen to seek medical adviceCall your healthcare provider right away if any of these occur: Redness or warmth over the painful area Increasing pain or swelling at the joint Fever of 100.4F (38C) or above lasting for 24 to 48 hours, or as advised Chills [phone] [employer]. [address] [place] [address]. All rights reserved. This information is not [...] apply an elastic bandage: 4 General Instructions [facility] Emergency Department [address] [place], [place] [address] Phone #: ext- [phone] 07/07/2019 13:01 Patient: [...] doesn't go away after bandage is removed [phone] [employer]. [address] [place] [address]. All rights reserved. This information is not intended as asubstitute for professional medical care. Always follow your healthcare professional's instructions. You have been given the following additional information: Bursitis TARYN Wrap 5 General Instructions [facility] Emergency Department [address] [place] [address] Phone #: ext- [phone] 07/07/2019 13:01 Patient: TOLU RATLIFF Sex: M : 1955 Age: 63y(Electronically signed by FABRICE Pena 07/07/2019 17:59) Name Value Range Interpretation Code Description Data Shelly rce(s) Supporting Document(s) ID Date Data Source [id number] 07/07/2019 01:18:00 PM EST [facility] 1 Clinical Report - Nurses [facility] Emergency Department [address] [place] [address] Phone #: ext- [phone] 07/07/2019 13:01 Patient: [...] RN.ADDITIONAL SURGERIES: 2 Clinical Report - Nurses [facility] Emergency Department [address] [place] [address] Phone #: ext- [phone] 07/07/2019 13:01 [id number] Sex: M : 1955 Age: 63y Back [...] risk identified. --13:12 07/07/19 Edna Paris RN.PHYSICAL UNNYLXEWUH64:12 07/07/19. Ambulatory to room.GENERAL / NEURO / [...] for evaluation- ED physician and PA notified. --13: Edna Paris RN 3 Clinical Report - Nurses [facility] Emergency Department [address] [place] [address] Phone #: [phone] ern- [phone] 07/07/2019 13:01 Patient: TOLU RATLIFF Sex: M [...] radiology and CT by wheelchair with radiology nurse. --14:38 07/07/19 Edna Paris RN 14:38 07/07/19. Patient returned from radiology and CT by wheelchair with radiology nurse. --14:38 07/07/19 Edna Paris RN 14:50 07/07/2019 [...] F. Pain level now 4/10. 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 Condition at departure: improved and stable. No learning barriers present. Discharge instructions provided and reviewed with the patient. Reviewed medication(s) side effects, precautions, dosing and course information. Prescription(s) sent electronically to pharmacy (Medrol, Bactrim DS). Patient verbalized understanding. Written instructions provided in Omani. The patient was discharged home. He left ambulatory and via private vehicle. Patient driving. --15:38 07/07/19 Edna Paris RN.Locked/Released at 07/07/2019 15:38 by Edna Paris RN Name Value Range Interpretation Code Description Data Shelly rce(s) Supporting Document(s) ID Date Data Source [id number] 07/07/2019 01:18:00 PM [facility] 1 Clinical Report - Physicians/Mid Levels [facility] Emergency Department [address] [place] [address] Phone #: ext- [phone] 07/07/2019 13:01 Patient: TOLU RATLIFF Sex: M [...] hives). 2 Clinical Report - Physicians/Mid Levels [facility] Emergency Department [address] [place] [address] Phone #: ext- [phone] 07/07/2019 13:01 [id number] Sex: M : 1955 Age: 63ySOCIAL HISTORYFormer [...] 2.0) 3 Clinical Report - Physicians/Mid Levels [facility] Emergency Department [address] [place] [address] Phone #: ext- [phone] 07/07/2019 13:01 Patient: [...] Male GFR Interprentation 20-49 yrs >60 mL/min Cbbhju34-51 yrs >56 mL/min Normal 60-69 yrs >49 mL/min Normal 70-79yrs>42 mL/min Normal 80 and above >35 mL/min Normal Female GFRInterpretation 20-39 yrs >60 mL/min Normal 40-49 yrs >58 mL/minNormal 50-59 yrs >51 mL/min Normal 60-69 yrs >45 mL/min Xnlocj89-87 yrs >39 mL/min Normal 80 and above >32 mL/min NormalLactic Acid: (RYAN: 07/07/2019 14:01) ( [facility] 14[facility]39) Final results Test Result Flag Units (Reference) LACTIC ACID 3.0 H MMOL/L (0.2 - 2.2)PT/PTT: (RYAN: 07/07/2019 14:01) ( [facility] 07/07/[facility] 14:40) Final results Test Result Flag Units (Reference) PROTIME 12.5 SECONDS (11.0 - 15.5) INR 0.92 L (0.93 - 1.23) PTT 27.1 SECONDS (24.8 - 36.7) \\BLDo\\INR INTERPRETATION\\BLDx\\ Therapeutic range for Coumadin andrelated oral anticoagulants. -International Normalized Ratio (INR): 2.0 - 3.0 for VenousThrombosis, Pulmonary Embolus, Tissue heart valves, Acute NH Atrial Fibrillation, Valvular heart diseaseand recurrent Systemic Embolism. -International Normalized Ratio (INR): 2.5 - 3.5 forMechanical Prosthetic valve. \\BLDo\\PTT INTERPRETATION\\BLDx\\Critical results for patients not on therapy: >50 seconds Critical results for patients on therapy:>119 seconds Therapeutic range for patients on therapy: 58 - 90 seconds Coag studies fromline draws may not be accurate due to Heparin and other interferences.CRP: (RYAN: 07/07/2019 14:01) ( [facility] 14:40) Final results 4 Clinical Report - Physicians/Mid Levels [facility] Emergency Department [address] [place] [address] Phone #: ext- [phone] 07/07/2019 13:01 Patient: [facility]FF [id number] Sex: M : 1955 Age: 63y Test [...] prn. 5 Clinical Report - Physicians/Mid Levels [facility] Emergency Department [address] [place] [address] Phone #: ext- [phone] 07/07/2019 13:01 Patient: TOLU RATLIFF Sex: M : 1955 Age: 63y Serevent Diskus Inhalation : 2 puffs daily. Prescription Medications: Medrol (Chucky) 4 mg tablets in a dose pack Take 1 tablet as directed for 6 days -- start tomorrow AM. Dispense 1 pack. Refills: 0. Substitution permitted. Pharmacy - [id number] [phone]. . Bactrim DS 800 mg-160 mg tablet Take 1 tablet twice a day for 10 days -- Dispense 20 tablet. Refills: 0. Substitution permitted. Pharmacy - [facility] #[id number] - [address], [place] [phone]. FaxNumber: . Follow-up: Follow up with your [...] rce(s) Supporting Document(s) ID Date Data Source [id number] 07/07/2019 03:30:00 PM EST ELIZABETH ([facility]) Name Value Range Interpretation Code Description Data Shelly rce(s) Supporting Document(s) Reported Physicians See Note Reported Physici ans ELIZABETH ([facility]) Note: Reported Physicians:Ordering: Sandy UMANAending: SIVA, YUSEFANConsulting: JUSTUS TALAMANTESYNCopy To: Azeb Young To: SIVA BRYANCopy To: Esha Talamantes ID Date Data Source [id number] 07/07/2019 03:30:00 PM EST [facility] ([facility]) Name Value Range Interpretation Code Description Data Shelly rce(s) Supporting Document(s) Bilirubin [Presence] in Peritoneal fluid NEG BILIRUBIN [facility] ([facility]) Note: Responsible Observer: () Blood [Presence] in Urine by Visual NEG BLOOD [facility] ([facility]) Note: Responsible Observer: () Clarity of Pleural fluid from Fetus clear CLARITY [facility] ([facility]) Note: Responsible Observer: () Color of Exudate from wound yellow COLOR [facility] ([facility]) Note: Responsible Observer: () Glucose [Mass/volume] in Urine collected for unspecified duration N ORM GLUCOSE [facility] ([facility]) Note: Responsible Observer: () KETONE NEG KETONE [facility] ([facility]) Note: Responsible Observer: () LEUK EST NEG LEUK EST [facility] ([facility]) Note: Responsible Observer: () MICROSCOPIC Not Indicate MICROSCOPIC [facility] ([facility]) Note: Responsible Observer: () Nitrite [Presence] in Urine by Test strip NEG NITRITE [facility] ([facility]) Note: Responsible Observer: () pH of Vaginal fluid by Test strip 5 pH [facility] ([facility]) Note: Responsible Observer: () Protein [Mass/volume] in Saliva (oral fluid) NEG PROTEIN [facility] ([facility]) Note: Responsible Observer: () SPEC GRAVITY 1.030 SPEC GRAVITY [facility] ([facility]) Note: Responsible Observer: () Urobilinogen [Presence] in Urine by Automated test strip NOR UROBILINOGEN [place] ([facility]) Note: Responsible Observer: () SOURCE R SOURCE EL[facility]ETH ([facility]) Note: Responsible Observer: () URINALYSIS See Note URINALYSIS [facility] ([facility] edicine [facility]) Note: URINALYSISResponsible Observer : () ID Date Data Source [id number] 07/07/2019 03:53:00 PM EST [facility] Name Value Range Interpretation Code Description Data Shelly rce(s) Supporting Document(s) URINALYSIS [facility] URINALYSIS SOURCE R [facility] COLOR yellow NORMAL: Yellow [facility] ospital CLARITY clear NORMAL: Clear [facility] Specific gravity of Urine by Test strip 1.030 1.001 - 1.030 [facility] pH 5 5 - [facility] Glucose [Mass/volume] in Urine by Test strip NORM NORMAL: Negat [facility] Bilirubin.total [Presence] in Urine by Test strip NEG NORMAL: Negative [facility] Ketones [Presence] in Urine by Test strip NEG NORMAL: Negative [facility] Protein [Mass/volume] in Urine by Test strip NEG NORMAL: Negat [facility] Nitrite [Presence] in Urine by Test strip NEG NORMAL: Negative [facility] BLOOD NEG NORMAL: Negative [facility] Leukocyte esterase [Presence] in Urine by Test strip NEG JOSE L: Negative [facility] Urobilinogen [Mass/volume] in Urine by Test strip NOR less madeleine n 1.0 mg/dL [facility] MICROSCOPIC Not Indicate [facility] ID Date Data Source [id number] 07/08/2019 09:43:00 AM [facility] CELIA @ [facility] NOTIFIED 07/08/19 @ 0900 RMMLE FT ELBOW BURSADoes the specimen need to be recollected?: YREASON REJECTED:: WRONG SWAB COLLECTEDTEST(S) ORDERED:: ANAEROBIC CULTURE LEFT ELBOW BURSA LEFT ELBOW [facility]URSA Name Value Range Interpretation Code Description Data Shelly rce(s) Supporting Document(s) Laboratory ANAEROBIC CULTURE [facility] Laboratory studies (set) WRONG SWAB COLLECTED [facility] One or more of the tests that youordered cannot be performed.Please recollect, reorder and resubmit. ID Date Data Source [id number] 07/09/2019 07:21:00 AM [facility] CELIA @ [facility] NOTIFIED 07/08/19 @ 0900 RMMLE FT ELBOW BURSADoes the specimen need to be recollected?: YREASON REJECTED:: WRONG SWAB COLLECTEDTEST(S) ORDERED:: ANAEROBIC CULTURE LEFT ELBOW [facility] LEFT ELBOW [facility] Name Value Range Interpretation Code Description Data Shelly rce(s) Supporting Document(s) Gram stain result No organisms seen [facility] ID Date Data Source [id number] 07/12/2019 10:33:00 AM [facility] CELIA @ [facility] NOTIFIED 07/08/19 @ 0900 RMMLE FT ELBOW BURSADoes the specimen need to be recollected?: YREASON REJECTED:: WRONG SWAB COLLECTEDTEST(S) ORDERED:: ANAEROBIC CULTURE LEFT ELBOW [facility] LEFT ELBOW [facility] Name Value Range Interpretation Code Description Data Shelly rce(s) Supporting Document(s) Bacteria identified in Wound by Aerobe culture [facility] Culture results No growth at 4 days [facility] ID Date Data Source [id number] 07/07/2019 03:17:00 PM EST ELIZ[facility]ETH ([facility]) Name Value Range Interpretation Code Description Data Shelly rce(s) Supporting Document(s) Reported Physicians See Note Reported Physici ans [facility]IZABETH ([facility]) Note: Reported Physicians:Ordering: Sandy UMANAending: Liyah PANIAGUAulting: Alex TALAMANTES To: Azeb Young To: RACHEL PANIAGUAopy To: Esha Talamantes ID Date Data Source [id number] 07/07/2019 03:17:00 PM EST [facility] ([facility]) Name Value Range Interpretation Code Description Data Shelly rce(s) Supporting Document(s) GRAM STAIN See Note GRAM STAIN [facility] ([facility]) Note: GRAM STAIN: TEST PERFORMED AT [facility] [address] [place] [address] CLIA# [id number] SEE SCANNED REPORT COMMENT: Respo nsible Observer: (MD) ID Date Data Source [id number] 07/07/2019 03:17:00 PM [facility] ([facility]) Name Value Range Interpretation Code Description Data Shelly rce(s) Supporting Document(s) Reported Physicians See Note Reported Physici ans [place] ([facility]) Note: Reported Physicians:Ordering: Sandy UMANAending: Liyah PANIAGUAulting: Alex TALAMANTES To: Azeb Young To: Trina PANIAGUA To: Esha Talamantes ID Date Data Source [id number] 07/07/2019 03:17:00 PM [facility] ([facility]) Name Value Range Interpretation Code Description Data Shelly rce(s) Supporting Document(s) CULTURE WOUND See Note CULTURE WOUND [facility] ([facility]) Note: .WOUND CULTURE_{ SPECIM EN SOURCE : Result: TEST PERFORMED AT [address] [place] [address] CLIA# [id number] SEE SCANNED REPORT Responsible Observer: (DW) ID Date Data Source [id number] 07/12/2019 02:08:00 PM [facility] Name Value Range Interpretation Code Description Data Shelly rce(s) Supporting Document(s) CULTURE WOUND [facility] spital .WOUND CULTURE_{ SPECIMEN SHELLY RCE : Result: TEST PERFORMED AT [address], [place] [id number] CLIA# [id number] SEE SCANNED REPORT ID Date Data Source [id number] 07/09/2019 01:14:00 PM EST [facility] Name Value Range Interpretation Code Description Data Shelly rce(s) Supporting Document(s) GRAM STAIN [facility] GRAM STAIN: TEST PERFORMED AT [facility] [address] [place] [address] CLIA# [id number] SEE SCANNED REPORT COMMENT: ID Date Data Source [id number] 07/13/2019 10:38:00 AM EST [facility] [id number] Name Value Range Interpretation Code Description Data Shelly rce(s) Supporting Document(s) Bacteria identified in Blood by Culture [facility] NO GROWTH AFTER 5 DAYS ID Date Data Source [id number] 07/07/2019 02:56:00 PM EST ELIZABETH ([facility]) Name Value Range Interpretation Code Description Data Shelly rce(s) Supporting Document(s) Reported Physicians See Note Reported Physici karoline JOHNSON ([facility]) Note: Reported Physicians:Ordering: Sandy UMANAending: Liyah PANIAGUAulting: Alex TALAMANTES To: Dara Youngy To: MACARIOS, BRYANCopy To: Esha Talamantes ID Date Data Source [id number] 07/07/2019 02:56:00 PM EST [facility] ([facility]) Name Value Range Interpretation Code Description Data Shelly rce(s) Supporting Document(s) CULTURE BLOOD See Note CULTURE BLOOD [place] ([facility]) Note: _CULTURE BLOOD_ TEST P ERFORMED AT [address] [address] CLIA# [id number] SEE SCANNED REPORT{ PRELIMResponsible Observer: (GBT) ID Date Data Source [id number] 07/14/2019 03:41:00 AM [facility] Name Value Range Interpretation Code Description Data Shelly rce(s) Supporting Document(s) CULTURE BLOOD [facility] _CULTURE BLOOD_ TEST PERFORM ED AT [address] [address] CLIA# [id number] SEE SCANNED REPORT{ PRELIM ID Date Data Source [id number] 07/07/2019 02:01:00 PM EST ELIZABETH ([facility]) Name Value Range Interpretation Code Description Data Shelly rce(s) Supporting Document(s) Reported Physicians See Note Reported Physici ans [place] ([facility]) Note: Reported Physicians:Ordering: Sandy UMANAending: SRAVANTHIRUS, BRYANConsulting: ESHA TALAMANTESCopninfa To: Azeb Young To: VENERUS, BRYANCopy To: Esha Talamantes ID Date Data Source [id number] 07/07/2019 02:01:00 PM EST [place] ([facility]) Name Value Range Interpretation Code Description Data Shelly rce(s) Supporting Document(s) SED RATE 1 mm/hr SED RATE [facility]ETH ([facility]) Note: Responsible Observer: () SED RATE REENTER 1 SED RATE REENTER [facility] ([facility]) Note: Responsible Observer: () ID Date Data Source [id number] 07/07/2019 02:01:00 PM EST ELIZ[facility] ([facility]) Name Value Range Interpretation Code Description Data [facility] rce(s) Supporting Document(s) Reported Physicians See Note Reported Physic ans [place] ([facility]) Note: Reported Physicians:Ordering: CHRISTIANE UMANADEAttending: VENERUS, BRYANConsulting: VINITA, JOCELYNCopy To: [place] WadeCopy To: VENERUS, BRYANCopy To: Vinita, Esha ID Date Data Source [id number] 07/07/2019 02:01:00 PM EST ELIZ[facility]ETH ([facility]) Name Value Range Interpretation Code Description Data Shelly rce(s) Supporting Document(s) LACTIC ACID 3.0 MMOL/L Above high normal LACTIC ACID [facility] ([facility]) Note: Responsible Observer: SUSAN) ID Date Data Source [id number] 07/07/2019 02:01:00 PM EST EL[facility] ([facility]) Name Value Range Interpretation Code Description Data [facility] rce(s) Supporting Document(s) Reported Physicians See Note Reported [facility] ([facility]) Note: Reported Physicians:Ordering: CHRISTIANE UMANADEAttending: VENERUS, BRYANConsulting: VINITA, JOCELYNCopy To: Christiane YoungdeCopy To: VENERUS, BRYANCopy To: VinitaArmindaEsha ID Date Data Source [id number] 07/07/2019 02:01:00 PM EST ELIZ[facility]ETH ([facility]) Name Value Range Interpretation Code Description Data [facility] rce(s) Supporting Document(s) INR in Blood by Coagulation assay 0.92 Below low nor mal INR [place] ([facility]) Note: Responsible Observer: () PROTIME 12.5 SECONDS PROTIME [place] ([facility]) Note: Responsible Observer: () PTT 27.1 SECONDS PTT [place] ([facility]) Note: \\BLD o\\INR INTERPRETATION\\BLDx Therapeutic range for Coumadin and related oral anticoagulants. - International Normalized Ratio (INR): 2.0 - 3.0 for Venous Thrombosis, Pulmonary Embolus, Tissue heart valves, Acute NH Atrial Fibrillation, Valvular heart disease and recurrent [...] interferences.Responsible Observer: () ID Date Data Source [id number] 07/07/2019 02:01:00 PM EST EL[facility] ([facility]) Name Value Range Interpretation Code Description Data Shelly rce(s) Supporting Document(s) Reported Physicians See Note Reported Physici ans [facility]IZABETH ([facility]) Note: Reported Physicians:Ordering: Sandy UMANAending: RACHEL PANIAGUAonsulting: JUSTUS TALAMANTESYNCopninfa To: Azeb Young To: YUSEF PANIAGUAANCopy To: Esha Talamantes ID Date Data Source [id number] 07/07/2019 02:01:00 PM EST [facility] ([facility]) Name Value Range Interpretation Code Description Data Shelly rce(s) Supporting Document(s) #BASO 0.04 10\\^3/uL #BASO [facility] ([facility]) Note: Responsible Observer: () #EOS 0.18 10\\^3/uL #EOS [facility] ([facility]) Note: Responsible Observer: () #IG 0.04 10\\^3/uL #IG [facility] ([facility]) Note: Responsible Observer: () #LYMPH 2.04 10\\^3/uL #LYMPH [facility] ([facility]) Note: Responsible Observer: () #MONO 0.87 10\\^3/uL #MONO [facility] ([facility]) Note: Responsible Observer: () #NEUT 8.34 10\\^3/uL Above high normal #NEUT [place] ([facility]) Note: Responsible Observer: () #NRBC 0.00 10\\^3/uL #NRBC [facility] ([facility]) Note: Responsible Observer: () %NRBC 0.0 % %NRBC [facility] ([facility]) Note: Responsible Observer: () %IG 0.3 % Above high normal %IG [facility] ([facility]) Note: Responsible Observer: () CBC W/AUTOMATED DIFF See Note CBC W/AUTOMATED DIFF [place] ([facility]) Note: COMPLETE BLOOD COUNTResponsibl e Observer: () BASO 0.3 % BASO [place] ([facility]) Note: Responsible Observer: () EOS 1.6 % EOS [place] ([facility]) Note: Responsible Observer: () Hematocrit [Pure volume fraction] of Blood by Automated count 47.4 % HEMATOCRIT [place] ([facility]) Note: Responsible Observer: () LYMPH 17.7 % Below low normal LYMPH [place] ([facility]) Note: Responsible Observer: () Hemoglobin [Mass/volume] in Mixed venous blood by Oximetry 15.9 g/d L HEMOGLOBIN [place] ([facility]) Note: Responsible Observer: () MANUAL DIFF NOT INDICATED MANUAL DIFF [place] ([facility]) Note: Responsible Observer: () MCH 30.4 pg MCH [place] ([facility]) Note: Responsible Observer: () MCHC 33.5 g/dL MCHC [place] ([facility]) Note: Responsible Observer: () MCV 90.6 fL MCV [place] ([facility]) Note: Responsible Observer: SUSAN) MONO 7.6 % MONO [place] ([facility]) Note: Responsible Observer: () NEUT 72.5 % NEUT [place] ([facility]) Note: Responsible Observer: () MPV 9.2 fL MPV [place] ([facility]) Note: Responsible Observer: () Platelets [#/area] in Blood by Microscopy high power field 217 10\\^ 3/uL PLATELETS [place] ([facility]) Note: Responsible Observer: SUSAN) RBC 5.23 10\\^6/uL RBC [place] ([facility]) Note: Responsible Observer: () RBC MORPH NOT INDICATED RBC MORPH [place] ([facility]) Note: Responsible Observer: () RDW 12.8 % RDW [place] ([facility]) Note: Responsible Observer: () WBC 11.5 10\\^3/uL Above high normal WBC GREE [facility] ([facility]) Note: Responsible Observer: SUSAN) ID Date Data Source [id number] 07/07/2019 02:01:00 PM EST [facility] ([facility]) Name Value Range Interpretation Code Description Data Shelly rce(s) Supporting Document(s) Reported Physicians See Note Reported Physic ans [place] ([facility]) Note: Reported Physicians:Ordering: CHRISTIANE UMANADEAttending: VENERUS, BRYANConsulting: VINITA, JOCELYNCopy To: Christiane YoungdeCopy To: VENERUS, BRYANCopy To: Arminda Talamantescelyn ID Date Data Source [id number] 07/07/2019 02:01:00 PM EST [place] ([facility]) Name Value Range Interpretation Code Description Data Shelly rce(s) Supporting Document(s) TROPONIN T 0.01 NG/ML TROPONIN T [place] ([facility]) Note: TROPONIN T0.1 ng/ml Recommended as the clinical threshold value forTroponin T.Responsible Observer: SUSAN) ID Date Data Source [id number] 07/07/2019 02:01:00 PM EST [place] ([facility]) Name Value Range Interpretation Code Description Data Shelly rce(s) Supporting Document(s) Reported Physicians See Note Reported Physici ans [place] ([facility]) Note: Reported Physicians:Ordering: CHRISTIANE UMANADEAttending: VENERUS, BRYANConsulting: VINITA, JOCELYNCopy To: Hannah WadeCopy To: VENERUS, BRYANCopy To: Vinita, Esha ID Date Data Source [id number] 07/07/2019 02:01:00 PM EST [facility] ([facility]) Name Value Range Interpretation Code Description Data Shelly rce(s) Supporting Document(s) A/G RATIO 1.8 A/G RATIO [place] ([facility]) Note: Responsible Observer: () AFR AMER GFR >60 mL/min AFR AMER GFR [place] ([facility]) Note: Male GFR Interprentation 20- 49 yrs [...] 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 63 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 AGE [facility] ([facility]) Note: Responsible Observer: () Albumin [Mass/volume] in Blood by Bromocresol purple ( BCP) dye binding method 4.8 G/DL ALBUMIN [place] ([facility]) Note: Responsible Observer: () ALKALINE PHOS 55 U/L ALKALINE PHOS [place] ([facility]) Note: Responsible Observer: () BUN 15 MG/DL BUN [place] ([facility]) Note: Responsible Observer: () Anion gap in Body fluid 15.0 mmol/L ANION GAP [place] ([facility]) Note: Responsible Observer: () BUN/CREAT 19 BUN/CREAT [place] ([facility]) Note: Responsible Observer: () Calcium [Moles/volume] in Urine collected for unspecified durati on 10.6 MG/DL Above high normal CALCIUM [place] ([facility]) Note: Responsible Observer: () Chloride [Moles/volume] in Serum, Plasma or Blood 102 mEq/L CHLORIDE [place] ([facility]) Note: Responsible Observer: () CO2 24 MEQ/L CO2 [place] ([facility]) Note: Responsible Observer: () COMPREHENSIVE METABOLIC PANEL See Note COMPRE HENSIVE METABOLIC PANEL [place] ([facility]) Note: COMPREHENSIVE METABOLIC PANELR esponsible Observer: () Creatinine [Moles/volume] in Vitreous fluid 0.8 MG/DL CREATININE [place] ([facility]) Note: Responsible Observer: () Globulin [Mass/time] in 24 hour Urine 2.7 GM/DL GLOBULIN [place] ([facility]) Note: Responsible Observer: () Glucose [Mass/volume] in Urine collected for unspecified duratio n 120 MG/DL Above high normal GLUCOSE [place] ([facility]) Note: Responsible Observer: () NON-AA GFR >60 mL/min NON-AA GFR [place] ([facility]) Note: Responsible Observer: () Potassium [Mass/volume] in Blood 4.3 mEq/L POT ASSIUM [place] ([facility]) Note: Responsible Observer: () SGOT/AST 26 U/L SGOT/AST [place] ([facility]) Note: Responsible Observer: () Sodium [Moles/volume] in Serum, Plasma or Blood 141 mEq/L SODIUM [place] ([facility]) Note: Responsible Observer: () SGPT/ALT 45 U/L SGPT/ALT [place] ([facility]) Note: Responsible Observer: () TOTAL BILI 0.7 MG/DL TOTAL BILI [place] ([facility]) Note: Responsible Observer: () TOTAL PROTEIN 7.5 G/DL TOTAL PROTEIN [facility] [facility]) Note: Responsible Observer: () ID Date Data Source [id number] 07/07/2019 02:01:00 PM EST [place] ([facility]) Name Value Range Interpretation Code Description Data Shelly rce(s) Supporting Document(s) Reported Physicians See Note Reported Physici ans [place] ([facility]) Note: Reported Physicians:Ordering: Sandy UMANAending: RACHEL PANIAGUAonsulting: Alex TALAMANTES To: Azeb Young To: RACHEL PANIAGUAopy To: Esha Talamantes ID Date Data Source [id number] 07/07/2019 02:01:00 PM EST ELIZABETH ([facility]) Name Value Range Interpretation Code Description Data Shelly rce(s) Supporting Document(s) CRP-HS 1.00 MG/L CRP-HS [place] ([facility]) Note: [facility]/S HS-CRP CUT-OFF : RELATIVE RISK: <1.0 mg/L Low 1.0 - 3.0 mg/L Average >3.0 mg/L High Optimally, the average of HS-CRP results repeated two weeks apart should be used for risk assessment.Responsible Observer: () ID Date Data Source [id number] 07/07/2019 02:01:00 PM [facility] ([facility]) Name Value Range Interpretation Code Description Data Shelly rce(s) Supporting Document(s) Reported Physicians See Note Reported Physici ans [place] ([facility]) Note: Reported Physicians:Ordering: Sandy UMANAending: YUSEF PANIAGUAANConsulting: JUSTUS TALAMANTESYNCopninfa To: Azeb Young To: YUSEF PANIAGUAANCopy To: Esha Talamantes ID Date Data Source [id number] 07/07/2019 02:01:00 PM [facility] ([facility]) Name Value Range Interpretation Code Description Data Shelly rce(s) Supporting Document(s) CULTURE BLOOD See Note CULTURE BLOOD [place] ([facility]) Note: _CULTURE BLOOD_ TEST P ERFORMED AT [address] [address] CLIA# [id number] SEE SCANNED REPORT{ PRELIMResponsible Observer: (GBT) ID Date Data Source [id number] 07/14/2019 03:40:00 AM [facility] Name Value Range Interpretation Code Description Data Shelly rce(s) Supporting Document(s) CULTURE BLOOD [facility] _CULTURE BLOOD_ TEST PERFORM ED AT [address] [address] CLIA# [id number] SEE SCANNED REPORT{ PRELIM ID Date Data Source [id number] 07/07/2019 04:00:00 PM [facility] Name Value Range Interpretation Code Description Data Shelly rce(s) Supporting Document(s) Erythrocyte sedimentation rate by Westergren method 1 mm/hr 0 - 20 [facility] SED RATE REENTER 1 [facility] ID Date Data Source [id number] 07/07/2019 02:42:00 PM EST [facility] Name Value Range Interpretation Code Description Data Shelly rce(s) Supporting Document(s) COMPREHENSIVE METABOLIC PANEL [facility] COMPREHENSIVE METABOLIC PANEL Sodium [Moles/volume] in Serum or Plasma 141 mEq/L 134 - 153 [facility] Potassium [Moles/volume] in Serum or Plasma 4.3 mEq/L 3.6 - 5.0 [facility] Chloride [Moles/volume] in Serum or Plasma 102 mEq/L 98 - 107 [facility] Carbon dioxide, total [Moles/volume] in Serum or Plasma 24 MEQ/L 22 - 30 [facility] Glucose [Mass/volume] in Serum or Plasma 120 MG/DL 65 - 110 H [facility] BUN 15 MG/DL 7 [facility] Creatinine [Mass/volume] in Serum or Plasma 0.8 MG/DL 0.7 - 1.5 [facility] BUN/CREAT 19 8 - 27 [facility] Protein [Mass/volume] in Serum or Plasma 7.5 G/DL 6.3 - 8.2 [facility] Albumin [Mass/volume] in Serum or Plasma 4.8 G/DL 3.9 - 5.0 [facility] Globulin [Mass/volume] in Serum by calculation 2.7 GM/DL 2.4 - 3.2 [facility] A/G RATIO 1.8 0.8 - 2.0 [facility] Calcium [Mass/volume] in Serum or Plasma 10.6 MG/DL 8.4 - 10.2 H [facility] Bilirubin.total [Mass/volume] in Serum or Plasma 0.7 MG/DL 0.2 - 1.3 [facility] Alkaline phosphatase [Enzymatic activity/volume] in Serum or Plasma 55 U/L 38 - 126 [facility] Aspartate aminotransferase [Enzymatic activity/volume] in Serum or Plasma 26 U/L 5 - 40 [facility] Alanine aminotransferase [Enzymatic activity/volume] in Seru m or Plasma 45 U/L 7 - 56 [facility] Anion gap 3 in Serum or Plasma 15.0 mmol/L 8.0 - 16.0 [facility] AGE 63 yrs [facility] NON-AA GFR >60 mL/min [facility] AFR AMER GFR >60 mL/min [facility] Male GFR In terprentation [...] >32 mL/min Normal ID Date Data Source [id number] 07/07/2019 02:41:00 PM EST [facility] Name Value Range Interpretation Code Description Data Shelly rce(s) Supporting Document(s) CBC W/AUTOMATED DIFF [facility] COMPLETE BLOOD COUNT Leukocytes [#/volume] in Blood by Automated count 11.5 10^3/uL 4.2 - 11.0 H [facility] Erythrocytes [#/volume] in Blood by Automated count 5.23 10^6/uL 4. 50 - 6.30 [facility] Hemoglobin [Mass/volume] in Blood 15.9 g/dL 14.0 - 16.0 [facility] Hematocrit [Volume Fraction] of Blood by Automated count 47.4 % 4 1.0 - 51.0 [facility] Erythrocyte mean corpuscular volume [Entitic volume] by Auto mated count 90.6 fL 80.0 - 94.0 [facility] Erythrocyte mean corpuscular hemoglobin [Entitic mass] by Automated count 30.4 pg 27.0 - 34.0 [facility] Erythrocyte mean corpuscular hemoglobin concentration [Mass/volume] by Automated count 33.5 g/dL 31.0 - 36.0 [facility] Erythrocyte distribution width [Ratio] by Automated count 12.8 % 11.5 - 14.8 [facility] Platelets [#/volume] in Blood by Automated count 217 10^3/uL 150 - 45 0 [facility] Platelet mean volume [Entitic volume] in Blood by Automated count 9.2 fL 7.4 - 10.4 [facility] Neutrophils/100 leukocytes in Blood by Automated count 72.5 % 37. 0 - 80.0 [facility] Lymphocytes/100 leukocytes in Blood by Manual count 17.7 % 25.0 - 40.0 L [facility] Monocytes/100 leukocytes in Blood by Automated count 7.6 % 3.0 - 8.0 [facility] Eosinophils/100 leukocytes in Blood by Automated count 1.6 % 0.0 - 7.0 [facility] Basophils/100 leukocytes in Blood by Automated count 0.3 % 0.0 - 2.0 [facility] %IG 0.3 % 0.0 - 0.[address] [facility] %NRBC 0.0 % 0.0 - 0.0 [facility] al Neutrophils [#/volume] in Blood by Automated count 8.34 10^3/uL 2.00 - 6.90 H [facility] Lymphocytes [#/volume] in Blood by Automated count 2.04 10^3/uL 0.60 - 3.40 [facility] Monocytes [#/volume] in Blood by Automated count 0.87 10^3/uL 0.00 - 0.90 [facility] Eosinophils [#/volume] in Blood by Automated count 0.18 10^3/uL 0.00 - 0.70 [facility] Basophils [#/volume] in Blood by Automated count 0.04 10^3/uL 0.00 - 0.20 [facility] #IG 0.04 10^3/uL 0.00 - 0.10 [facility] #NRBC 0.00 10^3/uL 0.00 - 0.00 [facility] MANUAL DIFF NOT INDICATED [facility] RBC MORPH NOT INDICATED [facility] spital ID Date Data Source [id number] 07/07/2019 02:40:00 PM EST [facility] Name Value Range Interpretation Code Description Data Shelly rce(s) Supporting Document(s) TROPONIN T 0.01 NG/ML 0.00 - 0.10 [facility] spital TROPONIN T0.1 ng/ml Recommended as the c linical threshold value forTroponin T. ID Date Data Source [id number] 07/07/2019 02:40:00 PM [facility] Name Value Range Interpretation Code Description Data [facility] rce(s) Supporting Document(s) C reactive protein [Mass/volume] in Serum or Plasma by High sensitivity method 1.00 MG/L 1.00 - 3.00 [facility] HS-CRP CUT-OFF: RELATIVE RISK: <1.0 mg/L Low 1.0 - 3.0 mg/L Average >3.0 mg/L High Optimally, the average of HS-CRP results repeated two weeks apart should be used for risk assessment. ID Date Data Source [id number] 07/07/2019 02:40:00 PM [facility] Name Value Range Interpretation Code Description Data [facility] rce(s) Supporting Document(s) Prothrombin time (PT) 12.5 SECONDS 11.0 - 15.5 [facility] INR in Platelet poor plasma by Coagulation assay 0.92 0.93 - 1. 23 L [facility] aPTT in Blood by Coagulation assay 27.1 SECONDS 24.8 - 36.7 [facility] \\BLDo\\INR INTERPRETATION\\BLDx\\ Therapeutic range for Coumadin and related oral anticoagulants. - International Normalized Ratio (INR): 2.0 - 3.0 for Venous Thrombosis, Pulmonary Embolus, Tissue heart valves, Acute NH Atrial Fibrillation, Valvular heart disease and recurrent [...] and other interferences. ID Date Data Source [id number] 07/07/2019 02:39:00 PM [facility] Name Value Range Interpretation Code Description Data Shelly rce(s) Supporting Document(s) Lactate [Moles/volume] in Serum or Plasma 3.0 MMOL/L 0.2 - 2.2 H [facility] ID Date Data Source [id number] 06/25/2019 12:00:00 AM EST [place] ([facility]) Name Value Range Interpretation Code Description Data Shelly rce(s) Supporting Document(s) Hemoglobin A1c/Hemoglobin.total in Blood 6.5 Abnormal (applies to non-numeric results) HbA1C [place] ([facility]) ID Date Data Source [id number] 06/25/2019 12:00:00 AM EST [place] ([facility]) Name Value Range Interpretation Code Description Data Shelly rce(s) Supporting Document(s) Glucose [Mass/volume] in Urine collected for unspecified duration 1 16 Normal Glucose [place] ([facility]) Procedure Social History Code Duration Value Status Description Data Source(s ) Smoking 07/02/2020 12:00:00 AM EST Patient is a former smoker completed Patient is a former smoker DALILA ([facility], ) Alcohol intake 05/28/2020 12:00:00 AM EST Yes completed [facility] Cigarette pack-years 05/28/2020 12:00:00 AM EST UNK completed [facility] Cigarettes smoked current (pack per day) - Reported 05/28/20 12:00:00 AM EST UNK completed [facility] Smoking 05/28/2020 12:00:00 AM EST Former smoker completed Former smoker [facility] 04/12/2020 09:42:24 AM EDT Current some day smoker com pleted Current some day smoker [facility] Smoking 04/12/2020 09:42:00 AM EDT Current some day smoker com pleted Current some day smoker [facility] 04/11/2020 05:52:00 PM EDT Current every day smoker co mpleted Current every day smoker [facility] Smoking 04/11/2020 05:52:00 PM EDT Current every day smoker co mpleted Current every day smoker [facility] 05/19/2019 12:00:00 AM EST Cigarette Smoker completed Cig arette Smoker [facility] 05/19/2019 12:00:00 AM EST Current smoker completed Curre nt smoker [facility] Vital Signs ID Date Data Source UNK Name Value Range Interpretation Code Description Data Source(s) Body surface area Derived from formula 2.06 m2 2.06 m2 [facility] ([facility]) Body weight 86.184 kg 86.184 kg [facility] ([facility]) Hiram body weight 172 [lb_av] 172 [lb_av] MEDEN T ([facility]) Body mass index (BMI) [Ratio] 26.5 kg/m2 26.5 k g/m2 [facility] ([facility]) Body weight 190.00 [lb_av] 190.00 [lb_av] MEDEN T ([facility]) Body height 71 [in_i] 71 [in_i] [facility] ([facility]) 5'11" Oxygen saturation in Arterial blood by Pulse oximetry 94 % 94 % [facility] ([facility]) Room Air Heart rate 90 /min 90 /min [facility] ([facility]) Diastolic blood pressure 72 mm[Hg] 72 mm[Hg] [facility] ([facility]) Systolic blood pressure 140 mm[Hg] 140 mm[Hg] [facility] Body surface area Derived from formula 2.03 m2 2.03 m2 [facility] ([facility]) Body weight 82.555 kg 82.555 kg [facility] ([facility]) Hiram body weight 172 [lb_av] 172 [lb_av] MEDEN T ([facility]) Body mass index (BMI) [Ratio] 25.4 kg/m2 25.4 k g/m2 [facility] ([facility]) Body weight 182.00 [lb_av] 182.00 [lb_av] MEDEN T ([facility]) Body height 71 [in_i] 71 [in_i] [facility] ([facility]) 5'11" Oxygen saturation in Arterial blood by Pulse oximetry 93 % 93 % [facility] ([facility]) Room Air Heart rate 86 /min 86 /min [facility] ([facility]) Diastolic blood pressure 70 mm[Hg] 70 mm[Hg] [facility] ([facility]) Systolic blood pressure 130 mm[Hg] 130 mm[Hg] M [facility] ([facility]) Body weight 88.452 kg 88.452 kg [facility] ([facility]) Body weight 195.00 [lb_av] 195.00 [lb_av] MEDEN T ([facility]) Oxygen saturation in Arterial blood by Pulse oximetry 85 % 85 % [facility] ([facility]) 88 ra Heart rate 71 /min 71 /min [facility] ([facility]) Diastolic blood pressure 78 mm[Hg] 78 mm[Hg] [facility] ([facility]) Systolic blood pressure 130 mm[Hg] 130 mm[Hg] [facility] ([facility]) Oxygen saturation in Arterial blood by Pulse oximetry 92 % 92 % [facility] Body mass index (BMI) [Ratio] 26.36 kg/m2 26.36 kg/m2 [facility] Body weight 85.73 kg 85.73 kg [facility] Body height 180.3 cm 180.3 cm [facility] Heart rate 96 /min 96 /min [facility] Diastolic blood pressure 94 mm[Hg] 94 mm[Hg] [facility] Systolic blood pressure 162 mm[Hg] 162 mm[Hg] [facility] Inhaled oxygen concentration 21 % 21 % [place] ([facility]) Inhaled oxygen flow rate 0 L/min 0 L/min [place] ([facility]) Oxygen saturation in Arterial blood by Pulse oximetry 92 % 92 % [place] ([facility]) Body surface area Derived from formula 2.06 m2 2.06 m2 [place] ([facility]) Body mass index (BMI) [Ratio] 26.5 kg/m2 26.5 k g/m2 [place] ([facility]) Body weight 190 [lb_av] 190 [lb_av] [facility] ([facility]) Body height 71 [in_i] 71 [in_i] [place] ([facility]) Body temperature 97.9 [degF] 97.9 [degF] [facility] ([facility]) Respiratory rate 24 /min 24 /min [place] ([facility]) Heart rate 68 /min 68 /min [facility] ([facility]) Diastolic blood pressure 68 mm[Hg] 68 mm[Hg] [place] ([facility]) Systolic blood pressure 128 mm[Hg] 128 mm[Hg] [facility] ([facility]) Inhaled oxygen concentration 21 % 21 % [place] ([facility]) O2 with mask 84% without mask went to 95% Inhaled oxygen flow rate 0 L/min 0 L/min [place] ([facility]) O2 with mask 84% without mask went to 95% Oxygen saturation in Arterial blood by Pulse oximetry 84 % 84 % [place] ([facility]) O2 with mask 84% without mask went to 95% Body surface area Derived from formula 2.07 m2 2.07 m2 [place] ([facility]) O2 with mask 84% without mask went to 95% Body mass index (BMI) [Ratio] 26.6 kg/m2 26.6 k g/m2 [place] ([facility]) O2 with mask 84% without mask went to 95% Body weight 191 [lb_av] 191 [lb_av] [place] ([facility]) O2 with mask 84% without mask went to 95% Body height 71 [in_i] 71 [in_i] [place] ([facility]) O2 with mask 84% without mask went to 95% Body temperature 97.6 [degF] 97.6 [degF] [facility] ([facility]) O2 with mask 84% without mask went to 95% Respiratory rate 24 /min 24 /min [place] ([facility]) O2 with mask 84% without mask went to 95% Heart rate 91 /min 91 /min [place] ([facility]) O2 with mask 84% without mask went to 95% Diastolic blood pressure 82 mm[Hg] 82 mm[Hg] [place] ([facility]) O2 with mask 84% without mask went to 95% Systolic blood pressure 132 mm[Hg] 132 mm[Hg] [facility] ([facility]) O2 with mask 84% without mask went to 95% Inhaled oxygen concentration 21 % 21 % [place] ([facility]) Inhaled oxygen flow rate 0 L/min 0 L/min [place] ([facility]) Oxygen saturation in Arterial blood by Pulse oximetry 94 % 94 % [place] ([facility]) Body surface area Derived from formula 2.07 m2 2.07 m2 [place] ([facility]) Body mass index (BMI) [Ratio] 26.6 kg/m2 26.6 k g/m2 [place] ([facility]) Body weight 191 [lb_av] 191 [lb_av] [place] ([facility]) Body height 71 [in_i] 71 [in_i] [place] ([facility]) Body temperature 97.1 [degF] 97.1 [degF] [facility] ([facility]) Respiratory rate 24 /min 24 /min [place] ([facility]) Heart rate 84 /min 84 /min [place] ([facility]) Diastolic blood pressure 86 mm[Hg] 86 mm[Hg] [place] ([facility]) Systolic blood pressure 134 mm[Hg] 134 mm[Hg] [facility] ([facility]) Inhaled oxygen concentration 21 % 21 % [place] ([facility]) Inhaled oxygen flow rate 0 L/min 0 L/min [place] ([facility]) Oxygen saturation in Arterial blood by Pulse oximetry 97 % 97 % [place] ([facility]) Body surface area Derived from formula 2.10 m2 2.10 m2 [place] ([facility]) Body mass index (BMI) [Ratio] 27.8 kg/m2 27.8 k g/m2 [place] ([facility]) Body weight 199 [lb_av] 199 [lb_av] [facility] ([facility]) Body height 71 [in_i] 71 [in_i] [place] ([facility]) Body temperature 97.8 [degF] 97.8 [degF] [facility] ([facility]) Respiratory rate 24 /min 24 /min ELIZABETH ([facility]) Heart rate 90 /min 90 /min [place] ([facility]) Diastolic blood pressure 78 mm[Hg] 78 mm[Hg] ELIZ[place]ETH ([facility]) Systolic blood pressure 134 mm[Hg] 134 mm[Hg] [facility] ([facility]) Inhaled oxygen concentration 21 % 21 % [place] ([facility]) Inhaled oxygen flow rate 0 L/min 0 L/min [place] ([facility]) Oxygen saturation in Arterial blood by Pulse oximetry 97 % 97 % [place] ([facility]) Body surface area Derived from formula 2.12 m2 2.12 m2 [place] ([facility]) Body mass index (BMI) [Ratio] 28.3 kg/m2 28.3 k g/m2 [place] ([facility]) Body weight 203 [lb_av] 203 [lb_av] ELIZABETH ([facility]) Body height 71 [in_i] 71 [in_i] ELIZABETH ([facility]) Body temperature 97.8 [degF] 97.8 [degF] [facility] ([facility]) Respiratory rate 24 /min 24 /min ELIZ[facility]ETH ([facility]) Heart rate 97 /min 97 /min [place] ([facility]) Diastolic blood pressure 76 mm[Hg] 76 mm[Hg] ELIZABETH ([facility]) Systolic blood pressure 132 mm[Hg] 132 mm[Hg] [facility] ([facility]) Inhaled oxygen concentration 21 % 21 % [place] ([facility]) Inhaled oxygen flow rate 0 L/min 0 L/min [place] ([facility]) Oxygen saturation in Arterial blood by Pulse oximetry 98 % 98 % [place] ([facility]) Body surface area Derived from formula 2.07 m2 2.07 m2 [place] ([facility]) Body mass index (BMI) [Ratio] 26.6 kg/m2 26.6 k g/m2 [place] ([facility]) Body weight 191 [lb_av] 191 [lb_av] [place] ([facility]) Body height 71 [in_i] 71 [in_i] [place] ([facility]) Body temperature 97.8 [degF] 97.8 [degF] [facility] ([facility]) Respiratory rate 24 /min 24 /min [place] ([facility]) Heart rate 86 /min 86 /min [facility] ([facility]) Diastolic blood pressure 72 mm[Hg] 72 mm[Hg] [facility] ([facility]) Systolic blood pressure 124 mm[Hg] 124 mm[Hg] [facility] Patient Treatment Plan of Care Planned Activity Planned Date Details Description Data Source (s) Albuterol 0.833 MG/ML / Ipratropium Hunt 0.167 MG/M L Inhalant Solution 05/20/2020 12:00:00 AM [facility] Metformin hydrochloride 500 MG Oral Tablet 05/20/2020 12:00:00 AM E [facility] Metformin hydrochloride 500 MG Oral Tablet 05/20/2020 12:00:00 AM E [facility]) atorvastatin 20 MG Oral Tablet 05/20/2020 12:00:00 AM [facility]) 60 ACTUAT Budesonide 0.16 MG/ACTUAT / fo rmoterol fumarate 0.0045 MG/ACTUAT Metered Dose Inhaler [Symbicort] 05/20/2020 12:00:00 AM [facility]) 200 ACTUAT Albuterol 0.09 MG/ACTUAT Metered Dose Inhal er [ProAir] 05/20/2020 12:00:00 AM [facility] ([facility]) Lisinopril 5 MG Oral Tablet 05/20/2020 12:00:00 AM [facility]) Triamcinolone Acetonide 1 MG/ML Topical Lotion 05/20/2020 12:00:00 AM [facility]) Lancets Ultra Fine Miscellaneous 05/20/2020 12:00:00 AM [facility] ([facility]) IGlucose Test Strips In Vitro 05/20/2020 12:00:00 AM EST [place] ([facility]) Lisinopril 5 MG Oral Tablet 05/19/2020 12:00:00 AM EST [facility] Lisinopril 5 MG Oral Tablet 05/17/2020 12:00:00 AM EST [place] ([facility]) Prednisone 10 MG Oral Tablet 05/07/2020 12:00:00 AM EST [place] ([facility]) doxycycline hyclate 100 MG Oral Capsule 05/06/2020 12:00:00 AM EST [place] ([facility]) 60 ACTUAT Budesonide 0.16 MG/ACTUAT / fo rmoterol fumarate 0.0045 MG/ACTUAT Metered Dose Inhaler [Symbicort] 04/22/2020 12:00:00 AM [facility]) atorvastatin 20 MG Oral Tablet 04/22/2020 12:00:00 AM EST [facility]) Metformin hydrochloride 500 MG Oral Tablet 04/22/2020 12:00:[address] [facility] ([facility]) Lisinopril 5 MG Oral Tablet 04/22/2020 12:00:00 AM EST [facility]) 200 ACTUAT Albuterol 0.09 MG/ACTUAT Metered Dose Inhal er [ProAir] 04/22/2020 12:00:00 AM [facility] ([facility]) 60 ACTUAT Budesonide 0.16 MG/ACTUAT / fo rmoterol fumarate 0.0045 MG/ACTUAT Metered Dose Inhaler [Symbicort] [facility] Lisinopril 5 MG [facility]t [facility] Albuterol 0.09 MG/ACTUAT Metered Dose Inhal er [ProAir] 10[facility]2019 [facility] atorvastatin 20 MG Oral Tablet 08/20/2019 12:00:00 AM EST [facility]) IGlucose Test Strips In Vitro 08/20/2019 12:00:00 AM [facility] ([facility]) Lancets Ultra Fine Miscellaneous 08/20/2019 12:00:00 AM [facility]) Metformin hydrochloride 500 MG Oral Tablet 08/20/2019 12:00:[address] [place] ([facility]) 60 ACTUAT Budesonide 0.16 MG/ACTUAT / fo rmoterol fumarate 0.0045 MG/ACTUAT Metered Dose Inhaler [Symbicort] 08/20/2019 12:00:00 AM [facility]) 200 ACTUAT Albuterol 0.09 MG/ACTUAT Metered Dose Inhal er [ProAir] 08/20/2019 12:00:00 AM [facility]) Triamcinolone Acetonide 1 MG/ML Topical Lotion 08/20/2019 12:00:00 AM [facility]) Lisinopril 5 MG Oral Tablet 08/20/2019 12:00:00 AM [facility]) 5000 MG Testosterone 0.01 MG/MG Topical Gel [Androgel] 08/20/2019 12:00:00 AM [facility]) atorvastatin 20 MG Oral Tablet 06/25/2019 12:00:00 AM [facility]) Metformin hydrochloride 500 MG Oral Tablet 06/25/2019 12:00:00 AM E [facility] ([facility]) IGlucose Test Strips In Vitro 06/25/2019 12:00:00 AM [facility]) Lancets Ultra Fine Miscellaneous 06/25/2019 12:00:00 AM [facility] ([facility]) 60 ACTUAT Budesonide 0.16 MG/ACTUAT / fo rmoterol fumarate 0.0045 MG/ACTUAT Metered Dose Inhaler [Symbicort] 06/25/2019 12:00:00 AM [facility]) Metformin hydrochloride 500 MG Oral Tablet 05/30/2019 12:00:[address] [place] ([facility]) IGlucose Test Strips In Vitro 01/24/2019 12:00:00 AM EDT [place] ([facility]) Lancets Ultra Fine Miscellaneous 01/24/2019 12:00:00 AM EDT [place] ([facility]) Triamcinolone Acetonide 1 MG/ML Topical Lotion 01/24/2019 12:00:00 AM EDT [place] ([facility]) Metformin hydrochloride 500 MG Oral Tablet 01/24/2019 12:00:00 AM E [place] ([facility]) atorvastatin 20 MG Oral Tablet 01/24/2019 12:00:00 AM EDT [place] ([facility]) 30 ACTUAT fluticasone furoate 0.1 MG/ACT UAT / vilanterol 0.025 MG/ACTUAT Dry Powder Inhaler [Breo] 01/24/2019 12:00:00 AM EDT [place] ([facility]) 200 ACTUAT Albuterol 0.09 MG/ACTUAT Metered Dose Inhal er [ProAir] 01/24/2019 12:00:00 AM EDT [place] ([facility]) pantoprazole 40 MG Delayed Release Oral Tablet 04/16/2016 12:00:00 AM EDT [facility] atorvastatin 40 MG Oral Tablet 10/10/2014 12:00:00 AM EDT [facility] 200 ACTUAT Levalbuterol 0.045 MG/ACTUAT Metered Dose I nhaler [Xopenex] 04/23/2014 12:00:00 AM EST [facility] Cholecalciferol 2000 UNT Oral Capsule [facility] Nitroglycerin 0.4 MG Sublingual Tablet [facility] DAILY DIONNE (THERAGRAN) per tablet [facility] ALBUTEROL IN [facility] 24 HR metoprolol succinate 25 MG Extended Release Oral Tablet [facility] Aspirin 325 MG Oral Tablet [facility]
--- NOTE | 2020-07-15 10:33 | REP ---
INDICATION: DYSPNEA/COUGH COMPARISON: 07/04/2020 TECHNIQUE: Portable AP view of the chest FINDINGS: Right chest tube in stable position and the previously noted right hydropneumothorax demonstrates decreased gas with small but slightly increased pleural fluid. Right basilar atelectasis is also suggested. [id number] identified with tip in the SVC. Mediastinum and cardiac silhouette stable. Stable diffuse emphysematous changes again noted. Left hemithorax is relatively clear. Skeletal structures are intact. IMPRESSION: Small right basilar pleural effusion which may be slightly increased from prior examination although the previously noted right pneumothorax appears resolved. Remainder of exam as above. <Electronically signed by Ashok Mills > 07/15/20 1028
[2020-07-15 10:54] LABS: BASO % 0.5 % (0.0-1.0); EOS # 0.1 10^3/uL (0.0-0.5); EOS % 2.1 % (0.0-3.0); HEMATOCRIT 36.5 % (42.0-52.0); HEMOGLOBIN 11.7 g/dl (13.5-17.5); LYMPH # 1.1 10^3/uL (1.5-5.0); LYMPH % 26.8 % (24.0-44.0); MEAN CORPUSCULAR HEMOGLOBIN 28.6 pg (27.0-33.0); MEAN CORPUSCULAR HGB CONC 32.1 g/dl (32.0-36.5); MEAN CORPUSCULAR VOLUME 89.2 fl (80.0-96.0); MONO # 0.5 10^3/uL (0.0-0.8); MONO % 10.7 % (0.0-5.0); NEUTROPHILS # 2.5 10^3/uL (1.5-8.5); NEUTROPHILS % 59.4 % (36.0-66.0); PLATELET COUNT, AUTOMATED 230 10^3/uL (150-450); RED BLOOD COUNT 4.09 10^6/uL (4.30-6.10); WHITE BLOOD COUNT 4.2 10^3/uL (4.0-10.0)
[2020-07-15 11:26] LABS: ALBUMIN 2.8 GM/DL (3.2-5.2); ALT/SGPT 29 U/L (12-78); BILIRUBIN,DIRECT 0.1 MG/DL (0.0-0.2); BILIRUBIN,TOTAL 0.3 MG/DL (0.2-1.0); BLOOD UREA NITROGEN 12 MG/DL (7-18); CALCIUM LEVEL 9.1 MG/DL (8.8-10.2); CARBON DIOXIDE LEVEL 27 MEQ/L (21-32); CHLORIDE LEVEL 104 MEQ/L (98-107); CK-MB VALUE MASS 1.6 NG/ML (<3.6); CPK CREATINE PHOSPHOKINASE 45 U/L (39-308); CREATININE FOR GFR 0.75 MG/DL (0.70-1.30); GLOMERULAR FILTRATION RATE > 60.0 (>49); GLUCOSE, FASTING 200 MG/DL (70-100); MB/CK RELATIVE INDEX 3.56 (< OR =4); NT-PRO BNP 296 PG/ML (<125); POTASSIUM SERUM 4.5 MEQ/L (3.5-5.1); SODIUM LEVEL 140 MEQ/L (136-145); THYROXINE (T4) 9.3 UG/DL (4.5-12.0); TOTAL PROTEIN 5.8 GM/DL (6.4-8.2); TROPONIN I < 0.02 NG/ML (< 0.10)
[2020-07-15] MEDS ORDERED: NS 1,000 ML IV ONE (12:00)
[2020-07-15] MEDS ORDERED: NYST50SS PO (12:43)
[2020-07-15 14:12] VITALS: BP 140/85
--- NOTE | 2020-07-15 14:52 | ECGEPIP ---
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
== END 2020-07-15 14:44 | disposition home or self-care (01) ==
LOC: M ED 08:10
DX: B37.81 Candidal esophagitis (principal); B37.0 Candidal stomatitis; E11.9 Type 2 diabetes mellitus without complications; I10 Essential (primary) hypertension; I48.91 Unspecified atrial fibrillation; J44.9 Chronic obstructive pulmonary disease, unspecified; Z91.013 Allergy to seafood

== ENCOUNTER → 2020-07-20 | Outpatient (CLI) | payer OTHER ==
[~2020-07-20] MED LIST changes: +LISI-542 PO; -LISI-898 PO; +NYST50SS PO
--- NOTE | 2020-07-23 00:44 | ECWPNPC ---
PATIENT NAME: TOLU PINK : 1955 GENDER: MALE VISIT DATE: 07/20/2020 DISCHARGE DATE: 07/20/20930 VISIT LOCKED DATE TIME: PHYSICIAN: HIRAM SILVA RESOURCE: HIRAM SILVA REASON FOR APPOINTMENT 1. PAIN MANAGEMENT HISTORY OF PRESENT ILLNESS DEPRESSION SCREENING: PHQ-9 LITTLE INTEREST OR PLEASURE IN DOING THINGSMORE THAN HALF THE DAYS FEELING DOWN, DEPRESSED, OR HOPELESSMORE THAN HALF THE DAYS TROUBLE FALLING OR STAYING ASLEEP, OR SLEEPING TOO MUCHNEARLY EVERY DAY FEELING TIRED OR HAVING LITTLE ENERGYNEARLY EVERY DAY POOR APPETITE OR OVEREATING MORE THAN HALF THE DAYS FEELING BAD ABOUT YOURSELF-OR THAT YOU ARE A FAILURE OR HAVE LET YOURSELF OR YOUR FAMILY DOWN NOT AT ALL TROUBLE CONCENTRATING ON THINGS, SUCH READING THE NEWSPAPER OR WATCHING TELEVISION NOT AT ALL MOVING OR SPEAKING SO SLOWLY THAT OTHER PEOPLE COULD HAVE NOTICED. OR THE OPPOSITE- BEING SO FIDGETY OR RESTLESS THAT YOU HAVE BEEN MOVING AROUND A LOT MORE THAN USUALNOT AT ALL THOUGHTS THAT YOU WOULD BE BETTER OFF , OR OF HURTING YOURSELF IN SOME WAY?NOT AT ALL TOTAL SCORE:12 INTERPRETATIONMODERATE DEPRESSION PHQ-2 (2015 EDITION) LITTLE INTEREST OR PLEASURE IN DOING THINGS?MORE THAN HALF THE DAYS FEELING DOWN, DEPRESSED, OR HOPELESS?MORE THAN HALF THE DAYS TOTAL SCORE4 GENERAL: 64-YEAR-OLD GENTLEMAN BEING REFERRED BY [facility] TO EVALUATE PERSISTENT BACK PAIN AND CHEST TUBE SITE PAIN. HISTORY OF STAGE IV LUNG CANCER. CURRENTLY USING HYDROCODONE 5/325 PERIODICALLY WHEN HE DRAINS HIS CHEST TUBE WHICH HE FINDS HELPFUL AT REDUCING PAIN. CURRENTLY BEING FOLLOWED BY [facility] AND IS RECEIVING HYDROCODONE THROUGH THEIR OFFICE. THEY ARE ALSO RECOMMENDING MEDICAL MARIJUANA. PATIENT IS HAPPY WITH THIS PAIN MANAGEMENT PLAN. I'VE ADVISED HIM TO CONTINUE WITH PALLIATIVE CARE FOR PAIN CONTROL. HE IS WELCOME TO COME BACK HERE IF HIS PAIN IS UNCONTROLLED AT ANY POINT IN TIME. - - -. FALL RISK SCREENING: SCREENING :ONE FALL WITHOUT INJURY IN THE PAST YEAR PATIENT STATES HE SLIPPED ON ICE. PAIN SCREENING: PATIENT HAS A COMPLAINT OF ACUTE OR CHRONIC PAIN :YES LOCATION OF PAIN:ABDOMEN, MID BACK RIGHT MID-BACK, FLANK, AND ABDOMEN INTENSITY OF PAIN (SCALE OF 1 TO 10):5 WHAT DOES YOUR PAIN FEEL LIKE:ACHING, SHOOTING DURATION:CONTINOUS, CONSTANT PAIN IS INCREASED BY:ACTIVITIES, OTHERS BENDING OVER, WALKING PAIN IS DECREASED BY:USE OF PAIN MEDICATIONS, OTHERS ALEVE, HYDROCODONE WHEN DRAINING THE LUNG NURSING NOTE: - - -. PAIN CENTER INTAKE QUESTIONS: DO YOU HAVE A HISTORY OF MRSA? :NO DO YOU TAKE A BLOOD THINNERS? :YES ELIQUIS DO YOU HAVE ANY BLEEDING DISORDERS? :NO ANY NEW NUMBNESS OR WEAKNESS IN YOUR LEGS OR ARMS? :YES RIGHT HAND WEAKNESS ANY PACEMAKER,DEFIBRILLATOR, OR DORSAL COLUMN STIMULATOR? :NO DO YOU HAVE ANY RASHES OR OPEN SORES? :NO ARE YOU ALLERGIC TO IV DYE? :NO ARE YOU DIABETIC? :YES TAKES METFORMIN ANY NEW PROBLEMS WITH YOUR MEDICATIONS? :NO HAVE YOU RECEIVED A VACCINE IN THE PAST 30 DAYS? :NO DO YOU PLAN TO RECEIVE A VACCINE IN THE NEXT 21 DAYS? :NO DO YOU NEED ANY PRESCRIPTION? :NO DO YOU TAKE ANY IMMUNOSUPPRESSIVE MEDICATIONS? :YES DEXAMETHASONE CURRENT MEDICATIONS TAKING OLANZAPINE 10 MG TABLET 1 TABLET ORALLY ONCE A DAY TAKING ONDANSETRON 8 MG TABLET DISINTEGRATING 1 TABLET ON THE TONGUE AND ALLOW TO DISSOLVE NEEDED ORALLY ONCE A DAY TAKING DEXAMETHASONE 4 MG TABLET 1 TABLET ORALLY ONCE A DAY TAKING FOLIC ACID 1 MG TABLET 1 TABLET ORALLY ONCE A DAY TAKING ACETAMINOPHEN 325 MG CAPSULE 1 CAPSULE NEEDED ORALLY EVERY 6 HRS TAKING PANTOPRAZOLE SODIUM 40 MG TABLET DELAYED RELEASE 1 TABLET ORALLY ONCE A DAY TAKING DOCUSATE SODIUM 100 MG CAPSULE 1 CAPSULE NEEDED ORALLY BID TAKING APIXABAN 5 MG TABLET 1 TAB ORALLY BID TAKING HYDROCODONE-ACETAMINOPHEN 5-325 MG TABLET 1 TABLET NEEDED ORALLY EVERY 6 HRS TAKING ALBUTEROL SULFATE HFA 108 (90 BASE) MCG/ACT AEROSOL SOLUTION 2 PUFFS NEEDED INHALATION EVERY 4 HRS TAKING LISINOPRIL 5 MG TABLET 1 TABLET ORALLY ONCE A DAY TAKING IPRATROPIUM-ALBUTEROL 0.5-2.5 (3) MG/3ML SOLUTION 3 ML NEEDED INHALATION EVERY 6 HRS TAKING METFORMIN HCL 500 MG TABLET 1 TABLET WITH A MEAL ORALLY ONCE A DAY TAKING MULTIVITAMIN - TABLET 1 TABLET ORALLY ONCE A DAY TAKING NAPROXEN 220 MG TABLET 2 TABLETS WITH FOOD OR MILK NEEDED ORALLY EVERY 12 HRS TAKING INCRUSE ELLIPTA 62.5 MCG/INH AEROSOL POWDER BREATH ACTIVATED 1 PUFF INHALATION ONCE A DAY TAKING ATORVASTATIN CALCIUM 20 MG TABLET 1 TABLET ORALLY ONCE A DAY TAKING SYMBICORT 160-4.5 MCG/ACT AEROSOL 2 PUFFS INHALATION TWICE A DAY TAKING ASPIRIN 81 MG TABLET CHEWABLE 1 TABLET ORALLY ONCE A DAY UNKNOWN METOPROLOL SUCCINATE UNKNOWN VENTOLIN HFA 108 (90 BASE) MCG/ACT AEROSOL SOLUTION 2 PUFFS NEEDED INHALATION EVERY 4 HRS UNKNOWN DOXYCYCLINE MONOHYDRATE 100 MG CAPSULE 1 CAPSULE ORALLY EVERY 12 HRS UNKNOWN PREDNISONE 20 MG TABLET 1 TABLET ORALLY BID MEDICATION LIST REVIEWED AND RECONCILED WITH THE PATIENT PAST MEDICAL HISTORY DIABETES COPD ATRIAL FIBRILLATION HYPERTENSION DVT PULMONARY EMBOLISM STAGE IV LUNG CANCER - FLUID BUILD-UP CHRONIC PAIN ALLERGIES SHELLFISH: ANAPHYLAXIS - ALLERGY SURGICAL HISTORY NECK SURGERY LEFT SHOULDER SURGERY LEFT CARPAL TUNNEL SURGERY CHEMO PORT PLACEMENT CHEST TUBE PLACEMENT FAMILY HISTORY FATHER: , DIAGNOSED WITH OTHER SPECIFIED CONDITIONS INFLUENCING HEALTH STATUS MOTHER: 2 BROTHER(S) , 5 SISTER(S) . 1DAUGHTER(S) . FATHER- CADMOTHER- BRAIN ANEURYSM, DIABETESBROTHER - A. FIBDAUGHTER - THYROID. SOCIAL HISTORY GENERAL: TOBACCO USE ARE YOU A:FORMER SMOKER 15 YEARS TOTAL, QUIT ONCE DIAGNOSED WITH CANCER HOW LONG HAS IT BEEN SINCE YOU LAST SMOKED?1-3 MONTHS LATEX QUESTIONNAIRE LATEX ALLERGY : HAVE YOU EVER DEVELOPED ANY TYPE OF REACTION AFTER HANDLING LATEX PRODUCTS SUCH RUBBER GLOVES, CONDOMS, DIAPHRAGMS, BALLOONS, SOCKS, OR UNDERWEAR?NO LATEX ALLERGY : HAVE YOU EVER DEVELOPED ANY TYPE OF REACTION DURING OR AFTER DENTAL APPOINTMENT, VAGINAL/RECTAL EXAMINATION, SURGICAL PROCEDURE, OR ANY OTHER EXPOSURE?NO LATEX RISK : HAVE YOU EVER HAD ANY DIFFICULTY BREATHING OR HIVES AFTER EATING OR HANDLING ANY FRUITS, OR VEGETABLES; SUCH KIWI, BANANAS, STONE FRUITS, OR CHESTNUTSNO LATEX RISK : DO YOU HAVE A PREVIOUS PERSONAL HISTORY OF MORE THAN NINE SURGERIES, SPINA BIFIDA, OR REPEATED CATHERIZATIONS? NO LATEX RISK : ARE YOU FREQUENTLY EXPOSED TO LATEX PRODUCTS IN YOUR OCCUPATION?NO DATE ASKED : 07/20/2020 ALCOHOL USE: YES, 12 PACK/ WEEK. RECREATIONAL DRUG USE DRUG USE?NO SEEN BY PALLIATIVE CARE - CONSIDERING MEDICAL MARIJUANA HIV / HEP-C SCREENING HIV TEST OFFERED TO PATIENT:YES DATE OFFERED:04/20/2017 TEST ACCEPTED:NO HEP-C TEST OFFERED TO PATIENT:YES DATE OFFERED:04/20/2017 REASON:PATIENT DECLINED TEST ACCEPTED:NO REASON:PATIENT DECLINED LEARNING BARRIERS / SPECIAL NEEDS BARRIERS TO LEARNING?NO HEARING IMPAIRED?NO VISION IMPAIRED?YES RIGHT EYE BLURRY COGNITIVELY IMPAIRED?NO READINESS TO LEARN?YES LEARNING PREFERENCES?NO LEARNING CAPABILITIES PRESENT?YES EMOTIONAL BARRIERS?NO SPECIAL DEVICES?NO CSR TECHNICIAN NEEDED?NO HOSPITALIZATION/MAJOR DIAGNOSTIC PROCEDURE SURGERY RELATED DIFFICULTY BREATHING REVIEW OF SYSTEMS CONSTITUTIONAL: ANY RECENT FEVER NO . CHILLS NO . WEIGHT CHANGE OF UNKNOWN REASONS NO . GASTROENTEROLOGY: NEW UNEXPLAINABLE CHANGES IN BOWEL CONTROL NO . CONSTIPATION NO . GENITOURINARY: ANY NEW CHANGE IN BLADDER CONTROL? NO . NEUROLOGY: NEW ONSET DIZZINESS OR NEUROLOGICAL CHANGES NOT MENTIONED NO . NEW NUMBNESS OR PAIN PATTERNS NOT MENTIONED AND PERTINENT TO TODAY'S VISIT NO . CARDIOLOGY: NEW CHEST PRESSURE NO . NEW CHEST PAIN NO . RESPIRATORY: UNEXPLAINABLE COUGH NO . NEW SHORTNESS OF BREATH NO . VITAL SIGNS WT 194.6 LBS, HT 71 IN, BMI 27.14 INDEX, BP 177/83 MM HG, REPEAT BP 180/100 MANUAL, HR 86 /MIN, RR 22 /MIN, TEMP 97.6 F, OXYGEN SAT % 95%, SAFE IN ENV? (Y/N) YES, REVIEWED BY: JSJ. GIAN RNDISCUSSED ELEVATED BP WITH PATIENT. HE TAKES LISINOPRIL WHICH HE STATES HE DID TAKE THIS MORNING. STATES HE IS FEELING OK. HIRAM SILVA NOTIFIED. Azra SPRINGER RN. EXAMINATION GENERAL EXAMINATION: GENERALAWAKE,ALERT ,PLEASANT . PSYCHAFFECT NORMAL . LUNGS:LUNG [place] ARE CLEAR TO AUSCULTATION BILATERALLY. GOOD MOVEMENT OF AIR . HEART:S1, S2 IN A REGULAR RATE AND RHYTHM. NO SIGNIFICANT MURMURS, RUBS OR GALLOPS NOTED . ASSESSMENTS OTHER ACUTE POSTPROCEDURAL PAIN - G89.18 (PRIMARY) OTHER CHEST PAIN - R07.89 TREATMENT OTHER ACUTE POSTPROCEDURAL PAIN NOTES: ADVISED TO CONTINUE CARE FOR PAIN CONTROL WITH [facility] WHICH HE IS CURRENTLY BEING FOLLOWED.MAY CONTACT US FOR F/U IF PAIN IS NOT CONTROLLED IN FUTURE. OTHERS NOTES: POSITIVE DEPRESSION SCREEN. DISCUSSED WITH PATIENT. HE DOES NOT TAKE ANY DEPRESSION MEDICATIONS. DOES NOT FEEL THAT HE WILL HURT HIMSELF OR OTHERS. HIRAM SILVA NOTIFIED. Azra SPRINGER RN . PROCEDURE CODES FA211 ESTABILISHED PATIENT [facility] CHARGE DISPOSITION & COMMUNICATION FOLLOW UP PATIENT WILL CONTACT US FOR F/U IF NEEDED (REASON: RIGHT CHEST WALL PAIN/CHEST TUBE DRAINAGE AREA) ELECTRONICALLY SIGNED BY STONEY BETANCOURT ON 07/22/2020 AT 09:14 AM EST DISCLAIMER : THIS IS A VISIT SUMMARY EXTRACTED FROM THE [employer] CHART. IT IS NOT A COPY OF THE [employer] PROGRESS NOTE. CAMILO
== END ==
LOC: M PAIN 08:30
PROVIDERS: ATTEND Nurse Practitioner Family
DX: G89.18 Other acute postprocedural pain (principal); R07.89 Other chest pain; E11.9 Type 2 diabetes mellitus without complications; J44.9 Chronic obstructive pulmonary disease, unspecified; Z86.711 Personal history of pulmonary embolism; Z86.718 Personal history of other venous thrombosis and embolism; Z87.891 Personal history of nicotine dependence; Z91.013 Allergy to seafood; Z79.01 Long term (current) use of anticoagulants; Z79.51 Long term (current) use of inhaled steroids; Z79.82 Long term (current) use of aspirin; Z79.84 Long term (current) use of oral hypoglycemic drugs; Z79.899 Other long term (current) drug therapy

== ENCOUNTER 2020-07-31 22:32 | Emergency (ER) | payer OTHER ==
[~2020-07-31] VITALS: Ht 180.3 cm; Wt 86.4 kg
[~2020-07-31 22:32] MED LIST changes: -LISI-542 PO; +LISI-898 PO
--- OUTSIDE RECORDS SUMMARY | 2020-07-31 22:38 | CCD ---
Author Author [facility] Organization [facility] Address Unknown Phone Unavailable Care Team Providers Care Fiber Optic Assembler Name Role Phone Ilda Forbes Unavailable PROBLEMS Type Condition ICD9-CM Code [id number] Code Onset Dates Condition S tatus W/U Status Risk SNOMED Code Notes Problem Lung nodule R91.1 Active confirmed 24143825 2 Problem COPD exacerbation J44.1 Active confirmed 19 7200978 Problem Nodule of right lung R91.1 Active confirmed 134698628 Problem Bullous emphysema J43.9 Active confirmed 19 2060334 ALLERGIES Allergen (clinical drug ingredient) Drug/Non Drug Allergy do cumented on EMR Reaction Allergy Type Onset Date Status shellfish Anaphylaxis Non Drug Allergy Active ENCOUNTERS from 1955 to 2020-07-23 Encounter Location Date Provider Diagnosis [facility] [address] [place] [id number] Jul, Ilda Forbes Other acute postprocedural pain G89.18 a nd Other chest pain R07.89 IMMUNIZATIONS Vaccine Route Administration Date Status Influenza (6mo & up) Fluzone Unknown Apr 20, 2017 Oth ers SOCIAL HISTORY Tobacco Use: Social History Observation Description Date Details (start date - stop date) Former Smoker Sex Assigned At : Social History Observation Description Sex Assigned At Unknown Tobacco Use: Question Answer Notes Are you a: former smoker 15 years total, quit once diagnosed with cancer How long has it been since you last smoked? 1-3 months REASON FOR REFERRAL No Information VITAL SIGNS Weight 194.6 lbs Jul, Height 71 in Jul, BMI 27.14 kg/m2 Jul, Heart Rate 86 /min Jul, Respiratory Rate 22 /min Jul, Temperature 97.6 degrees Fahrenheit Jul, Oximetry 95% Jul, Blood pressure systolic 177 mm Hg Jul, Blood pressure diastolic 83 mm Hg Jul, MEDICATIONS Medication SIG (Take, Route, Frequency, Duration) Notes Start Da te End Date Status Metformin HCl 500 MG 1 tablet with a meal Orally Once a day for 30 da y(s) Active Ondansetron 8 MG 1 tablet on the tongue and a llow to dissolve as needed Orally Once a day for 30 day(s) Active Incruse Ellipta 62.5 MCG/INH 1 puff Inhalation Once a day Active Naproxen 220 MG 2 tablets with food or milk as needed Orally every 12 hrs Active Olanzapine 10 MG 1 tablet Orally Once a day for 30 day(s) Active Folic Acid 1 MG 1 tablet Orally Once a day for 30 day(s) Active Albuterol Sulfate HFA 108 (90 Base) MCG/ACT 2 puffs as needed Inhalation every 4 hrs Active Multivitamin - 1 tablet Orally Once a day for 30 day(s) Active Docusate Sodium 100 MG 1 capsule as needed Orally bid Active Atorvastatin Calcium 20 MG 1 tablet Orally Once a day Active Symbicort 160-4.5 MCG/ACT 2 puffs Inhalation Twice a day Active PredniSONE 20 MG 1 tablet Orally bid for 5 day(s) Apr, Unknown Ipratropium-Albuterol 0.5-2.5 (3) MG/3ML 3 ml as needed Inha lation every 6 hrs Active Aspirin 81 MG 1 tablet Orally Once a day Active Doxycycline Monohydrate 100 MG 1 capsule Orally every 12 hrs for 7 day(s) Apr, Unknown Metoprolol Succinate Unkn own Ventolin HFA 108 (90 Base) MCG/ACT 2 puffs as needed Inhalation shira ry 4 hrs Unknown Lisinopril 5 MG 1 tablet Orally Once a day for 30 day(s) Active Pantoprazole Sodium 40 MG 1 tablet Orally Once a day for 30 day(s) Active Acetaminophen 325 MG 1 capsule as needed Orally every 6 hrs Active Apixaban 5 MG 1 tab Orally bid Activ e Hydrocodone-Acetaminophen 5-325 MG 1 tablet as needed Orally every 6 hrs Active Dexamethasone 4 MG 1 tablet Orally Once a day for 30 day(s) Active PROCEDURES No Information RESULTS No Results REASON FOR VISIT PAIN MANAGEMENT MEDICAL (GENERAL) HISTORY Type Description Date Medical History diabetes Medical History COPD Medical History ATRIAL FIBRILLATION Medical History Hypertension Medical History DVT Medical History pulmonary embolism Medical History Stage IV Lung Cancer - Fluid Build-up Medical History Chronic Pain Surgical History Neck Surgery Surgical History Left shoulder surgery Surgical History left carpal tunnel surgery Surgical History Chemo Port Placement Surgical History Chest Tube Placement Hospitalization History Surgery Related Hospitalization History Difficulty Breathing Goals Section No Information Health Concerns No Information MEDICAL EQUIPMENT No Information MENTAL STATUS No Information FUNCTIONAL STATUS No Information ASSESSMENTS Encounter Date Diagnosis Assessment Notes Treatment Notes Treatm ent Clinical Notes Jul, Other acute postprocedural pain (ICD-10 - G89.18 ) Advised to continue care for pain control with [facility] which he is currently being followed.May contact us for f/u if pain is not controlled in future. Jul, Other chest pain (ICD-10 - R07.89) Jul, Other Positive depress ion screen. Discussed with patient. He does not take any depression medications. Does not feel that he will hurt himself or others. Ilda Forbes notified. Azra Fernandez RN PLAN OF TREATMENT Treatment Notes Assessment Notes Clinical Notes Other acute postprocedural pain Advised to continue ca re for pain control with [facility] which he is currently being followed.May contact us for f/u if pain is not controlled in future. Next Appt Details patient will contact us for f/u if neede d Reason:right chest wall pain/chest tube drainage area Follow Up:patient will contact us for f/u if neededright chest wall pain/chest tube drainage area Insurance Providers Payer Name Payer Address Payer Phone Insured Name Patient Relati onship to Insured Coverage Start Date Coverage End Date [facility] [employer] DEPT [facility] [phone] [phone] TOLU PINK self
--- OUTSIDE RECORDS SUMMARY | 2020-07-31 22:38 | CCD | Continuity of Care Document ---
Author Jamil Bermudez M.D. Organization Unknown Address [address] [place] [address] Phone [phone] Care Team Providers Care Development Advisor Name Role Phone Arelis Nelson M.D. [facility] [phone] [facility] Unavailable Problems Active Problems Provider Date Type 1 diabetes mellitus Ousmane Bethea M.D. Onset: 021 Social History Type Date Description Comments Sex Unknown Tobacco Use Start: Unknown End: Patient is a former smoker hx 10 cigarettes daily x 15 years; quit 2019 Smoking Status Reviewed: 07/16/20 Patient is a former smoker hx 10 cigarettes daily x 15 years; quit 2019 Allergies, Adverse Reactions, Alerts Active Allergies Reaction Severity Comments Date Shellfish-Derived Products 1 08/02/2019 Medications Active Medications SIG Qnty Indications Ordering Provide r Date Incruse Ellipta 62.5mcg/Inh Aeroso l 1 puff every day 30units Kike Amaro MD 06/01/2020 Folic Acid 1mg Tablets 1 tab by mouth every day Unknown Decadron 4mg Tablets 1 tab by mouth every day day before, day of, and day after chemo Unkn own Olanzapine 10mg Tablets 1 tab by mouth as needed Unknown Lorazepam 0.5mg Tablets 1 tab by mouth twice a day Unknown Ondansetron 8mg Tablets Dispers 1 tab by mouth every 6 hours as needed Unknown Hydrocodone-Acetaminophen 5-325mg Tablets 1 tab by mouth every 6 hours as needed Unknown Nystatin [id number]/ML Suspension 5 ml by mouth four times a days swish and swallow Unknow n Albuterol Sulfate (2 .5mg/3ML) 0.083% Nebulizer 1 vial via nebulizer every 4 hours as needed Unknown Multivitamin Adult Tablets 1 tab by mouth every day Unknown Aspirin [address] 1 tab by mouth every day Unknown Acetaminophen 500mg Tablets 2 tab by mouth as needed Unknown Pantoprazole Sodium 40mg Tablets D R 1 tab by mouth every day Unknown Docusate Sodium 100mg Capsules 1 tab by mouth twice a day Unknown Eliquis 5mg Tablets 1 tab by mouth twice a day [facility] [place] Unknown Oxygen Device 2 L as needed managed through PCP Unknown Lisinopril 5mg Tablets 1 by mouth every day Unknown Albuterol Sulfate HFA 108(90Base) mcg/Act Aerosol inhale two puffs by mouth four times a day as needed 17gm Unknown Atorvastatin Calcium 20mg Tablets 1 tab by mouth every day Unknown Metformin HCL 500mg Tablets 1 tab by mouth twice a day Unknown Symbicort 160-4.5mcg/Act Aerosol 2 puff twice a day 10.200gm Unknown History Medications Prednisone 10mg Tablets 40mg po qd x 4 days then 30mg qd x 4 days then 20mg qd x 4 days then 10mg qd x 4 days and stop 40tabs Kike Amaro MD 06/01/2020 - 020 Immunizations Description No Information Available Vital Signs Date Vital Result Comment 07/16/2020 10:48am BP Systolic 120 mmHg BP Diastolic 60 mmHg Heart Rate 74 /min O2 % BldC Oximetry 96 % Room Air Height 71 inches 5'11" Weight 187.00 lb BMI (Body Mass Index) 26.1 kg/m2 [place] Body Weight 172 lb Weight 84.823 kg BSA (Body Surface Area) 2.05 m2 07/02/2020 9:40am BP Systolic 140 mmHg BP Diastolic 72 mmHg Heart Rate 90 /min O2 % BldC Oximetry 94 % Room Air Height 71 inches 5'11" Weight 190.00 lb BMI (Body Mass Index) 26.5 kg/m2 [place] Body Weight 172 lb Weight 86.184 kg BSA (Body Surface Area) 2.06 m2 Results Description No Information Available Procedures Date Code Description Status 06/08/2020 37865 Insertion Of Indwelling Tunneled Pleural Catheter W/Cuff Completed 06/01/2020 42906 Inhaler Teaching Completed Medical Devices Description No [...] y disease, unspecified Office Visit 06/13/2020 1:23a [facility] Zena Bethea M.D. 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 C34.11 Malignant neoplasm of upper lobe, right bronchus or lung J91.0 Malignant pleural effusion J44.9 Chronic obstructive pulmonar y disease, unspecified I10 Essential (primary) hyperten iglesia Office Visit 06/09/2020 1:23a [facility] Zena Bethea M.D. C34.11 Malignant neoplasm of upper lobe, right bronchus or lung J91.0 Malignant pleural effusion J44.9 Chronic obstructive pulmonar y disease, unspecified I10 Essential (primary) hyperten iglesia Office Visit 06/08/2020 1:23a [facility] R debi Bethea M.D. J90 Pleural effusion, not elsewh ere classified I26.94 Mult subsegmental pulmon emb aj without acute cor pulmonale J44.9 Chronic obstructive pulmonar y disease, unspecified E11.9 Type 2 diabetes mellitus wit hout complications Office Visit 06/01/2020 10:00a [facility] Madelyn Amaro MD R91.1 Solitary [...] M.D. 06/10/2020 J44.9 Chronic obstructive pulmonary di maksim, unspecified Ousmane Bethea M.D. 06/10/2020 I10 Essential (primary) hypertension Ousmane Bethea M.D. 06/09/2020 C34.11 Malignant neoplasm of upper lobe , right bronchus or lung Ousmane Bethea M.D. 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 06/09/2020 J44.9 Rodrick obstructive pulmonary di maksim, unspecified Ousmane Bethea M.D. 06/09/2020 I10 Essential (primary) hypertension Ousmane Bethea M.D. 06/08/2020 J90 Pleural effusion, not elsewhere classified Ousmane Bethea M.D. 06/08/2020 I26.94 Multiple subsegmenta l pulmonary emboli without acute cor pulmonale Ousmane Bethea M.D. 06/08/2020 J44.9 Chronic obstructive pulmonary di sease, unspecified Ousmane Bethea M.D. 06/08/2020 E11.9 Type 2 diabetes mellitus without complications Ousmane Bethea M.D. 06/01/2020 R91.1 Solitary pulmonary nodule Rianella Amaro MD 06/01/2020 J43.9 Emphysema, unspecified Kike Amaro MD 06/01/2020 J96.11 Chronic respiratory failure with hypoxia Kike Amaro MD 06/01/2020 Z99.81 Dependence on supplemental oxyge n Kike Amaro MD 06/01/2020 Z87.891 Personal history of nicotine dep endence Kike Amaro MD Plan of Treatment No Information Available Functional Status Description No Information Available Mental Status Description No Information Available Referrals Refer to Reason for Referral Status Appt Date Kike Amaro M.D. [id number] PET SCAN @[facility] Created [facility] [address] [place], [place] [id number] [phone]
--- OUTSIDE RECORDS SUMMARY | 2020-07-31 22:40 | CCD ---
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 Care Pulverizer Operator Name Role Phone Susan Talamantes MD Unavailable Unavailable Vinita, Susan Balbuena MD Unavailable Unavailable [place]inita, Susan Balbuena MD Unavailable Unavailable [place]inita, Susan Balbuena MD Unavailable Unavailable [place]inita, Susan Balbuena MD Unavailable Unavailable Vinita, Susan Balbuena MD Unavailable Unavailable VinitaSusan MD Unavailable Unavailable VinitaSusan MD Unavailable Unavailable VinitaSusan MD Unavailable Unavailable [place]a, Susan Balbuena MD Unavailable Unavailable [place], Susan Balbuena MD Unavailable Unavailable [place]inita, Susan Balbuena MD Unavailable Unavailable [place], Susan Balbuena MD Unavailable Unavailable VinitaSusan MD Unavailable Unavailable [place]a, Susan Balbuena MD Unavailable Unavailable VinitaSusan MD Unavailable Unavailable [place], Susan Balbuena MD Unavailable Unavailable VinitaSusan MD Unavailable Unavailable VinitaSusan MD Unavailable Unavailable [place], Susan Balbuena MD [...] [place], Susan Balbuena MD Unavailable Unavailable [place], Ssuan Balbuena MD Unavailable Unavailable [place]a, Susan Balbuena [...] Unavailable [place], Susan Balbuena MD Unavailable Unavailable Lake, John Romeo MD [...] Unavailable [place], John Romeo MD Unavailable Unavailable Julio Reyes MD Unavailable Unavailable SleJulio wood MD Unavailable Unavailable SleheatherkaJulio MD Unavailable Unavailable SleheatherkaJulio MD Unavailable Unavailable SleheatherkaToniojtech Unavailable Unavailable SleheatherkaToniojtech Unavailable Unavailable SleheatherkaToniojtech Unavailable Unavailable SleTonio woodjtech Unavailable Unavailable SleheatherkaToniojtech Unavailable Unavailable SlezkaToniojtech Unavailable Unavailable SlezkaToniojtech Unavailable Unavailable SlezkaToniojtech Unavailable Unavailable Slezka Vojtech Unavailable Unavailable SlezkaToniojtech Unavailable Unavailable SlezkaToniojtech Unavailable Unavailable SlezkaJulio MD Unavailable Unavailable Slezka, Vojtech MD Unavailable Unavailable Julio Reyes MD [...] Unavailable Julio Reyes MD Unavailable Unavailable Julio Ryees MD Unavailable Unavailable Julio Reyes MD Unavailable [...] Susan Balbuena MD Unavailable Unavailable [place]a, Susan Balbuean MD Unavailable Unavailable [place]a, Susan Balbuena MD [...] Unavailable Isaias Amaro MD Unavailable Unavailable Isaias Amrao MD Unavailable Unavailable Isaias Amaro MD Unavailable [...] Susan Balbuena MD Unavailable Unavailable [place], Susan Cruzyn MD Unavailable Unavailable Susan Talamantes MD Unavailable Unavailable Re-disclosure Warning The records [...] is protected by Article 27-F of the [facility] Public Health law. If you continue you may have access to information: Regarding HIV / AIDS; Provided by facilities licensed or operated by the [facility] Office of Mental Health; or Provided by the [facility] Office for People With Developmental Disabilities. If such information is present, then the following [facility] mandated warning applies: This information has [...] law may result in a fine or senior care sentence or both. A general authorization for the release of medical or other information is NOT sufficient authorization for further disc losure. Allergies and Adverse Reactions Type Description Substance Reaction Status Data Source(s ) Food allergy shellfish derived shellfish derived [facility] Family History Family Member Name Family Member Gender Family Member Status Date o f Status Description Data Source(s) Unknown Male Problem [facility] ([facility]) Unknown Male Problem [facility] ([facility]) Encounters Encounter Providers Location Date Indications Data Source(s ) Outpatient [address] [facility] [id number] 07/20/2020 12:00:00 AM EST eCW1 ([facility]) Outpatient Attender: Lizett Nixon/Marina/Khoa/Re indl 06/22/2020 09:15:00 AM EST [facility] ([facility]) Outpatient Attender: Lizett Nixon/Chauvin/Khoa/Re indl 06/14/2020 12:23:00 AM EST [facility] ([facility]) Outpatient Attender: Lizett Nixon/Chauvin/Khoa/Re indl 06/13/2020 12:23:00 AM EST [facility] ([facility]) Outpatient Attender: Lizett Nixon/Chauvin/Khoa/Re indl 06/12/2020 12:23:00 AM EST [facility] ([facility]) Outpatient Referrer: Bethany Felix MD 06/11/2020 09:36:00 AM EST Pleural effusion, not elsewhere classified [facility] Pleural effusion, not elsewhere classifi ed Outpatient Attender: Lizett Nixon/Chauvin/Khoa/Re indl 06/10/2020 12:23:00 AM EST [facility] ([facility]) Outpatient Attender: Lizett Nixon/Chauvin/Khoa/Re indl 06/09/2020 12:23:00 AM EST [facility] ([facility]) Outpatient Attender: Lizett Nixon/Chauvin/Khoa/Re indl 06/08/2020 12:23:00 AM EST [facility] ([facility]) Outpatient Admitter: Bethany Felix MDReferrer: Bethany Felix MD 06/08/2020 12:00:00 AM EST Secondary malignant neoplasm of unspecified site [facility] Secondary malignant neoplasm of unspecif ied site Outpatient Attender: Kike Nixon/Chauvin/Khoa/R eindl 06/01/2020 09:00:00 AM EST [facility] ([facility]) Outpatient Attender: Julio Reyes MDReferrer: Stevan Talamantes MD [email or web address] 05/28/2020 12:00:00 AM EST - 05/28/2020 10:45:33 AM EST [facility] Outpatient<td ID="encounterTypeDescripti onID0">STANDARD OV</td><td>Esha Talamantes MD</td><td>[facility]</td><td>05/20/2020</td><td>8:34AM</td><td>05/07/2020 11:59PM</td><td><content ID="encounterDiagnosisID0-0">Working Diagnosis of Abdominal Pain</content>, <content ID="encounterDiagnosisID0-1">Working Diagnosis of Abdominal Pain in the Central Upper Belly (Epigastric)</content>, <content ID="encounterDiagnosisID0-2">Chest Pain</content>, <content ID="encounterDiagnosisID0-3">Hypoxia</content></td> Attender: Esha Talamantes MD [facility] 05/20/2020 08:34:00 AM EST - 05/07/2020 11:59:00 PM EST HypoxiaChest PainWorking Diagnosis of Ab dominal Pain in the Central Upper Belly (Epigastric)Working Diagnosis of Abdominal Pain [place] ([facility]) Hypoxia Chest Pain Working Diagnosis of Abdominal Pain in t he [place] (Epigastric) Working Diagnosis of Abdominal Pain Outpatient Attender: Esha Talamantes MDConsultant: Esha branch MD 05/07/2020 09:30:00 AM EST - 05/07/2020 10:30:00 AM EST [facility] Outpatient<td ID="encounterTypeDescripti onID1">STANDARD OV</td><td>Esha Talamantes MD</td><td>[facility]</td><td>05/07/2020</td><td>8:07AM</td><td>9:08AM</td><td><content ID="encounterDiagnosisID1-0">Acute Infective Exacerbation of Chronic Obstructive Airways Disease</content>, <content ID="encounterDiagnosisID1-1">Nicotine Dependence Uncomplicated</content>, <content ID="encounterDiagnosisID1- 2">Atypical Chest Pain</content></td> Attender: Esha Talamantes MD [facility], 05/07/2020 08:07:00 AM EST - 05/07/2020 09:08:00 AM ES T Atypical Chest PainNicotine Dependence UncomplicatedAcute Infective Exacerbation of Chronic Obstructive Airways DiseaseAtypical Chest PainNicotine Dependence UncomplicatedAcute Infective Exacerbation of Chronic Obstructive Airways Disease Atypical Chest PainNicotine Dependence UncomplicatedAcute Infective Exacerbation of Chronic Obstructive Airways Disease [place] ([facility]) Atypical Chest Pain Nicotine Dependence Uncomplicated Acute Infective Exacerbation of Chronic Obstructive Airways Disease Atypical Chest Pain Nicotine Dependence Uncomplicated Acute Infective Exacerbation of Chronic Obstructive Airways Disease Atypical Chest Pain Nicotine Dependence Uncomplicated Acute Infective Exacerbation of Chronic Obstructive Airways Disease Outpatient Attender: Esha Talamantes MDConsultant: Esha branch MD 04/30/2020 08:24:00 AM EST - 04/30/2020 09:24:00 AM EST [facility] Outpatient<td ID="encounterTypeDescripti onID2">HOSP I/P F/U</td><td>Esha Talamantes MD</td><td>[facility],</td><td>04/22/2020</td><td>10:05AM</td><td>11:03AM</td><td><content ID="encounterDiagnosisID2-0">Vitreous Floaters Right Eye</content>, <content ID="encounterDiagnosisID2-1">Chronic Obstructive Pulmonary Disease</content>, <content ID="encounterDiagnosisID2-2">Essential Hypertension Benign</content>, <content ID="encounterDiagnosisID2-3">Hyperlipidemia</content>, <content ID="encounterDiagnosisID2-4">Diabetes Mellitus Type 2 in Obese</content>, <content ID="encounterDiagnosisID2-5">Lung Mass</content>, <content ID="encounterDiagnosisID2-6">Fatigue</content></td> Attender: Esha Talamantes MD [facility], 04/22/2020 10:05:00 AM EST - 04/22/2020 [...] DiseaseHyperlipidemiaChronic Obstructive Pulmonary DiseaseHyperlipidemiaChronic Obstructive Pulmonary Disease [place] ([facility]) Fatigue Lung Mass Diabetes Mellitus Type [...] 04/12/2020 11:42:00 AM EDT CHEST PAIN,COPD EXACERBATION [facility] CHEST PAIN,COPD EXACERBATION Patient discharged. Outpatient<td ID="encounterTypeDescripti onID3">RX UPDATE</td><td>[facility]td[facility]td><td>11/20/2019</td><td>08/20/2019 11:10AM</td><td>08/20/2019 11:59PM</td><td></td> [facility]:10[facility]00 AM EST - 08/20/2019 11:59:00 PM EST [place] ([facility]) Outpatient<td ID="encounterTypeDescripti onID4">ANNUAL PHYSICAL EXAM</td><td>Esha Talamantes MD</td><td[facility]td><td>08/20/2019</td><td>8:13AM</td><td>9:35AM</td><td><content ID="encounterDiagnosisID4-0">Fatigue</content>, <content ID="encounterDiagnosisID4-1">Hypogonadism</content>, <content ID="encounterDiagnosisID4-2">Hyperlipidemia</content>, <content ID="encounterDiagnosisID4-3">Benign Prostatic Hypertrophy</content>, <content ID="encounterDiagnosisID4-4">Diabetes Mellitus Type 2 in Nonobese</content>, <content ID="encounterDiagnosisID4-5">Routine History & Physical Senior Citizen with Abnormal Findings</content></td> Attender: Esha Talamantes MD [facility], 08/20/2019 08:13:00 AM EST - 08/20/2019 [...] in NonobeseBenign Prostatic HypertrophyHypogonadismFatigue HyperlipidemiaHyperlipidemiaHyperlipidemiaHyperlipidemiaHyperlipidemiaHyperlipid noe [place] ([facility]) Routine History & Physical Senior Citize [...] 07:43:00 AM EST - 08/12/2019 08:43:00 AM [facility] Outpatient<td ID="encounterTypeDescripti onID5">STANDARD OV</td><td>Esha Talamantes MD</td><td>[facility]</td><td>08/07/2019</td><td>1:54PM</td><td>3:09PM</td><td><content ID="encounterDiagnosisID5-0">Cervicalgia</content>, <content ID="encounterDiagnosisID5-1">Chronic Obstructive Pulmonary Disease</content>, <content ID="encounterDiagnosisID5-2">Hypercalcemia</content>, <content ID="encounterDiagnosisID5-3">Bursitis Olecranon Left</content>, <content ID="encounterDiagnosisID5-4">Psoriasis</content>, <content ID="encounterDiagnosisID5-5">Diabetes Mellitus Secondary with Peripheral Neuropathy</content></td> Attender: Esha Talamantes MD [facility] 08/07/2019 01:54:00 PM EST - 08/07/2019 [...] DiseaseChronic Obstructive Pulmonary DiseaseChronic Obstructive Pulmonary Disease [place] ([facility]) Diabetes Mellitus Secondary with Periphe ral [...] Obstructive Pulmonary Disease Outpatient 07/07/2019 03:17:00 PM [facility] Emergency Attender: MALA PANIAGUA MDConsultant: Esha branch MD 07/07/2019 01:18:00 PM EST - 07/07/2019 03:37:00 PM [facility] Patient discharged. Outpatient<td ID="encounterTypeDescripti onID6">STANDARD OV</td><td>Esha Talamantes MD</td><td>[facility],</td><td>06/25/2019</td><td>10:55AM</td><td>11:58AM</td><td><content ID="encounterDiagnosisID6-0">Chronic Obstructive Pulmonary Disease</content>, <content ID="encounterDiagnosisID6-1">Hyperlipidemia</content>, <content ID="encounterDiagnosisID6-2">Diabetes Mellitus Type 2</content>, <content ID="encounterDiagnosisID6-3">Obesity</content>, <content ID="encounterDiagnosisID6-4">Diabetes Mellitus Type 2 with Coma</content>, <content ID="encounterDiagnosisID6-5">Hypogonadism</content></td> Attender: Esha Talamantes MD [facility], 06/25/2019 10:55:00 AM EST - 06/25/2019 [...] DiseaseHyperlipidemiaChronic Obstructive Pulmonary DiseaseHyperlipidemiaChronic Obstructive Pulmonary Disease [place] ([facility]) Hypogonadism Diabetes Mellitus Type 2 with [...] Pulmonary Disease Hyperlipidemia Chronic Obstructive Pulmonary Disease Functional Status Immunizations Vaccine Date Status Description Data Source(s) pneumococcal polysaccharide PPV23 08/07/2019 03:08:00 PM EST com pleted PCV (Pneumovax 23) ages 2+ 1 08/07/2019 Complete (Ref used - Patient objection) [facility] ([facility]) Medications Medication Brand Name Start Date Product [...] 1 TWICE A DAY THEREAFTER SOLD: 06/14/2020 [employer] pantoprazole 40 MG Delayed Release Oral Tablet PANTOPRAZOLE SODIUM 06/14/2020 12:00:00 AM EST tablet,delayed release (DR/EC) 30 T CARY ONE TABLET BY MOUTH EVERY DAY TAKE ONE TABLET BY MOUTH EVERY DAY SOLD: 06/14/2020 [facility] 100 mg 06/14/2020 12:00:00 AM EST capsule 60 TAKE ONE CAPSULE BY MOUTH TWICE A DAY TAKE ONE CAPSULE BY MOUTH TWICE A DAY SOLD: 06/14/2020 [facility] 7 ACTUAT umeclidinium 0.0625 MG/ACTUAT Dry Powder Inha ler [Incruse] Incruse Ellipta 06/01/2020 12:00:00 AM EST RESPIRATORY active [facility] ([facility], ) Prednisone 10 MG Oral Tablet Prednisone 06/01/2020 12:00:00 AM EST ORAL completed [facility] ([facility], ) Metformin hydrochloride 500 MG Oral Tablet metFORMIN ( GLUCOPHAGE) 500 MG tablet metFORMIN (GLUCOPHAGE) 500 MG tablet 05/20/2020 12:00:00 AM EST 1 { tbl} Oral active Take 1 tablet by mouth 2 (two) times a day [facility] Lancets Ultra Fine Miscellaneous Lancets Ultra Fine Miscella neous 05/20/2020 12:00:00 AM EST active Lancets Ultra Fine [place] ([facility]) IGlucose Test Strips In Vitro IGlucose Test Strips In Vitro 05/20/2020 12:00:00 AM EST active IGlucose Test Str ips [place] ([facility]) Albuterol 0.833 MG/ML / Ipratropium Brom delmer 0.167 MG/ML Inhalant Solution ipratropium-albuterol (DUO-NEB) 0.5-2.5 mg/mL nebulizer ipratropium-albuterol (DUO-NEB) 0.5-2.5 mg/mL nebulizer 05/20/2020 12:00:00 AM EST active INHALE 1 VIAL VIA NEB QID PRN [facility] Triamcinolone Acetonide 1 MG/ML Topical Lotion Triamcinolone Acetonide 0.1% External Lotion Triamcinolone Acetonide 0.1% External Lotion 0 12:00:00 AM EST active triamcinolone ac etonide 1 MG/ML Topical Lotion [facility]) atorvastatin 20 MG Oral Tablet Atorvastatin Calcium 20 MG Oral Tablet Atorvastatin Calcium 20 MG Oral Tablet 05/20/2020 12:00:00 AM EST 1 active atorvastatin 20 MG Oral Tablet [facility] Metformin hydrochloride 500 MG Oral Tablet metFORMIN H Cl 500 MG Oral Tablet metFORMIN HCl 500 MG Oral Tablet 05/20/2020 12:00:00 AM EST active metformin hydrochloride 500 MG Oral Tablet [place] ([facility]) 60 ACTUAT Budesonide 0.16 MG/ACTUAT / fo rmoterol fumarate 0.0045 MG/ACTUAT Metered Dose Inhaler [Symbicort] Symbicort 160-4.5 MCG/ACT Inhalation Aerosol Symbicort 160-4.5 MCG/ACT Inhalation Aerosol 05/20/2020 12:00:00 AM EST active 60 ACTUAT budeso nide 0.16 MG/ACTUAT / formoterol fumarate 0.0045 MG/ACTUAT Metered Dose Inhaler [Symbicort] [place] ([facility]) 200 ACTUAT Albuterol 0.09 MG/ACTUAT Mete red Dose Inhaler [ProAir] ProAir HFA 108 (90 Base) MCG/ACT Inhalation Aerosol Solution ProAir HFA 108 (90 Base) MCG/ACT Inhalation Aerosol Solution 05/20/2020 12:00:00 AM EST 18 active [id number] 200 ACTUAT albuterol 0.09 MG/ACTUAT Metered Dose Inhaler [ProAir] [place] ([facility]) Lisinopril 5 MG Oral Tablet Lisinopril 5 MG Oral Tablet 07/2019 12:00:00 AM EST active lisinopril 5 MG O ral Tablet [place] ([facility]) Lisinopril 5 MG Oral Tablet lisinopril (PRINIVIL,ZESTR IL) 5 MG tablet lisinopril (PRINIVIL,ZESTRIL) 5 MG tablet 05/19/2020 12:00:00 AM EST 1 {tbl} O ral active Take 1 tablet by mouth daily [facility] Lisinopril 5 MG Oral Tablet Lisinopril 5 MG Oral Tablet 04/20 12:00:00 AM EST aborted lisinopril 5 MG Oral Tablet [place] ([facility]) Prednisone 10 MG Oral Tablet predniSONE 10 MG Oral Tab let predniSONE 10 MG Oral Tablet 05/07/2020 12:00:00 AM EST aborted prednisone 10 MG Oral Tablet [place] ([facility]) doxycycline hyclate 100 MG Oral Capsule Doxycycline Hy clate 100 MG Oral Capsule Doxycycline Hyclate 100 MG Oral Capsule 05/06/2020 12:00:00 AM EST active doxycycline hyclate 100 MG Oral Capsule [facility]) 60 ACTUAT Budesonide 0.16 MG/ACTUAT / fo rmoterol fumarate 0.0045 MG/ACTUAT Metered Dose Inhaler [Symbicort] Symbicort 160-4.5 MCG/ACT Inhalation Aerosol Symbicort 160-4.5 MCG/ACT Inhalation Aerosol 04/22/2020 12:00:00 AM EST aborted 60 ACTUAT budeso nide 0.16 MG/ACTUAT / formoterol fumarate 0.0045 MG/ACTUAT Metered Dose Inhaler [Symbicort] [place] ([facility]) 200 ACTUAT Albuterol 0.09 MG/ACTUAT Mete red Dose Inhaler [ProAir] ProAir HFA 108 (90 Base) MCG/ACT Inhalation Aerosol Solution ProAir HFA 108 (90 Base) MCG/ACT Inhalation Aerosol Solution 04/22/2020 12:00:00 AM EST 18 aborted [id number] 200 ACTUAT albuterol 0.09 MG/ACTUAT Metered Dose Inhaler [ProAir] [place] ([facility]) Metformin hydrochloride 500 MG Oral Tablet metFORMIN H Cl 500 MG Oral Tablet metFORMIN HCl 500 MG Oral Tablet 04/22/2020 12:00:00 AM EST aborted metformin hydrochloride 500 MG Oral Tablet [place] ([facility]) atorvastatin 20 MG Oral Tablet Atorvastatin Calcium 20 MG Oral Tablet Atorvastatin Calcium 20 MG Oral Tablet 04/22/2020 12:00:00 AM EST 1 aborted atorvastatin 20 MG Oral Tablet [facility]) Lisinopril 5 MG Oral Tablet Lisinopril 5 MG Oral Tablet 09/2019 12:00:00 AM EST 1 aborted lisinopril 5 MG Oral Tablet [place] ([facility]) Dextromethorphan Hydrobromide 2 MG/ML / Guaifenesin 20 MG/ML Oral Solution Dextromethorphan-Guaifenesin Dextromethorphan-Guaifenesin 04/12/2020 10:03:10 AM EDT 10 ML active [facility] Albuterol 0.833 MG/ML / Ipratropium Brom delmer 0.167 MG/ML Inhalant Solution Ipratropium-Albuterol Ipratropium-Albuterol 04/12/2020 10:02:36 AM EDT 3 ML active [facility] Prednisone 20 MG Oral Tablet Prednisone 04/12/2020 10:01:33 AM EDT 40 MG active [facility] Azithromycin 500 MG Oral Tablet Azithromycin 04/12/2020 10:00:43 AM EDT 500 MG active [facility] atorvastatin 20 MG Oral Tablet Atorvastatin Atorvastatin 04/11/2020 09:16:15 PM EDT 20 MG active [facility] Pigyaojvlmzs-Zlhaqbhd-Hbwbxn (Centrum Silver) Tablet 04/11/2020 09:16:15 PM EDT 1 TAB active [facility] atorvastatin 20 MG Oral Tablet Atorvastatin Atorvastatin 04/11/2020 09:16:15 PM EDT 20 MG active [facility] Metformin hydrochloride 500 MG Oral Tablet Metformin 04/11 09:16:15 PM EDT 500 MG active [facility] Aspirin 04/11/2020 09:16:15 PM EDT 81 MG active [facility] Aspirin 04/11/2020 09:16:15 PM EDT 81 MG active [facility] 120 ACTUAT Budesonide 0.16 MG/ACTUAT / f ormoterol fumarate 0.0045 MG/ACTUAT Metered Dose Inhaler Budesonide-Formoterol (Symbicort) 160-4.5 mcg/actuation HFA aerosol inhaler Budesonide-Formoterol (Symbicort) 160-4. 5 mcg/actuation HFA aerosol inhaler 04/11/2020 09:16:15 PM EDT 2 PUFFS activ e [facility] Metformin hydrochloride 500 MG Oral Tablet Metformin 04/11 09:16:15 PM EDT 500 MG active [facility] 120 ACTUAT Budesonide 0.16 MG/ACTUAT / f ormoterol fumarate 0.0045 MG/ACTUAT Metered Dose Inhaler Budesonide-Formoterol (Symbicort) 160-4.5 mcg/actuation HFA aerosol inhaler Budesonide-Formoterol (Symbicort) 160-4. 5 mcg/actuation HFA aerosol inhaler 04/11/2020 09:16:15 PM EDT 2 PUFFS activ e [facility] Albuterol Sulfate (Proair Hfa) 90 mcg/actuation HFA aerosol inhaler 04/11/2020 09:16:15 PM EDT 2 PUFFS active [facility] Gyfnlgkotout-Ydkoeaxx-Pmmtdo 04/11/2020 09:16:15 PM EDT 1 T AB active [facility] Albuterol Sulfate (Proair Hfa) 90 mcg/actuation HFA aerosol inhaler 04/11/2020 09:16:15 PM EDT 2 PUFFS active [facility] 60 ACTUAT Budesonide 0.16 MG/ACTUAT / fo rmoterol fumarate 0.0045 MG/ACTUAT Metered Dose Inhaler [Symbicort] Symbicort 160-4.5 MCG/ACT Inhalation Aerosol Symbicort 160-4.5 MCG/ACT Inhalation Aerosol 11/20/2019 12:00:00 AM EDT aborted 60 ACTUAT budeso nide 0.16 MG/ACTUAT / formoterol fumarate 0.0045 MG/ACTUAT Metered Dose Inhaler [Symbicort] [place] ([facility]) Lisinopril 5 MG Oral Tablet Lisinopril 5 MG Oral Tablet 08/2019 12:00:00 AM EDT 1 aborted lisinopril 5 MG Oral Tablet [facility]) 200 ACTUAT Albuterol 0.09 MG/ACTUAT Mete red Dose Inhaler [ProAir] ProAir HFA 108 (90 Base) MCG/ACT Inhalation Aerosol Solution ProAir HFA 108 (90 Base) MCG/ACT Inhalation Aerosol Solution 10/24/2019 12:00:00 AM EDT 18 aborted [id number] 200 ACTUAT albuterol 0.09 MG/ACTUAT Metered Dose Inhaler [ProAir] [facility]) Lisinopril 5 MG Oral Tablet Lisinopril 5 MG Oral Tablet 08/2019 12:00:00 AM EST 1 aborted lisinopril 5 MG Oral Tablet [place] ([facility]) Triamcinolone Acetonide 1 MG/ML Topical Lotion Triamcinolone Acetonide 0.1% External Lotion Triamcinolone Acetonide 0.1% External Lotion 0 12:00:00 AM EST aborted triamcinolone a cetonide 1 MG/ML Topical Lotion [facility]) 200 ACTUAT Albuterol 0.09 MG/ACTUAT Mete red Dose Inhaler [ProAir] ProAir HFA 108 (90 Base) MCG/ACT Inhalation Aerosol Solution ProAir HFA 108 (90 Base) MCG/ACT Inhalation Aerosol Solution 08/20/2019 12:00:00 AM EST 18 aborted [id number] 200 ACTUAT albuterol 0.09 MG/ACTUAT Metered Dose Inhaler [ProAir] [facility]) 5000 MG Testosterone 0.01 MG/MG Topical Gel [Androgel] AndroGel 50 MG/5GM (1%) Transdermal AndroGel 50 MG/5GM (1%) Transdermal 08/20/2019 12:00:00 AM EST aborted 5000 MG testosterone 0.01 MG/MG Topical Gel [Androgel] [place] ([facility]) IGlucose Test Strips In Vitro IGlucose Test Strips In Vitro 08/20/2019 12:00:00 AM EST ab[facility] atorvastatin 20 MG Oral Tablet Atorvastatin [...] fumarate 0.0045 MG/ACTUAT Metered Dose Inhaler [Symbicort] [place] ([facility]) Lancets Ultra Fine Miscellaneous Lancets Ultra Fine Miscella neous 08/20/2019 12:00:00 AM EST aborted Lancets Ultra Fine [place] ([facility]) Metformin hydrochloride 500 MG Oral Tablet metFORMIN H Cl 500 MG Oral Tablet metFORMIN HCl 500 MG Oral Tablet 08/20/2019 12:00:00 AM EST aborted metformin hydrochloride 500 MG Oral Tablet [place] ([facility]) Lancets Ultra Fine Miscellaneous Lancets Ultra Fine Miscella neous 06/25/2019 12:00:00 AM EST aborted Lancets Ultra Fine [place] ([facility]) IGlucose Test Strips In Vitro IGlucose Test Strips In Vitro 06/25/2019 12:00:00 AM EST ab[facility] Metformin hydrochloride 500 MG Oral Tablet metFORMIN H Cl 500 MG Oral Tablet metFORMIN HCl 500 MG Oral Tablet 06/25/2019 12:00:00 AM EST aborted metformin hydrochloride 500 MG Oral Tablet [place] ([facility]) atorvastatin 20 MG Oral Tablet Atorvastatin [...] fumarate 0.0045 MG/ACTUAT Metered Dose Inhaler [Symbicort] [place] ([facility]) Metformin hydrochloride 500 MG Oral Tablet metFORMIN H Cl 500 MG Oral Tablet metFORMIN HCl 500 MG Oral Tablet 05/30/2019 12:00:00 AM EST aborted metformin hydrochloride 500 MG Oral Tablet [place] ([facility]) 200 ACTUAT Albuterol 0.09 MG/ACTUAT Mete red Dose Inhaler [ProAir] ProAir HFA 108 (90 Base)MCG/ACT Inhalation Aerosol Solution ProAir HFA 108 (90 Base)MCG/ACT Inhalation Aerosol Solution 01/24/2019 12:00:00 AM EDT 18 aborted [id number] 200 ACTUAT albuterol 0.09 MG/ACTUAT Metered Dose Inhaler [ProAir] [place] ([facility]) IGlucose Test Strips In Vitro IGlucose Test Strips In Vitro 01/24/2019 12:00:00 AM EDT aborted IGlucose Test St rips [place] ([facility]) Triamcinolone Acetonide 1 MG/ML Topical Lotion Triamcinolone Acetonide 0.1% External Lotion Triamcinolone Acetonide 0.1% External Lotion 12:00:00 AM EDT aborted triamcinolone a cetonide 1 MG/ML Topical Lotion [place] ([facility]) Lancets Ultra Fine Miscellaneous Lancets Ultra Fine Miscella neous 01/24/2019 12:00:00 AM EDT aborted Lancets Ultra Fine [place] ([facility]) 30 ACTUAT fluticasone furoate 0.1 MG/ACT UAT / vilanterol 0.025 MG/ACTUAT Dry Powder Inhaler [Breo] Breo Ellipta 100-25MCG/INH Inhalation Aerosol Powder Breath Activated Breo Ellipta 100-25MCG/INH Inhalation Ae rosol Powder Breath Activated 01/24/2019 12:00:00 AM EDT aborted 30 ACTUAT fluticasone furoate 0.1 MG/ACTUAT / vilanterol 0.025 MG/ACTUAT Dry Powder Inhaler [Breo] [place] ([facility]) atorvastatin 20 MG Oral Tablet Atorvastatin Calcium 20 MG Oral Tablet Atorvastatin Calcium 20MG Oral Tablet 01/24/2019 12:00:00 AM EDT 1 aborted atorvastatin 20 MG [facility]t [facility] pantoprazole 40 MG Delayed Release Oral Tablet pantoprazole (PROTONIX) 40 MG tablet pantoprazole (PROTONIX) 40 MG tablet 04/16/2016 12:00:00 AM EDT aborted [facility] atorvastatin 40 MG Oral Tablet atorvastatin (LIPITOR) 40 MG tablet atorvastatin (LIPITOR) 40 MG tablet 10/10/2014 12:00:00 AM EDT aborted [facility] 200 ACTUAT Levalbuterol 0.045 MG/ACTUAT Metered Dose Inhaler [Xopenex] XOPENEX HFA 45 MCG/ACT inhaler XOPENEX HFA 45 MCG/ACT inhaler 04/23/2014 12:00:00 AM EST aborted [facility] ALBUTEROL IN aborted prn [facility] Nitroglycerin 0.4 MG Sublingual Tablet n itroglycerin (NITROSTAT) 0.4 MG SL tablet nitroglycerin (NITROSTAT) 0.4 MG SL tablet aborted sl prn cp-take up to 3 tabs 5 minutes apart to resolve cp [facility] DAILY DIONNE (THERAGRAN) per tablet 83586-535-67 Oral aborted Take by mouth [facility] Cholecalciferol 2000 UNT Oral Capsule Ch olecalciferol (VITAMIN D3) 2000 UNITS capsule Cholecalciferol (VITAMIN D3) 2000 UNITS capsule Oral aborted Take by mouth [facility] 24 HR metoprolol succinate 25 MG Extende d Release Oral Tablet metoprolol (TOPROL-XL) 25 MG 24 hr tablet metoprolol (TOPROL-XL) 25 MG 24 hr tablet 25 mg Oral aborted Take 25 mg by mouth [facility] Aspirin 325 MG Oral Tablet aspirin 325 MG tablet aspirin 325 MG tab let 81 mg Oral aborted Take 81 mg by mouth [facility] Insurance Providers Payer name Policy type / Coverage type Policy ID Covered constitution party ID Covered constitution party's relationship to nino Policy Nino Plan Information CELESTINO [id number] SP [id number] CELESTINO [id number] SP [id number] CELESTINO EXCHANGE U [id number] Self [id number] [facility] [id number] Empl [id number] CELE[place]INO CARE [place] O [id number] O [id number] CELESTINO MEDICAID [id number] Emperatriz [id number] CELE[place]INO MEDICAID [id number] [facility] [place] Other 0 Self 0 [place] [facility] [place] Other 0 Self 0 [place]LE[place]INO CARE OF [place] -OP [id number] [employer] [facility] [place] Other 0 Self 0 [place] Other 0 Self 0 [place] Other 0 Self 0 [place] Other 0 Self 0 [place] [facility] [place] Other 0 Self 0 [place] [employer] [place] Other 0 Self 0 [place] [employer] [place] Other 0 Self 0 [place] [id number] 18 [id number] [employer] [facility] [place] Other 0 Self 0 [place] [employer] [place] Other 0 Self 0 [place] Other 0 Self 0 [place] Other 0 Self 0 [place] Other 0 Self 0 [place] Other 0 Self 0 [place] Other 0 Self 0 [place]OM[place] U [id number] Self [id number] [facility] INS [facility] [id number] Empl [id number] STATE INS FUND W [id number] Empl [id number] [place] State Insurance Fund Workers Compensation [id number] Self [id number] [employer] [id number] Self [id number] [place] [employer] Self [place] State Insurance Fund Workers Compensation Self CELESTINO MEDICAID [id number] Emperatriz 7 [id number] MEDICAID [id number] Emperatriz [id number] POM[place] [id number] Emperatriz [id number] [place] Commercial Self STATE INS FUND W [id number] Empl [id number] [place] O [id number] S [id number] STATE INSURANCE FUND O [id number] S [id number] STATE INSURANCE FUND O [id number] S [id number] [employer] [id number] SP [id number] POMCO [id number] SP [id number] Problems, Conditions, and Diagnoses Code Display Name Description Problem Type Effective Dates Data Source(s) 03425972 Type 1 diabetes mellitus Type 1 diabetes mellitus Prob rose 06/21/2020 12:00:00 AM EST [place] ([facility], ) R06.02 Shortness of breath Shortness of breath [id number] 1 07/29/2019 12:00:00 AM EST [facility] R91.8 Mass of upper lobe of right lung Mass of upper l obe of right lung [id number] 05/28/2020 12:00:00 AM EST [facility] J90 Pleural effusion, not elsewhere classifi ed Pleural effusion, not elsewhere classified Diagnosis 06/11/2020 09:36:00 AM EST [facility] C79.9 Secondary malignant neoplasm of unspecif ied site Secondary malignant neoplasm of unspecified site Diagnosis 06/08/2020 08:48:00 AM EST [facility] I48.0 Paroxysmal atrial fibrillation Paroxysmal atrial fibri llation Diagnosis 05/28/2020 08:55:00 AM EST [facility] R06.02 Shortness of breath Shortness of breath Diagnosis 1 07/29/2019 08:55:00 AM EST [facility] R91.8 Other nonspecific abnormal finding of maira ng field Other nonspecific abnormal finding of maira Diagnosis 05/28/2020 08:55:[address] [facility] R07.9 Chest pain, unspecified Chest pain, unspecified Diagno sis 05/28/2020 08:55:00 AM [facility] R079 Chest pain, unspecified Chest pain, unspecified Diagno sis 05/07/2020 09:30:00 AM [facility] I10 Essential (primary) hypertension Essential (primary) h ypertension Diagnosis 04/30/2020 08:24:00 AM [facility] E782 Mixed hyperlipidemia Mixed hyperlipidemia Diagnosis 04/30/2020 08:24:00 AM [facility] R5383 Other fatigue Other fatigue Diagnosis 04/30/2020 08:24:00 AM [facility] Z125 Encounter for screening for malignant ne oplasm of prostate Encounter for screening for malignant neoplasm of prostate Diagnosis 0 07:43:00 AM [facility] E291 Testicular hypofunction Testicular hypofunction Diagno sis 08/12/2019 07:43:00 AM [facility] E8352 Hypercalcemia Hypercalcemia Diagnosis 08/12/2019 07:43:00 AM [facility] G33951 Personal history of nicotine dependence Personal history of nicotine dependence Diagnosis 07/07/2019 01:18:00 PM [facility] 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 Z7982 jail (current) use of aspirin jail (cu rrent) use of aspirin Diagnosis 07/07/2019 01:18:00 PM [facility] J449 Chronic obstructive pulmonary disease, u nspecified Chronic obstructive pulmonary disease, unspecified Diagnosis 07/07/2019 01:18:00 PM [facility] E119 Type 2 diabetes mellitus without complic ations Type 2 diabetes mellitus without complications Diagnosis 07/07/2019 01:18:00 PM [facility] M7022 Olecranon bursitis, left elbow Olecranon bursitis, lef t elbow Diagnosis 07/07/2019 01:18:00 PM [facility] R2232 Localized swelling, mass and lump, left upper limb Localized swelling, mass and lump, left upper limb Diagnosis 07/07/2019 01:18:00 PM EST [facility] Y9389 Activity, other specified Activity, other specified Di agnosis 07/07/2019 01:18:00 PM [facility] Surgeries/Procedures Procedure Description Date Indications Data Source(s) INSERTION INDWELLING TUNNELED PLEURAL CATHETER 020 12:00:00 AM EST [facility] ([facility], ) DEMO&/EVAL OF PT UTILIZ AERSL GEN/NEB/INHLR/IPPB 06/01 12:00:00 AM EST [facility] ([facility], ) ECG ROUTINE ECG W/LEAST 12 LDS W/I&R POCT AMB EKG Routine 05/28/2020 9:15 AM EST Chest pain, unspecified type 05/28/2020 02:15:00 PM EST [place] pain, unspecified type [facility] Chest pain, unspecified type ELECTROCARDIOGRAM, COMPLETE (EKG) ELECTROCARDIOGRAM, COMPLET E (EKG) 05/07/2020 12:00:00 AM EST [place] ([facility]) ELECTROCARDIOGRAM, COMPLETE (EKG) ELECTROCARDIOGRAM, COMPLET E (EKG) 05/07/2020 12:00:00 AM [facility] ([facility]) Computed tomography angiography of thorax (procedure) 04/11/2020 08:44:00 PM EDT [facility] Computed tomography angiography of thorax (procedure) 04/11/2020 08:44:00 PM [facility] Plain chest X-ray (procedure) 04/11/2020 05:34:00 PM E [facility] CT Head without contrast 04/11/2020 05:34:00 PM [facility] Plain chest X-ray (procedure) 04/11/2020 05:34:00 PM E [facility] CT Head without contrast 04/11/2020 05:34:00 PM [facility] Blood Culture 04/11/2020 12:00:00 AM [facility] SARS-CoV-2 (PCR) Interpretation 04/11/2020 12:00:00 AM [facility] Blood Culture 04/11/2020 12:00:00 AM [facility] SARS-CoV-2 (PCR) Interpretation 04/11/2020 12:00:00 AM EDT [facility] ELECTROCARDIOGRAM, COMPLETE (EKG) ELECTROCARDIOGRAM, COMPLET E (EKG) 08/20/2019 12:00:[address] [facility]) FECAL BLOOD ASSAY TEST (waived laboratory) FECAL BLOOD ASSAY TEST (waived laboratory) 08/20/2019 12:00:00 AM [facility]) O2 SATURATION> 88% /OLI>55 O2 SATURATION> 88% /OLI>55 2019 12:00:[address] [facility]) FECAL BLOOD ASSAY TEST FECAL BLOOD ASSAY TEST 08/20/2019 12:00:[address] [facility]) ELECTROCARDIOGRAM, COMPLETE (EKG) ELECTROCARDIOGRAM, COMPLET E (EKG) 08/20/2019 12:00:[address] [facility]) O2 SATURATION> 88% /OLI>55 O2 SATURATION> 88% /OLI>55 2019 12:00:[address] [facility]) Blood culture for bacteria, including anaerobic screen (proc edure) 07/07/2019 12:00:[address] [facility] l Gram stain microscopy (procedure) 07/07/2019 12:00:00 AM [facility] Aerobic microbial culture (procedure) 07/07/2019 12:00 :00 AM [facility] Blood culture for bacteria, including anaerobic screen (proc edure) 07/07/2019 12:00:[address] [facility] l Gram stain microscopy (procedure) 07/07/2019 12:00:00 AM [facility] Aerobic microbial culture (procedure) 07/07/2019 12:00 :00 AM [facility] HbA1c (Glycosolated) (waived laboratory) HbA1c (Glycos olated) (waived laboratory) 06/25/2019 12:00:00 AM [facility] ([facility]) CAPILLARY BLOOD DRAW CAPILLARY BLOOD DRAW 06/25/2019 12:00:00 AM [facility]) GLUCOSE (waived laboratory) GLUCOSE (waived laboratory) 12/2019 [facility] O2 SATURATION> 88% /OLI>55 O2 SATURATION> 88% /OLI>55 2019 12:00:00 AM EST [place] ([facility]) Results ID Date Data Source [id number] 07/15/2020 10:32:00 AM EST [facility] Name Value Range Interpretation Code Description Data Shelly rce(s) Supporting Document(s) SARS-CoV-2 (COVID 19) NEGATIVE - SARS-CoV-2 (COVID19) [facility] This lab was ordered by [facility] a nd reported by [facility]. ID Date Data Source [id number] 07/03/2020 09:52:00 AM EST [facility] Name Value Range Interpretation Code Description Data Shelly rce(s) Supporting Document(s) SARS-CoV-2 (COVID 19) NEGATIVE - SARS-CoV-2 (COVID19) [facility] This lab was ordered by [facility] a nd reported by [facility]. ID Date Data Source [id number] 06/22/2020 12:00:00 AM EST [facility] oly Imaging Lizett Cooley MD Patient Name: TOLU [id number] Date of : 1955[place] [address] [facility]#: Fax: [phone] EXAM: CHEST (2 VIEW) X-RAYCLINICAL [...] rce(s) Supporting Document(s) ID Date Data Source [id number] 06/08/2020 04:28:00 AM EST [facility] Name Value Range Interpretation Code Description Data Shelly rce(s) Supporting Document(s) SARS coronavirus 2 RNA [Presence] in Res piratory specimen by KRISTEN with probe detection [facility] This lab was ordered by [facility] a nd reported by [facility]. ID Date Data Source [id number] 06/26/2020 06:36:00 PM [facility] Anatomic Molecular Pathology ReportName: TOLU RATLIFFMRN: [id number] Number: [id number] Date: 06/08/2020 00:00Received Date: 06/16/2020 09:03Physician(s): BETHANY FELIX MD HAGHIR, SHAHANDEH F,MDCopy To:LIZETT COOLEY,[facility]ITAL[facility]imen[facility]s) ReceivedA: Pleural fluid, Formalin Block [id number] A2 received from [facility] in [place], [place], ROS1 by FISHDiagnosisTEST:ROS1 gene rearrangements by [...] associated with better response to treatmentwith crizotinib. kg/marcy Electronically Signed By Jhoan Miranda M.D. Attending Pathologist 06/26/2020 18:36:59Reported at [address] [place] [address]. Gross DescriptionMETHODOLOGY:Interphase FISH is performed on paraffin embedded NSCLC utilizing thecombined MyWave Molecular LSI ROS1(Eliza) and ROS1(Tel) ROS1 Probes: 1)3'-ROS1(Eliza), 557 kb, labeled with SpectrumGreen, and 2) 5'- ROS1(Tel),317kb, labeled with SpectrumOrange. Tumor cells with no MWA5ifizheajipbzsz have 2 yellow signals (fused orange and [...] and its performance characteristics weredetermined by the [facility],and it has been authorized for clinical use by [facility]. The test has not been cleared or approved by the U.S. Food andDrug Administration. The analyte specific reagents used in this assay donot require FDA approval. REFERENCES: 1. SHANTELL Juarez, Daisy AT, Theparadise RIVAS et al. Identifying and Targeting BEW2Eccn Fusions in NonSmall Cell Lung Cancer. Clin Cancer Res 2012; 18(17);97965517.2. Iqbal, Severo AT. Novel Targets in Non-Small Cell Lung Cancer:ROS-1 and RET fusions. The Oncologist. 2013;18:865-875.This report may include one or more immunohistochemical stain results thatuse analyte specific reagents. All positive and negative controls havebeen reviewed by the attending pathologist and are satisfactory. The testswere developed and their performance characteristics determined by [facility] Pathology department. They have not been cleared or approved by the USFood and Drug Administration. The FDA has determine d that such clearanceor approval is not necessary. Name Value Range Interpretation Code Description Data Shelly rce(s) Supporting Document(s) ID Date Data Source [id number] 06/25/2020 12:10:00 PM [facility] Anatomic Molecular Pathology ReportName: TOLU RATLIFFMRN: [id number] Number: [id number] Date: 06/08/2020 00:00Received Date: 06/16/2020 09:06Physician(s): BETHANY FELIX MD HAGHIR, SHAHANDEH F,MDCopy To:LIZETT COOLEY,[facility]ITALpecimen(s) ReceivedA: Pleural fluid, Formalin Block [id number] A2 received from [facility] in [place], [place] BRAF Mutation AnalysisDiagnosisTESTS:BRAF V600E mutation (1799 [...] Miranda M.D. Attending Pathologist 06/25/2020 12:10:33Reported at [address] [place] [id number]. Gross DescriptionMETHODOLOGY:BRAF V600E(1799 T>A) mutation at exon [...] theamounts of PCR products, and analyzed by Phorest real timeinstrument. The analytical sensitivity (or minimum percentage of mutantDNA needed) is approximately 10% given sufficient DNA input. Test development and its performance characteristics were determined bythe [facility], and has beenauthorized for clinical use by [facility]. Thetest has not been cleared or approved by the U.S. Food and DrugAdministration. The analyte specific reagents used in this assay do notrequire FDA approval. REFERENCES: 1. Dolores S, Deandre Cortés, et al. Detection of BRAF D930Lduudbdrr in colorectal cancer-comparison of automatic sequencing and realtime chemistry methodology. J Mol Diagn. 2006; 8:056420.2. Raul L, Chica TJ, Nayeli N, et al. BRAF mutation analysis in fineneedle aspiration (FNA) cytology of the thyroid. Diagn Mol Pa thol.2006;15:829392.3. Brenda PK, Glen ME, Lelo M, et al. Clinical characteristics ofpatients with lung adenocarcinomas harboring BRAF mutations. J Clin Oncol.2011;29:2424-5011.This report may include one or more immunohistochemical stain results thatuse analyte specific reagents. All positive and negative controls havebeen reviewed by the attending pathologist and are satisfactory. The testswere developed and their performance characteristics determined by [facility] Pathology department. They have not been cleared or approved by the USFood and Drug Administration. The FDA has determined that such clearanceor approval is not necessary. Name Value Range Interpretation Code Description Data Shelly rce(s) Supporting Document(s) ID Date Data Source [id number] 06/25/2020 09:32:00 [facility] Anatomic Molecular Pathology ReportName: TOLU RATLIFFNICK: [id number] Number: [id number] Date: 06/08/2020 00:00Received Date: 06/16/2020 09:04Physician(s): BETHANY FELIX MD HAGHIR, SHAHANDEH F,[facility] To:LIZETT COOLEYMARY IMOGENE [facility]OSPITALpecimen(s) ReceivedA: Pleural fluid, Formalin Block [id number] A2 received from [facility] in [place], [place] EGFRDiagnosisTEST: EGFR gene mutations (exon 19 [...] indicated. Presence of exon 19 deletions, exon 94T778N or L861Q, exon 18 G719A or exon [...] Miranda M.D. Attending Pathologist 06/25/2020 09:32:10Reported at [address] [place] [id number]. Gross DescriptionMETHODOLOGY:The therascreen EGFR RGQ PCR Kit ([employer], [place], [place]) is a real-timequalitative PCR assay used on the [employer] instrument for thedetection of seven types of [...] 2008;15: 2442.3. Aleks SV, Shima RICHARDSON, Toño Cm et al. Epidermal growth factor receptormutations in lung cancer. Nature Review/Cancer. 2007;9340-5499.This report may include one or more immunohistochemical stain results thatuse analyte specific reagents. All positive and negative controls havebeen reviewed by the attending pathologist and are satisfactory. The testswere developed and their performance characteristics determined by [facility] Pathology department. They have not been cleared or approved by the USFood and Drug Administration. The FDA has determined that such clearanceor approval is not necessary. Name Value Range Interpretation Code Description Data Shelly rce(s) Supporting Document(s) ID Date Data Source [id number] 06/25/2020 09:18:00 AM [facility] Anatomic Molecular Pathology ReportName: TOLU RATLIFFMRN: [id number] Number: [id number] Date: 06/08/2020 00:00Received Date: 06/16/2020 09:05Physician(s): BETHANY FELIX MD HAGHIR, SHAHANDEH F,[facility] To:LIZETT COOLEY,[facility]ITALpecimen(s) ReceivedA: Pleural fluid, Formalin Block [id number] A2 received from [facility] in [place], [place] KRAS Mutation AnalysisDiagnosisTEST:KRAS gene mutations by [...] Miranda M.D. Attending Pathologist 06/25/2020 09:18:25Reported at [address] [place] [address]. Gross DescriptionMETHODOLOGY:The therascreen KRAS RGQ PCR Kit is a real-time qualitative PCR assay usedon the [employer] instrument for the detection of seven somaticmutations [...] Morejon, Terri JM, Somepeter MR, et al. [place] Societyof Clinical Oncology provisional clinical opinion: testing for KRAS genemutations in patients with metastatic colorectal carcinoma to predictresponse to anti-epidermal growth factor receptor monoclonal antibodytherapy. J Clin Oncol 27:7256-1468, 2009. 2. Magdalena S , Peg Javed , GALINA Mace, et al.Biomarkers predicting clinical outcome of epidermal growth factor receptortargeted therapy in metastatic colorectal cancer. J Natl Cancer Rusx118:52177960, 2009.This report may include one or more immunohistochemical stain results thatuse analyte specific reagents. All positive and negative controls havebeen reviewed by the attending pathologist and are satisfactory. The testswere developed and their performance characteristics determined by [facility] Pathology department. They have not been cleared or approved by the USFood and Drug Administration. The FDA has determined that such clearanceor approval is not necessary. Name Value Range Interpretation Code Description Data Shelly rce(s) Supporting Document(s) ID Date Data Source [id number] 06/25/2020 09:10:00 AM [facility] Anatomic Molecular Pathology ReportName: TOLU RATLIFFMRN: [id number] Number: [id number] Date: 06/08/2020 00:00Received Date: 06/16/2020 09:01Physician(s): BETHANY FELIX MD HAGHIR, SHAHANDEH F,MDCopy To:LIZETT COOLEY,[facility]ITALpecimen(s) ReceivedA: Pleural fluid, Formalin Block [id number] A2 received from [facility] in [place], [place], ALK by FISHDiagnosisTEST:ALK gene rearrangements by [...] Miranda M.D. Attending Pathologist 06/25/2020 09:10:47Reported at [address] [place] [id number]. Gross DescriptionMETHODOLOGY:Interphase FISH is performed on paraffin embedded NSCLC utilizing theMyWave Molecular ALK Break Apart FISH Probe Kit. [...] the special procedure laboratory of Department of Pathology,[facility]. This report may include one or more immunohistochemical stain results thatuse analyte specific reagents. All positive and negative controls havebeen reviewed by the attending pathologist and are satisfactory. The testswere developed and their performance characte ristics determined by [facility] Pathology department. They have not been cleared or approved by the USFood and Drug Administration. The FDA has determined that such clearanceor approval is not necessary. Name Value Range Interpretation Code Description Data Shelly rce(s) Supporting Document(s) ID Date Data Source [id number] 05/07/2020 09:36:00 AM [facility] [place] ([facility]) Name Value Range Interpretation Code Description Data Shelly rce(s) Supporting Document(s) Reported Physicians See Note Reported Physici karoline [facility]NS[facility] ([facility]) Note: Reported Physicians:Ordering: Esha De La Garza AAttending: ESHA TALAMANTESConsulting: Alex TALAMANTES To: Esha Talamantes ID Date Data Source [id number] 05/07/2020 09:36:00 AM [facility] ([facility]) Name Value Range Interpretation Code Description Data Shelly rce(s) Supporting Document(s) Procalcitonin [Mass/volume] in Serum or Plasma by Immunoassay 0.04 ng/mL Procalcitonin [place] ([facility]) Note: A procalcitonin (PCT) level above [...] obtained.Responsible Observer: (rfl) ID Date Data Source [id number] 05/07/2020 09:36:00 AM [facility] ([facility]) Name Value Range Interpretation Code Description Data Shelly rce(s) Supporting Document(s) Reported Physicians See Note Reported [facility] ([facility]) Note: Reported Physicians:Ordering: Beard e, Esha AAttending: VINITA, JOCELYNConsulting: VINITA, JOCELYNCopy To: Vinita, Esha ID Date Data Source [id number] 05/07/2020 09:36:00 AM [facility] ([facility]) Name Value Range Interpretation Code Description Data Shelly rce(s) Supporting Document(s) SED RATE 18 mm/hr SED RATE [place] ([facility]) Note: Responsible Observer: (CM) SED RATE REENTER 18 SED RATE REENTER [facility] ([facility]) Note: Responsible Observer: (CM) ID Date Data Source [id number] 05/07/2020 09:36:00 AM [facility] ([facility]) Name Value Range Interpretation Code Description Data Shelly rce(s) Supporting Document(s) Reported Physicians See Note Reported [facility] ([facility]) Note: Reported Physicians:Ordering: Beard e, Esha AAttending: VINITA, JOCELYNConsulting: VINITA, JOCELYNCopy To: Vinita, Esha ID Date Data Source [id number] 05/07/2020 09:36:00 AM EST [facility] ([facility]) Name Value Range Interpretation Code Description Data Shelly rce(s) Supporting Document(s) CRP-HS 8.40 MG/L Above high normal CRP-HS [facility] ([facility]) Note: [facility]/S HS-CRP CUT-OFF : RELATIVE RISK: <1.0 mg/L Low 1.0 - 3.0 mg/L Average >3.0 mg/L High Optimally, the average of HS-CRP results repeated two weeks apart should be used for risk assessment.Responsible Observer: () ID Date Data Source [id number] 05/07/2020 09:36:00 AM EST [facility] ([facility]) Name Value Range Interpretation Code Description Data Shelly rce(s) Supporting Document(s) Reported Physicians See Note Reported [facility] ([facility]) Note: Reported Physicians:Ordering: Beard e, Esha AAttending: VINITA, JOCELYNConsulting: VINITA, JOCELYNCopy To: Vinita, Esha ID Date Data Source [id number] 05/07/2020 09:36:00 AM EST [facility] ([facility]) Name Value Range Interpretation Code Description Data Shelly rce(s) Supporting Document(s) BNP 211 PG/ML Above high normal BNP [place] ([facility]) Note: Responsible Observer: () ID Date Data Source [id number] 05/07/2020 09:36:00 AM EST [facility] ([facility]) Name Value Range Interpretation Code Description Data Shelly rce(s) Supporting Document(s) Reported [facility]: Reported Physicians:Ordering: Beard e, Esha AAttending: VINITA, JOCELYNConsulting: VINITA, JOCELYNCopy To: Vinita, Esha ID Date Data Source [id number] 05/07/2020 09:36:00 AM EST [facility] ([facility]) Name Value Range Interpretation Code Description Data Shelly rce(s) Supporting Document(s) TROPONIN T <0.01 NG/ML TROPONIN T [place] ([facility]) Note: TROPONIN T0.1 ng/ml Recommended as the clinical threshold value forTroponin T.Responsible Observer: () ID Date Data Source [id number] 05/07/2020 09:36:00 AM EST [facility] ([facility]) Name Value Range Interpretation Code Description Data Shelly rce(s) Supporting Document(s) Reported Physicians See Note Reported Physici ans [facility] ([facility]) Note: Reported Physicians:Ordering: Beard e, Esha AAttending: VINITA, JOCELYNConsulting: VINITA, JOCELYNCopy To: Vinita Esha ID Date Data Source [id number] 05/07/2020 09:36:00 AM EST [facility] ([facility]) Name Value Range Interpretation Code Description Data Shelly rce(s) Supporting Document(s) #BASO 0.05 10\\^3/uL #BASO [facility] ([facility]) Note: Responsible Observer: () #EOS 0.38 10\\^3/uL #EOS [facility] ([facility]) Note: Responsible Observer: () #IG 0.03 10\\^3/uL #IG [facility] ([facility]) Note: Responsible Observer: () #LYMPH 1.37 10\\^3/uL #LYMPH [facility] ([facility]) Note: Responsible Observer: () #MONO 0.85 10\\^3/uL #MONO [facility] ([facility]) Note: Responsible Observer: () #NEUT 6.85 10\\^3/uL #NEUT [facility] ([facility]) Note: Responsible Observer: () #NRBC 0.00 10\\^3/uL #NRBC [facility] ([facility]) Note: Responsible Observer: () %EOS 5 % %EOS [facility] ([facility]) Note: Responsible Observer: (CLD) %IG 0.3 % Above high normal %IG [facility] ([facility]) Note: Responsible Observer: () %LYMPH 13 % Below low normal %LYMPH [facility] ([facility]) Note: Responsible Observer: (CLD) %MONO 7 % %MONO [facility] ([facility]) Note: Responsible Observer: (CLD) %NRBC 0.0 % %NRBC [facility] ([facility]) Note: Responsible Observer: () BAND 0 % BAND [facility] ([facility]) Note: Responsible Observer: (CLD) BASO 0.5 % BASO [facility] ([facility]) Note: Responsible Observer: () Blasts [#] in Body fluid by Manual count 0 % BLASTS [facility] ([facility]) Note: Responsible Observer: (CLD) CBC W/MANUAL DIFF See Note CBC W/MANUAL DIFF [facility] ([facility]) Note: CO RRECTED REPORT COMPLETE BLOOD COUNTResponsible Observer: (CLD) EOS 4.0 % EOS [facility] ([facility]) Note: Responsible Observer: () Hematocrit [Pure volume fraction] of Blood by Automated count 41.4 % HEMATOCRIT [facility] ([facility]) Note: Responsible Observer: () Hemoglobin [Mass/volume] in Mixed venous blood by Oximetry 14.0 g/d L HEMOGLOBIN [facility] ([facility]) Note: Responsible Observer: () LYMPH 14.4 % Below low normal LYMPH [facility] ([facility]) Note: Responsible Observer: () MANUAL DIFF SEE BELOW MANUAL DIFF [facility] ([facility]) Note: Responsible Observer: (CLD) MCH 30.2 pg MCH [facility] ([facility]) Note: Responsible Observer: () MCHC 33.8 g/dL MCHC [facility] ([facility]) Note: Responsible Observer: () MCV 89.2 fL MCV [facility] ([facility]) Note: Responsible Observer: () MONO 8.9 % Above high normal MONO [facility] ([facility]) Note: Responsible Observer: () MPV 8.6 fL MPV [facility] ([facility]) Note: Responsible Observer: () NEUT 71.9 % NEUT [place] ([facility]) Note: Responsible Observer: () Platelets [#/area] in Blood by Microscopy high power field 300 10\\^ 3/uL PLATELETS [place] ([facility]) Note: Responsible Observer: () RBC 4.64 10\\^6/uL RBC [place] ([facility]) Note: Responsible Observer: () RBC MORPH NOT INDICATED RBC MORPH [place] ([facility]) Note: FOLLOWING RE SULTS REPORTED IN ERROR MANUAL DIFF NOTINDICATED <-- *Previously reported in error 05/07/20.0948.MD . . .M{ CORRECTResponsible Observer: () RDW 12.2 % RDW [place] ([facility]) Note: Responsible Observer: () SEGS 75 % SEGS [place] ([facility]) Note: Responsible Observer: (MOISES) WBC 9.5 10\\^3/uL WBC [place] ([facility]) Note: Responsible Observer: () ID Date Data Source [id number] 05/12/2020 06:51:00 AM EST [facility] Name Value Range Interpretation Code Description Data Shelly rce(s) Supporting Document(s) Procalcitonin [Mass/volume] in Serum or Plasma 0.04 ng/mL 0.00-0.08 [facility] A procalcitonin (PCT) level above 2.0 [...] ng/mL are obtained. ID Date Data Source [id number] 05/07/2020 10:37:00 AM [facility] Name Value Range Interpretation Code Description Data Shelly rce(s) Supporting Document(s) BNP 211 PG/ML 0 - 125 H [facility] ID Date Data Source [id number] 05/07/2020 10:37:00 AM [facility] Name Value Range Interpretation Code Description Data Shelly rce(s) Supporting Document(s) C reactive protein [Mass/volume] in Serum or Plasma by High sensitivity method 8.40 MG/L 1.00 - 3.00 H [facility] CDC/S HS-CRP CUT-OFF: RELATIVE RISK: <1.0 mg/L Low 1.0 - 3.0 mg/L Average >3.0 mg/L High Optimally, the average of HS-CRP results repeated two weeks apart should be used for risk assessment. ID Date Data Source [id number] 05/07/2020 10:27:00 AM [facility] Value Range Interpretation Code Description Data Shelly rce(s) Supporting Document(s) CBC W/MANUAL DIFF [facility] CORRECTE D REPORT COMPLETE BLOOD COUNT Leukocytes [#/volume] in Blood by Automated count 9.5 10^3/uL 4.2 - 1 1.0 [facility] Erythrocytes [#/volume] in Blood by Automated count 4.64 10^6/uL 4. 50 - 6.30 [facility] Hemoglobin [Mass/volume] in Blood 14.0 g/dL 14.0 - 16.0 [facility] Hematocrit [Volume Fraction] of Blood by Automated count 41.4 % 4 1.0 - 51.0 [facility] Erythrocyte mean corpuscular volume [Entitic volume] by Auto mated count 89.2 fL 80.0 - 94.0 [facility] Erythrocyte mean corpuscular hemoglobin [Entitic mass] by Automated count 30.2 pg 27.0 - 34.0 [facility] Erythrocyte mean corpuscular hemoglobin concentration [Mass/volume] by Automated count 33.8 g/dL 31.0 - 36.0 [facility] Erythrocyte distribution width [Ratio] by Automated count 12.2 % 11.5 - 14.8 [facility] Platelets [#/volume] in Blood by Automated count 300 10^3/uL 150 - 45 0 [facility] Platelet mean volume [Entitic volume] in Blood by Automated count 8.6 fL 7.4 - 10.4 [facility] Neutrophils/100 leukocytes in Blood by Automated count 71.9 % 37. 0 - 80.0 [facility] Lymphocytes/100 leukocytes in Blood by Manual count 14.4 % 25.0 - 40.0 L [facility] Monocytes/100 leukocytes in Blood by Automated count 8.9 % 3.0 - 8.0 H [facility] Eosinophils/100 leukocytes in Blood by Automated count 4.0 % 0.0 - 7.0 [facility] Basophils/100 leukocytes in Blood by Automated count 0.5 % 0.0 - 2.0 [facility] %IG 0.3 % 0.0 - 0.[address] [facility] al %NRBC 0.0 % 0.0 - 0.0 [facility] al Neutrophils [#/volume] in Blood by Automated count 6.85 10^3/uL 2.00 - 6.90 [facility] Lymphocytes [#/volume] in Blood by Automated count 1.37 10^3/uL 0.60 - 3.40 [facility] Monocytes [#/volume] in Blood by Automated count 0.85 10^3/uL 0.00 - 0.90 [facility] Eosinophils [#/volume] in Blood by Automated count 0.38 10^3/uL 0.00 - 0.70 [facility] Basophils [#/volume] in Blood by Automated count 0.05 10^3/uL 0.00 - 0.20 [facility] #IG 0.03 10^3/uL 0.00 - 0.10 [facility] #NRBC 0.00 10^3/uL 0.00 - 0.00 [facility] MANUAL DIFF SEE BELOW [facility] ital Segmented neutrophils/100 leukocytes in Blood by Manual count 75 % 37 - 80 [facility] BAND 0 % 0 - 5 [facility] %LYMPH 13 % 25 - 40 L [facility] %MONO 7 % 3 - 8 [facility] %EOS 5 % 0 - 7 [facility] Blasts/100 leukocytes in Blood by Manual count 0 % [facility] RBC MORPH NOT INDICATED [facility] FOLLOWING RESULTS REPORTED IN ERROR MANUAL DIFF { CORRECT ID Date Data Source [id number] 05/07/2020 10:26:00 AM [facility] Name Value Range Interpretation Code Description Data Shelly rce(s) Supporting Document(s) TROPONIN T <0.01 NG/ML 0.00 - 0.10 [facility] ospital TROPONIN T0.1 ng/ml Recommended as the c linical threshold value forTroponin T. ID Date Data Source [id number] 05/07/2020 10:06:00 AM [facility] Name Value Range Interpretation Code Description Data Shelly rce(s) Supporting Document(s) Erythrocyte sedimentation rate by Westergren method 18 mm/hr 0 - 20 [facility] SED RATE REENTER 18 [facility] ID Date Data Source [id number] 04/30/2020 08:37:00 AM EST [place] ([facility]) Name Value Range Interpretation Code Description Data Shelly rce(s) Supporting Document(s) Reported Physicians See Note Reported Physici ans [place] ([facility]) Note: Reported Physicians:Ordering: Esha De La Garza AAttending: ESHA TALAMANTESConsulting: JUSTUS TALAMANTESYNCopninfa To: Esha Talamantes ID Date Data Source [id number] 04/30/2020 08:37:00 AM EST [place] ([facility]) Name Value Range Interpretation Code Description Data Shelly rce(s) Supporting Document(s) CPK 59 U/L CPK [place] ([facility]) Note: Responsible Observer: (TAD) ID Date Data Source [id number] 04/30/2020 08:37:00 AM EST [place] ([facility]) Name Value Range Interpretation Code Description Data Shelly rce(s) Supporting Document(s) Reported Physicians See Note Reported Physici ans [place] ([facility]) Note: Reported Physicians:Ordering: Esha De La Garza AAttending: ESHA TALAMANTESConsulting: ESHA TALAMANTESCopninfa To: Esha Talamantes ID Date Data Source [id number] 04/30/2020 08:37:00 AM EST [place] ([facility]) Name Value Range Interpretation Code Description Data Shelly rce(s) Supporting Document(s) Cholesterol [Moles/volume] in Pericardial fluid 162 MG/DL CHOLESTEROL [place] ([facility]) Note: Responsible Observer: (TAD) CVE PANEL See Note CVE PANEL [place] ([facility]) Note: LIPID PANELResponsible Observe r: (TAD) HDL 40 MG/DL HDL [place] ([facility]) Note: Responsible Observer: (TAD) Cholesterol in LDL [Mass/volume] in Serum or Plasma by Direct as say 91 mg/dL LDL [place] ([facility]) Note: Responsible Observer: (TAD) LDL/HDL 2.28 LDL/HDL [place] ([facility]) Note: CVE RISK CHOL/HD L LDL/HDLMEN: 1/2 AVERAGE 3.43 1.00 AVERAGE 4.97 3.55 2X AVERAGE 9.55 6.25 3X AVERAGE 23.99 7.99WOMEN: 1/2 AVERAGE 3.27 1.47 AVERAGE 4.44 3.22 2X AVERAGE 7.05 5.03 3X AVERAGE 11.04 6.14Responsible Observer: (TAD) RISK FACTOR 4.1 RISK FACTOR [place] ([facility]) Note: Responsible Observer: (TAD) TRIGLYCERIDES 198 MG/DL Above high normal [facility]LYCERIDES [facility] Note: Responsible Observer: (TAD) ID Date Data Source [id number] 04/30/2020 08:37:00 AM EST [place] ([facility]) Name Value Range Interpretation Code Description Data Shelly rce(s) Supporting Document(s) Reported Physicians See Note Reported Physici ans [place] ([facility]) Note: Reported Physicians:Ordering: Beard e, Esha AAttending: VINITA, JOCELYNConsulting: VINITA, JOCELYNCopy To: Vinita, Esha ID Date Data Source [id number] 04/30/2020 08:37:00 AM [facility] ([facility]) Name Value Range Interpretation Code Description Data Shelly rce(s) Supporting Document(s) URIC ACID 5.1 MG/DL URIC ACID [place] ([facility]) Note: Responsible Observer: (TAD) ID Date Data Source [id number] 04/30/2020 08:37:00 AM EST [place] ([facility]) Name Value Range Interpretation Code Description Data Shelly rce(s) Supporting Document(s) Reported Physicians See Note Reported [facility] ([facility]) Note: Reported Physicians:Ordering: Beard e, Esha AAttending: VINITA, JOCELYNConsulting: VINITA, JOCELYNCopy To: Vinita, Esha ID Date Data Source [id number] 04/30/2020 08:37:00 AM EST [place] ([facility]) Name Value Range Interpretation Code Description Data Shelly rce(s) Supporting Document(s) TSH 2.19 uIU/mL TSH [place] ([facility]) Note: Responsible Observer: (TAD) ID Date Data Source [id number] 04/30/2020 09:31:00 AM [facility] Name Value Range Interpretation Code Description Data Shelly rce(s) Supporting Document(s) Thyrotropin [Units/volume] in Serum or Plasma by Detec tion limit <= 0.05 mIU/L 2.19 uIU/mL 0.47 - 5.01 [facility] ID Date Data Source [id number] 04/30/2020 09:27:00 AM EST [facility] Name Value Range Interpretation Code Description Data Shelly rce(s) Supporting Document(s) Urate [Mass/volume] in Serum or Plasma 5.1 MG/DL 2.5 - 8.5 [facility] ID Date Data Source [id number] 04/30/2020 09:27:00 AM EST [facility] Name Value Range Interpretation Code Description Data Shelly rce(s) Supporting Document(s) Creatine kinase [Enzymatic activity/volume] in Serum or Plasma 5 9 U/L 30 - 170 [facility] ID Date Data Source [id number] 04/30/2020 09:27:00 AM [facility] Name Value Range Interpretation Code Description Data Shelly rce(s) Supporting Document(s) [facility] Cholesterol [Mass/volume] in Serum or Plasma 162 MG/DL 131 - 200 [facility] Deprecated Triglyceride [Mass/volume] in Serum or Plasma 198 MG/DL 3 5 - 160 H [facility] HDL 40 MG/DL 29 - 86 [facility] Cholesterol in LDL [Mass/volume] in Serum or Plasma by Direc t assay 91 mg/dL 65 - 175 [facility] Cholesterol.total/Cholesterol in HDL [Mass Ratio] in Serum o r Plasma 4.1 3.4 - 4.9 [facility] LDL/HDL 2.28 1.00 - 3.55 [facility] ital CVE RISK CHOL/HDL LDL/HDLMEN: 1/2 AVERAGE 3.43 1.00 AVERAGE 4.97 3.55 2X AVERAGE 9.55 6.25 3X AVERAGE 23.99 7.99WOMEN: 1/2 AVERAGE 3.27 1.47 AVERAGE 4.44 3.22 2X AVERAGE 7.05 5.03 3X AVERAGE 11.04 6.14 ID Date Data Source [id number] 04/12/2020 09:42:00 AM EDT [facility] Name: TOLU RATLIFF : 1955 Age: 64 MR#: [id number] Admit Date: 04/11/20 Provider: Honorio De Souza [...] % (Auto) 68.7, Lymph % (Auto) 20.9, [place] % (Auto) 8.4, Eos % (Auto) 1.2, [...] earance Clear, Urine pH 5.0, Ur Specific [place] 1.010,Urine Protein Negative, Urine Ketones Negative, Urine [...] 94.0 H, Lymph % (Auto) 4.2 L, [place] % (Auto) 1.2 L, Eos % (Auto) [...] was instructed to f/u with PMD for certification and selection specialist referral. Pt was clinically and vitally stable [...] metformin 500 mg PO DAILY 04/11/20 [History] ishdtdkdjgzd-qytgkuio-zsktro 1 tab PO DAILY 04/11/20 [History] azithromycin [...] PRN (Reason: Shortness Of Breath) RF: 0 dqcoeyhfxpvb-kgdqfquz-ortlht Tablet 1 tab PO DAILY RF: 0 [...] rce(s) Supporting Document(s) ID Date Data Source [id number] 04/12/2020 07:40:00 AM EDT [facility] @04/12/20 0729: MANUAL DIFF added. RFLXG = DIFF. @04/12/20 0729: MANUAL DIFF added. RFLXG = DIFF. Name Value Range Interpretation Code Description Data Shelly rce(s) Supporting Document(s) Leukocytes [#/volume] in Blood by Automated count 14.6 10*3/uL 4.45-10.71 Above high normal [facility] Erythrocytes [#/volume] in Blood by Automated count 4.85 10*6/uL 4.3- 6.1 N [facility] Hemoglobin [Moles/volume] in Blood 14.7 g/dL 13-18 N [facility] Hematocrit [Volume Fraction] of Blood by Automated count 44.4 % 4 2-52 N [facility] Erythrocyte mean corpuscular volume [Ent itic volume] in Cord blood by Automated count 91.5 fL 80-96 N [facility] ital Erythrocyte mean corpuscular hemoglobin [Entitic mass] by Automated count 30.3 pg 27-31 [facility] E[facility]th[facility] mean corpuscular hemoglobin concentration [Mass/volume] in Cord blood 33.1 g/dL 33-37 N [facility] ital Erythrocyte distribution width [Entitic volume] by Automated count 13 % 11-15 N [facility] Platelets [#/volume] in Blood by Automated count 235 10*3/uL 130-472 N [facility] Platelet mean volume [Entitic volume] in Blood 9.5 fL 9.1-13.1 N [facility] Neutrophils/100 leukocytes in Blood by Automated count 94.0 % 41-77 Above high normal [facility] @PERFORM SLIDE SCAN IF NOT AGREE MAN DIF F@DOCUMENT SLIDE SCAN COMMENT Neutrophils [#/volume] in Blood by Automated count 13.8 U 1.7-7.6 Above high normal [facility] Lymphocytes/100 leukocytes in Blood by Automated count 4.2 % 14-46 Below low normal [facility] Lymphocytes [#/volume] in Blood by Automated count 0.6 U 0.6-4.6 N [facility] Monocytes/100 leukocytes in Blood by Automated count 1.2 % 4-12 Below low normal [facility] Monocytes [#/volume] in Blood by Automated count 0.2 U 0.2-1.2 N [facility] Eosinophils/100 leukocytes in Blood by Automated count 0.0 % 0-7 N [facility] Eosinophils [#/volume] in Blood by Automated count 0.0 U 0.0-0.5 N [facility] Basophils/100 leukocytes in Blood by Automated count 0.1 % 0.4-1.3 Below low normal [facility] Basophils [#/volume] in Blood by Automated count 0.0 U 0.0-0.2 N [facility] NUCLEATED RED BLOOD CELL 0 % [facility] NUCLEATED RED BLOOD CELL# 0 U [facility] Immature granulocytes [Presence] in Blood by Automated count 0-2 N [facility] Immature granulocytes [#/volume] in Blood by Automated count 0.1 U 0-0.1 N [facility] Manual Differential panel - Blood Manual Diff Added [facility] ID Date Data Source [id number] 04/12/2020 07:53:00 AM EDT [facility] @04/12/20 07: MANUAL DIFF added. RFLXG = DIFF. @04/12/20 07: MANUAL DIFF added. RFLXG = DIFF. Name Value Range Interpretation Code Description Data Shelly rce(s) Supporting Document(s) Urea nitrogen [Mass/volume] in Serum or Plasma 19 mg/dL 9-23 N [facility] Sodium [Moles/volume] in Serum or Plasma 138 mmol/L 132-146 N [facility] Potassium [Moles/volume] in Serum or Plasma 4.6 mmol/L 3.5-5.5 N [facility] Chloride [Moles/volume] in Serum or Plasma 105 mmol/L 99-109 N [facility] Carbon dioxide, total [Moles/volume] in Serum or Plasma 25 mmol/L 20 -31 N [facility] Anion gap in Serum or Plasma 13 mmol/L 8-16 N [facility] Glucose [Mass/volume] in Serum or Plasma 212 mg/dL 74-106 Above high normal [facility] Creatinine 1.1 mg/dL 0.5-1.1 [facility] Glomerular filtration rate/1.73 sq M.pre dicted [Volume Rate/Area] in Serum or Plasma Greater Than 60 ABOVE 60 [facility] Alanine aminotransferase [Enzymatic acti vity/volume] in Serum or Plasma by With P-5'-P 30 U/L 10-49 [facility] ital Aspartate aminotransferase [Enzymatic ac tivity/volume] in Serum or Plasma by With P-5'-P 11 U/L 0-33 [facility] pital Alkaline phosphatase [Enzymatic activity/volume] in Serum or Plasma 58 U/L 45-129 N [facility] Calcium [Mass/volume] in Serum or Plasma 9.2 mg/dL 8.5-10.1 [facility] Bilirubin.total [Mass/volume] in Serum or Plasma 0.5 mg/dL 0.3-1.2 [facility] Albumin [Mass/volume] in Serum or Plasma by Bromocresol purple (BCP) dye binding method 3.4 g/dL 3.2-4.8 [facility] ital Protein [Mass/volume] in Serum or Plasma 7.1 g/dL 5.7-8.2 [facility] ID Date Data Source [id number] 04/12/2020 07:40:00 AM EDT [facility] @04/12/20728: MANUAL DIFF added. RFLXG = DIFF. @04/12/20728: MANUAL DIFF added. RFLXG = DIFF. Name Value Range Interpretation Code Description Data Shelly rce(s) Supporting Document(s) Cells counted [#] 100 [facility] Neutrophils [#/volume] in Blood by Manual count 97 % 41-77 Above high normal [facility] @Are you sure? Please be sure this value is correct YES Lymphocytes [#/volume] in Blood by Manual count 3 % 14-46 Below low normal [facility] Platelets [#/volume] in Blood by Estimate APPEARS NORMAL NORMAL [facility] Morphology [Interpretation] in Blood Narrative APPEARS NORMAL NORMAL [facility] ID Date Data Source [id number] 04/12/2020 07:53:00 AM EDT [facility] @04/12/20728: MANUAL DIFF added. RFLXG = DIFF. @04/12/20728: MANUAL DIFF added. RFLXG = DIFF. Name Value Range Interpretation Code Description Data Shelly rce(s) Supporting Document(s) Troponin I.cardiac [Mass/volume] in Serum or Plasma Less Than 0.015 0.00-0.09 N [facility] Less than 0.09 NG/ML Negative0.10 - 0.77 NG/ML High Risk0.78 NG/ML or Greater PositiveThe WHO defined the cutoff (definition for diagnosis of ID)for this method as 0.78 ng/ml. ID Date Data Source [id number] 04/12/2020 06:40:00 AM [facility] ([facility]) Name Value Range Interpretation Code Description Data Shelly rce(s) Supporting Document(s) Reported Physicians See Note Reported Terii karoline [facility] ([facility]) Note: Reported Physicians:Ordering: Pradeep Ferraraending: John De Souzaitting: Jeremiah, VikramCopy To: Jeremiah VikramCopy To: Esha Talamantes ID Date Data Source [id number] 04/12/2020 06:40:00 AM [facility] ([facility]) Name Value Range Interpretation Code Description Data Shelly rce(s) Supporting Document(s) Troponin I.cardiac [Mass/volume] in Serum or Plasma Less Than 0.015 Normal Troponin I [facility] ([facility]) Note: Less than 0.09 NG/ML Negative 0.10 - 0.77 NG/ML High Risk0.78 NG/ML or Greater PositiveThe WHO defined the cutoff (definition for diagnosis of ID)for this method as 0.78 ng/ml.Responsible Observer: Troponin I Troponin I 600.1101 (G) ID Date Data Source [id number] 04/12/2020 06:40:00 AM EDT [facility] ([facility]) Name Value Range Interpretation Code Description Data Shelly rce(s) Supporting Document(s) MANUAL DIFF See Note MANUAL DIFF [place] ([facility]) Note: NOTES OTHER/NOT INTERPRETED Cells counted 100 Lymphocytes # Bld Manual 3 %Morphology Bld-Imp APPEARS NORMAL Neutrophils # Bld Manual 97 %Platelet # Bld Est APPEARS NORMAL @Are you sure? Please be sure this value is correct YES@04/12/20 0729: MANUAL DIFF added. RFLXG = DIFF.Responsible Observer: TOTAL CELLS TOTAL CELLS COUNTED 100.2105 (A) ID Date Data Source [id number] 04/12/2020 06:40:00 AM EDT [facility] ([facility]) Name Value Range Interpretation Code Description Data Shelly rce(s) Supporting Document(s) Reported Physicians See Note Reported Physici ans [place] ([facility]) Note: Reported Physicians:Ordering: Pradeep Ferraraending: John De Souzaitting: Pete De Souza To: Ancelmo De SouzaamCopninfa To: Esha Talamantes ID Date Data Source [id number] 04/12/2020 06:40:00 AM EDT [facility] ([facility]) Name Value Range Interpretation Code Description Data Shelly rce(s) Supporting Document(s) Alanine aminotransferase [Enzymatic acti vity/volume] in Serum or Plasma by With P-5'-P 30 enzyme_unit_per_liter Normal ALT SerPl w P-5' -P-cCnc [place] ([facility]) Note: Responsible Observer: SGPT/ALT SGP T/ALT 400.1750 (G) Calcium [Mass/volume] in Serum or Plasma 9.2 MilliGramsPerDeciLiter_[Mass_Concentration_Units] Normal Calcium SerPl-mCnc [place] ([facility]) Note: Responsible Observer: Calcium Calc ium 400.2500 (G) Bilirubin.total [Mass/volume] in Serum or Plasma 0.5 MilliGramsPerDeciLiter_[Mass_Concentration_Units] Normal Bilirub [facility] ([facility]) Note: Responsible Observer: T ABDIRAHMAN Total Bilirubin 400.2600 (G) Carbon dioxide, total [Moles/volume] in Serum or Plasm a 25 MilliMolesPerLiter_[Substance_Concentration_Units] Normal CO2 [facility] ([facility]) Note: Responsible Observer: CO2 Carbon D ioxide 400.1400 (G) Chloride [Moles/volume] in Serum or Plasma 105 MilliMolesPerLiter_[Substance_Concentration_Units] Normal Chloride [facility] ([facility]) Note: Responsible Observer: Chloride Chl oride 400.1250 (G) Glucose [Mass/volume] in Serum or Plasma 212 MilliGramsPerDeciLiter_[Mass_Concentration_Units] Above high normal Glucose [facility] ([facility]) Note: Responsible Observer: Glucose Gluc ose 400.1500 (G) Potassium [Moles/volume] in Serum or Plasma 4.6 MilliMolesPerLiter_[Substance_Concentration_Units] Normal Potassium [facility] ([facility]) Note: Responsible Observer: K Potassium 400.1210 (G) Protein [Mass/volume] in Serum or Plasma 7.1 GramsPerDeciLiter_[Mass_Concentration_Units] Normal Pro t [facility] ([facility]) Note: Responsible Observer: TP Total Pro tein 400.2800 (G) Sodium [Moles/volume] in Serum or Plasma 138 MilliMolesPerLiter_[Substance_Concentration_Units] Normal Sodium [facility] ([facility]) Note: Responsible Observer: Sodium Sodiu m 400.1100 (G) Aspartate aminotransferase [Enzymatic ac tivity/volume] in Serum or Plasma by With P-5'-P 11 enzyme_unit_per_liter Normal AST SerPl w P-[facility]' [facility] [place] [facility]) Note: Responsible Observer: SGOT / AST S GOT / AST 400.1900 (G) Urea nitrogen [Mass/volume] in Serum or Plasma 19 MilliGramsPerDeciLiter_[Mass_Concentration_Units] Normal BUN [facility] ([facility]) Note: Responsible Observer: BUN Blood Ur ea Nitrogen 400.1000 (G) Anion gap in Serum or Plasma 13 MilliMolesPerLiter_[Substance_Concentration_Units] Normal Anion Gap [facility] ([facility]) Note: Responsible Observer: ANION GAP AN ION GAP 400.1402 (E) Albumin [Mass/volume] in Serum or Plasma by Bromocresol purple (BCP) dye binding method 3.4 GramsPerDeciLiter_[Mass_Concentration_Units] Normal Albumin [facility] ([facility]) Note: Responsible Observer: Albumin [place] min 400.2700 (G) Alkaline phosphatase [Enzymatic activity/volume] in Se rum or Plasma 58 enzyme_unit_per_liter Normal ALP [facility] ( [facility]) Note: Responsible Observer: ALP Alkaline Phosphatase 400.2000 (G) Glomerular filtration rate/1.73 sq M.pre dicted [Volume Rate/Area] in Serum or Plasma Greater Than 60 G[facility]BS[facility].pred [facility] [place] [facility]) Note: Responsible Observer: GFR Glomerul ar Filt Rate Calc 400.1605 (D) Creatinine [Moles/volume] in Vitreous fluid 1.1 MilliGramsPerDeciLiter_[Mass_Concentration_Units] Normal Creatinine [place] ([facility]) Note: Responsible Observer: Creatinine C reatinine 400.1600 (G) ID Date Data Source [id number] 04/12/2020 06:40:00 AM EDT [place] ([facility]) Name Value Range Interpretation Code Description Data Shelly rce(s) Supporting Document(s) Erythrocyte mean corpuscular volume [Ent itic volume] in Cord blood by Automated count 91.5 FemtoLiter_[SI_Volume_Units] Normal MCV Bld Co Auto [place] ([facility]) Note: Responsible Observer: MCV MCV 100 .0600 (B) Erythrocyte distribution width [Entitic volume] by Automated cou nt 13 percent Normal RDW RBC Auto [facility] ([facility]) Note: Responsible Observer: RDW RDW 100 .0900 (B) Manual Differential panel - Blood Manual Diff Added Manual diff Bld [place] ([facility]) Note: Responsible Observer: CBC Manual D ifferential Added 100.1990 (B) Platelet mean volume [Entitic volume] in Blood 9.5 FemtoLite r_[SI_Volume_Units] Normal PMV Bld [facility] ([facility]) Note: Responsible Observer: MPV MPV 100 .1100 (B) Immature granulocytes [Presence] in Blood by Automated count See No te Normal Imm Granulocytes Bld Ql Auto [facility] ([facility]) Note: [id number] Ob 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: IG% IG% 100.1375 (B) Hematocrit [Volume Fraction] of Blood by Automated count 44.4 perce nt Normal Hct VFr Bld Auto [facility] ([facility]) Note: Responsible Observer: HEMATOCRIT H EMATOCRIT 100.0500 (B) Erythrocyte mean corpuscular hemoglobin concentration [Mass/volume] in Cord blood 33.1 GramsPerDeciLiter_[Mass_Concentration_Units] Normal MCHC BldCo-mCnc [facility] ([facility]) Note: Responsible Observer: MCHC MCHC 1 00.0800 (B) Immature granulocytes [#/volume] in Blood by Automated count 0.1 Un it Imm Granulocytes # d Auto [place] ([facility]) Note: Responsible Observer: IG# IG# 100 .1400 (B) Monocytes/100 leukocytes in Blood by Automated count 1.2 percent Below low normal Monocytes/leuk NFr Bld Auto [facility] ([facility]) Note: Responsible Observer: MONO % MONO % 100.1225 (B) Hemoglobin [Moles/volume] in Blood 14.7 GramsPerDeciLiter_[Mass_Concentration_Units] Normal Hgb Bld-sCnc [facility] ([facility]) Note: Responsible Observer: HGB HEMOGLOB IN 100.0400 (B) Leukocytes [#/volume] in Blood by Automated count 14.6 ThousandsPerMicroLiter_[Number_Concentration_Units] Above hi gh normal WBC # Bld Auto [facility] ([facility]) Note: Responsible Observer: WBC WHITE BL OOD COUNT 100.0100 (E) Basophils [#/volume] in Blood by Automated count 0.0 Unit Normal Basophils # Bld Auto [facility] ([facility]) Note: Responsible Observer: BASO # BASO# 100.1350 (B) Basophils/100 leukocytes in Blood by Automated count 0.1 percent Below low normal Basophils/leuk NFr Bld Auto [facility] ([facility]) Note: Responsible Observer: BASO % BASO % 100.1325 (B) Eosinophils [#/volume] in Blood by Automated count 0.0 Unit Normal Eosinophil # Bld Auto [place] ([facility]) Note: Responsible Observer: EOS # EOS# 100.1300 (D) Eosinophils/100 leukocytes in Blood by Automated count 0.0 percent Normal Eosinophil/leuk NFr Bld Auto [facility] ([facility]) Note: Responsible Observer: EOS % EOS % 100.1275 (B) Lymphocytes [#/volume] in Blood by Automated count 0.6 Unit Normal Lymphocytes # Bld Auto [facility] ([facility]) Note: Responsible Observer: LYMPH # LYMP H# 100.1200 (B) Lymphocytes/100 leukocytes in Blood by Automated count 4.2 perce nt Below low normal Lymphocytes/leuk NFr Bld Auto [facility] ([facility]) Note: Responsible Observer: LYMPH % LYMP H % 100.1175 (B) Monocytes [#/volume] in Blood by Automated count 0.2 Unit Normal Monocytes # Bld Auto [facility] ([facility]) Note: Responsible Observer: MONO # MONO# 100.1250 (C) Neutrophils [#/volume] in Blood by Automated count 13.8 Unit Above high normal Neutrophils # Bld Auto [facility] ([facility] ) Note: Responsible Observer: NEUT# NEUT# 100.1150 (B) Neutrophils/100 leukocytes in Blood by Automated count 94.0 perc ent Above high normal Neutrophils/leuk NFr Bld Auto [facility] ([facility]) Note: @PERFORM SLIDE SCAN IF NOT AGREE M AN DIFF@DOCUMENT SLIDE SCAN COMMENTResponsible Observer: NEUT% NEUT% 100.1125 (B) Platelets [#/volume] in Blood by Automated count 235 ThousandsPerMicroLiter_[Number_Concentration_Units] Normal Platelet # Bld Auto [facility] ([facility]) Note: Responsible Observer: PLATELET COU NT PLATELET COUNT 100.1000 (D) Erythrocyte mean corpuscular hemoglobin [Entitic mass] by Automated count 30.3 PicoGram_[SI_Mass_Units] Normal MCH RBC Qn Auto [place] ([facility]) Note: Responsible Observer: MCH MCH 100 .0700 (B) Erythrocytes [#/volume] in Blood by Automated count 4. 85 MillionsPerMicroLiter_[Number_Concentration_Units] Normal RBC # Bld Auto [facility] ([facility]) Note: Responsible Observer: RBC Red Bloo d Count 100.0300 (B) NUCLEATED RED BLOOD CELL# 0 Unit NUCLEATED RED BLOOD CELL# [facility] ([facility]) Note: Responsible Observer: NRBC# NUCLEA SABRINA RBC 100.1362 (A) NUCLEATED RED BLOOD CELL 0 percent NUCLEATED R ED BLOOD CELL [facility] ([facility]) Note: Responsible Observer: NRBC% NRBC% 100.1360 (B) Notes [TIMP] See Note NOTES [facility] ([facility]) Note: @04/12/20 0729: MANUAL DIFF added. RFLXG = DIFF. ID Date Data Source [id number] 04/12/2020 12:34:00 AM [facility] @ RYAN DATE was changed from 04/12/20 to 04/11/20@ by SHEEBA. Old specimen was [id number]. Name Value Range Interpretation Code Description Data Shelly rce(s) Supporting Document(s) Troponin I.cardiac [Mass/volume] in Serum or Plasma Less Than 0.015 0.00-0.09 N [facility] Less than 0.09 NG/ML Negative0.10 - 0.77 NG/ML High Risk0.78 NG/ML or Greater PositiveThe WHO defined the cutoff (definition for diagnosis of ID)for this method as 0.78 ng/ml. ID Date Data Source [id number] 04/11/2020 10:42:00 PM [facility] @04/11/20 1840: 4hr Lactic Acid added. R FLXG = RFX LACTIC. Name Value Range Interpretation Code Description Data Shelly rce(s) Supporting Document(s) Lactate [Mass/volume] in Serum or Plasma 1.7 mmol/L 0.5-2.2 N [facility] A HIGH RESULT ON THIS 4HR LACTIC ACID WI LL NOT REFLEXANOTHER - YOU MUST ORDER ONE IF YOU WANT IT REPEATED ID Date Data Source [id number] 04/11/2020 10:10:00 PM EDT [place] ([facility]) Name Value Range Interpretation Code Description Data Shelly rce(s) Supporting Document(s) Reported Physicians See Note Reported Physici ans [place] ([facility]) Note: Reported Physicians:Ordering: Kian ArguelloAttending: Shruthi De SouzakrAzuldmitting: Pete De Souza To: Esha Talamantes ID Date Data Source [id number] 04/11/2020 10:10:00 PM EDT [place] ([facility]) Name Value Range Interpretation Code Description Data Shelly rce(s) Supporting Document(s) Lactate [Mass/volume] in Serum or Plasma 1.7 MilliMolesPerLiter_[Substance_Concentration_Units] [facility] Note: A HIGH RESULT ON THIS 4HR LACTIC A PIPO WILL NOT REFLEXANOTHER - YOU MUST ORDER ONE IF YOU WANT IT REPEATEDResponsible Observer: 4HR LACTIC RPT 4HR LACTIC ACID 400.2840 (G) Notes [TIMP] See Note NOTES [facility] ([facility]) Note: @04/11/20 1840: 4hr Lactic Acid ad ded. RFLXG = RFX LACTIC. ID Date Data Source [id number] 04/11/2020 10:10:00 PM EDT [place] ([facility]) Name Value Range Interpretation Code Description Data Shelly rce(s) Supporting Document(s) Reported Physicians See Note [facility]: Reported Physicians:Ordering: Marly Ferrarattending: Jeremiah, VikramAdmitting: Jeremiah, VikramCopy To: Jeremiah VikramCopy To: Esha Talamantes ID Date Data Source [id number] 04/11/2020 10:10:00 PM EDT [place] ([facility]) Name Value Range Interpretation Code Description Data Shelly rce(s) Supporting Document(s) Troponin I.cardiac [Mass/volume] in Serum or Plasma Less Than 0.015 Normal Troponin I [facility] ([facility]) Note: Less than 0.09 NG/ML Negative 0.10 - 0.77 NG/ML High Risk0.78 NG/ML or Greater PositiveThe WHO defined the cutoff (definition for diagnosis of ID)for this method as 0.78 ng/ml.Responsible Observer: Troponin I Troponin I 600.1101 (G) Notes [TIMP] See Note NOTES [facility] ([facility]) Note: @ RYAN DATE was changed from 04/12 to 04/11/20@ by SHEEBA. Old specimen was [id number]. ID Date Data Source [id number] 04/11/2020 10:05:00 PM EDT [facility] TOBAR COVID-19 IS AN ISOTHERMAL NA A TECHNOLOGYNORMAL VALUE IS "SARS-COV-2 COVID 19 NOT DETECTED"False negative results may occur if a specimen is improperlycollected,transported or handled.False negative results may also occur if amplicationinhibitors are present in the specimen or if inadequatelevels of viruses are present in the specimen.As with any molecular test, if the virus mutates in [facility] region, Covid-19 may not be detected [...] rce(s) Supporting Document(s) ID Date Data Source [id number] 04/11/2020 09:30:00 PM EDT [facility] ([facility]) Name Value Range Interpretation Code Description Data Shelly rce(s) Supporting Document(s) Reported Physicians See Note Reported Physici karoline [place] ([facility]) Note: Reported Physicians:Ordering: Kian ArguelloAttending: John De Souzaitting: Pete De Souza To: VinitaEsha ID Date Data Source [id number] 04/11/2020 09:30:00 PM EDT [place] ([facility]) Name Value Range Interpretation Code Description Data Shelly rce(s) Supporting Document(s) TOBAR COVID-19 SCHOOL See Note TOBAR COVID- 19 SCHOOL [place] ([facility]) Note: TOBAR COVID-19 IS AN ISOTHER MAL KRISTEN TECHNOLOGYNORMAL VALUE IS "SARS-COV-2 COVID 19 NOT DETECTED"False negative results may occur if a specimen is improperlycollected,transported or handled.False negative results may also occur if amplicationinhibitors are present in the specimen or if inadequatelevels of viruses are present in the specimen.As with any molecular test, if the virus mutates in [facility] region, Covid-19 may not be detected or may bedetected less predictably.ID NOW COVID-19 is intended for testing a swab directlywithout elution in viral transport media as dilution willresult in decreased detection of low positive samples thatare near the limit of detection of the test.SWAB SAMPLES ELUTED IN VTM ARE NOT APPROPRIATE FOR USE INTHIS TEST.NOSNo Organisms [id number] Organisms Detected ID Date Data Source [id number] 04/11/2020 09:17:00 PM EDT [facility] Name: TOLU RATLIFF : 1955 Age: 64 MR#: [id number] Admit Date: 04/11/20 Provider: Leonardo Alonso Room [...] 30 years old and hefollows up with [facility] cardiology in [place]. He reported being replaced before on anticoagulation [...] drug use. 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 Scott Mei MD ER [id number] ATTENDING PHYSICIAN DATE OF DATE OF EXAM/TIME [...] MD Techn: SHOLA Trans Dt/Tm: Trans by: JERRY Prt Dt/Tm: [id number]: Total DLP = 407.00 mGy-cm 0041-0112: Total Radiation Dose = 2.4013 mSv Lifetime Dose: 4.5186 mSv Name Value Range Interpretation Code Description Data Shelly rce(s) Supporting Document(s) ID Date Data Source [id number] 04/11/2020 08:08:00 PM EDT [facility] Reason for ordering culture: Abnormal fi ndings UAMethod of Collection:: Voided Name Value Range Interpretation Code Description Data Shelly rce(s) Supporting Document(s) Color of Urine [facility] Appearance of Urine CLEAR [facility] pH of Urine by Test strip 5.0 5-8 [facility] Specific gravity of Urine by Refractometry 1.010 1.005-1.030 [facility] Leukocyte esterase [Presence] in Urine by Test strip NEGAT [place] [facility] Nitrite [Presence] in Urine by Test strip NEGATIVE [facility] Protein [Presence] in Urine by Test strip NEGATIVE [facility] Glucose [Mass/volume] in Urine by Automated test strip NEGATIVE NEG ATIVE [facility] Ketones [Presence] in Urine by Test strip NEGATIVE [facility] Urobilinogen [Presence] in Urine 0.2-1 EU/dl [facility] Bilirubin.total [Presence] in Urine by Automated test strip NEGATIVE [facility] Erythrocytes [#/volume] in Urine by Test strip NEGATIVE NEGATIVE [facility] URINE MICROSCOPIC? (CIF) NO [facility] ID Date Data Source [id number] 04/11/2020 07:59:00 PM [facility] ([facility]) Name Value Range Interpretation Code Description Data Shelly rce(s) Supporting Document(s) Reported Physicians See Note Reported Physici ans [place] ([facility]) Note: Reported Physicians:Ordering: Kian ArguelloAttending: Talita Cannon To: Esha Talamantes ID Date Data Source [id number] 04/11/2020 07:59:[facility] Name Value Range Interpretation Code Description Data Shelly rce(s) Supporting Document(s) Urobilinogen [Presence] in Urine See Note Uro bilinogen Ur Ql [place] ([facility]) Note: 0.2 EU/dl0.2 EU/[id number] E U/dlResponsible Observer: UROBILINOGEN UROBILINOGEN 300.4500 (C) Erythrocytes [#/volume] in Urine by Test strip NEGATIVE RBC # Ur Strip [place] ([facility]) Note: Responsible Observer: BLOOD BLOOD 300.4652 (C) Protein [Presence] in Urine by Test strip See Note Prot Ur Ql Strip [place] ([facility]) Note: [id number] EResponsible Observer: PROTEIN PROTEIN 300.3750 (C) Ketones [Presence] in Urine by Test strip See Note Ketones Ur Ql Strip [place] ([facility]) Note: [id number] EResponsible Observer: KETONE KETONE 300.3900 (C) Bilirubin.total [Presence] in Urine by Automated test strip See Not e Bilirub Ur Ql Strip.auto [place] ([facility]) Note: [id number] EResponsible Observer: BILIRUBIN BILIRUBIN 300.4550 (C) Glucose [Mass/volume] in Urine by Automated test strip NEGATIVE Glucose Ur Strip.auto-mCnc [place] ([facility]) Note: Responsible Observer: GLUCOSE GLUC OSE 300.3850 (C) Appearance of Urine See Note Appearance Ur GR [place] ([facility]) Note: CLEARCLEARLCLEARResponsible Observ er: APPEARANCE APPEARANCE 300.3400 (A) Color of Urine See Note Color Ur [place] ([facility]) Note: YELLOWYELLOWLYELLOWResponsible Obs erver: COLOR COLOR 300.3330 (A) Leukocyte esterase [Presence] in Urine by Test strip See Note Leukocyte esterase Ur Ql Strip [place] ([facility]) Note: [id number] EResponsible Observer: LEUKOCYTES LEUKOCYTES 300.3576 (C) Nitrite [Presence] in Urine by Test strip See Note Nitrite Ur Ql Strip [place] ([facility]) Note: [id number] EResponsible Observer: NITRITE NITRITE 300.3652 (B) pH of Urine by Test strip 5.0 pH Ur Stri p [place] ([facility]) Note: Responsible Observer: PH PH 300.3 450 (C) Specific gravity of Urine by Refractometry 1.010 Sp Gr Ur Refractometry [place] ([facility]) Note: Responsible Observer: SP GRAVITY U RINE SPECIFIC GRAVITY-MAN 300.3475 (C) URINE MICROSCOPIC? (CIF) NO URINE MICRO SCOPIC? (CIF) [place] ([facility]) Note: Responsible Observer: UA URINE KEENAN ROSCOPIC PENDING 300.4665 (D) Notes [TIMP] See Note NOTES [place] ([facility]) Note: Reason for ordering culture: Abnor mal findings UAMethod of Collection:: Voided ID Date Data Source [id number] 04/11/2020 07:16:00 PM EDT [facility] [address] [place] [address] [phone] NAME SEX PT STATUS ACCOUNT NUMBER Tolu Ratliff [facility] ER [id number] ORDERING PHYSICIAN LOCATION MEDICAL RECORD NO. Kian Cannon MD ER [id number] ATTENDING PHYSICIAN DATE OF DATE OF EXAM/TIME [...] Trans Dt/Tm: Trans by: DT Prt Dt/Tm: 2733-4279: Total DLP = 683.00 mGy-cm 2490-2019: Total Radiation Dose = 2.1173 mSv Lifetime Dose: 2.1173 mSv Name Value Range Interpretation Code Description Data Shelly rce(s) Supporting Document(s) ID Date Data Source [id number] 04/11/2020 06:34:00 PM EDT [facility] [address] [place], [place] [id number] [phone] NAME SEX PT STATUS ACCOUNT NUMBER Tolu Ratliff [facility] ER [id number] ORDERING PHYSICIAN LOCATION MEDICAL RECORD NO. Kian Cannon MD ER [id number] ATTENDING PHYSICIAN DATE OF DATE OF EXAM/TIME [...] Trans Dt/Tm: Trans by: DT Prt Dt/Tm: 1579-5997: Total DLP = 0.00 mGy-cm Fluoroscopy Time (in secs): Name Value Range Interpretation Code Description Data Shelly rce(s) Supporting Document(s) ID Date Data Source [id number] 04/11/2020 06:40:00 PM [facility] Special Instructions: Lab may order repe at test if initial test elevatedPhysician If elevated, reflex second test in 4-6 hrs Name Value Range Interpretation Code Description Data Shelly rce(s) Supporting Document(s) Lactic w Rfx (if elevated) 2.1 mmol/L 0.5-2.2 N [facility] Called to RYAN @ 1835 by Carlos Child. Results readback. ID Date Data Source [id number] 04/16/2020 05:57:00 PM [facility] Special Instructions: Lab may order repe at test if initial test elevatedPhysician If elevated, reflex second test in 4-6 hrs Name Value Range Interpretation Code Description Data Shelly rce(s) Supporting Document(s) Bacteria identified in Blood by Culture [facility] NO GROWTH AFTER 5 DAYS ID Date Data Source [id number] 04/11/2020 11:28:00 PM [facility] Special Instructions: from the last lab sample, otherwise, from the next Name Value Range Interpretation Code Description Data Shelly rce(s) Supporting Document(s) Erythrocyte sedimentation rate by Westergren method 13 mm/hr 0-20 N [facility] @[place] manual test result: 13@by Tori Schultz at 04/11/20 2328. ID Date Data Source [id number] 04/11/2020 06:00:00 PM EDT [facility] Name Value Range Interpretation Code Description Data Shelly rce(s) Supporting Document(s) Leukocytes [#/volume] in Blood by Automated count 10.4 10*3/uL 4.45-1 0.71 N [facility] Erythrocytes [#/volume] in Blood by Automated count 5.03 10*6/uL 4.3- 6.1 N [facility] Hemoglobin [Moles/volume] in Blood 15.5 g/dL 13-18 N [facility] Hematocrit [Volume Fraction] of Blood by Automated count 46.2 % 4 2-52 N [facility] Erythrocyte mean corpuscular volume [Ent itic volume] in Cord blood by Automated count 91.8 fL 80-96 N [facility] ital Erythrocyte mean corpuscular hemoglobin [Entitic mass] by Automated count 30.8 pg 27-31 N [facility] l Erythrocyte mean corpuscular hemoglobin concentration [Mass/volume] in Cord blood 33.5 g/dL 33-37 N [facility] Erythrocyte distribution width [Entitic volume] by Automated count 12 % 11-15 N [facility] Platelets [#/volume] in Blood by Automated count 243 10*3/uL 130-472 N [facility] Platelet mean volume [Entitic volume] in Blood 9.3 fL 9.1-13.1 N [facility] Neutrophils/100 leukocytes in Blood by Automated count 68.7 % 41- 77 N [facility] Neutrophils [#/volume] in Blood by Automated count 7.2 U 1.7-7.6 N [facility] Lymphocytes/100 leukocytes in Blood by Automated count 20.9 % 14- 46 N [facility] Lymphocytes [#/volume] in Blood by Automated count 2.2 U 0.6-4.6 N [facility] Monocytes/100 leukocytes in Blood by Automated count 8.4 % 4-12 N [facility] Monocytes [#/volume] in Blood by Automated count 0.9 U 0.2-1.2 N [facility] Eosinophils/100 leukocytes in Blood by Automated count 1.2 % 0-7 N [facility] Eosinophils [#/volume] in Blood by Automated count 0.1 U 0.0-0.5 N [facility] Basophils/100 leukocytes in Blood by Automated count 0.5 % 0.4-1 .3 N [facility] Basophils [#/volume] in Blood by Automated count 0.1 U 0.0-0.2 N [facility] NUCLEATED RED BLOOD CELL 0 % [facility] NUCLEATED RED BLOOD CELL# 0 U [facility] Immature granulocytes [Presence] in Blood by Automated count 0-2 N [facility] Immature granulocytes [#/volume] in Blood by Automated count 0.0 U 0-0.1 N [facility] Manual Differential panel - Blood NO [facility] ID Date Data Source [id number] 04/11/2020 06:25:00 PM EDT [facility] Name Value Range Interpretation Code Description Data Shelly rce(s) Supporting Document(s) Urea nitrogen [Mass/volume] in Serum or Plasma 17 mg/dL 9-23 N [facility] Sodium [Moles/volume] in Serum or Plasma 138 mmol/L 132-146 [facility] Potassium [Moles/volume] in Serum or Plasma 3.9 mmol/L 3.5-5.5 [facility] Chloride [Moles/volume] in Serum or Plasma 103 mmol/L 99-109 [facility] Carbon dioxide, total [Moles/volume] in Serum or Plasma 26 mmol/L 20 -31 [facility] Anion gap in Serum or Plasma 13 mmol/L 8-16 [facility] Glucose [Mass/volume] in Serum or Plasma 150 mg/dL 74-106 Above high normal [facility] Creatinine 1.0 mg/dL 0.5-1.1 [facility] Glomerular filtration rate/1.73 sq M.pre dicted [Volume Rate/Area] in Serum or Plasma Greater Than 60 ABOVE 60 [facility] Alanine aminotransferase [Enzymatic acti vity/volume] in Serum or Plasma by With P-5'-P 33 U/L 10-49 [facility] ital Aspartate aminotransferase [Enzymatic ac tivity/volume] in Serum or Plasma by With P-5'-P 15 U/L 0-33 [facility] pital Alkaline phosphatase [Enzymatic activity/volume] in Serum or Plasma 60 U/L 45-129 N [facility] Calcium [Mass/volume] in Serum or Plasma 9.4 mg/dL 8.5-10.1 N [facility] Bilirubin.total [Mass/volume] in Serum or Plasma 0.8 mg/dL 0.3-1.2 N [facility] Albumin [Mass/volume] in Serum or Plasma by Bromocresol purple (BCP) dye binding method 3.8 g/dL 3.2-4.8 N [facility] ital Protein [Mass/volume] in Serum or Plasma 8.0 g/dL 5.7-8.2 N [facility] ID Date Data Source [id number] 04/11/2020 06:25:00 PM EDT [facility] Name Value Range Interpretation Code Description Data Shelly rce(s) Supporting Document(s) Troponin I.cardiac [Mass/volume] in Serum or Plasma Less Than 0.015 0.00-0.09 N [facility] Less than 0.09 NG/ML Negative0.10 - 0.77 NG/ML High Risk0.78 NG/ML or Greater PositiveThe WHO defined the cutoff (definition for diagnosis of ID)for this method as 0.78 ng/ml. ID Date Data Source [id number] 04/11/2020 06:24:00 PM EDT [facility] Name Value Range Interpretation Code Description Data Shelly rce(s) Supporting Document(s) Magnesium [Mass/volume] in Serum or Plasma 2.3 mg/dL 1.3-2.7 N [facility] ID Date Data Source [id number] 04/11/2020 06:23:00 PM EDT [facility] Name Value Range Interpretation Code Description Data Shelly rce(s) Supporting Document(s) Creatine kinase [Enzymatic activity/volume] in Serum or Plasma 158 U/L 33-211 N [facility] Creatine kinase.MB [Enzymatic activity/volume] in Serum or P lasma 3.8 ng/mL 0.0-5.0 N [facility] Chemistry studies (set) 2.4 % [facility] ID Date Data Source [id number] 04/11/2020 05:55:00 PM EDT [place] ([facility]) Name Value Range Interpretation Code Description Data Shelly rce(s) Supporting Document(s) Reported Physicians See Note Reported Physici ans [place] ([facility]) Note: Reported Physicians:Ordering: Kian ArguelloAttending: John De Souzaitting: Pete De Souza To: Esha Talamantes ID Date Data Source [id number] 04/11/2020 05:55:00 PM EDT [place] ([facility]) Name Value Range Interpretation Code Description Data Shelly rce(s) Supporting Document(s) Bacteria identified in Blood by Culture See Note Bacteria Bld Cult [place] ([facility]) Note: NG5DNo growth.[id number] GROWTH AFTE R 5 DAYS ID Date Data Source [id number] 04/11/2020 05:55:00 PM EDT [place] ([facility]) Name Value Range Interpretation Code Description Data Shelly rce(s) Supporting Document(s) Bacteria identified in Blood by Culture See Note Bacteria Bld Cult [place] ([facility]) Note: NG5DNo growth.[id number] GROWTH AFTE R 5 DAYS ID Date Data Source [id number] 04/11/2020 05:55:00 PM EDT [place] ([facility]) Name Value Range Interpretation Code Description Data Shelly rce(s) Supporting Document(s) Lactic w Rfx (if elevated) 2.1 MilliMolesPerLiter_[Substance_Concentration_Units] Normal Lactic w Rfx (if elevated) [facility]) Note: Called to RYAN @ 1835 by Tori Kenny. Results readback.Responsible Observer: Lactic Acid Lactic Acid 400.2831 (G) Notes [TIMP] See Note NOTES [place] ([facility]) Note: Special Instructions: Lab may orde r repeat test if initial test elevatedPhysician If elevated, reflex second test in 4-6 hrs ID Date Data Source [id number] 04/11/2020 05:55:00 PM EDT [place] ([facility]) Name Value Range Interpretation Code Description Data Shelly rce(s) Supporting Document(s) Reported Physicians See Note Reported Physici ans [place] ([facility]) Note: Reported Physicians:Ordering: Kian ArguelloAttending: Talita Cannon To: Esha Talamantes ID Date Data Source [id number] 04/11/2020 05:55:00 PM EDT [place] ([facility]) Name Value Range Interpretation Code Description Data Shelly rce(s) Supporting Document(s) Alanine aminotransferase [Enzymatic acti vity/volume] in Serum or Plasma by With P-5'-P 33 enzyme_unit_per_liter Normal ALT [facility] [place] [facility]) Note: Responsible Observer: SGPT/ALT SGP T/ALT 400.1750 (G) Calcium [Mass/volume] in Serum or Plasma 9.4 MilliGramsPerDeciLiter_[Mass_Concentration_Units] Normal Calcium [facility] ([facility]) Note: Responsible Observer: Calcium Calc ium 400.2500 (G) Bilirubin.total [Mass/volume] in Serum or Plasma 0.8 MilliGramsPerDeciLiter_[Mass_Concentration_Units] Normal Bilirub [facility] ([facility]) Note: Responsible Observer: T ABDIRAHMAN Total Bilirubin 400.2600 (G) Carbon dioxide, total [Moles/volume] in Serum or Plasm a 26 MilliMolesPerLiter_[Substance_Concentration_Units] Normal CO2 [facility] ([facility]) Note: Responsible Observer: CO2 Carbon D ioxide 400.1400 (G) Chloride [Moles/volume] in Serum or Plasma 103 MilliMolesPerLiter_[Substance_Concentration_Units] Normal Chloride [facility] ([facility]) Note: Responsible Observer: Chloride Chl oride 400.1250 (G) Glucose [Mass/volume] in Serum or Plasma 150 MilliGramsPerDeciLiter_[Mass_Concentration_Units] Above high normal Glucose [facility] ([facility]) Note: Responsible Observer: Glucose Gluc ose 400.1500 (G) Potassium [Moles/volume] in Serum or Plasma 3.9 MilliMolesPerLiter_[Substance_Concentration_Units] Normal Potassium [facility] ([facility]) Note: Responsible Observer: K Potassium 400.1210 (G) Protein [Mass/volume] in Serum or Plasma 8.0 GramsPerDeciLiter_[Mass_Concentration_Units] Normal Pro t [facility] ([facility]) Note: Responsible Observer: TP Total Pro tein 400.2800 (G) Sodium [Moles/volume] in Serum or Plasma 138 MilliMolesPerLiter_[Substance_Concentration_Units] Normal Sodium [facility] ([facility]) Note: Responsible Observer: Sodium Sodiu m 400.1100 (G) Aspartate aminotransferase [Enzymatic ac tivity/volume] in Serum or Plasma by With P-5'-P 15 enzyme_unit_per_liter Normal AST [facility] w P-5' -[facility] ([facility]) Note: Responsible Observer: SGOT / AST S GOT / AST 400.1900 (G) Urea nitrogen [Mass/volume] in Serum or Plasma 17 MilliGramsPerDeciLiter_[Mass_Concentration_Units] Normal BUN [facility] ([facility]) Note: Responsible Observer: BUN Blood Ur ea Nitrogen 400.1000 (G) Anion gap in Serum or Plasma 13 MilliMolesPerLiter_[Substance_Concentration_Units] Normal Anion Gap [facility] ([facility]) Note: Responsible Observer: ANION GAP AN ION GAP 400.1402 (E) Albumin [Mass/volume] in Serum or Plasma by Bromocresol purple (BCP) dye binding method 3.8 GramsPerDeciLiter_[Mass_Concentration_Units] Normal Albumin [facility] ([facility]) Note: Responsible Observer: Albumin [place] 400.2700 (G) Alkaline phosphatase [Enzymatic activity/volume] in Se rum or Plasma 60 enzyme_unit_per_liter Normal ALP [facility] ( [facility]) Note: Responsible Observer: ALP Alkaline Phosphatase 400.2000 (G) Glomerular filtration rate/1.73 sq M.pre dicted [Volume Rate/Area] in Serum or Plasma Greater Than 60 GFR/BSA.pred [facility] [place] ([facility]) Note: Responsible Observer: GFR Glomerul ar Filt Rate Calc 400.1605 (D) Creatinine [Moles/volume] in Vitreous fluid 1.0 MilliGramsPerDeciLiter_[Mass_Concentration_Units] Normal Creatinine [place] ([facility]) Note: Responsible Observer: Creatinine C reatinine 400.1600 (G) ID Date Data Source [id number] 04/11/2020 05:55:00 PM EDT [place] ([facility]) Name Value Range Interpretation Code Description Data Shelly rce(s) Supporting Document(s) Erythrocyte mean corpuscular volume [Ent itic volume] in Cord blood by Automated count 91.8 FemtoLiter_[SI_Volume_Units] Normal MCV Bld Co Auto [place] ([facility]) Note: Responsible Observer: MCV MCV 100 .0600 (B) Erythrocyte distribution width [Entitic volume] by Automated cou nt 12 percent Normal RDW RBC Auto [place] ([facility]) Note: Responsible Observer: RDW RDW 100 .0900 (B) Manual Differential panel - Blood NO Ma nual diff Bld [place] ([facility]) Note: Responsible Observer: CBC Manual D ifferential Added 100.1990 (B) Platelet mean volume [Entitic volume] in Blood 9.3 FemtoLite r_[SI_Volume_Units] Normal PMV Bld [place] ([facility]) Note: Responsible Observer: MPV MPV 100 .1100 (B) Immature granulocytes [Presence] in Blood by Automated count See No te Normal Imm Granulocytes Bld Ql Auto [place] ([facility]) Note: [id number] Ob 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: IG% IG% 100.1375 (B) Hematocrit [Volume Fraction] of Blood by Automated count 46.2 perce nt Normal Hct VFr Bld Auto [place] ([facility]) Note: Responsible Observer: HEMATOCRIT H EMATOCRIT 100.0500 (B) Erythrocyte mean corpuscular hemoglobin concentration [Mass/volume] in Cord blood 33.5 GramsPerDeciLiter_[Mass_Concentration_Units] Normal MCHC BldCo-mCnc [place] ([facility]) Note: Responsible Observer: MCHC MCHC 1 00.0800 (B) Immature granulocytes [#/volume] in Blood by Automated count 0.0 Un it Imm Granulocytes # Bld Auto [place] ([facility]) Note: Responsible Observer: IG# IG# 100 .1400 (B) Monocytes/100 leukocytes in Blood by Automated count 8.4 percent Normal Monocytes/leuk NFr Bld Auto [place] ([facility]) Note: Responsible Observer: MONO % MONO % 100.1225 (B) Hemoglobin [Moles/volume] in Blood 15.5 GramsPerDeciLiter_[Mass_Concentration_Units] Normal Hgb Bld-sCnc [place] ([facility]) Note: Responsible Observer: HGB HEMOGLOB IN 100.0400 (B) Leukocytes [#/volume] in Blood by Automated count 10.4 ThousandsPerMicroLiter_[Number_Concentration_Units] Normal WBC # Bld Auto [place] ([facility]) Note: Responsible Observer: WBC WHITE BL OOD COUNT 100.0100 (E) Basophils [#/volume] in Blood by Automated count 0.1 Unit Normal Basophils # Bld Auto [place] ([facility]) Note: Responsible Observer: BASO # BASO# 100.1350 (B) Basophils/100 leukocytes in Blood by Automated count 0.5 percent Normal Basophils/leuk NFr Bld Auto [place] ([facility]) Note: Responsible Observer: BASO % BASO % 100.1325 (B) Eosinophils [#/volume] in Blood by Automated count 0.1 Unit Normal Eosinophil # Bld Auto [place] ([facility]) Note: Responsible Observer: EOS # EOS# 100.1300 (D) Eosinophils/100 leukocytes in Blood by Automated count 1.2 percent Normal Eosinophil/leuk NFr Bld Auto [place] ([facility]) Note: Responsible Observer: EOS % EOS % 100.1275 (B) Lymphocytes [#/volume] in Blood by Automated count 2.2 Unit Normal Lymphocytes # Bld Auto [place] ([facility]) Note: Responsible Observer: LYMPH # LYMP H# 100.1200 (B) Lymphocytes/100 leukocytes in Blood by Automated count 20.9 percent Normal Lymphocytes/leuk NFr Bld Auto [place] ([facility]) Note: Responsible Observer: LYMPH % LYMP H % 100.1175 (B) Monocytes [#/volume] in Blood by Automated count 0.9 Unit Normal Monocytes # Bld Auto [place] ([facility]) Note: Responsible Observer: MONO # MONO# 100.1250 (C) Neutrophils [#/volume] in Blood by Automated count 7.2 Unit Normal Neutrophils # Bld Auto [place] ([facility]) Note: Responsible Observer: NEUT# NEUT# 100.1150 (B) Neutrophils/100 leukocytes in Blood by Automated count 68.7 percent Normal Neutrophils/leuk NFr Bld Auto [place] ([facility]) Note: Responsible Observer: NEUT% NEUT% 100.1125 (B) Platelets [#/volume] in Blood by Automated count 243 ThousandsPerMicroLiter_[Number_Concentration_Units] Normal Platelet # Bld Auto [place] ([facility]) Note: Responsible Observer: PLATELET COU NT PLATELET COUNT 100.1000 (D) Erythrocyte mean corpuscular hemoglobin [Entitic mass] by Automated count 30.8 PicoGram_[SI_Mass_Units] Normal MCH RBC Qn Auto [place] ([facility]) Note: Responsible Observer: MCH MCH 100 .0700 (B) Erythrocytes [#/volume] in Blood by Automated count 5. 03 MillionsPerMicroLiter_[Number_Concentration_Units] Normal RBC # Bld Auto [place] ([facility]) Note: Responsible Observer: RBC Red Bloo d Count 100.0300 (B) NUCLEATED RED BLOOD CELL# 0 Unit NUCLEATED RED BLOOD CELL# [place] ([facility]) Note: Responsible Observer: NRBC# NUCLEA SABRINA RBC 100.1362 (A) NUCLEATED RED BLOOD CELL 0 percent NUCLEATED R ED BLOOD CELL [place] ([facility]) Note: Responsible Observer: NRBC% NRBC% 100.1360 (B) ID Date Data Source [id number] 04/11/2020 05:55:00 PM EDT [place] ([facility]) Name Value Range Interpretation Code Description Data Shelly rce(s) Supporting Document(s) Reported Physicians See Note Reported Physici ans [place] ([facility]) Note: Reported Physicians:Ordering: Ember Arguelloending: Talita Cannon To: Esha Talamantes ID Date Data Source [id number] 04/11/2020 05:55:00 PM EDT [place] ([facility]) Name Value Range Interpretation Code Description Data Shelly rce(s) Supporting Document(s) Magnesium [Mass/volume] in Serum or Plasma 2.3 MilliGramsPerDeciLiter_[Mass_Concentration_Units] Normal [facility]) Note: Responsible Observer: Magnesium Ma gnesium 400.3300 (G) ID Date Data Source [id number] 04/11/2020 05:55:00 PM EDT [place] ([facility]) Name Value Range Interpretation Code Description Data Shelly rce(s) Supporting Document(s) Reported Physicians See Note Reported Physici ans [place] ([facility]) Note: Reported Physicians:Ordering: Pradeep Ferraraending: John De Souzaitting: Honorio De SouzaCopninfa To: Pete De Souza To: Esha Talamantes ID Date Data Source [id number] 04/11/2020 05:55:00 PM EDT [place] ([facility]) Name Value Range Interpretation Code Description Data Shelly rce(s) Supporting Document(s) Erythrocyte sedimentation rate by Westergren method 13 Normal ESR Bld Qn [facility] ([facility]) Note: @Reenter manual test result: 13@by Tori Child at 04/11/20 2328.Responsible Observer: SED RATE SED RATE 100.6400 (B) Notes [TIMP] See Note NOTES [place] ([facility]) Note: Special Instructions: from the las t lab sample, otherwise, from the next ID Date Data Source [id number] 04/11/2020 05:55:00 PM EDT [place] ([facility]) Name Value Range Interpretation Code Description Data Shelly rce(s) Supporting Document(s) Reported Physicians See Note [facility] Note: Reported Physicians:Ordering: Kian ArguelloAttending: Talita Cannon To: Esha Talamantes ID Date Data Source [id number] 04/11/2020 05:55:[facility] Name Value Range Interpretation Code Description Data Shelly rce(s) Supporting Document(s) Chemistry studies (set) 2.4 percent Chemistry s [facility]) Note: Responsible Observer: CK RELATIVE % CK RELATIVE % 600.0055 (A) Creatine kinase [Enzymatic activity/volume] in Serum o r Plasma 158 enzyme_unit_per_liter Normal CK [facility]) Note: Responsible Observer: CK Creatine Kinase 400.9115 (G) Creatine kinase.MB [Enzymatic activity/volume] in Seru m or Plasma 3.8 NanoGramsPerMilliLiter_[Mass_Concentration_Units] Normal CK MB [facility] ([facility]) Note: Responsible Observer: CKMB Creatin e Kinase MB 600.0050 (G) ID Date Data Source [id number] 04/11/2020 05:55:00 PM [facility] ([facility]) Name Value Range Interpretation Code Description Data Shelly rce(s) Supporting Document(s) Reported Physicians See Note Reported Physici [facility] ([facility]) Note: Reported Physicians:Ordering: Ember Arguelloending: Talita Cannon To: Esha Talamantes ID Date Data Source [id number] 04/11/2020 05:55:00 PM [facility] ([facility]) Name Value Range Interpretation Code Description Data Shelly rce(s) Supporting Document(s) Troponin I.cardiac [Mass/volume] in Serum or Plasma Less Than 0.015 Normal Troponin I [facility]) Note: Less than 0.09 NG/ML Negative 0.10 - 0.77 NG/ML High Risk0.78 NG/ML or Greater PositiveThe WHO defined the cutoff (definition for diagnosis of ID)for this method as 0.78 ng/ml.Responsible Observer: Troponin I Troponin I 600.1101 (G) ID Date Data Source [id number] 04/11/2020 05:40:00 PM EDT [facility] ED Physician Documentation NAME: TOLU RATLIFF : 1955 AGE: 64 MR#: [id number] SERVICE DATE: 04/11/[address]: Kian Cannon [...] % (Auto) 68.7, Lymph % (Auto) 20.9, [place] % (Auto) 8.4, Eos % (Auto) 1.2, [...] Appearance Clear, Urine pH 5.0, Ur Specific [place] 1.010,Urine Protein Negative, Urine Ketones Negative, Urine [...] % (Auto) 68.7, Lymph % (Auto) 20.9, [place] % (Auto) 8.4, Eos % (Auto) 1.2, [...] Appearance Clear, Urine pH 5.0, Ur Specific [place] 1.010,Urine Protein Negative, Urine Ketones Negative, Urine [...] rce(s) Supporting Document(s) ID Date Data Source [id number] 04/11/2020 12:00:00 AM EDT [facility] Name Value Range Interpretation Code Description Data Shelly rce(s) Supporting Document(s) SARS-CoV2 Rapid PCR [facility] This lab was ordered by [facility] and reported by [facility]. ID Date Data Source [id number] 08/12/2019 07:48:00 AM EST [place] ([facility]) Name Value Range Interpretation Code Description Data Shelly rce(s) Supporting Document(s) Reported Physicians See Note Reported Physici ans [place] ([facility]) Note: Reported Physicians:Ordering: Beard e Esha AAttending: VINITA, JOCELYNConsulting: VINITA, JOCELYNCopy To: Esha Talamantes ID Date Data Source [id number] 08/12/2019 07:48:00 AM EST [place] ([facility]) Name Value Range Interpretation Code Description Data Shelly rce(s) Supporting Document(s) CPK 102 U/L CPK [place] ([facility]) Note: Responsible Observer: () ID Date Data Source [id number] 08/12/2019 07:48:00 AM EST [place] ([facility]) Name Value Range Interpretation Code Description Data Shelly rce(s) Supporting Document(s) Reported Physicians See Note Reported Physici ans [place] ([facility]) Note: Reported Physicians:Ordering: Beard e, Esha AAttending: VINITA, JOCELYNConsulting: VINITA, JOCELYNCopy To: Esha Talamantes ID Date Data Source [id number] 08/12/2019 07:48:00 AM EST [place] ([facility]) Name Value Range Interpretation Code Description Data Shelly rce(s) Supporting Document(s) A/G RATIO 1.7 A/G RATIO [place] ([facility]) Note: Responsible Observer: () AFR AMER GFR >60 mL/min AFR AMER GFR [place] ([facility]) Note: Male GFR Interprentation 20- 49 [...] () 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 64 yrs AGE [place] ([facility]) Note: Responsible Observer: () Albumin [Mass/volume] in Blood by Bromocresol purple ( BCP) dye binding method 4.3 G/DL ALBUMIN [place] ([facility]) Note: Responsible Observer: () ALKALINE PHOS 48 U/L ALKALINE PHOS [place] ([facility]) Note: Responsible Observer: () Anion gap in Body fluid 12.0 mmol/L ANION GAP [place] ([facility]) Note: Responsible Observer: () BUN 15 MG/DL BUN [place] ([facility]) Note: Responsible Observer: () BUN/CREAT 19 BUN/CREAT [place] ([facility]) Note: Responsible Observer: () Calcium [Moles/volume] in Urine collected for unspecified durati on 9.5 MG/DL CALCIUM [place] ([facility]) Note: Responsible Observer: () Chloride [Moles/volume] in Serum, Plasma or Blood 103 mEq/L CHLORIDE [place] ([facility]) Note: Responsible Observer: () CO2 24 MEQ/L CO2 [place] ([facility]) Note: Responsible Observer: () COMPREHENSIVE METABOLIC PANEL See Note COMPRE HENSIVE METABOLIC PANEL [place] ([facility]) Note: COMPREHENSIVE METABOLIC PANELR esponsible Observer: () Creatinine [Moles/volume] in Vitreous fluid 0.8 MG/DL CREATININE [place] ([facility]) Note: Responsible Observer: () Globulin [Mass/time] in 24 hour Urine 2.5 GM/DL GLOBULIN [place] ([facility]) Note: Responsible Observer: () Glucose [Mass/volume] in Urine collected for unspecified duratio n 184 MG/DL Above high normal GLUCOSE [place] ([facility]) Note: Responsible Observer: () NON-AA GFR >60 mL/min NON-AA GFR [place] ([facility]) Note: Responsible Observer: () Potassium [Mass/volume] in Blood 4.7 mEq/L POT ASSIUM [place] ([facility]) Note: Responsible Observer: () SGOT/AST 21 U/L SGOT/AST [place] ([facility]) Note: Responsible Observer: () SGPT/ALT 30 U/L SGPT/ALT [place] ([facility]) Note: Responsible Observer: () Sodium [Moles/volume] in Serum, Plasma or Blood 139 mEq/L SODIUM [place] ([facility]) Note: Responsible Observer: () TOTAL BILI <0.7 MG/DL TOTAL BILI [place] ([facility]) Note: Responsible Observer: () TOTAL PROTEIN 6.8 G/DL TOTAL PROTEIN [place] ([facility]) Note: Responsible Observer: () ID Date Data Source [id number] 08/12/2019 07:48:00 AM EST [place] ([facility]) Name Value Range Interpretation Code Description Data Shelly rce(s) Supporting Document(s) Reported Physicians See Note Reported Physici ans [place] ([facility]) Note: Reported Physicians:Ordering: Esha De La Garza AAttending: ESHA TALAMANTESConsulting: ESHA TALAMANTESCopy To: Esha Talamantes ID Date Data Source [id number] 08/12/2019 07:48:00 AM EST [place] ([facility]) Name Value Range Interpretation Code Description Data Shelly rce(s) Supporting Document(s) CREAT UR 137.6 MG/DL Above high normal CREAT UR KIARA HAWKINS ([facility]) Note: Responsible Observer: (BLD) MA/CREAT RATIO 2.76 MCG/MG MA/CREAT RATIO JEMIMA TEJADA ([facility]) Note: The [place] [employer] ion states that Microalbuminemia is present if the Microalbumin/Creatinine ratio exceeds 30 mcg/mg. The threshold for Clinical Albuminuria is reached at 300 mcg/mg. The classification of a patient should be based upon at least 2 or 3 abnormal results on specimens collected within a 3 to 6 month timeframe.Responsible Observer: (BLD) MICROALBUMIN <12.00 MG/L Above high normal MICROALBUMIN [facility] Note: Responsible Observer: (BLD) ID Date Data Source [id number] 08/12/2019 07:48:00 AM EST [place] ([facility]) Name Value Range Interpretation Code Description Data Shelly rce(s) Supporting Document(s) Reported Physicians See Note Reported Physici ans [place] ([facility]) Note: Reported Physicians:Ordering: Esha De La Garza AAttending: ESHA TALAMANTESConsulting: ESHA TALAMANTESCopninfa To: Esha Talamantes ID Date Data Source [id number] 08/12/2019 07:48:00 AM [facility] ([facility]) Name Value Range Interpretation Code Description Data Shelly rce(s) Supporting Document(s) PSA 0.95 ng/mL PSA [place] ([facility]) Note: BLDoPSA INTERP RETATIONBLDx The PSA [...] interchangeably.Responsible Observer: () ID Date Data Source [id number] 08/12/2019 07:48:00 AM [facility] ([facility]) Name Value Range Interpretation Code Description Data Shelly rce(s) Supporting Document(s) Reported Physicians See Note Reported Physici ans [place] ([facility]) Note: Reported Physicians:Ordering: Esha De La Garza AAttending: JUSTUS TALAMANTESYNConsulting: ARMINDA TALAMANTESCELYNCopy To: Esha Talamantes ID Date Data Source [id number] 08/12/2019 07:48:00 AM [facility] ([facility]) Name Value Range Interpretation Code Description Data Shelly rce(s) Supporting Document(s) Cholesterol [Moles/volume] in Pericardial fluid 177 MG/DL CHOLESTEROL [place] ([facility]) Note: Responsible Observer: (BLD) CVE PANEL See Note CVE PANEL [place] ([facility]) Note: LIPID PANELResponsible Observe r: (BLD) HDL 48 MG/DL HDL [place] ([facility]) Note: Responsible Observer: (BLD) Cholesterol in LDL [Mass/volume] in Serum or Plasma by Direct as say 91 mg/dL LDL [place] ([facility]) Note: Responsible Observer: (BLD) LDL/HDL 1.90 LDL/HDL [place] ([facility]) Note: CVE RISK CHOL/HD L LDL/HDLMEN: 1/2 AVERAGE 3.43 1.00 AVERAGE 4.97 3.55 2X AVERAGE 9.55 6.25 3X AVERAGE 23.99 7.99WOMEN: 1/2 AVERAGE 3.27 1.47 AVERAGE 4.44 3.22 2X AVERAGE 7.05 5.03 3X AVERAGE 11.04 6.14Responsible Observer: (BLD) RISK FACTOR 3.7 RISK FACTOR [place] ([facility]) Note: Responsible Observer: (BLD) TRIGLYCERIDES 272 MG/DL Above high normal TRIGLYCERIDES [facility] ([facility]) Note: Responsible Observer: (BLD) ID Date Data Source [id number] 08/12/2019 07:48:00 AM [facility] ([facility]) Name Value Range Interpretation Code Description Data Shelly rce(s) Supporting Document(s) Reported Physicians See Note Reported Physici ans [place] ([facility]) Note: Reported Physicians:Ordering: Esha De La Garza AAttending: ESHA TALAMANTESConsulting: Alex TALAMANTES To: Esha Talamantes ID Date Data Source [id number] 08/12/2019 07:48:00 AM [facility] ([facility]) Name Value Range Interpretation Code Description Data Shelly rce(s) Supporting Document(s) Testosterone, Serum 137 ng/dL Below low normal Testostero ne, Serum [place] ([facility]) Note: Adult male reference interval is b ased on a population ofhealthy nonobese males (BMI <30) between 19 and 39 years old.Silas, et.al. JCEM 2017,102;1161- 1173. PMID: [id number].Responsible Observer: (rfl) ID Date Data Source [id number] 08/13/2019 08:10:00 AM [facility] Name Value Range Interpretation Code Description Data Shelly rce(s) Supporting Document(s) Testosterone [Mass/volume] in Serum or Plasma 137 ng/dL 264-916 L [facility] Adult male reference interval is based o n a population ofhealthy nonobese males (BMI <30) between 19 and 39 years old.Silas, et.al. JCEM 2017,102;2622-3336. PMID: [id number]. ID Date Data Source [id number] 08/12/2019 01:01:00 PM [facility] Name Value Range Interpretation Code Description Data Shelly rce(s) Supporting Document(s) [facility] Cholesterol [Mass/volume] in Serum or Plasma 177 MG/DL 131 - 200 [facility] Deprecated Triglyceride [Mass/volume] in Serum or Plasma 272 MG/DL 3 5 - 160 H [facility] HDL 48 MG/DL 29 - 86 [facility] Cholesterol in LDL/Cholesterol in HDL [Mass Ratio] in Serum or Plasma 91 mg/dL 65 - 175 [facility] Cholesterol.total/Cholesterol in HDL [Mass Ratio] in Serum o r Plasma 3.7 3.4 - 4.9 [facility] LDL/HDL 1.90 1.00 - 3.55 [facility] ital CVE RISK CHOL/HDL LDL/HDLMEN: 1/2 AVERAGE 3.43 1.00 AVERAGE 4.97 3.55 2X AVERAGE 9.55 6.25 3X AVERAGE 23.99 7.99WOMEN: 1/2 AVERAGE 3.27 1.47 AVERAGE 4.44 3.22 2X AVERAGE 7.05 5.03 3X AVERAGE 11.04 6.14 ID Date Data Source [id number] 08/12/2019 12:41:00 PM [facility] Name Value Range Interpretation Code Description Data Shelly rce(s) Supporting Document(s) Prostate specific Ag [Mass/volume] in Serum or Plasma 0.95 ng/mL 0.00 - 4.00 [facility] \\BLDo\\PSA INTERPRETA TION\\BLDx\\ The PSA assay [...] be used interchangeably. ID Date Data Source [id number] 08/12/2019 12:10:00 PM [facility] Name Value Range Interpretation Code Description Data Shelly rce(s) Supporting Document(s) COMPREHENSIVE METABOLIC PANEL [facility] COMPREHENSIVE METABOLIC PANEL Sodium [Moles/volume] in Serum or Plasma 139 mEq/L 134 - 153 [facility] Potassium [Moles/volume] in Serum or Plasma 4.7 mEq/L 3.6 - 5.0 [facility] Chloride [Moles/volume] in Serum or Plasma 103 mEq/L 98 - 107 [facility] Carbon dioxide, total [Moles/volume] in Serum or Plasma 24 MEQ/L 22 - 30 [facility] Glucose [Mass/volume] in Serum or Plasma 184 MG/DL 65 - 110 H [facility] BUN 15 MG/DL 7 - 21 [facility] Creatinine [Mass/volume] in Serum or Plasma 0.8 MG/DL 0.7 - 1.5 [facility] BUN/CREAT 19 8 - 27 [facility] al Protein [Mass/volume] in Serum or Plasma 6.8 G/DL 6.3 - 8.2 [facility] Albumin [Mass/volume] in Serum or Plasma 4.3 G/DL 3.9 - 5.0 [facility] Globulin [Mass/volume] in Serum by calculation 2.5 GM/DL 2.4 - 3.2 [facility] A/G RATIO 1.7 0.8 - 2.0 [facility] Calcium [Mass/volume] in Serum or Plasma 9.5 MG/DL 8.4 - 10.2 [facility] Bilirubin.total [Mass/volume] in Serum or Plasma <0.7 MG/DL 0.2 - 1.3 [facility] Alkaline phosphatase [Enzymatic activity/volume] in Serum or Plasma 48 U/L 38 - 126 [facility] Aspartate aminotransferase [Enzymatic activity/volume] in Serum or Plasma 21 U/L 5 - 40 [facility] Alanine aminotransferase [Enzymatic activity/volume] in Seru m or Plasma 30 U/L 7 - 56 [facility] Anion gap 3 in Serum or Plasma 12.0 mmol/L 8.0 - 16.0 [facility] AGE [address] [facility] al NON-AA GFR >60 mL/min [facility] ital AFR AMER GFR >60 mL/min [facility] spital Male GFR In terprentation [...] >32 mL/min Normal ID Date Data Source [id number] 08/12/2019 12:10:00 PM EST [facility] Name Value Range Interpretation Code Description Data Shelly rce(s) Supporting Document(s) CREAT UR 137.6 MG/DL 0.0 - 30.0 [facility] pital MICROALBUMIN <12.00 MG/L 0.00 - 0.00 H [facility] MA/CREAT RATIO 2.76 MCG/MG 0.01 - 30.00 [facility] The [place] [employer] st ates that Microalbuminemia is present if the Microalbumin/Creatinine ratio exceeds 30 mcg/mg. The threshold for Clinical Albuminuria is reached at 300 mcg/mg. The classification of a patient should be based upon at least 2 or 3 abnormal results on specimens collected within a 3 to 6 month timeframe. ID Date Data Source [id number] 08/12/2019 12:03:00 PM [facility] Name Value Range Interpretation Code Description Data Shelly rce(s) Supporting Document(s) Creatine kinase [Enzymatic activity/volume] in Serum or Plasma 1 02 U/L 30 - 170 [facility] ID Date Data Source [id number] 07/09/2019 08:53:00 AM [facility] [address] [place] [address] PHONE: [phone] FAX: [phone] Name ..............: APRYL Ma Acct Number ...........................: [id number] ROOM. ............: TR-1A Number ............................: [id number] Stay type.........: E/R Discharge Date...............:07/07/19 Admit Date .....: 07/07/19 Admit Phys .............................: SIVA TOPETE Date of ..: 1955 Family Phys ...........................: VINITA HOOPER Phone..............: [phone] Age.................................:63 Film# ...............:[id number] Sex.................................:M Unsigned transcriptions are preliminary reports and do not represent a medical or legal document EKG [id number] COMPLETE:07/08/19 07:30 SAVAGE [id number] Please See Scanned Results. Name Value Range Interpretation Code Description Data Shelly rce(s) Supporting Document(s) ID Date Data Source [id number] 07/08/2019 09:58:00 AM EST [facility] [address] [place] [address] PHONE: [phone] FAX: [phone] Name .................. : APRYL Ma Acct Number.................. : [id number] ROOM. ................. : -1A MR Number ................... : [id number] Stay type ............. : E/R Discharge Date......... ... : 07/07/19 Admit Date ......... : 07/07/19 Admit Phys .................... : SIVA TOPETE Date of ....... : 1955 Family Phys ................... : VINITA HUNTCE Phone .................. : [phone] Age ................................ : 63 Film# .................. .:[id number] Sex ................................. : M Unsigned transcriptions are preliminary reports and do not represent a medical or legal document CT CERV SPINE W/O CONTRAS [id number] COMPLETE:07/07/19 13:35 48591 Reason(s): Pain CT STUDY OF THE CERVICAL [...] [place] via fax Page 1 of 2 [facility] [address] [place] [address] PHONE: [phone] FAX: [phone] Name .................. : APRYL Ma Acct Number.................. : [id number] ROOM. ................. : TR-1A MR Number ................... : [id number] Stay type ............. : E/R Discharge D ate......... ... : 07/07/19 Admit Date ......... : 07/07/19 Admit Phys .................... : SIVA TOPETE Date of ....... : 1955 Family Phys ................... : VINITA HOOPER Phone .................. : [phone] Age ................................ : 63 Film# .................. .:[id number] Sex ................................. : M Unsigned transcriptions are preliminary reports and do not represent a medical or legal document CT CERV SPINE W/O CONTRAS [id number] COMPLETE:07/07/19 13:35 21172 Reason(s): Pain Copy for: EMERGENCY DEPT via mode Copy for: 710 MED REC DISCHARGED Page 2 of 2 Name Value Range Interpretation Code Description Data Shelly rce(s) Supporting Document(s) ID Date Data Source [id number] 07/08/2019 09:54:00 AM EST [facility] [address] [place] [address] PHONE: [phone] FAX: [phone] Name .................. : APRYL Ma Acct Number.................. : [id number] ROOM. ................. : TR-1A MR Number ................... : [id number] Stay type ............. : E/R Discharge Date......... ... : 07/07/19 Admit Date ......... : 07/07/19 Admit Phys .................... : SIVA TOPETE Date of ....... : 1955 Family Phys ................... : VINITA HOOPER Phone .................. : [phone] Age ................................ : 63 Film# .................. .:[id number] Sex ................................. : M Unsigned transcriptions are preliminary reports and do not represent a medical or legal [place] [id number] COMPLETE:07/07/19 13:37 [id number] Reason(s): Pain LEFT ELBOW SERIES: FINDINGS: No [...] By Sea Moreno MD , 07/08/19 09:55, RNKathy Transcribe Initials: JEROD , Transcribe Date: 07/07/19 17:04, Dictation Date: Copy for: GEORGES YEN via fax Copy for: VINITA BALBUENA via fax Copy for: EMERGENCY DEPT via modem Copy for: 710 MED REC DISCHARGED Page 1 of 1 Name Value Range Interpretation Code Description Data Shelly rce(s) Supporting Document(s) ID Date Data Source [id number] 07/08/2019 09:54:00 AM EST [facility] [address] [place] [address] PHONE: [phone] FAX: [phone] Name .................. : APRYL Ma Acct Number.................. : [id number] ROOM. ................. : [facility] MR Number ................... : [id number] Stay type ............. : E/R Discharge Date......... ... : 07/07/19 Admit Date ......... : 07/07/19 Admit Phys .................... : SIVA TOPETE Date of ....... : 1955 Family Phys ................... : VINITA HOOPER Phone .................. : [phone] Age ................................ : 63 Film# .................. .:[id number] Sex ................................. : M Unsigned transcriptions are preliminary reports and do not represent a medical or legal document CHEST 2 VIEWS [id number] COMPLETE:07/07/19 13:35 41769 Reason(s): Congestion CHEST X-RAY: 2-VIEWS HISTORY: Congestion [...] By Sea Moreno MD , 07/08/19 09:54, WILL Transcribe Initials: JEROD , Transcribe Date: 07/07/19 16:27, Dictation Date: Copy for: GEORGES YEN via fax Copy for: VINITA BALBUENA via fax Copy for: EMERGENCY DEPT via modem Copy for: 710 MED REC DISCHARGED Page 1 of 1 Name Value Range Interpretation Code Description Data Shelly rce(s) Supporting Document(s) ID Date Data Source [id number] 07/07/2019 01:18:00 PM EST [facility] 1 OrderSheet [facility] Emergency Department [address] [place] [address] Phone #: ext- [phone] 07/07/2019 13:01 Patient: [...] RN PA;Blood Culture STAT 13:35 07/07/2019 13:46 [id number] X2 (Sched Faustino Paris RN13:35 07/07/2019) PA;Blood Culture STAT 13:35 07/07/2019 13:46 Infaww54h X2 (Sched Faustino sparrow RN13:45 07/07/2019) PA;Lactic Acid STAT 13:35 07/07/2019 13:46 Edna Paris RN PA;PT/PTT STAT 13:35 07/07/2019 13:46 Edna Paris RN PA;Urinalysis (Clean STAT 13:35 07/07/2019 15:25 DorisCatch) Faustino Paris RN PA;Sed. Rate STAT 13:35 07/07/2019 13:46 Edna Prais RN PA;CRP STAT 13:35 07/07/2019 13:46 Edna Paris RN PA;Troponin-T STAT 13:35 07/07/2019 13:46 Edna Paris RN PA; 2 OrderSheet [facility] Emergency Department [address] [place] [address] Phone #: ext- [phone] 07/07/2019 13:01 Patient: [...] Extremity PainElbow Complete STAT 13:37 07/07/2019 13:46 DorirajLeft (Oxygen?(No)) Faustino Paris RN PA; Reason for Study: PainMEDICATION/IV/DRIP/FLUID ORDERSOrder Description Priority Entered Acknowledged InitialedpredniSONE PO 60 13:35 07/07/2019 13:51 Bernardag Faustino Paris RN PA;Toradol IM 30 mg 13:35 07/07/2019 13:52 Edna AVINA;GENERAL ORDERSOrder Description Priority Entered Acknowledged Init ialedEKG 13:35 07/07/2019 13:46 Edna Paris RN PA;Taryn Wrap 15:29 07/07/2019 15:30 Edna Paris RN PA; 3 OrderSheet [facility] Emergency Department [address] [place] [address] Phone #: ext- [phone] 07/07/2019 13:01 Patient: TOLU RATLIFF Sex: M : 1955 Age: 63y[Electronically signed by Edna Paris RN (15:38 07/07/2019)][Electronically signed by Faustino Young (17:59 07/07/2019)][Electronically locked by Edna Paris RN (15:38 07/07/2019)] Name Value Range Interpretation Code Description Data Shelly rce(s) Supporting Document(s) ID Date Data Source [id number] 07/07/2019 01:18:00 PM EST [facility] 1 Medication Reconciliation Report [facility] Emergency Department [address] [place], [place] [address] Phone #: ext- [phone] 07/07/2019 13:01 Patient: TOLU RATLIFF Sex: M [...] 1 pack. Refills: 0. Substitution permitted.Pharmacy - [facility] #[id number] - [address] [place], [place] [id number]. .Bactrim DS 800 mg-160 mg tablet Take 1 tablet twice a day for 10 days -- Dispense 20 tablet. Refills: 2 Medication Reconciliation Report [facility] Emergency Department [address] [place] [address] Phone #: ext- [phone] 07/07/2019 13:01 Patient: TOLU RATLIFF Sex: M : 1955 Age: 63y0. Substitution permitted.[id number] - [address] [facility] ; [place], [place] [id number]. . -- FABRICE Pena Name Value Range Interpretation Code Description Data Shelly rce(s) Supporting Document(s) ID Date Data Source [id number] 07/07/2019 01:18:00 PM EST [facility] 1 Medication Administration Record [facility] Emergency Department [address] [place] [address] Phone #: [phone] nqx- [phone] 07/07/2019 13:01 Patient: TOLU RATLIFF Sex: M [...] rce(s) Supporting Document(s) ID Date Data Source [id number] 07/07/2019 01:18:00 PM EST [facility] 1 General Instructions [facility] Emergency Department [address] [place] [address] Phone #: ext- [phone] 07/07/2019 13:01 Patient: [...] tomorrow AM.Dispense 1 pack. Refills: 0. Substitution permitted.[facility] #[id number] - [address] [place], [place] [id number]. FaxNumber: [phone].Bactrim DS 800 mg-160 mg tablet Take 1 tablet twice a day for 10 days -- Dispense 20 tablet. Refills:0. Substitution permitted.[facility] #[id number] - [address] [place], [place] [phone]. .Follow-up:Follow up with your doctor Monday. Call for an appointment. Reason for referral: evaluation, treatment andreferral to Orthopedics for left elbow burisitis if no improvement.. Summary of care provided to patient.Understanding of the discharge instructions verbalized by patient. ADDITIONAL INFORMATIONBursitis 2 General Instructions [facility] Emergency Department [address] [place] [address] Phone #: [phone] fbh- [phone] 07/07/2019 13:01 Patient: TOLU RATLIFF Sex: M [...] wrap or splint wet. You may take nsta-vay-nkvijlu pain medicine to treat pain and inflammation, [...] to flare up again. 3 General Instructions [facility] Emergency Department [address] [place] [address] Phone #: ext- [phone] 07/07/2019 13:01 Patient: TOLU RATLIFF Sex: M : 1955 Age: 63yWhen to seek medical adviceCall your healthcare provider right away if any of these occur: Redness or warmth over the painful area Increasing pain or swelling at the joint Fever of 100.4F (38C) or above lasting for 24 to 48 hours, or as advised Chills 1402-3001 [employer]. [address] [place] [address]. All rights reserved. This information is not [...] apply an elastic bandage: 4 General Instructions [facility] Emergency Department [address] [place] [address] Phone #: ext- [phone] 07/07/2019 13:01 [id number] Sex: M : 1955 Age: 63y Check [...] doesn't go away after bandage is removed [id number] [employer]. [address] [place] [address], [place] [address]. All rights reserved. This information is not intended as asubstitute for professional medical care. Always follow your healthcare professional's instructions. You have been given the following additional information: Bursitis TARYN Wrap 5 General Instructions [facility] Emergency Department [address] [place] [address] Phone #: ext- [phone] 07/07/2019 13:01 Patient: TOLU RATLIFF Sex: M : 1955 Age: 63y(Electronically signed by FABRICE Pena 07/07/2019 17:59) Name Value Range Interpretation Code Description Data Shelly rce(s) Supporting Document(s) ID Date Data Source [id number] 07/07/2019 01:18:00 PM EST [facility] 1 Clinical Report - Nurses [facility] Emergency Department [address] [place] [address] Phone #: ext [phone] 07/07/2019 13:01 Patient: TOLU RATLIFF Sex: M [...] RN.ADDITIONAL SURGERIES: 2 Clinical Report - Nurses [facility] Emergency Department [address] [place] [address] Phone #: ext- [phone] 07/07/2019 13:01 [id number] Sex: M : 1955 Age: 63y Back [...] risk identified. --13:12 07/07/19 Edna Paris RN.PHYSICAL [id number]:12 07/07/19. Ambulatory to room.GENERAL / NEURO / [...] Paris RN 3 Clinical Report - Nurses [facility] Emergency Department [address] [place] [address] Phone #: [phone] ext- [phone] 07/07/2019 13:01 Patient: TOLU RATLIFF Sex: M [...] radiology and CT by wheelchair with radiology practitioner assistant. --14:38 07/07/19 Edna Paris RN 14:38 07/07/19. Patient returned from radiology and CT by wheelchair with radiology practitioner assistant. --14:38 07/07/19 Edna Paris RN 14:50 07/07/2019 [...] 97%. Temp: 97.5 F. Pain level now 10. --15:35 07/07/19 [place] recording studio intern, Chema, ER Tech1 15:37 07/07/19. Condition at departure: improved and stable. No learning barriers present. Discharge instructions provided and reviewed with the patient. Reviewed medication(s) side effects, precautions, dosing and course information. Prescription(s) sent electronically to pharmacy (Medrol, Bactrim DS). Patient verbalized understanding. Written instructions provided in Nigerien. The patient was discharged home. He left ambulatory and via private vehicle. Patient driving. --15:38 07/07/19 Edna Paris RN.Locked/Released at 07/07/2019 15:38 by Edna Paris RN Name Value Range Interpretation Code Description Data Shelly rce(s) Supporting Document(s) ID Date Data Source [id number] 07/07/2019 01:18:00 PM [facility] 1 Clinical Report - Physicians/Mid Levels [facility] Emergency Department [address] [place] [address] Phone #: ext- [phone] 07/07/2019 13:01 Patient: [...] hives). 2 Clinical Report - Physicians/Mid Levels [facility] Emergency Department [address] [place] [address] Phone #: ext- [phone] 07/07/2019 13:01 Patient: TOLU RATLIFF Sex: M [...] 2.0) 3 Clinical Report - Physicians/Mid Levels [facility] Emergency Department [address] [place] [address] Phone #: ext- [phone] 07/07/2019 13:01 Patient: [...] Male GFR Interprentation 20-49 yrs >60 mL/min [id number] yrs >56 mL/min Normal 60-69 yrs >49 mL/min Normal 70-79yrs>42 mL/min Normal 80 and above >35 mL/min Normal Female GFRInterpretation 20-39 yrs >60 mL/min Normal 40-49 yrs >58 mL/minNormal 50-59 yrs >51 mL/min Normal 60-69 yrs >45 mL/min [id number] yrs >39 mL/min Normal 80 and above [...] VenousThrombosis, Pulmonary Embolus, Tissue heart valves, Acute ID Atrial Fibrillation, Valvular heart diseaseand recurrent Systemic Embolism. -International Normalized Ratio (INR): 2.5 - 3.5 forMechanical Prosthetic valve. \\BLDo\\PTT INTERPRETATION\\BLDx\\Critical results for patients not on therapy: >50 seconds Critical results for patients on therapy:>119 seconds Therapeutic range for patients on therapy: 58 - 90 seconds Coag studies fromline draws may not be accurate due to Heparin and other interferences.CRP: (RYAN: 07/07/2019 14:01) ( [facility] [place] 07/07/2019 14:40) Final results 4 Clinical Report - Physicians/Mid Levels [facility] Emergency Department [address] [place] [address] Phone #: ext- [phone] 07/07/2019 13:01 Patient: TOLU RATLIFF Sex: M : 1955 Age: 63y Test Result Flag Units (Reference) CRP-HS 1.00 MG/L (1.00 - 3.00) CDC/AHS HS-CRP CUT-OFF: RELATIVE RISK: <1.0 mg/L Low [...] prn. 5 Clinical Report - Physicians/Mid Levels [facility] Emergency Department [address] [place] [address] Phone #: ext [phone] 07/07/2019 13:01 Patient: TOLU RATLIFF Sex: M : 1955 Age: 63y Serevent Diskus Inhalation : 2 puffs daily. Prescription Medications: Medrol (Chucky) 4 mg tablets in a dose pack Take 1 tablet as directed for 6 days -- start tomorrow AM. Dispense 1 pack. Refills: 0. Substitution permitted. Pharm[facility] - [id number] [address] [place], [place] [id number]. . Bactrim DS 800 mg-160 mg tablet Take 1 tablet twice a day for 10 days -- Dispense 20 tablet. Refills: 0. Substitution permitted. [id number] [address] [place], [place] [id number]. FaxNumber: . Follow-up: Follow up with your [...] rce(s) Supporting Document(s) ID Date Data Source [id number] 07/07/2019 03:30:00 PM EST [place] ([facility]) Name Value Range Interpretation Code Description Data Shelly rce(s) Supporting Document(s) Reported Physicians See Note Reported Physici ans [place] ([facility]) Note: Reported Physicians:Ordering: Sandy UMANAending: Liyah PANIAGUAulting: ESHA TALAMANTESCopninfa To: Faustino YoungCopninfa To: YUSEF PANIAGUAANCopy To: Esha Talamantes ID Date Data Source [id number] 07/07/2019 03:30:00 PM EST [place] ([facility]) Name Value Range Interpretation Code Description Data Shelly rce(s) Supporting Document(s) Bilirubin [Presence] in Peritoneal fluid NEG BILIRUBIN [facility] ([facility]) Note: Responsible Observer: () Blood [Presence] in Urine by Visual NEG BLOOD [facility] ([facility]) Note: Responsible Observer: () Clarity of Pleural fluid from Fetus clear CLARITY [facility] ([facility]) Note: Responsible Observer: () Color of Exudate from wound yellow COLOR [facility] ([facility]) Note: Responsible Observer: () Glucose [Mass/volume] in Urine collected for unspecified duration N ORM GLUCOSE [facility] ([facility]) Note: Responsible Observer: () KETONE NEG KETONE [facility] ([facility]) Note: Responsible Observer: () LEUK EST NEG LEUK EST [facility] ([facility]) Note: Responsible Observer: () MICROSCOPIC Not Indicate MICROSCOPIC [facility] ([facility]) Note: Responsible Observer: () Nitrite [Presence] in Urine by Test strip NEG NITRITE [facility] ([facility]) Note: Responsible Observer: () pH of Vaginal fluid by Test strip 5 pH [facility] ([facility]) Note: Responsible Observer: () Protein [Mass/volume] in Saliva (oral fluid) NEG PROTEIN [facility] ([facility]) Note: Responsible Observer: () SPEC GRAVITY 1.030 SPEC GRAVITY [facility] ([facility]) Note: Responsible Observer: () Urobilinogen [Presence] in Urine by Automated test strip NOR UROBILINOGEN [facility] ([facility]) Note: Responsible Observer: () SOURCE R SOURCE [facility] ([facility]) Note: Responsible Observer: () URINALYSIS See Note URINALYSIS [facility] ([facility]) Note: URINALYSISResponsible Observer : () ID Date Data Source [id number] 07/07/2019 03:53:00 PM [facility] Name Value Range Interpretation Code Description Data Shelly rce(s) Supporting Document(s) URINALYSIS [facility] URINALYSIS SOURCE R [facility] COLOR yellow NORMAL: Yellow [facility] CLARITY clear NORMAL: Clear [facility] Specific gravity of Urine by Test strip 1.030 1.001 - 1.030 [facility] pH 5 5 - 9 [facility] al Glucose [Mass/volume] in Urine by Test strip NORM NORMAL: Negat [facility] Bilirubin.total [Presence] in Urine by Test strip NEG NORMAL: Negative [facility] Ketones [Presence] in Urine by Test strip NEG NORMAL: Negative [facility] Protein [Mass/volume] in Urine by Test strip NEG NORMAL: Negat [facility] Nitrite [Presence] in Urine by Test strip NEG NORMAL: Negative [facility] BLOOD NEG NORMAL: Negative [facility] Leukocyte esterase [Presence] in Urine by Test strip NEG JOSE L: Negative [facility] Urobilinogen [Mass/volume] in Urine by Test strip NOR less madeleine n 1.0 mg/dL [facility] MICROSCOPIC Not Indicate [facility] ID Date Data Source [id number] 07/08/2019 09:43:00 AM [facility] @ [facility] NOTIFIED 07/08/19 @ 0900 RMMLE FT ELBOW BURSADoes the specimen need to be recollected?: YREASON REJECTED:: WRONG SWAB COLLECTEDTEST(S) ORDERED:: ANAEROBIC CULTURE LEFT ELBOW [facility] LEFT [facility]OW [facility] Name Value Range Interpretation Code Description Data Shelly rce(s) Supporting Document(s) Laboratory ANAEROBIC CULTURE [facility] Laboratory studies (set) WRONG SWAB COLLECTED [facility] One or more of the tests that youordered cannot be performed.Please recollect, reorder and resubmit. ID Date Data Source [id number] 07/09/2019 07:21:00 AM [facility] @ [facility] NOTIFIED 07/08/19 @ 0900 RMMLE FT ELBOW BURSADoes the specimen need to be recollected?: YREASON REJECTED:: WRONG SWAB COLLECTEDTEST(S) ORDERED:: ANAEROBIC CULTURE LEFT ELBOW [facility] LEFT [place] [facility] Name Value Range Interpretation Code Description Data Shelly rce(s) Supporting Document(s) Gram stain result No organisms seen [facility] ID Date Data Source [id number] 07/12/2019 10:33:00 AM [facility] @ [facility] NOTIFIED 07/08/19 @ 0900 RMMLE FT ELBOW BURSADoes the specimen need to be recollected?: YREASON REJECTED:: WRONG SWAB COLLECTEDTEST(S) ORDERED:: ANAEROBIC CULTURE LEFT ELBOW [facility] LEFT [place] Name Value Range Interpretation Code Description Data Shelly rce(s) Supporting Document(s) Bacteria identified in Wound by Aerobe culture [facility] Culture results No growth at 4 days [facility] ID Date Data Source [id number] 07/07/2019 03:17:00 PM ALENA [facility] ([facility]) Name Value Range Interpretation Code Description Data Shelly rce(s) Supporting Document(s) Reported Physicians See Note Reported Israel JOHNSON ([facility]) Note: Reported Physicians:Ordering: Sandy UMANAending: MACARIOS BRYANConsulting: JUSTUS TALAMANTESYNCopy To: Azeb Young To: MACARIOS BRYANCopy To: Esha Talamantes ID Date Data Source [id number] 07/07/2019 03:17:00 PM ALENA [facility] ([facility]) Name Value Range Interpretation Code Description Data Shelly rce(s) Supporting Document(s) GRAM STAIN See Note GRAM STAIN [facility] ([facility]) Note: GRAM STAIN: TEST PERFORMED AT [facility] [address] [place] [address] CLIA# [id number] SEE SCANNED REPORT COMMENT: Respo nsible Observer: (MD) ID Date Data Source [id number] 07/07/2019 03:17:00 PM EST [place] ([facility]) Name Value Range Interpretation Code Description Data Shelly rce(s) Supporting Document(s) Reported Physicians See Note Reported Physici ans [facility] ([facility]) Note: Reported Physicians:Ordering: Sandy UMANAending: Liyah PANIAGUAulting: Alex TALAMANTES To: Azeb Young To: Trina PANIAGUA To: Esha Talamantes ID Date Data Source [id number] 07/07/2019 03:17:00 PM EST [place] ([facility]) Name Value Range Interpretation Code Description Data Shelly rce(s) Supporting Document(s) CULTURE WOUND See Note CULTURE WOUND [facility] ([facility]) Note: .WOUND CULTURE_{ SPECIM EN SOURCE : Result: TEST PERFORMED AT [place] [id number] CLIA# [id number] SEE SCANNED REPORT Responsible Observer: (DW) ID Date Data Source [id number] 07/12/2019 02:08:00 PM EST [facility] Name Value Range Interpretation Code Description Data Shelly rce(s) Supporting Document(s) CULTURE WOUND [facility] spital .WOUND CULTURE_{ SPECIMEN SHELLY RCE : Result: TEST PERFORMED AT [address] [id number] CLIA# [id number] SEE SCANNED REPORT ID Date Data Source [id number] 07/09/2019 01:14:00 PM [facility] Name Value Range Interpretation Code Description Data Shelly rce(s) Supporting Document(s) GRAM STAIN [facility] GRAM STAIN: TEST PERFORMED AT [facility] [address] [place] [address] CLIA# [id number] SEE SCANNED REPORT COMMENT: ID Date Data Source [id number] 07/13/2019 10:38:00 AM EST [facility] [address] Name Value Range Interpretation Code Description Data Shelly rce(s) Supporting Document(s) Bacteria identified in Blood by Culture [facility] NO GROWTH AFTER 5 DAYS ID Date Data Source [id number] 07/07/2019 02:56:00 PM [facility] ([facility]) Name Value Range Interpretation Code Description Data Shelly rce(s) Supporting Document(s) Reported Physicians See Note Reported Terii karoline JOHNSON ([facility]) Note: Reported Physicians:Ordering: Sandy UMANAending: Liyah PANIAGUAulting: Alex TALAMANTES To: Azeb Young To: Trina PANIAGUA To: Esha Talamantes ID Date Data Source [id number] 07/07/2019 02:56:00 PM EST [place] ([facility]) Name Value Range Interpretation Code Description Data Shelly rce(s) Supporting Document(s) CULTURE BLOOD See Note CULTURE BLOOD [place] ([facility]) Note: _CULTURE BLOOD_ TEST P ERFORMED AT [address] [address] CLIA# [id number] SEE SCANNED REPORT{ PRELIMResponsible Observer: (GBT) ID Date Data Source [id number] 07/14/2019 03:41:00 AM [facility] Name Value Range Interpretation Code Description Data Shelly rce(s) Supporting Document(s) CULTURE BLOOD [facility] _CULTURE BLOOD_ TEST PERFORM ED AT [address] [address] CLIA# [id number] SEE SCANNED REPORT{ PRELIM ID Date Data Source [id number] 07/07/2019 02:01:00 PM EST [place] ([facility]) Name Value Range Interpretation Code Description Data Shelly rce(s) Supporting Document(s) Reported Physicians See Note Reported Physici ans [place] ([facility]) Note: Reported Physicians:Ordering: Sandy UMANAending: YUSEF PANIAGUAANConsulting: VINITA JOCELYNCopninfa To: Faustino YoungCopninfa To: SIVA BRYANCopy To: Arminda Talamantescelyn ID Date Data Source [id number] 07/07/2019 02:01:00 PM EST [place] ([facility]) Name Value Range Interpretation Code Description Data Shelly rce(s) Supporting Document(s) SED RATE 1 mm/hr SED RATE [facility] ([facility]) Note: Responsible Observer: () SED RATE REENTER 1 [facility] Note: Responsible Observer: () ID Date Data Source [id number] 07/07/2019 02:01:00 PM EST [place] ([facility]) Name Value Range Interpretation Code Description Data Shelly rce(s) Supporting Document(s) Reported Physicians See Note Reported Physici ans [place] ([facility]) Note: Reported Physicians:Ordering: CHRISTIANE UMANADEAttending: VENERUS, BRYANConsulting: VINITA, JOCELYNCopy To: Christiane YoungdeCopy To: VENERUS, BRYANCopy To: Vinita, Esha ID Date Data Source [id number] 07/07/2019 02:01:00 PM EST [place] ([facility]) Name Value Range Interpretation Code Description Data Shelly rce(s) Supporting Document(s) LACTIC ACID 3.0 MMOL/L Above high normal LACTIC ACID [facility] ([facility]) Note: Responsible Observer: () ID Date Data Source [id number] 07/07/2019 02:01:00 PM EST [place] ([facility]) Name Value Range Interpretation Code Description Data Shelly rce(s) Supporting Document(s) Reported Physicians See Note Reported Physici ans [place] ([facility]) Note: Reported Physicians:Ordering: FAUSTINO UMANAAttending: VENERUS, BRYANConsulting: VINITA, JOCELYNCopy To: Faustino YoungCopy To: SRAVANTHIRUS, BRYANCopy To: VinitaArmindaEsha ID Date Data Source [id number] 07/07/2019 02:01:00 PM EST [place] ([facility]) Name Value Range Interpretation Code Description Data Shelly rce(s) Supporting Document(s) INR in Blood by Coagulation assay 0.92 Below low nor mal INR [place] ([facility]) Note: Responsible Observer: () PROTIME 12.5 SECONDS PROTIME [place] ([facility]) Note: Responsible Observer: () PTT 27.1 SECONDS PTT [place] ([facility]) Note: \\BLD o\\INR INTERPRETATION\\BLDx Therapeutic range for Coumadin and related oral anticoagulants. - International Normalized Ratio (INR): 2.0 - 3.0 for Venous Thrombosis, Pulmonary Embolus, Tissue heart valves, Acute ID Atrial Fibrillation, Valvular heart disease and recurrent [...] interferences.Responsible Observer: () ID Date Data Source [id number] 07/07/2019 02:01:00 PM EST [place] ([facility]) Name Value Range Interpretation Code Description Data Shelly rce(s) Supporting Document(s) Reported Physicians See Note Reported Physici ans [place] ([facility]) Note: Reported Physicians:Ordering: Sandy UMANAending: RACHEL PANIAGUAonsulting: JUSTUS TALAMANTESYNCopninfa To: Azeb Young To: YUSEF PANIAGUAANCopy To: Esha Talamantes ID Date Data Source [id number] 07/07/2019 02:01:00 PM EST [place] ([facility]) Name Value Range Interpretation Code Description Data Shelly rce(s) Supporting Document(s) #BASO 0.04 10\\^3/uL #BASO [place] ([facility]) Note: Responsible Observer: () #EOS 0.18 10\\^3/uL #EOS [place] ([facility]) Note: Responsible Observer: () #IG 0.04 10\\^3/uL #IG [place] ([facility]) Note: Responsible Observer: () #LYMPH 2.04 10\\^3/uL #LYMPH [facility] ([facility]) Note: Responsible Observer: () #MONO 0.87 10\\^3/uL #MONO [facility] ([facility]) Note: Responsible Observer: () #NEUT 8.34 10\\^3/uL Above high normal #NEUT [place] ([facility]) Note: Responsible Observer: () #NRBC 0.00 10\\^3/uL #NRBC [place] ([facility]) Note: Responsible Observer: () %NRBC 0.0 % %NRBC [place] ([facility]) Note: Responsible Observer: () %IG 0.3 % Above high normal %IG [facility] ([facility]) Note: Responsible Observer: () CBC W/AUTOMATED DIFF See Note CBC W/AUTOMATED DIFF [place] ([facility]) Note: COMPLETE BLOOD COUNTResponsibl e Observer: () BASO 0.3 % BASO [facility] ([facility]) Note: Responsible Observer: () EOS 1.6 % EOS [place] ([facility]) Note: Responsible Observer: () Hematocrit [Pure volume fraction] of Blood by Automated count 47.4 % HEMATOCRIT [place] ([facility]) Note: Responsible Observer: () LYMPH 17.7 % Below low normal LYMPH [facility] ([facility]) Note: Responsible Observer: () Hemoglobin [Mass/volume] in Mixed venous blood by Oximetry 15.9 g/d L HEMOGLOBIN [place] ([facility]) Note: Responsible Observer: () MANUAL DIFF NOT INDICATED MANUAL DIFF [place] ([facility]) Note: Responsible Observer: () MCH 30.4 pg MCH [place] ([facility]) Note: Responsible Observer: () MCHC 33.5 g/dL MCHC [place] ([facility]) Note: Responsible Observer: () MCV 90.6 fL MCV [place] ([facility]) Note: Responsible Observer: () MONO 7.6 % MONO [place] ([facility]) Note: Responsible Observer: () NEUT 72.5 % NEUT [place] ([facility]) Note: Responsible Observer: () MPV 9.2 fL MPV [place] ([facility]) Note: Responsible Observer: () Platelets [#/area] in Blood by Microscopy high power field 217 10\\^ 3/uL PLATELETS [place] ([facility]) Note: Responsible Observer: () RBC 5.23 10\\^6/uL RBC [place] ([facility]) Note: Responsible Observer: () RBC MORPH NOT INDICATED RBC MORPH [place] ([facility]) Note: Responsible Observer: SUSAN) RDW 12.8 % RDW [place] ([facility]) Note: Responsible Observer: () WBC 11.5 10\\^3/uL Above high normal WBC [place] ([facility]) Note: Responsible Observer: () ID Date Data Source [id number] 07/07/2019 02:01:00 PM EST [place] ([facility]) Name Value Range Interpretation Code Description Data Shelly rce(s) Supporting Document(s) Reported Physicians See Note Reported Physici ans [place] ([facility]) Note: Reported Physicians:Ordering: FAUSTINO UMANAAttending: SRAVANTHIRUS, YUSEFANConsulting: VINITA, JOCELYNCopy To: Faustino YoungCopy To: VENERUS, BRYANCopy To: Vinita, Esha ID Date Data Source [id number] 07/07/2019 02:01:00 PM EST [place] ([facility]) Name Value Range Interpretation Code Description Data Shelly rce(s) Supporting Document(s) TROPONIN T 0.01 NG/ML TROPONIN T [place] ([facility]) Note: TROPONIN T0.1 ng/ml Recommended as the clinical threshold value forTroponin T.Responsible Observer: SUSAN) ID Date Data Source [id number] 07/07/2019 02:01:00 PM EST [place] ([facility]) Name Value Range Interpretation Code Description Data Shlely rce(s) Supporting Document(s) Reported Physicians See Note Reported Physici ans [place] ([facility]) Note: Reported Physicians:Ordering: FAUSTINO UMANAAttending: VENERUS, YUSEFANConsulting: VINITA, JOCELYNCopy To: Christiane YoungdeCopy To: VENERUS, BRYANCopy To: Vinita, Esha ID Date Data Source [id number] 07/07/2019 02:01:00 PM EST [place] ([facility]) Name Value Range Interpretation Code Description Data Shelly rce(s) Supporting Document(s) A/G RATIO 1.8 A/G RATIO [place] ([facility]) Note: Responsible Observer: () AFR AMER GFR >60 mL/min AFR AMER GFR [place] ([facility]) Note: Male GFR Interprentation 20- 49 [...] 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 63 yrs AGE [facility] ([facility]) Note: Responsible Observer: () Albumin [Mass/volume] in Blood by Bromocresol purple ( BCP) dye binding method 4.8 G/DL ALBUMIN [place] ([facility]) Note: Responsible Observer: () ALKALINE PHOS 55 U/L ALKALINE PHOS [place] ([facility]) Note: Responsible Observer: () BUN 15 MG/DL BUN [place] ([facility]) Note: Responsible Observer: () Anion gap in Body fluid 15.0 mmol/L ANION GAP [place] ([facility]) Note: Responsible Observer: () BUN/CREAT 19 BUN/CREAT [place] ([facility]) Note: Responsible Observer: () Calcium [Moles/volume] in Urine collected for unspecified durati on 10.6 MG/DL Above high normal CALCIUM [facility] ([facility]) Note: Responsible Observer: () Chloride [Moles/volume] in Serum, Plasma or Blood 102 mEq/L CHLORIDE [place] ([facility]) Note: Responsible Observer: () CO2 24 MEQ/L CO2 [place] ([facility]) Note: Responsible Observer: () COMPREHENSIVE METABOLIC PANEL See Note COMPRE HENSIVE METABOLIC PANEL [place] ([facility]) Note: COMPREHENSIVE METABOLIC PANELR esponsible Observer: () Creatinine [Moles/volume] in Vitreous fluid 0.8 MG/DL CREATININE [facility] ([facility]) Note: Responsible Observer: () Globulin [Mass/time] in 24 hour Urine 2.7 GM/DL GLOBULIN [place] ([facility]) Note: Responsible Observer: () Glucose [Mass/volume] in Urine collected for unspecified duratio n 120 MG/DL Above high normal GLUCOSE [place] ([facility]) Note: Responsible Observer: () NON-AA GFR >60 mL/min NON-AA GFR [place] ([facility]) Note: Responsible Observer: () Potassium [Mass/volume] in Blood 4.3 mEq/L POT ASSIUM [place] ([facility]) Note: Responsible Observer: () SGOT/AST 26 U/L SGOT/AST [place] ([facility]) Note: Responsible Observer: () Sodium [Moles/volume] in Serum, Plasma or Blood 141 mEq/L SODIUM [place] ([facility]) Note: Responsible Observer: () SGPT/ALT 45 U/L SGPT/ALT [place] ([facility]) Note: Responsible Observer: () TOTAL BILI 0.7 MG/DL TOTAL BILI [facility] ([facility]) Note: Responsible Observer: () TOTAL PROTEIN 7.5 G/DL TOTAL PROTEIN [place] ([facility]) Note: Responsible Observer: () ID Date Data Source [id number] 07/07/2019 02:01:00 PM EST [place] ([facility]) Name Value Range Interpretation Code Description Data Shelly rce(s) Supporting Document(s) Reported Physicians See Note Reported Physici ans [place] ([facility]) Note: Reported Physicians:Ordering: Sandy UMANAending: Liyah PANIAGUAulting: Alex TALAMANTES To: Azeb Young To: Trina PANIAGUA To: Esha Talamantes ID Date Data Source [id number] 07/07/2019 02:01:00 PM EST [place] ([facility]) Name Value Range Interpretation Code Description Data Shelly rce(s) Supporting Document(s) CRP-HS 1.00 MG/L CRP-HS [place] ([facility]) Note: CDC/[facility] HS-CRP CUT-OFF : RELATIVE RISK: <1.0 mg/L Low 1.0 - 3.0 mg/L Average >3.0 mg/L High Optimally, the average of HS-CRP results repeated two weeks apart should be used for risk assessment.Responsible Observer: SUSAN) ID Date Data Source [id number] 07/07/2019 02:01:00 PM [facility] ([facility] Name Value Range Interpretation Code Description Data Shelly rce(s) Supporting Document(s) Reported Physicians See Note Reported Physici ans [place] ([facility]) Note: Reported Physicians:Ordering: Sandy UMANAending: RACHEL PANIAGUAonsulting: ESHA TALAMANTESCopninfa To: Azeb Young To: YUSEF PANIAGUAANCopy To: Esha Talamantes ID Date Data Source [id number] 07/07/2019 02:01:00 PM [facility] ([facility] Name Value Range Interpretation Code Description Data Shelly rce(s) Supporting Document(s) CULTURE BLOOD See Note CULTURE BLOOD [place] ([facility]) Note: _CULTURE BLOOD_ [place] [address] CLIA# [id number] SEE SCANNED REPORT{ PRELIMResponsible Observer: JOSE) ID Date Data Source [id number] 07/14/2019 03:40:00 AM [facility] Name Value Range Interpretation Code Description Data Shelly rce(s) Supporting Document(s) CULTURE BLOOD [facility] _CULTURE BLOOD_ TEST PERFORM ED AT [address] [address] CLIA# [id number] SEE SCANNED REPORT{ PRELIM ID Date Data Source [id number] 07/07/2019 04:00:00 PM [facility] Name Value Range Interpretation Code Description Data Shelly rce(s) Supporting Document(s) Erythrocyte sedimentation rate by Westergren method 1 mm/hr 0 - 20 [facility] SED RATE REENTER 1 [facility] ID Date Data Source [id number] 07/07/2019 02:42:00 PM EST [facility] Name Value Range Interpretation Code Description Data Shelly rce(s) Supporting Document(s) COMPREHENSIVE METABOLIC PANEL [facility] COMPREHENSIVE METABOLIC PANEL Sodium [Moles/volume] in Serum or Plasma 141 mEq/L 134 - 153 [facility] Potassium [Moles/volume] in Serum or Plasma 4.3 mEq/L 3.6 - 5.0 [facility] Chloride [Moles/volume] in Serum or Plasma 102 mEq/L 98 - 107 [facility] Carbon dioxide, total [Moles/volume] in Serum or Plasma 24 MEQ/L 22 - 30 [facility] Glucose [Mass/volume] in Serum or Plasma 120 MG/DL 65 - 110 H [facility] BUN 15 MG/DL 7 - 21 [facility] Creatinine [Mass/volume] in Serum or Plasma 0.8 MG/DL 0.7 - 1.5 [facility] BUN/CREAT 19 8 - 27 [facility] Protein [Mass/volume] in Serum or Plasma 7.5 G/DL 6.3 - 8.2 [facility] Albumin [Mass/volume] in Serum or Plasma 4.8 G/DL 3.9 - 5.0 [facility] Globulin [Mass/volume] in Serum by calculation 2.7 GM/DL 2.4 - 3.2 [facility] A/G RATIO 1.8 0.8 - 2.0 [facility] Calcium [Mass/volume] in Serum or Plasma 10.6 MG/DL 8.4 - 10.2 H [facility] Bilirubin.total [Mass/volume] in Serum or Plasma 0.7 MG/DL 0.2 - 1.3 [facility] Alkaline phosphatase [Enzymatic activity/volume] in Serum or Plasma 55 U/L 38 - 126 [facility] Aspartate aminotransferase [Enzymatic activity/volume] in Serum or Plasma 26 U/L 5 - 40 [facility] Alanine aminotransferase [Enzymatic activity/volume] in Seru m or Plasma 45 U/L 7 - 56 [facility] Anion gap 3 in Serum or Plasma 15.0 mmol/L 8.0 - 16.0 [facility] AGE 63 yrs [facility] NON-AA GFR >60 mL/min [facility] Hosp ital AFR AMER GFR >60 mL/min [facility] Ho spital Male GFR In terprentation [...] >32 mL/min Normal ID Date Data Source [id number] 07/07/2019 02:41:00 PM EST [facility] Name Value Range Interpretation Code Description Data Shelly rce(s) Supporting Document(s) CBC W/AUTOMATED DIFF [facility] COMPLETE BLOOD COUNT Leukocytes [#/volume] in Blood by Automated count 11.5 10^3/uL 4.2 - 11.0 H [facility] Erythrocytes [#/volume] in Blood by Automated count 5.23 10^6/uL 4. 50 - 6.30 [facility] Hemoglobin [Mass/volume] in Blood 15.9 g/dL 14.0 - 16.0 [facility] Hematocrit [Volume Fraction] of Blood by Automated count 47.4 % 4 1.0 - 51.0 [facility] Erythrocyte mean corpuscular volume [Entitic volume] by Auto mated count 90.6 fL 80.0 - 94.0 [facility] Erythrocyte mean corpuscular hemoglobin [Entitic mass] by Automated count 30.4 pg 27.0 - 34.0 [facility] Erythrocyte mean corpuscular hemoglobin concentration [Mass/volume] by Automated count 33.5 g/dL 31.0 - 36.0 [facility] Erythrocyte distribution width [Ratio] by Automated count 12.8 % 11.5 - 14.8 [facility] Platelets [#/volume] in Blood by Automated count 217 10^3/uL 150 - 45 0 [facility] Platelet mean volume [Entitic volume] in Blood by Automated count 9.2 fL 7.4 - 10.4 [facility] Neutrophils/100 leukocytes in Blood by Automated count 72.5 % 37. 0 - 80.0 [facility] Lymphocytes/100 leukocytes in Blood by Manual count 17.7 % 25.0 - 40.0 L [facility] Monocytes/100 leukocytes in Blood by Automated count 7.6 % 3.0 - 8.0 [facility] Eosinophils/100 leukocytes in Blood by Automated count 1.6 % 0.0 - 7.0 [facility] Basophils/100 leukocytes in Blood by Automated count 0.3 % 0.0 - 2.0 [facility] %IG 0.3 % 0.0 - 0.0 H [facility] al %NRBC 0.0 % 0.0 - [facility] [#/volume] in Blood by Automated count 8.34 10^3/uL 2.00 - 6.90 H [facility] Lymphocytes [#/volume] in Blood by Automated count 2.04 10^3/uL 0.60 - 3.40 [facility] Monocytes [#/volume] in Blood by Automated count 0.87 10^3/uL 0.00 - 0.90 [facility] Eosinophils [#/volume] in Blood by Automated count 0.18 10^3/uL 0.00 - 0.70 [facility] Basophils [#/volume] in Blood by Automated count 0.04 10^3/uL 0.00 - 0.20 [facility] #IG 0.04 10^3/uL 0.00 - 0.10 [facility] #NRBC 0.00 10^3/uL 0.00 - 0.00 [facility] MANUAL DIFF NOT INDICATED [facility] RBC MORPH NOT INDICATED [facility] ID Date Data Source [id number] 07/07/2019 02:40:00 PM EST [facility] Name Value Range Interpretation Code Description Data Shelly rce(s) Supporting Document(s) TROPONIN T 0.01 NG/ML 0.00 - 0.10 [facility] TROPONIN T0.1 ng/ml Recommended as the c linical threshold value forTroponin T. ID Date Data Source [id number] 07/07/2019 02:40:00 PM [facility] Name Value Range Interpretation Code Description Data Shelly rce(s) Supporting Document(s) C reactive protein [Mass/volume] in Serum or Plasma by High sensitivity method 1.00 MG/L 1.00 - 3.00 [facility] HS-CRP CUT-OFF: RELATIVE RISK: <1.0 mg/L Low 1.0 - 3.0 mg/L Average >3.0 mg/L High Optimally, the average of HS-CRP results repeated two weeks apart should be used for risk assessment. ID Date Data Source [id number] 07/07/2019 02:40:00 PM [facility] Name Value Range Interpretation Code Description Data Shelly rce(s) Supporting Document(s) Prothrombin time (PT) 12.5 SECONDS 11.0 - 15.5 [facility] INR in Platelet poor plasma by Coagulation assay 0.92 0.93 - 1. 23 L [facility] aPTT in Blood by Coagulation assay 27.1 SECONDS 24.8 - 36.7 [facility] \\BLDo\\INR INTERPRETATION\\BLDx\\ Therapeutic range for Coumadin and related oral anticoagulants. - International Normalized Ratio (INR): 2.0 - 3.0 for Venous Thrombosis, Pulmonary Embolus, Tissue heart valves, Acute ID Atrial Fibrillation, Valvular heart disease and recurrent [...] and other interferences. ID Date Data Source [id number] 07/07/2019 02:39:00 PM [facility] Name Value Range Interpretation Code Description Data Shelly rce(s) Supporting Document(s) Lactate [Moles/volume] in Serum or Plasma 3.0 MMOL/L 0.2 - 2.2 H [facility] ID Date Data Source [id number] 06/25/2019 12:00:00 AM [facility] ([facility]) Name Value Range Interpretation Code Description Data Shelly rce(s) Supporting Document(s) Hemoglobin A1c/Hemoglobin.total in Blood 6.5 Abnormal (applies to non-numeric results) HbA1C [facility] ([facility]) ID Date Data Source [id number] 06/25/2019 12:00:00 AM EST [facility] ([facility]) Name Value Range Interpretation Code Description Data Shelly rce(s) Supporting Document(s) Glucose [Mass/volume] in Urine collected for unspecified duration 1 16 Normal Glucose [facility] ([facility]) Procedure Social History Code Duration Value Status Description Data Source(s ) Smoking 07/20/2020 12:00:00 AM EST Former Smoker completed Former Smoker [facility] ([facility]) Smoking 07/16/2020 12:00:00 AM EST Patient is a former smoker completed Patient is a former smoker [facility] ([facility], ) Alcohol intake 05/28/2020 12:00:00 AM EST Yes completed [facility] Cigarette pack-years 05/28/2020 12:00:00 AM EST UNK completed [facility] Cigarettes smoked current (pack per day) - Reported 05/28/20 12:00:00 AM EST UNK completed [facility] Smoking 05/28/2020 12:00:00 AM EST Former smoker completed Former smoker [facility] 04/12/2020 09:42:24 AM EDT Current some day smoker com pleted Current some day smoker [facility] Smoking 04/12/2020 09:42:00 AM EDT Current some day smoker com pleted Current some day smoker [facility] 04/11/2020 05:52:00 PM EDT Current every day smoker co mpleted Current every day smoker [facility] Smoking 04/11/2020 05:52:00 PM EDT Current every day smoker co mpleted Current every day smoker [facility] Vital Signs ID Date Data Source UNK Name Value Range Interpretation Code Description Data Source(s) Diastolic blood pressure 83 mm[Hg] 83 mm[Hg] eCW1 ([facility]) Systolic blood pressure 177 mm[Hg] 177 mm[Hg] e CW1 ([facility]) Body temperature 97.6 [degF] 97.6 [degF] eCW1 ( [facility]) Respiratory rate 22 /min 22 /min eCW1 ([facility]) Heart rate 86 /min 86 /min eCW1 ([facility]) Body mass index (BMI) [Ratio] 27.14 kg/m2 27.14 kg/m2 eCW1 ([facility]) Body height 71 [in_i] 71 [in_i] eCW1 ([facility]) Body weight 194.6 [lb_av] 194.6 [lb_av] eCW1 ([facility]) Body surface area Derived from formula 2.05 m2 2.[address] [facility] ([facility]) Body weight 84.823 kg 84.[address] [facility] ([facility] [place] body weight 172 [lb_av] 172 [lb_av] [facility] ([facility]) Body mass index (BMI) [Ratio] 26.1 kg/m2 26.1 k g/m2 [facility] ([facility]) Body weight 187.00 [lb_av] 187.00 [[facility]_av] [facility] Body height 71 [in_i] 71 [in_i] [facility] ([facility]) 5'11" Oxygen saturation in Arterial blood by Pulse oximetry 96 % 96 % [facility] ([facility]) Room Air Heart rate 74 /min 74 /min [facility] ([facility]) Diastolic blood pressure 60 mm[Hg] 60 mm[Hg] [facility] ([facility]) Systolic blood pressure 120 mm[Hg] 120 mm[Hg] [facility] Body mass index (BMI) [Ratio] 26.5 kg/m2 26.5 k g/m2 [facility] ([facility]) Body weight 190.00 [lb_av] 190.00 [lb_av] [facility] Body height 71 [in_i] 71 [in_i] [facility] ([facility]) 5'11" Oxygen saturation in Arterial blood by Pulse oximetry 94 % 94 % [facility] ([facility]) Room Air Heart rate 90 /min 90 /min [facility] ([facility]) Diastolic blood pressure 72 mm[Hg] 72 mm[Hg] [facility] ([facility]) Systolic blood pressure 140 mm[Hg] 140 mm[Hg] [facility] ([facility]) Body surface area Derived from formula 2.06 m2 2.[address] [facility] ([facility]) Body weight 86.184 kg 86.[address] [facility] ([facility] [place] body weight 172 [lb_av] 172 [lb_av] [facility] ([facility]) Body surface area Derived from formula 2.03 m2 2.[address] [facility] ([facility]) Body weight 82.555 kg 82.[address] [facility] ([facility] [place] body weight 172 [lb_av] 172 [lb_av] [facility] ([facility]) Body mass index (BMI) [Ratio] 25.4 kg/m2 25.4 k g/m2 [facility] ([facility]) Body weight 182.00 [lb_av] 182.00 [lb_av] [facility] ([facility]) Body height 71 [in_i] 71 [in_i] [facility] ([facility]) " Oxygen saturation in Arterial blood by Pulse oximetry 93 % 93 % [facility] ([facility]) Room Air Heart rate 86 /min 86 /min [facility] ([facility]) Diastolic blood pressure 70 mm[Hg] 70 mm[Hg] [facility] ([facility]) Systolic blood pressure 130 mm[Hg] 130 mm[Hg] [facility] ([facility]) Body weight 88.452 kg 88.[address] [facility] ([facility]) Body weight 195.00 [lb_av] 195.00 [lb_av] [facility] ([facility]) Oxygen saturation in Arterial blood by Pulse oximetry 85 % 85 % [facility] ([facility], ) 88 ra Heart rate 71 /min 71 /min [facility] ([facility], ) Diastolic blood pressure 78 mm[Hg] 78 mm[Hg] [facility] ([facility], ) Systolic blood pressure 130 mm[Hg] 130 mm[Hg] [facility] ([facility], ) Oxygen saturation in Arterial blood by Pulse oximetry 92 % 92 % [facility] Body mass index (BMI) [Ratio] 26.36 kg/m2 26.36 kg/m2 [facility] Body weight 85.73 kg 85.73 kg [facility] Body height 180.3 cm 180.3 cm [facility] Heart rate 96 /min 96 /min [facility] Diastolic blood pressure 94 mm[Hg] 94 mm[Hg] [facility] Systolic blood pressure 162 mm[Hg] 162 mm[Hg] [facility] Inhaled oxygen concentration 21 % 21 % [place] ([facility]) Inhaled oxygen flow rate 0 L/min 0 L/min [place] ([facility]) Oxygen saturation in Arterial blood by Pulse oximetry 92 % 92 % [place] ([facility]) Body surface area Derived from formula 2.06 m2 2.06 m2 [place] ([facility]) Body mass index (BMI) [Ratio] 26.5 kg/m2 26.5 k g/m2 [place] ([facility]) Body weight 190 [lb_av] 190 [lb_av] [place] ( [facility]) Body height 71 [in_i] 71 [in_i] [place] ([facility] Body temperature 97.9 [degF] 97.9 [degF] [facility] ([facility]) Respiratory rate 24 /min 24 /min [place] ([facility]) Heart rate 68 /min 68 /min [place] [facility] Diastolic blood pressure 68 mm[Hg] 68 mm[Hg] [place] ([facility]) Systolic blood pressure 128 mm[Hg] 128 mm[Hg] [facility] ([facility]) Inhaled oxygen concentration 21 % 21 % [place] ([facility]) O2 with mask 84% without mask went to 95% Inhaled oxygen flow rate 0 L/min 0 L/min [place] ([facility]) O2 with mask 84% without mask went to 95% Oxygen saturation in Arterial blood by Pulse oximetry 84 % 84 % [place] ([facility]) O2 with mask 84% without mask went to 95% Body surface area Derived from formula 2.07 m2 2.07 m2 [place] ([facility]) O2 with mask 84% without mask went to 95% Body mass index (BMI) [Ratio] 26.6 kg/m2 26.6 k g/m2 [place] ([facility]) O2 with mask 84% without mask went to 95% Body weight 191 [lb_av] 191 [lb_av] [place] ([facility]) O2 with mask 84% without mask went to 95% Body height 71 [in_i] 71 [in_i] [place] ([facility]) O2 with mask 84% without mask went to 95% Body temperature 97.6 [degF] 97.6 [degF] [facility] ([facility]) O2 with mask 84% without mask went to 95% Respiratory rate 24 /min 24 /min [place] ([facility]) O2 with mask 84% without mask went to 95% Heart rate 91 /min 91 /min [place] ([facility]) O2 with mask 84% without mask went to 95% Diastolic blood pressure 82 mm[Hg] 82 mm[Hg] [place] ([facility]) O2 with mask 84% without mask went to 95% Systolic blood pressure 132 mm[Hg] 132 mm[Hg] [facility] ([facility]) O2 with mask 84% without mask went to 95% Inhaled oxygen concentration 21 % 21 % [place] ([facility]) Inhaled oxygen flow rate 0 L/min 0 L/min [place] ([facility]) Oxygen saturation in Arterial blood by Pulse oximetry 94 % 94 % [place] ([facility]) Body surface area Derived from formula 2.07 m2 2.07 m2 [place] ([facility]) Body mass index (BMI) [Ratio] 26.6 kg/m2 26.6 k g/m2 [place] ([facility]) Body weight 191 [lb_av] 191 [lb_av] [place] ([facility]) Body height 71 [in_i] 71 [in_i] [place] ([facility]) Body temperature 97.1 [degF] 97.1 [degF] [place] ([facility]) Respiratory rate 24 /min 24 /min [place] ([facility]) Heart rate 84 /min 84 /min [place] ([facility]) Diastolic blood pressure 86 mm[Hg] 86 mm[Hg] [place] ([facility]) Systolic blood pressure 134 mm[Hg] 134 mm[Hg] [facility] ([facility]) Inhaled oxygen concentration 21 % 21 % [place] ([facility]) Inhaled oxygen flow rate 0 L/min 0 L/min [place] ([facility]) Oxygen saturation in Arterial blood by Pulse oximetry 97 % 97 % [place] ([facility]) Body surface area Derived from formula 2.10 m2 2.10 m2 [place] ([facility]) Body mass index (BMI) [Ratio] 27.8 kg/m2 27.8 k g/m2 [place] ([facility]) Body weight 199 [lb_av] 199 [lb_av] [place] ([facility]) Body height 71 [in_i] 71 [in_i] [place] ([facility]) Body temperature 97.8 [degF] 97.8 [degF] [place] [facility] ([facility]) Respiratory rate 24 /min 24 /min [place] ([facility]) Heart rate 90 /min 90 /min [place] ([facility]) Diastolic blood pressure 78 mm[Hg] 78 mm[Hg] [place] ([facility]) Systolic blood pressure 134 mm[Hg] 134 mm[Hg] [facility] Inhaled oxygen concentration 21 % 21 % [place] ([facility]) Inhaled oxygen flow rate 0 L/min 0 L/min [place] ([facility]) Oxygen saturation in Arterial blood by Pulse oximetry 97 % 97 % [place] ([facility]) Body surface area Derived from formula 2.12 m2 2.12 m2 [place] ([facility]) Body mass index (BMI) [Ratio] 28.3 kg/m2 28.3 k g/m2 [place] ([facility]) Body weight 203 [lb_av] 203 [lb_av] [place] ([facility]) Body height 71 [in_i] 71 [in_i] [place] ([facility]) Body temperature 97.8 [degF] 97.8 [degF] [place] [facility] ([facility]) Respiratory rate 24 /min 24 /min [place] ([facility]) Heart rate 97 /min 97 /min [place] ([facility]) Diastolic blood pressure 76 mm[Hg] 76 mm[Hg] [place] ([facility]) Systolic blood pressure 132 mm[Hg] 132 mm[Hg] G [facility]) Inhaled oxygen concentration 21 % 21 % [place] ([facility]) Inhaled oxygen flow rate 0 L/min 0 L/min [place] ([facility]) Oxygen saturation in Arterial blood by Pulse oximetry 98 % 98 % [place] ([facility]) Body surface area Derived from formula 2.07 m2 2.07 m2 [place] ([facility]) Body mass index (BMI) [Ratio] 26.6 kg/m2 26.6 k g/m2 [place] ([facility]) Body weight 191 [lb_av] 191 [lb_av] [place] ([facility]) Body height 71 [in_i] 71 [in_i] [place] ([facility]) Body temperature 97.8 [degF] 97.8 [degF] [place] ([facility]) Respiratory rate 24 /min 24 /min [place] ([facility]) Heart rate 86 /min 86 /min [place] ([facility]) Diastolic blood pressure 72 mm[Hg] 72 mm[Hg] [place] ([facility]) Systolic blood pressure 124 mm[Hg] 124 mm[Hg] [facility] ([facility]) Patient Treatment Plan of Care Planned Activity Planned Date Details Description Data Source (s) Albuterol 0.833 MG/ML / Ipratropium [place] 0.167 MG/M L Inhalant Solution 05/20/2020 12:00:00 AM [facility] Metformin hydrochloride 500 MG Oral Tablet 05/20/2020 12:00:00 AM [facility] Metformin hydrochloride 500 MG Oral Tablet 05/20/2020 12:00:00 AM E [facility]) atorvastatin 20 MG Oral Tablet 05/20/2020 12:00:[address] [facility]) 60 ACTUAT Budesonide 0.16 MG/ACTUAT / fo rmoterol fumarate 0.0045 MG/ACTUAT Metered Dose Inhaler [Symbicort] 05/20/2020 12:00:[address] [facility]) 200 ACTUAT Albuterol 0.09 MG/ACTUAT Metered Dose Inhal er [ProAir] 05/20/2020 12:00:00 AM [facility] ([facility]) Lisinopril 5 MG Oral Tablet 05/20/2020 12:00:[address] [facility]) Triamcinolone Acetonide 1 MG/ML Topical Lotion 05/20/2020 12:00:[address] [facility]) Lancets Ultra Fine Miscellaneous 05/20/2020 12:00:[address] [facility]) IGlucose Test Strips In Vitro 05/20/2020 12:00:[address] [facility]) Lisinopril 5 MG Oral Tablet 05/19/2020 12:00:00 AM [facility] Lisinopril 5 MG Oral Tablet 05/17/2020 12:00:[address] [facility]) Prednisone 10 MG Oral Tablet 05/07/2020 12:00:[address] [facility]) doxycycline hyclate 100 MG Oral Capsule 05/06/2020 12:00:[address] [facility]) 60 ACTUAT Budesonide 0.16 MG/ACTUAT / fo rmoterol fumarate 0.0045 MG/ACTUAT Metered Dose Inhaler [Symbicort] 04/22/2020 12:00:[address] [facility]) atorvastatin 20 MG Oral Tablet 04/22/2020 12:00:[address] [facility]) Metformin hydrochloride 500 MG Oral Tablet 04/22/2020 12:00:00 AM E [facility] ([facility]) Lisinopril 5 MG Oral Tablet 04/22/2020 12:00:[address] [facility]) 200 ACTUAT Albuterol 0.09 MG/ACTUAT Metered Dose Inhal er [ProAir] 04/22/2020 12:00:00 AM [facility]) 60 ACTUAT Budesonide 0.16 MG/ACTUAT / fo rmoterol fumarate 0.0045 MG/ACTUAT Metered Dose Inhaler [Symbicort] [facility] MG Oral Tablet 11/20/2019 12:00:00 AM [facility]) 200 ACTUAT Albuterol 0.09 MG/ACTUAT Metered Dose Inhal er [ProAir] 10/24/2019 12:00:00 AM [facility] ([facility]) atorvastatin 20 MG Oral Tablet 08/20/2019 12:00:[address] [facility]) IGlucose Test Strips In Vitro 08/20/2019 12:00:[address] [facility]) Lancets Ultra Fine Miscellaneous 08/20/2019 12:00:00 AM [facility] ([facility]) Metformin hydrochloride 500 MG Oral Tablet 08/20/2019 12:00:00 AM E [facility] ([facility]) 60 ACTUAT Budesonide 0.16 MG/ACTUAT / fo rmoterol fumarate 0.0045 MG/ACTUAT Metered Dose Inhaler [Symbicort] 08/20/2019 12:00:[address] [facility]) 200 ACTUAT Albuterol 0.09 MG/ACTUAT Metered Dose Inhal er [ProAir] 08/20/2019 12:00:00 AM [facility] ([facility]) Triamcinolone Acetonide 1 MG/ML Topical Lotion 08/20/2019 12:00:[address] [facility]) Lisinopril 5 MG Oral Tablet 08/20/2019 12:00:[address] [facility]) 5000 MG Testosterone 0.01 MG/MG Topical Gel [Androgel] 08/20/2019 12:00:00 AM [facility]) atorvastatin 20 MG Oral Tablet 06/25/2019 12:00:[address] [facility]) Metformin hydrochloride 500 MG Oral Tablet 06/25/2019 12:00:00 AM E [facility]) IGlucose Test Strips In Vitro 06/25/2019 12:00:[address] [facility]) Lancets Ultra Fine Miscellaneous 06/25/2019 12:00:[address] [facility]) 60 ACTUAT Budesonide 0.16 MG/ACTUAT / fo rmoterol fumarate 0.0045 MG/ACTUAT Metered Dose Inhaler [Symbicort] 06/25/2019 12:00:[address] [facility]) Metformin hydrochloride 500 MG Oral Tablet 05/30/2019 12:00:[address] [place] ([facility]) IGlucose Test Strips In Vitro 01/24/2019 12:00:00 AM [facility]) Lancets Ultra Fine Miscellaneous 01/24/2019 12:00:00 AM [facility] ([facility]) Triamcinolone Acetonide 1 MG/ML Topical Lotion 01/24/2019 12:00:00 AM [facility] ([facility]) atorvastatin 20 MG Oral Tablet 01/24/2019 12:00:00 AM EDT [place] ([facility]) 30 ACTUAT fluticasone furoate 0.1 MG/ACT UAT / vilanterol 0.025 MG/ACTUAT Dry Powder Inhaler [Breo] 01/24/2019 12:00:00 AM EDT [place] ([facility]) 200 ACTUAT Albuterol 0.09 MG/ACTUAT Metered Dose Inhal er [ProAir] 01/24/2019 12:00:00 AM EDT [place] ([facility]) pantoprazole 40 MG Delayed Release Oral Tablet 04/16/2016 12:00:00 AM EDT [facility] atorvastatin 40 MG Oral Tablet 10/10/2014 12:00:00 AM EDT [facility] 200 ACTUAT Levalbuterol 0.045 MG/ACTUAT Metered Dose I nhaler [Xopenex] 04/23/2014 12:00:00 AM EST [facility] Cholecalciferol 2000 UNT Oral Capsule [facility] Nitroglycerin 0.4 MG Sublingual Tablet [facility] DAILY DIONNE (THERAGRAN) per tablet [facility] ALBUTEROL IN [facility] 24 HR metoprolol succinate 25 MG Extended Release Oral Tablet [facility] Aspirin 325 MG Oral Tablet [facility]
[2020-07-31] MEDS ORDERED: AMIODARONE HCL 150 MG in IV 1 EA IV STA (23:07)
--- NOTE | 2020-07-31 23:23 | REPVR ---
PROCEDURE INFORMATION: Exam: XR Chest, 1 View Exam date and time: 07/31/2020 11:07 PM Age: 64 years old Clinical indication: Chest pain; Additional info: Palpiations TECHNIQUE: Imaging protocol: XR of the chest Views: 1 view. COMPARISON: 1. CR PORTABLE CHEST X-RAY 2020-07-15 10:[address] Chest without contrast 2020-07-04 08:[address] ANGIO CHEST 2020-06-08 07:35 4. IA Chest, 2 view PA, Lat 2020-07-04 08:40 FINDINGS: Tubes, catheters and devices: Right-sided chest tube tip overlaps the mid right lung, previously more medial. Lungs: Severe COPD. Infiltrates or atelectasis in the right lower lung appear mildly increased. Pleural spaces: Small unchanged right-sided pleural effusion. Heart/Mediastinum: Unremarkable. No cardiomegaly. Bones/joints: Cervical fusion. Chronic healed rib fractures. IMPRESSION: 1. Severe COPD. Small unchanged right-sided pleural effusion. Infiltrates or atelectasis in the right lower lung appear mildly increased. 2. Right-sided chest tube tip overlaps the mid right lung, previously more medial. Electronically signed by: Bc Nava On 07/31/2020 23:23:20 PM
[2020-08-01 00:15] LABS: MAGNESIUM LEVEL 1.9 MG/DL (1.8-2.4); THYROID STIMULATING HORMONE 2.01 uIU/ML (0.358-3.740)
[2020-08-01 00:30] LABS: BASO % 0.1 % (0.0-1.0); HEMATOCRIT 36.6 % (42.0-52.0); HEMOGLOBIN 12.3 g/dl (13.5-17.5); LYMPH # 1.5 10^3/uL (1.5-5.0); LYMPH % 17.1 % (24.0-44.0); MEAN CORPUSCULAR HEMOGLOBIN 30.4 pg (27.0-33.0); MEAN CORPUSCULAR HGB CONC 33.6 g/dl (32.0-36.5); MEAN CORPUSCULAR VOLUME 90.4 fl (80.0-96.0); MONO # 0.5 10^3/uL (0.0-0.8); MONO % 6.2 % (2.0-8.0); NEUTROPHILS # 6.7 10^3/uL (1.5-8.5); NEUTROPHILS % 75.9 % (36.0-66.0); PLATELET COUNT, AUTOMATED 377 10^3/uL (150-450); RED BLOOD COUNT 4.05 10^6/uL (4.30-6.10); WHITE BLOOD COUNT 8.8 10^3/uL (4.0-10.0)
--- OUTSIDE RECORDS SUMMARY | 2020-08-01 00:59 | CCD ---
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 A general authorization for [...] Date Indications Data Source(s ) Outpatient [address] [facility] [place] [id number] 07/20/2020 12:00:00 AM EST eCW1 ([facility]) Outpatient Attender: Lizett Nixon/Marina/Khoa/Re indl 06/22/2020 09:15:00 AM EST MEDENT ([facility]) Outpatient Attender: Lizett Nixon/[place]/Khoa/Re indl 06/14/2020 12:23:00 AM EST MEDENT ([facility]) Outpatient Attender: Lizett Nixon/[place]/Khoa/Re indl 06/13/2020 12:23:00 AM EST MEDENT ([facility]) Outpatient Attender: Lizett Nixon/[place]/Khoa/Re indl 06/12/2020 12:23:00 AM EST MEDENT ([facility]) Outpatient Referrer: Bethany Felix MD 06/11/2020 09:36:00 AM EST Pleural effusion, not elsewhere classified [facility] Pleural effusion, not elsewhere classifi ed Outpatient Attender: Lizett Nixon/[place]/Khoa/Re indl 06/10/2020 12:23:00 AM EST MEDENT ([facility]) Outpatient Attender: Lizett Nixon/[place]/Khoa/Re indl 06/09/2020 12:23:00 AM EST MEDENT ([facility]) Outpatient Attender: Lizett Nixon/[place]/Khoa/Re indl 06/08/2020 12:23:00 AM EST MEDENT ([facility]) Outpatient Admitter: Bethany Felix MDReferrer: Bethany Felix MD 06/08/2020 12:00:00 AM EST Secondary malignant neoplasm of unspecified site [facility] Secondary malignant neoplasm of unspecif ied site Outpatient Attender: Kike Nixon/[place]/Khoa/R eindl 06/01/2020 09:00:00 AM EST MEDENT ([facility]) Outpatient Attender: Julio Reyes MDReferrer: Stevan Talamantes MD [email or web address] 05/28/2020 12:00:00 AM EST - 05/28/2020 10:45:33 AM EST [facility] Outpatient<td ID="encounterTypeDescripti onID0">STANDARD OV</td><td>Esha Talamantes MD</td><td>[facility]</td><td>05/20/2020</td><td>8:34AM</td><td>05/07/2020 11:59PM</td><td><content ID="encounterDiagnosisID0-0">Working Diagnosis of Abdominal Pain</content>, <content ID="encounterDiagnosisID0-1">Working Diagnosis of Abdominal Pain in the Central Upper Belly (Epigastric)</content>, <content ID="encounterDiagnosisID0-2">Chest Pain</content>, <content ID="encounterDiagnosisID0-3">Hypoxia</content></td> Attender: Esha Talamantes MD [facility] 05/20/2020 08:34:00 AM EST - 05/07/2020 11:59:00 PM EST HypoxiaChest PainWorking Diagnosis of Ab dominal Pain in the Central Upper Belly (Epigastric)Working Diagnosis of Abdominal Pain [facility] ([facility]) Hypoxia Chest Pain Working Diagnosis of Abdominal Pain in t he Central Upper [place]ly (Epigastric) Working Diagnosis of Abdominal Pain Outpatient Attender: Esha Talamantes MDConsultant: Esha branch MD 05/07/2020 09:30:00 AM EST - 05/07/2020 10:30:00 AM EST [facility] Outpatient<td ID="encounterTypeDescripti onID1">STANDARD OV</td><td>Esha Talamantes MD</td><td>[facility]</td><td>05/07/2020</td><td>8:07AM</td><td>9:08AM</td><td><content ID="encounterDiagnosisID1-0">Acute Infective Exacerbation of Chronic Obstructive Airways Disease</content>, <content ID="encounterDiagnosisID1-1">Nicotine Dependence Uncomplicated</content>, <content ID="encounterDiagnosisID1- 2">Atypical Chest Pain</content></td> Attender: Esha Talamantes MD [facility], 05/07/2020 08:07:00 AM EST - 05/07/2020 09:08:00 AM ES T Atypical Chest PainNicotine Dependence UncomplicatedAcute Infective Exacerbation of Chronic Obstructive Airways DiseaseAtypical Chest PainNicotine Dependence UncomplicatedAcute Infective Exacerbation of Chronic Obstructive Airways Disease Atypical Chest PainNicotine Dependence UncomplicatedAcute Infective Exacerbation of Chronic Obstructive Airways Disease [facility] ([facility]) Atypical Chest Pain Nicotine Dependence Uncomplicated Acute Infective Exacerbation of Chronic Obstructive Airways Disease Atypical Chest Pain Nicotine Dependence Uncomplicated Acute Infective Exacerbation of Chronic Obstructive Airways Disease Atypical Chest Pain Nicotine Dependence Uncomplicated Acute Infective Exacerbation of Chronic Obstructive Airways Disease Outpatient Attender: Esha Talamantes MDConsultant: Esha branch MD 04/30/2020 08:24:00 AM EST - 04/30/2020 09:24:00 AM EST [facility] Outpatient<td ID="encounterTypeDescripti onID2">HOSP I/P F/U</td><td>Esha Talamantes MD</td><td>[facility],</td><td>04/22/2020</td><td>10:05AM</td><td>11:03AM</td><td><content ID="encounterDiagnosisID2-0">Vitreous Floaters Right Eye</content>, <content ID="encounterDiagnosisID2-1">Chronic Obstructive Pulmonary Disease</content>, <content ID="encounterDiagnosisID2-2">Essential Hypertension Benign</content>, <content ID="encounterDiagnosisID2-3">Hyperlipidemia</content>, <content ID="encounterDiagnosisID2-4">Diabetes Mellitus Type 2 in Obese</content>, <content ID="encounterDiagnosisID2-5">Lung Mass</content>, <content ID="encounterDiagnosisID2-6">Fatigue</content></td> Attender: Esha Talamantes MD [facility], 04/22/2020 10:05:00 AM EST - 04/22/2020 [...] Obstructive Pulmonary DiseaseHyperlipidemiaChronic Obstructive Pulmonary Disease [facility] ([facility]) Fatigue Lung Mass Diabetes Mellitus Type 2 [...] Patient discharged. Outpatient<td ID="encounterTypeDescripti onID3">RX UPDATE</td><td>[facility]td[facility]><td>11/20/2019</td><td>08/20/2019 11:10AM</td><td>08/20/2019 11:59PM</td><td></td> [facility]: [facility] 11:10[facility]00 AM EST - 08/20/2019 11:59:00 PM EST [place] ([facility]) Outpatient<td ID="encounterTypeDescripti onID4">ANNUAL PHYSICAL EXAM</td><td>Esha Talamantes MD</td><td[facility]td><td>08/20/2019</td><td>8:13AM</td><td>9:35AM</td><td><content ID="encounterDiagnosisID4-0">Fatigue</content>, <content ID="encounterDiagnosisID4-1">Hypogonadism</content>, <content ID="encounterDiagnosisID4-2">Hyperlipidemia</content>, <content ID="encounterDiagnosisID4-3">Benign Prostatic Hypertrophy</content>, <content ID="encounterDiagnosisID4-4">Diabetes Mellitus Type 2 in Nonobese</content>, <content ID="encounterDiagnosisID4-5">Routine History & Physical Senior Citizen with Abnormal Findings</content></td> Attender: Esha Talamantes MD [facility], 08/20/2019 08:13:00 AM EST - 08/20/2019 [...] in NonobeseBenign Prostatic HypertrophyHypogonadismFatigue HyperlipidemiaHyperlipidemiaHyperlipidemiaHyperlipidemiaHyperlipidemiaHyperlipid noe [place] ([facility]) Routine History & Physical Senior Citize n [...] 07:43:00 AM EST - 08/12/2019 08:43:00 AM [facility] Outpatient<td ID="encounterTypeDescripti onID5">STANDARD OV</td><td>Esha Talamantes MD</td><td>[facility]</td><td>08/07/2019</td><td>1:54PM</td><td>3:09PM</td><td><content ID="encounterDiagnosisID5-0">Cervicalgia</content>, <content ID="encounterDiagnosisID5-1">Chronic Obstructive Pulmonary Disease</content>, <content ID="encounterDiagnosisID5-2">Hypercalcemia</content>, <content ID="encounterDiagnosisID5-3">Bursitis Olecranon Left</content>, <content ID="encounterDiagnosisID5-4">Psoriasis</content>, <content ID="encounterDiagnosisID5-5">Diabetes Mellitus Secondary with Peripheral Neuropathy</content></td> Attender: Esha Talamantes MD [facility] 08/07/2019 01:54:00 PM EST - 08/07/2019 [...] DiseaseChronic Obstructive Pulmonary DiseaseChronic Obstructive Pulmonary Disease [place] ([facility]) Diabetes Mellitus Secondary with Periphe ral Neuropathy [...] Obstructive Pulmonary Disease Outpatient 07/07/2019 03:17:00 PM [facility] Emergency Attender: MALA PANIAGUA MDConsultant: Esha branch MD 07/07/2019 01:18:00 PM EST - 07/07/2019 03:37:00 PM [facility] Patient discharged. Outpatient<td ID="encounterTypeDescripti onID6">STANDARD OV</td><td>Esha Talamantes MD</td><td>[facility],</td><td>06/25/2019</td><td>10:55AM</td><td>11:58AM</td><td><content ID="encounterDiagnosisID6-0">Chronic Obstructive Pulmonary Disease</content>, <content ID="encounterDiagnosisID6-1">Hyperlipidemia</content>, <content ID="encounterDiagnosisID6-2">Diabetes Mellitus Type 2</content>, <content ID="encounterDiagnosisID6-3">Obesity</content>, <content ID="encounterDiagnosisID6-4">Diabetes Mellitus Type 2 with Coma</content>, <content ID="encounterDiagnosisID6-5">Hypogonadism</content></td> Attender: Esha Talamantes MD [facility], 06/25/2019 10:55:00 AM EST - 06/25/2019 [...] Obstructive Pulmonary DiseaseHyperlipidemiaChronic Obstructive Pulmonary Disease [facility] ([facility]) Hypogonadism Diabetes Mellitus Type 2 with Coma [...] 08/07/2019 Complete (Ref used - Patient objection) [facility] MEDICINE [facility], [facility] ([facility]) Medications Medication Brand Name Start Date [...] 1 TWICE A DAY THEREAFTER SOLD: 06/14/2020 [facility] pantoprazole 40 MG Delayed Release Oral Tablet PANTOPRAZOLE SODIUM 06/14/2020 12:00:00 AM EST tablet,delayed release (DR/EC) 30 T CARY ONE TABLET BY MOUTH EVERY DAY TAKE ONE TABLET BY MOUTH EVERY DAY SOLD: 06/14/2020 [email or web address] 100 mg 06/14/2020 12:00:00 AM EST capsule 60 TAKE ONE CAPSULE BY MOUTH TWICE A DAY TAKE ONE CAPSULE BY MOUTH TWICE A DAY SOLD: 06/14/2020 [email or web address] 7 ACTUAT umeclidinium 0.0625 MG/ACTUAT Dry Powder Inha ler [Incruse] Incruse Ellipta 06/01/2020 12:00:00 AM EST RESPIRATORY active MEDENT ([facility], ) Prednisone 10 MG Oral Tablet Prednisone 06/01/2020 12:00:00 AM EST ORAL completed MED[facility] ([facility], ) Metformin hydrochloride 500 MG Oral Tablet metFORMIN ( GLUCOPHAGE) 500 MG tablet metFORMIN (GLUCOPHAGE) 500 MG tablet 05/20/2020 12:00:00 AM EST 1 { tbl} Oral active Take 1 tablet by mouth 2 (two) times a day [facility] Lancets Ultra Fine Miscellaneous Lancets Ultra Fine Miscella neous 05/20/2020 12:00:00 AM EST active Lancets Ultra Fine [place] ([facility]) IGlucose Test Strips In Vitro IGlucose Test Strips In Vitro 05/20/2020 12:00:00 AM EST active IGlucose Test Str ips [place] ([facility]) Albuterol 0.833 MG/ML / Ipratropium Brom delmer 0.167 MG/ML Inhalant Solution ipratropium-albuterol (DUO-NEB) 0.5-2.5 mg/mL nebulizer ipratropium-albuterol (DUO-NEB) 0.5-2.5 mg/mL nebulizer 05/20/2020 12:00:00 AM EST active INHALE 1 VIAL VIA NEB QID PRN [facility] Triamcinolone Acetonide 1 MG/ML Topical Lotion Triamcinolone Acetonide 0.1% External Lotion Triamcinolone Acetonide 0.1% External Lotion 0 12:00:00 AM EST active triamcinolone ac etonide 1 MG/ML Topical Lotion [facility]) atorvastatin 20 MG Oral Tablet Atorvastatin Calcium 20 MG Oral Tablet Atorvastatin Calcium 20 MG Oral Tablet 05/20/2020 12:00:00 AM EST 1 active atorvastatin 20 MG Oral Table[facility] Metformin hydrochloride 500 MG Oral Tablet metFORMIN H Cl 500 MG Oral Tablet metFORMIN HCl 500 MG Oral Tablet 05/20/2020 12:00:00 AM EST active metformin hydrochloride 500 MG Oral Tablet [place] ([facility]) 60 ACTUAT Budesonide 0.16 MG/ACTUAT / fo rmoterol fumarate 0.0045 MG/ACTUAT Metered Dose Inhaler [Symbicort] Symbicort 160-4.5 MCG/ACT Inhalation Aerosol Symbicort 160-4.5 MCG/ACT Inhalation Aerosol 05/20/2020 12:00:00 AM EST active 60 ACTUAT budeso nide 0.16 MG/ACTUAT / formoterol fumarate 0.0045 MG/ACTUAT Metered Dose Inhaler [Symbicort] [place] ([facility]) 200 ACTUAT Albuterol 0.09 MG/ACTUAT Mete red Dose Inhaler [ProAir] ProAir HFA 108 (90 Base) MCG/ACT Inhalation Aerosol Solution ProAir HFA 108 (90 Base) MCG/ACT Inhalation Aerosol Solution 05/20/2020 12:00:00 AM EST 18 active [id number] 200 ACTUAT albuterol 0.09 MG/ACTUAT Metered Dose Inhaler [ProAir] [place] ([facility]) Lisinopril 5 MG Oral Tablet Lisinopril 5 MG Oral Tablet 07/2019 12:00:00 AM EST active lisinopril 5 MG O ral Tablet [place] ([facility]) Lisinopril 5 MG Oral Tablet lisinopril (PRINIVIL,ZESTR IL) 5 MG tablet lisinopril (PRINIVIL,ZESTRIL) 5 MG tablet 05/19/2020 12:00:00 AM EST 1 {tbl} O ral active Take 1 tablet by mouth daily [facility] Lisinopril 5 MG Oral Tablet Lisinopril 5 MG Oral Tablet 04/20 12:00:00 AM EST aborted lisinopril 5 MG Oral Tablet [place] ([facility]) Prednisone 10 MG Oral Tablet predniSONE 10 MG Oral Tab let predniSONE 10 MG Oral Tablet 05/07/2020 12:00:00 AM EST aborted prednisone 10 MG Oral Tablet [place] ([facility]) doxycycline hyclate 100 MG Oral Capsule Doxycycline Hy clate 100 MG Oral Capsule Doxycycline Hyclate 100 MG Oral Capsule 05/06/2020 12:00:00 AM EST active doxycycline hyclate 100 MG Oral Capsule [facility]) 60 ACTUAT Budesonide 0.16 MG/ACTUAT / fo rmoterol fumarate 0.0045 MG/ACTUAT Metered Dose Inhaler [Symbicort] Symbicort 160-4.5 MCG/ACT Inhalation Aerosol Symbicort 160-4.5 MCG/ACT Inhalation Aerosol 04/22/2020 12:00:00 AM EST aborted 60 ACTUAT budeso nide 0.16 MG/ACTUAT / formoterol fumarate 0.0045 MG/ACTUAT Metered Dose Inhaler [Symbicort] [place] ([facility]) 200 ACTUAT Albuterol 0.09 MG/ACTUAT Mete red Dose Inhaler [ProAir] ProAir HFA 108 (90 Base) MCG/ACT Inhalation Aerosol Solution ProAir HFA 108 (90 Base) MCG/ACT Inhalation Aerosol Solution 04/22/2020 12:00:00 AM EST 18 aborted [id number] 200 ACTUAT albuterol 0.09 MG/ACTUAT Metered Dose Inhaler [ProAir] [facility] ([facility]) Metformin hydrochloride 500 MG Oral Tablet metFORMIN H Cl 500 MG Oral Tablet metFORMIN HCl 500 MG Oral Tablet 04/22/2020 12:00:00 AM EST aborted metformin hydrochloride 500 MG Oral Tablet [place] ([facility]) atorvastatin 20 MG Oral Tablet Atorvastatin Calcium 20 MG Oral Tablet Atorvastatin Calcium 20 MG Oral Tablet 04/22/2020 12:00:00 AM EST 1 aborted atorvastatin 20 MG Oral Tablet [facility]) Lisinopril 5 MG Oral Tablet Lisinopril 5 MG Oral Tablet 09/2019 12:00:00 AM EST 1 aborted lisinopril 5 MG Oral Tablet [place] ([facility]) Dextromethorphan Hydrobromide 2 MG/ML / Guaifenesin 20 MG/ML Oral Solution Dextromethorphan-Guaifenesin Dextromethorphan-Guaifenesin 04/12/2020 10:03:10 AM EDT 10 ML active [facility] Albuterol 0.833 MG/ML / Ipratropium Brom delmer 0.167 MG/ML Inhalant Solution Ipratropium-Albuterol Ipratropium-Albuterol 04/12/2020 10:02:36 AM EDT 3 ML active [facility] Prednisone 20 MG Oral Tablet Prednisone 04/12/2020 10:01:33 AM EDT 40 MG active [facility] Azithromycin 500 MG Oral Tablet Azithromycin 04/12/2020 10:00:43 AM EDT 500 MG active [facility] atorvastatin 20 MG Oral Tablet Atorvastatin Atorvastatin 04/11/2020 09:16:15 PM EDT 20 MG active [facility] Cyphovjjccjy-Juhsjlfi-Puvjdf (Centrum Silver) Tablet 04/11/2020 09:16:15 PM EDT 1 TAB active [facility] atorvastatin 20 MG Oral Tablet Atorvastatin Atorvastatin 04/11/2020 09:16:15 PM EDT 20 MG active [facility] Metformin hydrochloride 500 MG Oral [...] PUFFS activ e [facility] Albuterol Sulfate (Proair Hfa) 90 mcg/actuation HFA aerosol inhaler 04/11/2020 09:16:15 PM EDT 2 PUFFS active [facility] Szvehtdlhtlq-Shhockxu-Iludpz 04/11/2020 09:16:15 PM EDT 1 T AB [...] fumarate 0.0045 MG/ACTUAT Metered Dose Inhaler [Symbicort] [place] ([facility]) Lisinopril 5 MG Oral Tablet Lisinopril 5 MG Oral Tablet 08/2019 12:00:00 AM EDT 1 aborted lisinopril 5 MG Oral Tablet [facility]) 200 ACTUAT Albuterol 0.09 MG/ACTUAT Mete red Dose Inhaler [ProAir] ProAir HFA 108 (90 Base) MCG/ACT Inhalation Aerosol Solution ProAir HFA 108 (90 Base) MCG/ACT Inhalation Aerosol Solution 10/24/2019 12:00:00 AM EDT 18 aborted [id number] 200 ACTUAT albuterol 0.09 MG/ACTUAT Metered Dose Inhaler [ProAir] [facility]) Lisinopril 5 MG Oral Tablet Lisinopril 5 MG Oral Tablet 08/2019 12:00:00 AM EST 1 aborted lisinopril 5 MG Oral Tablet [place] ([facility]) Triamcinolone Acetonide 1 MG/ML Topical Lotion Triamcinolone Acetonide 0.1% External Lotion Triamcinolone Acetonide 0.1% External Lotion 0 12:00:00 AM EST aborted triamcinolone a cetonide 1 MG/ML Topical Lotion [facility]) 200 ACTUAT Albuterol 0.09 MG/ACTUAT Mete red Dose Inhaler [ProAir] ProAir HFA 108 (90 Base) MCG/ACT Inhalation Aerosol Solution ProAir HFA 108 (90 Base) MCG/ACT Inhalation Aerosol Solution 08/20/2019 12:00:00 AM EST 18 aborted [id number] 200 ACTUAT albuterol 0.09 MG/ACTUAT Metered Dose Inhaler [ProAir] [facility]) 5000 MG Testosterone 0.01 MG/MG Topical Gel [Androgel] AndroGel 50 MG/5GM (1%) Transdermal AndroGel 50 MG/5GM (1%) Transdermal 08/20/2019 12:00:00 AM EST aborted 5000 MG testosterone 0.01 MG/MG Topical Gel [Androgel] [place] ([facility]) IGlucose Test Strips In Vitro IGlucose Test Strips In Vitro 08/20/2019 12:00:00 AM EST ab[facility] atorvastatin 20 MG Oral Tablet Atorvastatin Calcium 20 MG Oral Tablet Atorvastatin Calcium 20 MG Oral Tablet 08/20/2019 12:00:00 AM EST 1 aborted atorvastatin 20 MG Oral Tablet [facility]) 60 ACTUAT Budesonide 0.16 MG/ACTUAT / fo rmoterol fumarate 0.0045 MG/ACTUAT Metered Dose Inhaler [Symbicort] Symbicort 160-4.5 MCG/ACT Inhalation Aerosol Symbicort 160-4.5 MCG/ACT Inhalation Aerosol 08/20/2019 12:00:00 AM EST aborted 60 ACTUAT budeso nide 0.16 MG/ACTUAT / formoterol fumarate 0.0045 MG/ACTUAT Metered Dose Inhaler [Symbicort] [place] ([facility]) Lancets Ultra Fine Miscellaneous Lancets Ultra Fine Miscella neous 08/20/2019 12:00:00 AM EST aborted Lancets Ultra Fine [place] ([facility]) Metformin hydrochloride 500 MG Oral Tablet metFORMIN H Cl 500 MG Oral Tablet metFORMIN HCl 500 MG Oral Tablet 08/20/2019 12:00:00 AM EST aborted metformin hydrochloride 500 MG Oral Tablet [place] ([facility]) Lancets Ultra Fine Miscellaneous Lancets Ultra Fine Miscella neous 06/25/2019 12:00:00 AM EST aborted Lancets Ultra Fine [place] ([facility]) IGlucose Test Strips In Vitro IGlucose Test Strips In Vitro 06/25/2019 12:00:00 AM EST ab[facility] Metformin hydrochloride 500 MG Oral Tablet metFORMIN H Cl 500 MG Oral Tablet metFORMIN HCl 500 MG Oral Tablet 06/25/2019 12:00:00 AM EST aborted metformin hydrochloride 500 MG Oral Tablet [place] ([facility]) atorvastatin 20 MG Oral Tablet Atorvastatin Calcium 20 MG Oral Tablet Atorvastatin Calcium 20 MG Oral Tablet 06/25/2019 12:00:00 AM EST 1 aborted atorvastatin 20 MG Oral Tablet [facility]) 60 ACTUAT Budesonide 0.16 MG/ACTUAT / fo rmoterol fumarate 0.0045 MG/ACTUAT Metered Dose Inhaler [Symbicort] Symbicort 160-4.5 MCG/ACT Inhalation Aerosol Symbicort 160-4.5 MCG/ACT Inhalation Aerosol 06/25/2019 12:00:00 AM EST aborted 60 ACTUAT budeso nide 0.16 MG/ACTUAT / formoterol fumarate 0.0045 MG/ACTUAT Metered Dose Inhaler [Symbicort] [place] ([facility]) Metformin hydrochloride 500 MG Oral Tablet metFORMIN H Cl 500 MG Oral Tablet metFORMIN HCl 500 MG Oral Tablet 05/30/2019 12:00:00 AM EST aborted metformin hydrochloride 500 MG Oral Tablet [place] ([facility]) 200 ACTUAT Albuterol 0.09 MG/ACTUAT Mete red Dose Inhaler [ProAir] ProAir HFA 108 (90 Base)MCG/ACT Inhalation Aerosol Solution ProAir HFA 108 (90 Base)MCG/ACT Inhalation Aerosol Solution 01/24/2019 12:00:00 AM EDT 18 aborted [id number] 200 ACTUAT albuterol 0.09 MG/ACTUAT Metered Dose Inhaler [ProAir] [place] ([facility]) IGlucose Test Strips In Vitro IGlucose Test Strips In Vitro 01/24/2019 12:00:00 AM EDT aborted IGlucose Test St rips [place] ([facility]) Triamcinolone Acetonide 1 MG/ML Topical Lotion Triamcinolone Acetonide 0.1% External Lotion Triamcinolone Acetonide 0.1% External Lotion 12:00:00 AM EDT aborted triamcinolone a cetonide 1 MG/ML Topical Lotion [place] ([facility]) Lancets Ultra Fine Miscellaneous Lancets Ultra Fine Miscella neous 01/24/2019 12:00:00 AM EDT aborted Lancets Ultra Fine [facility] ([facility]) 30 ACTUAT fluticasone furoate 0.1 MG/ACT UAT / vilanterol 0.025 MG/ACTUAT Dry Powder Inhaler [Breo] Breo Ellipta 100-25MCG/INH Inhalation Aerosol Powder Breath Activated Breo Ellipta 100-25MCG/INH Inhalation Ae rosol Powder Breath Activated 01/24/2019 12:00:00 AM EDT aborted 30 ACTUAT fluticasone furoate 0.1 MG/ACTUAT / vilanterol 0.025 MG/ACTUAT Dry Powder Inhaler [Breo] [facility] ([facility]) atorvastatin 20 MG Oral Tablet Atorvastatin Calcium 20 MG Oral Tablet Atorvastatin Calcium 20MG Oral Tablet 01/24/2019 12:00:00 AM EDT 1 aborted atorvastatin 20 MG Oral Tablet [facility] pantoprazole 40 MG Delayed Release Oral Tablet pantoprazole (PROTONIX) 40 MG tablet pantoprazole (PROTONIX) 40 MG tablet 04/16/2016 12:00:00 AM EDT aborted [facility] atorvastatin 40 MG Oral Tablet atorvastatin (LIPITOR) 40 MG tablet atorvastatin (LIPITOR) 40 MG tablet 10/10/2014 12:00:00 AM EDT aborted [facility] 200 ACTUAT Levalbuterol 0.045 MG/ACTUAT Metered Dose Inhaler [Xopenex] XOPENEX HFA 45 MCG/ACT inhaler XOPENEX HFA 45 MCG/ACT inhaler 04/23/2014 12:00:00 AM EST aborted [facility] ALBUTEROL IN aborted prn [facility] Nitroglycerin 0.4 MG Sublingual Tablet n itroglycerin (NITROSTAT) 0.4 MG SL tablet nitroglycerin (NITROSTAT) 0.4 MG SL tablet aborted sl prn cp-take up to 3 tabs 5 minutes apart to resolve cp [facility] DAILY DIONNE (THERAGRAN) per tablet 50020-144-67 Oral aborted Take by mouth [facility] Cholecalciferol 2000 UNT Oral Capsule Ch olecalciferol (VITAMIN D3) 2000 UNITS capsule Cholecalciferol (VITAMIN D3) 2000 UNITS capsule Oral aborted Take by mouth [facility] 24 HR metoprolol succinate 25 MG Extende d Release Oral Tablet metoprolol (TOPROL-XL) 25 MG 24 hr tablet metoprolol (TOPROL-XL) 25 MG 24 hr tablet 25 mg Oral aborted Take 25 mg by mouth [facility] Aspirin 325 MG Oral Tablet aspirin 325 MG tablet aspirin 325 MG tab let 81 mg Oral aborted Take 81 mg by mouth [facility] Insurance Providers Payer name Policy type / Coverage type Policy ID Covered alliance party ID Covered alliance party's relationship to nino Policy Nino Plan Information CELESTINO [id number] SP [id number] 500 CELESTINO [id number] SP [id number] CELESTINO EXCHANGE U [id number] Self [id number] [facility] [id number] Empl [id number] CELESTINO CARE [place] O [id number] O [id number] CELESTINO MEDICAID [id number] Emperatriz [id number] CELESTINO MEDICAID [id number] [facility] [place] Other 0 Self 0 [facility] [place] Other 0 Self 0 CELESTINO CARE OF [place] -OP [id number] [facility] [place] Other 0 Self 0 [facility] [employer] [place] Other 0 Self 0 Cel[place] Care [place] Other 0 Self 0 [place] [facility] [place] Other 0 Self 0 [place] [facility] [place] Other 0 Self 0 [facility] [facility] [place] Other 0 Self 0 [facility] [facility] [place] Other 0 Self 0 [place] [id number] [place] [facility] [place] Other 0 Self 0 [place] [facility] [place] Other 0 Self 0 [place] [facility] [place] Other 0 Self 0 [place] [facility] [place] Other 0 Self 0 [place] [facility] [place] Other 0 Self 0 [place] Other 0 Self 0 [facility] [facility] [place] Other 0 Self 0 POMCO U [id number] Self [id number] [facility] INS [facility] [id number] Empl [id number] STATE INS FUND W [id number] Empl [id number] [place] Insurance Fund Workers Compensation [id number] Self [id number] Grimsley Commercial [id number] Self [id number] Gr[place] Commercial Self [place] State Insurance Fund Workers Compensation Self CELESTINO MEDICAID [id number] Emperatriz 7 [id number] MEDICAID [id number] Emperatriz [id number] POMCO [id number] Emperatriz [id number] [place] Commercial Self STATE INS FUND W [id number] Empl [id number] [place]OM[place] O [id number] S [id number] STATE INSURANCE FUND O [id number] S [id number] STATE INSURANCE FUND O [id number] S [id number] [place] [employer] [id number] SP [id number] POMCO [id number] SP [id number] Problems, Conditions, and Diagnoses Code Display Name Description Problem Type Effective Dates Data Source(s) 49220726 Type 1 diabetes mellitus Type 1 diabetes mellitus Prob rose 06/21/2020 12:00:00 AM EST DAL[facility] ([facility], ) R06.02 Shortness of breath Shortness of breath 98685014 1 07/29/2019 12:00:00 AM EST [facility] R91.8 Mass of upper lobe of right lung Mass of upper l obe of right lung [id number] 05/28/2020 12:00:00 AM EST [facility] J90 Pleural effusion, not elsewhere classifi ed Pleural effusion, not elsewhere classified Diagnosis 06/11/2020 09:36:00 AM EST [facility] C79.9 Secondary malignant neoplasm of unspecif ied site Secondary malignant neoplasm of unspecified site Diagnosis 06/08/2020 08:48:00 AM EST [facility] I48.0 Paroxysmal atrial fibrillation Paroxysmal atrial fibri llation Diagnosis 05/28/2020 08:55:00 AM EST [facility] R06.02 Shortness of breath Shortness of breath Diagnosis 1 07/29/2019 08:55:00 AM EST [facility] R91.8 Other nonspecific abnormal finding of maira ng field Other nonspecific abnormal finding of maira Diagnosis 05/28/2020 08:55:00 AM EST [facility] R07.9 Chest pain, unspecified Chest pain, unspecified Diagno sis 05/28/2020 08:55:00 AM [facility] R079 Chest pain, unspecified Chest pain, unspecified Diagno sis 05/07/2020 09:30:00 AM [facility] I10 Essential (primary) hypertension Essential (primary) h ypertension Diagnosis 04/30/2020 08:24:00 AM [facility] E782 Mixed hyperlipidemia Mixed hyperlipidemia Diagnosis 04/30/2020 08:24:00 AM [facility] R5383 Other fatigue Other fatigue Diagnosis 04/30/2020 08:24:00 AM [facility] Z125 Encounter for screening for malignant ne oplasm of prostate Encounter for screening for malignant neoplasm of prostate Diagnosis 0 07:43:00 AM [facility] E291 Testicular hypofunction Testicular hypofunction Diagno sis 08/12/2019 07:43:00 AM [facility] E8352 Hypercalcemia Hypercalcemia Diagnosis 08/12/2019 07:43:00 AM [facility] M55153 Personal history of nicotine dependence Personal history of nicotine dependence Diagnosis 07/07/2019 01:18:00 PM [facility] 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 [facility] (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) use of oral hypoglycemic drugs Diagnosis 07/07/2019 01:18:00 PM [facility] Z7982 [facility] (current) use of aspirin [facility] (cu rrent) use of aspirin Diagnosis 07/07/2019 01:18:00 PM [facility] J449 Chronic obstructive pulmonary disease, u nspecified Chronic obstructive pulmonary disease, unspecified Diagnosis 07/07/2019 01:18:00 PM [facility] E119 Type 2 diabetes mellitus without complic ations Type 2 diabetes mellitus without complications Diagnosis 07/07/2019 01:18:00 PM [facility] M7022 Olecranon bursitis, left elbow Olecranon bursitis, lef t elbow Diagnosis 07/07/2019 01:18:00 PM [facility] R2232 Localized swelling, mass and lump, left upper limb Localized swelling, mass and lump, left upper limb Diagnosis 07/07/2019 01:18:00 PM EST [facility] Y9389 Activity, other specified Activity, other specified Di agnosis 07/07/2019 01:18:00 PM [facility] Surgeries/Procedures Procedure Description Date Indications Data Source(s) INSERTION INDWELLING TUNNELED PLEURAL CATHETER 020 12:00:00 AM EST [facility] ([facility], ) DEMO&/EVAL OF PT UTILIZ AERSL GEN/NEB/INHLR/IPPB 06/01 12:00:00 AM EST [facility] ([facility], ) ECG ROUTINE ECG W/LEAST 12 LDS W/I&R POCT AMB EKG Routine 05/28/2020 9:15 AM EST Chest pain, unspecified type 05/28/2020 02:15:00 PM EST [place] pain, unspecified type [facility] Chest pain, unspecified type ELECTROCARDIOGRAM, COMPLETE (EKG) ELECTROCARDIOGRAM, COMPLET E (EKG) 05/07/2020 12:00:00 AM EST [facility] ([facility]) ELECTROCARDIOGRAM, COMPLETE (EKG) ELECTROCARDIOGRAM, COMPLET E (EKG) 05/07/2020 12:00:00 AM [facility] ([facility]) Computed tomography angiography of thorax (procedure) 04/11/2020 08:44:00 PM EDT [facility] Computed tomography angiography of thorax (procedure) 04/11/2020 08:44:[address] [facility] Plain chest X-ray (procedure) 04/11/2020 05:34:00 PM E [facility] CT Head without contrast 04/11/2020 05:34:00 PM [facility] Plain chest X-ray (procedure) 04/11/2020 05:34:00 PM E [facility] CT Head without contrast 04/11/2020 05:34:00 PM [facility] Blood Culture 04/11/2020 12:00:00 AM [facility] SARS-CoV-2 (PCR) Interpretation 04/11/2020 12:00:00 AM [facility] Blood Culture 04/11/2020 12:00:00 AM [facility] SARS-CoV-2 (PCR) Interpretation 04/11/2020 12:00:00 AM EDT [facility] ELECTROCARDIOGRAM, COMPLETE (EKG) ELECTROCARDIOGRAM, COMPLET E (EKG) 08/20/2019 12:00:00 AM [facility]) FECAL BLOOD ASSAY TEST (waived laboratory) FECAL BLOOD ASSAY TEST (waived laboratory) 08/20/2019 12:00:00 AM [facility]) O2 SATURATION> 88% /OLI>55 O2 SATURATION> 88% /OLI>55 2019 12:00:00 AM [facility]) FECAL BLOOD ASSAY TEST FECAL BLOOD ASSAY TEST 08/20/2019 12:00:00 A M [facility]) ELECTROCARDIOGRAM, COMPLETE (EKG) ELECTROCARDIOGRAM, COMPLET E (EKG) 08/20/2019 12:00:00 AM [facility]) O2 SATURATION> 88% /OLI>55 O2 SATURATION> 88% /OLI>55 2019 12:00:00 AM [facility]) Blood culture for bacteria, including anaerobic screen (proc edure) 07/07/2019 12:00:00 AM [facility] l Gram stain microscopy (procedure) 07/07/2019 12:00:00 AM [facility] Aerobic microbial culture (procedure) 07/07/2019 12:00 :00 AM [facility] Blood culture for bacteria, including anaerobic screen (proc edure) 07/07/2019 12:00:00 AM [facility] l Gram stain microscopy (procedure) 07/07/2019 12:00:00 AM [facility] Aerobic microbial culture (procedure) 07/07/2019 12:00 :00 AM [facility] HbA1c (Glycosolated) (waived laboratory) HbA1c (Glycos olated) (waived laboratory) 06/25/2019 12:00:00 AM [facility] ([facility]) CAPILLARY BLOOD DRAW CAPILLARY BLOOD DRAW 06/25/2019 12:00:00 AM [facility]) GLUCOSE (waived laboratory) GLUCOSE (waived laboratory) 12/2019 [facility] O2 SATURATION> 88% /OLI>55 O2 SATURATION> 88% /OLI>55 2019 12:00:00 AM EST [facility] ([facility]) Results ID Date Data Source [id number] 07/15/2020 10:32:00 AM EST [facility] Name Value Range Interpretation Code Description Data Shelly rce(s) Supporting Document(s) SARS-CoV-2 (COVID 19) NEGATIVE - SARS-CoV-2 (COVID19) [facility] This lab was ordered by [facility] a nd reported by [facility]. ID Date Data Source [id number] 07/03/2020 09:52:00 AM EST [facility] Name Value Range Interpretation Code Description Data Shelly rce(s) Supporting Document(s) SARS-CoV-2 (COVID 19) NEGATIVE - SARS-CoV-2 (COVID19) [facility] This lab was ordered by [facility] a nd reported by [facility]. ID Date Data Source [id number] 06/22/2020 12:00:[address] [facility] oly Imaging Lizett Cooley MD Patient Name: TOLU [id number] Date of : 1955[place] [address] Date of Exam: [facility]#: Fax: [phone] EXAM: CHEST (2 VIEW) X-RAYCLINICAL [...] rce(s) Supporting Document(s) ID Date Data Source [id number] 06/08/2020 04:28:00 AM EST [facility] Name Value Range Interpretation Code Description Data Shelly rce(s) Supporting Document(s) SARS coronavirus 2 RNA [Presence] in Res piratory specimen by KRISTEN with probe detection [facility] This lab was ordered by [facility] a nd reported by [facility]. ID Date Data Source [id number] 06/26/2020 06:36:00 PM [facility] Anatomic Molecular Pathology ReportName: TOLU RATLIFFMRN: [id number] Number: [id number] Date: 06/08/2020 00:00Received Date: 06/16/2020 09:03Physician(s): BETHANY FELIX MD HAGHIR, SHAHANDEH F,MDCopy To:LIZETT COOLEY,[facility]s) ReceivedA: Pleural fluid, Formalin Block [id number] A2 received from [facility] in [place], [place], ROS1 by FISHDiagnosisTEST:ROS1 gene rearrangements by [...] Miranda M.D. Attending Pathologist 06/26/2020 18:36:59Reported at [address] [place] [address]. Gross DescriptionMETHODOLOGY:Interphase FISH is performed on paraffin embedded NSCLC utilizing thecombined [employer] Molecular LSI ROS1(Eliza) and ROS1(Tel) ROS1 Probes: 1)3'-ROS1(Eliza), 557 kb, labeled with SpectrumGreen, and 2) 5'- ROS1(Tel),317kb, labeled with SpectrumOrange. Tumor cells with no FUM8kjfjnhjkrptshd have 2 yellow signals (fused orange and [...] and its performance characteristics weredetermined by the [facility],and it has been authorized for clinical use by [facility]. The test has not been cleared or approved by the U.S. Food andDrug Administration. The analyte specific reagents used in this assay donot require FDA approval. REFERENCES: 1. SHANTELL Juarez, Daisy AT, Theparadise RIVAS et al. Identifying and Targeting OLB8Hufm Fusions in NonSmall Cell Lung Cancer. Clin Cancer Res 2012; 18(17);41858846.2. Iqbal, Severo AT. Novel Targets in Non-Small Cell Lung Cancer:ROS-1 and RET fusions. The Oncologist. 2013;18:865-875.This report may include one or more immunohistochemical stain results thatuse analyte specific reagents. All positive and negative controls havebeen reviewed by the attending pathologist and are satisfactory. The testswere developed and their performance characteristics determined by [facility] Pathology department. They have not been cleared or approved by the USFood and Drug Administration. The FDA has determine d that such clearanceor approval is not necessary. Name Value Range Interpretation Code Description Data Shelly rce(s) Supporting Document(s) ID Date Data Source [id number] 06/25/2020 12:10:00 PM [facility] Anatomic Molecular Pathology ReportName: TOLU RATLIFFMRN: [id number] Number: [id number] Date: 06/08/2020 00:00Received Date: 06/16/2020 09:06Physician(s): BETHANY FELIX MD HAGHIR, SHAHANDEH F,MDCopy To:LIZETT COOLEY,[facility]imen(s) ReceivedA: Pleural fluid, Formalin Block [id number] A2 received from [facility] in [place], [place] BRAF Mutation AnalysisDiagnosisTESTS:BRAF V600E mutation (1799 [...] Miranda M.D. Attending Pathologist 06/25/2020 12:10:33Reported at [address] [place] [id number]. Gross DescriptionMETHODOLOGY:BRAF V600E(1799 T>A) mutation at exon [...] theamounts of PCR products, and analyzed by SPARQCode real timeinstrument. The analytical sensitivity (or minimum percentage of mutantDNA needed) is approximately 10% given sufficient DNA input. Test development and its performance characteristics were determined bythe [facility], and has beenauthorized for clinical use by [facility]. Thetest has not been cleared or approved by the U.S. Food and DrugAdministration. The analyte specific reagents used in this assay do notrequire FDA approval. REFERENCES: 1. Dolores S, Deandre Cortés, et al. Detection of BRAF X412Bbskktwtq in colorectal cancer-comparison of automatic sequencing and realtime chemistry methodology. J Mol Diagn. 2006; 8:562517.2. Raul L, Chica TJ, Nayeli N, et al. BRAF mutation analysis in fineneedle aspiration (FNA) cytology of the thyroid. Diagn Mol Pa thol.2006;15:049130.3. Brenda PK, [place], Lelo M, et al. Clinical characteristics ofpatients with lung adenocarcinomas harboring BRAF mutations. J Clin Oncol.2011;29:0014-1112.This report may include one or more immunohistochemical stain results thatuse analyte specific reagents. All positive and negative controls havebeen reviewed by the attending pathologist and are satisfactory. The testswere developed and their performance characteristics determined by [facility] Pathology department. They have not been cleared or approved by the USFood and Drug Administration. The FDA has determined that such clearanceor approval is not necessary. Name Value Range Interpretation Code Description Data Shelly rce(s) Supporting Document(s) ID Date Data Source [id number] 06/25/2020 09:32:00 [facility] Anatomic Molecular Pathology ReportName: TOLU RATLIFFNICK: [id number] Number: [id number] Date: 06/08/2020 00:00Received Date: 06/16/2020 09:04Physician(s): BETHANY FELIX MD HAGHIR, SHAHANDEH F,[facility] To:LIZETT COOLEYAMSTER[facility]pecimen(s) ReceivedA: Pleural fluid, Formalin Block [id number] A2 received from [facility] in [place], [place] EGFRDiagnosisTEST: EGFR gene mutations (exon 19 [...] indicated. Presence of exon 19 deletions, exon 07P089B or L861Q, exon 18 G719A or exon [...] Miranda M.D. Attending Pathologist 06/25/2020 09:32:10Reported at [address] [place] [id number]. Gross DescriptionMETHODOLOGY:The therascreen EGFR RGQ PCR Kit ([employer], [place], [place]) is a real-timequalitative PCR assay used on the datango instrument for thedetection of seven types of [...] factor receptormutations in lung cancer. Nature Review/Cancer. 2007;6965-9626.This report may include one or more immunohistochemical stain results thatuse analyte specific reagents. All positive and negative controls havebeen reviewed by the attending pathologist and are satisfactory. The testswere developed and their performance characteristics determined by [facility] Pathology department. They have not been cleared or approved by the USFood and Drug Administration. The FDA has determined that such clearanceor approval is not necessary. Name Value Range Interpretation Code Description Data Shelly rce(s) Supporting Document(s) ID Date Data Source [id number] 06/25/2020 09:18:00 AM [facility] Anatomic Molecular Pathology ReportName: TOLU RATLIFFMRN: [id number] Number: [id number] Date: 06/08/2020 00:00Received Date: 06/16/2020 09:05Physician(s): BETHANY FELIX MD HAGHIR, SHAHANDEH F,[facility] To:LIZETT COOLEY,[facility]imen[facility]s) ReceivedA: Pleural fluid, Formalin Block [id number] A2 received from [facility] in [place], [place] KRAS Mutation AnalysisDiagnosisTEST:KRAS gene mutations by [...] Miranda M.D. Attending Pathologist 06/25/2020 09:18:25Reported at [address] [place] [address]. Gross DescriptionMETHODOLOGY:The therascreen KRAS RGQ PCR Kit is a real-time qualitative PCR assay usedon the [employer] instrument for the detection of seven somaticmutations [...] Morejon, Terri JM, Somepeter MR, et al. [place] Societyof Clinical Oncology provisional clinical opinion: testing for KRAS genemutations in patients with metastatic colorectal carcinoma to predictresponse to anti-epidermal growth factor receptor monoclonal antibodytherapy. J Clin Oncol 27:3944-2759, 2009. 2. Magdalena S , Peg Javed , GALINA Mace, et al.Biomarkers predicting clinical outcome of epidermal growth factor receptortargeted therapy in metastatic colorectal cancer. J Natl Cancer Szjm788:41072741, 2009.This report may include one or more immunohistochemical stain results thatuse analyte specific reagents. All positive and negative controls havebeen reviewed by the attending pathologist and are satisfactory. The testswere developed and their performance characteristics determined by [facility] Pathology department. They have not been cleared or approved by the USFood and Drug Administration. The FDA has determined that such clearanceor approval is not necessary. Name Value Range Interpretation Code Description Data Shelly rce(s) Supporting Document(s) ID Date Data Source [id number] 06/25/2020 09:10:00 AM [facility] Anatomic Molecular Pathology ReportName: TOLU RATLIFFMRN: [id number] Number: [id number] Date: 06/08/2020 00:00Received Date: 06/16/2020 09:01Physician(s): BETHANY FELIX MD HAGHIR, SHAHANDEH F,MDCopy To:LIZETT COOLEY,[facility]imen[facility]s) ReceivedA: Pleural fluid, Formalin Block [id number] A2 received from [facility] in [place], [place], ALK by FISHDiagnosisTEST:ALK gene rearrangements by [...] Miranda M.D. Attending Pathologist 06/25/2020 09:10:47Reported at [address] [place] [id number]. Gross DescriptionMETHODOLOGY:Interphase FISH is performed on paraffin embedded NSCLC utilizing the[employer] Molecular ALK Break Apart FISH Probe Kit. [...] the special procedure laboratory of Department of Pathology,[facility]. This report may include one or more immunohistochemical stain results thatuse analyte specific reagents. All positive and negative controls havebeen reviewed by the attending pathologist and are satisfactory. The testswere developed and their performance characte ristics determined by [facility] Pathology department. They have not been cleared or approved by the USFood and Drug Administration. The FDA has determined that such clearanceor approval is not necessary. Name Value Range Interpretation Code Description Data Shelly rce(s) Supporting Document(s) ID Date Data Source [id number] 05/07/2020 09:36:00 AM [facility] ([facility]) Name Value Range Interpretation Code Description Data Shelly rce(s) Supporting Document(s) Reported Physicians See Note Reported Physici karoline JOHNSON ([facility]) Note: Reported Physicians:Ordering: Esha De La Garza AAttending: ESHA TALAMANTESConsulting: Alex TALAMANTES To: Esha Talamantes ID Date Data Source [id number] 05/07/2020 09:36:00 AM [facility] ([facility]) Name Value Range Interpretation Code Description Data Shelly rce(s) Supporting Document(s) Procalcitonin [Mass/volume] in Serum or Plasma by Immunoassay 0.04 ng/mL Procalcitonin [facility] ([facility]) Note: A procalcitonin (PCT) level above 2.0 [...] obtained.Responsible Observer: (rfl) ID Date Data Source [id number] 05/07/2020 09:36:00 AM [facility] ([facility]) Name Value Range Interpretation Code Description Data Shelly rce(s) Supporting Document(s) Reported Physicians See Note Reported [facility] ([facility]) Note: Reported Physicians:Ordering: Beard e, Esha AAttending: VINITA, JOCELYNConsulting: VINITA, JOCELYNCopy To: Vinita, Esha ID Date Data Source [id number] 05/07/2020 09:36:00 AM [facility] ([facility]) Name Value Range Interpretation Code Description Data Shelly rce(s) Supporting Document(s) SED RATE 18 mm/hr SED RATE [facility] ([facility]) Note: Responsible Observer: (CM) SED RATE REENTER 18 SED RATE REENTER [facility] ([facility]) Note: Responsible Observer: (CM) ID Date Data Source [id number] 05/07/2020 09:36:00 AM [facility] ([facility]) Name Value Range Interpretation Code Description Data Shelly rce(s) Supporting Document(s) Reported Physicians See Note Reported [facility] ([facility]) Note: Reported Physicians:Ordering: Beard e, Esha AAttending: VINITA, JOCELYNConsulting: VINITA, JOCELYNCopy To: Vinita, Esha ID Date Data Source [id number] 05/07/2020 09:36:00 AM EST [facility] ([facility]) Name Value Range Interpretation Code Description Data Shelly rce(s) Supporting Document(s) CRP-HS 8.40 MG/L Above high normal CRP-HS [facility] Ninfa ([facility]) Note: [facility]/S HS-CRP CUT-OFF : RELATIVE RISK: <1.0 mg/L Low 1.0 - 3.0 mg/L Average >3.0 mg/L High Optimally, the average of HS-CRP results repeated two weeks apart should be used for risk assessment.Responsible Observer: () ID Date Data Source [id number] 05/07/2020 09:36:00 AM EST [facility] ([facility]) Name Value Range Interpretation Code Description Data Shelly rce(s) Supporting Document(s) Reported Physicians See Note Reported [facility] ([facility]) Note: Reported Physicians:Ordering: Beard e, Esha AAttending: VINITA, JOCELYNConsulting: VINITA, JOCELYNCopy To: Vinita, Esha ID Date Data Source [id number] 05/07/2020 09:36:00 AM EST [facility] ([facility]) Name Value Range Interpretation Code Description Data Shelly rce(s) Supporting Document(s) BNP 211 PG/ML Above high normal BNP [facility] ([facility]) Note: Responsible Observer: () ID Date Data Source [id number] 05/07/2020 09:36:00 AM EST [facility] ([facility]) Name Value Range Interpretation Code Description Data Shelly rce(s) Supporting Document(s) Reported Physicians See Note [facility] Note: Reported Physicians:Ordering: Beard e, Esha AAttending: VINITA, JOCELYNConsulting: VINITA, JOCELYNCopy To: Vinita, Esha ID Date Data Source [id number] 05/07/2020 09:36:00 AM EST [facility] ([facility]) Name Value Range Interpretation Code Description Data Shelly rce(s) Supporting Document(s) TROPONIN T <0.01 NG/ML TROPONIN T [facility] ([facility]) Note: TROPONIN T0.1 ng/ml Recommended as the clinical threshold value forTroponin T.Responsible Observer: () ID Date Data Source [id number] 05/07/2020 09:36:00 AM EST [facility] ([facility]) Name Value Range Interpretation Code Description Data Shelly rce(s) Supporting Document(s) Reported Physicians See Note Reported Physici ans [facility] ([facility]) Note: Reported Physicians:Ordering: Beard e, Esha AAttending: VINITA, JOCELYNConsulting: VINITA, JOCELYNCopy To: Vinita Esha ID Date Data Source [id number] 05/07/2020 09:36:00 AM EST [facility] ([facility]) Name Value Range Interpretation Code Description Data Shelly rce(s) Supporting Document(s) #BASO 0.05 10\\^3/uL #BASO [facility] ([facility]) Note: Responsible Observer: () #EOS 0.38 10\\^3/uL #EOS EL[facility]ABETH ([facility]) Note: Responsible Observer: () #IG 0.03 10\\^3/uL #IG ELIZABETH ([facility]) Note: Responsible Observer: () #LYMPH 1.37 10\\^3/uL #LYMPH ELIZABETH ([facility]) Note: Responsible Observer: () #MONO 0.85 10\\^3/uL #MONO ELIZABETH ([facility]) Note: Responsible Observer: () #NEUT 6.85 10\\^3/uL #NEUT ELIZABETH ([facility]) Note: Responsible Observer: () #NRBC 0.00 10\\^3/uL #NRBC ELIZABETH ([facility]) Note: Responsible Observer: () %EOS 5 % %EOS ELIZABETH ([facility]) Note: Responsible Observer: (CLD) %IG 0.3 % Above high normal %IG ELIZABETH ([facility]) Note: Responsible Observer: () %LYMPH 13 % Below low normal %LYMPH ELIZABETH ([facility]) Note: Responsible Observer: (CLD) %MONO 7 % %MONO ELIZABETH ([facility]) Note: Responsible Observer: (CLD) %NRBC 0.0 % %NRBC ELIZABETH ([facility]) Note: Responsible Observer: () BAND 0 % BAND ELIZABETH ([facility]) Note: Responsible Observer: (CLD) BASO 0.5 % BASO ELIZABETH ([facility]) Note: Responsible Observer: () Blasts [#] in Body fluid by Manual count 0 % BLASTS ELIZABETH ([facility]) Note: Responsible Observer: (CLD) CBC W/MANUAL DIFF See Note CBC W/MANUAL DIFF ELIZABETH ([facility]) Note: CO RRECTED REPORT COMPLETE BLOOD COUNTResponsible Observer: (CLD) EOS 4.0 % EOS ELIZABETH ([facility]) Note: Responsible Observer: () Hematocrit [Pure volume fraction] of Blood by Automated count 41.4 % HEMATOCRIT ELIZABETH ([facility]) Note: Responsible Observer: () Hemoglobin [Mass/volume] in Mixed venous blood by Oximetry 14.0 g/d L HEMOGLOBIN ELIZABETH ([facility]) Note: Responsible Observer: () LYMPH 14.4 % Below low normal LYMPH ELIZABETH ([facility]) Note: Responsible Observer: () MANUAL DIFF SEE BELOW MANUAL DIFF ELIZABETH ([facility]) Note: Responsible Observer: (CLD) MCH 30.2 pg MCH ELIZABETH ([facility]) Note: Responsible Observer: () MCHC 33.8 g/dL MCHC ELIZABETH ([facility]) Note: Responsible Observer: () MCV 89.2 fL MCV ELIZABETH ([facility]) Note: Responsible Observer: () MONO 8.9 % Above high normal MONO ELIZABETH ([facility]) Note: Responsible Observer: () MPV 8.6 fL MPV ELIZABETH ([facility]) Note: Responsible Observer: () NEUT 71.9 % NEUT [place] ([facility]) Note: Responsible Observer: () Platelets [#/area] in Blood by Microscopy high power field 300 10\\^ 3/uL PLATELETS [place] ([facility]) Note: Responsible Observer: () RBC 4.64 10\\^6/uL RBC [place] ([facility]) Note: Responsible Observer: () RBC MORPH NOT INDICATED RBC MORPH [place] ([facility]) Note: FOLLOWING RE SULTS REPORTED IN ERROR MANUAL DIFF NOTINDICATED <-- *Previously reported in error 05/07/20.0948.MD . . .M{ CORRECTResponsible Observer: () RDW 12.2 % RDW [place] ([facility]) Note: Responsible Observer: () SEGS 75 % SEGS [place] ([facility]) Note: Responsible Observer: (MOISES) WBC 9.5 10\\^3/uL WBC [place] ([facility]) Note: Responsible Observer: () ID Date Data Source [id number] 05/12/2020 06:51:00 AM EST [facility] Name Value Range Interpretation Code Description Data Shelly rce(s) Supporting Document(s) Procalcitonin [Mass/volume] in Serum or Plasma 0.04 ng/mL 0.00-0.08 [facility] A procalcitonin (PCT) level above 2.0 [...] ng/mL are obtained. ID Date Data Source [id number] 05/07/2020 10:37:00 AM [facility] Name Value Range Interpretation Code Description Data Shelly rce(s) Supporting Document(s) BNP 211 PG/ML 0 - 125 H [facility] ID Date Data Source [id number] 05/07/2020 10:37:00 AM [facility] Name Value Range Interpretation Code Description Data Shelly rce(s) Supporting Document(s) C reactive protein [Mass/volume] in Serum or Plasma by High sensitivity method 8.40 MG/L 1.00 - 3.00 H [facility] CDC/S HS-CRP CUT-OFF: RELATIVE RISK: <1.0 mg/L Low 1.0 - 3.0 mg/L Average >3.0 mg/L High Optimally, the average of HS-CRP results repeated two weeks apart should be used for risk assessment. ID Date Data Source [id number] 05/07/2020 10:27:00 AM [facility] Value Range Interpretation Code Description Data Shelly rce(s) Supporting Document(s) CBC W/MANUAL DIFF [facility] CORRECTE D REPORT COMPLETE BLOOD COUNT Leukocytes [#/volume] in Blood by Automated count 9.5 10^3/uL 4.2 - 1 1.0 [facility] Erythrocytes [#/volume] in Blood by Automated count 4.64 10^6/uL 4. 50 - 6.30 [facility] Hemoglobin [Mass/volume] in Blood 14.0 g/dL 14.0 - 16.0 [facility] Hematocrit [Volume Fraction] of Blood by Automated count 41.4 % 4 1.0 - 51.0 [facility] Erythrocyte mean corpuscular volume [Entitic volume] by Auto mated count 89.2 fL 80.0 - 94.0 [facility] Erythrocyte mean corpuscular hemoglobin [Entitic mass] by Automated count 30.2 pg 27.0 - 34.0 [facility] Erythrocyte mean corpuscular hemoglobin concentration [Mass/volume] by Automated count 33.8 g/dL 31.0 - 36.0 [facility] Erythrocyte distribution width [Ratio] by Automated count 12.2 % 11.5 - 14.8 [facility] Platelets [#/volume] in Blood by Automated count 300 10^3/uL 150 - 45 0 [facility] Platelet mean volume [Entitic volume] in Blood by Automated count 8.6 fL 7.4 - 10.4 [facility] Neutrophils/100 leukocytes in Blood by Automated count 71.9 % 37. 0 - 80.0 [facility] Lymphocytes/100 leukocytes in Blood by Manual count 14.4 % 25.0 - 40.0 L [facility] Monocytes/100 leukocytes in Blood by Automated count 8.9 % 3.0 - 8.0 H [facility] Eosinophils/100 leukocytes in Blood by Automated count 4.0 % 0.0 - 7.0 [facility] Basophils/100 leukocytes in Blood by Automated count 0.5 % 0.0 - 2.0 [facility] %IG 0.3 % 0.0 - 0.0 H [facility] al %NRBC 0.0 % 0.0 - 0.0 [facility] al Neutrophils [#/volume] in Blood by Automated count 6.85 10^3/uL 2.00 - 6.90 [facility] Lymphocytes [#/volume] in Blood by Automated count 1.37 10^3/uL 0.60 - 3.40 [facility] Monocytes [#/volume] in Blood by Automated count 0.85 10^3/uL 0.00 - 0.90 [facility] Eosinophils [#/volume] in Blood by Automated count 0.38 10^3/uL 0.00 - 0.70 [facility] Basophils [#/volume] in Blood by Automated count 0.05 10^3/uL 0.00 - 0.20 [facility] #IG 0.03 10^3/uL 0.00 - 0.10 [facility] #NRBC 0.00 10^3/uL 0.00 - 0.00 [facility] MANUAL DIFF SEE BELOW [facility] Segmented neutrophils/100 leukocytes in Blood by Manual count 75 % 37 - 80 [facility] BAND 0 % 0 - 5 [facility] %LYMPH 13 % 25 - 40 L [facility] %MONO 7 % 3 - 8 [facility] %EOS 5 % 0 - 7 [facility] Blasts/100 leukocytes in Blood by Manual count 0 % [facility] RBC MORPH NOT INDICATED [facility] FOLLOWING RESULTS REPORTED IN ERROR MANUAL DIFF { CORRECT ID Date Data Source [id number] 05/07/2020 10:26:00 AM [facility] Name Value Range Interpretation Code Description Data Shelly rce(s) Supporting Document(s) TROPONIN T <0.01 NG/ML 0.00 - 0.10 [facility] ospital TROPONIN T0.1 ng/ml Recommended as the c linical threshold value forTroponin T. ID Date Data Source [id number] 05/07/2020 10:06:00 AM [facility] Name Value Range Interpretation Code Description Data Shelly rce(s) Supporting Document(s) Erythrocyte sedimentation rate by Westergren method 18 mm/hr 0 - 20 [facility] SED RATE REENTER 18 [facility] ID Date Data Source [id number] 04/30/2020 08:37:00 AM EST [place] ([facility]) Name Value Range Interpretation Code Description Data Shelly rce(s) Supporting Document(s) Reported Physicians See Note Reported Physici ans [place] ([facility]) Note: Reported Physicians:Ordering: Esha De La Garza AAttending: ESHA TALAMANTESConsulting: JUSTUS TALAMANTESYNCopninfa To: Esha Talamantes ID Date Data Source [id number] 04/30/2020 08:37:00 AM EST [place] ([facility]) Name Value Range Interpretation Code Description Data Shelly rce(s) Supporting Document(s) CPK 59 U/L CPK [place] ([facility]) Note: Responsible Observer: (TAD) ID Date Data Source [id number] 04/30/2020 08:37:00 AM EST [place] ([facility]) Name Value Range Interpretation Code Description Data Shelly rce(s) Supporting Document(s) Reported Physicians See Note Reported Physici ans [place] ([facility]) Note: Reported Physicians:Ordering: Esha De La Garza AAttending: ESHA TALAMANTESConsulting: ESHA TALAMANTESCopninfa To: Esha Talamantes ID Date Data Source [id number] 04/30/2020 08:37:00 AM EST [place] ([facility]) Name Value Range Interpretation Code Description Data Shelly rce(s) Supporting Document(s) Cholesterol [Moles/volume] in Pericardial fluid 162 MG/DL CHOLESTEROL [place] ([facility]) Note: Responsible Observer: (TAD) CVE PANEL See Note CVE PANEL [place] ([facility]) Note: LIPID PANELResponsible Observe r: (TAD) HDL 40 MG/DL HDL [place] ([facility]) Note: Responsible Observer: (TAD) Cholesterol in LDL [Mass/volume] in Serum or Plasma by Direct as say 91 mg/dL LDL [place] ([facility]) Note: Responsible Observer: (TAD) LDL/HDL 2.28 LDL/HDL [place] ([facility]) Note: CVE RISK CHOL/HD L LDL/HDLMEN: 1/2 AVERAGE 3.43 1.00 AVERAGE 4.97 3.55 2X AVERAGE 9.55 6.25 3X AVERAGE 23.99 7.99WOMEN: 1/2 AVERAGE 3.27 1.47 AVERAGE 4.44 3.22 2X AVERAGE 7.05 5.03 3X AVERAGE 11.04 6.14Responsible Observer: (TAD) RISK FACTOR 4.1 RISK FACTOR [place] ([facility]) Note: Responsible Observer: (TAD) TRIGLYCERIDES 198 MG/DL Above high normal [facility]ERIDES [facility] Note: Responsible Observer: (TAD) ID Date Data Source [id number] 04/30/2020 08:37:00 AM EST [place] ([facility]) Name Value Range Interpretation Code Description Data Shelly rce(s) Supporting Document(s) Reported Physicians See Note Reported Physici ans [place] ([facility]) Note: Reported Physicians:Ordering: Beard e, Esha AAttending: VINITA, JOCELYNConsulting: VINITA, JOCELYNCopy To: Vinita, Esha ID Date Data Source [id number] 04/30/2020 08:37:00 AM [facility] ([facility]) Name Value Range Interpretation Code Description Data Shelly rce(s) Supporting Document(s) URIC ACID 5.1 MG/DL URIC ACID [place] ([facility]) Note: Responsible Observer: (TAD) ID Date Data Source [id number] 04/30/2020 08:37:00 AM EST [place] ([facility]) Name Value Range Interpretation Code Description Data Shelly rce(s) Supporting Document(s) Reported Physicians See Note Reported [facility] ([facility]) Note: Reported Physicians:Ordering: Beard e, Esha AAttending: VINITA, JOCELYNConsulting: VINITA, JOCELYNCopy To: Vinita, Esha ID Date Data Source [id number] 04/30/2020 08:37:00 AM EST [place] ([facility]) Name Value Range Interpretation Code Description Data Shelly rce(s) Supporting Document(s) TSH 2.19 uIU/mL TSH [place] ([facility]) Note: Responsible Observer: (TAD) ID Date Data Source [id number] 04/30/2020 09:31:00 AM [facility] Name Value Range Interpretation Code Description Data Shelly rce(s) Supporting Document(s) Thyrotropin [Units/volume] in Serum or Plasma by Detec tion limit <= 0.05 mIU/L 2.19 uIU/mL 0.47 - 5.01 [facility] ID Date Data Source [id number] 04/30/2020 09:27:00 AM EST [facility] Name Value Range Interpretation Code Description Data Shelly rce(s) Supporting Document(s) Urate [Mass/volume] in Serum or Plasma 5.1 MG/DL 2.5 - 8.5 [facility] ID Date Data Source [id number] 04/30/2020 09:27:00 AM EST [facility] Name Value Range Interpretation Code Description Data Shelly rce(s) Supporting Document(s) Creatine kinase [Enzymatic activity/volume] in Serum or Plasma 5 9 U/L 30 - 170 [facility] ID Date Data Source [id number] 04/30/2020 09:27:00 AM [facility] Name Value Range Interpretation Code Description Data Shelly rce(s) Supporting Document(s) CVE PANEL [facility] LIPID PANEL Cholesterol [Mass/volume] in Serum or Plasma 162 MG/DL 131 - 200 [facility] Deprecated Triglyceride [Mass/volume] in Serum or Plasma 198 MG/DL 3 5 - 160 H [facility] HDL 40 MG/DL 29 - 86 [facility] Cholesterol in LDL [Mass/volume] in Serum or Plasma by Direc t assay 91 mg/dL 65 - 175 [facility] Cholesterol.total/Cholesterol in HDL [Mass Ratio] in Serum o r Plasma 4.1 3.4 - 4.9 [facility] LDL/HDL 2.28 1.00 - 3.55 [facility] CVE RISK CHOL/HDL LDL/HDLMEN: 1/2 AVERAGE 3.43 1.00 AVERAGE 4.97 3.55 2X AVERAGE 9.55 6.25 3X AVERAGE 23.99 7.99WOMEN: 1/2 AVERAGE 3.27 1.47 AVERAGE 4.44 3.22 2X AVERAGE 7.05 5.03 3X AVERAGE 11.04 6.14 ID Date Data Source [id number] 04/12/2020 09:42:00 AM EDT [facility] Name: TOLU RATLIFF : 1955 Age: 64 MR#: [id number] Admit Date: 04/11/20 Provider: Honorio De Souza [...] % (Auto) 68.7, Lymph % (Auto) 20.9, [place] % (Auto) 8.4, Eos % (Auto) 1.2, [...] earance Clear, Urine pH 5.0, Ur Specific [place] 1.010,Urine Protein Negative, Urine Ketones Negative, Urine [...] 94.0 H, Lymph % (Auto) 4.2 L, [place] % (Auto) 1.2 L, Eos % (Auto) [...] was instructed to f/u with PMD for plastic duplicator referral. Pt was clinically and vitally stable [...] metformin 500 mg PO DAILY 04/11/20 [History] brwqzjucezmd-hadeqpuz-wixffl 1 tab PO DAILY 04/11/20 [History] azithromycin [...] PRN (Reason: Shortness Of Breath) RF: 0 [id number] Tablet 1 tab PO DAILY RF: 0 [...] rce(s) Supporting Document(s) ID Date Data Source [id number] 04/12/2020 07:40:00 AM EDT [facility] [...] by Automated count 91.5 fL 80-96 [facility] ital Erythrocyte mean corpuscular hemoglobin [Entitic mass] by Automated count 30.3 pg 27-31 [facility] Erythrocyte mean corpuscular hemoglobin concentration [Mass/volume] in Cord blood 33.1 g/dL 33-37 [facility] ital Erythrocyte distribution width [Entitic volume] by [...] Center NUCLEATED RED BLOOD CELL# 0 U [facility] Immature granulocytes [Presence] in Blood by Automated count 0-2 N [facility] Immature granulocytes [#/volume] in Blood by Automated count 0.1 U 0-0.1 N [facility] Manual Differential panel - Blood Manual Diff Added [facility] ID Date Data Source [id number] 04/12/2020 07:53:00 AM EDT [facility] @04/12/20 07: MANUAL DIFF added. [...] Serum or Plasma 4.6 mmol/L 3.5-5.5 N [facility] Chloride [Moles/volume] in Serum or Plasma 105 mmol/L 99-109 N [facility] Carbon dioxide, total [Moles/volume] in Serum or Plasma 25 mmol/L 20 -31 N [facility] Anion gap in Serum or Plasma 13 mmol/L 8-16 [facility] Glucose [Mass/volume] in Serum or Plasma 212 mg/dL 74-106 Above high normal [facility] Creatinine 1.1 mg/dL 0.5-1.1 Health system Glomerular filtration rate/1.73 sq M.pre dicted [Volume Rate/Area] in Serum or Plasma Greater Than 60 ABOVE 60 [facility] Alanine aminotransferase [Enzymatic acti vity/volume] in Serum or Plasma by With P-5'-P 30 U/L 10-49 [facility] ital Aspartate aminotransferase [Enzymatic ac tivity/volume] in Serum or Plasma by With P-5'-P 11 U/L 0-33 [facility] pital Alkaline phosphatase [Enzymatic activity/volume] in Serum or Plasma 58 U/L 45-129 N [facility] Calcium [Mass/volume] in Serum or Plasma 9.2 mg/dL 8.5-10.1 [facility] Bilirubin.total [Mass/volume] in Serum or Plasma 0.5 mg/dL 0.3-1.2 [facility] Albumin [Mass/volume] in Serum or Plasma by Bromocresol purple (BCP) dye binding method 3.4 g/dL 3.2-4.8 [facility] ital Protein [Mass/volume] in Serum or Plasma 7.1 g/dL 5.7-8.2 [facility] ID Date Data Source [id number] 04/12/2020 07:40:00 AM EDT [facility] ID Date Data Source [id number] 04/12/2020 07:53:00 AM EDT [facility] [...] defined the cutoff (definition for diagnosis of OK)for this method as 0.78 ng/ml. ID Date Data Source [id number] 04/12/2020 06:40:00 AM [facility] ([facility]) Name Value Range Interpretation Code Description Data Shelly rce(s) Supporting Document(s) Reported Physicians See Note Reported Terii karoline JOHNSON ([facility]) Note: Reported Physicians:Ordering: Pradeep Ferraraending: John De Souzaitting: Jeremiah, VikramCopy To: Jeremiah VikramCopy To: Esha Talamantes ID Date Data Source [id number] 04/12/2020 06:40:00 AM [facility] ELIZABETH ([facility]) Name Value Range Interpretation Code Description Data Shelly rce(s) Supporting Document(s) Troponin I.cardiac [Mass/volume] in Serum or Plasma Less Than 0.015 Normal Troponin I [facility] ([facility]) Note: Less than 0.09 NG/ML Negative 0.10 - 0.77 NG/ML High Risk0.78 NG/ML or Greater PositiveThe WHO defined the cutoff (definition for diagnosis of OK)for this method as 0.78 ng/ml.Responsible Observer: Troponin I Troponin I 600.1101 (G) ID Date Data Source [id number] 04/12/2020 06:40:00 AM EDT ELIZABETH ([facility]) Name Value Range Interpretation Code Description Data Shelly rce(s) Supporting Document(s) MANUAL DIFF See Note MANUAL DIFF [place] ([facility]) Note: NOTES OTHER/NOT INTERPRETED Cells counted 100 Lymphocytes # Bld Manual 3 %Morphology Bld-Imp APPEARS NORMAL Neutrophils # Bld Manual 97 %Platelet # Bld Est APPEARS NORMAL @Are you sure? Please be sure this value is correct YES@04/12/20 0729: MANUAL DIFF added. RFLXG = DIFF.Responsible Observer: TOTAL CELLS TOTAL CELLS COUNTED 100.2105 (A) ID Date Data Source [id number] 04/12/2020 06:40:00 AM EDT ELIZABETH ([facility]) Name Value Range Interpretation Code Description Data Shelly rce(s) Supporting Document(s) Reported Physicians See Note Reported Physici ans [place] ([facility]) Note: Reported Physicians:Ordering: Pradeep Ferraraending: John De Souzaitting: Pete De Souza To: Ancelmo De SouzaamCopninfa To: Esha Talamantes ID Date Data Source [id number] 04/12/2020 06:40:00 AM EDT [facility]IZ[place]ETH ([facility]) Name Value Range Interpretation Code Description Data Shelly rce(s) Supporting Document(s) Alanine aminotransferase [Enzymatic acti vity/volume] in Serum or Plasma by With P-5'-P 30 enzyme_unit_per_liter Normal ALT SerPl w P-5' -P-cCnc [place] ([facility]) Note: Responsible Observer: SGPT/ALT SGP T/ALT 400.1750 (G) Calcium [Mass/volume] in Serum or Plasma 9.2 MilliGramsPerDeciLiter_[Mass_Concentration_Units] Normal Calcium SerPl-mCnc [place] ([facility]) Note: Responsible Observer: Calcium Calc ium 400.2500 (G) Bilirubin.total [Mass/volume] in Serum or Plasma 0.5 MilliGramsPerDeciLiter_[Mass_Concentration_Units] Normal Bilirub [facility] ([facility]) Note: Responsible Observer: T ABDIRAHMAN Total Bilirubin 400.2600 (G) Carbon dioxide, total [Moles/volume] in Serum or Plasm a 25 MilliMolesPerLiter_[Substance_Concentration_Units] Normal CO2 [facility] ([facility]) Note: Responsible Observer: CO2 Carbon D ioxide 400.1400 (G) Chloride [Moles/volume] in Serum or Plasma 105 MilliMolesPerLiter_[Substance_Concentration_Units] Normal Chloride [facility] ([facility]) Note: Responsible Observer: Chloride Chl oride 400.1250 (G) Glucose [Mass/volume] in Serum or Plasma 212 MilliGramsPerDeciLiter_[Mass_Concentration_Units] Above high normal Glucose [facility] ([facility]) Note: Responsible Observer: Glucose Gluc ose 400.1500 (G) Potassium [Moles/volume] in Serum or Plasma 4.6 MilliMolesPerLiter_[Substance_Concentration_Units] Normal Potassium [facility] ([facility]) Note: Responsible Observer: K Potassium 400.1210 (G) Protein [Mass/volume] in Serum or Plasma 7.1 GramsPerDeciLiter_[Mass_Concentration_Units] Normal Pro t [facility] ([facility]) Note: Responsible Observer: TP Total Pro tein 400.2800 (G) Sodium [Moles/volume] in Serum or Plasma 138 MilliMolesPerLiter_[Substance_Concentration_Units] Normal Sodium [facility] ([facility]) Note: Responsible Observer: Sodium Sodiu m 400.1100 (G) Aspartate aminotransferase [Enzymatic ac tivity/volume] in Serum or Plasma by With P-5'-P 11 enzyme_unit_per_liter Normal AST SerPl [facility] ([facility]) Note: Responsible Observer: SGOT / AST S GOT / AST 400.1900 (G) Urea nitrogen [Mass/volume] in Serum or Plasma 19 MilliGramsPerDeciLiter_[Mass_Concentration_Units] Normal BUN [facility] ([facility]) Note: Responsible Observer: BUN Blood Ur ea Nitrogen 400.1000 (G) Anion gap in Serum or Plasma 13 MilliMolesPerLiter_[Substance_Concentration_Units] Normal Anion Gap [facility] ([facility]) Note: Responsible Observer: ANION GAP AN ION GAP 400.1402 (E) Albumin [Mass/volume] in Serum or Plasma by Bromocresol purple (BCP) dye binding method 3.4 GramsPerDeciLiter_[Mass_Concentration_Units] Normal Albumin [facility] ([facility]) Note: Responsible Observer: Albumin [place] min 400.2700 (G) Alkaline phosphatase [Enzymatic activity/volume] in Se rum or Plasma 58 enzyme_unit_per_liter Normal ALP [facility] ( [facility]) Note: Responsible Observer: ALP Alkaline Phosphatase 400.2000 (G) Glomerular filtration rate/1.73 sq M.pre dicted [Volume Rate/Area] in Serum or Plasma Greater Than 60 [facility] Note: Responsible Observer: GFR Glomerul ar Filt Rate Calc 400.1605 (D) Creatinine [Moles/volume] in Vitreous fluid 1.1 MilliGramsPerDeciLiter_[Mass_Concentration_Units] Normal Creatinine [facility] ([facility]) Note: Responsible Observer: Creatinine C reatinine 400.1600 (G) ID Date Data Source [id number] 04/12/2020 06:40:00 AM EDT [facility] ([facility]) Name Value Range Interpretation Code Description Data Shelly rce(s) Supporting Document(s) Erythrocyte mean corpuscular volume [Ent itic volume] in Cord blood by Automated count 91.5 FemtoLiter_[SI_Volume_Units] Normal MCV Bld Co Auto [facility] ([facility]) Note: Responsible Observer: MCV MCV 100 .0600 (B) Erythrocyte distribution width [Entitic volume] by Automated cou nt 13 percent Normal RDW RBC Auto [place] ([facility]) Note: Responsible Observer: RDW RDW 100 .0900 (B) Manual Differential panel - Blood Manual Diff Added Manual diff Bld [facility] ([facility]) Note: Responsible Observer: CBC Manual D ifferential Added 100.1990 (B) Platelet mean volume [Entitic volume] in Blood 9.5 FemtoLite r_[SI_Volume_Units] Normal PMV Bld [facility] ([facility]) Note: Responsible Observer: MPV MPV 100 .1100 (B) Immature granulocytes [Presence] in Blood by Automated count See No te Normal Imm Granulocytes Bld Ql Auto [facility] ([facility]) Note: [id number] Ob kitchen food server: IG% IG% 100.1375 (B) Hematocrit [Volume Fraction] of Blood by Automated count 44.4 perce nt Normal Hct VFr Bld Auto [facility] ([facility]) Note: Responsible Observer: HEMATOCRIT H EMATOCRIT 100.0500 (B) Erythrocyte mean corpuscular hemoglobin concentration [Mass/volume] in Cord blood 33.1 GramsPerDeciLiter_[Mass_Concentration_Units] Normal MCHC BldCo-mCnc [facility] ([facility]) Note: Responsible Observer: MCHC MCHC 1 00.0800 (B) Immature granulocytes [#/volume] in Blood by Automated count 0.1 Un it Imm Granulocytes # d Auto [facility] ([facility]) Note: Responsible Observer: IG# IG# 100 .1400 (B) Monocytes/100 leukocytes in Blood by Automated count 1.2 percent Below low normal Monocytes/leuk NFr Bld Auto [facility]TE[place] ([facility]) Note: Responsible Observer: MONO % MONO % 100.1225 (B) Hemoglobin [Moles/volume] in Blood 14.7 GramsPerDeciLiter_[Mass_Concentration_Units] Normal Hgb Bld-sCnc [facility] ([facility]) Note: Responsible Observer: HGB HEMOGLOB IN 100.0400 (B) Leukocytes [#/volume] in Blood by Automated count 14.6 ThousandsPerMicroLiter_[Number_Concentration_Units] Above hi gh normal WBC # Bld Auto [facility] ([facility]) Note: Responsible Observer: WBC WHITE BL OOD COUNT 100.0100 (E) Basophils [#/volume] in Blood by Automated count 0.0 Unit Normal Basophils # Bld Auto [facility] ([facility]) Note: Responsible Observer: BASO # BASO# 100.1350 (B) Basophils/100 leukocytes in Blood by Automated count 0.1 percent Below low normal Basophils/leuk NFr Bld Auto [facility] ([facility]) Note: Responsible Observer: BASO % BASO % 100.1325 (B) Eosinophils [#/volume] in Blood by Automated count 0.0 Unit Normal Eosinophil # Bld Auto [facility] ([facility]) Note: Responsible Observer: EOS # EOS# 100.1300 (D) Eosinophils/100 leukocytes in Blood by Automated count 0.0 percent Normal Eosinophil/leuk NFr Bld Auto [facility] ([facility]) Note: Responsible Observer: EOS % EOS % 100.1275 (B) Lymphocytes [#/volume] in Blood by Automated count 0.6 Unit Normal Lymphocytes # Bld Auto [facility] ([facility]) Note: Responsible Observer: LYMPH # LYMP H# 100.1200 (B) Lymphocytes/100 leukocytes in Blood by Automated count 4.2 perce nt Below low normal Lymphocytes/leuk NFr Bld Auto [facility] ([facility]) Note: Responsible Observer: LYMPH % LYMP H % 100.1175 (B) Monocytes [#/volume] in Blood by Automated count 0.2 Unit Normal Monocytes # Bld Auto [facility] ([facility]) Note: Responsible Observer: MONO # MONO# 100.1250 (C) Neutrophils [#/volume] in Blood by Automated count 13.8 Unit Above high normal Neutrophils # Bld Auto [facility] ([facility] ) Note: Responsible Observer: NEUT# NEUT# 100.1150 (B) Neutrophils/100 leukocytes in Blood by Automated count 94.0 perc ent Above high normal Neutrophils/leuk NFr Bld Auto [facility] ([facility]) Note: @PERFORM SLIDE SCAN IF NOT AGREE M AN DIFF@DOCUMENT SLIDE SCAN COMMENTResponsible Observer: NEUT% NEUT% 100.1125 (B) Platelets [#/volume] in Blood by Automated count 235 ThousandsPerMicroLiter_[Number_Concentration_Units] Normal Platelet # Bld Auto [facility] ([facility]) Note: Responsible Observer: PLATELET COU NT PLATELET COUNT 100.1000 (D) Erythrocyte mean corpuscular hemoglobin [Entitic mass] by Automated count 30.3 PicoGram_[SI_Mass_Units] Normal MCH RBC Qn Auto [place] ([facility]) Note: Responsible Observer: MCH MCH 100 .0700 (B) Erythrocytes [#/volume] in Blood by Automated count 4. 85 MillionsPerMicroLiter_[Number_Concentration_Units] Normal RBC # Bld Auto [facility] ([facility]) Note: Responsible Observer: RBC Red Bloo d Count 100.0300 (B) NUCLEATED RED BLOOD CELL# 0 Unit NUCLEATED RED BLOOD CELL# [facility] ([facility]) Note: Responsible Observer: NRBC# NUCLEA SABRINA RBC 100.1362 (A) NUCLEATED RED BLOOD CELL 0 percent NUCLEATED R ED BLOOD CELL [facility] ([facility]) Note: Responsible Observer: NRBC% NRBC% 100.1360 (B) Notes [TIMP] See Note NOTES [facility] ([facility]) Note: @04/12/20 0729: MANUAL DIFF added. RFLXG = DIFF. ID Date Data Source [id number] 04/12/2020 12:34:00 AM [facility] @ RYAN DATE was changed from 04/12/20 to 04/11/20@ by SHEEBA. Old specimen was [id number]. Name Value Range Interpretation Code Description Data Shelly rce(s) Supporting Document(s) Troponin I.cardiac [Mass/volume] in Serum or Plasma Less Than 0.015 0.00-0.09 N [facility] Less than 0.09 NG/ML Negative0.10 - 0.77 NG/ML High Risk0.78 NG/ML or Greater PositiveThe WHO defined the cutoff (definition for diagnosis of OK)for this method as 0.78 ng/ml. ID Date Data Source [id number] 04/11/2020 10:42:00 PM [facility] @04/11/20 1840: 4hr Lactic Acid [...] WANT IT REPEATED ID Date Data Source [id number] 04/11/2020 10:10:00 PM EDT [facility] ([facility]) Name Value Range Interpretation Code Description Data Shelly rce(s) Supporting Document(s) Reported Physicians See Note Reported Physici ans [facility] ([facility]) Note: Reported Physicians:Ordering: Kian ArguelloAttending: Shruthi De SouzakrAzuldmitting: Pete De Souza To: Esha Talamantes ID Date Data Source [id number] 04/11/2020 10:10:00 PM EDT [facility] ([facility]) Name Value Range Interpretation Code Description Data Shelly rce(s) Supporting Document(s) Lactate [Mass/volume] in Serum or Plasma 1.7 MilliMolesPerLiter_[Substance_Concentration_Units] [facility] Note: A HIGH RESULT ON THIS 4HR LACTIC A PIPO WILL NOT REFLEXANOTHER - YOU MUST ORDER ONE IF YOU WANT IT REPEATEDResponsible Observer: 4HR LACTIC RPT 4HR LACTIC ACID 400.2840 (G) Notes [TIMP] See Note NOTES [facility] ([facility]) Note: @04/11/20 1840: 4hr Lactic Acid ad ded. RFLXG = RFX LACTIC. ID Date Data Source [id number] 04/11/2020 10:10:00 PM EDT [facility] ([facility]) Name Value Range Interpretation Code Description Data Shelly rce(s) Supporting Document(s) Reported Physicians See Note [facility] Note: Reported Physicians:Ordering: Marly Ferrarattending: Jeremiah, VikramAdmitting: Jeremiah, VikramCopy To: Jeremiah VikramCopy To: Esha Talamantes ID Date Data Source [id number] 04/11/2020 10:10:00 PM EDT [facility] ([facility]) Name Value Range Interpretation Code Description Data Shelly rce(s) Supporting Document(s) Troponin I.cardiac [Mass/volume] in Serum or Plasma Less Than 0.015 Normal Troponin I [facility] [address] [place] ([facility]) Note: Less than 0.09 NG/ML Negative 0.10 - 0.77 NG/ML High Risk0.78 NG/ML or Greater PositiveThe WHO defined the cutoff (definition for diagnosis of OK)for this method as 0.78 ng/ml.Responsible Observer: Troponin I Troponin I 600.1101 (G) Notes [TIMP] See Note NOTES [facility] ([facility]) Note: @ RYAN DATE was changed from 04/12 to 04/11/20@ by SHEEBA. Old specimen was [id number]. ID Date Data Source [id number] 04/11/2020 10:05:00 PM EDT [facility] TOBAR COVID-19 IS AN ISOTHERMAL NA A TECHNOLOGYNORMAL VALUE IS "SARS-COV-2 COVID 19 NOT DETECTED"False negative results may occur if a specimen is improperlycollected,transported or handled.False negative results may also occur if amplicationinhibitors are present in the specimen or if inadequatelevels of viruses are present in the specimen.As with any molecular test, if the virus mutates in [facility] region, Covid-19 may not be [...] rce(s) Supporting Document(s) ID Date Data Source [id number] 04/11/2020 09:30:00 PM EDT [place] ([facility]) Name Value Range Interpretation Code Description Data Shelly rce(s) Supporting Document(s) Reported Physicians See Note Reported Physici karoline [facility] ([facility]) Note: Reported Physicians:Ordering: Kian ArguelloAttending: John De Souzaitting: Pete De Souza To: VinitaEsha ID Date Data Source [id number] 04/11/2020 09:30:00 PM EDT [facility] ([facility]) Name Value Range Interpretation Code Description Data Shelly rce(s) Supporting Document(s) TOBAR COVID-19 SCHOOL See Note TOBAR COVID- 19 SCHOOL [facility] ([facility]) Note: TOBAR COVID-19 IS AN ISOTHER MAL KRISTEN TECHNOLOGYNORMAL VALUE IS "SARS-COV-2 COVID 19 NOT DETECTED"False negative results may occur if a specimen is improperlycollected,transported or handled.False negative results may also occur if amplicationinhibitors are present in the specimen or if inadequatelevels of viruses are present in the specimen.As with any molecular test, if the virus mutates in [facility] region, Covid-19 may not be detected or may bedetected less predictably.ID NOW COVID-19 is intended for testing a swab directlywithout elution in viral transport media as dilution willresult in decreased detection of low positive samples thatare near the limit of detection of the test.SWAB SAMPLES ELUTED IN VTM ARE NOT APPROPRIATE FOR USE INTHIS TEST.NOSNo Organisms [id number] Organisms Detected ID Date Data Source [id number] 04/11/2020 09:17:00 PM EDT [facility] Name: OTLU RATLIFF : 1955 Age: 64 MR#: [id number] Admit Date: 04/11/20 Provider: Leonardo Alonso Room [...] 30 years old and [facility] in [place]. He reported being replaced before on anticoagulation [...] drug use. Family History: Father due to OK at age 7979 year old, he had [...] mg PO DAILY 04/11/20 04/11/20 04/11/20 History wotgznuxdmce-ldjwwohj-ynlomu 1 tab PO DAILY 04/11/20 04/11/20 04/11/20 [...] % (Auto) 68.7, Lymph % (Auto) 20.9, [place] % (Auto) 8.4, Eos % (Auto) 1.2, [...] Appearance Clear, Urine pH 5.0, Ur Specific [place] 1.010,Urine Protein Negative, Urine Ketones Negative, Urine [...] The patient needs to follow up with security attendant as regard to his DM that might [...] rce(s) Supporting Document(s) ID Date Data Source [id number] 04/11/2020 08:56:00 PM EDT [facility] [address] [id number] [phone] NAME SEX PT STATUS ACCOUNT NUMBER TOLU RATLIFF [facility] [id number] ORDERING PHYSICIAN LOCATION MEDICAL RECORD NO. Scott Mei MD ER [id number] ATTENDING PHYSICIAN DATE OF DATE OF EXAM/TIME [...] Trans Dt/Tm: Trans by: JERRY Prt Dt/Tm: 9500-6715: Total DLP = 407.00 mGy-cm 9615-8292: Total Radiation Dose = 2.4013 mSv Lifetime Dose: 4.5186 mSv Name Value Range Interpretation Code Description Data Shelly rce(s) Supporting Document(s) ID Date Data Source [id number] 04/11/2020 08:08:00 PM EDT [facility] Reason for ordering culture: Abnormal fi ndings UAMethod of Collection:: Voided Name Value Range Interpretation Code Description Data Shelly rce(s) Supporting Document(s) Color of Urine [facility] Appearance of Urine CLEAR [facility] pH of Urine by Test strip 5.0 5-8 [facility] Specific gravity of Urine by Refractometry [...] [facility] ID Date Data Source [id number] 04/11/2020 07:59:00 PM [facility] ([facility]) Name Value Range Interpretation Code Description Data Shelly rce(s) Supporting Document(s) Reported Physicians See Note Reported Physici ans [facility] ([facility]) Note: Reported Physicians:Ordering: Kian ArguelloAttending: Talita Cannon To: Esha Talamantes ID Date Data Source [id number] 04/[facility]2020 07:59[facility] Name Value Range Interpretation Code Description Data Shelly rce(s) Supporting Document(s) Urobilinogen [Presence] in Urine See Note Uro bilinogen Ur Ql [facility] ([facility]) Note: 0.2 EU/dl0.2 EU/[id number] E U/dlResponsible Observer: UROBILINOGEN UROBILINOGEN 300.4500 (C) Erythrocytes [#/volume] in Urine by Test strip NEGATIVE RBC # Ur Strip [facility] ([facility]) Note: Responsible Observer: BLOOD BLOOD 300.4652 (C) Protein [Presence] in Urine by Test strip See Note Prot Ur Ql Strip [facility] ([facility]) Note: [id number] EResponsible Observer: PROTEIN PROTEIN 300.3750 (C) Ketones [Presence] in Urine by Test strip See Note Ketones Ur Ql Strip [facility] ([facility]) Note: [id number] EResponsible Observer: KETONE KETONE 300.3900 (C) Bilirubin.total [Presence] in Urine by Automated test strip See Not e Bilirub Ur Ql Strip.auto [facility] ([facility]) Note: [id number] EResponsible Observer: BILIRUBIN BILIRUBIN 300.4550 (C) Glucose [Mass/volume] in Urine by Automated test strip NEGATIVE Glucose Ur Strip.auto-mCnc [facility] ([facility]) Note: Responsible Observer: GLUCOSE GLUC OSE 300.3850 (C) Appearance of Urine See Note Appearance Ur GR [place] ([facility]) Note: CLEARCLEARLCLEARResponsible Observ er: APPEARANCE APPEARANCE 300.3400 (A) Color of Urine See Note Color Ur [facility] ([facility]) Note: YELLOWYELLOWLYELLOWResponsible Obs erver: COLOR COLOR 300.3330 (A) Leukocyte esterase [Presence] in Urine by Test strip See Note Leukocyte esterase Ur Ql Strip [facility] ([facility]) Note: [id number] EResponsible Observer: LEUKOCYTES LEUKOCYTES 300.3576 (C) Nitrite [Presence] in Urine by Test strip See Note Nitrite Ur Ql Strip [facility] ([facility]) Note: [id number] EResponsible Observer: NITRITE NITRITE 300.3652 (B) pH of Urine by Test strip 5.0 pH Ur Stri p [facility] ([facility]) Note: Responsible Observer: PH PH 300.3 450 (C) Specific gravity of Urine by Refractometry 1.010 Sp Gr Ur Refractometry [facility] ([facility]) Note: Responsible Observer: SP GRAVITY U RINE SPECIFIC GRAVITY-MAN 300.3475 (C) URINE MICROSCOPIC? (CIF) NO URINE MICRO SCOPIC? (CIF) [facility] ([facility]) Note: Responsible Observer: UA URINE KEENAN ROSCOPIC PENDING 300.4665 (D) Notes [TIMP] See Note NOTES [facility] ([facility]) Note: Reason for ordering culture: Abnor mal findings UAMethod of Collection:: Voided ID Date Data Source [id number] 04/11/2020 07:16:00 PM EDT [facility] [address] [place] [address] [phone] NAME SEX PT STATUS ACCOUNT NUMBER Tolu Ratliff [facility] ER [id number] ORDERING PHYSICIAN LOCATION MEDICAL RECORD NO. Kian Cannon MD ER [id number] ATTENDING PHYSICIAN DATE OF DATE OF EXAM/TIME [...] Trans Dt/Tm: Trans by: DT Prt Dt/Tm: 7637-7258: Total DLP = 683.00 mGy-cm 7346-0586: Total Radiation Dose = 2.1173 mSv Lifetime Dose: 2.1173 mSv Name Value Range Interpretation Code Description Data Shelly rce(s) Supporting Document(s) ID Date Data Source [id number] 04/11/2020 06:34:00 PM EDT [facility] [address] [place], [place] [address] [phone] NAME SEX PT STATUS ACCOUNT NUMBER Tolu Ratliff [facility] ER [id number] ORDERING PHYSICIAN LOCATION MEDICAL RECORD NO. Kian Cannon MD ER [id number] ATTENDING PHYSICIAN DATE OF DATE OF EXAM/TIME [...] Trans Dt/Tm: Trans by: DT Prt Dt/Tm: 5528-7731: Total DLP = 0.00 mGy-cm Fluoroscopy Time (in secs): Name Value Range Interpretation Code Description Data Shelly rce(s) Supporting Document(s) ID Date Data Source [id number] 04/11/2020 06:40:00 PM [facility] Special Instructions: Lab may order repe at test if initial test elevatedPhysician If elevated, reflex second test in 4-6 hrs Name Value Range Interpretation Code Description Data Shelly rce(s) Supporting Document(s) Lactic w Rfx (if elevated) 2.1 mmol/L 0.5-2.2 N [facility] Called to RYAN @ 1835 by Carlos Child. Results readback. ID Date Data Source [id number] 04/16/2020 05:57:00 PM [facility] Special Instructions: Lab may order repe at test if initial test elevatedPhysician If elevated, reflex second test in 4-6 hrs Name Value Range Interpretation Code Description Data Shelly rce(s) Supporting Document(s) Bacteria identified in Blood by Culture [facility] NO GROWTH AFTER 5 DAYS ID Date Data Source [id number] 04/11/2020 11:28:00 PM [facility] Special Instructions: from the last lab sample, otherwise, from the next Name Value Range Interpretation Code Description Data Shelly rce(s) Supporting Document(s) Erythrocyte sedimentation rate by Westergren method 13 mm/hr 0-20 N [facility] @Argentinanter manual test result: 13@by Tori Schultz at 04/11/20 2328. ID Date Data Source [id number] 04/11/2020 06:00:00 PM EDT [facility] [...] by Automated count 91.8 fL 80-96 N [facility] ital Erythrocyte mean corpuscular hemoglobin [Entitic mass] by Automated count 30.8 pg 27-31 N [facility] l Erythrocyte mean corpuscular hemoglobin concentration [Mass/volume] in Cord blood 33.5 g/dL 33-37 N [facility] Erythrocyte distribution width [Entitic volume] by [...] Center NUCLEATED RED BLOOD CELL# 0 U [facility] Immature granulocytes [Presence] in Blood by Automated count 0-2 N [facility] Immature granulocytes [#/volume] in Blood by Automated count 0.0 U 0-0.1 N [facility] Manual Differential panel - Blood NO [facility] ID Date Data Source [id number] 04/11/2020 06:25:00 PM EDT [facility] Name Value Range Interpretation Code Description Data Shelly rce(s) Supporting Document(s) Urea nitrogen [Mass/volume] in Serum or Plasma 17 mg/dL 9-23 N [facility] Sodium [Moles/volume] in Serum or Plasma 138 mmol/L 132-146 [facility] Potassium [Moles/volume] in Serum or Plasma 3.9 mmol/L 3.5-5.5 [facility] Chloride [Moles/volume] in Serum or Plasma 103 mmol/L 99-109 [facility] Carbon dioxide, total [Moles/volume] in Serum or Plasma 26 mmol/L 20 -31 [facility] Anion gap in Serum or Plasma 13 mmol/L 8-16 [facility] Glucose [Mass/volume] in Serum or Plasma 150 mg/dL 74-106 Above high normal [facility] Creatinine 1.0 mg/dL 0.5-1.1 Health system Glomerular filtration rate/1.73 sq M.pre dicted [Volume Rate/Area] in Serum or Plasma Greater Than 60 ABOVE 60 [facility] Alanine aminotransferase [Enzymatic acti vity/volume] in Serum or Plasma by With P-5'-P 33 U/L 10-49 [facility] ital Aspartate aminotransferase [Enzymatic ac tivity/volume] in Serum or Plasma by With P-5'-P 15 U/L 0-33 [facility] pital Alkaline phosphatase [Enzymatic activity/volume] [...] dye binding method 3.8 g/dL 3.2-4.8 N [facility] ital Protein [Mass/volume] in Serum or Plasma 8.0 g/dL 5.7-8.2 N [facility] ID Date Data Source [id number] 04/11/2020 06:25:00 PM EDT [facility] Name Value Range Interpretation Code Description Data Shelly rce(s) Supporting Document(s) Troponin I.cardiac [Mass/volume] in Serum or Plasma Less Than 0.015 0.00-0.09 N [facility] Less than 0.09 NG/ML Negative0.10 - 0.77 NG/ML High Risk0.78 NG/ML or Greater PositiveThe WHO defined the cutoff (definition for diagnosis of OK)for this method as 0.78 ng/ml. ID Date Data Source [id number] 04/11/2020 06:24:00 PM EDT [facility] Name Value Range Interpretation Code Description Data Shelly rce(s) Supporting Document(s) Magnesium [Mass/volume] in Serum or Plasma 2.3 mg/dL 1.3-2.7 N [facility] ID Date Data Source [id number] 04/11/2020 06:23:00 PM EDT [facility] ID Date Data Source [id number] 04/11/2020 05:55:00 PM EDT [facility] ([facility]) Name Value Range Interpretation Code Description Data Shelly rce(s) Supporting Document(s) Reported Physicians See Note Reported Physici ans [facility] ([facility]) Note: Reported Physicians:Ordering: Kian ArguelloAttending: John De Souzaitting: Pete De Souza To: Esha Talamantes ID Date Data Source [id number] 04/11/2020 05:55:00 PM EDT [facility] ([facility]) Name Value Range Interpretation Code Description Data Shelly rce(s) Supporting Document(s) Bacteria identified in Blood by Culture See Note Bacteria Bld Cult [facility] ([facility]) Note: NG5DNo growth.[id number] GROWTH AFTE R 5 DAYS ID Date Data Source [id number] 04/11/2020 05:55:00 PM EDT [facility] ([facility]) Name Value Range Interpretation Code Description Data Shelly rce(s) Supporting Document(s) Bacteria identified in Blood by Culture See Note Bacteria Bld Cult [facility] ([facility]) Note: NG5DNo growth.[id number] GROWTH AFTE R 5 DAYS ID Date Data Source [id number] 04/11/2020 05:55:00 PM EDT [facility] ([facility]) Name Value Range Interpretation Code Description Data Shelly rce(s) Supporting Document(s) Lactic w Rfx (if elevated) 2.1 MilliMolesPerLiter_[Substance_Concentration_Units] Normal Lactic w Rfx (if elevated) [facility]) Note: Called to RYAN @ 1835 by Tori Kenny. Results readback.Responsible Observer: Lactic Acid Lactic Acid 400.2831 (G) Notes [TIMP] See Note NOTES [facility] ([facility]) Note: Special Instructions: Lab may orde r repeat test if initial test elevatedPhysician If elevated, reflex second test in 4-6 hrs ID Date Data Source [id number] 04/11/2020 05:55:00 PM EDT [facility] ([facility]) Name Value Range Interpretation Code Description Data Shelly rce(s) Supporting Document(s) Reported Physicians See Note Reported Physici ans [facility] ([facility]) Note: Reported Physicians:Ordering: Kian ArguelloAttending: Talita Cannon To: Esha Talamantes ID Date Data Source [id number] 04/11/2020 05:55:00 PM EDT [facility] ([facility]) Name Value Range Interpretation Code Description Data Shelly rce(s) Supporting Document(s) Alanine aminotransferase [Enzymatic acti vity/volume] in Serum or Plasma by With P-5'-P 33 enzyme_unit_per_liter Normal ALT SerPl [facility] ([facility]) Note: Responsible Observer: SGPT/ALT SGP T/ALT 400.1750 (G) Calcium [Mass/volume] in Serum or Plasma 9.4 MilliGramsPerDeciLiter_[Mass_Concentration_Units] Normal Calcium [facility] ([facility]) Note: Responsible Observer: Calcium Calc ium 400.2500 (G) Bilirubin.total [Mass/volume] in Serum or Plasma 0.8 MilliGramsPerDeciLiter_[Mass_Concentration_Units] Normal Bilirub [facility] ([facility]) Note: Responsible Observer: T ABDIRAHMAN Total Bilirubin 400.2600 (G) Carbon dioxide, total [Moles/volume] in Serum or Plasm a 26 MilliMolesPerLiter_[Substance_Concentration_Units] Normal CO2 [facility] ([facility]) Note: Responsible Observer: CO2 Carbon D ioxide 400.1400 (G) Chloride [Moles/volume] in Serum or Plasma 103 MilliMolesPerLiter_[Substance_Concentration_Units] Normal Chloride [facility] ([facility]) Note: Responsible Observer: Chloride Chl oride 400.1250 (G) Glucose [Mass/volume] in Serum or Plasma 150 MilliGramsPerDeciLiter_[Mass_Concentration_Units] Above high normal Glucose [facility] ([facility]) Note: Responsible Observer: Glucose Gluc ose 400.1500 (G) Potassium [Moles/volume] in Serum or Plasma 3.9 MilliMolesPerLiter_[Substance_Concentration_Units] Normal Potassium [facility] ([facility]) Note: Responsible Observer: K Potassium 400.1210 (G) Protein [Mass/volume] in Serum or Plasma 8.0 GramsPerDeciLiter_[Mass_Concentration_Units] Normal Pro t [facility] ([facility]) Note: Responsible Observer: TP Total Pro tein 400.2800 (G) Sodium [Moles/volume] in Serum or Plasma 138 MilliMolesPerLiter_[Substance_Concentration_Units] Normal Sodium [facility] ([facility]) Note: Responsible Observer: Sodium Sodiu m 400.1100 (G) Aspartate aminotransferase [Enzymatic ac tivity/volume] in Serum or Plasma by With P-5'-P 15 enzyme_unit_per_liter Normal AST [facility] w P-5' -P-[facility] ([facility]) Note: Responsible Observer: SGOT / AST S GOT / AST 400.1900 (G) Urea nitrogen [Mass/volume] in Serum or Plasma 17 MilliGramsPerDeciLiter_[Mass_Concentration_Units] Normal BUN [facility] ([facility]) Note: Responsible Observer: BUN Blood Ur ea Nitrogen 400.1000 (G) Anion gap in Serum or Plasma 13 MilliMolesPerLiter_[Substance_Concentration_Units] Normal Anion Gap [facility] ([facility]) Note: Responsible Observer: ANION GAP AN ION GAP 400.1402 (E) Albumin [Mass/volume] in Serum or Plasma by Bromocresol purple (BCP) dye binding method 3.8 GramsPerDeciLiter_[Mass_Concentration_Units] Normal Albumin [facility] ([facility]) Note: Responsible Observer: Albumin [place] 400.2700 (G) Alkaline phosphatase [Enzymatic activity/volume] in Se rum or Plasma 60 enzyme_unit_per_liter Normal ALP [facility] ( [facility]) Note: Responsible Observer: ALP Alkaline Phosphatase 400.2000 (G) Glomerular filtration rate/1.73 sq M.pre dicted [Volume Rate/Area] in Serum or Plasma Greater Than 60 GFR/BSA.pred [facility]) Note: Responsible Observer: GFR Glomerul ar Filt Rate Calc 400.1605 (D) Creatinine [Moles/volume] in Vitreous fluid 1.0 MilliGramsPerDeciLiter_[Mass_Concentration_Units] Normal Creatinine [facility] ([facility]) Note: Responsible Observer: Creatinine C reatinine 400.1600 (G) ID Date Data Source [id number] 04/11/2020 05:55:00 PM EDT [facility] ([facility]) Name Value Range Interpretation Code Description Data Shelly rce(s) Supporting Document(s) Erythrocyte mean corpuscular volume [Ent itic volume] in Cord blood by Automated count 91.8 FemtoLiter_[SI_Volume_Units] Normal MCV Bld Co Auto [facility] ([facility]) Note: Responsible Observer: MCV MCV 100 .0600 (B) Erythrocyte distribution width [Entitic volume] by Automated cou nt 12 percent Normal RDW RBC Auto [facility] ([facility]) Note: Responsible Observer: RDW RDW 100 .0900 (B) Manual Differential panel - Blood NO Ma nual diff Bld [facility] ([facility]) Note: Responsible Observer: CBC Manual D ifferential Added 100.1990 (B) Platelet mean volume [Entitic volume] in Blood 9.3 FemtoLite r_[SI_Volume_Units] Normal PMV Bld [facility] ([facility]) Note: Responsible Observer: MPV MPV 100 .1100 (B) Immature granulocytes [Presence] in Blood by Automated count See No te Normal Imm Granulocytes Bld Ql Auto [facility] ([facility]) Note: [id number] Ob kitchen food server: IG% IG% 100.1375 (B) Hematocrit [Volume Fraction] of Blood by Automated count 46.2 perce nt Normal Hct VFr Bld Auto [facility] ([facility]) Note: Responsible Observer: HEMATOCRIT H EMATOCRIT 100.0500 (B) Erythrocyte mean corpuscular hemoglobin concentration [Mass/volume] in Cord blood 33.5 GramsPerDeciLiter_[Mass_Concentration_Units] Normal MCHC BldCo-mCnc [facility] ([facility]) Note: Responsible Observer: MCHC MCHC 1 00.0800 (B) Immature granulocytes [#/volume] in Blood by Automated count 0.0 Un it Imm Granulocytes # Bld Auto [facility] ([facility]) Note: Responsible Observer: IG# IG# 100 .1400 (B) Monocytes/100 leukocytes in Blood by Automated count 8.4 percent Normal Monocytes/leuk NFr Bld Auto [facility] ([facility]) Note: Responsible Observer: MONO % MONO % 100.1225 (B) Hemoglobin [Moles/volume] in Blood 15.5 GramsPerDeciLiter_[Mass_Concentration_Units] Normal Hgb Bld-sCnc [facility] ([facility]) Note: Responsible Observer: HGB HEMOGLOB IN 100.0400 (B) Leukocytes [#/volume] in Blood by Automated count 10.4 ThousandsPerMicroLiter_[Number_Concentration_Units] Normal WBC # Bld Auto [facility] ([facility]) Note: Responsible Observer: WBC WHITE BL OOD COUNT 100.0100 (E) Basophils [#/volume] in Blood by Automated count 0.1 Unit Normal Basophils # Bld Auto [facility] ([facility]) Note: Responsible Observer: BASO # BASO# 100.1350 (B) Basophils/100 leukocytes in Blood by Automated count 0.5 percent Normal Basophils/leuk NFr Bld Auto [facility] ([facility]) Note: Responsible Observer: BASO % BASO % 100.1325 (B) Eosinophils [#/volume] in Blood by Automated count 0.1 Unit Normal Eosinophil # Bld Auto [facility] ([facility]) Note: Responsible Observer: EOS # EOS# 100.1300 (D) Eosinophils/100 leukocytes in Blood by Automated count 1.2 percent Normal Eosinophil/leuk NFr Bld Auto [facility] ([facility]) Note: Responsible Observer: EOS % EOS % 100.1275 (B) Lymphocytes [#/volume] in Blood by Automated count 2.2 Unit Normal Lymphocytes # Bld Auto [facility] ([facility]) Note: Responsible Observer: LYMPH # LYMP H# 100.1200 (B) Lymphocytes/100 leukocytes in Blood by Automated count 20.9 percent Normal Lymphocytes/leuk NFr Bld Auto [facility] ([facility]) Note: Responsible Observer: LYMPH % LYMP H % 100.1175 (B) Monocytes [#/volume] in Blood by Automated count 0.9 Unit Normal Monocytes # Bld Auto [facility] ([facility]) Note: Responsible Observer: MONO # MONO# 100.1250 (C) Neutrophils [#/volume] in Blood by Automated count 7.2 Unit Normal Neutrophils # Bld Auto [facility] ([facility]) Note: Responsible Observer: NEUT# NEUT# 100.1150 (B) Neutrophils/100 leukocytes in Blood by Automated count 68.7 percent Normal Neutrophils/leuk NFr Bld Auto [facility] ([facility]) Note: Responsible Observer: NEUT% NEUT% 100.1125 (B) Platelets [#/volume] in Blood by Automated count 243 ThousandsPerMicroLiter_[Number_Concentration_Units] Normal Platelet # Bld Auto [facility] ([facility]) Note: Responsible Observer: PLATELET COU NT PLATELET COUNT 100.1000 (D) Erythrocyte mean corpuscular hemoglobin [Entitic mass] by Automated count 30.8 PicoGram_[SI_Mass_Units] Normal MCH RBC Qn Auto [place] ([facility]) Note: Responsible Observer: MCH MCH 100 .0700 (B) Erythrocytes [#/volume] in Blood by Automated count 5. 03 MillionsPerMicroLiter_[Number_Concentration_Units] Normal RBC # Bld Auto [facility] ([facility]) Note: Responsible Observer: RBC Red Bloo d Count 100.0300 (B) NUCLEATED RED BLOOD CELL# 0 Unit NUCLEATED RED BLOOD CELL# [facility] ([facility]) Note: Responsible Observer: NRBC# NUCLEA SABRINA RBC 100.1362 (A) NUCLEATED RED BLOOD CELL 0 percent NUCLEATED R ED BLOOD CELL [facility] ([facility]) Note: Responsible Observer: NRBC% NRBC% 100.1360 (B) ID Date Data Source [id number] 04/11/2020 05:55:00 PM EDT [facility] ([facility]) Name Value Range Interpretation Code Description Data Shelly rce(s) Supporting Document(s) Reported Physicians See Note Reported Physici ans [facility] ([facility]) Note: Reported Physicians:Ordering: Ember Arguelloending: Talita Cannon To: Esha Talamantes ID Date Data Source [id number] 04/11/2020 05:55:00 PM EDT [place] ([facility]) Name Value Range Interpretation Code Description Data Shelly rce(s) Supporting Document(s) Magnesium [Mass/volume] in Serum or Plasma 2.3 MilliGramsPerDeciLiter_[Mass_Concentration_Units] Normal [facility] Note: Responsible Observer: Magnesium Ma gnesium 400.3300 (G) ID Date Data Source [id number] 04/11/2020 05:55:00 PM EDT [facility] ([facility]) Name Value Range Interpretation Code Description Data Shelly rce(s) Supporting Document(s) Reported Physicians See Note Reported Physici ans [facility] ([facility]) Note: Reported Physicians:Ordering: Pradeep Ferraraending: John De Souzaitting: Honorio De SouzaCopninfa To: Pete De Souza To: Esha Talamantes ID Date Data Source [id number] 04/11/2020 05:55:00 PM EDT [place] ([facility]) Name Value Range Interpretation Code Description Data Shelly rce(s) Supporting Document(s) Erythrocyte sedimentation rate by Westergren method 13 Normal ESR Bld Qn [facility] ([facility]) Note: @Reenter manual test result: 13@by Tori Child at 04/11/20 2328.Responsible Observer: SED RATE SED RATE 100.6400 (B) Notes [TIMP] See Note NOTES [facility] ([facility]) Note: Special Instructions: from the las t lab sample, otherwise, from the next ID Date Data Source [id number] 04/11/2020 05:55:00 PM EDT [place] ([facility]) Name Value Range Interpretation Code Description Data Shelly rce(s) Supporting Document(s) Reported Physicians See Note [facility] Note: Reported Physicians:Ordering: Kian ArguelloAttending: Talita Cannon To: Esha Talamantes ID Date Data Source [id number] [facility]2020 [facility]55[facility] Name Value Range Interpretation Code Description Data Shelly rce(s) Supporting Document(s) Chemistry studies (set) 2.4 percent Chemistry s [facility]) Note: Responsible Observer: CK RELATIVE % CK RELATIVE % 600.0055 (A) Creatine kinase [Enzymatic activity/volume] in Serum o r Plasma 158 enzyme_unit_per_liter Normal CK [facility]) Note: Responsible Observer: CK Creatine Kinase 400.9115 (G) Creatine kinase.MB [Enzymatic activity/volume] in Seru m or Plasma 3.8 NanoGramsPerMilliLiter_[Mass_Concentration_Units] Normal CK MB [facility] ([facility]) Note: Responsible Observer: CKMB Creatin e Kinase MB 600.0050 (G) ID Date Data Source [id number] 04/11/2020 05:55:00 PM [facility] ([facility]) Name Value Range Interpretation Code Description Data Shelly rce(s) Supporting Document(s) Reported Physicians See Note Reported Physici [facility] ([facility]) Note: Reported Physicians:Ordering: Ember Arguelloending: Talita Cannon To: Esha Talamantes ID Date Data Source [id number] 04/11/2020 05:55:00 PM [facility] ([facility]) Name Value Range Interpretation Code Description Data Shelly rce(s) Supporting Document(s) Troponin I.cardiac [Mass/volume] in Serum or Plasma Less Than 0.015 Normal Troponin I [facility]) Note: Less than 0.09 NG/ML Negative 0.10 - 0.77 NG/ML High Risk0.78 NG/ML or Greater PositiveThe WHO defined the cutoff (definition for diagnosis of OK)for this method as 0.78 ng/ml.Responsible Observer: Troponin I Troponin I 600.1101 (G) ID Date Data Source [id number] 04/11/2020 05:40:00 PM EDT [facility] ED Physician Documentation NAME: TOLU RATLIFF : 1955 AGE: 64 MR#: [id number] SERVICE DATE: 04/11/[address]: Kian Cannon [...] % (Auto) 68.7, Lymph % (Auto) 20.9, [place] % (Auto) 8.4, Eos % (Auto) 1.2, [...] Appearance Clear, Urine pH 5.0, Ur Specific [place] 1.010,Urine Protein Negative, Urine Ketones Negative, Urine [...] % (Auto) 68.7, Lymph % (Auto) 20.9, [place] % (Auto) 8.4, Eos % (Auto) 1.2, [...] Appearance Clear, Urine pH 5.0, Ur Specific [place] 1.010,Urine Protein Negative, Urine Ketones Negative, Urine [...] rce(s) Supporting Document(s) ID Date Data Source [id number] 04/11/2020 12:00:00 AM EDT [facility] Name Value Range Interpretation Code Description Data Shelly rce(s) Supporting Document(s) SARS-CoV2 Rapid PCR [facility] This lab was ordered by [facility] and reported by [facility]. ID Date Data Source [id number] 08/12/2019 07:48:00 AM EST [facility] ([facility]) Name Value Range Interpretation Code Description Data Shelly rce(s) Supporting Document(s) Reported Physicians See Note Reported Physici ans [place] ([facility]) Note: Reported Physicians:Ordering: Beard e Esha AAttending: VINITA, JOCELYNConsulting: VINITA, JOCELYNCopy To: Esha Talamantes ID Date Data Source [id number] 08/12/2019 07:48:00 AM EST [place] ([facility]) Name Value Range Interpretation Code Description Data Shelly rce(s) Supporting Document(s) CPK 102 U/L CPK [facility] ([facility]) Note: Responsible Observer: () ID Date Data Source [id number] 08/12/2019 07:48:00 AM EST [place] ([facility]) Name Value Range Interpretation Code Description Data Shelly rce(s) Supporting Document(s) Reported Physicians See Note Reported Physici ans [place] ([facility]) Note: Reported Physicians:Ordering: Beard e, Esha AAttending: VINITA, JOCELYNConsulting: VINITA, JOCELYNCopy To: Esha Talamantes ID Date Data Source [id number] 08/12/2019 07:48:00 AM EST [place] ([facility]) Name Value Range Interpretation Code Description Data Shelly rce(s) Supporting Document(s) A/G RATIO 1.7 A/G RATIO [facility] ([facility]) Note: Responsible Observer: () AFR AMER GFR >60 mL/min AFR AMER GFR [facility] ([facility]) Note: Male GFR Interprentation 20- 49 [...] () 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 64 yrs AGE [facility] ([facility]) Note: Responsible Observer: () Albumin [Mass/volume] in Blood by Bromocresol purple ( BCP) dye binding method 4.3 G/DL ALBUMIN [facility] ([facility]) Note: Responsible Observer: () ALKALINE PHOS 48 U/L ALKALINE PHOS [facility] ([facility]) Note: Responsible Observer: () Anion gap in Body fluid 12.0 mmol/L ANION GAP [facility] ([facility]) Note: Responsible Observer: () BUN 15 MG/DL BUN [facility] ([facility]) Note: Responsible Observer: () BUN/CREAT 19 BUN/CREAT [facility] ([facility]) Note: Responsible Observer: () Calcium [Moles/volume] in Urine collected for unspecified durati on 9.5 MG/DL CALCIUM [facility] ([facility]) Note: Responsible Observer: () Chloride [Moles/volume] in Serum, Plasma or Blood 103 mEq/L CHLORIDE [facility] ([facility]) Note: Responsible Observer: () CO2 24 MEQ/L CO2 [facility] ([facility]) Note: Responsible Observer: () COMPREHENSIVE METABOLIC PANEL See Note COMPRE HENSIVE METABOLIC PANEL [facility] ([facility]) Note: COMPREHENSIVE METABOLIC PANELR esponsible Observer: () Creatinine [Moles/volume] in Vitreous fluid 0.8 MG/DL CREATININE [facility] ([facility]) Note: Responsible Observer: () Globulin [Mass/time] in 24 hour Urine 2.5 GM/DL GLOBULIN [facility] ([facility]) Note: Responsible Observer: () Glucose [Mass/volume] in Urine collected for unspecified duratio n 184 MG/DL Above high normal GLUCOSE [facility] ([facility]) Note: Responsible Observer: () NON-AA GFR >60 mL/min NON-AA GFR [facility] ([facility]) Note: Responsible Observer: () Potassium [Mass/volume] in Blood 4.7 mEq/L POT ASSIUM [facility] ([facility]) Note: Responsible Observer: () SGOT/AST 21 U/L SGOT/AST [facility] ([facility]) Note: Responsible Observer: () SGPT/ALT 30 U/L SGPT/ALT [facility] ([facility]) Note: Responsible Observer: () Sodium [Moles/volume] in Serum, Plasma or Blood 139 mEq/L SODIUM [facility] ([facility]) Note: Responsible Observer: () TOTAL BILI <0.7 MG/DL TOTAL BILI [facility] ([facility]) Note: Responsible Observer: () TOTAL PROTEIN 6.8 G/DL TOTAL PROTEIN [facility] ([facility]) Note: Responsible Observer: () ID Date Data Source [id number] 08/12/2019 07:48:00 AM EST [facility] ([facility]) Name Value Range Interpretation Code Description Data Shelly rce(s) Supporting Document(s) Reported Physicians See Note Reported Physici ans [facility] ([facility]) Note: Reported Physicians:Ordering: Esha De La Garza AAttending: ESHA TALAMANTESConsulting: ESHA TALAMANTESCopy To: Esha Talamantes ID Date Data Source [id number] 08/12/2019 07:48:00 AM EST [facility] ([facility]) Name Value Range Interpretation Code Description Data Shelly rce(s) Supporting Document(s) CREAT UR 137.6 MG/DL Above high normal CREAT UR [facility]WK[facility] ([facility]) Note: Responsible Observer: (BLD) MA/CREAT RATIO 2.76 MCG/MG MA/CREAT RATIO JEMIMA TEJADA ([facility]) Note: The [place] [employer] ion states that Microalbuminemia is present if the Microalbumin/Creatinine ratio exceeds 30 mcg/mg. The threshold for Clinical Albuminuria is reached at 300 mcg/mg. The classification of a patient should be based upon at least 2 or 3 abnormal results on specimens collected within a 3 to 6 month timeframe.Responsible Observer: (BLD) MICROALBUMIN <12.00 MG/L Above high normal MICROALBUMIN GR [facility] Note: Responsible Observer: (BLD) ID Date Data Source [id number] 08/12/2019 07:48:00 AM EST [facility] ([facility]) Name Value Range Interpretation Code Description Data Shelly rce(s) Supporting Document(s) Reported Physicians See Note Reported Physici ans [facility] ([facility]) Note: Reported Physicians:Ordering: Esha De La Garza AAttending: ESHA TALAMANTESConsulting: ESHA TALAMANTESCopninfa To: Esha Talamantes ID Date Data Source [id number] 08/12/2019 07:48:00 AM [facility] ([facility]) Name Value Range Interpretation Code Description Data Shelly rce(s) Supporting Document(s) PSA 0.95 ng/mL PSA [facility] ([facility]) Note: BLDoPSA INTERP RETATIONBLDx The PSA [...] interchangeably.Responsible Observer: () ID Date Data Source [id number] 08/12/2019 07:48:00 AM [facility] ([facility]) Name Value Range Interpretation Code Description Data Shelly rce(s) Supporting Document(s) Reported Physicians See Note Reported Physici ans [place] ([facility]) Note: Reported Physicians:Ordering: Esha De La Garza AAttending: JUSTUS TALAMANTESYNConsulting: ARMINDA TALAMANTESCELYNCopy To: Esha Talamantes ID Date Data Source [id number] 08/12/2019 07:48:00 AM [facility] ([facility]) Name Value Range Interpretation Code Description Data Shelly rce(s) Supporting Document(s) Cholesterol [Moles/volume] in Pericardial fluid 177 MG/DL CHOLESTEROL [facility] ([facility]) Note: Responsible Observer: (BLD) CVE PANEL See Note CVE PANEL [facility] ([facility]) Note: LIPID PANELResponsible Observe r: (BLD) HDL 48 MG/DL HDL [facility] ([facility]) Note: Responsible Observer: (BLD) Cholesterol in LDL [Mass/volume] in Serum or Plasma by Direct as say 91 mg/dL LDL [facility] ([facility]) Note: Responsible Observer: (BLD) LDL/HDL 1.90 LDL/HDL [facility] ([facility]) Note: CVE RISK CHOL/HD L LDL/HDLMEN: 1/2 AVERAGE 3.43 1.00 AVERAGE 4.97 3.55 2X AVERAGE 9.55 6.25 3X AVERAGE 23.99 7.99WOMEN: 1/2 AVERAGE 3.27 1.47 AVERAGE 4.44 3.22 2X AVERAGE 7.05 5.03 3X AVERAGE 11.04 6.14Responsible Observer: (BLD) RISK FACTOR 3.7 RISK FACTOR [facility] ([facility]) Note: Responsible Observer: (BLD) TRIGLYCERIDES 272 MG/DL Above high normal TRIGLYCERIDES [facility] Note: Responsible Observer: (BLD) ID Date Data Source [id number] 08/12/2019 07:48:00 AM [facility] ([facility]) Name Value Range Interpretation Code Description Data Shelly rce(s) Supporting Document(s) Reported Physicians See Note Reported Physici ans [facility] ([facility]) Note: Reported Physicians:Ordering: Esha De La Garza AAttending: ESHA TALAMANTESConsulting: Alex TALAMANTES To: Esha Talamantes ID Date Data Source [id number] 08/12/2019 07:48:00 AM [facility] ([facility]) Name Value Range Interpretation Code Description Data Shelly rce(s) Supporting Document(s) Testosterone, Serum 137 ng/dL Below low normal Testostero ne, Serum [facility] ([facility]) Note: Adult male reference interval is b ased on a population ofhealthy nonobese males (BMI <30) between 19 and 39 years old.Silas, et.al. JCEM 2017,102;1161- 1173. PMID: [id number].Responsible Observer: (rfl) ID Date Data Source [id number] 08/13/2019 08:10:00 AM [facility] Name Value Range Interpretation Code Description Data Shelly rce(s) Supporting Document(s) Testosterone [Mass/volume] in Serum or Plasma 137 ng/dL [id number] L [facility] Adult male reference interval is based o n a population ofhealthy nonobese males (BMI <30) between 19 and 39 years old.Silas, et.al. JCEM 2017,102;8312-4560. PMID: [id number]. ID Date Data Source [id number] 08/12/2019 01:01:00 PM [facility] Name Value Range Interpretation Code Description Data Shelly rce(s) Supporting Document(s) CVE PANEL [facility] LIPID PANEL Cholesterol [Mass/volume] in Serum or Plasma 177 MG/DL 131 - 200 [facility] Deprecated Triglyceride [Mass/volume] in Serum or Plasma 272 MG/DL 3 5 - 160 H [facility] HDL 48 MG/DL 29 - 86 [facility] Cholesterol in LDL/Cholesterol in HDL [Mass Ratio] in Serum or Plasma 91 mg/dL 65 - 175 [facility] Cholesterol.total/Cholesterol in HDL [Mass Ratio] in Serum o r Plasma 3.7 3.4 - 4.9 [facility] LDL/HDL 1.90 1.00 - 3.55 [facility] CVE RISK CHOL/HDL LDL/HDLMEN: 1/2 AVERAGE 3.43 1.00 AVERAGE 4.97 3.55 2X AVERAGE 9.55 6.25 3X AVERAGE 23.99 7.99WOMEN: 1/2 AVERAGE 3.27 1.47 AVERAGE 4.44 3.22 2X AVERAGE 7.05 5.03 3X AVERAGE 11.04 6.14 ID Date Data Source [id number] 08/12/2019 12:41:00 PM [facility] Name Value Range Interpretation Code Description Data Shelly rce(s) Supporting Document(s) Prostate specific Ag [Mass/volume] in Serum or Plasma 0.95 ng/mL 0.00 - 4.00 [facility] \\BLDo\\PSA INTERPRETA TION\\BLDx\\ The PSA assay [...] be used interchangeably. ID Date Data Source [id number] 08/12/2019 12:10:00 PM [facility] Name Value Range Interpretation Code Description Data Shelly rce(s) Supporting Document(s) COMPREHENSIVE METABOLIC PANEL [facility] COMPREHENSIVE METABOLIC PANEL Sodium [Moles/volume] in Serum or Plasma 139 mEq/L 134 - 153 [facility] Potassium [Moles/volume] in Serum or Plasma 4.7 mEq/L 3.6 - 5.0 [facility] Chloride [Moles/volume] in Serum or Plasma 103 mEq/L 98 - 107 [facility] Carbon dioxide, total [Moles/volume] in Serum or Plasma 24 MEQ/L 22 - 30 [facility] Glucose [Mass/volume] in Serum or Plasma 184 MG/DL 65 - 110 H [facility] BUN 15 MG/DL 7 - 21 [facility] Creatinine [Mass/volume] in Serum or Plasma 0.8 MG/DL 0.7 - 1.5 [facility] BUN/CREAT 19 8 - 27 [facility] al Protein [Mass/volume] in Serum or Plasma 6.8 G/DL 6.3 - 8.2 [facility] Albumin [Mass/volume] in Serum or Plasma 4.3 G/DL 3.9 - 5.0 [facility] Globulin [Mass/volume] in Serum by calculation 2.5 GM/DL 2.4 - 3.2 [facility] A/G RATIO 1.7 0.8 - 2.0 [facility] Calcium [Mass/volume] in Serum or Plasma 9.5 MG/DL 8.4 - 10.2 [facility] Bilirubin.total [Mass/volume] in Serum or Plasma <0.7 MG/DL 0.2 - 1.3 [facility] Alkaline phosphatase [Enzymatic activity/volume] in Serum or Plasma 48 U/L 38 - 126 [facility] Aspartate aminotransferase [Enzymatic activity/volume] in Serum or Plasma 21 U/L 5 - 40 [facility] Alanine aminotransferase [Enzymatic activity/volume] in Seru m or Plasma 30 U/L 7 - 56 [facility] Anion gap 3 in Serum or Plasma 12.0 mmol/L 8.0 - 16.0 [facility] AGE 64 yrs [facility] al NON-AA GFR >60 mL/min [employer] ital AFR AMER GFR >60 mL/min [facility] Male GFR In terprentation [...] >32 mL/min Normal ID Date Data Source [id number] 08/12/2019 12:10:00 PM EST [facility] Name Value Range Interpretation Code Description Data Shelly rce(s) Supporting Document(s) CREAT UR 137.6 MG/DL 0.0 - 30.[address] [facility] pital MICROALBUMIN <12.00 MG/L 0.00 - 0.00 H [facility] MA/CREAT RATIO 2.76 MCG/MG 0.01 - 30.00 [facility] [employer] st ates that Microalbuminemia is present if the Microalbumin/Creatinine ratio exceeds 30 mcg/mg. The threshold for Clinical Albuminuria is reached at 300 mcg/mg. The classification of a patient should be based upon at least 2 or 3 abnormal results on specimens collected within a 3 to 6 month timeframe. ID Date Data Source [id number] 08/12/2019 12:03:00 PM [facility] Name Value Range Interpretation Code Description Data Shelly rce(s) Supporting Document(s) Creatine kinase [Enzymatic activity/volume] in Serum or Plasma 1 02 U/L 30 - 170 [facility] ID Date Data Source [id number] 07/09/2019 08:53:00 AM [facility] [address] [place] [address] PHONE: [phone] FAX: [phone] Name ..............: APRYL Ma Acct Number ...........................: [id number] ROOM. ............: TR-1A Number ............................: [id number] Stay type.........: E/R Discharge Date...............:07/07/19 Admit Date .....: 07/07/19 Admit Phys .............................: SIVA TOPETE Date of ..: 1955 Family Phys ...........................: VINITA HOOPER Phone..............: [phone] Age.................................:63 Film# ...............:[id number] Sex.................................:M Unsigned transcriptions are preliminary reports and do not represent a medical or legal document EKG [id number] COMPLETE:07/08/19 07:30 SAVAGE 11101 Please See Scanned Results. Name Value Range Interpretation Code Description Data Shelly rce(s) Supporting Document(s) ID Date Data Source [id number] 07/08/2019 09:58:00 AM EST [facility] [address] [place] [address] PHONE: [phone] FAX: [phone] Name .................. : APRYL Ma Acct Number.................. : [id number] ROOM. ................. : -1A MR Number ................... : [id number] Stay type ............. : E/R Discharge Date......... ... : 07/07/19 Admit Date ......... : 07/07/19 Admit Phys .................... : SIVA TOPETE Date of ....... : 1955 Family Phys ................... : VINITA HUNTCE Phone .................. : [phone] Age ................................ : 63 Film# .................. .:[id number] Sex ................................. : M Unsigned transcriptions are preliminary reports and do not represent a medical or legal document CT CERV SPINE W/O CONTRAS [id number] COMPLETE:07/07/19 13:35 80135 Reason(s): Pain CT STUDY OF THE CERVICAL [...] [place] via fax [address] [facility] [address] [place] [address] PHONE: [phone] FAX: [phone] Name .................. : APRYL Ma Acct Number.................. : [id number] ROOM. ................. : TR-1A MR Number ................... : [id number] Stay type ............. : E/R Discharge D ate......... ... : 07/07/19 Admit Date ......... : 07/07/19 Admit Phys .................... : SIVA TOPETE Date of ....... : 1955 Family Phys ................... : VINITA HOOPER Phone .................. : [phone] Age ................................ : 63 Film# .................. .:[id number] Sex ................................. : M Unsigned transcriptions are preliminary reports and do not represent a medical or legal document CT CERV SPINE W/O CONTRAS [id number] COMPLETE:07/07/19 13:35 26699 Reason(s): Pain Copy for: EMERGENCY DEPT via mode Copy for: 710 MED REC DISCHARGED Page 2 of 2 Name Value Range Interpretation Code Description Data Shelly rce(s) Supporting Document(s) ID Date Data Source [id number] 07/08/2019 09:54:00 AM EST [facility] [address] [place] [address] PHONE: [phone] FAX: [phone] Name .................. : APRYL aM Acct Number.................. : [id number] ROOM. ................. : TR-1A MR Number ................... : [id number] Stay type ............. : E/R Discharge Date......... ... : 07/07/19 Admit Date ......... : 07/07/19 Admit Phys .................... : SIVA TOPETE Date of ....... : 1955 Family Phys ................... : VINITA HOOPER Phone .................. : [phone] Age ................................ : 63 Film# .................. .:[id number] Sex ................................. : M Unsigned transcriptions are preliminary reports and do not represent a medical or legal document [place] [id number] COMPLETE:07/07/19 13:37 87573 Reason(s): Pain LEFT ELBOW SERIES: FINDINGS: No [...] rce(s) Supporting Document(s) ID Date Data Source [id number] 07/08/2019 09:54:00 AM EST [facility] [address] [place] [address] PHONE: [phone] FAX: [phone] Name .................. : APRYL Ma Acct Number.................. : [id number] ROOM. ................. : [facility] MR Number ................... : [id number] Stay type ............. : E/R Discharge Date......... ... : 07/07/19 Admit Date ......... : 07/07/19 Admit Phys .................... : SIVA TOPETE Date of ....... : 1955 Family Phys ................... : VINITA HOOPER Phone .................. : [phone] Age ................................ : 63 Film# .................. .:[id number] Sex ................................. : M Unsigned transcriptions are preliminary reports and do not represent a medical or legal document CHEST 2 VIEWS [id number] COMPLETE:07/07/19 13:35 51042 Reason(s): Congestion CHEST X-RAY: 2-VIEWS HISTORY: Congestion [...] rce(s) Supporting Document(s) ID Date Data Source [id number] 07/07/2019 01:18:00 PM EST [facility] 1 OrderSheet [facility] Emergency Department [address] [place] [address] Phone #: ext- [phone] 07/07/2019 13:01 Patient: [...] RN PA;Blood Culture STAT 13:35 07/07/2019 13:46 [id number] X2 (Sched Faustino Paris RN13:35 07/07/2019) PA;Blood Culture STAT 13:35 07/07/2019 13:46 [id number] X2 (Sched Faustino sparrow RN13:45 07/07/2019) PA;Lactic Acid STAT 13:35 07/07/2019 13:46 Edna Paris RN PA;PT/PTT STAT 13:35 07/07/2019 13:46 Edna Paris RN PA;Urinalysis (Clean STAT 13:35 07/07/2019 15:25 DorisCatch) Faustino Paris RN PA;Sed. Rate STAT 13:35 07/07/2019 13:46 Edna Paris RN PA;CRP STAT 13:35 07/07/2019 13:46 Edna Paris RN PA;Troponin-T STAT 13:35 07/07/2019 13:46 Edna Paris RN PA; 2 OrderSheet [facility] Emergency Department [address] [place] [address] Phone #: ext- [phone] 07/07/2019 13:01 Patient: [...] 15:30 Edna Paris RN PA; 3 OrderSheet [facility] Emergency Department [address] [place] [address] Phone #: ext- [phone] 07/07/2019 13:01 Patient: TOLU RATLIFF Sex: M : 1955 Age: 63y[Electronically signed by Edna Paris RN (15:38 07/07/2019)][Electronically signed by Faustino Young (17:59 07/07/2019)][Electronically locked by Edna Paris RN (15:38 07/07/2019)] Name Value Range Interpretation Code Description Data Shelly rce(s) Supporting Document(s) ID Date Data Source [id number] 07/07/2019 01:18:00 PM EST [facility] 1 Medication Reconciliation Report [facility] Emergency Department [address] [place], [place] [address] Phone #: ext- [phone] 07/07/2019 13:01 Patient: TOLU RATLIFF Sex: M [...] pack. Refills: 0. Substitution permitted.Pharmacy - [facility][id number] - [address] [place], [place] [id number]. .Bactrim DS 800 mg-160 mg tablet Take 1 tablet twice a day for 10 days -- Dispense 20 tablet. Refills: 2 Medication Reconciliation Report [facility] Emergency Department [address] [place] [address] Phone #: ext- [phone] 07/07/2019 13:01 Patient: TOLU RATLIFF Sex: M : 1955 Age: 63y0. Substitution permitted.Pharmacy - [facility][id number] - [address] [facility] ; [place], [place] [id number]. . -- FABRICE Pena Name Value Range Interpretation Code Description Data Shelly rce(s) Supporting Document(s) ID Date Data Source [id number] 07/07/2019 01:18:00 PM EST [facility] 1 Medication Administration Record [facility] Emergency Department [address] [place] [address] Phone #: [phone]- [phone] 07/07/2019 13:01 Patient: TOLU RATLIFF Sex: M [...] rce(s) Supporting Document(s) ID Date Data Source [id number] 07/07/2019 01:18:00 PM EST [facility] 1 General Instructions [facility] Emergency Department [address] [place] [address] Phone #: ext- [phone] 07/07/2019 13:01 Patient: [...] tomorrow AM.Dispense 1 pack. Refills: 0. Substitution permitted.[facility] #[id number] - [address] [place], [place] [id number]. FaxNumber: .Bactrim DS 800 mg-160 mg tablet Take 1 tablet twice a day for 10 days -- Dispense 20 tablet. Refills:0. Substitution permitted.[facility] #[id number] - [address] [place], [place] [id number]. .Follow-up:Follow up with your doctor Monday. Call for an appointment. Reason for referral: evaluation, treatment andreferral to Orthopedics for left elbow burisitis if no improvement.. Summary of care provided to patient.Understanding of the discharge instructions verbalized by patient. ADDITIONAL INFORMATIONBursitis 2 General Instructions [facility] Emergency Department [address] [place] [address] Phone #: [phone]- [phone] 07/07/2019 13:01 Patient: TOLU RATLIFF Sex: M [...] wrap or splint wet. You may take bxxz-zge-qnkefke pain medicine to treat pain and inflammation, [...] to flare up again. 3 General Instructions [facility] Emergency Department [address] [place] [address] Phone #: ext- [phone] 07/07/2019 13:01 Patient: TOLU RATLIFF Sex: M : 1955 Age: 63yWhen to seek medical adviceCall your healthcare provider right away if any of these occur: Redness or warmth over the painful area Increasing pain or swelling at the joint Fever of 100.4F (38C) or above lasting for 24 to 48 hours, or as advised Chills [id number] [employer]. [address] [place] [address]. All rights reserved. This information is not [...] apply an elastic bandage: 4 General Instructions [facility] Emergency Department [address] [place] [address] Phone #: ext- [phone] 07/07/2019 13:01 [id number] Sex: M : 1955 Age: 63y Check [...] doesn't go away after bandage is removed [id number] [employer]. [address] [place] [address], [place] [address]. All rights reserved. This information is not intended as asubstitute for professional medical care. Always follow your healthcare professional's instructions. You have been given the following additional information: Bursitis TARYN Wrap 5 General Instructions [facility] Emergency Department [address] [place] [address] Phone #: ext- [phone] 07/07/2019 13:01 Patient: TOLU RATLIFF Sex: M : 1955 Age: 63y(Electronically signed by FABRICE Pena 07/07/2019 17:59) Name Value Range Interpretation Code Description Data Shelly rce(s) Supporting Document(s) ID Date Data Source [id number] 07/07/2019 01:18:00 PM EST [facility] 1 Clinical Report - Nurses [facility] Emergency Department [address] [place] [address] Phone #: ext [phone] 07/07/2019 13:01 Patient: TOLU RATLIFF Sex: M [...] RN.ADDITIONAL SURGERIES: 2 Clinical Report - Nurses [facility] Emergency Department [address] [place] [address] Phone #: ext- [phone] 07/07/2019 13:01 [id number] Sex: M : 1955 Age: 63y Back [...] risk identified. --13:12 07/07/19 Edna Paris RN.PHYSICAL BMRRIWSTLH37:12 07/07/19. Ambulatory to room.GENERAL / NEURO / [...] Paris RN 3 Clinical Report - Nurses [facility] Emergency Department [address] [place] [address] Phone #: ext- [phone] 07/07/2019 13:01 Patient: TOLU RATLIFF Sex: M [...] to radiology and CT by wheelchair with interventional radiology technologist. --14:38 07/07/19 Edna Paris RN 14:38 07/07/19. Patient returned from radiology and CT by wheelchair with interventional radiology technologist. --14:38 07/07/19 Edna Paris RN 14:50 07/07/2019 [...] F. Pain level now 10. --15:35 07/07/19 [place] maintenance advisor, Chema, ER Tech1 15:37 07/07/19. Condition at departure: improved and stable. No learning barriers present. Discharge instructions provided and reviewed with the patient. Reviewed medication(s) side effects, precautions, dosing and course information. Prescription(s) sent electronically to pharmacy (Medrol, Bactrim DS). Patient verbalized understanding. Written instructions provided in Cameroonian. The patient was discharged home. He left ambulatory and via private vehicle. Patient driving. --15:38 07/07/19 Edna Paris RN.Locked/Released at 07/07/2019 15:38 by Edna Paris RN Name Value Range Interpretation Code Description Data Shelly rce(s) Supporting Document(s) ID Date Data Source [id number] 07/07/2019 01:18:00 PM [facility] 1 Clinical Report - Physicians/Mid Levels [facility] Emergency Department [address] [place] [address] Phone #: ext- [phone] 07/07/2019 13:01 Patient: [...] hives). 2 Clinical Report - Physicians/Mid Levels [facility] Emergency Department [address] [place] [address] Phone #: ext- [phone] 07/07/2019 13:01 Patient: TOLU RATLIFF Sex: M [...] 2.0) 3 Clinical Report - Physicians/Mid Levels [facility] Emergency Department [address] [place] [address] Phone #: ext- [phone] 07/07/2019 13:01 Patient: [...] Male GFR Interprentation 20-49 yrs >60 mL/min Ugmkrv60-69 yrs >56 mL/min Normal 60-69 yrs >49 mL/min Normal 70-79yrs>42 mL/min Normal 80 and above >35 mL/min Normal Female GFRInterpretation 20-39 yrs >60 mL/min Normal 40-49 yrs >58 mL/minNormal 50-59 yrs >51 mL/min Normal 60-69 yrs >45 mL/min Cqecvf12-95 yrs >39 mL/min Normal 80 and above [...] VenousThrombosis, Pulmonary Embolus, Tissue heart valves, Acute [place] Atrial Fibrillation, Valvular heart diseaseand recurrent Systemic Embolism. -International Normalized Ratio (INR): 2.5 - 3.5 forMechanical Prosthetic valve. \\BLDo\\PTT INTERPRETATION\\BLDx\\Critical results for patients not on therapy: >50 seconds Critical results for patients on therapy:>119 seconds Therapeutic range for patients on therapy: 58 - 90 seconds Coag studies fromline draws may not be accurate due to Heparin and other interferences.CRP: (RYAN: 07/07/2019 14:01) ( [facility] 07/07/2019 14:40) Final results 4 Clinical Report - Physicians/Mid Levels [facility] Emergency Department [address] [place] [address] Phone #: ext- [phone] 07/07/2019 13:01 Patient: [...] prn. 5 Clinical Report - Physicians/Mid Levels [facility] Emergency Department [address] [place] [address] Phone #: ext [phone] 07/07/2019 13:01 Patient: TOLU RATLIFF Sex: M : 1955 Age: 63y Serevent Diskus Inhalation : 2 puffs daily. Prescription Medications: Medrol (Chucky) 4 mg tablets in a dose pack Take 1 tablet as directed for 6 days -- start tomorrow AM. Dispense 1 pack. Refills: 0. Substitution permitted. [id number] [address] [place], [place] [phone]. . Bactrim DS 800 mg-160 mg tablet Take 1 tablet twice a day for 10 days -- Dispense 20 tablet. Refills: 0. Substitution permitted. [id number] [address] [place], [place] [phone]. FaxNumber: [phone]. Follow-up: Follow up with your doctor Monday. Call for an appointment. Reason for referral: evaluation, treatment and referral to Orthopedics for left elbow burisitis if no improvement.. Summary of care provided to patient. Understanding of the discharge instructions verbalized by patient.(Electronically signed by FABRICE Pena 07/07/2019 17:59) Name Value Range Interpretation Code Description Data Shelly rce(s) Supporting Document(s) ID Date Data Source [id number] 07/07/2019 03:30:00 PM EST [facility] ([facility]) Name Value Range Interpretation Code Description Data Shelly rce(s) Supporting Document(s) Reported Physicians See Note Reported Physici ans [facility] ([facility]) Note: Reported Physicians:Ordering: Sandy UMANAending: Liyah PANIAGUAulting: ESHA TALAMANTESCopninfa To: Faustino YoungCopninfa To: YUSEF PANIAGUAANCopy To: Esha Talamantes ID Date Data Source [id number] 07/07/2019 03:30:00 PM EST [facility] ([facility]) Name Value Range Interpretation Code Description Data Shelly rce(s) Supporting Document(s) Bilirubin [Presence] in Peritoneal fluid NEG BILIRUBIN [facility] ([facility]) Note: Responsible Observer: () Blood [Presence] in Urine by Visual NEG BLOOD [facility] ([facility]) Note: Responsible Observer: () Clarity of Pleural fluid from Fetus clear CLARITY [facility] ([facility]) Note: Responsible Observer: () Color of Exudate from wound yellow COLOR [facility] ([facility]) Note: Responsible Observer: () Glucose [Mass/volume] in Urine collected for unspecified duration N ORM GLUCOSE [facility] ([facility]) Note: Responsible Observer: () KETONE NEG KETONE [facility] ([facility]) Note: Responsible Observer: () LEUK EST NEG LEUK EST [facility] ([facility]) Note: Responsible Observer: () MICROSCOPIC Not Indicate MICROSCOPIC [facility] ([facility]) Note: Responsible Observer: () Nitrite [Presence] in Urine by Test strip NEG NITRITE [facility] ([facility]) Note: Responsible Observer: () pH of Vaginal fluid by Test strip 5 pH [facility] ([facility]) Note: Responsible Observer: () Protein [Mass/volume] in Saliva (oral fluid) NEG PROTEIN [facility] ([facility]) Note: Responsible Observer: () SPEC GRAVITY 1.030 SPEC GRAVITY [facility] ([facility]) Note: Responsible Observer: () Urobilinogen [Presence] in Urine by Automated test strip NOR UROBILINOGEN [facility] ([facility]) Note: Responsible Observer: () SOURCE R SOURCE [facility] ([facility]) Note: Responsible Observer: () URINALYSIS See Note URINALYSIS [facility] ([facility]) Note: URINALYSISResponsible Observer : () ID Date Data Source [id number] 07/07/2019 03:53:00 PM [facility] Name Value Range Interpretation Code Description Data Shelly rce(s) Supporting Document(s) URINALYSIS [facility] URINALYSIS SOURCE R [facility] COLOR yellow NORMAL: Yellow [facility] CLARITY clear NORMAL: Clear [facility] Specific gravity of Urine by Test strip 1.030 1.001 - 1.030 [facility] pH 5 5 - 9 [facility] Glucose [Mass/volume] in Urine by Test strip NORM NORMAL: Negat [facility] Bilirubin.total [Presence] in Urine by Test strip NEG NORMAL: Negative [facility] Ketones [Presence] in Urine by Test strip NEG NORMAL: Negative [facility] Protein [Mass/volume] in Urine by Test strip NEG NORMAL: Negat [facility] Nitrite [Presence] in Urine by Test strip NEG NORMAL: Negative [facility] BLOOD NEG NORMAL: Negative [facility] Leukocyte esterase [Presence] in Urine by Test strip NEG JOSE L: Negative [facility] Urobilinogen [Mass/volume] in Urine by Test strip NOR less madeleine n 1.0 mg/dL [facility] MICROSCOPIC Not Indicate [facility] ID Date Data Source [id number] 07/08/2019 09:43:00 AM [facility] CELIA @ [facility] NOTIFIED 07/08/19 @ 0900 RMMLE FT ELBOW BURSADoes the specimen need to be recollected?: YREASON REJECTED:: WRONG SWAB COLLECTEDTEST(S) ORDERED:: ANAEROBIC CULTURE LEFT ELBOW BURSA LEFT ELBOW BURSA Name Value Range Interpretation Code Description Data Shelly rce(s) Supporting Document(s) Laboratory ANAEROBIC CULTURE [facility] studies (set) WRONG SWAB COLLECTED [facility] One or more of the tests that youordered cannot be performed.Please recollect, reorder and resubmit. ID Date Data Source [id number] 07/09/2019 07:21:00 AM [facility] CELIA @ [facility] NOTIFIED 07/08/19 @ 0900 RMMLE FT ELBOW BURSADoes the specimen need to be recollected?: YREASON REJECTED:: WRONG SWAB COLLECTEDTEST(S) ORDERED:: ANAEROBIC CULTURE LEFT ELBOW BURSA LEFT ELBOW BURSA Name Value Range Interpretation Code Description Data Shelly rce(s) Supporting Document(s) Gram stain result No organisms seen [facility] ID Date Data Source [id number] 07/12/2019 10:33:00 AM [facility] CELIA @ [facility] NOTIFIED 07/08/19 @ 0900 RMMLE FT ELBOW BURSADoes the specimen need to be recollected?: YREASON REJECTED:: WRONG SWAB COLLECTEDTEST(S) ORDERED:: ANAEROBIC CULTURE LEFT ELBOW BURSA LEFT ELBOW BURSA Name Value Range Interpretation Code Description Data Shelly rce(s) Supporting Document(s) Bacteria identified in Wound by Aerobe culture LEFT ELBOW [facility] Culture results No growth at 4 days [facility] ID Date Data Source [id number] 07/07/2019 03:17:00 PM ALENA JOHNSON ([facility]) Name Value Range Interpretation Code Description Data Shelly rce(s) Supporting Document(s) Reported Physicians See Note Reported Israel JOHNSON ([facility]) Note: Reported Physicians:Ordering: Sandy UMANAending: MACARIOS BRYANConsulting: JUSTUS TALAMANTESYNCopy To: Azeb Young To: MACARIOS BRYANCopy To: Esha Talamantes ID Date Data Source [id number] 07/07/2019 03:17:00 PM ALENA ELIZABETH ([facility]) Name Value Range Interpretation Code Description Data Shelly rce(s) Supporting Document(s) GRAM STAIN See Note GRAM STAIN ELIZABETH ([facility]) Note: GRAM STAIN: TEST PERFORMED AT [facility] [address] [place] [address] CLIA# [id number] SEE SCANNED REPORT COMMENT: Respo nsible Observer: (MD) ID Date Data Source [id number] 07/07/2019 03:17:00 PM EST ELIZABETH ([facility]) Name Value Range Interpretation Code Description Data Shelly rce(s) Supporting Document(s) Reported Physicians See Note Reported Physici ans ELIZABETH ([facility]) Note: Reported Physicians:Ordering: Sandy UMANAending: Liyah PANIAGUAulting: Alex TALAMANTES To: Azeb Young To: Trina PANIAGUA To: Esha Talamantes ID Date Data Source [id number] 07/07/2019 03:17:00 PM EST ELIZABETH ([facility]) Name Value Range Interpretation Code Description Data Shelly rce(s) Supporting Document(s) CULTURE WOUND See Note CULTURE WOUND ELIZABETH ([facility]) Note: .WOUND CULTURE_{ SPECIM EN SOURCE : Result: TEST PERFORMED AT [place] [id number] CLIA# [id number] SEE SCANNED REPORT Responsible Observer: (DW) ID Date Data Source [id number] 07/12/2019 02:08:00 PM EST [facility] Name Value Range Interpretation Code Description Data Shelly rce(s) Supporting Document(s) CULTURE WOUND [facility] spital .WOUND CULTURE_{ SPECIMEN SHELLY RCE : Result: TEST PERFORMED AT [address] [id number] CLIA# [id number] SEE SCANNED REPORT ID Date Data Source [id number] 07/09/2019 01:14:00 PM [facility] Name Value Range Interpretation Code Description Data Shelly rce(s) Supporting Document(s) GRAM STAIN [facility] GRAM STAIN: TEST PERFORMED AT [facility] [address] [place] [address] CLIA# [id number] SEE SCANNED REPORT COMMENT: ID Date Data Source [id number] 07/13/2019 10:38:00 AM EST [facility] [address] Name Value Range Interpretation Code Description Data Shelly rce(s) Supporting Document(s) Bacteria identified in Blood by Culture [facility] NO GROWTH AFTER 5 DAYS ID Date Data Source [id number] 07/07/2019 02:56:00 PM [facility] ([facility]) Name Value Range Interpretation Code Description Data Shelly rce(s) Supporting Document(s) Reported Physicians See Note Reported Terii karoline JOHNSON ([facility]) Note: Reported Physicians:Ordering: Sandy UMANAending: Liyah PANIAGUAulting: Alex TALAMANTES To: Azeb Young To: Trina PANIAGUA To: Esha Talamantes ID Date Data Source [id number] 07/07/2019 02:56:00 PM EST ELIZABETH ([facility]) Name Value Range Interpretation Code Description Data Shelly rce(s) Supporting Document(s) CULTURE BLOOD See Note CULTURE BLOOD [place] ([facility]) Note: _CULTURE BLOOD_ TEST P ERFORMED AT [address] [address] CLIA# [id number] SEE SCANNED REPORT{ PRELIMResponsible Observer: (GBT) ID Date Data Source [id number] 07/14/2019 03:41:00 AM [facility] Name Value Range Interpretation Code Description Data Shelly rce(s) Supporting Document(s) CULTURE BLOOD [facility] _CULTURE BLOOD_ TEST PERFORM ED AT [address] [address] CLIA# [id number] SEE SCANNED REPORT{ PRELIM ID Date Data Source [id number] 07/07/2019 02:01:00 PM EST [place] ([facility]) Name Value Range Interpretation Code Description Data Shelly rce(s) Supporting Document(s) Reported Physicians See Note Reported Physici ans [place] ([facility]) Note: Reported Physicians:Ordering: Sandy UMANAending: YUSEF PANIAGUAANConsulting: VINITA JOCELYNCopninfa To: Faustino YoungCopninfa To: SIVA BRYANCopy To: Arminda Talamantescelyn ID Date Data Source [id number] 07/07/2019 02:01:00 PM EST [place] ([facility]) Name Value Range Interpretation Code Description Data Shelly rce(s) Supporting Document(s) SED RATE 1 mm/hr SED RATE ELIZABETH ([facility]) Note: Responsible Observer: () SED RATE REENTER 1 [facility] ([facility]) Note: Responsible Observer: () ID Date Data Source [id number] 07/07/2019 02:01:00 PM EST ELIZABETH ([facility]) Name Value Range Interpretation Code Description Data Shelly rce(s) Supporting Document(s) Reported Physicians See Note Reported Physici ans [place] ([facility]) Note: Reported Physicians:Ordering: CHRISTIANE UMANADEAttending: VENERUS, BRYANConsulting: VINITA, JOCELYNCopy To: Christiane YoungdeCopy To: VENERUS, BRYANCopy To: Vinita, Esha ID Date Data Source [id number] 07/07/2019 02:01:00 PM EST ELIZABETH ([facility]) Name Value Range Interpretation Code Description Data Shelly rce(s) Supporting Document(s) LACTIC ACID 3.0 MMOL/L Above high normal LACTIC ACID [facility] ([facility]) Note: Responsible Observer: () ID Date Data Source [id number] 07/07/2019 02:01:00 PM EST [place] ([facility]) Name Value Range Interpretation Code Description Data Shelly rce(s) Supporting Document(s) Reported Physicians See Note Reported Physici ans [place] ([facility]) Note: Reported Physicians:Ordering: FAUSTINO UMANAAttending: VENERUS, BRYANConsulting: VINITA, JOCELYNCopy To: Faustino YoungCopy To: SRAVANTHIRUS, BRYANCopy To: VinitaArmindaEsha ID Date Data Source [id number] 07/07/2019 02:01:00 PM EST ELIZABETH ([facility]) Name Value Range Interpretation Code Description Data Shelly rce(s) Supporting Document(s) INR in Blood by Coagulation assay 0.92 Below low nor mal INR [place] ([facility]) Note: Responsible Observer: () PROTIME 12.5 SECONDS PROTIME [place] ([facility]) Note: Responsible Observer: () PTT 27.1 SECONDS PTT [place] ([facility]) Note: \\BLD o\\INR INTERPRETATION\\BLDx Therapeutic range for Coumadin and related oral anticoagulants. - International Normalized Ratio (INR): 2.0 - 3.0 for Venous Thrombosis, Pulmonary Embolus, Tissue heart valves, Acute OK Atrial Fibrillation, Valvular heart disease and recurrent [...] interferences.Responsible Observer: () ID Date Data Source [id number] 07/07/2019 02:01:00 PM EST ELIZABETH ([facility]) Name Value Range Interpretation Code Description Data Shelly rce(s) Supporting Document(s) Reported Physicians See Note Reported Physici ans ELIZABETH ([facility]) Note: Reported Physicians:Ordering: Sandy UMANAending: RACHEL PANIAGUAonsulting: JUSTUS TALAMANTESYNCopninfa To: Azeb Young To: YUSEF PANIAGUAANCopy To: Esha Talamantes ID Date Data Source [id number] 07/07/2019 02:01:00 PM EST ELIZABETH ([facility]) Name Value Range Interpretation Code Description Data Shelly rce(s) Supporting Document(s) #BASO 0.04 10\\^3/uL #BASO ELIZABETH ([facility]) Note: Responsible Observer: () #EOS 0.18 10\\^3/uL #EOS ELIZABETH ([facility]) Note: Responsible Observer: () #IG 0.04 10\\^3/uL #IG ELIZABETH ([facility]) Note: Responsible Observer: () #LYMPH 2.04 10\\^3/uL #LYMPH ELIZABETH ([facility]) Note: Responsible Observer: () #MONO 0.87 10\\^3/uL #MONO ELIZABETH ([facility]) Note: Responsible Observer: () #NEUT 8.34 10\\^3/uL Above high normal #NEUT [place] ([facility]) Note: Responsible Observer: () #NRBC 0.00 10\\^3/uL #NRBC ELIZABETH ([facility]) Note: Responsible Observer: () %NRBC 0.0 % %NRBC ELIZABETH ([facility]) Note: Responsible Observer: () %IG 0.3 % Above high normal %IG ELIZABETH ([facility]) Note: Responsible Observer: () CBC W/AUTOMATED DIFF See Note CBC W/AUTOMATED DIFF [place] ([facility]) Note: COMPLETE BLOOD COUNTResponsibl e Observer: () BASO 0.3 % BASO ELIZABETH ([facility]) Note: Responsible Observer: () EOS 1.6 % EOS ELIZABETH ([facility]) Note: Responsible Observer: () Hematocrit [Pure volume fraction] of Blood by Automated count 47.4 % HEMATOCRIT [place] ([facility]) Note: Responsible Observer: () LYMPH 17.7 % Below low normal LYMPH ELIZABETH ([facility]) Note: Responsible Observer: () Hemoglobin [Mass/volume] in Mixed venous blood by Oximetry 15.9 g/d L HEMOGLOBIN [place] ([facility]) Note: Responsible Observer: () MANUAL DIFF NOT INDICATED MANUAL DIFF [place] ([facility]) Note: Responsible Observer: () MCH 30.4 pg MCH ELIZABETH ([facility]) Note: Responsible Observer: () MCHC 33.5 g/dL MCHC [place] ([facility]) Note: Responsible Observer: () MCV 90.6 fL MCV [place] ([facility]) Note: Responsible Observer: () MONO 7.6 % MONO [place] ([facility]) Note: Responsible Observer: () NEUT 72.5 % NEUT [place] ([facility]) Note: Responsible Observer: () MPV 9.2 fL MPV [place] ([facility]) Note: Responsible Observer: () Platelets [#/area] in Blood by Microscopy high power field 217 10\\^ 3/uL PLATELETS [place] ([facility]) Note: Responsible Observer: () RBC 5.23 10\\^6/uL RBC [place] ([facility]) Note: Responsible Observer: () RBC MORPH NOT INDICATED RBC MORPH ELIZABETH ([facility]) Note: Responsible Observer: SUSAN) RDW 12.8 % RDW ELIZABETH ([facility]) Note: Responsible Observer: () WBC 11.5 10\\^3/uL Above high normal WBC WILMER ALEX ([facility]) Note: Responsible Observer: () ID Date Data Source [id number] 07/07/2019 02:01:00 PM EST ELIZABETH ([facility]) Name Value Range Interpretation Code Description Data Shelly rce(s) Supporting Document(s) Reported Physicians See Note Reported Physici ans [place] ([facility]) Note: Reported Physicians:Ordering: FAUSTINO UMANAAttending: SRAVANTHIRUS, YUSEFANConsulting: VINITA, JOCELYNCopy To: Faustino YoungCopy To: VENERUS, BRYANCopy To: Vinita, Esha ID Date Data Source [id number] 07/07/2019 02:01:00 PM EST ELIZABETH ([facility]) Name Value Range Interpretation Code Description Data Shelly rce(s) Supporting Document(s) TROPONIN T 0.01 NG/ML TROPONIN T [place] ([facility]) Note: TROPONIN T0.1 ng/ml Recommended as the clinical threshold value forTroponin T.Responsible Observer: SUSAN) ID Date Data Source [id number] 07/07/2019 02:01:00 PM EST ELIZABETH ([facility]) Name Value Range Interpretation Code Description Data Shelly rce(s) Supporting Document(s) Reported Physicians See Note Reported Physici ans [place] ([facility]) Note: Reported Physicians:Ordering: FAUSTINO UMANAAttending: VENERUS, YUSEFANConsulting: VINITA, JOCELYNCopy To: Christiane YoungdeCopy To: VENERUS, BRYANCopy To: Vinita, Esha ID Date Data Source [id number] 07/07/2019 02:01:00 PM EST ELIZABETH ([facility]) Name Value Range Interpretation Code Description Data Shelly rce(s) Supporting Document(s) A/G RATIO 1.8 A/G RATIO [place] ([facility]) Note: Responsible Observer: () AFR AMER GFR >60 mL/min AFR AMER GFR [place] ([facility]) Note: Male GFR Interprentation 20- 49 [...] 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 63 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 AGE ELIZABETH ([facility]) Note: Responsible Observer: () Albumin [Mass/volume] in Blood by Bromocresol purple ( BCP) dye binding method 4.8 G/DL ALBUMIN [place] ([facility]) Note: Responsible Observer: () ALKALINE PHOS 55 U/L ALKALINE PHOS ELIZABETH ([facility]) Note: Responsible Observer: () BUN 15 MG/DL BUN ELIZABETH ([facility]) Note: Responsible Observer: () Anion gap in Body fluid 15.0 mmol/L ANION GAP ELIZABETH ([facility]) Note: Responsible Observer: () BUN/CREAT 19 BUN/CREAT [place] ([facility]) Note: Responsible Observer: () Calcium [Moles/volume] in Urine collected for unspecified durati on 10.6 MG/DL Above high normal CALCIUM ELIZABETH ([facility]) Note: Responsible Observer: () Chloride [Moles/volume] in Serum, Plasma or Blood 102 mEq/L CHLORIDE ELIZABETH ([facility]) Note: Responsible Observer: () CO2 24 MEQ/L CO2 ELIZABETH ([facility]) Note: Responsible Observer: () COMPREHENSIVE METABOLIC PANEL See Note COMPRE HENSIVE METABOLIC PANEL [place] ([facility]) Note: COMPREHENSIVE METABOLIC PANELR esponsible Observer: () Creatinine [Moles/volume] in Vitreous fluid 0.8 MG/DL CREATININE ELIZABETH ([facility]) Note: Responsible Observer: () Globulin [Mass/time] in 24 hour Urine 2.7 GM/DL GLOBULIN [place] ([facility]) Note: Responsible Observer: () Glucose [Mass/volume] in Urine collected for unspecified duratio n 120 MG/DL Above high normal GLUCOSE [place] ([facility]) Note: Responsible Observer: () NON-AA GFR >60 mL/min NON-AA GFR [place] ([facility]) Note: Responsible Observer: () Potassium [Mass/volume] in Blood 4.3 mEq/L POT ASSIUM ELIZABETH ([facility]) Note: Responsible Observer: () SGOT/AST 26 U/L SGOT/AST [place] ([facility]) Note: Responsible Observer: () Sodium [Moles/volume] in Serum, Plasma or Blood 141 mEq/L SODIUM [place] ([facility]) Note: Responsible Observer: () SGPT/ALT 45 U/L SGPT/ALT [place] ([facility]) Note: Responsible Observer: () TOTAL BILI 0.7 MG/DL TOTAL BILI ELIZABETH ([facility]) Note: Responsible Observer: () TOTAL PROTEIN 7.5 G/DL TOTAL PROTEIN [place] ([facility]) Note: Responsible Observer: () ID Date Data Source [id number] 07/07/2019 02:01:00 PM EST [place] ([facility]) Name Value Range Interpretation Code Description Data Shelly rce(s) Supporting Document(s) Reported Physicians See Note Reported Physici ans [place] ([facility]) Note: Reported Physicians:Ordering: Sandy UMANAending: Liyah PANIAGUAulting: Alex TALAMANTES To: Azeb Young To: Trina PANIAGUA To: Esha Talamantes ID Date Data Source [id number] 07/07/2019 02:01:00 PM EST [place] ([facility]) Name Value Range Interpretation Code Description Data Shelly rce(s) Supporting Document(s) CRP-HS 1.00 MG/L CRP-HS [place] ([facility]) Note: CDC/[facility] HS-CRP CUT-OFF : RELATIVE RISK: <1.0 mg/L Low 1.0 - 3.0 mg/L Average >3.0 mg/L High Optimally, the average of HS-CRP results repeated two weeks apart should be used for risk assessment.Responsible Observer: SUSAN) ID Date Data Source [id number] 07/07/2019 02:01:00 PM [facility] ([facility] Name Value Range Interpretation Code Description Data Shelly rce(s) Supporting Document(s) Reported Physicians See Note Reported Physici ans [place] ([facility]) Note: Reported Physicians:Ordering: Sandy UMANAending: RACHEL PANIAGUAonsulting: ESHA TALAMANTESCopninfa To: Azeb Young To: YUSEF PANIAGUAANCopy To: Esha Talamantes ID Date Data Source [id number] 07/07/2019 02:01:00 PM [facility] ([facility] Name Value Range Interpretation Code Description Data Shelly rce(s) Supporting Document(s) CULTURE BLOOD See Note CULTURE BLOOD [place] ([facility]) Note: _CULTURE BLOOD_ [place] [address] CLIA# [id number] SEE SCANNED REPORT{ PRELIMResponsible Observer: JOSE) ID Date Data Source [id number] 07/14/2019 03:40:00 AM [facility] Name Value Range Interpretation Code Description Data Shelly rce(s) Supporting Document(s) CULTURE BLOOD [facility] _CULTURE BLOOD_ TEST PERFORM ED AT [address] [address] CLIA# [id number] SEE SCANNED REPORT{ PRELIM ID Date Data Source [id number] 07/07/2019 04:00:00 PM [facility] Name Value Range Interpretation Code Description Data Shelly rce(s) Supporting Document(s) Erythrocyte sedimentation rate by Westergren method 1 mm/hr 0 - 20 [facility] SED RATE REENTER 1 [facility] ID Date Data Source [id number] 07/07/2019 02:42:00 PM EST [facility] Name Value Range Interpretation Code Description Data Shelly rce(s) Supporting Document(s) COMPREHENSIVE METABOLIC PANEL [facility] COMPREHENSIVE METABOLIC PANEL Sodium [Moles/volume] in Serum or Plasma 141 mEq/L 134 - 153 [facility] Potassium [Moles/volume] in Serum or Plasma 4.3 mEq/L 3.6 - 5.0 [facility] Chloride [Moles/volume] in Serum or Plasma 102 mEq/L 98 - 107 [facility] Carbon dioxide, total [Moles/volume] in Serum or Plasma 24 MEQ/L 22 - 30 [facility] Glucose [Mass/volume] in Serum or Plasma 120 MG/DL 65 - 110 H [facility] BUN 15 MG/DL 7 - 21 [facility] Creatinine [Mass/volume] in Serum or Plasma 0.8 MG/DL 0.7 - 1.5 [facility] BUN/CREAT 19 8 - 27 [facility] Protein [Mass/volume] in Serum or Plasma 7.5 G/DL 6.3 - 8.2 [facility] Albumin [Mass/volume] in Serum or Plasma 4.8 G/DL 3.9 - 5.0 [facility] Globulin [Mass/volume] in Serum by calculation 2.7 GM/DL 2.4 - 3.2 [facility] A/G RATIO 1.8 0.8 - 2.0 [facility] Calcium [Mass/volume] in Serum or Plasma 10.6 MG/DL 8.4 - 10.2 H [facility] Bilirubin.total [Mass/volume] in Serum or Plasma 0.7 MG/DL 0.2 - 1.3 [facility] Alkaline phosphatase [Enzymatic activity/volume] in Serum or Plasma 55 U/L 38 - 126 [facility] Aspartate aminotransferase [Enzymatic activity/volume] in Serum or Plasma 26 U/L 5 - 40 [facility] Alanine aminotransferase [Enzymatic activity/volume] in Seru m or Plasma 45 U/L 7 - 56 [facility] Anion gap 3 in Serum or Plasma 15.0 mmol/L 8.0 - 16.0 [facility] AGE 63 [facility] NON-AA GFR >60 mL/min [facility] AFR AMER GFR >60 mL/min [facility] Male GFR In terprentation [...] >32 mL/min Normal ID Date Data Source [id number] 07/07/2019 02:41:00 PM EST [facility] Name Value Range Interpretation Code Description Data Shelly rce(s) Supporting Document(s) CBC W/AUTOMATED DIFF [facility] COMPLETE BLOOD COUNT Leukocytes [#/volume] in Blood by Automated count 11.5 10^3/uL 4.2 - 11.0 H [facility] Erythrocytes [#/volume] in Blood by Automated count 5.23 10^6/uL 4. 50 - 6.30 [facility] Hemoglobin [Mass/volume] in Blood 15.9 g/dL 14.0 - 16.0 [facility] Hematocrit [Volume Fraction] of Blood by Automated count 47.4 % 4 1.0 - 51.0 [facility] Erythrocyte mean corpuscular volume [Entitic volume] by Auto mated count 90.6 fL 80.0 - 94.0 [facility] Erythrocyte mean corpuscular hemoglobin [Entitic mass] by Automated count 30.4 pg 27.0 - 34.0 [facility] Erythrocyte mean corpuscular hemoglobin concentration [Mass/volume] by Automated count 33.5 g/dL 31.0 - 36.0 [facility] Erythrocyte distribution width [Ratio] by Automated count 12.8 % 11.5 - 14.8 [facility] Platelets [#/volume] in Blood by Automated count 217 10^3/uL 150 - 45 0 [facility] Platelet mean volume [Entitic volume] in Blood by Automated count 9.2 fL 7.4 - 10.4 [facility] Neutrophils/100 leukocytes in Blood by Automated count 72.5 % 37. 0 - 80.0 [facility] Lymphocytes/100 leukocytes in Blood by Manual count 17.7 % 25.0 - 40.0 L [facility] Monocytes/100 leukocytes in Blood by Automated count 7.6 % 3.0 - 8.0 [facility] Eosinophils/100 leukocytes in Blood by Automated count 1.6 % 0.0 - 7.0 [facility] Basophils/100 leukocytes in Blood by Automated count 0.3 % 0.0 - 2.0 [facility] %IG 0.3 % 0.0 - 0.0 H [facility] %NRBC 0.0 % 0.0 - 0.0 [facility] Neutrophils [#/volume] in Blood by Automated count 8.34 10^3/uL 2.00 - 6.90 H [facility] Lymphocytes [#/volume] in Blood by Automated count 2.04 10^3/uL 0.60 - 3.40 [facility] Monocytes [#/volume] in Blood by Automated count 0.87 10^3/uL 0.00 - 0.90 [facility] Eosinophils [#/volume] in Blood by Automated count 0.18 10^3/uL 0.00 - 0.70 [facility] Basophils [#/volume] in Blood by Automated count 0.04 10^3/uL 0.00 - 0.20 [facility] #IG 0.04 10^3/uL 0.00 - 0.10 [facility] #NRBC 0.00 10^3/uL 0.00 - 0.00 [facility] MANUAL DIFF NOT INDICATED [facility] RBC MORPH NOT INDICATED [facility] ID Date Data Source [id number] 07/07/2019 02:40:00 PM EST [facility] Name Value Range Interpretation Code Description Data Shelly rce(s) Supporting Document(s) TROPONIN T 0.01 NG/ML 0.00 - 0.10 [facility] TROPONIN T0.1 ng/ml Recommended as the c linical threshold value forTroponin T. ID Date Data Source [id number] 07/07/2019 02:40:00 PM [facility] Name Value Range Interpretation Code Description Data Shelly rce(s) Supporting Document(s) C reactive protein [Mass/volume] in Serum or Plasma by High sensitivity method 1.00 MG/L 1.00 - 3.00 [facility] HS-CRP CUT-OFF: RELATIVE RISK: <1.0 mg/L Low 1.0 - 3.0 mg/L Average >3.0 mg/L High Optimally, the average of HS-CRP results repeated two weeks apart should be used for risk assessment. ID Date Data Source [id number] 07/07/2019 02:40:00 PM [facility] Name Value Range Interpretation Code Description Data Shelly rce(s) Supporting Document(s) Prothrombin time (PT) 12.5 SECONDS 11.0 - 15.5 [facility] INR in Platelet poor plasma by Coagulation assay 0.92 0.93 - 1. 23 L [facility] aPTT in Blood by Coagulation assay 27.1 SECONDS 24.8 - 36.7 [facility] \\BLDo\\INR INTERPRETATION\\BLDx\\ Therapeutic range for Coumadin and related oral anticoagulants. - International Normalized Ratio (INR): 2.0 - 3.0 for Venous Thrombosis, Pulmonary Embolus, Tissue heart valves, Acute [place] Atrial Fibrillation, Valvular heart disease and recurrent [...] and other interferences. ID Date Data Source [id number] 07/07/2019 02:39:00 PM [facility] Name Value Range Interpretation Code Description Data Shelly rce(s) Supporting Document(s) Lactate [Moles/volume] in Serum or Plasma 3.0 MMOL/L 0.2 - 2.2 H [facility] ID Date Data Source [id number] 06/25/2019 12:00:00 AM [facility] ELIZABETH ([facility]) Name Value Range Interpretation Code Description Data Shelly rce(s) Supporting Document(s) Hemoglobin A1c/Hemoglobin.total in Blood 6.5 Abnormal (applies to non-numeric results) HbA1C ELIZABETH ([facility]) ID Date Data Source [id number] 06/25/2019 12:00:00 AM EST ELIZABETH ([facility]) Name Value Range Interpretation Code Description Data Shelly rce(s) Supporting Document(s) Glucose [Mass/volume] in Urine collected for unspecified duration 1 16 Normal Glucose ELIZABETH ([facility]) Procedure Social History Code Duration Value Status Description Data Source(s ) Smoking 07/20/2020 12:00:00 AM EST Former Smoker completed Former Smoker [facility] ([facility]) Smoking 07/16/2020 12:00:00 AM EST Patient is a former smoker completed Patient is a former smoker DALILA ([facility], ) Alcohol intake 05/28/2020 12:00:00 AM EST Yes completed [facility] Cigarette pack-years 05/28/2020 12:00:00 AM EST UNK completed [facility] Cigarettes smoked current (pack per day) - Reported 05/28/20 12:00:00 AM EST UNK completed [facility] Smoking 05/28/2020 12:00:00 AM EST Former smoker completed Former smoker [facility] 04/12/2020 09:42:24 AM EDT Current [...] every day smoker [facility] Vital Signs ID Date Data Source UNK Name Value Range Interpretation Code Description Data Source(s) Diastolic blood pressure 83 mm[Hg] 83 mm[Hg] eCW1 ([facility]) Systolic blood pressure 177 mm[Hg] 177 mm[Hg] e CW1 ([facility]) Body temperature 97.6 [degF] 97.6 [degF] eCW1 ( [facility]) Respiratory rate 22 /min 22 /min eCW1 ([facility]) Heart rate 86 /min 86 /min eCW1 ([facility]) Body mass index (BMI) [Ratio] 27.14 kg/m2 27.14 kg/m2 eCW1 ([facility]) Body height 71 [in_i] 71 [in_i] eCW1 ([facility]) Body weight 194.6 [lb_av] 194.6 [lb_av] eCW1 ([facility]) Body surface area Derived from formula 2.05 m2 2.05 m2 [facility] ([facility]) Body weight 84.823 kg 84.823 kg [facility] ([facility]) Noon[place] body weight 172 [lb_av] 172 [lb_av] [facility] T ([facility]) Body mass index (BMI) [Ratio] 26.1 kg/m2 26.1 k g/m2 [facility] ([facility]) Body weight 187.00 [lb_av] 187.00 [[facility]_av] [facility] Body height 71 [in_i] 71 [in_i] [facility] ([facility]) 5'11" Oxygen saturation in Arterial blood by Pulse oximetry 96 % 96 % [facility] ([facility]) Room Air Heart rate 74 /min 74 /min [facility] ([facility]) Diastolic blood pressure 60 mm[Hg] 60 mm[Hg] [facility] ([facility]) Systolic blood pressure 120 mm[Hg] 120 mm[Hg] [facility] Body mass index (BMI) [Ratio] 26.5 kg/m2 26.5 k g/m2 [facility] ([facility]) Body weight 190.00 [lb_av] 190.00 [lb_av] [facility] Body height 71 [in_i] 71 [in_i] [facility] ([facility]) 5'11" Oxygen saturation in Arterial blood by Pulse oximetry 94 % 94 % [facility] ([facility]) Room Air Heart rate 90 /min 90 /min [facility] ([facility]) Diastolic blood pressure 72 mm[Hg] 72 mm[Hg] [facility] ([facility]) Systolic blood pressure 140 mm[Hg] 140 mm[Hg] [facility] ([facility]) Body surface area Derived from formula 2.06 m2 2.06 m2 [facility] ([facility]) Body weight 86.184 kg 86.184 kg [facility] ([facility]) [place] body weight 172 [lb_av] 172 [lb_av] [facility] ([facility]) Body surface area Derived from formula 2.03 m2 2.03 m2 [facility] ([facility]) Body weight 82.555 kg 82.555 kg [facility] ([facility]) [place] body weight 172 [lb_av] 172 [lb_av] [facility] ([facility]) Body mass index (BMI) [Ratio] 25.4 kg/m2 25.4 k g/m2 [facility] ([facility]) Body weight 182.00 [lb_av] 182.00 [lb_av] [facility] ([facility]) Body height 71 [in_i] 71 [in_i] [facility] ([facility]) " Oxygen saturation in Arterial blood by Pulse oximetry 93 % 93 % [facility] ([facility]) Room Air Heart rate 86 /min 86 /min [facility] ([facility]) Diastolic blood pressure 70 mm[Hg] 70 mm[Hg] [facility] ([facility]) Systolic blood pressure 130 mm[Hg] 130 mm[Hg] [facility] ([facility]) Body weight 88.452 kg 88.452 kg [facility] ([facility]) Body weight 195.00 [lb_av] 195.00 [lb_av] [facility] ([facility]) Oxygen saturation in Arterial blood by Pulse oximetry 85 % 85 % [facility] ([facility], ) 88 ra Heart rate 71 /min 71 /min [facility] ([facility], ) Diastolic blood pressure 78 mm[Hg] 78 mm[Hg] [facility] ([facility], ) Systolic blood pressure 130 mm[Hg] 130 mm[Hg] [facility] Oxygen saturation in Arterial blood by Pulse oximetry 92 % 92 % [facility] Body mass index (BMI) [Ratio] 26.36 kg/m2 26.36 kg/m2 [facility] Body weight 85.73 kg 85.73 kg [facility] Body height 180.3 cm 180.3 cm [facility] Heart rate 96 /min 96 /min [facility] Diastolic blood pressure 94 mm[Hg] 94 mm[Hg] [facility] Systolic blood pressure 162 mm[Hg] 162 mm[Hg] [facility] Inhaled oxygen concentration 21 % 21 % [facility] ([facility]) Inhaled oxygen flow rate 0 L/min 0 L/min [facility] ([facility]) Oxygen saturation in Arterial blood by Pulse oximetry 92 % 92 % [facility] ([facility]) Body surface area Derived from formula 2.06 m2 2.06 m2 [facility] ([facility]) Body mass index (BMI) [Ratio] 26.5 kg/m2 26.5 k g/m2 [facility] ([facility]) Body weight 190 [lb_av] 190 [lb_av] [facility] ( [facility]) Body height 71 [in_i] 71 [in_i] [facility] ([facility]) Body temperature 97.9 [degF] 97.9 [degF] [facility] ([facility]) Respiratory rate 24 /min 24 /min [facility] ([facility]) Heart rate 68 /min 68 /min [facility] Diastolic blood pressure 68 mm[Hg] 68 mm[Hg] [facility] ([facility]) Systolic blood pressure 128 mm[Hg] 128 mm[Hg] [facility] ([facility]) Inhaled oxygen concentration 21 % 21 % [facility] ([facility]) O2 with mask 84% without mask went to 95% Inhaled oxygen flow rate 0 L/min 0 L/min [facility] ([facility]) O2 with mask 84% without mask went to 95% Oxygen saturation in Arterial blood by Pulse oximetry 84 % 84 % [facility] ([facility]) O2 with mask 84% without mask went to 95% Body surface area Derived from formula 2.07 m2 2.07 m2 [facility] ([facility]) O2 with mask 84% without mask went to 95% Body mass index (BMI) [Ratio] 26.6 kg/m2 26.6 k g/m2 [facility] ([facility]) O2 with mask 84% without mask went to 95% Body weight 191 [lb_av] 191 [lb_av] [facility] ([facility]) O2 with mask 84% without mask went to 95% Body height 71 [in_i] 71 [in_i] [facility] ([facility]) O2 with mask 84% without mask went to 95% Body temperature 97.6 [degF] 97.6 [degF] [facility] ([facility]) O2 with mask 84% without mask went to 95% Respiratory rate 24 /min 24 /min [facility] ([facility]) O2 with mask 84% without mask went to 95% Heart rate 91 /min 91 /min [facility] ([facility]) O2 with mask 84% without mask went to 95% Diastolic blood pressure 82 mm[Hg] 82 mm[Hg] [facility] ([facility]) O2 with mask 84% without mask went to 95% Systolic blood pressure 132 mm[Hg] 132 mm[Hg] [facility] ([facility]) O2 with mask 84% without mask went to 95% Inhaled oxygen concentration 21 % 21 % [facility] ([facility]) Inhaled oxygen flow rate 0 L/min 0 L/min [facility] ([facility]) Oxygen saturation in Arterial blood by Pulse oximetry 94 % 94 % [facility] ([facility]) Body surface area Derived from formula 2.07 m2 2.07 m2 [facility] ([facility]) Body mass index (BMI) [Ratio] 26.6 kg/m2 26.6 k g/m2 [facility] ([facility]) Body weight 191 [lb_av] 191 [lb_av] [facility] ([facility]) Body height 71 [in_i] 71 [in_i] [facility] ([facility]) Body temperature 97.1 [degF] 97.1 [degF] [facility] ([facility]) Respiratory rate 24 /min 24 /min [facility] ([facility]) Heart rate 84 /min 84 /min [facility] ([facility]) Diastolic blood pressure 86 mm[Hg] 86 mm[Hg] [facility] ([facility]) Systolic blood pressure 134 mm[Hg] 134 mm[Hg] [facility] ([facility]) Inhaled oxygen concentration 21 % 21 % [facility] ([facility]) Inhaled oxygen flow rate 0 L/min 0 L/min [facility] ([facility]) Oxygen saturation in Arterial blood by Pulse oximetry 97 % 97 % [facility] ([facility]) Body surface area Derived from formula 2.10 m2 2.10 m2 [facility] ([facility]) Body mass index (BMI) [Ratio] 27.8 kg/m2 27.8 k g/m2 [facility] ([facility]) Body weight 199 [lb_av] 199 [lb_av] [facility] ([facility]) Body height 71 [in_i] 71 [in_i] [facility] ([facility]) Body temperature 97.8 [degF] 97.8 [degF] [facility] ([facility]) Respiratory rate 24 /min 24 /min [facility] ([facility]) Heart rate 90 /min 90 /min [facility] ([facility]) Diastolic blood pressure 78 mm[Hg] 78 mm[Hg] [facility] ([facility]) Systolic blood pressure 134 mm[Hg] 134 mm[Hg] [facility] Inhaled oxygen concentration 21 % 21 % [facility] ([facility]) Inhaled oxygen flow rate 0 L/min 0 L/min [facility] ([facility]) Oxygen saturation in Arterial blood by Pulse oximetry 97 % 97 % [facility] ([facility]) Body surface area Derived from formula 2.12 m2 2.12 m2 [facility] ([facility]) Body mass index (BMI) [Ratio] 28.3 kg/m2 28.3 k g/m2 [facility] ([facility]) Body weight 203 [lb_av] 203 [lb_av] [facility] ([facility]) Body height 71 [in_i] 71 [in_i] [facility] ([facility]) Body temperature 97.8 [degF] 97.8 [degF] [facility] ([facility]) Respiratory rate 24 /min 24 /min [facility] ([facility]) Heart rate 97 /min 97 /min [facility] ([facility]) Diastolic blood pressure 76 mm[Hg] 76 mm[Hg] [facility] ([facility]) Systolic blood pressure 132 mm[Hg] 132 mm[Hg] [facility]) Inhaled oxygen concentration 21 % 21 % [facility] ([facility]) Inhaled oxygen flow rate 0 L/min 0 L/min [facility] ([facility]) Oxygen saturation in Arterial blood by Pulse oximetry 98 % 98 % [facility] ([facility]) Body surface area Derived from formula 2.07 m2 2.07 m2 [facility] ([facility]) Body mass index (BMI) [Ratio] 26.6 kg/m2 26.6 k g/m2 [facility] ([facility]) Body weight 191 [lb_av] 191 [lb_av] [facility] ([facility]) Body height 71 [in_i] 71 [in_i] [facility] ([facility]) Body temperature 97.8 [degF] 97.8 [degF] [facility] ([facility]) Respiratory rate 24 /min 24 /min [facility] ([facility]) Heart rate 86 /min 86 /min [facility] ([facility]) Diastolic blood pressure 72 mm[Hg] 72 mm[Hg] [facility] ([facility]) Systolic blood pressure 124 mm[Hg] 124 mm[Hg] [facility] ([facility]) Patient Treatment Plan of Care Planned Activity Planned Date Details Description Data Source (s) Albuterol 0.833 MG/ML / Ipratropium [place] 0.167 MG/M L Inhalant Solution 05/20/2020 12:00:00 AM [facility] Metformin hydrochloride 500 MG Oral Tablet 05/20/2020 12:00:00 AM E [facility] Metformin hydrochloride 500 MG Oral Tablet 05/20/2020 12:00:00 AM E [facility]) atorvastatin 20 MG Oral Tablet 05/20/2020 12:00:00 AM [facility]) 60 ACTUAT Budesonide 0.16 MG/ACTUAT / fo rmoterol fumarate 0.0045 MG/ACTUAT Metered Dose Inhaler [Symbicort] 05/20/2020 12:00:00 AM [facility]) 200 ACTUAT Albuterol 0.09 MG/ACTUAT Metered Dose Inhal er [ProAir] 05/20/2020 12:00:00 AM [facility] ([facility]) Lisinopril 5 MG Oral Tablet 05/20/2020 12:00:00 AM [facility]) Triamcinolone Acetonide 1 MG/ML Topical Lotion 05/20/2020 12:00:00 AM [facility]) Lancets Ultra Fine Miscellaneous 05/20/2020 12:00:00 AM [facility]) IGlucose Test Strips In Vitro 05/20/2020 12:00:00 AM [facility]) Lisinopril 5 MG Oral Tablet 05/19/2020 12:00:00 AM [facility] Lisinopril 5 MG Oral Tablet 05/17/2020 12:00:00 AM [facility]) Prednisone 10 MG Oral Tablet 05/07/2020 12:00:00 AM [facility]) doxycycline hyclate 100 MG Oral Capsule 05/06/2020 12:00:00 AM [facility]) 60 ACTUAT Budesonide 0.16 MG/ACTUAT / fo rmoterol fumarate 0.0045 MG/ACTUAT Metered Dose Inhaler [Symbicort] 04/22/2020 12:00:00 AM [facility]) atorvastatin 20 MG Oral Tablet 04/22/2020 12:00:00 AM [facility]) Metformin hydrochloride 500 MG Oral Tablet 04/22/2020 12:00:00 AM E [facility] ([facility]) Lisinopril 5 MG Oral Tablet 04/22/2020 12:00:00 AM [facility]) 200 ACTUAT Albuterol 0.09 MG/ACTUAT Metered Dose Inhal er [ProAir] 04/22/2020 12:00:00 AM [facility]) 60 ACTUAT Budesonide 0.16 MG/ACTUAT / fo rmoterol fumarate 0.0045 MG/ACTUAT Metered Dose Inhaler [Symbicort] [facility] Oral Tablet 11/20/2019 12:00:00 AM [facility]) 200 ACTUAT Albuterol 0.09 MG/ACTUAT Metered Dose Inhal er [ProAir] 10/24/2019 12:00:00 AM [facility] ([facility]) atorvastatin 20 MG Oral Tablet 08/20/2019 12:00:00 AM [facility]) IGlucose Test Strips In Vitro 08/20/2019 12:00:00 AM [facility]) Lancets Ultra Fine Miscellaneous 08/20/2019 12:00:00 AM [facility] ([facility]) Metformin hydrochloride 500 MG Oral Tablet 08/20/2019 12:00:00 AM E [facility] ([facility]) 60 ACTUAT Budesonide 0.16 MG/ACTUAT / fo rmoterol fumarate 0.0045 MG/ACTUAT Metered Dose Inhaler [Symbicort] 08/20/2019 12:00:00 AM [facility]) 200 ACTUAT Albuterol 0.09 MG/ACTUAT Metered Dose Inhal er [ProAir] 08/20/2019 12:00:00 AM [facility] ([facility]) Triamcinolone Acetonide 1 MG/ML Topical Lotion 08/20/2019 12:00:00 AM [facility]) Lisinopril 5 MG Oral Tablet 08/20/2019 12:00:00 AM [facility]) 5000 MG Testosterone 0.01 MG/MG Topical Gel [Androgel] 08/20/2019 12:00:00 AM [facility]) atorvastatin 20 MG Oral Tablet 06/25/2019 12:00:00 AM [facility]) Metformin hydrochloride 500 MG Oral Tablet 06/25/2019 12:00:00 AM E [facility]) IGlucose Test Strips In Vitro 06/25/2019 12:00:00 AM [facility]) Lancets Ultra Fine Miscellaneous 06/25/2019 12:00:00 AM [facility]) 60 ACTUAT Budesonide 0.16 MG/ACTUAT / fo rmoterol fumarate 0.0045 MG/ACTUAT Metered Dose Inhaler [Symbicort] 06/25/2019 12:00:00 AM [facility]) Metformin hydrochloride 500 MG Oral Tablet 05/30/2019 12:00:[address] [facility] ([facility]) IGlucose Test Strips In Vitro 01/24/2019 12:00:00 AM [facility]) Lancets Ultra Fine Miscellaneous 01/24/2019 12:00:00 AM [facility] ([facility]) Triamcinolone Acetonide 1 MG/ML Topical Lotion 01/24/2019 12:00:00 AM [facility] ([facility]) atorvastatin 20 MG Oral Tablet 01/24/2019 12:00:00 AM EDT [facility] ([facility]) 30 ACTUAT fluticasone furoate 0.1 MG/ACT UAT / vilanterol 0.025 MG/ACTUAT Dry Powder Inhaler [Breo] 01/24/2019 12:00:00 AM EDT [facility] ([facility]) 200 ACTUAT Albuterol 0.09 MG/ACTUAT Metered Dose Inhal er [ProAir] 01/24/2019 12:00:00 AM EDT [facility] ([facility]) pantoprazole 40 MG Delayed Release Oral Tablet 04/16/2016 12:00:00 AM EDT [facility] atorvastatin 40 MG Oral Tablet 10/10/2014 12:00:00 AM EDT [facility] 200 ACTUAT Levalbuterol 0.045 MG/ACTUAT Metered Dose I nhaler [Xopenex] 04/23/2014 12:00:00 AM EST [facility] Cholecalciferol 2000 UNT Oral Capsule [facility] Nitroglycerin 0.4 MG Sublingual Tablet [facility] DAILY DIONNE (THERAGRAN) per tablet [facility] ALBUTEROL IN [facility] 24 HR metoprolol succinate 25 MG Extended Release Oral Tablet [facility] Aspirin 325 MG Oral Tablet [facility]
[2020-08-01] MEDS ORDERED: AMIODARONE HCL 150 MG in IV 1 EA IV STA (01:34)
[2020-08-01] MEDS ORDERED: NS 500 ML IV ONE ×2 (03:00)
[2020-08-01] MEDS ORDERED: METOPROLOL TART 25 MG TABLET PO ONE ×2 (03:00→05:00)
[2020-08-01 05:08] VITALS: BP 129/75
[2020-08-01 05:15] VITALS: BP 125/75
--- NOTE | 2020-08-01 05:19 | ECGEPIP ---
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
[2020-08-02] MEDS ORDERED: OMEG10002 PO (09:45)
[2020-08-02] MEDS ORDERED: ATIV1TAB10 PO (11:25)
[2020-08-02] MEDS ORDERED: LISI2.5T2 PO (11:34)
[2020-08-02] MEDS ORDERED: METO1TAB87 PO (11:34)
[2020-08-03] MEDS ORDERED: NYST50SS PO (08:51)
== END 2020-08-01 06:25 | disposition home or self-care (01) ==
LOC: M ED 22:32
DX: I48.91 Unspecified atrial fibrillation (principal); I10 Essential (primary) hypertension; J90 Pleural effusion, not elsewhere classified; J44.9 Chronic obstructive pulmonary disease, unspecified; C34.11 Malignant neoplasm of upper lobe, right bronchus or lung; Z97.8 Presence of other specified devices; Z86.718 Personal history of other venous thrombosis and embolism; Z86.711 Personal history of pulmonary embolism; Z79.01 Long term (current) use of anticoagulants; Z79.899 Other long term (current) drug therapy; Z87.891 Personal history of nicotine dependence; Z91.013 Allergy to seafood
CPT/HCPCS: 71045; 80047; 83735; 84443; 85025; 93005; 96361; 96365; 99285; J0282; J1642

== ENCOUNTER 2020-08-02 09:38 | Emergency (ER) | payer OTHER ==
[~2020-08-02] VITALS: Ht 180.3 cm; Wt 87.3 kg
[2020-08-02] MEDS ORDERED: OMEG10002 PO (09:45)
--- OUTSIDE RECORDS SUMMARY | 2020-08-02 09:48 | CCD ---
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 Care Sports Management Intern Name Role Phone Susan Talamantes MD Unavailable [...] John Romeo MD Unavailable Unavailable Lake, John oRmeo MD Unavailable Unavailable [place], John Romeo MD [...] SleheatherkaToniojtech Unavailable Unavailable SleTonio woodjtech Unavailable Unavailable SleheatherkaoTniojtech Unavailable Unavailable SlezkaToniojtech Unavailable Unavailable SlezkaToniojtech Unavailable [...] Unavailable Isaias Amaro MD Unavailable Unavailable Isaias mAaro MD Unavailable Unavailable Isaias Amaro MD Unavailable Unavailable Isaias Amaro MD Unavailable Unavailable Iasias Amaro MD Unavailable Unavailable Isaias Amaro MD [...] Unavailable Unavailable Isaias Amaro MD Unavailable Unavailable Isiaas Amaro MD Unavailable Unavailable Isaias Amaro MD [...] Unavailable VENERUS, Toi MEDEIROS MD Unavailable Unavailable Ivnita, Susan Balbuena MD Unavailable Unavailable [place]inita, Susan Balbuean MD Unavailable Unavailable Vniita, Susan Balbuena MD Unavailable Unavailable [place], Susan [...] is protected by Article 27-F of the [place] Public Health law. If you continue you may have access to information: Regarding HIV / AIDS; Provided by facilities licensed or operated by the [place] Office of Mental Health; or Provided by the [place] Office for People With Developmental Disabilities. If such information is present, then the following [place] mandated warning applies: This information has been [...] law may result in a fine or fdc sentence or both. A general authorization for the release of medical or other information is NOT sufficient authorization for further disc losure. Allergies and Adverse Reactions Type Description Substance Reaction Status Data Source(s ) Food allergy shellfish derived shellfish derived [facility] Family History Family Member Name Family Member Gender Family Member Status Date o f Status Description Data Source(s) Unknown Male Problem [facility] ([facility]) Unknown Male Problem [facility] ([facility]) Encounters Encounter Providers Location Date Indications Data Source(s ) Out[place] [address] [id number] 07/20/2020 12:00:00 AM EST eCW1 ([facility]) Outpatient Attender: Lizett Nixon/[place]/Khoa/Re indl 06/22/2020 09:15:00 AM EST [facility] ([facility]) Outpatient Attender: Lizett Nixon/[place]hoa/Re indl 06/14/2020 12:23:00 AM EST [facility] ([facility]) Outpatient Attender: Lizett Nixon/[place]/Re indl 06/13/2020 12:23:00 AM EST [facility] ([facility]) Outpatient Attender: Lizett Nixon/[place]ho[place]/Re indl 06/12/2020 12:23:00 AM EST [facility] ([facility]) Outpatient Referrer: Bethany Felix MD 06/11/2020 09:36:00 AM EST Pleural effusion, not elsewhere classified [facility] Pleural effusion, not elsewhere classifi ed Outpatient Attender: Lizett Nixon/[place]hoa/Re indl 06/10/2020 12:23:00 AM EST [facility] ([facility]) Outpatient Attender: Lizett Nixon/[place]/Re indl 06/09/2020 12:23:00 AM EST [facility] ([facility]) Outpatient Attender: Lizett Nixon/[place]ho[place]/Re indl 06/08/2020 12:23:00 AM EST [facility] ([facility]) Outpatient Admitter: Bethany Felix MDReferrer: Bethany Felix MD 06/08/2020 12:00:00 AM EST Secondary malignant neoplasm of unspecified site [facility] Secondary malignant neoplasm of unspecif ied site Outpatient Attender: Kike Nixon/[place]hoa/R eindl 06/01/2020 09:00:00 AM EST [facility] ([facility]) Outpatient Attender: Julio Reyes MDReferrer: Stevan Talamantes MD [email or web address] 05/28/2020 12:00:00 AM EST - 05/28/2020 10:45:33 AM EST [facility] Outpatient<td ID="encounterTypeDescripti onID0">STANDARD OV</td><td>Esha Talamantes MD</td><td>[facility]</td><td>05/20/2020</td><td>8:34AM</td><td>05/07/2020 11:59PM</td><td><content ID="encounterDiagnosisID0-0">Working Diagnosis of Abdominal Pain</content>, <content ID="encounterDiagnosisID0-1">Working Diagnosis of Abdominal Pain in the Central Upper Belly (Epigastric)</content>, <content ID="encounterDiagnosisID0-2">Chest Pain</content>, <content ID="encounterDiagnosisID0-3">Hypoxia</content></td> Attender: Esha Talamantes MD [facility] 05/20/2020 08:34:00 AM EST - 05/07/2020 11:59:00 PM EST HypoxiaChest PainWorking Diagnosis of Ab dominal Pain in the Central Upper Belly (Epigastric)Working Diagnosis of Abdominal Pain [place] ([facility]) Hypoxia Chest Pain Working Diagnosis of Abdominal Pain in t he Central Upper [place]ly (Epigastric) Working Diagnosis of Abdominal Pain Outpatient Attender: Esha Talamantes MDConsultant: Esha branch MD 05/07/2020 09:30:00 AM EST - 05/07/2020 10:30:00 AM EST [facility] Outpatient<td ID="encounterTypeDescripti onID1">STANDARD OV</td><td>Esha Talamantes MD</td><td>[facility]</td><td>05/07/2020</td><td>8:07AM</td><td>9:08AM</td><td><content ID="encounterDiagnosisID1-0">Acute Infective Exacerbation of Chronic Obstructive Airways Disease</content>, <content ID="encounterDiagnosisID1-1">Nicotine Dependence Uncomplicated</content>, <content ID="encounterDiagnosisID1- 2">Atypical Chest Pain</content></td> Attender: Esha Talamantes MD [facility], 05/07/2020 08:07:00 AM EST - 05/07/2020 09:08:00 AM ES T Atypical Chest PainNicotine Dependence UncomplicatedAcute Infective Exacerbation of Chronic Obstructive Airways DiseaseAtypical Chest PainNicotine Dependence UncomplicatedAcute Infective Exacerbation of Chronic Obstructive Airways Disease Atypical Chest PainNicotine Dependence UncomplicatedAcute Infective Exacerbation of Chronic Obstructive Airways Disease [facility] ([facility]) Atypical Chest Pain Nicotine Dependence Uncomplicated Acute Infective Exacerbation of Chronic Obstructive Airways Disease Atypical Chest Pain Nicotine Dependence Uncomplicated Acute Infective Exacerbation of Chronic Obstructive Airways Disease Atypical Chest Pain Nicotine Dependence Uncomplicated Acute Infective Exacerbation of Chronic Obstructive Airways Disease Outpatient Attender: Esha Talamantes MDConsultant: Esha branch MD 04/30/2020 08:24:00 AM EST - 04/30/2020 09:24:00 AM EST [facility] Outpatient<td ID="encounterTypeDescripti onID2">HOSP I/P F/U</td><td>Esha Talamantes MD</td><td>[facility],</td><td>04/22/2020</td><td>10:05AM</td><td>11:03AM</td><td><content ID="encounterDiagnosisID2-0">Vitreous Floaters Right Eye</content>, <content ID="encounterDiagnosisID2-1">Chronic Obstructive Pulmonary Disease</content>, <content ID="encounterDiagnosisID2-2">Essential Hypertension Benign</content>, <content ID="encounterDiagnosisID2-3">Hyperlipidemia</content>, <content ID="encounterDiagnosisID2-4">Diabetes Mellitus Type 2 in Obese</content>, <content ID="encounterDiagnosisID2-5">Lung Mass</content>, <content ID="encounterDiagnosisID2-6">Fatigue</content></td> Attender: Esha Talmaantes MD [facility], 04/22/2020 10:05:00 AM EST - 04/22/2020 [...] Obstructive Pulmonary DiseaseHyperlipidemiaChronic Obstructive Pulmonary Disease [facility] ([facility]) Fatigue Lung Mass Diabetes Mellitus Type [...] 04/12/2020 11:42:00 AM EDT CHEST PAIN,COPD EXACERBATION [facility] CHEST PAIN,COPD EXACERBATION Patient discharged. Outpatient<td ID="encounterTypeDescripti onID3">RX UPDATE</td><td>E[facility] Talamantes MD</td><td[facility]</td><td>11/20/2019</td><td>08/20/2019 11:10AM</td><td>08/20/2019 11:59PM</td><td></td> [facility]: [facility]:10[facility]00 AM EST - 08/20/2019 11:59:00 PM EST [place] ([facility]) Outpatient<td ID="encounterTypeDescripti onID4">ANNUAL PHYSICAL EXAM</td><td>Esha Talamantes MD</td><td[facility]td><td>08/20/2019</td><td>8:13AM</td><td>9:35AM</td><td><content ID="encounterDiagnosisID4-0">Fatigue</content>, <content ID="encounterDiagnosisID4-1">Hypogonadism</content>, <content ID="encounterDiagnosisID4-2">Hyperlipidemia</content>, <content ID="encounterDiagnosisID4-3">Benign Prostatic Hypertrophy</content>, <content ID="encounterDiagnosisID4-4">Diabetes Mellitus Type 2 in Nonobese</content>, <content ID="encounterDiagnosisID4-5">Routine History & Physical Senior Citizen with Abnormal Findings</content></td> Attender: Esha Talamantes MD [facility], 08/20/2019 08:13:00 AM EST - 08/20/2019 [...] Prostatic HypertrophyHypogonadismFatigue HyperlipidemiaHyperlipidemiaHyperlipidemiaHyperlipidemiaHyperlipidemiaHyperlipid noe [place] ([facility]) Routine History & Physical Senior Citize [...] 07:43:00 AM EST - 08/12/2019 08:43:00 AM [facility] Outpatient<td ID="encounterTypeDescripti onID5">STANDARD OV</td><td>Esha Talamantes MD</td><td>[facility]</td><td>08/07/2019</td><td>1:54PM</td><td>3:09PM</td><td><content ID="encounterDiagnosisID5-0">Cervicalgia</content>, <content ID="encounterDiagnosisID5-1">Chronic Obstructive Pulmonary Disease</content>, <content ID="encounterDiagnosisID5-2">Hypercalcemia</content>, <content ID="encounterDiagnosisID5-3">Bursitis Olecranon Left</content>, <content ID="encounterDiagnosisID5-4">Psoriasis</content>, <content ID="encounterDiagnosisID5-5">Diabetes Mellitus Secondary with Peripheral Neuropathy</content></td> Attender: Esha Talamantes MD [facility] 08/07/2019 01:54:00 PM EST - 08/07/2019 [...] DiseaseChronic Obstructive Pulmonary DiseaseChronic Obstructive Pulmonary Disease [place] ([facility]) Diabetes Mellitus Secondary with Periphe ral [...] Obstructive Pulmonary Disease Outpatient 07/07/2019 03:17:00 PM [facility] Attender: MALA PANIAGUA MDConsultant: Esha branch MD 07/07/2019 01:18:00 PM EST - 07/07/2019 03:37:00 PM [facility] Patient discharged. Outpatient<td ID="encounterTypeDescripti onID6">STANDARD OV</td><td>Esha Talamantes MD</td><td>[facility],</td><td>06/25/2019</td><td>10:55AM</td><td>11:58AM</td><td><content ID="encounterDiagnosisID6-0">Chronic Obstructive Pulmonary Disease</content>, <content ID="encounterDiagnosisID6-1">Hyperlipidemia</content>, <content ID="encounterDiagnosisID6-2">Diabetes Mellitus Type 2</content>, <content ID="encounterDiagnosisID6-3">Obesity</content>, <content ID="encounterDiagnosisID6-4">Diabetes Mellitus Type 2 with Coma</content>, <content ID="encounterDiagnosisID6-5">Hypogonadism</content></td> Attender: Esha Talamantes MD [facility], 06/25/2019 10:55:00 AM EST - 06/25/2019 [...] Obstructive Pulmonary DiseaseHyperlipidemiaChronic Obstructive Pulmonary Disease [place] ([facility]) Hypogonadism Diabetes Mellitus Type 2 with [...] 08/07/2019 Complete (Ref used - Patient objection) [facility] MEDICINE [facility], [facility] ([facility]) Medications Medication Brand Name Start Date [...] 1 TWICE A DAY THEREAFTER SOLD: 06/14/2020 [facility] pantoprazole 40 MG Delayed Release Oral Tablet PANTOPRAZOLE SODIUM 06/14/2020 12:00:00 AM EST tablet,delayed release (DR/EC) 30 T CARY ONE TABLET BY MOUTH EVERY DAY TAKE ONE TABLET BY MOUTH EVERY DAY SOLD: 06/14/2020 [facility] 100 mg 06/14/2020 12:00:00 AM EST capsule 60 TAKE ONE CAPSULE BY MOUTH TWICE A DAY TAKE ONE CAPSULE BY MOUTH TWICE A DAY SOLD: 06/14/2020 [facility] 7 ACTUAT umeclidinium 0.0625 MG/ACTUAT Dry Powder Inha ler [Incruse] Incruse Ellipta 06/01/2020 12:00:00 AM EST RESPIRATORY active [facility] ([facility], ) Prednisone 10 MG Oral Tablet Prednisone 06/01/2020 12:00:00 AM EST ORAL completed [facility] ([facility], ) Metformin hydrochloride 500 MG Oral Tablet metFORMIN ( GLUCOPHAGE) 500 MG tablet metFORMIN (GLUCOPHAGE) 500 MG tablet 05/20/2020 12:00:00 AM EST 1 { tbl} Oral active Take 1 tablet by mouth 2 (two) times a day [facility] Lancets Ultra Fine Miscellaneous Lancets Ultra Fine Miscella neous 05/20/2020 12:00:00 AM EST active Lancets Ultra Fine [place] ([facility]) IGlucose Test Strips In Vitro IGlucose Test Strips In Vitro 05/20/2020 12:00:00 AM EST active IGlucose Test Str ips [place] ([facility]) Albuterol 0.833 MG/ML / Ipratropium Brom delmer 0.167 MG/ML Inhalant Solution ipratropium-albuterol (DUO-NEB) 0.5-2.5 mg/mL nebulizer ipratropium-albuterol (DUO-NEB) 0.5-2.5 mg/mL nebulizer 05/20/2020 12:00:00 AM EST active INHALE 1 VIAL VIA NEB QID PRN [facility] Triamcinolone Acetonide 1 MG/ML Topical Lotion Triamcinolone Acetonide 0.1% External Lotion Triamcinolone Acetonide 0.1% External Lotion 0 12:00:00 AM EST active triamcinolone ac etonide 1 MG/ML Topical Lotion [facility]) atorvastatin 20 MG Oral Tablet Atorvastatin Calcium 20 MG Oral Tablet Atorvastatin Calcium 20 MG Oral Tablet 05/20/2020 12:00:00 AM EST 1 active at[facility]vastatin 20 MG [facility]t [facility] Metformin hydrochloride 500 MG Oral Tablet metFORMIN H Cl 500 MG Oral Tablet metFORMIN HCl 500 MG Oral Tablet 05/20/2020 12:00:00 AM EST active metformin hydrochloride 500 MG Oral Tablet [place] ([facility]) 60 ACTUAT Budesonide 0.16 MG/ACTUAT / fo rmoterol fumarate 0.0045 MG/ACTUAT Metered Dose Inhaler [Symbicort] Symbicort 160-4.5 MCG/ACT Inhalation Aerosol Symbicort 160-4.5 MCG/ACT Inhalation Aerosol 05/20/2020 12:00:00 AM EST active 60 ACTUAT budeso nide 0.16 MG/ACTUAT / formoterol fumarate 0.0045 MG/ACTUAT Metered Dose Inhaler [Symbicort] [place] ([facility]) 200 ACTUAT Albuterol 0.09 MG/ACTUAT Mete red Dose Inhaler [ProAir] ProAir HFA 108 (90 Base) MCG/ACT Inhalation Aerosol Solution ProAir HFA 108 (90 Base) MCG/ACT Inhalation Aerosol Solution 05/20/2020 12:00:00 AM EST 18 active [id number] 200 ACTUAT albuterol 0.09 MG/ACTUAT Metered Dose Inhaler [ProAir] [place] ([facility]) Lisinopril 5 MG Oral Tablet Lisinopril 5 MG Oral Tablet 07/2019 12:00:00 AM EST active lisinopril 5 MG O ral Tablet [place] ([facility]) Lisinopril 5 MG Oral Tablet lisinopril (PRINIVIL,ZESTR IL) 5 MG tablet lisinopril (PRINIVIL,ZESTRIL) 5 MG tablet 05/19/2020 12:00:00 AM EST 1 {tbl} O ral active Take 1 tablet by mouth daily [facility] Lisinopril 5 MG Oral Tablet Lisinopril 5 MG Oral Tablet 04/20 12:00:00 AM EST aborted lisinopril 5 MG Oral Tablet [place] ([facility]) Prednisone 10 MG Oral Tablet predniSONE 10 MG Oral Tab let predniSONE 10 MG Oral Tablet 05/07/2020 12:00:00 AM EST aborted prednisone 10 MG Oral Tablet [place] ([facility]) doxycycline hyclate 100 MG Oral Capsule Doxycycline Hy clate 100 MG Oral Capsule Doxycycline Hyclate 100 MG Oral Capsule 05/06/2020 12:00:00 AM EST active doxycycline hyclate 100 MG Oral Capsule [facility]) 60 ACTUAT Budesonide 0.16 MG/ACTUAT / fo rmoterol fumarate 0.0045 MG/ACTUAT Metered Dose Inhaler [Symbicort] Symbicort 160-4.5 MCG/ACT Inhalation Aerosol Symbicort 160-4.5 MCG/ACT Inhalation Aerosol 04/22/2020 12:00:00 AM EST aborted 60 ACTUAT budeso nide 0.16 MG/ACTUAT / formoterol fumarate 0.0045 MG/ACTUAT Metered Dose Inhaler [Symbicort] [place] ([facility]) 200 ACTUAT Albuterol 0.09 MG/ACTUAT Mete red Dose Inhaler [ProAir] ProAir HFA 108 (90 Base) MCG/ACT Inhalation Aerosol Solution ProAir HFA 108 (90 Base) MCG/ACT Inhalation Aerosol Solution 04/22/2020 12:00:00 AM EST 18 aborted [id number] 200 ACTUAT albuterol 0.09 MG/ACTUAT Metered Dose Inhaler [ProAir] [place] ([facility]) Metformin hydrochloride 500 MG Oral Tablet metFORMIN H Cl 500 MG Oral Tablet metFORMIN HCl 500 MG Oral Tablet 04/22/2020 12:00:00 AM EST aborted metformin hydrochloride 500 MG Oral Tablet [place] ([facility]) atorvastatin 20 MG Oral Tablet Atorvastatin Calcium 20 MG Oral Tablet Atorvastatin Calcium 20 MG Oral Tablet 04/22/2020 12:00:00 AM EST 1 aborted atorvastatin 20 MG Oral Tablet [facility]) Lisinopril 5 MG Oral Tablet Lisinopril 5 MG Oral Tablet 09/2019 12:00:00 AM EST 1 aborted lisinopril 5 MG Oral Tablet [place] ([facility]) Dextromethorphan Hydrobromide 2 MG/ML / Guaifenesin 20 MG/ML Oral Solution Dextromethorphan-Guaifenesin Dextromethorphan-Guaifenesin 04/12/2020 10:03:10 AM EDT [address] [facility] Albuterol 0.833 MG/ML / Ipratropium Brom delmer 0.167 MG/ML Inhalant Solution Ipratropium-Albuterol Ipratropium-Albuterol 04/12/2020 10:02:36 AM EDT 3 ML active [facility] Prednisone 20 MG Oral Tablet Prednisone 04/12/2020 10:01:33 AM EDT 40 MG active [facility] Azithromycin 500 MG Oral Tablet Azithromycin 04/12/2020 10:00:43 AM EDT 500 MG active [facility] atorvastatin 20 MG Oral Tablet Atorvastatin Atorvastatin 04/11/2020 09:16:15 PM EDT [address] [facility] Pabqkcppojok-Catnudkp-Rklqvt (Centrum Silver) Tablet 04/11/2020 09:16:15 PM EDT [address] [facility] atorvastatin 20 MG Oral Tablet Atorvastatin Atorvastatin 04/11/2020 09:16:15 PM EDT [address] [facility] Metformin hydrochloride 500 MG Oral Tablet Metformin 04/11 09:16:15 PM EDT 500 MG active [facility] Aspirin 04/11/2020 09:16:15 PM EDT 81 MG active [facility] Aspirin 04/11/2020 09:16:15 PM EDT 81 MG active [facility] 120 ACTUAT Budesonide 0.16 MG/ACTUAT / f ormoterol fumarate 0.0045 MG/ACTUAT Metered Dose Inhaler Budesonide-Formoterol (Symbicort) 160-4.5 mcg/actuation HFA aerosol inhaler Budesonide-Formoterol (Symbicort) 160-4. 5 mcg/actuation HFA aerosol inhaler 04/11/2020 09:16:15 PM EDT 2 PUFFS activ e [facility] Metformin hydrochloride 500 MG Oral Tablet Metformin 04/11 09:16:15 PM EDT 500 MG active [facility] 120 ACTUAT Budesonide 0.16 MG/ACTUAT / f ormoterol fumarate 0.0045 MG/ACTUAT Metered Dose Inhaler Budesonide-Formoterol (Symbicort) 160-4.5 mcg/actuation HFA aerosol inhaler Budesonide-Formoterol (Symbicort) 160-4. 5 mcg/actuation HFA aerosol inhaler 04/11/2020 09:16:15 PM EDT 2 PUFFS activ e [facility] Albuterol Sulfate (Proair Hfa) 90 mcg/actuation HFA aerosol inhaler 04/11/2020 09:16:15 PM EDT 2 PUFFS active [facility] Aparcajfimoh-Bedkvtvf-Uannvb 04/11/2020 09:16:15 PM EDT 1 T AB active [facility] Albuterol Sulfate (Proair Hfa) 90 mcg/actuation HFA aerosol inhaler 04/11/2020 09:16:15 PM EDT 2 PUFFS active [facility] 60 ACTUAT Budesonide 0.16 MG/ACTUAT / fo rmoterol fumarate 0.0045 MG/ACTUAT Metered Dose Inhaler [Symbicort] Symbicort 160-4.5 MCG/ACT Inhalation Aerosol Symbicort 160-4.5 MCG/ACT Inhalation Aerosol 11/20/2019 12:00:00 AM EDT aborted 60 ACTUAT budeso nide 0.16 MG/ACTUAT / formoterol fumarate 0.0045 MG/ACTUAT Metered Dose Inhaler [Symbicort] [place] ([facility]) Lisinopril 5 MG Oral Tablet Lisinopril 5 MG Oral Tablet 08/2019 12:00:00 AM EDT 1 aborted lisinopril 5 MG Oral Tablet [facility]) 200 ACTUAT Albuterol 0.09 MG/ACTUAT Mete red Dose Inhaler [ProAir] ProAir HFA 108 (90 Base) MCG/ACT Inhalation Aerosol Solution ProAir HFA 108 (90 Base) MCG/ACT Inhalation Aerosol Solution 10/24/2019 12:00:00 AM EDT 18 aborted [id number] 200 ACTUAT albuterol 0.09 MG/ACTUAT Metered Dose Inhaler [ProAir] [facility]) Lisinopril 5 MG Oral Tablet Lisinopril 5 MG Oral Tablet 08/2019 12:00:00 AM EST 1 aborted lisinopril 5 MG Oral Tablet [place] ([facility]) Triamcinolone Acetonide 1 MG/ML Topical Lotion Triamcinolone Acetonide 0.1% External Lotion Triamcinolone Acetonide 0.1% External Lotion 0 12:00:00 AM EST aborted triamcinolone a cetonide 1 MG/ML Topical Lotion [facility]) 200 ACTUAT Albuterol 0.09 MG/ACTUAT Mete red Dose Inhaler [ProAir] ProAir HFA 108 (90 Base) MCG/ACT Inhalation Aerosol Solution ProAir HFA 108 (90 Base) MCG/ACT Inhalation Aerosol Solution 08/20/2019 12:00:00 AM EST 18 aborted [id number] 200 ACTUAT albuterol 0.09 MG/ACTUAT Metered Dose Inhaler [ProAir] [facility]) 5000 MG Testosterone 0.01 MG/MG Topical Gel [Androgel] AndroGel 50 MG/5GM (1%) Transdermal AndroGel 50 MG/5GM (1%) Transdermal 08/20/2019 12:00:00 AM EST aborted 5000 MG testosterone 0.01 MG/MG Topical Gel [Androgel] [place] ([facility]) IGlucose Test Strips In Vitro IGlucose Test Strips In Vitro 08/20/2019 12:00:00 AM EST aborted [facility] Test [facility] atorvastatin 20 MG Oral Tablet Atorvastatin Calcium 20 MG Oral Tablet Atorvastatin Calcium 20 MG Oral Tablet 08/20/2019 12:00:00 AM EST 1 aborted atorvastatin 20 MG Oral Tablet [facility]) 60 ACTUAT Budesonide 0.16 MG/ACTUAT / fo rmoterol fumarate 0.0045 MG/ACTUAT Metered Dose Inhaler [Symbicort] Symbicort 160-4.5 MCG/ACT Inhalation Aerosol Symbicort 160-4.5 MCG/ACT Inhalation Aerosol 08/20/2019 12:00:00 AM EST aborted 60 ACTUAT budeso nide 0.16 MG/ACTUAT / formoterol fumarate 0.0045 MG/ACTUAT Metered Dose Inhaler [Symbicort] [place] ([facility]) Lancets Ultra Fine Miscellaneous Lancets Ultra Fine Miscella neous 08/20/2019 12:00:00 AM EST aborted Lancets Ultra Fine [place] ([facility]) Metformin hydrochloride 500 MG Oral Tablet metFORMIN H Cl 500 MG Oral Tablet metFORMIN HCl 500 MG Oral Tablet 08/20/2019 12:00:00 AM EST aborted metformin hydrochloride 500 MG Oral Tablet [place] ([facility]) Lancets Ultra Fine Miscellaneous Lancets Ultra Fine Miscella neous 06/25/2019 12:00:00 AM EST aborted Lancets Ultra Fine [place] ([facility]) IGlucose Test Strips In Vitro IGlucose Test Strips In Vitro 06/25/2019 12:00:00 AM EST aborted [facility]Glucose Test [facility] Metformin hydrochloride 500 MG Oral Tablet metFORMIN H Cl 500 MG Oral Tablet metFORMIN HCl 500 MG Oral Tablet 06/25/2019 12:00:00 AM EST aborted metformin hydrochloride 500 MG Oral Tablet [place] ([facility]) atorvastatin 20 MG Oral Tablet Atorvastatin Calcium 20 MG Oral Tablet Atorvastatin Calcium 20 MG Oral Tablet 06/25/2019 12:00:00 AM EST 1 aborted atorvastatin 20 MG Oral Tablet [facility]) 60 ACTUAT Budesonide 0.16 MG/ACTUAT / fo rmoterol fumarate 0.0045 MG/ACTUAT Metered Dose Inhaler [Symbicort] Symbicort 160-4.5 MCG/ACT Inhalation Aerosol Symbicort 160-4.5 MCG/ACT Inhalation Aerosol 06/25/2019 12:00:00 AM EST aborted 60 ACTUAT budeso nide 0.16 MG/ACTUAT / formoterol fumarate 0.0045 MG/ACTUAT Metered Dose Inhaler [Symbicort] [place] ([facility]) Metformin hydrochloride 500 MG Oral Tablet metFORMIN H Cl 500 MG Oral Tablet metFORMIN HCl 500 MG Oral Tablet 05/30/2019 12:00:00 AM EST aborted metformin hydrochloride 500 MG Oral Tablet [place] ([facility]) 200 ACTUAT Albuterol 0.09 MG/ACTUAT Mete red Dose Inhaler [ProAir] ProAir HFA 108 (90 Base)MCG/ACT Inhalation Aerosol Solution ProAir HFA 108 (90 Base)MCG/ACT Inhalation Aerosol Solution 01/24/2019 12:00:00 AM EDT 18 aborted [id number] 200 ACTUAT albuterol 0.09 MG/ACTUAT Metered Dose Inhaler [ProAir] [place] ([facility]) IGlucose Test Strips In Vitro IGlucose Test Strips In Vitro 01/24/2019 12:00:00 AM EDT aborted IGlucose Test St rips [place] ([facility]) Triamcinolone Acetonide 1 MG/ML Topical Lotion Triamcinolone Acetonide 0.1% External Lotion Triamcinolone Acetonide 0.1% External Lotion 12:00:00 AM EDT aborted triamcinolone a cetonide 1 MG/ML Topical Lotion [place] ([facility]) Lancets Ultra Fine Miscellaneous Lancets Ultra Fine Miscella neous 01/24/2019 12:00:00 AM EDT aborted Lancets Ultra Fine ELIZABETH ([facility]) 30 ACTUAT fluticasone furoate 0.1 MG/ACT UAT / vilanterol 0.025 MG/ACTUAT Dry Powder Inhaler [Breo] Breo Ellipta 100-25MCG/INH Inhalation Aerosol Powder Breath Activated Breo Ellipta 100-25MCG/INH Inhalation Ae rosol Powder Breath Activated 01/24/2019 12:00:00 AM EDT aborted 30 ACTUAT fluticasone furoate 0.1 MG/ACTUAT / vilanterol 0.025 MG/ACTUAT Dry Powder Inhaler [Breo] ELIZABETH ([facility]) atorvastatin 20 MG Oral Tablet Atorvastatin Calcium 20 MG Oral Tablet Atorvastatin Calcium 20MG Oral Tablet 01/24/2019 12:00:00 AM EDT 1 aborted atorvastatin 20 MG Oral Tablet G REEREPLACED BY [facility] ([facility]) pantoprazole 40 MG Delayed Release Oral Tablet pantoprazole (PROTONIX) 40 MG tablet pantoprazole (PROTONIX) 40 MG tablet 04/16/2016 12:00:00 AM EDT aborted [facility] atorvastatin 40 MG Oral Tablet atorvastatin (LIPITOR) 40 MG tablet atorvastatin (LIPITOR) 40 MG tablet 10/10/2014 12:00:00 AM EDT aborted [facility] 200 ACTUAT Levalbuterol 0.045 MG/ACTUAT Metered Dose Inhaler [Xopenex] XOPENEX HFA 45 MCG/ACT inhaler XOPENEX HFA 45 MCG/ACT inhaler 04/23/2014 12:00:00 AM EST aborted [facility] ALBUTEROL IN aborted prn [facility] Nitroglycerin 0.4 MG Sublingual Tablet n itroglycerin (NITROSTAT) 0.4 MG SL tablet nitroglycerin (NITROSTAT) 0.4 MG SL tablet aborted sl prn cp-take up to 3 tabs 5 minutes apart to resolve cp [facility] DAILY DIONNE (THERAGRAN) per tablet 36300-311-42 Oral aborted Take by mouth [facility] Cholecalciferol 2000 UNT Oral Capsule Ch olecalciferol (VITAMIN D3) 2000 UNITS capsule Cholecalciferol (VITAMIN D3) 2000 UNITS capsule Oral aborted Take by mouth [facility] 24 HR metoprolol succinate 25 MG Extende d Release Oral Tablet metoprolol (TOPROL-XL) 25 MG 24 hr tablet metoprolol (TOPROL-XL) 25 MG 24 hr tablet 25 mg Oral aborted Take 25 mg by mouth [facility] Aspirin 325 MG Oral Tablet aspirin 325 MG tablet aspirin 325 MG tab let 81 mg Oral aborted Take 81 mg by mouth [facility] Insurance Providers Payer name Policy type / Coverage type Policy ID Covered alliance party ID Covered alliance party's relationship to nino Policy Nino Plan Information CELESTINO [id number] SP [id number] CELESTINO [id number] SP [id number] CELESTINO EXCHANGE U [id number] Self [id number] [facility] [id number] Empl [id number] [place] [id number] O [id number] CELESTINO MEDICAID [id number] Emperatriz 7 [id number] CELESTINO MEDICAID [id number] [place] [employer] [place] Other 0 Self 0 [place] [employer] [place] Other 0 Self 0 [place] CARE OF [place] -OP [id number] 18 [id number] [place] [employer] [place] Other 0 Self 0 [place] [employer] [place] Other 0 Self 0 [place] Other 0 Self 0 [place] Other 0 Self 0 [place] [employer] [place] Other 0 Self 0 [place] [employer] [place] Other 0 Self 0 [place] [employer] [place] Other 0 Self 0 [place] [id number] 18 [id number] [place] [employer] [place] Other 0 Self 0 [place] [employer] [place] Other 0 Self 0 [place] [employer] [place] Other 0 Self 0 [place] [employer] [place] Other 0 Self 0 [place] [employer] [place] Other 0 Self 0 [place] Other 0 Self 0 [place] [employer] [place] Other 0 Self 0 POMCO U [id number] Self [id number] [facility] INS [facility] [id number] Empl [id number] STATE INS FUND W [id number] Empl [id number] [place] State Insurance Fund Workers Compensation [id number] Self [id number] [place] [employer] [id number] Self [id number] [employer] [employer] Self [place] State Insurance Fund Workers Compensation Self CELESTINO MEDICAID [id number] Emperatriz 7 [id number] MEDICAID [id number] Emperatriz [id number] POMCO [id number] Emperatriz [id number] [place] Commercial Self STATE INS FUND W [id number] Empl [id number] POM[place] O [id number] S [id number] STATE INSURANCE FUND O [id number] S [id number] STATE INSURANCE FUND O [id number] S [id number] [employer] [id number] SP [id number] POMCO [id number] SP [id number] Problems, Conditions, and Diagnoses Code Display Name Description Problem Type Effective Dates Data Source(s) 54366022 Type 1 diabetes mellitus Type 1 diabetes mellitus Prob rose 06/21/2020 12:00:00 AM EST [place] ([facility], ) R06.02 Shortness of breath Shortness of breath [id number] 1 07/29/2019 12:00:00 AM EST [facility] R91.8 Mass of upper lobe of right lung Mass of upper l obe of right lung [id number] 05/28/2020 12:00:00 AM EST [facility] J90 Pleural effusion, not elsewhere classifi ed Pleural effusion, not elsewhere classified Diagnosis 06/11/2020 09:36:00 AM EST [facility] C79.9 Secondary malignant neoplasm of unspecif ied site Secondary malignant neoplasm of unspecified site Diagnosis 06/08/2020 08:48:00 AM EST [facility] I48.0 Paroxysmal atrial fibrillation Paroxysmal atrial fibri llation Diagnosis 05/28/2020 08:55:00 AM EST [facility] R06.02 Shortness of breath Shortness of breath Diagnosis 1 07/29/2019 08:55:00 AM EST [facility] R91.8 Other nonspecific abnormal finding of maira ng field Other nonspecific abnormal finding of maira Diagnosis 05/28/2020 08:55:00 AM EST [facility] R07.9 Chest pain, unspecified Chest pain, unspecified Diagno sis 05/28/2020 08:55:00 AM [facility] R079 Chest pain, unspecified Chest pain, unspecified Diagno sis 05/07/2020 09:30:00 AM [facility] I10 Essential (primary) hypertension Essential (primary) h ypertension Diagnosis 04/30/2020 08:24:00 AM [facility] E782 Mixed hyperlipidemia Mixed hyperlipidemia Diagnosis 04/30/2020 08:24:00 AM [facility] R5383 Other fatigue Other fatigue Diagnosis 04/30/2020 08:24:00 AM [facility] Z125 Encounter for screening for malignant ne oplasm of prostate Encounter for screening for malignant neoplasm of prostate Diagnosis 0 07:43:00 AM [facility] E291 Testicular hypofunction Testicular hypofunction Diagno sis 08/12/2019 07:43:00 AM [facility] E8352 Hypercalcemia Hypercalcemia Diagnosis 08/12/2019 07:43:00 AM [facility] K03177 Personal history of nicotine dependence Personal history of nicotine dependence Diagnosis 07/07/2019 01:18:00 PM [facility] 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 Diagnosis 07/07/2019 01:18:00 PM [facility] Z7982 alf (current) use of aspirin alf (cu rrent) use of aspirin Diagnosis 07/07/2019 01:18:00 PM [facility] J449 Chronic obstructive pulmonary disease, u nspecified Chronic obstructive pulmonary disease, unspecified Diagnosis 07/07/2019 01:18:00 PM [facility] E119 Type 2 diabetes mellitus without complic ations Type 2 diabetes mellitus without complications Diagnosis 07/07/2019 01:18:00 PM [facility] M7022 Olecranon bursitis, left elbow Olecranon bursitis, lef t elbow Diagnosis 07/07/2019 01:18:00 PM [facility] R2232 Localized swelling, mass and lump, left upper limb Localized swelling, mass and lump, left upper limb Diagnosis 07/07/2019 01:18:00 PM EST [facility] Y9389 Activity, other specified Activity, other specified Di agnosis 07/07/2019 01:18:00 PM [facility] Surgeries/Procedures Procedure Description Date Indications Data Source(s) INSERTION INDWELLING TUNNELED PLEURAL CATHETER 020 12:00:00 AM EST [facility] ([facility], ) DEMO&/EVAL OF PT UTILIZ AERSL GEN/NEB/INHLR/IPPB 06/01 12:00:00 AM EST [facility] ([facility], ) ECG ROUTINE ECG W/LEAST 12 LDS W/I&R POCT AMB EKG Routine 05/28/2020 9:15 AM EST Chest pain, unspecified type 05/28/2020 02:15:00 PM EST [place] pain, unspecified type [facility] Chest pain, unspecified type ELECTROCARDIOGRAM, COMPLETE (EKG) ELECTROCARDIOGRAM, COMPLET E (EKG) 05/07/2020 12:00:00 AM EST [place] ([facility]) ELECTROCARDIOGRAM, COMPLETE (EKG) ELECTROCARDIOGRAM, COMPLET E (EKG) 05/07/2020 12:00:00 AM [facility] ([facility]) Computed tomography angiography of thorax (procedure) 04/11/2020 08:44:00 PM EDT [facility] Computed tomography angiography of thorax (procedure) 04/11/2020 08:44:00 PM [facility] Plain chest X-ray (procedure) 04/11/2020 05:34:00 PM E [facility] CT Head without contrast 04/11/2020 05:34:00 PM [facility] Plain chest X-ray (procedure) 04/11/2020 05:34:00 PM E [facility] CT Head without contrast 04/11/2020 05:34:00 PM [facility] Blood Culture 04/11/2020 12:00:00 AM [facility] SARS-CoV-2 (PCR) Interpretation 04/11/2020 12:00:00 AM [facility] Blood Culture 04/11/2020 12:00:00 AM [facility] SARS-CoV-2 (PCR) Interpretation 04/11/2020 12:00:00 AM EDT [facility] ELECTROCARDIOGRAM, COMPLETE (EKG) ELECTROCARDIOGRAM, COMPLET E (EKG) 08/20/2019 12:00:[address] [facility]) FECAL BLOOD ASSAY TEST (waived laboratory) FECAL BLOOD ASSAY TEST (waived laboratory) 08/20/2019 12:00:00 AM [facility]) O2 SATURATION> 88% /OLI>55 O2 SATURATION> 88% /OLI>55 2019 12:00:[address] [facility]) FECAL BLOOD ASSAY TEST FECAL BLOOD ASSAY TEST 08/20/2019 12:00:[address] [facility]) ELECTROCARDIOGRAM, COMPLETE (EKG) ELECTROCARDIOGRAM, COMPLET E (EKG) 08/20/2019 12:00:[address] [facility]) O2 SATURATION> 88% /OLI>55 O2 SATURATION> 88% /OLI>55 2019 12:00:[address] [facility]) Blood culture for bacteria, including anaerobic screen (proc edure) 07/07/2019 12:00:00 AM [facility] l Gram stain microscopy (procedure) 07/07/2019 12:00:00 AM [facility] Aerobic microbial culture (procedure) 07/07/2019 12:00 :00 AM [facility] Blood culture for bacteria, including anaerobic screen (proc edure) 07/07/2019 12:00:00 AM [facility] l Gram stain microscopy (procedure) 07/07/2019 12:00:00 AM [facility] Aerobic microbial culture (procedure) 07/07/2019 12:00 :00 AM [facility] HbA1c (Glycosolated) (waived laboratory) HbA1c (Glycos olated) (waived laboratory) 06/25/2019 12:00:00 AM [facility] ([facility]) CAPILLARY BLOOD DRAW CAPILLARY BLOOD DRAW 06/25/2019 12:00:00 AM [facility]) GLUCOSE (waived laboratory) GLUCOSE (waived laboratory) 12/2019 12:00:00 AM [facility]) O2 SATURATION> 88% /OLI>55 O2 SATURATION> 88% /OLI>55 2019 12:00:00 AM EST [place] ([facility]) Results ID Date Data Source [id number] 07/15/2020 10:32:00 AM EST [facility] Name Value Range Interpretation Code Description Data Shelly rce(s) Supporting Document(s) SARS-CoV-2 (COVID 19) NEGATIVE - SARS-CoV-2 (COVID19) [facility] This lab was ordered by [facility] a nd reported by [facility]. ID Date Data Source [id number] 07/03/2020 09:52:00 AM EST [facility] Name Value Range Interpretation Code Description Data Shelly rce(s) Supporting Document(s) SARS-CoV-2 (COVID 19) NEGATIVE - SARS-CoV-2 (COVID19) [facility] This lab was ordered by [facility] a nd reported by [facility]. ID Date Data Source [id number] 06/22/2020 12:00:[address] [facility] oly Imaging Lizett Cooley MD Patient Name: TOLU [id number] Date of : 1955[place] [address] Date of Exam: [facility]#: Fax: [phone] EXAM: CHEST (2 VIEW) X-RAYCLINICAL [...] rce(s) Supporting Document(s) ID Date Data Source [id number] 06/08/2020 04:28:00 AM EST [facility] Name Value Range Interpretation Code Description Data Shelly rce(s) Supporting Document(s) SARS coronavirus 2 RNA [Presence] in Res piratory specimen by KRISTEN with probe detection [facility] This lab was ordered by [facility] a nd reported by [facility]. ID Date Data Source [id number] 06/26/2020 06:36:00 PM [facility] Anatomic Molecular Pathology ReportName: TOLU RATLIFFMRN: [id number] Number: [id number] Date: 06/08/2020 00:00Received Date: 06/16/2020 09:03Physician(s): BETHANY FELIX MD HAGHIR, SHAHANDEH F,MDCopy To:LIZETT COOLEY,[facility]imen[facility]s) ReceivedA: Pleural fluid, Formalin Block [id number] A2 received from [facility] in [place], [place], ROS1 by FISHDiagnosisTEST:ROS1 gene rearrangements by [...] Miranda M.D. Attending Pathologist 06/26/2020 18:36:59Reported at [address] [place] [address]. Gross DescriptionMETHODOLOGY:Interphase FISH is performed on paraffin embedded NSCLC utilizing thecombined [employer] Molecular LSI ROS1(Eliza) and ROS1(Tel) ROS1 Probes: 1)3'-ROS1(Eliza), 557 kb, labeled with SpectrumGreen, and 2) 5'- ROS1(Tel),317kb, labeled with SpectrumOrange. Tumor cells with no EVN6ssdoneepmtbpds have 2 yellow signals (fused orange and [...] and its performance characteristics weredetermined by the [facility],and it has been authorized for clinical use by [facility]. The test has not been cleared or approved by the U.S. Food andDrug Administration. The analyte specific reagents used in this assay donot require FDA approval. REFERENCES: 1. SHANTELL Juarez, Daisy AT, Theparadise RIVAS et al. Identifying and Targeting YVW9Pwca Fusions in NonSmall Cell Lung Cancer. Clin Cancer Res 2012; 18(17);64051312.2. Iqbal, Severo AT. Novel Targets in Non-Small Cell Lung Cancer:ROS-1 and RET fusions. The Oncologist. 2013;18:865-875.This report may include one or more immunohistochemical stain results thatuse analyte specific reagents. All positive and negative controls havebeen reviewed by the attending pathologist and are satisfactory. The testswere developed and their performance characteristics determined by [facility] Pathology department. They have not been cleared or approved by the USFood and Drug Administration. The FDA has determine d that such clearanceor approval is not necessary. Name Value Range Interpretation Code Description Data Shelly rce(s) Supporting Document(s) ID Date Data Source [id number] 06/25/2020 12:10:00 PM [facility] Anatomic Molecular Pathology ReportName: TOLU RATLIFFMRN: [id number] Number: [id number] Date: 06/08/2020 00:00Received Date: 06/16/2020 09:06Physician(s): BETHANY FELIX MD HAGHIR, SHAHANDEH F,MDCopy To:LIZETT COOLEY,[facility]pecimen(s) ReceivedA: Pleural fluid, Formalin Block [id number] A2 received from [facility] in [place], [place] BRAF Mutation AnalysisDiagnosisTESTS:BRAF V600E mutation (1799 [...] Miranda M.D. Attending Pathologist 06/25/2020 12:10:33Reported at [address] [place] [id number]. Gross DescriptionMETHODOLOGY:BRAF V600E(1799 T>A) mutation at exon [...] theamounts of PCR products, and analyzed by Layer real timeinstrument. The analytical sensitivity (or minimum percentage of mutantDNA needed) is approximately 10% given sufficient DNA input. Test development and its performance characteristics were determined bythe [facility], and has beenauthorized for clinical use by [facility]. Thetest has not been cleared or approved by the U.S. Food and DrugAdministration. The analyte specific reagents used in this assay do notrequire FDA approval. REFERENCES: 1. Dolores S, Deandre Cortés, et al. Detection of BRAF S658Qzhyqeimt in colorectal cancer-comparison of automatic sequencing and realtime chemistry methodology. J Mol Diagn. 2006; 8:442023.2. Raul L, Chica TJ, Anyeli N, et al. BRAF mutation analysis in fineneedle aspiration (FNA) cytology of the thyroid. Diagn Mol Pa thol.2006;15:780837.3. Brenda PK, Glen ME, Lelo M, et al. Clinical characteristics ofpatients with lung adenocarcinomas harboring BRAF mutations. J Clin Oncol.2011;29:4429-8224.This report may include one or more immunohistochemical stain results thatuse analyte specific reagents. All positive and negative controls havebeen reviewed by the attending pathologist and are satisfactory. The testswere developed and their performance characteristics determined by [facility] Pathology department. They have not been cleared or approved by the USFood and Drug Administration. The FDA has determined that such clearanceor approval is not necessary. Name Value Range Interpretation Code Description Data Shelly rce(s) Supporting Document(s) ID Date Data Source [id number] 06/25/2020 09:32:00 [facility] Anatomic Molecular Pathology ReportName: TOLU RATLIFFNICK: [id number] Number: [id number] Date: 06/08/2020 00:00Received Date: 06/16/2020 09:04Physician(s): BETHANY FLEIX MD HAGHIR, SHAHANDEH F,[facility] To:LIZETT COOLEYST. [facility]ENTERpecimen(s) ReceivedA: Pleural fluid, Formalin Block [id number] A2 received from [facility] in [place], [place] EGFRDiagnosisTEST: EGFR gene mutations (exon 19 [...] indicated. Presence of exon 19 deletions, exon 81L118B or L861Q, exon 18 G719A or exon [...] Miranda M.D. Attending Pathologist 06/25/2020 09:32:10Reported at [address] [place] [id number]. Gross DescriptionMETHODOLOGY:The therascreen EGFR RGQ PCR Kit ([employer], [place], [place]) is a real-timequalitative PCR assay used on the [employer] instrument for thedetection of seven types of [...] factor receptormutations in lung cancer. Nature Review/Cancer. 2007;2396-2762.This report may include one or more immunohistochemical stain results thatuse analyte specific reagents. All positive and negative controls havebeen reviewed by the attending pathologist and are satisfactory. The testswere developed and their performance characteristics determined by [facility] Pathology department. They have not been cleared or approved by the USFood and Drug Administration. The FDA has determined that such clearanceor approval is not necessary. Name Value Range Interpretation Code Description Data Shelly rce(s) Supporting Document(s) ID Date Data Source [id number] 06/25/2020 09:18:00 AM [facility] Anatomic Molecular Pathology ReportName: TOLU RATLIFFMRN: [id number] Number: [id number] Date: 06/08/2020 00:00Received Date: 06/16/2020 09:05Physician(s): BETHANY FELIX MD HAGHIR, SHAHANDEH F,[facility] To:LIZETT COOLEY,[facility]imen(s) ReceivedA: Pleural fluid, Formalin Block [id number] A2 received from [facility] in [place], [place] KRAS Mutation AnalysisDiagnosisTEST:KRAS gene mutations by [...] Miranda M.D. Attending Pathologist 06/25/2020 09:18:25Reported at [address] [place] [address]. Gross DescriptionMETHODOLOGY:The therascreen KRAS RGQ PCR Kit is a real-time qualitative PCR assay usedon the [employer] instrument for the detection of seven somaticmutations [...] Morejon, Terri JM, Somepeter MR, et al. [place] Societyof Clinical Oncology provisional clinical opinion: testing for KRAS genemutations in patients with metastatic colorectal carcinoma to predictresponse to anti-epidermal growth factor receptor monoclonal antibodytherapy. J Clin Oncol 27:0055-6386, 2009. 2. Magdalena S , Peg Javed , GAILNA Mace, et al.Biomarkers predicting clinical outcome of epidermal growth factor receptortargeted therapy in metastatic colorectal cancer. J Natl Cancer Skom133:55809792, 2009.This report may include one or more immunohistochemical stain results thatuse analyte specific reagents. All positive and negative controls havebeen reviewed by the attending pathologist and are satisfactory. The testswere developed and their performance characteristics determined by [facility] Pathology department. They have not been cleared or approved by the USFood and Drug Administration. The FDA has determined that such clearanceor approval is not necessary. Name Value Range Interpretation Code Description Data Shelly rce(s) Supporting Document(s) ID Date Data Source [id number] 06/25/2020 09:10:00 AM [facility] Anatomic Molecular Pathology ReportName: TOLU RATLIFFMRN: [id number] Number: [id number] Date: 06/08/2020 00:00Received Date: 06/16/2020 09:01Physician(s): BETHANY FELIX MD HAGHIR, SHAHANDEH F,MDCopy To:LIZETT COOLEY,[facility]pecimen(s) ReceivedA: Pleural fluid, Formalin Block [id number] [id number] received from [facility] in [place], [place], ALK by FISHDiagnosisTEST:ALK gene rearrangements by [...] Miranda M.D. Attending Pathologist 06/25/2020 09:10:47Reported at [address] [place] [id number]. Gross DescriptionMETHODOLOGY:Interphase FISH is performed on paraffin embedded NSCLC utilizing theW[employer] Molecular ALK Break Apart FISH Probe Kit. [...] the special procedure laboratory of Department of Pathology,[facility]. This report may include one or more immunohistochemical stain results thatuse analyte specific reagents. All positive and negative controls havebeen reviewed by the attending pathologist and are satisfactory. The testswere developed and their performance characte ristics determined by [facility] Pathology department. They have not been cleared or approved by the USFood and Drug Administration. The FDA has determined that such clearanceor approval is not necessary. Name Value Range Interpretation Code Description Data Shelly rce(s) Supporting Document(s) ID Date Data Source [id number] 05/07/2020 09:36:00 AM [facility] ELIZ[place]ETH ([facility]) Name Value Range Interpretation Code Description Data Shelly rce(s) Supporting Document(s) Reported Physicians See Note Reported Physici karoline JOHNSON ([facility]) Note: Reported Physicians:Ordering: Esha De La Garza AAttending: ESHA TALAMANTESConsulting: Alex TALAMANTES To: Esha Talamantes ID Date Data Source [id number] 05/07/2020 09:36:00 AM [facility] ([facility]) Name Value Range Interpretation Code Description Data Shelly rce(s) Supporting Document(s) Procalcitonin [Mass/volume] in Serum or Plasma by Immunoassay 0.04 ng/mL Procalcitonin [place] ([facility]) Note: A procalcitonin (PCT) level above [...] obtained.Responsible Observer: (rfl) ID Date Data Source [id number] 05/07/2020 09:36:00 AM [facility] ([facility]) Name Value Range Interpretation Code Description Data Shelly rce(s) Supporting Document(s) Reported Physicians See Note Reported [facility] ([facility]) Note: Reported Physicians:Ordering: Beard e, Esha AAttending: VINITA, JOCELYNConsulting: VINITA, JOCELYNCopy To: Vinita, Esha ID Date Data Source [id number] 05/07/2020 09:36:00 AM [facility] ELIZABETH ([facility]) Name Value Range Interpretation Code Description Data Shelly rce(s) Supporting Document(s) SED RATE 18 mm/hr SED RATE [place] ([facility]) Note: Responsible Observer: (CM) SED RATE REENTER 18 SED [facility] ([facility]) Note: Responsible Observer: (CM) ID Date Data Source [id number] 05/07/2020 09:36:00 AM [facility] ([facility]) Name Value Range Interpretation Code Description Data Shelly rce(s) Supporting Document(s) Reported Physicians See Note Reported [facility] ([facility]) Note: Reported Physicians:Ordering: Beard e, Esha AAttending: VINITA, JOCELYNConsulting: VINITA, JOCELYNCopy To: Vinita, Esha ID Date Data Source [id number] 05/07/2020 09:36:00 AM EST [facility] ([facility]) Name Value Range Interpretation Code Description Data Shelly rce(s) Supporting Document(s) CRP-HS 8.40 MG/L Above high normal CRP-HS [facility] Ninfa ([facility]) Note: [facility]/S HS-CRP CUT-OFF : RELATIVE RISK: <1.0 mg/L Low 1.0 - 3.0 mg/L Average >3.0 mg/L High Optimally, the average of HS-CRP results repeated two weeks apart should be used for risk assessment.Responsible Observer: () ID Date Data Source [id number] 05/07/2020 09:36:00 AM EST [facility] ([facility]) Name Value Range Interpretation Code Description Data Shelly rce(s) Supporting Document(s) Reported Physicians See Note Reported [facility] ([facility]) Note: Reported Physicians:Ordering: Beard e, Esha AAttending: VINITA, JOCELYNConsulting: VINITA, JOCELYNCopy To: Vinita, Esha ID Date Data Source [id number] 05/07/2020 09:36:00 AM EST [place] ([facility]) Name Value Range Interpretation Code Description Data Shelly rce(s) Supporting Document(s) BNP 211 PG/ML Above high normal BNP [place] ([facility]) Note: Responsible Observer: () ID Date Data Source [id number] 05/07/2020 09:36:00 AM EST [facility] ([facility]) Name Value Range Interpretation Code Description Data Shelly rce(s) Supporting Document(s) Reported Physicians See Note [facility] Note: Reported Physicians:Ordering: Beard e, Esha AAttending: VINITA, JOCELYNConsulting: VINITA, JOCELYNCopy To: Vinita, Esha ID Date Data Source [id number] 05/07/2020 09:36:00 AM EST [facility] ([facility]) Name Value Range Interpretation Code Description Data Shelly rce(s) Supporting Document(s) TROPONIN T <0.01 NG/ML TROPONIN T [place] ([facility]) Note: TROPONIN T0.1 ng/ml Recommended as the clinical threshold value forTroponin T.Responsible Observer: () ID Date Data Source [id number] 05/07/2020 09:36:00 AM EST [facility] ([facility]) Name Value Range Interpretation Code Description Data Shelly rce(s) Supporting Document(s) Reported Physicians See Note Reported Physici ans [facility] ([facility]) Note: Reported Physicians:Ordering: Beard e, Esha AAttending: VINITA, JOCELYNConsulting: VINITA, JOCELYNCopy To: Vinita Esha ID Date Data Source [id number] 05/07/2020 09:36:00 AM EST [facility] ([facility]) Name Value Range Interpretation Code Description Data Shelly rce(s) Supporting Document(s) #BASO 0.05 10\\^3/uL #BASO [facility] ([facility]) Note: Responsible Observer: () #EOS 0.38 10\\^3/uL #EOS [facility] ([facility]) Note: Responsible Observer: () #IG 0.03 10\\^3/uL #IG [facility] ([facility]) Note: Responsible Observer: () #LYMPH 1.37 10\\^3/uL #LYMPH [facility] ([facility]) Note: Responsible Observer: () #MONO 0.85 10\\^3/uL #MONO [facility] ([facility]) Note: Responsible Observer: () #NEUT 6.85 10\\^3/uL #NEUT [facility] ([facility]) Note: Responsible Observer: () #NRBC 0.00 10\\^3/uL #NRBC [facility] ([facility]) Note: Responsible Observer: () %EOS 5 % %EOS [facility] ([facility]) Note: Responsible Observer: (CLD) %IG 0.3 % Above high normal %IG [facility] ([facility]) Note: Responsible Observer: () %LYMPH 13 % Below low normal %LYMPH [facility] ([facility]) Note: Responsible Observer: (CLD) %MONO 7 % %MONO [facility] ([facility]) Note: Responsible Observer: (CLD) %NRBC 0.0 % %NRBC [facility] ([facility]) Note: Responsible Observer: () BAND 0 % BAND [facility] ([facility]) Note: Responsible Observer: (CLD) BASO 0.5 % BASO [facility] ([facility]) Note: Responsible Observer: () Blasts [#] in Body fluid by Manual count 0 % BLASTS [facility] ([facility]) Note: Responsible Observer: (CLD) CBC W/MANUAL DIFF See Note CBC W/MANUAL DIFF [facility] ([facility]) Note: CO RRECTED REPORT COMPLETE BLOOD COUNTResponsible Observer: (CLD) EOS 4.0 % EOS [facility] ([facility]) Note: Responsible Observer: () Hematocrit [Pure volume fraction] of Blood by Automated count 41.4 % HEMATOCRIT [facility] ([facility]) Note: Responsible Observer: () Hemoglobin [Mass/volume] in Mixed venous blood by Oximetry 14.0 g/d L HEMOGLOBIN [facility] ([facility]) Note: Responsible Observer: () LYMPH 14.4 % Below low normal LYMPH [facility] ([facility]) Note: Responsible Observer: () MANUAL DIFF SEE BELOW MANUAL DIFF [facility] ([facility]) Note: Responsible Observer: (CLD) MCH 30.2 pg MCH [facility] ([facility]) Note: Responsible Observer: () MCHC 33.8 g/dL MCHC [facility] ([facility]) Note: Responsible Observer: () MCV 89.2 fL MCV [facility] ([facility]) Note: Responsible Observer: () MONO 8.9 % Above high normal MONO [facility] ([facility]) Note: Responsible Observer: () MPV 8.6 fL MPV [facility] ([facility]) Note: Responsible Observer: () NEUT 71.9 % NEUT [place] ([facility]) Note: Responsible Observer: () Platelets [#/area] in Blood by Microscopy high power field 300 10\\^ 3/uL PLATELETS [place] ([facility]) Note: Responsible Observer: () RBC 4.64 10\\^6/uL RBC [place] ([facility]) Note: Responsible Observer: () RBC MORPH NOT INDICATED RBC MORPH [place] ([facility]) Note: FOLLOWING RE SULTS REPORTED IN ERROR MANUAL DIFF NOTINDICATED <-- *Previously reported in error 05/07/20.0948.MD . . .M{ CORRECTResponsible Observer: () RDW 12.2 % RDW [place] ([facility]) Note: Responsible Observer: () SEGS 75 % SEGS [place] ([facility]) Note: Responsible Observer: (MOISES) WBC 9.5 10\\^3/uL WBC [place] ([facility]) Note: Responsible Observer: () ID Date Data Source [id number] 05/12/2020 06:51:00 AM EST [facility] Name Value Range Interpretation Code Description Data Shelly rce(s) Supporting Document(s) Procalcitonin [Mass/volume] in Serum or Plasma 0.04 ng/mL 0.00-0.08 [facility] A procalcitonin (PCT) level above 2.0 [...] ng/mL are obtained. ID Date Data Source [id number] 05/07/2020 10:37:00 AM [facility] Name Value Range Interpretation Code Description Data Shelly rce(s) Supporting Document(s) BNP 211 PG/ML 0 - 125 H [facility] ID Date Data Source [id number] 05/07/2020 10:37:00 AM [facility] Name Value Range Interpretation Code Description Data Shelly rce(s) Supporting Document(s) C reactive protein [Mass/volume] in Serum or Plasma by High sensitivity method 8.40 MG/L 1.00 - 3.00 H [facility] CDC/S HS-CRP CUT-OFF: RELATIVE RISK: <1.0 mg/L Low 1.0 - 3.0 mg/L Average >3.0 mg/L High Optimally, the average of HS-CRP results repeated two weeks apart should be used for risk assessment. ID Date Data Source [id number] 05/07/2020 10:27:00 AM [facility] Value Range Interpretation Code Description Data Shelly rce(s) Supporting Document(s) CBC W/MANUAL DIFF [facility] CORRECTE D REPORT COMPLETE BLOOD COUNT Leukocytes [#/volume] in Blood by Automated count 9.5 10^3/uL 4.2 - 1 1.0 [facility] Erythrocytes [#/volume] in Blood by Automated count 4.64 10^6/uL 4. 50 - 6.30 [facility] Hemoglobin [Mass/volume] in Blood 14.0 g/dL 14.0 - 16.0 [facility] Hematocrit [Volume Fraction] of Blood by Automated count 41.4 % 4 1.0 - 51.0 [facility] Erythrocyte mean corpuscular volume [Entitic volume] by Auto mated count 89.2 fL 80.0 - 94.0 [facility] Erythrocyte mean corpuscular hemoglobin [Entitic mass] by Automated count 30.2 pg 27.0 - 34.0 [facility] Erythrocyte mean corpuscular hemoglobin concentration [Mass/volume] by Automated count 33.8 g/dL 31.0 - 36.0 [facility] Erythrocyte distribution width [Ratio] by Automated count 12.2 % 11.5 - 14.8 [facility] Platelets [#/volume] in Blood by Automated count 300 10^3/uL 150 - 45 0 [facility] Platelet mean volume [Entitic volume] in Blood by Automated count 8.6 fL 7.4 - 10.4 [facility] Neutrophils/100 leukocytes in Blood by Automated count 71.9 % 37. 0 - 80.0 [facility] Lymphocytes/100 leukocytes in Blood by Manual count 14.4 % 25.0 - 40.0 L [facility] Monocytes/100 leukocytes in Blood by Automated count 8.9 % 3.0 - 8.0 H [facility] Eosinophils/100 leukocytes in Blood by Automated count 4.0 % 0.0 - 7.0 [facility] Basophils/100 leukocytes in Blood by Automated count 0.5 % 0.0 - 2.0 [facility] %IG 0.3 % 0.0 - 0.0 H [facility] al %NRBC 0.0 % 0.0 - 0.0 [facility] al Neutrophils [#/volume] in Blood by Automated count 6.85 10^3/uL 2.00 - 6.90 [facility] Lymphocytes [#/volume] in Blood by Automated count 1.37 10^3/uL 0.60 - 3.40 [facility] Monocytes [#/volume] in Blood by Automated count 0.85 10^3/uL 0.00 - 0.90 [facility] Eosinophils [#/volume] in Blood by Automated count 0.38 10^3/uL 0.00 - 0.70 [facility] Basophils [#/volume] in Blood by Automated count 0.05 10^3/uL 0.00 - 0.20 [facility] #IG 0.03 10^3/uL 0.00 - 0.10 [facility] #NRBC 0.00 10^3/uL 0.00 - 0.00 [facility] MANUAL DIFF SEE BELOW [facility] Segmented neutrophils/100 leukocytes in Blood by Manual count 75 % 37 - 80 [facility] BAND 0 % 0 - 5 [facility] %LYMPH 13 % 25 - 40 L [facility] %MONO 7 % 3 - 8 [facility] %EOS 5 % 0 - 7 [facility] Blasts/100 leukocytes in Blood by Manual count 0 % [facility] RBC MORPH NOT INDICATED [facility] FOLLOWING RESULTS REPORTED IN ERROR MANUAL DIFF { CORRECT ID Date Data Source [id number] 05/07/2020 10:26:00 AM [facility] Name Value Range Interpretation Code Description Data Shelly rce(s) Supporting Document(s) TROPONIN T <0.01 NG/ML 0.00 - 0.10 [facility] ospital TROPONIN T0.1 ng/ml Recommended as the c linical threshold value forTroponin T. ID Date Data Source [id number] 05/07/2020 10:06:00 AM [facility] Name Value Range Interpretation Code Description Data Shelly rce(s) Supporting Document(s) Erythrocyte sedimentation rate by Westergren method 18 mm/hr 0 - 20 [facility] SED RATE REENTER 18 [facility] ID Date Data Source [id number] 04/30/2020 08:37:00 AM EST [place] ([facility]) Name Value Range Interpretation Code Description Data Shelly rce(s) Supporting Document(s) Reported Physicians See Note Reported Physici ans [place] ([facility]) Note: Reported Physicians:Ordering: Esha De La Garza AAttending: ESHA TALAMANTESConsulting: JUSTUS TALAMANTESYNCopninfa To: Esha Talamantes ID Date Data Source [id number] 04/30/2020 08:37:00 AM EST [place] ([facility]) Name Value Range Interpretation Code Description Data Shelly rce(s) Supporting Document(s) CPK 59 U/L CPK [place] ([facility]) Note: Responsible Observer: (TAD) ID Date Data Source [id number] 04/30/2020 08:37:00 AM EST [place] ([facility]) Name Value Range Interpretation Code Description Data Shelly rce(s) Supporting Document(s) Reported Physicians See Note Reported Physici ans [place] ([facility]) Note: Reported Physicians:Ordering: Esha De La Garza AAttending: ESHA TALAMANTESConsulting: ESHA TALAMANTESCopninfa To: Esha Talamantes ID Date Data Source [id number] 04/30/2020 08:37:00 AM EST [place] ([facility]) Name Value Range Interpretation Code Description Data Shelly rce(s) Supporting Document(s) Cholesterol [Moles/volume] in Pericardial fluid 162 MG/DL CHOLESTEROL [place] ([facility]) Note: Responsible Observer: (TAD) CVE PANEL See Note CVE PANEL [place] ([facility]) Note: LIPID PANELResponsible Observe r: (TAD) HDL 40 MG/DL HDL [place] ([facility]) Note: Responsible Observer: (TAD) Cholesterol in LDL [Mass/volume] in Serum or Plasma by Direct as say 91 mg/dL LDL [place] ([facility]) Note: Responsible Observer: (TAD) LDL/HDL 2.28 LDL/HDL [place] ([facility]) Note: CVE RISK CHOL/HD L LDL/HDLMEN: 1/2 AVERAGE 3.43 1.00 AVERAGE 4.97 3.55 2X AVERAGE 9.55 6.25 3X AVERAGE 23.99 7.99WOMEN: 1/2 AVERAGE 3.27 1.47 AVERAGE 4.44 3.22 2X AVERAGE 7.05 5.03 3X AVERAGE 11.04 6.14Responsible Observer: (TAD) RISK FACTOR 4.1 RISK FACTOR [place] ([facility]) Note: Responsible Observer: (TAD) TRIGLYCERIDES 198 MG/DL Above high normal [facility] Note: Responsible Observer: (TAD) ID Date Data Source [id number] 04/30/2020 08:37:00 AM EST [place] ([facility]) Name Value Range Interpretation Code Description Data Shelly rce(s) Supporting Document(s) Reported Physicians See Note Reported Physici ans [place] ([facility]) Note: Reported Physicians:Ordering: Beard e, Esha AAttending: VINITA, JOCELYNConsulting: VINITA, JOCELYNCopy To: Vinita, Esha ID Date Data Source [id number] 04/30/2020 08:37:00 AM [facility] ([facility]) Name Value Range Interpretation Code Description Data Shelly rce(s) Supporting Document(s) URIC ACID 5.1 MG/DL URIC ACID [place] ([facility]) Note: Responsible Observer: (TAD) ID Date Data Source [id number] 04/30/2020 08:37:00 AM EST [place] ([facility]) Name Value Range Interpretation Code Description Data Shelly rce(s) Supporting Document(s) Reported Physicians See Note Reported [facility] ([facility]) Note: Reported Physicians:Ordering: Beard e, Esha AAttending: VINITA, JOCELYNConsulting: VINITA, JOCELYNCopy To: Vinita, Esha ID Date Data Source [id number] 04/30/2020 08:37:00 AM EST [place] ([facility]) Name Value Range Interpretation Code Description Data Shlely rce(s) Supporting Document(s) TSH 2.19 uIU/mL TSH [place] ([facility]) Note: Responsible Observer: (TAD) ID Date Data Source [id number] 04/30/2020 09:31:00 AM [facility] Name Value Range Interpretation Code Description Data Shelly rce(s) Supporting Document(s) Thyrotropin [Units/volume] in Serum or Plasma by Detec tion limit <= 0.05 mIU/L 2.19 uIU/mL 0.47 - 5.01 [facility] ID Date Data Source [id number] 04/30/2020 09:27:00 AM EST [facility] Name Value Range Interpretation Code Description Data Shelly rce(s) Supporting Document(s) Urate [Mass/volume] in Serum or Plasma 5.1 MG/DL 2.5 - 8.5 [facility] ID Date Data Source [id number] 04/30/2020 09:27:00 AM EST [facility] Name Value Range Interpretation Code Description Data Shelly rce(s) Supporting Document(s) Creatine kinase [Enzymatic activity/volume] in Serum or Plasma 5 9 U/L 30 - 170 [facility] ID Date Data Source [id number] 04/30/2020 09:27:00 AM [facility] Name Value Range Interpretation Code Description Data Shelly rce(s) Supporting Document(s) [facility] Cholesterol [Mass/volume] in Serum or Plasma 162 MG/DL 131 - 200 [facility] Deprecated Triglyceride [Mass/volume] in Serum or Plasma 198 MG/DL 3 5 - 160 H [facility] HDL 40 MG/DL 29 - 86 [facility] Cholesterol in LDL [Mass/volume] in Serum or Plasma by Direc t assay 91 mg/dL 65 - 175 [facility] Cholesterol.total/Cholesterol in HDL [Mass Ratio] in Serum o r Plasma 4.1 3.4 - 4.9 [facility] LDL/HDL 2.28 1.00 - 3.55 [facility] ital CVE RISK CHOL/HDL LDL/HDLMEN: 1/2 AVERAGE 3.43 1.00 AVERAGE 4.97 3.55 2X AVERAGE 9.55 6.25 3X AVERAGE 23.99 7.99WOMEN: 1/2 AVERAGE 3.27 1.47 AVERAGE 4.44 3.22 2X AVERAGE 7.05 5.03 3X AVERAGE 11.04 6.14 ID Date Data Source [id number] 04/12/2020 09:42:00 AM EDT [facility] Name: TOLU RATLIFF : 1955 Age: 64 MR#: [id number] Admit Date: 04/11/20 Provider: Honorio De Souza [...] % (Auto) 68.7, Lymph % (Auto) 20.9, [place] % (Auto) 8.4, Eos % (Auto) 1.2, [...] earance Clear, Urine pH 5.0, Ur Specific [place] 1.010,Urine Protein Negative, Urine Ketones Negative, Urine [...] 94.0 H, Lymph % (Auto) 4.2 L, [place] % (Auto) 1.2 L, Eos % (Auto) [...] 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 Pt was clinically and vitally stable [...] metformin 500 mg PO DAILY 04/11/20 [History] wpfpgagrfubz-eauchtei-pwoani 1 tab PO DAILY 04/11/20 [History] azithromycin [...] PRN (Reason: Shortness Of Breath) RF: 0 dzgiljzccioh-[id number] Tablet 1 tab PO DAILY RF: 0 [...] rce(s) Supporting Document(s) ID Date Data Source [id number] 04/12/2020 07:40:00 AM EDT [facility] @04/12/20 0729: MANUAL DIFF added. RFLXG = DIFF. @04/12/20 0729: MANUAL DIFF added. RFLXG = DIFF. Name Value Range Interpretation Code Description Data Shelly rce(s) Supporting Document(s) Leukocytes [#/volume] in Blood by Automated count 14.6 10*3/uL 4.45-10.71 Above high normal [facility] Erythrocytes [#/volume] in Blood by Automated count 4.85 10*6/uL 4.3- 6.1 N [facility] Hemoglobin [Moles/volume] in Blood 14.7 g/dL 13-18 N [facility] Hematocrit [Volume Fraction] of Blood by Automated count 44.4 % 4 2-52 N [facility] Erythrocyte mean corpuscular volume [Ent itic volume] in Cord blood by Automated count 91.5 fL 80-[address] [facility] ital Erythrocyte mean corpuscular hemoglobin [Entitic mass] by Automated count 30.3 pg 27-[address] [facility] Erythrocyte mean corpuscular hemoglobin concentration [Mass/volume] in Cord blood 33.1 g/dL 33-[address] [facility] ital Erythrocyte distribution width [Entitic volume] by Automated count 13 % 11-15 N [facility] Platelets [#/volume] in Blood by Automated count 235 10*3/uL 130-472 N [facility] Platelet mean volume [Entitic volume] in Blood 9.5 fL 9.1-13.1 N [facility] Neutrophils/100 leukocytes in Blood by Automated count 94.0 % 41-77 Above high normal [facility] @PERFORM SLIDE SCAN IF NOT AGREE MAN DIF F@DOCUMENT SLIDE SCAN COMMENT Neutrophils [#/volume] in Blood by Automated count 13.8 U 1.7-7.6 Above high normal [facility] Lymphocytes/100 leukocytes in Blood by Automated count 4.2 % 14-46 Below low normal [facility] Lymphocytes [#/volume] in Blood by Automated count 0.6 U 0.6-4.6 N [facility] Monocytes/100 leukocytes in Blood by Automated count 1.2 % 4-12 Below low normal [facility] Monocytes [#/volume] in Blood by Automated count 0.2 U 0.2-1.2 N [facility] Eosinophils/100 leukocytes in Blood by Automated count 0.0 % 0-7 N [facility] Eosinophils [#/volume] in Blood by Automated count 0.0 U 0.0-0.5 N [facility] Basophils/100 leukocytes in Blood by Automated count 0.1 % 0.4-1.3 Below low normal [facility] Basophils [#/volume] in Blood by Automated count 0.0 U 0.0-0.2 N [facility] NUCLEATED RED BLOOD CELL 0 % [facility] NUCLEATED RED BLOOD CELL# 0 U [facility] Immature granulocytes [Presence] in Blood by Automated count 0-2 N [facility] Immature granulocytes [#/volume] in Blood by Automated count 0.1 U 0-0.1 N [facility] Manual Differential panel - Blood Manual Diff Added [facility] ID Date Data Source [id number] 04/12/2020 07:53:00 AM EDT [facility] @04/12/20 07: MANUAL DIFF added. RFLXG = DIFF. @04/12/20 07: MANUAL DIFF added. RFLXG = DIFF. Name Value Range Interpretation Code Description Data Shelly rce(s) Supporting Document(s) Urea nitrogen [Mass/volume] in Serum or Plasma 19 mg/dL 9-23 N [facility] Sodium [Moles/volume] in Serum or Plasma 138 mmol/L 132-146 N [facility] Potassium [Moles/volume] in Serum or Plasma 4.6 mmol/L 3.5-5.5 N [facility] Chloride [Moles/volume] in Serum or Plasma 105 mmol/L 99-109 N [facility] Carbon dioxide, total [Moles/volume] in Serum or Plasma 25 mmol/L 20 -31 N [facility] Anion gap in Serum or Plasma 13 mmol/L 8-16 N [facility] Glucose [Mass/volume] in Serum or Plasma 212 mg/dL 74-106 Above high normal [facility] Creatinine 1.1 mg/dL 0.5-1.1 [facility] Glomerular filtration rate/1.73 sq M.pre dicted [Volume Rate/Area] in Serum or Plasma Greater Than 60 ABOVE 60 [facility] Alanine aminotransferase [Enzymatic acti vity/volume] in Serum or Plasma by With P-5'-P 30 U/L 10-49 [facility] ital Aspartate aminotransferase [Enzymatic ac tivity/volume] in Serum or Plasma by With P-5'-P 11 U/L 0-33 [facility] pital Alkaline phosphatase [Enzymatic activity/volume] in Serum or Plasma 58 U/L 45-129 N [facility] Calcium [Mass/volume] in Serum or Plasma 9.2 mg/dL 8.5-10.1 [facility] Bilirubin.total [Mass/volume] in Serum or Plasma 0.5 mg/dL 0.3-1.2 [facility] Albumin [Mass/volume] in Serum or Plasma by Bromocresol purple (BCP) dye binding method 3.4 g/dL 3.2-4.8 [facility] ital Protein [Mass/volume] in Serum or Plasma 7.1 g/dL 5.7-8.2 [facility] ID Date Data Source [id number] 04/12/2020 07:40:00 AM EDT [facility] @04/12/20728: MANUAL DIFF added. RFLXG = DIFF. @04/12/20728: MANUAL DIFF added. RFLXG = DIFF. Name Value Range Interpretation Code Description Data Shelly rce(s) Supporting Document(s) Cells counted [#] 100 [facility] Neutrophils [#/volume] in Blood by Manual count 97 % 41-77 Above high normal [facility] @Are you sure? Please be sure this value is correct YES Lymphocytes [#/volume] in Blood by Manual count 3 % 14-46 Below low normal [facility] Platelets [#/volume] in Blood by Estimate APPEARS NORMAL NORMAL [facility] Morphology [Interpretation] in Blood Narrative APPEARS NORMAL NORMAL [facility] ID Date Data Source [id number] 04/12/2020 07:53:00 AM EDT [facility] @04/12/20728: MANUAL DIFF added. RFLXG = DIFF. @04/12/20728: MANUAL DIFF added. RFLXG = DIFF. Name Value Range Interpretation Code Description Data Shelly rce(s) Supporting Document(s) Troponin I.cardiac [Mass/volume] in Serum or Plasma Less Than 0.015 0.00-0.09 N [facility] Less than 0.09 NG/ML Negative0.10 - 0.77 NG/ML High Risk0.78 NG/ML or Greater PositiveThe WHO defined the cutoff (definition for diagnosis of PA)for this method as 0.78 ng/ml. ID Date Data Source [id number] 04/12/2020 06:40:00 AM [facility] ([facility]) Name Value Range Interpretation Code Description Data Shelly rce(s) Supporting Document(s) Reported Physicians See Note Reported Terii karoline JOHNSON ([facility]) Note: Reported Physicians:Ordering: Pradeep Ferraraending: John De Souzaitting: Jeremiha, VikramCopy To: Jeremiah VikramCopy To: Esha Talamantes ID Date Data Source [id number] 04/12/2020 06:40:00 AM [facility] ([facility]) Name Value Range Interpretation Code Description Data Shelly rce(s) Supporting Document(s) Troponin I.cardiac [Mass/volume] in Serum or Plasma Less Than 0.015 Normal Troponin I [facility] ([facility]) Note: Less than 0.09 NG/ML Negative 0.10 - 0.77 NG/ML High Risk0.78 NG/ML or Greater PositiveThe WHO defined the cutoff (definition for diagnosis of PA)for this method as 0.78 ng/ml.Responsible Observer: Troponin I Troponin I 600.1101 (G) ID Date Data Source [id number] 04/12/2020 06:40:00 AM EDT [place] ([facility]) Name Value Range Interpretation Code Description Data Shelly rce(s) Supporting Document(s) MANUAL DIFF See Note MANUAL DIFF [place] ([facility]) Note: NOTES OTHER/NOT INTERPRETED Cells counted 100 Lymphocytes # Bld Manual 3 %Morphology Bld-Imp APPEARS NORMAL Neutrophils # Bld Manual 97 %Platelet # Bld Est APPEARS NORMAL @Are you sure? Please be sure this value is correct YES@04/12/20 0729: MANUAL DIFF added. RFLXG = DIFF.Responsible Observer: TOTAL CELLS TOTAL CELLS COUNTED 100.2105 (A) ID Date Data Source [id number] 04/12/2020 06:40:00 AM EDT [place] ([facility]) Name Value Range Interpretation Code Description Data Shelly rce(s) Supporting Document(s) Reported Physicians See Note Reported Physici ans [place] ([facility]) Note: Reported Physicians:Ordering: Pradeep Ferraraending: John De Souzaitting: Pete De Souza To: Ancelmo De SouzaamCopninfa To: Esha Talamantes ID Date Data Source [id number] 04/12/2020 06:40:00 AM EDT [place] ([facility]) Name Value Range Interpretation Code Description Data Shelly rce(s) Supporting Document(s) Alanine aminotransferase [Enzymatic acti vity/volume] in Serum or Plasma by With P-5'-P 30 enzyme_unit_per_liter Normal ALT SerPl w P-5' -P-cCnc [place] ([facility]) Note: Responsible Observer: SGPT/ALT SGP T/ALT 400.1750 (G) Calcium [Mass/volume] in Serum or Plasma 9.2 MilliGramsPerDeciLiter_[Mass_Concentration_Units] Normal Calcium SerPl-mCnc [place] ([facility]) Note: Responsible Observer: Calcium Calc ium 400.2500 (G) Bilirubin.total [Mass/volume] in Serum or Plasma 0.5 MilliGramsPerDeciLiter_[Mass_Concentration_Units] Normal Bilirub [facility] ([facility]) Note: Responsible Observer: T ABDIRAHMAN Total Bilirubin 400.2600 (G) Carbon dioxide, total [Moles/volume] in Serum or Plasm a 25 MilliMolesPerLiter_[Substance_Concentration_Units] Normal CO2 [facility] ([facility]) Note: Responsible Observer: CO2 Carbon D ioxide 400.1400 (G) Chloride [Moles/volume] in Serum or Plasma 105 MilliMolesPerLiter_[Substance_Concentration_Units] Normal Chloride [facility] ([facility]) Note: Responsible Observer: Chloride Chl oride 400.1250 (G) Glucose [Mass/volume] in Serum or Plasma 212 MilliGramsPerDeciLiter_[Mass_Concentration_Units] Above high normal Glucose [facility] ([facility]) Note: Responsible Observer: Glucose Gluc ose 400.1500 (G) Potassium [Moles/volume] in Serum or Plasma 4.6 MilliMolesPerLiter_[Substance_Concentration_Units] Normal Potassium [facility] ([facility]) Note: Responsible Observer: K Potassium 400.1210 (G) Protein [Mass/volume] in Serum or Plasma 7.1 GramsPerDeciLiter_[Mass_Concentration_Units] Normal Pro t [facility] ([facility]) Note: Responsible Observer: TP Total Pro tein 400.2800 (G) Sodium [Moles/volume] in Serum or Plasma 138 MilliMolesPerLiter_[Substance_Concentration_Units] Normal Sodium [facility] ([facility]) Note: Responsible Observer: Sodium Sodiu m 400.1100 (G) Aspartate aminotransferase [Enzymatic ac tivity/volume] in Serum or Plasma by With P-5'-P 11 enzyme_unit_per_liter Normal AST SerPl w P-5' [facility] [place] ([facility]) Note: Responsible Observer: SGOT / AST S GOT / AST 400.1900 (G) Urea nitrogen [Mass/volume] in Serum or Plasma 19 MilliGramsPerDeciLiter_[Mass_Concentration_Units] Normal BUN [facility] ([facility]) Note: Responsible Observer: BUN Blood Ur ea Nitrogen 400.1000 (G) Anion gap in Serum or Plasma 13 MilliMolesPerLiter_[Substance_Concentration_Units] Normal Anion Gap [facility] ([facility]) Note: Responsible Observer: ANION GAP AN ION GAP 400.1402 (E) Albumin [Mass/volume] in Serum or Plasma by Bromocresol purple (BCP) dye binding method 3.4 GramsPerDeciLiter_[Mass_Concentration_Units] Normal Albumin [facility] ([facility]) Note: Responsible Observer: Albumin [place] 400.2700 (G) Alkaline phosphatase [Enzymatic activity/volume] in Se rum or Plasma 58 enzyme_unit_per_liter Normal ALP [facility] ( [facility]) Note: Responsible Observer: ALP Alkaline Phosphatase 400.2000 (G) Glomerular filtration rate/1.73 sq M.pre dicted [Volume Rate/Area] in Serum or Plasma Greater Than 60 GFR/BSA.pred [facility] [place] ([facility]) Note: Responsible Observer: GFR Glomerul ar Filt Rate Calc 400.1605 (D) Creatinine [Moles/volume] in Vitreous fluid 1.1 MilliGramsPerDeciLiter_[Mass_Concentration_Units] Normal Creatinine [place] ([facility]) Note: Responsible Observer: Creatinine C reatinine 400.1600 (G) ID Date Data Source [id number] 04/12/2020 06:40:00 AM EDT [place] ([facility]) Name Value Range Interpretation Code Description Data Shelly rce(s) Supporting Document(s) Erythrocyte mean corpuscular volume [Ent itic volume] in Cord blood by Automated count 91.5 FemtoLiter_[SI_Volume_Units] Normal MCV Bld Co Auto [place] ([facility]) Note: Responsible Observer: MCV MCV 100 .0600 (B) Erythrocyte distribution width [Entitic volume] by Automated cou nt 13 percent Normal RDW RBC Auto [place] ([facility]) Note: Responsible Observer: RDW RDW 100 .0900 (B) Manual Differential panel - Blood Manual Diff Added Manual diff Bld [place] ([facility]) Note: Responsible Observer: CBC Manual D ifferential Added 100.1990 (B) Platelet mean volume [Entitic volume] in Blood 9.5 FemtoLite r_[SI_Volume_Units] Normal PMV Bld [place] ([facility]) Note: Responsible Observer: MPV MPV 100 .1100 (B) Immature granulocytes [Presence] in Blood by Automated count See No te Normal Imm Granulocytes Bld Ql Auto [place] ([facility]) Note: [id number] Ob linux server engineer: IG% IG% 100.1375 (B) Hematocrit [Volume Fraction] of Blood by Automated count 44.4 perce nt Normal Hct VFr Bld Auto [place] ([facility]) Note: Responsible Observer: HEMATOCRIT H EMATOCRIT 100.0500 (B) Erythrocyte mean corpuscular hemoglobin concentration [Mass/volume] in Cord blood 33.1 GramsPerDeciLiter_[Mass_Concentration_Units] Normal MCHC BldCo-mCnc [place] ([facility]) Note: Responsible Observer: MCHC MCHC 1 00.0800 (B) Immature granulocytes [#/volume] in Blood by Automated count 0.1 Un it Imm Granulocytes # d Auto [place] ([facility]) Note: Responsible Observer: IG# IG# 100 .1400 (B) Monocytes/100 leukocytes in Blood by Automated count 1.2 percent Below low normal Monocytes/leuk NFr Bld Auto [place] ([facility]) Note: Responsible Observer: MONO % MONO % 100.1225 (B) Hemoglobin [Moles/volume] in Blood 14.7 GramsPerDeciLiter_[Mass_Concentration_Units] Normal Hgb Bld-sCnc [place] ([facility]) Note: Responsible Observer: HGB HEMOGLOB IN 100.0400 (B) Leukocytes [#/volume] in Blood by Automated count 14.6 ThousandsPerMicroLiter_[Number_Concentration_Units] Above hi gh normal WBC # Bld Auto [place] ([facility]) Note: Responsible Observer: WBC WHITE BL OOD COUNT 100.0100 (E) Basophils [#/volume] in Blood by Automated count 0.0 Unit Normal Basophils # Bld Auto [place] ([facility]) Note: Responsible Observer: BASO # BASO# 100.1350 (B) Basophils/100 leukocytes in Blood by Automated count 0.1 percent Below low normal Basophils/leuk NFr Bld Auto [place] ([facility]) Note: Responsible Observer: BASO % BASO % 100.1325 (B) Eosinophils [#/volume] in Blood by Automated count 0.0 Unit Normal Eosinophil # Bld Auto [place] ([facility]) Note: Responsible Observer: EOS # EOS# 100.1300 (D) Eosinophils/100 leukocytes in Blood by Automated count 0.0 percent Normal Eosinophil/leuk NFr Bld Auto [place] ([facility]) Note: Responsible Observer: EOS % EOS % 100.1275 (B) Lymphocytes [#/volume] in Blood by Automated count 0.6 Unit Normal Lymphocytes # Bld Auto [place] ([facility]) Note: Responsible Observer: LYMPH # LYMP H# 100.1200 (B) Lymphocytes/100 leukocytes in Blood by Automated count 4.2 perce nt Below low normal Lymphocytes/leuk NFr Bld Auto [place] ([facility]) Note: Responsible Observer: LYMPH % LYMP H % 100.1175 (B) Monocytes [#/volume] in Blood by Automated count 0.2 Unit Normal Monocytes # Bld Auto [place] ([facility]) Note: Responsible Observer: MONO # MONO# 100.1250 (C) Neutrophils [#/volume] in Blood by Automated count 13.8 Unit Above high normal Neutrophils # Bld Auto [place] ([facility] ) Note: Responsible Observer: NEUT# NEUT# 100.1150 (B) Neutrophils/100 leukocytes in Blood by Automated count 94.0 perc ent Above high normal Neutrophils/leuk NFr Bld Auto [place] ([facility]) Note: @PERFORM SLIDE SCAN IF NOT AGREE M AN DIFF@DOCUMENT SLIDE SCAN COMMENTResponsible Observer: NEUT% NEUT% 100.1125 (B) Platelets [#/volume] in Blood by Automated count 235 ThousandsPerMicroLiter_[Number_Concentration_Units] Normal Platelet # Bld Auto [place] ([facility]) Note: Responsible Observer: PLATELET COU NT PLATELET COUNT 100.1000 (D) Erythrocyte mean corpuscular hemoglobin [Entitic mass] by Automated count 30.3 PicoGram_[SI_Mass_Units] Normal MCH RBC Qn Auto [place] ([facility]) Note: Responsible Observer: MCH MCH 100 .0700 (B) Erythrocytes [#/volume] in Blood by Automated count 4. 85 MillionsPerMicroLiter_[Number_Concentration_Units] Normal RBC # Bld Auto [place] ([facility]) Note: Responsible Observer: RBC Red Bloo d Count 100.0300 (B) NUCLEATED RED BLOOD CELL# 0 Unit NUCLEATED RED BLOOD CELL# [place] ([facility]) Note: Responsible Observer: NRBC# NUCLEA SABRINA RBC 100.1362 (A) NUCLEATED RED BLOOD CELL 0 percent NUCLEATED R ED BLOOD CELL [place] ([facility]) Note: Responsible Observer: NRBC% NRBC% 100.1360 (B) Notes [TIMP] See Note NOTES [place] ([facility]) Note: @04/12/20 0729: MANUAL DIFF added. RFLXG = DIFF. ID Date Data Source [id number] 04/12/2020 12:34:00 AM [facility] @ [facility] DATE was changed from 04/12/20 to 04/11/20@ by SHEEBA. Old specimen was [id number]. Name Value Range Interpretation Code Description Data Shelly rce(s) Supporting Document(s) Troponin I.cardiac [Mass/volume] in Serum or Plasma Less Than 0.015 0.00-0.09 N [facility] Less than 0.09 NG/ML Negative0.10 - 0.77 NG/ML High Risk0.78 NG/ML or Greater PositiveThe WHO defined the cutoff (definition for diagnosis of PA)for this method as 0.78 ng/ml. ID Date Data Source [id number] 04/11/2020 10:42:00 PM [facility] @04/11/20 1840: 4hr Lactic Acid added. R FLXG = RFX LACTIC. Name Value Range Interpretation Code Description Data Shelly rce(s) Supporting Document(s) Lactate [Mass/volume] in Serum or Plasma 1.7 mmol/L 0.5-2.2 N [facility] A HIGH RESULT ON THIS 4HR LACTIC ACID WI LL NOT REFLEXANOTHER - YOU MUST ORDER ONE IF YOU WANT IT REPEATED ID Date Data Source [id number] 04/11/2020 10:10:00 PM EDT [place] ([facility]) Name Value Range Interpretation Code Description Data Shelly rce(s) Supporting Document(s) Reported Physicians See Note Reported Physici ans [place] ([facility]) Note: Reported Physicians:Ordering: Kian ArguelloAttending: Shruthi De SouzakrAzuldmitting: Pete De Souza To: Esha Talamantes ID Date Data Source [id number] 04/11/2020 10:10:00 PM EDT [place] ([facility]) Name Value Range Interpretation Code Description Data Shelly rce(s) Supporting Document(s) Lactate [Mass/volume] in Serum or Plasma 1.7 MilliMolesPerLiter_[Substance_Concentration_Units] [facility] Note: A HIGH RESULT ON THIS 4HR LACTIC A PIPO WILL NOT REFLEXANOTHER - YOU MUST ORDER ONE IF YOU WANT IT REPEATEDResponsible Observer: 4HR LACTIC RPT 4HR LACTIC ACID 400.2840 (G) Notes [TIMP] See Note NOTES [place] ([facility]) Note: @04/11/20 1840: 4hr Lactic Acid ad ded. RFLXG = RFX LACTIC. ID Date Data Source [id number] 04/11/2020 10:10:00 PM EDT [place] ([facility]) Name Value Range Interpretation Code Description Data Shelly rce(s) Supporting Document(s) Reported Physicians See Note [facility] Note: Reported Physicians:Ordering: Marly Ferrarattending: Jeremiah, VikramAdmitting: Jeremiah, VikramCopy To: Jeremiah VikramCopy To: Esha Talamantes ID Date Data Source [id number] 04/11/2020 10:10:00 PM EDT [place] ([facility]) Name Value Range Interpretation Code Description Data Sehlly rce(s) Supporting Document(s) Troponin I.cardiac [Mass/volume] in Serum or Plasma Less Than 0.015 Normal Troponin I [facility] [place] ([facility]) Note: Less than 0.09 NG/ML Negative 0.10 - 0.77 NG/ML High Risk0.78 NG/ML or Greater PositiveThe WHO defined the cutoff (definition for diagnosis of PA)for this method as 0.78 ng/ml.Responsible Observer: Troponin I Troponin I 600.1101 (G) Notes [TIMP] See Note NOTES [place] ([facility]) Note: @ [place] DATE was changed from 04/12 to 04/11/20@ by SHEEBA. Old specimen was [id number]. ID Date Data Source [id number] 04/11/2020 10:05:00 PM EDT [facility] TOBAR COVID-19 IS AN ISOTHERMAL NA A TECHNOLOGYNORMAL VALUE IS "SARS-COV-2 COVID 19 NOT DETECTED"False negative results may occur if a specimen is improperlycollected,transported or handled.False negative results may also occur if amplicationinhibitors are present in the specimen or if inadequatelevels of viruses are present in the specimen.As with any molecular test, if the virus mutates in [facility] region, Covid-19 may not be detected [...] rce(s) Supporting Document(s) ID Date Data Source [id number] 04/11/2020 09:30:00 PM EDT [place] ([facility]) Name Value Range Interpretation Code Description Data Shelly rce(s) Supporting Document(s) Reported Physicians See Note Reported Physici karoline [place] ([facility]) Note: Reported Physicians:Ordering: Kian ArguelloAttending: John De Souzaitting: Pete De Souza To: VinitaEsha ID Date Data Source [id number] 04/11/2020 09:30:00 PM EDT [place] ([facility]) Name Value Range Interpretation Code Description Data Shelly rce(s) Supporting Document(s) TOBAR COVID-19 SCHOOL See Note TOBAR COVID- 19 S[employer]OL [place] ([facility]) Note: TOBAR COVID-19 IS AN ISOTHER MAL KRISTEN TECHNOLOGYNORMAL VALUE IS "SARS-COV-2 COVID 19 NOT DETECTED"False negative results may occur if a specimen is improperlycollected,transported or handled.False negative results may also occur if amplicationinhibitors are present in the specimen or if inadequatelevels of viruses are present in the specimen.As with any molecular test, if the virus mutates in [facility] region, Covid-19 may not be detected or may bedetected less predictably.ID NOW COVID-19 is intended for testing a swab directlywithout elution in viral transport media as dilution willresult in decreased detection of low positive samples thatare near the limit of detection of the test.SWAB SAMPLES ELUTED IN VTM ARE NOT APPROPRIATE FOR USE INTHIS TEST.NOSNo Organisms [id number] Organisms Detected ID Date Data Source [id number] 04/11/2020 09:17:00 PM EDT [facility] Name: TOLU RATLIFF : 1955 Age: 64 MR#: [id number] Admit Date: 04/11/20 Provider: Leonardo Alonso Room [...] 30 years old and [facility] [place]. He reported being replaced before on anticoagulation [...] drug use. Family History: Father due to PA at age 7979 year old, he had [...] mg PO DAILY 04/11/20 04/11/20 04/11/20 History xeajwjwcvxlo-vhusgffz-krhkek 1 tab PO DAILY 04/11/20 04/11/20 04/11/20 [...] % (Auto) 68.7, Lymph % (Auto) 20.9, [place] % (Auto) 8.4, Eos % (Auto) 1.2, [...] Appearance Clear, Urine pH 5.0, Ur Specific [place] 1.010,Urine Protein Negative, Urine Ketones Negative, Urine [...] The patient needs to follow up with roll cutter as regard to his DM that might [...] rce(s) Supporting Document(s) ID Date Data Source [id number] 04/11/2020 08:56:00 PM EDT [facility] [address] [id number] [phone] NAME SEX PT STATUS ACCOUNT NUMBER TOLU RATLIFF [facility] [id number] ORDERING PHYSICIAN LOCATION MEDICAL RECORD NO. Scott Mei MD ER [id number] ATTENDING PHYSICIAN DATE OF DATE OF EXAM/TIME [...] Trans Dt/Tm: Trans by: JERRY Prt Dt/Tm: 6149-9643: Total DLP = 407.00 mGy-cm 6835-5411: Total Radiation Dose = 2.4013 mSv Lifetime Dose: 4.5186 mSv Name Value Range Interpretation Code Description Data Shelly rce(s) Supporting Document(s) ID Date Data Source [id number] 04/11/2020 08:08:00 PM EDT [facility] Reason for ordering culture: Abnormal fi ndings UAMethod of Collection:: Voided Name Value Range Interpretation Code Description Data Shelly rce(s) Supporting Document(s) Color of Urine [facility] Appearance of Urine CLEAR [facility] pH of Urine by Test strip 5.0 5-8 [facility] Specific gravity of Urine by Refractometry 1.010 1.005-1.030 [facility] Leukocyte esterase [Presence] in Urine by Test strip NEGAT ELVIA [facility] Nitrite [Presence] in Urine by Test strip NEGATIVE [facility] Protein [Presence] in Urine by Test strip NEGATIVE [facility] Glucose [Mass/volume] in Urine by Automated test strip NEGATIVE NEG ATIVE [facility] Ketones [Presence] in Urine by Test strip NEGATIVE [facility] Urobilinogen [Presence] in Urine 0.2-1 EU/dl [facility] Bilirubin.total [Presence] in Urine by Automated test strip NEGATIVE [facility] Erythrocytes [#/volume] in Urine by Test strip NEGATIVE NEGATIVE [facility] URINE MICROSCOPIC? (CIF) NO [facility] ID Date Data Source [id number] 04/11/2020 07:59:00 PM [facility] ([facility]) Name Value Range Interpretation Code Description Data Shelly rce(s) Supporting Document(s) Reported Physicians See Note Reported Physici ans [place] ([facility]) Note: Reported Physicians:Ordering: Kian ArguelloAttending: Talita Cannon To: Esha Talamantes ID Date Data Source [id number] [facility]/11[facility]2020 07:59[facility] Name Value Range Interpretation Code Description Data Shelly rce(s) Supporting Document(s) Urobilinogen [Presence] in Urine See Note Uro bilinogen Ur Ql [place] ([facility]) Note: 0.2 EU/dl0.2 [id number] E U/dlResponsible Observer: UROBILINOGEN UROBILINOGEN 300.4500 (C) Erythrocytes [#/volume] in Urine by Test strip NEGATIVE RBC # Ur Strip [place] ([facility]) Note: Responsible Observer: BLOOD BLOOD 300.4652 (C) Protein [Presence] in Urine by Test strip See Note Prot Ur Ql Strip [place] ([facility]) Note: [id number] EResponsible Observer: PROTEIN PROTEIN 300.3750 (C) Ketones [Presence] in Urine by Test strip See Note Ketones Ur Ql Strip [place] ([facility]) Note: [id number] EResponsible Observer: KETONE KETONE 300.3900 (C) Bilirubin.total [Presence] in Urine by Automated test strip See Not e Bilirub Ur Ql Strip.auto [place] ([facility]) Note: [id number] EResponsible Observer: BILIRUBIN BILIRUBIN 300.4550 (C) Glucose [Mass/volume] in Urine by Automated test strip NEGATIVE Glucose Ur Strip.auto-mCnc [place] ([facility]) Note: Responsible Observer: GLUCOSE GLUC OSE 300.3850 (C) Appearance of Urine See Note Appearance Ur [place] ([facility]) Note: CLEARCLEARLCLEARResponsible Observ er: APPEARANCE APPEARANCE 300.3400 (A) Color of Urine See Note Color Ur [place] ([facility]) Note: YELLOWYELLOWLYELLOWResponsible Obs erver: COLOR COLOR 300.3330 (A) Leukocyte esterase [Presence] in Urine by Test strip See Note Leukocyte esterase Ur Ql Strip [place] ([facility]) Note: [id number] EResponsible Observer: LEUKOCYTES LEUKOCYTES 300.3576 (C) Nitrite [Presence] in Urine by Test strip See Note Nitrite Ur Ql Strip [place] ([facility]) Note: [id number] EResponsible Observer: NITRITE NITRITE 300.3652 (B) pH of Urine by Test strip 5.0 pH Ur Stri p [place] ([facility]) Note: Responsible Observer: PH PH 300.3 450 (C) Specific gravity of Urine by Refractometry 1.010 Sp Gr Ur Refractometry [place] ([facility]) Note: Responsible Observer: SP GRAVITY U RINE SPECIFIC GRAVITY-MAN 300.3475 (C) URINE MICROSCOPIC? (CIF) NO URINE MICRO SCOPIC? (CIF) [place] ([facility]) Note: Responsible Observer: UA URINE KEENAN ROSCOPIC PENDING 300.4665 (D) Notes [TIMP] See Note NOTES [place] ([facility]) Note: Reason for ordering culture: Abnor mal findings UAMethod of Collection:: Voided ID Date Data Source [id number] 04/11/2020 07:16:00 PM EDT [facility] [address] [place] [address] [phone] NAME SEX PT STATUS ACCOUNT NUMBER Tolu Ratliff [facility] ER [id number] ORDERING PHYSICIAN LOCATION MEDICAL RECORD NO. Kian Cannon MD ER [id number] ATTENDING PHYSICIAN DATE OF DATE OF EXAM/TIME [...] Trans Dt/Tm: Trans by: DT Prt Dt/Tm: 4403-5769: Total DLP = 683.00 mGy-cm 1604-3675: Total Radiation Dose = 2.1173 mSv Lifetime Dose: 2.1173 mSv Name Value Range Interpretation Code Description Data Shelly rce(s) Supporting Document(s) ID Date Data Source [id number] 04/11/2020 06:34:00 PM EDT [facility] [address], [place] [id number] [phone] NAME SEX PT STATUS ACCOUNT NUMBER Tolu Ratliff [facility] ER [id number] ORDERING PHYSICIAN LOCATION MEDICAL RECORD NO. Kian Cannon MD ER [id number] ATTENDING PHYSICIAN DATE OF DATE OF EXAM/TIME [...] Trans Dt/Tm: Trans by: DT Prt Dt/Tm: [id number]: Total DLP = 0.00 mGy-cm Fluoroscopy Time (in secs): Name Value Range Interpretation Code Description Data Shelly rce(s) Supporting Document(s) ID Date Data Source [id number] 04/11/2020 06:40:00 PM [facility] Special Instructions: Lab may order repe at test if initial test elevatedPhysician If elevated, reflex second test in 4-6 hrs Name Value Range Interpretation Code Description Data Shelly rce(s) Supporting Document(s) Lactic w Rfx (if elevated) 2.1 mmol/L 0.5-2.2 N [facility] Called to RYAN @ 1835 by Carlos Child. Results readback. ID Date Data Source [id number] 04/16/2020 05:57:00 PM [facility] Special Instructions: Lab may order repe at test if initial test elevatedPhysician If elevated, reflex second test in 4-6 hrs Name Value Range Interpretation Code Description Data Shelly rce(s) Supporting Document(s) Bacteria identified in Blood by Culture [facility] NO GROWTH AFTER 5 DAYS ID Date Data Source [id number] 04/11/2020 11:28:00 PM [facility] Special Instructions: from the last lab sample, otherwise, from the next Name Value Range Interpretation Code Description Data Shelly rce(s) Supporting Document(s) Erythrocyte sedimentation rate by Westergren method 13 mm/hr 0-20 N [facility] @[place] manual test result: 13@by Tori Schultz at 04/11/20 2328. ID Date Data Source [id number] 04/11/2020 06:00:00 PM EDT [facility] Name Value Range Interpretation Code Description Data Shelly rce(s) Supporting Document(s) Leukocytes [#/volume] in Blood by Automated count 10.4 10*3/uL 4.45-1 0.71 N [facility] Erythrocytes [#/volume] in Blood by Automated count 5.03 10*6/uL 4.3- 6.1 N [facility] Hemoglobin [Moles/volume] in Blood 15.5 g/dL 13-18 N [facility] Hematocrit [Volume Fraction] of Blood by Automated count 46.2 % 4 2-52 N [facility] Erythrocyte mean corpuscular volume [Ent itic volume] in Cord blood by Automated count 91.8 fL 80-[address] [facility] ital Erythrocyte mean corpuscular hemoglobin [Entitic mass] by Automated count 30.8 pg 27-31 N [facility] l Erythrocyte mean corpuscular hemoglobin concentration [Mass/volume] in Cord blood 33.5 g/dL 33-37 N [facility] Erythrocyte distribution width [Entitic volume] by Automated count 12 % 11-15 N [facility] Platelets [#/volume] in Blood by Automated count 243 10*3/uL 130-472 N [facility] Platelet mean volume [Entitic volume] in Blood 9.3 fL 9.1-13.1 N [facility] Neutrophils/100 leukocytes in Blood by Automated count 68.7 % 41- 77 N [facility] Neutrophils [#/volume] in Blood by Automated count 7.2 U 1.7-7.6 N [facility] Lymphocytes/100 leukocytes in Blood by Automated count 20.9 % 14- 46 N [facility] Lymphocytes [#/volume] in Blood by Automated count 2.2 U 0.6-4.6 N [facility] Monocytes/100 leukocytes in Blood by Automated count 8.4 % 4-12 N [facility] Monocytes [#/volume] in Blood by Automated count 0.9 U 0.2-1.2 N [facility] Eosinophils/100 leukocytes in Blood by Automated count 1.2 % 0-7 N [facility] Eosinophils [#/volume] in Blood by Automated count 0.1 U 0.0-0.5 N [facility] Basophils/100 leukocytes in Blood by Automated count 0.5 % 0.4-1 .3 N [facility] Basophils [#/volume] in Blood by Automated count 0.1 U 0.0-0.2 N [facility] NUCLEATED RED BLOOD CELL 0 % [facility] NUCLEATED RED BLOOD CELL# 0 U [facility] Immature granulocytes [Presence] in Blood by Automated count 0-2 N [facility] Immature granulocytes [#/volume] in Blood by Automated count 0.0 U 0-0.1 N [facility] Manual Differential panel - Blood NO [facility] ID Date Data Source [id number] 04/11/2020 06:25:00 PM EDT [facility] Name Value Range Interpretation Code Description Data Shelly rce(s) Supporting Document(s) Urea nitrogen [Mass/volume] in Serum or Plasma 17 mg/dL 9-23 N [facility] Sodium [Moles/volume] in Serum or Plasma 138 mmol/L 132-146 [facility] Potassium [Moles/volume] in Serum or Plasma 3.9 mmol/L 3.5-5.5 [facility] Chloride [Moles/volume] in Serum or Plasma 103 mmol/L 99-109 [facility] Carbon dioxide, total [Moles/volume] in Serum or Plasma 26 mmol/L 20 -31 [facility] Anion gap in Serum or Plasma 13 mmol/L 8-16 [facility] Glucose [Mass/volume] in Serum or Plasma 150 mg/dL 74-106 Above high normal [facility] Creatinine 1.0 mg/dL 0.5-1.1 [facility] Glomerular filtration rate/1.73 sq M.pre dicted [Volume Rate/Area] in Serum or Plasma Greater Than 60 ABOVE 60 [facility] Alanine aminotransferase [Enzymatic acti vity/volume] in Serum or Plasma by With P-5'-P 33 U/L 10-49 [facility] ital Aspartate aminotransferase [Enzymatic ac tivity/volume] in Serum or Plasma by With P-5'-P 15 U/L 0-33 [facility] pital Alkaline phosphatase [Enzymatic activity/volume] in Serum or Plasma 60 U/L 45-129 N [facility] Calcium [Mass/volume] in Serum or Plasma 9.4 mg/dL 8.5-10.1 N [facility] Bilirubin.total [Mass/volume] in Serum or Plasma 0.8 mg/dL 0.3-1.2 N [facility] Albumin [Mass/volume] in Serum or Plasma by Bromocresol purple (BCP) dye binding method 3.8 g/dL 3.2-4.[address] [facility] ital Protein [Mass/volume] in Serum or Plasma 8.0 g/dL 5.7-8.2 N [facility] ID Date Data Source [id number] 04/11/2020 06:25:00 PM EDT [facility] Name Value Range Interpretation Code Description Data Shelly rce(s) Supporting Document(s) Troponin I.cardiac [Mass/volume] in Serum or Plasma Less Than 0.015 0.00-0.09 N [facility] Less than 0.09 NG/ML Negative0.10 - 0.77 NG/ML High Risk0.78 NG/ML or Greater PositiveThe WHO defined the cutoff (definition for diagnosis of PA)for this method as 0.78 ng/ml. ID Date Data Source [id number] 04/11/2020 06:24:00 PM EDT [facility] Name Value Range Interpretation Code Description Data Shelly rce(s) Supporting Document(s) Magnesium [Mass/volume] in Serum or Plasma 2.3 mg/dL 1.3-2.7 N [facility] ID Date Data Source [id number] 04/11/2020 06:23:00 PM EDT [facility] Name Value Range Interpretation Code Description Data Shelly rce(s) Supporting Document(s) Creatine kinase [Enzymatic activity/volume] in Serum or Plasma 158 U/L 33-211 N [facility] Creatine kinase.MB [Enzymatic activity/volume] in Serum or P lasma 3.8 ng/mL 0.0-5.0 N [facility] Chemistry studies (set) 2.4 % [facility] ID Date Data Source [id number] 04/11/2020 05:55:00 PM EDT [place] ([facility]) Name Value Range Interpretation Code Description Data Shelly rce(s) Supporting Document(s) Reported Physicians See Note Reported Physici ans [place] ([facility]) Note: Reported Physicians:Ordering: Kian ArguelloAttending: John De Souzaitting: Pete De Souza To: Esha Talamantes ID Date Data Source [id number] 04/11/2020 05:55:00 PM EDT [place] ([facility]) Name Value Range Interpretation Code Description Data Shelly rce(s) Supporting Document(s) Bacteria identified in Blood by Culture See Note Bacteria Bld Cult [place] ([facility]) Note: NG5DNo growth.[id number] GROWTH AFTE R 5 DAYS ID Date Data Source [id number] 04/11/2020 05:55:00 PM EDT [place] ([facility]) Name Value Range Interpretation Code Description Data Shelly rce(s) Supporting Document(s) Bacteria identified in Blood by Culture See Note Bacteria Bld Cult [place] ([facility]) Note: NG5DNo growth.[id number] GROWTH AFTE R 5 DAYS ID Date Data Source [id number] 04/11/2020 05:55:00 PM EDT [place] ([facility]) Name Value Range Interpretation Code Description Data Shelly rce(s) Supporting Document(s) Lactic w Rfx (if elevated) 2.1 MilliMolesPerLiter_[Substance_Concentration_Units] Normal Lactic w Rfx (if elevated) [facility]) Note: Called to RYAN @ 1835 by Tori Kenny. Results readback.Responsible Observer: Lactic Acid Lactic Acid 400.2831 (G) Notes [TIMP] See Note NOTES [place] ([facility]) Note: Special Instructions: Lab may orde r repeat test if initial test elevatedPhysician If elevated, reflex second test in 4-6 hrs ID Date Data Source [id number] 04/11/2020 05:55:00 PM EDT [place] ([facility]) Name Value Range Interpretation Code Description Data Shelly rce(s) Supporting Document(s) Reported Physicians See Note Reported Physici ans [place] ([facility]) Note: Reported Physicians:Ordering: Kian ArguelloAttending: Talita Cannon To: Esha Talamantes ID Date Data Source [id number] 04/11/2020 05:55:00 PM EDT [place] ([facility]) Name Value Range Interpretation Code Description Data Shelly rce(s) Supporting Document(s) Alanine aminotransferase [Enzymatic acti vity/volume] in Serum or Plasma by With P-5'-P 33 enzyme_unit_per_liter Normal ALT SerPl [facility] [place] ([facility]) Note: Responsible Observer: SGPT/ALT SGP T/ALT 400.1750 (G) Calcium [Mass/volume] in Serum or Plasma 9.4 MilliGramsPerDeciLiter_[Mass_Concentration_Units] Normal Calcium [facility] ([facility]) Note: Responsible Observer: Calcium Calc ium 400.2500 (G) Bilirubin.total [Mass/volume] in Serum or Plasma 0.8 MilliGramsPerDeciLiter_[Mass_Concentration_Units] Normal Bilirub [facility] ([facility]) Note: Responsible Observer: T ABDIRAHMAN Total Bilirubin 400.2600 (G) Carbon dioxide, total [Moles/volume] in Serum or Plasm a 26 MilliMolesPerLiter_[Substance_Concentration_Units] Normal CO2 [facility] ([facility]) Note: Responsible Observer: CO2 Carbon D ioxide 400.1400 (G) Chloride [Moles/volume] in Serum or Plasma 103 MilliMolesPerLiter_[Substance_Concentration_Units] Normal Chloride [facility] ([facility]) Note: Responsible Observer: Chloride Chl oride 400.1250 (G) Glucose [Mass/volume] in Serum or Plasma 150 MilliGramsPerDeciLiter_[Mass_Concentration_Units] Above high normal Glucose [facility] ([facility]) Note: Responsible Observer: Glucose Gluc ose 400.1500 (G) Potassium [Moles/volume] in Serum or Plasma 3.9 MilliMolesPerLiter_[Substance_Concentration_Units] Normal Potassium [facility] ([facility]) Note: Responsible Observer: K Potassium 400.1210 (G) Protein [Mass/volume] in Serum or Plasma 8.0 GramsPerDeciLiter_[Mass_Concentration_Units] Normal Pro t [facility] ([facility]) Note: Responsible Observer: TP Total Pro tein 400.2800 (G) Sodium [Moles/volume] in Serum or Plasma 138 MilliMolesPerLiter_[Substance_Concentration_Units] Normal Sodium [facility] ([facility]) Note: Responsible Observer: Sodium Sodiu m 400.1100 (G) Aspartate aminotransferase [Enzymatic ac tivity/volume] in Serum or Plasma by With P-5'-P 15 enzyme_unit_per_liter Normal AST [facility] w P-5' -P-[facility] ([facility]) Note: Responsible Observer: SGOT / AST S GOT / AST 400.1900 (G) Urea nitrogen [Mass/volume] in Serum or Plasma 17 MilliGramsPerDeciLiter_[Mass_Concentration_Units] Normal BUN [facility] ([facility]) Note: Responsible Observer: BUN Blood Ur ea Nitrogen 400.1000 (G) Anion gap in Serum or Plasma 13 MilliMolesPerLiter_[Substance_Concentration_Units] Normal Anion Gap [facility] ([facility]) Note: Responsible Observer: ANION GAP AN ION GAP 400.1402 (E) Albumin [Mass/volume] in Serum or Plasma by Bromocresol purple (BCP) dye binding method 3.8 GramsPerDeciLiter_[Mass_Concentration_Units] Normal Albumin [facility] ([facility]) Note: Responsible Observer: Albumin [place] 400.2700 (G) Alkaline phosphatase [Enzymatic activity/volume] in Se rum or Plasma 60 enzyme_unit_per_liter Normal ALP [facility] ( [facility]) Note: Responsible Observer: ALP Alkaline Phosphatase 400.2000 (G) Glomerular filtration rate/1.73 sq M.pre dicted [Volume Rate/Area] in Serum or Plasma Greater Than 60 GFR/BSA.pred [facility] [place] ([facility]) Note: Responsible Observer: GFR Glomerul ar Filt Rate Calc 400.1605 (D) Creatinine [Moles/volume] in Vitreous fluid 1.0 MilliGramsPerDeciLiter_[Mass_Concentration_Units] Normal Creatinine [place] ([facility]) Note: Responsible Observer: Creatinine C reatinine 400.1600 (G) ID Date Data Source [id number] 04/11/2020 05:55:00 PM EDT [place] ([facility]) Name Value Range Interpretation Code Description Data Shelly rce(s) Supporting Document(s) Erythrocyte mean corpuscular volume [Ent itic volume] in Cord blood by Automated count 91.8 FemtoLiter_[SI_Volume_Units] Normal MCV Bld Co Auto [place] ([facility]) Note: Responsible Observer: MCV MCV 100 .0600 (B) Erythrocyte distribution width [Entitic volume] by Automated cou nt 12 percent Normal RDW RBC Auto [place] ([facility]) Note: Responsible Observer: RDW RDW 100 .0900 (B) Manual Differential panel - Blood NO Ma nual diff Bld [place] ([facility]) Note: Responsible Observer: CBC Manual D ifferential Added 100.1990 (B) Platelet mean volume [Entitic volume] in Blood 9.3 FemtoLite r_[SI_Volume_Units] Normal PMV Bld [place] ([facility]) Note: Responsible Observer: MPV MPV 100 .1100 (B) Immature granulocytes [Presence] in Blood by Automated count See No te Normal Imm Granulocytes Bld Ql Auto [place] ([facility]) Note: [id number] Ob linux server engineer: IG% IG% 100.1375 (B) Hematocrit [Volume Fraction] of Blood by Automated count 46.2 perce nt Normal Hct VFr Bld Auto [place] ([facility]) Note: Responsible Observer: HEMATOCRIT H EMATOCRIT 100.0500 (B) Erythrocyte mean corpuscular hemoglobin concentration [Mass/volume] in Cord blood 33.5 GramsPerDeciLiter_[Mass_Concentration_Units] Normal MCHC BldCo-mCnc [place] ([facility]) Note: Responsible Observer: MCHC MCHC 1 00.0800 (B) Immature granulocytes [#/volume] in Blood by Automated count 0.0 Un it Imm Granulocytes # Bld Auto [place] ([facility]) Note: Responsible Observer: IG# IG# 100 .1400 (B) Monocytes/100 leukocytes in Blood by Automated count 8.4 percent Normal Monocytes/leuk NFr Bld Auto [facility] ([facility]) Note: Responsible Observer: MONO % MONO % 100.1225 (B) Hemoglobin [Moles/volume] in Blood 15.5 GramsPerDeciLiter_[Mass_Concentration_Units] Normal Hgb Bld-sCnc [place] ([facility]) Note: Responsible Observer: HGB HEMOGLOB IN 100.0400 (B) Leukocytes [#/volume] in Blood by Automated count 10.4 ThousandsPerMicroLiter_[Number_Concentration_Units] Normal WBC # Bld Auto [place] ([facility]) Note: Responsible Observer: WBC WHITE BL OOD COUNT 100.0100 (E) Basophils [#/volume] in Blood by Automated count 0.1 Unit Normal Basophils # Bld Auto [place] ([facility]) Note: Responsible Observer: BASO # BASO# 100.1350 (B) Basophils/100 leukocytes in Blood by Automated count 0.5 percent Normal Basophils/leuk NFr Bld Auto [facility] ([facility]) Note: Responsible Observer: BASO % BASO % 100.1325 (B) Eosinophils [#/volume] in Blood by Automated count 0.1 Unit Normal Eosinophil # Bld Auto [facility] ([facility]) Note: Responsible Observer: EOS # EOS# 100.1300 (D) Eosinophils/100 leukocytes in Blood by Automated count 1.2 percent Normal Eosinophil/leuk NFr Bld Auto [facility] ([facility]) Note: Responsible Observer: EOS % EOS % 100.1275 (B) Lymphocytes [#/volume] in Blood by Automated count 2.2 Unit Normal Lymphocytes # Bld Auto [place] ([facility]) Note: Responsible Observer: LYMPH # LYMP H# 100.1200 (B) Lymphocytes/100 leukocytes in Blood by Automated count 20.9 percent Normal Lymphocytes/leuk NFr Bld Auto [facility] ([facility]) Note: Responsible Observer: LYMPH % LYMP H % 100.1175 (B) Monocytes [#/volume] in Blood by Automated count 0.9 Unit Normal Monocytes # Bld Auto [facility] ([facility]) Note: Responsible Observer: MONO # MONO# 100.1250 (C) Neutrophils [#/volume] in Blood by Automated count 7.2 Unit Normal Neutrophils # Bld Auto [facility] ([facility]) Note: Responsible Observer: NEUT# NEUT# 100.1150 (B) Neutrophils/100 leukocytes in Blood by Automated count 68.7 percent Normal Neutrophils/leuk NFr Bld Auto [place] ([facility]) Note: Responsible Observer: NEUT% NEUT% 100.1125 (B) Platelets [#/volume] in Blood by Automated count 243 ThousandsPerMicroLiter_[Number_Concentration_Units] Normal Platelet # Bld Auto [place] ([facility]) Note: Responsible Observer: PLATELET COU NT PLATELET COUNT 100.1000 (D) Erythrocyte mean corpuscular hemoglobin [Entitic mass] by Automated count 30.8 PicoGram_[SI_Mass_Units] Normal MCH RBC Qn Auto [place] ([facility]) Note: Responsible Observer: MCH MCH 100 .0700 (B) Erythrocytes [#/volume] in Blood by Automated count 5. 03 MillionsPerMicroLiter_[Number_Concentration_Units] Normal RBC # Bld Auto [facility] ([facility]) Note: Responsible Observer: RBC Red Bloo d Count 100.0300 (B) NUCLEATED RED BLOOD CELL# 0 Unit NUCLEATED RED BLOOD CELL# [facility] ([facility]) Note: Responsible Observer: NRBC# NUCLEA SABRINA RBC 100.1362 (A) NUCLEATED RED BLOOD CELL 0 percent NUCLEATED R ED BLOOD CELL [facility] ([facility]) Note: Responsible Observer: NRBC% NRBC% 100.1360 (B) ID Date Data Source [id number] 04/11/2020 05:55:00 PM EDT [place] ([facility]) Name Value Range Interpretation Code Description Data Shelly rce(s) Supporting Document(s) Reported Physicians See Note Reported Physici ans [place] ([facility]) Note: Reported Physicians:Ordering: Ember Arguelloending: Talita Cannon To: Esha Talamantes ID Date Data Source [id number] 04/11/2020 05:55:00 PM EDT [place] ([facility]) Name Value Range Interpretation Code Description Data Shelly rce(s) Supporting Document(s) Magnesium [Mass/volume] in Serum or Plasma 2.3 MilliGramsPerDeciLiter_[Mass_Concentration_Units] Normal [facility] Note: Responsible Observer: Magnesium Ma gnesium 400.3300 (G) ID Date Data Source [id number] 04/11/2020 05:55:00 PM EDT [place] ([facility]) Name Value Range Interpretation Code Description Data Shelly rce(s) Supporting Document(s) Reported Physicians See Note Reported Physici ans [place] ([facility]) Note: Reported Physicians:Ordering: Pradeep Ferraraending: John De Souzaitting: Honorio De SouzaCopninfa To: Pete De Souza To: Esha Talamantes ID Date Data Source [id number] 04/11/2020 05:55:00 PM EDT [place] ([facility]) Name Value Range Interpretation Code Description Data Shelly rce(s) Supporting Document(s) Erythrocyte sedimentation rate by Westergren method 13 Normal ESR Bld Qn [facility] ([facility]) Note: @Reenter manual test result: 13@by Tori Child at 04/11/20 2328.Responsible Observer: SED RATE SED RATE 100.6400 (B) Notes [TIMP] See Note NOTES [place] ([facility]) Note: Special Instructions: from the las t lab sample, otherwise, from the next ID Date Data Source [id number] 04/11/2020 05:55:00 PM EDT [place] ([facility]) Name Value Range Interpretation Code Description Data Shelly rce(s) Supporting Document(s) Reported Physicians See Note [facility] Note: Reported Physicians:Ordering: Kian ArguelloAttending: Talita Cannon To: Esha Talamantes ID Date Data Source [id number] [facility]11[facility]2020 05:55[facility] Name Value Range Interpretation Code Description Data Shelly rce(s) Supporting Document(s) Chemistry studies (set) 2.4 percent Chemistry s [facility]) Note: Responsible Observer: CK RELATIVE % CK RELATIVE % 600.0055 (A) Creatine kinase [Enzymatic activity/volume] in Serum o r Plasma 158 enzyme_unit_per_liter Normal CK [facility]) Note: Responsible Observer: CK Creatine Kinase 400.9115 (G) Creatine kinase.MB [Enzymatic activity/volume] in Seru m or Plasma 3.8 NanoGramsPerMilliLiter_[Mass_Concentration_Units] Normal CK MB [facility] ([facility]) Note: Responsible Observer: CKMB Creatin e Kinase MB 600.0050 (G) ID Date Data Source [id number] 04/11/2020 05:55:00 PM [facility] ([facility]) Name Value Range Interpretation Code Description Data Shelly rce(s) Supporting Document(s) Reported Physicians See Note Reported Physici [facility] ([facility]) Note: Reported Physicians:Ordering: Ember Arguelloending: Talita Cannon To: Esha Talamantes ID Date Data Source [id number] 04/11/2020 05:55:00 PM [facility] ([facility]) Name Value Range Interpretation Code Description Data Shelly rce(s) Supporting Document(s) Troponin I.cardiac [Mass/volume] in Serum or Plasma Less Than 0.015 Normal Troponin I [facility]) Note: Less than 0.09 NG/ML Negative 0.10 - 0.77 NG/ML High Risk0.78 NG/ML or Greater PositiveThe WHO defined the cutoff (definition for diagnosis of PA)for this method as 0.78 ng/ml.Responsible Observer: Troponin I Troponin I 600.1101 (G) ID Date Data Source [id number] 04/11/2020 05:40:00 PM EDT [facility] ED Physician Documentation NAME: TOLU RATLIFF : 1955 AGE: 64 MR#: [id number] SERVICE DATE: 04/11/[address]: Kian Cannon [...] % (Auto) 68.7, Lymph % (Auto) 20.9, [place] % (Auto) 8.4, Eos % (Auto) 1.2, [...] Appearance Clear, Urine pH 5.0, Ur Specific [place] 1.010,Urine Protein Negative, Urine Ketones Negative, Urine [...] % (Auto) 68.7, Lymph % (Auto) 20.9, [place] % (Auto) 8.4, Eos % (Auto) 1.2, [...] Appearance Clear, Urine pH 5.0, Ur Specific [place] 1.010,Urine Protein Negative, Urine Ketones Negative, Urine [...] rce(s) Supporting Document(s) ID Date Data Source [id number] 04/11/2020 12:00:00 AM EDT [facility] Name Value Range Interpretation Code Description Data Shelly rce(s) Supporting Document(s) SARS-CoV2 Rapid PCR [facility] This lab was ordered by [facility] and reported by [facility]. ID Date Data Source [id number] 08/12/2019 07:48:00 AM EST [facility] Health) Name Value Range Interpretation Code Description Data Shelly rce(s) Supporting Document(s) Reported Physicians See Note Reported Physici ans ELIZABETH ([facility]) Note: Reported Physicians:Ordering: Beard e Esha AAttending: VINITA, JOCELYNConsulting: VINITA, JOCELYNCopy To: Esha Talamantes ID Date Data Source [id number] 08/12/2019 07:48:00 AM EST ELIZABETH ([facility]) Name Value Range Interpretation Code Description Data Shelly rce(s) Supporting Document(s) CPK 102 U/L CPK ELIZABETH ([facility]) Note: Responsible Observer: () ID Date Data Source [id number] 08/12/2019 07:48:00 AM EST ELIZABETH ([facility]) Name Value Range Interpretation Code Description Data Shelly rce(s) Supporting Document(s) Reported Physicians See Note Reported Physici ans ELIZABETH ([facility]) Note: Reported Physicians:Ordering: Beard e, Esha AAttending: VINITA, JOCELYNConsulting: VINITA, JOCELYNCopy To: Esha Talamantes ID Date Data Source [id number] 08/12/2019 07:48:00 AM EST [place] ([facility]) Name Value Range Interpretation Code Description Data Shelly rce(s) Supporting Document(s) A/G RATIO 1.7 A/G RATIO [place] ([facility]) Note: Responsible Observer: () AFR AMER GFR >60 mL/min AFR AMER GFR [place] ([facility]) Note: Male GFR Interprentation 20- 49 yrs [...] () 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 64 yrs AGE [place] ([facility]) Note: Responsible Observer: () Albumin [Mass/volume] in Blood by Bromocresol purple ( BCP) dye binding method 4.3 G/DL ALBUMIN [place] ([facility]) Note: Responsible Observer: () ALKALINE PHOS 48 U/L ALKALINE PHOS [place] ([facility]) Note: Responsible Observer: () Anion gap in Body fluid 12.0 mmol/L ANION GAP [place] ([facility]) Note: Responsible Observer: () BUN 15 MG/DL BUN [place] ([facility]) Note: Responsible Observer: () BUN/CREAT 19 BUN/CREAT [place] ([facility]) Note: Responsible Observer: () Calcium [Moles/volume] in Urine collected for unspecified durati on 9.5 MG/DL CALCIUM [place] ([facility]) Note: Responsible Observer: () Chloride [Moles/volume] in Serum, Plasma or Blood 103 mEq/L CHLORIDE [place] ([facility]) Note: Responsible Observer: () CO2 24 MEQ/L CO2 [place] ([facility]) Note: Responsible Observer: () COMPREHENSIVE METABOLIC PANEL See Note COMPRE HENSIVE METABOLIC PANEL [place] ([facility]) Note: COMPREHENSIVE METABOLIC PANELR esponsible Observer: () Creatinine [Moles/volume] in Vitreous fluid 0.8 MG/DL CREATININE [place] ([facility]) Note: Responsible Observer: () Globulin [Mass/time] in 24 hour Urine 2.5 GM/DL GLOBULIN [place] ([facility]) Note: Responsible Observer: () Glucose [Mass/volume] in Urine collected for unspecified duratio n 184 MG/DL Above high normal GLUCOSE [place] ([facility]) Note: Responsible Observer: () NON-AA GFR >60 mL/min NON-AA GFR [place] ([facility]) Note: Responsible Observer: () Potassium [Mass/volume] in Blood 4.7 mEq/L POT ASSIUM [place] ([facility]) Note: Responsible Observer: () SGOT/AST 21 U/L SGOT/AST [place] ([facility]) Note: Responsible Observer: () SGPT/ALT 30 U/L SGPT/ALT [place] ([facility]) Note: Responsible Observer: () Sodium [Moles/volume] in Serum, Plasma or Blood 139 mEq/L SODIUM [place] ([facility]) Note: Responsible Observer: () TOTAL BILI <0.7 MG/DL TOTAL BILI [place] ([facility]) Note: Responsible Observer: () TOTAL PROTEIN 6.8 G/DL TOTAL PROTEIN [place] ([facility]) Note: Responsible Observer: () ID Date Data Source [id number] 08/12/2019 07:48:00 AM EST [place] ([facility]) Name Value Range Interpretation Code Description Data Shelly rce(s) Supporting Document(s) Reported Physicians See Note Reported Physici ans [place] ([facility]) Note: Reported Physicians:Ordering: Esha De La Garza AAttending: ESHA TALAMANTESConsulting: ESHA TALAMANTESCopy To: Esha Talamantes ID Date Data Source [id number] 08/12/2019 07:48:00 AM EST [place] ([facility]) Name Value Range Interpretation Code Description Data Shelly rce(s) Supporting Document(s) CREAT UR 137.6 MG/DL Above high normal CREAT UR KIARA HAWKINS ([facility]) Note: Responsible Observer: (BLD) MA/CREAT RATIO 2.76 MCG/MG MA/CREAT RATIO JEMIMA TEJADA ([facility]) Note: The [place] [employer] ion states that Microalbuminemia is present if the Microalbumin/Creatinine ratio exceeds 30 mcg/mg. The threshold for Clinical Albuminuria is reached at 300 mcg/mg. The classification of a patient should be based upon at least 2 or 3 abnormal results on specimens collected within a 3 to 6 month timeframe.Responsible Observer: (BLD) MICROALBUMIN <12.00 MG/L Above high normal MICROALBUMIN GR ASHLEYREPLACED BY [facility] ([facility]) Note: Responsible Observer: (BLD) ID Date Data Source [id number] 08/12/2019 07:48:00 AM EST [place] ([facility]) Name Value Range Interpretation Code Description Data Shelly rce(s) Supporting Document(s) Reported Physicians See Note Reported Physici ans [place] ([facility]) Note: Reported Physicians:Ordering: Esha De La Garza AAttending: ESHA TALAMANTESConsulting: ESHA TALAMANTESCopninfa To: Esha Talamantes ID Date Data Source [id number] 08/12/2019 07:48:00 AM [facility] ([facility]) Name Value Range Interpretation Code Description Data Shelly rce(s) Supporting Document(s) PSA 0.95 ng/mL PSA [place] ([facility]) Note: BLDoPSA INTERP RETATIONBLDx The PSA [...] interchangeably.Responsible Observer: () ID Date Data Source [id number] 08/12/2019 07:48:00 AM [facility] ([facility]) Name Value Range Interpretation Code Description Data Shelly rce(s) Supporting Document(s) Reported Physicians See Note Reported Physici ans [place] ([facility]) Note: Reported Physicians:Ordering: Esha De La Garza AAttending: JUSTUS TALAMANTESYNConsulting: ARMINDA TALAMANTESCELYNCopy To: Esha Talamantes ID Date Data Source [id number] 08/12/2019 07:48:00 AM [facility] ([facility]) Name Value Range Interpretation Code Description Data Shelly rce(s) Supporting Document(s) Cholesterol [Moles/volume] in Pericardial fluid 177 MG/DL CHOLESTEROL [place] ([facility]) Note: Responsible Observer: (BLD) CVE PANEL See Note CVE PANEL [place] ([facility]) Note: LIPID PANELResponsible Observe r: (BLD) HDL 48 MG/DL HDL [place] ([facility]) Note: Responsible Observer: (BLD) Cholesterol in LDL [Mass/volume] in Serum or Plasma by Direct as say 91 mg/dL LDL [place] ([facility]) Note: Responsible Observer: (BLD) LDL/HDL 1.90 LDL/HDL [place] ([facility]) Note: CVE RISK CHOL/HD L LDL/HDLMEN: 1/2 AVERAGE 3.43 1.00 AVERAGE 4.97 3.55 2X AVERAGE 9.55 6.25 3X AVERAGE 23.99 7.99WOMEN: 1/2 AVERAGE 3.27 1.47 AVERAGE 4.44 3.22 2X AVERAGE 7.05 5.03 3X AVERAGE 11.04 6.14Responsible Observer: (BLD) RISK FACTOR 3.7 RISK FACTOR [place] ([facility]) Note: Responsible Observer: (BLD) TRIGLYCERIDES 272 MG/DL Above high normal [facility]IDES [facility]) Note: Responsible Observer: (BLD) ID Date Data Source [id number] 08/12/2019 07:48:00 AM [facility] ([facility]) Name Value Range Interpretation Code Description Data Shelly rce(s) Supporting Document(s) Reported Physicians See Note Reported Physici ans [place] ([facility]) Note: Reported Physicians:Ordering: Esha De La Garza AAttending: ESHA TALAMANTESConsulting: Alex TALAMANTES To: Esha Talamantes ID Date Data Source [id number] 08/12/2019 07:48:00 AM [facility] ([facility]) Name Value Range Interpretation Code Description Data Shelly rce(s) Supporting Document(s) Testosterone, Serum 137 ng/dL Below low normal Testostero ne, Serum [place] ([facility]) Note: Adult male reference interval is b ased on a population ofhealthy nonobese males (BMI <30) between 19 and 39 years old.Silas, et.al. JCEM 2017,102;1161- 1173. PMID: 46993375.Responsible Observer: (rfl) ID Date Data Source [id number] 08/13/2019 08:10:00 AM [facility] Name Value Range Interpretation Code Description Data Shelly rce(s) Supporting Document(s) Testosterone [Mass/volume] in Serum or Plasma 137 ng/dL 264-916 L [facility] Adult male reference interval is based o n a population ofhealthy nonobese males (BMI <30) between 19 and 39 years old.Silas, et.al. JCEM 2017,102;6229-5521. PMID: [id number]. ID Date Data Source [id number] 08/12/2019 01:01:00 PM [facility] Name Value Range Interpretation Code Description Data Shelly rce(s) Supporting Document(s) [facility] Cholesterol [Mass/volume] in Serum or Plasma 177 MG/DL 131 - 200 [facility] Deprecated Triglyceride [Mass/volume] in Serum or Plasma 272 MG/DL 3 5 - 160 H [facility] HDL 48 MG/DL 29 - 86 [facility] Cholesterol in LDL/Cholesterol in HDL [Mass Ratio] in Serum or Plasma 91 mg/dL 65 - 175 [facility] Cholesterol.total/Cholesterol in HDL [Mass Ratio] in Serum o r Plasma 3.7 3.4 - 4.9 [facility] LDL/HDL 1.90 1.00 - 3.55 [facility] ital CVE RISK CHOL/HDL LDL/HDLMEN: 1/2 AVERAGE 3.43 1.00 AVERAGE 4.97 3.55 2X AVERAGE 9.55 6.25 3X AVERAGE 23.99 7.99WOMEN: 1/2 AVERAGE 3.27 1.47 AVERAGE 4.44 3.22 2X AVERAGE 7.05 5.03 3X AVERAGE 11.04 6.14 ID Date Data Source [id number] 08/12/2019 12:41:00 PM [facility] Name Value Range Interpretation Code Description Data Shelly rce(s) Supporting Document(s) Prostate specific Ag [Mass/volume] in Serum or Plasma 0.95 ng/mL 0.00 - 4.00 [facility] \\BLDo\\PSA INTERPRETA TION\\BLDx\\ The PSA assay [...] be used interchangeably. ID Date Data Source [id number] 08/12/2019 12:10:00 PM [facility] Name Value Range Interpretation Code Description Data Shelly rce(s) Supporting Document(s) COMPREHENSIVE METABOLIC PANEL [facility] COMPREHENSIVE METABOLIC PANEL Sodium [Moles/volume] in Serum or Plasma 139 mEq/L 134 - 153 [facility] Potassium [Moles/volume] in Serum or Plasma 4.7 mEq/L 3.6 - 5.0 [facility] Chloride [Moles/volume] in Serum or Plasma 103 mEq/L 98 - 107 [facility] Carbon dioxide, total [Moles/volume] in Serum or Plasma 24 MEQ/L 22 - 30 [facility] Glucose [Mass/volume] in Serum or Plasma 184 MG/DL 65 - 110 H [facility] BUN 15 MG/DL 7 - 21 [facility] Creatinine [Mass/volume] in Serum or Plasma 0.8 MG/DL 0.7 - 1.5 [facility] BUN/CREAT 19 8 - 27 [facility] al Protein [Mass/volume] in Serum or Plasma 6.8 G/DL 6.3 - 8.2 [facility] Albumin [Mass/volume] in Serum or Plasma 4.3 G/DL 3.9 - 5.0 [facility] Globulin [Mass/volume] in Serum by calculation 2.5 GM/DL 2.4 - 3.2 [facility] A/G RATIO 1.7 0.8 - 2.0 [facility] Calcium [Mass/volume] in Serum or Plasma 9.5 MG/DL 8.4 - 10.2 [facility] Bilirubin.total [Mass/volume] in Serum or Plasma <0.7 MG/DL 0.2 - 1.3 [facility] Alkaline phosphatase [Enzymatic activity/volume] in Serum or Plasma 48 U/L 38 - 126 [facility] Aspartate aminotransferase [Enzymatic activity/volume] in Serum or Plasma 21 U/L 5 - 40 [facility] Alanine aminotransferase [Enzymatic activity/volume] in Seru m or Plasma 30 U/L 7 - 56 [facility] Anion gap 3 in Serum or Plasma 12.0 mmol/L 8.0 - 16.0 [facility] AGE 64 yrs [facility] al NON-AA GFR >60 mL/min [facility] ital AFR AMER GFR >60 mL/min [facility] Ho spital Male GFR In [...] >32 mL/min Normal ID Date Data Source [id number] 08/12/2019 12:10:00 PM EST [facility] Name Value Range Interpretation Code Description Data Shelly rce(s) Supporting Document(s) CREAT UR 137.6 MG/DL 0.0 - 30.0 H [facility] pital MICROALBUMIN <12.00 MG/L 0.00 - 0.00 H [facility] MA/CREAT RATIO 2.76 MCG/MG 0.01 - 30.00 [facility] The [place] [employer] st ates that Microalbuminemia is present if the Microalbumin/Creatinine ratio exceeds 30 mcg/mg. The threshold for Clinical Albuminuria is reached at 300 mcg/mg. The classification of a patient should be based upon at least 2 or 3 abnormal results on specimens collected within a 3 to 6 month timeframe. ID Date Data Source [id number] 08/12/2019 12:03:00 PM [facility] Name Value Range Interpretation Code Description Data Shelly rce(s) Supporting Document(s) Creatine kinase [Enzymatic activity/volume] in Serum or Plasma 1 02 U/L 30 - 170 [facility] ID Date Data Source [id number] 07/09/2019 08:53:00 AM [facility] [address] [place] [address] PHONE: [phone] FAX: [phone] Name ..............: APRYL Ma Acct Number ...........................: [id number] ROOM. ............: TR-1A Number ............................: [id number] Stay type.........: E/R Discharge Date...............:07/07/19 Admit Date .....: 07/07/19 Admit Phys .............................: SIVA TOPETE Date of ..: 1955 Family Phys ...........................: VINITA HOOPER Phone..............: [phone] Age.................................:63 Film# ...............:[id number] Sex.................................:M Unsigned transcriptions are preliminary reports and do not represent a medical or legal document EKG [id number] COMPLETE:07/08/19 07:30 SAVAGE [id number] Please See Scanned Results. Name Value Range Interpretation Code Description Data Shelly rce(s) Supporting Document(s) ID Date Data Source [id number] 07/08/2019 09:58:00 AM EST [facility] [address] [place] [address] PHONE: [phone] FAX: [phone] Name .................. : APRYL Ma Acct Number.................. : [id number] ROOM. ................. : -1A MR Number ................... : [id number] Stay type ............. : E/R Discharge Date......... ... : 07/07/19 Admit Date ......... : 07/07/19 Admit Phys .................... : SIVA TOPETE Date of ....... : 1955 Family Phys ................... : VINITA HUNTCE Phone .................. : [phone] Age ................................ : 63 Film# .................. .:[id number] Sex ................................. : M Unsigned transcriptions are preliminary reports and do not represent a medical or legal document CT CERV SPINE W/O CONTRAS [id number] COMPLETE:07/07/19 13:35 92309 Reason(s): Pain CT STUDY OF THE CERVICAL [...] via fax [address] [facility] [address] [place] [address] PHONE: [phone] FAX: [phone] Name .................. : APRYL Ma Acct Number.................. : [id number] ROOM. ................. : TR-1A MR Number ................... : [id number] Stay type ............. : E/R Discharge D ate......... ... : 07/07/19 Admit Date ......... : 07/07/19 Admit Phys .................... : SIVA TOPETE Date of ....... : 1955 Family Phys ................... : VINITA HOOPER Phone .................. : [phone] Age ................................ : 63 Film# .................. .:[id number] Sex ................................. : M Unsigned transcriptions are preliminary reports and do not represent a medical or legal document CT CERV SPINE W/O CONTRAS [id number] COMPLETE:07/07/19 13:35 81768 Reason(s): Pain Copy for: EMERGENCY DEPT via mode Copy for: 710 MED REC DISCHARGED Page 2 of 2 Name Value Range Interpretation Code Description Data Shelly rce(s) Supporting Document(s) ID Date Data Source [id number] 07/08/2019 09:54:00 AM EST [facility] [address] [place] [address] PHONE: [phone] FAX: [phone] Name .................. : APRYL Ma Acct Number.................. : [id number] ROOM. ................. : TR-1A MR Number ................... : [id number] Stay type ............. : E/R Discharge Date......... ... : 07/07/19 Admit Date ......... : 07/07/19 Admit Phys .................... : SIVA TOPETE Date of ....... : 1955 Family Phys ................... : VINITA HOOPER Phone .................. : [phone] Age ................................ : 63 Film# .................. .:[id number] Sex ................................. : M Unsigned transcriptions are preliminary reports and do not represent a medical or legal document [place]OW COMPLETE [place] [id number] COMPLETE:07/07/19 13:37 32783 Reason(s): Pain LEFT ELBOW SERIES: FINDINGS: No [...] rce(s) Supporting Document(s) ID Date Data Source [id number] 07/08/2019 09:54:00 AM EST [facility] [address] [place] [address] PHONE: [phone] FAX: [phone] Name .................. : APRYL Ma Acct Number.................. : [id number] ROOM. ................. : [facility] MR Number ................... : [id number] Stay type ............. : E/R Discharge Date......... ... : 07/07/19 Admit Date ......... : 07/07/19 Admit Phys .................... : SIVA TOPETE Date of ....... : 1955 Family Phys ................... : VINITA HOOPER Phone .................. : [phone] Age ................................ : 63 Film# .................. .:[id number] Sex ................................. : M Unsigned transcriptions are preliminary reports and do not represent a medical or legal document CHEST 2 VIEWS [id number] COMPLETE:07/07/19 13:35 44740 Reason(s): Congestion CHEST X-RAY: 2-VIEWS HISTORY: Congestion [...] rce(s) Supporting Document(s) ID Date Data Source [id number] 07/07/2019 01:18:00 PM EST [facility] 1 OrderSheet [facility] Emergency Department [address] [place] [address] Phone #: ext- [phone] 07/07/2019 13:01 Patient: [...] RN PA;Blood Culture STAT 13:35 07/07/2019 13:46 [id number] X2 (Sched Faustino Paris RN13:35 07/07/2019) PA;Blood Culture STAT 13:35 07/07/2019 13:46 [id number] X2 (Sched Faustino sparrow RN13:45 07/07/2019) PA;Lactic Acid STAT 13:35 07/07/2019 13:46 Edna Paris RN PA;PT/PTT STAT 13:35 07/07/2019 13:46 Edna Paris RN PA;Urinalysis (Clean STAT 13:35 07/07/2019 15:25 DorisCatch) Faustino Paris RN PA;Sed. Rate STAT 13:35 07/07/2019 13:46 Edna Paris RN PA;CRP STAT 13:35 07/07/2019 13:46 Edna Paris RN PA;Troponin-T STAT 13:35 07/07/2019 13:46 Edna Paris RN PA; 2 OrderSheet [facility] Emergency Department [address] [place] [address] Phone #: ext- [phone] 07/07/2019 13:01 Patient: [...] 15:30 Edna Paris RN PA; 3 OrderSheet [facility] Emergency Department [address] [place] [address] Phone #: ext- [phone] 07/07/2019 13:01 Patient: TOLU RATLIFF Sex: M : 1955 Age: 63y[Electronically signed by Edna Paris RN (15:38 07/07/2019)][Electronically signed by Faustino Young (17:59 07/07/2019)][Electronically locked by Edna Paris RN (15:38 07/07/2019)] Name Value Range Interpretation Code Description Data Shelly rce(s) Supporting Document(s) ID Date Data Source [id number] 07/07/2019 01:18:00 PM EST [facility] 1 Medication Reconciliation Report [facility] Emergency Department [address] [place], [place] [address] Phone #: ext- [phone] 07/07/2019 13:01 Patient: TOLU RATLIFF Sex: M [...] 1 pack. Refills: 0. Substitution permitted.Pharmacy - [facility] #[id number] - [address] [place], [place] [id number]. .Bactrim DS 800 mg-160 mg tablet Take 1 tablet twice a day for 10 days -- Dispense 20 tablet. Refills: 2 Medication Reconciliation Report [facility] Emergency Department [address] [place] [address] Phone #: ext- [phone] 07/07/2019 13:01 Patient: TOLU RATLIFF Sex: M : 1955 Age: 63y0. Substitution permitted.Pharmacy - [id number] - [address] [facility] ; [place], [place] [id number]. . -- FABRICE Pena Name Value Range Interpretation Code Description Data Shelly rce(s) Supporting Document(s) ID Date Data Source [id number] 07/07/2019 01:18:00 PM EST [facility] 1 Medication Administration Record [facility] Emergency Department [address] [place] [address] Phone #: oat- [phone] 07/07/2019 13:01 Patient: TOLU RATLIFF Sex: M [...] rce(s) Supporting Document(s) ID Date Data Source [id number] 07/07/2019 01:18:00 PM EST [facility] 1 General Instructions [facility] Emergency Department [address] [place] [address] Phone #: ext- [phone] 07/07/2019 13:01 Patient: [...] tomorrow AM.Dispense 1 pack. Refills: 0. Substitution permitted.[facility] - [facility] #[id number] - [address] [place], [place] [id number]. FaxNumber: .Bactrim DS 800 mg-160 mg tablet Take 1 tablet twice a day for 10 days -- Dispense 20 tablet. Refills:0. Substitution permitted.[facility] #[id number] - [address] [place], [place] [id number]. .Follow-up:Follow up with your doctor Monday. Call for an appointment. Reason for referral: evaluation, treatment andreferral to Orthopedics for left elbow burisitis if no improvement.. Summary of care provided to patient.Understanding of the discharge instructions verbalized by patient. ADDITIONAL INFORMATIONBursitis 2 General Instructions [facility] Emergency Department [address] [place] [address] Phone #: hmk- [phone] 07/07/2019 13:01 Patient: TOLU RATLIFF Sex: M [...] wrap or splint wet. You may take zkwv-gpf-stddyul pain medicine to treat pain and inflammation, [...] to flare up again. 3 General Instructions [facility] Emergency Department [address] [place] [address] Phone #: ext- [phone] 07/07/2019 13:01 Patient: TOLU RATLIFF Sex: M : 1955 Age: 63yWhen to seek medical adviceCall your healthcare provider right away if any of these occur: Redness or warmth over the painful area Increasing pain or swelling at the joint Fever of 100.4F (38C) or above lasting for 24 to 48 hours, or as advised Chills [phone] [employer]. [address] [place] [address]. All rights reserved. This information is not [...] apply an elastic bandage: 4 General Instructions [facility] Emergency Department [address] [place] [address] Phone #: ext- [phone] 07/07/2019 13:01 [id number] Sex: M : 1955 Age: 63y Check [...] doesn't go away after bandage is removed [phone] [employer]. [address] [place] [address], [place] [address]. All rights reserved. This information is not intended as asubstitute for professional medical care. Always follow your healthcare professional's instructions. You have been given the following additional information: Bursitis TARYN Wrap 5 General Instructions [facility] Emergency Department [address] [place] [address] Phone #: ext- [phone] 07/07/2019 13:01 Patient: TOLU RATLIFF Sex: M : 1955 Age: 63y(Electronically signed by FABRICE Pena 07/07/2019 17:59) Name Value Range Interpretation Code Description Data Shelly rce(s) Supporting Document(s) ID Date Data Source [id number] 07/07/2019 01:18:00 PM EST [facility] 1 Clinical Report - Nurses [facility] Emergency Department [address] [place] [address] Phone #: ext [phone] 07/07/2019 13:01 Patient: TOLU RATLIFF Sex: M [...] RN.ADDITIONAL SURGERIES: 2 Clinical Report - Nurses [facility] Department [address] [place] [address] Phone #: ext- [phone] 07/07/2019 13:01 [id number] Sex: M : 1955 Age: 63y Back [...] risk identified. --13:12 07/07/19 Edna Paris RN.PHYSICAL [id number] 07/07/19. Ambulatory to room.GENERAL / NEURO / [...] Paris RN 3 Clinical Report - Nurses [facility] Emergency Department [address] [place] [address] Phone #: [phone] [phone] 07/07/2019 13:01 Patient: TOLU RATLIFF Sex: M [...] radiology and CT by wheelchair with radiology scheduler. --14:38 07/07/19 Edna Paris RN 14:38 07/07/19. Patient returned from radiology and CT by wheelchair with radiology scheduler. --14:38 07/07/19 Edna Paris RN 14:50 07/07/2019 [...] F. Pain level now 10. --15:35 07/07/19 [place] [facility] day care provider, [place]ma, ER Tech1 15:37 07/07/19. Condition at departure: improved and stable. No learning barriers present. Discharge instructions provided and reviewed with the patient. Reviewed medication(s) side effects, precautions, dosing and course information. Prescription(s) sent electronically to pharmacy (Medrol, Bactrim DS). Patient verbalized understanding. Written instructions provided in Uzbek. The patient was discharged home. He left ambulatory and via private vehicle. Patient driving. --15:38 07/07/19 Edna Paris RN.Locked/Released at 07/07/2019 15:38 by Edna Paris RN Name Value Range Interpretation Code Description Data Shelly rce(s) Supporting Document(s) ID Date Data Source [id number] 07/07/2019 01:18:00 PM [facility] 1 Clinical Report - Physicians/Mid Levels [facility] Emergency Department [address] [place] [address] Phone #: ext- [phone] 07/07/2019 13:01 Patient: [...] hives). 2 Clinical Report - Physicians/Mid Levels [facility] Emergency Department [address] [place] [address] Phone #: ext- [phone] 07/07/2019 13:01 Patient: TOLU RATLIFF Sex: M [...] 2.0) 3 Clinical Report - Physicians/Mid Levels [facility] Emergency Department [address] [place] [address] Phone #: ext- [phone] 07/07/2019 13:01 Patient: [...] Male GFR Interprentation 20-49 yrs >60 mL/min Johcqu54-70 yrs >56 mL/min Normal 60-69 yrs >49 mL/min Normal 70-79yrs>42 mL/min Normal 80 and above >35 mL/min Normal Female GFRInterpretation 20-39 yrs >60 mL/min Normal 40-49 yrs >58 mL/minNormal 50-59 yrs >51 mL/min Normal 60-69 yrs >45 mL/min Mkkuui68-81 yrs >39 mL/min Normal 80 and above [...] VenousThrombosis, Pulmonary Embolus, Tissue heart valves, Acute PA Atrial Fibrillation, Valvular heart diseaseand recurrent Systemic Embolism. -International Normalized Ratio (INR): 2.5 - 3.5 forMechanical Prosthetic valve. \\BLDo\\PTT INTERPRETATION\\BLDx\\Critical results for patients not on therapy: >50 seconds Critical results for patients on therapy:>119 seconds Therapeutic range for patients on therapy: 58 - 90 seconds Coag studies fromline draws may not be accurate due to Heparin and other interferences.CRP: (RYAN: 07/07/2019 14:01) ( [facility] 07/07/2019 14:40) Final results 4 Clinical Report - Physicians/Mid Levels [facility] Emergency Department [address] [place] [address] Phone #: ext- [phone] 07/07/2019 13:01 Patient: [...] prn. 5 Clinical Report - Physicians/Mid Levels [facility] Emergency Department [address] [place] [address] Phone #: ext [phone] 07/07/2019 13:01 Patient: TOLU RATLIFF Sex: M : 1955 Age: 63y Serevent Diskus Inhalation : 2 puffs daily. Prescription Medications: Medrol (Chucky) 4 mg tablets in a dose pack Take 1 tablet as directed for 6 days -- start tomorrow AM. Dispense 1 pack. Refills: 0. Substitution permitted. Pharmacy - [id number] [address] [place], [place] [id number]. . Bactrim DS 800 mg-160 mg tablet Take 1 tablet twice a day for 10 days -- Dispense 20 tablet. Refills: 0. Substitution permitted. [id number] [place], [place] [id number]. FaxNumber: . Follow-up: Follow up with your [...] rce(s) Supporting Document(s) ID Date Data Source [id number] 07/07/2019 03:30:00 PM EST [place] ([facility]) Name Value Range Interpretation Code Description Data Shelly rce(s) Supporting Document(s) Reported Physicians See Note Reported Physici ans [facility] ([facility]) Note: Reported Physicians:Ordering: Sandy UMANAending: Liyah PANIAGUAulting: ESHA TALAMANTESCopninfa To: Faustino YoungCopninfa To: YUSEF PANIAGUAANCopy To: Esha Talamantes ID Date Data Source [id number] 07/07/2019 03:30:00 PM EST [facility] ([facility]) Name Value Range Interpretation Code Description Data Shelly rce(s) Supporting Document(s) Bilirubin [Presence] in Peritoneal fluid NEG BILIRUBIN [facility] ([facility]) Note: Responsible Observer: () Blood [Presence] in Urine by Visual NEG BLOOD [facility] ([facility]) Note: Responsible Observer: () Clarity of Pleural fluid from Fetus clear CLARITY [facility] ([facility]) Note: Responsible Observer: () Color of Exudate from wound yellow COLOR [facility] ([facility]) Note: Responsible Observer: () Glucose [Mass/volume] in Urine collected for unspecified duration N ORM GLUCOSE [facility] ([facility]) Note: Responsible Observer: () KETONE NEG KETONE [facility] ([facility]) Note: Responsible Observer: () LEUK EST NEG LEUK EST [facility] ([facility]) Note: Responsible Observer: () MICROSCOPIC Not Indicate MICROSCOPIC [facility] ([facility]) Note: Responsible Observer: () Nitrite [Presence] in Urine by Test strip NEG NITRITE [facility] ([facility]) Note: Responsible Observer: () pH of Vaginal fluid by Test strip 5 pH [facility] ([facility]) Note: Responsible Observer: () Protein [Mass/volume] in Saliva (oral fluid) NEG PROTEIN [facility] ([facility]) Note: Responsible Observer: () SPEC GRAVITY 1.030 SPEC GRAVITY [facility] ([facility]) Note: Responsible Observer: () Urobilinogen [Presence] in Urine by Automated test strip NOR UROBILINOGEN [facility] ([facility]) Note: Responsible Observer: () SOURCE R SOURCE [facility] ([facility]) Note: Responsible Observer: () URINALYSIS See Note URINALYSIS [facility] ([facility]) Note: URINALYSISResponsible Observer : () ID Date Data Source [id number] 07/07/2019 03:53:00 PM [facility] Name Value Range Interpretation Code Description Data Shelly rce(s) Supporting Document(s) URINALYSIS [facility] URINALYSIS SOURCE R [facility] COLOR yellow NORMAL: Yellow [facility] CLARITY clear NORMAL: Clear [facility] Specific gravity of Urine by Test strip 1.030 1.001 - 1.030 [facility] pH 5 5 - 9 [facility] al Glucose [Mass/volume] in Urine by Test strip NORM NORMAL: Negat [facility] Bilirubin.total [Presence] in Urine by Test strip NEG NORMAL: Negative [facility] Ketones [Presence] in Urine by Test strip NEG NORMAL: Negative [facility] Protein [Mass/volume] in Urine by Test strip NEG NORMAL: Negat [facility] Nitrite [Presence] in Urine by Test strip NEG NORMAL: Negative [facility] BLOOD NEG NORMAL: Negative [facility] Leukocyte esterase [Presence] in Urine by Test strip NEG JOSE L: Negative [facility] Urobilinogen [Mass/volume] in Urine by Test strip NOR less madeleine n 1.0 mg/dL [facility] MICROSCOPIC Not Indicate [facility] ID Date Data Source [id number] 07/08/2019 09:43:00 AM [facility] @ [facility] NOTIFIED 07/08/19 @ 0900 RMMLE FT ELBOW BURSADoes the specimen need to be recollected?: YREASON REJECTED:: WRONG SWAB COLLECTEDTEST(S) ORDERED:: ANAEROBIC CULTURE LEFT ELBOW [facility] [place] [facility] Name Value Range Interpretation Code Description Data Shelly rce(s) Supporting Document(s) Laboratory ANAEROBIC CULTURE [facility] Laboratory studies (set) WRONG SWAB COLLECTED [facility] One or more of the tests that youordered cannot be performed.Please recollect, reorder and resubmit. ID Date Data Source [id number] 07/09/2019 07:21:00 AM [facility] @ [facility] NOTIFIED 07/08/19 @ 0900 RMMLE FT ELBOW BURSADoes the specimen need to be recollected?: YREASON REJECTED:: WRONG SWAB COLLECTEDTEST(S) ORDERED:: ANAEROBIC CULTURE LEFT ELBOW [facility] [place] [facility] Name Value Range Interpretation Code Description Data Shelly rce(s) Supporting Document(s) Gram stain result No organisms seen [facility] ID Date Data Source [id number] 07/12/2019 10:33:00 AM [facility] @ [facility] NOTIFIED 07/08/19 @ 0900 RMMLE FT ELBOW BURSADoes the specimen need to be recollected?: YREASON REJECTED:: WRONG SWAB COLLECTEDTEST(S) ORDERED:: ANAEROBIC CULTURE LEFT ELBOW [facility] [place] [facility] Name Value Range Interpretation Code Description Data Shelly rce(s) Supporting Document(s) Bacteria identified in Wound by Aerobe culture [facility]OW [facility] Culture results No growth at 4 days [facility] ID Date Data Source [id number] 07/07/2019 03:17:00 PM ALENA JOHNSON ([facility]) Name Value Range Interpretation Code Description Data Shelly rce(s) Supporting Document(s) Reported Physicians See Note Reported Israel JOHNSON ([facility]) Note: Reported Physicians:Ordering: Sandy UMANAending: MACARIOS BRYANConsulting: JUSTUS TALAMANTESYNCopy To: Azeb Young To: MACARIOS BRYANCopy To: Esha Talamantes ID Date Data Source [id number] 07/07/2019 03:17:00 PM ALENA [place] ([facility]) Name Value Range Interpretation Code Description Data Shelly rce(s) Supporting Document(s) GRAM STAIN See Note GRAM STAIN [facility] ([facility]) Note: GRAM STAIN: TEST PERFORMED AT [facility] [address] [place] [address] CLIA# [id number] SEE SCANNED REPORT COMMENT: Respo nsible Observer: (MD) ID Date Data Source [id number] 07/07/2019 03:17:00 PM EST [place] ([facility]) Name Value Range Interpretation Code Description Data Shelly rce(s) Supporting Document(s) Reported Physicians See Note Reported Physici ans [facility] ([facility]) Note: Reported Physicians:Ordering: Sandy UMANAending: Liyah PANIAGUAulting: Alex TALAMANTES To: Azeb Young To: Trina PANIAGUA To: Esha Talamantes ID Date Data Source [id number] 07/07/2019 03:17:00 PM EST [place] ([facility]) Name Value Range Interpretation Code Description Data Shelly rce(s) Supporting Document(s) CULTURE WOUND See Note CULTURE WOUND [facility] ([facility]) Note: .WOUND CULTURE_{ SPECIM EN SOURCE : Result: TEST PERFORMED AT [place] [id number] CLIA# [id number] SEE SCANNED REPORT Responsible Observer: (DW) ID Date Data Source [id number] 07/12/2019 02:08:00 PM EST [facility] Name Value Range Interpretation Code Description Data Shelly rce(s) Supporting Document(s) CULTURE WOUND [facility] spital .WOUND CULTURE_{ SPECIMEN SHELLY RCE : Result: TEST PERFORMED AT [address] [id number] CLIA# [id number] SEE SCANNED REPORT ID Date Data Source [id number] 07/09/2019 01:14:00 PM [facility] Name Value Range Interpretation Code Description Data Shelly rce(s) Supporting Document(s) GRAM STAIN [facility] GRAM STAIN: TEST PERFORMED AT [facility] [address] [place] [address] CLIA# [id number] SEE SCANNED REPORT COMMENT: ID Date Data Source [id number] 07/13/2019 10:38:00 AM EST [facility] [id number] Name Value Range Interpretation Code Description Data Shelly rce(s) Supporting Document(s) Bacteria identified in Blood by Culture [facility] NO GROWTH AFTER 5 DAYS ID Date Data Source [id number] 07/07/2019 02:56:00 PM [facility] ([facility]) Name Value Range Interpretation Code Description Data Shelly rce(s) Supporting Document(s) Reported Physicians See Note Reported Terii karoline JOHNSON ([facility]) Note: Reported Physicians:Ordering: Sandy UMANAending: Liyah PANIAGUAulting: Alex TALAMANTES To: Azeb Young To: Trina PANIAGUA To: Esha Talamantes ID Date Data Source [id number] 07/07/2019 02:56:00 PM EST [place] ([facility]) Name Value Range Interpretation Code Description Data Shelly rce(s) Supporting Document(s) CULTURE BLOOD See Note CULTURE BLOOD [place] ([facility]) Note: _CULTURE BLOOD_ TEST P ERFORMED AT [address] [address] CLIA# [id number] SEE SCANNED REPORT{ PRELIMResponsible Observer: (GBT) ID Date Data Source [id number] 07/14/2019 03:41:00 AM [facility] Name Value Range Interpretation Code Description Data Shelly rce(s) Supporting Document(s) CULTURE BLOOD [facility] spital _CULTURE BLOOD_ TEST PERFORM ED AT [address] [address] CLIA# [id number] SEE SCANNED REPORT{ PRELIM ID Date Data Source [id number] 07/07/2019 02:01:00 PM EST [place] ([facility]) Name Value Range Interpretation Code Description Data Shelly rce(s) Supporting Document(s) Reported Physicians See Note Reported Physici ans [place] ([facility]) Note: Reported Physicians:Ordering: Sandy UMANAending: YUSEF PANIAGUAANConsulting: VINITA JOCELYNCopninfa To: Faustino YoungCopninfa To: SIVA BRYANCopy To: Arminda Talamantescelyn ID Date Data Source [id number] 07/07/2019 02:01:00 PM EST [place] ([facility]) Name Value Range Interpretation Code Description Data Shelly rce(s) Supporting Document(s) SED RATE 1 mm/hr SED RATE [facility] ([facility]) Note: Responsible Observer: () SED RATE REENTER 1 SED [facility]ATE [facility] Note: Responsible Observer: () ID Date Data Source [id number] 07/07/2019 02:01:00 PM EST [place] ([facility]) Name Value Range Interpretation Code Description Data Shelly rce(s) Supporting Document(s) Reported Physicians See Note Reported Physici ans [place] ([facility]) Note: Reported Physicians:Ordering: CHRISTIANE UMANADEAttending: VENERUS, BRYANConsulting: VINITA, JOCELYNCopy To: Christiane YoungdeCopy To: VENERUS, BRYANCopy To: Vinita, Esha ID Date Data Source [id number] 07/07/2019 02:01:00 PM EST [place] ([facility]) Name Value Range Interpretation Code Description Data Shelly rce(s) Supporting Document(s) LACTIC ACID 3.0 MMOL/L Above high normal LACTIC ACID [facility] ([facility]) Note: Responsible Observer: () ID Date Data Source [id number] 07/07/2019 02:01:00 PM EST [place] ([facility]) Name Value Range Interpretation Code Description Data Shelly rce(s) Supporting Document(s) Reported Physicians See Note Reported Physici ans [place] ([facility]) Note: Reported Physicians:Ordering: FAUSTINO UMANAAttending: VENERUS, BRYANConsulting: VINITA, JOCELYNCopy To: Faustino YoungCopy To: SRAVANTHIRUS, BRYANCopy To: VinitaArmindaEsha ID Date Data Source [id number] 07/07/2019 02:01:00 PM EST [place] ([facility]) Name Value Range Interpretation Code Description Data Shelly rce(s) Supporting Document(s) INR in Blood by Coagulation assay 0.92 Below low nor mal INR [place] ([facility]) Note: Responsible Observer: () PROTIME 12.5 SECONDS PROTIME [place] ([facility]) Note: Responsible Observer: () PTT 27.1 SECONDS PTT [place] ([facility]) Note: \\BLD o\\INR INTERPRETATION\\BLDx Therapeutic range for Coumadin and related oral anticoagulants. - International Normalized Ratio (INR): 2.0 - 3.0 for Venous Thrombosis, Pulmonary Embolus, Tissue heart valves, Acute PA Atrial Fibrillation, Valvular heart disease and recurrent [...] interferences.Responsible Observer: () ID Date Data Source [id number] 07/07/2019 02:01:00 PM EST [place] ([facility]) Name Value Range Interpretation Code Description Data Shelly rce(s) Supporting Document(s) Reported Physicians See Note Reported Physici ans [place] ([facility]) Note: Reported Physicians:Ordering: Sandy UMANAending: RACHEL PANIAGUAonsulting: JUSTUS TALAMANTESYNCopninfa To: Azeb Young To: YUSEF PANIAGUAANCopy To: Esha Talamantes ID Date Data Source [id number] 07/07/2019 02:01:00 PM EST [place] ([facility]) Name Value Range Interpretation Code Description Data Shelly rce(s) Supporting Document(s) #BASO 0.04 10\\^3/uL #BASO [facility] ([facility]) Note: Responsible Observer: () #EOS 0.18 10\\^3/uL #EOS [facility] ([facility]) Note: Responsible Observer: () #IG 0.04 10\\^3/uL #IG [facility] ([facility]) Note: Responsible Observer: () #LYMPH 2.04 10\\^3/uL #LYMPH [facility] ([facility]) Note: Responsible Observer: () #MONO 0.87 10\\^3/uL #MONO [facility] ([facility]) Note: Responsible Observer: () #NEUT 8.34 10\\^3/uL Above high normal #NEUT [place] ([facility]) Note: Responsible Observer: () #NRBC 0.00 10\\^3/uL #NRBC [facility] ([facility]) Note: Responsible Observer: () %NRBC 0.0 % %NRBC [facility] ([facility]) Note: Responsible Observer: () %IG 0.3 % Above high normal %IG [facility] ([facility]) Note: Responsible Observer: () CBC W/AUTOMATED DIFF See Note CBC W/AUTOMATED DIFF [place] ([facility]) Note: COMPLETE BLOOD COUNTResponsibl e Observer: () BASO 0.3 % BASO [facility] ([facility]) Note: Responsible Observer: () EOS 1.6 % EOS [facility] ([facility]) Note: Responsible Observer: () Hematocrit [Pure volume fraction] of Blood by Automated count 47.4 % HEMATOCRIT [place] ([facility]) Note: Responsible Observer: () LYMPH 17.7 % Below low normal LYMPH [facility] ([facility]) Note: Responsible Observer: () Hemoglobin [Mass/volume] in Mixed venous blood by Oximetry 15.9 g/d L HEMOGLOBIN [place] ([facility]) Note: Responsible Observer: () MANUAL DIFF NOT INDICATED MANUAL DIFF [place] ([facility]) Note: Responsible Observer: () MCH 30.4 pg MCH [facility] ([facility]) Note: Responsible Observer: () MCHC 33.5 g/dL MCHC [place] ([facility]) Note: Responsible Observer: () MCV 90.6 fL MCV [place] ([facility]) Note: Responsible Observer: () MONO 7.6 % MONO [place] ([facility]) Note: Responsible Observer: () NEUT 72.5 % NEUT [place] ([facility]) Note: Responsible Observer: () MPV 9.2 fL MPV [place] ([facility]) Note: Responsible Observer: () Platelets [#/area] in Blood by Microscopy high power field 217 10\\^ 3/uL PLATELETS [place] ([facility]) Note: Responsible Observer: () RBC 5.23 10\\^6/uL RBC [place] ([facility]) Note: Responsible Observer: () RBC MORPH NOT INDICATED RBC MORPH [facility] ([facility]) Note: Responsible Observer: SUSAN) RDW 12.8 % RDW [facility] ([facility]) Note: Responsible Observer: () WBC 11.5 10\\^3/uL Above high normal WBC [facility] ALEX ([facility]) Note: Responsible Observer: () ID Date Data Source [id number] 07/07/2019 02:01:00 PM EST [facility] ([facility]) Name Value Range Interpretation Code Description Data Shelly rce(s) Supporting Document(s) Reported Physicians See Note Reported Physici ans [place] ([facility]) Note: Reported Physicians:Ordering: FAUSTINO UMANAAttending: SRAVANTHIRUS, YUSEFANConsulting: VINITA, JOCELYNCopy To: Faustino YoungCopy To: VENERUS, BRYANCopy To: Vinita, Esha ID Date Data Source [id number] 07/07/2019 02:01:00 PM EST [place] ([facility]) Name Value Range Interpretation Code Description Data Shelly rce(s) Supporting Document(s) TROPONIN T 0.01 NG/ML TROPONIN T [place] ([facility]) Note: TROPONIN T0.1 ng/ml Recommended as the clinical threshold value forTroponin T.Responsible Observer: SUSAN) ID Date Data Source [id number] 07/07/2019 02:01:00 PM EST [place] ([facility]) Name Value Range Interpretation Code Description Data Sehlly rce(s) Supporting Document(s) Reported Physicians See Note Reported Physici ans [place] ([facility]) Note: Reported Physicians:Ordering: FAUSTINO UMANAAttending: VENERUS, YUSEFANConsulting: VINITA, JOCELYNCopy To: Christiane YoungdeCopy To: VENERUS, BRYANCopy To: Vinita, Esha ID Date Data Source [id number] 07/07/2019 02:01:00 PM EST [place] ([facility]) Name Value Range Interpretation Code Description Data Shelly rce(s) Supporting Document(s) A/G RATIO 1.8 A/G RATIO [place] ([facility]) Note: Responsible Observer: () AFR AMER GFR >60 mL/min AFR AMER GFR [place] ([facility]) Note: Male GFR Interprentation 20- 49 yrs [...] age 63 yrs AGE [facility] ([facility]) Note: Responsible Observer: () Albumin [Mass/volume] in Blood by Bromocresol purple ( BCP) dye binding method 4.8 G/DL ALBUMIN [place] ([facility]) Note: Responsible Observer: () ALKALINE PHOS 55 U/L ALKALINE PHOS [facility] ([facility]) Note: Responsible Observer: () BUN 15 MG/DL BUN [facility] ([facility]) Note: Responsible Observer: () Anion gap in Body fluid 15.0 mmol/L ANION GAP [facility] ([facility]) Note: Responsible Observer: () BUN/CREAT 19 BUN/CREAT [place] ([facility]) Note: Responsible Observer: () Calcium [Moles/volume] in Urine collected for unspecified durati on 10.6 MG/DL Above high normal CALCIUM [facility] ([facility]) Note: Responsible Observer: () Chloride [Moles/volume] in Serum, Plasma or Blood 102 mEq/L CHLORIDE [facility] ([facility]) Note: Responsible Observer: () CO2 24 MEQ/L CO2 [facility] ([facility]) Note: Responsible Observer: () COMPREHENSIVE METABOLIC PANEL See Note COMPRE HENSIVE METABOLIC PANEL [place] ([facility]) Note: COMPREHENSIVE METABOLIC PANELR esponsible Observer: () Creatinine [Moles/volume] in Vitreous fluid 0.8 MG/DL CREATININE [facility] ([facility]) Note: Responsible Observer: () Globulin [Mass/time] in 24 hour Urine 2.7 GM/DL GLOBULIN [place] ([facility]) Note: Responsible Observer: () Glucose [Mass/volume] in Urine collected for unspecified duratio n 120 MG/DL Above high normal GLUCOSE [place] ([facility]) Note: Responsible Observer: () NON-AA GFR >60 mL/min NON-AA GFR [place] ([facility]) Note: Responsible Observer: () Potassium [Mass/volume] in Blood 4.3 mEq/L POT ASSIUM [facility] ([facility]) Note: Responsible Observer: () SGOT/AST 26 U/L SGOT/AST [place] ([facility]) Note: Responsible Observer: () Sodium [Moles/volume] in Serum, Plasma or Blood 141 mEq/L SODIUM [place] ([facility]) Note: Responsible Observer: () SGPT/ALT 45 U/L SGPT/ALT [place] ([facility]) Note: Responsible Observer: () TOTAL BILI 0.7 MG/DL TOTAL BILI [facility] ([facility]) Note: Responsible Observer: () TOTAL PROTEIN 7.5 G/DL TOTAL PROTEIN [place] [facility] [facility] Note: Responsible Observer: () ID Date Data Source [id number] 07/07/2019 02:01:00 PM EST [place] ([facility]) Name Value Range Interpretation Code Description Data Shelly rce(s) Supporting Document(s) Reported Physicians See Note Reported Physici ans [place] ([facility]) Note: Reported Physicians:Ordering: Sandy UMANAending: Liyah PANIAGUAulting: Alex TALAMANTES To: Azeb Young To: Trina PANIAGUA To: Esha Talamantes ID Date Data Source [id number] 07/07/2019 02:01:00 PM EST [place] ([facility]) Name Value Range Interpretation Code Description Data Shelly rce(s) Supporting Document(s) CRP-HS 1.00 MG/L CRP-HS [place] ([facility]) Note: [facility] HS-CRP CUT-OFF : RELATIVE RISK: <1.0 mg/L Low 1.0 - 3.0 mg/L Average >3.0 mg/L High Optimally, the average of HS-CRP results repeated two weeks apart should be used for risk assessment.Responsible Observer: SUSAN) ID Date Data Source [id number] 07/07/2019 02:01:00 PM [facility] ([facility] Name Value Range Interpretation Code Description Data Shelly rce(s) Supporting Document(s) Reported Physicians See Note Reported Physici ans [place] ([facility]) Note: Reported Physicians:Ordering: Sandy UMANAending: RACHEL PANIAGUAonsulting: ESHA TALAMANTESCopninfa To: Azeb Young To: YUSEF PANIAGUAANCopy To: Esha Talamantes ID Date Data Source [id number] 07/07/2019 02:01:00 PM [facility] ([facility] Name Value Range Interpretation Code Description Data Shelly rce(s) Supporting Document(s) CULTURE BLOOD See Note CULTURE BLOOD [place] ([facility]) Note: _CULTURE BLOOD_ [place] [address] CLIA# [id number] SEE SCANNED REPORT{ PRELIMResponsible Observer: JOSE) ID Date Data Source [id number] 07/14/2019 03:40:00 AM [facility] Name Value Range Interpretation Code Description Data Shelly rce(s) Supporting Document(s) CULTURE BLOOD [facility] Ho spital _CULTURE BLOOD_ TEST PERFORM ED AT [address] [address] CLIA# [id number] SEE SCANNED REPORT{ PRELIM ID Date Data Source [id number] 07/07/2019 04:00:00 PM [facility] Name Value Range Interpretation Code Description Data Shelly rce(s) Supporting Document(s) Erythrocyte sedimentation rate by Westergren method 1 mm/hr 0 - 20 [facility] SED RATE REENTER 1 [facility] ID Date Data Source [id number] 07/07/2019 02:42:00 PM EST [facility] Name Value Range Interpretation Code Description Data Shelly rce(s) Supporting Document(s) COMPREHENSIVE METABOLIC PANEL [facility] COMPREHENSIVE METABOLIC PANEL Sodium [Moles/volume] in Serum or Plasma 141 mEq/L 134 - 153 [facility] Potassium [Moles/volume] in Serum or Plasma 4.3 mEq/L 3.6 - 5.0 [facility] Chloride [Moles/volume] in Serum or Plasma 102 mEq/L 98 - 107 [facility] Carbon dioxide, total [Moles/volume] in Serum or Plasma 24 MEQ/L 22 - 30 [facility] Glucose [Mass/volume] in Serum or Plasma 120 MG/DL 65 - 110 H [facility] BUN 15 MG/DL 7 - 21 [facility] Creatinine [Mass/volume] in Serum or Plasma 0.8 MG/DL 0.7 - 1.5 [facility] BUN/CREAT 19 8 - 27 [facility] Protein [Mass/volume] in Serum or Plasma 7.5 G/DL 6.3 - 8.2 [facility] Albumin [Mass/volume] in Serum or Plasma 4.8 G/DL 3.9 - 5.0 [facility] Globulin [Mass/volume] in Serum by calculation 2.7 GM/DL 2.4 - 3.2 [facility] A/G RATIO 1.8 0.8 - 2.0 [facility] Calcium [Mass/volume] in Serum or Plasma 10.6 MG/DL 8.4 - 10.2 H [facility] Bilirubin.total [Mass/volume] in Serum or Plasma 0.7 MG/DL 0.2 - 1.3 [facility] Alkaline phosphatase [Enzymatic activity/volume] in Serum or Plasma 55 U/L 38 - 126 [facility] Aspartate aminotransferase [Enzymatic activity/volume] in Serum or Plasma 26 U/L 5 - 40 [facility] Alanine aminotransferase [Enzymatic activity/volume] in Seru m or Plasma 45 U/L 7 - 56 [facility] Anion gap 3 in Serum or Plasma 15.0 mmol/L 8.0 - 16.0 [facility] AGE 63 yrs [facility] NON-AA GFR >60 mL/min [facility] ital AFR AMER GFR >60 mL/min [facility] spital Male GFR In [...] >32 mL/min Normal ID Date Data Source [id number] 07/07/2019 02:41:00 PM EST [facility] Name Value Range Interpretation Code Description Data Shelly rce(s) Supporting Document(s) CBC W/AUTOMATED DIFF [facility] COMPLETE BLOOD COUNT Leukocytes [#/volume] in Blood by Automated count 11.5 10^3/uL 4.2 - 11.0 H [facility] Erythrocytes [#/volume] in Blood by Automated count 5.23 10^6/uL 4. 50 - 6.30 [facility] Hemoglobin [Mass/volume] in Blood 15.9 g/dL 14.0 - 16.0 [facility] Hematocrit [Volume Fraction] of Blood by Automated count 47.4 % 4 1.0 - 51.0 [facility] Erythrocyte mean corpuscular volume [Entitic volume] by Auto mated count 90.6 fL 80.0 - 94.0 [facility] Erythrocyte mean corpuscular hemoglobin [Entitic mass] by Automated count 30.4 pg 27.0 - 34.0 [facility] Erythrocyte mean corpuscular hemoglobin concentration [Mass/volume] by Automated count 33.5 g/dL 31.0 - 36.0 [facility] Erythrocyte distribution width [Ratio] by Automated count 12.8 % 11.5 - 14.8 [facility] Platelets [#/volume] in Blood by Automated count 217 10^3/uL 150 - 45 0 [facility] Platelet mean volume [Entitic volume] in Blood by Automated count 9.2 fL 7.4 - 10.4 [facility] Neutrophils/100 leukocytes in Blood by Automated count 72.5 % 37. 0 - 80.0 [facility] Lymphocytes/100 leukocytes in Blood by Manual count 17.7 % 25.0 - 40.0 L [facility] Monocytes/100 leukocytes in Blood by Automated count 7.6 % 3.0 - 8.0 [facility] Eosinophils/100 leukocytes in Blood by Automated count 1.6 % 0.0 - 7.0 [facility] Basophils/100 leukocytes in Blood by Automated count 0.3 % 0.0 - 2.0 [facility] %IG 0.3 % 0.0 - 0.0 H [facility] al %NRBC 0.0 % 0.0 - 0.[facility] [#/volume] in Blood by Automated count 8.34 10^3/uL 2.00 - 6.90 H [facility] Lymphocytes [#/volume] in Blood by Automated count 2.04 10^3/uL 0.60 - 3.40 [facility] Monocytes [#/volume] in Blood by Automated count 0.87 10^3/uL 0.00 - 0.90 [facility] Eosinophils [#/volume] in Blood by Automated count 0.18 10^3/uL 0.00 - 0.70 [facility] Basophils [#/volume] in Blood by Automated count 0.04 10^3/uL 0.00 - 0.20 [facility] #IG 0.04 10^3/uL 0.00 - 0.10 [facility] #NRBC 0.00 10^3/uL 0.00 - 0.00 [facility] MANUAL DIFF NOT INDICATED [facility] RBC MORPH NOT INDICATED [facility] ID Date Data Source [id number] 07/07/2019 02:40:00 PM EST [facility] Name Value Range Interpretation Code Description Data Shelly rce(s) Supporting Document(s) TROPONIN T 0.01 NG/ML 0.00 - 0.10 [facility] TROPONIN T0.1 ng/ml Recommended as the c linical threshold value forTroponin T. ID Date Data Source [id number] 07/07/2019 02:40:00 PM [facility] Name Value Range Interpretation Code Description Data Shelly rce(s) Supporting Document(s) C reactive protein [Mass/volume] in Serum or Plasma by High sensitivity method 1.00 MG/L 1.00 - 3.00 [facility] HS-CRP CUT-OFF: RELATIVE RISK: <1.0 mg/L Low 1.0 - 3.0 mg/L Average >3.0 mg/L High Optimally, the average of HS-CRP results repeated two weeks apart should be used for risk assessment. ID Date Data Source [id number] 07/07/2019 02:40:00 PM [facility] Name Value Range Interpretation Code Description Data Shelly rce(s) Supporting Document(s) Prothrombin time (PT) 12.5 SECONDS 11.0 - 15.5 [facility] INR in Platelet poor plasma by Coagulation assay 0.92 0.93 - 1. 23 L [facility] aPTT in Blood by Coagulation assay 27.1 SECONDS 24.8 - 36.7 [facility] \\BLDo\\INR INTERPRETATION\\BLDx\\ Therapeutic range for Coumadin and related oral anticoagulants. - International Normalized Ratio (INR): 2.0 - 3.0 for Venous Thrombosis, Pulmonary Embolus, Tissue heart valves, Acute PA Atrial Fibrillation, Valvular heart disease and recurrent [...] and other interferences. ID Date Data Source [id number] 07/07/2019 02:39:00 PM [facility] Name Value Range Interpretation Code Description Data Shelly rce(s) Supporting Document(s) Lactate [Moles/volume] in Serum or Plasma 3.0 MMOL/L 0.2 - 2.2 H [facility] ID Date Data Source [id number] 06/25/2019 12:00:00 AM [facility] [place] ([facility]) Name Value Range Interpretation Code Description Data Shelly rce(s) Supporting Document(s) Hemoglobin A1c/Hemoglobin.total in Blood 6.5 Abnormal (applies to non-numeric results) HbA1C [place] ([facility]) ID Date Data Source [id number] 06/25/2019 12:00:00 AM EST [place] ([facility]) Name Value Range Interpretation Code Description Data Shelly rce(s) Supporting Document(s) Glucose [Mass/volume] in Urine collected for unspecified duration 1 16 Normal Glucose [place] ([facility]) Procedure Social History Code Duration Value Status Description Data Source(s ) Smoking 07/20/2020 12:00:00 AM EST Former Smoker completed Former Smoker [facility] ([facility]) Smoking 07/16/2020 12:00:00 AM EST Patient is a former smoker completed Patient is a former smoker [place] ([facility], ) Alcohol intake 05/28/2020 12:00:00 AM EST Yes completed [facility] Cigarette pack-years 05/28/2020 12:00:00 AM EST UNK completed [facility] Cigarettes smoked current (pack per day) - Reported 05/28/20 12:00:00 AM EST UNK completed [facility] Smoking 05/28/2020 12:00:00 AM EST Former smoker completed Former smoker [facility] 04/12/2020 09:42:24 AM EDT Current some day smoker com pleted Current some day smoker [facility] Smoking 04/12/2020 09:42:00 AM EDT Current some day smoker com pleted Current some day smoker [facility] 04/11/2020 05:52:00 PM EDT Current every day smoker co mpleted Current every day smoker [facility] Smoking 04/11/2020 05:52:00 PM EDT Current every day smoker co mpleted Current every day smoker [facility] Vital Signs ID Date Data Source UNK Name Value Range Interpretation Code Description Data Source(s) Diastolic blood pressure 83 mm[Hg] 83 mm[Hg] eCW1 ([facility]) Systolic blood pressure 177 mm[Hg] 177 mm[Hg] e CW1 ([facility]) Body temperature 97.6 [degF] 97.6 [degF] eCW1 ( [facility]) Respiratory rate 22 /min 22 /min eCW1 ([facility]) Heart rate 86 /min 86 /min eCW1 ([facility]) Body mass index (BMI) [Ratio] 27.14 kg/m2 27.14 kg/m2 eCW1 ([facility]) Body height 71 [in_i] 71 [in_i] eCW1 ([facility]) Body weight 194.6 [lb_av] 194.6 [lb_av] eCW1 ([facility]) Body surface area Derived from formula 2.05 m2 2.05 m2 [facility] ([facility]) Body weight 84.823 kg 84.823 kg [facility] ([facility]) Constantia body weight 172 [lb_av] 172 [lb_av] [place] T ([facility]) Body mass index (BMI) [Ratio] 26.1 kg/m2 26.1 k g/m2 [facility] ([facility]) Body weight 187.00 [lb_av] 187.00 [lb_av] [facility] Body height 71 [in_i] 71 [in_i] [facility] ([facility]) 5'11" Oxygen saturation in Arterial blood by Pulse oximetry 96 % 96 % [facility] ([facility]) Room Air Heart rate 74 /min 74 /min [facility] ([facility]) Diastolic blood pressure 60 mm[Hg] 60 mm[Hg] [facility] ([facility]) Systolic blood pressure 120 mm[Hg] 120 mm[Hg] [facility] Body mass index (BMI) [Ratio] 26.5 kg/m2 26.5 k g/m2 [facility] ([facility]) Body weight 190.00 [lb_av] 190.00 [lb_av] [facility] Body height 71 [in_i] 71 [in_i] [facility] ([facility]) 5'11" Oxygen saturation in Arterial blood by Pulse oximetry 94 % 94 % [facility] ([facility]) Room Air Heart rate 90 /min 90 /min [facility] ([facility]) Diastolic blood pressure 72 mm[Hg] 72 mm[Hg] [facility] ([facility]) Systolic blood pressure 140 mm[Hg] 140 mm[Hg] [facility] ([facility]) Body surface area Derived from formula 2.06 m2 2.06 m2 [facility] ([facility]) Body weight 86.184 kg 86.184 kg [facility] ([facility]) Constantia body weight 172 [lb_av] 172 [lb_av] [facility] [facility] ([facility]) Body surface area Derived from formula 2.03 m2 2.03 m2 [facility] ([facility]) Body weight 82.555 kg 82.555 kg [facility] ([facility]) Constant[place] body weight 172 [lb_av] 172 [lb_av] [place] ([facility]) Body mass index (BMI) [Ratio] 25.4 kg/m2 25.4 k g/m2 [facility] ([facility]) Body weight 182.00 [lb_av] 182.00 [lb_av] [place] ([facility]) Body height 71 [in_i] 71 [in_i] [facility] ([facility]) " Oxygen saturation in Arterial blood by Pulse oximetry 93 % 93 % [facility] ([facility]) Room Air Heart rate 86 /min 86 /min [facility] ([facility]) Diastolic blood pressure 70 mm[Hg] 70 mm[Hg] [facility] ([facility]) Systolic blood pressure 130 mm[Hg] 130 mm[Hg] [facility] ([facility]) Body weight 88.452 kg 88.452 kg [facility] ([facility]) Body weight 195.00 [lb_av] 195.00 [lb_av] [place] [facility] ([facility]) Oxygen saturation in Arterial blood by Pulse oximetry 85 % 85 % [facility] ([facility], ) 88 ra Heart rate 71 /min 71 /min [facility] ([facility], ) Diastolic blood pressure 78 mm[Hg] 78 mm[Hg] [facility] ([facility], ) Systolic blood pressure 130 mm[Hg] 130 mm[Hg] [facility] Oxygen saturation in Arterial blood by Pulse oximetry 92 % 92 % [facility] Body mass index (BMI) [Ratio] 26.36 kg/m2 26.36 kg/m2 [facility] Body weight 85.73 kg 85.73 kg [facility] Body height 180.3 cm 180.3 cm [facility] Heart rate 96 /min 96 /min [facility] Diastolic blood pressure 94 mm[Hg] 94 mm[Hg] [facility] Systolic blood pressure 162 mm[Hg] 162 mm[Hg] [facility] Inhaled oxygen concentration 21 % 21 % [place] ([facility]) Inhaled oxygen flow rate 0 L/min 0 L/min [place] ([facility]) Oxygen saturation in Arterial blood by Pulse oximetry 92 % 92 % [place] ([facility]) Body surface area Derived from formula 2.06 m2 2.06 m2 [place] ([facility]) Body mass index (BMI) [Ratio] 26.5 kg/m2 26.5 k g/m2 [place] ([facility]) Body weight 190 [lb_av] 190 [lb_av] [place] ( [facility]) Body height 71 [in_i] 71 [in_i] [place] ([facility]) Body temperature 97.9 [degF] 97.9 [degF] [facility] ([facility]) Respiratory rate 24 /min 24 /min [place] ([facility]) Heart rate 68 /min 68 /min [place] [facility] Diastolic blood pressure 68 mm[Hg] 68 mm[Hg] [place] ([facility]) Systolic blood pressure 128 mm[Hg] 128 mm[Hg] [facility] ([facility]) Inhaled oxygen concentration 21 % 21 % [place] ([facility]) O2 with mask 84% without mask went to 95% Inhaled oxygen flow rate 0 L/min 0 L/min [place] ([facility]) O2 with mask 84% without mask went to 95% Oxygen saturation in Arterial blood by Pulse oximetry 84 % 84 % [place] ([facility]) O2 with mask 84% without mask went to 95% Body surface area Derived from formula 2.07 m2 2.07 m2 [place] ([facility]) O2 with mask 84% without mask went to 95% Body mass index (BMI) [Ratio] 26.6 kg/m2 26.6 k g/m2 [place] ([facility]) O2 with mask 84% without mask went to 95% Body weight 191 [lb_av] 191 [lb_av] [place] ([facility]) O2 with mask 84% without mask went to 95% Body height 71 [in_i] 71 [in_i] [place] ([facility]) O2 with mask 84% without mask went to 95% Body temperature 97.6 [degF] 97.6 [degF] [facility] ([facility]) O2 with mask 84% without mask went to 95% Respiratory rate 24 /min 24 /min [place] ([facility]) O2 with mask 84% without mask went to 95% Heart rate 91 /min 91 /min [place] ([facility]) O2 with mask 84% without mask went to 95% Diastolic blood pressure 82 mm[Hg] 82 mm[Hg] [place] ([facility]) O2 with mask 84% without mask went to 95% Systolic blood pressure 132 mm[Hg] 132 mm[Hg] [facility] ([facility]) O2 with mask 84% without mask went to 95% Inhaled oxygen concentration 21 % 21 % [place] ([facility]) Inhaled oxygen flow rate 0 L/min 0 L/min [place] ([facility]) Oxygen saturation in Arterial blood by Pulse oximetry 94 % 94 % [place] ([facility]) Body surface area Derived from formula 2.07 m2 2.07 m2 [place] ([facility]) Body mass index (BMI) [Ratio] 26.6 kg/m2 26.6 k g/m2 [place] ([facility]) Body weight 191 [lb_av] 191 [lb_av] [place] ([facility]) Body height 71 [in_i] 71 [in_i] [place] ([facility]) Body temperature 97.1 [degF] 97.1 [degF] [place] ([facility]) Respiratory rate 24 /min 24 /min [place] ([facility]) Heart rate 84 /min 84 /min [place] ([facility]) Diastolic blood pressure 86 mm[Hg] 86 mm[Hg] [place] ([facility]) Systolic blood pressure 134 mm[Hg] 134 mm[Hg] [facility] ([facility]) Inhaled oxygen concentration 21 % 21 % [place] ([facility]) Inhaled oxygen flow rate 0 L/min 0 L/min [place] ([facility]) Oxygen saturation in Arterial blood by Pulse oximetry 97 % 97 % [place] ([facility]) Body surface area Derived from formula 2.10 m2 2.10 m2 [place] ([facility]) Body mass index (BMI) [Ratio] 27.8 kg/m2 27.8 k g/m2 [place] ([facility]) Body weight 199 [lb_av] 199 [lb_av] [place] ([facility]) Body height 71 [in_i] 71 [in_i] [place] ([facility]) Body temperature 97.8 [degF] 97.8 [degF] [place] [facility] ([facility]) Respiratory rate 24 /min 24 /min [place] ([facility]) Heart rate 90 /min 90 /min [place] ([facility]) Diastolic blood pressure 78 mm[Hg] 78 mm[Hg] [place] ([facility]) Systolic blood pressure 134 mm[Hg] 134 mm[Hg] G [facility] ([facility]) Inhaled oxygen concentration 21 % 21 % [place] ([facility] Inhaled oxygen flow rate 0 L/min 0 L/min [place] ([facility]) Oxygen saturation in Arterial blood by Pulse oximetry 97 % 97 % [place] ([facility]) Body surface area Derived from formula 2.12 m2 2.12 m2 [place] ([facility]) Body mass index (BMI) [Ratio] 28.3 kg/m2 28.3 k g/m2 [place] ([facility]) Body weight 203 [lb_av] 203 [lb_av] [place] ([facility]) Body height 71 [in_i] 71 [in_i] [place] ([facility]) Body temperature 97.8 [degF] 97.8 [degF] [place] ([facility]) Respiratory rate 24 /min 24 /min [place] ([facility]) Heart rate 97 /min 97 /min [place] ([facility]) Diastolic blood pressure 76 mm[Hg] 76 mm[Hg] [place] ([facility]) Systolic blood pressure 132 mm[Hg] 132 mm[Hg] [facility]) Inhaled oxygen concentration 21 % 21 % [place] ([facility]) Inhaled oxygen flow rate 0 L/min 0 L/min [place] ([facility]) Oxygen saturation in Arterial blood by Pulse oximetry 98 % 98 % [place] ([facility]) Body surface area Derived from formula 2.07 m2 2.07 m2 [place] ([facility]) Body mass index (BMI) [Ratio] 26.6 kg/m2 26.6 k g/m2 [place] ([facility]) Body weight 191 [lb_av] 191 [lb_av] [place] ([facility]) Body height 71 [in_i] 71 [in_i] [place] ([facility]) Body temperature 97.8 [degF] 97.8 [degF] [place] [facility] ([facility]) Respiratory rate 24 /min 24 /min [place] ([facility]) Heart rate 86 /min 86 /min [place] ([facility]) Diastolic blood pressure 72 mm[Hg] 72 mm[Hg] [place] ([facility]) Systolic blood pressure 124 mm[Hg] 124 mm[Hg] [facility] ([facility]) Patient Treatment Plan of Care Planned Activity Planned Date Details Description Data Source (s) Albuterol 0.833 MG/ML / Ipratropium Molino 0.167 MG/M L Inhalant Solution 05/20/2020 12:00:00 AM [facility] Metformin hydrochloride 500 MG Oral Tablet 05/20/2020 12:00:00 AM E [facility] Metformin hydrochloride 500 MG Oral Tablet 05/20/2020 12:00:00 AM E [facility]) atorvastatin 20 MG Oral Tablet 05/20/2020 12:00:[address] [facility]) 60 ACTUAT Budesonide 0.16 MG/ACTUAT / fo rmoterol fumarate 0.0045 MG/ACTUAT Metered Dose Inhaler [Symbicort] 05/20/2020 12:00:[address] [facility]) 200 ACTUAT Albuterol 0.09 MG/ACTUAT Metered Dose Inhal er [ProAir] 05/20/2020 12:00:00 AM [facility] ([facility]) Lisinopril 5 MG Oral Tablet 05/20/2020 12:00:[address] [facility]) Triamcinolone Acetonide 1 MG/ML Topical Lotion 05/20/2020 12:00:[address] [facility]) Lancets Ultra Fine Miscellaneous 05/20/2020 12:00:[address] [facility]) IGlucose Test Strips In Vitro 05/20/2020 12:00:[address] [facility]) Lisinopril 5 MG Oral Tablet 05/19/2020 12:00:00 AM [facility] Lisinopril 5 MG Oral Tablet 05/17/2020 12:00:[address] [facility]) Prednisone 10 MG Oral Tablet 05/07/2020 12:00:[address] [facility]) doxycycline hyclate 100 MG Oral Capsule 05/06/2020 12:00:[address] [facility]) 60 ACTUAT Budesonide 0.16 MG/ACTUAT / fo rmoterol fumarate 0.0045 MG/ACTUAT Metered Dose Inhaler [Symbicort] 04/22/2020 12:00:[address] [facility]) atorvastatin 20 MG Oral Tablet 04/22/2020 12:00:[address] [facility]) Metformin hydrochloride 500 MG Oral Tablet 04/22/2020 12:00:00 AM E [facility] ([facility]) Lisinopril 5 MG Oral Tablet 04/22/2020 12:00:[address] [facility]) 200 ACTUAT Albuterol 0.09 MG/ACTUAT Metered Dose Inhal er [ProAir] 04/22/2020 12:00:00 AM [facility]) 60 ACTUAT Budesonide 0.16 MG/ACTUAT / fo rmoterol fumarate 0.0045 MG/ACTUAT Metered Dose Inhaler [Symbicort] [facility] Oral Tablet 11/20/2019 12:00:00 AM [facility]) 200 ACTUAT Albuterol 0.09 MG/ACTUAT Metered Dose Inhal er [ProAir] 10/24/2019 12:00:00 AM [facility] ([facility]) atorvastatin 20 MG Oral Tablet 08/20/2019 12:00:[address] [facility]) IGlucose Test Strips In Vitro 08/20/2019 12:00:[address] [facility]) Lancets Ultra Fine Miscellaneous 08/20/2019 12:00:00 AM [facility] ([facility]) Metformin hydrochloride 500 MG Oral Tablet 08/20/2019 12:00:00 AM E [facility] ([facility]) 60 ACTUAT Budesonide 0.16 MG/ACTUAT / fo rmoterol fumarate 0.0045 MG/ACTUAT Metered Dose Inhaler [Symbicort] 08/20/2019 12:00:[address] [facility]) 200 ACTUAT Albuterol 0.09 MG/ACTUAT Metered Dose Inhal er [ProAir] 08/20/2019 12:00:00 AM [facility] ([facility]) Triamcinolone Acetonide 1 MG/ML Topical Lotion 08/20/2019 12:00:[address] [facility]) Lisinopril 5 MG Oral Tablet 08/20/2019 12:00:[address] [facility]) 5000 MG Testosterone 0.01 MG/MG Topical Gel [Androgel] 08/20/2019 12:00:00 AM [facility]) atorvastatin 20 MG Oral Tablet 06/25/2019 12:00:[address] [facility]) Metformin hydrochloride 500 MG Oral Tablet 06/25/2019 12:00:00 AM E [facility]) IGlucose Test Strips In Vitro 06/25/2019 12:00:[address] [facility]) Lancets Ultra Fine Miscellaneous 06/25/2019 12:00:[address] [facility]) 60 ACTUAT Budesonide 0.16 MG/ACTUAT / fo rmoterol fumarate 0.0045 MG/ACTUAT Metered Dose Inhaler [Symbicort] 06/25/2019 12:00:[address] [facility]) Metformin hydrochloride 500 MG Oral Tablet 05/30/2019 12:00:[address] [facility] ([facility]) IGlucose Test Strips In Vitro 01/24/2019 12:00:00 AM [facility]) Lancets Ultra Fine Miscellaneous 01/24/2019 12:00:00 AM [facility] ([facility]) Triamcinolone Acetonide 1 MG/ML Topical Lotion 01/24/2019 12:00:00 AM [facility] ([facility]) atorvastatin 20 MG Oral Tablet 01/24/2019 12:00:00 AM [facility] [place] ([facility]) 30 ACTUAT fluticasone furoate 0.1 MG/ACT UAT / vilanterol 0.025 MG/ACTUAT Dry Powder Inhaler [Breo] 01/24/2019 12:00:00 AM [facility] ([facility]) 200 ACTUAT Albuterol 0.09 MG/ACTUAT Metered Dose Inhal er [ProAir] 01/24/2019 12:00:00 AM [facility] [place] [place] ([facility]) pantoprazole 40 MG Delayed Release Oral Tablet 04/16/2016 12:00:00 AM EDT [facility] atorvastatin 40 MG Oral Tablet 10/10/2014 12:00:00 AM EDT [facility] 200 ACTUAT Levalbuterol 0.045 MG/ACTUAT Metered Dose I nhaler [Xopenex] 04/23/2014 12:00:00 AM EST [facility] Cholecalciferol 2000 UNT Oral Capsule [facility] Nitroglycerin 0.4 MG Sublingual Tablet [facility] DAILY DIONNE (THERAGRAN) per tablet [facility] ALBUTEROL IN [facility] 24 HR metoprolol succinate 25 MG Extended Release Oral Tablet [facility] Aspirin 325 MG Oral Tablet [facility]
[2020-08-02] MEDS ORDERED: SODIUM CHLORIDE 0.9% INJ 10 ML SYR IV PRN (10:15)
[2020-08-02 10:28] LABS: HEMATOCRIT 39.8 % (42.0-52.0); HEMOGLOBIN 12.8 g/dl (13.5-17.5); MEAN CORPUSCULAR HEMOGLOBIN 29.1 pg (27.0-33.0); MEAN CORPUSCULAR HGB CONC 32.2 g/dl (32.0-36.5); MEAN CORPUSCULAR VOLUME 90.5 fl (80.0-96.0); PLATELET COUNT, AUTOMATED 321 10^3/uL (150-450); WHITE BLOOD COUNT 6.6 10^3/uL (4.0-10.0)
--- OUTSIDE RECORDS SUMMARY | 2020-08-02 10:33 | CCD ---
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 Care Adjunct Art History Instructor Name Role Phone Susan Talamantes MD Unavailable [...] Unavailable Vinita, Susan Balbuena MD Unavailable Unavailable VniitaSusan MD Unavailable Unavailable VinitaSusan MD Unavailable Unavailable [...] Unavailable Unavailable SleJulio wood MD Unavailable Unavailable SleJulio wood MD Unavailable Unavailable SleJulio wood MD Unavailable Unavailable SleJulio wood MD Unavailable Unavailable SleTonio woodjtech Unavailable Unavailable SleTonio woodjcristiana GONCALVES Unavailable Unavailable SleTonio woodjcristiana GONCALVES Unavailable Unavailable SleTonio woodjcristiana GONCALVES Unavailable Unavailable SleTonio woodjcristiana GONCALVES Unavailable Unavailable SlezkaToniojtech Unavailable Unavailable SlezTonio freedjtech Unavailable Unavailable Slezka Vojtech Unavailable Unavailable SleheatherkaToniojtech Unavailable Unavailable SleTonio woodjtech Unavailable Unavailable Slezka, Julio GONCALVES Unavailable Unavailable Sleisrael Vojtech MD Unavailable Unavailable Julio Reyes MD Unavailable Unavailable Julio Reyes MD Unavailable Unavailable Julio Reyes MD Unavailable Unavailable Julio Reyes MD Unavailable Unavailable Julio Reyes MD Unavailable Unavailable Julio Reyes MD Unavailable Unavailable Julio Reyes MD Unavailable Unavailable Julio Reyes MD Unavailable Unavailable Julio Reyes MD Unavailable Unavailable Julio Reyes MD Unavailable Unavailable Juloi Reyes MD Unavailable Unavailable Julio Reyes MD [...] HONORIO DE SOUZA MD Unavailable Unavailable HONORIO DES OUZA MD Unavailable Unavailable Isaias Amaro MD Unavailable [...] is protected by Article 27-F of the [facility] Public Health law. If you continue you may have access to information: Regarding HIV / AIDS; Provided by facilities licensed or operated by the [facility] Office of Mental Health; or Provided by the [facility] Office for People With Developmental Disabilities. If such information is present, then the following [facility] mandated warning applies: This information [...] ) Food allergy shellfish derived shellfish derived [facility] Family History Family Member Name Family Member Gender Family Member Status Date o f Status Description Data Source(s) Unknown Male Problem [facility] ([facility]) Unknown Male Problem [facility] ([facility]) Encounters Encounter Providers Location Date Indications Data Source(s ) Out[place] [address] [facility] [id number] 07/20/2020 12:00:00 AM EST eCW1 ([facility]) Outpatient Attender: Lizett Nixon/[place]/Re indl 06/22/2020 09:15:00 AM EST [facility] ([facility] Outpatient Attender: Lizett Nixon/[place] 06/14/2020 12:23:00 AM EST [facility] ([facility] Outpatient Attender: Lizett Nixon/[place] ind[facility] 06/13/2020 12:23:00 AM EST [facility] ([facility] Outpatient Attender: Lizett [place] 06/12/2020 12:23:00 AM EST [facility] ([facility]) Outpatient Referrer: Bethany Felix MD 06/11/2020 09:36:00 AM EST Pleural effusion, not elsewhere classified [facility] Pleural effusion, not elsewhere classifi ed Outpatient Attender: Lizett Nixon/[place]/Re indl 06/10/2020 12:23:00 AM EST [facility] ([facility] Outpatient Attender: Lizett Nixon/[place]/Re ind[facility] 06/09/2020 12:23:00 AM EST [facility] ([facility]) Outpatient Attender: Lizett [place]/Re indl 06/08/2020 12:23:00 AM EST [facility] ([facility]) Outpatient Admitter: Bethany Felix MDReferrer: Bethany Felix MD 06/08/2020 12:00:00 AM EST Secondary malignant neoplasm of unspecified site [facility] Secondary malignant neoplasm of unspecif ied site Outpatient Attender: Kike Nixon/[place]/R eindl 06/01/2020 09:00:00 AM EST [facility] ([facility] Outpatient Attender: Julio Reyes MDReferrer: Stevan [email or web address] 05/28/2020 12:00:00 AM EST - 05/28/2020 10:45:33 AM EST [facility] Outpatient<td ID="encounterTypeDescripti onID0">STANDARD OV</td><td>Esha Talamantes MD</td><td>St. [...] (Epigastric)Working Diagnosis of Abdominal Pain [place] ([facility]) Hypoxia Chest Pain Working Diagnosis of Abdominal Pain in t he [place] (Epigastric) Working Diagnosis of Abdominal Pain Outpatient Attender: Esha Talamantes MDConsultant: Esha branch MD 05/07/2020 09:30:00 AM EST - 05/07/2020 10:30:[address] [facility] Outpatient<td ID="encounterTypeDescripti onID1">STANDARD OV</td><td>Esha Talamantes MD</td><td>[facility]</td><td>05/07/2020</td><td>8:07AM</td><td>9:08AM</td><td><content ID="encounterDiagnosisID1-0">Acute Infective Exacerbation of Chronic Obstructive Airways Disease</content>, <content ID="encounterDiagnosisID1-1">Nicotine Dependence Uncomplicated</content>, <content ID="encounterDiagnosisID1- 2">Atypical Chest Pain</content></td> Attender: Esha Talamantes MD [facility], 05/07/2020 08:07:00 AM EST - 05/07/2020 09:08:00 AM ES T Atypical Chest PainNicotine Dependence UncomplicatedAcute Infective Exacerbation of Chronic Obstructive Airways DiseaseAtypical Chest PainNicotine Dependence UncomplicatedAcute Infective Exacerbation of Chronic Obstructive Airways Disease Atypical Chest PainNicotine Dependence UncomplicatedAcute Infective Exacerbation of Chronic Obstructive Airways Disease [place] ([facility]) Atypical Chest Pain Nicotine Dependence Uncomplicated Acute Infective Exacerbation of Chronic Obstructive Airways Disease Atypical Chest Pain Nicotine Dependence Uncomplicated Acute Infective Exacerbation of Chronic Obstructive Airways Disease Atypical Chest Pain Nicotine Dependence Uncomplicated Acute Infective Exacerbation of Chronic Obstructive Airways Disease Outpatient Attender: Esha Talamantes MDConsultant: Esha branch MD 04/30/2020 08:24:00 AM EST - 04/30/2020 09:24:00 AM EST [facility] Outpatient<td ID="encounterTypeDescripti onID2">HOSP I/P F/U</td><td>Esha Talamantes MD</td><td>[facility],</td><td>04/22/2020</td><td>10:05AM</td><td>11:03AM</td><td><content ID="encounterDiagnosisID2-0">Vitreous Floaters Right Eye</content>, <content ID="encounterDiagnosisID2-1">Chronic Obstructive Pulmonary Disease</content>, <content ID="encounterDiagnosisID2-2">Essential Hypertension Benign</content>, <content ID="encounterDiagnosisID2-3">Hyperlipidemia</content>, <content ID="encounterDiagnosisID2-4">Diabetes Mellitus Type 2 in Obese</content>, <content ID="encounterDiagnosisID2-5">Lung Mass</content>, <content ID="encounterDiagnosisID2-6">Fatigue</content></td> Attender: Esha Talamantes MD [facility], 04/22/2020 10:05:00 AM EST - [...] Obstructive Pulmonary DiseaseHyperlipidemiaChronic Obstructive Pulmonary Disease [place] ([facility]) Fatigue Lung Mass Diabetes Mellitus Type 2 [...] 04/12/2020 11:42:00 AM EDT CHEST PAIN,COPD EXACERBATION [facility] CHEST PAIN,COPD EXACERBATION Patient discharged. Outpatient<td ID="encounterTypeDescripti onID3">RX UPDATE</td><td>[facility]td[facility]td><td>11/20/2019</td><td>08/20/2019 11:10AM</td><td>08/20/2019 11:59PM</td><td></td> Attender: [facility] 08/20/2019 11:10:00 AM EST - 08/20/2019 11:59:00 PM [facility] ([facility]) Outpatient<td ID="encounterTypeDescripti onID4">ANNUAL PHYSICAL EXAM</td><td>Esha Talamantes MD</td><td[facility]</td><td>08/20/2019</td><td>8:13AM</td><td>9:35AM</td><td><content ID="encounterDiagnosisID4-0">Fatigue</content>, <content ID="encounterDiagnosisID4-1">Hypogonadism</content>, <content ID="encounterDiagnosisID4-2">Hyperlipidemia</content>, <content ID="encounterDiagnosisID4-3">Benign Prostatic Hypertrophy</content>, <content ID="encounterDiagnosisID4-4">Diabetes Mellitus Type 2 in Nonobese</content>, <content ID="encounterDiagnosisID4-5">Routine History & Physical Senior Citizen with Abnormal Findings</content></td> Attender: Esha Talamantes MD [facility], 08/20/2019 08:13:00 AM EST - [...] NonobeseBenign Prostatic HypertrophyHypogonadismFatigue HyperlipidemiaHyperlipidemiaHyperlipidemiaHyperlipidemiaHyperlipidemiaHyperlipid noe [place] ([facility]) Routine History & Physical Senior Citize n [...] 07:43:00 AM EST - 08/12/2019 08:43:[address] [facility] Outpatient<td ID="encounterTypeDescripti onID5">STANDARD OV</td><td>Esha Talamantes MD</td><td>St. 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 Outpatient<td ID="encounterTypeDescripti onID6">STANDARD OV</td><td>Esha Talamantes MD</td><td>[facility],</td><td>06/25/2019</td><td>10:55AM</td><td>11:58AM</td><td><content ID="encounterDiagnosisID6-0">Chronic Obstructive Pulmonary Disease</content>, <content ID="encounterDiagnosisID6-1">Hyperlipidemia</content>, <content ID="encounterDiagnosisID6-2">Diabetes Mellitus Type 2</content>, <content ID="encounterDiagnosisID6-3">Obesity</content>, <content ID="encounterDiagnosisID6-4">Diabetes Mellitus Type 2 with Coma</content>, <content ID="encounterDiagnosisID6-5">Hypogonadism</content></td> Attender: Esha Talamantes MD [facility], 06/25/2019 10:55:00 AM EST - [...] Obstructive Pulmonary DiseaseHyperlipidemiaChronic Obstructive Pulmonary Disease [place] ([facility]) Hypogonadism Diabetes Mellitus Type 2 with Coma [...] 08/07/2019 Complete (Ref used - Patient objection) [facility] MEDICINE [facility] Medications Medication Brand Name Start Date [...] 1 TWICE A DAY THEREAFTER SOLD: 06/14/2020 [facility] pantoprazole 40 MG Delayed Release Oral Tablet PANTOPRAZOLE SODIUM 06/14/2020 12:00:00 AM EST tablet,delayed release (DR/EC) 30 T CARY ONE TABLET BY MOUTH EVERY DAY TAKE ONE TABLET BY MOUTH EVERY DAY SOLD: 06/14/2020 [facility] 100 mg 06/14/2020 12:00:00 AM EST capsule 60 TAKE ONE CAPSULE BY MOUTH TWICE A DAY TAKE ONE CAPSULE BY MOUTH TWICE A DAY SOLD: 06/14/2020 [facility] 7 ACTUAT umeclidinium 0.0625 MG/ACTUAT Dry Powder Inha ler [Incruse] Incruse Ellipta 06/01/2020 12:00:00 AM EST RESPIRATORY active [facility] ([facility], ) Prednisone 10 MG Oral Tablet Prednisone 06/01/2020 12:00:00 AM EST ORAL completed [facility] ([facility], ) Metformin hydrochloride 500 MG Oral Tablet metFORMIN ( GLUCOPHAGE) 500 MG tablet metFORMIN (GLUCOPHAGE) 500 MG tablet 05/20/2020 12:00:00 AM EST 1 { tbl} Oral active Take 1 tablet by mouth 2 (two) times a day [facility] Lancets Ultra Fine Miscellaneous Lancets Ultra Fine Miscella neous 05/20/2020 12:00:00 AM EST active Lancets Ultra Fine [place] ([facility]) IGlucose Test Strips In Vitro IGlucose Test Strips In Vitro 05/20/2020 12:00:00 AM EST active IGlucose Test Str ips [place] ([facility]) Albuterol 0.833 MG/ML / Ipratropium Brom delmer 0.167 MG/ML Inhalant Solution ipratropium-albuterol (DUO-NEB) 0.5-2.5 mg/mL nebulizer ipratropium-albuterol (DUO-NEB) 0.5-2.5 mg/mL nebulizer 05/20/2020 12:00:00 AM EST active INHALE 1 VIAL VIA NEB QID PRN [facility] Triamcinolone Acetonide 1 MG/ML Topical Lotion Triamcinolone Acetonide 0.1% External Lotion Triamcinolone Acetonide 0.1% External Lotion 0 12:00:00 AM EST active triamcinolone ac etonide 1 MG/ML Topical Lotion [facility]) atorvastatin 20 MG Oral Tablet Atorvastatin Calcium 20 MG Oral Tablet Atorvastatin Calcium 20 MG Oral Tablet 05/20/2020 12:00:00 AM EST 1 active [facility]atin [facility] MG [facility] Metformin hydrochloride 500 MG Oral Tablet metFORMIN H Cl 500 MG Oral Tablet metFORMIN HCl 500 MG Oral Tablet 05/20/2020 12:00:00 AM EST active metformin hydrochloride 500 MG Oral Tablet [place] ([facility]) 60 ACTUAT Budesonide 0.16 MG/ACTUAT / fo rmoterol fumarate 0.0045 MG/ACTUAT Metered Dose Inhaler [Symbicort] Symbicort 160-4.5 MCG/ACT Inhalation Aerosol Symbicort 160-4.5 MCG/ACT Inhalation Aerosol 05/20/2020 12:00:00 AM EST active 60 ACTUAT budeso nide 0.16 MG/ACTUAT / formoterol fumarate 0.0045 MG/ACTUAT Metered Dose Inhaler [Symbicort] [place] ([facility]) 200 ACTUAT Albuterol 0.09 MG/ACTUAT Mete red Dose Inhaler [ProAir] ProAir HFA 108 (90 Base) MCG/ACT Inhalation Aerosol Solution ProAir HFA 108 (90 Base) MCG/ACT Inhalation Aerosol Solution 05/20/2020 12:00:00 AM EST 18 active [id number] 200 ACTUAT albuterol 0.09 MG/ACTUAT Metered Dose Inhaler [ProAir] [place] ([facility]) Lisinopril 5 MG Oral Tablet Lisinopril 5 MG Oral Tablet 07/2019 12:00:00 AM EST active lisinopril 5 MG O ral Tablet [place] ([facility]) Lisinopril 5 MG Oral Tablet lisinopril (PRINIVIL,ZESTR IL) 5 MG tablet lisinopril (PRINIVIL,ZESTRIL) 5 MG tablet 05/19/2020 12:00:00 AM EST 1 {tbl} O ral active Take 1 tablet by mouth daily [facility] Lisinopril 5 MG Oral Tablet Lisinopril 5 MG Oral Tablet 04/20 12:00:00 AM EST aborted lisinopril 5 MG Oral Tablet [place] ([facility]) Prednisone 10 MG Oral Tablet predniSONE 10 MG Oral Tab let predniSONE 10 MG Oral Tablet 05/07/2020 12:00:00 AM EST aborted prednisone 10 MG Oral Tablet [place] ([facility]) doxycycline hyclate 100 MG Oral Capsule Doxycycline Hy clate 100 MG Oral Capsule Doxycycline Hyclate 100 MG Oral Capsule 05/06/2020 12:00:00 AM EST active doxycycline hyclate 100 MG Oral Capsule [facility]) 60 ACTUAT Budesonide 0.16 MG/ACTUAT / fo rmoterol fumarate 0.0045 MG/ACTUAT Metered Dose Inhaler [Symbicort] Symbicort 160-4.5 MCG/ACT Inhalation Aerosol Symbicort 160-4.5 MCG/ACT Inhalation Aerosol 04/22/2020 12:00:00 AM EST aborted 60 ACTUAT budeso nide 0.16 MG/ACTUAT / formoterol fumarate 0.0045 MG/ACTUAT Metered Dose Inhaler [Symbicort] [place] ([facility]) 200 ACTUAT Albuterol 0.09 MG/ACTUAT Mete red Dose Inhaler [ProAir] ProAir HFA 108 (90 Base) MCG/ACT Inhalation Aerosol Solution ProAir HFA 108 (90 Base) MCG/ACT Inhalation Aerosol Solution 04/22/2020 12:00:00 AM EST 18 aborted [id number] 200 ACTUAT albuterol 0.09 MG/ACTUAT Metered Dose Inhaler [ProAir] [place] ([facility]) Metformin hydrochloride 500 MG Oral Tablet metFORMIN H Cl 500 MG Oral Tablet metFORMIN HCl 500 MG Oral Tablet 04/22/2020 12:00:00 AM EST aborted metformin hydrochloride 500 MG Oral Tablet [place] ([facility]) atorvastatin 20 MG Oral Tablet Atorvastatin Calcium 20 MG Oral Tablet Atorvastatin Calcium 20 MG Oral Tablet 04/22/2020 12:00:00 AM EST 1 aborted atorvastatin 20 MG Oral Tablet [facility]) Lisinopril 5 MG Oral Tablet Lisinopril 5 MG Oral Tablet 09/2019 12:00:00 AM EST 1 aborted lisinopril 5 MG Oral Tablet [place] ([facility]) Dextromethorphan Hydrobromide 2 MG/ML / Guaifenesin 20 MG/ML Oral Solution Dextromethorphan-Guaifenesin Dextromethorphan-Guaifenesin 04/12/2020 10:03:10 AM EDT 10 ML active [facility] Albuterol 0.833 MG/ML / Ipratropium Brom delmer 0.167 MG/ML Inhalant Solution Ipratropium-Albuterol Ipratropium-Albuterol 04/12/2020 10:02:36 AM EDT 3 ML active [facility] Prednisone 20 MG Oral Tablet Prednisone 04/12/2020 10:01:33 AM EDT 40 MG active [facility] Azithromycin 500 MG Oral Tablet Azithromycin 04/12/2020 10:00:43 AM EDT 500 MG active [facility] atorvastatin 20 MG Oral Tablet Atorvastatin Atorvastatin 04/11/2020 09:16:15 PM EDT 20 MG active [facility] Wjmerxhtrben-Xewwzvpy-Mclmfj (Centrum Silver) Tablet 04/11/2020 09:16:15 PM EDT 1 TAB active [facility] atorvastatin 20 MG Oral Tablet Atorvastatin Atorvastatin 04/11/2020 09:16:15 PM EDT 20 MG active [facility] Metformin hydrochloride 500 MG Oral Tablet Metformin 04/11 09:16:15 PM EDT 500 MG active [facility] Aspirin 04/11/2020 09:16:15 PM EDT 81 MG active [facility] Aspirin 04/11/2020 09:16:15 PM EDT 81 MG active [facility] 120 ACTUAT Budesonide 0.16 MG/ACTUAT / f ormoterol fumarate 0.0045 MG/ACTUAT Metered Dose Inhaler Budesonide-Formoterol (Symbicort) 160-4.5 mcg/actuation HFA aerosol inhaler Budesonide-Formoterol (Symbicort) 160-4. 5 mcg/actuation HFA aerosol inhaler 04/11/2020 09:16:15 PM EDT 2 PUFFS activ e [facility] Metformin hydrochloride 500 MG Oral Tablet Metformin 04/11 09:16:15 PM EDT 500 MG active [facility] 120 ACTUAT Budesonide 0.16 MG/ACTUAT / f ormoterol fumarate 0.0045 MG/ACTUAT Metered Dose Inhaler Budesonide-Formoterol (Symbicort) 160-4.5 mcg/actuation HFA aerosol inhaler Budesonide-Formoterol (Symbicort) 160-4. 5 mcg/actuation HFA aerosol inhaler 04/11/2020 09:16:15 PM EDT 2 PUFFS activ e [facility] Albuterol Sulfate (Proair Hfa) 90 mcg/actuation HFA aerosol inhaler 04/11/2020 09:16:15 PM EDT 2 PUFFS active [facility] Welamlzxsurz-Ddflidgu-Qziltr 04/11/2020 09:16:15 PM EDT 1 T AB active [facility] Albuterol Sulfate (Proair Hfa) 90 mcg/actuation HFA aerosol inhaler 04/11/2020 09:16:15 PM EDT 2 PUFFS active [facility] 60 ACTUAT Budesonide 0.16 MG/ACTUAT / fo rmoterol fumarate 0.0045 MG/ACTUAT Metered Dose Inhaler [Symbicort] Symbicort 160-4.5 MCG/ACT Inhalation Aerosol Symbicort 160-4.5 MCG/ACT Inhalation Aerosol 11/20/2019 12:00:00 AM EDT aborted 60 ACTUAT budeso nide 0.16 MG/ACTUAT / formoterol fumarate 0.0045 MG/ACTUAT Metered Dose Inhaler [Symbicort] [place] ([facility]) Lisinopril 5 MG Oral Tablet Lisinopril 5 MG Oral Tablet 08/2019 12:00:00 AM EDT 1 aborted lisinopril 5 MG Oral Tablet [facility]) 200 ACTUAT Albuterol 0.09 MG/ACTUAT Mete red Dose Inhaler [ProAir] ProAir HFA 108 (90 Base) MCG/ACT Inhalation Aerosol Solution ProAir HFA 108 (90 Base) MCG/ACT Inhalation Aerosol Solution 10/24/2019 12:00:00 AM EDT 18 aborted [id number] 200 ACTUAT albuterol 0.09 MG/ACTUAT Metered Dose Inhaler [ProAir] [facility]) Lisinopril 5 MG Oral Tablet Lisinopril 5 MG Oral Tablet 08/2019 12:00:00 AM EST 1 aborted lisinopril 5 MG Oral Tablet [place] ([facility]) Triamcinolone Acetonide 1 MG/ML Topical Lotion Triamcinolone Acetonide 0.1% External Lotion Triamcinolone Acetonide 0.1% External Lotion 0 12:00:00 AM EST aborted triamcinolone a cetonide 1 MG/ML Topical Lotion [place] ([facility]) 200 ACTUAT Albuterol 0.09 MG/ACTUAT Mete red Dose Inhaler [ProAir] ProAir HFA 108 (90 Base) MCG/ACT Inhalation Aerosol Solution ProAir HFA 108 (90 Base) MCG/ACT Inhalation Aerosol Solution 08/20/2019 12:00:00 AM EST 18 aborted [id number] 200 ACTUAT albuterol 0.09 MG/ACTUAT Metered Dose Inhaler [ProAir] [facility]) 5000 MG Testosterone 0.01 MG/MG Topical Gel [Androgel] AndroGel 50 MG/5GM (1%) Transdermal AndroGel 50 MG/5GM (1%) Transdermal 08/20/2019 12:00:00 AM EST aborted 5000 MG testosterone 0.01 MG/MG Topical Gel [Androgel] [place] ([facility]) IGlucose Test Strips In Vitro IGlucose Test Strips In Vitro 08/20/2019 12:00:00 AM EST [facility] atorvastatin 20 MG Oral Tablet Atorvastatin Calcium 20 MG Oral Tablet Atorvastatin Calcium 20 MG Oral Tablet 08/20/2019 12:00:00 AM EST 1 aborted atorvastatin 20 MG Oral Tablet [facility]) 60 ACTUAT Budesonide 0.16 MG/ACTUAT / fo rmoterol fumarate 0.0045 MG/ACTUAT Metered Dose Inhaler [Symbicort] Symbicort 160-4.5 MCG/ACT Inhalation Aerosol Symbicort 160-4.5 MCG/ACT Inhalation Aerosol 08/20/2019 12:00:00 AM EST aborted 60 ACTUAT budeso nide 0.16 MG/ACTUAT / formoterol fumarate 0.0045 MG/ACTUAT Metered Dose Inhaler [Symbicort] [place] ([facility]) Lancets Ultra Fine Miscellaneous Lancets Ultra Fine Miscella neous 08/20/2019 12:00:00 AM EST aborted Lancets Ultra Fine [place] ([facility]) Metformin hydrochloride 500 MG Oral Tablet metFORMIN H Cl 500 MG Oral Tablet metFORMIN HCl 500 MG Oral Tablet 08/20/2019 12:00:00 AM EST aborted metformin hydrochloride 500 MG Oral Tablet [place] ([facility]) Lancets Ultra Fine Miscellaneous Lancets Ultra Fine Miscella neous 06/25/2019 12:00:00 AM EST aborted Lancets Ultra Fine [place] ([facility]) IGlucose Test Strips In Vitro IGlucose Test Strips In Vitro 06/25/2019 12:00:00 AM EST ab[facility] Metformin hydrochloride 500 MG Oral Tablet metFORMIN H Cl 500 MG Oral Tablet metFORMIN HCl 500 MG Oral Tablet 06/25/2019 12:00:00 AM EST aborted metformin hydrochloride 500 MG Oral Tablet [place] ([facility]) atorvastatin 20 MG Oral Tablet Atorvastatin Calcium 20 MG Oral Tablet Atorvastatin Calcium 20 MG Oral Tablet 06/25/2019 12:00:00 AM EST 1 aborted atorvastatin 20 MG Oral Tablet [facility]) 60 ACTUAT Budesonide 0.16 MG/ACTUAT / fo rmoterol fumarate 0.0045 MG/ACTUAT Metered Dose Inhaler [Symbicort] Symbicort 160-4.5 MCG/ACT Inhalation Aerosol Symbicort 160-4.5 MCG/ACT Inhalation Aerosol 06/25/2019 12:00:00 AM EST aborted 60 ACTUAT budeso nide 0.16 MG/ACTUAT / formoterol fumarate 0.0045 MG/ACTUAT Metered Dose Inhaler [Symbicort] [place] ([facility]) Metformin hydrochloride 500 MG Oral Tablet metFORMIN H Cl 500 MG Oral Tablet metFORMIN HCl 500 MG Oral Tablet 05/30/2019 12:00:00 AM EST aborted metformin hydrochloride 500 MG Oral Tablet [place] ([facility]) 200 ACTUAT Albuterol 0.09 MG/ACTUAT Mete red Dose Inhaler [ProAir] ProAir HFA 108 (90 Base)MCG/ACT Inhalation Aerosol Solution ProAir HFA 108 (90 Base)MCG/ACT Inhalation Aerosol Solution 01/24/2019 12:00:00 AM EDT 18 aborted [id number] 200 ACTUAT albuterol 0.09 MG/ACTUAT Metered Dose Inhaler [ProAir] [place] ([facility]) IGlucose Test Strips In Vitro IGlucose Test Strips In Vitro 01/24/2019 12:00:00 AM EDT aborted IGlucose Test St rips [place] ([facility]) Triamcinolone Acetonide 1 MG/ML Topical Lotion Triamcinolone Acetonide 0.1% External Lotion Triamcinolone Acetonide 0.1% External Lotion 12:00:00 AM EDT aborted triamcinolone a cetonide 1 MG/ML Topical Lotion [place] ([facility]) Lancets Ultra Fine Miscellaneous Lancets Ultra Fine Miscella neous 01/24/2019 12:00:00 AM EDT aborted Lancets Ultra Fine [place] ([facility]) 30 ACTUAT fluticasone furoate 0.1 MG/ACT UAT / vilanterol 0.025 MG/ACTUAT Dry Powder Inhaler [Breo] Breo Ellipta 100-25MCG/INH Inhalation Aerosol Powder Bre[place] Activated Breo Ellipta 100-25MCG/INH Inhalation Ae rosol Powder [place] Activated 01/24/2019 12:00:00 AM EDT aborted 30 ACTUAT fluticasone furoate 0.1 MG/ACTUAT / vilanterol 0.025 MG/ACTUAT Dry Powder Inhaler [Breo] [place] ([facility]) atorvastatin 20 MG Oral Tablet Atorvastatin Calcium 20 MG Oral Tablet Atorvastatin Calcium 20MG Oral Tablet 01/24/2019 12:00:00 AM EDT 1 aborted atorvastatin 20 MG Oral Tablet [facility] pantoprazole 40 MG Delayed Release Oral Tablet pantoprazole (PROTONIX) 40 MG tablet pantoprazole (PROTONIX) 40 MG tablet 04/16/2016 12:00:00 AM EDT aborted [facility] atorvastatin 40 MG Oral Tablet atorvastatin (LIPITOR) 40 MG tablet atorvastatin (LIPITOR) 40 MG tablet 10/10/2014 12:00:00 AM EDT aborted [facility] 200 ACTUAT Levalbuterol 0.045 MG/ACTUAT Metered Dose Inhaler [Xopenex] XOPENEX HFA 45 MCG/ACT inhaler XOPENEX HFA 45 MCG/ACT inhaler 04/23/2014 12:00:00 AM EST aborted [facility] ALBUTEROL IN aborted prn [facility] Nitroglycerin 0.4 MG Sublingual Tablet n itroglycerin (NITROSTAT) 0.4 MG SL tablet nitroglycerin (NITROSTAT) 0.4 MG SL tablet aborted sl prn cp-take up to 3 tabs 5 minutes apart to resolve cp [facility] DAILY DIONNE (THERAGRAN) per tablet 08012-506-39 Oral aborted Take by mouth [facility] Cholecalciferol 2000 UNT Oral Capsule Ch olecalciferol (VITAMIN D3) 2000 UNITS capsule Cholecalciferol (VITAMIN D3) 2000 UNITS capsule Oral aborted Take by mouth [facility] 24 HR metoprolol succinate 25 MG Extende d Release Oral Tablet metoprolol (TOPROL-XL) 25 MG 24 hr tablet metoprolol (TOPROL-XL) 25 MG 24 hr tablet 25 mg Oral aborted Take 25 mg by mouth [facility] Aspirin 325 MG Oral Tablet aspirin 325 MG tablet aspirin 325 MG tab let 81 mg Oral aborted Take 81 mg by mouth [facility] Insurance Providers Payer name Policy type / Coverage type Policy ID Covered republican ID Covered republican's relationship to nino Policy Nino Plan Information CELESTINO [id number] SP [id number] 500 CELESTINO [id number] SP [id number] CELESTINO EXCHANGE U [id number] Self 7 [id number] [facility] INS [facility] [id number] Empl [id number] CELESTINO CARE [place] O [id number] O [id number] CELESTINO MEDICAID [id number] Emperatriz 7 [id number] CELESTINO MEDICAID [id number] [employer] [place] Other 0 Self 0 [place] Other 0 Self 0 CELESTINO CARE OF [place] -OP [id number] 18 [id number] [place] Other 0 Self 0 [place] Other 0 Self 0 [place] Other 0 Self 0 [place] Other 0 Self 0 [place] Care [place] Other 0 Self 0 [place] Other 0 Self 0 [place] Other 0 Self 0 [place]ARE [place] [id number] [place] Other 0 Self 0 [place] Other 0 Self 0 [place] Other 0 Self 0 [place] Other 0 Self 0 [place] Other 0 Self 0 Cel[place] Care [place] Other 0 Self 0 Celest[place] Care [place] Other 0 Self 0 POMCO U [id number] Self [id number] [facility] INS [facility] [id number] Empl [id number] STATE INS FUND W [id number] [facility] [id number] [place] State Insurance Fund Workers Compensation [id number] Self [id number] Liberal 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 [id number] Self [id number] Liberal Commercial Self [place] State Insurance Fund Workers Compensation Self CELESTINO MEDICAID [id number] Emperatriz 7 [id number] MEDICAID [id number] Emperatriz [id number] POMCO [id number] Emperatriz [id number] [place] Commercial Self STATE INS FUND W [id number] Empl [id number] POMCO O [id number] S [id number] STATE INSURANCE FUND O [id number] S [id number] STATE INSURANCE FUND O [id number] S [id number] [employer] [id number] SP [id number] POMCO [id number] SP [id number] Problems, Conditions, and Diagnoses Code Display Name Description Problem Type Effective Dates Data Source(s) 94715192 Type 1 diabetes mellitus Type 1 diabetes mellitus Prob rose 06/21/2020 12:00:00 AM EST [place] ([facility], ) R06.02 Shortness of breath Shortness of breath [id number] 1 07/29/2019 12:00:00 AM EST [facility] R91.8 Mass of upper lobe of right lung Mass of upper l obe of right lung [id number] 05/28/2020 12:00:[address] [facility] J90 Pleural effusion, not elsewhere classifi ed Pleural effusion, not elsewhere classified Diagnosis 06/11/2020 09:36:00 AM EST [facility] C79.9 Secondary malignant neoplasm of unspecif ied site Secondary malignant neoplasm of unspecified site Diagnosis 06/08/2020 08:48:00 AM EST [facility] I48.0 Paroxysmal atrial fibrillation Paroxysmal atrial fibri llation Diagnosis 05/28/2020 08:55:00 AM EST [facility] R06.02 Shortness of breath Shortness of breath Diagnosis 1 07/29/2019 08:55:00 AM EST [facility] R91.8 Other nonspecific abnormal finding of maira ng field Other nonspecific abnormal finding of maira Diagnosis 05/28/2020 08:55:00 AM EST [facility] R07.9 Chest pain, unspecified Chest pain, unspecified Diagno sis 05/28/2020 08:55:00 AM [facility] R079 Chest pain, unspecified Chest pain, unspecified Diagno sis 05/07/2020 09:30:[address] [facility] I10 Essential (primary) hypertension Essential (primary) h ypertension Diagnosis 04/30/2020 08:24:[address] [facility] E782 Mixed hyperlipidemia Mixed hyperlipidemia Diagnosis 04/30/2020 08:24:[address] [facility] R5383 Other fatigue Other fatigue Diagnosis 04/30/2020 08:24:[address] [facility] Z125 Encounter for screening for malignant ne oplasm of prostate Encounter for screening for malignant neoplasm of prostate Diagnosis 0 07:43:[address] [facility] E291 Testicular hypofunction Testicular hypofunction Diagno sis 08/12/2019 07:43:[address] [facility] E8352 Hypercalcemia Hypercalcemia Diagnosis 08/12/2019 07:43:[address] [facility] E23700 Personal history of nicotine dependence Personal history of nicotine dependence Diagnosis 07/07/2019 01:18:[address] [facility] Z7984 jail (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 E119 Type 2 diabetes mellitus without complic ations Type 2 diabetes mellitus without complications Diagnosis 07/07/2019 01:18:00 PM [facility] M7022 Olecranon bursitis, left elbow Olecranon bursitis, lef t elbow Diagnosis 07/07/2019 01:18:[address] [facility] R2232 Localized swelling, mass and lump, left upper limb Localized swelling, mass and lump, left upper limb Diagnosis 07/07/2019 01:18:00 PM EST [facility] Y9389 Activity, other specified Activity, other specified Di agnosis 07/07/2019 01:18:[address] [facility] Surgeries/Procedures Procedure Description Date Indications Data Source(s) INSERTION INDWELLING TUNNELED PLEURAL CATHETER 020 12:00:00 AM EST [facility] ([facility], ) DEMO&/EVAL OF PT UTILIZ AERSL GEN/NEB/INHLR/IPPB 06/01 12:00:00 AM EST [facility] ([facility], ) ECG ROUTINE ECG W/LEAST 12 LDS W/I&R POCT AMB EKG Routine 05/28/2020 9:15 AM EST Chest pain, unspecified type 05/28/2020 02:15:00 PM EST [place] pain, unspecified type [facility] Chest pain, unspecified type ELECTROCARDIOGRAM, COMPLETE (EKG) ELECTROCARDIOGRAM, COMPLET E (EKG) 05/07/2020 12:00:00 AM EST [place] ([facility]) ELECTROCARDIOGRAM, COMPLETE (EKG) ELECTROCARDIOGRAM, COMPLET E (EKG) 05/07/2020 12:00:00 AM EST [place] ([facility]) Computed tomography angiography of thorax (procedure) [facility] of [facility]ax (procedure) 04/11/2020 08:44:[address] [facility] l Plain chest X-ray (procedure) 04/11/2020 05:34:00 PM E [facility] CT Head without contrast 04/11/2020 05:34:00 PM [facility] Plain chest X-ray (procedure) 04/11/2020 05:34:00 PM E [facility] CT Head without contrast 04/11/2020 05:34:00 PM [facility] Blood Culture 04/11/2020 12:00:00 AM [facility] SARS-CoV-2 (PCR) Interpretation 04/11/2020 12:00:00 AM [facility] Blood Culture 04/11/2020 12:00:00 AM [facility] SARS-CoV-2 (PCR) Interpretation 04/11/2020 12:00:00 AM EDT [facility] ELECTROCARDIOGRAM, COMPLETE (EKG) ELECTROCARDIOGRAM, COMPLET E (EKG) 08/20/2019 12:00:00 AM [facility]) FECAL BLOOD ASSAY TEST (waived laboratory) FECAL BLOOD ASSAY TEST (waived laboratory) 08/20/2019 12:00:00 AM [facility]) O2 SATURATION> 88% /OLI>55 O2 SATURATION> 88% /OLI>55 2019 12:00:00 AM [facility]) FECAL BLOOD ASSAY TEST FECAL BLOOD ASSAY TEST 08/20/2019 12:00:00 A M [facility]) ELECTROCARDIOGRAM, COMPLETE (EKG) ELECTROCARDIOGRAM, COMPLET E (EKG) 08/20/2019 12:00:00 AM [facility]) O2 SATURATION> 88% /OLI>55 O2 SATURATION> 88% /OLI>55 2019 12:00:00 AM [facility]) Blood culture for bacteria, including anaerobic screen (proc edure) 07/07/2019 12:00:00 AM [facility] l Gram stain microscopy (procedure) 07/07/2019 12:00:00 AM [facility] Aerobic microbial culture (procedure) 07/07/2019 12:00 :00 AM [facility] Blood culture for bacteria, including anaerobic screen (proc edure) 07/07/2019 12:00:00 AM [facility] l Gram stain microscopy (procedure) 07/07/2019 12:00:00 AM [facility] Aerobic microbial culture (procedure) 07/07/2019 12:00 :00 AM [facility] HbA1c (Glycosolated) (waived laboratory) HbA1c (Glycos olated) (waived laboratory) 06/25/2019 12:00:00 AM [facility]) CAPILLARY BLOOD DRAW CAPILLARY BLOOD DRAW 06/25/2019 12:00:00 AM [facility]) GLUCOSE (waived laboratory) GLUCOSE (waived laboratory) 12/2019 12:00:00 AM [facility]) O2 SATURATION> 88% /OLI>55 O2 SATURATION> 88% /OLI>55 2019 12:00:00 AM EST [place] ([facility]) Results ID Date Data Source [id number] 07/15/2020 10:32:00 AM EST [facility] Name Value Range Interpretation Code Description Data Shelly rce(s) Supporting Document(s) SARS-CoV-2 (COVID 19) NEGATIVE - SARS-CoV-2 (COVID19) [facility] This lab was ordered by [facility] a nd reported by [facility]. ID Date Data Source [id number] 07/03/2020 09:52:00 AM EST [facility] Name Value Range Interpretation Code Description Data Shelly rce(s) Supporting Document(s) SARS-CoV-2 (COVID 19) NEGATIVE - SARS-CoV-2 (COVID19) [facility] This lab was ordered by [facility] a nd reported by [facility]. ID Date Data Source [id number] 06/22/2020 12:00:00 AM EST [facility] oly Imaging Lizett Cooley MD Patient Name: TOLU [id number] Date of : 1955[place] [address] Date of Exam: [facility] - [...] rce(s) Supporting Document(s) ID Date Data Source [id number] 06/08/2020 04:28:00 AM EST [facility] Name Value Range Interpretation Code Description Data Shelly rce(s) Supporting Document(s) SARS coronavirus 2 RNA [Presence] in Res piratory specimen by KRISTEN with probe detection [facility] This lab was ordered by [facility] a nd reported by [facility]. ID Date Data Source [id number] 06/26/2020 06:36:00 PM [facility] Anatomic Molecular Pathology ReportName: TOLU RATLIFFMRN: [id number] Number: [id number] Date: 06/08/2020 00:00Received Date: 06/16/2020 09:03Physician(s): BETHANY FELIX MD HAGHIR, SHAHANDEH F,MDCopy To:LIZETT COOLEY,[facility]ITALpecimen(s) ReceivedA: Pleural fluid, Formalin Block [id number] A2 received from [facility] in [place], [place], ROS1 by FISHDiagnosisTEST:ROS1 gene rearrangements by [...] Miranda M.D. Attending Pathologist 06/26/2020 18:36:59Reported at [address] [place] [address]. Gross DescriptionMETHODOLOGY:Interphase FISH is performed on paraffin embedded NSCLC utilizing thecombined [employer] Molecular LSI ROS1(Eliza) and ROS1(Tel) ROS1 Probes: 1)3'-ROS1(Eliza), 557 kb, labeled with SpectrumGreen, and 2) 5'- ROS1(Tel),317kb, labeled with SpectrumOrange. Tumor cells with no LBV7ickrtdtqykqxyz have 2 yellow signals (fused orange and [...] and its performance characteristics weredetermined by the [facility],and it has been authorized for clinical use by [facility]. The test has not been cleared or approved by the U.S. Food andDrug Administration. The analyte specific reagents used in this assay donot require FDA approval. REFERENCES: 1. SHANTELL Juarez, Daisy AT, Theparadise RIVAS et al. Identifying and Targeting QWN1Utfa Fusions in NonSmall Cell Lung Cancer. Clin Cancer Res 2012; 18(17);17800188.2. Iqbal, Severo AT. Novel Targets in Non-Small Cell Lung Cancer:ROS-1 and RET fusions. The Oncologist. 2013;18:865-875.This report may include one or more immunohistochemical stain results thatuse analyte specific reagents. All positive and negative controls havebeen reviewed by the attending pathologist and are satisfactory. The testswere developed and their performance characteristics determined by [facility] Pathology department. They have not been cleared or approved by the USFood and Drug Administration. The FDA has determine d that such clearanceor approval is not necessary. Name Value Range Interpretation Code Description Data Shelly rce(s) Supporting Document(s) ID Date Data Source [id number] 06/25/2020 12:10:00 PM [facility] Anatomic Molecular Pathology ReportName: TOLU RATLIFFMRN: [id number] Number: [id number] Date: 06/08/2020 00:00Received Date: 06/16/2020 09:06Physician(s): BETHANY FELIX MD HAGHIR, SHAHANDEH F,MDCopy To:LIZETT COOLEY,[facility]ITALpecimen(s) ReceivedA: Pleural fluid, Formalin Block [id number] A2 received from [facility] in [place] BRAF Mutation AnalysisDiagnosisTESTS:BRAF V600E mutation (1799 [...] Miranda M.D. Attending Pathologist 06/25/2020 12:10:33Reported at [address] [place] [id number]. Gross DescriptionMETHODOLOGY:BRAF V600E(1799 T>A) mutation at exon [...] theamounts of PCR products, and analyzed by [employer] real timeinstrument. The analytical sensitivity (or minimum percentage of mutantDNA needed) is approximately 10% given sufficient DNA input. Test development and its performance characteristics were determined bythe [facility], and has beenauthorized for clinical use by [facility]. Thetest has not been cleared or approved by the U.S. Food and DrugAdministration. The analyte specific reagents used in this assay do notrequire FDA approval. REFERENCES: 1. Dolores S, Deandre Cortés, et al. Detection of BRAF K826Yzdqftcis in colorectal cancer-comparison of automatic sequencing and realtime chemistry methodology. J Mol Diagn. 2006; 8:927231.2. Raul L, Chica TJ, Nayeli N, et al. BRAF mutation analysis in fineneedle aspiration (FNA) cytology of the thyroid. Diagn Mol Pa thol.2006;15:939198.3. Brenda PK, Glen ME, Lelo M, et al. Clinical characteristics ofpatients with lung adenocarcinomas harboring BRAF mutations. J Clin Oncol.2011;29:5557-3345.This report may include one or more immunohistochemical stain results thatuse analyte specific reagents. All positive and negative controls havebeen reviewed by the attending pathologist and are satisfactory. The testswere developed and their performance characteristics determined by [facility] Pathology department. They have not been cleared or approved by the USFood and Drug Administration. The FDA has determined that such clearanceor approval is not necessary. Name Value Range Interpretation Code Description Data Shelly rce(s) Supporting Document(s) ID Date Data Source [id number] 06/25/2020 09:32:00 [facility] Anatomic Molecular Pathology ReportName: TOLU RATLIFFNICK: [id number] Number: [id number] Date: 06/08/2020 00:00Received Date: 06/16/2020 09:04Physician(s): BETHANY FELIX MD HAGHIR, SHAHANDEH F,[facility] To:LIZETT COOLEYMONTEFIORE [facility] HOSPITALpecimen(s) ReceivedA: Pleural fluid, Formalin Block [id number] A2 received from [facility] in [place], [place] EGFRDiagnosisTEST: EGFR gene mutations (exon 19 [...] indicated. Presence of exon 19 deletions, exon 67I199V or L861Q, exon 18 G719A or exon [...] Miranda M.D. Attending Pathologist 06/25/2020 09:32:10Reported at [address] [place] [address]. Gross DescriptionMETHODOLOGY:The therascreen EGFR RGQ PCR Kit ([employer], [place], [place]) is a real-timequalitative PCR assay used on the [employer]sInk instrument for thedetection of seven types of [...] factor receptormutations in lung cancer. Nature Review/Cancer. 2007;3387-4326.This report may include one or more immunohistochemical stain results thatuse analyte specific reagents. All positive and negative controls havebeen reviewed by the attending pathologist and are satisfactory. The testswere developed and their performance characteristics determined by [facility] Pathology department. They have not been cleared or approved by the USFood and Drug Administration. The FDA has determined that such clearanceor approval is not necessary. Name Value Range Interpretation Code Description Data Shelly rce(s) Supporting Document(s) ID Date Data Source [id number] 06/25/2020 09:18:00 AM [facility] Anatomic Molecular Pathology ReportName: TOLU RATLIFFMRN: [id number] Number: [id number] Date: 06/08/2020 00:00Received Date: 06/16/2020 09:05Physician(s): BETHANY FELIX MD HAGHIR, SHAHANDEH F,[facility] TULSAopy To:LIZETT COOLEY,[facility]PITALpecimen(s) ReceivedA: Pleural fluid, Formalin Block [id number] [id number] received from [facility] in [place] KRAS Mutation AnalysisDiagnosisTEST:KRAS gene mutations by [...] M.D. Attending Pathologist 06/25/2020 09:18:25Reported at [address] [place] [address]. Gross DescriptionMETHODOLOGY:The therascreen KRAS RGQ PCR Kit is a real-time qualitative PCR assay usedon the optionsXpress instrument for the detection of seven somaticmutations [...] Morejon, Terri JM, Somepeter MR, et al. [place] Societyof Clinical Oncology provisional clinical opinion: testing for KRAS genemutations in patients with metastatic colorectal carcinoma to predictresponse to anti-epidermal growth factor receptor monoclonal antibodytherapy. J Clin Oncol 27:2311-9934, 2009. 2. Magdalena S , Peg Javed , GALINA Mace, et al.Biomarkers predicting clinical outcome of epidermal growth factor receptortargeted therapy in metastatic colorectal cancer. J Natl Cancer Rhub171:02077324, 2009.This report may include one or more immunohistochemical stain results thatuse analyte specific reagents. All positive and negative controls havebeen reviewed by the attending pathologist and are satisfactory. The testswere developed and their performance characteristics determined by [facility] Pathology department. They have not been cleared or approved by the USFood and Drug Administration. The FDA has determined that such clearanceor approval is not necessary. Name Value Range Interpretation Code Description Data Shelly rce(s) Supporting Document(s) ID Date Data Source [id number] 06/25/2020 09:10:00 AM [facility] Anatomic Molecular Pathology ReportName: TOLU RATLIFFMRN: [id number] Number: [id number] Date: 06/08/2020 00:00Received Date: 06/16/2020 09:01Physician(s): BETHANY FELIX MD HAGHIR, SHAHANDEH F,MDCopy To:LIZETT COOLEYLINCOLN HOSPITALpecimen(s) ReceivedA: Pleural fluid, Formalin Block [id number] received from [facility] in [place], [place], ALK by FISHDiagnosisTEST:ALK gene rearrangements by [...] Miranda M.D. Attending Pathologist 06/25/2020 09:10:47Reported at [address] [place] [address]. Gross DescriptionMETHODOLOGY:Interphase FISH is performed on paraffin embedded NSCLC utilizing theTytanium Ideas Molecular ALK Break Apart FISH Probe Kit. [...] the special procedure laboratory of Department of Pathology,[facility]. This report may include one or more immunohistochemical stain results thatuse analyte specific reagents. All positive and negative controls havebeen reviewed by the attending pathologist and are satisfactory. The testswere developed and their performance characte ristics determined by [facility] Pathology department. They have not been cleared or approved by the USFood and Drug Administration. The FDA has determined that such clearanceor approval is not necessary. Name Value Range Interpretation Code Description Data Shelly rce(s) Supporting Document(s) ID Date Data Source [id number] 05/07/2020 09:36:00 AM [facility] [place] ([facility]) Name Value Range Interpretation Code Description Data Shelly rce(s) Supporting Document(s) Reported Physicians See Note Reported Physici karoline [place] ([facility]) Note: Reported Physicians:Ordering: Esha De La Garza AAttending: ESHA TALAMANTESConsulting: Alex TALAMANTES To: Esha Talamantes ID Date Data Source [id number] 05/07/2020 09:36:00 AM [facility] ([facility]) Name Value Range Interpretation Code Description Data Shelly rce(s) Supporting Document(s) Procalcitonin [Mass/volume] in Serum or Plasma by Immunoassay 0.04 ng/mL Procalcitonin [place] ([facility]) Note: A procalcitonin (PCT) level above 2.0 [...] obtained.Responsible Observer: (rfl) ID Date Data Source [id number] 05/07/2020 09:36:00 AM [facility] [place] ([facility]) Name Value Range Interpretation Code Description Data Shelly rce(s) Supporting Document(s) Reported Physicians See Note Reported [facility] ([facility]) Note: Reported Physicians:Ordering: Beadr e, Esha AAttending: VINITA, JOCELYNConsulting: VINITA, JOCELYNCopy To: Vinita, Esha ID Date Data Source [id number] 05/07/2020 09:36:00 AM [facility] ([facility]) Name Value Range Interpretation Code Description Data Shelly rce(s) Supporting Document(s) SED RATE 18 mm/hr SED RATE [place] ([facility]) Note: Responsible Observer: (CM) SED RATE REENTER 18 SED RATE REENTER [facility] ([facility]) Note: Responsible Observer: (CM) ID Date Data Source [id number] 05/07/2020 09:36:00 AM [facility] [place] ([facility]) Name Value Range Interpretation Code Description Data Shelly rce(s) Supporting Document(s) Reported Physicians See Note Reported [facility] ([facility]) Note: Reported Physicians:Ordering: Beard e, Esha AAttending: VINITA, JOCELYNConsulting: VINITA, JOCELYNCopy To: Vinita, Esha ID Date Data Source [id number] 05/07/2020 09:36:00 AM [facility] ([facility]) Name Value Range Interpretation Code Description Data Shelly rce(s) Supporting Document(s) CRP-HS 8.40 MG/L Above high normal CRP-HS [facility] ([facility]) Note: [facility]/S HS-CRP CUT-OFF : RELATIVE RISK: <1.0 mg/L Low 1.0 - 3.0 mg/L Average >3.0 mg/L High Optimally, the average of HS-CRP results repeated two weeks apart should be used for risk assessment.Responsible Observer: () ID Date Data Source [id number] 05/07/2020 09:36:00 AM EST [place] ([facility] [facility]) Name Value Range Interpretation Code Description Data Shelly rce(s) Supporting Document(s) Reported Physicians See Note Reported [facility] ans [place] ([facility]) Note: Reported Physicians:Ordering: Beard e, Esha AAttending: VINITA, JOCELYNConsulting: VINITA, JOCELYNCopy To: Vinita, Esha ID Date Data Source [id number] 05/07/2020 09:36:00 AM EST [place] ([facility]) Name Value Range Interpretation Code Description Data Shelly rce(s) Supporting Document(s) BNP 211 PG/ML Above high normal BNP [place] ([facility]) Note: Responsible Observer: () ID Date Data Source [id number] 05/07/2020 09:36:00 AM EST [place] ([facility]) Name Value Range Interpretation Code Description Data Shelly rce(s) Supporting Document(s) Reported Physicians See Note Reported [facility] ([facility]) Note: Reported Physicians:Ordering: Beard e, Esha AAttending: VINITA, JOCELYNConsulting: VINITA, JOCELYNCopy To: Vinita, Esha ID Date Data Source [id number] 05/07/2020 09:36:00 AM EST [place] ([facility]) Name Value Range Interpretation Code Description Data Shelly rce(s) Supporting Document(s) TROPONIN T <0.01 NG/ML TROPONIN T [place] ([facility]) Note: TROPONIN T0.1 ng/ml Recommended as the clinical threshold value forTroponin T.Responsible Observer: () ID Date Data Source [id number] 05/07/2020 09:36:00 AM EST [place] ([facility]) Name Value Range Interpretation Code Description Data Shelly rce(s) Supporting Document(s) Reported Physicians See Note Reported Physici ans [place] ([facility]) Note: Reported Physicians:Ordering: Beard e, Esha AAttending: VINITA, JOCELYNConsulting: VINITA, JOCELYNCopy To: Vinita, Esha ID Date Data Source [id number] 05/07/2020 09:36:00 AM EST [place] ([facility]) Name Value Range Interpretation Code Description Data Shelly rce(s) Supporting Document(s) #BASO 0.05 10\\^3/uL #BASO [place] ([facility]) Note: Responsible Observer: () #EOS 0.38 10\\^3/uL #EOS [place] ([facility]) Note: Responsible Observer: () #IG 0.03 10\\^3/uL #IG [place] ([facility]) Note: Responsible Observer: () #LYMPH 1.37 10\\^3/uL #LYMPH [place] ([facility]) Note: Responsible Observer: () #MONO 0.85 10\\^3/uL #MONO [place] ([facility]) Note: Responsible Observer: () #NEUT 6.85 10\\^3/uL #NEUT [place] ([facility]) Note: Responsible Observer: () #NRBC 0.00 10\\^3/uL #NRBC [place] ([facility]) Note: Responsible Observer: () %EOS 5 % %EOS [place] ([facility]) Note: Responsible Observer: (CLD) %IG 0.3 % Above high normal %IG [place] ([facility]) Note: Responsible Observer: () %LYMPH 13 % Below low normal %LYMPH [place] ([facility]) Note: Responsible Observer: (CLD) %MONO 7 % %MONO [place] ([facility]) Note: Responsible Observer: (CLD) %NRBC 0.0 % %NRBC [place] ([facility]) Note: Responsible Observer: () BAND 0 % BAND [place] ([facility]) Note: Responsible Observer: (CLD) BASO 0.5 % BASO [place] ([facility]) Note: Responsible Observer: () Blasts [#] in Body fluid by Manual count 0 % BLASTS [place] ([facility]) Note: Responsible Observer: (CLD) CBC W/MANUAL DIFF See Note CBC W/MANUAL DIFF [place] ([facility]) Note: CO RRECTED REPORT COMPLETE BLOOD COUNTResponsible Observer: (CLD) EOS 4.0 % EOS [place] ([facility]) Note: Responsible Observer: () Hematocrit [Pure volume fraction] of Blood by Automated count 41.4 % HEMATOCRIT [place] ([facility]) Note: Responsible Observer: () Hemoglobin [Mass/volume] in Mixed venous blood by Oximetry 14.0 g/d L HEMOGLOBIN [place] ([facility]) Note: Responsible Observer: () LYMPH 14.4 % Below low normal LYMPH [place] ([facility]) Note: Responsible Observer: () MANUAL DIFF SEE BELOW MANUAL DIFF [place] ([facility]) Note: Responsible Observer: (CLD) MCH 30.2 pg MCH [place] ([facility]) Note: Responsible Observer: () MCHC 33.8 g/dL MCHC [place] ([facility]) Note: Responsible Observer: () MCV 89.2 fL MCV [place] ([facility]) Note: Responsible Observer: () MONO 8.9 % Above high normal MONO [place] ([facility]) Note: Responsible Observer: () MPV 8.6 fL MPV [place] ([facility]) Note: Responsible Observer: () NEUT 71.9 % NEUT [place] ([facility]) Note: Responsible Observer: () Platelets [#/area] in Blood by Microscopy high power field 300 10\\^ 3/uL PLATELETS [place] ([facility]) Note: Responsible Observer: () RBC 4.64 10\\^6/uL RBC [place] ([facility]) Note: Responsible Observer: () RBC MORPH NOT INDICATED RBC MORPH [place] ([facility]) Note: FOLLOWING RE SULTS REPORTED IN ERROR MANUAL DIFF NOTINDICATED <-- *Previously reported in error 05/07/20.0948.MD . . .M{ CORRECTResponsible Observer: () RDW 12.2 % RDW [place] ([facility]) Note: Responsible Observer: () SEGS 75 % SEGS [place] ([facility]) Note: Responsible Observer: (MOISES) WBC 9.5 10\\^3/uL WBC [place] ([facility]) Note: Responsible Observer: () ID Date Data Source [id number] 05/12/2020 06:51:[address] [facility] Name Value Range Interpretation Code Description Data Shelly rce(s) Supporting Document(s) Procalcitonin [Mass/volume] in Serum or Plasma 0.04 ng/mL 0.00-0.08 [facility] A procalcitonin (PCT) level above 2.0 [...] ng/mL are obtained. ID Date Data Source [id number] 05/07/2020 10:37:[address] [facility] Name Value Range Interpretation Code Description Data Shelly rce(s) Supporting Document(s) BNP 211 PG/ML 0 - 125 H [facility] ID Date Data Source [id number] 05/07/2020 10:37:[address] [facility] Name Value Range Interpretation Code Description Data Shelly rce(s) Supporting Document(s) C reactive protein [Mass/volume] in Serum or Plasma by High sensitivity method 8.40 MG/L 1.00 - 3.00 H [facility] CDC/S HS-CRP CUT-OFF: RELATIVE RISK: <1.0 mg/L Low 1.0 - 3.0 mg/L Average >3.0 mg/L High Optimally, the average of HS-CRP results repeated two weeks apart should be used for risk assessment. ID Date Data Source [id number] 05/07/2020 10:27:[address] [facility] Name Value Range Interpretation Code Description Data Shelly rce(s) Supporting Document(s) CBC W/MANUAL DIFF [facility] CORRECTE D REPORT COMPLETE BLOOD COUNT Leukocytes [#/volume] in Blood by Automated count 9.5 10^3/uL 4.2 - 1 1.0 [facility] Erythrocytes [#/volume] in Blood by Automated count 4.64 10^6/uL 4. 50 - 6.30 [facility] Hemoglobin [Mass/volume] in Blood 14.0 g/dL 14.0 - 16.0 [facility] Hematocrit [Volume Fraction] of Blood by Automated count 41.4 % 4 1.0 - 51.0 [facility] Erythrocyte mean corpuscular volume [Entitic volume] by Auto mated count 89.2 fL 80.0 - 94.0 [facility] Erythrocyte mean corpuscular hemoglobin [Entitic mass] by Automated count 30.2 pg 27.0 - 34.0 [facility] Erythrocyte mean corpuscular hemoglobin concentration [Mass/volume] by Automated count 33.8 g/dL 31.0 - 36.0 [facility] Erythrocyte distribution width [Ratio] by Automated count 12.2 % 11.5 - 14.8 [facility] Platelets [#/volume] in Blood by Automated count 300 10^3/uL 150 - 45 0 [facility] Platelet mean volume [Entitic volume] in Blood by Automated count 8.6 fL 7.4 - 10.4 [facility] Neutrophils/100 leukocytes in Blood by Automated count 71.9 % 37. 0 - 80.0 [facility] Lymphocytes/100 leukocytes in Blood by Manual count 14.4 % 25.0 - 40.0 L [facility] Monocytes/100 leukocytes in Blood by Automated count 8.9 % 3.0 - 8.0 H [facility] Eosinophils/100 leukocytes in Blood by Automated count 4.0 % 0.0 - 7.0 [facility] Basophils/100 leukocytes in Blood by Automated count 0.5 % 0.0 - 2.0 [facility] %IG 0.3 % 0.0 - 0.0 H [facility] al %NRBC 0.0 % 0.0 - 0.0 [facility] al Neutrophils [#/volume] in Blood by Automated count 6.85 10^3/uL 2.00 - 6.90 [facility] Lymphocytes [#/volume] in Blood by Automated count 1.37 10^3/uL 0.60 - 3.40 [facility] Monocytes [#/volume] in Blood by Automated count 0.85 10^3/uL 0.00 - 0.90 [facility] Eosinophils [#/volume] in Blood by Automated count 0.38 10^3/uL 0.00 - 0.70 [facility] Basophils [#/volume] in Blood by Automated count 0.05 10^3/uL 0.00 - 0.20 [facility] #IG 0.03 10^3/uL 0.00 - 0.10 [facility] #NRBC 0.00 10^3/uL 0.00 - 0.00 [facility] MANUAL DIFF SEE BELOW [facility] Segmented neutrophils/100 leukocytes in Blood by Manual count 75 % 37 - 80 [facility] BAND 0 % 0 - 5 [facility] %LYMPH 13 % 25 - 40 L [facility] %MONO 7 % 3 - 8 [facility] %EOS 5 % 0 - 7 [facility] Blasts/100 leukocytes in Blood by Manual count 0 % [facility] RBC MORPH NOT INDICATED [facility] FOLLOWING RESULTS REPORTED IN ERROR MANUAL DIFF { CORRECT ID Date Data Source [id number] 05/07/2020 10:26:[address] [facility] Name Value Range Interpretation Code Description Data Shelly rce(s) Supporting Document(s) TROPONIN T <0.01 NG/ML 0.00 - 0.10 [facility] ospital TROPONIN T0.1 ng/ml Recommended as the c linical threshold value forTroponin T. ID Date Data Source [id number] 05/07/2020 10:06:[address] [facility] Name Value Range Interpretation Code Description Data Shelly rce(s) Supporting Document(s) Erythrocyte sedimentation rate by Westergren method 18 mm/hr 0 - 20 [facility] SED RATE REENTER 18 [facility] ID Date Data Source [id number] 04/30/2020 08:37:00 AM EST [place] ([facility]) Name Value Range Interpretation Code Description Data Shelly rce(s) Supporting Document(s) Reported Physicians See Note Reported Physici ans [place] ([facility]) Note: Reported Physicians:Ordering: Esha De La Garza AAttending: ESHA TALAMANTESConsulting: ESHA TALAMANTESCopninfa To: Esha Talamantes ID Date Data Source [id number] 04/30/2020 08:37:00 AM EST [place] ([facility]) Name Value Range Interpretation Code Description Data Shelly rce(s) Supporting Document(s) CPK 59 U/L CPK [place] ([facility]) Note: Responsible Observer: (TAD) ID Date Data Source [id number] 04/30/2020 08:37:00 AM EST [place] ([facility]) Name Value Range Interpretation Code Description Data Shelly rce(s) Supporting Document(s) Reported Physicians See Note Reported Physici ans [place] ([facility]) Note: Reported Physicians:Ordering: Esha De La Garza AAttending: ESHA TALAMANTESConsulting: Alex TALAMANTES To: Esha Talamantes ID Date Data Source [id number] 04/30/2020 08:37:00 AM EST [place] ([facility]) Name Value Range Interpretation Code Description Data Shelly rce(s) Supporting Document(s) Cholesterol [Moles/volume] in Pericardial fluid 162 MG/DL CHOLESTEROL [place] ([facility]) Note: Responsible Observer: (TAD) CVE PANEL See Note CVE PANEL [place] ([facility]) Note: LIPID PANELResponsible Observe r: (TAD) HDL 40 MG/DL HDL [place] ([facility]) Note: Responsible Observer: (TAD) Cholesterol in LDL [Mass/volume] in Serum or Plasma by Direct as say 91 mg/dL LDL [place] ([facility]) Note: Responsible Observer: (TAD) LDL/HDL 2.28 LDL/HDL [place] ([facility]) Note: CVE RISK CHOL/HD L LDL/HDLMEN: 1/2 AVERAGE 3.43 1.00 AVERAGE 4.97 3.55 2X AVERAGE 9.55 6.25 3X AVERAGE 23.99 7.99WOMEN: 1/2 AVERAGE 3.27 1.47 AVERAGE 4.44 3.22 2X AVERAGE 7.05 5.03 3X AVERAGE 11.04 6.14Responsible Observer: (TAD) RISK FACTOR 4.1 RISK FACTOR [place] ([facility]) Note: Responsible Observer: (TAD) TRIGLYCERIDES 198 MG/DL Above high normal [facility] Note: Responsible Observer: (TAD) ID Date Data Source [id number] 04/30/2020 08:37:00 AM EST [place] ([facility]) Name Value Range Interpretation Code Description Data Shelly rce(s) Supporting Document(s) Reported Physicians See Note Reported Physici ans [place] ([facility]) Note: Reported Physicians:Ordering: Beard e, Esha AAttending: VINITA, JOCELYNConsulting: VINITA, JOCELYNCopy To: Vinita, Esha ID Date Data Source [id number] 04/30/2020 08:37:00 AM EST [place] ([facility]) Name Value Range Interpretation Code Description Data Shelly rce(s) Supporting Document(s) URIC ACID 5.1 MG/DL URIC ACID [place] ([facility]) Note: Responsible Observer: (TAD) ID Date Data Source [id number] 04/30/2020 08:37:00 AM EST [place] ([facility]) Name Value Range Interpretation Code Description Data Shelly rce(s) Supporting Document(s) Reported Physicians See Note [facility] Note: Reported Physicians:Ordering: Beard e, Esha AAttending: VINITA, JOCELYNConsulting: VINITA, JOCELYNCopy To: Vinita, Esha ID Date Data Source [id number] 04/30/2020 08:37:00 AM EST [place] ([facility]) Name Value Range Interpretation Code Description Data Shelly rce(s) Supporting Document(s) TSH 2.19 uIU/mL TSH [place] ([facility]) Note: Responsible Observer: (TAD) ID Date Data Source [id number] 04/30/2020 09:31:[address] [facility] Name Value Range Interpretation Code Description Data Shelly rce(s) Supporting Document(s) Thyrotropin [Units/volume] in Serum or Plasma by Detec tion limit <= 0.05 mIU/L 2.19 uIU/mL 0.47 - 5.01 [facility] ID Date Data Source [id number] 04/30/2020 09:27:00 AM EST [facility] Name Value Range Interpretation Code Description Data Shelly rce(s) Supporting Document(s) Urate [Mass/volume] in Serum or Plasma 5.1 MG/DL 2.5 - 8.5 [facility] ID Date Data Source [id number] 04/30/2020 09:27:00 AM EST [facility] Name Value Range Interpretation Code Description Data Shelly rce(s) Supporting Document(s) Creatine kinase [Enzymatic activity/volume] in Serum or Plasma 5 9 U/L 30 - 170 [facility] ID Date Data Source [id number] 04/30/2020 09:27:[address] [facility] Name Value Range Interpretation Code Description Data Shelly rce(s) Supporting Document(s) [facility] Cholesterol [Mass/volume] in Serum or Plasma 162 MG/DL 131 - 200 [facility] Deprecated Triglyceride [Mass/volume] in Serum or Plasma 198 MG/DL 3 5 - 160 H [facility] HDL 40 MG/DL 29 - 86 [facility] Cholesterol in LDL [Mass/volume] in Serum or Plasma by Direc t assay 91 mg/dL 65 - 175 [facility] Cholesterol.total/Cholesterol in HDL [Mass Ratio] in Serum o r Plasma 4.1 3.4 - 4.9 [facility] LDL/HDL 2.28 1.00 - 3.55 [facility] ital CVE RISK CHOL/HDL LDL/HDLMEN: 1/2 AVERAGE 3.43 1.00 AVERAGE 4.97 3.55 2X AVERAGE 9.55 6.25 3X AVERAGE 23.99 7.99WOMEN: 1/2 AVERAGE 3.27 1.47 AVERAGE 4.44 3.22 2X AVERAGE 7.05 5.03 3X AVERAGE 11.04 6.14 ID Date Data Source [id number] 04/12/2020 09:42:00 AM EDT [facility] Name: TOLU RATLIFF : 1955 Age: 64 MR#: [id number] Admit Date: 04/11/20 Provider: Honorio De Souza [...] % (Auto) 68.7, Lymph % (Auto) 20.9, [place] % (Auto) 8.4, Eos % (Auto) 1.2, [...] earance Clear, Urine pH 5.0, Ur Specific [place] 1.010,Urine Protein Negative, Urine Ketones Negative, Urine [...] 94.0 H, Lymph % (Auto) 4.2 L, [place] % (Auto) 1.2 L, Eos % (Auto) [...] 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 Pt was clinically and vitally stable [...] metformin 500 mg PO DAILY 04/11/20 [History] kcrwzgmpgzoj-hpoxrohk-nunhuc 1 tab PO DAILY 04/11/20 [History] azithromycin [...] PRN (Reason: Shortness Of Breath) RF: 0 [id number]-cjnxdjcv-dttetr Tablet 1 tab PO DAILY RF: 0 [...] Souza MD SIGNATURE DA Report Cosigners: D: ASHERYVAlejandra 04/12/20941 T: ASHERYVI 04/12/20941 CC: Name Value Range Interpretation Code Description Data Shelly rce(s) Supporting Document(s) ID Date Data Source [id number] 04/12/2020 07:40:00 AM EDT [facility] @04/12/20 07: MANUAL DIFF added. RFLXG = DIFF. @04/12/20 0729: MANUAL DIFF added. RFLXG = DIFF. Name Value Range Interpretation Code Description Data Shelly rce(s) Supporting Document(s) Leukocytes [#/volume] in Blood by Automated count 14.6 10*3/uL 4.45-10.71 Above high normal [facility] Erythrocytes [#/volume] in Blood by Automated count 4.85 10*6/uL 4.3- 6.1 N [facility] Hemoglobin [Moles/volume] in Blood 14.7 g/dL 13-18 N [facility] Hematocrit [Volume Fraction] of Blood by Automated count 44.4 % 4 2-52 N [facility] Erythrocyte mean corpuscular volume [Ent itic volume] in Cord blood by Automated count 91.5 fL 80-96 N [facility] ital Erythrocyte mean corpuscular hemoglobin [Entitic mass] by Automated count 30.3 pg 27-31 [facility] Erythrocyte mean corpuscular hemoglobin concentration [Mass/volume] in Cord blood 33.1 g/dL 33-37 N [facility] ital Erythrocyte distribution width [Entitic volume] by Automated count 13 % 11-15 N [facility] Platelets [#/volume] in Blood by Automated count 235 10*3/uL 130-472 N [facility] Platelet mean volume [Entitic volume] in Blood 9.5 fL 9.1-13.1 N [facility] Neutrophils/100 leukocytes in Blood by Automated count 94.0 % 41-77 Above high normal [facility] @PERFORM SLIDE SCAN IF NOT AGREE MAN DIF F@DOCUMENT SLIDE SCAN COMMENT Neutrophils [#/volume] in Blood by Automated count 13.8 U 1.7-7.6 Above high normal [facility] Lymphocytes/100 leukocytes in Blood by Automated count 4.2 % 14-46 Below low normal [facility] Lymphocytes [#/volume] in Blood by Automated count 0.6 U 0.6-4.6 N [facility] Monocytes/100 leukocytes in Blood by Automated count 1.2 % 4-12 Below low normal [facility] Monocytes [#/volume] in Blood by Automated count 0.2 U 0.2-1.2 N [facility] Eosinophils/100 leukocytes in Blood by Automated count 0.0 % 0-7 N [facility] Eosinophils [#/volume] in Blood by Automated count 0.0 U 0.0-0.5 N [facility] Basophils/100 leukocytes in Blood by Automated count 0.1 % 0.4-1.3 Below low normal [facility] Basophils [#/volume] in Blood by Automated count 0.0 U 0.0-0.2 N [facility] NUCLEATED RED BLOOD CELL 0 % [facility] NUCLEATED RED BLOOD CELL# 0 U [facility] Immature granulocytes [Presence] in Blood by Automated count 0-2 N [facility] Immature granulocytes [#/volume] in Blood by Automated count 0.1 U 0-0.1 N [facility] Manual Differential panel - Blood Manual Diff Added [facility] ID Date Data Source [id number] 04/12/2020 07:53:00 AM EDT [facility] @04/12/20 07: MANUAL DIFF added. RFLXG = DIFF. @04/12/20 07: MANUAL DIFF added. RFLXG = DIFF. Name Value Range Interpretation Code Description Data Shelly rce(s) Supporting Document(s) Urea nitrogen [Mass/volume] in Serum or Plasma 19 mg/dL 9-23 N [facility] Sodium [Moles/volume] in Serum or Plasma 138 mmol/L 132-146 N [facility] Potassium [Moles/volume] in Serum or Plasma 4.6 mmol/L 3.5-5.5 N [facility] Chloride [Moles/volume] in Serum or Plasma 105 mmol/L 99-109 N [facility] Carbon dioxide, total [Moles/volume] in Serum or Plasma 25 mmol/L 20 -31 N [facility] Anion gap in Serum or Plasma 13 mmol/L 8-16 N [facility] Glucose [Mass/volume] in Serum or Plasma 212 mg/dL 74-106 Above high normal [facility] Creatinine 1.1 mg/dL 0.5-1.1 [facility] Glomerular filtration rate/1.73 sq M.pre dicted [Volume Rate/Area] in Serum or Plasma Greater Than 60 ABOVE 60 [facility] Alanine aminotransferase [Enzymatic acti vity/volume] in Serum or Plasma by With P-5'-P 30 U/L 10-49 [facility] ital Aspartate aminotransferase [Enzymatic ac tivity/volume] in Serum or Plasma by With P-5'-P 11 U/L 0-33 [facility] pital Alkaline phosphatase [Enzymatic activity/volume] in Serum or Plasma 58 U/L 45-129 N [facility] Calcium [Mass/volume] in Serum or Plasma 9.2 mg/dL 8.5-10.1 [facility] Bilirubin.total [Mass/volume] in Serum or Plasma 0.5 mg/dL 0.3-1.2 [facility] Albumin [Mass/volume] in Serum or Plasma by Bromocresol purple (BCP) dye binding method 3.4 g/dL 3.2-4.8 [facility] ital Protein [Mass/volume] in Serum or Plasma 7.1 g/dL 5.7-8.2 [facility] ID Date Data Source [id number] 04/12/2020 07:40:00 AM EDT [facility] @04/12/20728: MANUAL DIFF added. RFLXG = DIFF. @04/12/20728: MANUAL DIFF added. RFLXG = DIFF. Name Value Range Interpretation Code Description Data Shelly rce(s) Supporting Document(s) Cells counted [#] 100 [facility] Neutrophils [#/volume] in Blood by Manual count 97 % 41-77 Above high normal [facility] @Are you sure? Please be sure this value is correct YES Lymphocytes [#/volume] in Blood by Manual count 3 % 14-46 Below low normal [facility] Platelets [#/volume] in Blood by Estimate APPEARS NORMAL NORMAL [facility] Morphology [Interpretation] in Blood Narrative APPEARS NORMAL NORMAL [facility] ID Date Data Source [id number] 04/12/2020 07:53:00 AM EDT [facility] @04/12/20728: MANUAL DIFF added. RFLXG = DIFF. @04/12/20728: MANUAL DIFF added. RFLXG = DIFF. Name Value Range Interpretation Code Description Data Shelly rce(s) Supporting Document(s) Troponin I.cardiac [Mass/volume] in Serum or Plasma Less Than 0.015 0.00-0.09 N [facility] Less than 0.09 NG/ML Negative0.10 - 0.77 NG/ML High Risk0.78 NG/ML or Greater PositiveThe WHO defined the cutoff (definition for diagnosis of IA)for this method as 0.78 ng/ml. ID Date Data Source [id number] 04/12/2020 06:40:00 AM [facility] [place] ([facility]) Name Value Range Interpretation Code Description Data Shelly rce(s) Supporting Document(s) Reported Physicians See Note Reported Israel JOHNSON ([facility]) Note: Reported Physicians:Ordering: Pradeep Ferraraending: John De Souzaitting: Jeremiah, VikramCopy To: Jeremiah VikramCopy To: Esha Talamantes ID Date Data Source [id number] 04/12/2020 06:40:00 AM [facility] [facility]) Name Value Range Interpretation Code Description Data Shelly rce(s) Supporting Document(s) Troponin I.cardiac [Mass/volume] in Serum or Plasma Less Than 0.015 Normal Troponin I [facility]P-[facility] ([facility]) Note: Less than 0.09 NG/ML Negative 0.10 - 0.77 NG/ML High Risk0.78 NG/ML or Greater PositiveThe WHO defined the cutoff (definition for diagnosis of IA)for this method as 0.78 ng/ml.Responsible Observer: Troponin I Troponin I 600.1101 (G) ID Date Data Source [id number] 04/12/2020 06:40:00 AM EDT [place] ([facility]) Name Value Range Interpretation Code Description Data Shelly rce(s) Supporting Document(s) MANUAL DIFF See Note MANUAL DIFF [place] ([facility]) Note: NOTES OTHER/NOT INTERPRETED Cells counted 100 Lymphocytes # Bld Manual 3 %Morphology Bld-Imp APPEARS NORMAL Neutrophils # Bld Manual 97 %Platelet # Bld Est APPEARS NORMAL @Are you sure? Please be sure this value is correct YES@04/12/20 0729: MANUAL DIFF added. RFLXG = DIFF.Responsible Observer: TOTAL CELLS TOTAL CELLS COUNTED 100.2105 (A) ID Date Data Source [id number] 04/12/2020 06:40:00 AM EDT [place] ([facility]) Name Value Range Interpretation Code Description Data Shelly rce(s) Supporting Document(s) Reported Physicians See Note Reported Physici ans [place] ([facility]) Note: Reported Physicians:Ordering: Pradeep Ferraraending: John De Souzaitting: Pete De Souza To: Ancelmo De SouzaamCopninfa To: Esha Talamantes ID Date Data Source [id number] 04/12/2020 06:40:00 AM EDT [place] ([facility]) Name Value Range Interpretation Code Description Data Shelly rce(s) Supporting Document(s) Alanine aminotransferase [Enzymatic acti vity/volume] in Serum or Plasma by With P-5'-P 30 enzyme_unit_per_liter Normal ALT SerPl w P-5' -P-cCnc [place] ([facility]) Note: Responsible Observer: SGPT/ALT SGP T/ALT 400.1750 (G) Calcium [Mass/volume] in Serum or Plasma 9.2 MilliGramsPerDeciLiter_[Mass_Concentration_Units] Normal Calcium SerPl-mCnc [place] ([facility]) Note: Responsible Observer: Calcium Calc ium 400.2500 (G) Bilirubin.total [Mass/volume] in Serum or Plasma 0.5 MilliGramsPerDeciLiter_[Mass_Concentration_Units] Normal Bilirub [facility] ([facility]) Note: Responsible Observer: T ABDIRAHMAN Total Bilirubin 400.2600 (G) Carbon dioxide, total [Moles/volume] in Serum or Plasm a 25 MilliMolesPerLiter_[Substance_Concentration_Units] Normal CO2 [facility] ([facility]) Note: Responsible Observer: CO2 Carbon D ioxide 400.1400 (G) Chloride [Moles/volume] in Serum or Plasma 105 MilliMolesPerLiter_[Substance_Concentration_Units] Normal Chloride [facility] ([facility]) Note: Responsible Observer: Chloride Chl oride 400.1250 (G) Glucose [Mass/volume] in Serum or Plasma 212 MilliGramsPerDeciLiter_[Mass_Concentration_Units] Above high normal Glucose [facility] ([facility]) Note: Responsible Observer: Glucose Gluc ose 400.1500 (G) Potassium [Moles/volume] in Serum or Plasma 4.6 MilliMolesPerLiter_[Substance_Concentration_Units] Normal Potassium [facility] ([facility]) Note: Responsible Observer: K Potassium 400.1210 (G) Protein [Mass/volume] in Serum or Plasma 7.1 GramsPerDeciLiter_[Mass_Concentration_Units] Normal Pro t [facility] ([facility]) Note: Responsible Observer: TP Total Pro tein 400.2800 (G) Sodium [Moles/volume] in Serum or Plasma 138 MilliMolesPerLiter_[Substance_Concentration_Units] Normal Sodium [facility] ([facility]) Note: Responsible Observer: Sodium Sodiu m 400.1100 (G) Aspartate aminotransferase [Enzymatic ac tivity/volume] in Serum or Plasma by With P-5'-P 11 enzyme_unit_per_liter Normal AST SerPl w P-5' -P-[facility] ([facility]) Note: Responsible Observer: SGOT / AST S GOT / AST 400.1900 (G) Urea nitrogen [Mass/volume] in Serum or Plasma 19 MilliGramsPerDeciLiter_[Mass_Concentration_Units] Normal BUN [facility] ([facility]) Note: Responsible Observer: BUN Blood Ur ea Nitrogen 400.1000 (G) Anion gap in Serum or Plasma 13 MilliMolesPerLiter_[Substance_Concentration_Units] Normal Anion Gap [facility] ([facility]) Note: Responsible Observer: ANION GAP AN ION GAP 400.1402 (E) Albumin [Mass/volume] in Serum or Plasma by Bromocresol purple (BCP) dye binding method 3.4 GramsPerDeciLiter_[Mass_Concentration_Units] Normal Albumin [facility] ([facility]) Note: Responsible Observer: Albumin [place] min 400.2700 (G) Alkaline phosphatase [Enzymatic activity/volume] in Se rum or Plasma 58 enzyme_unit_per_liter Normal ALP [facility] ( [facility]) Note: Responsible Observer: ALP Alkaline Phosphatase 400.2000 (G) Glomerular filtration rate/1.73 sq M.pre dicted [Volume Rate/Area] in Serum or Plasma Greater Than 60 GFR[facility]BSA.pred [facility] [place] ([facility]) Note: Responsible Observer: GFR Glomerul ar Filt Rate Calc 400.1605 (D) Creatinine [Moles/volume] in Vitreous fluid 1.1 MilliGramsPerDeciLiter_[Mass_Concentration_Units] Normal Creatinine [place] ([facility]) Note: Responsible Observer: Creatinine C reatinine 400.1600 (G) ID Date Data Source [id number] 04/12/2020 06:40:00 AM EDT [place] ([facility]) Name Value Range Interpretation Code Description Data Shelly rce(s) Supporting Document(s) Erythrocyte mean corpuscular volume [Ent itic volume] in Cord blood by Automated count 91.5 FemtoLiter_[SI_Volume_Units] Normal MCV Bld Co Auto [place] ([facility]) Note: Responsible Observer: MCV MCV 100 .0600 (B) Erythrocyte distribution width [Entitic volume] by Automated cou nt 13 percent Normal RDW RBC Auto [place] ([facility]) Note: Responsible Observer: RDW RDW 100 .0900 (B) Manual Differential panel - Blood Manual Diff Added Manual diff d [place] ([facility]) Note: Responsible Observer: CBC Manual D ifferential Added 100.1990 (B) Platelet mean volume [Entitic volume] in Blood 9.5 FemtoLite r_[SI_Volume_Units] Normal PMV d [place] ([facility]) Note: Responsible Observer: MPV MPV 100 .1100 (B) Immature granulocytes [Presence] in Blood by Automated count See No te Normal Imm Granulocytes Bld Ql Auto [place] ([facility]) Note: [id number] Ob time study observer: IG% IG% 100.1375 (B) Hematocrit [Volume Fraction] of Blood by Automated count 44.4 perce nt Normal Hct VFr Bld Auto [place] ([facility]) Note: Responsible Observer: HEMATOCRIT H EMATOCRIT 100.0500 (B) Erythrocyte mean corpuscular hemoglobin concentration [Mass/volume] in Cord blood 33.1 GramsPerDeciLiter_[Mass_Concentration_Units] Normal MCHC BldCo-mCnc [place] ([facility]) Note: Responsible Observer: MCHC MCHC 1 00.0800 (B) Immature granulocytes [#/volume] in Blood by Automated count 0.1 Un it Imm Granulocytes # d Auto [place] ([facility]) Note: Responsible Observer: IG# IG# 100 .1400 (B) Monocytes/100 leukocytes in Blood by Automated count 1.2 percent Below low normal Monocytes/leuk NFr Bld Auto [place] ([facility]) Note: Responsible Observer: MONO % MONO % 100.1225 (B) Hemoglobin [Moles/volume] in Blood 14.7 GramsPerDeciLiter_[Mass_Concentration_Units] Normal Hgb Bld-sCnc [place] ([facility]) Note: Responsible Observer: HGB HEMOGLOB IN 100.0400 (B) Leukocytes [#/volume] in Blood by Automated count 14.6 ThousandsPerMicroLiter_[Number_Concentration_Units] Above hi gh normal WBC # Bld Auto [place] ([facility]) Note: Responsible Observer: WBC WHITE BL OOD COUNT 100.0100 (E) Basophils [#/volume] in Blood by Automated count 0.0 Unit Normal Basophils # Bld Auto [place] ([facility]) Note: Responsible Observer: BASO # BASO# 100.1350 (B) Basophils/100 leukocytes in Blood by Automated count 0.1 percent Below low normal Basophils/leuk NFr Bld Auto [place] ([facility]) Note: Responsible Observer: BASO % BASO % 100.1325 (B) Eosinophils [#/volume] in Blood by Automated count 0.0 Unit Normal Eosinophil # Bld Auto [place] ([facility]) Note: Responsible Observer: EOS # EOS# 100.1300 (D) Eosinophils/100 leukocytes in Blood by Automated count 0.0 percent Normal Eosinophil/leuk NFr Bld Auto [place] ([facility]) Note: Responsible Observer: EOS % EOS % 100.1275 (B) Lymphocytes [#/volume] in Blood by Automated count 0.6 Unit Normal Lymphocytes # Bld Auto [place] ([facility]) Note: Responsible Observer: LYMPH # LYMP H# 100.1200 (B) Lymphocytes/100 leukocytes in Blood by Automated count 4.2 perce nt Below low normal Lymphocytes/leuk NFr Bld Auto [place] ([facility]) Note: Responsible Observer: LYMPH % LYMP H % 100.1175 (B) Monocytes [#/volume] in Blood by Automated count 0.2 Unit Normal Monocytes # Bld Auto [place] ([facility]) Note: Responsible Observer: MONO # MONO# 100.1250 (C) Neutrophils [#/volume] in Blood by Automated count 13.8 Unit Above high normal Neutrophils # Bld Auto [place] ([facility] ) Note: Responsible Observer: NEUT# NEUT# 100.1150 (B) Neutrophils/100 leukocytes in Blood by Automated count 94.0 perc ent Above high normal Neutrophils/leuk NFr Bld Auto [facility] ([facility]) Note: @PERFORM SLIDE SCAN IF NOT AGREE M AN DIFF@DOCUMENT SLIDE SCAN COMMENTResponsible Observer: NEUT% NEUT% 100.1125 (B) Platelets [#/volume] in Blood by Automated count 235 ThousandsPerMicroLiter_[Number_Concentration_Units] Normal Platelet # Bld Auto [facility] ([facility]) Note: Responsible Observer: PLATELET COU NT PLATELET COUNT 100.1000 (D) Erythrocyte mean corpuscular hemoglobin [Entitic mass] by Automated count 30.3 PicoGram_[SI_Mass_Units] Normal MCH RBC Qn Auto [place] ([facility]) Note: Responsible Observer: MCH MCH 100 .0700 (B) Erythrocytes [#/volume] in Blood by Automated count 4. 85 MillionsPerMicroLiter_[Number_Concentration_Units] Normal RBC # Bld Auto [place] ([facility]) Note: Responsible Observer: RBC Red Bloo d Count 100.0300 (B) NUCLEATED RED BLOOD CELL# 0 Unit NUCLEATED RED BLOOD CELL# [place] ([facility]) Note: Responsible Observer: NRBC# NUCLEA SABRINA RBC 100.1362 (A) NUCLEATED RED BLOOD CELL 0 percent NUCLEATED R ED BLOOD CELL [place] ([facility]) Note: Responsible Observer: NRBC% NRBC% 100.1360 (B) Notes [TIMP] See Note NOTES [place] ([facility]) Note: @04/12/20 0729: MANUAL DIFF added. RFLXG = DIFF. ID Date Data Source [id number] 04/12/2020 12:34:00 AM T [facility] @ RYAN DATE was changed from 04/12/20 to 04/11/20@ by SHEEBA. Old specimen was [id number]. Name Value Range Interpretation Code Description Data Shelly rce(s) Supporting Document(s) Troponin I.cardiac [Mass/volume] in Serum or Plasma Less Than 0.015 0.00-0.09 N [facility] Less than 0.09 NG/ML Negative0.10 - 0.77 NG/ML High Risk0.78 NG/ML or Greater PositiveThe WHO defined the cutoff (definition for diagnosis of IA)for this method as 0.78 ng/ml. ID Date Data Source [id number] 04/11/2020 10:42:00 PM [facility] @04/11/20 1840: 4hr Lactic Acid added. R FLXG = RFX LACTIC. Name Value Range Interpretation Code Description Data Shelly rce(s) Supporting Document(s) Lactate [Mass/volume] in Serum or Plasma 1.7 mmol/L 0.5-2.2 N [facility] A HIGH RESULT ON THIS 4HR LACTIC ACID WI LL NOT REFLEXANOTHER - YOU MUST ORDER ONE IF YOU WANT IT REPEATED ID Date Data Source [id number] 04/11/2020 10:10:00 PM EDT [place] ([facility]) Name Value Range Interpretation Code Description Data Shelly rce(s) Supporting Document(s) Reported Physicians See Note Reported Physicalejandra ramey [place] ([facility]) Note: Reported Physicians:Ordering: Kian ArguelloAttending: Shruthi De SouzakramAdmitting: Shruthi De SouzakrniurkaCopy To: Esha Talamantes ID Date Data Source [id number] 04/11/2020 10:10:00 PM EDT [place] ([facility]) Name Value Range Interpretation Code Description Data Shelly rce(s) Supporting Document(s) Lactate [Mass/volume] in Serum or Plasma 1.7 MilliMolesPerLiter_[Substance_Concentration_Units] Normal Lactate SerPl-[facility] ([facility]) Note: A HIGH RESULT ON THIS 4HR LACTIC A PIPO WILL NOT REFLEXANOTHER - YOU MUST ORDER ONE IF YOU WANT IT REPEATEDResponsible Observer: 4HR LACTIC RPT 4HR LACTIC ACID 400.2840 (G) Notes [TIMP] See Note NOTES [place] ([facility]) Note: @04/11/20 1840: 4hr Lactic Acid ad ded. RFLXG = RFX LACTIC. ID Date Data Source [id number] 04/11/2020 10:10:00 PM EDT [place] ([facility]) Name Value Range Interpretation Code Description Data Shelly rce(s) Supporting Document(s) Reported Physicians See Note [facility] Note: Reported Physicians:Ordering: Marly Ferrarattending: Jeremiah, VikramAdmitting: Jeremiah, VikramCopy To: Jeremiah, VikramCopy To: Esha Talamantes ID Date Data Source [id number] 04/11/2020 10:10:00 PM EDT [place] ([facility]) Name Value Range Interpretation Code Description Data Shelly rce(s) Supporting Document(s) Troponin I.cardiac [Mass/volume] in Serum or Plasma Less Than 0.015 Normal Troponin I [facility] ([facility]) Note: Less than 0.09 NG/ML Negative 0.10 - 0.77 NG/ML High Risk0.78 NG/ML or Greater PositiveThe WHO defined the cutoff (definition for diagnosis of IA)for this method as 0.78 ng/ml.Responsible Observer: Troponin I Troponin I 600.1101 (G) Notes [TIMP] See Note NOTES [place] ([facility]) Note: @ RYAN DATE was changed from 04/12 to 04/11/20@ by SHEEBA. Old specimen was [id number]. ID Date Data Source [id number] 04/11/2020 10:05:00 PM EDT [facility] TOBAR COVID-19 IS AN ISOTHERMAL NA A TECHNOLOGYNORMAL VALUE IS "SARS-COV-2 COVID 19 NOT DETECTED"False negative results may occur if a specimen is improperlycollected,transported or handled.False negative results may also occur if amplicationinhibitors are present in the specimen or if inadequatelevels of viruses are present in the specimen.As with any molecular test, if the virus mutates in [facility], Covid-19 may not be detected or [...] rce(s) Supporting Document(s) ID Date Data Source [id number] 04/11/2020 09:30:00 PM EDT [place] ([facility]) Name Value Range Interpretation Code Description Data Shelly rce(s) Supporting Document(s) Reported Physicians See Note Reported Physici ans [place] ([facility]) Note: Reported Physicians:Ordering: Kian ArguelloAttending: John De Souzaitting: Pete De Souza To: Esha Talamantes ID Date Data Source [id number] 04/11/2020 09:30:00 PM EDT [place] ([facility]) Name Value Range Interpretation Code Description Data Shelly rce(s) Supporting Document(s) TOBAR COVID-19 SCHOOL See Note TOBAR COVID- 19 SCHOOL [place] ([facility]) Note: TOBAR COVID-19 IS AN ISOTHER MAL KRISTEN TECHNOLOGYNORMAL VALUE IS "SARS-COV-2 COVID 19 NOT DETECTED"False negative results may occur if a specimen is improperlycollected,transported or handled.False negative results may also occur if amplicationinhibitors are present in the specimen or if inadequatelevels of viruses are present in the specimen.As with any molecular test, if the virus mutates in [facility], Covid-19 may not be detected or may bedetected less predictably.ID NOW COVID-19 is intended for testing a swab directlywithout elution in viral transport media as dilution willresult in decreased detection of low positive samples thatare near the limit of detection of the test.SWAB SAMPLES ELUTED IN VTM ARE NOT APPROPRIATE FOR USE INTHIS TEST.NOSNo Organisms [id number] Organisms Detected ID Date Data Source [id number] 04/11/2020 09:17:00 PM EDT [facility] Name: TOLU RATLIFF : 1955 Age: 64 MR#: [id number] Admit Date: 04/11/20 Provider: Leonardo Alonso Room [...] 30 years old and [facility] in [place]. He reported being replaced before on anticoagulation [...] drug use. Family History: Father due to IA at age 7979 year old, he had [...] mg PO DAILY 04/11/20 04/11/20 04/11/20 History nuclyxnpdnsz-jdkypdng-ldzmge 1 tab PO DAILY 04/11/20 04/11/20 04/11/20 [...] 91 L 04/11/20 19:00 91 18 99 10/24/20 18:50 89 18 94 L 04/11/20 18:15 [...] % (Auto) 68.7, Lymph % (Auto) 20.9, [place] % (Auto) 8.4, Eos % (Auto) 1.2, [...] Appearance Clear, Urine pH 5.0, Ur Specific [place] 1.010,Urine Protein Negative, Urine Ketones Negative, Urine [...] The patient needs to follow up with rug inspector as regard to his DM that might [...] rce(s) Supporting Document(s) ID Date Data Source [id number] 04/11/2020 08:56:00 PM EDT [facility] [address] [place] [address] [phone] NAME SEX PT STATUS ACCOUNT NUMBER TOLU RATLIFF [facility] [id number] ORDERING PHYSICIAN LOCATION MEDICAL RECORD NO. Scott Mei MD ER [id number] ATTENDING PHYSICIAN DATE OF DATE OF EXAM/TIME [...] Trans Dt/Tm: Trans by: JERRY Prt Dt/Tm: 5444-5465: Total DLP = 407.00 mGy-cm 3471-3675: Total Radiation Dose = 2.4013 mSv Lifetime Dose: 4.5186 mSv Name Value Range Interpretation Code Description Data Shelly rce(s) Supporting Document(s) ID Date Data Source [id number] 04/11/2020 08:08:00 PM EDT [facility] Reason for ordering culture: Abnormal fi ndings UAMethod of Collection:: Voided Name Value Range Interpretation Code Description Data Shelly rce(s) Supporting Document(s) Color of Urine [facility] Appearance of Urine CLEAR [facility] pH of Urine by Test strip 5.0 5-8 [facility] Specific gravity of Urine by Refractometry 1.010 1.005-1.030 [facility] Leukocyte esterase [Presence] in Urine by Test strip NEGAT ELVIA [facility] Nitrite [Presence] in Urine by Test strip NEGATIVE [facility] Protein [Presence] in Urine by Test strip NEGATIVE [facility] Glucose [Mass/volume] in Urine by Automated test strip NEGATIVE NEG ATIVE [facility] Ketones [Presence] in Urine by Test strip NEGATIVE [facility] Urobilinogen [Presence] in Urine 0.2-1 EU/dl [facility] Bilirubin.total [Presence] in Urine by Automated test strip NEGATIVE [facility] Erythrocytes [#/volume] in Urine by Test strip NEGATIVE NEGATIVE [facility] URINE MICROSCOPIC? (CIF) NO [facility] ID Date Data Source [id number] [facility]2020 [facility]59[facility] Name Value Range Interpretation Code Description Data Shelly rce(s) Supporting Document(s) Reported Physicians See Note Reported Physici ans [place] ([facility]) Note: Reported Physicians:Ordering: Kian ArguelloAttending: Talita Cannon To: Esha Talamantes ID Date Data Source [id number] 04/11/2020 07:59:00 [facility] Name Value Range Interpretation Code Description Data Shelly rce(s) Supporting Document(s) Urobilinogen [Presence] in Urine See Note Uro bilinogen Ur Ql [place] ([facility]) Note: 0.2 EU/dl0.2 [id number] E U/dlResponsible Observer: UROBILINOGEN UROBILINOGEN 300.4500 (C) Erythrocytes [#/volume] in Urine by Test strip NEGATIVE RBC # Ur Strip [place] ([facility]) Note: Responsible Observer: BLOOD BLOOD 300.4652 (C) Protein [Presence] in Urine by Test strip See Note Prot Ur Ql Strip [place] ([facility]) Note: [id number] EResponsible Observer: PROTEIN PROTEIN 300.3750 (C) Ketones [Presence] in Urine by Test strip See Note Ketones Ur Ql Strip [place] ([facility]) Note: [id number] EResponsible Observer: KETONE KETONE 300.3900 (C) Bilirubin.total [Presence] in Urine by Automated test strip See Not e Bilirub Ur Ql Strip.auto [place] ([facility]) Note: [id number] EResponsible Observer: BILIRUBIN BILIRUBIN 300.4550 (C) Glucose [Mass/volume] in Urine by Automated test strip NEGATIVE Glucose Ur Strip.auto-mCnc [place] ([facility]) Note: Responsible Observer: GLUCOSE GLUC OSE 300.3850 (C) Appearance of Urine See Note [facility] Note: CLEARCLEARLCLEARResponsible Observ er: APPEARANCE APPEARANCE 300.3400 (A) Color of Urine See Note Color Ur [place] ([facility] Note: YELLOWYELLOWLYELLOWResponsible Obs erver: COLOR COLOR 300.3330 (A) Leukocyte esterase [Presence] in Urine by Test strip See Note Leukocyte esterase Ur Ql Strip [place] ([facility]) Note: [id number] EResponsible Observer: LEUKOCYTES LEUKOCYTES 300.3576 (C) Nitrite [Presence] in Urine by Test strip See Note Nitrite Ur Ql Strip [place] ([facility]) Note: [id number] EResponsible Observer: NITRITE NITRITE 300.3652 (B) pH of Urine by Test strip 5.0 pH Ur Stri p [place] ([facility]) Note: Responsible Observer: PH PH 300.3 450 (C) Specific gravity of Urine by Refractometry 1.010 Sp Gr Ur Refractometry [place] ([facility]) Note: Responsible Observer: SP GRAVITY U RINE SPECIFIC GRAVITY-MAN 300.3475 (C) URINE MICROSCOPIC? (CIF) NO URINE MICRO SCOPIC? (CIF) [place] ([facility]) Note: Responsible Observer: UA URINE KEENAN ROSCOPIC PENDING 300.4665 (D) Notes [TIMP] See Note NOTES [place] ([facility]) Note: Reason for ordering culture: Abnor mal findings UAMethod of Collection:: Voided ID Date Data Source [id number] 04/11/2020 07:16:00 PM EDT [facility] [employer] [facility] [address] [place] [address] [phone] NAME SEX PT STATUS ACCOUNT NUMBER Tolu Ratliff [facility] ER [id number] ORDERING PHYSICIAN LOCATION MEDICAL RECORD NO. Kian Cannon MD ER [id number] ATTENDING PHYSICIAN DATE OF DATE OF EXAM/TIME [...] Trans Dt/Tm: Trans by: DT Prt Dt/Tm: 3682-3524: Total DLP = 683.00 mGy-cm 7353-7236: Total Radiation Dose = 2.1173 mSv Lifetime Dose: 2.1173 mSv Name Value Range Interpretation Code Description Data Shelly rce(s) Supporting Document(s) ID Date Data Source [id number] 04/11/2020 06:34:00 PM EDT [facility] [address] [id number] [phone] NAME SEX PT STATUS ACCOUNT NUMBER Tolu Ratliff [facility] ER [id number] ORDERING PHYSICIAN LOCATION MEDICAL RECORD NO. Kian Cannon MD ER [id number] ATTENDING PHYSICIAN DATE OF DATE OF EXAM/TIME [...] Trans Dt/Tm: Trans by: DT Prt Dt/Tm: 9042-8768: Total DLP = 0.00 mGy-cm Fluoroscopy Time (in secs): Name Value Range Interpretation Code Description Data Shelly rce(s) Supporting Document(s) ID Date Data Source [id number] 04/11/2020 06:40[facility] may order repe at test if initial test elevatedPhysician If elevated, reflex second test in 4-6 hrs Name Value Range Interpretation Code Description Data Shelly rce(s) Supporting Document(s) Lactic w Rfx (if elevated) 2.1 mmol/L 0.5-2.2 N [facility] Called to RYAN @ 1835 by Carlos Child. Results readback. ID Date Data Source [id number] 04/16/2020 05:57:00 PM [facility] Special Instructions: Lab may order repe at test if initial test elevatedPhysician If elevated, reflex second test in 4-6 hrs Name Value Range Interpretation Code Description Data Shelly rce(s) Supporting Document(s) Bacteria identified in Blood by Culture [facility] NO GROWTH AFTER 5 DAYS ID Date Data Source [id number] 04/11/2020 11:28:00 PM [facility] Special Instructions: from the last lab sample, otherwise, from the next Name Value Range Interpretation Code Description Data Shelly rce(s) Supporting Document(s) Erythrocyte sedimentation rate by Westergren method 13 mm/hr 0-20 N [facility] @[place] manual test result: 13@by Tori Schultz at 04/11/20 2328. ID Date Data Source [id number] 04/11/2020 06:00:00 PM EDT [facility] Name Value Range Interpretation Code Description Data Shelly rce(s) Supporting Document(s) Leukocytes [#/volume] in Blood by Automated count 10.4 10*3/uL 4.45-1 0.71 N [facility] Erythrocytes [#/volume] in Blood by Automated count 5.03 10*6/uL 4.3- 6.1 N [facility] Hemoglobin [Moles/volume] in Blood 15.5 g/dL 13-18 N [facility] Hematocrit [Volume Fraction] of Blood by Automated count 46.2 % 4 2-52 N [facility] Erythrocyte mean corpuscular volume [Ent itic volume] in Cord blood by Automated count 91.8 fL 80-96 N [facility] ital Erythrocyte mean corpuscular hemoglobin [Entitic mass] by Automated count 30.8 pg 27-31 N [facility] l Erythrocyte mean corpuscular hemoglobin concentration [Mass/volume] in Cord blood 33.5 g/dL 33-37 N [facility] Erythrocyte distribution width [Entitic volume] by Automated count 12 % 11-15 N [facility] Platelets [#/volume] in Blood by Automated count 243 10*3/uL 130-472 N [facility] Platelet mean volume [Entitic volume] in Blood 9.3 fL 9.1-13.1 N [facility] Neutrophils/100 leukocytes in Blood by Automated count 68.7 % 41- 77 N [facility] Neutrophils [#/volume] in Blood by Automated count 7.2 U 1.7-7.6 N [facility] Lymphocytes/100 leukocytes in Blood by Automated count 20.9 % 14- 46 N [facility] Lymphocytes [#/volume] in Blood by Automated count 2.2 U 0.6-4.6 N [facility] Monocytes/100 leukocytes in Blood by Automated count 8.4 % 4-12 N [facility] Monocytes [#/volume] in Blood by Automated count 0.9 U 0.2-1.2 N [facility] Eosinophils/100 leukocytes in Blood by Automated count 1.2 % 0-7 N [facility] Eosinophils [#/volume] in Blood by Automated count 0.1 U 0.0-0.5 N [facility] Basophils/100 leukocytes in Blood by Automated count 0.5 % 0.4-1 .3 N [facility] Basophils [#/volume] in Blood by Automated count 0.1 U 0.0-0.2 N [facility] NUCLEATED RED BLOOD CELL 0 % [facility] NUCLEATED RED BLOOD CELL# 0 U [facility] Immature granulocytes [Presence] in Blood by Automated count 0-2 N [facility] Immature granulocytes [#/volume] in Blood by Automated count 0.0 U 0-0.1 N [facility] Manual Differential panel - Blood NO [facility] ID Date Data Source [id number] 04/11/2020 06:25:00 PM EDT [facility] Name Value Range Interpretation Code Description Data Shelly rce(s) Supporting Document(s) Urea nitrogen [Mass/volume] in Serum or Plasma 17 mg/dL 9-23 N [facility] Sodium [Moles/volume] in Serum or Plasma 138 mmol/L 132-146 [facility] Potassium [Moles/volume] in Serum or Plasma 3.9 mmol/L 3.5-5.5 [facility] Chloride [Moles/volume] in Serum or Plasma 103 mmol/L 99-109 [facility] Carbon dioxide, total [Moles/volume] in Serum or Plasma 26 mmol/L 20 -31 [facility] Anion gap in Serum or Plasma 13 mmol/L 8-16 [facility] Glucose [Mass/volume] in Serum or Plasma 150 mg/dL 74-106 Above high normal [facility] Creatinine 1.0 mg/dL 0.5-1.1 [facility] Glomerular filtration rate/1.73 sq M.pre dicted [Volume Rate/Area] in Serum or Plasma Greater Than 60 ABOVE 60 [facility] Alanine aminotransferase [Enzymatic acti vity/volume] in Serum or Plasma by With P-5'-P 33 U/L 10-49 N [facility] ital Aspartate aminotransferase [Enzymatic ac tivity/volume] in Serum or Plasma by With P-5'-P 15 U/L 0-33 N [facility] pital Alkaline phosphatase [Enzymatic activity/volume] in Serum or Plasma 60 U/L 45-129 N [facility] Calcium [Mass/volume] in Serum or Plasma 9.4 mg/dL 8.5-10.1 N [facility] Bilirubin.total [Mass/volume] in Serum or Plasma 0.8 mg/dL 0.3-1.2 N [facility] Albumin [Mass/volume] in Serum or Plasma by Bromocresol purple (BCP) dye binding method 3.8 g/dL 3.2-4.8 N [facility] ital Protein [Mass/volume] in Serum or Plasma 8.0 g/dL 5.7-8.2 N [facility] ID Date Data Source [id number] 04/11/2020 06:25:00 PM EDT [facility] Name Value Range Interpretation Code Description Data Shelly rce(s) Supporting Document(s) Troponin I.cardiac [Mass/volume] in Serum or Plasma Less Than 0.015 0.00-0.09 N [facility] Less than 0.09 NG/ML Negative0.10 - 0.77 NG/ML High Risk0.78 NG/ML or Greater PositiveThe WHO defined the cutoff (definition for diagnosis of IA)for this method as 0.78 ng/ml. ID Date Data Source [id number] 04/11/2020 06:24:00 PM EDT [facility] Name Value Range Interpretation Code Description Data Shelly rce(s) Supporting Document(s) Magnesium [Mass/volume] in Serum or Plasma 2.3 mg/dL 1.3-2.7 N [facility] ID Date Data Source [id number] 04/11/2020 06:23:00 PM EDT [facility] Name Value Range Interpretation Code Description Data Shelly rce(s) Supporting Document(s) Creatine kinase [Enzymatic activity/volume] in Serum or Plasma 158 U/L 33-211 N [facility] Creatine kinase.MB [Enzymatic activity/volume] in Serum or P lasma 3.8 ng/mL 0.0-5.0 N [facility] Chemistry studies (set) 2.4 % [facility] ID Date Data Source [id number] [facility]2020 [facility]55[facility] Name Value Range Interpretation Code Description Data Shelly rce(s) Supporting Document(s) Reported Physicians See Note Reported Physici ans [place] ([facility]) Note: Reported Physicians:Ordering: Kian ArguelloAttending: Ancelmo De SouzaamAdmitting: Pete De Souza To: Esha Talamantes ID Date Data Source [id number] 04/11/2020 05:55:00 PM EDT [place] ([facility]) Name Value Range Interpretation Code Description Data Shelly rce(s) Supporting Document(s) Bacteria identified in Blood by Culture See Note Bacteria d [facility] ([facility]) Note: NG5DNo growth.[id number] GROWTH AFTE R 5 DAYS ID Date Data Source [id number] 04/11/2020 05:55:00 PM EDT [place] ([facility]) Name Value Range Interpretation Code Description Data Shelly rce(s) Supporting Document(s) Bacteria identified in Blood by Culture See Note Bacteria Bld Cult [place] ([facility]) Note: NG5DNo growth.[id number] GROWTH AFTE R 5 DAYS ID Date Data Source [id number] 04/11/2020 05:55:00 PM EDT [place] ([facility]) Name Value Range Interpretation Code Description Data Shelly rce(s) Supporting Document(s) Lactic w Rfx (if elevated) 2.1 MilliMolesPerLiter_[Substance_Concentration_Units] Normal Lactic w Rfx (if elevated) [facility]) Note: Called to RYAN @ 1835 by Tori Kenny. Results readback.Responsible Observer: Lactic Acid Lactic Acid 400.2831 (G) Notes [TIMP] See Note NOTES [place] ([facility]) Note: Special Instructions: Lab may orde r repeat test if initial test elevatedPhysician If elevated, reflex second test in 4-6 hrs ID Date Data Source [id number] 04/11/2020 05:55:00 PM EDT [place] ([facility]) Name Value Range Interpretation Code Description Data Shelly rce(s) Supporting Document(s) Reported Physicians See Note Reported Physici ans [place] ([facility]) Note: Reported Physicians:Ordering: Kian ArguelloAttending: Talita Cannon To: Esha Talamantes ID Date Data Source [id number] 04/11/2020 05:55:00 PM EDT [place] ([facility]) Name Value Range Interpretation Code Description Data Shelly rce(s) Supporting Document(s) Alanine aminotransferase [Enzymatic acti vity/volume] in Serum or Plasma by With P-5'-P 33 enzyme_unit_per_liter Normal ALT [facility] [place] ([facility]) Note: Responsible Observer: SGPT/ALT SGP T/ALT 400.1750 (G) Calcium [Mass/volume] in Serum or Plasma 9.4 MilliGramsPerDeciLiter_[Mass_Concentration_Units] Normal Calcium [facility] ([facility]) Note: Responsible Observer: Calcium Calc ium 400.2500 (G) Bilirubin.total [Mass/volume] in Serum or Plasma 0.8 MilliGramsPerDeciLiter_[Mass_Concentration_Units] Normal Bilirub [facility] ([facility]) Note: Responsible Observer: T ABDIRAHMAN Total Bilirubin 400.2600 (G) Carbon dioxide, total [Moles/volume] in Serum or Plasm a 26 MilliMolesPerLiter_[Substance_Concentration_Units] Normal CO2 [facility] ([facility]) Note: Responsible Observer: CO2 Carbon D ioxide 400.1400 (G) Chloride [Moles/volume] in Serum or Plasma 103 MilliMolesPerLiter_[Substance_Concentration_Units] Normal Chloride [facility] ([facility]) Note: Responsible Observer: Chloride Chl oride 400.1250 (G) Glucose [Mass/volume] in Serum or Plasma 150 MilliGramsPerDeciLiter_[Mass_Concentration_Units] Above high normal Glucose [facility] ([facility]) Note: Responsible Observer: Glucose Gluc ose 400.1500 (G) Potassium [Moles/volume] in Serum or Plasma 3.9 MilliMolesPerLiter_[Substance_Concentration_Units] Normal Potassium [facility] ([facility]) Note: Responsible Observer: K Potassium 400.1210 (G) Protein [Mass/volume] in Serum or Plasma 8.0 GramsPerDeciLiter_[Mass_Concentration_Units] Normal Pro t [facility] ([facility]) Note: Responsible Observer: TP Total Pro tein 400.2800 (G) Sodium [Moles/volume] in Serum or Plasma 138 MilliMolesPerLiter_[Substance_Concentration_Units] Normal Sodium [facility] ([facility]) Note: Responsible Observer: Sodium Sodiu m 400.1100 (G) Aspartate aminotransferase [Enzymatic ac tivity/volume] in Serum or Plasma by With P-5'-P 15 enzyme_unit_per_liter Normal AST [facility] w P-5' -P-[facility] ([facility]) Note: Responsible Observer: SGOT / AST S GOT / AST 400.1900 (G) Urea nitrogen [Mass/volume] in Serum or Plasma 17 MilliGramsPerDeciLiter_[Mass_Concentration_Units] Normal BUN [facility] ([facility]) Note: Responsible Observer: BUN Blood Ur ea Nitrogen 400.1000 (G) Anion gap in Serum or Plasma 13 MilliMolesPerLiter_[Substance_Concentration_Units] Normal Anion Gap [facility] ([facility]) Note: Responsible Observer: ANION GAP AN ION GAP 400.1402 (E) Albumin [Mass/volume] in Serum or Plasma by Bromocresol purple (BCP) dye binding method 3.8 GramsPerDeciLiter_[Mass_Concentration_Units] Normal Albumin [facility] ([facility]) Note: Responsible Observer: Albumin [place] 400.2700 (G) Alkaline phosphatase [Enzymatic activity/volume] in Se rum or Plasma 60 enzyme_unit_per_liter Normal ALP [facility] ( [facility]) Note: Responsible Observer: ALP Alkaline Phosphatase 400.2000 (G) Glomerular filtration rate/1.73 sq M.pre dicted [Volume Rate/Area] in Serum or Plasma Greater Than 60 GFR/BSA.pred [facility] [place] ([facility]) Note: Responsible Observer: GFR Glomerul ar Filt Rate Calc 400.1605 (D) Creatinine [Moles/volume] in Vitreous fluid 1.0 MilliGramsPerDeciLiter_[Mass_Concentration_Units] Normal Creatinine [place] ([facility]) Note: Responsible Observer: Creatinine C reatinine 400.1600 (G) ID Date Data Source [id number] 04/11/2020 05:55:00 PM EDT [place] ([facility]) Name Value Range Interpretation Code Description Data Shelly rce(s) Supporting Document(s) Erythrocyte mean corpuscular volume [Ent itic volume] in Cord blood by Automated count 91.8 FemtoLiter_[SI_Volume_Units] Normal MCV Bld Co Auto [place] ([facility]) Note: Responsible Observer: MCV MCV 100 .0600 (B) Erythrocyte distribution width [Entitic volume] by Automated cou nt 12 percent Normal RDW RBC Auto [place] ([facility]) Note: Responsible Observer: RDW RDW 100 .0900 (B) Manual Differential panel - Blood NO Ma nual diff Bld [place] ([facility]) Note: Responsible Observer: CBC Manual D ifferential Added 100.1990 (B) Platelet mean volume [Entitic volume] in Blood 9.3 FemtoLite r_[SI_Volume_Units] Normal PMV Bld [place] ([facility]) Note: Responsible Observer: MPV MPV 100 .1100 (B) Immature granulocytes [Presence] in Blood by Automated count See No te Normal Imm Granulocytes Bld Ql Auto [place] ([facility]) Note: [id number] Ob time study observer: IG% IG% 100.1375 (B) Hematocrit [Volume Fraction] of Blood by Automated count 46.2 perce nt Normal Hct VFr Bld Auto [place] ([facility]) Note: Responsible Observer: HEMATOCRIT H EMATOCRIT 100.0500 (B) Erythrocyte mean corpuscular hemoglobin concentration [Mass/volume] in Cord blood 33.5 GramsPerDeciLiter_[Mass_Concentration_Units] Normal MCHC BldCo-mCnc [place] ([facility]) Note: Responsible Observer: MCHC MCHC 1 00.0800 (B) Immature granulocytes [#/volume] in Blood by Automated count 0.0 Un it Imm Granulocytes # Bld Auto [place] ([facility]) Note: Responsible Observer: IG# IG# 100 .1400 (B) Monocytes/100 leukocytes in Blood by Automated count 8.4 percent Normal Monocytes/leuk NFr Bld Auto [facility] ([facility]) Note: Responsible Observer: MONO % MONO % 100.1225 (B) Hemoglobin [Moles/volume] in Blood 15.5 GramsPerDeciLiter_[Mass_Concentration_Units] Normal Hgb Bld-sCnc [place] ([facility]) Note: Responsible Observer: HGB HEMOGLOB IN 100.0400 (B) Leukocytes [#/volume] in Blood by Automated count 10.4 ThousandsPerMicroLiter_[Number_Concentration_Units] Normal WBC # Bld Auto [facility] ([facility]) Note: Responsible Observer: WBC WHITE BL OOD COUNT 100.0100 (E) Basophils [#/volume] in Blood by Automated count 0.1 Unit Normal Basophils # Bld Auto [place] ([facility]) Note: Responsible Observer: BASO # BASO# 100.1350 (B) Basophils/100 leukocytes in Blood by Automated count 0.5 percent Normal Basophils/leuk NFr Bld Auto [place] ([facility]) Note: Responsible Observer: BASO % BASO % 100.1325 (B) Eosinophils [#/volume] in Blood by Automated count 0.1 Unit Normal Eosinophil # Bld Auto [place] ([facility]) Note: Responsible Observer: EOS # EOS# 100.1300 (D) Eosinophils/100 leukocytes in Blood by Automated count 1.2 percent Normal Eosinophil/leuk NFr Bld Auto [place] ([facility]) Note: Responsible Observer: EOS % EOS % 100.1275 (B) Lymphocytes [#/volume] in Blood by Automated count 2.2 Unit Normal Lymphocytes # Bld Auto [place] ([facility]) Note: Responsible Observer: LYMPH # LYMP H# 100.1200 (B) Lymphocytes/100 leukocytes in Blood by Automated count 20.9 percent Normal Lymphocytes/leuk NFr Bld Auto [place] ([facility]) Note: Responsible Observer: LYMPH % LYMP H % 100.1175 (B) Monocytes [#/volume] in Blood by Automated count 0.9 Unit Normal Monocytes # Bld Auto [place] ([facility]) Note: Responsible Observer: MONO # MONO# 100.1250 (C) Neutrophils [#/volume] in Blood by Automated count 7.2 Unit Normal Neutrophils # Bld Auto [facility] ([facility]) Note: Responsible Observer: NEUT# NEUT# 100.1150 (B) Neutrophils/100 leukocytes in Blood by Automated count 68.7 percent Normal Neutrophils/leuk NFr Bld Auto [place] ([facility]) Note: Responsible Observer: NEUT% NEUT% 100.1125 (B) Platelets [#/volume] in Blood by Automated count 243 ThousandsPerMicroLiter_[Number_Concentration_Units] Normal Platelet # Bld Auto [place] ([facility]) Note: Responsible Observer: PLATELET COU NT PLATELET COUNT 100.1000 (D) Erythrocyte mean corpuscular hemoglobin [Entitic mass] by Automated count 30.8 PicoGram_[SI_Mass_Units] Normal MCH RBC Qn Auto [place] ([facility]) Note: Responsible Observer: MCH MCH 100 .0700 (B) Erythrocytes [#/volume] in Blood by Automated count 5. 03 MillionsPerMicroLiter_[Number_Concentration_Units] Normal RBC # Bld Auto [facility] ([facility]) Note: Responsible Observer: RBC Red Bloo d Count 100.0300 (B) NUCLEATED RED BLOOD CELL# 0 Unit NUCLEATED RED BLOOD CELL# [facility] ([facility]) Note: Responsible Observer: NRBC# NUCLEA SABRINA RBC 100.1362 (A) NUCLEATED RED BLOOD CELL 0 percent NUCLEATED R ED BLOOD CELL [facility] ([facility]) Note: Responsible Observer: NRBC% NRBC% 100.1360 (B) ID Date Data Source [id number] 04/11/2020 05:55:00 PM EDT [facility] ([facility]) Name Value Range Interpretation Code Description Data Shelly rce(s) Supporting Document(s) Reported Physicians See Note Reported Physici ans [place] ([facility]) Note: Reported Physicians:Ordering: Ember Arguelloending: Talita Cannon To: Esha Talamantes ID Date Data Source [id number] 04/11/2020 05:55:00 PM EDT [place] ([facility]) Name Value Range Interpretation Code Description Data Shelly rce(s) Supporting Document(s) Magnesium [Mass/volume] in Serum or Plasma 2.3 MilliGramsPerDeciLiter_[Mass_Concentration_Units] Normal Magn[facility] ([facility]) Note: Responsible Observer: Magnesium Ma gnesium 400.3300 (G) ID Date Data Source [id number] 04/11/2020 05:55:00 PM EDT [place] ([facility]) Name Value Range Interpretation Code Description Data Shelly rce(s) Supporting Document(s) Reported Physicians See Note Reported Physici ans [place] ([facility]) Note: Reported Physicians:Ordering: Pradeep Ferraraending: John De Souzaitting: Pete De Souza To: Pete De Souza To: Esha Talamantes ID Date Data Source [id number] 04/11/2020 05:55:00 PM EDT [place] ([facility]) Name Value Range Interpretation Code Description Data Shelly rce(s) Supporting Document(s) Erythrocyte sedimentation rate by Westergren method 13 Normal ESR Bld Qn [facility] ([facility]) Note: @Reenter manual test result: 13@by Tori Child at 04/11/20 2328.Responsible Observer: SED RATE SED RATE 100.6400 (B) Notes [TIMP] See Note NOTES [place] ([facility]) Note: Special Instructions: from the las t lab sample, otherwise, from the next ID Date Data Source [id number] 04/11/2020 05:55:00 PM EDT [place] ([facility]) Name Value Range Interpretation Code Description Data Shelly rce(s) Supporting Document(s) Reported Physicians See Note Reported [facility] ([facility]) Note: Reported Physicians:Ordering: Kian ArguelloAttending: Talita Cannon To: Esha Talamantes ID Date Data Source [id number] 04/11/2020 05:55:00 PM [facility] ([facility]) Name Value Range Interpretation Code Description Data Shelly rce(s) Supporting Document(s) Chemistry studies (set) 2.4 percent Chemistry s [facility]) Note: Responsible Observer: CK RELATIVE % CK RELATIVE % 600.0055 (A) Creatine kinase [Enzymatic activity/volume] in Serum o r Plasma 158 enzyme_unit_per_liter Normal CK [facility]) Note: Responsible Observer: CK Creatine Kinase 400.9115 (G) Creatine kinase.MB [Enzymatic activity/volume] in Seru m or Plasma 3.8 NanoGramsPerMilliLiter_[Mass_Concentration_Units] Normal CK MB [facility] ([facility]) Note: Responsible Observer: CKMB Creatin e Kinase MB 600.0050 (G) ID Date Data Source [id number] 04/11/2020 05:55:00 PM [facility] ([facility]) Name Value Range Interpretation Code Description Data Shelly rce(s) Supporting Document(s) Reported Physicians See Note Reported Physici [facility] ([facility]) Note: Reported Physicians:Ordering: Kian ArguelloAttending: Talita Cannon To: Esha Talamantes ID Date Data Source [id number] 04/11/2020 05:55:00 PM [facility] ([facility]) Name Value Range Interpretation Code Description Data Shelly rce(s) Supporting Document(s) Troponin I.cardiac [Mass/volume] in Serum or Plasma Less Than 0.015 Normal Troponin I [facility]) Note: Less than 0.09 NG/ML Negative 0.10 - 0.77 NG/ML High Risk0.78 NG/ML or Greater PositiveThe WHO defined the cutoff (definition for diagnosis of IA)for this method as 0.78 ng/ml.Responsible Observer: Troponin I Troponin I 600.1101 (G) ID Date Data Source [id number] 04/11/2020 05:40:00 PM EDT [facility] ED Physician Documentation NAME: TOLU RATLIFF : 1955 AGE: 64 MR#: [id number] SERVICE DATE: 04/11/[address]: Kian Cannon [...] % (Auto) 68.7, Lymph % (Auto) 20.9, [place] % (Auto) 8.4, Eos % (Auto) 1.2, [...] Appearance Clear, Urine pH 5.0, Ur Specific [place] 1.010,Urine Protein Negative, Urine Ketones Negative, Urine [...] % (Auto) 68.7, Lymph % (Auto) 20.9, [place] % (Auto) 8.4, Eos % (Auto) 1.2, [...] Appearance Clear, Urine pH 5.0, Ur Specific [place] 1.010,Urine Protein Negative, Urine Ketones Negative, Urine [...] Discharge Detail Disposition: Admit to Critical Access [facility] Medications Medication reconciliation performed by provider at discharge: Yes *Discharge Patient* Discharge Orders: Provider hand off (NOW); Ordered 04/11/20 Ordered By: Scott Mei Report Signers: <Electronically signed by Kian Cannon MD> Kian Cannon MD 04/12/20 0742 Kian Cannon MD SIGNATURE DA Report Cosigners: <Electronically signed by Scott Mei MD> Scott Mei MD 04/11/202109 D: TASIA 04/11/201739 [facility]2017[facility] CC: Esha Talamantes M.D. Name Value Range Interpretation Code Description Data Shelly rce(s) Supporting Document(s) ID Date Data Source [id number] 04/11/2020 12:00:00 AM EDT [facility] Name Value Range Interpretation Code Description Data Shelly rce(s) Supporting Document(s) SARS-CoV2 Rapid PCR [facility] This lab was ordered by [facility] and reported by [facility]. ID Date Data Source [id number] 08/12/2019 07:48:00 AM EST [facility] ([facility]) Name Value Range Interpretation Code Description Data Shelly rce(s) Supporting Document(s) Reported Physicians See Note Reported Physici ans [place] ([facility]) Note: Reported Physicians:Ordering: Beard e, Esha AAttending: VINITA, JOCELYNConsulting: VINITA, JOCELYNCopy To: Esha Talamantes ID Date Data Source [id number] 08/12/2019 07:48:00 AM EST [facility] ([facility]) Name Value Range Interpretation Code Description Data Shelly rce(s) Supporting Document(s) CPK 102 U/L CPK ELIZABETH ([facility]) Note: Responsible Observer: () ID Date Data Source [id number] 08/12/2019 07:48:00 AM EST ELIZABETH ([facility]) Name Value Range Interpretation Code Description Data Shelly rce(s) Supporting Document(s) Reported Physicians See Note Reported Physici ans ELIZABETH ([facility]) Note: Reported Physicians:Ordering: Beard e, Esha AAttending: VINITA, JOCELYNConsulting: VINITA, JOCELYNCopy To: Vinita, Esha ID Date Data Source [id number] 08/12/2019 07:48:00 AM EST [place] ([facility]) Name Value Range Interpretation Code Description Data Shelly rce(s) Supporting Document(s) A/G RATIO 1.7 A/G RATIO [place] ([facility]) Note: Responsible Observer: () AFR AMER GFR >60 mL/min AFR AMER GFR [place] ([facility]) Note: Male GFR [...] () 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 64 yrs AGE [place] ([facility]) Note: Responsible Observer: () Albumin [Mass/volume] in Blood by Bromocresol purple ( BCP) dye binding method 4.3 G/DL ALBUMIN [place] ([facility]) Note: Responsible Observer: () ALKALINE PHOS 48 U/L ALKALINE PHOS [place] ([facility]) Note: Responsible Observer: () Anion gap in Body fluid 12.0 mmol/L ANION GAP [place] ([facility]) Note: Responsible Observer: () BUN 15 MG/DL BUN [place] ([facility]) Note: Responsible Observer: () BUN/CREAT 19 BUN/CREAT [place] ([facility]) Note: Responsible Observer: () Calcium [Moles/volume] in Urine collected for unspecified durati on 9.5 MG/DL CALCIUM [place] ([facility]) Note: Responsible Observer: () Chloride [Moles/volume] in Serum, Plasma or Blood 103 mEq/L CHLORIDE [place] ([facility]) Note: Responsible Observer: () CO2 24 MEQ/L CO2 [place] ([facility]) Note: Responsible Observer: () COMPREHENSIVE METABOLIC PANEL See Note COMPRE HENSIVE METABOLIC PANEL [place] ([facility]) Note: COMPREHENSIVE METABOLIC PANELR esponsible Observer: () Creatinine [Moles/volume] in Vitreous fluid 0.8 MG/DL CREATININE [place] ([facility]) Note: Responsible Observer: SUSAN) Globulin [Mass/time] in 24 hour Urine 2.5 GM/DL GLOBULIN [place] ([facility]) Note: Responsible Observer: () Glucose [Mass/volume] in Urine collected for unspecified duratio n 184 MG/DL Above high normal GLUCOSE [place] ([facility]) Note: Responsible Observer: () NON-AA GFR >60 mL/min NON-AA GFR [place] ([facility]) Note: Responsible Observer: () Potassium [Mass/volume] in Blood 4.7 mEq/L POT ASSIUM [place] ([facility]) Note: Responsible Observer: () SGOT/AST 21 U/L SGOT/AST [place] ([facility]) Note: Responsible Observer: () SGPT/ALT 30 U/L SGPT/ALT [place] ([facility]) Note: Responsible Observer: () Sodium [Moles/volume] in Serum, Plasma or Blood 139 mEq/L SODIUM [place] ([facility]) Note: Responsible Observer: () TOTAL BILI <0.7 MG/DL TOTAL BILI [place] ([facility]) Note: Responsible Observer: () TOTAL PROTEIN 6.8 G/DL TOTAL PROTEIN [place] ([facility]) Note: Responsible Observer: () ID Date Data Source [id number] 08/12/2019 07:48:00 AM EST [place] ([facility]) Name Value Range Interpretation Code Description Data Shelly rce(s) Supporting Document(s) Reported Physicians See Note Reported Physici ans [place] ([facility]) Note: Reported Physicians:Ordering: Esha De La Garza AAttending: ESHA TALAMANTESConsulting: Alex TALAMANTES To: Esha Talamantes ID Date Data Source [id number] 08/12/2019 07:48:00 AM EST [place] ([facility]) Name Value Range Interpretation Code Description Data Shelly rce(s) Supporting Document(s) CREAT UR 137.6 MG/DL Above high normal CREAT UR KIARA HAWKINS ([facility]) Note: Responsible Observer: (BLD) MA/CREAT RATIO 2.76 MCG/MG MA/CREAT RATIO JEMIMA TEJADA ([facility]) Note: The [place] [employer] ion states that Microalbuminemia is present if the Microalbumin/Creatinine ratio exceeds 30 mcg/mg. The threshold for Clinical Albuminuria is reached at 300 mcg/mg. The classification of a patient should be based upon at least 2 or 3 abnormal results on specimens collected within a 3 to 6 month timeframe.Responsible Observer: (BLD) MICROALBUMIN <12.00 MG/L Above high normal [facility]ALBUMIN [facility] Note: Responsible Observer: (BLD) ID Date Data Source [id number] 08/12/2019 07:48:00 AM EST [place] ([facility]) Name Value Range Interpretation Code Description Data Shelly rce(s) Supporting Document(s) Reported Physicians See Note Reported Physici ans [place] ([facility]) Note: Reported Physicians:Ordering: Esha De La Garza AAttending: ESHA TALAMANTESConsulting: ESHA TALAMANTESCopninfa To: Esha Talamantes ID Date Data Source [id number] 08/12/2019 07:48:00 AM [facility] ([facility]) Name Value Range Interpretation Code Description Data Shelly rce(s) Supporting Document(s) PSA 0.95 ng/mL PSA [place] ([facility]) Note: BLDoPSA INTERP RETATIONBLDx The PSA [...] interchangeably.Responsible Observer: () ID Date Data Source [id number] 08/12/2019 07:48:00 AM [facility] ([facility]) Name Value Range Interpretation Code Description Data Shelly rce(s) Supporting Document(s) Reported Physicians See Note Reported Physici ans [place] ([facility]) Note: Reported Physicians:Ordering: Esha De La Garza AAttending: JUSTUS TALAMANTESYNConsulting: JUSTUS TALAMANTESYNCopy To: Esha Talamantes ID Date Data Source [id number] 08/12/2019 07:48:00 AM [facility] ([facility]) Name Value Range Interpretation Code Description Data Shelly rce(s) Supporting Document(s) Cholesterol [Moles/volume] in Pericardial fluid 177 MG/DL CHOLESTEROL [place] ([facility]) Note: Responsible Observer: (BLD) CVE PANEL See Note CVE PANEL [place] ([facility]) Note: LIPID PANELResponsible Observe r: (BLD) HDL 48 MG/DL HDL [place] ([facility]) Note: Responsible Observer: (BLD) Cholesterol in LDL [Mass/volume] in Serum or Plasma by Direct as say 91 mg/dL LDL [place] ([facility]) Note: Responsible Observer: (BLD) LDL/HDL 1.90 LDL/HDL [place] ([facility]) Note: CVE RISK CHOL/HD L LDL/HDLMEN: 1/2 AVERAGE 3.43 1.00 AVERAGE 4.97 3.55 2X AVERAGE 9.55 6.25 3X AVERAGE 23.99 7.99WOMEN: 1/2 AVERAGE 3.27 1.47 AVERAGE 4.44 3.22 2X AVERAGE 7.05 5.03 3X AVERAGE 11.04 6.14Responsible Observer: (BLD) RISK FACTOR 3.7 RISK FACTOR [place] ([facility]) Note: Responsible Observer: (BLD) TRIGLYCERIDES 272 MG/DL Above high normal [facility] Note: Responsible Observer: (BLD) ID Date Data Source [id number] 08/12/2019 07:48:00 AM [facility] ([facility]) Name Value Range Interpretation Code Description Data Shelly rce(s) Supporting Document(s) Reported Physicians See Note Reported Physici ans [place] ([facility]) Note: Reported Physicians:Ordering: Esha De La Garza AAttending: ESHA TALAMANTESConsulting: Alex TAALMANTES To: Esha Talamantes ID Date Data Source [id number] 08/12/2019 07:48:00 AM [facility] ([facility]) Name Value Range Interpretation Code Description Data Shelly rce(s) Supporting Document(s) Testosterone, Serum 137 ng/dL Below low normal Testostero ne, Serum [place] ([facility]) Note: Adult male reference interval is b ased on a population ofhealthy nonobese males (BMI <30) between 19 and 39 years old.Silas, et.al. JCEM 2017,102;1161- 1173. PMID: [id number].Responsible Observer: (rfl) ID Date Data Source [id number] 08/13/2019 08:10:[address] [facility] Name Value Range Interpretation Code Description Data Shelly rce(s) Supporting Document(s) Testosterone [Mass/volume] in Serum or Plasma 137 ng/dL 264-916 L [facility] Adult male reference interval is based o n a population ofhealthy nonobese males (BMI <30) between 19 and 39 years old.Silas, et.al. JCEM 2017,102;9402-0714. PMID: [id number]. ID Date Data Source [id number] 08/12/2019 01:01:[address] [facility] Name Value Range Interpretation Code Description Data Shelly rce(s) Supporting Document(s) [facility] Cholesterol [Mass/volume] in Serum or Plasma 177 MG/DL 131 - 200 [facility] Deprecated Triglyceride [Mass/volume] in Serum or Plasma 272 MG/DL 3 5 - 160 H [facility] HDL 48 MG/DL 29 - 86 [facility] Cholesterol in LDL/Cholesterol in HDL [Mass Ratio] in Serum or Plasma 91 mg/dL 65 - 175 [facility] Cholesterol.total/Cholesterol in HDL [Mass Ratio] in Serum o r Plasma 3.7 3.4 - 4.9 [facility] LDL/HDL 1.90 1.00 - 3.55 [facility] Hosp ital CVE RISK CHOL/HDL LDL/HDLMEN: 1/2 AVERAGE 3.43 1.00 AVERAGE 4.97 3.55 2X AVERAGE 9.55 6.25 3X AVERAGE 23.99 7.99WOMEN: 1/2 AVERAGE 3.27 1.47 AVERAGE 4.44 3.22 2X AVERAGE 7.05 5.03 3X AVERAGE 11.04 6.14 ID Date Data Source [id number] 08/12/2019 12:41:[address] [facility] Name Value Range Interpretation Code Description Data Shelly rce(s) Supporting Document(s) Prostate specific Ag [Mass/volume] in Serum or Plasma 0.95 ng/mL 0.00 - 4.00 [facility] \\BLDo\\PSA INTERPRETA TION\\BLDx\\ The PSA assay [...] be used interchangeably. ID Date Data Source [id number] 08/12/2019 12:10:[address] [facility] Name Value Range Interpretation Code Description Data Shelly rce(s) Supporting Document(s) COMPREHENSIVE METABOLIC PANEL [facility] COMPREHENSIVE METABOLIC PANEL Sodium [Moles/volume] in Serum or Plasma 139 mEq/L 134 - 153 [facility] Potassium [Moles/volume] in Serum or Plasma 4.7 mEq/L 3.6 - 5.0 [facility] Chloride [Moles/volume] in Serum or Plasma 103 mEq/L 98 - 107 [facility] Carbon dioxide, total [Moles/volume] in Serum or Plasma 24 MEQ/L 22 - 30 [facility] Glucose [Mass/volume] in Serum or Plasma 184 MG/DL 65 - 110 H [facility] BUN 15 MG/DL 7 - 21 [facility] al Creatinine [Mass/volume] in Serum or Plasma 0.8 MG/DL 0.7 - 1.5 [facility] BUN/CREAT 19 8 - 27 [facility] al Protein [Mass/volume] in Serum or Plasma 6.8 G/DL 6.3 - 8.2 [facility] Albumin [Mass/volume] in Serum or Plasma 4.3 G/DL 3.9 - 5.0 [facility] Globulin [Mass/volume] in Serum by calculation 2.5 GM/DL 2.4 - 3.2 [facility] A/G RATIO 1.7 0.8 - 2.0 [facility] Calcium [Mass/volume] in Serum or Plasma 9.5 MG/DL 8.4 - 10.2 [facility] Bilirubin.total [Mass/volume] in Serum or Plasma <0.7 MG/DL 0.2 - 1.3 [facility] Alkaline phosphatase [Enzymatic activity/volume] in Serum or Plasma 48 U/L 38 - 126 [facility] Aspartate aminotransferase [Enzymatic activity/volume] in Serum or Plasma 21 U/L 5 - 40 [facility] Alanine aminotransferase [Enzymatic activity/volume] in Seru m or Plasma 30 U/L 7 - 56 [facility] Anion gap 3 in Serum or Plasma 12.0 mmol/L 8.0 - 16.0 [facility] AGE 64 yrs [facility] al NON-AA GFR >60 mL/min [facility] ital AFR AMER GFR >60 mL/min [facility] Ho spital Male GFR In terprentation 20-49 [...] >32 mL/min Normal ID Date Data Source [id number] 08/12/2019 12:10:00 PM EST [facility] Name Value Range Interpretation Code Description Data Shelly rce(s) Supporting Document(s) CREAT UR 137.6 MG/DL 0.0 - 30.0 H [facility] pital MICROALBUMIN <12.00 MG/L 0.00 - 0.00 H [facility] MA/CREAT RATIO 2.76 MCG/MG 0.01 - 30.00 [facility] The [place] [employer] st ates that Microalbuminemia is present if the Microalbumin/Creatinine ratio exceeds 30 mcg/mg. The threshold for Clinical Albuminuria is reached at 300 mcg/mg. The classification of a patient should be based upon at least 2 or 3 abnormal results on specimens collected within a 3 to 6 month timeframe. ID Date Data Source [id number] 08/12/2019 12:03:[address] [facility] Name Value Range Interpretation Code Description Data Shelly rce(s) Supporting Document(s) Creatine kinase [Enzymatic activity/volume] in Serum or Plasma 1 02 U/L 30 - 170 [facility] ID Date Data Source [id number] 07/09/2019 08:53:[address] [facility] [address] [place] [address] PHONE: [phone] FAX: [phone] Name ..............: APRYL Ma Acct Number ...........................: [id number] ROOM. ............: TR-1A Number ............................: [id number] Stay type.........: E/R Discharge Date...............:07/07/19 Admit Date .....: 07/07/19 Admit Phys .............................: SIVA TOPETE Date of ..: 1955 Family Phys ...........................: VINITA RUFUS Phone..............: [phone] Age.................................:63 Film# ...............:[id number] Sex.................................:M Unsigned transcriptions are preliminary reports [id number] COMPLETE:07/08/19 07:30 SAVAGE [id number] Please See Scanned Results. Name Value Range Interpretation Code Description Data Shelly rce(s) Supporting Document(s) ID Date Data Source [id number] 07/08/2019 09:58:00 AM EST [facility] [address] [place] [address] PHONE: [phone] FAX: [phone] Name .................. : APRYL Ma Acct Number.................. : [id number] ROOM. ................. : -1A MR Number ................... : [id number] Stay type ............. : E/R Discharge Date......... ... : 07/07/19 Admit Date ......... : 07/07/19 Admit Phys .................... : SIVA TOPETE Date of ....... : 1955 Family Phys ................... : VINITA HOOPER Phone .................. : [phone] Age ................................ : 63 Film# .................. .:[id number] Sex ................................. : M Unsigned transcriptions are preliminary reports and do not represent a medical or legal document CT CERV SPINE W/O CONTRAS [id number] COMPLETE:07/07/19 13:35 43625 Reason(s): Pain CT STUDY OF THE CERVICAL [...] via fax [address] [facility] [address] [place] [address] PHONE: [phone] FAX: [phone] Name .................. : APRYL Ma Acct Number.................. : [id number] ROOM. ................. : TR-1A MR Number ................... : [id number] Stay type ............. : E/R Discharge D ate......... ... : 07/07/19 Admit Date ......... : 07/07/19 Admit Phys .................... : SIVA TOPETE Date of ....... : 1955 Family Phys ................... : VINITA HOOPER Phone .................. : [phone] Age ................................ : 63 Film# .................. .:[id number] Sex ................................. : M Unsigned transcriptions are preliminary reports and do not represent a medical or legal document CT CERV SPINE W/O CONTRAS [id number] COMPLETE:07/07/19 13:35 16886 Reason(s): Pain Copy for: EMERGENCY DEPT via modem Copy for: 710 MED REC DISCHARGED Page 2 of 2 Name Value Range Interpretation Code Description Data Shelly rce(s) Supporting Document(s) ID Date Data Source [id number] 07/08/2019 09:54:00 AM EST [facility] [address] [place] [address] PHONE: [phone] FAX: [phone] Name .................. : APRYL Ma Acct Number.................. : [id number] ROOM. ................. : TR-1A MR Number ................... : [id number] Stay type ............. : E/R Discharge Date......... ... : 07/07/19 Admit Date ......... : 07/07/19 Admit Phys .................... : SIVA TOPETE Date of ....... : 1955 Family Phys ................... : VINITA HOOPER Phone .................. : [phone] Age ................................ : 63 Film# .................. .:[id number] Sex ................................. : M Unsigned transcriptions are preliminary reports and do not represent a medical or legal [place] [id number] COMPLETE:07/07/19 13:37 [id number] Reason(s): Pain LEFT ELBOW SERIES: FINDINGS: No [...] Date: 07/07/19 17:04, Dictation Date: Copy for: [employer] via fax Copy for: VINITA BALBUENA via fax Copy for: EMERGENCY DEPT via modem Copy for: 710 MED REC DISCHARGED Page 1 of 1 Name Value Range Interpretation Code Description Data Shelly rce(s) Supporting Document(s) ID Date Data Source [id number] 07/08/2019 09:54:00 AM EST [facility] [address] [place] [address] PHONE: [phone] FAX: [phone] Name .................. : APRYL Ma Acct Number.................. : [id number] ROOM. ................. : [facility] MR Number ................... : [id number] Stay type ............. : E/R Discharge Date......... ... : 07/07/19 Admit Date ......... : 07/07/19 Admit Phys .................... : SIVA TOPETE Date of ....... : 1955 Family Phys ................... : VINITA HOOPER Phone .................. : [phone] Age ................................ : 63 Film# .................. .:[id number] Sex ................................. : M Unsigned transcriptions are preliminary reports and do not represent a medical or legal document CHEST 2 VIEWS [id number] COMPLETE:07/07/19 13:35 85141 Reason(s): Congestion CHEST X-RAY: 2-VIEWS HISTORY: Congestion [...] rce(s) Supporting Document(s) ID Date Data Source [id number] 07/07/2019 01:18:00 PM EST [facility] 1 OrderSheet [facility] Emergency Department [address] [place] [address] Phone #: ext- [phone] 07/07/2019 13:01 Patient: [...] RN PA;Blood Culture STAT 13:35 07/07/2019 13:46 [id number] X2 (Sched Faustino Paris RN13:35 07/07/2019) PA;Blood Culture STAT 13:35 07/07/2019 13:46 [id number] X2 (Sched Faustino sparrow RN13:45 07/07/2019) PA;Lactic Acid STAT 13:35 07/07/2019 13:46 Edna Paris RN PA;PT/PTT STAT 13:35 07/07/2019 13:46 Edna Paris RN PA;Urinalysis (Clean STAT 13:35 07/07/2019 15:25 DorisCatch) Faustino Paris RN PA;Sed. Rate STAT 13:35 07/07/2019 13:46 Edna Paris RN PA;CRP STAT 13:35 07/07/2019 13:46 Edna Paris RN PA;Troponin-T STAT 13:35 07/07/2019 13:46 Edna Paris RN PA; 2 OrderSheet [facility] Emergency Department [address] [place] [address] Phone #: ext- [phone] 07/07/2019 13:01 Patient: [...] 15:30 Edna Paris RN PA; 3 OrderSheet [facility] Emergency Department [address] [place] [address] Phone #: ext- [phone] 07/07/2019 13:01 Patient: TOLU RATLIFF Sex: M : 1955 Age: 63y[Electronically signed by Edna Paris RN (15:38 07/07/2019)][Electronically signed by Faustino Young (17:59 07/07/2019)][Electronically locked by Edna Paris RN (15:38 07/07/2019)] Name Value Range Interpretation Code Description Data Shelly rce(s) Supporting Document(s) ID Date Data Source [id number] 07/07/2019 01:18:00 PM EST [facility] 1 Medication Reconciliation Report [facility] Emergency Department [address] [place], [place] [address] Phone #: ext [phone] 07/07/2019 13:01 Patient: TOLU RATLIFF Sex: M [...] 1 pack. Refills: 0. Substitution permitted.Pharmacy - [facility][id number] - [address] [place], [place] [id number]. .Bactrim DS 800 mg-160 mg tablet Take 1 tablet twice a day for 10 days -- Dispense 20 tablet. Refills: 2 Medication Reconciliation Report [facility] Emergency Department [address] [place] [address] Phone #: ext- [phone] 07/07/2019 13:01 Patient: TOLU RATLIFF Sex: M : 1955 Age: 63y0. Substitution permitted.Pharmacy - [id number] - [address] [facility] ; [place], [place] [id number]. . -- FABRICE Pean Name Value Range Interpretation Code Description Data Shelly rce(s) Supporting Document(s) ID Date Data Source [id number] 07/07/2019 01:18:00 PM EST [facility] 1 Medication Administration Record [facility] Emergency Department [address] [place] [address] Phone #: [phone] 07/07/2019 13:01 Patient: TOLU RATLIFF Sex: M [...] rce(s) Supporting Document(s) ID Date Data Source [id number] 07/07/2019 01:18:00 PM EST [facility] 1 General Instructions [facility] Emergency Department [address] [place] [address] Phone #: ext- [phone] 07/07/2019 13:01 Patient: [...] tomorrow AM.Dispense 1 pack. Refills: 0. Substitution permitted.[facility] #[id number] - [address] [place], [place] [id number]. FaxNumber: .Bactrim DS 800 mg-160 mg tablet Take 1 tablet twice a day for 10 days -- Dispense 20 tablet. Refills:0. Substitution permitted.[facility] #[id number] - [address] [place], [place] [id number]. .Follow-up:Follow up with your doctor Monday. Call for an appointment. Reason for referral: evaluation, treatment andreferral to Orthopedics for left elbow burisitis if no improvement.. Summary of care provided to patient.Understanding of the discharge instructions verbalized by patient. ADDITIONAL INFORMATIONBursitis 2 General Instructions [facility] Emergency Department [address] [place] [address] Phone #: [phone] 07/07/2019 13:01 Patient: TOLU RATLIFF Sex: M [...] wrap or splint wet. You may take [id number] pain medicine to treat pain and inflammation, [...] to flare up again. 3 General Instructions [facility] Emergency Department [address] [place] [address] Phone #: ext- [phone] 07/07/2019 13:01 Patient: TOLU RATLIFF Sex: M : 1955 Age: 63yWhen to seek medical adviceCall your healthcare provider right away if any of these occur: Redness or warmth over the painful area Increasing pain or swelling at the joint Fever of 100.4F (38C) or above lasting for 24 to 48 hours, or as advised Chills [phone] [employer]. [address] [place] [address]. All rights reserved. This information is not [...] apply an elastic bandage: 4 General Instructions [facility] Emergency Department [address] [place] [address] Phone #: ext- [phone] 07/07/2019 13:01 [id number] Sex: M : 1955 Age: 63y Check [...] doesn't go away after bandage is removed [phone] [employer]. [address] [place] [address], [place] [address]. All rights reserved. This information is not intended as asubstitute for professional medical care. Always follow your healthcare professional's instructions. You have been given the following additional information: Bursitis TARYN Wrap 5 General Instructions [facility] Emergency Department [address] [place] [address] Phone #: ext [phone] 07/07/2019 13:01 Patient: TOLU RATLIFF Sex: M : 1955 Age: 63y(Electronically signed by FABRICE Pena 07/07/2019 17:59) Name Value Range Interpretation Code Description Data Shelly rce(s) Supporting Document(s) ID Date Data Source [id number] 07/07/2019 01:18:00 PM EST [facility] 1 Clinical Report - Nurses [facility] Emergency Department [address] [place] [address] Phone #: ext- [phone] 07/07/2019 13:01 Patient: TOLU RATLIFF Sex: M [...] 81 mg) 1 tablet, daily. --13:05 07/07/19 Edan Paris RN Multi Vitamin Daily Oral 1 [...] RN.ADDITIONAL SURGERIES: 2 Clinical Report - Nurses [facility] Emergency Department [address] [place] [address] Phone #: ext- [phone] 07/07/2019 13:01 [id number]: [facility] : 1955 Age: 63y Back [...] risk identified. --13:12 07/07/19 Edna Paris RN.PHYSICAL [id number] 07/07/19. Ambulatory to room.GENERAL / NEURO / [...] Paris RN 3 Clinical Report - Nurses [facility] Emergency Department [address] [place] [address] Phone #: ext- [phone] 07/07/2019 13:01 Patient: TOLU RATLIFF Sex: M [...] to radiology and CT by wheelchair with transport technician. --14:38 07/07/19 Edna Paris RN 14:38 07/07/19. Patient returned from radiology and CT by wheelchair with transport technician. --14:38 07/07/19 Edna Paris RN 14:50 [...] 97%. Temp: 97.5 F. Pain level now 09/26. --15:35 07/07/19 Alma dice spotter, Chema, ER Tech1 15:37 07/07/19. Condition at departure: improved and stable. No learning barriers present. Discharge instructions provided and reviewed with the patient. Reviewed medication(s) side effects, precautions, dosing and course information. Prescription(s) sent electronically to pharmacy (Medrol, Bactrim DS). Patient verbalized understanding. Written instructions provided in Mexican. The patient was discharged home. He left ambulatory and via private vehicle. Patient driving. --15:38 07/07/19 Edna Paris RN.Locked/Released at 07/07/2019 15:38 by Edna Paris RN Name Value Range Interpretation Code Description Data Shelly rce(s) Supporting Document(s) ID Date Data Source [id number] 07/07/2019 01:18:[address] [facility] 1 Clinical Report - Physicians/Mid Levels [facility] Emergency Department [address] [place] [address] Phone #: ext- [phone] 07/07/2019 13:01 Patient: [...] hives). 2 Clinical Report - Physicians/Mid Levels [facility] Emergency Department [address] [place] [address] Phone #: ext- [phone] 07/07/2019 13:01 Patient: TOLU RATLIFF Sex: M [...] 2.0) 3 Clinical Report - Physicians/Mid Levels [facility] Emergency Department [address] [place] [address] Phone #: ext- [phone] 07/07/2019 13:01 Patient: [...] Male GFR Interprentation 20-49 yrs >60 mL/min Mfycyf62-86 yrs >56 mL/min Normal 60-69 yrs >49 mL/min Normal 70-79yrs>42 mL/min Normal 80 and above >35 mL/min Normal Female GFRInterpretation 20-39 yrs >60 mL/min Normal 40-49 yrs >58 mL/minNormal 50-59 yrs >51 mL/min Normal 60-69 yrs >45 mL/min Dipxxx52-89 yrs >39 mL/min Normal 80 and above [...] VenousThrombosis, Pulmonary Embolus, Tissue heart valves, Acute IA Atrial Fibrillation, Valvular heart diseaseand recurrent Systemic Embolism. -International Normalized Ratio (INR): 2.5 - 3.5 forMechanical Prosthetic valve. \\BLDo\\PTT INTERPRETATION\\BLDx\\Critical results for patients not on therapy: >50 seconds Critical results for patients on therapy:>119 seconds Therapeutic range for patients on therapy: 58 - 90 seconds Coag studies fromline draws may not be accurate due to Heparin and other interferences.CRP: (RYAN: 07/07/2019 14:01) ( CtgRcvd 07/07/2019 14:40) Final results 4 Clinical Report - Physicians/Mid Levels [facility] Emergency Department [address] [place] [address] Phone #: ext- [phone] 07/07/2019 13:01 Patient: [...] prn. 5 Clinical Report - Physicians/Mid Levels [facility] Emergency Department [address] [place] [address] Phone #: ext- [phone] 07/07/2019 13:01 Patient: TOLU RATLIFF Sex: M : 1955 Age: 63y Serevent Diskus Inhalation : 2 puffs daily. Prescription Medications: Medrol (Chucky) 4 mg tablets in a dose pack Take 1 tablet as directed for 6 days -- start tomorrow AM. Dispense 1 pack. Refills: 0. Substitution permitted. Pharmacy - [facility] #[id number] [id number]. . Bactrim DS 800 mg-160 mg tablet Take 1 tablet twice a day for 10 days -- Dispense 20 tablet. Refills: 0. Substitution permitted. Pharmacy - [facility] #[id number] [address] [place], [place] [id number]. FaxNumber: . Follow-up: Follow up with your [...] rce(s) Supporting Document(s) ID Date Data Source [id number] 07/07/2019 03:30:00 PM EST ELIZABETH ([facility]) Name Value Range Interpretation Code Description Data Shelly rce(s) Supporting Document(s) Reported Physicians See Note Reported Terii karoline JOHNSON ([facility]) Note: Reported Physicians:Ordering: Sandy UMANAending: Liyah PANIAGUAulting: ESHA TALAMANTESCopninfa To: Faustino YoungCopninfa To: YUSEF PANIAGUAANCopy To: Esha Talamantes ID Date Data Source [id number] 07/07/2019 03:30:00 PM EST [facility] ([facility]) Name Value Range Interpretation Code Description Data Shelly rce(s) Supporting Document(s) Bilirubin [Presence] in Peritoneal fluid NEG BILIRUBIN [facility] ([facility]) Note: Responsible Observer: () Blood [Presence] in Urine by Visual NEG BLOOD [facility] ([facility]) Note: Responsible Observer: () Clarity of Pleural fluid from Fetus clear CLARITY [facility] ([facility]) Note: Responsible Observer: () Color of Exudate from wound yellow COLOR [facility] ([facility]) Note: Responsible Observer: () Glucose [Mass/volume] in Urine collected for unspecified duration N ORM GLUCOSE [facility] ([facility]) Note: Responsible Observer: () KETONE NEG KETONE [facility] ([facility]) Note: Responsible Observer: () LEUK EST NEG LEUK EST [facility] ([facility]) Note: Responsible Observer: () MICROSCOPIC Not Indicate MICROSCOPIC [facility] ([facility]) Note: Responsible Observer: () Nitrite [Presence] in Urine by Test strip NEG NITRITE [facility] ([facility]) Note: Responsible Observer: () pH of Vaginal fluid by Test strip 5 pH [facility] ([facility]) Note: Responsible Observer: () Protein [Mass/volume] in Saliva (oral fluid) NEG PROTEIN [facility] ([facility]) Note: Responsible Observer: () SPEC GRAVITY 1.030 SPEC GRAVITY [facility] ([facility]) Note: Responsible Observer: () Urobilinogen [Presence] in Urine by Automated test strip NOR UROBILINOGEN [facility] ([facility]) Note: Responsible Observer: () SOURCE R SOURCE [facility] ([facility]) Note: Responsible Observer: () URINALYSIS See Note URINALYSIS [facility] ([facility]) Note: URINALYSISResponsible Observer : () ID Date Data Source [id number] 07/07/2019 03:53:[address] [facility] Name Value Range Interpretation Code Description Data Shelly rce(s) Supporting Document(s) URINALYSIS [facility] URINALYSIS SOURCE R [facility] Hospit al COLOR yellow NORMAL: Yellow [facility] CLARITY clear NORMAL: Clear [facility] sp[facility] Specific gravity of Urine by Test strip 1.030 1.001 - 1.030 [facility] pH 5 5 - 9 [facility] al Glucose [Mass/volume] in Urine by Test strip NORM NORMAL: Negat [facility] Bilirubin.total [Presence] in Urine by Test strip NEG NORMAL: Negative [facility] Ketones [Presence] in Urine by Test strip NEG NORMAL: Negative [facility] Protein [Mass/volume] in Urine by Test strip NEG NORMAL: Negat [facility] Nitrite [Presence] in Urine by Test strip NEG NORMAL: Negative [facility] BLOOD NEG NORMAL: Negative [facility] Leukocyte esterase [Presence] in Urine by Test strip NEG JOSE L: Negative [facility] Urobilinogen [Mass/volume] in Urine by Test strip NOR less madeleine n 1.0 mg/dL [facility] MICROSCOPIC Not Indicate [facility] ospital ID Date Data Source [id number] 07/08/2019 09:43:00 AM [facility] CELIA @ [facility] NOTIFIED 07/08/19 @ 0900 RMMLE FT ELBOW BURSADoes the specimen need to be recollected?: YREASON REJECTED:: WRONG SWAB COLLECTEDTEST(S) ORDERED:: ANAEROBIC CULTURE LEFT ELBOW BURSA LEFT ELBOW [facility]URSA Name Value Range Interpretation Code Description Data Shelly rce(s) Supporting Document(s) Laboratory ANAEROBIC CULTURE [facility] Laboratory studies (set) WRONG SWAB COLLECTED [facility] One or more of the tests that youordered cannot be performed.Please recollect, reorder and resubmit. ID Date Data Source [id number] 07/09/2019 07:21:00 AM [facility] CELIA @ [facility] NOTIFIED 07/08/19 @ 0900 RMMLE FT ELBOW BURSADoes the specimen need to be recollected?: YREASON REJECTED:: WRONG SWAB COLLECTEDTEST(S) ORDERED:: ANAEROBIC CULTURE LEFT ELBOW [facility]URSA LEFT ELBOW [facility] Name Value Range Interpretation Code Description Data Shelly rce(s) Supporting Document(s) Gram stain result No organisms seen [facility] ID Date Data Source [id number] 07/12/2019 10:33:00 AM [facility] CELIA @ [facility] NOTIFIED 07/08/19 @ 0900 RMMLE FT ELBOW BURSADoes the specimen need to be recollected?: YREASON REJECTED:: WRONG SWAB COLLECTEDTEST(S) ORDERED:: ANAEROBIC CULTURE LEFT ELBOW BURSA LEFT ELBOW [facility] Name Value Range Interpretation Code Description Data Shelly rce(s) Supporting Document(s) Bacteria identified in Wound by Aerobe culture [facility] Culture results No growth at 4 days [facility] ID Date Data Source [id number] 07/07/2019 03:17:00 PM ALENA JOHNSON ([facility]) Name Value Range Interpretation Code Description Data Shelly rce(s) Supporting Document(s) Reported Physicians See Note Reported Israel JOHNSON ([facility]) Note: Reported Physicians:Ordering: Sandy UMANAending: YUSEF PANIAGUAANConsulting: JUSTUS TALAMANTESYNCopninfa To: Azeb Young To: SIVA BRYANCopy To: Esha Talamantes ID Date Data Source [id number] 07/07/2019 03:17:00 PM ALENA JOHNSON ([facility]) Name Value Range Interpretation Code Description Data Shelly rce(s) Supporting Document(s) GRAM STAIN See Note GRAM STAIN ELIZABETH ([facility]) Note: GRAM STAIN: TEST PERFORMED AT [facility] [address] [place], [place] [address] CLIA# [id number] SEE SCANNED REPORT COMMENT: Respo nsible Observer: (MD) ID Date Data Source [id number] 07/07/2019 03:17:00 PM EST ELIZABETH ([facility]) Name Value Range Interpretation Code Description Data Shelly rce(s) Supporting Document(s) Reported Physicians See Note Reported Physici ans [place] ([facility]) Note: Reported Physicians:Ordering: Sandy UMANAending: Liyah PANIAGUAulting: Alex TALAMANTES To: Azeb Young To: Trina PANIAGUA To: Esha Talamantes ID Date Data Source [id number] 07/07/2019 03:17:00 PM EST ELIZABETH ([facility]) Name Value Range Interpretation Code Description Data Shelly rce(s) Supporting Document(s) CULTURE WOUND See Note CULTURE WOUND [facility]ETH ([facility]) Note: .WOUND CULTURE_{ SPECIM EN SOURCE : Result: TEST PERFORMED AT [address] [id number] CLIA# [id number] SEE SCANNED REPORT Responsible Observer: (DW) ID Date Data Source [id number] 07/12/2019 02:08:00 PM EST [facility] Name Value Range Interpretation Code Description Data Shelly rce(s) Supporting Document(s) CULTURE WOUND [facility] spital .WOUND CULTURE_{ SPECIMEN SHELLY RCE : Result: TEST PERFORMED AT [address] [address] CLIA# [id number] SEE SCANNED REPORT ID Date Data Source [id number] 07/09/2019 01:14:[address] [facility] Name Value Range Interpretation Code Description Data Shelly rce(s) Supporting Document(s) GRAM STAIN [facility] GRAM STAIN: TEST [place] [address] CLIA# [id number] SEE SCANNED REPORT COMMENT: ID Date Data Source [id number] 07/13/2019 10:38:00 AM EST [facility] [address] Name Value Range Interpretation Code Description Data Shelly rce(s) Supporting Document(s) Bacteria identified in Blood by Culture [facility] NO GROWTH AFTER 5 DAYS ID Date Data Source [id number] 07/07/2019 02:56:00 PM [facility] ([facility]) Name Value Range Interpretation Code Description Data Shelly rce(s) Supporting Document(s) Reported Physicians See Note Reported Physici karoline JOHNSON ([facility]) Note: Reported Physicians:Ordering: Sandy UMANAending: Liyah PANIAGUAulting: Alex TALAMANTES To: Azeb Young To: Trina PANIAGUA To: Esha Talamantes ID Date Data Source [id number] 07/07/2019 02:56:00 PM EST ELIZABETH ([facility]) Name Value Range Interpretation Code Description Data Shelly rce(s) Supporting Document(s) CULTURE BLOOD See Note CULTURE BLOOD [place] ([facility]) Note: _CULTURE BLOOD_ TEST P ERFORMED AT [address] [address] CLIA# [id number] SEE SCANNED REPORT{ PRELIMResponsible Observer: (GBT) ID Date Data Source [id number] 07/14/2019 03:41:[address] [facility] Name Value Range Interpretation Code Description Data Shelly rce(s) Supporting Document(s) CULTURE BLOOD [facility] spital _CULTURE BLOOD_ TEST PERFORM ED AT [address] [address] CLIA# [id number] SEE SCANNED REPORT{ PRELIM ID Date Data Source [id number] 07/07/2019 02:01:00 PM EST [place] ([facility]) Name Value Range Interpretation Code Description Data Shelly rce(s) Supporting Document(s) Reported Physicians See Note Reported Physici ans [place] ([facility]) Note: Reported Physicians:Ordering: Sandy UMANAending: YUSEF PANIAGUAANConsulting: VINITA JOCELYNCopninfa To: Faustino YoungCopninfa To: SIVA BRYANCopy To: Arminda Talamantescelyn ID Date Data Source [id number] 07/07/2019 02:01:00 PM EST [place] ([facility]) Name Value Range Interpretation Code Description Data Shelly rce(s) Supporting Document(s) SED RATE 1 mm/hr SED RATE [facility]ABETH ([facility]) Note: Responsible Observer: () SED RATE REENTER 1 SED RATE [facility] ([facility]) Note: Responsible Observer: () ID Date Data Source [id number] 07/07/2019 02:01:00 PM EST ELIZABETH ([facility]) Name Value Range Interpretation Code Description Data Shelly rce(s) Supporting Document(s) Reported Physicians See Note Reported Physici ans [place] ([facility]) Note: Reported Physicians:Ordering: FAUSTINO UMANAAttending: VENERUS, BRYANConsulting: VINITA, JOCELYNCopy To: Alanna YoungdeCopy To: VENERUS, BRYANCopy To: Vinita, Esha ID Date Data Source [id number] 07/07/2019 02:01:00 PM EST [place] ([facility]) Name Value Range Interpretation Code Description Data Shelly rce(s) Supporting Document(s) LACTIC ACID 3.0 MMOL/L Above high normal LACTIC ACID [facility] ([facility]) Note: Responsible Observer: () ID Date Data Source [id number] 07/07/2019 02:01:00 PM EST [place] ([facility]) Name Value Range Interpretation Code Description Data Shelly rce(s) Supporting Document(s) Reported Physicians See Note Reported Physici ans [place] ([facility]) Note: Reported Physicians:Ordering: FAUSTINO UMANAAttending: VENEHANKS, BRYANConsulting: VINITA, JOCELYNCopy To: Faustino YoungCopy To: SRAVANTHIRUS, BRYANCopy To: Esha Talamantes ID Date Data Source [id number] 07/07/2019 02:01:00 PM EST [place] ([facility]) Name Value Range Interpretation Code Description Data Shelly rce(s) Supporting Document(s) INR in Blood by Coagulation assay 0.92 Below low nor mal INR [place] ([facility]) Note: Responsible Observer: () PROTIME 12.5 SECONDS PROTIME [place] ([facility]) Note: Responsible Observer: () PTT 27.1 SECONDS PTT [place] ([facility]) Note: \\BLD o\\INR INTERPRETATION\\BLDx Therapeutic range for Coumadin and related oral anticoagulants. - International Normalized Ratio (INR): 2.0 - 3.0 for Venous Thrombosis, Pulmonary Embolus, Tissue heart valves, Acute IA Atrial Fibrillation, Valvular heart disease and recurrent [...] interferences.Responsible Observer: () ID Date Data Source [id number] 07/07/2019 02:01:00 PM EST ELIZABETH ([facility]) Name Value Range Interpretation Code Description Data Shelly rce(s) Supporting Document(s) Reported Physicians See Note Reported Physici ans [facility]IZABETH ([facility]) Note: Reported Physicians:Ordering: Sandy UMANAending: RACHEL PANIAGUAonsulting: JUSTUS TALAMANTESYNCopninfa To: Azeb Young To: RACHEL PANIAGUAopy To: Esha Talamantes ID Date Data Source [id number] 07/07/2019 02:01:00 PM EST [facility] ([facility]) Name Value Range Interpretation Code Description Data Shlely rce(s) Supporting Document(s) #BASO 0.04 10\\^3/uL #BASO [facility] ([facility]) Note: Responsible Observer: () #EOS 0.18 10\\^3/uL #EOS [facility] ([facility]) Note: Responsible Observer: () #IG 0.04 10\\^3/uL #IG [facility] ([facility]) Note: Responsible Observer: () #LYMPH 2.04 10\\^3/uL #LYMPH [facility] ([facility]) Note: Responsible Observer: () #MONO 0.87 10\\^3/uL #MONO [facility] ([facility]) Note: Responsible Observer: () #NEUT 8.34 10\\^3/uL Above high normal #NEUT [place] NWAY ([facility]) Note: Responsible Observer: () #NRBC 0.00 10\\^3/uL #NRBC [facility] ([facility]) Note: Responsible Observer: () %NRBC 0.0 % %NRBC [facility] ([facility]) Note: Responsible Observer: () %IG 0.3 % Above high normal %IG [facility] ([facility]) Note: Responsible Observer: () CBC W/AUTOMATED DIFF See Note CBC W/AUTOMATED DIFF [facility] ([facility]) Note: COMPLETE BLOOD COUNTResponsibl e Observer: () BASO 0.3 % BASO [facility] ([facility]) Note: Responsible Observer: () EOS 1.6 % EOS [facility] ([facility]) Note: Responsible Observer: () Hematocrit [Pure volume fraction] of Blood by Automated count 47.4 % HEMATOCRIT [facility] ([facility]) Note: Responsible Observer: () LYMPH 17.7 % Below low normal LYMPH [facility] ([facility]) Note: Responsible Observer: () Hemoglobin [Mass/volume] in Mixed venous blood by Oximetry 15.9 g/d L HEMOGLOBIN [facility] ([facility]) Note: Responsible Observer: () MANUAL DIFF NOT INDICATED MANUAL DIFF [facility] ([facility]) Note: Responsible Observer: () MCH 30.4 pg MCH [facility] ([facility]) Note: Responsible Observer: () MCHC 33.5 g/dL MCHC [facility] ([facility]) Note: Responsible Observer: () MCV 90.6 fL MCV [facility] ([facility]) Note: Responsible Observer: SUSAN) MONO 7.6 % MONO [facility] ([facility]) Note: Responsible Observer: () NEUT 72.5 % NEUT [facility] ([facility]) Note: Responsible Observer: () MPV 9.2 fL MPV [facility] ([facility]) Note: Responsible Observer: () Platelets [#/area] in Blood by Microscopy high power field 217 10\\^ 3/uL PLATELETS [facility] ([facility]) Note: Responsible Observer: () RBC 5.23 10\\^6/uL RBC [facility] ([facility]) Note: Responsible Observer: () RBC MORPH NOT INDICATED RBC MORPH [facility] ([facility]) Note: Responsible Observer: SUSAN) RDW 12.8 % RDW [facility] ([facility]) Note: Responsible Observer: () WBC 11.5 10\\^3/uL Above high normal WBC WILMER ALEX ([facility]) Note: Responsible Observer: () ID Date Data Source [id number] 07/07/2019 02:01:00 PM EST EL[facility]ETH ([facility]) Name Value Range Interpretation Code Description Data Shelly rce(s) Supporting Document(s) Reported Physicians See Note Reported [facility] ans [place] ([facility]) Note: Reported Physicians:Ordering: FAUSTINO UMANAAttending: VENERUS, BRYANConsulting: VINITA, JOCELYNCopy To: Alanna YoungdeCopy To: VENERUS, BRYANCopy To: Vinita, Esha ID Date Data Source [id number] 07/07/2019 02:01:00 PM EST [facility] ([facility]) Name Value Range Interpretation Code Description Data Shelly rce(s) Supporting Document(s) TROPONIN T 0.01 NG/ML TROPONIN T [place] ([facility]) Note: TROPONIN T0.1 ng/ml Recommended as the clinical threshold value forTroponin T.Responsible Observer: SUSAN) ID Date Data Source [id number] 07/07/2019 02:01:00 PM EST [facility] ([facility]) Name Value Range Interpretation Code Description Data Shelly rce(s) Supporting Document(s) Reported Physicians See Note Reported Physic ans [place] ([facility]) Note: Reported Physicians:Ordering: FAUSTINO UMANAAttending: VENERUS, BRYANConsulting: VINITA, JOCELYNCopy To: Alanna YoungdeCopy To: VENERUS, BRYANCopy To: Vinita, Esha ID Date Data Source [id number] 07/07/2019 02:01:00 PM EST [facility] ([facility]) Name Value Range Interpretation Code Description Data Shelly rce(s) Supporting Document(s) A/G RATIO 1.8 A/G RATIO [place] ([facility]) Note: Responsible Observer: () AFR AMER GFR >60 mL/min AFR AMER GFR [place] ([facility]) Note: Male GFR [...] donor age 63 yrs AGE [facility] ([facility]) Note: Responsible Observer: () Albumin [Mass/volume] in Blood by Bromocresol purple ( BCP) dye binding method 4.8 G/DL ALBUMIN [place] ([facility]) Note: Responsible Observer: () ALKALINE PHOS 55 U/L ALKALINE PHOS [facility] ([facility]) Note: Responsible Observer: () BUN 15 MG/DL BUN [place] ([facility]) Note: Responsible Observer: () Anion gap in Body fluid 15.0 mmol/L ANION GAP [facility] ([facility]) Note: Responsible Observer: () BUN/CREAT 19 BUN/CREAT [place] ([facility]) Note: Responsible Observer: () Calcium [Moles/volume] in Urine collected for unspecified durati on 10.6 MG/DL Above high normal CALCIUM [facility] ([facility]) Note: Responsible Observer: () Chloride [Moles/volume] in Serum, Plasma or Blood 102 mEq/L CHLORIDE [place] ([facility]) Note: Responsible Observer: () CO2 24 MEQ/L CO2 [facility] ([facility]) Note: Responsible Observer: () COMPREHENSIVE METABOLIC PANEL See Note COMPRE HENSIVE METABOLIC PANEL [place] ([facility]) Note: COMPREHENSIVE METABOLIC PANELR esponsible Observer: () Creatinine [Moles/volume] in Vitreous fluid 0.8 MG/DL CREATININE [facility] ([facility]) Note: Responsible Observer: () Globulin [Mass/time] in 24 hour Urine 2.7 GM/DL GLOBULIN [place] ([facility]) Note: Responsible Observer: () Glucose [Mass/volume] in Urine collected for unspecified duratio n 120 MG/DL Above high normal GLUCOSE [place] ([facility]) Note: Responsible Observer: () NON-AA GFR >60 mL/min NON-AA GFR [place] ([facility]) Note: Responsible Observer: () Potassium [Mass/volume] in Blood 4.3 mEq/L POT ASSIUM [place] ([facility]) Note: Responsible Observer: () SGOT/AST 26 U/L SGOT/AST [place] ([facility]) Note: Responsible Observer: () Sodium [Moles/volume] in Serum, Plasma or Blood 141 mEq/L SODIUM [place] ([facility]) Note: Responsible Observer: () SGPT/ALT 45 U/L SGPT/ALT [place] ([facility]) Note: Responsible Observer: () TOTAL BILI 0.7 MG/DL TOTAL BILI [place] ([facility]) Note: Responsible Observer: () TOTAL PROTEIN 7.5 G/DL TOTAL PROTEIN [place] ([facility]) Note: Responsible Observer: () ID Date Data Source [id number] 07/07/2019 02:01:00 PM EST [place] ([facility]) Name Value Range Interpretation Code Description Data Shelly rce(s) Supporting Document(s) Reported Physicians See Note Reported Physici ans [place] ([facility]) Note: Reported Physicians:Ordering: Sandy UMANAending: Liyah PANIAGUAulting: Alex TALAMANTES To: Azeb Young To: Trina PANIAGUA To: Esha Talamantes ID Date Data Source [id number] 07/07/2019 02:01:00 PM EST [place] ([facility]) Name Value Range Interpretation Code Description Data Shelly rce(s) Supporting Document(s) CRP-HS 1.00 MG/L CRP-HS [place] ([facility]) Note: CDC/S HS-CRP CUT-OFF : RELATIVE RISK: <1.0 mg/L Low 1.0 - 3.0 mg/L Average >3.0 mg/L High Optimally, the average of HS-CRP results repeated two weeks apart should be used for risk assessment.Responsible Observer: SUSAN) ID Date Data Source [id number] 07/07/2019 02:01:00 PM [facility] Name Value Range Interpretation Code Description Data Shelly rce(s) Supporting Document(s) Reported Physicians See Note Reported Physici ans [place] ([facility]) Note: Reported Physicians:Ordering: Sandy UMANAending: Liyah PANIAGUAulting: ESHA TALAMANTESCopninfa To: Azeb Young To: RACHEL PANIAGUAopy To: Esha Talamantes ID Date Data Source [id number] 07/07/2019 02:01:00 PM [facility] Name Value Range Interpretation Code Description Data Shelly rce(s) Supporting Document(s) CULTURE BLOOD See Note CULTURE BLOOD [place] ([facility]) Note: _CULTURE BLOOD_ [place] [address] CLIA# [id number] SEE SCANNED REPORT{ PRELIMResponsible Observer: JOSE) ID Date Data Source [id number] 07/14/2019 03:40:[address] [facility] Name Value Range Interpretation Code Description Data Shelly rce(s) Supporting Document(s) CULTURE BLOOD [facility] Ho spital _CULTURE BLOOD_ TEST PERFORM ED AT [address] [address] CLIA# [id number] SEE SCANNED REPORT{ PRELIM ID Date Data Source [id number] 07/07/2019 04:00:[address] [facility] Name Value Range Interpretation Code Description Data Shelly rce(s) Supporting Document(s) Erythrocyte sedimentation rate by Westergren method 1 mm/hr 0 - 20 [facility] SED RATE REENTER 1 [facility] ID Date Data Source [id number] 07/07/2019 02:42:00 PM EST [facility] Name Value Range Interpretation Code Description Data Shelly rce(s) Supporting Document(s) COMPREHENSIVE METABOLIC PANEL [facility] COMPREHENSIVE METABOLIC PANEL Sodium [Moles/volume] in Serum or Plasma 141 mEq/L 134 - 153 [facility] Potassium [Moles/volume] in Serum or Plasma 4.3 mEq/L 3.6 - 5.0 [facility] Chloride [Moles/volume] in Serum or Plasma 102 mEq/L 98 - 107 [facility] Carbon dioxide, total [Moles/volume] in Serum or Plasma 24 MEQ/L 22 - 30 [facility] Glucose [Mass/volume] in Serum or Plasma 120 MG/DL 65 - 110 H [facility] BUN 15 MG/DL 7 - 21 [facility] Creatinine [Mass/volume] in Serum or Plasma 0.8 MG/DL 0.7 - 1.5 [facility] BUN/CREAT 19 8 - 27 [facility] Protein [Mass/volume] in Serum or Plasma 7.5 G/DL 6.3 - 8.2 [facility] Albumin [Mass/volume] in Serum or Plasma 4.8 G/DL 3.9 - 5.0 [facility] Globulin [Mass/volume] in Serum by calculation 2.7 GM/DL 2.4 - 3.2 [facility] A/G RATIO 1.8 0.8 - 2.0 [facility] Calcium [Mass/volume] in Serum or Plasma 10.6 MG/DL 8.4 - 10.2 H [facility] Bilirubin.total [Mass/volume] in Serum or Plasma 0.7 MG/DL 0.2 - 1.3 [facility] Alkaline phosphatase [Enzymatic activity/volume] in Serum or Plasma 55 U/L 38 - 126 [facility] Aspartate aminotransferase [Enzymatic activity/volume] in Serum or Plasma 26 U/L 5 - 40 [facility] Alanine aminotransferase [Enzymatic activity/volume] in Seru m or Plasma 45 U/L 7 - 56 [facility] Anion gap 3 in Serum or Plasma 15.0 mmol/L 8.0 - 16.0 [facility] AGE 63 yrs [facility] NON-AA GFR >60 mL/min [facility] Hosp ital AFR AMER GFR >60 mL/min [facility] Ho spital Male GFR In terprentation 20-49 [...] >32 mL/min Normal ID Date Data Source [id number] 07/07/2019 02:41:00 PM EST [facility] Name Value Range Interpretation Code Description Data Shelly rce(s) Supporting Document(s) CBC W/AUTOMATED DIFF [facility] COMPLETE BLOOD COUNT Leukocytes [#/volume] in Blood by Automated count 11.5 10^3/uL 4.2 - 11.0 H [facility] Erythrocytes [#/volume] in Blood by Automated count 5.23 10^6/uL 4. 50 - 6.30 [facility] Hemoglobin [Mass/volume] in Blood 15.9 g/dL 14.0 - 16.0 [facility] Hematocrit [Volume Fraction] of Blood by Automated count 47.4 % 4 1.0 - 51.0 [facility] Erythrocyte mean corpuscular volume [Entitic volume] by Auto mated count 90.6 fL 80.0 - 94.0 [facility] Erythrocyte mean corpuscular hemoglobin [Entitic mass] by Automated count 30.4 pg 27.0 - 34.0 [facility] Erythrocyte mean corpuscular hemoglobin concentration [Mass/volume] by Automated count 33.5 g/dL 31.0 - 36.0 [facility] Erythrocyte distribution width [Ratio] by Automated count 12.8 % 11.5 - 14.8 [facility] Platelets [#/volume] in Blood by Automated count 217 10^3/uL 150 - 45 0 [facility] Platelet mean volume [Entitic volume] in Blood by Automated count 9.2 fL 7.4 - 10.4 [facility] Neutrophils/100 leukocytes in Blood by Automated count 72.5 % 37. 0 - 80.0 [facility] Lymphocytes/100 leukocytes in Blood by Manual count 17.7 % 25.0 - 40.0 L [facility] Monocytes/100 leukocytes in Blood by Automated count 7.6 % 3.0 - 8.0 [facility] Eosinophils/100 leukocytes in Blood by Automated count 1.6 % 0.0 - 7.0 [facility] Basophils/100 leukocytes in Blood by Automated count 0.3 % 0.0 - 2.0 [facility] %IG 0.3 % 0.0 - 0.0 H [facility] Hospit al %NRBC 0.0 % 0.0 - 0.0 [facility] [#/volume] in Blood by Automated count 8.34 10^3/uL 2.00 - 6.90 H [facility] Lymphocytes [#/volume] in Blood by Automated count 2.04 10^3/uL 0.60 - 3.40 [facility] Monocytes [#/volume] in Blood by Automated count 0.87 10^3/uL 0.00 - 0.90 [facility] Eosinophils [#/volume] in Blood by Automated count 0.18 10^3/uL 0.00 - 0.70 [facility] Basophils [#/volume] in Blood by Automated count 0.04 10^3/uL 0.00 - 0.20 [facility] #IG 0.04 10^3/uL 0.00 - 0.10 [facility] #NRBC 0.00 10^3/uL 0.00 - 0.00 [facility] MANUAL DIFF NOT INDICATED [facility] RBC MORPH NOT INDICATED [facility] ID Date Data Source [id number] 07/07/2019 02:40:00 PM EST [facility] Name Value Range Interpretation Code Description Data Shelly rce(s) Supporting Document(s) TROPONIN T 0.01 NG/ML 0.00 - 0.10 [facility] TROPONIN T0.1 ng/ml Recommended as the c linical threshold value forTroponin T. ID Date Data Source [id number] 07/07/2019 02:40:[address] [facility] Name Value Range Interpretation Code Description Data Shelly rce(s) Supporting Document(s) C reactive protein [Mass/volume] in Serum or Plasma by High sensitivity method 1.00 MG/L 1.00 - 3.00 [facility] HS-CRP CUT-OFF: RELATIVE RISK: <1.0 mg/L Low 1.0 - 3.0 mg/L Average >3.0 mg/L High Optimally, the average of HS-CRP results repeated two weeks apart should be used for risk assessment. ID Date Data Source [id number] 07/07/2019 02:40:[address] [facility] Name Value Range Interpretation Code Description Data Shelly rce(s) Supporting Document(s) Prothrombin time (PT) 12.5 SECONDS 11.0 - 15.5 Health system INR in Platelet poor plasma by Coagulation assay 0.92 0.93 - 1. 23 L [facility] aPTT in Blood by Coagulation assay 27.1 SECONDS 24.8 - 36.7 [facility] \\BLDo\\INR INTERPRETATION\\BLDx\\ Therapeutic range for Coumadin and related oral anticoagulants. - International Normalized Ratio (INR): 2.0 - 3.0 for Venous Thrombosis, Pulmonary Embolus, Tissue heart valves, Acute IA Atrial Fibrillation, Valvular heart disease and recurrent [...] and other interferences. ID Date Data Source [id number] 07/07/2019 02:39:[address] [facility] Name Value Range Interpretation Code Description Data Shelly rce(s) Supporting Document(s) Lactate [Moles/volume] in Serum or Plasma 3.0 MMOL/L 0.2 - 2.2 H [facility] ID Date Data Source [id number] 06/25/2019 12:00:00 AM [facility] [place] ([facility]) Name Value Range Interpretation Code Description Data Shelly rce(s) Supporting Document(s) Hemoglobin A1c/Hemoglobin.total in Blood 6.5 Abnormal (applies to non-numeric results) HbA1C [place] ([facility]) ID Date Data Source [id number] 06/25/2019 12:00:00 AM EST [place] ([facility]) Name Value Range Interpretation Code Description Data Shelly rce(s) Supporting Document(s) Glucose [Mass/volume] in Urine collected for unspecified duration 1 16 Normal Glucose [place] ([facility]) Procedure Social History Code Duration Value Status Description Data Source(s ) Smoking 07/20/2020 12:00:00 AM EST Former Smoker completed Former Smoker [facility] ([facility]) Smoking 07/16/2020 12:00:00 AM EST Patient is a former smoker completed Patient is a former smoker [facility] ([facility], ) Alcohol intake 05/28/2020 12:00:00 AM EST Yes completed [facility] Cigarette pack-years 05/28/2020 12:00:00 AM EST UNK completed [facility] Cigarettes smoked current (pack per day) - Reported 05/28/20 12:00:00 AM EST UNK completed [facility] Smoking 05/28/2020 12:00:00 AM EST Former smoker completed Former smoker [facility] 04/12/2020 09:42:24 AM EDT Current some day smoker com pleted Current some day smoker [facility] Smoking 04/12/2020 09:42:00 AM EDT Current some day smoker com pleted Current some day smoker [facility] 04/11/2020 05:52:00 PM EDT Current every day smoker co mpleted Current every day smoker [facility] Smoking 04/11/2020 05:52:00 PM EDT Current every day smoker co mpleted Current every day smoker [facility] Vital Signs ID Date Data Source UNK Name Value Range Interpretation Code Description Data Source(s) Diastolic blood pressure 83 mm[Hg] 83 mm[Hg] eCW1 ([facility]) Systolic blood pressure 177 mm[Hg] 177 mm[Hg] e CW1 ([facility]) Body temperature 97.6 [degF] 97.6 [degF] eCW1 ( [facility]) Respiratory rate 22 /min 22 /min eCW1 ([facility]) Heart rate 86 /min 86 /min eCW1 ([facility]) Body mass index (BMI) [Ratio] 27.14 kg/m2 27.14 kg/m2 eCW1 ([facility]) Body height 71 [in_i] 71 [in_i] eCW1 ([facility]) Body weight 194.6 [lb_av] 194.6 [lb_av] eCW1 ([facility]) Body surface area Derived from formula 2.05 m2 2.05 m2 [facility] ([facility]) Body weight 84.823 kg 84.823 kg [facility] ([facility]) [place] body weight 172 [lb_av] 172 [lb_av] MEDEN T ([facility]) Body mass index (BMI) [Ratio] 26.1 kg/m2 26.1 k g/m2 [facility] ([facility]) Body weight 187.00 [lb_av] 187.00 [lb_av] [facility] Body height 71 [in_i] 71 [in_i] [facility] ([facility]) 5'11" Oxygen saturation in Arterial blood by Pulse oximetry 96 % 96 % [facility] ([facility]) Room Air Heart rate 74 /min 74 /min [facility] ([facility]) Diastolic blood pressure 60 mm[Hg] 60 mm[Hg] [facility] ([facility]) Systolic blood pressure 120 mm[Hg] 120 [facility]Hg[facility] Body mass index (BMI) [Ratio] 26.5 kg/m2 26.5 k g/m2 [facility] ([facility]) Body weight 190.00 [lb_av] 190.00 [lb_av] [facility] Body height 71 [in_i] 71 [in_i] [facility] ([facility]) 5'11" Oxygen saturation in Arterial blood by Pulse oximetry 94 % 94 % [facility] ([facility]) Room Air Heart rate 90 /min 90 /min [facility] ([facility]) Diastolic blood pressure 72 mm[Hg] 72 mm[Hg] [facility] ([facility]) Systolic blood pressure 140 mm[Hg] 140 mm[Hg] [facility] ([facility]) Body surface area Derived from formula 2.06 m2 2.06 m2 [facility] ([facility]) Body weight 86.184 kg 86.184 kg [facility] ([facility]) [place] body weight 172 [lb_av] 172 [lb_av] MED[facility] T ([facility]) Body surface area Derived from formula 2.03 m2 2.03 m2 [facility] ([facility]) Body weight 82.555 kg 82.555 kg [facility] ([facility]) [place] body weight 172 [lb_av] 172 [lb_av] MED[facility] T ([facility]) Body mass index (BMI) [Ratio] 25.4 kg/m2 25.4 k g/m2 [facility] ([facility]) Body weight 182.00 [lb_av] 182.00 [lb_av] MED[facility] T ([facility]) Body height 71 [in_i] 71 [in_i] [facility] ([facility]) 5" Oxygen saturation in Arterial blood by Pulse oximetry 93 % 93 % [facility] ([facility]) Room Air Heart rate 86 /min 86 /min [facility] ([facility]) Diastolic blood pressure 70 mm[Hg] 70 mm[Hg] [facility] ([facility]) Systolic blood pressure 130 mm[Hg] 130 mm[Hg] [facility] ([facility]) Body weight 88.452 kg 88.452 kg [facility] ([facility]) Body weight 195.00 [lb_av] 195.00 [lb_av] MED[place] T ([facility]) Oxygen saturation in Arterial blood by Pulse oximetry 85 % 85 % [facility] ([facility], ) 88 ra Heart rate 71 /min 71 /min [facility] ([facility], ) Diastolic blood pressure 78 mm[Hg] 78 mm[Hg] [facility] Systolic blood pressure 130 mm[Hg] 130 mm[Hg] [facility] Oxygen saturation in Arterial blood by Pulse oximetry 92 % 92 % [facility] Body mass index (BMI) [Ratio] 26.36 kg/m2 26.36 kg/m2 [facility] Body weight 85.73 kg 85.73 kg [facility] Body height 180.3 cm 180.3 cm [facility] Heart rate 96 /min 96 /min [facility] Diastolic blood pressure 94 mm[Hg] 94 mm[Hg] [facility] Systolic blood pressure 162 mm[Hg] 162 mm[Hg] [facility] Inhaled oxygen concentration 21 % 21 % [place] ([facility]) Inhaled oxygen flow rate 0 L/min 0 L/min [place] ([facility]) Oxygen saturation in Arterial blood by Pulse oximetry 92 % 92 % [place] ([facility]) Body surface area Derived from formula 2.06 m2 2.06 m2 [place] ([facility]) Body mass index (BMI) [Ratio] 26.5 kg/m2 26.5 k g/m2 [place] ([facility]) Body weight 190 [lb_av] 190 [lb_av] [place] ( [facility] Body height 71 [in_i] 71 [in_i] [place] ([facility]) Body temperature 97.9 [degF] 97.9 [degF] [facility] ([facility]) Respiratory rate 24 /min 24 /min [place] ([facility] Medicine [facility]) Heart rate 68 /min 68 /min [place] [facility] Diastolic blood pressure 68 mm[Hg] 68 mm[Hg] [place] ([facility]) Systolic blood pressure 128 mm[Hg] 128 mm[Hg] [facility] ([facility]) Inhaled oxygen concentration 21 % 21 % [place] ([facility]) O2 with mask 84% without mask went to 95% Inhaled oxygen flow rate 0 L/min 0 L/min [place] ([facility]) O2 with mask 84% without mask went to 95% Oxygen saturation in Arterial blood by Pulse oximetry 84 % 84 % [place] ([facility]) O2 with mask 84% without mask went to 95% Body surface area Derived from formula 2.07 m2 2.07 m2 [place] ([facility]) O2 with mask 84% without mask went to 95% Body mass index (BMI) [Ratio] 26.6 kg/m2 26.6 k g/m2 [place] ([facility]) O2 with mask 84% without mask went to 95% Body weight 191 [lb_av] 191 [lb_av] [place] ([facility]) O2 with mask 84% without mask went to 95% Body height 71 [in_i] 71 [in_i] [place] ([facility]) O2 with mask 84% without mask went to 95% Body temperature 97.6 [degF] 97.6 [degF] [facility] ([facility]) O2 with mask 84% without mask went to 95% Respiratory rate 24 /min 24 /min [place] ([facility]) O2 with mask 84% without mask went to 95% Heart rate 91 /min 91 /min [place] ([facility]) O2 with mask 84% without mask went to 95% Diastolic blood pressure 82 mm[Hg] 82 mm[Hg] [place] ([facility]) O2 with mask 84% without mask went to 95% Systolic blood pressure 132 mm[Hg] 132 mm[Hg] [facility] ([facility]) O2 with mask 84% without mask went to 95% Inhaled oxygen concentration 21 % 21 % [place] ([facility]) Inhaled oxygen flow rate 0 L/min 0 L/min [place] ([facility]) Oxygen saturation in Arterial blood by Pulse oximetry 94 % 94 % [place] ([facility]) Body surface area Derived from formula 2.07 m2 2.07 m2 [place] ([facility]) Body mass index (BMI) [Ratio] 26.6 kg/m2 26.6 k g/m2 [place] ([facility]) Body weight 191 [lb_av] 191 [lb_av] [place] ([facility]) Body height 71 [in_i] 71 [in_i] [place] ([facility]) Body temperature 97.1 [degF] 97.1 [degF] [facility] ([facility]) Respiratory rate 24 /min 24 /min [place] ([facility]) Heart rate 84 /min 84 /min [place] ([facility]) Diastolic blood pressure 86 mm[Hg] 86 mm[Hg] [place] ([facility]) Systolic blood pressure 134 mm[Hg] 134 mm[Hg] [facility] ([facility]) Inhaled oxygen concentration 21 % 21 % [place] ([facility]) Inhaled oxygen flow rate 0 L/min 0 L/min [place] ([facility]) Oxygen saturation in Arterial blood by Pulse oximetry 97 % 97 % [place] ([facility]) Body surface area Derived from formula 2.10 m2 2.10 m2 [place] ([facility]) Body mass index (BMI) [Ratio] 27.8 kg/m2 27.8 k g/m2 [place] ([facility]) Body weight 199 [lb_av] 199 [lb_av] [place] ([facility]) Body height 71 [in_i] 71 [in_i] [place] ([facility]) Body temperature 97.8 [degF] 97.8 [degF] [facility] ([facility]) Respiratory rate 24 /min 24 /min [place] ([facility]) Heart rate 90 /min 90 /min [place] ([facility]) Diastolic blood pressure 78 mm[Hg] 78 mm[Hg] [place] ([facility]) Systolic blood pressure 134 mm[Hg] 134 mm[Hg] [facility] Inhaled oxygen concentration 21 % 21 % [place] ([facility]) Inhaled oxygen flow rate 0 L/min 0 L/min [place] ([facility]) Oxygen saturation in Arterial blood by Pulse oximetry 97 % 97 % [place] ([facility]) Body surface area Derived from formula 2.12 m2 2.12 m2 [place] ([facility]) Body mass index (BMI) [Ratio] 28.3 kg/m2 28.3 k g/m2 [place] ([facility]) Body weight 203 [lb_av] 203 [lb_av] [place] ([facility]) Body height 71 [in_i] 71 [in_i] [place] ([facility]) Body temperature 97.8 [degF] 97.8 [degF] [facility] ([facility]) Respiratory rate 24 /min 24 /min [place] ([facility]) Heart rate 97 /min 97 /min [place] ([facility]) Diastolic blood pressure 76 mm[Hg] 76 mm[Hg] [place] ([facility]) Systolic blood pressure 132 mm[Hg] 132 mm[Hg] [facility]) Inhaled oxygen concentration 21 % 21 % [place] ([facility]) Inhaled oxygen flow rate 0 L/min 0 L/min [place] ([facility]) Oxygen saturation in Arterial blood by Pulse oximetry 98 % 98 % [place] ([facility]) Body surface area Derived from formula 2.07 m2 2.07 m2 [place] ([facility]) Body mass index (BMI) [Ratio] 26.6 kg/m2 26.6 k g/m2 [place] ([facility]) Body weight 191 [lb_av] 191 [lb_av] [place] ([facility]) Body height 71 [in_i] 71 [in_i] [place] ([facility]) Body temperature 97.8 [degF] 97.8 [degF] [facility] ([facility]) Respiratory rate 24 /min 24 /min [place] ([facility]) Heart rate 86 /min 86 /min [place] ([facility]) Diastolic blood pressure 72 mm[Hg] 72 mm[Hg] [place] ([facility]) Systolic blood pressure 124 mm[Hg] 124 mm[Hg] [facility] Patient Treatment Plan of Care Planned Activity Planned Date Details Description Data Source (s) Albuterol 0.833 MG/ML / Ipratropium [place] 0.167 MG/M L Inhalant Solution 05/20/2020 12:00:00 AM [facility] Metformin hydrochloride 500 MG Oral Tablet 05/20/2020 12:00:00 AM E [facility] Metformin hydrochloride 500 MG Oral Tablet 05/20/2020 12:00:00 AM [facility]) atorvastatin 20 MG Oral Tablet 05/20/2020 12:00:00 AM [facility]) 60 ACTUAT Budesonide 0.16 MG/ACTUAT / fo rmoterol fumarate 0.0045 MG/ACTUAT Metered Dose Inhaler [Symbicort] 05/20/2020 12:00:00 AM [facility]) 200 ACTUAT Albuterol 0.09 MG/ACTUAT Metered Dose Inhal er [ProAir] 05/20/2020 12:00:00 AM [facility] ([facility]) Lisinopril 5 MG Oral Tablet 05/20/2020 12:00:00 AM [facility]) Triamcinolone Acetonide 1 MG/ML Topical Lotion 05/20/2020 12:00:00 AM [facility]) Lancets Ultra Fine Miscellaneous 05/20/2020 12:00:00 AM [facility]) IGlucose Test Strips In Vitro 05/20/2020 12:00:00 AM [facility]) Lisinopril 5 MG Oral Tablet 05/19/2020 12:00:00 AM [facility] Lisinopril 5 MG Oral Tablet 05/17/2020 12:00:00 AM [facility]) Prednisone 10 MG Oral Tablet 05/07/2020 12:00:00 AM [facility]) doxycycline hyclate 100 MG Oral Capsule 05/06/2020 12:00:00 AM [facility]) 60 ACTUAT Budesonide 0.16 MG/ACTUAT / fo rmoterol fumarate 0.0045 MG/ACTUAT Metered Dose Inhaler [Symbicort] 04/22/2020 12:00:00 AM [facility]) atorvastatin 20 MG Oral Tablet 04/22/2020 12:00:00 AM [facility]) Metformin hydrochloride 500 MG Oral Tablet 04/22/2020 12:00:00 AM [facility]) Lisinopril 5 MG Oral Tablet 04/22/2020 12:00:00 AM [facility]) 200 ACTUAT Albuterol 0.09 MG/ACTUAT Metered Dose Inhal er [ProAir] 04/22/2020 12:00:00 AM [facility]) 60 ACTUAT Budesonide 0.16 MG/ACTUAT / fo rmoterol fumarate 0.0045 MG/ACTUAT Metered Dose Inhaler [Symbicort] 11/20[facility] Lisin[facility] 5 MG Oral Tablet 11/20/2019 12:00:00 AM [facility]) 200 ACTUAT Albuterol 0.09 MG/ACTUAT Metered Dose Inhal er [ProAir] 10/24/2019 12:00:00 AM [facility] ([facility]) atorvastatin 20 MG Oral Tablet 08/20/2019 12:00:00 AM [facility]) IGlucose Test Strips In Vitro 08/20/2019 12:00:00 AM [facility]) Lancets Ultra Fine Miscellaneous 08/20/2019 12:00:00 AM [facility] ([facility]) Metformin hydrochloride 500 MG Oral Tablet 08/20/2019 12:00:00 AM [facility] ([facility]) 60 ACTUAT Budesonide 0.16 MG/ACTUAT / fo rmoterol fumarate 0.0045 MG/ACTUAT Metered Dose Inhaler [Symbicort] 08/20/2019 12:00:00 AM [facility]) 200 ACTUAT Albuterol 0.09 MG/ACTUAT Metered Dose Inhal er [ProAir] 08/20/2019 12:00:00 AM [facility] ([facility]) Triamcinolone Acetonide 1 MG/ML Topical Lotion 08/20/2019 12:00:00 AM EST [facility]) Lisinopril 5 MG Oral Tablet 08/20/2019 12:00:00 AM [facility]) 5000 MG Testosterone 0.01 MG/MG Topical Gel [Androgel] 08/20/2019 12:00:00 AM [facility]) atorvastatin 20 MG Oral Tablet 06/25/2019 12:00:00 AM [facility]) Metformin hydrochloride 500 MG Oral Tablet 06/25/2019 12:00:[address] [facility]) IGlucose Test Strips In Vitro 06/25/2019 12:00:00 AM [facility]) Lancets Ultra Fine Miscellaneous 06/25/2019 12:00:00 AM [facility]) 60 ACTUAT Budesonide 0.16 MG/ACTUAT / fo rmoterol fumarate 0.0045 MG/ACTUAT Metered Dose Inhaler [Symbicort] 06/25/2019 12:00:00 AM [facility]) Metformin hydrochloride 500 MG Oral Tablet 05/30/2019 12:00:[address] [facility] ([facility]) IGlucose Test Strips In Vitro 01/24/2019 12:00:00 AM [facility]) Lancets Ultra Fine Miscellaneous 01/24/2019 12:00:00 AM [facility] ([facility]) Triamcinolone Acetonide 1 MG/ML Topical Lotion 01/24/2019 12:00:00 AM [facility] ([facility]) atorvastatin 20 MG Oral Tablet 01/24/2019 12:00:00 AM EDT [place] ([facility]) 30 ACTUAT fluticasone furoate 0.1 MG/ACT UAT / vilanterol 0.025 MG/ACTUAT Dry Powder Inhaler [Breo] 01/24/2019 12:00:00 AM EDT [place] ([facility]) 200 ACTUAT Albuterol 0.09 MG/ACTUAT Metered Dose Inhal er [ProAir] 01/24/2019 12:00:00 AM EDT [place] ([facility]) pantoprazole 40 MG Delayed Release Oral Tablet 04/16/2016 12:00:00 AM EDT [facility] atorvastatin 40 MG Oral Tablet 10/10/2014 12:00:00 AM EDT [facility] 200 ACTUAT Levalbuterol 0.045 MG/ACTUAT Metered Dose I nhaler [Xopenex] 04/23/2014 12:00:00 AM EST [facility] Cholecalciferol 2000 UNT Oral Capsule [facility] Nitroglycerin 0.4 MG Sublingual Tablet [facility] DAILY DIONNE (THERAGRAN) per tablet [facility] ALBUTEROL IN [facility] 24 HR metoprolol succinate 25 MG Extended Release Oral Tablet [facility] Aspirin 325 MG Oral Tablet S [facility]
[2020-08-02 11:00] LABS: BLOOD UREA NITROGEN 20 MG/DL (7-18); CALCIUM LEVEL 8.4 MG/DL (8.8-10.2); CARBON DIOXIDE LEVEL 24 MEQ/L (21-32); CHLORIDE LEVEL 107 MEQ/L (98-107); CK-MB VALUE MASS 1.5 NG/ML (<3.6); CPK CREATINE PHOSPHOKINASE 53 U/L (39-308); CREATININE FOR GFR 0.96 MG/DL (0.70-1.30); GLOMERULAR FILTRATION RATE > 60.0 (>49); GLUCOSE, FASTING 141 MG/DL (70-100); MB/CK RELATIVE INDEX 2.83 (< OR =4); POTASSIUM SERUM 4.1 MEQ/L (3.5-5.1); SODIUM LEVEL 140 MEQ/L (136-145); TROPONIN I < 0.02 NG/ML (< 0.10)
[2020-08-02] MEDS ORDERED: METOPROLOL TART 25 MG TABLET PO ONE (11:15)
[2020-08-02] MEDS ORDERED: ATIV1TAB10 PO (11:25)
[2020-08-02] MEDS ORDERED: PILL CUTTER 1 EACH XX PRN (11:30)
[2020-08-02 11:31] VITALS: BP 145/71
[2020-08-02] MEDS ORDERED: METO1TAB87 PO (11:34)
[2020-08-02] MEDS ORDERED: LISI2.5T2 PO (11:34)
[2020-08-02 11:53] VITALS: BP 147/71
--- NOTE | 2020-08-02 20:50 | ECGEPIP ---
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
[2020-08-03] MEDS ORDERED: NYST50SS PO (08:51)
== END 2020-08-02 13:01 | disposition home or self-care (01) ==
LOC: M ED 09:38
DX: I48.0 Paroxysmal atrial fibrillation (principal); I10 Essential (primary) hypertension; E78.5 Hyperlipidemia, unspecified; Z86.711 Personal history of pulmonary embolism; Z79.01 Long term (current) use of anticoagulants; Z79.82 Long term (current) use of aspirin; Z79.899 Other long term (current) drug therapy; Z91.013 Allergy to seafood
CPT/HCPCS: 36415; 80048; 82550; 82553; 85027; 93005; 99284; J1642

== ENCOUNTER → 2020-09-30 | Outpatient (CLI) | payer OTHER ==
[~2020-09-30] MED LIST changes: +ATIV1TAB10 PO; +LISI2.5T2 PO; +METO1TAB87 PO; +OMEG10002 PO
--- NOTE | 2020-10-01 07:17 | REP ---
INDICATION: CHRONIC OBSTRUCTIVE PULMONARY DISEASE, UNSPECIFIED COMPARISON: 07/31/2020, 07/04/2020 TECHNIQUE: PA and lateral. FINDINGS: Mediastinum and cardiac silhouette are stable. Gclknn-[id number] identified with tip in the SVC. Diffuse bilateral pleuroparenchymal changes are again identified and similar to prior examination. Blunting of the right costophrenic angle and diaphragmatic surface is likely chronic although small pleural fluid cannot be excluded. No pneumothorax. Skeletal structures intact. IMPRESSION: Findings appear relatively chronic and stable. However, fluid at the right base cannot be excluded. <Electronically signed by Ashok Mills > 10/01/20 0721
== END ==
LOC: M RAD 13:08
PROVIDERS: ATTEND Internal Medicine Pulmonary Disease
DX: J44.9 Chronic obstructive pulmonary disease, unspecified (principal)

== ENCOUNTER → 2020-11-04 | Outpatient (CLI) | payer OTHER ==
--- NOTE | 2020-11-05 08:10 | REP ---
INDICATION: LUNG CA COMPARISON: 06/24/2020 TECHNIQUE: Axial noncontrast images from the lung bases to the pubic symphysis with coronal and sagittal reformations. This CT examination was performed using the following dose reduction techniques: Automated exposure control, adjustment of mA and/or kv according to the patient's size, and use of iterative reconstruction technique. FINDINGS: Liver, spleen, pancreas, bilateral adrenal glands and kidneys are normal. Gallbladder suggests small amount of layering sludge/gravel without acute cholecystitis. The enteric system is unremarkable and without obstruction or acute inflammatory process. Normal terminal ileum and appendix identified in the right lower quadrant. Sigmoid diverticulosis noted without acute diverticulitis. Pelvis demonstrates normal bladder and age-appropriate uterus/adnexa. No ascites. No free air. No adenopathy. No focal inflammatory stranding. Abdominal aorta without aneurysm. Musculoskeletal structures are intact and without acute osseous abnormality. IMPRESSION: No acute abdominopelvic pathology appreciated. No abdominopelvic metastatic disease suggested. <Electronically signed by Ashok Mills > 11/05/20 [id number]
--- NOTE | 2020-11-05 08:36 | REP ---
INDICATION: LUNG CA COMPARISON: 07/04/2020, 06/08/2020 TECHNIQUE: Axial noncontrast images from the thoracic inlet to the upper abdomen with coronal and sagittal reformations. This CT examination was performed using the following dose reduction techniques: Automated exposure control, adjustment of mA and/or kv according to the patient's size, and use of iterative reconstruction technique. FINDINGS: Marked advanced COPD/emphysematous changes with bilateral scarring and fibrosis again noted. Specifically, bilateral upper lobes (right greater than left) areas scarring with ovoid soft tissue components appears somewhat suspicious but relatively similar to prior examination. A right-sided chest tube is again identified and a small amount of residual right pleural fluid is noted without pneumothorax. No obvious significant new area of consolidation, definite new nodule or mass lesion is appreciated although comparison is somewhat limited due to the previous examination demonstrating continued moderate right hydropneumothorax. Tracheobronchial tree is patent. No current pneumothorax. No obvious adenopathy. Mediastinal structures including atherosclerotic changes to the thoracic aorta appear normal/stable. No cardiomegaly or pericardial effusion. Musculoskeletal structures without acute osseous abnormality. IMPRESSION: 1. Advanced chronic COPD/emphysematous changes with bilateral scarring and fibrosis including somewhat nodular areas of soft tissue and surrounding presumed scarring in the bilateral upper lung zones/apices (right greater than left). 2. Right chest tube in stable position. Small residual amount of right pleural fluid without pneumothorax noted. 3. No obvious new acute process as compared to prior examination although correlation and comparison is limited by the previous moderate hydropneumothorax. Consider 3 to 6 month follow-up examination to confirm chronic changes. <Electronically signed by Ashok Mills > 11/05/20 [id number]
== END ==
LOC: M RAD 17:40
PROVIDERS: ATTEND Internal Medicine Hematology & Oncology
DX: C34.90 Malignant neoplasm of unspecified part of unspecified bronchus or lung (principal); J44.9 Chronic obstructive pulmonary disease, unspecified; J90 Pleural effusion, not elsewhere classified; Z97.8 Presence of other specified devices

== ENCOUNTER 2021-02-06 08:36 | Emergency (ER) | payer OTHER ==
[~2021-02-06] VITALS: Ht 180.3 cm; Wt 76.8 kg
[~2021-02-06 08:36] MED LIST changes: +CVS5000S2 SL; +DOK1CAP4 PO; -DOK1CAP7 PO; +ESSE250T PO; -LISI2.5T2 PO; +LISI2.5T9 PO; -OLAN10TA2 PO; +OLAN1TAB20 PO
[2021-02-06 08:38] VITALS: BP 130/58
--- NOTE | 2021-02-06 09:29 | REP ---
INDICATION: right pleural effusion COMPARISON: 09/30/2020 TECHNIQUE: Portable AP view of the chest FINDINGS: Right-sided chest tube and right-sided Tiigar-V-Kmst with tip in the SVC/right atrium are identified. The cardiac silhouette is within normal limits and stable. The lung blackmon demonstrate chronic interstitial and emphysematous changes. The previously noted right pleural effusion appears improved/resolved. Trace right basilar fibroatelectatic changes and presumed chronic pleural reaction with blunting to the costophrenic angle and diaphragmatic surface noted. There appears to be an area of pleural thickening with adjacent elements of linear fibrosis along the periphery of the left upper lung zone which appears relatively similar to prior examination. Musculoskeletal structures are intact/stable. IMPRESSION: 1. Right-sided pleuroparenchymal changes as described above. Findings may represent chronic change and the previously noted right pleural effusion has improved/possibly completely resolved. 2. Diffuse chronic changes as noted above. Small subpleural density in the periphery of the left upper lung zone relatively similar to prior examination when allowing for variation in technique. <Electronically signed by Ashok Mills > 02/06/21 [id number]
[2021-02-06 09:56] LABS: BASO % 0.2 % (0.0-1.0); EOS # 0.1 10^3/uL (0.0-0.5); EOS % 1.3 % (0.0-3.0); HEMATOCRIT 34.1 % (42.0-52.0); LYMPH # 1.3 10^3/uL (1.5-5.0); MEAN CORPUSCULAR HEMOGLOBIN 27.5 pg (27.0-33.0); MEAN CORPUSCULAR HGB CONC 32.3 g/dl (32.0-36.5); MEAN CORPUSCULAR VOLUME 85.3 fl (80.0-96.0); MONO # 0.1 10^3/uL (0.0-0.8); MONO % 1.2 % (2.0-8.0); NEUTROPHILS # 8.5 10^3/uL (1.5-8.5); PLATELET COUNT, AUTOMATED 343 10^3/uL (150-450); WHITE BLOOD COUNT 10.1 10^3/uL (4.0-10.0)
[2021-02-06] MEDS ORDERED: PERC5TAB12 PO (11:18)
== END 2021-02-06 11:31 | disposition home or self-care (01) ==
LOC: M ED 08:36
DX: R10.9 Unspecified abdominal pain (principal); Z96.89 Presence of other specified functional implants; E11.9 Type 2 diabetes mellitus without complications; F17.200 Nicotine dependence, unspecified, uncomplicated; I10 Essential (primary) hypertension; J44.9 Chronic obstructive pulmonary disease, unspecified; I48.91 Unspecified atrial fibrillation; Z91.013 Allergy to seafood

== ENCOUNTER 2021-02-10 13:29 | Day surgery (SDC) | payer OTHER ==
[~2021-02-10] VITALS: Ht 180.3 cm; Wt 74.8 kg
[~2021-02-10 13:29] MED LIST changes: +FENO160T10; +LISI-898; +PERC5TAB12 PO
[2021-02-10] MEDS ORDERED: MIDAZOLAM INJ 2MG/2ML VIAL (J2250 PER 1MG) As Ordered ONE ×2 (13:45→14:37)
[2021-02-10] MEDS ORDERED: ceFAZolin SOD 2 GM in IV 1 EA IV ONE (13:55)
[2021-02-10] MEDS ORDERED: MUPIROCIN 2% OINT 22 GM TUBE TOP ONE (13:55)
[2021-02-10] MEDS ORDERED: LIDOCAINE 1% MDV 20ML VIAL As Ordered ONE (13:57)
[2021-02-10] MEDS ORDERED: BUPIVACAINE HCL 0.5% 30 ML VIAL As Ordered ONE (14:00)
[2021-02-10] MEDS ORDERED: BUPIVACAINE LIPOSOME/PF 1.3% 20ML VIAL (13.3MG/ML)(EXPAREL)(C9290 PER1MG) As Ordered ONE (14:01)
[2021-02-10] MEDS ORDERED: NS 1,000 ML IV SCH (14:25)
[2021-02-10] MEDS ORDERED: SODIUM CHLORIDE 0.9% INJ 10 ML SYR IV PRN (15:25)
--- NOTE | 2021-02-10 15:40 | RO ---
OPERATIVE NOTE DATE OF OPERATION: 02/10/2021 PREOPERATIVE DIAGNOSIS: Retained PleurX catheter, nonfunctional. POSTOPERATIVE DIAGNOSIS: Retained PleurX catheter, nonfunctional. PROCEDURE: Removal of PleurX catheter under moderate sedation. SURGEON: Dr. Ousmane Bethea DESCRIPTION OF PROCEDURE: Under satisfactory moderate sedation achieved eventually with 4 mg of Versed, patient was prepped and draped in the usual sterile fashion. The site overlying the healing collar was infiltrated with 1% lidocaine. Incision was made to include the exit site, as the healing collar was just past the exit site. The collar was identified, and adhesive tissue was removed from it. After completely removing the adhesive tissue, PleurX catheter could be removed very easily. The patient was prior on Eliquis, and there was a little bit of skin bleeding. The subcutaneous tissue was closed with running 3-0 Vicryl suture, and the skin was closed with running 4-0 Monopril subcuticular suture. As there was still bleeding from the old wound site, that was oversewn with a [id number] 2-0 silk. Dressing was placed after placing Dermabond on the superficial incision. Patient tolerated the procedure well and left the operating room in satisfactory condition to the recovery room.
[2021-02-10 15:46] VITALS: BP 122/60
[2021-02-11] MEDS ORDERED: SODIUM CHLORIDE 0.9% INJ 10 ML SYR IV SCH (09:00)
== END 2021-02-10 15:49 | disposition home or self-care (01) ==
LOC: M SDC 13:29
PROVIDERS: ATTEND Thoracic Surgery (Cardiothoracic Vascular Surgery)
DX: Z46.82 Encounter for fitting and adjustment of non-vascular catheter (principal); Z85.118 Personal history of other malignant neoplasm of bronchus and lung; E11.9 Type 2 diabetes mellitus without complications; I10 Essential (primary) hypertension; J96.11 Chronic respiratory failure with hypoxia; J43.9 Emphysema, unspecified; Z79.84 Long term (current) use of oral hypoglycemic drugs; Z79.01 Long term (current) use of anticoagulants; Z87.891 Personal history of nicotine dependence; Z79.82 Long term (current) use of aspirin
CPT/HCPCS: 32552; C9290; J0690; J1642; J2250; U0002

== ENCOUNTER 2021-02-17 16:18 | Inpatient (IN) | payer OTHER ==
[~2021-02-17] VITALS: Ht 180.3 cm; Wt 78.0 kg
[2021-02-17] MEDS ORDERED: MORPHINE 4 MG/ML 1ML VIAL/SYRINGE (J2270) IV ONE ×2 (16:55→21:50)
[2021-02-17 17:44] LABS: BASO % 0.2 % (0.0-1.0); EOS # 0.1 10^3/uL (0.0-0.5); EOS % 1.2 % (0.0-3.0); HEMATOCRIT 34.3 % (42.0-52.0); LYMPH # 1.2 10^3/uL (1.5-5.0); LYMPH % 12.8 % (24.0-44.0); MEAN CORPUSCULAR HEMOGLOBIN 27.7 pg (27.0-33.0); MEAN CORPUSCULAR HGB CONC 32.1 g/dl (32.0-36.5); MEAN CORPUSCULAR VOLUME 86.4 fl (80.0-96.0); MONO # 1.2 10^3/uL (0.0-0.8); MONO % 12.6 % (2.0-8.0); NEUTROPHILS # 6.7 10^3/uL (1.5-8.5); NEUTROPHILS % 72.8 % (36.0-66.0); PLATELET COUNT, AUTOMATED 273 10^3/uL (150-450); RED BLOOD COUNT 3.97 10^6/uL (4.30-6.10); WHITE BLOOD COUNT 9.2 10^3/uL (4.0-10.0)
--- NOTE | 2021-02-17 18:03 | REPVR ---
PROCEDURE INFORMATION: Exam: CT Chest Without Contrast; Diagnostic Exam date and time: 02/17/2021 5:26 PM Age: 65 years old Clinical indication: Pain; Right-sided; Additional info: Right rib pain ? met per Dr. Bethea TECHNIQUE: Imaging protocol: Diagnostic computed tomography of the chest without contrast. 3D rendering (Not supervised by radiologist): MIP and/or 3D reconstructed images were created by the technologist. Radiation optimization: All CT scans at this facility use at least one of these dose optimization techniques: automated exposure control; mA and/or kV adjustment per patient size (includes targeted exams where dose is matched to clinical indication); or iterative reconstruction. COMPARISON: CT Chest without contrast 11/04/2020 5:54 PM FINDINGS: Tubes, catheters and devices: Right IJ vascular catheter extends to the cavoatrial junction. Lungs: Ovoid plaque-like opacity at the posterior right lung base measuring 2.8 x 1.1 cm on image 92 is unchanged since the prior CT. Interlobular septal thickening is present in the right lung. Right upper lobe demonstrates a spiculated posterior apical lesion measuring 3.6 x 2.0 cm, unchanged, and the lateral left lung apex demonstrates an area of probable scarring laterally on image 37, also unchanged. Underlying apical predominant centrilobular emphysema is present. Incidental right lower lobe calcified granuloma. Pleural spaces: . Small right pleural effusion is present measuring 10 mm in thickness, with interval removal of the prior pigtail catheter. No pneumothorax. Heart: . No pericardial effusion. Aorta: Thoracic aorta shows atherosclerotic change. No focal aneurysm. Great vessels off aortic arch: Atherosclerotic calcifications in the coronary vessels. Lymph nodes: No enlarged lymph nodes. Bones/joints: Thoracic spine degenerative changes are present and postsurgical changes are seen in the lower cervical spine. No destructive rib lesion. Soft tissues: Unremarkable. Other findings: Limited study without IV contrast. IMPRESSION: 1. Small right pleural effusion with organized appearing margins, measuring up to 1 cm in thickness, perhaps minimally improved in sized after removal of the pigtail catheter. 2. No evidence of a destructive or blastic rib lesion. 3. Stable bilateral lung opacities which could be inflammatory or neoplastic, with underlying advanced centrilobular emphysema. No new or enlarging lung lesion Electronically signed by: Jorden Andrea On 02/17/2021 18:03:24 PM
[2021-02-17 19:04] LABS: ALBUMIN 2.7 GM/DL (3.2-5.2); ALT/SGPT 108 U/L (12-78); BILIRUBIN,DIRECT < 0.1 MG/DL (0.0-0.2); BILIRUBIN,TOTAL 0.3 MG/DL (0.2-1.0); BLOOD UREA NITROGEN 8 MG/DL (7-18); CALCIUM LEVEL 9.4 MG/DL (8.8-10.2); CARBON DIOXIDE LEVEL 27 MEQ/L (21-32); CHLORIDE LEVEL 105 MEQ/L (98-107); CK-MB VALUE MASS 1.9 NG/ML (<3.6); CPK CREATINE PHOSPHOKINASE 66 U/L (39-308); CREATININE FOR GFR 0.79 MG/DL (0.70-1.30); GLOMERULAR FILTRATION RATE > 60.0 (>49); GLUCOSE, FASTING 133 MG/DL (70-100); LIPASE 53 U/L (73-393); MB/CK RELATIVE INDEX 2.88 (< OR =4); NT-PRO BNP 354 PG/ML (<125); POTASSIUM SERUM 4.3 MEQ/L (3.5-5.1); SODIUM LEVEL 138 MEQ/L (136-145); TOTAL PROTEIN 6.7 GM/DL (6.4-8.2); TROPONIN I < 0.02 NG/ML (< 0.10)
[2021-02-17] MEDS ORDERED: LEVALBUTEROL 1.25 MG/0.5 ML CONCENTRATE NEB NEB PRN (19:35)
[2021-02-17] MEDS ORDERED: NORCO, ANEXSIA 5/325MG TABLET (HYDROcodone/ACETAMINOPHEN) PO PRN (19:35)
[2021-02-17] MEDS ORDERED: BISACODYL 10 MG SUPP PR PRN (19:35)
[2021-02-17] MEDS ORDERED: PERCOCET 5MG/325MG TAB PO PRN ×2 (19:35)
[2021-02-17] MEDS ORDERED: ACETAMINOPHEN TAB 650MG DOSE (2X325MG) PO PRN (19:35)
[2021-02-17] MEDS ORDERED: ONDANSETRON 4MG/2ML VIAL IV PRN (19:35)
[2021-02-17] MEDS ORDERED: KETOROLAC 30 MG/ML 1ML VIAL IV SCH (20:00)
[2021-02-17] MEDS: LEVALBUTEROL 1.25 MG/0.5 ML CONCENTRATE NEB NEB SCH (20:00)
[2021-02-17] MEDS ORDERED: NALOXONE INJ 0.4MG/1ML VIAL (J2310 PER 1MG) IV PRN ×2 (20:10)
[2021-02-17] MEDS ORDERED: diphenhydrAMINE 50MG/ML VIAL (J1200) IV PRN ×2 (20:10)
[2021-02-17] MEDS ORDERED: EPIDURAL/PCA KEYS XX PRN ×2 (20:10)
[2021-02-17] MEDS ORDERED: NS 1,000 ML IV SCH (20:10)
[2021-02-17] MEDS ORDERED: ACETAMINOPHEN 325 MG TAB PO PRN (20:10)
[2021-02-17] MEDS ORDERED: MORPHINE 1MG/ML IN 0.9% NACL 100ML IV BAG IV PRN (20:10)
[2021-02-17] MEDS ORDERED: NALBUPHINE HCL 10 MG/ML AMP (J2300) IV PRN (20:10)
--- NOTE | 2021-02-17 20:16 | ECGEPIP ---
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
[2021-02-17] MEDS: DOCUSATE SODIUM 100MG CAPSULE PO SCH (20:42)
[2021-02-17] MEDS: ACETAMINOPHEN 500 MG TAB PO SCH (20:42)
[2021-02-17] MEDS: NS 1,000 ML IV SCH (20:43)
[2021-02-17] MEDS ORDERED: FENO160T10 PO (20:52)
[2021-02-17] MEDS ORDERED: SPIR1CAP INH (20:52)
[2021-02-17] MEDS ORDERED: METO25TA4 PO (20:52)
[2021-02-17] MEDS ORDERED: HYDR-4517 PO (20:52)
[2021-02-17] MEDS ORDERED: LISI-898 PO (20:52)
[2021-02-17] MEDS ORDERED: IPRA0.00 INH (20:52)
[2021-02-17] MEDS ORDERED: B-12100021 PO (20:52)
[2021-02-17] MEDS ORDERED: DOCU100C16 PO (20:52)
[2021-02-17] MEDS ORDERED: HOME MED LIST COMPLETE! XX SCH (20:55)
[2021-02-17] MEDS ORDERED: IPRATROPIUM 0.5MG/ALBUTEROL 2.5MG INH SOL UD 3ML (DUONEB) INH PRN (21:00)
[2021-02-17] MEDS ORDERED: OLANZapine 10 MG TAB PO PRN (21:00)
[2021-02-17 21:08] LABS: RSV AMPLIFICATION NEGATIVE (NEGATIVE)
[2021-02-17] MEDS: KCL 20MEQ IN D5/NS 1000ML 1,000 ML IV SCH (22:09)
[2021-02-17 23:00] VITALS: BP 150/67
[2021-02-17] MEDS ORDERED: flumazeniL 0.5 MG/5 ML VIAL As Ordered ONE (23:07)
[2021-02-17] MEDS ORDERED: MIDAZOLAM INJ 2MG/2ML VIAL (J2250 PER 1MG) As Ordered ONE ×2 (23:07→23:08)
[2021-02-17] MEDS ORDERED: LIDOCAINE 1% MDV 20ML VIAL As Ordered ONE (23:08)
[2021-02-17 23:24] VITALS: BP 168/74
[2021-02-17] MEDS: MORPHINE 1MG/ML IN 0.9% NACL 100ML IV BAG IV PRN (23:51)
[2021-02-18] VITALS (11 sets, daily range): BP systolic 108–161; BP diastolic 58–78
[2021-02-18] MEDS: LEVALBUTEROL 1.25 MG/0.5 ML CONCENTRATE NEB NEB SCH ×4 (01:08→20:00)
[2021-02-18] MEDS: LISINOPRIL *2.5 MG* TAB PO SCH ×2 (02:28→21:10)
[2021-02-18] MEDS: METOPROLOL TART 25 MG TABLET PO SCH ×3 (02:29→21:09)
[2021-02-18] MEDS ORDERED: GLUCOSE 4GM CHEW TABLET PO PRN (03:30)
[2021-02-18] MEDS ORDERED: DEXTROSE 50% 50 ML SYRINGE IV PRN (03:30)
[2021-02-18] MEDS ORDERED: GLUCAGON INJ 1MG VIAL SC PRN (03:30)
--- NOTE | 2021-02-18 03:33 | HPEPDOC ---
General Date of Admission Feb 17, 2021 at 19:35 Date of Service: Feb 17, 2021 Chief Complaint The patient is a 65-year-old male admitted with a reason for visit of Metastatic Lung Cancer (Mets From Lung To [facility] Site. History of Present Illness Mr. 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 Over the past month, patient's been having right-sided chest pain which runs along the Pleurx catheter. In the past 2 weeks he has not slept very well. The chest pain is sharp rating 8 out of 10 to 10 out of 10. Breathing makes the pain worse and certain positions can make the pain better. Patient is feeling short of breath due to this. Otherwise reports a dry cough. Recently, on February 10, patient had Pleurx catheter removed. Despite removal, he continues to have pain within this distribution. Patient came to the ED for evaluation. CT of the chest without contrast does not demonstrate any acute process. Dr. Bethea recommends admission for pain control with EVENTS AND PROMOTIONS ASSISTANT. Otherwise when I saw the patient, he complained of lower abdominal pain secondary to constipation which is not new. Also reports having some difficulty urinating. Patient will be admitted for intractable chest pain. Home Medications Scheduled Apixaban (Eliquis) 5 Mg Tablet, 5 MG PO BID, (Reported) Aspirin (Aspirin EC) 81 Mg Tablet.dr, 81 MG PO DAILY, (Reported) Atorvastatin Calcium (Atorvastatin Calcium) 20 Mg Tablet, 20 MG PO DAILY, (Reported) Budesonide/Formoterol (Symbicort 160-4.5 Mcg Inhaler) 6 Gm Hfa.aer.ad, 2 PUFF INH BID, (Reported) Cyanocobalamin (Vitamin B-12) (B-12) 1,000 Mcg Tablet, 1,000 MCG PO BID, (Reported) Dexamethasone (Decadron) 4 Mg Tablet, 4 MG PO BID day before chemotherapy day of chemotherapy day after chemotherapy for six cycles Docusate Sodium (Docusate Sodium) 100 Mg Capsule, 100 MG PO BID, (Reported) Fenofibrate (Fenofibrate) 160 Mg Tablet, 160 MG PO DAILY, (Reported) Folic Acid (Folic Acid) 1 Mg Tablet, 1 TAB PO DAILY Ipratropium/Albuterol Sulfate (Iprat-Albut 0.5-3(2.5) mg/3 ml) 3 Ml Ampul.neb, 3 ML INH BID, (Reported) Lisinopril (Lisinopril) 5 Mg Tablet, 2.5 MG PO QHS, (Reported) Magnesium Oxide (Magnesium Oxide) 250 Mg Tablet, 250 MG PO DAILY Metformin HCl (Metformin HCl) 500 Mg Tablet, 500 MG PO BID, (Reported) Metoprolol Tartrate (Metoprolol Tartrate) 25 Mg Tablet, 25 MG PO BID, (Reported) Multivitamins (Thera M Plus Tablet) 1 Each Tablet, 1 TAB PO DAILY, (Reported) Naproxen Sodium (Aleve) 220 Mg Tablet, 440 MG PO BID, (Reported) Pantoprazole Sodium (Pantoprazole Sodium) 40 Mg Tablet.dr, 40 MG PO DAILY, (Reported) Tiotropium [place] (Spiriva) 18 Mcg Cap.w.dev, 1 INHALATION INH DAILY, (Reported) Scheduled PRN Albuterol Sulfate (Proair Hfa) 8.5 Gm Hfa.aer.ad, 2 PUFF INH Q6H PRN for SHORTNESS OF BREATH, (Reported) Docusate Sodium (Docusate Sodium) 100 Mg Capsule, 100 MG PO DAILY PRN for CONSTIPATION, (Reported) NEEDED FOR ADDITIONAL BOWEL CARE Hydrocodone/Acetaminophen (Hydrocodone-Acetamin 10-325 mg) 1 Each Tablet, 1 TAB PO TID PRN for MODERATE/SEVERE PAIN (PS 5-10), (Reported) Ipratropium/Albuterol Sulfate (Iprat-Albut 0.5-3(2.5) mg/3 ml) 3 Ml Ampul.neb, 3 ML INH BID PRN for SHORTNESS OF BREATH, (Reported) Olanzapine (Olanzapine) 10 Mg Tablet, 10 MG PO DAILY PRN for SEVERE NAUSEA Ondansetron HCl (Ondansetron HCl) 8 Mg Tablet, 8 MG PO Q6H PRN for NAUSEA OR VOM ITING Allergies Coded Allergies: shellfish derived (Verified Allergy, Severe, hives, ANAPHYLAXIS, 02/10/21) Past Medical History Medical History 1. 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 Diabetes mellitus 3. COPD 4. Atrial fibrillation 5. Hypertension 6. History of DVT and PE Surgical History 1. Neck surgery 2. Left shoulder surgery 3. Left carpal tunnel surgery 4. Cataracts Family History Father: History of CAD Mother: History of brain aneurysm Social History * Smoker: Denies Alcohol: Denies Drugs: marijuana (Once or twice a week) A-FIB/CHADSVASC A-FIB History Current/History of A-Fib/PAF?: Yes Current PO Anticoag Therapy: Yes Review of Systems Constitutional: Denies: Chills, Fever Eyes: Denies: Vision change ENT: Reports: Other Symptoms (Dry throat) Skin: Denies: Rash Pulmonary: Reports: Dyspnea, Cough (Dry cough) Cardiovascular: Reports: Chest Pain Gastrointestinal: Reports: Abdominal Pain (Lower abdominal pain secondary to constipation), Constipation; Denies: Diarrhea Genitourinary: Reports: Other Symptoms (Difficulty urinating); Denies: Dysuria Hematologic: Denies: Bruising Neurological: Denies: Numbness Psych: Reports: Anxiety, Depression Physical Examination General Exam: Positive: Alert, Cooperative Eye Exam: Positive: EOMI; Negative: Sclera icteric ENT Exam: Positive: Atraumatic Neck Exam: Positive: Supple Chest Exam: Positive: Clear to auscultation Heart Exam: Positive: Rate Normal, Regular Rhythm Abdomen Exam: Positive: Normal bowel sounds, Soft Extremity Exam: Negative: Edema Neuro Exam: Positive: Normal Speech, Cranial Nerves 3-12 NL Psych Exam: Positive: Mental status NL, Mood NL Vital Signs Vital Signs Date Time Temp Pulse Resp B/P (MAP) Pulse Ox O2 Delivery O2 Flow Rate FiO2 02/17/21 20:47 02/17/21 20:47 96.7 78 19 95 Room Air Laboratory Data Labs 24H Laboratory Tests 2 02/17/21 17:22: Immature Granulocyte % (Auto) 0.4, Neutrophils (%) (Auto) 72.8H, Lymphocytes (%) (Auto) 12.8L, Monocytes (%) (Auto) 12.6H, Eosinophils (%) (Auto) 1.2, Basophils (%) (Auto) 0.2, Neutrophils # (Auto) 6.7, Lymphocytes # (Auto) 1.2L, Monocytes # (Auto) 1.2H, Eosinophils # (Auto) 0.1, Basophils # (Auto) 0.0, Nucleated Red Blood Cells % (auto) 0.0, Anion Gap 6L, Glomerular Filtration Rate > 60.0, Calcium Level 9.4, Total Bilirubin 0.3, Direct Bilirubin < 0.1, Aspartate Amino Transf (AST/SGOT) 51H, Alanine Aminotransferase (ALT/SGPT) 108H, Alkaline Phosphatase 89, Total Creatine Kinase 66, Creatine Kinase MB 1.9, Creatine Holly se MB Relative Index 2.88, Troponin I < 0.02, VS-Pac-J-Type Natriuretic Peptide 354H, Total Protein 6.7, Albumin 2.7L, Albumin/Globulin Ratio 0.7, Lipase 53L 02/17/21 20:07: CBC/BMP Laboratory Tests 02/17/21 17:22 Assessment/Plan Mr. Ratliff is a 65-year-old male with stage IV adenocarcinoma with malignant pleural effusion who is here for persistent right chest pain after Pleurx catheter removal. Unclear etiology to pain, but possibly secondary to malignancy. We will work on pain control. Dr. Bethea had requested a morphine EVENTS AND PROMOTIONS ASSISTANT pump. In the meantime we will also continue his naproxen 500 mg twice daily and add acetaminophen at 1000 mg 3 times daily. Plan / VTE VTE Prophylaxis Ordered?: Yes Plan Plan 1. Intractable chest pain Unclear etiology, possibly cancer related Dr. Bethea consulted, recommendations appreciated Morphine EVENTS AND PROMOTIONS ASSISTANT pump for as needed pain Naproxen and acetaminophen for baseline pain control 2. Atrial fibrillation Continue Lopressor Hold Eliquis in case if this procedure is planned 3. Hypertension Continue lisinopril and Lopressor 4. Constipation Colace twice daily As needed milk of mag and as needed Dulcolax suppository 5. Diabetes mellitus type 2 Hold Metformin Sliding scale insulin and carbohydrate consistent diet 6. DVT prophylaxis SCDs and teds If no procedure is planned can resume Eliquis Disposition: Pending pain control DESTINEY LAUGHLIN DO Feb 18, 2021 01:25
[2021-02-18 05:44] LABS: BASO % 0.2 % (0.0-1.0); EOS # 0.2 10^3/uL (0.0-0.5); EOS % 2.1 % (0.0-3.0); HEMATOCRIT 33.9 % (42.0-52.0); HEMOGLOBIN 10.6 g/dl (13.5-17.5); LYMPH # 1.3 10^3/uL (1.5-5.0); MEAN CORPUSCULAR HEMOGLOBIN 27.2 pg (27.0-33.0); MEAN CORPUSCULAR HGB CONC 31.3 g/dl (32.0-36.5); MEAN CORPUSCULAR VOLUME 87.1 fl (80.0-96.0); MONO # 1.2 10^3/uL (0.0-0.8); MONO % 14.1 % (2.0-8.0); NEUTROPHILS # 5.5 10^3/uL (1.5-8.5); PLATELET COUNT, AUTOMATED 280 10^3/uL (150-450); RED BLOOD COUNT 3.89 10^6/uL (4.30-6.10); WHITE BLOOD COUNT 8.2 10^3/uL (4.0-10.0)
[2021-02-18 06:11] LABS: BLOOD UREA NITROGEN 8 MG/DL (7-18); CALCIUM LEVEL 9.3 MG/DL (8.8-10.2); CARBON DIOXIDE LEVEL 29 MEQ/L (21-32); CHLORIDE LEVEL 104 MEQ/L (98-107); CREATININE FOR GFR 0.74 MG/DL (0.70-1.30); GLOMERULAR FILTRATION RATE > 60.0 (>49); GLUCOSE, FASTING 136 MG/DL (70-100); SODIUM LEVEL 136 MEQ/L (136-145)
[2021-02-18] MEDS: TIOTROPIUM INHALER/CAPSULE (SPIRIVA) INH SCH (07:20)
[2021-02-18] MEDS: SYMBICORT 160/4.5MCG INHALER 6GM INH SCH ×2 (07:20→20:06)
--- NOTE | 2021-02-18 08:23 | REP ---
INDICATION: pleural effuiosn. COMPARISON: Comparison chest x-ray February 06, 2021. TECHNIQUE: Two views.. FINDINGS: Right-sided Nxhvys-L-Pbbq catheter is again noted in place. EKG monitoring electrodes are seen. Patient is status post cervical spine fusion plating. There is blunting of the right lateral pleural angle with some pleural on the right again noted. In the interval since the February 06, 2021 study, the right-sided PleurX catheter appears to have been removed. There is no evidence of pneumothorax. Pleural thickening is very slightly more prominent. Interstitial markings are increased in the right base unchanged. There is some linear pleuroparenchymal fibrosis in the left upper lobe region unchanged. IMPRESSION: The right PleurX catheter is been removed. Slight blunting of the right lateral pleural angle and right pleural thickening. Increased interstitial markings right base unchanged. <Electronically signed by Puneet Ashton > 02/18/21 [id number]
[2021-02-18] MEDS: HumaLOG INSULIN (NovoLOG) PER UNIT SC SCH ×4 (08:25→21:00)
[2021-02-18] MEDS ORDERED: NAPROXEN 250 MG TAB PO SCH (09:00)
[2021-02-18] MEDS ORDERED: ISOVUE-370 76% 100ML VIAL As Ordered ONE (09:11)
--- NOTE | 2021-02-18 09:19 | CR ---
CONSULTATION DATE: 02/17/2021 REASON FOR CONSULTATION: The patient is being seen at the request of the emergency room after he called our office to complain of intractable pain. HISTORY OF PRESENT ILLNESS: The patient is a 62-year-old white male with known right upper lobe lesion with malignant pleural effusion, who is PD-L1 negative, ALK negative, EGFR negative , BRAF negative ROS1, negative, as well as KRAS, negative. He has a 3.26 speculated mass in the right upper lobe. A PleurX catheter was placed because of his recurrent pleural effusions last year. He has been previously treated with carboplatin, pemetrexed and bevacizumab. There was not really a good explanation as to why his PleurX catheter was so painful prior to its removal, except for the possibility that he had lost so much weight and that the catheter, which had been going through subcutaneous tissue was now in contact with the dermis with tendon nerve endings and was giving him pain. As the PleurX catheter had not been draining and his pleural effusion was well controlled, it was removed and yet he still has intractable pain along the PleurX site. He has not had any cough. He has had no fevers, chills or sweats. He is eating, but not well, has a lack of appetite. He has been maintained on oral pain control consisting of Percocet. He has had no dysphagia and no undue shortness of breath. PAST MEDICAL HISTORY: 1. Diabetes. 2. Chronic obstructive pulmonary disease (COPD). 3. Atrial fibrillation. 4. Hypertension. 5. Status post deep venous thrombosis (DVT) and pulmonary embolism. PAST SURGICAL HISTORY: Neck and shoulder surgery along with left carpal tunnel surgery and cataracts. HABITS: He smoked 1-1/2 packs per day and buys occasionally alcohol. FAMILY HISTORY: Not pertinent to the acute situation. REVIEW OF SYSTEMS: Constitutional: See history of present illness, without fevers, chills, sweats or night sweats. Eyes: No diplopia or jaundice. No amaurosis fugax. Nose: No epistaxis. Respiratory: See history of present illness. Cardiac: Without prior history of myocardial infarctions or intermittent claudication. He does have atrial fibrillation. Gastrointestinal (GI): Without nausea, vomiting, diarrhea or constipation. No hematochezia or hematemesis or abdominal pain. Genitourinary (): Without dysuria or hematuria or history of renal stones. Neurologic: Without paresthesia, paralysis or prior seizures. Psychiatric: Without pathologic anxieties, depressions or psychoses. PHYSICAL EXAMINATION: An underweight, white male, looking older than his stated age, complaining of intense pain in his right lower hemithorax. Vital signs: Temperature is 96.7 with a respiratory rate of 19 without the use of accessory muscles. He is 95% saturated on room air. His blood pressure is 134/76. Eyes: Pupils equal, round and reactive to light. Extraocular motions are intact. Sclerae anicteric. Nose: Without deformity. Mouth shows mucous membranes to be pink and moist. Lips and commissures without lesions or thrush. Neck is supple. There is no jugular venous distention. No subcutaneous emphysema. Trachea is midline. Lungs show equal breath sounds on either side without wheezes, rhonchi or rales. Percussion is full at the diaphragm. He is exquisitely tender along the previous PleurX catheter site. Cardiac examination without murmurs, clicks, gallops or rubs. I cannot feel his PMI. S1, S2 are normal. Abdomen: Soft and nontender. Bowel sounds are positive. There is hepatomegaly. No costovertebral angle (CVA) tenderness. Extremities show no pretibial edema, no calf tenderness. No differential swelling of the upper extremities. His skin is warm, dry and perfuse without cyanosis or mottling including nailbeds and knees. Neuro: CN II-XII intact with gross motor intact. Gait is not tested. Psychiatric: Alert, awake and oriented times 3 with appropriate mood and affect and conversational. LABORATORY DATA: His white count today is 9.2 with hemoglobin and hematocrit of 11.0 and 34.3 with a platelet count of 273. Differentials are 72% neutrophils, 12% lymphocytes, 12% monocytes. No immature forms or toxic granulations. His chemistry shows normal electrolytes with BUN and creatinine of 8 and 0.79, a glucose of 133 with a calcium of 9.4. AST and ALT are 51 and 108 respectively. Troponin is less than 0.02. His albumin is 2.7. His chest CT shows a possible intercostal mass lesion, in the 7th intercostal space between the 7th and 8th ribs on image 88 on series 202. I am not sure if this represents a metastatic lesion. There is a very small pleural effusion, which has some pleural thickening on either side of it. It is very small. I am wondering whether this is not the offender that is causing him such intractable pain. His right upper lobe lung mass is quite evident. He has extensive bullous emphysematous disease. There is volume loss to the right side. I do not see the medical record where he has undergone radiation therapy. IMPRESSION: 1. Right upper lobe malignancy. 2. Adenocarcinoma. 3. Malignancy pleural effusion. 4. Possible metastatic intercostal implant, maybe even along the PleurX catheter tract. 5. Intractable pain. 6. Diabetes. 7. Chronic obstructive pulmonary disease (COPD). 8. Severe bullous disease. PLAN/DISCUSSION: He is going to be admitted to the hospital for pain control. I will start him on a WOOD CLUB NECK WHIPPER pump. Tomorrow, I will go over the CT scan with the radiologist. I am very suspicious that this represents a metastatic implant either along the PleurX catheter site or at least intercostally in the 7th intercostal space. He may be a candidate for palliative radiation therapy.
--- NOTE | 2021-02-18 09:56 | REP ---
INDICATION: ? intercostal tumor implant COMPARISON: 02/17/2021 TECHNIQUE: Axial contrast enhanced images from the thoracic inlet to the upper abdomen with coronal and sagittal reformations using 75 ml Isovue 370 intravenous contrast material. This CT examination was performed using the following dose reduction techniques: Automated exposure control, adjustment of mA and/or kv according to the patient's size, and use of iterative reconstruction technique. FINDINGS: A somewhat irregular ovoid area density in the posterior right apex with spiculated margins/fibrosis measuring 3.6 x 2.1 cm and an area of pleuroparenchymal scarring along the lateral aspect of the left upper lung zone at the same level are again identified and remain essentially unchanged in appearance. Right basilar interstitial thickening and ill-defined areas of opacity along with small right pleural effusion are also identified and appear essentially stable. Findings are nonspecific and suggest neoplasm versus inflammatory process. Underlying advanced COPD/emphysematous changes and scattered scarring are also again identified and unchanged. Further evaluation of the mediastinum demonstrates subcarinal and predominately right hilar adenopathy with right hilar lymph node measuring up to 2 cm diameter. Thoracic aorta, pulmonary vasculature, and heart/pericardium are relatively stable. [id number] identified with tip in the right atrium. Surrounding musculoskeletal structures demonstrate age-related degenerative changes and old healed rib fractures without obvious acute process. IMPRESSION: Bilateral pleuroparenchymal changes (right greater than left) essentially unchanged. Findings as described above. No obvious intercostal tumor implant identified. <Electronically signed by Ashok Mills > 02/18/21 0964
[2021-02-18] MEDS: ACETAMINOPHEN 500 MG TAB PO SCH ×3 (09:57→21:09)
[2021-02-18] MEDS: ASPIRIN 81MG ENTERIC TABLET PO SCH (09:59)
[2021-02-18] MEDS: KETOROLAC 30 MG/ML 1ML VIAL IV SCH ×3 (09:59→21:10)
[2021-02-18] MEDS: TAMSULOSIN 0.4 MG CAP PO SCH (09:59)
[2021-02-18] MEDS: PANTOPRAZOLE 40MG TAB (PROTONIX) PO SCH (09:59)
[2021-02-18] MEDS: MOM 30ML SUSPENSION UDC PO SCH (09:59)
[2021-02-18] MEDS: ATORVASTATIN 20 MG TAB PO SCH (10:00)
[2021-02-18] MEDS: MULTIVITAMINS/MINERALS THERAP 1 TAB PO SCH (10:00)
[2021-02-18] MEDS: FOLIC ACID 1 MG TAB PO SCH (10:00)
[2021-02-18] MEDS: DOCUSATE SODIUM 100MG CAPSULE PO SCH ×2 (10:00→21:00)
[2021-02-18] MEDS: KCL 20MEQ IN D5/NS 1000ML 1,000 ML IV SCH (10:01)
--- NOTE | 2021-02-18 11:44 | IPN ---
PROGRESS NOTE DATE: 02/18/2021 SUBJECTIVE: Mr. Ratliff is feeling much better today. His intractable pain is now easing. He is on a RESEARCH COORDINATOR pump. For some reason the Toradol I wrote was discontinued and I have re-instituted it. As he was admitted for intractable pain, I had no idea why it was discontinued. His vital signs shows a T-max of 98.6 with a heart rate that ranges between 65 and 99, in sinus rhythm, respiratory rate 17 to 24 without the use of accessory muscles who is 88 to 100% saturated on 2 liters of nasal cannula. His blood pressure is ranging between 130/69 to 161/71. His intake and output over the past 24 hours has been recorded as 210 in and nothing out. He weighs 75 kilos today compared to 77.27 kilos yesterday. OBJECTIVE: Lungs show normal vesicular sounds on either side. Percussion is full at the diaphragm. Cardiac examination without murmurs, clicks, gallops or rubs. I cannot feel his PMI. S1, S2 are normal. Abdomen: Soft and nontender. Bowel sounds are positive. There is no hepatomegaly. No CVA tenderness. The PleurX catheter is laundry machine tender to light palpation. Extremities show no pretibial edema, no calf tenderness. No differential swelling of the upper extremities. His skin is warm, dry and perfused without cyanosis or mottling including nailbeds and knees. Neck is supple. There is no jugular venous distention. No subcutaneous emphysema. Trachea is midline. Mouth shows the mucous membranes to be pink and moist. Lips and commissures without lesions or thrush. Eyes shows the pupils equal and reactive. Extraocular motions are intact. Sclera nonicteric. Neurologic: Cranial nerves II through XII intact. Normal gross motor, gross sensation intact. Gait is not tested. Psychiatric: Alert, awake and oriented times 3 with appropriate mood and affect and conversational. LABORATORY DATA: His white count today is 8.2 with a hemoglobin and hematocrit of 10.6 and 33.9, essentially unchanged from yesterday with a platelet count of __ and stable. Differential shows 67% neutrophils, 16% lymphocytes and 4% monocytes. There are no immature forms or toxic granulations. His chemistries today show a normal white count with a BUN and creatinine of 8 and 0.74, glucose of 136 and a calcium of 9.3. His chest x-ray today shows his lung fully expanded to the chest wall. There looks to be some volume loss on the right side, unchanged from yesterday. I do see both costophrenic angles. I do not see any overwhelming infiltrates. IMPRESSION: 1. Metastatic adenocarcinoma with a malignant pleural effusion with the original tumor in the right upper lobe. 2. Atrial fibrillation. 3. COPD. 4. Hypertension. 5. Status post deep vein thrombosis and pulmonary embolism in the past. 6. Intractable pain. 7. Possible metastatic intercostal implant along the PleurX catheter tract. 8. Diabetes. 9. Severe bullous disease. PLAN/DISCUSSION: I have discussed the findings of the chest CT with the intercostal space lesion with Radiology. Radiology is not convinced so we will undertake yet another CT scan with contrast for better delineation. If I am to pursue palliative radiation for pain control, we will have to biopsy that lesion. For now, will keep him on the RESEARCH COORDINATOR pump and I have again re-instituted the Toradol.
--- NOTE | 2021-02-18 12:37 | IPNPDOC ---
Text Note Date of Service The patient was seen on 02/18/21. NOTE Subjective: Patient is a 65-year-old male with stage IV adenocarcinoma with ma lignant pleural effusion who is here for right persistent chest pain after Pleurx catheter removal. Patient states that the pain is 8 out of 10 on admission. Breathing makes the pain worse. Certain positions can make the pain better. Patient was admitted for intractable pain based on Dr. Bethea's recommendations. Patient has a COAT TAILOR pump and has been given Toradol for the pain. Dr. Bethea is following along with the patient. Patient says he is feeling better this morning. Review of systems: General: Patient denies fevers HEENT: Patient denies headaches Cardiovascular: Patient reports right-sided chest pain around where his Pleurx catheter site was. Respiratory: Patient denies shortness of breath, cough GI: Patient denies abdominal pain, nausea, vomiting, diarrhea : Patient denies increased frequency or pain with urination Extremities: Patient denies swelling or pain in extremities Neurological: Patient denies numbness or tingling in legs Physical exam: Vitals: See below General: Alert and oriented male patient who was sitting up in bedside chair and walked in the room. Patient did not appear to be in any acute distress. HEENT: Normocephalic, atraumatic, moist mucous membranes. Neck: No lymphadenopathy or thyromegaly Cardiac: Regular rate and rhythm, no murmurs, normal S1, normal S2 Pulm: Clear to auscultation bilaterally. No wheezes, rhonchi, rales Abd: Nondistended, nontender to palpation, normal bowel sounds Ext: No edema bilateral lower extremities Labs: See below Imaging: CT of the chest with contrast performed on 02/18/2021 was reported to show bilateral pleural-parenchymal changes (right greater than left) essentially unchanged. No obvious intercostal tumor implant identified. Underlying advanced COPD/emphysematous changes and scattered scarring are also again identified and unchanged. Assessment/plan: 65-year-old male with a history of stage IV adenocarcinoma of the lung who presented to the hospital with intractable chest pain. 1. Intractable chest pain. Unclear in etiology, possibly related to his cancer. Dr. Bethea is currently working the patient up for possible chest wall metastasis. Dr. Bethea states that he may biopsy this area and patient may need palliative radiation. Patient is on morphine COAT TAILOR pump as well as Toradol. 2. Atrial fibrillation. Continue Lopressor. Hold Eliquis at this time due to possible biopsy. 3. Hypertension. Continue lisinopril and Lopressor. 4. Constipation. Colace twice daily. As needed milk of magnesia and to collect suppository. 5. Diabetes mellitus type 2. Sliding scale and consistent carbohydrate diet. DVT Prophylaxis: Teds and sequentials Disposition: Pending pain control. VS,Fishbone, I+O VS, Fishbone, I+O Laboratory Tests 02/17/21 17:22 02/18/21 05:26 Vital Signs Date Time Temp Pulse Resp B/P (MAP) Pulse Ox O2 Delivery O2 Flow Rate FiO2 02/18/21 12:00 97.9 80 18 118/60 (79) 97 Nasal Cannula 2.0 I&O- Last 24 Hours up to 6 AM 02/18/21 05:59 Intake Total 630 ml Output Total 100 ml Balance 530 ml ORLANDO JASMINE DO Feb 18, 2021 12:37
[2021-02-18] MEDS: NS 1,000 ML IV SCH (20:10)
[2021-02-19] VITALS: BP 113/62
[2021-02-19] MEDS: KCL 20MEQ IN D5/NS 1000ML 1,000 ML IV SCH (00:50)
[2021-02-19] MEDS: LEVALBUTEROL 1.25 MG/0.5 ML CONCENTRATE NEB NEB SCH ×4 (00:58→22:25)
[2021-02-19 04:00] VITALS: BP 108/64
[2021-02-19] MEDS: KETOROLAC 30 MG/ML 1ML VIAL IV SCH ×4 (04:06→20:09)
[2021-02-19 05:13] LABS: BASO % 0.1 % (0.0-1.0); EOS # 0.2 10^3/uL (0.0-0.5); EOS % 1.8 % (0.0-3.0); HEMOGLOBIN 9.5 g/dl (13.5-17.5); MEAN CORPUSCULAR HEMOGLOBIN 27.5 pg (27.0-33.0); MEAN CORPUSCULAR HGB CONC 30.6 g/dl (32.0-36.5); MEAN CORPUSCULAR VOLUME 89.9 fl (80.0-96.0); MONO # 1.1 10^3/uL (0.0-0.8); MONO % 11.5 % (2.0-8.0); NEUTROPHILS # 7.4 10^3/uL (1.5-8.5); NEUTROPHILS % 76.1 % (36.0-66.0); PLATELET COUNT, AUTOMATED 303 10^3/uL (150-450); RED BLOOD COUNT 3.45 10^6/uL (4.30-6.10); WHITE BLOOD COUNT 9.7 10^3/uL (4.0-10.0)
[2021-02-19 05:39] LABS: BLOOD UREA NITROGEN 15 MG/DL (7-18); CARBON DIOXIDE LEVEL 29 MEQ/L (21-32); CHLORIDE LEVEL 104 MEQ/L (98-107); CREATININE FOR GFR 0.76 MG/DL (0.70-1.30); GLOMERULAR FILTRATION RATE > 60.0 (>49); GLUCOSE, FASTING 115 MG/DL (70-100); POTASSIUM SERUM 5.4 MEQ/L (3.5-5.1); SODIUM LEVEL 137 MEQ/L (136-145)
[2021-02-19] MEDS: NS 1,000 ML IV SCH ×2 (05:45→16:28)
[2021-02-19] MEDS ORDERED: D5W/0.45% SODIUM CHLORIDE 1,000 ML IV SCH (06:15)
[2021-02-19] MEDS: TIOTROPIUM INHALER/CAPSULE (SPIRIVA) INH SCH (07:18)
[2021-02-19] MEDS: SYMBICORT 160/4.5MCG INHALER 6GM INH SCH ×2 (07:18→22:25)
[2021-02-19 08:00] VITALS: BP 128/62
--- NOTE | 2021-02-19 08:02 | REP ---
INDICATION: pleural effusion. COMPARISON: 02/18/2021 TECHNIQUE: PA and lateral. FINDINGS: The mediastinum and cardiac silhouette are stable and normal. The lung blackmon demonstrate Ksenia of opacification involving the right hemithorax along with loss of the diaphragmatic silhouette and costophrenic angle similar to prior examination and likely representing chronic change along with small pleural reaction and right lower lobe inflammatory process. Right upper lobe opacity is unchanged. Underlying advanced emphysematous disease noted bilaterally. The skeletal structures are intact and normal. IMPRESSION: Predominately chronic pleuroparenchymal changes with right upper lobe opacity and right lower lobe mild reticulonodular infiltrative process including very small pleural effusion. Findings are essentially unchanged. <Electronically signed by Ashok Mills > 02/19/21 [id number]
[2021-02-19] MEDS: ASPIRIN 81MG ENTERIC TABLET PO SCH (08:17)
[2021-02-19] MEDS: HumaLOG INSULIN (NovoLOG) PER UNIT SC SCH ×4 (08:17→20:10)
[2021-02-19] MEDS: TAMSULOSIN 0.4 MG CAP PO SCH (08:18)
[2021-02-19] MEDS: MOM 30ML SUSPENSION UDC PO SCH (08:18)
[2021-02-19] MEDS: DOCUSATE SODIUM 100MG CAPSULE PO SCH ×2 (08:18→20:10)
[2021-02-19] MEDS: MULTIVITAMINS/MINERALS THERAP 1 TAB PO SCH (08:18)
[2021-02-19] MEDS: PANTOPRAZOLE 40MG TAB (PROTONIX) PO SCH (08:18)
[2021-02-19] MEDS: ATORVASTATIN 20 MG TAB PO SCH (08:18)
[2021-02-19] MEDS: FOLIC ACID 1 MG TAB PO SCH (08:18)
[2021-02-19] MEDS: METOPROLOL TART 25 MG TABLET PO SCH ×2 (08:19→20:09)
[2021-02-19] MEDS: ACETAMINOPHEN 500 MG TAB PO SCH ×3 (08:19→20:09)
--- NOTE | 2021-02-19 10:05 | IPNPDOC ---
Text Note Date of Service The patient was seen on 02/19/21. NOTE Subjective: Patient is a 65-year-old male with stage IV adenocarcinoma with ma lignant pleural effusion is brought in for persistent right chest pain. Patient states that the pain is getting mildly better especially with the BONUS CLERK pump. Patient is also doing well with Toradol. Dr. Bethea of thoracic surgery is working up the exact cause of the patient's pain and currently thinking that may be a malignant spread of cancer. Review of systems: General: Patient denies fevers HEENT: Patient denies headaches Cardiovascular: Patient reports improvement of his chest pain on the right side. Respiratory: Patient denies shortness of breath, cough GI: Patient denies abdominal pain, nausea, vomiting, diarrhea : Patient denies increased frequency or pain with urination Extremities: Patient denies swelling or pain in extremities Neurological: Patient denies numbness or tingling in legs Physical exam: Vitals: See below General: Alert and oriented male patient who sitting up in bedside chair and walked in the room. Patient had nasal cannula oxygen in place. Patient not appear to be in any acute distress. HEENT: Normocephalic, atraumatic, moist mucous membranes. Neck: No lymphadenopathy or thyromegaly Cardiac: Regular rate and rhythm, no murmurs, normal S1, normal S2 Pulm: Clear to auscultation bilaterally. No wheezes, rhonchi, rales Abd: Nondistended, nontender to palpation, normal bowel sounds Ext: No edema bilateral lower extremities Musculoskeletal: Patient does have tenderness where the incision from the Pleurx catheter is tracking back along the rib towards the spine to palpation. No obvious swelling or deformity Labs: See below Imaging: Chest x-ray performed on 02/19/2021 was reported to show predominantly chronic pleural-parenchymal changes with the right upper lobe opacity in right lower lobe mild reticulonodular infiltrate process including very small pleural effusions. Findings essentially unchanged. Assessment/plan: 65-year-old male with a history of stage IV adenocarcinoma of the lung presents to the hospital with intractable chest pain 1. Intractable chest pain. Unclear etiology however, this is most likely related to his cancer. Dr. Bethea of thoracic surgery is currently working up patient possible chest wall metastasis. I appreciate Dr. Bethea's help in treating this patient. Patient is currently on morphine BONUS CLERK pump as well as Toradol. Patient's kidney function is normal and we will continue to monitor this while the patient is on Toradol. 2. Atrial fibrillation. Continue Lopressor. Hold Eliquis at this time due to possible biopsy. 3. Hypertension. Continue lisinopril Lopressor. 4. Constipation. Colace twice daily and as needed milk of magnesia and Dulcolax suppository. 5. Type 2 diabetes mellitus. Sliding scale and consistent carbohydrate diet. DVT Prophylaxis: Teds and sequentials Disposition: Pending pain control. VS,Fishbone, I+O VS, Fishbone, I+O Laboratory Tests 02/19/21 04:36 Vital Signs Date Time Temp Pulse Resp B/P (MAP) Pulse Ox O2 Delivery O2 Flow Rate FiO2 02/19/21 08:19 77 128/62 02/19/21 08:00 98.0 16 98 Nasal Cannula 2.0 I&O- Last 24 Hours up to 6 AM 02/19/21 06:00 Intake Total 3300 ml Output Total 375 ml Balance 2925 ml ORLANDO JASMINE DO Feb 19, 2021 10:05
[2021-02-19] MEDS ORDERED: LIDOCAINE 1% MDV 20ML VIAL As Ordered ONE (11:36)
--- NOTE | 2021-02-19 12:33 | IPN ---
PROGRESS NOTE DATE: 02/19/2021 This is a is Mr. Ratliff's second hospital day. He pain is being better controlled both with Toradol and patient-controlled analgesia (PRINTING WORKER SUPERVISOR) pump. He is still quite tender to palpation. Chest CT yesterday with contrast showed a possible tumor mass in the 8th intercostal space between the 8th rib and the 9th rib. It could also still be granulation tissue at the prior catheter entrance. His vital signs show a maximum temperature of 98.0 with a heart rate that ranges between 77 and 90 in a sinus rhythm, respiratory rate of 16-18 without the use of accessory muscles, who is 98% saturated on 2 liters nasal cannula and whose blood pressure is ranging between 128/62 to 108/64. His intake and output for the past 24 hours have been recorded as 2760 in and 475 out for a positivity of 2285 mL. He weighs 77.5 kg today compared to 75 kg yesterday. His intravenous (IV) was not turned off when he was taking oral intake, and the day nurse had already picked up on that and discontinued his IV. PHYSICAL EXAMINATION: He has equal breath sounds on either side. I do not appreciate wheezes, rales, or rhonchi, and percussion note is full to the diaphragm. As noted above, he is still exquisitely tender along the prior PleurX catheter tract. Cardiac exam is without murmurs, clicks, gallops, or rubs. I cannot feel his point of maximal impulse (PMI). S1 and S2 are normal. Abdomen is soft and nontender. Bowel sounds are positive. There is no costovertebral angle (CVA) tenderness. No hepatomegaly. Extremities show no pretibial edema, no calf tenderness, no differential swelling of the upper extremities. Skin is warm, dry, and perfused without cyanosis or mottling, including that of the nailbeds and knees. Neck is supple. There is no jugular venous distention. No subcutaneous emphysema. Trachea is midline. Mouth shows the mucous membranes to be pink and moist. Lips and commissures without lesions. No thrush. Eyes show his pupils to be equal and reactive. Extraocular motion intact. Sclerae anicteric. Neurologic shows II-XII intact. Normal gross motor, gross sensation intact. Gait is not tested. Psychiatric shows him to be awake, alert, and oriented times three with appropriate mood and affect and conversational. His white count today is 9.7 with a hemoglobin and hematocrit of 9.5 and 31.0, respectively. Platelet count is 303. Differential shows 76% neutrophils, 10% lymphocytes, 11% monocytes. There are no immature forms or toxic granulations. His electrolytes are normal except for an elevated potassium of 5.4. That should be resolved with discontinuation of his IV. Glucose is 115 with a calcium of 9.0. His chest x-ray today again shows his lung fully expanded to the chest wall. There is volume loss on the right side secondary to his tumor and the pleural effusion. CT scan done yesterday shows a minimal pleural effusion just above the diaphragm. It is extraordinarily small and does not need draining. There is some type of a density in the 8th intercostal space with a catheter that had previously traversed. It does not look like an actual mass. On the other hand, he has a new subcutaneous mass adjacent to the 7th intercostal space subcutaneously. He also has numerous other small masses subcutaneously, as one goes up the chest wall on the CT scan. PLAN AND DISCUSSION: I have gone over the CT scan with the radiologist, and they are going to attempt to do a biopsy of the 8th intercostal space findings. If we can provide this is malignant, he would be a candidate for palliative radiation to relieve the pain. Short of that, it would just be medical management of his pain.
[2021-02-19] MEDS ORDERED: SODIUM CHLORIDE 0.9% INJ 10 ML SYR IV PRN (13:35)
[2021-02-19 16:00] VITALS: BP 144/69
[2021-02-19] MEDS: MORPHINE 1MG/ML IN 0.9% NACL 100ML IV BAG IV PRN (16:14)
--- NOTE | 2021-02-19 17:03 | REP ---
INDICATION: Right 8th ICS possible tumor between ribs. COMPARISON: None. TECHNIQUE: The procedure was performed under the direct supervision of Dr. Reed. The risks and benefits of the procedure were explained to the patient informed consent was obtained. A nodule in the right 8th rib intercostal space was localized using CT guidance. The skin was prepped and draped in a sterile fashion. 5 mL of 1% lidocaine was used as a local anesthetic. Using CT guidance a 19/20 gauge coaxial needle biopsy system was inserted and advanced into the nodule. Five core biopsy samples were obtained and sent to the lab for analysis. The patient tolerated the procedure well and there were no immediate complications. After the appropriate amount to monitor convalescence the patient was discharged from the department. Estimated blood loss: Less than 1 mL FINDINGS: None IMPRESSION: CT-guided right 8th rib intercostal space nodule biopsy. <Electronically signed by Benito Varela > 02/19/21 1610 <Electronically signed by Jhoan Reed > 02/19/21 1700
[2021-02-19 20:00] VITALS: BP 131/69
[2021-02-19] MEDS: LISINOPRIL *2.5 MG* TAB PO SCH (20:09)
[2021-02-20] VITALS: BP 132/76
[2021-02-20] MEDS: LEVALBUTEROL 1.25 MG/0.5 ML CONCENTRATE NEB NEB SCH ×4 (02:00→19:22)
[2021-02-20 04:00] VITALS: BP 120/56
[2021-02-20] MEDS ORDERED: CEPACOL LOZENGE PO PRN (04:20)
[2021-02-20] MEDS ORDERED: BENZONATATE 100 MG CAP PO ONE ×2 (04:20→22:35)
[2021-02-20] MEDS ORDERED: CEPACOL LOZENGE PO ONE ×2 (04:30→22:35)
[2021-02-20] MEDS: KETOROLAC 30 MG/ML 1ML VIAL IV SCH ×2 (04:53→08:48)
[2021-02-20 07:06] VITALS: BP 141/77
[2021-02-20] MEDS: TIOTROPIUM INHALER/CAPSULE (SPIRIVA) INH SCH (07:14)
[2021-02-20] MEDS: SYMBICORT 160/4.5MCG INHALER 6GM INH SCH ×2 (07:14→19:21)
[2021-02-20] MEDS: HumaLOG INSULIN (NovoLOG) PER UNIT SC SCH ×4 (07:30→20:09)
[2021-02-20] MEDS: MULTIVITAMINS/MINERALS THERAP 1 TAB PO SCH (08:46)
[2021-02-20] MEDS: FOLIC ACID 1 MG TAB PO SCH (08:46)
[2021-02-20] MEDS: ASPIRIN 81MG ENTERIC TABLET PO SCH (08:46)
[2021-02-20] MEDS: DOCUSATE SODIUM 100MG CAPSULE PO SCH ×2 (08:47→20:06)
[2021-02-20] MEDS: ATORVASTATIN 20 MG TAB PO SCH (08:47)
[2021-02-20] MEDS: METOPROLOL TART 25 MG TABLET PO SCH ×2 (08:47→20:07)
[2021-02-20] MEDS: TAMSULOSIN 0.4 MG CAP PO SCH (08:47)
[2021-02-20] MEDS: ACETAMINOPHEN 500 MG TAB PO SCH ×3 (08:48→20:08)
[2021-02-20] MEDS: PANTOPRAZOLE 40MG TAB (PROTONIX) PO SCH (08:49)
[2021-02-20] MEDS: MOM 30ML SUSPENSION UDC PO SCH (09:00)
[2021-02-20] MEDS: SODIUM CHLORIDE 0.9% INJ 10 ML SYR IV SCH (09:00)
[2021-02-20 10:19] LABS: BASO % 0.3 % (0.0-1.0); EOS # 0.2 10^3/uL (0.0-0.5); HEMOGLOBIN 9.7 g/dl (13.5-17.5); LYMPH # 0.9 10^3/uL (1.5-5.0); LYMPH % 9.4 % (24.0-44.0); MEAN CORPUSCULAR HEMOGLOBIN 27.5 pg (27.0-33.0); MEAN CORPUSCULAR HGB CONC 31.3 g/dl (32.0-36.5); MEAN CORPUSCULAR VOLUME 87.8 fl (80.0-96.0); MONO # 0.9 10^3/uL (0.0-0.8); MONO % 9.5 % (2.0-8.0); NEUTROPHILS # 7.1 10^3/uL (1.5-8.5); NEUTROPHILS % 78.5 % (36.0-66.0); PLATELET COUNT, AUTOMATED 374 10^3/uL (150-450); RED BLOOD COUNT 3.53 10^6/uL (4.30-6.10); WHITE BLOOD COUNT 9.1 10^3/uL (4.0-10.0)
--- NOTE | 2021-02-20 10:26 | REP ---
INDICATION: pleural effusion. COMPARISON: Portable chest, 02/19/2021. TECHNIQUE: Upright PA and lateral chest images were obtained. FINDINGS: Severe emphysema. Chronic pleural thickening on the right. Chronic interstitial lung disease in the right lung base. The heart size is normal. There is a right internal jugular chemotherapy port. Status post anterior interbody fusion C6-7. IMPRESSION: 1. Severe emphysema. 2. Chronic pleural thickening on the right. 3. Chronic interstitial disease right lung base. 4. Other findings as noted, not significantly changed. <Electronically signed by Anthony Talavera > 02/20/21 1022
[2021-02-20] MEDS ORDERED: MOM 30ML SUSPENSION UDC PO PRN (10:35)
--- NOTE | 2021-02-20 10:36 | IPNPDOC ---
Text Note Date of Service The patient was seen on 02/20/21. NOTE Subjective: Patient is a 65-year-old male with stage IV adenocarcinoma of the lung with malignant pleural effusion is brought in for persistent right chest pain. Patient states the pain is mildly better with his WRINGER AND SETTER pump. Patient is also doing well with Toradol. Dr. Bethea of thoracic surgery is working up the exact cause of the patient's pain is currently thinking maybe malignant spread of the cancer into the intercostal space. Patient states that he is otherwise feeling well. Review of systems: General: Patient denies fevers HEENT: Patient denies headaches Cardiovascular: Patient reports the chest pain on the right side as described above. Respiratory: Patient denies shortness of breath, cough GI: Patient denies abdominal pain, nausea, vomiting, diarrhea : Patient denies increased frequency or pain with urination Extremities: Patient denies swelling or pain in extremities Neurological: Patient denies numbness or tingling in legs Physical exam: Vitals: See below General: Alert and oriented male patient with nasal cannula oxygen in place. Patient was sitting up in bed when I walked in. Patient not appear to be in any acute distress. HEENT: Normocephalic, atraumatic, moist mucous membranes. Neck: No lymphadenopathy or thyromegaly Cardiac: Regular rate and rhythm, no murmurs, normal S1, normal S2 Pulm: Clear to auscultation bilaterally. No wheezes, rhonchi, rales Abd: Nondistended, nontender to palpation, normal bowel sounds Ext: No edema bilateral lower extremities Musculoskeletal. Patient does have tenderness with incision with Pleurx cath is tracking back along the rib towards the spine when palpated. Labs: See below Imaging: Chest x-ray performed on 02/20/2021 is reported to show severe emphysema. Chronic pleural thickening on the right. Chronic interstitial disease right lung base. Assessment/plan: 65-year-old male with history of stage IV adenocarcinoma the lung presents the hospital with intractable right-sided chest pain. 1. Intractable chest pain. Unclear etiology however, this may be related to spread of his cancer. Dr. Bethea thoracic surgery is currently working with the patient possible chest wall metastasis. Appreciate Dr. Bethea's help treating the patient. Patient is currently on morphine WRINGER AND SETTER pump as well as Toradol. Patient's kidney function is normal we will continue to monitor while the patient is on Toradol. 2. Atrial fibrillation. Continue Lopressor. Hold Eliquis at this time as patient had biopsy yesterday. 3. Hypertension. Continue lisinopril. 4. Constipation. Colace twice daily and as needed milk of magnesia and Dulcolax suppository. 5. Type 2 diabetes mellitus. Sliding scale and consistent carb diet. 6. Hyperkalemia. Patient's potassium was elevated yesterday 5.4. Patient continue to receive Toradol and a 2.5 mg lisinopril. Patient's potassium was 6.4 on check this morning. It was rechecked right after this and was 5.7. There were no EKG changes. Patient will be given a dose of Lasix and is Toradol has been put on hold and his lisinopril has been discontinued at this time. We will continue to monitor the patient closely. DVT Prophylaxis: Teds and sequentials Disposition: Pending pain control VS,Fishbone, I+O VS, Fishbone, I+O Laboratory Tests 02/20/21 09:45 Vital Signs Date Time Temp Pulse Resp B/P (MAP) Pulse Ox O2 Delivery O2 Flow Rate FiO2 02/20/21 08:47 82 141/77 02/20/21 07:06 98.2 18 95 Nasal Cannula 2.0 I&O- Last 24 Hours up to 6 AM 02/20/21 06:00 Intake Total 1840 ml Output Total 925 ml Balance 915 ml ORLANDO JASMINE DO Feb 20, 2021 10:36
[2021-02-20 10:47] LABS: BLOOD UREA NITROGEN 12 MG/DL (7-18); CALCIUM LEVEL 8.9 MG/DL (8.8-10.2); CARBON DIOXIDE LEVEL 28 MEQ/L (21-32); CHLORIDE LEVEL 104 MEQ/L (98-107); CREATININE FOR GFR 0.78 MG/DL (0.70-1.30); GLOMERULAR FILTRATION RATE > 60.0 (>49); GLUCOSE, FASTING 161 MG/DL (70-100); POTASSIUM SERUM 6.4 MEQ/L (3.5-5.1); SODIUM LEVEL 136 MEQ/L (136-145)
[2021-02-20] MEDS ORDERED: SOD POLYSTYRENE SULFONATE SUSP 15 GM/60 ML UD PO ONE (11:00)
[2021-02-20] MEDS ORDERED: FUROSEMIDE 40MG/4ML VIAL (J1940) IV ONE (11:05)
[2021-02-20 11:57] LABS: BLOOD UREA NITROGEN 13 MG/DL (7-18); CALCIUM LEVEL 8.7 MG/DL (8.8-10.2); CARBON DIOXIDE LEVEL 24 MEQ/L (21-32); CHLORIDE LEVEL 106 MEQ/L (98-107); CREATININE FOR GFR 0.72 MG/DL (0.70-1.30); GLOMERULAR FILTRATION RATE > 60.0 (>49); GLUCOSE, FASTING 123 MG/DL (70-100); POTASSIUM SERUM 5.7 MEQ/L (3.5-5.1); SODIUM LEVEL 136 MEQ/L (136-145)
[2021-02-20 12:00] VITALS: BP 128/64
[2021-02-20] MEDS: PERCOCET 5MG/325MG TAB PO PRN ×3 (13:18→23:56)
[2021-02-20 15:59] VITALS: BP 119/57
[2021-02-20 16:39] LABS: BLOOD UREA NITROGEN 15 MG/DL (7-18); CALCIUM LEVEL 8.9 MG/DL (8.8-10.2); CARBON DIOXIDE LEVEL 29 MEQ/L (21-32); CHLORIDE LEVEL 103 MEQ/L (98-107); CREATININE FOR GFR 0.97 MG/DL (0.70-1.30); GLOMERULAR FILTRATION RATE > 60.0 (>49); GLUCOSE, FASTING 155 MG/DL (70-100); POTASSIUM SERUM 5.4 MEQ/L (3.5-5.1); SODIUM LEVEL 136 MEQ/L (136-145)
--- NOTE | 2021-02-20 18:51 | ECGEPIP ---
[facility] Test Date: 2021-02-20 Pat Name: TOLU PINK Department: Room: [place] [address] Gender: Male Vp Data: SULEIMAN : 1955 Requested By: ORLANDO JASMINE Order Number: [id number] Reading MD: Chaitanya Charles Measurements Intervals Hunt Rate: 80 P: 70 [place]: 198 QRS: 46 QRSD: 90 T: 70 QT: 366 QTc: 422 Interpretive Statements Normal sinus rhythm Low QRS complex voltage in the limb leads No significant change when compared to prior tracing of 02/17/2021 Electronically Signed on 02-20-2021 18:50:51 EDT by Chaitanya Charles
[2021-02-20 20:00] VITALS: BP 116/61
[2021-02-21] VITALS: BP 135/69
[2021-02-21] MEDS: LEVALBUTEROL 1.25 MG/0.5 ML CONCENTRATE NEB NEB SCH ×4 (02:00→19:47)
[2021-02-21 04:00] VITALS: BP 166/79
[2021-02-21] MEDS: PERCOCET 5MG/325MG TAB PO PRN ×3 (04:44→14:53)
[2021-02-21 05:08] LABS: BASO % 0.3 % (0.0-1.0); EOS # 0.2 10^3/uL (0.0-0.5); EOS % 2.4 % (0.0-3.0); HEMATOCRIT 31.2 % (42.0-52.0); HEMOGLOBIN 9.8 g/dl (13.5-17.5); LYMPH # 1.1 10^3/uL (1.5-5.0); LYMPH % 12.6 % (24.0-44.0); MEAN CORPUSCULAR HEMOGLOBIN 27.5 pg (27.0-33.0); MEAN CORPUSCULAR HGB CONC 31.4 g/dl (32.0-36.5); MEAN CORPUSCULAR VOLUME 87.4 fl (80.0-96.0); MONO # 1.2 10^3/uL (0.0-0.8); MONO % 13.2 % (2.0-8.0); NEUTROPHILS # 6.4 10^3/uL (1.5-8.5); NEUTROPHILS % 71.2 % (36.0-66.0); PLATELET COUNT, AUTOMATED 420 10^3/uL (150-450); RED BLOOD COUNT 3.57 10^6/uL (4.30-6.10); WHITE BLOOD COUNT 8.9 10^3/uL (4.0-10.0)
[2021-02-21 05:28] LABS: BLOOD UREA NITROGEN 15 MG/DL (7-18); CALCIUM LEVEL 8.7 MG/DL (8.8-10.2); CARBON DIOXIDE LEVEL 28 MEQ/L (21-32); CHLORIDE LEVEL 104 MEQ/L (98-107); CREATININE FOR GFR 0.73 MG/DL (0.70-1.30); GLOMERULAR FILTRATION RATE > 60.0 (>49); GLUCOSE, FASTING 116 MG/DL (70-100); POTASSIUM SERUM 5.1 MEQ/L (3.5-5.1); SODIUM LEVEL 137 MEQ/L (136-145)
[2021-02-21 07:07] VITALS: BP 158/78
[2021-02-21] MEDS: SYMBICORT 160/4.5MCG INHALER 6GM INH SCH ×2 (07:09→19:47)
[2021-02-21] MEDS: TIOTROPIUM INHALER/CAPSULE (SPIRIVA) INH SCH (07:09)
[2021-02-21] MEDS: HumaLOG INSULIN (NovoLOG) PER UNIT SC SCH ×4 (07:30→20:10)
[2021-02-21] MEDS: MULTIVITAMINS/MINERALS THERAP 1 TAB PO SCH (07:59)
[2021-02-21] MEDS: DOCUSATE SODIUM 100MG CAPSULE PO SCH ×2 (07:59→20:04)
[2021-02-21] MEDS: ASPIRIN 81MG ENTERIC TABLET PO SCH (07:59)
[2021-02-21] MEDS: PANTOPRAZOLE 40MG TAB (PROTONIX) PO SCH (07:59)
[2021-02-21] MEDS: TAMSULOSIN 0.4 MG CAP PO SCH (07:59)
[2021-02-21] MEDS: FOLIC ACID 1 MG TAB PO SCH (08:00)
[2021-02-21] MEDS: KETOROLAC 30 MG/ML 1ML VIAL IV SCH ×3 (08:00→20:06)
[2021-02-21] MEDS: ACETAMINOPHEN 500 MG TAB PO SCH ×3 (08:00→20:05)
[2021-02-21] MEDS: METOPROLOL TART 25 MG TABLET PO SCH ×2 (08:00→20:05)
[2021-02-21] MEDS: ATORVASTATIN 20 MG TAB PO SCH (08:00)
[2021-02-21] MEDS: SODIUM CHLORIDE 0.9% INJ 10 ML SYR IV SCH (08:01)
--- NOTE | 2021-02-21 10:27 | REP ---
INDICATION: pleural effusion. COMPARISON: PA and lateral chest, 02/20/2021. TECHNIQUE: Upright PA and lateral images of the chest were obtained. FINDINGS: Emphysema. There is diffuse pleural thickening on the right with a basilar pleural effusion. There is basilar predominant interstitial lung disease on the right. The left lung is clear. The heart borders and mediastinum are normal. There is a chemotherapy port in the right internal jugular vein with the tip in the superior vena cava. Status post anterior interbody fusion, C6-7. The upper abdominal bowel gas pattern is normal. IMPRESSION: 1. 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 2. Other findings as noted, no significant change. <Electronically signed by Anthony Talavera > 02/21/21 1025
--- NOTE | 2021-02-21 11:29 | IPNPDOC ---
Text Note Date of Service The patient was seen on 02/21/21. NOTE Subjective: Patient is a 65-year-old male stage IV adenocarcinoma the lung with malignant pleural effusion was brought in for intractable right-sided chest pain. Patient states that the pain was worse overnight however, the report I received the nurse was that they asked him numerous times if he would like a second Percocet and the patient declined this. Patient has been consistently stating his pain is about a 7 out of 10 which it was when he was on the morphine [employer] pump as well as getting the Percocet. Patient's Toradol was held overnight due to hyperkalemia which was thought to be secondary to getting the NSAID with TARYN inhibitor. TARYN inhibitor has been stopped and patient is potassium level is normal today. Patient is doing otherwise well. Review of systems: General: Patient denies fevers HEENT: Patient denies headaches Cardiovascular: Patient reports the right-sided chest pain as above Respiratory: Patient denies shortness of breath, cough GI: Patient denies abdominal pain, nausea, vomiting, diarrhea : Patient denies increased frequency or pain with urination Extremities: Patient denies swelling or pain in extremities Neurological: Patient denies numbness or tingling in legs Physical exam: Vitals: See below General: Alert and oriented male patient who was sitting up in bed with nasal cannula oxygen in place when I walked in the room. Patient did not appear to be in any acute distress HEENT: Normocephalic, atraumatic, moist mucous membranes. Neck: No lymphadenopathy or thyromegaly Cardiac: Regular rate and rhythm, no murmurs, normal S1, normal S2 Pulm: Diminished breath sounds in the bilateral bases, clear in the upper lung blackmon. Abd: Nondistended, nontender to palpation, normal bowel sounds Ext: No edema bilateral lower extremities Musculoskeletal: Patient has tenderness where the incision from his Pleurx catheter is tracking back along the ribs towards the spine. Patient's biopsy site and incision appear clean and dry. 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 Other findings as noted, no significant change. Assessment/plan: 65-year-old male with a history of stage IV adenocarcinoma of the lung presents the hospital with intractable right-sided chest pain 1. Intractable chest pain. Unclear etiology however, this may be related to the spread of the cancer. Dr. Bethea of thoracic surgery is currently working with the patient for possible chest wall metastasis. I appreciate Dr. Bethea's help treating the patient. Patient is currently on Percocet 1 pill every 4 hours as needed for pain rated 5-7 and 2 Percocet every 4 hours as needed for pain rated 8-10. Patient is also on scheduled Toradol. We will continue to monitor the patient's kidney function while he is on Toradol. 2. Atrial fibrillation. Continue Lopressor. Eliquis on hold at this time as biopsy was yesterday. 4. Hypertension. Lisinopril has been discontinued while he is on Toradol. 4. Constipation. Colace twice daily and as needed milk of magnesia Dulcolax suppository. 5. Type 2 diabetes mellitus. Sliding scale and consistent carb diet. 6. Hyperkalemia, improved. Patient's hyperkalemia was associated with using Toradol and lisinopril in combination. Lisinopril has been held and will continue Toradol. Patient was given a dose of IV Lasix yesterday. DVT Prophylaxis: Teds and sequentials Disposition: Pending pain control, possible discharge tomorrow VS,Elier, I+O VS, Elier, I+O Laboratory Tests 02/20/21 16:04 02/21/21 04:50 02/21/21 04:51 Vital Signs Date Time Temp Pulse Resp B/P (MAP) Pulse Ox O2 Delivery O2 Flow Rate FiO2 02/21/21 10:40 18 02/21/21 08:00 2.0 02/21/21 08:00 74 158/78 02/21/21 07:07 98.2 95 Nasal Cannula I&O- Last 24 Hours up to 6 AM 02/21/21 06:00 Intake Total 810 ml Output Total 2500 ml Balance -1690 ml ORLANDO JASMINE DO Feb 21, 2021 11:29
[2021-02-21 11:32] VITALS: BP 148/74
[2021-02-21 15:41] VITALS: BP 143/72
[2021-02-21] MEDS ORDERED: CEPACOL LOZENGE PO PRN (16:35)
[2021-02-21] MEDS ORDERED: BENZONATATE 100 MG CAP PO PRN (16:35)
[2021-02-21 20:00] VITALS: BP 150/76
[2021-02-22] VITALS: BP 148/72
[2021-02-22] MEDS: LEVALBUTEROL 1.25 MG/0.5 ML CONCENTRATE NEB NEB SCH ×2 (02:00→07:05)
[2021-02-22 04:00] VITALS: BP 166/74
[2021-02-22] MEDS: PERCOCET 5MG/325MG TAB PO PRN ×2 (04:44→11:12)
[2021-02-22] MEDS: KETOROLAC 30 MG/ML 1ML VIAL IV SCH ×2 (04:44→08:37)
[2021-02-22] MEDS: SYMBICORT 160/4.5MCG INHALER 6GM INH SCH (07:05)
[2021-02-22] MEDS: TIOTROPIUM INHALER/CAPSULE (SPIRIVA) INH SCH (07:06)
[2021-02-22 08:00] VITALS: BP 172/52
[2021-02-22] MEDS: HumaLOG INSULIN (NovoLOG) PER UNIT SC SCH (08:36)
[2021-02-22 08:37] VITALS: BP 172/52
[2021-02-22] MEDS: ATORVASTATIN 20 MG TAB PO SCH (08:37)
[2021-02-22] MEDS: METOPROLOL TART 25 MG TABLET PO SCH (08:37)
[2021-02-22] MEDS: TAMSULOSIN 0.4 MG CAP PO SCH (08:37)
[2021-02-22] MEDS: ACETAMINOPHEN 500 MG TAB PO SCH (08:37)
[2021-02-22] MEDS: PANTOPRAZOLE 40MG TAB (PROTONIX) PO SCH (08:37)
[2021-02-22] MEDS: DOCUSATE SODIUM 100MG CAPSULE PO SCH (08:37)
[2021-02-22] MEDS: ASPIRIN 81MG ENTERIC TABLET PO SCH (08:37)
[2021-02-22 08:38] LABS: BASO % 0.3 % (0.0-1.0); EOS # 0.1 10^3/uL (0.0-0.5); EOS % 1.4 % (0.0-3.0); HEMATOCRIT 30.6 % (42.0-52.0); HEMOGLOBIN 9.7 g/dl (13.5-17.5); LYMPH % 10.7 % (24.0-44.0); MEAN CORPUSCULAR HEMOGLOBIN 27.6 pg (27.0-33.0); MEAN CORPUSCULAR HGB CONC 31.7 g/dl (32.0-36.5); MEAN CORPUSCULAR VOLUME 87.2 fl (80.0-96.0); MONO % 10.9 % (2.0-8.0); NEUTROPHILS # 7.2 10^3/uL (1.5-8.5); NEUTROPHILS % 76.2 % (36.0-66.0); PLATELET COUNT, AUTOMATED 423 10^3/uL (150-450); RED BLOOD COUNT 3.51 10^6/uL (4.30-6.10); WHITE BLOOD COUNT 9.5 10^3/uL (4.0-10.0)
[2021-02-22] MEDS: MULTIVITAMINS/MINERALS THERAP 1 TAB PO SCH (08:38)
[2021-02-22] MEDS: FOLIC ACID 1 MG TAB PO SCH (08:38)
[2021-02-22] MEDS: SODIUM CHLORIDE 0.9% INJ 10 ML SYR IV SCH (08:38)
--- NOTE | 2021-02-22 08:52 | REP ---
INDICATION: pleural effusion. COMPARISON: Portable chest, 02/21/2021. TECHNIQUE: Upright AP portable chest image was obtained. FINDINGS: Emphysema. There is diffuse pleural thickening on the right with a basilar pleural effusion. There is basilar predominant interstitial lung disease on the right. The left lung is clear. The heart borders and mediastinum are normal. There is a chemotherapy port in the right upper chest with the catheter in the right internal jugular vein with the tip in the area of the superior vena cava. Status post anterior interbody fusion C6-7. The upper abdominal bowel gas pattern is normal. IMPRESSION: 1. 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 2. Other findings as noted, not significantly changed. <Electronically signed by Anthony Talavera > 02/22/21 [id number]
[2021-02-22 09:03] LABS: BLOOD UREA NITROGEN 15 MG/DL (7-18); CALCIUM LEVEL 8.9 MG/DL (8.8-10.2); CARBON DIOXIDE LEVEL 27 MEQ/L (21-32); CHLORIDE LEVEL 105 MEQ/L (98-107); CREATININE FOR GFR 0.79 MG/DL (0.70-1.30); GLOMERULAR FILTRATION RATE > 60.0 (>49); GLUCOSE, FASTING 143 MG/DL (70-100); SODIUM LEVEL 137 MEQ/L (136-145)
[2021-02-22] MEDS ORDERED: KETO10TAB PO (10:28)
[2021-02-22] MEDS ORDERED: OXYC1TAB23 PO (10:28)
--- NOTE | 2021-02-22 10:46 | IPN ---
PROGRESS NOTE DATE: 02/22/2021 SUBJECTIVE: Mr. Ratliff today is complaining of intractable pain overnight. It seems as though his story has changed. I see he was only accepting one Percocet every 4 hours over the night even while he was offered two, unless he is in extraordinary pain today. His vital signs showed T-max of 98.2, his heart rate ranges from 81 and 70 and is in sinus rhythm, respiratory rate is 16 to 18 without the use of accessory muscles. He is 95 o 96% saturated on 2 liters nasal cannula. His blood pressure is ranging between 135/69 to 166/79 off his lisinopril. His intake and output for the past 24 hours has been recorded as 930 in and 2775 out for a negativity of 1800 mL. His weight today is 78 kg compared to 80.5 kg yesterday and 77 kg the day before. OBJECTIVE: On physical examination, he had some scattered rhonchi on the right side with normal fascicular sounds on the left side. Percussion is full to the diaphragm. Cardiac examination; Without murmurs, clicks, gallops or rubs. I cannot feel is PMI. S1, S2 are normal. Abdomen: Soft and nontender. Bowel sounds are positive. No hepatosplenomegaly. No costovertebral angle (CVA) tenderness. He is still exquisitely tender along the former PleurX tract. Extremities show no pretibial edema. No calf tenderness. No differential swelling of the upper extremities. Skin is warm, dry and perfuse without cyanosis or mottling including nailbeds and knees. Neck is supple. There is no jugular venous distention (JVD). No subcutaneous emphysema. Trachea is midline. Mouth shows his mucous membranes to be pink and moist. Lips and commissures with lesions or thrush. Eyes show pupils equal and reactive. Extraocular motions are intact. Sclerae nonicteric. Neuro: CN II-XII intact with gross motor intact. Gait is not tested. Psychiatric: Awake and alert and oriented times three with appropriate mood and affect and conversational. LABORATORY DATA: His white count today is 8.9 with hemoglobin and hematocrit of 9.8 and 31.2 all unchanged. Platelet count is 420 and stable. Differentials are 71% neutrophils, 12% monocytes, 12% lymphocytes. There are no immature forms or toxic granulations. Electrolytes today are normal with a potassium of 5.1. BUN and creatinine are 15 and 0.73 with a glucose of 116 and a calcium of 0.7. His chest x-ray today shows his lungs fully expanded to the chest wall. There is some volume loss on the right side. The left costophrenic angle is sharp. The right is blunted, but no more so than it has been in the last few days. He has a known sliver of pleural effusion at the costophrenic angle on the CT scan. IMPRESSION: 1. Stage IV adenocarcinoma, right lung. 2. 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 3. Hyperkalemia resolving. 4. Atrial fibrillation. 5. Chronic obstructive pulmonary disease (COPD). 6. Hypertension. 7. Status post deep venous thrombosis and pulmonary embolism in the past. 8. Diabetes. 9. Severe bullous disease. PLAN/DISCUSSION: His Toradol has now been restarted. He does feel better after Toradol injection. Our plan was to see if we can maintain him on Percocet and Toradol. It is imperative that he be discharged Monday morning in time for his chemotherapy. I will present him to the tumor conference on Monday for discussion of intractable pain.
--- NOTE | 2021-02-22 10:58 | IPN ---
PROGRESS NOTE DATE: 02/22/2021 SUBJECTIVE: Mr. Ratliff is still complaining of pain but it is not as intense as it has been. We have agreed that we will discharge him today on Percocet and Toradol p.o. I can only give him five days worth of Toradol. His vital signs shows a T-max of 98.5 with a heart rate that ranges between 82 and 86 and sinus rhythm, respiratory rate is 16 to 22 without the use of accessory muscles who is 96 to 98% saturated on 2 liters nasal cannula and his blood pressure is ranging between 172/52 to 148/72. His intake and output over the past 24 hours has been recorded as 970 in and 1300 out for a negativity of 340 ml. Weight is pending today. OBJECTIVE: His lungs show equal breath sounds on either side. I hear no wheezes, rhonchi or rales today. Percussion note is full to the diaphragm. He is still somewhat tender along the prior PleurX catheter tract. Cardiac examination; Without murmurs, clicks, gallops or rubs. I cannot feel his PMI. S1, S2 are normal. Abdomen: Soft and nontender. Bowel sounds are positive. No hepatomegaly. No CVA tenderness. Extremities show no pretibial edema. No calf tenderness. No differential swelling of the upper extremities. Skin is warm, dry and perfused without cyanosis or mottling including that of nailbeds and knees. Neck is supple. There is no jugular venous distention. No subcutaneous emphysema. Trachea is midline. Mouth shows his mucous membranes to be pink and moist. Lips and commissures without lesions or thrush. Eyes show pupils equal and reactive. Extraocular motions are intact. Sclerae nonicteric. Neuro: Cranial nerves II-XII intact. Normal gross motor, gross sensation intact. Gait is not tested. Psychiatric: Awake and alert and oriented times three with appropriate mood and affect and conversational. LABORATORY DATA: His white count today is 9.5 with a hemoglobin and hematocrit of 9.7 and 30.6, essentially unchanged over the last few days. His platelet count is 423,000 and stable. Differential shows 76% neutrophils, 10% lymphocytes and 10% monocytes. There are no immature forms or toxic granulations. His electrolytes are normal today with a potassium of 5.0. BUN and creatinine are 15 and 0.79 with a glucose of 143 and a calcium of 8.9. Chest x-ray is unchanged from yesterday showing his lung is fully expanded to chest wall with some blunting and haziness of the right costophrenic angle and with volume loss of the right lung. IMPRESSION: 1. Adenocarcinoma of lung with a malignant pleural effusion with the original tumor in the right upper lobe. 2. Atrial fibrillation. 3. COPD. 4. Hypertension. 5. Status post deep vein thrombosis and pulmonary embolism in the past. 6. Intractable pain, improved. 7. Possible metastatic intercostal implant, pathology pending. 8. Diabetes. 9. Severe bullous disease. PLAN/DISCUSSION: As noted above, will plan for discharge today. The Hospitalist Service will dictate the discharge summary. I am sending him home on Percocet one to two tabs q. 4 to 6 hours p.r.n. pain as well as Toradol 10 mg q. 6 hours p.r.n. pain. He will be followed by myself in one week with a chest x-ray. He is to see Oncology tomorrow for his chemotherapy. I will present him to the Tumor Conference on Monday to discuss possible radiation therapy.
[2021-02-22 12:00] VITALS: BP 140/74
--- NOTE | 2021-02-22 12:54 | CR ---
CONSULTATION DATE: 02/20/2021 SUBJECTIVE: Mr. Ratliff is currently on a DISPATCHER TOW TRUCK with Toradol. His pain is better, although he is still complaining of significant pain. He received 8 mm of morphine in the past 24 hours. OBJECTIVE: His vital signs show a T-max of 98.4, the heart ranges between 70 and 85 and is sinus rhythm, respiratory rate of 16 to 20 without accessory muscle use, he is 90 to 97% saturated on 2 liters nasal canula. His blood pressure is ranging between 141/77 and 116/71. His intake and output for the past 24 hours has been recorded as 2680 in and only 250 out for a positivity of 2400 mL. I am not sure if the urine output is actually correct being recorded as only 250 mL. He weighs 80.5 kg today compared to 77.5 kg yesterday. PHYSICAL EXAMINATION: On physical examination, his lungs show equal breath sounds on either side. He has some scattered rhonchi on the right which cleared with coughing. Percussion is full to the diaphragm. Cardiac examination without murmurs, clicks, gallops or rubs. I cannot feel his PMI. S1, S2 are normal. Abdomen: Soft, nontender. Bowel sounds positive. No hepatosplenomegaly. No costovertebral angle (CVA) tenderness. Extremities show no pretibial edema. No calf tenderness. No differential swelling of upper extremities. Skin is warm, dry and perfuse without cyanosis or mottling including nailbeds and knees. Neck is supple. There is no jugular venous distention. No subcutaneous emphysema. Trachea is midline. Mouth shows mucous membranes pink and moist. Lips and commissures without lesions or thrush. Eyes show pupils equal and reactive. Extraocular motions are intact. Sclerae nonicteric. Neuro: CN II-XII intact with gross motor intact. Gait is not tested. Psychiatric: Alert, awake and oriented times 3 with appropriate mood and affect and conversational. The tract along the PleurX catheter, it was thought that his catheter site was still slightly tender to palpation. LABORATORY DATA: His white count today is 9.9, hemoglobin and hematocrit 9.7 and 31.0 and the platelet count is 374. Differential shows 78% neutrophils, 9% lymphocytes, 9% monocytes. There are no immature forms or toxic granulations. His electrolytes came back as a sodium of 6.4 this morning. The remainder of his electrolytes are normal. BUN and creatinine are 0.78. Glucose is 161 with a calcium of 8.9. I am not sure if the specimen was hemolyzed as it was 5.4 yesterday. I will stop his lisinopril as well as giving him a dose of Lasix because his input and output very clear is being imbalance. I also stopped the DISPATCHER TOW TRUCK pump and put him on oral Percocet supplemented with scheduled Toradol. Repeat potassium has come back 5.7. His chest x-ray shows his lungs fully expanded to the chest wall. There is volume loss on the right side. IMPRESSION: 1. Metastatic adenocarcinoma with negative pleural effusion. Visual tumors in the right upper lobe. 2. Atrial fibrillation. 3. Chronic obstructive pulmonary disease (COPD). 4. Hypertension. 5. Status post deep venous thrombosis with pulmonary embolism in the past. 6. Intractable pain along the PleurX catheter. 7. Possible metastatic intercostal implant on the PleurX catheter tract. 8. Diabetes. 9. Sever bullous disease. 10.Hyperkalemia. PLAN/DISCUSSION: As noted above, will discontinue his lisinopril and give him 40 mg of Lasix. Will again repeat his potassium level this afternoon. I will discontinue the DISPATCHER TOW TRUCK. Will see if we can send him home functional just with oral narcotic analgesia. I will await the biopsy results of the intercostal lesion.
--- NOTE | 2021-02-22 15:17 | DS.PDOC ---
Discharge Summary General Date of Admission Feb 17, 2021 at 19:35 Date of Discharge 02/22/2021 Primary Care Physician: Arelis Nelson Attending Physician: ORLANDO JASMINE DO Specialist/Consultants Involve: LIZETT KNAPP MD Discharge Summary PROCEDURES PERFORMED DURING STAY: None. ADMITTING DIAGNOSES: 1. Intractable chest pain. 2. Atrial fibrillation 3. Hypertension 4. Constipation 5. Diabetes mellitus type 2 DISCHARGE DIAGNOSES: 1. Intractable chest pain, improved. 2. Atrial fibrillation 3. Hypertension 4. Constipation 5. Type 2 diabetes mellitus COMPLICATIONS/CHIEF COMPLAINT: Metastatic Lung Cancer (Mets From Lung To Oth Site. 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 Over the past month, patient has been having right-sided chest pain which runs along with a Pleurx catheter. The past 2 weeks he has not slept very well. The chest pain is sharp rating about an 8 out of 10 to 10 out of 10 at its worst. Breathing makes the pain worse and certain position makes the pain better. Patient is feeling short of breath due to this. Otherwise patient reports a dry cough. Recently on February 10, patient had a Pleurx catheter removed. Despite removal, he continues to have pain within this distribution. Patient came to the ED for evaluation. CT of the chest without contrast does not demonstrate any acute process. Dr. Bethea recommends admission for pain control with EEG TECHNICIAN. Otherwise, when the admitting provider saw the patient, he complained of lower abdominal pain secondary to constipation which is not new. Also reports having difficulty urinating. Patient will be admitted for intractable chest pain. HOSPITAL COURSE: Patient did well with EEG TECHNICIAN pump and IV Toradol. Patient's creatinine was monitored and was always within normal range. Patient was continued on his TARYN inhibitor and his potassium slowly increased throughout his hospitalization to the point where he had to receive a dose of IV Lasix. Toradol was held for 24 hours and lisinopril was discontinued and the patient potassium came back in the normal range. Toradol was restarted. Patient was started on Percocet after the EEG TECHNICIAN pump was discontinued and the patient's pain was controlled but not gone at this point. Dr. Bethea of thoracic surgery was consulted and continue to work with the patient to find the cause of the pain. Dr. Bethea believes that there was a nodule running in the tract with a Pleurx catheter was that may be malignancy extending into the intercostal space. Patient had a biopsy of this area and the results are pending at this time. Patient's pain was mildly better than when he was initially admitted into the hospital and the patient was deemed ready for discharge. Dr. Bethea placed discharge orders for the patient after mutual discussion about the patient on 02/22/2021. I did read the medicine reconciliation and noticed that the patient had naproxen listed as a medication. I called the patient as he had been discha rged in the hospital by the time I noticed this to instruct him not to take naproxen while he was on Toradol. Patient expressed understanding after this conversation not to take naproxen and the patient was discharged home on 02/22/2021. DISCHARGE MEDICATIONS: Please see below. ALLERGIES: Please see below. PHYSICAL EXAMINATION ON DISCHARGE: VITAL SIGNS: Please see below. General: Alert and oriented male patient who was sitting up in bed with nasal cannula oxygen in place when I walked in the room. Patient not appear to be in any acute distress. HEENT: Normocephalic, atraumatic, moist mucous membranes. Neck: No lymphadenopathy or thyromegaly Cardiac: Regular rate and rhythm, no murmurs, normal S1, normal S2 Pulm: Fine crackles in the right lower lobe with other lung blackmon clear to ausc ultation Abd: Nondistended, nontender to palpation, normal bowel sounds Ext: No edema bilateral lower extremities LABORATORY DATA: Please see below. IMAGING: CT of the chest without contrast on 02/17/2021 was reported to show small right pleural effusion with organized appearing margins, measuring up to 1 cm in thickness, perhaps minimally improved in size after removal of pigtail catheter. No evidence of destructive or blastic rib lesion. Stable bilateral lung opacities which could be inflammatory or neoplastic, with underlying advanced centrilobular emphysema. No new or enlarging lung lesion. Chest x-ray performed on 02/2021 is reported to show the right Pleurx catheter is been removed. Slight blunting of the right lateral pleural angle and right pleural thickening. Increased interstitial markings right base unchanged. CT of the chest with contrast performed on 02/18/2021 was reported to show bilateral pleural-parenchymal changes (right greater than left) essentially unchanged. No obvious intercostal tumor implant identified. Underlying advanced COPD/emphysematous changes and scattered scarring are also again identified and unchanged. Chest x-ray performed on 02/19/2021 was reported to show predominantly chronic pleural-parenchymal changes with the right upper lobe opacity in right lower lobe mild reticulonodular infiltrate process including very small pleural effusions. Findings essentially unchanged. Chest x-ray performed on 02/20/2021 is reported to show severe emphysema. Chronic pleural thickening on the right. Chronic interstitial disease right lung base. 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 Other findings as noted, no significant change. 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 Other findings as noted, not significantly changed. PROGNOSIS: Fair ACTIVITY: As tolerated. DIET: Consistent carbohydrate DISCHARGE PLAN: Discharge home DISPOSITION: Home, Self-Care. DISCHARGE INSTRUCTIONS: 1. Follow-up with your primary care provider within 3 to 5 days discharge. 2. Follow-up with Dr. Bethea in the office as instructed 3. Continue take Toradol and pain medications as prescribed, do not take naproxen while taking Toradol 4. Follow-up with oncology for continued chemotherapy 5. Return to the emergency department if symptoms worsen ITEMS TO FOLLOWUP ON ON OUTPATIENT: 1. Monitoring creatinine while on Toradol outpatient. DISCHARGE CONDITION: Stable. TIME SPENT ON DISCHARGE: 25 minutes. Vital Signs/I&Os Vital Signs Date Time Temp Pulse Resp B/P (MAP) Pulse Ox O2 Delivery O2 Flow Rate FiO2 02/22/21 12:00 98.0 74 20 140/74 (96) 96 Nasal Cannula 2.0 I&O- Last 24 Hours up to 6 AM 02/22/21 06:00 Intake Total 1440 ml Output Total 1550 ml Balance -110 ml Laboratory Data Labs 24H Laboratory Tests 2 02/21/21 16:34: Bedside Glucose (Misc Panel) 176H 02/22/21 08:05: Bedside Glucose (Misc Panel) 132H 02/22/21 08:25: Immature Granulocyte % (Auto) 0.5, Neutrophils (%) (Auto) 76.2H, Lymphocytes (%) (Auto) 10.7L, Monocytes (%) (Auto) 10.9H, Eosinophils (%) (Auto) 1.4, Basophils (%) (Auto) 0.3, Neutrophils # (Auto) 7.2, Lymphocytes # (Auto) 1.0L, Monocytes # (Auto) 1.0H, Eosinophils # (Auto) 0.1, Basophils # (Auto) 0.0, Nucleated Red Blood Cells % (auto) 0.0, Anion Gap 5L, Glomerular Filtration Rate > 60.0, Calcium Level 8.9 CBC/BMP Laboratory Tests 02/22/21 08:25 FSBS Laboratory Tests Test 02/21/21 16:34 02/22/21 08:05 Range/Units Bedside Glucose (Misc Panel) 176 132 80-115 MG/DL Discharge Medications Scheduled Apixaban (Eliquis) 5 Mg Tablet, 5 MG PO BID, (Reported) Aspirin (Aspirin EC) 81 Mg Tablet.dr, 81 MG PO DAILY, (Reported) Atorvastatin Calcium (Atorvastatin Calcium) 20 Mg Tablet, 20 MG PO DAILY, (Reported) Budesonide/Formoterol (Symbicort 160-4.5 Mcg Inhaler) 6 Gm Hfa.aer.ad, 2 PUFF INH BID, (Reported) Cyanocobalamin (Vitamin B-12) (B-12) 1,000 Mcg Tablet, 1,000 MCG PO BID, (Reported) Dexamethasone (Decadron) 4 Mg Tablet, 4 MG PO BID day before chemotherapy day of chemotherapy day after chemotherapy for six cycles Docusate Sodium (Docusate Sodium) 100 Mg Capsule, 100 MG PO BID, (Reported) Fenofibrate (Fenofibrate) 160 Mg Tablet, 160 MG PO DAILY, (Reported) Folic Acid (Folic Acid) 1 Mg Tablet, 1 TAB PO DAILY Ipratropium/Albuterol Sulfate (Iprat-Albut 0.5-3(2.5) mg/3 ml) 3 Ml Ampul.neb, 3 ML INH BID, (Reported) Magnesium Oxide (Magnesium Oxide) 250 Mg Tablet, 250 MG PO DAILY Metformin HCl (Metformin HCl) 500 Mg Tablet, 500 MG PO BID, (Reported) Metoprolol Tartrate (Metoprolol Tartrate) 25 Mg Tablet, 25 MG PO BID, (Reported) Multivitamins (Thera M Plus Tablet) 1 Each Tablet, 1 TAB PO DAILY, (Reported) Naproxen Sodium (Aleve) 220 Mg Tablet, 440 MG PO BID, (Reported) Pantoprazole Sodium (Pantoprazole Sodium) 40 Mg Tablet.dr, 40 MG PO DAILY, (Reported) Tiotropium [place] (Spiriva) 18 Mcg Cap.w.dev, 1 INHALATION INH DAILY, (Reported) Scheduled PRN Albuterol Sulfate (Proair Hfa) 8.5 Gm Hfa.aer.ad, 2 PUFF INH Q6H PRN for SHORTNESS OF BREATH, (Reported) Docusate Sodium (Docusate Sodium) 100 Mg Capsule, 100 MG PO DAILY PRN for CONSTIPATION, (Reported) NEEDED FOR ADDITIONAL BOWEL CARE Hydrocodone/Acetaminophen (Hydrocodone-Acetamin 10-325 mg) 1 Each Tablet, 1 TAB PO TID PRN for MODERATE/SEVERE PAIN (PS 5-10), (Reported) Ipratropium/Albuterol Sulfate (Iprat-Albut 0.5-3(2.5) mg/3 ml) 3 Ml Ampul.neb, 3 ML INH BID PRN for SHORTNESS OF BREATH, (Reported) Ketorolac Tromethamine (Ketorolac Tromethamine) 10 Mg Tablet, 10 MG PO Q6HP PRN for pain Olanzapine (Olanzapine) 10 Mg Tablet, 10 MG PO DAILY PRN for SEVERE NAUSEA Ondansetron HCl (Ondansetron HCl) 8 Mg Tablet, 8 MG PO Q6H PRN for NAUSEA OR VOMITING Oxycodone HCl/Acetaminophen (Oxycodone-Acetaminophen 5-325) 1 Each Tablet, 1 TAB PO Q4-6HP PRN for PAIN LEVEL 4-7 Allergies Coded Allergies: shellfish derived (Verified Allergy, Severe, hives, ANAPHYLAXIS, 02/10/21) ORLANDO JASMINE DO Feb 22, 2021 15:17
== END 2021-02-22 12:45 | disposition home or self-care (01) | DRG 694 ==
LOC: M ED 16:18 → M ED INP 19:35 → ENRESERVTM 23:31 → ENRESERVDT 23:31 → M PCU 23:38
PROVIDERS: ADMIT Thoracic Surgery (Cardiothoracic Vascular Surgery); ATTEND Family Medicine
PROC: 0WB83ZX Excision of Chest Wall, Percutaneous Approach, Diagnostic (ICD-10-PCS; principal; 2021-02-19 11:46)
DX: C79.89 Secondary malignant neoplasm of other specified sites (principal); J91.0 Malignant pleural effusion; I48.91 Unspecified atrial fibrillation; E87.5 Hyperkalemia; C34.11 Malignant neoplasm of upper lobe, right bronchus or lung; J44.9 Chronic obstructive pulmonary disease, unspecified; I10 Essential (primary) hypertension; E11.9 Type 2 diabetes mellitus without complications; K59.00 Constipation, unspecified; G89.3 Neoplasm related pain (acute) (chronic); Z79.82 Long term (current) use of aspirin; Z79.899 Other long term (current) drug therapy; Z91.013 Allergy to seafood; Z86.718 Personal history of other venous thrombosis and embolism; Z86.711 Personal history of pulmonary embolism; Z98.41 Cataract extraction status, right eye; Z98.42 Cataract extraction status, left eye

== ENCOUNTER 2021-02-25 11:36 | Inpatient (IN) | payer OTHER ==
[~2021-02-25] VITALS: Ht 180.3 cm; Wt 77.2 kg
[2021-02-25] VITALS (8 sets, daily range): BP systolic 132–158; BP diastolic 62–91
[~2021-02-25 11:36] MED LIST changes: +B-12100021 PO; +DOCU100C16 PO; +FENO160T10 PO; +HYDR-4517 PO; +IPRA0.00 INH; +KETO10TAB PO; +METO25TA4 PO; +OXYC1TAB23 PO; +SPIR1CAP INH
--- NOTE | 2021-02-25 12:19 | REP ---
INDICATION: DYSPNEA/COUGH. COMPARISON: 02/22/2021. TECHNIQUE: Single portable AP view of the chest was performed. FINDINGS: Pleural and parenchymal opacity in the right lung base is stable. There is a peripheral nodular opacity laterally in the left upper hemithorax unchanged. No new abnormalities are seen. The heart and mediastinum are unchanged. Right central venous catheter is unchanged. IMPRESSION: Stable exam. <Electronically signed by Jhoan Reed > 02/25/21 1212
[2021-02-25] MEDS ORDERED: ONDANSETRON 4MG/2ML VIAL IV ONE (12:40)
[2021-02-25] MEDS: MORPHINE 4 MG/ML 1ML VIAL/SYRINGE (J2270) IV PRN ×2 (12:58→15:01)
--- NOTE | 2021-02-25 14:44 | HPEPDOC ---
[facility] Medical History & Physical Date of Admission Feb 25, 2021 Date of Service: Feb 25, 2021 Attending Physician: LUIS ALBERTO RIOS MD History and Physical CHIEF COMPLAINT: Pain 2/2 to Prostate cancer metastasis HISTORY OF PRESENT ILLNESS: Patient presents to the [facility] ED with pain on the right side chest wall from pleurX tube insertion and removal. Patient says that the pain is worse on inspiration. Pain has been on going since the PleurX due to malignant effusion was placed and removed by Dr. Bethea. Patient is currently receiving Percocet, and keterolac that are not adequately controlling his pain. Pt states that his prostate cancer was diagnosed on 05/2020. Medical History 1. Stage IV metastatic Adenocarcinoma of the right upper lung with malignant pleural effusion. 2. Diabetes mellitus 3. COPD 4. Hx of Atrial fibrillation 5. Hypertension 6. History of DVT and PE Surgical History 1. Neck surgery 2. Left shoulder surgery 3. Left carpal tunnel surgery 4. Cataracts Family History SOCIAL HISTORY: Tobacco use: 17 yrs PAD smoking history ETOH: Currently denies drinking. 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 Illicit drug use: Smoked marijuana when he was younger. No other drug use histo ry FAMILY HISTORY: Father: History of CAD - passed at 88yrs old Mother: History of brain aneurysm - passed in her 90s ALLERGIES: Please see below. REVIEW OF SYSTEMS: CONSTITUTIONAL: Patient denies fever or chills. HEENT: Patient denies headaches. CARDIOVASCULAR: Patient denies chest pain. RESPIRATORY: Sharp pain with deep inhalation GASTROINTESTINAL: Pain with deep inhalation GENITOURINARY: Patient denies dysuria or residual volume. NEUROLOGICAL: Patient denies numbness and tingling. HOME MEDICATIONS: Please see below. PHYSICAL EXAMINATION: VITAL SIGNS: See below General: Pt was Supine when seen. Pt was in no acute distress. HEENT: NC, AT, EOMI, no scleral icterus, moist membranes. Neck: No enlargement of thyroid or lymph nodes. Heart: S1 and S2 present. No extra heart sounds or murmurs. Lungs: BL breath sounds are present. Slight crackles are present BL in the middle and lower lung lobes. Right anterior chest wall incision well scabbed, no erythema, no drainage. ABD: Bowel sounds present. No tenderness on superficial or deep palpation. Extremities: No edema seen on exam. +2/4 BL posterior tibial and pedal pulses. Neuro: No weakness or loss of sensation. Psych: Alert and oriented*4. LABORATORY DATA: See below. new IMAGING: Chest X-ray: "IMPRESSION: Stable exam." MICROBIOLOGY: Please see below. ASSESSMENT: Pt is a 65 y/o male with PMHx of Stage IV metastatic adenocarcinoma of the right upper lung with malignant pleural effusion, Diabetes mellitus, COPD, Hx atrial fibrillation, Hypertension, and History of DVT and PE. Pt is the ER for pain management 2/2 to treatment of pleural effusion with PleurX. PLAN: # Pain management 2/2 to PleurX insertion and removal. - Percocet PRN every 4 hours and AUTOMOBILE GLASS TECHNICIAN pump for pain management # Prostate cancer - Metastatic with spread to the lung. - Patient is currently receiving Chemotherapy and will receive radiation therapy today as part of his treatment course. # Diabetes Mellitus Type II - Hold home metformin - ISS for glucose control. Glucose checks before meals and before bedtime. Hypoglycemia protocol. # Hx of A-fib - Currently not on Eliquis per Dr. Bethea recommendation. - Continue aspirin. #COPD - Continue Albuterol, symbicort, and duonebs. # HTN - Continue Metorpolol. # GERD - Continue Pantoprazole. # DVT prophylaxis - Lovenox 40mg SC. Code status: Patient is full code. Disposition: Pending improvement of pain management. Stay at least 1 night. Vital Signs Vital Signs Date Time Temp Pulse Resp B/P (MAP) Pulse Ox O2 Delivery O2 Flow Rate FiO2 02/25/21 13:38 18 02/25/21 12:58 Room Air 02/25/21 11:37 97.0 79 157/74 (101) 94 Home Medications Scheduled Apixaban (Eliquis) 5 Mg Tablet, 5 MG PO BID ON HOLD PER Aspirin (Aspirin EC) 81 Mg Tablet.dr, 81 MG PO DAILY Atorvastatin Calcium (Atorvastatin Calcium) 20 Mg Tablet, 20 MG PO DAILY Budesonide/Formoterol (Symbicort 160-4.5 Mcg Inhaler) 6 Gm Hfa.aer.ad, 2 PUFF INH BID Cyanocobalamin (Vitamin B-12) (B-12) 1,000 Mcg Tablet, 1,000 MCG PO BID Dexamethasone (Decadron) 4 Mg Tablet, 4 MG PO BID day before chemotherapy day of chemotherapy day after chemotherapy for six cycles Docusate Sodium (Docusate Sodium) 100 Mg Capsule, 100 MG PO BID Fenofibrate (Fenofibrate) 160 Mg Tablet, 160 MG PO DAILY Folic Acid (Folic Acid) 1 Mg Tablet, 1 MG PO DAILY Ipratropium/Albuterol Sulfate (Iprat-Albut 0.5-3(2.5) mg/3 ml) 3 Ml Ampul.neb, 3 ML INH BID Magnesium Oxide (Magnesium Oxide) 250 Mg Tablet, 250 MG PO DAILY Metformin HCl (Metformin HCl) 500 Mg Tablet, 500 MG PO BID Metoprolol Tartrate (Metoprolol Tartrate) 25 Mg Tablet, 25 MG PO BID Multivitamins (Thera M Plus Tablet) 1 Each Tablet, 1 TAB PO DAILY Pantoprazole Sodium (Pantoprazole Sodium) 40 Mg Tablet.dr, 40 MG PO DAILY Tiotropium [place] (Spiriva) 18 Mcg Cap.w.dev, 1 INHALATION INH DAILY Scheduled PRN Albuterol Sulfate (Proair Hfa) 8.5 Gm Hfa.aer.ad, 2 PUFF INH Q6H PRN for SHORTNESS OF BREATH Ketorolac Tromethamine (Ketorolac Tromethamine) 10 Mg Tablet, 10 MG PO Q6HP PRN for pain Naproxen Sodium (Aleve) 220 Mg Tablet, 440 MG PO BID PRN for PAIN LEVEL 1-6 Olanzapine (Olanzapine) 10 Mg Tablet, 10 MG PO DAILY PRN for SEVERE NAUSEA Ondansetron HCl (Ondansetron HCl) 8 Mg Tablet, 8 MG PO Q6H PRN for NAUSEA OR VOMITING Oxycodone HCl/Acetaminophen (Oxycodone-Acetaminophen 5-325) 1 Each Tablet, 1 TAB PO Q6H PRN for PAIN LEVEL 4-7 Oxycodone/Acetaminophen (Oxycodone-Acetaminophen 5-325) 1 Each Tablet, 1-2 TAB PO Q4HP PRN for MODERATE PAIN (PS 5-7) Allergies Coded Allergies: shellfish derived (Verified Allergy, Severe, hives, ANAPHYLAXIS, 02/10/21) A-FIB/CHADSVASC A-FIB History Current/History of A-Fib/PAF?: Yes Current PO Anticoag Therapy: Yes Age/Risk Factor Scoring CHADSVASC: CHADSVASC Response (Comments) Value Age Risk Factor Age < 65 years old 0 Gender Risk Factor Male 0 Hx of CHF No 0 Hx of HTN Yes 1 Hx of Stroke/TIA/or VTE No 0 Hx of Diabetes Yes 1 Hx of Vascular Disease Yes 1 Total 3 Treatment Treatment ordered: Other Other anticoagulant ordered: Lovenox GME ATTESTATION GME ATTESTATION My faculty preceptor for this patient encounter was physically present during the encounter and was fully available. All aspects of the patient interview, examination, medical decision making process, and medical care plan development were reviewed and approved by the faculty preceptor. The faculty preceptor is aware and concurs with the plan as stated in the body of this note and will attest to such by his/her cosignature. ATTENDING NOTE I, Luis Alberto Rios MD, have independently examined this patient and performed my own physical exam, as well as reviewed the documentation and edited where necessary. I have discussed in detail with the resident / student the findings and plan of treatment as documented by the resident / student and edited their note. I agree with their findings and treatment plan and have edited their d ocumentation. ORIANA BRONSON OMS-3 Feb 25, 2021 14:44 Yadira Velasquez DO Feb 25, 2021 18:54 LUIS ALBERTO RIOS MD Mar 05, 2021 12:20
[2021-02-25 14:59] LABS: HEMATOCRIT 33.6 % (42.0-52.0); HEMOGLOBIN 10.8 g/dl (13.5-17.5); MEAN CORPUSCULAR HGB CONC 32.1 g/dl (32.0-36.5); PLATELET COUNT, AUTOMATED 531 10^3/uL (150-450); RED BLOOD COUNT 3.86 10^6/uL (4.30-6.10); WHITE BLOOD COUNT 10.3 10^3/uL (4.0-10.0)
[2021-02-25] MEDS ORDERED: ONDANSETRON 4MG/2ML VIAL IV PRN (15:00)
[2021-02-25] MEDS ORDERED: NALOXONE INJ 0.4MG/1ML VIAL (J2310 PER 1MG) IV PRN (15:00)
[2021-02-25] MEDS ORDERED: EPIDURAL/PCA KEYS XX PRN (15:00)
[2021-02-25] MEDS ORDERED: diphenhydrAMINE 50MG/ML VIAL (J1200) IV PRN (15:00)
[2021-02-25 15:34] LABS: ALBUMIN 2.8 GM/DL (3.2-5.2); ALT/SGPT 90 U/L (12-78); BILIRUBIN,TOTAL 0.3 MG/DL (0.2-1.0); BLOOD UREA NITROGEN 20 MG/DL (7-18); CALCIUM LEVEL 9.7 MG/DL (8.8-10.2); CARBON DIOXIDE LEVEL 27 MEQ/L (21-32); CHLORIDE LEVEL 101 MEQ/L (98-107); CREATININE FOR GFR 0.86 MG/DL (0.70-1.30); GLOMERULAR FILTRATION RATE > 60.0 (>49); GLUCOSE, FASTING 104 MG/DL (70-100); SODIUM LEVEL 135 MEQ/L (136-145); TOTAL PROTEIN 6.8 GM/DL (6.4-8.2)
[2021-02-25 15:34] LABS: RSV AMPLIFICATION NEGATIVE (NEGATIVE)
[2021-02-25] MEDS ORDERED: FOLI1TAB11 PO (16:29)
[2021-02-25] MEDS ORDERED: OXYC1TAB23 PO (16:29)
[2021-02-25] MEDS ORDERED: HOME MED LIST COMPLETE! XX SCH (16:30)
[2021-02-25] MEDS ORDERED: OLANZapine 10 MG TAB PO PRN (16:45)
[2021-02-25] MEDS ORDERED: ALBUTEROL 90 MCG/ACT 8GM HFA INHALER INH PRN (16:45)
[2021-02-25] MEDS ORDERED: DEXTROSE 50% 50 ML SYRINGE IV PRN (16:55)
[2021-02-25] MEDS ORDERED: GLUCAGON INJ 1MG VIAL SC PRN (16:55)
[2021-02-25] MEDS ORDERED: GLUCOSE 4GM CHEW TABLET PO PRN (16:55)
--- NOTE | 2021-02-25 17:28 | RADONC.CN ---
Radiation Oncology Hx/Consult Radiation Oncology Consult Date of Service: Feb 25, 2021 Pt Identifier Jamil Raltiff is a 65 year old male smoker with [id number] stage CHERYL NSCLC who presented in May 2020 with a large right-sided malignant pleural effusion. This effusion was drained originally on 06/11/20 and cytology revealed adenocarcinoma. Contemporaneous imaging revealed a right posterior upper lobe primary tumor. He had a chest tube placed initially which was converted to a pleurex catheter. He was started on carbo/alimta/bevacizumab for 6 cycles. Disease was stable on 11/02/20 CT chest. He was continued on maintenance alimta. Pleurex catheter was removed in January 2021 and shortly thereafter he developed right chest pain of insidious onset. This has progressed to a point of debilitation. His case was reviewed at tumor board on 02/24/21 and the consensus was this pain represents tumor seeding along the pleurex tract. He is seen today while admitted for uncontrolled pain for urgent RT to the right chest wall. Diagnosis/Treatment History Oncologic History As above Recent data: 02/25/21 CXR FINDINGS: Pleural and parenchymal opacity in the right lung base is stable. There is a peripheral nodular opacity laterally in the left upper hemithorax unchanged. No new abnormalities are seen. The heart and mediastinum are unchanged. Right central venous catheter is unchanged. IMPRESSION: Stable exam. 02/17/21 CT chest IMPRESSION: 1. Small right pleural effusion with organized appearing margins, measuring up to 1 cm in thickness, perhaps minimally improved in sized after removal of the pigtail catheter. 2. No evidence of a destructive or blastic rib lesion. 3. Stable bilateral lung opacities which could be inflammatory or neoplastic, with underlying advanced centrilobular emphysema. No new or enlarging lung lesion Interval History Jamil reports 8/10 intractable pain in the right chest wall. He describes a band of pain stretching along the right mid anterolateral chest. He notes increasing nodularity and induration of the skin along this tract as well as increased tenderness. He is on percocet without much relief. He has received morphine IV in the ED with some mild relief. He denies recent weight loss, increased SOB, although the pain limits deep breathing. He denies cough, and hemoptysis. Past Medical History: DVT/PE DMII COPD PAF HTN Past Surgical History: Left shoulder surgery Neck surgyer Left carpal tunnel release Cataracts Family History: No family cancer history Social History: 1.5 ppd smoker 50 pack year history Occasionaly drinks alcohol Allergies / Meds Allergies: Coded Allergies: shellfish derived (Verified Allergy, Severe, hives, ANAPHYLAXIS, 02/10/21) Home Meds Active Scripts Oxycodone HCl/Acetaminophen (Oxycodone-Acetaminophen 5-325) 1 Each Tablet, 1 TAB PO Q4-6HP PRN for PAIN LEVEL 4-7 MDD 6, #60 TAB Prov:Ousmane Bethea M.D. 02/22/21 Ketorolac Tromethamine (Ketorolac Tromethamine) 10 Mg Tablet, 10 MG PO Q6HP PRN for pain for 5 Days, #20 TAB Prov:Ousmane Bethea M.D. 02/22/21 Dexamethasone (Decadron) 4 Mg Tablet, 4 MG PO BID for 3 Days, #36 TAB day before chemotherapy day of chemotherapy day after chemotherapy for six cycles Prov:INÉS HARDING MD 01/12/21 Magnesium Oxide (Magnesium Oxide) 250 Mg Tablet, 250 MG PO DAILY for 30 Days, #30 TAB Prov:MARILIN HINDS MD 11/12/20 Folic Acid (Folic Acid) 1 Mg Tablet, 1 TAB PO DAILY for 90 Days, #30 TAB 5 Refills Prov:NIKI MATA MDFRCP 09/24/20 Ondansetron HCl (Ondansetron HCl) 8 Mg Tablet, 8 MG PO Q6H PRN for NAUSEA OR VOMITING, #30 TAB 3 Refills Prov:SATURNINO IRIZARRY MD 06/29/20 Olanzapine (Olanzapine) 10 Mg Tablet, 10 MG PO DAILY PRN for SEVERE NAUSEA for 3 Days, #3 TAB 5 Refills Prov:SATURNINO IRIZARRY MD 06/26/20 Reported Medications Cyanocobalamin (Vitamin B-12) (B-12) 1,000 Mcg Tablet, 1000 MCG PO BID, TAB 02/17/21 Docusate Sodium (Docusate Sodium) 100 Mg Capsule, 100 MG PO DAILY PRN for CONSTIPATION, CAP NEEDED FOR ADDITIONAL BOWEL CARE 02/17/21 Hydrocodone/Acetaminophen (Hydrocodone-Acetamin 10-325 mg) 1 Each Tablet, 1 TAB PO TID PRN for MODERATE/SEVERE PAIN (PS 5-10), TAB 02/17/21 Ipratropium/Albuterol Sulfate (Iprat-Albut 0.5-3(2.5) mg/3 ml) 3 Ml Ampul.neb, 3 ML INH BID PRN for SHORTNESS OF BREATH 02/17/21 Ipratropium/Albuterol Sulfate (Iprat-Albut 0.5-3(2.5) mg/3 ml) 3 Ml Ampul.neb, 3 ML INH BID 02/17/21 Metoprolol Tartrate (Metoprolol Tartrate) 25 Mg Tablet, 25 MG PO BID, TAB 02/17/21 Fenofibrate (Fenofibrate) 160 Mg Tablet, 160 MG PO DAILY, TAB 02/17/21 Tiotropium [place] (Spiriva) 18 Mcg Cap.w.dev, 1 INHALATION INH DAILY, CAP 02/17/21 Naproxen Sodium (Aleve) 220 Mg Tablet, 440 MG PO BID, TAB 07/03/20 Docusate Sodium (Docusate Sodium) 100 Mg Capsule, 100 MG PO BID, CAP 07/03/20 Pantoprazole Sodium (Pantoprazole Sodium) 40 Mg Tablet.dr, 40 MG PO DAILY, TAB 07/03/20 Apixaban (Eliquis) 5 Mg Tablet, 5 MG PO BID, TAB 07/03/20 Budesonide/Formoterol (Symbicort 160-4.5 Mcg Inhaler) 6 Gm Hfa.aer.ad, 2 PUFF INH BID, INHALER 06/08/20 Multivitamins (Thera M Plus Tablet) 1 Each Tablet, 1 TAB PO DAILY 06/08/20 Atorvastatin Calcium (Atorvastatin Calcium) 20 Mg Tablet, 20 MG PO DAILY 06/08/20 Albuterol Sulfate (Proair Hfa) 8.5 Gm Hfa.aer.ad, 2 PUFF INH Q6H PRN for SHORTNESS OF BREATH 06/08/20 Metformin HCl (Metformin HCl) 500 Mg Tablet, 500 MG PO BID 06/08/20 Aspirin (Aspirin EC) 81 Mg Tablet.dr, 81 MG PO DAILY 06/08/20 Discontinued Reported Medications Lisinopril (Lisinopril) 5 Mg Tablet, 2.5 MG PO QHS, TAB 02/17/21 Review of Systems Constitutional: Denies: Weakness Eyes: Denies: Pain HEENT: Denies: Head Aches Skin: Reports: Lesions; Denies: Rash Pulmonary: Reports: Dyspnea, Pleuritic Chest Pain; Denies: Cough Cardiovascular: Denies: Edema Gastrointestinal: Denies: Abdominal Pain Hematologic: Denies: Bruising Musculoskeletal: Reports: Midthoracic pain; Denies: Neck pain, Back pain Neurological: Denies: Weakness, Numbness Psych: Reports: Mood Normal Vital Signs Vital Signs Date Time Temp Pulse Resp B/P (MAP) Pulse Ox O2 Delivery O2 Flow Rate FiO2 02/25/21 15:01 18 92 02/25/21 14:06 81 02/25/21 12:58 Room Air 02/25/21 11:37 97.0 157/74 (101) General Exam: Alert, Cooperative, Mild Distress Eye Exam: PERRLA, EOMI ENT EXAM: Atraumatic Neck Exam: Supple; Negative: Lymphadenopathy Chest Exam: Clear to auscultation, Normal air movement, Other (Tenderness along pleurex tract, visible small nodularity of skin which is tender along right lateral chest. ); Negative: Wheezing Heart Exam: Rate Normal, Regular Rhythm Abdomen Exam: Soft Extremity Exam: Negative: Edema Skin Exam: Nl turgor and temperature Neuro Exam: Normal Speech, Cranial Nerves 3-12 NL Psych Exam: Mental status NL Diagnostic and Laboratory Diagnostic Review Radiologic images, relevant labs and pathology reports were personally reviewed and discussed with Gaudencio. Laboratory Tests 02/25/21 14:43 02/25/21 14:48 Laboratory Tests 02/25/21 14:43: Sodium Level 135L, Potassium Level 5.0, Chloride Level 101, Carbon Dioxide Level 27, Anion Gap 7L, Blood Urea Nitrogen 20H, Creatinine 0.86, Glomerular Filtration Rate > 60.0, Fasting Glucose 104H, Calcium Level 9.7, Total Bilirubin 0.3, Aspartate Amino Transf (AST/SGOT) 55H, Alanine Aminotransferase (ALT/SGPT) 90H, Alkaline Phosphatase 82, Total Protein 6.8, Albumin 2.8L, Albumin/Globulin Ratio 0.7 02/25/21 14:48: White Blood Count 10.3H, Red Blood Count 3.86L, Hemoglobin 10.8L, Hematocrit 33.6L, Mean Corpuscular Volume 87.0, Mean Corpuscular Hemoglobin 28.0, Mean Corpuscular Hemoglobin Concent 32.1, Red Cell Distribution Width 17.3H, Platelet Count 531H, Nucleated Red Blood Cells % (auto) 0.0, Coronavirus (COVID-19)(PCR) NEGATIVE, Influenza Type A (RT-PCR) NEGATIVE, Influenza Type B (RT-PCR) NEGATIVE, Respiratory Syncytial Virus (PCR) NEGATIVE Assessment and Plan Impression Mr. Ratliff is a 65 year old male smoker with [id number] stage CHERYL NSCLC who pres ented in May 2020 with a large right-sided malignant pleural effusion. This effusion was drained originally on 06/11/20 and cytology revealed adenocarcinoma. Contemporaneous imaging revealed a right posterior upper lobe primary tumor. He had a chest tube placed initially which was converted to a pleurex catheter. He was started on carbo/alimta/bevacizumab for 6 cycles. Disease was stable on 11/02/20 CT chest. He was continued on maintenance alimta. Pleurex catheter was removed in January 2021 and shortly thereafter he developed right chest pain of insidious onset. This has progressed to a point of debilitation. His case was reviewed at tumor board on 02/24/21 and the consensus was this pain represents tumor seeding along the pleurex tract. He is seen today while admitted for uncontrolled pain for urgent RT to the right chest wall. Stage RUL NSCLC [id number] (effusion) stage CHERYL Performance Status ECOG 2 Plan We had an extensive discussion with Mr. Ratliff regarding the diagnosis at hand and available therapeutic options. He has tumor seeded along the pleurex tract which is the likely cause of his pain. He has been admitted for intractable pain which is reasonable and will facilitate more timely access to RT. I discussed simulating him tomorrow at 11AM and carrying out the first fraction of treatment ~4PM tomorrow. The regimen will be 30 Gy in 10 fractions with simple parallel opposed blackmon. I would not treat him over the weekend. He could resume RT as an outpatient (or inpatient, if still admitted) on 03/01/21 time of subsequent fractions TBD. For pain control I suggest a morphine BANQUET FOOD SERVER to establish needed narcotic to give him manageable pain control in the short term and then converting that dose to a home regimen consisting of a long acting medication for basal coverage and a short acting agent for breakthrough. Alternatively, could start with empiric ER morphine 15 mg BID and then add short acting for breakthrough. I would be happy to manage his pain in the short term upon discharge as he will be seeing me regularly in the coming weeks. I expect RT will improve his pain greatly, however the latency to improvement is usually 1-2 weeks from start, therefore he will surely need pain medication for the short term at least. We discussed the logistics of receiving radiation therapy in detail including the need for a 1-time planning session. We discussed the side effects of treatment including fatigue and skin reaction. After discussing the risks, benefits and alternatives to radiation therapy, Mr. Ratliff was amenable to pursuing radiotherapy. All questions were answered to the patient's satisfaction. We instructed the patient that if there were any questions,concerns or changes in clinical status in the interim to contact us. Recommendations Palliative RT to right chest wall 30 Gy in 10 fractions Simulation tomorrow 11AM, treatment ~4PM Pain control per primary team, suggest BANQUET FOOD SERVER and conversion to a combo of long and short acting opioids as above I would be happy to manage his pain medication in the short term upon discharge from the hospital Billing Statement Total time of [40] minutes was spent preparing for the visit [2], obtaining HPI [6], examining the patient [5], reviewing diagnostic tests [6], discussing management options [6], coordinating care [4], and writing this note [11]. CHANDRA RENEE MD Feb 25, 2021 17:28
[2021-02-25] MEDS: HumaLOG INSULIN (NovoLOG) PER UNIT SC SCH (17:30)
[2021-02-25] MEDS ORDERED: MORPHINE 4 MG/ML 1ML VIAL/SYRINGE (J2270) IV ONE (18:10)
[2021-02-25] MEDS ORDERED: MIDAZOLAM INJ 2MG/2ML VIAL (J2250 PER 1MG) As Ordered ONE ×2 (18:55→18:56)
[2021-02-25] MEDS ORDERED: flumazeniL 0.5 MG/5 ML VIAL As Ordered ONE (18:56)
[2021-02-25] MEDS ORDERED: LIDOCAINE 1% MDV 20ML VIAL As Ordered ONE (18:56)
--- NOTE | 2021-02-25 19:11 | ECGEPIP ---
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
[2021-02-25] MEDS ORDERED: BUPIVACAINE LIPOSOME/PF 1.3% 20ML VIAL (13.3MG/ML)(EXPAREL)(C9290 PER1MG) INJ ONE (19:20)
[2021-02-25] MEDS: MORPHINE 1MG/ML IN 0.9% NACL 100ML IV BAG IV PRN (20:34)
[2021-02-25] MEDS: NS 1,000 ML IV SCH (20:50)
[2021-02-25] MEDS: METOPROLOL TART 25 MG TABLET PO SCH (22:00)
[2021-02-25] MEDS: DOCUSATE SODIUM 100MG CAPSULE PO SCH (22:09)
[2021-02-26] VITALS (10 sets, daily range): BP systolic 119–153; BP diastolic 60–70; O2SAT 92–96
[2021-02-26] MEDS ORDERED: LIDOCAINE 1% MDV 20ML VIAL IM ONE
[2021-02-26] MEDS: IPRATROPIUM 0.5MG/ALBUTEROL 2.5MG INH SOL UD 3ML (DUONEB) INH SCH ×3 (00:44→20:00)
[2021-02-26] MEDS: SYMBICORT 160/4.5MCG INHALER 6GM INH SCH ×3 (00:45→19:49)
[2021-02-26] MEDS: ACETAMINOPHEN TAB 650MG DOSE (2X325MG) PO PRN ×2 (00:47→08:26)
[2021-02-26 05:25] LABS: HEMATOCRIT 31.1 % (42.0-52.0); HEMOGLOBIN 9.7 g/dl (13.5-17.5); MEAN CORPUSCULAR HEMOGLOBIN 27.1 pg (27.0-33.0); MEAN CORPUSCULAR HGB CONC 31.2 g/dl (32.0-36.5); MEAN CORPUSCULAR VOLUME 86.9 fl (80.0-96.0); PLATELET COUNT, AUTOMATED 441 10^3/uL (150-450); RED BLOOD COUNT 3.58 10^6/uL (4.30-6.10); WHITE BLOOD COUNT 8.9 10^3/uL (4.0-10.0)
[2021-02-26 05:52] LABS: ALBUMIN 2.3 GM/DL (3.2-5.2); ALT/SGPT 68 U/L (12-78); BILIRUBIN,TOTAL 0.5 MG/DL (0.2-1.0); BLOOD UREA NITROGEN 14 MG/DL (7-18); CALCIUM LEVEL 9.2 MG/DL (8.8-10.2); CARBON DIOXIDE LEVEL 29 MEQ/L (21-32); CHLORIDE LEVEL 101 MEQ/L (98-107); CREATININE FOR GFR 0.73 MG/DL (0.70-1.30); GLOMERULAR FILTRATION RATE > 60.0 (>49); GLUCOSE, FASTING 129 MG/DL (70-100); POTASSIUM SERUM 4.8 MEQ/L (3.5-5.1); SODIUM LEVEL 133 MEQ/L (136-145); TOTAL PROTEIN 6.5 GM/DL (6.4-8.2)
--- NOTE | 2021-02-26 06:16 | RO ---
PROCEDURE NOTE DATE OF OPERATION: 02/25/2021 Since being discharge from the hospital on 02/22 pathology has come back and shows him to have a tumor indeed in the chest wall and it is now causing pain. He called the office today again with intractable pain. We arranged for him to see radiation therapy urgently and they are going to start radiation therapy tomorrow. In the meantime he is still in extreme pain, therefore in addition to placing him on a CAR INSTALLATIONS SUPERVISOR pump I undertook a five level rib block with Exparel. SURGEON: LIZETT COOLEY M.D. PROCEDURE: Patient was prepped and draped in the usual sterile fashion after delineating the extent of the rib block. The skin and subcutaneous tissue was infiltrated with 1% Lidocaine. Lidocaine was not infiltrated under or into the extrathoracic muscles. Each rib was then successfully found, approximate ribs 6 through 9. Five ml of Exparel was then deposited beneath each rib. The patient tolerated the procedure well. This should work within an hour or so to give him pain relief anteriorly. If not, I will repeat the rib block tomorrow and go more anteriorly towards the painful tract. He will start radiation therapy tomorrow.
[2021-02-26] MEDS: TIOTROPIUM INHALER/CAPSULE (SPIRIVA) INH SCH (07:35)
[2021-02-26] MEDS: HumaLOG INSULIN (NovoLOG) PER UNIT SC SCH ×3 (08:25→17:52)
[2021-02-26] MEDS: ASPIRIN 81MG ENTERIC TABLET PO SCH (08:26)
[2021-02-26] MEDS: ENOXAPARIN 40MG/0.4ML SYRINGE (J1650 PER 10MG) SC SCH (08:27)
[2021-02-26] MEDS: PANTOPRAZOLE 40MG TAB (PROTONIX) PO SCH (08:27)
[2021-02-26] MEDS: MULTIVITAMINS/MINERALS THERAP 1 TAB PO SCH (08:27)
[2021-02-26] MEDS: FOLIC ACID 1 MG TAB PO SCH (08:27)
[2021-02-26] MEDS: FENOFIBRATE 145MG TABLET (TRICOR) PO SCH (08:27)
[2021-02-26] MEDS: DOCUSATE SODIUM 100MG CAPSULE PO SCH ×2 (08:27→20:01)
[2021-02-26] MEDS: ATORVASTATIN 20 MG TAB PO SCH (08:27)
[2021-02-26] MEDS: METOPROLOL TART 25 MG TABLET PO SCH ×2 (08:27→20:01)
--- NOTE | 2021-02-26 11:44 | IPN ---
PROGRESS NOTE DATE: 02/26/2021 SUBJECTIVE: Jamil was seen in the PCU, admitted with intractable right chest wall pain secondary to Stage IV non-small cell lung cancer metastatic to his chest wall. He had a five level rib block yesterday, his pain has gone from a 10/10 to a 7/10. OBJECTIVE: He is afebrile. Vital signs are stable. Lungs: Decreased breath sounds on the right. Heart: Regular rhythm. Abdomen is soft, nontender. LABORATORY DATA: Sodium is 133, potassium is 4.8, BUN 14, creatinine is 0.7, glucose is 129. White count is 8.9, hemoglobin is 9.7, platelets are 441,000. IMPRESSION: 1. Stage IV non-small lung cancer metastatic to right chest with right pleural effusion status post PleurX catheter last year, removed 02/06, presumed tumor seeding around PleurX catheter tract and now with current right chest tumor. He is getting radiation therapy from Dr. Elias. He is getting rib blocks by Dr. Bethea. His pain has already improved. He is anticipating another rib block today. 2. Type 2 diabetes, tight control of this is not a reasonable goal. 3. Hypertension, adequate control. 4. COPD, currently denying any shortness of breath. 5. Discharge once he has adequate pain control.
[2021-02-26] MEDS ORDERED: LIDOCAINE 1% MDV 20ML VIAL SC ONE (12:00)
[2021-02-26] MEDS ORDERED: BUPIVACAINE LIPOSOME/PF 1.3% 20ML VIAL (13.3MG/ML)(EXPAREL)(C9290 PER1MG) INFIL ONE (12:00)
--- NOTE | 2021-02-26 14:31 | RO ---
PROCEDURE NOTE DATE OF OPERATION: 02/26/2021 PROCEDURE: A four level rib block with Exparel. SURGEON: LIZETT COOLEY M.D. PROCEDURE: The patient was prepped and draped in the usual sterile fashion and the skin and subcutaneous tissue was infiltrated with 1% Lidocaine. The extrathoracic muscles were not infiltrated. Each rib was then found, two above and two below the PleurX tract incision. Five ml of Exparel was then injected below each rib. The patient tolerated the procedure well. We will await for the next hour to see if we get adequate pain control.
--- NOTE | 2021-02-26 14:31 | IPN ---
PROGRESS NOTE DATE: 02/26/2021 SUBJECTIVE: Mr. Ratliff is still quite tender along the PleurX tract. The rib block helped somewhat. He is still on the MEAT PROCESS WORKER pump of Morphine. He has been seen by radiation therapy and simulated this morning and will undergo his first treatment this afternoon. His vital signs shows a T-max of 100.2 with a heart rate that ranges between 77 and 86 and is sinus rhythm, respiratory rate is 18 to 22 without the use of accessory muscles, who is 95 to 97% saturated on 2 liters nasal cannula, and his blood pressure is ranging between 126/66 to 153/50. OBJECTIVE: His lungs show normal vesicular sounds on either side with a full percussion note on either side. His breath sounds are also equal on either side. Cardiac examination; Without murmurs, clicks, gallops or rubs. I cannot feel his PMI. S1, S2 are normal. Abdomen: Soft and nontender. Bowel sounds are positive. No hepatomegaly. No CVA tenderness. There is some tenderness in the right flank secondary to his PleurX tract pain. Extremities show no pretibial edema. No calf tenderness. No differential swelling of the upper extremities. Skin is warm, dry and perfused without cyanosis or mottling including that of nailbeds and knees. Neck is supple. There is no jugular venous distention. No subcutaneous emphysema. Trachea is midline. Mouth shows his mucous membranes to be pink and moist. Lips and commissures without lesions or thrush. Eyes show pupils equal and reactive. Extraocular motions are intact. Sclerae nonicteric. Neuro: Cranial nerves II-XII intact. Normal gross motor, gross sensation intact. Gait is not tested. Psychiatric: Awake and alert and oriented times three with appropriate mood and affect and conversational. LABORATORY DATA: His white count today is 8.9 with a hemoglobin and hematocrit of 9.7 and 31.1 with a platelet count of 441,000 and stable. Electrolytes are essentially normal with a marginally low sodium of 133. BUN and creatinine are 14 and 0.73 with a glucose of 129 and a calcium of 9.2, corresponding albumin of 2.3. I did not obtain a chest x-ray on him today. IMPRESSION: 1. Chest wall recurrence from malignant pleural effusion secondary to Stage IV non-small cell carcinoma. 2. Diabetes. 3. Hypertension. 4. COPD. 5. Inadequate pain control. PLAN: I will again do another rib block this time more anterior and closer to the PleurX tract. He is going for radiation today but that will take at least 10 treatments which we do not expect to have results for about 5 treatments.
[2021-02-26] MEDS: NS 1,000 ML IV SCH (16:00)
[2021-02-26] MEDS: CEPACOL LOZENGE PO PRN (20:34)
[2021-02-26] MEDS: BENZONATATE 100MG CAPSULE PO PRN (20:34)
[2021-02-27] VITALS (15 sets, daily range): BP systolic 115–132; BP diastolic 58–68; O2SAT 94–98
[2021-02-27 06:20] LABS: HEMATOCRIT 28.7 % (42.0-52.0); HEMOGLOBIN 9.2 g/dl (13.5-17.5); MEAN CORPUSCULAR HGB CONC 32.1 g/dl (32.0-36.5); MEAN CORPUSCULAR VOLUME 87.5 fl (80.0-96.0); RED BLOOD COUNT 3.28 10^6/uL (4.30-6.10); WHITE BLOOD COUNT 8.9 10^3/uL (4.0-10.0)
[2021-02-27 06:21] LABS: PLATELET COUNT, AUTOMATED 339 10^3/uL (150-450)
[2021-02-27 06:41] LABS: BLOOD UREA NITROGEN 12 MG/DL (7-18); CALCIUM LEVEL 8.5 MG/DL (8.8-10.2); CARBON DIOXIDE LEVEL 27 MEQ/L (21-32); CHLORIDE LEVEL 97 MEQ/L (98-107); CREATININE FOR GFR 0.75 MG/DL (0.70-1.30); GLOMERULAR FILTRATION RATE > 60.0 (>49); GLUCOSE, FASTING 149 MG/DL (70-100); POTASSIUM SERUM 4.7 MEQ/L (3.5-5.1); SODIUM LEVEL 130 MEQ/L (136-145)
[2021-02-27] MEDS: TIOTROPIUM INHALER/CAPSULE (SPIRIVA) INH SCH (07:14)
[2021-02-27] MEDS: SYMBICORT 160/4.5MCG INHALER 6GM INH SCH ×2 (07:15→19:55)
[2021-02-27] MEDS: IPRATROPIUM 0.5MG/ALBUTEROL 2.5MG INH SOL UD 3ML (DUONEB) INH SCH ×2 (08:00→19:49)
[2021-02-27] MEDS: HumaLOG INSULIN (NovoLOG) PER UNIT SC SCH ×3 (08:29→17:42)
[2021-02-27] MEDS: FENOFIBRATE 145MG TABLET (TRICOR) PO SCH (08:30)
[2021-02-27] MEDS: ASPIRIN 81MG ENTERIC TABLET PO SCH (08:30)
[2021-02-27] MEDS: MULTIVITAMINS/MINERALS THERAP 1 TAB PO SCH (08:30)
[2021-02-27] MEDS: ATORVASTATIN 20 MG TAB PO SCH (08:30)
[2021-02-27] MEDS: DOCUSATE SODIUM 100MG CAPSULE PO SCH ×2 (08:30→20:02)
[2021-02-27] MEDS: PANTOPRAZOLE 40MG TAB (PROTONIX) PO SCH (08:31)
[2021-02-27] MEDS: METOPROLOL TART 25 MG TABLET PO SCH ×2 (08:31→20:01)
[2021-02-27] MEDS: FOLIC ACID 1 MG TAB PO SCH (08:32)
[2021-02-27] MEDS: ENOXAPARIN 40MG/0.4ML SYRINGE (J1650 PER 10MG) SC SCH (08:32)
[2021-02-27] MEDS: BISACODYL 10 MG SUPP PR PRN (10:22)
[2021-02-27] MEDS: MORPHINE 1MG/ML IN 0.9% NACL 100ML IV BAG IV PRN (10:47)
--- NOTE | 2021-02-27 12:08 | IPN ---
PROGRESS NOTE DATE: 02/27/2021 SUBJECTIVE: Jamil is seen in the PCU. He had another rib block done by Dr. Bethea yesterday and seems to have helped. He is feeling better. He had radiation therapy yesterday. Per the patient, they plan to keep him in the hospital until he completes first several days of his radiation therapy. PHYSICAL EXAMINATION: Afebrile. Vital signs stable. Lungs: Decreased breath sounds on the right, better on the left. Heart: Regular rate and rhythm. Abdomen: Soft, nontender. LABORATORY DATA: Complete blood count (CBC) unremarkable. Basic metabolic panel (BMP) unremarkable. Sodium is down to 130. ASSESSMENT/PLAN: 1. Stage IV non-small cell lung cancer, metastatic to the right chest with seeding of PleurX catheter tract, status post rib block times two. He has started radiation therapy from Dr. Monroy. Plan is to keep him in the hospital while he does the initial phases of radiation therapy (the patient lives "[place]" of the [facility]. There is no telephone contact and there [place] a dirt road for [address]). 2. Diabetes. Tight control not needed. 3. Hypertension. Adequate control. 4. Hyponatremia. 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 Serum and urine osmolarity have been ordered.
[2021-02-27] MEDS: BENZONATATE 100MG CAPSULE PO PRN (13:05)
[2021-02-27] MEDS: NS 1,000 ML IV SCH (15:00)
--- NOTE | 2021-02-27 18:06 | IPN ---
PROGRESS NOTE DATE: 02/27/2021 SUBJECTIVE: does feel better today. His pain is less intense after the rib block last night. He is feeling constipated and has not had a bowel movement. OBJECTIVE: His vital signs showed a T-max of 100.4 with a heart rate that ranges between 87 and 105. He is in sinus rhythm with a respiratory rate of 18 to 18 without the use of accessory muscles, was 96% saturated on 2 liters nasal cannula. Has blood pressures ranging between 117/81 to 132/66. His intake and output for the last 24 hours is reported as 1440 in and 2545 for a negative of 800 mL. He weighs 76.4 kg today compared to 76.5 kg yesterday. PHYSICAL EXAMINATION: He has equal breath sounds on either side. Percussion is full to the diaphragm. Cardiac examination is without murmurs, clicks, gallops or rubs. I cannot feel his PMI. S1, S2 normal. Abdomen is soft, nontender. Bowel sounds are positive. There is no hepatomegaly. No costovertebral angle (CVA) tenderness. He is somewhat distended however. Extremities show no pretibial edema. No calf tenderness. No differential swelling of the upper extremities. Skin is warm, dry and perfuse without cyanosis or mottling including nailbeds and knees. Neck is supple. There is no jugular venous distention, no subcutaneous emphysema. Trachea is midline. Mouth shows mucous membranes to be pink and moist. Lips and commissures without lesions or thrush. Eyes show pupils equal and reactive. Extraocular motions intact. Sclerae anicteric. Neuro: Cranial nerves II-XII intact with gross motor intact. Gait is not tested. Psychiatric: Awake and alert and oriented times three with appropriate mood and affect and conversational. LABORATORY DATA: His white count today is 8.9 with hemoglobin and hematocrit of 9.2, and 28.7 with a platelet count of 339. Electrolytes show sodium 130 with a BUN and creatinine of 12 and 0.75, glucose of 149 and calcium of 8.5. There is no chest x-ray on him today. IMPRESSION: 1. Chest wall recurrence from malignancy pleural effusion secondary to stage IV non-small cell carcinoma. 2. Diabetes. 3. Hypertension. 4. Chronic obstructive pulmonary disease (COPD). 5. Adequate pain control, improved. PLAN/DISCUSSION: He is undergoing radiation therapy. I suspect that by the time he gets to his 5th treatment, he will be ready to go home and the pain will start to have abated. I will continue to offer him rib blocks when the pain returns. Exparel should last about 4 or 5 days.
[2021-02-27] MEDS: ACETAMINOPHEN TAB 650MG DOSE (2X325MG) PO PRN (20:01)
[2021-02-27] MEDS: guaiFENesin ER 600 MG TAB PO SCH (20:02)
[2021-02-28] VITALS (16 sets, daily range): BP systolic 123–155; BP diastolic 57–71; O2SAT 93–99
[2021-02-28 03:28] LABS: HEMATOCRIT 25.8 % (42.0-52.0); HEMOGLOBIN 8.3 g/dl (13.5-17.5); MEAN CORPUSCULAR HEMOGLOBIN 27.4 pg (27.0-33.0); MEAN CORPUSCULAR HGB CONC 32.2 g/dl (32.0-36.5); MEAN CORPUSCULAR VOLUME 85.1 fl (80.0-96.0); PLATELET COUNT, AUTOMATED 296 10^3/uL (150-450); RED BLOOD COUNT 3.03 10^6/uL (4.30-6.10); WHITE BLOOD COUNT 10.1 10^3/uL (4.0-10.0)
[2021-02-28] MEDS: BENZONATATE 100MG CAPSULE PO PRN ×2 (03:28→11:01)
[2021-02-28 03:57] LABS: BLOOD UREA NITROGEN 11 MG/DL (7-18); CALCIUM LEVEL 8.6 MG/DL (8.8-10.2); CARBON DIOXIDE LEVEL 27 MEQ/L (21-32); CHLORIDE LEVEL 99 MEQ/L (98-107); CREATININE FOR GFR 0.58 MG/DL (0.70-1.30); GLOMERULAR FILTRATION RATE > 60.0 (>49); GLUCOSE, FASTING 114 MG/DL (70-100); POTASSIUM SERUM 4.5 MEQ/L (3.5-5.1); SODIUM LEVEL 133 MEQ/L (136-145)
[2021-02-28] MEDS: IPRATROPIUM 0.5MG/ALBUTEROL 2.5MG INH SOL UD 3ML (DUONEB) INH SCH ×2 (07:06→19:34)
[2021-02-28] MEDS: TIOTROPIUM INHALER/CAPSULE (SPIRIVA) INH SCH (07:08)
[2021-02-28] MEDS: SYMBICORT 160/4.5MCG INHALER 6GM INH SCH ×2 (07:08→19:34)
[2021-02-28] MEDS: HumaLOG INSULIN (NovoLOG) PER UNIT SC SCH ×3 (07:30→17:30)
[2021-02-28] MEDS: ASPIRIN 81MG ENTERIC TABLET PO SCH (08:02)
[2021-02-28] MEDS: MULTIVITAMINS/MINERALS THERAP 1 TAB PO SCH (08:02)
[2021-02-28] MEDS: DOCUSATE SODIUM 100MG CAPSULE PO SCH ×2 (08:02→20:02)
[2021-02-28] MEDS: FENOFIBRATE 145MG TABLET (TRICOR) PO SCH (08:02)
[2021-02-28] MEDS: ENOXAPARIN 40MG/0.4ML SYRINGE (J1650 PER 10MG) SC SCH (08:02)
[2021-02-28] MEDS: FOLIC ACID 1 MG TAB PO SCH (08:02)
[2021-02-28] MEDS: ATORVASTATIN 20 MG TAB PO SCH (08:02)
[2021-02-28] MEDS: PANTOPRAZOLE 40MG TAB (PROTONIX) PO SCH (08:02)
[2021-02-28] MEDS: guaiFENesin ER 600 MG TAB PO SCH ×2 (08:02→20:01)
[2021-02-28] MEDS: METOPROLOL TART 25 MG TABLET PO SCH ×2 (10:28→20:07)
--- NOTE | 2021-02-28 10:40 | REP ---
INDICATION: ?pleural effusion, consolidation COMPARISON: 02/25/2021. TECHNIQUE: PA/Lateral FINDINGS: Lungs: Right lower lobe infiltrate is unchanged. No new infiltrate is seen on the left. Heart: Normal in size. Mediastinum: Mediastinal silhouette unremarkable. Pleural angles: There is mild right pleural fluid or thickening unchanged.. Bones and soft tissues: Unremarkable. A right central venous catheter is unchanged. IMPRESSION: Stable exam. <Electronically signed by Jhoan Reed > 02/28/21 103
[2021-02-28] MEDS: CEPACOL LOZENGE PO PRN (11:01)
--- NOTE | 2021-02-28 16:01 | IPN ---
PROGRESS NOTE DATE: 02/28/2021 SUBJECTIVE: Jamil seen in the PCU. He is feeling a little more right chest pain. No fever, chills, shortness of breath. PHYSICAL EXAM: Vital signs: Stable. Lungs: Decreased breath sounds on the right, clear on the left. Heart: Regular rate and rhythm. Abdomen: Soft, nontender. LABS: Look unremarkable today. Sodium is stable. IMPRESSION: Chest wall recurrence from a stage IV non-small cell lung cancer, malignant pleural effusion. PLAN: 1. To keep him in the hospital until he has completed five radiation therapy sessions. [place], does not actually have any phone access where he lives. Dr. Bethea thinks he should be stable for discharge with adequate pain control after about five radiation therapy sessions but that decision will need to be made on a case by case basis. 2. Hyponatremia. Suspect SIADH from the lung process. Order serum and urine osmolarity. The urine osmolarity has not been done yet. It should have been done at the same time as the serum osmolarity. In any case, it is stable.
[2021-02-28] MEDS: NS 1,000 ML IV SCH (20:14)
[2021-03-01] VITALS (23 sets, daily range): BP systolic 133–151; BP diastolic 61–74; O2SAT 89–99
[2021-03-01] MEDS: CEPACOL LOZENGE PO PRN ×2 (03:10→18:47)
[2021-03-01] MEDS: BENZONATATE 100MG CAPSULE PO PRN ×3 (03:10→20:35)
[2021-03-01 05:33] LABS: HEMATOCRIT 27.2 % (42.0-52.0); HEMOGLOBIN 8.9 g/dl (13.5-17.5); MEAN CORPUSCULAR HEMOGLOBIN 27.9 pg (27.0-33.0); MEAN CORPUSCULAR HGB CONC 32.7 g/dl (32.0-36.5); MEAN CORPUSCULAR VOLUME 85.3 fl (80.0-96.0); PLATELET COUNT, AUTOMATED 258 10^3/uL (150-450); RED BLOOD COUNT 3.19 10^6/uL (4.30-6.10); WHITE BLOOD COUNT 7.9 10^3/uL (4.0-10.0)
[2021-03-01 05:50] LABS: BLOOD UREA NITROGEN 10 MG/DL (7-18); CALCIUM LEVEL 8.8 MG/DL (8.8-10.2); CARBON DIOXIDE LEVEL 28 MEQ/L (21-32); CHLORIDE LEVEL 96 MEQ/L (98-107); CREATININE FOR GFR 0.61 MG/DL (0.70-1.30); GLOMERULAR FILTRATION RATE > 60.0 (>49); GLUCOSE, FASTING 150 MG/DL (70-100); POTASSIUM SERUM 4.9 MEQ/L (3.5-5.1); SODIUM LEVEL 130 MEQ/L (136-145)
[2021-03-01] MEDS: IPRATROPIUM 0.5MG/ALBUTEROL 2.5MG INH SOL UD 3ML (DUONEB) INH SCH ×2 (07:30→19:32)
[2021-03-01] MEDS: SYMBICORT 160/4.5MCG INHALER 6GM INH SCH ×2 (07:32→19:32)
[2021-03-01] MEDS: TIOTROPIUM INHALER/CAPSULE (SPIRIVA) INH SCH (07:32)
[2021-03-01] MEDS: FENOFIBRATE 145MG TABLET (TRICOR) PO SCH (08:13)
[2021-03-01] MEDS: ENOXAPARIN 40MG/0.4ML SYRINGE (J1650 PER 10MG) SC SCH (08:13)
[2021-03-01] MEDS: HumaLOG INSULIN (NovoLOG) PER UNIT SC SCH ×3 (08:13→17:06)
[2021-03-01] MEDS: ASPIRIN 81MG ENTERIC TABLET PO SCH (08:13)
[2021-03-01] MEDS: DOCUSATE SODIUM 100MG CAPSULE PO SCH ×2 (08:14→20:33)
[2021-03-01] MEDS: ATORVASTATIN 20 MG TAB PO SCH (08:14)
[2021-03-01] MEDS: PANTOPRAZOLE 40MG TAB (PROTONIX) PO SCH (08:14)
[2021-03-01] MEDS: guaiFENesin ER 600 MG TAB PO SCH ×2 (08:14→20:34)
[2021-03-01] MEDS: FOLIC ACID 1 MG TAB PO SCH (08:14)
[2021-03-01] MEDS: MULTIVITAMINS/MINERALS THERAP 1 TAB PO SCH (08:14)
[2021-03-01] MEDS: METOPROLOL TART 25 MG TABLET PO SCH ×2 (08:14→20:34)
--- NOTE | 2021-03-01 08:18 | IPN ---
PROGRESS NOTE DATE: 02/28/2021 SUBJECTIVE: Mr. Ratliff still has pain at his PleurX catheter tract. He rates it as a 7 but it not any worse than yesterday where he has some improvement from the rib block. He did have a bowel movement yesterday. His vital signs shows a T-max of 98.8 with a heart rate that ranges between 78 and 92 and a sinus rhythm, respiratory rate of 18 to 20 without the use of accessory muscles who is 94 to 98% saturated on 3 liters nasal cannula and his blood pressure is ranging between 123/57 to 155/21. His intake and output over past 24 hours has been recorded as 915 in and 885 out for a near equality. He weighs 76.3 kilos today compared to 76.4 kilos yesterday. OBJECTIVE: He has equal breath sounds on either side. Percussion note is full to the diaphragm. He is still very tender along the PleurX tract on the right side. Cardiac examination is without murmurs, clicks, gallops or rubs. I cannot feel his PMI. S1, S2 normal. Abdomen is soft, nontender. Bowel sounds are positive. There is no hepatomegaly. No CVA tenderness on the left and there is CVA tenderness on the right referable to his chest wall pain. Extremities show no pretibial edema. No calf tenderness. No differential swelling of the upper extremities. Skin is warm, dry and perfused without cyanosis or mottling including nailbeds and knees. Neck is supple. There is no jugular venous distention, no subcutaneous emphysema. Trachea is midline. Mouth shows mucous membranes to be pink and moist. Lips and commissures without lesions or thrush. Eyes show pupils equal and reactive. Extraocular muscles intact. Sclerae anicteric. Neuro: Cranial nerves II-XII intact. Normal gross motor, gross sensation intact. Gait is not tested. Psychiatric: Awake and alert and oriented times three with appropriate mood and affect and conversational. LABORATORY DATA: His white count today is 10.1 with a hemoglobin and hematocrit of 8.3 and 25.8, significantly reduced from 9.2 and 28.7. His electrolytes shows a sodium of 133 with a BUN and creatinine of 11 and 0.58, glucose of 114 and a calcium of 8.6. I did obtain a chest x-ray on him today and it is unchanged from the chest x-ray of 02/22. He has some blunting of the right costophrenic angle. I see no infiltrates. There may be a reticular nodular pattern in the right lower lobe. This however is unchanged from 02/25. IMPRESSION: 1. Chest wall recurrence from malignant pleural effusion secondary to adenocarcinoma. 2. Diabetes. 3. Hypertension. 4. COPD. 5. Inadequate pain control, somewhat improved. PLAN/DISCUSSION: In consultation with the patient, I will hold off doing another rib block today. We may do one tomorrow. He will also receive his next radiation therapy tomorrow. I am hoping by the time he is half way through his radiation therapy his pain will be controlled that we can discharge him.
[2021-03-01] MEDS ORDERED: LIDOCAINE 1% MDV 20ML VIAL As Ordered ONE (08:41)
[2021-03-01] MEDS ORDERED: BUPIVACAINE LIPOSOME/PF 1.3% 20ML VIAL (13.3MG/ML)(EXPAREL)(C9290 PER1MG) INFIL ONE ×2 (09:00→09:05)
[2021-03-01] MEDS ORDERED: LIDOCAINE 1% MDV 20ML VIAL SC ONE (09:00)
--- NOTE | 2021-03-01 10:11 | IPN ---
PROGRESS NOTE DATE: 03/01/2021 SUBJECTIVE: Mr. Ratliff has increased pain in his PleurX tract site into the posterior hemithorax. He thinks that it is time for a rib block and I agree. He is going for radiation therapy today for his second round. His vital signs shows a T-max of 98.7 with a heart rate that ranges between 81 and 95 and is sinus rhythm, respiratory rate is 18 to 22 without the use of accessory muscles who is 93 to 96% saturated on 2 liters nasal cannula. His blood pressure ranges between 144/65 to 147/67. His intake and output over the past 24 hours has been recorded as 965 in and 1050 out for a negativity of 85 ml. He weighs 75 kilos today compared to 76.3 kilos yesterday. OBJECTIVE: His lungs show some decreased breath sounds on the right lower hemithorax. Percussion note however is full to the diaphragm. Cardiac examination is without murmurs, clicks, gallops or rubs. I cannot feel his PMI. S1, S2 normal. Abdomen is soft, nontender. Bowel sounds are positive. There is no hepatomegaly. No CVA tenderness. He is slightly distended. Extremities show no pretibial edema. No calf tenderness. No differential swelling of the upper extremities. Skin is warm, dry and perfused without cyanosis or mottling including that of nailbeds and knees. Neck is supple. There is no jugular venous distention, no subcutaneous emphysema. Trachea is midline. Mouth shows mucous membranes to be pink and moist. Lips and commissures without lesions or thrush. Eyes show pupils equal and reactive. Extraocular motions are intact. Sclerae anicteric. Neuro: Cranial nerves II-XII intact. Normal gross motor, gross sensation intact. Gait is not tested. Psychiatric: Awake and alert and oriented times three with appropriate mood and affect and conversational. LABORATORY DATA: His white count today is 7.9 with a hemoglobin and hematocrit of 8.9 and 27.2, increased from 8.3 and 25.8 yesterday. Platelet count is 258,000. Electrolytes shows a sodium of 130 with a potassium of 4.9. BUN and creatinine are 10 and 0.61 with a glucose of 115 and a calcium of 8.8. There is no chest x-ray on him today. IMPRESSION: 1. Chest wall recurrence from malignant pleural effusion secondary to metastatic adenocarcinoma. 2. Diabetes. 3. Hypertension. 4. COPD. 5. Inadequate pain control. PLAN/DISCUSSION: I will perform another rib block today with Tejall. As noted before, I am trying to get him through about five treatments for his pain to start abating with radiation therapy.
--- NOTE | 2021-03-01 11:16 | IPN ---
PROGRESS NOTE DATE: 03/01/2021 SUBJECTIVE: Jamil is seen in the PCU. He is having still a fair amount of right sided chest wall pain that kept him awake last night, he also has had trouble sleeping as he is concerned about his progressive cancer. He says "I am dying of cancer and I can't get it off my mind." OBJECTIVE: VITAL SIGNS: Afebrile. Vital signs are stable. LUNGS: Decreased breath sounds on the right and normal on the left. HEART: Regular rate and rhythm. ABDOMEN: Soft, nontender. Most of his tray is uneaten. LABORATORY DATA: Sodium is 138, potassium is 4.9, BUN 10, creatinine is 0.6, glucose is 150, white count is 7.9, hemoglobin is 8.9, platelets are 258,000. IMPRESSION: 1. Stage IV non-small cell lung cancer with right chest wall involvement and seeding of the PleurX catheter tract. He has had rib blocks done twice. He is getting radiation therapy from Dr. Elias. The plan is to keep him in the hospital for his radiation therapy until his pain is under adequate control. [place] any consistent telephone contact. 2. Diabetes, under adequate control. 3. Hypertension, under adequate control. 4. Sleep disturbance with some adjustment disorder with depressed mood. Will add some mirtazapine at bedtime which will help with sleep, appetite and mood. PLAN: Discharge once he has received enough radiation therapy to make his pain manageable.
[2021-03-01] MEDS: NS 1,000 ML IV SCH (15:00)
[2021-03-01] MEDS: MIRTAZAPINE 15 MG TAB PO SCH (20:35)
[2021-03-02] VITALS (15 sets, daily range): BP systolic 128–158; BP diastolic 67–82; O2SAT 92–99
[2021-03-02 05:33] LABS: HEMATOCRIT 28.3 % (42.0-52.0); HEMOGLOBIN 9.3 g/dl (13.5-17.5); MEAN CORPUSCULAR HEMOGLOBIN 27.8 pg (27.0-33.0); MEAN CORPUSCULAR HGB CONC 32.9 g/dl (32.0-36.5); MEAN CORPUSCULAR VOLUME 84.7 fl (80.0-96.0); PLATELET COUNT, AUTOMATED 231 10^3/uL (150-450); RED BLOOD COUNT 3.34 10^6/uL (4.30-6.10); WHITE BLOOD COUNT 4.5 10^3/uL (4.0-10.0)
[2021-03-02 05:54] LABS: BLOOD UREA NITROGEN 9 MG/DL (7-18); CALCIUM LEVEL 8.8 MG/DL (8.8-10.2); CARBON DIOXIDE LEVEL 28 MEQ/L (21-32); CHLORIDE LEVEL 95 MEQ/L (98-107); CREATININE FOR GFR 0.54 MG/DL (0.70-1.30); GLOMERULAR FILTRATION RATE > 60.0 (>49); GLUCOSE, FASTING 127 MG/DL (70-100); POTASSIUM SERUM 4.9 MEQ/L (3.5-5.1); SODIUM LEVEL 130 MEQ/L (136-145)
[2021-03-02] MEDS: SYMBICORT 160/4.5MCG INHALER 6GM INH SCH ×2 (07:29→20:28)
[2021-03-02] MEDS: TIOTROPIUM INHALER/CAPSULE (SPIRIVA) INH SCH (07:29)
[2021-03-02] MEDS: IPRATROPIUM 0.5MG/ALBUTEROL 2.5MG INH SOL UD 3ML (DUONEB) INH SCH ×2 (07:29→20:00)
[2021-03-02] MEDS: HumaLOG INSULIN (NovoLOG) PER UNIT SC SCH ×3 (07:30→17:43)
[2021-03-02] MEDS: SODIUM CHLORIDE NASAL 0.65% SPRAY BTL (OCEAN) SCH ×2 (09:00→20:42)
[2021-03-02] MEDS: METOPROLOL TART 25 MG TABLET PO SCH ×2 (09:23→20:44)
[2021-03-02] MEDS: MULTIVITAMINS/MINERALS THERAP 1 TAB PO SCH (09:23)
[2021-03-02] MEDS: FENOFIBRATE 145MG TABLET (TRICOR) PO SCH (09:23)
[2021-03-02] MEDS: DOCUSATE SODIUM 100MG CAPSULE PO SCH ×2 (09:23→20:42)
[2021-03-02] MEDS: guaiFENesin ER 600 MG TAB PO SCH ×2 (09:23→20:43)
[2021-03-02] MEDS: ENOXAPARIN 40MG/0.4ML SYRINGE (J1650 PER 10MG) SC SCH (09:23)
[2021-03-02] MEDS: ASPIRIN 81MG ENTERIC TABLET PO SCH (09:23)
[2021-03-02] MEDS: FOLIC ACID 1 MG TAB PO SCH (09:23)
[2021-03-02] MEDS: PANTOPRAZOLE 40MG TAB (PROTONIX) PO SCH (09:24)
[2021-03-02] MEDS: ATORVASTATIN 20 MG TAB PO SCH (09:24)
[2021-03-02] MEDS: MORPHINE 1MG/ML IN 0.9% NACL 100ML IV BAG IV PRN (10:15)
--- NOTE | 2021-03-02 10:35 | IPN ---
PROGRESS NOTE DATE: 03/02/2021 SUBJECTIVE: Mr. Ratliff is feeling better today. His pain is less intense after the rib block and after his second radiation therapy. He is going down right now as I dictate this note for his third radiation session. His vital signs shows a T-max of 99.0 with a heart rate that ranges between 81 and 82 and is sinus rhythm, respiratory rate is constant at 18, he is 97 to 98% saturated on 2 liters nasal cannula, his blood pressure is ranging between 154/82 to 153/74. His intake and output over the past 24 hours is recorded as 652 in and 1020 out for a negativity of 350 ml. He is not eating very much. His p.o. intake has only been 360 ml. His weight today is 74.6 kilos compared to 75 kilos yesterday. OBJECTIVE: His lungs show nearly equal breath sounds on either side with some scattered rhonchi on both sides with the left side clearing with coughing. Percussion note is full to the diaphragm. Cardiac examination is without murmurs, clicks, gallops or rubs. I cannot feel his PMI. S1, S2 normal. Abdomen is soft, nontender. Bowel sounds are positive. There is no hepatomegaly. No CVA tenderness. Extremities show no pretibial edema. No calf tenderness. No differential swelling of the upper extremities. Skin is warm, dry and perfused without cyanosis or mottling including that of nailbeds and knees. Neck is supple. There is no jugular venous distention, no subcutaneous emphysema. Trachea is midline. Mouth shows mucous membranes to be pink and moist. Lips and commissures without lesions or thrush. Eyes show pupils equal and reactive. Extraocular motions are intact. Sclerae anicteric. Neuro: Cranial nerves II-XII intact. Normal gross motor, gross sensation intact. Gait is not tested. Psychiatric: Awake and alert and oriented times three with appropriate mood and affect and conversational. LABORATORY DATA: His white count today is 4.5 with a hemoglobin and hematocrit of 9.3 and 28.3 which continues to improve. Platelet count is 231,000 and stable. There is no differential. Her electrolytes shows a sodium of 130 which is unchanged from yesterday with a total CO2 of 28 and a BUN and creatinine of 9 and 0.54. Glucose is 127 with a calcium of 8.8. There is no chest x-ray on him today. IMPRESSION: 1. Chest wall recurrence with malignant pleural effusion secondary to metastatic adenocarcinoma from right upper lobe lesion. 2. Diabetes. 3. Hypertension. 4. COPD. 5. Inadequate pain control, improving. PLAN/DISCUSSION: Will continue him in the hospital on the TOPOLOGY PROFESSOR pump. I am gratified that the rib block seems to have had some effect. Will continue his radiation therapy. My overall game plan was to try and discharge him after the fifth or sixth session of radiation.
--- NOTE | 2021-03-02 10:35 | RO ---
OPERATIVE NOTE DATE OF OPERATION: 03/01/2021 PREOPERATIVE DIAGNOSIS: Chest wall pain secondary to tumor infiltration. POSTOPERATIVE DIAGNOSIS: Chest wall pain secondary to tumor infiltration. PROCEDURE: A six level rib block with Exparel. SURGEON: LIZETT COOLEY M.D. DESCRIPTION OF PROCEDURE: The patient was prepped and draped in the usual sterile fashion. Because he was complaining of more pain below the PleurX site, a six level rib block was then undertaken. The skin and subcutaneous tissue was infiltrated with 1% Lidocaine. No Lidocaine was infiltrated below the extrathoracic muscles. Each inferior side of the rib was located and 5 ml deposition of Exparel was infused beneath each rib. Another 10 ml of Exparel was infused into the entrance wound of the PleurX catheter site. The patient tolerated the procedure well. He started to get pain control within three minutes of the rib block.
[2021-03-02] MEDS ORDERED: guaiFENesin/CODEINE SYRUP 5 ML UDC PO PRN (14:00)
--- NOTE | 2021-03-02 14:10 | IPNPDOC ---
Date Seen The patient was seen on 03/02/21. Progress Note SUBJECTIVE: Patient was seen examined at bedside. He received a third session of radiation therapy to his chest wall. States that his pain persisted approximate 6 out of 10. He received a rib block on 03/01/2021. Patient states that his cough is bothersome and he does not have significant improvement with Tessalon or guaifenesin. He continues to be in the AUTOMOTIVE GLASS TECHNICIAN pump for pain control. Patient states that overall his pain is slightly improved however he does not feel ready for discharge. OBJECTIVE PHYSICAL EXAMINATION: VITAL SIGNS: please see below General: NAD, comfortable HEENT: PERRLA, EOMI, sclerae clear Neck: supple, normal ROM, no JVD Respiratory: Good inspiratory effort, equal breath sounds, rhonchi bilaterally slightly improved on left, no wheeze, no rales, no crackles CVS: RRR, normal S1, S2, no murmurs Abdo: soft, no masses, no hepatosplenomegaly, BS+, no rebound tenderness Extremities: no edema, pulses 2+ MSK: no joint deformities, normal ROM Neuro: no focal neuro deficits, moving all 4 extremities, CN2-12 intact. Strength 5/5 in all 4 extremities. No nystagmus. Psych: calm, cooperative, AAO x 3 LABORATORY DATA, IMAGING STUDIES, MICROBIOLOGY: Please see below. DVT prophylaxis ordered?: Lovenox, 40 mg subcu daily. 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 PROBLEMS: Stage IV NSCL, R chest wall involvement, seeding of PleurX catheter tract: - continue with radiation therapy, today session 4. - pain control with rib blocks by Dr. Bethea, AUTOMOTIVE GLASS TECHNICIAN pump - patient [place] in [place] area, need to have improved pain control prior to DC. Intractable cough - not responding to tessalon, poor response to mucinex - will trial robitussin with codeine 5 ml q12h prn Type 2 diabetes - ISS and FSBS AC and HS HTN - continue present regimne Sleep disturbance with adjustment disorder, and depressed mood - continue mirtazapine. Dispo: likely DC home after adequate pain control has been achieved. VS, I&O, 24H, Fishbone Vital Signs/I&O Vital Signs Date Time Temp Pulse Resp B/P (MAP) Pulse Ox O2 Delivery O2 Flow Rate FiO2 03/02/21 12:00 97.9 78 20 128/ (42) 96 Nasal Cannula 2.0 I&O- Last 24 Hours up to 6 AM 03/02/21 06:00 Intake Total 502.5 ml Output Total 975 ml Balance -472.5 ml Laboratory Data 24H LABS Laboratory Tests 2 03/01/21 17:01: Bedside Glucose (Misc Panel) 111 03/02/21 05:14: Nucleated Red Blood Cells % (auto) 0.0, Anion Gap 7L, Glomerular Filtration Rate > 60.0, Calcium Level 8.8 03/02/21 11:40: Bedside Glucose (Misc Panel) 171H CBC/BMP Laboratory Tests 03/02/21 05:14 ERA DA SILVA MD Mar 02, 2021 14:10
[2021-03-02] MEDS: NS 1,000 ML IV SCH (15:05)
[2021-03-02] MEDS: BISACODYL 10 MG SUPP PR PRN (17:43)
[2021-03-02] MEDS: MIRTAZAPINE 15 MG TAB PO SCH (20:46)
[2021-03-03] VITALS (16 sets, daily range): BP systolic 127–176; BP diastolic 62–82; O2SAT 96–100
[2021-03-03 04:58] LABS: HEMATOCRIT 27.3 % (42.0-52.0); HEMOGLOBIN 9.2 g/dl (13.5-17.5); MEAN CORPUSCULAR HEMOGLOBIN 28.1 pg (27.0-33.0); MEAN CORPUSCULAR HGB CONC 33.7 g/dl (32.0-36.5); MEAN CORPUSCULAR VOLUME 83.5 fl (80.0-96.0); PLATELET COUNT, AUTOMATED 241 10^3/uL (150-450); RED BLOOD COUNT 3.27 10^6/uL (4.30-6.10); WHITE BLOOD COUNT 4.6 10^3/uL (4.0-10.0)
[2021-03-03] MEDS: ONDANSETRON 4 MG TAB PO PRN (06:14)
[2021-03-03 06:40] LABS: BLOOD UREA NITROGEN 9 MG/DL (7-18); CALCIUM LEVEL 8.8 MG/DL (8.8-10.2); CARBON DIOXIDE LEVEL 25 MEQ/L (21-32); CHLORIDE LEVEL 92 MEQ/L (98-107); CREATININE FOR GFR 0.54 MG/DL (0.70-1.30); GLOMERULAR FILTRATION RATE > 60.0 (>49); GLUCOSE, FASTING 131 MG/DL (70-100); POTASSIUM SERUM 4.6 MEQ/L (3.5-5.1); SODIUM LEVEL 126 MEQ/L (136-145)
[2021-03-03] MEDS: IPRATROPIUM 0.5MG/ALBUTEROL 2.5MG INH SOL UD 3ML (DUONEB) INH SCH ×2 (07:40→20:00)
[2021-03-03] MEDS: TIOTROPIUM INHALER/CAPSULE (SPIRIVA) INH SCH (07:41)
[2021-03-03] MEDS: SYMBICORT 160/4.5MCG INHALER 6GM INH SCH ×2 (07:41→20:41)
[2021-03-03] MEDS: DOCUSATE SODIUM 100MG CAPSULE PO SCH ×2 (08:18→21:12)
[2021-03-03] MEDS: ASPIRIN 81MG ENTERIC TABLET PO SCH (08:18)
[2021-03-03] MEDS: FENOFIBRATE 145MG TABLET (TRICOR) PO SCH (08:18)
[2021-03-03] MEDS: ATORVASTATIN 20 MG TAB PO SCH (08:19)
[2021-03-03] MEDS: guaiFENesin ER 600 MG TAB PO SCH ×2 (08:19→21:12)
[2021-03-03] MEDS: MULTIVITAMINS/MINERALS THERAP 1 TAB PO SCH (08:19)
[2021-03-03] MEDS: FOLIC ACID 1 MG TAB PO SCH (08:21)
[2021-03-03] MEDS: HumaLOG INSULIN (NovoLOG) PER UNIT SC SCH ×3 (08:22→18:12)
[2021-03-03] MEDS: SODIUM CHLORIDE NASAL 0.65% SPRAY BTL (OCEAN) SCH ×2 (08:23→21:11)
[2021-03-03] MEDS: PANTOPRAZOLE 40MG TAB (PROTONIX) PO SCH (08:23)
[2021-03-03] MEDS: METOPROLOL TART 25 MG TABLET PO SCH ×2 (08:23→21:15)
[2021-03-03] MEDS: ENOXAPARIN 40MG/0.4ML SYRINGE (J1650 PER 10MG) SC SCH (08:23)
[2021-03-03 09:25] LABS: OSMOLALITY SERUM 260 MOSM/KG (280-301)
[2021-03-03] MEDS ORDERED: PERCOCET 5MG/325MG TAB PO PRN (11:30)
[2021-03-03] MEDS: NYSTATIN 500,000 U/5 ML SUSP UDC SS SCH ×3 (12:39→21:16)
[2021-03-03] MEDS: PERCOCET 5MG/325MG TAB PO PRN ×3 (12:40→22:52)
--- NOTE | 2021-03-03 13:30 | IPN ---
PROGRESS NOTE DATE: 03/03/2021 SUBJECTIVE: Mr. Yepez pain is still present. It has increased this morning and he has used his SWEATBAND FLANGER pump. He is going now for his fourth radiation treatment this morning. His vital signs shows a T-max of 98.6 with a heart rate that ranges between 74 and 87 and is sinus rhythm, respiratory rate of 18 to 22 without the use of accessory muscles who is 96 to 98% saturated on 2 liters of nasal cannula and his blood pressure is ranging between 152/75 to 176/80. His intake and output over the past 24 hours has been recorded as 1020 in and 975 out for a near equality. His weight today is 76.3 kilos compared to 74.6 kilos yesterday. OBJECTIVE: His lungs show nearly equal breath sounds on either side. I do not hear any wheezes, rhonchi or rales today. Percussion note is full to the diaphragm. Cardiac examination is without murmurs, clicks, gallops or rubs. I cannot feel his PMI. S1, S2 normal. Abdomen is soft, nontender. Bowel sounds are positive. There is no hepatomegaly. No CVA tenderness. Extremities show no pretibial edema. No calf tenderness. No differential swelling of the upper extremities. Skin is warm, dry and perfused without cyanosis or mottling including that of nailbeds and knees. Neck is supple. There is no jugular venous distention, no subcutaneous emphysema. Trachea is midline. Mouth shows mucous membranes to be pink and moist. Lips and commissures without lesions or thrush. Eyes show pupils equal and reactive. Extraocular motions are intact. Sclerae anicteric. Neuro: Cranial nerves II-XII intact. Normal gross motor, gross sensation intact. Gait is not tested. Psychiatric: Awake and alert and oriented times three with appropriate mood and affect and conversational. LABORATORY DATA: His white count today is 4.6 with a hemoglobin and hematocrit of 9.9 and 27.3, essentially unchanged from yesterday with a platelet count of 241,000. Electrolytes today shows him to be hyponatremic with a sodium of 126 which is gradually decreasing. BUN and creatinine are 9 and 0.54 with a glucose of 131 and a calcium of 8.8. He is hyposmolar with an osmolality of 260. There is no chest x-ray on him today. IMPRESSION: 1. Metastatic adenocarcinoma from right upper lobe lesion. 2. Chest wall recurrence with malignant pleural effusion secondary to the above. 3. Diabetes. 4. Hypertension. 5. COPD. 6. Inadequate pain control, somewhat improved. 7. Hypotonic hyponatremia. PLAN AND DISCUSSION: He looks to be euvolemic. 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 I will send off a urine osmolality as well as a urine sodium. He certainly is not polydipsic. We will continue with radiation therapy. I am going to discontinue the SWEATBAND FLANGER pump today and transition him to oral pain control. I am hoping I will be able to discharge him tomorrow on oral pain control and/or a Fentanyl patch.
--- NOTE | 2021-03-03 13:46 | CR.PDOC ---
General Date of Consultation: Mar 03, 2021 Referring Provider: John Poole MD Primary Care Physician: Arelis Nelson Attending Physician: ERA DA SILVA MD Consultation REASON FOR CONSULTATION/CHIEF COMPLAINT: Contacted by conference planner Yaron Martinez to see Mr. Ratliff who is known to me from a previous hospitalization in June 2020. He has stage 4 lung cancer and previously had pleural effusion that was managed with Pleurex. When Pleurex catheter was removed, unfortunately some cancer cells were seeded and Mr. Ratliff had significatn pain from this. He has been treated with rib blocks by Dr. Bethea, RT by Dr. Monroy ( ongoing ), ketorolac and a morphine POOL INSTALLER. His IV opiate needs have greatly decreased since rib blocks and RT and today his POOL INSTALLER was d/c and he was started on Percocet. He is currently a full code. He reports he was doing fairly well prior to this, is currently receiving maintanence chemotherapy which he stated loja caused him some problems with poor appetite, fatigue, dysgeusia. He has not completed advance directives as yet, but reports he has them "in a folder at home". FNA showed lung cancer from tissue sent to pathology after Pleurex removal. HISTORY OF PRESENT ILLNESS: as above ALLERGIES: Please see below. HOME MEDICATIONS: Please see below. PAST MEDICAL HISTORY: 1. Stage 4 lung cancer 2. Type 2 DM 3. HTN 4. COPD SOCIAL HISTORY: Marital status and/or living arrangements:lives with fiance Children: 1 daughter Employment: retired Tobacco use: ETOH: reports he is not consuming as much beer as it no longer appeals to him Illicit drug use: no IV drug use: no Other relevant social factors: REVIEW OF SYSTEMS: CONSTITUTIONAL: no fevers HEENT: complains of oral thrush, being treated CARDIOVASCULAR: no complaints RESPIRATORY: cough which he feels is related to PND GENITOURINARY: no complaints MUSCULOSKELETAL: no complaints GASTROINTESTINAL: constipation; using stool softener and suppositories prn, poor appetite. SKIN: no complaints. NEUROLOGICAL: n/a PSYCHIATRIC: reports having periods of depression and anxiety around his diagnosis, increased pain prior to admission ENDOCRINE: type 2 dm HEMATOLOGIC/LYMPHATIC: stage 4 lung cancer PHYSICAL EXAMINATION: VITAL SIGNS: Please see below. GENERAL APPEARANCE: Alert, oriented, no acute distress, Pleasant cooperative and well able to make his needs known Respirations were full and easy, no use of accessory muscles noted PSYCHIATRIC: He did not appear anxious at the time of our visit today but endorses episodic feelings of sadness and anxiety over his illness, reduced functioning, inabilty to enjoy life. LABORATORY DATA: Please see below. ASSESSMENT/PLAN: 1. Lung cancer with chest wall pain: Mr. Ratliff will follow up in my clinic March 16 in conjunction with his follow up appointment for chemotherapy. He indicated he thought Percocet he recieved at the beginning of our visit today was starting to work to control his pain. He should continue to take Aleve twice daily for 10 days after discharge as a na djunct medication to manage his chest wall pain. He was informed RT will also be helpful and will continue to provide some reduction in his pain even after he completes this therapy. 2. COnstipation He may have better results with senna tablets 2 tab hs to promote some movement in his GI tract. We also told him about some senna teas available and will inform his fiance of these later today 3. Advance directives. Mr Ratliff will complete these at his next appointment with [facility] Mar 16. We had a brief discussion about the pros and cons of continuing chemotherapy for maintanance when he is experiencing some symptoms ( fatigue, anorexia, dysgeusia ) related to this treatment. He seemed somewhat uncertain whether he wanteed the focus of his care to be on quantity or quality today, however, clearly has been thinking about this prior to this admission. We will have further discussion about his goals of care Mar 16. 4. Weight loss/poor appetite he will contineu with daily Enusre and he reported he has plenty at home once he is discharged. Thank you for this consultation. Time in 1230 Time out 1330 Vital Signs/I&O Vital Signs Date Time Temp Pulse Resp B/P (MAP) Pulse Ox O2 Delivery O2 Flow Rate FiO2 03/03/21 12:40 18 03/03/21 11:48 98.5 74 161/76 (104) 98 Nasal Cannula 2.0 I&O- Last 24 Hours up to 6 AM 03/03/21 06:00 Intake Total 1020 ml Output Total 700 ml Balance 320 ml Laboratory Data Labs 24H Laboratory Tests 2 03/02/21 16:57: Bedside Glucose (Misc Panel) 220H 03/02/21 22:10: Bedside Glucose (Misc Panel) 151H 03/03/21 04:40: Nucleated Red Blood Cells % (auto) 0.0 03/03/21 05:39: Anion Gap 9, Glomerular Filtration Rate > 60.0, Osmolality 260L, Calcium Level 8.8 03/03/21 12:30: Bedside Glucose (Misc Panel) 97 CBC/BMP Laboratory Tests 03/03/21 04:40 03/03/21 05:39 Allergies Coded Allergies: shellfish derived (Verified Allergy, Severe, hives, ANAPHYLAXIS, 02/10/21) Home Medications Scheduled Apixaban (Eliquis) 5 Mg Tablet, 5 MG PO BID, (Reported) ON HOLD PER Aspirin (Aspirin EC) 81 Mg Tablet.dr, 81 MG PO DAILY, (Reported) Atorvastatin Calcium (Atorvastatin Calcium) 20 Mg Tablet, 20 MG PO DAILY, (Reported) Budesonide/Formoterol (Symbicort 160-4.5 Mcg Inhaler) 6 Gm Hfa.aer.ad, 2 PUFF INH BID, (Reported) Cyanocobalamin (Vitamin B-12) (B-12) 1,000 Mcg Tablet, 1,000 MCG PO BID, (Reported) Dexamethasone (Decadron) 4 Mg Tablet, 4 MG PO BID for 3 Days, #36 day before chemotherapy day of chemotherapy day after chemotherapy for six cycles Docusate Sodium (Docusate Sodium) 100 Mg Capsule, 100 MG PO BID, (Reported) Fenofibrate (Fenofibrate) 160 Mg Tablet, 160 MG PO DAILY, (Reported) Folic Acid (Folic Acid) 1 Mg Tablet, 1 MG PO DAILY, (Reported) Ipratropium/Albuterol Sulfate (Iprat-Albut 0.5-3(2.5) mg/3 ml) 3 Ml Ampul.neb, 3 ML INH BID, (Reported) Magnesium Oxide (Magnesium Oxide) 250 Mg Tablet, 250 MG PO DAILY for 30 Days, #30 Metformin HCl (Metformin HCl) 500 Mg Tablet, 500 MG PO BID, (Reported) Metoprolol Tartrate (Metoprolol Tartrate) 25 Mg Tablet, 25 MG PO BID, (Reported) Multivitamins (Thera M Plus Tablet) 1 Each Tablet, 1 TAB PO DAILY, (Reported) Pantoprazole Sodium (Pantoprazole Sodium) 40 Mg Tablet.dr, 40 MG PO DAILY, (Reported) Tiotropium [place] (Spiriva) 18 Mcg Cap.w.dev, 1 INHALATION INH DAILY, (Reported) Scheduled PRN Albuterol Sulfate (Proair Hfa) 8.5 Gm Hfa.aer.ad, 2 PUFF INH Q6H PRN for SHORT NESS OF BREATH, (Reported) Ketorolac Tromethamine (Ketorolac Tromethamine) 10 Mg Tablet, 10 MG PO Q6HP PRN for pain for 5 Days, #20 Naproxen Sodium (Aleve) 220 Mg Tablet, 440 MG PO BID PRN for PAIN LEVEL 1-6, (Reported) Olanzapine (Olanzapine) 10 Mg Tablet, 10 MG PO DAILY PRN for SEVERE NAUSEA for 3 Days, #3 Ondansetron HCl (Ondansetron HCl) 8 Mg Tablet, 8 MG PO Q6H PRN for NAUSEA OR VOMITING, #30 Oxycodone HCl/Acetaminophen (Oxycodone-Acetaminophen 5-325) 1 Each Tablet, 1 TAB PO Q6H PRN for PAIN LEVEL 4-7, (Reported) Katherine MARTIN [employer] 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
[2021-03-03] MEDS: SODIUM CHLORIDE 1 GM TAB PO SCH ×2 (15:40→21:12)
[2021-03-03 18:44] LABS: CREATININE,RANDOM URINE 80.2 MG/DL
[2021-03-03] MEDS: MIRTAZAPINE 15 MG TAB PO SCH (21:13)
[2021-03-04] VITALS (11 sets, daily range): BP systolic 118–163; BP diastolic 56–76; O2SAT 95–97
[2021-03-04] MEDS: PERCOCET 5MG/325MG TAB PO PRN ×5 (03:28→21:24)
[2021-03-04 05:50] LABS: HEMATOCRIT 28.3 % (42.0-52.0); HEMOGLOBIN 9.5 g/dl (13.5-17.5); MEAN CORPUSCULAR HEMOGLOBIN 28.1 pg (27.0-33.0); MEAN CORPUSCULAR HGB CONC 33.6 g/dl (32.0-36.5); MEAN CORPUSCULAR VOLUME 83.7 fl (80.0-96.0); PLATELET COUNT, AUTOMATED 284 10^3/uL (150-450); RED BLOOD COUNT 3.38 10^6/uL (4.30-6.10); WHITE BLOOD COUNT 5.3 10^3/uL (4.0-10.0)
[2021-03-04 06:18] LABS: BLOOD UREA NITROGEN 10 MG/DL (7-18); CALCIUM LEVEL 8.6 MG/DL (8.8-10.2); CARBON DIOXIDE LEVEL 28 MEQ/L (21-32); CHLORIDE LEVEL 90 MEQ/L (98-107); CREATININE FOR GFR 0.55 MG/DL (0.70-1.30); GLOMERULAR FILTRATION RATE > 60.0 (>49); GLUCOSE, FASTING 130 MG/DL (70-100); SODIUM LEVEL 125 MEQ/L (136-145)
[2021-03-04] MEDS: TIOTROPIUM INHALER/CAPSULE (SPIRIVA) INH SCH (07:44)
[2021-03-04] MEDS: IPRATROPIUM 0.5MG/ALBUTEROL 2.5MG INH SOL UD 3ML (DUONEB) INH SCH ×2 (07:44→19:43)
[2021-03-04] MEDS: SYMBICORT 160/4.5MCG INHALER 6GM INH SCH ×2 (07:45→19:43)
[2021-03-04] MEDS ORDERED: FUROSEMIDE 20MG/2ML VIAL (J1940) IV ONE (08:05)
[2021-03-04] MEDS: ASPIRIN 81MG ENTERIC TABLET PO SCH (09:08)
[2021-03-04] MEDS: ATORVASTATIN 20 MG TAB PO SCH (09:08)
[2021-03-04] MEDS: guaiFENesin ER 600 MG TAB PO SCH ×2 (09:08→21:23)
[2021-03-04] MEDS: DOCUSATE SODIUM 100MG CAPSULE PO SCH ×2 (09:08→21:24)
[2021-03-04] MEDS: MULTIVITAMINS/MINERALS THERAP 1 TAB PO SCH (09:08)
[2021-03-04] MEDS: PANTOPRAZOLE 40MG TAB (PROTONIX) PO SCH (09:09)
[2021-03-04] MEDS: SODIUM CHLORIDE 1 GM TAB PO SCH ×2 (09:09→21:24)
[2021-03-04] MEDS: NYSTATIN 500,000 U/5 ML SUSP UDC SS SCH ×4 (09:09→21:23)
[2021-03-04] MEDS: ENOXAPARIN 40MG/0.4ML SYRINGE (J1650 PER 10MG) SC SCH (09:10)
[2021-03-04] MEDS: SODIUM CHLORIDE NASAL 0.65% SPRAY BTL (OCEAN) SCH ×2 (09:10→21:25)
[2021-03-04] MEDS: METOPROLOL TART 25 MG TABLET PO SCH ×2 (09:11→21:24)
[2021-03-04] MEDS: FENOFIBRATE 145MG TABLET (TRICOR) PO SCH (09:11)
[2021-03-04] MEDS: FOLIC ACID 1 MG TAB PO SCH (09:11)
[2021-03-04] MEDS: HumaLOG INSULIN (NovoLOG) PER UNIT SC SCH ×3 (09:11→17:28)
[2021-03-04] MEDS: ONDANSETRON 4 MG TAB PO PRN (09:38)
--- NOTE | 2021-03-04 11:04 | IPN ---
PROGRESS NOTE DATE: 03/04/2021 SUBJECTIVE: Mr. Ratliff is again in considerable amount of pain just this morning. He did not ask for his Percocet and we have now administered that. He feels that he got behind on asking for his pain medication. The DRUM SAW OPERATOR pump has been discontinued with the hope of maintaining him on oral pain control. He is to undergo his radiation therapy today. His vital signs shows a T-max of 98.0 with a heart rate that ranges between 74 and 91 and in sinus rhythm, respiratory rate of 16 to 22 without the use of accessory muscles who is 95% to 100% saturated on 2 liters nasal cannula and his blood pressure is ranging between 153/76 to 163/76. His intake and output over the past 24 hours has been recorded as only 360 in and nothing out. His weight today is still pending today. I suspect the I and O's are incomplete. OBJECTIVE: He has equal breath sounds on either side. I hear just a few scattered rhonchi on either side, most of which clear with coughing. Percussion note is full to the diaphragm. Cardiac examination is without murmurs, clicks, gallops or rubs. I cannot feel his PMI. S1, S2 normal. Abdomen is soft, nontender. Bowel sounds are positive. There is no hepatomegaly. No CVA tenderness. Extremities show no pretibial edema. No calf tenderness. No differential swelling of the upper extremities. Skin is warm, dry and perfused without cyanosis or mottling including that of nailbeds and knees. Neck is supple. There is no jugular venous distention, no subcutaneous emphysema. Trachea is midline. Mouth shows mucous membranes to be pink and moist. Lips and commissures without lesions. His thrush is resolving. Eyes show pupils equal and reactive. Extraocular motions are intact. Sclerae anicteric. Neuro: Cranial nerves II-XII intact. Normal gross motor, gross sensation intact. Gait is not tested. Psychiatric: Awake and alert and oriented times three with appropriate mood and affect and conversational LABORATORY DATA: His white count today is 5.3 with a hemoglobin and hematocrit of 9.5 and 28.3 respectively with a platelet count of 284,000 and stable. Electrolytes show a sodium of 125 with a potassium of 5.0 and a BUN and creatinine of 10 and 0.55. His urine osmolality is 614 with a urine sodium of 104. There is no chest x-ray on him today. IMPRESSION: 1. Metastatic adenocarcinoma from right upper lobe lesion. 2. Chest wall recurrence with malignant pleural effusion secondary to the above. 3. Diabetes. 4. Hypertension. 5. COPD. 6. Inadequate pain control continuing now on oral pain medications. 7. 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 PLAN/DISCUSSION: As far as his pain control is concerned, we are going to encourage him to ask for pain medications prior to the pain becoming intolerable. He is to go for his radiation treatment today. The treatment of SIADH is fluid restriction. I am presuming his I and O's are inaccurate as he is only recorded as having 240 in p.o. and 120 by IV. His DRUM SAW OPERATOR is discontinued and will take p.o. pain medication. If his sodium falls any further, we will be obligated to start sodium replacement. I will leave that to the Medical Hospitalist.
--- NOTE | 2021-03-04 11:14 | IPNPDOC ---
Date Seen The patient was seen on 03/03/21. Progress Note SUBJECTIVE: Patient was seen examined at bedside. Plan for 4th session of radiation therapy. States that his pain persisted approximate 6 out of 10. OBJECTIVE PHYSICAL EXAMINATION: VITAL SIGNS: please see below General: NAD, comfortable HEENT: PERRLA, EOMI, sclerae clear Neck: supple, normal ROM, no JVD Respiratory: Good inspiratory effort, equal breath sounds, rhonchi bilaterally slightly improved on left, no wheeze, no rales, no crackles CVS: RRR, normal S1, S2, no murmurs Abdo: soft, no masses, no hepatosplenomegaly, BS+, no rebound tenderness Extremities: no edema, pulses 2+ MSK: no joint deformities, normal ROM Neuro: no focal neuro deficits, moving all 4 extremities, CN2-12 intact. Strength 5/5 in all 4 extremities. No nystagmus. Psych: calm, cooperative, AAO x 3 LABORATORY DATA, IMAGING STUDIES, MICROBIOLOGY: Please see below. DVT prophylaxis ordered?: Lovenox, 40 mg subcu daily. 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 PROBLEMS: Stage IV NSCL, R chest wall involvement, seeding of PleurX catheter tract: - continue with radiation therapy, today session 4. - pain control with rib blocks by Dr. Bethea. CONCENTRATOR OPERATOR pump. - [place], need to have improved pain control prior to DC. . SIADH - patent hypotonic hypovolemia with elevated urine Na and osmolality - sodium level 126. - likely SIADH in setting of lung malignancy - started patient on sodium chloride tabs 1gm BID - d/w Dr. Johansen, agree with plan. Intractable cough - not responding to tessalon, poor response to mucinex - will trial robitussin with codeine 5 ml q12h prn Type 2 diabetes - ISS and FSBS AC and HS HTN - continue present regimne Sleep disturbance with adjustment disorder, and depressed mood - continue mirtazapine. Dispo: likely DC home after adequate pain control has been achieved. VS, I&O, 24H, Fishbone Vital Signs/I&O Vital Signs Date Time Temp Pulse Resp B/P (MAP) Pulse Ox O2 Delivery O2 Flow Rate FiO2 03/04/21 09:06 18 Nasal Cannula 03/04/21 08:00 97.9 91 153/76 (101) 97 2.0 I&O- Last 24 Hours up to 6 AM 03/04/21 06:00 Intake Total 920 ml Output Total 0 ml Balance 920 ml Laboratory Data 24H LABS Laboratory Tests 2 03/03/21 12:30: Bedside Glucose (Misc Panel) 97 03/03/21 18:03: Bedside Glucose (Misc Panel) 233H 03/03/21 18:05: Urine Osmolality 614, Urine Random Creatinine 80.2, Urine Random Sodium 104 03/04/21 05:25: Nucleated Red Blood Cells % (auto) 0.0, Anion Gap 7L, Glomerular Filtration Rate > 60.0, Calcium Level 8.6L CBC/BMP Laboratory Tests 03/04/21 05:25 ERA DA SILVA MD Mar 04, 2021 11:14
--- NOTE | 2021-03-04 11:21 | IPNPDOC ---
Date Seen The patient was seen on 03/04/21. Progress Note SUBJECTIVE: Patient was seen examined at bedside. Plan for 4th session of radiation therapy. States that his pain is elevated to 7/10. OBJECTIVE PHYSICAL EXAMINATION: VITAL SIGNS: please see below General: NAD, comfortable HEENT: PERRLA, EOMI, sclerae clear Neck: supple, normal ROM, no JVD Respiratory: Good inspiratory effort, equal breath sounds, rhonchi bilaterally slightly improved on left, no wheeze, no rales, no crackles CVS: RRR, normal S1, S2, no murmurs Abdo: soft, no masses, no hepatosplenomegaly, BS+, no rebound tenderness Extremities: no edema, pulses 2+ MSK: no joint deformities, normal ROM Neuro: no focal neuro deficits, moving all 4 extremities, CN2-12 intact. Strength 5/5 in all 4 extremities. No nystagmus. Psych: calm, cooperative, AAO x 3 LABORATORY DATA, IMAGING STUDIES, MICROBIOLOGY: Please see below. DVT prophylaxis ordered?: Lovenox, 40 mg subcu daily. 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 PROBLEMS: Stage IV NSCL, R chest wall involvement, seeding of PleurX catheter tract: - continue with radiation therapy, today session 4. - pain control with rib blocks by Dr. Bethea. - CARRIER LOADER pump has been DCs. Attempt to wean onto oral pain control - oxycodone q4h prn. - continue with bowel regimen - patient [place] area, need to have improved pain control prior to DC. SIADH - patent hypotonic hypovolemia with elevated urine Na and osmolality - sodium level 126, repeat 125. - likely SIADH in setting of lung malignancy - started patient on sodium chloride tabs 1gm BID - will give dose of lasix 20 mg IV - fluid restrict to 1800 cc daily. Intractable cough - slightly improved. - not responding to tessalon, poor response to mucinex - will trial robitussin with codeine 5 ml q12h prn Type 2 diabetes - ISS and FSBS AC and HS HTN - continue present regimen Sleep disturbance with adjustment disorder, and depressed mood - continue mirtazapine. Dispo: likely DC home after adequate pain control has been achieved. VS, I&O, 24H, Fishbone Vital Signs/I&O Vital Signs Date Time Temp Pulse Resp B/P (MAP) Pulse Ox O2 Delivery O2 Flow Rate FiO2 03/04/21 09:06 18 Nasal Cannula 03/04/21 08:00 97.9 91 153/76 (101) 97 2.0 I&O- Last 24 Hours up to 6 AM 03/04/21 06:00 Intake Total 920 ml Output Total 0 ml Balance 920 ml Laboratory Data 24H LABS Laboratory Tests 2 03/03/21 12:30: Bedside Glucose (Misc Panel) 97 03/03/21 18:03: Bedside Glucose (Misc Panel) 233H 03/03/21 18:05: Urine Osmolality 614, Urine Random Creatinine 80.2, Urine Random Sodium 104 03/04/21 05:25: Nucleated Red Blood Cells % (auto) 0.0, Anion Gap 7L, Glomerular Filtration Rate > 60.0, Calcium Level 8.6L CBC/BMP Laboratory Tests 03/04/21 05:25 ERA DA SILVA MD Mar 04, 2021 11:21
[2021-03-04] MEDS: MIRTAZAPINE 15 MG TAB PO SCH (21:24)
[2021-03-05] VITALS (17 sets, daily range): BP systolic 118–156; BP diastolic 58–74; O2SAT 91–98
[2021-03-05] MEDS: PERCOCET 5MG/325MG TAB PO PRN ×5 (01:19→17:10)
[2021-03-05 05:28] LABS: HEMATOCRIT 27.9 % (42.0-52.0); HEMOGLOBIN 9.4 g/dl (13.5-17.5); MEAN CORPUSCULAR HEMOGLOBIN 28.3 pg (27.0-33.0); MEAN CORPUSCULAR HGB CONC 33.7 g/dl (32.0-36.5); PLATELET COUNT, AUTOMATED 324 10^3/uL (150-450); RED BLOOD COUNT 3.32 10^6/uL (4.30-6.10); WHITE BLOOD COUNT 5.7 10^3/uL (4.0-10.0)
[2021-03-05 05:52] LABS: BLOOD UREA NITROGEN 9 MG/DL (7-18); CALCIUM LEVEL 8.7 MG/DL (8.8-10.2); CARBON DIOXIDE LEVEL 29 MEQ/L (21-32); CHLORIDE LEVEL 91 MEQ/L (98-107); CREATININE FOR GFR 0.71 MG/DL (0.70-1.30); GLOMERULAR FILTRATION RATE > 60.0 (>49); GLUCOSE, FASTING 115 MG/DL (70-100); POTASSIUM SERUM 4.7 MEQ/L (3.5-5.1); SODIUM LEVEL 128 MEQ/L (136-145)
[2021-03-05] MEDS: IPRATROPIUM 0.5MG/ALBUTEROL 2.5MG INH SOL UD 3ML (DUONEB) INH SCH ×2 (07:17→20:00)
[2021-03-05] MEDS: SYMBICORT 160/4.5MCG INHALER 6GM INH SCH ×2 (07:18→20:55)
[2021-03-05] MEDS: TIOTROPIUM INHALER/CAPSULE (SPIRIVA) INH SCH (07:18)
[2021-03-05] MEDS: HumaLOG INSULIN (NovoLOG) PER UNIT SC SCH ×3 (07:30→17:09)
[2021-03-05] MEDS ORDERED: PERCOCET PO (08:39)
[2021-03-05] MEDS: NYSTATIN 500,000 U/5 ML SUSP UDC SS SCH ×4 (09:03→21:03)
[2021-03-05] MEDS: DOCUSATE SODIUM 100MG CAPSULE PO SCH ×2 (09:03→21:02)
[2021-03-05] MEDS: MULTIVITAMINS/MINERALS THERAP 1 TAB PO SCH (09:03)
[2021-03-05] MEDS: FENOFIBRATE 145MG TABLET (TRICOR) PO SCH (09:03)
[2021-03-05] MEDS: guaiFENesin ER 600 MG TAB PO SCH ×2 (09:03→21:03)
[2021-03-05] MEDS: SODIUM CHLORIDE 1 GM TAB PO SCH ×3 (09:04→21:03)
[2021-03-05] MEDS: ASPIRIN 81MG ENTERIC TABLET PO SCH (09:04)
[2021-03-05] MEDS: ATORVASTATIN 20 MG TAB PO SCH (09:05)
[2021-03-05] MEDS: ENOXAPARIN 40MG/0.4ML SYRINGE (J1650 PER 10MG) SC SCH (09:07)
[2021-03-05] MEDS: SODIUM CHLORIDE NASAL 0.65% SPRAY BTL (OCEAN) SCH ×2 (09:07→21:05)
[2021-03-05] MEDS: PANTOPRAZOLE 40MG TAB (PROTONIX) PO SCH (09:07)
[2021-03-05] MEDS: FUROSEMIDE 20 MG TAB PO SCH (09:07)
[2021-03-05] MEDS: METOPROLOL TART 25 MG TABLET PO SCH ×2 (09:07→21:03)
[2021-03-05] MEDS: FOLIC ACID 1 MG TAB PO SCH (09:07)
--- NOTE | 2021-03-05 14:49 | IPNPDOC ---
Date Seen The patient was seen on 03/05/21. Progress Note SUBJECTIVE: Patient was seen examined at bedside. Plan for 4th session of radiation therapy. States that his pain is elevated to 7/10. OBJECTIVE PHYSICAL EXAMINATION: VITAL SIGNS: please see below General: NAD, comfortable HEENT: PERRLA, EOMI, sclerae clear Neck: supple, normal ROM, no JVD Respiratory: Good inspiratory effort, equal breath sounds, rhonchi bilaterally slightly improved on left, no wheeze, no rales, no crackles CVS: RRR, normal S1, S2, no murmurs Abdo: soft, no masses, no hepatosplenomegaly, BS+, no rebound tenderness Extremities: no edema, pulses 2+ MSK: no joint deformities, normal ROM Neuro: no focal neuro deficits, moving all 4 extremities, CN2-12 intact. Strength 5/5 in all 4 extremities. No nystagmus. Psych: calm, cooperative, AAO x 3 LABORATORY DATA, IMAGING STUDIES, MICROBIOLOGY: Please see below. DVT prophylaxis ordered?: Lovenox, 40 mg subcu daily. 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 PROBLEMS: Stage IV NSCL, R chest wall involvement, seeding of PleurX catheter tract: - continue with radiation therapy, today session 4. - pain control with rib blocks by Dr. Bethea. - MEDICAL PARASITOLOGIST pump has been DCs. Attempt to wean onto oral pain control - oxycodone q4h prn. - continue with bowel regimen - patient [place] area, need to have improved pain control prior to DC. SIADH - patent hypotonic hypovolemia with elevated urine Na and osmolality -Sodium improving to 128. - likely SIADH in setting of lung malignancy - started patient on sodium chloride tabs 1gm BID -Continue with 20 mg Lasix daily - fluid restrict to 1800 cc daily. Intractable cough - slightly improved. - not responding to tessalon, poor response to mucinex - will trial robitussin with codeine 5 ml q12h prn Type 2 diabetes - ISS and FSBS AC and HS HTN - continue present regimen Sleep disturbance with adjustment disorder, and depressed mood - continue mirtazapine. Dispo: likely DC home after adequate pain control has been achieve VS, I&O, 24H, [place] Vital Signs/I&O Vital Signs Date Time Temp Pulse Resp B/P (MAP) Pulse Ox O2 Delivery O2 Flow Rate FiO2 03/05/21 13:23 20 Nasal Cannula 2.0 03/05/21 12:00 97.7 80 121/61 (81) 95 I&O- Last 24 Hours up to 6 AM 03/05/21 05:59 Intake Total 1340 ml Output Total 725 ml Balance 615 ml Laboratory Data 24H LABS Laboratory Tests 2 03/04/21 16:22: Bedside Glucose (Misc Panel) 151H 03/04/21 21:31: Bedside Glucose (Misc Panel) 222H 03/05/21 05:15: Nucleated Red Blood Cells % (auto) 0.4H, Anion Gap 8, Glomerular Filtration Rate > 60.0, Calcium Level 8.7L 03/05/21 12:03: Bedside Glucose (Misc Panel) 152H CBC/BMP Laboratory Tests 03/05/21 05:15 ERA DA SILVA MD Mar 05, 2021 14:49
[2021-03-05] MEDS: MIRTAZAPINE 15 MG TAB PO SCH (21:03)
[2021-03-06] VITALS (9 sets, daily range): BP systolic 136–164; BP diastolic 69–72; O2SAT 93–99
[2021-03-06] MEDS: PERCOCET 5MG/325MG TAB PO PRN ×3 (00:59→09:20)
[2021-03-06] MEDS: SYMBICORT 160/4.5MCG INHALER 6GM INH SCH (07:10)
[2021-03-06] MEDS: TIOTROPIUM INHALER/CAPSULE (SPIRIVA) INH SCH (07:10)
[2021-03-06] MEDS: IPRATROPIUM 0.5MG/ALBUTEROL 2.5MG INH SOL UD 3ML (DUONEB) INH SCH (07:10)
[2021-03-06 08:07] LABS: HEMATOCRIT 28.8 % (42.0-52.0); HEMOGLOBIN 9.4 g/dl (13.5-17.5); MEAN CORPUSCULAR HEMOGLOBIN 27.5 pg (27.0-33.0); MEAN CORPUSCULAR HGB CONC 32.6 g/dl (32.0-36.5); MEAN CORPUSCULAR VOLUME 84.2 fl (80.0-96.0); PLATELET COUNT, AUTOMATED 359 10^3/uL (150-450); RED BLOOD COUNT 3.42 10^6/uL (4.30-6.10); WHITE BLOOD COUNT 6.5 10^3/uL (4.0-10.0)
[2021-03-06 08:16] LABS: BLOOD UREA NITROGEN 10 MG/DL (7-18); CARBON DIOXIDE LEVEL 29 MEQ/L (21-32); CHLORIDE LEVEL 94 MEQ/L (98-107); CREATININE FOR GFR 0.59 MG/DL (0.70-1.30); GLOMERULAR FILTRATION RATE > 60.0 (>49); GLUCOSE, FASTING 130 MG/DL (70-100); POTASSIUM SERUM 4.8 MEQ/L (3.5-5.1); SODIUM LEVEL 129 MEQ/L (136-145)
[2021-03-06] MEDS: HumaLOG INSULIN (NovoLOG) PER UNIT SC SCH (08:52)
[2021-03-06] MEDS: NYSTATIN 500,000 U/5 ML SUSP UDC SS SCH (09:07)
[2021-03-06] MEDS: ASPIRIN 81MG ENTERIC TABLET PO SCH (09:08)
[2021-03-06] MEDS: SODIUM CHLORIDE 1 GM TAB PO SCH (09:08)
[2021-03-06] MEDS: FENOFIBRATE 145MG TABLET (TRICOR) PO SCH (09:08)
[2021-03-06] MEDS: DOCUSATE SODIUM 100MG CAPSULE PO SCH (09:08)
[2021-03-06] MEDS: guaiFENesin ER 600 MG TAB PO SCH (09:08)
[2021-03-06] MEDS: FOLIC ACID 1 MG TAB PO SCH (09:09)
[2021-03-06] MEDS: ATORVASTATIN 20 MG TAB PO SCH (09:09)
[2021-03-06] MEDS: MULTIVITAMINS/MINERALS THERAP 1 TAB PO SCH (09:09)
[2021-03-06] MEDS: FUROSEMIDE 20 MG TAB PO SCH (09:09)
[2021-03-06] MEDS: PANTOPRAZOLE 40MG TAB (PROTONIX) PO SCH (09:18)
[2021-03-06] MEDS: METOPROLOL TART 25 MG TABLET PO SCH (09:18)
[2021-03-06] MEDS: ENOXAPARIN 40MG/0.4ML SYRINGE (J1650 PER 10MG) SC SCH (09:19)
[2021-03-06] MEDS: SODIUM CHLORIDE NASAL 0.65% SPRAY BTL (OCEAN) SCH (09:19)
--- NOTE | 2021-03-06 10:33 | DS.PDOC ---
Discharge Summary General Date of Admission Mar 01, 2021 at 13:47 Date of Discharge 03/06/21 Discharge Summary PROCEDURES PERFORMED DURING STAY: [None]. ADMITTING DIAGNOSES: 1. . DISCHARGE DIAGNOSES: 1. . COMPLICATIONS/CHIEF COMPLAINT: Chest Wall Pain, Metastatic Lung Cancer. HISTORY OF PRESENT ILLNESS: . HOSPITAL COURSE: . DISCHARGE MEDICATIONS: Please see below. ALLERGIES: Please see below. PHYSICAL EXAMINATION ON DISCHARGE: VITAL SIGNS: Please see below. GENERAL: HEENT: NECK: CARDIOVASCULAR EXAMINATION: RESPIRATORY EXAMINATION: ABDOMINAL EXAMINATION: EXTREMITIES: SKIN: NEUROLOGICAL EXAMINATION: PSYCHIATRIC EXAMINATION: LABORATORY DATA: Please see below. IMAGING: PROGNOSIS: ACTIVITY: [As tolerated]. DIET: DISCHARGE PLAN: DISPOSITION: . DISCHARGE INSTRUCTIONS: 1. . ITEMS TO FOLLOWUP ON ON OUTPATIENT: 1. . DISCHARGE CONDITION: [Stable]. TIME SPENT ON DISCHARGE: minutes. Vital Signs/I&Os Vital Signs Date Time Temp Pulse Resp B/P (MAP) Pulse Ox O2 Delivery O2 Flow Rate FiO2 03/06/21 09:50 20 03/06/21 09:18 92 149/69 03/06/21 08:00 97.2 98 Nasal Cannula 2.0 I&O- Last 24 Hours up to 6 AM 03/06/21 06:00 Intake Total 2880 ml Output Total 1525 ml Balance 1355 ml Laboratory Data Labs 24H Laboratory Tests 2 03/05/21 12:03: Bedside Glucose (Misc Panel) 152H 03/05/21 16:42: Bedside Glucose (Misc Panel) 145H 03/06/21 07:22: Nucleated Red Blood Cells % (auto) 0.0, Anion Gap 6L, Glomerular Filtration Rate > 60.0, Calcium Level 9.0 CBC/BMP Laboratory Tests 03/06/21 07:22 FSBS Laboratory Tests Test 03/05/21 12:03 03/05/21 16:42 Range/Units Bedside Glucose (Misc Panel) 152 145 80-115 MG/DL Discharge Medications Scheduled Apixaban (Eliquis) 5 Mg Tablet, 5 MG PO BID, (Reported) ON HOLD PER Aspirin (Aspirin EC) 81 Mg Tablet.dr, 81 MG PO DAILY, (Reported) Atorvastatin Calcium (Atorvastatin Calcium) 20 Mg Tablet, 20 MG PO DAILY, (Reported) Budesonide/Formoterol (Symbicort 160-4.5 Mcg Inhaler) 6 Gm Hfa.aer.ad, 2 PUFF INH BID, (Reported) Cyanocobalamin (Vitamin B-12) (B-12) 1,000 Mcg Tablet, 1,000 MCG PO BID, (Reported) Dexamethasone (Decadron) 4 Mg Tablet, 4 MG PO BID day before chemotherapy day of chemotherapy day after chemotherapy for six cycles Docusate Sodium (Docusate Sodium) 100 Mg Capsule, 100 MG PO BID, (Reported) Fenofibrate (Fenofibrate) 160 Mg Tablet, 160 MG PO DAILY, (Reported) Folic Acid (Folic Acid) 1 Mg Tablet, 1 MG PO DAILY, (Reported) Ipratropium/Albuterol Sulfate (Iprat-Albut 0.5-3(2.5) mg/3 ml) 3 Ml Ampul.neb, 3 ML INH BID, (Reported) Magnesium Oxide (Magnesium Oxide) 250 Mg Tablet, 250 MG PO DAILY Metformin HCl (Metformin HCl) 500 Mg Tablet, 500 MG PO BID, (Reported) Metoprolol Tartrate (Metoprolol Tartrate) 25 Mg Tablet, 25 MG PO BID, (Reported) Multivitamins (Thera M Plus Tablet) 1 Each Tablet, 1 TAB PO DAILY, (Reported) Pantoprazole Sodium (Pantoprazole Sodium) 40 Mg Tablet.dr, 40 MG PO DAILY, (Reported) Tiotropium [place] (Spiriva) 18 Mcg Cap.w.dev, 1 INHALATION INH DAILY, (Reported) Scheduled PRN Albuterol Sulfate (Proair Hfa) 8.5 Gm Hfa.aer.ad, 2 PUFF INH Q6H PRN for SHORTNESS OF BREATH, (Reported) Ketorolac Tromethamine (Ketorolac Tromethamine) 10 Mg Tablet, 10 MG PO Q6HP PRN for pain Naproxen Sodium (Aleve) 220 Mg Tablet, 440 MG PO BID PRN for PAIN LEVEL 1-6, (Reported) Olanzapine (Olanzapine) 10 Mg Tablet, 10 MG PO DAILY PRN for SEVERE NAUSEA Ondansetron HCl (Ondansetron HCl) 8 Mg Tablet, 8 MG PO Q6H PRN for NAUSEA OR VOMITING Oxycodone HCl/Acetaminophen (Oxycodone-Acetaminophen 5-325) 1 Each Tablet, 1 TAB PO Q6H PRN for PAIN LEVEL 4-7, (Reported) Oxycodone/Acetaminophen (Oxycodone-Acetaminophen 5-325) 1 Each Tablet, 1-2 TAB PO Q4HP PRN for MODERATE PAIN (PS 5-7) Allergies Coded Allergies: shellfish derived (Verified Allergy, Severe, hives, ANAPHYLAXIS, 02/10/21) ERA DA SILVA MD Mar 06, 2021 10:33
[2021-03-06] MEDS ORDERED: SODI1TAB6 PO (10:36)
[2021-03-06] MEDS ORDERED: MUCI600T31 PO (10:36)
[2021-03-06] MEDS ORDERED: ACET1TAB55 PO (10:36)
[2021-03-06] MEDS ORDERED: FURO20TA2 PO (10:36)
--- NOTE | 2021-03-06 12:44 | IPN ---
PROGRESS NOTE DATE: 03/05/2021 Mr. Ratliff's pain is a little bit better today. He has been taking the Percocet on a scheduled basis. We discussed him going home today after his radiation therapy, and I see no reason why he cannot. His vital signs show a maximum temperature (T-max) of 98.5 with a heart rate that ranges between 80-91 in a sinus rhythm, respiratory rate of 16-20 without the use of accessory muscles, who is 91%-98% saturated on 2 liters nasal cannula and whose blood pressure is ranging between 156/72 to 118/58. His intake and output the past 24 hours have been recorded as 1700 in and 725 out, for a positivity of 975 mL. PHYSICAL EXAMINATION: His lungs show normal vesicular sounds. I hear no wheezes, rales, or rhonchi. Percussion note is full to the diaphragm. He is asphalt still operator along the PleurX tract and posterior to it. Cardiac exam is without murmurs, clicks, gallops, or rubs. I cannot feel his point of maximal impulse (PMI). S1 and S2 are normal. Abdomen is soft and nontender. Bowel sounds are positive. There is no hepatomegaly. No costovertebral angle (CVA) tenderness. Extremities show no pretibial edema, no calf tenderness, no differential swelling of the upper extremities. Skin is warm, dry, and perfused without cyanosis or mottling, including that of the nailbeds and knees. Neck is supple. There is no jugular venous distention. No subcutaneous emphysema. Trachea is midline. Mouth shows the mucous membranes to and moist. Lips and commissures without lesions. His thrush is greatly improved. Eyes show his pupils to be equal and reactive. Extraocular motions intact. Sclerae anicteric. Neurologic shows II-XII intact. Normal gross motor, gross sensation intact. Gait is not tested. His white count today is 5.7 with a hemoglobin and hematocrit of 9.4 and 27.9, unchanged from yesterday. Platelet count is 324 and stable. Chemistries today show an improvement in his sodium to 128 with a BUN and creatinine of 9 and 0.71 and a total CO2 of 29. Glucose is 115 with a calcium of 8.7. There is no chest x-ray on him today IMPRESSION: 1. Metastatic adenocarcinoma from right upper lobe lesion. 2. Chest wall recurrence with malignant pleural effusion secondary to the above. 3. Diabetes. 4. Hypertension. 5. Chronic obstructive pulmonary disease (COPD). 6. Inadequate pain control, somewhat improved. 7. Hypotonic hyponatremia, improving. PLAN AND DISCUSSION: I can see no reason why he cannot go home today after his radiation therapy. He lives in [place]. I therefore asked the hospitalist to discharge him today. I, in fact, have written the discharge orders and ordered him Percocets one to two every 4 hours as needed for pain. As he has metastatic cancer, there is no reason to deny him narcotic pain control. We are all hoping that the radiation therapy will start to take effect and reduce his pain. He is already on home oxygen and should not need that ordered. He has a supply at home.
== END 2021-03-06 12:45 | disposition home health service (06) | DRG 694 ==
LOC: M ED 11:36 → M ED INP 11:37 → M PCU 19:03 → OBSVTOIN 03-01 13:47
PROVIDERS: ADMIT Internal Medicine; ATTEND Family Medicine
DX: C79.89 Secondary malignant neoplasm of other specified sites (principal); E22.2 Syndrome of inappropriate secretion of antidiuretic hormone; C34.11 Malignant neoplasm of upper lobe, right bronchus or lung; I48.91 Unspecified atrial fibrillation; E11.9 Type 2 diabetes mellitus without complications; J44.9 Chronic obstructive pulmonary disease, unspecified; I10 Essential (primary) hypertension; Z79.82 Long term (current) use of aspirin; Z79.899 Other long term (current) drug therapy; Z91.013 Allergy to seafood; Z86.711 Personal history of pulmonary embolism; Z86.718 Personal history of other venous thrombosis and embolism; Z92.21 Personal history of antineoplastic chemotherapy; Z92.3 Personal history of irradiation; F17.200 Nicotine dependence, unspecified, uncomplicated; K59.00 Constipation, unspecified

== ENCOUNTER → 2021-03-09 | Outpatient (CLI) | payer OTHER ==
[~2021-03-09] MED LIST changes: +ACET1TAB55 PO; +FURO20TA2 PO; +MUCI600T31 PO; +SODI1TAB6 PO; +SODIUM CHLORIDE 0.9% INJ 10 ML SYR IV PRN
[2021-03-09 16:48] LABS: BASO % 0.1 % (0.0-1.0); EOS # 0.1 10^3/uL (0.0-0.5); EOS % 0.7 % (0.0-3.0); HEMATOCRIT 27.8 % (42.0-52.0); HEMOGLOBIN 8.9 g/dl (13.5-17.5); LYMPH # 0.8 10^3/uL (1.5-5.0); LYMPH % 7.4 % (24.0-44.0); MEAN CORPUSCULAR HEMOGLOBIN 27.5 pg (27.0-33.0); MEAN CORPUSCULAR VOLUME 85.8 fl (80.0-96.0); MONO # 1.1 10^3/uL (0.0-0.8); MONO % 10.2 % (2.0-8.0); NEUTROPHILS # 8.5 10^3/uL (1.5-8.5); NEUTROPHILS % 80.7 % (36.0-66.0); PLATELET COUNT, AUTOMATED 422 10^3/uL (150-450); RED BLOOD COUNT 3.24 10^6/uL (4.30-6.10); WHITE BLOOD COUNT 10.5 10^3/uL (4.0-10.0)
[2021-03-09 17:08] LABS: ALBUMIN 2.5 GM/DL (3.2-5.2); ALT/SGPT 26 U/L (12-78); BILIRUBIN,TOTAL 0.3 MG/DL (0.2-1.0); BLOOD UREA NITROGEN 18 MG/DL (7-18); CALCIUM LEVEL 9.3 MG/DL (8.8-10.2); CARBON DIOXIDE LEVEL 27 MEQ/L (21-32); CHLORIDE LEVEL 97 MEQ/L (98-107); CREATININE FOR GFR 0.88 MG/DL (0.70-1.30); GLOMERULAR FILTRATION RATE > 60.0 (>49); GLUCOSE, FASTING 206 MG/DL (70-100); POTASSIUM SERUM 3.8 MEQ/L (3.5-5.1); SODIUM LEVEL 132 MEQ/L (136-145); TOTAL PROTEIN 6.9 GM/DL (6.4-8.2)
== END ==
LOC: M ONCR 15:47
PROVIDERS: ATTEND General Practice
DX: C78.2 Secondary malignant neoplasm of pleura (principal)
CPT/HCPCS: 36591; 80053; 85025; J1642

== ENCOUNTER 2021-03-11 15:51 | Outpatient (RCR) | payer OTHER ==
[~2021-03-11 15:51] MED LIST changes: -SODIUM CHLORIDE 0.9% INJ 10 ML SYR IV PRN
== END 2021-03-18 ==
LOC: M ONCR 15:51
PROVIDERS: ATTEND General Practice
DX: C78.2 Secondary malignant neoplasm of pleura (principal)

== ENCOUNTER 2021-03-16 12:16 | Emergency (ER) | payer OTHER ==
[~2021-03-16] VITALS: Ht 180.3 cm; Wt 76.4 kg
[2021-03-16] MEDS: COMBIVENT RESPIMAT 100-20MCG INHALER 4GM INH SCH ×3 (13:43→14:37)
[2021-03-16 14:05] LABS: BASO % 0.3 % (0.0-1.0); EOS % 0.2 % (0.0-3.0); HEMATOCRIT 30.8 % (42.0-52.0); HEMOGLOBIN 9.7 g/dl (13.5-17.5); LYMPH # 0.9 10^3/uL (1.5-5.0); LYMPH % 7.5 % (24.0-44.0); MEAN CORPUSCULAR HEMOGLOBIN 27.3 pg (27.0-33.0); MEAN CORPUSCULAR HGB CONC 31.5 g/dl (32.0-36.5); MEAN CORPUSCULAR VOLUME 86.8 fl (80.0-96.0); MONO # 1.2 10^3/uL (0.0-0.8); MONO % 10.7 % (2.0-8.0); NEUTROPHILS # 9.4 10^3/uL (1.5-8.5); NEUTROPHILS % 80.7 % (36.0-66.0); PLATELET COUNT, AUTOMATED 378 10^3/uL (150-450); RED BLOOD COUNT 3.55 10^6/uL (4.30-6.10); WHITE BLOOD COUNT 11.6 10^3/uL (4.0-10.0)
[2021-03-16 14:07] LABS: ABG BASE EXCESS 1.8 (-2.0-2.0); ABG O2 SATURATION 98.2 % (95.0-99.0); ABG PARTIAL PRESSURE CO2 33.6 mmHg (35.0-45.0); ABG PARTIAL PRESSURE O2 105.9 mmHg (75.0-100.0); ABG STANDARD HCO3 26.1 MEQ/L (22.0-26.0); ABG pH (ARTERIAL) 7.489 UNITS (7.350-7.450)
--- NOTE | 2021-03-16 14:14 | REP ---
INDICATION: DYSPNEA/COUGH COMPARISON: 02/28/2021 TECHNIQUE: Portable AP view of the chest FINDINGS: Huanir-[id number]-Nsus in stable position. Cardiac silhouette is normal. Pleuroparenchymal changes involving the right hemithorax are similar to prior examination suggesting chronic change although superimposed acute basilar atelectasis and small pleural effusion cannot be excluded. Left hemithorax is well aerated and clear demonstrating chronic upper lobe emphysematous changes. IMPRESSION: Stable changes primarily involving the right hemithorax. Cannot differentiate between chronic changes and subtle superimposed acute right basilar process. <Electronically signed by Ashok Mills > 03/16/21 [id number]
[2021-03-16 14:36] LABS: ALBUMIN 2.8 GM/DL (3.2-5.2); ALT/SGPT 19 U/L (12-78); BILIRUBIN,DIRECT 0.1 MG/DL (0.0-0.2); BILIRUBIN,TOTAL 0.4 MG/DL (0.2-1.0); BLOOD UREA NITROGEN 21 MG/DL (7-18); CALCIUM LEVEL 10.1 MG/DL (8.8-10.2); CARBON DIOXIDE LEVEL 28 MEQ/L (21-32); CHLORIDE LEVEL 103 MEQ/L (98-107); CK-MB VALUE MASS 1.5 NG/ML (<3.6); CPK CREATINE PHOSPHOKINASE 55 U/L (39-308); GLOMERULAR FILTRATION RATE > 60.0 (>49); GLUCOSE, FASTING 98 MG/DL (70-100); MB/CK RELATIVE INDEX 2.73 (< OR =4); NT-PRO BNP 1992 PG/ML (<125); POTASSIUM SERUM 4.4 MEQ/L (3.5-5.1); SODIUM LEVEL 143 MEQ/L (136-145); THYROXINE (T4) 11.8 UG/DL (4.5-12.0); TROPONIN I < 0.02 NG/ML (< 0.10)
[2021-03-16 16:45] VITALS: BP 167/89
--- NOTE | 2021-03-18 07:29 | ECGEPIP ---
[facility] - ED Test Date: 2021-03-16 Pat Name: TOLU PINK Department: Room: - Gender: Male Removable Prosthodontist: SULEIMAN : 1955 Requested By: Iwona Foley Order Number: [id number] Reading MD: Iwona Foley Measurements Intervals [place] Rate: 89 P: 78 AK: 194 QRS: 51 QRSD: 94 T: 54 QT: 354 QTc: 430 Interpretive Statements Normal sinus rhythm low voltage limb NSTTW abnormalities similar 02/25/21 Electronically Signed on 03-18-2021 7:29:40 EDT by Iwona Foley
--- NOTE | 2021-03-18 10:13 | ED PDOC ---
Post-Departure Follow-Up radiology report faxed to Arelis Nelson Sarah MD Mar 18, 2021 10:13
== END 2021-03-16 17:03 | disposition home or self-care (01) ==
LOC: M ED 12:16
DX: R06.02 Shortness of breath (principal); I48.91 Unspecified atrial fibrillation; I10 Essential (primary) hypertension; F17.200 Nicotine dependence, unspecified, uncomplicated; Z79.82 Long term (current) use of aspirin; Z79.01 Long term (current) use of anticoagulants; Z79.84 Long term (current) use of oral hypoglycemic drugs; Z79.899 Other long term (current) drug therapy; Z91.013 Allergy to seafood